=== PATIENT | female | born 1930 | race Caucasian/White ===

== ENCOUNTER 2016-08-21 13:18 | Inpatient (IN) | payer OTHER ==
[~2016-08-21] VITALS: Ht 149.9 cm; Wt 55.9 kg
[~2016-08-21 13:18] MED LIST: ASPI81TA28 PO; ATOR-14 PO; ATV/1 PO; EPGI10M SC; FRRS300 PO; FURO-85 PO; LEVO75TA5 PO; MAGN400T6 PO; MIRT15TA3 PO; NIFE1TAB53 PO; PANT40TA PO
[2016-08-21] MEDS ORDERED: ONDANSETRON INJ 2 MG/ML 2 ML VIAL IV STA (14:09)
[2016-08-21] MEDS ORDERED: MoRPHine SULFATE 4 MG/ML 1 ML CARP\\VIAL IV STA (14:09)
[2016-08-21] MEDS ORDERED: MoRPHine SULFATE 2 MG/ML CARP ONE (14:13)
[2016-08-21 14:24] LABS: BASO % 0.2 %; BASO ABS # 0.02 K/uL (0-0.2); COMPLETE YES; IG% 0.2 %; LYMPH ABS # 1.14 K/uL (1.2-3.4); MEAN CELL VOLUME 99.3 fL (80-100); MEAN CORPUSCULAR HEMOGLOBIN 33.6 pg (25-34); MEAN CORPUSCULAR HGB CONC 33.8 g/dl (32-36); MEAN PLATELET VOLUME 9.8 fL (7.4-10.4); MONO % 9.7 %; NEUT % 77.9 %; PLATELET COUNT 259 K/uL (130-400); RED BLOOD COUNT 2.92 M/uL (4.2-5.4)
[2016-08-21 14:32] LABS: ALT/SGPT 26 U/L (12-78); AST/SGOT 29 U/L (15-37); BLOOD UREA NITROGEN 30 mg/dl (7-18); BUN/CREATININE RATIO 14.5 (10-20); CALCIUM 8.8 mg/dl (8.5-10.1); CARBON DIOXIDE 24 mmol/L (21-32); CHLORIDE 96 mmol/L (98-107); GLUCOSE 112 mg/dl (70-99); SODIUM 132 mmol/L (136-145)
[2016-08-21 14:36] LABS: INR 1.1 (0.9-1.1); PARTIAL THROMBOPLASTIN RATIO 1.2; PROTHROMBIN TIME (PATIENT) 11.4 SECONDS (9.0-12.0)
[2016-08-21 14:44] LABS: ALKALINE PHOSPHATASE 119 U/L (45-117)
--- NOTE | 2016-08-21 14:53 | DIAGNOSTIC IMAGING REPORT ---
TWO VIEW CHEST CLINICAL HISTORY: Atypical chest pain. Anxiety. FINDINGS: PA and lateral chest radiographs are compared to study dated 06/02/2016. The heart is enlarged and there is atherosclerotic calcification of the thoracic aorta. The pulmonary vasculature is noncongested. Chronic interstitial thickening is similar to previous. There is left basilar consolidation and a small left pleural effusion, new from 06/02/2016. The right lung is grossly clear. There is no pneumothorax. The skeletal structures are osteopenic. Advanced degenerative change and scoliosis is noted in the thoracic spine. IMPRESSION: 1. There is left basilar consolidation and a small left pleural effusion. The appearance is typical for pneumonia. Radiographic follow-up to resolution is recommended. 2. Cardiomegaly without radiographic evidence of congestive failure. Electronically signed by: Oziel Johnson M.D. 08/21/2016 2:51 PM Dictated Date/Time: 08/21/2016 2:45 PM
[2016-08-21] MEDS ORDERED: LEVAQUIN 750MG / 150ML D5W IV STA (14:56)
--- NOTE | 2016-08-21 15:20 | DIAGNOSTIC IMAGING REPORT ---
ABDOMEN AND PELVIS CT WITHOUT CONTRAST CT DOSE: 815.87 mGy.cm HISTORY: Left flank pain. TECHNIQUE: Multiaxial CT images of the abdomen and pelvis were performed without the use of intravenous and oral contrast according to the standard department stone protocol. COMPARISON STUDY: Abdomen and pelvis CT 07/29/2016. FINDINGS: There is a new large pericardial effusion. This measures up to 14 mm in thickness. Aneurysmal dilatation of the ascending thoracic aorta measuring up to 4.5 cm. There are small bilateral pleural effusions. No pneumoperitoneum. No pneumatosis. There is a left hip prosthesis. No acute fractures within the visualized osseous structures. The unenhanced liver, spleen, adrenal glands, and pancreas are unremarkable. Stable bilateral renal hypodense lesions. These are incompletely characterize on this noncontrast study but favor cysts. No renal stones or hydronephrosis. Bladder is not well visualized due to metallic artifact but is likely unremarkable. Gallbladder is not identified and is likely surgically absent. Suboptimal evaluation for bowel pathology due to the lack of intravenous and oral contrast. However, there is no definite bowel wall thickening or obstruction. Colonic diverticulosis. IMPRESSION: 1. No renal stones or hydronephrosis. 2. No definite bowel wall thickening or obstruction. 3. Colonic diverticulosis. 4. Interval development of a large pericardial effusion measuring up to 14 mm in thickness. 5. Interval development of small bilateral pleural effusions. 6. Stable aneurysmal dilatation of the ascending thoracic aorta measuring up to 4.5 cm. Electronically signed by: Akash Santoyo M.D. 08/21/2016 2:58 PM Dictated Date/Time: 08/21/2016 2:40 PM
[2016-08-21 15:55] LABS: MAGNESIUM 2.9 mg/dl (1.8-2.4)
[2016-08-21] MEDS ORDERED: MoRPHine SULFATE 2 MG/ML CARP IV STA (16:39)
[2016-08-21 16:49] LABS: URINE APPEARANCE CLOUDY (CLEAR); URINE BILIRUBIN NEG (NEG); URINE COLOR YELLOW; URINE EPITHELIAL CELL AUTO >30 /lpf (0-5); URINE NITRITE NEG (NEG); URINE SPECIFIC GRAVITY 1.016 (1.000-1.030); UROBILINOGEN NEG (NEG)
[2016-08-21 16:51] LABS: MANUAL MICROSCOPIC REQUIRED? NO; REVIEW REQ? NO
[2016-08-21] MEDS ORDERED: ONDANSETRON INJ 2 MG/ML 2 ML VIAL IV PRN (17:30)
--- NOTE | 2016-08-21 18:17 | History and Physical ---
History & Physical Date & Time of Service: Aug 21, 2016 at 17:53 Chief Complaint: Back Pain, Generally Doesn't Feel Well Primary Care Physician: Yogesh Quevedo III, M.D. History of Present Illness 85 year old female who presents to the ER with reports mid back pain and generally not feeling well. Patient reports the back pain is chronic for her. She reports she started to feel generally sick last night. She reports generalized body aches and chills. She did not take her temperature at home. Patient denies shortness of breath, cough, or sputum production. No chest pain. She denies lightheadedness and dizziness. No abdominal pain, nausea, vomiting, or diarrhea. She reports dysuria. In the ER, patient had CT abd/pelvis for evaluation of renal calculi that was negative for stones however did show a large pericardial effusion. CXR is showing left basilar consolidation. Patient was given Levaquin, morphine, and Zofran. Past Medical/Surgical History Medical Problems: (1) Anemia, chronic disease Status: Chronic (2) Anxiety Status: Chronic (3) CKD (chronic kidney disease), stage IV Status: Chronic (4) GERD (gastroesophageal reflux disease) Status: Chronic (5) H/O echocardiogram Permanent Comment: 03/2015 - EF 60-65%, moderate to severe aortic regurgitation Status: Chronic (6) HLD (hyperlipidemia) Status: Chronic (7) HTN (hypertension) Status: Chronic (8) Hypothyroidism Status: Chronic (9) Palpitations Status: Chronic (10) SIADH (syndrome of inappropriate ADH production) Status: Chronic Surgical Problems: (1) Hx of appendectomy Status: Chronic (2) Hx of cholecystectomy Status: Chronic (3) Hx of dilation and curettage Status: Chronic (4) Status post total hip replacement, left Status: Chronic Family History non contributory due to patient's age Social History Smoking Status: Never Smoker Alcohol Use: none Drug Use: none Marital Status: Housing status: lives with significant other Immunizations History of Influenza Vaccine: Yes Influenza Vaccine Date: Apr 24, 2016 History of Tetanus Vaccine?: Yes Tetanus Immunization Date: Oct 05, 2007 History of Pneumococcal: Yes Pneumococcal Date: Apr 24, 2016 Multi-Drug Resistant Organisms History of MDRO: No Allergies Coded Allergies: Penicillins (Verified Allergy, Intermediate, HIVES, 08/21/16) Iron Sucrose (Unverified Adverse Reaction, Mild, n&v, abd pain, 08/21/16) Home Medications Scheduled Aspirin (Aspirin Ec), 81 MG PO DAILY Atorvastatin (Lipitor), 10 MG PO DAILY Epoetin Rafael (Procrit), 10,000 UNITS SC [id number] Ferrous Sulfate (Ferrous Sulfate), 325 MG PO BID Furosemide (Lasix), 20 MG PO Q2D Levothyroxine Sodium (Levothyroxine Sodium), 75 MCG PO DAILY Magnesium Oxide (Mag-Ox), 400 MG PO DAILY Mirtazapine (Remeron), 7.5 MG PO HS Nifedipine (Nifedipine Er), 1 TAB PO DAILY Pantoprazole (Protonix), 40 MG PO DAILY Scheduled PRN Lorazepam (Ativan), 1 MG PO TID PRN for Anxiety Review of Systems 10 point review of systems was completed with the pertinent positives and negatives noted per the HPI Physical Exam Vital Signs Date Time Temp Pulse Resp B/P Pulse Ox O2 Delivery O2 Flow Rate FiO2 08/21/16 16:27 97 18 134/65 93 Room Air 08/21/16 15:31 88 08/21/16 15:27 89 18 119/52 93 Room Air 08/21/16 13:24 37.1 103 18 158/65 94 Room Air General Appearance: no apparent distress Head: normocephalic Eyes: normal inspection ENT: hearing grossly normal Neck: supple, no JVD Respiratory/Chest: no respiratory distress, + decreased breath sounds Cardiovascular: regular rate, rhythm, no edema, normal peripheral pulses Abdomen/GI: normal bowel sounds, non tender, soft Extremities/Musculoskelatal: normal inspection, no calf tenderness Neurologic/Psych: no motor/sensory deficits, alert, normal mood/affect, oriented x 3 Skin: normal color, warm/dry Diagnostics Laboratory Results Results Past 24 Hours Test 08/21/16 14:00 08/21/16 16:30 Range/Units White Blood Count 9.50 4.8-10.8 K/uL Red Blood Count 2.92 4.2-5.4 M/uL Hemoglobin 9.8 12.0-16.0 g/dL Hematocrit 29.0 37-47 % Mean Corpuscular Volume 99.3 80-100 fL Mean Corpuscular Hemoglobin 33.6 25-34 pg Mean Corpuscular Hemoglobin Concent 33.8 32-36 g/dl Platelet Count 259 130-400 K/uL Mean Platelet Volume 9.8 7.4-10.4 fL Neutrophils (%) (Auto) 77.9 % Lymphocytes (%) (Auto) 12.0 % Monocytes (%) (Auto) 9.7 % Eosinophils (%) (Auto) 0.0 % Basophils (%) (Auto) 0.2 % Neutrophils # (Auto) 7.40 1.4-6.5 K/uL Lymphocytes # (Auto) 1.14 1.2-3.4 K/uL Monocytes # (Auto) 0.92 0.11-0.59 K/uL Eosinophils # (Auto) 0.00 0-0.5 K/uL Basophils # (Auto) 0.02 0-0.2 K/uL RDW Standard Deviation 50.5 36.4-46.3 fL RDW Coefficient of Variation 14.0 11.5-14.5 % Immature Granulocyte % (Auto) 0.2 % Immature Granulocyte # (Auto) 0.02 0.00-0.02 K/uL Prothrombin Time 11.4 9.0-12.0 SECONDS Prothromb Time International Ratio 1.1 0.9-1.1 Activated Partial Thromboplast Time 31.3 21.0-31.0 SECONDS Partial Thromboplastin Ratio 1.2 Sodium Level 132 136-145 mmol/L Potassium Level 5.0 3.5-5.1 mmol/L Chloride Level 96 98-107 mmol/L Carbon Dioxide Level 24 21-32 mmol/L Anion Gap 12.0 3-11 mmol/L Blood Urea Nitrogen 30 7-18 mg/dl Creatinine 2.10 0.60-1.20 mg/dl Est Creatinine Clear Calc Drug Dose 15.4 ml/min Estimated GFR () 24.3 Estimated GFR (Non- 20.9 BUN/Creatinine Ratio 14.5 10-20 Random Glucose 112 70-99 mg/dl Calcium Level 8.8 8.5-10.1 mg/dl Magnesium Level 2.9 1.8-2.4 mg/dl Total Bilirubin 0.6 0.2-1 mg/dl Direct Bilirubin 0.2 0-0.2 mg/dl Aspartate Amino Transf (AST/SGOT) 29 15-37 U/L Alanine Aminotransferase (ALT/SGPT) 26 12-78 U/L Alkaline Phosphatase 119 45-117 U/L Troponin I < 0.015 0-0.045 ng/ml Total Protein 7.6 6.4-8.2 gm/dl Albumin 3.3 3.4-5.0 gm/dl Lipase 297 73-393 U/L Thyroid Stimulating Hormone (TSH) 2.600 0.300-4.500 uIu/ml Free Thyroxine 1.64 0.80-1.60 ng/dl Urine Color YELLOW Urine Appearance CLOUDY CLEAR Urine pH 5.0 4.5-7.5 Urine Specific [place] 1.016 1.000-1.030 Urine Protein 1+ NEG Urine Glucose (UA) NEG NEG Urine Ketones NEG NEG Urine Occult Blood NEG NEG Urine Nitrite NEG NEG Urine Bilirubin NEG NEG Urine Urobilinogen NEG NEG Urine Leukocyte Esterase LARGE NEG Urine WBC (Auto) >30 0-5 /hpf Urine RBC (Auto) 0-4 0-4 /hpf Urine Hyaline Casts (Auto) 5-10 0-5 /lpf Urine Epithelial Cells (Auto) >30 0-5 /lpf Urine Bacteria (Auto) NEG NEG Microbiology Results 08/21/16 Blood Culture, Received Pending 08/21/16 Blood Culture, Received Pending Diagnostic Radiology CXR IMPRESSION: 1. There is left basilar consolidation and a small left pleural effusion. The appearance is typical for pneumonia. Radiographic follow-up to resolution is recommended. 2. Cardiomegaly without radiographic evidence of congestive failure. CT ABD/PELVIS IMPRESSION: 1. No renal stones or hydronephrosis. 2. No definite bowel wall thickening or obstruction. 3. Colonic diverticulosis. 4. Interval development of a large pericardial effusion measuring up to 14 mm in thickness. 5. Interval development of small bilateral pleural effusions. 6. Stable aneurysmal dilatation of the ascending thoracic aorta measuring up to 4.5 cm. Impression Assessment and Plan PNEUMONIA - admit to tele - no signs of sepsis, no hypoxia - s/p Levaquin in ED, will continue with - sputum and blood cultures PERICARDIAL EFFUSION - incidental finding on CT abd/pelvis; large, 14mm - asymptomatic, no shortness of breath, BP stable - discussed with Dr. Hurst, will get echo tonight ATRIAL FLUTTER, RESOLVED - on arrival, patient was in atrial flutter with controlled rate - during my exam, patient converted to NSR - further recommendations as per cardio ABNORMAL U/A - ? UTI - on Levaquin for pneumonia, which will cover urinary source as well - last urine culture grew gutierrez sensitive E. Coli CKD STAGE IV - baseline creat runs in the high 1's - low 2's - noted to be 2.1 today - continue to monitor, avoid nephrotoxic agents when able SIADH - Na+ levels stable CHRONIC ANEMIA - due to CKD, receives Procrit injections - hgb at baseline HTN - BP stable, continue Nifedipine HYPOTHYROIDISM - TSH WNL - continue levothyroxine THORACIC AORTIC ANEURYSM - stable on CT abd today - continue to monitor as an outpatient DVT PROPHYLAXIS - SCDs for now until work up for pericardial effusion completed CODE STATUS - Patient is a full code as per my discussion with her. DISPO - In my clinical judgment this beneficiary meets acute admission criteria, established by [facility], that includes being hospitalized through two midnights. ATTENDING NOTE Patient seen & examined at bedside. Reviewed the above History/Physical and confirmed all the findings in person. Patient comes in with vague symptoms and is found to have LLL Pneumonia and significant Pericardial effusion. Does not seem to be hemodynamically compromised. Urgent Echocardiogram has been ordered. Dr. Hurst will see the patient. Started Levaquin for Pneumonia and possible UTI. Patient has Atrial Flutter with controlled heart rate. Patient is FULL CODE. DVT Prophylaxis: SCDs. Natan Mckeon MD Level of Care Telemetry Resuscitation Status FULL RESUSCITATION VTE Prophylaxis VTE Risk Assessment Done? Y/N: Yes Risk Level: Moderate Given or contraindicated: SCD's
--- NOTE | 2016-08-21 19:46 | ECHOCARDIOGRAM REPORT ---
*NOTICE TO RECEIVING CONSTITUTION PARTY AGENCY This information is strictly Confidential and protected under [place] law. [place] law prohibits you from making any further disclosure of this information unless further disclosure is expressly permitted by the written consent of the person to whom it pertains or is authorized by law. A general authorization for the release of medical or other information is not sufficient for this purpose. Hospital accepts no responsibility if the information is made available to any other person, INCLUDING THE PATIENT. Interpretation Summary * Name: APOLONIA ROMERO Study Date: 08/21/2016 07:16 PM BP: 104/50 mmHg * Patient Location: [facility] HR: 89 * : 1930 (M/d/yyyy) Gender: Female Height: 59 in * Age: 85 yrs Ethnicity: CA Weight: 132 lb * Ordering Physician: Yasir Hurst DO * Performed By: Maria T Barrett RDCS * * Reason For Study: Pericardial Effusion * BSA: 1.5 m2 * -- Conclusions -- * Small to medium sized pericardial effusion. * There are no echocardiographic indications of cardiac tamponade. * The pericardial space suggests organizing pericardial effusion. * The left ventricle is normal in size. * There is moderate concentric left ventricular hypertrophy. * Ejection Fraction = 55-60%. * The right ventricle is normal size. * The left atrial size is normal. * Right atrial size is normal. * Mild aortic regurgitation. Procedure Details * A complete two-dimensional transthoracic echocardiogram was performed (2D, M-mode, Doppler and color flow Doppler). Left Ventricle * The left ventricle is normal in size. * There is moderate concentric left ventricular hypertrophy. * Ejection Fraction = 55-60%. * Left ventricular systolic function is normal. * The left ventricular wall motion is normal. Right Ventricle * The right ventricle is normal size. * The right ventricular systolic function is normal. Atria * The left atrial size is normal. * Right atrial size is normal. * The interatrial septum is intact with no evidence for an atrial septal defect. Mitral Valve * The mitral valve is grossly normal. * Significant mitral regurgitation is absent. Tricuspid Valve * The tricuspid valve anatomy is normal. * Significant tricuspid regurgitation is absent. Aortic Valve * The aortic valve is tricuspid. The leaflet thickness if normal. There is no aortic stenosis, and no significant insufficiency. * Mild aortic regurgitation. Great Vessels * The aortic root and proximal ascending aorta are normal sized. Pericardium/Pleural * Small to medium sized pericardial effusion. * There are no echocardiographic indications of cardiac tamponade. * The pericardial space suggests organizing pericardial effusion. MMode 2D Measurements and Calculations IVSd 1.1 cm IVSs 1.2 cm LVIDd 3.3 cm LVIDs 2.3 cm LVPWd 0.95 cm LVPWs 1.7 cm IVS/LVPW 1.2 FS 30.8 % EDV(Teich) 43.7 ml ESV(Teich) 17.6 ml EF(Teich) 59.7 % EDV(cubed) 35.5 ml ESV(cubed) 11.8 ml EF(cubed) 66.9 % % IVS thick 7.7 % % LVPW thick 81.8 % LV mass(C)d 98.0 grams LV mass(C)dI 63.4 grams/m\S\2 LV mass(C)s 107.4 grams LV mass(C)sI 69.5 grams/m\S\2 SV(Teich) 26.1 ml SI(Teich) 16.9 ml/m\S\2 SV(cubed) 23.8 ml SI(cubed) 15.4 ml/m\S\2 Ao root diam 2.8 cm Ao root area 6.1 cm\S\2 ACS 1.5 cm LA dimension 2.8 cm asc Aorta Diam 3.6 cm LA/Ao 10 LVAd ap4 19.3 cm\S\2 LVLd ap4 7.2 cm EDV(MOD-sp4) 47.3 ml EDV(sp4-el) 44.0 ml LVAs ap4 11.7 cm\S\2 LVLs ap4 6.2 cm ESV(MOD-sp4) 22.6 ml ESV(sp4-el) 18.8 ml EF(MOD-sp4) 52.3 % EF(sp4-el) 57.3 % LVAd ap2 17.7 cm\S\2 LVLd ap2 7.4 cm EDV(MOD-sp2) 36.8 ml EDV(sp2-el) 35.8 ml LVAs ap2 10.3 cm\S\2 LVLs ap2 5.8 cm ESV(MOD-sp2) 17.4 ml ESV(sp2-el) 15.4 ml EF(MOD-sp2) 52.8 % EF(sp2-el) 56.8 % LVLd %diff 3.5 % EDV(MOD-bp) 41.5 ml LVLs %diff -7.15 % ESV(MOD-bp) 20.2 ml EF(MOD-bp) 51.4 % SV(MOD-sp4) 24.8 ml SI(MOD-sp4) 16.0 ml/m\S\2 SV(MOD-sp2) 19.4 ml SI(MOD-sp2) 12.6 ml/m\S\2 SV(MOD-bp) 21.3 ml SI(MOD-bp) 13.8 ml/m\S\2 SV(sp4-el) 25.2 ml SI(sp4-el) 16.3 ml/m\S\2 SV(sp2-el) 20.3 ml SI(sp2-el) 13.2 ml/m\S\2 Doppler Measurements and Calculations MV E max libby 48.0 cm/sec MV A max libby 78.2 cm/sec MV E/A 0.61 MV dec time 0.22 sec Ao V2 max 164.8 cm/sec Ao max PG 10.9 mmHg Ao max PG (full) 6.3 mmHg AI max libby 378.8 cm/sec AI max PG 57.5 mmHg AI dec slope 396.1 cm/sec\S\2 AI P1/2t 280.1 msec LV V1 max PG 4.6 mmHg LV V1 max 107.3 cm/sec PA V2 max 73.4 cm/sec PA max PG 2.2 mmHg PI max libby 76.0 cm/sec PI max PG 2.3 mmHg PI dec slope 124.2 cm/sec\S\2 PI P1/2t 179.2 msec TR max libby 193.6 cm/sec
[2016-08-21] MEDS ORDERED: LEVOFLOXACIN CONSULT ACTIVE PRN (19:49)
[2016-08-21 20:16] VITALS: BP 128/70; PULSE 88; TEMP 37.5; O2SAT 94; Ht 149.9 cm; Wt 55.9 kg
[2016-08-21] MEDS: FUROSEMIDE 20 MG TAB PO SCH (20:47)
[2016-08-21] MEDS: LORAZEPAM 1 MG TAB PO PRN (20:47)
[2016-08-21] MEDS: MIRTAZAPINE TAB 15 MG TAB PO SCH (20:48)
[2016-08-21] MEDS: ACETAMINOPHEN 325 MG TAB PO PRN (20:48)
[2016-08-21] MEDS: FERROUS SULFATE 325 MG TAB PO SCH (20:48)
--- NOTE | 2016-08-21 20:53 | EMERGENCY ROOM VISIT NOTE ---
History Report prepared by Unique: Bayron Velázquez Under the Supervision of: Dr. Leon Fry M.D. First contact with patient: 13:58 Chief Complaint: PAIN (GENERALIZED) Stated Complaint: PAIN, ANXIETY History of Present Illness The patient is an 85 year old female who presents to the Emergency Room with complaints of persistent left-sided abdominal pain that started yesterday. The patient describes the discomfort as an ache. She notes that she tried using a heating pad at home and this relieved her symptoms a little. The discomfort is also worse with movement. It radiates to her back. The patient also complains of urinary symptoms including less frequency and burning when she urinates. The patient denies a recent fall, cold symptoms, chest pain, shortness of breath. vomiting, diarrhea, or cough. She did have some shortness of breath last night but she thinks it was secondary to the pain. Source of History: patient Onset: yesterday Position: abdomen (LLQ) Quality: ache Timing: other (persistent) Modifying Factors (Worsening): movement Modifying Factors (Relieving): other (heating pad) Associated Symptoms: + urinary symptoms (less frequency and burning with urination), No SOB, No chest pain, No cough, No diarrhea, No vomiting Note: Denies: recent fall or cold symptoms Review of Systems See HPI for pertinent positives & negatives. A total of 10 systems reviewed and were otherwise negative. Past Medical & Surgical Medical Problems: (1) Anemia, chronic disease (2) Anxiety (3) CKD (chronic kidney disease), stage IV (4) GERD (gastroesophageal reflux disease) (5) H/O echocardiogram (6) HLD (hyperlipidemia) (7) HTN (hypertension) (8) Hypothyroidism (9) Palpitations (10) SIADH (syndrome of inappropriate ADH production) Surgical Problems: (1) Hx of appendectomy (2) Hx of cholecystectomy (3) Hx of dilation and curettage (4) Status post total hip replacement, left Family History FHx: heart disease Hypertension Social History Smoking Status: Never Smoker Alcohol Use: none Drug Use: none Marital Status: Housing Status: lives with family Occupation Status: retired Current/Historical Medications Scheduled Aspirin (Aspirin Ec), 81 MG PO DAILY Atorvastatin (Lipitor), 10 MG PO DAILY Epoetin Rafael (Procrit), 10,000 UNITS SC [id number] Ferrous Sulfate (Ferrous Sulfate), 325 MG PO BID Furosemide (Lasix), 20 MG PO Q2D Levothyroxine Sodium (Levothyroxine Sodium), 75 MCG PO DAILY Magnesium Oxide (Mag-Ox), 400 MG PO DAILY Mirtazapine (Remeron), 7.5 MG PO HS Nifedipine (Nifedipine Er), 1 TAB PO DAILY Pantoprazole (Protonix), 40 MG PO DAILY Scheduled PRN Lorazepam (Ativan), 1 MG PO TID PRN for Anxiety Allergies Coded Allergies: Penicillins (Verified Allergy, Intermediate, HIVES, 08/21/16) Iron Sucrose (Unverified Adverse Reaction, Mild, n&v, abd pain, 08/21/16) Physical Exam Vital Signs Date Time Temp Pulse Resp B/P Pulse Ox O2 Delivery O2 Flow Rate FiO2 08/21/16 16:27 97 18 134/65 93 Room Air 08/21/16 15:31 88 08/21/16 15:27 89 18 119/52 93 Room Air 08/21/16 13:24 37.1 103 18 158/65 94 Room Air Physical Exam Constitutional: Vital signs reviewed. Eyes: Pupils are equal round reactive to light. Conjunctiva are noninjected. ENT: Pharynx is clear without erythema or exudate. Mucous membranes are moist. Neck supple without meningeal signs. Respiratory: Clear to auscultation bilaterally. Breath sounds are equal bilaterally. Cardiovascular: Regular rate and rhythm. No rubs or gallops. GI: Soft, nondistended with mild tenderness to the left mid abdomen. Bowel sounds are present. Musculoskeletal: No CVA tenderness. No lower extremity tenderness. Integumentary: No cyanosis. Neurological: The patient is awake and alert. No focal deficits. Psychiatric: Anxious appearing. Medical Decision & Procedures ER Provider Diagnostic Interpretation: Other radiology results as stated below per my review and the radiologist's interpretation: TWO VIEW CHEST CLINICAL HISTORY: Atypical chest pain. Anxiety. FINDINGS: PA and lateral chest radiographs are compared to study dated 06/02/2016. The heart is enlarged and there is atherosclerotic calcification of the thoracic aorta. The pulmonary vasculature is noncongested. Chronic interstitial thickening is similar to previous. There is left basilar consolidation and a small left pleural effusion, new from 06/02/2016. The right lung is grossly clear. There is no pneumothorax. The skeletal structures are osteopenic. Advanced degenerative change and scoliosis is noted in the thoracic spine. IMPRESSION: 1. There is left basilar consolidation and a small left pleural effusion. The appearance is typical for pneumonia. Radiographic follow-up to resolution is recommended. 2. Cardiomegaly without radiographic evidence of congestive failure. Electronically signed by: Oziel Johnson M.D. 08/21/2016 2:51 PM Dictated Date/Time: 08/21/2016 2:45 PM ABDOMEN AND PELVIS CT WITHOUT CONTRAST CT DOSE: 815.87 mGy.cm HISTORY: Left flank pain. TECHNIQUE: Multiaxial CT images of the abdomen and pelvis were performed without the use of intravenous and oral contrast according to the standard department stone protocol. COMPARISON STUDY: Abdomen and pelvis CT 07/29/2016. FINDINGS: There is a new large pericardial effusion. This measures up to 14 mm in thickness. Aneurysmal dilatation of the ascending thoracic aorta measuring up to 4.5 cm. There are small bilateral pleural effusions. No pneumoperitoneum. No pneumatosis. There is a left hip prosthesis. No acute fractures within the visualized osseous structures. The unenhanced liver, spleen, adrenal glands, and pancreas are unremarkable. Stable bilateral renal hypodense lesions. These are incompletely characterize on this noncontrast study but favor cysts. No renal stones or hydronephrosis. Bladder is not well visualized due to metallic artifact but is likely unremarkable. Gallbladder is not identified and is likely surgically absent. Suboptimal evaluation for bowel pathology due to the lack of intravenous and oral contrast. However, there is no definite bowel wall thickening or obstruction. Colonic diverticulosis. IMPRESSION: 1. No renal stones or hydronephrosis. 2. No definite bowel wall thickening or obstruction. 3. Colonic diverticulosis. 4. Interval development of a large pericardial effusion measuring up to 14 mm in thickness. 5. Interval development of small bilateral pleural effusions. 6. Stable aneurysmal dilatation of the ascending thoracic aorta measuring up to 4.5 cm. Electronically signed by: Akash Santoyo M.D. 08/21/2016 2:58 PM Dictated Date/Time: 08/21/2016 2:40 PM Laboratory Results 08/21/16 14:00 Red Blood Count 2.92, Mean Corpuscular Volume 99.3, Mean Corpuscular Hemoglobin 33.6, Mean Corpuscular Hemoglobin Concent 33.8, Mean Platelet Volume 9.8, Neutrophils (%) (Auto) 77.9, Lymphocytes (%) (Auto) 12.0, Monocytes (%) (Auto) 9.7, Eosinophils (%) (Auto) 0.0, Basophils (%) (Auto) 0.2, Neutrophils # (Auto) 7.40, Lymphocytes # (Auto) 1.14, Monocytes # (Auto) 0.92, Eosinophils # (Auto) 0.00, Basophils # (Auto) 0.02 08/21/16 14:00 Test 08/21/16 14:00 08/21/16 16:30 White Blood Count 9.50 K/uL (4.8-10.8) Red Blood Count 2.92 M/uL (4.2-5.4) Hemoglobin 9.8 g/dL (12.0-16.0) Hematocrit 29.0 % (37-47) Mean Corpuscular Volume 99.3 fL (80-100) Mean Corpuscular Hemoglobin 33.6 pg (25-34) Mean Corpuscular Hemoglobin Concent 33.8 g/dl (32-36) Platelet Count 259 K/uL (130-400) Mean Platelet Volume 9.8 fL (7.4-10.4) Neutrophils (%) (Auto) 77.9 % Lymphocytes (%) (Auto) 12.0 % Monocytes (%) (Auto) 9.7 % Eosinophils (%) (Auto) 0.0 % Basophils (%) (Auto) 0.2 % Neutrophils # (Auto) 7.40 K/uL (1.4-6.5) Lymphocytes # (Auto) 1.14 K/uL (1.2-3.4) Monocytes # (Auto) 0.92 K/uL (0.11-0.59) Eosinophils # (Auto) 0.00 K/uL (0-0.5) Basophils # (Auto) 0.02 K/uL (0-0.2) RDW Standard Deviation 50.5 fL (36.4-46.3) RDW Coefficient of Variation 14.0 % (11.5-14.5) Immature Granulocyte % (Auto) 0.2 % Immature Granulocyte # (Auto) 0.02 K/uL (0.00-0.02) Erythrocyte Sedimentation Rate 44 mm/hr (0-21) Prothrombin Time 11.4 SECONDS (9.0-12.0) Prothromb Time International Ratio 1.1 (0.9-1.1) Activated Partial Thromboplast Time 31.3 SECONDS (21.0-31.0) Partial Thromboplastin Ratio 1.2 Anion Gap 12.0 mmol/L (3-11) Est Creatinine Clear Calc Drug Dose 15.4 ml/min Estimated GFR () 24.3 Estimated GFR (Non- 20.9 BUN/Creatinine Ratio 14.5 (10-20) Calcium Level 8.8 mg/dl (8.5-10.1) Magnesium Level 2.9 mg/dl (1.8-2.4) Total Bilirubin 0.6 mg/dl (0.2-1) Direct Bilirubin 0.2 mg/dl (0-0.2) Aspartate Amino Transf (AST/SGOT) 29 U/L (15-37) Alanine Aminotransferase (ALT/SGPT) 26 U/L (12-78) Alkaline Phosphatase 119 U/L (45-117) Troponin I < 0.015 ng/ml (0-0.045) Total Protein 7.6 gm/dl (6.4-8.2) Albumin 3.3 gm/dl (3.4-5.0) Lipase 297 U/L (73-393) Thyroid Stimulating Hormone (TSH) 2.600 uIu/ml (0.300-4.500) Free Thyroxine 1.64 ng/dl (0.80-1.60) Urine Color YELLOW Urine Appearance CLOUDY (CLEAR) Urine pH 5.0 (4.5-7.5) Urine Specific Conklin 1.016 (1.000-1.030) Urine Protein 1+ (NEG) Urine Glucose (UA) NEG (NEG) Urine Ketones NEG (NEG) Urine Occult Blood NEG (NEG) Urine Nitrite NEG (NEG) Urine Bilirubin NEG (NEG) Urine Urobilinogen NEG (NEG) Urine Leukocyte Esterase LARGE (NEG) Urine WBC (Auto) >30 /hpf (0-5) Urine RBC (Auto) 0-4 /hpf (0-4) Urine Hyaline Casts (Auto) 5-10 /lpf (0-5) Urine Epithelial Cells (Auto) >30 /lpf (0-5) Urine Bacteria (Auto) NEG (NEG) Laboratory results as reviewed by me. Medications Administered Medications (Trade) Dose Ordered Sig/Jassi Route Start Time Stop Time Status Last Admin Dose Admin Ondansetron HCl (Zofran Inj) 4 mg NOW STAT IV 08/21/16 14:09 08/21/16 14:11 DC 08/21/16 14:17 4 MG Morphine Sulfate (MoRPHine SULFATE INJ) 2 mg STK-MED ONCE .ROUTE 08/21/16 14:13 08/21/16 14:14 DC 08/21/16 14:18 2 MG Levofloxacin (Levaquin / D5W) 750 mg NOW STAT IV 08/21/16 14:56 08/21/16 14:59 DC 08/21/16 15:27 750 MG Morphine Sulfate (MoRPHine SULFATE INJ) 2 mg NOW STAT IV 08/21/16 16:39 08/21/16 16:40 DC 08/21/16 16:49 2 MG ECG Indication: abdominal pain Rate (beats per minute): 103 Rhythm: atrial flutter Findings: PVC, other (non-specific t-wave changes) ED Course 1400: The patient was evaluated in room A12. A complete history and physical exam was performed. 1409: Ordered Zofran Inj 4 mg IV, Morphine Sulfate 2 mg IV. 1413: Ordered Morphine Sulfate 2 mg .ROUTE. 1456: Ordered Levofloxacin 750 mg IV. 1530: At this time, I reevaluated the patient and discussed the test results with her. She agreed to stay in the hospital. 1625: At this time, I discussed the patient's case with Dr. Mckeon - Blayne Tracy and he agreed to accept the patient for further evaluation. Medical Decision this is an 85-year-old female presents with left flank pain.differential diagnosis includes strain, pyelonephritis, UTI, kidney stone, pneumonia, cardiac. I did perform a limited focused review of portions of the patient's old chart on the electronic medical record. The patient was admitted on July 29 for generalized weakness and viral gastroenteritis. She has a baseline creatine of 2 and anemia on chronic disease. She had a CT of abdomen/ pelvis scan which was nonspecific. I did evaluate the patient as noted above. She is presenting with left-sided flank pain which seems to be better with heating pads and worse with movement. She did have some shortness of breath yesterday but denies it today. IV access was established. The patient was placed on a continuous pvc monitor. I did treat her with IV Zofran and morphine. I did order and personally review the patient's 12-lead EKG and chest x-ray as described above. She does have a new onset atrial flutter. She does appear to have a left-sided pneumonia. I did order blood cultures and she was treated with IV Levaquin. I did order and review the patient's blood work as noted in the electronic medical record. She does have chronic anemia. She does have hyponatremia. I did order a CT of the abdomen and pelvis. I did review the images myself as well as the radiology report as described above. CT scan demonstrates pleural effusions as well as a pericardial effusion. I did discuss the test results with the patient. She had continued pain and was given additional IV morphine. I did discuss the case with the hospitalist and employment case manager. Consults Time Called: 1620 Consulting Physician: Dr. Mckeon - Hospitalist Rossana Returned Call: 1625 At this time, I discussed the patient's case with Dr. Mckeon and he agreed to accept the patient for further evaluation. Impression Primary Impression: Pneumonia involving left lung Additional Impressions: New onset atrial flutter Pericardial effusion Bilateral pleural effusion Scribe Attestation The scribe's documentation has been prepared under my direct and personally reviewed by me in its entirety. I confirm that the note above accurately reflects all work, treatment, procedures, and medical decision making performed by me. Departure Information Dispostion Being Evaluated By Hospitalist Referrals Yogesh Quevedo III, M.D. (PCP) Problem Qualifiers Primary Impression: Pneumonia involving left lung Pneumonia type: due to unspecified organism Lung location: lower lobe of lung Qualified Codes: J18.9 - Pneumonia, unspecified organism
[2016-08-21 23:51] VITALS: BP 123/67; PULSE 83; TEMP 36.5; O2SAT 98
[2016-08-22] VITALS (7 sets, daily range): BP systolic 107–137; BP diastolic 57–76; PULSE 68–92; TEMP 36.7–37.1; O2SAT 94–99
[2016-08-22] MEDS ORDERED: SODIUM CHLORIDE 0.9% 500ML 500 ML IV STA (04:56)
[2016-08-22] MEDS ORDERED: NURSING VERBAL MED ORDER ONE (05:00)
[2016-08-22] MEDS: LEVOTHYROXINE 75 MCG TAB PO SCH (05:01)
[2016-08-22 06:00] LABS: BUN/CREATININE RATIO 14.5 (10-20); CALCIUM 8.4 mg/dl (8.5-10.1); CREATININE 2.5 mg/dl (0.60-1.20); POTASSIUM 5.6 mmol/L (3.5-5.1)
[2016-08-22 06:54] LABS: HEMATOCRIT 25.5 % (37-47); MEAN CORPUSCULAR HEMOGLOBIN 33.3 pg (25-34); MEAN PLATELET VOLUME 9.9 fL (7.4-10.4); PLATELET COUNT 200 K/uL (130-400); RED BLOOD COUNT 2.55 M/uL (4.2-5.4); WHITE BLOOD COUNT 8.76 K/uL (4.8-10.8)
[2016-08-22 07:01] LABS: MEAN CORPUSCULAR HGB CONC 33.3 g/dl (32-36)
[2016-08-22] MEDS: FERROUS SULFATE 325 MG TAB PO SCH ×2 (07:41→20:04)
[2016-08-22] MEDS: ATORVASTATIN 10 MG TAB PO SCH (07:41)
[2016-08-22] MEDS: ASPIRIN 81 MG ECTAB PO SCH (07:41)
[2016-08-22] MEDS: MAGNESIUM OXIDE 400 MG TAB PO SCH (07:42)
[2016-08-22] MEDS: PANTOprazole SOD 40 MG TAB PO SCH (07:42)
[2016-08-22] MEDS: ACETAMINOPHEN 325 MG TAB PO PRN ×2 (07:42→18:25)
[2016-08-22] MEDS ORDERED: NIFEdipine 30 MG CR TAB PO SCH (09:00)
[2016-08-22] MEDS ORDERED: METOPROLOL TARTRATE 25 MG TAB PO STA (09:26)
[2016-08-22] MEDS ORDERED: METOPROLOL TARTRATE 1 MG/ML VIAL IV PRN (09:30)
[2016-08-22] MEDS: LORAZEPAM 1 MG TAB PO PRN ×2 (11:41→20:07)
--- NOTE | 2016-08-22 12:08 | CARDIOLOGY CONSULTATION ---
DATE OF CONSULTATION: 08/22/2016 REFERRING PHYSICIAN: Rossana hudson. REASON FOR CONSULTATION: Pericardial effusion. HISTORY OF PRESENT ILLNESS: This is an 85-year-old female who denies any previous past cardiac history. She lives independently and had been in a good state of health until yesterday, she began to have generalized body aches and nonspecific complaints. A CT of the abdomen was obtained and the interpretation by the radiologist was that there was large pericardial effusion. An echocardiogram was completed last night, which I reviewed immediately and the pericardial effusion is small to medium sized at best. No evidence of cardiac tamponade and the appearance of the pericardial effusion is organized, which means that it has been there for a while. Her chest x-ray suggests possible pneumonia and the patient has been started on antibiotics. She has had no fever, chills or productive cough. She was admitted in atrial flutter and then converted to normal sinus and now she is back in atrial flutter with controlled heart rate. She has no cardiac complaints. She denies pleuritic chest pain. She has not had any shortness of breath. No dizziness or lightheadedness. She denies heart palpitations or tachycardia. ALLERGIES: IRON AND PENICILLIN. PAST MEDICAL HISTORY: As outlined above, the patient has no significant cardiac history. She does have a history of chronic kidney disease with anemia. No prior history of diabetes or strokes. She has been treated for hypothyroidism and hypertension. FAMILY MEDICAL HISTORY: Noncontributory. SOCIAL HISTORY: The patient is a lifelong nonsmoker. REVIEW OF SYSTEMS: A 10-point review of systems is negative except for the history of chief complaint. PHYSICAL EXAMINATION: GENERAL: She is alert and oriented. VITAL SIGNS: Blood pressure is 130/60 and pulse is regular at 97. She is afebrile. HEENT: She is normocephalic. Pupils are equal and reactive to light. Extraocular muscles are intact bilaterally. NECK: The neck veins are flat. Carotids have good upstrokes bilaterally without bruits. Thyroid is nonpalpable. RESPIRATORY: Breath sounds equal bilaterally and clear to auscultation. CARDIOVASCULAR: Heart has a regular rhythm. Normal S1 and S2. No S3 or S4. No cardiac rubs. GASTROINTESTINAL: Abdomen is soft and nontender without organomegaly. EXTREMITIES: Free of edema, digit clubbing, or cyanosis. NEUROLOGIC: Grossly intact. SKIN: Warm to touch. LYMPH NODES: Negative to palpation. LABORATORY DATA: WBC count is 9.5 and hemoglobin is 9.8. IMPRESSION: 1. Pneumonia by radiographic evidence. 2. Pericardial effusion that appears to be old and organized and asymptomatic per the patient. 3. Paroxysmal atrial flutter. 4. Chronic renal insufficiency. 5. Chronic anemia. RECOMMENDATIONS: I do not believe any immediate treatment other than antibiotics to treat this patient's pneumonia should be given for the pericardial effusion. She does have a chronic anemia and paroxysmal atrial flutter. I would hold off on any full anticoagulation for now and just provide DVT prophylaxis. Her sed rate is a little bit elevated. She does not have a white count elevation, which is troublesome to me with a diagnosis of possible bacterial pneumonia. If her left lower lung consolidation does not improve with antibiotics, then we should consider a pulmonary consult to find other etiologies besides bacterial pneumonia as a cause of the consolidation. I have ordered an NORTH and rheumatoid factor, but they should be of low yield. We will follow along with you during her hospital stay.
--- NOTE | 2016-08-22 16:01 | DIAGNOSTIC IMAGING REPORT ---
CT OF THE CHEST WITHOUT IV CONTRAST CLINICAL HISTORY: Pericardial effusion. COMPARISON STUDY: Chest CT April 06, [address] of the abdomen and pelvis August 21, 2016 CT DOSE: 320.63 mGycm TECHNIQUE: Axial images of the chest were obtained without IV contrast. Images were reviewed in the axial, sagittal, and coronal planes. IV contrast was not administered for this examination. FINDINGS: No enlarged axillary, mediastinal or hilar lymph nodes are present. Dilatation of the thoracic aorta is similar to CT of April 06, 2015. The ascending aorta measures 4.5 cm. Moderate cardiomegaly is noted. A moderate to large pericardial effusion is similar to CT of August 21, 2016. The effusion is low attenuation. The central airways are patent. The lungs are suboptimally assessed due to respiratory motion. Moderate left and small right pleural effusions are present. Associated lingular, bilateral lower lobe opacities favor atelectasis. There is no pneumothorax. No suspicious osseous lesions are shown within the bony thorax. IMPRESSION: 1. Moderate to large pericardial effusion, similar to CT of August 21, 2016. 2. Moderate left and small right pleural effusions with associated lingular and bilateral lower lobe opacities which favor atelectasis. 3. Moderate cardiomegaly. 4. No significant change in aneurysmal dilatation of the ascending aorta since CT of April 06, 2015. Electronically signed by: Hayder Barber M.D. 08/22/2016 3:59 PM Dictated Date/Time: 08/22/2016 3:51 PM
[2016-08-22 18:40] LABS: LYME DISEASE AB IGG NEG (NEG); LYME DISEASE AB IGM NEG (NEG)
[2016-08-22] MEDS: MIRTAZAPINE TAB 15 MG TAB PO SCH (20:05)
[2016-08-22] MEDS: METOPROLOL TARTRATE 25 MG TAB PO SCH (20:05)
--- NOTE | 2016-08-22 21:09 | Progress Note ---
Internal Med Progress Note Date of Service: Aug 22, 2016. Provider Documentation: SUBJECTIVE: feels fine , no complain of SOB , chest pain or LEYVA no orthopnea afebrile denies of cough or respiratory distress feels much better than yesterday OBJECTIVE: Vital Signs-as noted below Exam: General Appearance: elderly female , some what anxious , no apparent distress Head: normocephalic Eyes: normal inspection ENT: hearing grossly normal Neck: supple, no thyromegaly , trachea midline Respiratory/Chest: no respiratory distress, + decreased breath sounds Cardiovascular: regular rate, rhythm, no edema, normal peripheral pulses Abdomen/GI: normal bowel sounds, non tender, soft Extremities/Musculoskeletal: trace bilat lower ext edema Neurologic/Psych: no motor/sensory deficits, alert, normal mood/affect, oriented x 3 Skin: normal color, warm/dry Lab data as noted below. ASSESSMENT & PLAN: PERICARDIAL EFFUSION - incidental finding on CT abd/pelvis; large, 14mm - asymptomatic, no shortness of breath, BP stable - ECHO : Small to medium sized pericardial effusion. There are no echocardiographic indications of cardiac tamponade. The pericardial space suggests organizing pericardial effusion. The left ventricle is normal in size. There is moderate concentric left ventricular hypertrophy. Ejection Fraction = 55-60%. -CT chest : moderate to large pericardial effusion , moderate left and small rt pleural effusions with associated lingular and bilat lower lobe opacities which favor atelectasis _Cardiology consult appreciated -no evidence of cardiac tamponade or hemodynamic compromise monitor in tele given left sided pleural effusion associated with pericardial effusion -need to evaluate for inflammatory /Rheumatoid disease -ordered for NORTH , rheumatoid factor -will have Rheum eval if lab reports are abnormal -ESR mildly elevated PNEUMONIA - Cxary Left lower lobe infiltrate - cont Levaquin - sputum and blood cultures ordered CT chest moderate left and rt sided pleural effusion -Pulmonology eval requested ATRIAL FLUTTER, - paroxysmal atrial flutter with controlled rate -new finding -pt converted to sinus rhythm intermittently no symptom of dizzy spell or lightheadedness HR remains in low 80's -rate controlled -no IV anticoagulation until further evaluation for pericardial effusion - cardiology following -low dose beta maliha added for rhythm control -hold for bradycardia ABNORMAL U/A - ? UTI - on Levaquin for pneumonia, which will cover urinary source as well - last urine culture grew gutierrez sensitive E. Coli -follow urine culture -report pending CKD STAGE IV - baseline creat runs in the high 1's - low 2's - noted to be 2.1 today - continue to monitor, avoid nephrotoxic agents when able -nephrology consulted HYPERKALEMIA: k 5.6 -due to above ordered for Kayexalate keep K level ~ 4 given cardiac arrhythmia /paroxysmal afib /flutter repeat PRP in AM low K diet Nephrology consulted -pt follows with Dr Hwang in put pt SIADH - with chronic hyponatremia -follow PRP CHRONIC ANEMIA - due to CKD, receives Procrit injections - hgb at baseline HTN - BP stable, -hold Nifedipine started on low dose Lopressor 12.5 mg PO BID HYPOTHYROIDISM - TSH WNL - continue levothyroxine THORACIC AORTIC ANEURYSM - stable on CT abd today - continue to monitor as an outpatient DVT PROPHYLAXIS - sub q heparin CODE STATUS - Patient is a full code DVT PROPHYLAXIS sub q heparin DISPOSITION lives at home with and daughter PT/OT eval prior to discharge may need 2 step 02 assessment if continue to require supplemental 02 social service consulted for discharge planning Medicine follow up with Dr Quevedo Vital Signs: Date Time Temp Pulse Resp B/P Pulse Ox O2 Delivery O2 Flow Rate FiO2 08/22/16 20:08 107/62 08/22/16 20:00 Nasal Cannula 1.5 08/22/16 19:04 37.1 92 22 137/57 94 Nasal Cannula 1.5 08/22/16 16:00 Nasal Cannula 2.0 08/22/16 12:00 Nasal Cannula 2.0 08/22/16 11:59 36.7 68 16 124/72 97 Nasal Cannula 2.0 08/22/16 08:00 Nasal Cannula 2.0 08/22/16 07:52 36.8 80 16 117/74 99 Nasal Cannula 2.0 08/22/16 04:20 Nasal Cannula 2.0 08/22/16 04:00 36.8 82 18 128/76 99 Nasal Cannula 2.0 08/22/16 00:10 98 Nasal Cannula 2.0 08/21/16 23:51 36.5 83 18 123/67 98 Nasal Cannula 2.0 Lab Results: Results Past 24 Hours Test 08/22/16 05:10 08/22/16 06:45 08/22/16 11:29 08/22/16 15:17 Range/Units Sodium Level 131 136-145 mmol/L Potassium Level 5.6 3.5-5.1 mmol/L Chloride Level 96 98-107 mmol/L Carbon Dioxide Level 24 21-32 mmol/L Anion Gap 11.0 3-11 mmol/L Blood Urea Nitrogen 36 7-18 mg/dl Creatinine 2.50 0.60-1.20 mg/dl Est Creatinine Clear Calc Drug Dose 12.7 ml/min Estimated GFR () 19.6 Estimated GFR (Non- 17.0 BUN/Creatinine Ratio 14.5 10-20 Random Glucose 81 70-99 mg/dl Calcium Level 8.4 8.5-10.1 mg/dl White Blood Count 8.76 4.8-10.8 K/uL Red Blood Count 2.55 4.2-5.4 M/uL Hemoglobin 8.5 12.0-16.0 g/dL Hematocrit 25.5 37-47 % Mean Corpuscular Volume 100.0 80-100 fL Mean Corpuscular Hemoglobin 33.3 25-34 pg Mean Corpuscular Hemoglobin Concent 33.3 32-36 g/dl RDW Standard Deviation 51.7 36.4-46.3 fL RDW Coefficient of Variation 14.2 11.5-14.5 % Platelet Count 200 130-400 K/uL Mean Platelet Volume 9.9 7.4-10.4 fL Rheumatoid Factor < 10.0 0-15 U/mL Lyme Disease IgG Antibody NEG NEG Lyme Disease IgM Antibody NEG NEG Microbiology Results 08/22/16 Urine Culture, Received Pending
[2016-08-22] MEDS ORDERED: SODIUM POLYST. SULF SUSP 15G/60ML PO STA (21:19)
[2016-08-23] VITALS (12 sets, daily range): BP systolic 114–145; BP diastolic 55–75; PULSE 60–94; TEMP 36.6–37.1; O2SAT 90–95
[2016-08-23] MEDS: ALBUTEROL 0.083% NEBU SOLN 3 ML VIAL INH PRN ×2 (04:00→22:42)
[2016-08-23] MEDS: LEVOTHYROXINE 75 MCG TAB PO SCH (05:17)
[2016-08-23 06:28] LABS: HEMATOCRIT 25.8 % (37-47); MEAN CELL VOLUME 98.1 fL (80-100); MEAN CORPUSCULAR HEMOGLOBIN 33.1 pg (25-34); MEAN CORPUSCULAR HGB CONC 33.7 g/dl (32-36); PLATELET COUNT 214 K/uL (130-400); RED BLOOD COUNT 2.63 M/uL (4.2-5.4); WHITE BLOOD COUNT 8.09 K/uL (4.8-10.8)
[2016-08-23 07:01] LABS: BUN/CREATININE RATIO 15.6 (10-20); CALCIUM 8.2 mg/dl (8.5-10.1); CREATININE 2.9 mg/dl (0.60-1.20); POTASSIUM 4.6 mmol/L (3.5-5.1)
[2016-08-23] MEDS: ACETAMINOPHEN 325 MG TAB PO PRN ×2 (08:25→22:41)
[2016-08-23] MEDS: FERROUS SULFATE 325 MG TAB PO SCH ×2 (08:25→21:07)
[2016-08-23] MEDS: PANTOprazole SOD 40 MG TAB PO SCH (08:25)
[2016-08-23] MEDS: MAGNESIUM OXIDE 400 MG TAB PO SCH (08:26)
[2016-08-23] MEDS: ASPIRIN 81 MG ECTAB PO SCH (08:26)
[2016-08-23] MEDS: ATORVASTATIN 10 MG TAB PO SCH (08:26)
[2016-08-23] MEDS: METOPROLOL TARTRATE 25 MG TAB PO SCH ×2 (08:27→21:08)
[2016-08-23] MEDS ORDERED: EPOETIN ALFA 10,000 UNITS/ML VIAL SQ ONE (11:00)
--- NOTE | 2016-08-23 11:02 | NEPHROLOGY CONSULTATION ---
DATE OF CONSULTATION: 08/23/2016 ATTENDING OF RECORD: Loreto Haywood MD REASON FOR CONSULTATION: CKD and hyponatremia. HISTORY OF PRESENT ILLNESS: This is a 85-year-old female well known to me, who follows with me in my CKD clinic, last seen at the end of April with CKD stage 4 with a baseline creatinine in the high 1's to low 2's with about 150 mg proteinuria with the right kidney at 9.1 cm and the left kidney at 9.3 cm from advanced age and hypertension. The patient had a history of hypertension since age 45. 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 She does not have diabetes. No tobacco, no myeloma. No NSAIDs. She does have anemia of chronic kidney disease and is followed by the anemia clinic and gets Procrit injections 10,000 units every three weeks. The patient states that she has been feeling more tired, does have chronic back pain, but started to have bilateral shoulder pain and just overall worsening fatigue, came into the hospital and found to have a possible urinary tract infection as well as a left pleural effusion with possible underlying pneumonia and was started on Levaquin. Also incidentally found to have pericardial effusion, although asymptomatic from this. The patient during this hospitalization started to have worsening hyponatremia and sodium level has gone from 137 to 126, is on Levaquin which is premixed and I have placed the patient on fluid restriction. The patient did eat her breakfast this morning and is out of bed to the chair. The patient did try to walk around a little bit yesterday as well. PAST MEDICAL HISTORY: CKD stage 4, hypothyroidism, anemia of chronic kidney disease, SIADH, hypertension and anxiety. PAST SURGICAL HISTORY: Appendectomy, cholecystectomy, D\T\C and hysterectomy. FAMILY HISTORY: Significant for a mother with hypertension and daughter with seizures. Mother with heart attack. SOCIAL HISTORY: The patient is . No smoking, no alcohol, no drugs. Lives at home. REVIEW OF SYSTEMS: GENERAL: Weight is stable. Positive for fatigue. No fevers or chills. HEAD: No significant headaches. NECK: No recent swelling in the thyroid area. RESPIRATORY: Denies shortness of breath or cough. CARDIAC: No chest pain or swelling. GASTROINTESTINAL: No nausea, vomiting or belly pain. URINARY: Positive nocturia. MUSCULOSKELETAL: Positive chronic back pain and now with bilateral shoulder pain. NEUROLOGIC: No fainting, seizures or tremors. PSYCHIATRIC: Does have significant anxiety which overall has improved over the past year. SKIN: No rash or itching noted. CURRENT MEDICATIONS: Levaquin 500 mg q 48 hours, Lopressor 12.5 mg p.o. b.i.d., aspirin 81 mg daily, Lipitor 10 mg daily, magnesium 400 mg p.o. daily, Protonix 40 mg daily, Synthroid 75 mcg daily, iron 325 p.o. b.i.d., Remeron 7.5 mg at night and Lasix 20 mg every two days. PHYSICAL EXAMINATION: VITAL SIGNS: Temperature 37, pulse 75, respiratory rate is 20, blood pressure is 116/68 and satting 93% on 4 liters. GENERAL: Awake, alert and oriented x3. EYES: No scleral icterus. ENT: Moist mucous membranes. NECK: Supple. PULMONARY: Decreased breath sounds at the left base. CARDIAC: Regular rhythm. GASTROINTESTINAL: Bowel sounds positive, soft and nontender. EXTREMITIES: Minimal edema. NEUROLOGIC: Nonfocal. DERMATOLOGIC: No rash or ulcers noted. LABORATORIES: White count is 8, H\T\H 8.7 and 25.8, platelet count is 214. Sodium level is 126, potassium is 4.6, chloride is 92, bicarbonate is 24, BUN is 45, creatinine is up to 2.9. Glucose is 96, calcium is 8.2, magnesium 3, albumin 3.3. TSH 2.6. T-bili 0.6. INR is 1.1. UA shows specific gravity of 1.016, 1+ protein, pH of 5, large leukocyte esterase, greater than 30 WBCs. Rheumatoid factor negative. NORTH is pending. Lyme is negative. Chest CT shows moderate to large pericardial effusion, moderate left and small right pleural effusions with bilateral lower lobe opacities which favor atelectasis, moderate cardiomegaly as well as aneurysmal dilatation of the ascending aorta. Abdominal pelvis CT shows no renal stones, colonic diverticulosis and large pericardial effusion. Chest x-ray showed left basilar consolidation and small left pleural effusion typical for pneumonia. There is cardiomegaly without evidence of congestive failure. IMPRESSION: 1. Hyponatremia; sodium levels have gone from 132 down to 126. 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 Thyroid levels are stable. The patient normally drinks 6-1/2 cups of water a day. No role for 3% normal saline, hesitant to give normal saline at this time given her pleural effusions. For now, we will place the patient on 1200 mL fluid restriction. We will recheck the sodium levels later this afternoon. If it continues to worsen, may discuss with the hospitalist about giving normal saline at 50 mL an hour. We will check a urine osmolality to be thorough. The patient is getting Levaquin; however that is premixed, so unable to change formulation. For now, worsening low sodium and we will treat with fluid restriction with intermittent doses of Lasix. Hesitant to give salt tablets and/or normal saline given her pleural effusions and underlying pneumonia. We will monitor for now with the fluid restriction. 2. Acute kidney injury. Creatinine was 2.1 and went to 2.5 yesterday and is now up to 2.9. Appears to have acute kidney injury/acute tubular necrosis in the setting of pneumonia. Continue conservative measures of treating the underlying pneumonia and hopefully creatinine eventually peaks and starts to improve. Appears to be urinating well. No indication for emergent dialysis at this time. 3. Hyperkalemia. Potassium level did go up to 5.6 yesterday and is now down to 4.6. The patient's diet has been reviewed and she is currently on a low potassium diet; we will monitor the potassium levels. 4. Anemia of renal failure. Hemoglobin levels are trending down and I am hesitant to give IV iron in the setting of an infection; however, we will redose the Procrit. So, overall, patient with acute kidney injury on chronic kidney disease with worsening hyponatremia in the setting of a pericardial as well as pleural effusion with possible underlying pneumonia. Although chest x-ray is suggestive of pneumonia, the patient has no fevers, chills and no cough; which makes one wonder if there is another etiology to the pleural effusions. I appreciate the consultation. BRANDON
[2016-08-23] MEDS ORDERED: HEPARIN SOD 5000 UNIT/0.5 ML CARP SQ STA (11:16)
--- NOTE | 2016-08-23 11:48 | PROGRESS NOTE ---
DATE: 08/23/2016 FOLLOWUP VISIT SUBJECTIVE: The patient is an 85-year-old female who we were asked to see due to pericardial effusion noted on a CT scan. The echocardiogram indicates a small to moderate sized effusion which appears to be organized. There is no evidence of tamponade physiology. The patient is having a workup by pulmonology for abnormalities noted on a chest x-ray and possible left lower lobe pneumonia. She has no cardiac complaints today. Most of her complaints are in regard to anorexia, nausea and constipation. On the telemetry, she has mostly sinus rhythm with occasional rate controlled atrial fibrillation. OBJECTIVE: VITAL SIGNS: Blood pressure is 120/70. Pulse is irregular at 75. She is afebrile. GENERAL: She is alert and oriented, sitting in a chair. HEENT: She is normocephalic. Pupils are equal and reactive to light. Extraocular muscles are intact bilaterally. NECK: The neck veins are flat. Carotids have good upstrokes bilaterally without bruits. Thyroid is nonpalpable. RESPIRATORY: Breath sounds equal bilaterally and clear to auscultation. CARDIOVASCULAR: Heart has a regular rhythm. Normal S1, S2. No S3, S4. No cardiac rubs or murmurs. GASTROINTESTINAL: Abdomen is soft, nontender without organomegaly. EXTREMITIES: Free of edema, digital clubbing, or cyanosis. NEUROLOGIC: Grossly intact. SKIN: Warm to touch. LYMPH NODES: Negative to palpation. LABORATORY DATA: Hemoglobin is 8.7, WBC count is 8.09, rheumatoid factor is negative. Lyme disease titers are negative. Potassium is 4.6, creatinine is 2.9. IMPRESSION: 1. Pericardial effusion which appears old and organized and is asymptomatic with the patient. Most of the workup thus far is negative. 2. Paroxysmal atrial flutter. 3. Chronic renal insufficiency. 4. Chronic anemia. RECOMMENDATIONS: As outlined above, the patient is to have a pulmonary evaluation completed. I think it is best that we add at least subcutaneous heparin for this patient for DVT prophylaxis as well as anticoagulation for her paroxysmal atrial arrhythmias. Outpatient or long-term anticoagulation will need to be decided. However, with this patient's chronic anemia and given her age and risk of fall, we might elect to leave her on aspirin only. From a cardiac standpoint, she is currently stable.
[2016-08-23] MEDS ORDERED: POLYETHYLENE (MIRALAX) 17 GM PACK PO STA (11:49)
[2016-08-23] MEDS ORDERED: POLYETHYLENE (MIRALAX) 17 GM PACK PO PRN (12:00)
--- NOTE | 2016-08-23 13:39 | Pulmonary Consultation ---
History General Date of Service: Aug 23, 2016. Stated Complaint: Pericardial Effusion, Pneumonia HPI The patient is a 85 year old female who presents to [facility] with complaints of Pericardial Effusion, Pneumonia. The patient's primary care provider is Yogesh Quevedo III, M.D.. time he also went in for a PET scan and surgical evaluation. The surgeon performed a 6 minute walk study where the patient failed and was deemed not to be a surgical candidate. At this time is difficult to determine if the patient underwent SBRT or full thorax radiation therapy. Per the notes the patient underwent SPBT on the first 4 days of March 2016. It is much less likely though a patient experience bilateral radiation pneumonitis with SBRT, as are patient did requiring high-dose steroid treatment on 06/17/16. On follow-up for his radiation therapy the patient was noted to have a large liver lesion and underwent biopsy in March 2016 with pathology showing metastatic squamous cell carcinoma of the lung. I should note the patient also had an MRI of the brain which we do not have the report at this time. This always occurring at [facility] and patients primary oncologist Dr. Mccann was working him up/evaluating for possible treatment. Prior to the initiation of treatment the patient got ill and was admitted to [facility] from 07/16-07/23/16 for MSSA pneumonia and empyema. He was treated initially with vancomycin, ceftriaxone, and azithromycin then discharged on Bactrim as sensitivities came back. He was also noted to have hypoxemia requiring 2 L nasal cannula at the time of discharge. Since his severe decline the patient did meet with Dr. Mango Curry of the thoracic oncology group/hematology and was moved to hospice care Since his discharge the patient has done poorly requiring oxygen and notable dyspnea on exertion as well as at rest. On the day of this admission the patient had rogelio hemoptysis which should not create increased respiratory distress. Since his admission and treatment the patient has noted decrease hemoptysis and increasing respiratory strength. At this time he denies: Fever, chills, pleurisy. Current Work-Up: 1)WBC: 11K10K 2)INR,PT,APTT: WNL 3)BUN: 11 4)Protein: 6.3 5)Alb: 1.4 6)AST: 122 7)ALT: 85 8)AO: 250 Radiology: 1)CXR: Expiratory film, diffuse multi-focal consolidations/infiltrates 2)CT thorax: emphysema, ILD, bronchiectasis bilaterally greatest in the RLL with large right sided pleural effusion. Enlarged mediastinal lymph-nodes station R4 and 7 a.RLL nodule vs. R12 lymph-node next to sub-segmental vessel Current Treatment: 1)Methylprednisolone: 40mg Q12 2)Zosyn: Q8 3)Levaquin 500mg QD 4)Vancomycin 1gm prn 5)Acyclovir 6)Xopenex 7)Albumin Historian: patient, family, EMS Review of Systems Constitutional: reports: weakness, weight loss Eyes: reports: no symptoms ENT: reports: no symptoms Cardiovascular: reports: chest tightness Respiratory: reports: LEYVA, cough, hemoptysis, shortness of breath, sputum production Gastrointestinal: reports: no symptoms Genitourinary - Female: reports: no symptoms Musculoskeletal: reports: myalgias Integumentary: reports: no symptoms Neurologic: reports: no symptoms Psychiatric: reports: no symptoms Endocrine: no symptoms Hematologic / Lymphatic: no symptoms Allergic / Immunologic: no symptoms Past Medical History Past Medical History: 1.Stage 4 Adenocarcinoma of lung 2.Breast pain 3.Moderate COPD FEV1: 2.11/65% 4.Dermatitis 5.Deviated nasal septum 6.Dyslipidemia 7.Herpes simplex 8.Hypertension 9.Hypertrophy of nasal turbinates 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 11.Murmur 12.Radiation pneumonitis 13.Venous insufficiency (I87.2) 14.Weight loss 15.Achilles tendinitis 16.candidiasis of mouth 17.Paroxysmal atrial fibrillation Past Surgical History: 1.Cataract Surgery RT 09/03/11 2.Hernia Repair 3.Lung Lobectomy LLL 2008 4.Septoplasty 5.Spinal Diskectomy Lumbar 6.Therapeutic Fracture Nasal Turbinate 02/12/15 7.Bronchoscopy Yogesh Parikh MD 07/12/08 Family History FHx: heart disease Hypertension Social History Hx Tobacco Use In Past Year?: No Smoking Status: Never Smoker Marital status: Housing status: lives with significant other Occupational Status: retired Immunizations History of Influenza Vaccine: Yes Influenza Vaccine Date: Apr 24, 2016 History of Tetanus Vaccine?: Yes Tetanus Immunization Date: Oct 05, 2007 History of Pneumococcal: Yes Pneumococcal Date: Apr 24, 2016 History of MDRO History of MDRO: No Allergies Coded Allergies: Penicillins (Verified Allergy, Intermediate, HIVES, 08/21/16) Iron Sucrose (Unverified Adverse Reaction, Mild, n&v, abd pain, 08/21/16) Current Medications Reported Home Medications Medications Dose Route/Sig Max Daily Dose Days Date Category Nifedipine Er (Nifedipine) 30 Mg Tab 1 Tab PO DAILY 30 09/25/15 Reported Remeron (Mirtazapine) 15 Mg Tab 7.5 Mg PO HS 30 09/25/15 Reported Ferrous Sulfate 325 Mg Tab 325 Mg PO BID 09/25/15 Reported Mag-Ox (Magnesium Oxide) 400 Mg Tab 400 Mg PO DAILY 08/09/15 Reported Aspirin Ec (Aspirin) 81 Mg Tab 81 Mg PO DAILY 08/09/15 Reported Lasix (Furosemide) 20 Mg Tab 20 Mg PO Q2D 07/29/15 Reported Procrit (Epoetin Rafael) 10,000 Unit/ Inj 10,000 Units SC [id number] 07/07/15 Reported Ativan (Lorazepam) 1 Mg Tab 1 Mg PO TID PRN 05/28/15 Reported Levothyroxine Sodium 75 Mcg Tab 75 Mcg PO DAILY 05/28/15 Reported Protonix (Pantoprazole Sodium) 40 Mg Tab 40 Mg PO DAILY 05/28/15 Reported Lipitor (Atorvastatin) 10 Mg Tab 10 Mg PO DAILY 11/23/11 Reported Physical Physical Exam Vital Signs: Date Time Temp Pulse Resp B/P Pulse Ox O2 Delivery O2 Flow Rate FiO2 08/23/16 12:42 36.9 78 16 114/68 93 Nasal Cannula 4.0 08/23/16 12:00 Nasal Cannula 4.0 08/23/16 11:55 36.6 88 18 114/75 95 Nasal Cannula 4.0 08/23/16 08:00 Nasal Cannula 4.0 08/23/16 07:20 37.0 75 20 116/68 93 Nasal Cannula 4.0 08/23/16 04:01 91 18 93 Nasal Cannula 4.0 08/23/16 04:00 Nasal Cannula 1.5 08/23/16 03:30 37.1 94 19 131/70 93 Nasal Cannula 4.0 08/22/16 23:59 Nasal Cannula 1.5 08/22/16 23:26 37.0 75 18 112/69 94 Nasal Cannula 1.5 08/22/16 20:08 107/62 08/22/16 20:00 Nasal Cannula 1.5 08/22/16 19:04 37.1 92 22 137/57 94 Nasal Cannula 1.5 08/22/16 16:00 Nasal Cannula 2.0 General Appearance: moderate distress Head: NORMOCEPHALIC, ATRAUMATIC Eyes: PERRLA, NO DISCHARGE, EOMI, SCLERAE NORMAL, other (O2 nasal cannula ) ENT: NORMAL EAR EXAM, NORMAL NASAL EXAM, NORMAL MOUTH EXAM, NORMAL THROAT EXAM , NORMAL DENTAL EXAM Neck: NORMAL RANGE OF MOTION, NO TENDERNESS, TRACHEA MIDLINE, NO STRIDOR, SUPPLE Respiratory: other (bilateral diffuse rhonchi with dullness to percussion of the right lower lobe) Cardiovasular: NORMAL S1S2, NO M/G/R, NO MURMUR, other (tachycardic) Abdomen: NON TENDER, NORMAL BOWEL SOUNDS, NO REBOUND, NO MASSES, NO GUARDING Genitourinary - Female: EXTERNAL GENITALIA NORMAL Back: NORMAL INSPECTION, NO MIDLINE TENDERNESS, NO CVA TENDERNESS Upper Extremities: NO EDEMA Lower Extremities: edema Edema: Bilateral LE (2+) Pulses: carotid (R) (2+), carotid (L) (2+), dorsalis pedis (R) (1+), dorsalis pedis (L) (1+) Neuro: ALERT, ORIENTED x 3, NORMAL MOTOR EXAM, NORMAL SENSATION Reflexes: biceps (R) (2+), bicpes (L) (2+) Babinski Testing: right (downgoing), left (downgoing) Psychiatric: NORMAL AFFECT, NO SUICIDAL IDEATION Diagnostics Labs Results Past 24 Hours Test 08/22/16 15:17 08/23/16 00:00 08/23/16 05:54 Range/Units Lyme Disease IgG Antibody NEG NEG Lyme Disease IgM Antibody NEG NEG Urine Osmolality 381 500-800 mOms/kg White Blood Count 8.09 4.8-10.8 K/uL Red Blood Count 2.63 4.2-5.4 M/uL Hemoglobin 8.7 12.0-16.0 g/dL Hematocrit 25.8 37-47 % Mean Corpuscular Volume 98.1 80-100 fL Mean Corpuscular Hemoglobin 33.1 25-34 pg Mean Corpuscular Hemoglobin Concent 33.7 32-36 g/dl RDW Standard Deviation 50.4 36.4-46.3 fL RDW Coefficient of Variation 14.1 11.5-14.5 % Platelet Count 214 130-400 K/uL Mean Platelet Volume 10.0 7.4-10.4 fL Sodium Level 126 136-145 mmol/L Potassium Level 4.6 3.5-5.1 mmol/L Chloride Level 92 98-107 mmol/L Carbon Dioxide Level 24 21-32 mmol/L Anion Gap 10.0 3-11 mmol/L Blood Urea Nitrogen 45 7-18 mg/dl Creatinine 2.90 0.60-1.20 mg/dl Est Creatinine Clear Calc Drug Dose 11.0 ml/min Estimated GFR () 16.4 Estimated GFR (Non- 14.2 BUN/Creatinine Ratio 15.6 10-20 Random Glucose 96 70-99 mg/dl Calcium Level 8.2 8.5-10.1 mg/dl Magnesium Level 3.0 1.8-2.4 mg/dl Microbiology Results 08/22/16 Urine Culture - Preliminary, Resulted NO GROWTH - LESS THAN 1,000 COLONIES/... Diagnostic Radiology 1) CXR: Expiratory film, diffuse multi-focal consolidations/infiltrates 2) CT thorax: emphysema, ILD, bronchiectasis bilaterally greatest in the RLL with large right sided pleural effusion. Enlarged mediastinal lymph-nodes station R4 and 7 a. RLL nodule vs. R12 lymph-node next to sub-segmental vessel EKG Most recent EKG sinus rhythm with first-degree AV block Impression Assessment and Plan 85-year-old gentleman with metastatic stage IV lung carcinoma, hypoxia, hemoptysis #1 Hemoptysis: There is a high likelihood the patient has chronic bronchiectasis from smoking as well as possible recurrence of radiation-induced pneumonitis. The normal dose of treatment for radiation pneumonitis is 60 mg of prednisone per day (methylprednisolone: 48mg-equivalent dose). This patient is severely to/hypoxic we will introduce methylprednisolone at 60 mg/30 twice a day per day as a 48 mg is not obtainable. Also patient high risk for infection as he recently had a bad right lower lobe pneumonia with parapneumonic effusion. Suggest we continue current Zosyn and vancomycin dosing for hospital associated pneumonia. We can most likely discontinue Levaquin. --Bronchoscopy is not indicated at this time as the patient is to hypoxic and tachypnea. --Right lower lobe nodule: On CT there is a right lower lobe nodule and a tertiary subsegment that appears proximal to a tertiary blood vessel. As bronchoscopy is not possible this is very distant airway workup at this time is not indicated. #2: ID: Once again suggest we continue with Zosyn as well as vancomycin discontinuing Levaquin and continuing with acyclovir. #3: COPD/bronchiectasis: Will place patient on methylprednisolone 30 mg twice a day and continue Xopenex introducing Atrovent nebulizer. #4: DNR/DNI/hospice: #5 acute for this consultation
[2016-08-23] MEDS ORDERED: LEVOFLOXACIN / D5W 500 MG in PREMIXED IN D5W 100 ML IV SCH (14:00)
[2016-08-23] MEDS: LEVOFLOXACIN 500 MG TAB PO SCH (14:12)
[2016-08-23] MEDS: DOCUSATE SODIUM 100 MG CAP PO SCH ×2 (14:13→21:06)
--- NOTE | 2016-08-23 14:49 | Pulmonary Consultation ---
History General Date of Service: Aug 23, 2016. Stated Complaint: Pericardial Effusion, Pneumonia HPI The patient is a 85 year old female who presents to [facility] with complaints of Pericardial Effusion, Pneumonia. The patient's primary care provider is Ygoesh Quevedo III, M.D.. 85 y/o female admitted to [facility] 08/21/16 with failure to thrive and during work- up was noted to have a large pericardial effusion with bilateral pleural effusion and atelectasis right greater than left. She was started on Levaquin 500mg. A cardiac echo performed 08/21/16 notes a small-medium sized pericardial effusion with no signs of tamponade physiology. She has also been noted to have progressive hyponatremia, ROGER and associated hyperkalemia followed by nephrology. Patient notes on the day of her admission she started experiencing increasing fatigue with dyspnea on exertion. She never noted productive sputum, pleurisy, cardiac chest pain, fevers, chills or hemoptysis. Today during our interview she denied any respiratory issues. She also note on the day of admission patient also complained of bilateral shoulder pain. Work-up: Cardiac Echo (08/21/16) * Small to medium sized pericardial effusion. * There are no echocardiographic indications of cardiac tamponade. * The pericardial space suggests organizing pericardial effusion. * The left ventricle is normal in size. * There is moderate concentric left ventricular hypertrophy. * Ejection Fraction = 55-60%. * The right ventricle is normal size. * The left atrial size is normal. * Right atrial size is normal. * Mild aortic regurgitation EKG (08/23/16) sinus rhythm, first-degree AV block CT Thorax (08/22/16) compared to 04/06/15 Bilateral pleural effusions Signs of loculation on the left side Atelectatic lung bilaterally as well as the lingual Chest x-ray (08/21/16) compared to 06/02/16 Mild pulmonary edema with cephalization notable costophrenic blunting of the left side Microbiology history: #1: Urine 29/09/15: Escherichia coli pansensitive #2: Urine a 29/03/15: Escherichia coli pansensitive Historian: patient, EMS Review of Systems Constitutional: reports: weakness Eyes: reports: no symptoms ENT: reports: no symptoms Cardiovascular: reports: no symptoms Respiratory: reports: no symptoms Gastrointestinal: reports: no symptoms Genitourinary - Female: reports: no symptoms Musculoskeletal: reports: no symptoms Integumentary: reports: no symptoms Neurologic: reports: no symptoms Psychiatric: reports: no symptoms Endocrine: no symptoms Hematologic / Lymphatic: no symptoms Allergic / Immunologic: no symptoms Past Medical History Past Medical History: (1) Anemia, chronic disease (2) Anxiety (3) CKD (chronic kidney disease), stage IV (4) GERD (gastroesophageal reflux disease) (5) H/O echocardiogram (6) HLD (hyperlipidemia) (7) HTN (hypertension) (8) Hypothyroidism (9) Palpitations (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 Past Surgical History: (1) appendectomy (2) cholecystectomy (3) dilation and curettage (4) total hip replacement, left Family History FHx: heart disease Hypertension Social History Hx Tobacco Use In Past Year?: No Smoking Status: Never Smoker Marital status: Housing status: lives with significant other Occupational Status: retired Immunizations History of Influenza Vaccine: Yes Influenza Vaccine Date: Apr 24, 2016 History of Tetanus Vaccine?: Yes Tetanus Immunization Date: Oct 05, 2007 History of Pneumococcal: Yes Pneumococcal Date: Apr 24, 2016 History of MDRO History of MDRO: No Allergies Coded Allergies: Penicillins (Verified Allergy, Intermediate, HIVES, 08/21/16) Iron Sucrose (Unverified Adverse Reaction, Mild, n&v, abd pain, 08/21/16) Current Medications Reported Home Medications Medications Dose Route/Sig Max Daily Dose Days Date Category Nifedipine Er (Nifedipine) 30 Mg Tab 1 Tab PO DAILY 30 09/25/15 Reported Remeron (Mirtazapine) 15 Mg Tab 7.5 Mg PO HS 30 09/25/15 Reported Ferrous Sulfate 325 Mg Tab 325 Mg PO BID 09/25/15 Reported Mag-Ox (Magnesium Oxide) 400 Mg Tab 400 Mg PO DAILY 08/09/15 Reported Aspirin Ec (Aspirin) 81 Mg Tab 81 Mg PO DAILY 08/09/15 Reported Lasix (Furosemide) 20 Mg Tab 20 Mg PO Q2D 07/29/15 Reported Procrit (Epoetin Rafael) 10,000 Unit/ Inj 10,000 Units SC [id number] 07/07/15 Reported Ativan (Lorazepam) 1 Mg Tab 1 Mg PO TID PRN 05/28/15 Reported Levothyroxine Sodium 75 Mcg Tab 75 Mcg PO DAILY 05/28/15 Reported Protonix (Pantoprazole Sodium) 40 Mg Tab 40 Mg PO DAILY 05/28/15 Reported Lipitor (Atorvastatin) 10 Mg Tab 10 Mg PO DAILY 11/23/11 Reported Physical Physical Exam Vital Signs: Date Time Temp Pulse Resp B/P Pulse Ox O2 Delivery O2 Flow Rate FiO2 08/23/16 12:42 36.9 78 16 114/68 93 Nasal Cannula 4.0 08/23/16 12:00 Nasal Cannula 4.0 08/23/16 11:55 36.6 88 18 114/75 95 Nasal Cannula 4.0 08/23/16 08:00 Nasal Cannula 4.0 08/23/16 07:20 37.0 75 20 116/68 93 Nasal Cannula 4.0 08/23/16 04:01 91 18 93 Nasal Cannula 4.0 08/23/16 04:00 Nasal Cannula 1.5 08/23/16 03:30 37.1 94 19 131/70 93 Nasal Cannula 4.0 08/22/16 23:59 Nasal Cannula 1.5 08/22/16 23:26 37.0 75 18 112/69 94 Nasal Cannula 1.5 08/22/16 20:08 107/62 08/22/16 20:00 Nasal Cannula 1.5 08/22/16 19:04 37.1 92 22 137/57 94 Nasal Cannula 1.5 08/22/16 16:00 Nasal Cannula 2.0 General Appearance: NO APPARENT DISTRESS Head: NORMOCEPHALIC, ATRAUMATIC Eyes: PERRLA, NO DISCHARGE, EOMI, SCLERAE NORMAL, other (O2 nasal cannula ) ENT: NORMAL EAR EXAM, NORMAL NASAL EXAM, NORMAL MOUTH EXAM, NORMAL THROAT EXAM , NORMAL DENTAL EXAM, other Neck: NORMAL RANGE OF MOTION, NO TENDERNESS, TRACHEA MIDLINE, NO STRIDOR, SUPPLE Respiratory: other (bilateral rhonchi with dullness to percussion at the bases) Cardiovasular: NORMAL S1S2, NO M/G/R, NO MURMUR, other (tachycardic) Abdomen: NON TENDER, NORMAL BOWEL SOUNDS, NO REBOUND, NO MASSES, NO GUARDING Genitourinary - Female: EXTERNAL GENITALIA NORMAL Back: NORMAL INSPECTION, NO MIDLINE TENDERNESS, NO CVA TENDERNESS Upper Extremities: NO EDEMA Lower Extremities: edema Edema: Bilateral LE (1+ pitting edema in dependent regions) Pulses: carotid (R) (1+), carotid (L) (1+ ), dorsalis pedis (R) (1+), dorsalis pedis (L) (1+) Neuro: ALERT, ORIENTED x 3, NORMAL MOTOR EXAM, NORMAL SENSATION Reflexes: biceps (R) (2+), bicpes (L) (1+ ) Babinski Testing: right (downgoing), left (downgoing) Psychiatric: NORMAL AFFECT, NO SUICIDAL IDEATION Diagnostics Labs Results Past 24 Hours Test 08/22/16 15:17 08/23/16 00:00 08/23/16 05:54 Range/Units Lyme Disease IgG Antibody NEG NEG Lyme Disease IgM Antibody NEG NEG Urine Osmolality 381 500-800 mOms/kg White Blood Count 8.09 4.8-10.8 K/uL Red Blood Count 2.63 4.2-5.4 M/uL Hemoglobin 8.7 12.0-16.0 g/dL Hematocrit 25.8 37-47 % Mean Corpuscular Volume 98.1 80-100 fL Mean Corpuscular Hemoglobin 33.1 25-34 pg Mean Corpuscular Hemoglobin Concent 33.7 32-36 g/dl RDW Standard Deviation 50.4 36.4-46.3 fL RDW Coefficient of Variation 14.1 11.5-14.5 % Platelet Count 214 130-400 K/uL Mean Platelet Volume 10.0 7.4-10.4 fL Sodium Level 126 136-145 mmol/L Potassium Level 4.6 3.5-5.1 mmol/L Chloride Level 92 98-107 mmol/L Carbon Dioxide Level 24 21-32 mmol/L Anion Gap 10.0 3-11 mmol/L Blood Urea Nitrogen 45 7-18 mg/dl Creatinine 2.90 0.60-1.20 mg/dl Est Creatinine Clear Calc Drug Dose 11.0 ml/min Estimated GFR () 16.4 Estimated GFR (Non- 14.2 BUN/Creatinine Ratio 15.6 10-20 Random Glucose 96 70-99 mg/dl Calcium Level 8.2 8.5-10.1 mg/dl Magnesium Level 3.0 1.8-2.4 mg/dl Microbiology Results 08/22/16 Urine Culture - Preliminary, Resulted NO GROWTH - LESS THAN 1,000 COLONIES/... Diagnostic Radiology CT Thorax (08/22/16) compared to 04/06/15 Bilateral pleural effusions Signs of loculation on the left side Atelectatic lung bilaterally as well as the lingual Chest x-ray (08/21/16) compared to 06/02/16 Mild pulmonary edema with cephalization notable costophrenic blunting of the left side EKG EKG (08/23/16) sinus rhythm, first-degree AV block Impression Assessment and Plan 85-year-old female admitted for failure to thrive now noted to have bilateral pleural effusion with atelectatic lung: #1: Respiratory: Patient with bilateral pleural effusions and atelectatic lung. Suggest at this time we initiate the patient on aspiration precautions and obtain swallow evaluation as these images are dramatically different from previous radiologic and clinical picture. We'll also switch antibiotics to cover aspiration Zosyn, and discontinue vancomycin as the patient's MRSA screen is negative. Bilateral pleural or most likely secondary to volume overloaded states. If with good chest physiotherapy and dornase we're unable to reexpand the patient's lung suggest thoracentesis early next week. #2: ID: As the patient was recently discharged from the hospital and has increasing bilateral atelectatic lung suggest we place her on Zosyn for aspiration pneumonia at this time. As her MRSA swab is negative starting vancomycin at this time is not indicated. Also note that the patient's UA was positive and she has a strong history of Escherichia coli multiple previous admissions from her urinary tract. Zosyn should cover this as the previous organisms were pansensitive. #3: Hyponatremia: Patient's serum osmolality was 381 which would predict a isosmotic state. The stent to be secondary to hypoproteinemia and/or hyperlipidemia.
[2016-08-23 16:12] LABS: CREATININE 2.6 mg/dl (0.60-1.20); POTASSIUM 4.5 mmol/L (3.5-5.1)
[2016-08-23] MEDS: FUROSEMIDE 20 MG TAB PO SCH (18:03)
--- NOTE | 2016-08-23 18:03 | Progress Note ---
Internal Med Progress Note Date of Service: Aug 23, 2016. Provider Documentation: SUBJECTIVE: concern of constipation very anxious no SOB or chest discomfort OBJECTIVE: Vital Signs-as noted below Exam: General Appearance: elderly female , some what anxious , no apparent distress Head: normocephalic Eyes: normal inspection ENT: hearing grossly normal Neck: supple, no thyromegaly , trachea midline Respiratory/Chest: no respiratory distress, + decreased breath sounds Cardiovascular: regular rate, rhythm, no edema, normal peripheral pulses Abdomen/GI: normal bowel sounds, non tender, soft Extremities/Musculoskeletal: trace bilat lower ext edema Neurologic/Psych: no motor/sensory deficits, alert, normal mood/affect, oriented x 3 Skin: normal color, warm/dry Lab data as noted below. ASSESSMENT & PLAN: PERICARDIAL EFFUSION - incidental finding on CT abd/pelvis; large, 14mm - asymptomatic, no shortness of breath, BP stable - ECHO : Small to medium sized pericardial effusion. There are no echocardiographic indications of cardiac tamponade. The pericardial space suggests organizing pericardial effusion. The left ventricle is normal in size. There is moderate concentric left ventricular hypertrophy. Ejection Fraction = 55-60%. -CT chest : moderate to large pericardial effusion , moderate left and small rt pleural effusions with associated lingular and bilat lower lobe opacities which favor atelectasis _Cardiology consult appreciated -no evidence of cardiac tamponade or hemodynamic compromise monitor in tele given left sided pleural effusion associated with pericardial effusion -need to evaluate for inflammatory /Rheumatoid disease - NORTH -negative rheumatoid factor - -ESR mildly elevated PNEUMONIA - Cxary Left lower lobe infiltrate CT chest moderate left and rt sided pleural effusion -Pulmonology eval requested appreciate input given the location of infiltrate concern for aspiration speech eval requested aspiration precaution on Levaquin , can not order Zosyn as pt is allergic to PCN ATRIAL FLUTTER, - paroxysmal atrial flutter with controlled rate -new finding -pt converted to sinus rhythm intermittently no symptom of dizzy spell or lightheadedness HR remains in low 80's -rate controlled -no IV anticoagulation until further evaluation for pericardial effusion - cardiology following -low dose beta maliha added for rhythm control -hold for bradycardia ABNORMAL U/A - ? UTI - on Levaquin for pneumonia, which will cover urinary source as well - last urine culture grew gutierrez sensitive E. Coli -urine culture -no growth CKD STAGE IV - baseline creat runs in the high 1's - low 2's - Cr elevated 2.9 - continue to monitor, avoid nephrotoxic agents when able -nephrology consulted -appreciate input HYPERKALEMIA: resolved after giving Kayexalate keep K level ~ 4 given cardiac arrhythmia /paroxysmal afib /flutter repeat PRP in AM low K diet Nephrology consulted -pt follows with Dr Hwang in put pt SIADH - with chronic hyponatremia -follow PRP CHRONIC ANEMIA - due to CKD, receives Procrit injections - hgb at baseline HTN - BP stable, -hold Nifedipine started on low dose Lopressor 12.5 mg PO BID HYPOTHYROIDISM - TSH WNL - continue levothyroxine THORACIC AORTIC ANEURYSM - stable on CT abd today - continue to monitor as an outpatient DVT PROPHYLAXIS - sub q heparin CODE STATUS - Patient is a full code DVT PROPHYLAXIS sub q heparin DISPOSITION lives at home with and daughter PT/OT eval prior to discharge may need 2 step 02 assessment if continue to require supplemental 02 social service consulted for discharge planning Medicine follow up with Dr Quevedo Vital Signs: Date Time Temp Pulse Resp B/P Pulse Ox O2 Delivery O2 Flow Rate FiO2 08/23/16 16:19 36.9 73 18 130/67 91 Nasal Cannula 2.0 08/23/16 16:00 91 Nasal Cannula 2.0 08/23/16 12:42 36.9 78 16 114/68 93 Nasal Cannula 4.0 08/23/16 12:00 Nasal Cannula 4.0 08/23/16 11:55 36.6 88 18 114/75 95 Nasal Cannula 4.0 08/23/16 08:00 Nasal Cannula 4.0 08/23/16 07:20 37.0 75 20 116/68 93 Nasal Cannula 4.0 08/23/16 04:01 91 18 93 Nasal Cannula 4.0 08/23/16 04:00 Nasal Cannula 1.5 08/23/16 03:30 37.1 94 19 131/70 93 Nasal Cannula 4.0 08/22/16 23:59 Nasal Cannula 1.5 08/22/16 23:26 37.0 75 18 112/69 94 Nasal Cannula 1.5 08/22/16 20:08 107/62 08/22/16 20:00 Nasal Cannula 1.5 Lab Results: Results Past 24 Hours Test 08/23/16 00:00 08/23/16 05:54 08/23/16 15:35 Range/Units Urine Osmolality 381 500-800 mOms/kg White Blood Count 8.09 4.8-10.8 K/uL Red Blood Count 2.63 4.2-5.4 M/uL Hemoglobin 8.7 12.0-16.0 g/dL Hematocrit 25.8 37-47 % Mean Corpuscular Volume 98.1 80-100 fL Mean Corpuscular Hemoglobin 33.1 25-34 pg Mean Corpuscular Hemoglobin Concent 33.7 32-36 g/dl RDW Standard Deviation 50.4 36.4-46.3 fL RDW Coefficient of Variation 14.1 11.5-14.5 % Platelet Count 214 130-400 K/uL Mean Platelet Volume 10.0 7.4-10.4 fL Sodium Level 126 127 136-145 mmol/L Potassium Level 4.6 4.5 3.5-5.1 mmol/L Chloride Level 92 90 98-107 mmol/L Carbon Dioxide Level 24 26 21-32 mmol/L Anion Gap 10.0 11.0 3-11 mmol/L Blood Urea Nitrogen 45 47 7-18 mg/dl Creatinine 2.90 2.60 0.60-1.20 mg/dl Est Creatinine Clear Calc Drug Dose 11.0 12.3 ml/min Estimated GFR () 16.4 18.7 Estimated GFR (Non- 14.2 16.2 BUN/Creatinine Ratio 15.6 18.0 10-20 Random Glucose 96 105 70-99 mg/dl Calcium Level 8.2 8.0 8.5-10.1 mg/dl Magnesium Level 3.0 1.8-2.4 mg/dl Microbiology Results 08/22/16 Urine Culture - Preliminary, Resulted NO GROWTH - LESS THAN 1,000 COLONIES/...
[2016-08-23] MEDS: LORAZEPAM 1 MG TAB PO PRN (18:50)
[2016-08-23] MEDS ORDERED: NURSING VERBAL MED ORDER ONE ×2 (19:15→19:30)
[2016-08-23] MEDS ORDERED: BISACODYL 10 MG SUPP PR ONE (19:45)
[2016-08-23] MEDS: MIRTAZAPINE TAB 15 MG TAB PO SCH (21:09)
[2016-08-23] MEDS: HEPARIN SOD 5000 UNIT/0.5 ML CARP SQ SCH (21:12)
[2016-08-24] VITALS (7 sets, daily range): BP systolic 89–153; BP diastolic 53–70; PULSE 71–86; TEMP 36.4–36.8; O2SAT 92–99
[2016-08-24 06:10] LABS: MEAN CELL VOLUME 96.6 fL (80-100); MEAN CORPUSCULAR HEMOGLOBIN 32.4 pg (25-34); MEAN CORPUSCULAR HGB CONC 33.5 g/dl (32-36); PLATELET COUNT 196 K/uL (130-400); RED BLOOD COUNT 2.38 M/uL (4.2-5.4); WHITE BLOOD COUNT 5.56 K/uL (4.8-10.8)
[2016-08-24] MEDS: LEVOTHYROXINE 75 MCG TAB PO SCH (06:17)
[2016-08-24 06:41] LABS: BUN/CREATININE RATIO 18.3 (10-20); CALCIUM 7.9 mg/dl (8.5-10.1); CREATININE 2.5 mg/dl (0.60-1.20); MAGNESIUM 2.8 mg/dl (1.8-2.4); POTASSIUM 4.4 mmol/L (3.5-5.1)
[2016-08-24] MEDS: ASPIRIN 81 MG ECTAB PO SCH (08:07)
[2016-08-24] MEDS: ATORVASTATIN 10 MG TAB PO SCH (08:07)
[2016-08-24] MEDS: METOPROLOL TARTRATE 25 MG TAB PO SCH ×2 (08:07→20:17)
[2016-08-24] MEDS: PANTOprazole SOD 40 MG TAB PO SCH (08:08)
[2016-08-24] MEDS: FERROUS SULFATE 325 MG TAB PO SCH ×2 (08:08→20:19)
[2016-08-24] MEDS: DOCUSATE SODIUM 100 MG CAP PO SCH ×2 (08:08→20:18)
[2016-08-24] MEDS: HEPARIN SOD 5000 UNIT/0.5 ML CARP SQ SCH (08:10)
--- NOTE | 2016-08-24 09:55 | DIAGNOSTIC IMAGING REPORT ---
SINGLE VIEW CHEST CLINICAL HISTORY: Atypical chest pain. Anxiety. FINDINGS: An AP, portable, upright chest radiograph is compared to study dated 08/21/2016. Correlation is made with chest CT dated 08/22/2016. The examination is degraded by portable technique and patient rotation. The heart is enlarged and there is atherosclerotic calcification of the thoracic aorta. There is pulmonary vascular congestion and interstitial edema. There is an enlarging left pleural effusion with left basilar consolidation. A small pleural effusion is also seen at the right lung base. There is no pneumothorax. The skeletal structures are osteopenic. Advanced degenerative change and scoliosis is noted in the thoracic spine. IMPRESSION: 1. Cardiomegaly with evidence of congestive failure and interstitial edema. This is new from 08/21/2016. 2. Enlarging left pleural effusion with associated left basilar consolidation. 3. A small pleural effusion is seen at the right lung base. Electronically signed by: Oziel Johnson M.D. 08/24/2016 9:53 AM Dictated Date/Time: 08/24/2016 9:49 AM
[2016-08-24 10:02] LABS: HEMATOCRIT 25.1 % (37-47)
--- NOTE | 2016-08-24 12:07 | Nephrology Progress Note ---
Nephrology Progress Note Date of Service: Aug 24, 2016. Subjective 85 yo female with roger on ckd and hyponatremia in setting of stable pericaridal effusion and pleural effusions with sob. being treated for a pneumonia. evaluated by pulmonary. pt oob to chair and eating well. does have underlying anxiety. Objective Date Time Temp Pulse Resp B/P Pulse Ox O2 Delivery O2 Flow Rate FiO2 08/24/16 11:35 36.8 76 18 118/66 97 Nasal Cannula 4.0 08/24/16 08:00 Nasal Cannula 4.0 08/24/16 07:53 36.4 74 20 135/65 96 Nasal Cannula 4.0 08/24/16 06:19 153/68 08/24/16 04:00 Nasal Cannula 4.0 08/24/16 03:11 36.4 76 22 89/53 92 Nasal Cannula 4.0 08/24/16 00:02 Nasal Cannula 4.0 08/23/16 23:35 37.1 76 19 94 Nasal Cannula 4.0 08/23/16 23:02 60 145/55 08/23/16 22:42 82 22 90 Nasal Cannula 4.0 08/23/16 20:00 91 Nasal Cannula 2.0 08/23/16 19:34 36.6 77 16 130/57 91 Nasal Cannula 4.0 08/23/16 16:19 36.9 73 18 130/67 91 Nasal Cannula 2.0 08/23/16 16:00 91 Nasal Cannula 2.0 08/23/16 12:42 36.9 78 16 114/68 93 Nasal Cannula 4.0 Physical Exam: General-[id number] Eyes-no scleral icterus ENT-mmm Neck-supple Lungs-decreased breath sounds at left base Heart-rrr Abdomen-bs+ s/nt/nd Extremities-no c/c/e Neuro-nonfocal Current Inpatient Medications Medications (Trade) Dose Ordered Sig/Jassi Route Start Time Stop Time Status Last Admin Dose Admin Acetaminophen (Tylenol Tab) 650 mg Q4H PRN PO 08/21/16 17:30 09/20/16 17:29 08/23/16 22:41 650 MG Ondansetron HCl (Zofran Inj) 4 mg Q6H PRN IV 08/21/16 17:30 09/20/16 17:29 08/23/16 17:18 4 MG Levofloxacin (Consult) 1 ea UD PRN N/A 08/21/16 19:49 09/20/16 19:48 Aspirin (Ecotrin Tab) 81 mg DAILY PO 08/22/16 09:00 09/21/16 08:59 08/24/16 08:07 81 MG Atorvastatin Calcium (Lipitor Tab) 10 mg DAILY PO 08/22/16 09:00 09/21/16 08:59 08/24/16 08:07 10 MG Ferrous Sulfate (Feosol Tab) 325 mg BID PO 08/21/16 21:00 09/20/16 20:59 08/24/16 08:08 325 MG Furosemide (Lasix tab) 20 mg Q2D@1800 PO 08/21/16 20:00 09/20/16 19:59 08/23/16 18:03 20 MG Levothyroxine Sodium (Synthroid Tab) 75 mcg DAILYBB PO 08/22/16 06:00 09/21/16 05:59 08/24/16 06:17 75 MCG Lorazepam (Ativan Tab) 1 mg TID PRN PO 08/21/16 18:15 09/20/16 18:14 08/23/16 18:50 1 MG Mirtazapine (Remeron Tab) 7.5 mg HS PO 08/21/16 21:00 09/20/16 20:59 08/23/16 21:09 7.5 MG Pantoprazole Sodium (Protonix Tab) 40 mg DAILY PO 08/22/16 09:00 09/21/16 08:59 08/24/16 08:08 40 MG Nifedipine (Procardia Xl Tab) 30 mg DAILY PO 08/22/16 09:00 09/21/16 08:59 Future Hold 08/22/16 07:42 30 MG Metoprolol Tartrate (Lopressor Iv) 5 mg Q6 PRN IV 08/22/16 09:30 09/21/16 09:29 Metoprolol Tartrate (Lopressor Tab) 12.5 mg BID PO 08/22/16 21:00 09/21/16 20:59 08/24/16 08:07 12.5 MG Albuterol Sulfate (Ventolin 0.083% 2.5MG/3ML Neb) 2.5 mg Q6R PRN INH 08/23/16 04:00 09/22/16 03:59 08/23/16 22:42 2.5 MG Heparin Sodium (Porcine) (Heparin Sq 5000 Unit/0.5ml) 5,000 unit Q12 SQ 08/23/16 21:00 09/22/16 20:59 08/24/16 08:10 5,000 UNIT Levofloxacin (Levaquin Tab) 500 mg Q2D@1400 PO 08/23/16 14:00 08/31/16 13:59 08/23/16 14:12 500 MG Polyethylene (Miralax Powder Packet) 17 gm DAILY PRN PO 08/23/16 12:00 09/22/16 11:59 Docusate Sodium (coLACE CAP) 100 mg BID PO 08/23/16 12:00 09/22/16 11:59 08/24/16 08:08 100 MG Last 24 Hours Test 08/23/16 15:35 08/24/16 05:15 08/24/16 09:50 Sodium Level 127 mmol/L 130 mmol/L Potassium Level 4.5 mmol/L 4.4 mmol/L Chloride Level 90 mmol/L 92 mmol/L Carbon Dioxide Level 26 mmol/L 27 mmol/L Anion Gap 11.0 mmol/L 11.0 mmol/L Blood Urea Nitrogen 47 mg/dl 46 mg/dl Creatinine 2.60 mg/dl 2.50 mg/dl Est Creatinine Clear Calc Drug Dose 12.3 ml/min 12.7 ml/min Estimated GFR () 18.7 19.6 Estimated GFR (Non- 16.2 17.0 BUN/Creatinine Ratio 18.0 18.3 Random Glucose 105 mg/dl 90 mg/dl Calcium Level 8.0 mg/dl 7.9 mg/dl White Blood Count 5.56 K/uL Red Blood Count 2.38 M/uL Hemoglobin 7.7 g/dL 8.3 g/dL Hematocrit 23.0 % 25.1 % Mean Corpuscular Volume 96.6 fL Mean Corpuscular Hemoglobin 32.4 pg Mean Corpuscular Hemoglobin Concent 33.5 g/dl RDW Standard Deviation 48.9 fL RDW Coefficient of Variation 13.9 % Platelet Count 196 K/uL Mean Platelet Volume 10.0 fL Magnesium Level 2.8 mg/dl Date/Time Source Procedure Growth Status 08/23/16 23:00 Sputum Expectorated Sputum Gram Stain - Final Resulted 08/23/16 23:00 Sputum Expectorated Sputum Sputum Culture Pending Resulted Assessment & Plan hyponatremia-has siadh of unclear etiology-on fluid restriction at home. sodium levels improved to 130 this morning. on a fluid restriction here. unable to give normal saline or salt tablets since has pleural effusions and is sob. continue fluid restriction. ROGER on ckd-likely atn. creatinine went from 2.1 to 2.9 and now is 2.5. no role for dialysis. appears to have peaked and hopefully will continue to improve to baseline. Anemia of renal Failure-on procrit as an outpt and will continue to give intermittent doses while in the hospital. may have element of procrit resistance in setting of infection. had 10k units sq yesterday.
--- NOTE | 2016-08-24 12:38 | Progress Note ---
Progress Note ATTENDING NOTE : am labs showed H&H 7.7 2 units of PRBC typed and crossed repeat Hb 8.3 no indication of PRBC transfusion
--- NOTE | 2016-08-24 13:29 | PROGRESS NOTE ---
DATE: 08/24/2016 FOLLOWUP VISIT SUBJECTIVE: The patient is an 85-year-old who presented with shortness of breath, then on a CT was noted to have a pericardial effusion which by echocardiography is small to moderate sized, appears to be organized. Because of an abnormal chest x-ray, pulmonary was asked to consult and they are suggesting that the patient possibly has aspiration. That workup is in progress. The patient is hemodynamically stable and has no complaints today. OBJECTIVE: GENERAL: She is alert and oriented, sitting up in a chair, eating her lunch and with her daughter visiting. She has no complaints today. VITAL SIGNS: Blood pressure is 120/60, pulse is regular at 76. GENERAL: She is afebrile. HEENT: She is normocephalic. Pupils are equal and reactive to light. Extraocular muscles are intact bilaterally. NECK: The neck veins are flat. Carotids have good upstrokes bilaterally without bruits. Thyroid is nonpalpable. RESPIRATORY: Breath sounds equal bilaterally and clear to auscultation. CARDIOVASCULAR: Heart has a regular rhythm. Normal S1, S2; no S3, S4. GASTROINTESTINAL: Abdomen is soft, nontender without organomegaly. EXTREMITIES: Free of edema, digital clubbing, or cyanosis. NEUROLOGIC: Grossly intact. SKIN: Warm to touch. LYMPH NODES: Negative to palpation. IMPRESSION: 1. Pneumonia with possible aspiration. 2. Pericardial effusion which appears old and organized. 3. Paroxysmal atrial flutter. 4. Chronic renal insufficiency. 5. Chronic anemia, on Procrit. RECOMMENDATIONS: From a cardiac standpoint, the patient is stable. I placed her on subQ heparin for DVT prophylaxis and for paroxysmal atrial arrhythmias; however, I do not believe that she is a candidate for long-term anticoagulation after discharge. We will await the pulmonary workup for the aspiration.
--- NOTE | 2016-08-24 13:50 | Pulmonology Progress Note ---
Pulmonary Progress Note Date of Service Aug 24, 2016. Attending Dr. Leon Rosales Subjective Patient is tearful and very anxious about her current state of health. She also notes increasing shortness of breath Objective Patient requiring increased oxygen needs now on 4L continuous but during our conversation no signs of respiratory failure currently VS: SaO2: 92-97% on 4Lnc RESP: decreased BS now 1/2 up the left [place]er[place]-thorax Cardiac: IRR distant heart sounds CXR: pleural effusion 2/3 left [place]-thorax EKG: A-flutter WBC: 6 BUN/Cr: 46/2.5 Assessment & Plan 85-year-old female admitted for failure to thrive now noted to have bilateral pleural effusion L>R with atelectatic lung: #1: Respiratory: Increasing pleural effusion based off CXR 08/24/16. Patient subjectively notes increased SOB and she is now requiring increased O2 support. I will attempt to get a thoracentesis performed over the next 24 hours to help with increasing SOB. Pleural effusion most likely from volume overload state with combination of acute infection, diastolic heart failure and renal insufficiency. #2: ID: Patient with increasing SOB and pleural effusion. Suggest we obtain a thoracentesis and review pleural fluid analyses. Patient at risk for possible para-pneumonic effusion vs. empyema but if feel the empyema is low likely-alicia. suggest we continue current anti-biotics and f/u with swallow evaluation. Data Medications: Current Inpatient Medications Medications (Trade) Dose Ordered Sig/Jassi Route Start Time Stop Time Status Last Admin Dose Admin Acetaminophen (Tylenol Tab) 650 mg Q4H PRN PO 08/21/16 17:30 09/20/16 17:29 08/23/16 22:41 650 MG Ondansetron HCl (Zofran Inj) 4 mg Q6H PRN IV 08/21/16 17:30 09/20/16 17:29 08/23/16 17:18 4 MG Levofloxacin (Consult) 1 ea UD PRN N/A 08/21/16 19:49 09/20/16 19:48 Aspirin (Ecotrin Tab) 81 mg DAILY PO 08/22/16 09:00 09/21/16 08:59 08/24/16 08:07 81 MG Atorvastatin Calcium (Lipitor Tab) 10 mg DAILY PO 08/22/16 09:00 09/21/16 08:59 08/24/16 08:07 10 MG Ferrous Sulfate (Feosol Tab) 325 mg BID PO 08/21/16 21:00 09/20/16 20:59 08/24/16 08:08 325 MG Furosemide (Lasix tab) 20 mg Q2D@1800 PO 08/21/16 20:00 09/20/16 19:59 08/23/16 18:03 20 MG Levothyroxine Sodium (Synthroid Tab) 75 mcg DAILYBB PO 08/22/16 06:00 09/21/16 05:59 08/24/16 06:17 75 MCG Lorazepam (Ativan Tab) 1 mg TID PRN PO 08/21/16 18:15 09/20/16 18:14 08/23/16 18:50 1 MG Mirtazapine (Remeron Tab) 7.5 mg HS PO 08/21/16 21:00 09/20/16 20:59 08/23/16 21:09 7.5 MG Pantoprazole Sodium (Protonix Tab) 40 mg DAILY PO 08/22/16 09:00 09/21/16 08:59 08/24/16 08:08 40 MG Nifedipine (Procardia Xl Tab) 30 mg DAILY PO 08/22/16 09:00 09/21/16 08:59 Future Hold 08/22/16 07:42 30 MG Metoprolol Tartrate (Lopressor Iv) 5 mg Q6 PRN IV 08/22/16 09:30 09/21/16 09:29 Metoprolol Tartrate (Lopressor Tab) 12.5 mg BID PO 08/22/16 21:00 09/21/16 20:59 08/24/16 08:07 12.5 MG Albuterol Sulfate (Ventolin 0.083% 2.5MG/3ML Neb) 2.5 mg Q6R PRN INH 08/23/16 04:00 09/22/16 03:59 08/23/16 22:42 2.5 MG Heparin Sodium (Porcine) (Heparin Sq 5000 Unit/0.5ml) 5,000 unit Q12 SQ 08/23/16 21:00 09/22/16 20:59 08/24/16 08:10 5,000 UNIT Levofloxacin (Levaquin Tab) 500 mg Q2D@1400 PO 08/23/16 14:00 08/31/16 13:59 08/23/16 14:12 500 MG Polyethylene (Miralax Powder Packet) 17 gm DAILY PRN PO 08/23/16 12:00 09/22/16 11:59 Docusate Sodium (coLACE CAP) 100 mg BID PO 08/23/16 12:00 09/22/16 11:59 08/24/16 08:08 100 MG I & O: 24-Hour Column 08/24/16 08:00 Intake Total 788 ml Output Total 770 ml Balance 18 ml Vital Signs: Date Time Temp Pulse Resp B/P Pulse Ox O2 Delivery O2 Flow Rate FiO2 08/24/16 12:00 Nasal Cannula 4.0 08/24/16 11:35 36.8 76 18 118/66 97 Nasal Cannula 4.0 08/24/16 08:00 Nasal Cannula 4.0 08/24/16 07:53 36.4 74 20 135/65 96 Nasal Cannula 4.0 08/24/16 06:19 153/68 08/24/16 04:00 Nasal Cannula 4.0 08/24/16 03:11 36.4 76 22 89/53 92 Nasal Cannula 4.0 08/24/16 00:02 Nasal Cannula 4.0 08/23/16 23:35 37.1 76 19 94 Nasal Cannula 4.0 08/23/16 23:02 60 145/55 08/23/16 22:42 82 22 90 Nasal Cannula 4.0 08/23/16 20:00 91 Nasal Cannula 2.0 08/23/16 19:34 36.6 77 16 130/57 91 Nasal Cannula 4.0 08/23/16 16:19 36.9 73 18 130/67 91 Nasal Cannula 2.0 08/23/16 16:00 91 Nasal Cannula 2.0 Laboratory Results: Last 24 Hours Test 08/23/16 15:35 08/24/16 05:15 08/24/16 09:50 Sodium Level 127 mmol/L 130 mmol/L Potassium Level 4.5 mmol/L 4.4 mmol/L Chloride Level 90 mmol/L 92 mmol/L Carbon Dioxide Level 26 mmol/L 27 mmol/L Anion Gap 11.0 mmol/L 11.0 mmol/L Blood Urea Nitrogen 47 mg/dl 46 mg/dl Creatinine 2.60 mg/dl 2.50 mg/dl Est Creatinine Clear Calc Drug Dose 12.3 ml/min 12.7 ml/min Estimated GFR () 18.7 19.6 Estimated GFR (Non- 16.2 17.0 BUN/Creatinine Ratio 18.0 18.3 Random Glucose 105 mg/dl 90 mg/dl Calcium Level 8.0 mg/dl 7.9 mg/dl White Blood Count 5.56 K/uL Red Blood Count 2.38 M/uL Hemoglobin 7.7 g/dL 8.3 g/dL Hematocrit 23.0 % 25.1 % Mean Corpuscular Volume 96.6 fL Mean Corpuscular Hemoglobin 32.4 pg Mean Corpuscular Hemoglobin Concent 33.5 g/dl RDW Standard Deviation 48.9 fL RDW Coefficient of Variation 13.9 % Platelet Count 196 K/uL Mean Platelet Volume 10.0 fL Magnesium Level 2.8 mg/dl
--- NOTE | 2016-08-24 17:52 | Progress Note ---
Internal Med Progress Note Date of Service: Aug 24, 2016. Provider Documentation: SUBJECTIVE: worsening of SOB requiring more 02 on 4 L via nasal canula ( not on home 02 ) very anxious OBJECTIVE: Vital Signs-as noted below Exam: General Appearance: elderly female , some what anxious , no apparent distress Head: normocephalic Eyes: normal inspection ENT: hearing grossly normal Neck: supple, no thyromegaly , trachea midline Respiratory/Chest: no respiratory distress, + decreased breath sounds Cardiovascular: regular rate, rhythm, no edema, normal peripheral pulses Abdomen/GI: normal bowel sounds, non tender, soft Extremities/Musculoskeletal: trace bilat lower ext edema Neurologic/Psych: no motor/sensory deficits, alert, normal mood/affect, oriented x 3 Skin: normal color, warm/dry Lab data as noted below. ASSESSMENT & PLAN: SOB /WORSENING OF PLEURAL EFFUSION : appreciate input form Pulmonology Cxray shows progression of pulmonary effusion on left side will need Thoracentesis -possible tomorrow plural fluid needs to be sent for cytology to rule out malignancy repeat Cxray in AM monitor in tele PERICARDIAL EFFUSION - incidental finding on CT abd/pelvis; large, 14mm - asymptomatic, no shortness of breath, BP stable - ECHO : Small to medium sized pericardial effusion. There are no echocardiographic indications of cardiac tamponade. The pericardial space suggests organizing pericardial effusion. The left ventricle is normal in size. There is moderate concentric left ventricular hypertrophy. Ejection Fraction = 55-60%. -CT chest : moderate to large pericardial effusion , moderate left and small rt pleural effusions with associated lingular and bilat lower lobe opacities which favor atelectasis _Cardiology consult appreciated -no evidence of cardiac tamponade or hemodynamic compromise monitor in tele given left sided pleural effusion associated with pericardial effusion -need to evaluate for inflammatory /Rheumatoid disease - NORTH -pending rheumatoid factor -negative -ESR mildly elevated PNEUMONIA - Cxary Left lower lobe infiltrate CT chest moderate left and rt sided pleural effusion -Pulmonology eval requested appreciate input given the location of infiltrate concern for aspiration speech eval requested aspiration precaution on Levaquin , ( pt is allergic to PCN ) ATRIAL FLUTTER, - paroxysmal atrial flutter with controlled rate -new finding -possible due to Pericardial effusion no symptom of dizzy spell or lightheadedness HR remains in low 80's -rate controlled -no IV anticoagulation until further evaluation for pericardial effusion - cardiology following -low dose beta maliha added for rhythm control -hold for bradycardia CKD STAGE IV - baseline creat runs in the high 1's - low 2's - Cr improved 2.9 -> 2.5 - continue to monitor, avoid nephrotoxic agents when able -nephrology consulted -appreciate input HYPERKALEMIA: resolved keep K level ~ 4 given cardiac arrhythmia /paroxysmal afib /flutter low K diet Nephrology consulted -pt follows with Dr Hwang in put pt SIADH - with chronic hyponatremia -follow PRP CHRONIC ANEMIA - due to CKD, receives Procrit injections - monitor H&H tx for Hb < 7 HTN - BP stable, -hold Nifedipine started on low dose Lopressor 12.5 mg PO BID HYPOTHYROIDISM - TSH WNL - continue levothyroxine THORACIC AORTIC ANEURYSM - stable on CT abd today - continue to monitor as an outpatient DVT PROPHYLAXIS - sub q heparin CODE STATUS - Patient is a full code DVT PROPHYLAXIS sub q heparin DISPOSITION lives at home with and daughter PT/OT eval prior to discharge may need 2 step 02 assessment if continue to require supplemental 02 social service consulted for discharge planning Medicine follow up with Dr Quevedo Vital Signs: Date Time Temp Pulse Resp B/P Pulse Ox O2 Delivery O2 Flow Rate FiO2 08/24/16 16:00 Nasal Cannula 4.0 08/24/16 15:07 36.7 76 20 144/64 99 Nasal Cannula 4.0 08/24/16 12:00 Nasal Cannula 4.0 08/24/16 11:35 36.8 76 18 118/66 97 Nasal Cannula 4.0 08/24/16 08:00 Nasal Cannula 4.0 08/24/16 07:53 36.4 74 20 135/65 96 Nasal Cannula 4.0 08/24/16 06:19 153/68 08/24/16 04:00 Nasal Cannula 4.0 08/24/16 03:11 36.4 76 22 89/53 92 Nasal Cannula 4.0 08/24/16 00:02 Nasal Cannula 4.0 08/23/16 23:35 37.1 76 19 94 Nasal Cannula 4.0 08/23/16 23:02 60 145/55 08/23/16 22:42 82 22 90 Nasal Cannula 4.0 08/23/16 20:00 91 Nasal Cannula 2.0 08/23/16 19:34 36.6 77 16 130/57 91 Nasal Cannula 4.0 Lab Results: Results Past 24 Hours Test 08/24/16 05:15 08/24/16 09:50 Range/Units White Blood Count 5.56 4.8-10.8 K/uL Red Blood Count 2.38 4.2-5.4 M/uL Hemoglobin 7.7 8.3 12.0-16.0 g/dL Hematocrit 23.0 25.1 37-47 % Mean Corpuscular Volume 96.6 80-100 fL Mean Corpuscular Hemoglobin 32.4 25-34 pg Mean Corpuscular Hemoglobin Concent 33.5 32-36 g/dl RDW Standard Deviation 48.9 36.4-46.3 fL RDW Coefficient of Variation 13.9 11.5-14.5 % Platelet Count 196 130-400 K/uL Mean Platelet Volume 10.0 7.4-10.4 fL Sodium Level 130 136-145 mmol/L Potassium Level 4.4 3.5-5.1 mmol/L Chloride Level 92 98-107 mmol/L Carbon Dioxide Level 27 21-32 mmol/L Anion Gap 11.0 3-11 mmol/L Blood Urea Nitrogen 46 7-18 mg/dl Creatinine 2.50 0.60-1.20 mg/dl Est Creatinine Clear Calc Drug Dose 12.7 ml/min Estimated GFR () 19.6 Estimated GFR (Non- 17.0 BUN/Creatinine Ratio 18.3 10-20 Random Glucose 90 70-99 mg/dl Calcium Level 7.9 8.5-10.1 mg/dl Magnesium Level 2.8 1.8-2.4 mg/dl Microbiology Results 08/23/16 Gram Stain - Final, Resulted 08/23/16 Sputum Culture, Resulted Pending
[2016-08-24] MEDS: LORAZEPAM 1 MG TAB PO PRN (19:34)
[2016-08-24] MEDS: MIRTAZAPINE TAB 15 MG TAB PO SCH (20:20)
[2016-08-24] MEDS: ACETAMINOPHEN 325 MG TAB PO PRN (20:23)
[2016-08-25] MEDS: LORAZEPAM 1 MG TAB PO PRN ×2 (03:54→08:30)
[2016-08-25 03:59] VITALS: BP 157/73; PULSE 68; TEMP 36.7; O2SAT 98
[2016-08-25] MEDS: HEPARIN SOD 5000 UNIT/0.5 ML CARP SQ SCH ×3 (05:26→20:19)
[2016-08-25] MEDS: LEVOTHYROXINE 75 MCG TAB PO SCH (05:37)
[2016-08-25 06:26] LABS: HEMATOCRIT 21.1 % (37-47); MEAN CELL VOLUME 97.2 fL (80-100); MEAN CORPUSCULAR HEMOGLOBIN 32.7 pg (25-34); MEAN CORPUSCULAR HGB CONC 33.6 g/dl (32-36); MEAN PLATELET VOLUME 9.6 fL (7.4-10.4); PLATELET COUNT 218 K/uL (130-400); RED BLOOD COUNT 2.17 M/uL (4.2-5.4); WHITE BLOOD COUNT 4.13 K/uL (4.8-10.8)
[2016-08-25 06:44] LABS: BUN/CREATININE RATIO 18.5 (10-20); CALCIUM 8.1 mg/dl (8.5-10.1); CREATININE 2.2 mg/dl (0.60-1.20); MAGNESIUM 2.8 mg/dl (1.8-2.4); POTASSIUM 4.2 mmol/L (3.5-5.1)
--- NOTE | 2016-08-25 07:33 | Nephrology Progress Note ---
Nephrology Progress Note Date of Service: Aug 25, 2016. Subjective 85 yo female with roger on ckd and hyponatremia in setting of stable pericaridal effusion and pleural effusions with sob. pt tentatively planned for a thoracentesis today. sob is stable. shoulder pain has improved. has chronic back pain at baseline. does have significant anxiety and nervous for the procedure today. Objective Date Time Temp Pulse Resp B/P Pulse Ox O2 Delivery O2 Flow Rate FiO2 08/25/16 04:00 Nasal Cannula 4.0 08/25/16 03:59 36.7 68 19 157/73 98 Nasal Cannula 4.0 08/24/16 23:59 Nasal Cannula 4.0 08/24/16 23:55 36.7 71 18 125/70 99 Nasal Cannula 4.0 08/24/16 20:00 Nasal Cannula 4.0 08/24/16 19:04 36.7 86 20 138/62 99 Nasal Cannula 4.0 08/24/16 16:00 Nasal Cannula 4.0 08/24/16 15:07 36.7 76 20 144/64 99 Nasal Cannula 4.0 08/24/16 12:00 Nasal Cannula 4.0 08/24/16 11:35 36.8 76 18 118/66 97 Nasal Cannula 4.0 08/24/16 08:00 Nasal Cannula 4.0 08/24/16 07:53 36.4 74 20 135/65 96 Nasal Cannula 4.0 Physical Exam: General-aaox3 Eyes-no scleral icterus ENT-mmm Neck-supple Lungs-decreased at left base Heart-regular Abdomen-bs+ s/nt/nd Extremities-no c/c/+mild edema Neuro-nonfocal Current Inpatient Medications Medications (Trade) Dose Ordered Sig/Jassi Route Start Time Stop Time Status Last Admin Dose Admin Acetaminophen (Tylenol Tab) 650 mg Q4H PRN PO 08/21/16 17:30 09/20/16 17:29 08/24/16 20:23 650 MG Ondansetron HCl (Zofran Inj) 4 mg Q6H PRN IV 08/21/16 17:30 09/20/16 17:29 08/23/16 17:18 4 MG Levofloxacin (Consult) 1 ea UD PRN N/A 08/21/16 19:49 09/20/16 19:48 Aspirin (Ecotrin Tab) 81 mg DAILY PO 08/22/16 09:00 09/21/16 08:59 08/24/16 08:07 81 MG Atorvastatin Calcium (Lipitor Tab) 10 mg DAILY PO 08/22/16 09:00 09/21/16 08:59 08/24/16 08:07 10 MG Ferrous Sulfate (Feosol Tab) 325 mg BID PO 08/21/16 21:00 09/20/16 20:59 08/24/16 20:19 325 MG Furosemide (Lasix tab) 20 mg Q2D@1800 PO 08/21/16 20:00 09/20/16 19:59 08/23/16 18:03 20 MG Levothyroxine Sodium (Synthroid Tab) 75 mcg DAILYBB PO 08/22/16 06:00 09/21/16 05:59 08/25/16 05:37 75 MCG Lorazepam (Ativan Tab) 1 mg TID PRN PO 08/21/16 18:15 09/20/16 18:14 08/25/16 03:54 1 MG Mirtazapine (Remeron Tab) 7.5 mg HS PO 08/21/16 21:00 09/20/16 20:59 08/24/16 20:20 7.5 MG Pantoprazole Sodium (Protonix Tab) 40 mg DAILY PO 08/22/16 09:00 09/21/16 08:59 08/24/16 08:08 40 MG Nifedipine (Procardia Xl Tab) 30 mg DAILY PO 08/22/16 09:00 09/21/16 08:59 Future Hold 08/22/16 07:42 30 MG Metoprolol Tartrate (Lopressor Iv) 5 mg Q6 PRN IV 08/22/16 09:30 09/21/16 09:29 Metoprolol Tartrate (Lopressor Tab) 12.5 mg BID PO 08/22/16 21:00 09/21/16 20:59 08/24/16 20:17 12.5 MG Albuterol Sulfate (Ventolin 0.083% 2.5MG/3ML Neb) 2.5 mg Q6R PRN INH 08/23/16 04:00 09/22/16 03:59 08/23/16 22:42 2.5 MG Heparin Sodium (Porcine) (Heparin Sq 5000 Unit/0.5ml) 5,000 unit Q12 SQ 08/23/16 21:00 09/22/16 20:59 08/25/16 05:26 5,000 UNIT Levofloxacin (Levaquin Tab) 500 mg Q2D@1400 PO 08/23/16 14:00 08/31/16 13:59 08/23/16 14:12 500 MG Polyethylene (Miralax Powder Packet) 17 gm DAILY PRN PO 08/23/16 12:00 09/22/16 11:59 Docusate Sodium (coLACE CAP) 100 mg BID PO 08/23/16 12:00 09/22/16 11:59 08/24/16 20:18 100 MG Last 24 Hours Test 08/24/16 09:50 08/25/16 05:15 Hemoglobin 8.3 g/dL 7.1 g/dL Hematocrit 25.1 % 21.1 % White Blood Count 4.13 K/uL Red Blood Count 2.17 M/uL Mean Corpuscular Volume 97.2 fL Mean Corpuscular Hemoglobin 32.7 pg Mean Corpuscular Hemoglobin Concent 33.6 g/dl RDW Standard Deviation 49.6 fL RDW Coefficient of Variation 14.0 % Platelet Count 218 K/uL Mean Platelet Volume 9.6 fL Sodium Level 130 mmol/L Potassium Level 4.2 mmol/L Chloride Level 95 mmol/L Carbon Dioxide Level 27 mmol/L Anion Gap 8.0 mmol/L Blood Urea Nitrogen 41 mg/dl Creatinine 2.20 mg/dl Est Creatinine Clear Calc Drug Dose 14.4 ml/min Estimated GFR () 22.9 Estimated GFR (Non- 19.8 BUN/Creatinine Ratio 18.5 Random Glucose 84 mg/dl Calcium Level 8.1 mg/dl Magnesium Level 2.8 mg/dl Assessment & Plan hyponatremia-has siadh of unclear etiology-on fluid restriction at home. sodium levels improved to 130. on a fluid restriction. continue the fluid restriction. sodium levels are stable. ROGER on ckd-likely atn. creatinine went from 2.1 to 2.9 and now is 2.2. no role for dialysis. close to baseline now. Anemia of renal Failure-on procrit as an outpt and will continue to give intermittent doses while in the hospital. had an injection on thursday. hg levels did drop significantly. may benefit from a blood transfusion if patient is agreeable. will recheck iron levels tomorrow. hyperkalemia-has resolved and k levels are normalized.
[2016-08-25 07:37] VITALS: BP 193/64; PULSE 74; TEMP 36.7; O2SAT 95
--- NOTE | 2016-08-25 07:54 | PULMONARY PROGRESS NOTE ---
DATE: 08/25/2016 The patient is comfortable this morning, sitting up at about 30 degrees. Pulmonary notes, cardiology notes and notes from Dr. Hwang reviewed. Echocardiogram reveals fairly well-preserved left ventricular function with a mild to moderate sized pericardial effusion. CT scan of the chest reveals fairly large left-sided pleural effusion with some atelectasis of the lingula and bilateral lower lobe opacities favoring atelectasis. The patient has significant anemia, has chronic kidney disease, without other significant problems. She has been a nonsmoker. We will attempt to get a thoracentesis with Oziel Floyd PA-C, today. I discussed this with her and she was agreeable. Dr. Rosales had spoken with her about this as well. PHYSICAL EXAMINATION: GENERAL: She is comfortable and pleasant at the present time. VITAL SIGNS: Her blood pressure is 157/73, oxygen saturation 98% on 4 liters and she is afebrile. Weight is 57.9 kilograms which is stable from 08/21/2016. I\T\O, 440 in and 1150 out. HEENT: Unremarkable. No adenopathy is noted. She does have accentuation of the kyphotic curve of the thoracic spine. HEART: Regular rate and rhythm, 1/6 systolic murmur heard at the apex. LUNGS: Reveal decreased breath sounds bilaterally. I do not detect any crackles or rales. ABDOMEN: Soft and nontender. She has no cyanosis, clubbing or edema. Electrocardiogram reveals atrial flutter, that was done on 08/23/2016, that is new. Nonspecific ST-T wave changes were noted as well. CT scan and chest films are noted as above. LABORATORY WORK: Stable with a creatinine of 2.2. Urinalysis revealed few inflammatory cells, some hyaline casts, epithelial cells. Sed rate was 44, urine osmolality 381. Sputum Gram stain revealed moderate number of inflammatory cells and epithelial cells as well. IMPRESSION: 1. Left pleural effusion. This is associated with some atelectatic changes at the left base. Certainly, pneumonia is a possibility, maybe an etiology for her shortness of breath. 2. Chronic kidney disease, elevated sedimentation rate, pericardial effusion and anemia. One would think a vasculitis or rheumatologic disorder would be associated with that constitution of symptoms. RECOMMENDATIONS: 1. At this point, I will speak with Oziel Kroner, PA-C, this morning and see if a thoracentesis could be done in the left hemithorax for therapeutic and diagnostic consideration. 2. Continue on her present antimicrobial agents including the Levaquin 500 mg IV every 48 hours. 3. Incentive spirometry. Overall, the patient is stable this morning. I discussed the thoracentesis with her and she states she is looking forward to getting that done today.
[2016-08-25] MEDS: ATORVASTATIN 10 MG TAB PO SCH (08:29)
[2016-08-25] MEDS: FERROUS SULFATE 325 MG TAB PO SCH ×2 (08:29→20:16)
[2016-08-25] MEDS: ASPIRIN 81 MG ECTAB PO SCH (08:29)
[2016-08-25] MEDS: PANTOprazole SOD 40 MG TAB PO SCH ×2 (08:30→20:16)
[2016-08-25] MEDS: ACETAMINOPHEN 325 MG TAB PO PRN (08:30)
[2016-08-25] MEDS: DOCUSATE SODIUM 100 MG CAP PO SCH ×2 (08:30→20:16)
[2016-08-25] MEDS: METOPROLOL TARTRATE 25 MG TAB PO SCH ×2 (08:33→20:16)
[2016-08-25 09:03] LABS: HEMATOCRIT 25.1 % (37-47)
--- NOTE | 2016-08-25 10:22 | Cardiology Follow-Up ---
Subjective General Date of Service: Aug 25, 2016. Chief Complaint: SOB Pt evaluation today including: conversation w/ patient, physical exam, chart review, lab review, review of studies, review of inpatient medication list History of Present Illness Patient feeling ok this AM. Primary concern is back pain sitting in bed this AM. She denies SOB or CP. She denies cough, fever, chills. No orthopnea, PND or LE edema. Allergies Coded Allergies: Penicillins (Verified Allergy, Intermediate, HIVES, 08/21/16) Iron Sucrose (Unverified Adverse Reaction, Mild, n&v, abd pain, 08/21/16) Social History Smoking Status: Never Smoker Hx Tobacco Use In Past Year?: No Hx Alcohol Use - Type And Amou: No Hx Substance Use - Type And Am: No Problem List Medical Problems: (1) Abdominal pain Status: Acute (2) Acute on chronic renal insufficiency Status: Acute (3) Bilateral pleural effusion Status: Acute (4) Constipation Status: Acute (5) Dehydration Status: Acute (6) Diarrhea Status: Acute (7) Elevated serum creatinine Status: Acute (8) Fall Status: Acute (9) Generalized weakness Status: Acute (10) Heart palpitations Status: Acute (11) Hypomagnesemia Status: Acute (12) New onset atrial flutter Status: Acute (13) Pericardial effusion Status: Acute (14) Pneumonia involving left lung Status: Acute (15) Precordial chest pain Status: Acute (16) PVC's (premature ventricular contractions) Status: Acute (17) Ribs, multiple fractures Status: Acute (18) Weakness Status: Acute (19) Weakness Status: Acute Review of Systems Respiratory: No cough, No dyspnea at rest, No hemoptysis, No shortness of breath, No sputum, No wheezing Cardiac: No PND, No chest pain, No edema, No orthopnea, No palpitations Physical Exam Vital Signs Last Vital Signs Documentation Date Time Temp Pulse Resp B/P Pulse Ox O2 Delivery O2 Flow Rate FiO2 08/25/16 07:37 36.7 74 20 193/64 95 Nasal Cannula 4.0 Physical Exam Constitutional: General Apperance: cachectic Level of Distress: mild distress, chronically ill Psychiatric: Mental Status: active & alert Orientation: to time, to place, to person Head: normocephalic Eyes: Pupils: PERRLA Neck: supple Lungs: Auscultation: deminished air movement (L>R) Cardiovascular: Heart Auscultation: no murmurs, irregular rate rhythm Abdomen: Bowel Sounds: normal Inspection & Palpation: soft, non-distended Extremities: no edema Assessment and Plan Assessment and Plan IMPRESSION: 1. Pneumonia with possible aspiration. 2. large left sided pleural effusion - possible thoracentesis today 3. Pericardial effusion which appears old and organized. 4. Paroxysmal atrial flutter. - Recurrent flutter this AM, rate controlled 5. Chronic renal insufficiency. 6. Chronic anemia, on Procrit. PLAN: Plan for diagnostic and therapeutic thoracentesis today. She has recurrent atrial flutter with controlled ventricular rate this AM, asymptomatic. She is deemed not an anticoagulation candidate due to age, fall risk, and significant anemia. Continue ASA. Continue low dose beta maliha. Consideration for amiodarone to maintain NSR however given pulmonary status and that she is asymptomatic, risks > benefits of antiarrhythmic. Case discussed with Dr. Navarro. Will follow. CARDIOLOGY ATTENDING ADDENDUM: The patient was seen and personally examined. Agree with Birgit Irizarry PA-C's findings and plans as documented above with additional information as noted below. S: no acute distress. Denies SOB, rate controlled AFL on telemetry. Exam: decreased BS bilaterally, irregular rhythm, no rub Ext: trace edema Impression: Admitted with generalized weakness. Echo images reviewed from study performed on admission- a moderate circumferential pericardial effusion was present without evidence of tamponade. The appearance suggests some degree of chronicity. Moderate L pleural effusion, small R pleural effusion She is asymptomatic from the AFL, she is not a candidate for anticoagulation. ROGER, CKD Plan: Mild increase in NORTH noted, normal lyme screen, normal NORTH, normal Rheum factor. Given calculated GFR in the 14 ml/min / m 2, doubt will make much progress with the pleural effusion without thoracentesis. Will treat as if there is an inflammatory pericardial effusion. She is not a candidate for NSAIDS or high dose aspirin. Not candidate for colchicine due to low GFR. Will start low dose prednisone and taper over several weeks. Delmer Navarro, Laboratory Results Last 24 Hours Test 08/24/16 09:50 08/25/16 05:15 08/25/16 08:45 Hemoglobin 8.3 g/dL 7.1 g/dL 8.2 g/dL Hematocrit 25.1 % 21.1 % 25.1 % White Blood Count 4.13 K/uL Red Blood Count 2.17 M/uL Mean Corpuscular Volume 97.2 fL Mean Corpuscular Hemoglobin 32.7 pg Mean Corpuscular Hemoglobin Concent 33.6 g/dl RDW Standard Deviation 49.6 fL RDW Coefficient of Variation 14.0 % Platelet Count 218 K/uL Mean Platelet Volume 9.6 fL Sodium Level 130 mmol/L Potassium Level 4.2 mmol/L Chloride Level 95 mmol/L Carbon Dioxide Level 27 mmol/L Anion Gap 8.0 mmol/L Blood Urea Nitrogen 41 mg/dl Creatinine 2.20 mg/dl Est Creatinine Clear Calc Drug Dose 14.4 ml/min Estimated GFR () 22.9 Estimated GFR (Non- 19.8 BUN/Creatinine Ratio 18.5 Random Glucose 84 mg/dl Calcium Level 8.1 mg/dl Magnesium Level 2.8 mg/dl
--- NOTE | 2016-08-25 10:29 | DIAGNOSTIC IMAGING REPORT ---
CHEST ONE VIEW PORTABLE CLINICAL HISTORY: Left-sided pleural effusion. COMPARISON STUDY: Chest CT August 22, 2016 and chest radiograph August 24, 2016. FINDINGS: Enlargement of the cardiac silhouette is unchanged. Pulmonary edema persists although is slightly improved since prior exam. A moderate to large left pleural effusion is unchanged. A small right pleural effusion is unchanged. Left mid to lower lung airspace opacity persists. There is no pneumothorax. IMPRESSION: 1. No change in the moderate to large left and small right pleural effusions. 2. Persistent extensive left mid and lower lung opacity which may reflect consolidation or atelectasis. 3. Persistent, but slightly improved, pulmonary edema. 4. No change in moderate enlargement of the cardiac silhouette. Electronically signed by: Hayder Barber M.D. 08/25/2016 10:27 AM Dictated Date/Time: 08/25/2016 10:26 AM
[2016-08-25 12:11] VITALS: BP 132/54; PULSE 78; TEMP 36.9; O2SAT 97
[2016-08-25] MEDS: LEVOFLOXACIN 500 MG TAB PO SCH (14:13)
[2016-08-25] MEDS ORDERED: COLCHICINE 0.6 MG TAB PO ONE (15:00)
[2016-08-25] MEDS ORDERED: METHYLPREDNISOLONE IV 30 MG in SYRINGE 0 ML IV STA (15:26)
[2016-08-25 16:00] VITALS: BP 124/62; PULSE 68; TEMP 36.9; O2SAT 98
[2016-08-25] MEDS: FUROSEMIDE 20 MG TAB PO SCH (18:00)
--- NOTE | 2016-08-25 18:49 | Progress Note ---
Internal Med Progress Note Date of Service: Aug 25, 2016. Provider Documentation: SUBJECTIVE: offers no complain, says feels well no complain of SOB mentions of able to be OOB and walk with assistance today gets SOB with exertion requiring 4 L 02 ( was not on home o2 ) OBJECTIVE: Vital Signs-as noted below Exam: General Appearance: elderly female , some what anxious , no apparent distress Head: normocephalic Eyes: normal inspection ENT: hearing grossly normal Neck: supple, no thyromegaly , trachea midline Respiratory/Chest: no respiratory distress, + decreased breath sounds Cardiovascular: regular rate, rhythm, no edema, normal peripheral pulses Abdomen/GI: normal bowel sounds, non tender, soft Extremities/Musculoskeletal: trace bilat lower ext edema Neurologic/Psych: no motor/sensory deficits, alert, normal mood/affect, oriented x 3 Skin: normal color, warm/dry Lab data as noted below. ASSESSMENT & PLAN: SOB /WORSENING OF PLEURAL EFFUSION : appreciate input form Pulmonology Cxray shows progression of pulmonary effusion on left side pt is not overtly symptomatic D/w pt after much counselling willing to go for thoracentesis if it will provide her benefit ordered for Repeat CXray and Chest USG in AM will update Pulmonology team will benefit form Thoracentesis of left sided large pleural effusion for both therapeutic and diagnosis purposes plural fluid needs to be sent for cytology to rule out malignancy PERICARDIAL EFFUSION - incidental finding on CT abd/pelvis; large, 14mm - asymptomatic, no shortness of breath, BP stable - ECHO : Small to medium sized pericardial effusion. There are no echocardiographic indications of cardiac tamponade. The pericardial space suggests organizing pericardial effusion. The left ventricle is normal in size. There is moderate concentric left ventricular hypertrophy. Ejection Fraction = 55-60%. -CT chest : moderate to large pericardial effusion , moderate left and small rt pleural effusions with associated lingular and bilat lower lobe opacities which favor atelectasis _Cardiology consult appreciated -no evidence of cardiac tamponade or hemodynamic compromise monitor in tele given left sided pleural effusion associated with pericardial effusion - serology ordered to evaluate for inflammatory /Rheumatoid disease - NORTH / rheumatoid factor -negative -ESR mildly elevated PNEUMONIA - Cxary Left lower lobe infiltrate CT chest moderate left and rt sided pleural effusion -Pulmonology eval requested appreciate input given the location of infiltrate concern for aspiration speech eval requested -no evidence of overt aspiration noted pt continues to have severe GERD/acid reflux symptom cont PPI aspiration precaution on Levaquin , ( pt is allergic to PCN ) ATRIAL FLUTTER, - paroxysmal atrial flutter with controlled rate -new finding -possible due to Pericardial effusion no symptom of dizzy spell or lightheadedness HR remains in low 80's -rate controlled -no IV anticoagulation until further evaluation for pericardial effusion - cardiology following -low dose beta maliha added for rhythm control -hold for bradycardia CKD STAGE IV - baseline creat runs in the high 1's - low 2's - Cr improved 2.9 -> 2.5 -> 2.2 - continue to monitor, avoid nephrotoxic agents when able -nephrology consulted -appreciate input HYPERKALEMIA: resolved keep K level ~ 4 given cardiac arrhythmia /paroxysmal afib /flutter low K diet Nephrology consulted -pt follows with Dr Hwang in put pt SIADH - with chronic hyponatremia -follow PRP CHRONIC ANEMIA - due to CKD, receives Procrit injections - monitor H&H tx for Hb < 7 HTN - BP stable, -hold Nifedipine started on low dose Lopressor 12.5 mg PO BID HYPOTHYROIDISM - TSH WNL - continue levothyroxine THORACIC AORTIC ANEURYSM - stable on CT abd today - continue to monitor as an outpatient DVT PROPHYLAXIS - sub q heparin CODE STATUS - Patient is a full code DVT PROPHYLAXIS sub q heparin DISPOSITION lives at home with and daughter PT/OT eval prior to discharge may need 2 step 02 assessment if continue to require supplemental 02 social service consulted for discharge planning Medicine follow up with Dr Quevedo Vital Signs: Date Time Temp Pulse Resp B/P Pulse Ox O2 Delivery O2 Flow Rate FiO2 08/25/16 16:00 36.9 68 18 124/62 98 Nasal Cannula 4.0 08/25/16 16:00 Nasal Cannula 4.0 08/25/16 12:11 36.9 78 16 132/54 97 Nasal Cannula 4.0 08/25/16 12:00 Nasal Cannula 4.0 08/25/16 08:00 Nasal Cannula 4.0 08/25/16 07:37 36.7 74 20 193/64 95 Nasal Cannula 4.0 08/25/16 04:00 Nasal Cannula 4.0 08/25/16 03:59 36.7 68 19 157/73 98 Nasal Cannula 4.0 08/24/16 23:59 Nasal Cannula 4.0 08/24/16 23:55 36.7 71 18 125/70 99 Nasal Cannula 4.0 08/24/16 20:00 Nasal Cannula 4.0 Lab Results: Results Past 24 Hours Test 08/25/16 05:15 08/25/16 08:45 Range/Units White Blood Count 4.13 4.8-10.8 K/uL Red Blood Count 2.17 4.2-5.4 M/uL Hemoglobin 7.1 8.2 12.0-16.0 g/dL Hematocrit 21.1 25.1 37-47 % Mean Corpuscular Volume 97.2 80-100 fL Mean Corpuscular Hemoglobin 32.7 25-34 pg Mean Corpuscular Hemoglobin Concent 33.6 32-36 g/dl RDW Standard Deviation 49.6 36.4-46.3 fL RDW Coefficient of Variation 14.0 11.5-14.5 % Platelet Count 218 130-400 K/uL Mean Platelet Volume 9.6 7.4-10.4 fL Sodium Level 130 136-145 mmol/L Potassium Level 4.2 3.5-5.1 mmol/L Chloride Level 95 98-107 mmol/L Carbon Dioxide Level 27 21-32 mmol/L Anion Gap 8.0 3-11 mmol/L Blood Urea Nitrogen 41 7-18 mg/dl Creatinine 2.20 0.60-1.20 mg/dl Est Creatinine Clear Calc Drug Dose 14.4 ml/min Estimated GFR () 22.9 Estimated GFR (Non- 19.8 BUN/Creatinine Ratio 18.5 10-20 Random Glucose 84 70-99 mg/dl Calcium Level 8.1 8.5-10.1 mg/dl Magnesium Level 2.8 1.8-2.4 mg/dl
[2016-08-25] MEDS ORDERED: ALUMINUM/MAGNESIUM/SIMETH (MAALOX MAX) 30 ML UDC PO PRN (19:30)
[2016-08-25 19:47] VITALS: BP 161/67; PULSE 79; TEMP 36.9; O2SAT 97
[2016-08-25] MEDS: MIRTAZAPINE TAB 15 MG TAB PO SCH (20:16)
[2016-08-25 23:48] VITALS: BP 145/63; PULSE 63; TEMP 36.5; O2SAT 97
[2016-08-26] VITALS (10 sets, daily range): BP systolic 128–189; BP diastolic 54–73; PULSE 60–89; TEMP 36.4–36.8; O2SAT 96–100
[2016-08-26] MEDS: LEVOTHYROXINE 75 MCG TAB PO SCH (05:18)
[2016-08-26 06:11] LABS: HEMATOCRIT 26.4 % (37-47); MEAN CELL VOLUME 99.6 fL (80-100); MEAN CORPUSCULAR HEMOGLOBIN 32.5 pg (25-34); MEAN CORPUSCULAR HGB CONC 32.6 g/dl (32-36); MEAN PLATELET VOLUME 9.5 fL (7.4-10.4); PLATELET COUNT 258 K/uL (130-400); RED BLOOD COUNT 2.65 M/uL (4.2-5.4); WHITE BLOOD COUNT 2.83 K/uL (4.8-10.8)
[2016-08-26 06:54] LABS: BUN/CREATININE RATIO 20.5 (10-20); CALCIUM 8.5 mg/dl (8.5-10.1); MAGNESIUM 2.7 mg/dl (1.8-2.4); POTASSIUM 4.7 mmol/L (3.5-5.1)
[2016-08-26 07:00] LABS: FERRITIN 1732.2 ng/ml (8.0-388.0)
--- NOTE | 2016-08-26 07:04 | DIAGNOSTIC IMAGING REPORT ---
CHEST ONE VIEW PORTABLE CLINICAL HISTORY: Left-sided pleural effusion. COMPARISON STUDY: Chest radiograph August 25, 2016. FINDINGS: There is no pneumothorax. A moderate to large left pleural effusion is similar to prior exam. A small right pleural effusion is unchanged. Interstitial thickening persists. Enlargement of the cardiac silhouette is unchanged. IMPRESSION: 1. No significant change in the moderate to large left and small right pleural effusions. 2. Persistent pulmonary edema. 3. Stable enlargement of the cardiac silhouette. Electronically signed by: Hayder Barber M.D. 08/26/2016 7:02 AM Dictated Date/Time: 08/26/2016 6:59 AM
[2016-08-26] MEDS: PANTOprazole SOD 40 MG TAB PO SCH ×2 (07:38→19:27)
[2016-08-26] MEDS: ASPIRIN 81 MG ECTAB PO SCH (07:38)
[2016-08-26] MEDS: METOPROLOL TARTRATE 25 MG TAB PO SCH ×2 (07:38→19:28)
[2016-08-26] MEDS: ATORVASTATIN 10 MG TAB PO SCH (07:38)
[2016-08-26] MEDS: RANITIDINE HCL 150 MG TAB PO SCH (07:38)
[2016-08-26] MEDS: ACETAMINOPHEN 325 MG TAB PO PRN (07:38)
[2016-08-26] MEDS: DOCUSATE SODIUM 100 MG CAP PO SCH ×2 (07:39→19:27)
[2016-08-26] MEDS: FERROUS SULFATE 325 MG TAB PO SCH ×2 (07:39→19:27)
[2016-08-26] MEDS: HEPARIN SOD 5000 UNIT/0.5 ML CARP SQ SCH ×2 (07:41→19:29)
--- NOTE | 2016-08-26 07:52 | PULMONARY PROGRESS NOTE ---
DATE: 08/26/2016 The patient is comfortable this morning. Other than having some back pain probably related to compression fractures she has no complaints. She denies chest pain or shortness of breath, fevers, night sweats. Has not had any orthopnea. Her rhythm has been stable with a sinus rhythm with first degree AV block on the monitor. She is tolerating her medications well. PHYSICAL EXAMINATION: VITAL SIGNS: Stable and she is afebrile. HEENT: Unremarkable. No adenopathy is noted. HEART: Regular rate and rhythm, occasional ectopic beat. No gallops or murmurs are auscultated today. LUNGS: Reveal decreased breath sounds with dullness at the left base. She does have accentuation of kyphotic curve of the thoracic spine. Right lung is clear. ABDOMEN: Soft, nontender. EXTREMITIES: She has no cyanosis, clubbing or edema. Chest x-ray shows moderate to large left-sided pleural effusion, small right pleural effusion and changes consistent with pulmonary edema. Coagulation profile on the was unremarkable. PRP is stable with sodium 131, BUN is elevated at 41, creatinine of 2, CO2 is 28. Hemoglobin is 8.6 with a white count of 2.83. IMPRESSION: Left pleural effusion. This may be related to left ventricular dysfunction. The patient does have chronic kidney disease followed by Dr. Hwang and some atelectasis at the left lower lobe related to the pleural effusion. RECOMMENDATIONS: At this point, I spoke with the patient regarding thoracentesis and again she was agreeable this morning. Oziel Floyd PA-C to see if she can get is scheduled for today. I discussed the risks, complications and alternatives to the patient, she has signed consent yesterday. Overall, she is stable.
--- NOTE | 2016-08-26 08:43 | DIAGNOSTIC IMAGING REPORT ---
EFFUSION-CHEST/MEDIASTINUM CLINICAL HISTORY: Pleural effusion COMPARISON STUDY: Chest x-ray dated 08/26/2016 FINDINGS: There is a right pleural effusion with estimated volume of 370 cc. There is a left pleural effusion with estimated volume of 580 cc. There is underlying atelectatic lung. Both effusions were marked for possible subsequent thoracentesis. IMPRESSION: Bilateral pleural effusions. Electronically signed by: Mauro Sanchez M.D. 08/26/2016 8:41 AM Dictated Date/Time: 08/26/2016 8:40 AM
[2016-08-26] MEDS ORDERED: COLCHICINE 0.6 MG TAB PO SCH (09:00)
--- NOTE | 2016-08-26 10:10 | Cardiology Follow-Up ---
Subjective General Date of Service: Aug 26, 2016. Chief Complaint: SOB Pt evaluation today including: conversation w/ patient, physical exam, chart review, lab review, review of studies, conversation w/ family consultant, review of inpatient medication list History of Present Illness Patient feeling "poorly this AM". States she is more SOB at rest. Denies chest pain, palpitations, dizziness, orthopnea, PND or LE edema. No cough, fever, chills. Allergies Coded Allergies: Penicillins (Verified Allergy, Intermediate, HIVES, 08/21/16) Iron Sucrose (Unverified Adverse Reaction, Mild, n&v, abd pain, 08/21/16) Social History Smoking Status: Never Smoker Hx Tobacco Use In Past Year?: No Hx Alcohol Use - Type And Amou: No Hx Substance Use - Type And Am: No Problem List Medical Problems: (1) Abdominal pain Status: Acute (2) Acute on chronic renal insufficiency Status: Acute (3) Bilateral pleural effusion Status: Acute (4) Constipation Status: Acute (5) Dehydration Status: Acute (6) Diarrhea Status: Acute (7) Elevated serum creatinine Status: Acute (8) Fall Status: Acute (9) Generalized weakness Status: Acute (10) Heart palpitations Status: Acute (11) Hypomagnesemia Status: Acute (12) New onset atrial flutter Status: Acute (13) Pericardial effusion Status: Acute (14) Pneumonia involving left lung Status: Acute (15) Precordial chest pain Status: Acute (16) PVC's (premature ventricular contractions) Status: Acute (17) Ribs, multiple fractures Status: Acute (18) Weakness Status: Acute (19) Weakness Status: Acute Review of Systems Respiratory: + shortness of breath, No cough, No dyspnea at rest, No hemoptysis , No sputum, No wheezing Cardiac: No PND, No chest pain, No edema, No orthopnea, No palpitations Physical Exam Vital Signs Last Vital Signs Documentation Date Time Temp Pulse Resp B/P Pulse Ox O2 Delivery O2 Flow Rate FiO2 08/26/16 08:04 36.8 85 22 165/59 97 Room Air 08/26/16 04:00 3.0 Physical Exam Constitutional: Level of Distress: NAD, acutely ill, chronically ill Psychiatric: Mental Status: anxious Orientation: to time, to place, to person Head: normocephalic Eyes: Pupils: PERRLA Neck: supple Lungs: Auscultation: deminished air movement (L>R) Cardiovascular: Heart Auscultation: no murmurs, irregular rate rhythm Abdomen: Bowel Sounds: normal Inspection & Palpation: soft, non-distended Extremities: no edema Assessment and Plan Assessment and Plan IMPRESSION: 1. Pneumonia with possible aspiration. 2. large left sided pleural effusion - possible thoracentesis today 3. Pericardial effusion, moderate without hemodynamic compromise, likely old - mildly elevated ESR, negative NORTH, lyme and RF 4. Paroxysmal atrial flutter. Not an anticoagulation candidate. 5. Chronic renal insufficiency. 6. Chronic anemia, on Procrit. PLAN: Plan for diagnostic and therapeutic thoracentesis this afternoon. Continue ASA and low dose beta maliha for paroxysmal atrial flutter with controlled ventricular rate. No anticoagulation therapy given age, fall risk, anemia. Started on prednisone taper for pericardial effusion. Not able to give NSAIDS or colchicine due to low GFR. Plan for repeat limited echo prior to discharge. Case to be discussed with Dr. Navarro. Will follow. CARDIOLOGY ATTENDING ADDENDUM: The patient's case was discussed with HOWARD Oh. Agree with Birgit Irizarry PA-C's findings and plans as documented above. Laboratory Results Last 24 Hours Test 08/26/16 05:20 White Blood Count 2.83 K/uL Red Blood Count 2.65 M/uL Hemoglobin 8.6 g/dL Hematocrit 26.4 % Mean Corpuscular Volume 99.6 fL Mean Corpuscular Hemoglobin 32.5 pg Mean Corpuscular Hemoglobin Concent 32.6 g/dl RDW Standard Deviation 50.6 fL RDW Coefficient of Variation 14.0 % Platelet Count 258 K/uL Mean Platelet Volume 9.5 fL Sodium Level 131 mmol/L Potassium Level 4.7 mmol/L Chloride Level 94 mmol/L Carbon Dioxide Level 28 mmol/L Anion Gap 9.0 mmol/L Blood Urea Nitrogen 41 mg/dl Creatinine 2.00 mg/dl Est Creatinine Clear Calc Drug Dose 15.9 ml/min Estimated GFR () 25.7 Estimated GFR (Non- 22.2 BUN/Creatinine Ratio 20.5 Random Glucose 114 mg/dl Calcium Level 8.5 mg/dl Magnesium Level 2.7 mg/dl Iron Level 21 mcg/dl Total Iron Binding Capacity 161 mcg/dl Transferrin 126 mg/dl Transferrin % Saturation 12 % Ferritin 1732.2 ng/ml
--- NOTE | 2016-08-26 11:22 | Progress Note ---
Subjective Date of Service: Aug 26, 2016. Subjective Pt evaluation today including: conversation w/ patient, physical exam, lab review, review of studies, review of inpatient medication list Saw/examined the patient in room 231-1 Returned from ultrasound of chest this morning Currently seated in a chair +lightheadedness, +anxiety this morning breathing status about the same as yesterday tolerated breakfast well this morning Problem List Medical Problems: (1) Abdominal pain Status: Acute (2) Acute on chronic renal insufficiency Status: Acute (3) Bilateral pleural effusion Status: Acute (4) Constipation Status: Acute (5) Dehydration Status: Acute (6) Diarrhea Status: Acute (7) Elevated serum creatinine Status: Acute (8) Fall Status: Acute (9) Generalized weakness Status: Acute (10) Heart palpitations Status: Acute (11) Hypomagnesemia Status: Acute (12) New onset atrial flutter Status: Acute (13) Pericardial effusion Status: Acute (14) Pneumonia involving left lung Status: Acute (15) Precordial chest pain Status: Acute (16) PVC's (premature ventricular contractions) Status: Acute (17) Ribs, multiple fractures Status: Acute (18) Weakness Status: Acute (19) Weakness Status: Acute Review of Systems Constitutional: No chills, No fever Respiratory: + cough, + shortness of breath, No dyspnea on exertion, No sputum , No wheezing Cardiac: No chest pain, No edema, No palpitations Abdomen: No diarrhea, No nausea, No pain, No vomiting Psychiatric: + anxiety Medications Current Inpatient Medications Medications (Trade) Dose Ordered Sig/Jassi Route Start Time Stop Time Status Last Admin Dose Admin Acetaminophen (Tylenol Tab) 650 mg Q4H PRN PO 08/21/16 17:30 09/20/16 17:29 08/26/16 07:38 650 MG Ondansetron HCl (Zofran Inj) 4 mg Q6H PRN IV 08/21/16 17:30 09/20/16 17:29 08/23/16 17:18 4 MG Levofloxacin (Consult) 1 ea UD PRN N/A 08/21/16 19:49 09/20/16 19:48 Aspirin (Ecotrin Tab) 81 mg DAILY PO 08/22/16 09:00 09/21/16 08:59 08/26/16 07:38 81 MG Atorvastatin Calcium (Lipitor Tab) 10 mg DAILY PO 08/22/16 09:00 09/21/16 08:59 08/26/16 07:38 10 MG Ferrous Sulfate (Feosol Tab) 325 mg BID PO 08/21/16 21:00 09/20/16 20:59 08/26/16 07:39 325 MG Furosemide (Lasix tab) 20 mg Q2D@1800 PO 08/21/16 20:00 09/20/16 19:59 08/25/16 18:00 20 MG Levothyroxine Sodium (Synthroid Tab) 75 mcg DAILYBB PO 08/22/16 06:00 09/21/16 05:59 08/25/16 05:37 75 MCG Lorazepam (Ativan Tab) 1 mg TID PRN PO 08/21/16 18:15 09/20/16 18:14 08/25/16 08:30 1 MG Mirtazapine (Remeron Tab) 7.5 mg HS PO 08/21/16 21:00 09/20/16 20:59 08/25/16 20:16 7.5 MG Nifedipine (Procardia Xl Tab) 30 mg DAILY PO 08/22/16 09:00 09/21/16 08:59 Future Hold 08/22/16 07:42 30 MG Metoprolol Tartrate (Lopressor Iv) 5 mg Q6 PRN IV 08/22/16 09:30 09/21/16 09:29 Metoprolol Tartrate (Lopressor Tab) 12.5 mg BID PO 08/22/16 21:00 09/21/16 20:59 08/26/16 07:38 12.5 MG Albuterol Sulfate (Ventolin 0.083% 2.5MG/3ML Neb) 2.5 mg Q6R PRN INH 08/23/16 04:00 09/22/16 03:59 08/23/16 22:42 2.5 MG Heparin Sodium (Porcine) (Heparin Sq 5000 Unit/0.5ml) 5,000 unit Q12 SQ 08/23/16 21:00 09/22/16 20:59 08/26/16 07:41 5,000 UNIT Levofloxacin (Levaquin Tab) 500 mg Q2D@1400 PO 08/23/16 14:00 08/31/16 13:59 08/25/16 14:13 500 MG Polyethylene (Miralax Powder Packet) 17 gm DAILY PRN PO 08/23/16 12:00 09/22/16 11:59 Docusate Sodium (coLACE CAP) 100 mg BID PO 08/23/16 12:00 09/22/16 11:59 08/26/16 07:39 100 MG Prednisone (PredniSONE TAB) 20 mg DAILY PO 08/26/16 09:00 09/25/16 08:59 08/26/16 07:38 20 MG Pantoprazole Sodium (Protonix Tab) 40 mg BID PO 08/25/16 21:00 09/24/16 20:59 08/26/16 07:38 40 MG Al Hydrox/Mg Hydrox/Simethicone (Maalox Max Susp) 30 ml Q6H PRN PO 08/25/16 19:30 09/24/16 19:29 Ranitidine HCl (zANTac TAB) 150 mg QAM PO 08/26/16 09:00 09/25/16 08:59 08/26/16 07:38 150 MG Objective Vital Signs Date Time Temp Pulse Resp B/P Pulse Ox O2 Delivery O2 Flow Rate FiO2 08/26/16 08:04 36.8 85 22 165/59 97 Room Air 08/26/16 08:00 Nasal Cannula 08/26/16 04:00 Nasal Cannula 3.0 08/26/16 03:39 36.4 60 18 150/71 99 Nasal Cannula 2.0 08/26/16 00:00 Nasal Cannula 3.0 08/25/16 23:48 36.5 63 21 145/63 97 Nasal Cannula 3.0 08/25/16 20:00 Nasal Cannula 4.0 08/25/16 19:47 36.9 79 20 161/67 97 Nasal Cannula 2.0 08/25/16 16:00 36.9 68 18 124/62 98 Nasal Cannula 4.0 08/25/16 16:00 Nasal Cannula 4.0 08/25/16 12:11 36.9 78 16 132/54 97 Nasal Cannula 4.0 08/25/16 12:00 Nasal Cannula 4.0 Physical Exam General Appearance: no apparent distress Respiratory/Chest: no respiratory distress, no accessory muscle use, + decreased breath sounds Cardiovascular: + irregularly irregular Abdomen: normal bowel sounds, non tender, soft Extremities: normal inspection, no pedal edema Neurologic/Psychiatric: alert, oriented x 3, + pertinent finding (+anxious) Laboratory Results Last 24 Hours Test 08/26/16 05:20 White Blood Count 2.83 K/uL Red Blood Count 2.65 M/uL Hemoglobin 8.6 g/dL Hematocrit 26.4 % Mean Corpuscular Volume 99.6 fL Mean Corpuscular Hemoglobin 32.5 pg Mean Corpuscular Hemoglobin Concent 32.6 g/dl RDW Standard Deviation 50.6 fL RDW Coefficient of Variation 14.0 % Platelet Count 258 K/uL Mean Platelet Volume 9.5 fL Sodium Level 131 mmol/L Potassium Level 4.7 mmol/L Chloride Level 94 mmol/L Carbon Dioxide Level 28 mmol/L Anion Gap 9.0 mmol/L Blood Urea Nitrogen 41 mg/dl Creatinine 2.00 mg/dl Est Creatinine Clear Calc Drug Dose 15.9 ml/min Estimated GFR () 25.7 Estimated GFR (Non- 22.2 BUN/Creatinine Ratio 20.5 Random Glucose 114 mg/dl Calcium Level 8.5 mg/dl Magnesium Level 2.7 mg/dl Iron Level 21 mcg/dl Total Iron Binding Capacity 161 mcg/dl Transferrin 126 mg/dl Transferrin % Saturation 12 % Ferritin 1732.2 ng/ml Assessment and Plan This is an 85 year old female with PMH of CKD stage IV, anemia of chronic disease, atrial flutter, HTN, hypothyroidism, anxiety, SIADH presented to the ER on August 21 with body aches and chills - found to have pericardial effusion - later found to have pneumonia and bilateral pleural effusions. She has been requiring oxygen to keep oxygen saturation > 88%; her kidney function was worsened on admission, though now improving. Acute Respiratory Failure Secondary to Pneumonia and Bilateral Pleural Effusions * acute respiratory failure - requiring continuous oxygen therapy * this is likely secondary to pneumonia and pleural effusions * CHEST ONE VIEW PORTABLE IMPRESSION: 1. No significant change in the moderate to large left and small right pleural effusions. 2. Persistent pulmonary edema. 3. Stable enlargement of the cardiac silhouette. * Chest U/S done this morning - marked for thoracentesis * Plan for thoracentesis later today - likely parapneumonic pleural effusions * Continue Levaquin for pneumonia * Appreciate pulmonology input Pericardial Effusion * Echo done on 08/21 Small to medium sized pericardial effusion * initially conservative management to treat pneumonia as above * started on prednisone taper - currently on prednisone 20mg * repeat limited echo prior to discharge * appreciate cardiology input Acute Kidney Injury superimposed on CKD stage IV, resolved * creat initially up to 2.6 * likely related to pneumonia; conservative management * continue Lasix every other day * creat now down to 2.0 - back to baseline * appreciate nephrology input Atrial Flutter, rate controlled * rhythm - irregularly irregular * currently rate controlled; continue b-maliha * continue cardiac medications Anemia of Chronic Disease * Hgb - currently stable * no transfusions necessary * continue Procrit * PPI BID * monitor Hgb Hyponatremia/SIADH * Secondary to SIADH + fluid overload * Continue Lasix as tolerated and allowed by kidney function * monitor sodium levels post thoracentesis Anxiety * Continue ativan PRN use Hypothyroidism * TSH wnl * Continue home Synthroid dose DVT ppx * subq heparin FULL CODE
--- NOTE | 2016-08-26 13:42 | Procedure Note ---
Procedure Note Procedure: Left sided thoracentesis Procedure time out: Side/site verified, patient ID confirmed, sterile procedure used Consent obtained: Written and obtained by Dr. Little Time of procedure: 1314 Performed by: Physician professor of communication Indications: Diagnostic therapeutic Contraindications: None Description: Platelets and INR were checked and were acceptable to proceed with thoracentesis. Consent was obtained by Dr. Little prior to the procedure. Risks were again reviewed with the patient agreed to proceed with the procedure. A bedside ultra sound was used to find an appropriate site for insertion of the pleural catheter The site was prepped with chlorhexidine and a sterile fenestrated drape was applied. Using sterile technique, a wheal was made using 1% lidocaine. When the patient was adequately anesthetized, a needle was advanced using negative pressure until a pleural flash was obtained. Lidocaine was then administered in the pleural space. A small incision was then made and using negative pressure, a needle with an overlying catheter was advanced until a a pleural flash was obtained. The catheter was then advanced over the needle to the hub without difficulty. A 60 mL syringe was used to collect pleural fluid to be sent to the lab for analysis. Approximately 600 mL of transudative appearing fluid was collected. Blood pressure, pulse, and pulse oximetry was monitored throughout the entire procedure and remained stable. There was no blood loss. The patient tolerated the procedure well. A post procedure CXR was obtained and showed no evidence of pneumothorax. Pleural fluid was sent to the laboratory for analysis.
--- NOTE | 2016-08-26 13:50 | DIAGNOSTIC IMAGING REPORT ---
CHEST ONE VIEW PORTABLE CLINICAL HISTORY: Status post left thoracentesis. COMPARISON STUDY: Chest radiograph performed earlier today. FINDINGS: The left pleural effusion has significantly decreased in size since prior exam. Relative lucency within the left lower lung likely reflects aerated lung. No definite left pneumothorax is present. A small right pleural effusion and bibasilar opacities persist. There is pulmonary vascular congestion. Enlargement of the cardiac silhouette is unchanged. IMPRESSION: Significant decrease in size of the left pleural effusion following thoracentesis. Relative lucency of the left lower lung likely reflects aerated lung. A pneumothorax is considered less likely although this can be assessed on subsequent exams. Electronically signed by: Hayder Barber M.D. 08/26/2016 1:48 PM Dictated Date/Time: 08/26/2016 1:46 PM
[2016-08-26 14:29] LABS: PLEURAL FLUID TOTAL PROTEIN 4.2 g/dl
--- NOTE | 2016-08-26 15:11 | Nephrology Progress Note ---
Nephrology Progress Note Date of Service: Aug 26, 2016. Subjective 85 yo female with roger on ckd and hyponatremia in setting of stable pericaridal effusion and pleural effusions with sob. 600mL drained from thoracentesis and patient tolerated it well. with some residual pain at procedure site. SOB stable and plan is to lower her oxygen with posibility of sending patient home with oxygen per primary care. shoulder and back pain is at baseline. continues to have significant anxiety and admits that she is feeling better but is concerned that she may have a recurrence of symptoms/condition. appetite good per patient. no edema, chest pain, or nausea. Objective Date Time Temp Pulse Resp B/P Pulse Ox O2 Delivery O2 Flow Rate FiO2 08/26/16 13:45 89 20 128/56 100 4.0 08/26/16 13:40 77 20 157/63 96 4.0 08/26/16 13:33 80 20 155/57 96 4.0 08/26/16 13:30 79 20 189/63 100 4.0 08/26/16 12:00 Nasal Cannula 08/26/16 11:40 36.6 69 20 149/54 98 Nasal Cannula 2.0 08/26/16 08:04 36.8 85 22 165/59 97 Room Air 08/26/16 08:00 Nasal Cannula 08/26/16 04:00 Nasal Cannula 3.0 08/26/16 03:39 36.4 60 18 150/71 99 Nasal Cannula 2.0 08/26/16 00:00 Nasal Cannula 3.0 08/25/16 23:48 36.5 63 21 145/63 97 Nasal Cannula 3.0 08/25/16 20:00 Nasal Cannula 4.0 08/25/16 19:47 36.9 79 20 161/67 97 Nasal Cannula 2.0 08/25/16 16:00 36.9 68 18 124/62 98 Nasal Cannula 4.0 08/25/16 16:00 Nasal Cannula 4.0 Physical Exam: General-aaox3, anxious but cooperative Eyes-no scleral icterus ENT-mmm Neck-supple Lungs-decreased at left base, on O2 Heart-regular Abdomen-bs+ s/nt/nd Extremities-no c/c/e Neuro-nonfocal Current Inpatient Medications Medications (Trade) Dose Ordered Sig/Jassi Route Start Time Stop Time Status Last Admin Dose Admin Acetaminophen (Tylenol Tab) 650 mg Q4H PRN PO 08/21/16 17:30 09/20/16 17:29 08/26/16 07:38 650 MG Ondansetron HCl (Zofran Inj) 4 mg Q6H PRN IV 08/21/16 17:30 09/20/16 17:29 08/23/16 17:18 4 MG Levofloxacin (Consult) 1 ea UD PRN N/A 08/21/16 19:49 09/20/16 19:48 Aspirin (Ecotrin Tab) 81 mg DAILY PO 08/22/16 09:00 09/21/16 08:59 08/26/16 07:38 81 MG Atorvastatin Calcium (Lipitor Tab) 10 mg DAILY PO 08/22/16 09:00 09/21/16 08:59 08/26/16 07:38 10 MG Ferrous Sulfate (Feosol Tab) 325 mg BID PO 08/21/16 21:00 09/20/16 20:59 08/26/16 07:39 325 MG Furosemide (Lasix tab) 20 mg Q2D@1800 PO 08/21/16 20:00 09/20/16 19:59 08/25/16 18:00 20 MG Levothyroxine Sodium (Synthroid Tab) 75 mcg DAILYBB PO 08/22/16 06:00 09/21/16 05:59 08/25/16 05:37 75 MCG Lorazepam (Ativan Tab) 1 mg TID PRN PO 08/21/16 18:15 09/20/16 18:14 08/25/16 08:30 1 MG Mirtazapine (Remeron Tab) 7.5 mg HS PO 08/21/16 21:00 09/20/16 20:59 08/25/16 20:16 7.5 MG Nifedipine (Procardia Xl Tab) 30 mg DAILY PO 08/22/16 09:00 09/21/16 08:59 Future Hold 08/22/16 07:42 30 MG Metoprolol Tartrate (Lopressor Iv) 5 mg Q6 PRN IV 08/22/16 09:30 09/21/16 09:29 Metoprolol Tartrate (Lopressor Tab) 12.5 mg BID PO 08/22/16 21:00 09/21/16 20:59 08/26/16 07:38 12.5 MG Albuterol Sulfate (Ventolin 0.083% 2.5MG/3ML Neb) 2.5 mg Q6R PRN INH 08/23/16 04:00 09/22/16 03:59 08/23/16 22:42 2.5 MG Heparin Sodium (Porcine) (Heparin Sq 5000 Unit/0.5ml) 5,000 unit Q12 SQ 08/23/16 21:00 09/22/16 20:59 08/26/16 07:41 5,000 UNIT Levofloxacin (Levaquin Tab) 500 mg Q2D@1400 PO 08/23/16 14:00 08/31/16 13:59 08/25/16 14:13 500 MG Polyethylene (Miralax Powder Packet) 17 gm DAILY PRN PO 08/23/16 12:00 09/22/16 11:59 Docusate Sodium (coLACE CAP) 100 mg BID PO 08/23/16 12:00 09/22/16 11:59 08/26/16 07:39 100 MG Prednisone (PredniSONE TAB) 20 mg DAILY PO 08/26/16 09:00 09/25/16 08:59 08/26/16 07:38 20 MG Pantoprazole Sodium (Protonix Tab) 40 mg BID PO 08/25/16 21:00 09/24/16 20:59 08/26/16 07:38 40 MG Al Hydrox/Mg Hydrox/Simethicone (Maalox Max Susp) 30 ml Q6H PRN PO 08/25/16 19:30 09/24/16 19:29 Ranitidine HCl (zANTac TAB) 150 mg QAM PO 08/26/16 09:00 09/25/16 08:59 08/26/16 07:38 150 MG Last 24 Hours Test 08/26/16 05:20 08/26/16 13:20 White Blood Count 2.83 K/uL Red Blood Count 2.65 M/uL Hemoglobin 8.6 g/dL Hematocrit 26.4 % Mean Corpuscular Volume 99.6 fL Mean Corpuscular Hemoglobin 32.5 pg Mean Corpuscular Hemoglobin Concent 32.6 g/dl RDW Standard Deviation 50.6 fL RDW Coefficient of Variation 14.0 % Platelet Count 258 K/uL Mean Platelet Volume 9.5 fL Sodium Level 131 mmol/L Potassium Level 4.7 mmol/L Chloride Level 94 mmol/L Carbon Dioxide Level 28 mmol/L Anion Gap 9.0 mmol/L Blood Urea Nitrogen 41 mg/dl Creatinine 2.00 mg/dl Est Creatinine Clear Calc Drug Dose 15.9 ml/min Estimated GFR () 25.7 Estimated GFR (Non- 22.2 BUN/Creatinine Ratio 20.5 Random Glucose 114 mg/dl Calcium Level 8.5 mg/dl Magnesium Level 2.7 mg/dl Iron Level 21 mcg/dl Total Iron Binding Capacity 161 mcg/dl Transferrin 126 mg/dl Transferrin % Saturation 12 % Ferritin 1732.2 ng/ml Pleural Fluid pH Pleural Fluid Total Protein 4.2 g/dl Pleural Fluid LDH 105 IU Pleural Fluid Glucose 157 mg/dl Pleural Fluid Amylase 22 U/L Date/Time Source Procedure Growth Status 08/26/16 13:20 Pleural Fluid (Thoracentesis) Left Acid Fast Stain Pending Received 08/26/16 13:20 Pleural Fluid (Thoracentesis) Left Mycobacterial Culture Pending Received 08/26/16 13:20 Pleural Fluid (Thoracentesis) Left Gram Stain Pending Received 08/26/16 13:20 Pleural Fluid (Thoracentesis) Left Bacterial Culture Pending Received Other Studies: 08/24/16 08/25/16 08/26/16 08:00 08:00 08:00 Intake Total 788 ml 340 ml 568 ml Output Total 770 ml 1150 ml 2250 ml Balance 18 ml -810 ml -1682 ml Assessment & Plan 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 sodium levels continue to be stable/improve and is 131. ROGER on ckd-likely atn. Creatinine continues to improve toward baseline and is 2.0 now. no need for dialysis. volume status acceptable. continue to monitor. Anemia of renal Failure-hgb improved to 8.6 today. on procrit as an outpt. Per patient she is due as outpt for labs again for anemia clinic on the . would recommend continued procrit therapy during hospital stay with transfusion prn if patient agreeable. last injection was in hospital over the weekend. hyperkalemia-potassium continues to be stable at 4.7-resolved This patient was seen and treated with direct collaboration with Dr. Hwang. Thank you for the opportunity to participate in this patient's care. Appreciate the Consult. ATTENDING NOTE: I performed a history and physical examination of the patient, including specifically on history- pt has underlying anxiety and is nervous during hospitilization, on physical exam-decreased breath sounds at left base, and my impression and plan are hyponatremia-stable. ckd stable. hyperkalemia stabilized. no changes at this time. pt clinically improving. I have discussed the patient's management with Lisa Woodard PA-C, Please refer to above note for the documented findings and plan of care. Karen Oncwojciech DO
--- NOTE | 2016-08-26 15:55 | DIAGNOSTIC IMAGING REPORT ---
CHEST ONE VIEW PORTABLE CLINICAL HISTORY: Pericardial effusion. COMPARISON STUDY: 08/26/2016 FINDINGS: The heart remains enlarged. There are bilateral pleural effusions. There are associated bibasal airspace opacities. No pneumothorax is visualized.[ IMPRESSION: 1. Persistent enlargement of the cardiac silhouette 2. Persistent bilateral pleural effusions with bibasal airspace opacities 3. No evidence of pneumothorax Electronically signed by: Mauro Sanchez M.D. 08/26/2016 3:53 PM Dictated Date/Time: 08/26/2016 3:52 PM
[2016-08-26 17:33] LABS: PLEURAL FLUID APPEARANCE HAZY; PLEURAL FLUID COLOR YELLOW; PLEURAL FLUID SOURCE PLERUAL EFFUSION; PLEURAL FLUID WBC (A) 734 /uL
[2016-08-26 17:36] LABS: PLEURAL FLUID POLYNUC 12.1 %
[2016-08-26 17:39] LABS: PLEURAL FLUID MONONUC RELAT 87.9 %
[2016-08-26] MEDS: MIRTAZAPINE TAB 15 MG TAB PO SCH (19:27)
[2016-08-26] MEDS: LORAZEPAM 1 MG TAB PO PRN (19:35)
[2016-08-27] MEDS: ACETAMINOPHEN 325 MG TAB PO PRN ×3 (00:06→20:28)
[2016-08-27 03:42] VITALS: BP 148/68; PULSE 67; TEMP 36.5; O2SAT 100
[2016-08-27] MEDS: LEVOTHYROXINE 75 MCG TAB PO SCH (06:10)
[2016-08-27 06:37] LABS: MEAN CELL VOLUME 97.5 fL (80-100); MEAN CORPUSCULAR HEMOGLOBIN 32.2 pg (25-34); MEAN PLATELET VOLUME 9.2 fL (7.4-10.4); PLATELET COUNT 272 K/uL (130-400); RED BLOOD COUNT 2.36 M/uL (4.2-5.4); WHITE BLOOD COUNT 6.98 K/uL (4.8-10.8)
[2016-08-27 07:30] LABS: BUN/CREATININE RATIO 23.6 (10-20); CALCIUM 8.4 mg/dl (8.5-10.1); CREATININE 2.2 mg/dl (0.60-1.20); MAGNESIUM 2.8 mg/dl (1.8-2.4); POTASSIUM 4.3 mmol/L (3.5-5.1)
[2016-08-27] MEDS: ATORVASTATIN 10 MG TAB PO SCH (07:50)
[2016-08-27] MEDS: FERROUS SULFATE 325 MG TAB PO SCH ×2 (07:50→20:29)
[2016-08-27] MEDS: DOCUSATE SODIUM 100 MG CAP PO SCH ×2 (07:50→20:30)
[2016-08-27] MEDS: PANTOprazole SOD 40 MG TAB PO SCH ×2 (07:50→20:28)
[2016-08-27] MEDS: METOPROLOL TARTRATE 25 MG TAB PO SCH ×2 (07:50→20:30)
[2016-08-27] MEDS: ASPIRIN 81 MG ECTAB PO SCH (07:50)
[2016-08-27] MEDS: RANITIDINE HCL 150 MG TAB PO SCH (07:51)
[2016-08-27] MEDS: HEPARIN SOD 5000 UNIT/0.5 ML CARP SQ SCH ×2 (07:52→20:33)
--- NOTE | 2016-08-27 09:34 | Nephrology Progress Note ---
Nephrology Progress Note Date of Service: Aug 27, 2016. Subjective 85 yo female with roger on ckd and hyponatremia in setting of stable pericaridal effusion and pleural effusions with sob. patient is seated upright in chair this morning. states that she ate all of her breakfast and had chronic back pain which inhibited sleep last night but was greatly improved with tylenol. continues to be anxious. admits to being thirsty and report about 6-8 tall glasses of water that she drank at home daily. sob improved on oxygen. shoulder and back pain is at baseline. no edema, chest pain, or nausea. Objective Date Time Temp Pulse Resp B/P Pulse Ox O2 Delivery O2 Flow Rate FiO2 08/27/16 08:00 Nasal Cannula 2.0 08/27/16 04:00 Nasal Cannula 2.0 08/27/16 03:42 36.5 67 18 148/68 100 Nasal Cannula 3.5 08/27/16 00:07 Nasal Cannula 2.0 08/26/16 23:55 36.5 71 21 171/67 99 Nasal Cannula 3.5 08/26/16 20:00 Nasal Cannula 2.0 08/26/16 19:02 36.7 75 20 144/73 99 Nasal Cannula 4.0 08/26/16 15:32 Nasal Cannula 08/26/16 15:07 36.6 63 18 138/66 100 Nasal Cannula 4.0 08/26/16 13:45 89 20 128/56 100 4.0 08/26/16 13:40 77 20 157/63 96 4.0 08/26/16 13:33 80 20 155/57 96 4.0 08/26/16 13:30 79 20 189/63 100 4.0 08/26/16 12:00 Nasal Cannula 08/26/16 11:40 36.6 69 20 149/54 98 Nasal Cannula 2.0 Physical Exam: General-aaox3, anxious but cooperative Eyes-no scleral icterus ENT-mmm Neck-supple Lungs-on O2 refused posterior exam but anteriorly apically cta. Heart-regular Abdomen-bs+ s/nt/nd Extremities-no c/c/e Neuro-nonfocal Current Inpatient Medications Medications (Trade) Dose Ordered Sig/Jassi Route Start Time Stop Time Status Last Admin Dose Admin Acetaminophen (Tylenol Tab) 650 mg Q4H PRN PO 08/21/16 17:30 09/20/16 17:29 1/18/17 07:53 650 MG Ondansetron HCl (Zofran Inj) 4 mg Q6H PRN IV 08/21/16 17:30 09/20/16 17:29 08/23/16 17:18 4 MG Levofloxacin (Consult) 1 ea UD PRN N/A 08/21/16 19:49 09/20/16 19:48 Aspirin (Ecotrin Tab) 81 mg DAILY PO 08/22/16 09:00 09/21/16 08:59 08/27/16 07:50 81 MG Atorvastatin Calcium (Lipitor Tab) 10 mg DAILY PO 08/22/16 09:00 09/21/16 08:59 08/27/16 07:50 10 MG Ferrous Sulfate (Feosol Tab) 325 mg BID PO 08/21/16 21:00 09/20/16 20:59 08/27/16 07:50 325 MG Furosemide (Lasix tab) 20 mg Q2D@1800 PO 08/21/16 20:00 09/20/16 19:59 08/25/16 18:00 20 MG Levothyroxine Sodium (Synthroid Tab) 75 mcg DAILYBB PO 08/22/16 06:00 09/21/16 05:59 08/27/16 06:10 75 MCG Lorazepam (Ativan Tab) 1 mg TID PRN PO 08/21/16 18:15 09/20/16 18:14 08/26/16 19:35 1 MG Mirtazapine (Remeron Tab) 7.5 mg HS PO 08/21/16 21:00 09/20/16 20:59 08/26/16 19:27 7.5 MG Nifedipine (Procardia Xl Tab) 30 mg DAILY PO 08/22/16 09:00 09/21/16 08:59 Future Hold 08/22/16 07:42 30 MG Metoprolol Tartrate (Lopressor Iv) 5 mg Q6 PRN IV 08/22/16 09:30 09/21/16 09:29 Metoprolol Tartrate (Lopressor Tab) 12.5 mg BID PO 08/22/16 21:00 09/21/16 20:59 08/27/16 07:50 12.5 MG Albuterol Sulfate (Ventolin 0.083% 2.5MG/3ML Neb) 2.5 mg Q6R PRN INH 08/23/16 04:00 09/22/16 03:59 08/23/16 22:42 2.5 MG Heparin Sodium (Porcine) (Heparin Sq 5000 Unit/0.5ml) 5,000 unit Q12 SQ 08/23/16 21:00 09/22/16 20:59 08/27/16 07:52 5,000 UNIT Levofloxacin (Levaquin Tab) 500 mg Q2D@1400 PO 08/23/16 14:00 08/31/16 13:59 08/25/16 14:13 500 MG Polyethylene (Miralax Powder Packet) 17 gm DAILY PRN PO 08/23/16 12:00 09/22/16 11:59 Docusate Sodium (coLACE CAP) 100 mg BID PO 08/23/16 12:00 09/22/16 11:59 08/27/16 07:50 100 MG Prednisone (PredniSONE TAB) 20 mg DAILY PO 08/26/16 09:00 09/25/16 08:59 08/27/16 07:51 20 MG Pantoprazole Sodium (Protonix Tab) 40 mg BID PO 08/25/16 21:00 09/24/16 20:59 08/27/16 07:50 40 MG Al Hydrox/Mg Hydrox/Simethicone (Maalox Max Susp) 30 ml Q6H PRN PO 08/25/16 19:30 09/24/16 19:29 Ranitidine HCl (zANTac TAB) 150 mg QAM PO 08/26/16 09:00 09/25/16 08:59 08/27/16 07:51 150 MG Last 24 Hours Test 08/26/16 13:20 08/27/16 05:55 Pleural Fluid Source PLERUAL EFFUSION Pleural Fluid Color YELLOW Pleural Fluid Appearance HAZY Pleural Fluid WBC 734 /uL Pleural Fluid RBC < 3000 /uL Pleural Fluid pH Pleural Fluid Polynuclear WBCs % 12.1 % Pleural Fluid Mononuclear WBCs % 87.9 % Pleural Fluid Total Protein 4.2 g/dl Pleural Fluid LDH 105 IU Pleural Fluid Glucose 157 mg/dl Pleural Fluid Amylase 22 U/L White Blood Count 6.98 K/uL Red Blood Count 2.36 M/uL Hemoglobin 7.6 g/dL Hematocrit 23.0 % Mean Corpuscular Volume 97.5 fL Mean Corpuscular Hemoglobin 32.2 pg Mean Corpuscular Hemoglobin Concent 33.0 g/dl RDW Standard Deviation 50.7 fL RDW Coefficient of Variation 14.3 % Platelet Count 272 K/uL Mean Platelet Volume 9.2 fL Sodium Level 133 mmol/L Potassium Level 4.3 mmol/L Chloride Level 95 mmol/L Carbon Dioxide Level 31 mmol/L Anion Gap 7.0 mmol/L Blood Urea Nitrogen 52 mg/dl Creatinine 2.20 mg/dl Est Creatinine Clear Calc Drug Dose 14.3 ml/min Estimated GFR () 22.9 Estimated GFR (Non- 19.8 BUN/Creatinine Ratio 23.6 Random Glucose 85 mg/dl Calcium Level 8.4 mg/dl Magnesium Level 2.8 mg/dl Chemistry Specimen Hemolysis Date/Time Source Procedure Growth Status 08/26/16 13:20 Pleural Fluid (Thoracentesis) Left Acid Fast Stain Pending Received 08/26/16 13:20 Pleural Fluid (Thoracentesis) Left Mycobacterial Culture Pending Received 08/26/16 13:20 Pleural Fluid (Thoracentesis) Left Gram Stain - Final Resulted 08/26/16 13:20 Pleural Fluid (Thoracentesis) Left Bacterial Culture Pending Resulted Assessment & Plan 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 sodium levels continue to be stable/improve and is 133. ROGER on ckd-likely atn. Creatinine continues to be relatively stable and at baseline at 2.2. no need for dialysis. volume status acceptable. continue to monitor. Anemia of renal Failure-hgb improved to 7.6 today. Continue procrit therapy during hospital stay with transfusion prn if patient agreeable. [id number]-[id number] continues to be stable at 4.3. This patient was seen and treated with direct collaboration with Dr. Hwang. Thank you for the opportunity to participate in this patient's care. Appreciate the Consult. ATTENDING NOTE: I performed a history and physical examination of the patient, including specifically on history- pt continues to exhibit baseline anxiety, on physical exam-aaox3, and my impression and plan are hyponatremia-electrolytes are stable. CKD-creatinine remains stable. Anemia of renal failure-continue intermittent doses of procrit. I have discussed the patient's management with Lisa Woodard PA-C, Please refer to above note for the documented findings and plan of care. Karen Hwang DO
--- NOTE | 2016-08-27 10:37 | Progress Note ---
Subjective Date of Service: Aug 27, 2016. Subjective Pt evaluation today including: conversation w/ patient, physical exam, lab review, review of studies, review of inpatient medication list Saw/examined the patient in room 231 +anxious this morning, states she can't get her nerves under control +pain at the site of thoracentesis had thoracentesis yesterday with removal of 600cc of fluid she feels good in terms of breathing, denies chest pain Problem List Medical Problems: (1) Abdominal pain Status: Acute (2) Acute on chronic renal insufficiency Status: Acute (3) Bilateral pleural effusion Status: Acute (4) Constipation Status: Acute (5) Dehydration Status: Acute (6) Diarrhea Status: Acute (7) Elevated serum creatinine Status: Acute (8) Fall Status: Acute (9) Generalized weakness Status: Acute (10) Heart palpitations Status: Acute (11) Hypomagnesemia Status: Acute (12) New onset atrial flutter Status: Acute (13) Pericardial effusion Status: Acute (14) Pneumonia involving left lung Status: Acute (15) Precordial chest pain Status: Acute (16) PVC's (premature ventricular contractions) Status: Acute (17) Ribs, multiple fractures Status: Acute (18) Weakness Status: Acute (19) Weakness Status: Acute Review of Systems Constitutional: No chills, No fever Respiratory: No cough, No dyspnea at rest, No dyspnea on exertion, No shortness of breath, No sputum, No wheezing Abdomen: No diarrhea, No nausea, No pain, No vomiting Psychiatric: + anxiety Medications Current Inpatient Medications Medications (Trade) Dose Ordered Sig/Jassi Route Start Time Stop Time Status Last Admin Dose Admin Acetaminophen (Tylenol Tab) 650 mg Q4H PRN PO 08/21/16 17:30 09/20/16 17:29 08/27/16 07:53 650 MG Ondansetron HCl (Zofran Inj) 4 mg Q6H PRN IV 08/21/16 17:30 09/20/16 17:29 08/23/16 17:18 4 MG Levofloxacin (Consult) 1 ea UD PRN N/A 08/21/16 19:49 08/27/16 23:59 Aspirin (Ecotrin Tab) 81 mg DAILY PO 08/22/16 09:00 09/21/16 08:59 08/27/16 07:50 81 MG Atorvastatin Calcium (Lipitor Tab) 10 mg DAILY PO 08/22/16 09:00 09/21/16 08:59 08/27/16 07:50 10 MG Ferrous Sulfate (Feosol Tab) 325 mg BID PO 08/21/16 21:00 09/20/16 20:59 08/27/16 07:50 325 MG Furosemide (Lasix tab) 20 mg Q2D@1800 PO 08/21/16 20:00 09/20/16 19:59 08/25/16 18:00 20 MG Levothyroxine Sodium (Synthroid Tab) 75 mcg DAILYBB PO 08/22/16 06:00 09/21/16 05:59 08/27/16 06:10 75 MCG Lorazepam (Ativan Tab) 1 mg TID PRN PO 08/21/16 18:15 09/20/16 18:14 08/26/16 19:35 1 MG Mirtazapine (Remeron Tab) 7.5 mg HS PO 08/21/16 21:00 09/20/16 20:59 08/26/16 19:27 7.5 MG Nifedipine (Procardia Xl Tab) 30 mg DAILY PO 08/22/16 09:00 09/21/16 08:59 Future Hold 08/22/16 07:42 30 MG Metoprolol Tartrate (Lopressor Iv) 5 mg Q6 PRN IV 08/22/16 09:30 09/21/16 09:29 Metoprolol Tartrate (Lopressor Tab) 12.5 mg BID PO 08/22/16 21:00 09/21/16 20:59 08/27/16 07:50 12.5 MG Albuterol Sulfate (Ventolin 0.083% 2.5MG/3ML Neb) 2.5 mg Q6R PRN INH 08/23/16 04:00 09/22/16 03:59 08/23/16 22:42 2.5 MG Heparin Sodium (Porcine) (Heparin Sq 5000 Unit/0.5ml) 5,000 unit Q12 SQ 08/23/16 21:00 09/22/16 20:59 08/27/16 07:52 5,000 UNIT Levofloxacin (Levaquin Tab) 500 mg Q2D@1400 PO 08/23/16 14:00 08/27/16 23:59 08/25/16 14:13 500 MG Polyethylene (Miralax Powder Packet) 17 gm DAILY PRN PO 08/23/16 12:00 09/22/16 11:59 Docusate Sodium (coLACE CAP) 100 mg BID PO 08/23/16 12:00 09/22/16 11:59 08/27/16 07:50 100 MG Prednisone (PredniSONE TAB) 20 mg DAILY PO 08/26/16 09:00 09/25/16 08:59 08/27/16 07:51 20 MG Pantoprazole Sodium (Protonix Tab) 40 mg BID PO 08/25/16 21:00 09/24/16 20:59 08/27/16 07:50 40 MG Al Hydrox/Mg Hydrox/Simethicone (Maalox Max Susp) 30 ml Q6H PRN PO 08/25/16 19:30 09/24/16 19:29 Ranitidine HCl (zANTac TAB) 150 mg QAM PO 08/26/16 09:00 09/25/16 08:59 08/27/16 07:51 150 MG Objective Vital Signs Date Time Temp Pulse Resp B/P Pulse Ox O2 Delivery O2 Flow Rate FiO2 08/27/16 08:00 Nasal Cannula 2.0 08/27/16 04:00 Nasal Cannula 2.0 08/27/16 03:42 36.5 67 18 148/68 100 Nasal Cannula 3.5 08/27/16 00:07 Nasal Cannula 2.0 08/26/16 23:55 36.5 71 21 171/67 99 Nasal Cannula 3.5 08/26/16 20:00 Nasal Cannula 2.0 08/26/16 19:02 36.7 75 20 144/73 99 Nasal Cannula 4.0 08/26/16 15:32 Nasal Cannula 08/26/16 15:07 36.6 63 18 138/66 100 Nasal Cannula 4.0 08/26/16 13:45 89 20 128/56 100 4.0 08/26/16 13:40 77 20 157/63 96 4.0 08/26/16 13:33 80 20 155/57 96 4.0 08/26/16 13:30 79 20 189/63 100 4.0 08/26/16 12:00 Nasal Cannula 08/26/16 11:40 36.6 69 20 149/54 98 Nasal Cannula 2.0 Physical Exam General Appearance: no apparent distress Respiratory/Chest: lungs clear, normal breath sounds, no respiratory distress, no accessory muscle use, + pertinent finding (chest wall tenderness at left lateral wall) Cardiovascular: regular rate, rhythm, no edema, no murmur Abdomen: normal bowel sounds, non tender, soft Extremities: normal inspection, no pedal edema Neurologic/Psychiatric: no motor/sensory deficits, alert, + pertinent finding ( +anxious) Laboratory Results Last 24 Hours Test 08/26/16 13:20 08/27/16 05:55 Pleural Fluid Source PLERUAL EFFUSION Pleural Fluid Color YELLOW Pleural Fluid Appearance HAZY Pleural Fluid WBC 734 /uL Pleural Fluid RBC < 3000 /uL Pleural Fluid pH Pleural Fluid Polynuclear WBCs % 12.1 % Pleural Fluid Mononuclear WBCs % 87.9 % Pleural Fluid Total Protein 4.2 g/dl Pleural Fluid LDH 105 IU Pleural Fluid Glucose 157 mg/dl Pleural Fluid Amylase 22 U/L White Blood Count 6.98 K/uL Red Blood Count 2.36 M/uL Hemoglobin 7.6 g/dL Hematocrit 23.0 % Mean Corpuscular Volume 97.5 fL Mean Corpuscular Hemoglobin 32.2 pg Mean Corpuscular Hemoglobin Concent 33.0 g/dl RDW Standard Deviation 50.7 fL RDW Coefficient of Variation 14.3 % Platelet Count 272 K/uL Mean Platelet Volume 9.2 fL Sodium Level 133 mmol/L Potassium Level 4.3 mmol/L Chloride Level 95 mmol/L Carbon Dioxide Level 31 mmol/L Anion Gap 7.0 mmol/L Blood Urea Nitrogen 52 mg/dl Creatinine 2.20 mg/dl Est Creatinine Clear Calc Drug Dose 14.3 ml/min Estimated GFR () 22.9 Estimated GFR (Non- 19.8 BUN/Creatinine Ratio 23.6 Random Glucose 85 mg/dl Calcium Level 8.4 mg/dl Magnesium Level 2.8 mg/dl Chemistry Specimen Hemolysis Assessment and Plan This is an 85 year old female with PMH of CKD stage IV, anemia of chronic disease, atrial flutter, HTN, hypothyroidism, anxiety, SIADH presented to the ER on August 21 with body aches and chills - found to have pericardial effusion - later found to have pneumonia and bilateral pleural effusions. She has been requiring oxygen to keep oxygen saturation > 88%; her kidney function was worsened on admission, though now improving. Acute Respiratory Failure Secondary to Pneumonia and Bilateral Pleural Effusions 08/27 * s/p thoracentesis on 08/26 * denies shortness of breath * still requiring O2 to keep oxygen saturation > 90% * continue Levaquin * ambulate in hallways * d/c home in 1-2 days 08/26 * acute respiratory failure - requiring continuous oxygen therapy * this is likely secondary to pneumonia and pleural effusions * CHEST ONE VIEW PORTABLE IMPRESSION: 1. No significant change in the moderate to large left and small right pleural effusions. 2. Persistent pulmonary edema. 3. Stable enlargement of the cardiac silhouette. * Chest U/S done this morning - marked for thoracentesis * Plan for thoracentesis later today - likely parapneumonic pleural effusions * Continue Levaquin for pneumonia * Appreciate pulmonology input Pericardial Effusion 08/27 * continue prednisone use for now * limited echo to be performed prior to discharge 08/26 * Echo done on 08/21 Small to medium sized pericardial effusion * initially conservative management to treat pneumonia as above * started on prednisone taper - currently on prednisone 20mg * repeat limited echo prior to discharge * appreciate cardiology input Acute Kidney Injury superimposed on CKD stage IV, resolved 08/27 * creat improved; appreciate nephro input, will monitor 08/26 * creat initially up to 2.6 * likely related to pneumonia; conservative management * continue Lasix every other day * creat now down to 2.0 - back to baseline * appreciate nephrology input Atrial Flutter, rate controlled * rhythm - irregularly irregular * currently rate controlled; continue b-maliha * continue cardiac medications Anemia of Chronic Disease * Hgb - currently stable * no transfusions necessary * continue Procrit * PPI BID * monitor Hgb Hyponatremia/SIADH * Secondary to SIADH + fluid overload * Continue Lasix as tolerated and allowed by kidney function * monitor sodium levels post thoracentesis Anxiety * Continue ativan PRN use Hypothyroidism * TSH wnl * Continue home Synthroid dose DVT ppx * subq heparin FULL CODE
--- NOTE | 2016-08-27 10:39 | Cardiology Follow-Up ---
Subjective General Date of Service: Aug 27, 2016. Chief Complaint: SOB Pt evaluation today including: conversation w/ patient, physical exam, chart review, lab review, review of studies, review of inpatient medication list History of Present Illness Patient feeling ok this AM. Primary concerns are her "worries". Worried the "fluid is going to come back". She denies acute complaints at this time. No CP or SOB. Cough improving No dizziness or palpitations. Allergies Coded Allergies: Penicillins (Verified Allergy, Intermediate, HIVES, 08/21/16) Iron Sucrose (Unverified Adverse Reaction, Mild, n&v, abd pain, 08/21/16) Social History Smoking Status: Never Smoker Hx Tobacco Use In Past Year?: No Hx Alcohol Use - Type And Amou: No Hx Substance Use - Type And Am: No Problem List Medical Problems: (1) Abdominal pain Status: Acute (2) Acute on chronic renal insufficiency Status: Acute (3) Bilateral pleural effusion Status: Acute (4) Constipation Status: Acute (5) Dehydration Status: Acute (6) Diarrhea Status: Acute (7) Elevated serum creatinine Status: Acute (8) Fall Status: Acute (9) Generalized weakness Status: Acute (10) Heart palpitations Status: Acute (11) Hypomagnesemia Status: Acute (12) New onset atrial flutter Status: Acute (13) Pericardial effusion Status: Acute (14) Pneumonia involving left lung Status: Acute (15) Precordial chest pain Status: Acute (16) PVC's (premature ventricular contractions) Status: Acute (17) Ribs, multiple fractures Status: Acute (18) Weakness Status: Acute (19) Weakness Status: Acute Review of Systems Respiratory: No cough, No dyspnea at rest, No hemoptysis, No shortness of breath, No wheezing Cardiac: No PND, No chest pain, No edema, No orthopnea, No palpitations Physical Exam Vital Signs Last Vital Signs Documentation Date Time Temp Pulse Resp B/P Pulse Ox O2 Delivery O2 Flow Rate FiO2 08/27/16 08:00 Nasal Cannula 2.0 08/27/16 03:42 36.5 67 18 148/68 100 Physical Exam Constitutional: Level of Distress: NAD, acutely ill, chronically ill Psychiatric: Mental Status: anxious Orientation: to time, to place, to person Head: normocephalic Eyes: Pupils: PERRLA Neck: supple Lungs: Auscultation: no wheezing, no rales/crackles, deminished air movement (L>R) Cardiovascular: Heart Auscultation: no murmurs, irregular rate rhythm Abdomen: Bowel Sounds: normal Inspection & Palpation: soft, non-distended Extremities: no edema Assessment and Plan Assessment and Plan IMPRESSION: 1. Pneumonia with possible aspiration. 2. Large left sided pleural effusion, improved post left sided thoracentesis 3. Pericardial effusion, moderate without hemodynamic compromise, likely old - mildly elevated ESR, negative NORTH, lyme and RF 4. Paroxysmal atrial flutter. Not an anticoagulation candidate. 5. Chronic renal insufficiency. 6. Chronic anemia, on Procrit. PLAN: Continue ASA and low dose beta maliha for paroxysmal atrial flutter with controlled ventricular rate. No anticoagulation therapy given age, fall risk, anemia. Started on prednisone taper for pericardial effusion. Not able to give NSAIDS or colchicine due to low GFR. Plan for repeat limited echo prior to discharge. Case to be discussed with Dr. Navarro. Will follow. CARDIOLOGY ATTENDING ADDENDUM: The patient's case was discussed with HOWARD Oh. Agree with Birgit Irizarry PA-C's findings and plans as documented above. Laboratory Results Last 24 Hours Test 08/26/16 13:20 08/27/16 05:55 Pleural Fluid Source PLERUAL EFFUSION Pleural Fluid Color YELLOW Pleural Fluid Appearance HAZY Pleural Fluid WBC 734 /uL Pleural Fluid RBC < 3000 /uL Pleural Fluid pH Pleural Fluid Polynuclear WBCs % 12.1 % Pleural Fluid Mononuclear WBCs % 87.9 % Pleural Fluid Total Protein 4.2 g/dl Pleural Fluid LDH 105 IU Pleural Fluid Glucose 157 mg/dl Pleural Fluid Amylase 22 U/L White Blood Count 6.98 K/uL Red Blood Count 2.36 M/uL Hemoglobin 7.6 g/dL Hematocrit 23.0 % Mean Corpuscular Volume 97.5 fL Mean Corpuscular Hemoglobin 32.2 pg Mean Corpuscular Hemoglobin Concent 33.0 g/dl RDW Standard Deviation 50.7 fL RDW Coefficient of Variation 14.3 % Platelet Count 272 K/uL Mean Platelet Volume 9.2 fL Sodium Level 133 mmol/L Potassium Level 4.3 mmol/L Chloride Level 95 mmol/L Carbon Dioxide Level 31 mmol/L Anion Gap 7.0 mmol/L Blood Urea Nitrogen 52 mg/dl Creatinine 2.20 mg/dl Est Creatinine Clear Calc Drug Dose 14.3 ml/min Estimated GFR () 22.9 Estimated GFR (Non- 19.8 BUN/Creatinine Ratio 23.6 Random Glucose 85 mg/dl Calcium Level 8.4 mg/dl Magnesium Level 2.8 mg/dl Chemistry Specimen Hemolysis
[2016-08-27 11:41] VITALS: BP 127/46; PULSE 63; TEMP 36.8; O2SAT 100
[2016-08-27] MEDS: LEVOFLOXACIN 500 MG TAB PO SCH (13:25)
[2016-08-27 15:17] VITALS: BP 146/69; PULSE 72; TEMP 36.8; O2SAT 99
[2016-08-27] MEDS: LORAZEPAM 1 MG TAB PO PRN (16:16)
[2016-08-27] MEDS: FUROSEMIDE 20 MG TAB PO SCH (17:09)
[2016-08-27 18:47] VITALS: BP 153/54; PULSE 63; TEMP 36.9; O2SAT 99
[2016-08-27] MEDS: MIRTAZAPINE TAB 15 MG TAB PO SCH (20:29)
[2016-08-28] VITALS (7 sets, daily range): BP systolic 110–170; BP diastolic 61–88; PULSE 72–92; TEMP 36.3–37.2; O2SAT 93–100
[2016-08-28] MEDS: LEVOTHYROXINE 75 MCG TAB PO SCH (05:57)
[2016-08-28 06:11] LABS: HEMATOCRIT 25.1 % (37-47); MEAN CELL VOLUME 98.4 fL (80-100); MEAN CORPUSCULAR HEMOGLOBIN 32.5 pg (25-34); MEAN CORPUSCULAR HGB CONC 33.1 g/dl (32-36); MEAN PLATELET VOLUME 8.9 fL (7.4-10.4); PLATELET COUNT 274 K/uL (130-400); RED BLOOD COUNT 2.55 M/uL (4.2-5.4); WHITE BLOOD COUNT 7.34 K/uL (4.8-10.8)
[2016-08-28] MEDS: ACETAMINOPHEN 325 MG TAB PO PRN (06:18)
[2016-08-28 06:41] LABS: BUN/CREATININE RATIO 26.2 (10-20); CALCIUM 8.6 mg/dl (8.5-10.1); CREATININE 1.9 mg/dl (0.60-1.20); MAGNESIUM 2.5 mg/dl (1.8-2.4); POTASSIUM 4.5 mmol/L (3.5-5.1)
[2016-08-28] MEDS: LORAZEPAM 1 MG TAB PO PRN (07:30)
[2016-08-28] MEDS: PANTOprazole SOD 40 MG TAB PO SCH ×2 (07:30→19:37)
[2016-08-28] MEDS: FERROUS SULFATE 325 MG TAB PO SCH ×2 (07:30→19:38)
[2016-08-28] MEDS: DOCUSATE SODIUM 100 MG CAP PO SCH ×2 (07:31→19:36)
[2016-08-28] MEDS: METOPROLOL TARTRATE 25 MG TAB PO SCH ×2 (07:31→19:37)
[2016-08-28] MEDS: ATORVASTATIN 10 MG TAB PO SCH (07:31)
[2016-08-28] MEDS: ASPIRIN 81 MG ECTAB PO SCH (07:31)
[2016-08-28] MEDS: RANITIDINE HCL 150 MG TAB PO SCH (07:31)
[2016-08-28] MEDS: HEPARIN SOD 5000 UNIT/0.5 ML CARP SQ SCH ×2 (07:32→19:39)
[2016-08-28] MEDS ORDERED: LORAZEPAM 0.5 MG TAB ONE (10:26)
[2016-08-28] MEDS ORDERED: NURSING VERBAL MED ORDER ONE (10:30)
--- NOTE | 2016-08-28 12:18 | ECHOCARDIOGRAM REPORT ---
*NOTICE TO RECEIVING CONSTITUTION PARTY AGENCY This information is strictly Confidential and protected under [place] law. [place] law prohibits you from making any further disclosure of this information unless further disclosure is expressly permitted by the written consent of the person to whom it pertains or is authorized by law. A general authorization for the release of medical or other information is not sufficient for this purpose. Hospital accepts no responsibility if the information is made available to any other person, INCLUDING THE PATIENT. Interpretation Summary * Name: APOLONIA ROMERO Study Date: 08/28/2016 07:41 AM BP: 170/66 mmHg * Patient Location: C.2T\S\S231\S\1 HR: 66 * : 1930 (M/d/yyyy) Gender: Female Height: 59 in * Age: 85 yrs Ethnicity: [place] Weight: 124 lb * Ordering Physician: Josué Navarro * Referring Physician: Self, Referred * Performed By: Shira Gan, [facility] * * Reason For Study: F/U PERICARDIAL EFFUSION * BSA: 1.5 m2 * -- Conclusions -- * There is a small to moderate circumferential pericardial effusion. * The most significant amount of fluid is adjacent to the inferolateral and lateral left ventricular marie. * There are no echocardiographic indications of cardiac tamponade. * There is a small to moderate size left pleural effusion. * Small right pleural effusion. * Compared to the prior study dated 08/21/16, there has been an interval improvement in the size of the pericardial effusion and left pleural effusion. Procedure Details * Limited views were obtained. Left Ventricle * There is mild concentric left ventricular hypertrophy. * Left ventricular systolic function is normal. * Ejection Fraction = 55-60%. * The left ventricular wall motion is normal. Right Ventricle * The right ventricle is normal in size and function. Atria * The left atrium is severely dilated. * Right atrial size is normal. Pericardium/Pleural * There is a small to moderate circumferential pericardial effusion. The most significant amout of fluid is adjacent to the inferolateral and lateral left ventricular marie. * There are no echocardiographic indications of cardiac tamponade. * There is a small to moderate size left pleural effusion. * Small right pleural effusion. Great Vessels * The inferior vena cava diameter is at the upper limit of normal and collapses less than 50% with inspiration consistent with an intermedicate right atrial pressure of 8 mm Hg. MMode 2D Measurements and Calculations IVSd 1.1 cm IVSs 1.7 cm LVIDd 4.2 cm LVIDs 2.6 cm LVPWd 1.1 cm LVPWs 1.4 cm IVS/LVPW 1.0 FS 39.6 % EDV(Teich) 79.6 ml ESV(Teich) 23.5 ml EF(Teich) 70.5 % EDV(cubed) 75.4 ml ESV(cubed) 16.6 ml EF(cubed) 77.9 % % IVS thick 60.3 % % LVPW thick 29.0 % LV mass(C)d 152.7 grams LV mass(C)dI 101.5 grams/m\S\2 LV mass(C)s 137.5 grams LV mass(C)sI 91.4 grams/m\S\2 SV(Teich) 56.1 ml SI(Teich) 37.3 ml/m\S\2 SV(cubed) 58.7 ml SI(cubed) 39.0 ml/m\S\2 LVOT diam 1.6 cm LVOT area 2.0 cm\S\2
--- NOTE | 2016-08-28 14:26 | Cardiology Follow-Up ---
Subjective General Date of Service: Aug 28, 2016. Chief Complaint: SOB Pt evaluation today including: conversation w/ patient, physical exam History of Present Illness The patient is a 85 year old female seen in follow up. Pt without complaints. Allergies Coded Allergies: Penicillins (Verified Allergy, Intermediate, HIVES, 08/21/16) Iron Sucrose (Unverified Adverse Reaction, Mild, n&v, abd pain, 08/21/16) Social History Smoking Status: Never Smoker Hx Tobacco Use In Past Year?: No Hx Alcohol Use - Type And Amou: No Hx Substance Use - Type And Am: No Problem List Medical Problems: (1) Abdominal pain Status: Acute (2) Acute on chronic renal insufficiency Status: Acute (3) Bilateral pleural effusion Status: Acute (4) Constipation Status: Acute (5) Dehydration Status: Acute (6) Diarrhea Status: Acute (7) Elevated serum creatinine Status: Acute (8) Fall Status: Acute (9) Generalized weakness Status: Acute (10) Heart palpitations Status: Acute (11) Hypomagnesemia Status: Acute (12) New onset atrial flutter Status: Acute (13) Pericardial effusion Status: Acute (14) Pneumonia involving left lung Status: Acute (15) Precordial chest pain Status: Acute (16) PVC's (premature ventricular contractions) Status: Acute (17) Ribs, multiple fractures Status: Acute (18) Weakness Status: Acute (19) Weakness Status: Acute Physical Exam Vital Signs Last Vital Signs Documentation Date Time Temp Pulse Resp B/P Pulse Ox O2 Delivery O2 Flow Rate FiO2 08/28/16 12:00 Nasal Cannula 2.0 08/28/16 11:24 36.3 73 20 116/62 99 Physical Exam Constitutional: Level of Distress: NAD, acutely ill, chronically ill Psychiatric: Mental Status: anxious Orientation: to time, to place, to person Head: normocephalic Eyes: Pupils: PERRLA Neck: supple Lungs: Auscultation: no wheezing, no rales/crackles, deminished air movement (L>R) Cardiovascular: Heart Auscultation: no murmurs, irregular rate rhythm Abdomen: Bowel Sounds: normal Inspection & Palpation: soft, non-distended Extremities: no edema Assessment and Plan Assessment and Plan IMPRESSION: 1. Pneumonia with possible aspiration. 2. Chronic diastolic heart failure, large left sided pleural effusion - improved post thoracentesis 3. Pericardial effusion, still small to moderate in size, but improved on echo 08/28/16 4. Paroxysmal atrial flutter. Not an anticoagulation candidate. 5. Chronic renal insufficiency. 6. Chronic anemia, on Procrit. PLAN: start bumex 0.5 mg PO daily, likely have to permit azotemia to prevent pleural effusion from re-accumulating. Wean prednisone down to 15 mg daily. Laboratory Results Last 24 Hours Test 08/28/16 05:39 White Blood Count 7.34 K/uL Red Blood Count 2.55 M/uL Hemoglobin 8.3 g/dL Hematocrit 25.1 % Mean Corpuscular Volume 98.4 fL Mean Corpuscular Hemoglobin 32.5 pg Mean Corpuscular Hemoglobin Concent 33.1 g/dl RDW Standard Deviation 50.4 fL RDW Coefficient of Variation 14.2 % Platelet Count 274 K/uL Mean Platelet Volume 8.9 fL Sodium Level 134 mmol/L Potassium Level 4.5 mmol/L Chloride Level 97 mmol/L Carbon Dioxide Level 28 mmol/L Anion Gap 9.0 mmol/L Blood Urea Nitrogen 50 mg/dl Creatinine 1.90 mg/dl Est Creatinine Clear Calc Drug Dose 16.6 ml/min Estimated GFR () 27.4 Estimated GFR (Non- 23.6 BUN/Creatinine Ratio 26.2 Random Glucose 86 mg/dl Calcium Level 8.6 mg/dl Magnesium Level 2.5 mg/dl
--- NOTE | 2016-08-28 16:20 | Nephrology Progress Note ---
Nephrology Progress Note Date of Service: Aug 28, 2016. Subjective 85 yo female with roger on ckd and hyponatremia in setting of stable pericardial effusion and pleural effusions with sob. Patient is upright in bed. daughter and around her. she continues to have anxiety over prognosis. Also explains that she feels lonely and requires help lifting, doing laundry, and cleaning the house. she is not on O2 and states that she is not SOB. shoulder and back pain continue to be at baseline. no edema, chest pain, or nausea. Objective Date Time Temp Pulse Resp B/P Pulse Ox O2 Delivery O2 Flow Rate FiO2 08/28/16 15:36 37.0 74 18 110/61 93 Room Air 08/28/16 15:31 Nasal Cannula 2.0 08/28/16 12:00 Nasal Cannula 2.0 08/28/16 11:24 36.3 73 20 116/62 99 Nasal Cannula 3.5 08/28/16 10:42 92 20 110/63 94 3.0 08/28/16 08:00 Nasal Cannula 2.0 08/28/16 07:41 36.8 81 18 144/74 100 3.0 08/28/16 04:21 36.4 72 18 170/66 100 Nasal Cannula 3.0 08/28/16 04:00 Nasal Cannula 2.0 08/28/16 00:15 36.6 72 18 165/74 100 Nasal Cannula 3.0 08/27/16 23:59 Nasal Cannula 2.0 08/27/16 20:00 Nasal Cannula 2.0 08/27/16 18:47 36.9 63 18 153/54 99 Room Air Physical Exam: General-aaox3, anxious but cooperative Eyes-no scleral icterus ENT-mmm Neck-supple Lungs-refused posterior exam but anteriorly apically cta. Heart-regular Abdomen-bs+ s/nt/nd Extremities-no c/c/e Neuro-nonfocal Current Inpatient Medications Medications (Trade) Dose Ordered Sig/Jassi Route Start Time Stop Time Status Last Admin Dose Admin Acetaminophen (Tylenol Tab) 650 mg Q4H PRN PO 08/21/16 17:30 09/20/16 17:29 08/28/16 06:18 650 MG Ondansetron HCl (Zofran Inj) 4 mg Q6H PRN IV 08/21/16 17:30 09/20/16 17:29 08/23/16 17:18 4 MG Aspirin (Ecotrin Tab) 81 mg DAILY PO 08/22/16 09:00 09/21/16 08:59 08/28/16 07:31 81 MG Atorvastatin Calcium (Lipitor Tab) 10 mg DAILY PO 08/22/16 09:00 09/21/16 08:59 08/28/16 07:31 10 MG Ferrous Sulfate (Feosol Tab) 325 mg BID PO 08/21/16 21:00 09/20/16 20:59 08/28/16 07:30 325 MG Levothyroxine Sodium (Synthroid Tab) 75 mcg DAILYBB PO 08/22/16 06:00 09/21/16 05:59 08/28/16 05:57 75 MCG Lorazepam (Ativan Tab) 1 mg TID PRN PO 08/21/16 18:15 09/20/16 18:14 08/28/16 07:30 1 MG Mirtazapine (Remeron Tab) 7.5 mg HS PO 08/21/16 21:00 09/20/16 20:59 08/27/16 20:29 7.5 MG Nifedipine (Procardia Xl Tab) 30 mg DAILY PO 08/22/16 09:00 09/21/16 08:59 Future Hold 08/22/16 07:42 30 MG Metoprolol Tartrate (Lopressor Iv) 5 mg Q6 PRN IV 08/22/16 09:30 09/21/16 09:29 Metoprolol Tartrate (Lopressor Tab) 12.5 mg BID PO 08/22/16 21:00 09/21/16 20:59 08/28/16 07:31 12.5 MG Albuterol Sulfate (Ventolin 0.083% 2.5MG/3ML Neb) 2.5 mg Q6R PRN INH 08/23/16 04:00 09/22/16 03:59 08/23/16 22:42 2.5 MG Heparin Sodium (Porcine) (Heparin Sq 5000 Unit/0.5ml) 5,000 unit Q12 SQ 08/23/16 21:00 09/22/16 20:59 08/28/16 07:32 5,000 UNIT Polyethylene (Miralax Powder Packet) 17 gm DAILY PRN PO 08/23/16 12:00 09/22/16 11:59 Docusate Sodium (coLACE CAP) 100 mg BID PO 08/23/16 12:00 09/22/16 11:59 08/28/16 07:31 100 MG Pantoprazole Sodium (Protonix Tab) 40 mg BID PO 08/25/16 21:00 09/24/16 20:59 08/28/16 07:30 40 MG Al Hydrox/Mg Hydrox/Simethicone (Maalox Max Susp) 30 ml Q6H PRN PO 08/25/16 19:30 09/24/16 19:29 Ranitidine HCl (zANTac TAB) 150 mg QAM PO 08/26/16 09:00 09/25/16 08:59 08/28/16 07:31 150 MG Prednisone (PredniSONE TAB) 15 mg DAILY PO 08/29/16 09:00 09/28/16 08:59 Bumetanide (Bumex Tab) 0.5 mg QAM PO 08/29/16 09:00 09/28/16 08:59 Last 24 Hours Test 08/28/16 05:39 White Blood Count 7.34 K/uL Red Blood Count 2.55 M/uL Hemoglobin 8.3 g/dL Hematocrit 25.1 % Mean Corpuscular Volume 98.4 fL Mean Corpuscular Hemoglobin 32.5 pg Mean Corpuscular Hemoglobin Concent 33.1 g/dl RDW Standard Deviation 50.4 fL RDW Coefficient of Variation 14.2 % Platelet Count 274 K/uL Mean Platelet Volume 8.9 fL Sodium Level 134 mmol/L Potassium Level 4.5 mmol/L Chloride Level 97 mmol/L Carbon Dioxide Level 28 mmol/L Anion Gap 9.0 mmol/L Blood Urea Nitrogen 50 mg/dl Creatinine 1.90 mg/dl Est Creatinine Clear Calc Drug Dose 16.6 ml/min Estimated GFR () 27.4 Estimated GFR (Non- 23.6 BUN/Creatinine Ratio 26.2 Random Glucose 86 mg/dl Calcium Level 8.6 mg/dl Magnesium Level 2.5 mg/dl Assessment & Plan 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 sodium improved at 134. ROGER on ckd-likely atn. Creatinine continues to be stable and at baseline at 1.9. no need for dialysis. volume status acceptable. continue to monitor. Anemia of renal Failure-hgb improved to 8.3 today. Continue procrit therapy during hospital stay with transfusion prn if patient agreeable. [id number] continues to be stable at 4.5. Patient was anxious about being left alone at home but stated that she was unsure if she wanted a automotive parts interpreter to help with ADLs. Defer to primary service and SW for discussion/management. This patient was seen and treated with direct collaboration with Dr. Hwang. Thank you for the opportunity to participate in this patient's care. Appreciate the Consult. ATTENDING NOTE: I performed a history and physical examination of the patient, including specifically on history- continues to have underlying anxiety although was much worse in the past, , on physical exam-no edema in lower extremities, and my impression and plan are ckd stage 4-creatinine has improved back to baseline and remained stable through hospital course. I have discussed the patient's management with Lisa Woodard PA-C, Please refer to above note for the documented findings and plan of care. Karen Hwang DO
--- NOTE | 2016-08-28 17:20 | Progress Note ---
Subjective Date of Service: Aug 28, 2016. Subjective Pt evaluation today including: conversation w/ patient, physical exam, lab review, review of studies, review of inpatient medication list Saw/examined the patient in room 231 +anxious this morning, c/o chest pain earlier denies shortness of breath almost tearful when mentioning discharge planning Problem List Medical Problems: (1) Abdominal pain Status: Acute (2) Acute on chronic renal insufficiency Status: Acute (3) Bilateral pleural effusion Status: Acute (4) Constipation Status: Acute (5) Dehydration Status: Acute (6) Diarrhea Status: Acute (7) Elevated serum creatinine Status: Acute (8) Fall Status: Acute (9) Generalized weakness Status: Acute (10) Heart palpitations Status: Acute (11) Hypomagnesemia Status: Acute (12) New onset atrial flutter Status: Acute (13) Pericardial effusion Status: Acute (14) Pneumonia involving left lung Status: Acute (15) Precordial chest pain Status: Acute (16) PVC's (premature ventricular contractions) Status: Acute (17) Ribs, multiple fractures Status: Acute (18) Weakness Status: Acute (19) Weakness Status: Acute Review of Systems Constitutional: No chills, No fever Respiratory: No cough, No shortness of breath, No sputum Cardiac: No chest pain Medications Current Inpatient Medications Medications (Trade) Dose Ordered Sig/Jassi Route Start Time Stop Time Status Last Admin Dose Admin Acetaminophen (Tylenol Tab) 650 mg Q4H PRN PO 08/21/16 17:30 09/20/16 17:29 08/28/16 06:18 650 MG Ondansetron HCl (Zofran Inj) 4 mg Q6H PRN IV 08/21/16 17:30 09/20/16 17:29 08/23/16 17:18 4 MG Aspirin (Ecotrin Tab) 81 mg DAILY PO 08/22/16 09:00 09/21/16 08:59 08/28/16 07:31 81 MG Atorvastatin Calcium (Lipitor Tab) 10 mg DAILY PO 08/22/16 09:00 09/21/16 08:59 08/28/16 07:31 10 MG Ferrous Sulfate (Feosol Tab) 325 mg BID PO 08/21/16 21:00 09/20/16 20:59 08/28/16 07:30 325 MG Levothyroxine Sodium (Synthroid Tab) 75 mcg DAILYBB PO 08/22/16 06:00 09/21/16 05:59 08/28/16 05:57 75 MCG Lorazepam (Ativan Tab) 1 mg TID PRN PO 08/21/16 18:15 09/20/16 18:14 08/28/16 07:30 1 MG Mirtazapine (Remeron Tab) 7.5 mg HS PO 08/21/16 21:00 09/20/16 20:59 08/27/16 20:29 7.5 MG Nifedipine (Procardia Xl Tab) 30 mg DAILY PO 08/22/16 09:00 09/21/16 08:59 Future Hold 08/22/16 07:42 30 MG Metoprolol Tartrate (Lopressor Iv) 5 mg Q6 PRN IV 08/22/16 09:30 09/21/16 09:29 Metoprolol Tartrate (Lopressor Tab) 12.5 mg BID PO 08/22/16 21:00 09/21/16 20:59 08/28/16 07:31 12.5 MG Albuterol Sulfate (Ventolin 0.083% 2.5MG/3ML Neb) 2.5 mg Q6R PRN INH 08/23/16 04:00 09/22/16 03:59 08/23/16 22:42 2.5 MG Heparin Sodium (Porcine) (Heparin Sq 5000 Unit/0.5ml) 5,000 unit Q12 SQ 08/23/16 21:00 09/22/16 20:59 08/28/16 07:32 5,000 UNIT Polyethylene (Miralax Powder Packet) 17 gm DAILY PRN PO 08/23/16 12:00 09/22/16 11:59 Docusate Sodium (coLACE CAP) 100 mg BID PO 08/23/16 12:00 09/22/16 11:59 08/28/16 07:31 100 MG Pantoprazole Sodium (Protonix Tab) 40 mg BID PO 08/25/16 21:00 09/24/16 20:59 08/28/16 07:30 40 MG Al Hydrox/Mg Hydrox/Simethicone (Maalox Max Susp) 30 ml Q6H PRN PO 08/25/16 19:30 09/24/16 19:29 Ranitidine HCl (zANTac TAB) 150 mg QAM PO 08/26/16 09:00 09/25/16 08:59 08/28/16 07:31 150 MG Prednisone (PredniSONE TAB) 15 mg DAILY PO 08/29/16 09:00 09/28/16 08:59 Bumetanide (Bumex Tab) 0.5 mg QAM PO 08/29/16 09:00 09/28/16 08:59 Objective Vital Signs Date Time Temp Pulse Resp B/P Pulse Ox O2 Delivery O2 Flow Rate FiO2 08/28/16 15:36 37.0 74 18 110/61 93 Room Air 08/28/16 15:31 Nasal Cannula 2.0 08/28/16 12:00 Nasal Cannula 2.0 08/28/16 11:24 36.3 73 20 116/62 99 Nasal Cannula 3.5 08/28/16 10:42 92 20 110/63 94 3.0 08/28/16 08:00 Nasal Cannula 2.0 08/28/16 07:41 36.8 81 18 144/74 100 3.0 08/28/16 04:21 36.4 72 18 170/66 100 Nasal Cannula 3.0 08/28/16 04:00 Nasal Cannula 2.0 08/28/16 00:15 36.6 72 18 165/74 100 Nasal Cannula 3.0 08/27/16 23:59 Nasal Cannula 2.0 08/27/16 20:00 Nasal Cannula 2.0 08/27/16 18:47 36.9 63 18 153/54 99 Room Air Physical Exam General Appearance: no apparent distress Respiratory/Chest: lungs clear, normal breath sounds, no respiratory distress, no accessory muscle use Cardiovascular: regular rate, rhythm, no edema, no murmur Abdomen: normal bowel sounds, non tender, soft Extremities: normal inspection, no pedal edema Neurologic/Psychiatric: + pertinent finding (+anxious) Laboratory Results Last 24 Hours Test 08/28/16 05:39 White Blood Count 7.34 K/uL Red Blood Count 2.55 M/uL Hemoglobin 8.3 g/dL Hematocrit 25.1 % Mean Corpuscular Volume 98.4 fL Mean Corpuscular Hemoglobin 32.5 pg Mean Corpuscular Hemoglobin Concent 33.1 g/dl RDW Standard Deviation 50.4 fL RDW Coefficient of Variation 14.2 % Platelet Count 274 K/uL Mean Platelet Volume 8.9 fL Sodium Level 134 mmol/L Potassium Level 4.5 mmol/L Chloride Level 97 mmol/L Carbon Dioxide Level 28 mmol/L Anion Gap 9.0 mmol/L Blood Urea Nitrogen 50 mg/dl Creatinine 1.90 mg/dl Est Creatinine Clear Calc Drug Dose 16.6 ml/min Estimated GFR () 27.4 Estimated GFR (Non- 23.6 BUN/Creatinine Ratio 26.2 Random Glucose 86 mg/dl Calcium Level 8.6 mg/dl Magnesium Level 2.5 mg/dl Assessment and Plan This is an 85 year old female with PMH of CKD stage IV, anemia of chronic disease, atrial flutter, HTN, hypothyroidism, anxiety, SIADH presented to the ER on August 21 with body aches and chills - found to have pericardial effusion - later found to have pneumonia and bilateral pleural effusions. She has been requiring oxygen to keep oxygen saturation > 88%; her kidney function was worsened on admission, though now improving. Acute Respiratory Failure Secondary to Pneumonia and Bilateral Pleural Effusions 08/28 * doing okay, will attempt to wean off O2 today * continue abx. * s/p thoracentesis on 08/26 08/27 * s/p thoracentesis on 08/26 * denies shortness of breath * still requiring O2 to keep oxygen saturation > 90% * continue Levaquin * ambulate in hallways * d/c home in 1-2 days 08/26 * acute respiratory failure - requiring continuous oxygen therapy * this is likely secondary to pneumonia and pleural effusions * CHEST ONE VIEW PORTABLE IMPRESSION: 1. No significant change in the moderate to large left and small right pleural effusions. 2. Persistent pulmonary edema. 3. Stable enlargement of the cardiac silhouette. * Chest U/S done this morning - marked for thoracentesis * Plan for thoracentesis later today - likely parapneumonic pleural effusions * Continue Levaquin for pneumonia * Appreciate pulmonology input Pericardial Effusion 08/28 * appreciate cardiology input * limited echo repeated today - moderate pericardial effusion persists * prednisone tapered down to 15mg * Bumex added 08/27 * continue prednisone use for now * limited echo to be performed prior to discharge 08/26 * Echo done on 08/21 Small to medium sized pericardial effusion * initially conservative management to treat pneumonia as above * started on prednisone taper - currently on prednisone 20mg * repeat limited echo prior to discharge * appreciate cardiology input Acute Kidney Injury superimposed on CKD stage IV, resolved 08/27 * creat improved; appreciate nephro input, will monitor 08/26 * creat initially up to 2.6 * likely related to pneumonia; conservative management * continue Lasix every other day * creat now down to 2.0 - back to baseline * appreciate nephrology input Atrial Flutter, rate controlled * rhythm - irregularly irregular * currently rate controlled; continue b-maliha * continue cardiac medications Anemia of Chronic Disease * Hgb - currently stable * no transfusions necessary * continue Procrit * PPI BID * monitor Hgb Hyponatremia/SIADH * Secondary to SIADH + fluid overload * Continue Lasix as tolerated and allowed by kidney function * monitor sodium levels post thoracentesis Anxiety * Continue ativan PRN use Hypothyroidism * TSH wnl * Continue home Synthroid dose DVT ppx * subq heparin FULL CODE
[2016-08-28] MEDS: MIRTAZAPINE TAB 15 MG TAB PO SCH (19:37)
[2016-08-29 00:37] VITALS: BP 171/70; PULSE 74; TEMP 36.4; O2SAT 93
[2016-08-29 04:11] VITALS: BP 168/60; PULSE 65; TEMP 36.6; O2SAT 95
[2016-08-29 06:17] LABS: HEMATOCRIT 27.7 % (37-47); MEAN CELL VOLUME 99.3 fL (80-100); MEAN CORPUSCULAR HEMOGLOBIN 32.6 pg (25-34); MEAN CORPUSCULAR HGB CONC 32.9 g/dl (32-36); MEAN PLATELET VOLUME 8.9 fL (7.4-10.4); PLATELET COUNT 317 K/uL (130-400); RED BLOOD COUNT 2.79 M/uL (4.2-5.4); WHITE BLOOD COUNT 9.41 K/uL (4.8-10.8)
[2016-08-29] MEDS: LEVOTHYROXINE 75 MCG TAB PO SCH (06:21)
[2016-08-29 06:35] LABS: BUN/CREATININE RATIO 29.8 (10-20); CALCIUM 8.7 mg/dl (8.5-10.1); CREATININE 1.7 mg/dl (0.60-1.20); MAGNESIUM 2.4 mg/dl (1.8-2.4); POTASSIUM 4.3 mmol/L (3.5-5.1)
[2016-08-29 07:30] VITALS: BP 170/70; PULSE 86; TEMP 36.8; O2SAT 93
[2016-08-29] MEDS: ASPIRIN 81 MG ECTAB PO SCH (07:36)
[2016-08-29] MEDS: ATORVASTATIN 10 MG TAB PO SCH (07:36)
[2016-08-29] MEDS: DOCUSATE SODIUM 100 MG CAP PO SCH (07:37)
[2016-08-29] MEDS: FERROUS SULFATE 325 MG TAB PO SCH (07:37)
[2016-08-29] MEDS: PANTOprazole SOD 40 MG TAB PO SCH (07:38)
[2016-08-29] MEDS: RANITIDINE HCL 150 MG TAB PO SCH (07:38)
[2016-08-29] MEDS: METOPROLOL TARTRATE 25 MG TAB PO SCH (07:38)
[2016-08-29] MEDS: HEPARIN SOD 5000 UNIT/0.5 ML CARP SQ SCH (07:39)
[2016-08-29] MEDS: LORAZEPAM 1 MG TAB PO PRN (07:44)
[2016-08-29] MEDS ORDERED: EPOETIN ALFA 10,000 UNITS/ML VIAL SQ ONE (08:00)
[2016-08-29] MEDS ORDERED: BUMETANIDE 1 MG TAB PO SCH (09:00)
--- NOTE | 2016-08-29 09:07 | Progress Note ---
Subjective Date of Service: Aug 29, 2016. Subjective Pt evaluation today including: conversation w/ patient, physical exam, lab review, review of studies, review of inpatient medication list Saw/examined the patient in room 231 Doing okay today Less anxious Seems agreeable to SNF No shortness of breath or chest pain Problem List Medical Problems: (1) Abdominal pain Status: Acute (2) Acute on chronic renal insufficiency Status: Acute (3) Bilateral pleural effusion Status: Acute (4) Constipation Status: Acute (5) Dehydration Status: Acute (6) Diarrhea Status: Acute (7) Elevated serum creatinine Status: Acute (8) Fall Status: Acute (9) Generalized weakness Status: Acute (10) Heart palpitations Status: Acute (11) Hypomagnesemia Status: Acute (12) New onset atrial flutter Status: Acute (13) Pericardial effusion Status: Acute (14) Pneumonia involving left lung Status: Acute (15) Precordial chest pain Status: Acute (16) PVC's (premature ventricular contractions) Status: Acute (17) Ribs, multiple fractures Status: Acute (18) Weakness Status: Acute (19) Weakness Status: Acute Review of Systems Respiratory: No cough, No shortness of breath, No sputum Cardiac: No chest pain, No edema, No palpitations Abdomen: No diarrhea, No nausea, No pain, No vomiting Objective Vital Signs Date Time Temp Pulse Resp B/P Pulse Ox O2 Delivery O2 Flow Rate FiO2 08/29/16 08:00 Nasal Cannula 2.0 08/29/16 07:30 36.8 86 16 170/70 93 Room Air 08/29/16 04:11 36.6 65 17 168/60 95 Room Air 08/29/16 04:00 Room Air 08/29/16 00:37 36.4 74 17 171/70 93 Room Air 08/28/16 23:59 Room Air 08/28/16 20:00 Nasal Cannula 2.0 08/28/16 19:48 37.2 76 18 164/88 95 Room Air 08/28/16 15:36 37.0 74 18 110/61 93 Room Air 08/28/16 15:31 Nasal Cannula 2.0 08/28/16 12:00 Nasal Cannula 2.0 08/28/16 11:24 36.3 73 20 116/62 99 Nasal Cannula 3.5 08/28/16 10:42 92 20 110/63 94 3.0 Physical Exam General Appearance: no apparent distress Respiratory/Chest: lungs clear, normal breath sounds, no respiratory distress, no accessory muscle use Cardiovascular: regular rate, rhythm, no edema, no murmur Abdomen: normal bowel sounds, non tender, soft Laboratory Results Last 24 Hours Test 08/29/16 05:33 White Blood Count 9.41 K/uL Red Blood Count 2.79 M/uL Hemoglobin 9.1 g/dL Hematocrit 27.7 % Mean Corpuscular Volume 99.3 fL Mean Corpuscular Hemoglobin 32.6 pg Mean Corpuscular Hemoglobin Concent 32.9 g/dl RDW Standard Deviation 51.9 fL RDW Coefficient of Variation 14.5 % Platelet Count 317 K/uL Mean Platelet Volume 8.9 fL Sodium Level 134 mmol/L Potassium Level 4.3 mmol/L Chloride Level 97 mmol/L Carbon Dioxide Level 29 mmol/L Anion Gap 8.0 mmol/L Blood Urea Nitrogen 51 mg/dl Creatinine 1.70 mg/dl Est Creatinine Clear Calc Drug Dose 18.5 ml/min Estimated GFR () 31.3 Estimated GFR (Non- 27.0 BUN/Creatinine Ratio 29.8 Random Glucose 86 mg/dl Calcium Level 8.7 mg/dl Magnesium Level 2.4 mg/dl Assessment and Plan This is an 85 year old female with PMH of CKD stage IV, anemia of chronic disease, atrial flutter, HTN, hypothyroidism, anxiety, SIADH presented to the ER on August 21 with body aches and chills - found to have pericardial effusion - later found to have pneumonia and bilateral pleural effusions. She has been requiring oxygen to keep oxygen saturation > 88%; her kidney function was worsened on admission, though now improving. Acute Respiratory Failure Secondary to Pneumonia and Bilateral Pleural Effusions 08/29 * plan is for weaning off of O2 * Continue antibiotics every other day until 08/31 * case management for discussion about SNF vs. home - would benefit from SNF 08/28 * doing okay, will attempt to wean off O2 today * continue abx. * s/p thoracentesis on 08/26 08/27 * s/p thoracentesis on 08/26 * denies shortness of breath * still requiring O2 to keep oxygen saturation > 90% * continue Levaquin * ambulate in hallways * d/c home in 1-2 days 08/26 * acute respiratory failure - requiring continuous oxygen therapy * this is likely secondary to pneumonia and pleural effusions * CHEST ONE VIEW PORTABLE IMPRESSION: 1. No significant change in the moderate to large left and small right pleural effusions. 2. Persistent pulmonary edema. 3. Stable enlargement of the cardiac silhouette. * Chest U/S done this morning - marked for thoracentesis * Plan for thoracentesis later today - likely parapneumonic pleural effusions * Continue Levaquin for pneumonia * Appreciate pulmonology input Pericardial Effusion 08/29 * pericardial effusion persists but improved * continue Bumex * remove Villegas and voiding trial today * prednisone tapered to 15mg as of yesterday 08/28 * appreciate cardiology input * limited echo repeated today - moderate pericardial effusion persists * prednisone tapered down to 15mg * Bumex added 08/27 * continue prednisone use for now * limited echo to be performed prior to discharge 08/26 * Echo done on 08/21 Small to medium sized pericardial effusion * initially conservative management to treat pneumonia as above * started on prednisone taper - currently on prednisone 20mg * repeat limited echo prior to discharge * appreciate cardiology input Acute Kidney Injury superimposed on CKD stage IV, resolved 08/29 * creat down to 1.7; monitor with Bumex use and Villegas removal 08/27 * creat improved; appreciate nephro input, will monitor 08/26 * creat initially up to 2.6 * likely related to pneumonia; conservative management * continue Lasix every other day * creat now down to 2.0 - back to baseline * appreciate nephrology input Atrial Flutter, rate controlled * rhythm - irregularly irregular * currently rate controlled; continue b-maliha * continue cardiac medications * not an anticoagulation candidate Anemia of Chronic Disease * Hgb - currently stable * no transfusions necessary * continue Procrit * PPI BID * monitor Hgb Hyponatremia/SIADH * Secondary to SIADH + fluid overload * Continue Lasix as tolerated and allowed by kidney function * monitor sodium levels post thoracentesis Anxiety * Continue Ativan around the clock Hypothyroidism * TSH wnl * Continue home Synthroid dose DVT ppx * subq heparin FULL CODE
[2016-08-29] MEDS: ACETAMINOPHEN 325 MG TAB PO PRN (09:53)
--- NOTE | 2016-08-29 09:53 | Cardiology Follow-Up ---
Subjective General Date of Service: Aug 29, 2016. Chief Complaint: SOB Pt evaluation today including: conversation w/ patient, physical exam, chart review, lab review, review of studies, review of inpatient medication list History of Present Illness Patient feeling ok today. Only complaint is feeling tired. Denies chest pain or SOB. No dizziness or palpitations. No orthopnea, PND or LE edema. Allergies Coded Allergies: Penicillins (Verified Allergy, Intermediate, HIVES, 08/21/16) Iron Sucrose (Unverified Adverse Reaction, Mild, n&v, abd pain, 08/21/16) Social History Smoking Status: Never Smoker Hx Tobacco Use In Past Year?: No Hx Alcohol Use - Type And Amou: No Hx Substance Use - Type And Am: No Problem List Medical Problems: (1) Abdominal pain Status: Acute (2) Acute on chronic renal insufficiency Status: Acute (3) Bilateral pleural effusion Status: Acute (4) Constipation Status: Acute (5) Dehydration Status: Acute (6) Diarrhea Status: Acute (7) Elevated serum creatinine Status: Acute (8) Fall Status: Acute (9) Generalized weakness Status: Acute (10) Heart palpitations Status: Acute (11) Hypomagnesemia Status: Acute (12) New onset atrial flutter Status: Acute (13) Pericardial effusion Status: Acute (14) Pneumonia involving left lung Status: Acute (15) Precordial chest pain Status: Acute (16) PVC's (premature ventricular contractions) Status: Acute (17) Ribs, multiple fractures Status: Acute (18) Weakness Status: Acute (19) Weakness Status: Acute Review of Systems Respiratory: No cough, No dyspnea at rest, No dyspnea on exertion, No hemoptysis, No shortness of breath, No sputum, No wheezing Cardiac: No PND, No chest pain, No edema, No orthopnea, No palpitations Physical Exam Vital Signs Last Vital Signs Documentation Date Time Temp Pulse Resp B/P Pulse Ox O2 Delivery O2 Flow Rate FiO2 08/29/16 08:00 Nasal Cannula 2.0 08/29/16 07:30 36.8 86 16 170/70 93 Physical Exam Constitutional: Level of Distress: NAD, acutely ill, chronically ill Psychiatric: Mental Status: anxious Orientation: to time, to place, to person Head: normocephalic Eyes: Pupils: PERRLA Neck: supple Lungs: Auscultation: no wheezing, no rales/crackles, deminished air movement (L>R) Cardiovascular: Heart Auscultation: no murmurs, irregular rate rhythm Abdomen: Bowel Sounds: normal Inspection & Palpation: soft, non-distended Extremities: no edema Assessment and Plan Assessment and Plan IMPRESSION: 1. Pneumonia with possible aspiration. 2. Large left sided pleural effusion, improved post left sided thoracentesis 3. Pericardial effusion, moderate without hemodynamic compromise, likely old - mildly elevated ESR, negative NORTH, lyme and RF 4. Paroxysmal atrial flutter. Not an anticoagulation candidate. 5. Chronic renal insufficiency. 6. Chronic anemia, on Procrit. PLAN: Continue ASA and low dose beta maliha for paroxysmal atrial flutter with controlled ventricular rate. Currently in NSR. No anticoagulation therapy given age, fall risk, anemia. Repeat echo shows interval improvement in pericardial effusion - There is a small to moderate circumferential pericardial effusion. The most significant amount of fluid is adjacent to the inferolateral and lateral left ventricular marie. There are no echocardiographic indications of cardiac tamponade. There is a small to moderate size left pleural effusion. Small right pleural effusion. Compared to the prior study dated 08/21/16, there has been an interval improvement in the size of the pericardial effusion and left pleural effusion Continue prednisone taper, currently receiving 15 mg daily. Taper over 3 weeks - 15 mg x5 days, 10 mg x 5 days, 5 mg x 5 days, 2.5 x 5 days. Diuretics changed to low dose bumex 0.5 mg- daily. repeat labs pending this AM. Would benefit from SNF. Case management involved. Case discussed with Dr. Navarro. CARDIOLOGY ATTENDING ADDENDUM: The patient was seen and personally examined. Agree with Birgit Irizarry PA-C's findings and plans as documented above. Medication changes / plan as noted above. Stable from my perspective to transfer to SNF. Laboratory Results Last 24 Hours Test 08/29/16 05:33 White Blood Count 9.41 K/uL Red Blood Count 2.79 M/uL Hemoglobin 9.1 g/dL Hematocrit 27.7 % Mean Corpuscular Volume 99.3 fL Mean Corpuscular Hemoglobin 32.6 pg Mean Corpuscular Hemoglobin Concent 32.9 g/dl RDW Standard Deviation 51.9 fL RDW Coefficient of Variation 14.5 % Platelet Count 317 K/uL Mean Platelet Volume 8.9 fL Sodium Level 134 mmol/L Potassium Level 4.3 mmol/L Chloride Level 97 mmol/L Carbon Dioxide Level 29 mmol/L Anion Gap 8.0 mmol/L Blood Urea Nitrogen 51 mg/dl Creatinine 1.70 mg/dl Est Creatinine Clear Calc Drug Dose 18.5 ml/min Estimated GFR () 31.3 Estimated GFR (Non- 27.0 BUN/Creatinine Ratio 29.8 Random Glucose 86 mg/dl Calcium Level 8.7 mg/dl Magnesium Level 2.4 mg/dl
--- NOTE | 2016-08-29 10:57 | Nephrology Progress Note ---
Nephrology Progress Note Date of Service: Aug 29, 2016. Subjective 85 yo female with roger on ckd and hyponatremia in setting of stable pericardial effusion and pleural effusions with sob. Patient is seated comfortably in a chair at bedside. she has finished her breakfast and is in a slightly improved mood today. still anxious about recurrence of condition and prognosis. On O2 and denies increased SOB. states that shoulder and back pain are controlled this morning but doesn't want to move. no edema, chest pain, or nausea. Objective Date Time Temp Pulse Resp B/P Pulse Ox O2 Delivery O2 Flow Rate FiO2 08/29/16 08:00 Nasal Cannula 2.0 08/29/16 07:30 36.8 86 16 170/70 93 Room Air 08/29/16 04:11 36.6 65 17 168/60 95 Room Air 08/29/16 04:00 Room Air 08/29/16 00:37 36.4 74 17 171/70 93 Room Air 08/28/16 23:59 Room Air 08/28/16 20:00 Nasal Cannula 2.0 08/28/16 19:48 37.2 76 18 164/88 95 Room Air 08/28/16 15:36 37.0 74 18 110/61 93 Room Air 08/28/16 15:31 Nasal Cannula 2.0 08/28/16 12:00 Nasal Cannula 2.0 08/28/16 11:24 36.3 73 20 116/62 99 Nasal Cannula 3.5 Physical Exam: General-aaox3, anxious but cooperative Eyes-no scleral icterus ENT-mmm Neck-supple Lungs-refused posterior exam but anteriorly apically cta. Heart-regular Abdomen-bs+ s/nt/nd Extremities-no c/c/e Neuro-nonfocal Current Inpatient Medications Medications (Trade) Dose Ordered Sig/Jassi Route Start Time Stop Time Status Last Admin Dose Admin Acetaminophen (Tylenol Tab) 650 mg Q4H PRN PO 08/21/16 17:30 09/20/16 17:29 08/29/16 09:53 650 MG Ondansetron HCl (Zofran Inj) 4 mg Q6H PRN IV 08/21/16 17:30 09/20/16 17:29 08/23/16 17:18 4 MG Aspirin (Ecotrin Tab) 81 mg DAILY PO 08/22/16 09:00 09/21/16 08:59 08/29/16 07:36 81 MG Atorvastatin Calcium (Lipitor Tab) 10 mg DAILY PO 08/22/16 09:00 09/21/16 08:59 08/29/16 07:36 10 MG Ferrous Sulfate (Feosol Tab) 325 mg BID PO 08/21/16 21:00 09/20/16 20:59 08/29/16 07:37 325 MG Levothyroxine Sodium (Synthroid Tab) 75 mcg DAILYBB PO 08/22/16 06:00 09/21/16 05:59 08/29/16 06:21 75 MCG Lorazepam (Ativan Tab) 1 mg TID PRN PO 08/21/16 18:15 09/20/16 18:14 08/29/16 07:44 1 MG Mirtazapine (Remeron Tab) 7.5 mg HS PO 08/21/16 21:00 09/20/16 20:59 08/28/16 19:37 7.5 MG Nifedipine (Procardia Xl Tab) 30 mg DAILY PO 08/22/16 09:00 09/21/16 08:59 Future Hold 08/22/16 07:42 30 MG Metoprolol Tartrate (Lopressor Iv) 5 mg Q6 PRN IV 08/22/16 09:30 09/21/16 09:29 Metoprolol Tartrate (Lopressor Tab) 12.5 mg BID PO 08/22/16 21:00 09/21/16 20:59 08/29/16 07:38 12.5 MG Albuterol Sulfate (Ventolin 0.083% 2.5MG/3ML Neb) 2.5 mg Q6R PRN INH 08/23/16 04:00 09/22/16 03:59 08/23/16 22:42 2.5 MG Heparin Sodium (Porcine) (Heparin Sq 5000 Unit/0.5ml) 5,000 unit Q12 SQ 08/23/16 21:00 09/22/16 20:59 08/29/16 07:39 5,000 UNIT Polyethylene (Miralax Powder Packet) 17 gm DAILY PRN PO 08/23/16 12:00 09/22/16 11:59 Docusate Sodium (coLACE CAP) 100 mg BID PO 08/23/16 12:00 09/22/16 11:59 08/29/16 07:37 100 MG Pantoprazole Sodium (Protonix Tab) 40 mg BID PO 08/25/16 21:00 09/24/16 20:59 08/29/16 07:38 40 MG Al Hydrox/Mg Hydrox/Simethicone (Maalox Max Susp) 30 ml Q6H PRN PO 08/25/16 19:30 09/24/16 19:29 Ranitidine HCl (zANTac TAB) 150 mg QAM PO 08/26/16 09:00 09/25/16 08:59 08/29/16 07:38 150 MG Prednisone (PredniSONE TAB) 15 mg DAILY PO 08/29/16 09:00 09/28/16 08:59 08/29/16 07:37 15 MG Bumetanide (Bumex Tab) 0.5 mg QAM PO 08/29/16 09:00 09/28/16 08:59 08/29/16 07:37 0.5 MG Last 24 Hours Test 08/29/16 05:33 White Blood Count 9.41 K/uL Red Blood Count 2.79 M/uL Hemoglobin 9.1 g/dL Hematocrit 27.7 % Mean Corpuscular Volume 99.3 fL Mean Corpuscular Hemoglobin 32.6 pg Mean Corpuscular Hemoglobin Concent 32.9 g/dl RDW Standard Deviation 51.9 fL RDW Coefficient of Variation 14.5 % Platelet Count 317 K/uL Mean Platelet Volume 8.9 fL Sodium Level 134 mmol/L Potassium Level 4.3 mmol/L Chloride Level 97 mmol/L Carbon Dioxide Level 29 mmol/L Anion Gap 8.0 mmol/L Blood Urea Nitrogen 51 mg/dl Creatinine 1.70 mg/dl Est Creatinine Clear Calc Drug Dose 18.5 ml/min Estimated GFR () 31.3 Estimated GFR (Non- 27.0 BUN/Creatinine Ratio 29.8 Random Glucose 86 mg/dl Calcium Level 8.7 mg/dl Magnesium Level 2.4 mg/dl Other Studies: 08/27/16 08/28/16 08/29/16 07:59 07:59 07:59 Intake Total 540 ml 760 ml 800 ml Output Total 750 ml 1400 ml 900 ml Balance -210 ml -640 ml -100 ml Assessment & Plan 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 sodium stable at 134. Fluid restriction will need to be discussed with patient upon discharge as she measures her fluid at home aggressively. ROGER on ckd-likely atn. Creatinine continues to be stable and at baseline at 1.7. no need for dialysis. volume status acceptable. continue to monitor. Anemia of renal Failure-received Epo earlier this morning. continuing to monitor hgb-improved to 9.1 today. Continue procrit therapy during hospital stay. [id number] continues to be stable at 4.3. This patient was seen and treated with direct collaboration with Dr. Hwang. Thank you for the opportunity to participate in this patient's care. Appreciate the Consult. ATTENDING NOTE: I performed a history and physical examination of the patient, including specifically on history- pt is anxious about going home and whether she will know what medications to take or not, on physical exam-cta, and my impression and plan are CKD and electrolytes are stable. I have discussed the patient's management with Lisa Woodard PA-C, Please refer to above note for the documented findings and plan of care. Karen Hwang DO
[2016-08-29 11:23] VITALS: BP 143/58; PULSE 75; TEMP 37; O2SAT 95
[2016-08-29] MEDS ORDERED: LPR25 PO (16:21)
[2016-08-29] MEDS ORDERED: ZNT150 PO (16:21)
[2016-08-29] MEDS ORDERED: PRD5 PO (16:21)
[2016-08-29] MEDS ORDERED: BMX1 PO (16:21)
[2016-08-29] MEDS ORDERED: CLC100 PO (16:21)
[2016-08-29] MEDS ORDERED: LEVO-459 PO (16:22)
--- NOTE | 2016-08-29 16:34 | Discharge Instructions ---
Discharge Instructions Admission Reason for Admission: Pericardial Effusion, Pneumonia Discharge Discharge Diagnosis / Problem: Pneumonia, pericardial effusion Discharge Goals Goal(s): Decrease discomfort, Improve function Activity Recommendations Activity Limitations: resume your previous activity . Instructions / Follow-Up Instructions / Follow-Up Please follow-up with Dr. Quevedo on September 03 @ 1:50PM * You will be discharged on prednisone * Please take 15mg (three tablets) from 08/30-09/03 * Please take 10mg (two tablets) from 09/04-09/08 * Please take 5mg (one tablet) from 09/09-09/13 * Please take 2.5mg (half tablet) from 09/14-09/18 * Please stop taking Lasix * You will now be prescribed Bumex - take this daily * You will be prescribed Levaquin (antibiotic) - take every other day (two pills ) * Primary care should recheck CXR within a week to follow-up on pleural effusion (fluid in the lungs) * Please follow-up with cardiology Current Hospital Diet Patient's current hospital diet: AHA Diet (Heart Healthy), Low Potassium Diet ( 2g K) Discharge Diet Recommended Diet: AHA Diet (Heart Healthy) Fluid Restriction: 1200 ml (5 cups) Pending Studies Studies pending at discharge: no Medical Emergencies . Who to Call and When: Medical Emergencies: If at any time you feel your situation is an emergency, please call 911 immediately. . Non-Emergent Contact Non-Emergency issues call your: Primary Care Provider, Power Screwdriver Operator . . "Provider Documentation" section prepared by Shawn Moeller. VTE Core Measure Inpt VTE Proph given/why not?: Unfractionated heparin SQ, SCD's
--- NOTE | 2016-08-29 16:35 | Discharge Summary ---
Discharge Summary Admission Date: Aug 21, 2016 at 17:29 Discharge Date: Aug 29, 2016 Discharge Disposition: Home with services Principal Diagnosis: Pneumonia Pleural Effusion Pericardial Effusion Medication Reconciliation New Medications: Levofloxacin (Levaquin) 500 Mg Tab 500 MG PO Q2D for 4 Days, #2 TABS Bumetanide (Bumetanide) 1 Mg Tab 0.5 MG PO QAM for 30 Days, #15 TAB Docusate Sodium (Docusate Sodium) 100 Mg Cap 100 MG PO BID for 30 Days, #60 CAP Metoprolol Tartrate (Lopressor) 25 Mg Tab 12.5 MG PO BID for 30 Days, #30 TAB Prednisone (Prednisone) 5 Mg Tab 15 MG PO DAILY for 20 Days, #33 TAB Ranitidine HCl (Ranitidine HCl) 150 Mg Tab 150 MG PO QAM for 30 Days, #30 TAB Continued Medications: Aspirin (Aspirin Ec) 81 Mg Tab 81 MG PO DAILY Atorvastatin (Lipitor) 10 Mg Tab 10 MG PO DAILY Epoetin Rafael (Procrit) 10,000 Unit/ [place] [id number] UNITS SC [id number], VIAL Ferrous Sulfate (Ferrous Sulfate) 325 Mg Tab 325 MG PO BID Levothyroxine Sodium (Levothyroxine Sodium) 75 Mcg Tab 75 MCG PO DAILY, TAB Lorazepam (Ativan) 1 Mg Tab 1 MG PO TID PRN for Anxiety, TAB Magnesium Oxide (Mag-Ox) 400 Mg Tab 400 MG PO DAILY, TAB Mirtazapine (Remeron) 15 Mg Tab 7.5 MG PO HS for 30 Days, #30 TAB 3 Refills Nifedipine (Nifedipine Er) 30 Mg Tab 1 TAB PO DAILY for 30 Days, #30 TAB 5 Refills Pantoprazole (Protonix) 40 Mg Tab 40 MG PO DAILY, TAB Discontinued Medications: Furosemide (Lasix) 20 Mg Tab 20 MG PO Q2D, TAB Admission Information HPI (per Admitting provider): 85 year old female who presents to the ER with reports mid back pain and generally not feeling well. Patient reports the back pain is chronic for her. She reports she started to feel generally sick last night. She reports generalized body aches and chills. She did not take her temperature at home. Patient denies shortness of breath, cough, or sputum production. No chest pain. She denies lightheadedness and dizziness. No abdominal pain, nausea, vomiting, or diarrhea. She reports dysuria. In the ER, patient had CT abd/pelvis for evaluation of renal calculi that was negative for stones however did show a large pericardial effusion. CXR is showing left basilar consolidation. Patient was given Levaquin, morphine, and Zofran. Physical Exam (per Admitting): General Appearance: no apparent distress Head: normocephalic Eyes: normal inspection ENT: hearing grossly normal Neck: supple, no JVD Respiratory/Chest: no respiratory distress, + decreased breath sounds Cardiovascular: regular rate, rhythm, no edema, normal peripheral pulses Abdomen/GI: normal bowel sounds, non tender, soft Extremities/Musculoskelatal: normal inspection, no calf tenderness Neurologic/Psych: no motor/sensory deficits, alert, normal mood/affect, oriented x 3 Skin: normal color, warm/dry Hospital Course This is an 85 year old female with PMH of CKD stage IV, anemia of chronic disease, atrial flutter, HTN, hypothyroidism, anxiety, SIADH presented to the ER on August 21 with body aches and chills - found to have pericardial effusion - later found to have pneumonia and bilateral pleural effusions. She has been requiring oxygen to keep oxygen saturation > 88%; her kidney function was worsened on admission, though now improving. Acute Respiratory Failure Secondary to Pneumonia and Bilateral Pleural Effusions 08/29 * plan is for weaning off of O2 * Continue antibiotics every other day until 08/31 * case management for discussion about SNF vs. home - would benefit from SNF 08/28 * doing okay, will attempt to wean off O2 today * continue abx. * s/p thoracentesis on 08/26 08/27 * s/p thoracentesis on 08/26 * denies shortness of breath * still requiring O2 to keep oxygen saturation > 90% * continue Levaquin * ambulate in hallways * d/c home in 1-2 days 08/26 * acute respiratory failure - requiring continuous oxygen therapy * this is likely secondary to pneumonia and pleural effusions * CHEST ONE VIEW PORTABLE IMPRESSION: 1. No significant change in the moderate to large left and small right pleural effusions. 2. Persistent pulmonary edema. 3. Stable enlargement of the cardiac silhouette. * Chest U/S done this morning - marked for thoracentesis * Plan for thoracentesis later today - likely parapneumonic pleural effusions * Continue Levaquin for pneumonia * Appreciate pulmonology input Pericardial Effusion 08/29 * pericardial effusion persists but improved * continue Bumex * remove Villegas and voiding trial today * prednisone tapered to 15mg as of yesterday 08/28 * appreciate cardiology input * limited echo repeated today - moderate pericardial effusion persists * prednisone tapered down to 15mg * Bumex added 08/27 * continue prednisone use for now * limited echo to be performed prior to discharge 08/26 * Echo done on 08/21 Small to medium sized pericardial effusion * initially conservative management to treat pneumonia as above * started on prednisone taper - currently on prednisone 20mg * repeat limited echo prior to discharge * appreciate cardiology input Acute Kidney Injury superimposed on CKD stage IV, resolved 08/29 * creat down to 1.7; monitor with Bumex use and Villegas removal 08/27 * creat improved; appreciate nephro input, will monitor 08/26 * creat initially up to 2.6 * likely related to pneumonia; conservative management * continue Lasix every other day * creat now down to 2.0 - back to baseline * appreciate nephrology input Atrial Flutter, rate controlled * rhythm - irregularly irregular * currently rate controlled; continue b-maliha * continue cardiac medications * not an anticoagulation candidate Anemia of Chronic Disease * Hgb - currently stable * no transfusions necessary * continue Procrit * PPI BID * monitor Hgb Hyponatremia/SIADH * Secondary to SIADH + fluid overload * Continue Lasix as tolerated and allowed by kidney function * monitor sodium levels post thoracentesis Anxiety * Continue Ativan around the clock Hypothyroidism * TSH wnl * Continue home Synthroid dose DVT ppx * subq heparin FULL CODE Total time spent on discharge = 45 minutes This includes examination of the patient, discharge planning, medication reconciliation, and communication with other providers. Discharge Instructions Please follow-up with Dr. Quevedo on September 03 @ 1:50PM * You will be discharged on prednisone * Please take 15mg (three tablets) from 08/30-09/03 * Please take 10mg (two tablets) from 09/04-09/08 * Please take 5mg (one tablet) from 09/09-09/13 * Please take 2.5mg (half tablet) from 09/14-09/18 * Please stop taking Lasix * You will now be prescribed Bumex - take this daily * You will be prescribed Levaquin (antibiotic) - take every other day (two pills ) * Primary care should recheck CXR within a week to follow-up on pleural effusion (fluid in the lungs) * Please follow-up with cardiology
[2016-08-29 17:10] VITALS: BP 143/58; PULSE 75; TEMP 37; O2SAT 95
[2017-02-03] MEDS ORDERED: ESCI1TAB6 PO (16:45)
[2017-02-03] MEDS ORDERED: CPR500 PO (16:45)
== END 2016-08-29 18:01 | disposition home health service (06) | DRG 193 ==
LOC: ENRESERVTM → ENRESERVDT → EDBD 13:18 → C.EDA 13:19 → C.2T 17:29
PROVIDERS: ADMIT Emergency Medicine; ATTEND Family Medicine
PROC: 0B9P3ZX Drainage of Left Pleura, Percutaneous Approach, Diagnostic (ICD-10-PCS; principal; 2016-08-26)
DX: J18.9 Pneumonia, unspecified organism (principal); J96.00 Acute respiratory failure, unspecified whether with hypoxia or hypercapnia; N17.0 Acute kidney failure with tubular necrosis; J90 Pleural effusion, not elsewhere classified; I31.3 Pericardial effusion (noninflammatory); N18.4 Chronic kidney disease, stage 4 (severe); N39.0 Urinary tract infection, site not specified; E22.2 Syndrome of inappropriate secretion of antidiuretic hormone; I48.92 Unspecified atrial flutter; J44.0 Chronic obstructive pulmonary disease with (acute) lower respiratory infection; I12.9 Hypertensive chronic kidney disease with stage 1 through stage 4 chronic kidney disease, or unspecified chronic kidney disease; E87.5 Hyperkalemia; D63.1 Anemia in chronic kidney disease; I71.2 Thoracic aortic aneurysm, without rupture; E03.9 Hypothyroidism, unspecified; K21.9 Gastro-esophageal reflux disease without esophagitis; F41.9 Anxiety disorder, unspecified; E78.5 Hyperlipidemia, unspecified; I48.0 Paroxysmal atrial fibrillation; Z66 Do not resuscitate

== ENCOUNTER 2016-10-07 22:44 | Emergency (ER) | payer OTHER ==
[~2016-10-07 22:44] MED LIST changes: +BMX1 PO; +CLC100 PO; -FURO-85 PO; +LEVO-459 PO; +LPR25 PO; +PRD5 PO; +ZNT150 PO
[2016-10-07 22:47] VITALS: TEMP 36.7; Ht 121.9 cm
[2016-10-07] MEDS ORDERED: SODIUM CHLORIDE 0.9% 250ML 250 ML IV STA (23:18)
--- NOTE | 2016-10-07 23:24 | EMERGENCY ROOM VISIT NOTE ---
History Report prepared by Unique: Jung Chavarria Under the Supervision of: Dr. Oziel Yang M.D. First contact with patient: 23:14 Chief Complaint: URINARY SYMPTOMS Stated Complaint: TROUBLE URINATING History of Present Illness The patient is a 86 year old female who presents to the Emergency Room with complaints of persistent urinary symptoms beginning yesterday. She notes she has had difficulty urinating and notes that she occasionally experiences burning upon urination. She notes having chills off and on. The patient denies having increased frequency of urination. The patient is currently on fluid restrictions. She admits to having a history of UTI. She is not currently on any antibiotics. Source of History: patient Onset: yesterday Position: abdomen Quality: burning (occasionally during urination), other (urinary symptoms) Timing: other (persistent) Associated Symptoms: + chills Review of Systems See HPI for pertinent positives & negatives. A total of 10 systems reviewed and were otherwise negative. Past Medical & Surgical Medical Problems: (1) Anemia, chronic disease (2) Anxiety (3) CKD (chronic kidney disease), stage IV (4) GERD (gastroesophageal reflux disease) (5) H/O echocardiogram (6) HLD (hyperlipidemia) (7) HTN (hypertension) (8) Hypothyroidism (9) Palpitations (10) SIADH (syndrome of inappropriate ADH production) Surgical Problems: (1) Hx of appendectomy (2) Hx of cholecystectomy (3) Hx of dilation and curettage (4) Status post total hip replacement, left Family History FHx: heart disease Hypertension Social History Smoking Status: Never Smoker Alcohol Use: none Drug Use: none Marital Status: Housing Status: lives with family Occupation Status: retired Current/Historical Medications Scheduled Aspirin (Aspirin Ec), 81 MG PO DAILY Atorvastatin (Lipitor), 10 MG PO DAILY Bumetanide (Bumetanide), 0.5 MG PO QAM Docusate Sodium (Docusate Sodium), 100 MG PO BID Epoetin Rafael (Procrit), 10,000 UNITS SC q 3 weeks Ferrous Sulfate (Ferrous Sulfate), 325 MG PO BID Levothyroxine Sodium (Levothyroxine Sodium), 75 MCG PO DAILY Magnesium Oxide (Mag-Ox), 400 MG PO DAILY Metoprolol Tartrate (Lopressor), 12.5 MG PO BID Mirtazapine (Remeron), 7.5 MG PO HS Nifedipine (Nifedipine Er), 30 MG PO DAILY Pantoprazole (Protonix), 40 MG PO DAILY Ranitidine HCl (Ranitidine HCl), 150 MG PO QAM Scheduled PRN Lorazepam (Ativan), 1 MG PO TID PRN for Anxiety Allergies Coded Allergies: Penicillins (Verified Allergy, Intermediate, HIVES, 10/07/16) Iron Sucrose (Unverified Adverse Reaction, Mild, n&v, abd pain, 10/07/16) Physical Exam Vital Signs Date Time Temp Pulse Resp B/P Pulse Ox O2 Delivery O2 Flow Rate FiO2 10/07/16 22:47 36.7 68 20 170/57 97 Room Air Physical Exam GENERAL: Patient is in no acute distress. HEENT: No acute trauma, normocephalic atraumatic, mucous membranes dry, no nasal congestion, no scleral icterus. NECK: No stridor, no adenopathy, no meningismus, trachea is midline. LUNGS: Clear to auscultation bilaterally, no wheeze, no rhonchi, breath sounds equal. HEART: 2/6 diastolic murmur with regular rate and rhythm. ABDOMEN: Soft, nontender, bowel sounds positive, no hernias, no peritonitis. EXTREMITIES: No cyanosis or edema, full range of motion of all the joints without pain or difficulty, no signs for acute trauma. NEUROLOGIC: Oriented x 3, no acute motor or sensory deficits, no focal weakness. SKIN: No rash, no jaundice, no diaphoresis. Medical Decision & Procedures ER Provider Diagnostic Interpretation: Bladder scan revealed 130 mL and no significant retention. Laboratory Results 10/07/16 23:30 Red Blood Count 3.06, Mean Corpuscular Volume 96.4, Mean Corpuscular Hemoglobin 31.7, Mean Corpuscular Hemoglobin Concent 32.9, Mean Platelet Volume 9.2, Neutrophils (%) (Auto) 44.3, Lymphocytes (%) (Auto) 45.5, Monocytes (%) (Auto) 8.3, Eosinophils (%) (Auto) 1.1, Basophils (%) (Auto) 0.6, Neutrophils # (Auto) 2.35, Lymphocytes # (Auto) 2.41, Monocytes # (Auto) 0.44, Eosinophils # (Auto) 0.06, Basophils # (Auto) 0.03 10/07/16 23:30 Test 10/07/16 23:30 10/07/16 23:42 White Blood Count 5.30 K/uL (4.8-10.8) Red Blood Count 3.06 M/uL (4.2-5.4) Hemoglobin 9.7 g/dL (12.0-16.0) Hematocrit 29.5 % (37-47) Mean Corpuscular Volume 96.4 fL (80-100) Mean Corpuscular Hemoglobin 31.7 pg (25-34) Mean Corpuscular Hemoglobin Concent 32.9 g/dl (32-36) Platelet Count 216 K/uL (130-400) Mean Platelet Volume 9.2 fL (7.4-10.4) Neutrophils (%) (Auto) 44.3 % Lymphocytes (%) (Auto) 45.5 % Monocytes (%) (Auto) 8.3 % Eosinophils (%) (Auto) 1.1 % Basophils (%) (Auto) 0.6 % Neutrophils # (Auto) 2.35 K/uL (1.4-6.5) Lymphocytes # (Auto) 2.41 K/uL (1.2-3.4) Monocytes # (Auto) 0.44 K/uL (0.11-0.59) Eosinophils # (Auto) 0.06 K/uL (0-0.5) Basophils # (Auto) 0.03 K/uL (0-0.2) RDW Standard Deviation 52.5 fL (36.4-46.3) RDW Coefficient of Variation 14.9 % (11.5-14.5) Immature Granulocyte % (Auto) 0.2 % Immature Granulocyte # (Auto) 0.01 K/uL (0.00-0.02) Anion Gap 7.0 mmol/L (3-11) Estimated GFR () 25.6 Estimated GFR (Non- 22.0 BUN/Creatinine Ratio 19.2 (10-20) Calcium Level 9.2 mg/dl (8.5-10.1) Total Bilirubin 0.2 mg/dl (0.2-1) Aspartate Amino Transf (AST/SGOT) 16 U/L (15-37) Alanine Aminotransferase (ALT/SGPT) 18 U/L (12-78) Alkaline Phosphatase 132 U/L (45-117) Total Protein 7.4 gm/dl (6.4-8.2) Albumin 3.4 gm/dl (3.4-5.0) Globulin 4.0 gm/dl (2.5-4.0) Albumin/Globulin Ratio 0.9 (0.9-2) Urine Color YELLOW Urine Appearance CLEAR (CLEAR) Urine pH 8.0 (4.5-7.5) Urine Specific [place] 1.002 (1.000-1.030) Urine Protein NEG (NEG) Urine Glucose (UA) NEG (NEG) Urine Ketones NEG (NEG) Urine Occult Blood NEG (NEG) Urine Nitrite NEG (NEG) Urine Bilirubin NEG (NEG) Urine Urobilinogen NEG (NEG) Urine Leukocyte Esterase NEG (NEG) Laboratory results reviewed by me. Medications Administered Medications (Trade) Dose Ordered Sig/Jasis Route Start Time Stop Time Status Last Admin Dose Admin Sodium Chloride 250 ml @ 999 mls/hr Q16M STAT IV 10/07/16 23:18 10/07/16 23:33 DC 10/07/16 23:50 999 MLS/HR Sodium Chloride 500 ml @ 999 mls/hr Q31M STAT IV 10/08/16 00:15 10/08/16 00:45 DC 10/08/16 00:44 999 MLS/HR Sodium Chloride (Nss 250ml) 250 ml @ 999 mls/hr Q16M STAT IV 10/08/16 00:37 10/08/16 00:52 10/08/16 00:44 999 MLS/HR ED Course 2315: The patient was evaluated in room A2. A complete history and physical exam was performed. 2318: Ordered NSS 250 ml @ 999 mls/hr IV. 0015: Ordered NSS 500 ml @ 999 mls/hr IV. 0035: I updated the patient and her daughter. 0037: Ordered NSS 250 ml @ 999 mls/hr IV. 0045: Reevaluated the patient. Discussed results and discharge instructions: She verbalized understanding and agreement. The patient is ready for discharge. Medical Decision Differentials include renal failure, UTI, urinary retention, electrolyte imbalance, and dehydration. There is no leukocytosis. The patient is anemic but this is baseline looking back at her previous testing. There is some renal insufficiency but this also appears baseline, sodium slightly low but not critical. Urinalysis does not show infection. Bladder scan shows only mild urinary retention. On exam, the patient did not have bladder distention, she was not toxic or febrile. The patient appears dehydrated. I think she is not making as much urine because of the dehydration. She is on a fluid restriction at home. Patient is to receive 1 L of IV saline for hydration. She then is going to be discharged. She will increase her fluid intake for the next 3 days by one cup. She will see her doctor on Thursday for a recheck of her renal function and status. If worsening, she can return. Impression Primary Impression: Symptoms involving urinary system Additional Impressions: Urinary retention Dehydration Scribe Attestation The scribe's documentation has been prepared under my direction and personally reviewed by me in its entirety. I confirm that the note above accurately reflects all work, treatment, procedures, and medical decision making performed by me. Departure Information Dispostion Home / Self-Care Referrals Yogesh Quevedo III, M.D. (PCP) Patient Instructions My [facility] Additional Instructions increase fluids intake by 1 glass for 3 days see your doctor thursday for recheck of the kidneys return for fever, vomiting or worsening symptoms kidney testing and urine testing were baseline today you were dehydrated Problem Qualifiers
[2016-10-07] MEDS ORDERED: ATOR10TA88 PO (23:25)
[2016-10-07] MEDS ORDERED: EPGI10M SC (23:28)
[2016-10-07 23:41] LABS: BASO % 0.6 %; BASO ABS # 0.03 K/uL (0-0.2); COMPLETE YES; EOS % 1.1 %; HEMATOCRIT 29.5 % (37-47); IG% 0.2 %; LYMPH % 45.5 %; LYMPH ABS # 2.41 K/uL (1.2-3.4); MEAN CELL VOLUME 96.4 fL (80-100); MEAN CORPUSCULAR HEMOGLOBIN 31.7 pg (25-34); MEAN CORPUSCULAR HGB CONC 32.9 g/dl (32-36); MEAN PLATELET VOLUME 9.2 fL (7.4-10.4); MONO % 8.3 %; NEUT % 44.3 %; PLATELET COUNT 216 K/uL (130-400); RED BLOOD COUNT 3.06 M/uL (4.2-5.4)
[2016-10-07 23:55] LABS: URINE APPEARANCE CLEAR (CLEAR); URINE BILIRUBIN NEG (NEG); URINE COLOR YELLOW; URINE NITRITE NEG (NEG); URINE SPECIFIC GRAVITY 1.002 (1.000-1.030); UROBILINOGEN NEG (NEG); ZZURINE CULT IF INDIC CATH NO
[2016-10-07 23:57] LABS: MANUAL MICROSCOPIC REQUIRED? NO; REVIEW REQ? NO
[2016-10-08] LABS: ALT/SGPT 18 U/L (12-78); BLOOD UREA NITROGEN 38 mg/dl (7-18); BUN/CREATININE RATIO 19.2 (10-20); CALCIUM 9.2 mg/dl (8.5-10.1); CARBON DIOXIDE 29 mmol/L (21-32); CHLORIDE 94 mmol/L (98-107); GLUCOSE 85 mg/dl (70-99); POTASSIUM 4.4 mmol/L (3.5-5.1); SODIUM 130 mmol/L (136-145)
[2016-10-08 00:03] LABS: ALB/GLOB RATIO 0.9 (0.9-2); ALKALINE PHOSPHATASE 132 U/L (45-117); AST/SGOT 16 U/L (15-37)
[2016-10-08] MEDS ORDERED: SODIUM CHLORIDE 0.9% 500ML 500 ML IV STA (00:15)
[2016-10-08] MEDS ORDERED: SODIUM CHLORIDE 0.9% 250ML 250 ML IV STA (00:37)
[2016-10-08 01:11] VITALS: BP 171/47; PULSE 61; O2SAT 99
[2017-02-03] MEDS ORDERED: ESCI1TAB6 PO (16:45)
[2017-02-03] MEDS ORDERED: CPR500 PO (16:45)
== END 2016-10-08 01:17 | disposition home or self-care (01) ==
LOC: C.EDB 22:45 → C.EDA 10-08 01:17
DX: R39.9 Unspecified symptoms and signs involving the genitourinary system (principal); R33.9 Retention of urine, unspecified; E86.0 Dehydration; D64.9 Anemia, unspecified; F41.9 Anxiety disorder, unspecified; N18.4 Chronic kidney disease, stage 4 (severe); K21.9 Gastro-esophageal reflux disease without esophagitis; E78.5 Hyperlipidemia, unspecified; E03.9 Hypothyroidism, unspecified; E22.2 Syndrome of inappropriate secretion of antidiuretic hormone; Z82.49 Family history of ischemic heart disease and other diseases of the circulatory system; Z79.82 Long term (current) use of aspirin

== ENCOUNTER 2016-10-11 08:30 | Emergency (ER) | payer OTHER ==
[~2016-10-11 08:30] MED LIST changes: -ATOR-14 PO; +ATOR10TA88 PO; -LEVO-459 PO; -PRD5 PO
[2016-10-11 08:38] VITALS: TEMP 36.5
[2016-10-11 09:12] LABS: BASO % 0.8 %; BASO ABS # 0.04 K/uL (0-0.2); COMPLETE YES; EOS % 2.3 %; HEMATOCRIT 30.3 % (37-47); IG% 0.2 %; LYMPH % 37.9 %; LYMPH ABS # 1.79 K/uL (1.2-3.4); MEAN CELL VOLUME 95.3 fL (80-100); MEAN CORPUSCULAR HEMOGLOBIN 32.1 pg (25-34); MEAN CORPUSCULAR HGB CONC 33.7 g/dl (32-36); MEAN PLATELET VOLUME 9.6 fL (7.4-10.4); MONO % 9.7 %; NEUT % 49.1 %; PLATELET COUNT 220 K/uL (130-400); RED BLOOD COUNT 3.18 M/uL (4.2-5.4); WHITE BLOOD COUNT 4.72 K/uL (4.8-10.8)
[2016-10-11 09:28] LABS: BLOOD UREA NITROGEN 35 mg/dl (7-18); BUN/CREATININE RATIO 18.2 (10-20); CALCIUM 9.3 mg/dl (8.5-10.1); CARBON DIOXIDE 26 mmol/L (21-32); CHLORIDE 98 mmol/L (98-107); GLUCOSE 90 mg/dl (70-99); SODIUM 133 mmol/L (136-145)
[2016-10-11 09:33] LABS: CKMB/CK RATIO 2.6 (0-3.0)
--- NOTE | 2016-10-11 09:36 | EMERGENCY ROOM VISIT NOTE ---
ED Visit Note First contact with patient: 08:38 I have seen and examined this patient with Herber Gerber and generally agree with the treatment plan as discussed. Problem List Medical Problems: (1) Anemia, chronic disease Status: Chronic (2) Anxiety Status: Chronic (3) CKD (chronic kidney disease), stage IV Status: Chronic (4) GERD (gastroesophageal reflux disease) Status: Chronic (5) H/O echocardiogram Permanent Comment: 03/2015 - EF 60-65%, moderate to severe aortic regurgitation Status: Chronic (6) HLD (hyperlipidemia) Status: Chronic (7) HTN (hypertension) Status: Chronic (8) Hypothyroidism Status: Chronic (9) Palpitations Status: Chronic (10) SIADH (syndrome of inappropriate ADH production) Status: Chronic Surgical Problems: (1) Hx of appendectomy Status: Chronic (2) Hx of cholecystectomy Status: Chronic (3) Hx of dilation and curettage Status: Chronic (4) Status post total hip replacement, left Status: Chronic Current/Historical Medications Scheduled Aspirin (Aspirin Ec), 81 MG PO DAILY Atorvastatin (Lipitor), 10 MG PO DAILY Bumetanide (Bumetanide), 0.5 MG PO QAM Docusate Sodium (Docusate Sodium), 100 MG PO BID Epoetin Rafael (Procrit), 10,000 UNITS SC q 3 weeks Ferrous Sulfate (Ferrous Sulfate), 325 MG PO BID Levothyroxine Sodium (Levothyroxine Sodium), 75 MCG PO DAILY Magnesium Oxide (Mag-Ox), 400 MG PO DAILY Metoprolol Tartrate (Lopressor), 12.5 MG PO BID Mirtazapine (Remeron), 7.5 MG PO HS Nifedipine (Nifedipine Er), 30 MG PO DAILY Pantoprazole (Protonix), 40 MG PO DAILY Ranitidine HCl (Ranitidine HCl), 150 MG PO QAM Scheduled PRN Lorazepam (Ativan), 1 MG PO BID PRN for Anxiety Allergies Coded Allergies: Penicillins (Verified Allergy, Intermediate, HIVES, 10/11/16) Iron Sucrose (Unverified Adverse Reaction, Mild, n&v, abd pain, 10/11/16) Vital Signs Date Time Temp Pulse Resp B/P Pulse Ox O2 Delivery O2 Flow Rate FiO2 10/11/16 08:38 36.5 68 20 141/48 98 Room Air Laboratory Results 10/11/16 09:00 Red Blood Count 3.18, Mean Corpuscular Volume 95.3, Mean Corpuscular Hemoglobin 32.1, Mean Corpuscular Hemoglobin Concent 33.7, Mean Platelet Volume 9.6, Neutrophils (%) (Auto) 49.1, Lymphocytes (%) (Auto) 37.9, Monocytes (%) (Auto) 9.7, Eosinophils (%) (Auto) 2.3, Basophils (%) (Auto) 0.8, Neutrophils # (Auto) 2.31, Lymphocytes # (Auto) 1.79, Monocytes # (Auto) 0.46, Eosinophils # (Auto) 0.11, Basophils # (Auto) 0.04 10/11/16 09:00 Test 10/11/16 09:00 White Blood Count 4.72 K/uL (4.8-10.8) Red Blood Count 3.18 M/uL (4.2-5.4) Hemoglobin 10.2 g/dL (12.0-16.0) Hematocrit 30.3 % (37-47) Mean Corpuscular Volume 95.3 fL (80-100) Mean Corpuscular Hemoglobin 32.1 pg (25-34) Mean Corpuscular Hemoglobin Concent 33.7 g/dl (32-36) Platelet Count 220 K/uL (130-400) Mean Platelet Volume 9.6 fL (7.4-10.4) Neutrophils (%) (Auto) 49.1 % Lymphocytes (%) (Auto) 37.9 % Monocytes (%) (Auto) 9.7 % Eosinophils (%) (Auto) 2.3 % Basophils (%) (Auto) 0.8 % Neutrophils # (Auto) 2.31 K/uL (1.4-6.5) Lymphocytes # (Auto) 1.79 K/uL (1.2-3.4) Monocytes # (Auto) 0.46 K/uL (0.11-0.59) Eosinophils # (Auto) 0.11 K/uL (0-0.5) Basophils # (Auto) 0.04 K/uL (0-0.2) RDW Standard Deviation 51.6 fL (36.4-46.3) RDW Coefficient of Variation 14.8 % (11.5-14.5) Immature Granulocyte % (Auto) 0.2 % Immature Granulocyte # (Auto) 0.01 K/uL (0.00-0.02) Anion Gap 9.0 mmol/L (3-11) Estimated GFR () 27.2 Estimated GFR (Non- 23.5 BUN/Creatinine Ratio 18.2 (10-20) Calcium Level 9.3 mg/dl (8.5-10.1) Total Creatine Kinase 47 U/L (26-192) Creatine Kinase MB 1.2 ng/ml (0.5-3.6) Creatine Kinase MB Ratio 2.6 (0-3.0) Troponin I < 0.015 ng/ml (0-0.045) Departure Information Referrals Yogesh Quevedo III, M.D. (PCP) Patient Instructions My [facility]
[2016-10-11 09:57] LABS: URINE APPEARANCE CLEAR (CLEAR); URINE BILIRUBIN NEG (NEG); URINE COLOR YELLOW; URINE NITRITE NEG (NEG); URINE PH 6.5 (4.5-7.5); UROBILINOGEN NEG (NEG)
[2016-10-11 09:58] LABS: MANUAL MICROSCOPIC REQUIRED? NO; REVIEW REQ? NO
[2016-10-11 10:16] VITALS: BP 173/48; PULSE 57; O2SAT 96
--- NOTE | 2016-10-14 17:49 | EMERGENCY ROOM VISIT NOTE ---
History First contact with patient: 08:38 Chief Complaint: CARDIAC ASSESSMENT Stated Complaint: WEAKNESS IN LEGS, PALPITATIONS Nursing Triage Summary: Pt c/o palpitations, generalized weakness "It could be sodium loss or potassium loss. I was here a couple days ago and my sodium was low" History of Present Illness The patient is a 86 year old white female who presents to the Emergency Room with complaints of generalized weakness and feeling palpitations in her chest this morning. She states she was recently admitted to the hospital and was found to have low sodium and low potassium. She is concerned that they may be low again. She is on fluid restrictions and only drinks a specific amount of water per day. She denies any chest pain, shortness of breath, nausea, vomiting , diarrhea, or abdominal pain. No fevers, chills, or sweats. She is not sure what caused the palpitations this morning. She was sitting when they occurred. She had some discomfort in the back of her head before arrival, but it has resolved. Her daughter accompanies her today. Pain is 2/10. Review of Systems REVIEW OF SYSTEM: HEENT: No dizziness, visual problems, hearing loss, or tinnitus. There is no difficulty swallowing and no oral lesions are present. PULMONARY: No cough, sputum production or hemoptysis. CARDIOVASCULAR: No chest pain or peripheral edema. GASTROINTESTINAL: No diarrhea, constipation, nausea, vomiting, or abdominal pain. GENITOURINARY: No dysuria, frequency, urgency or nocturia. NEUROLOGIC: No muscle tenderness, epilepsy or history of neurological problems. MUSCULOSKELETAL: No history of joint tenderness/swelling. Positive history of arthritis and arthralgias. SKIN: No rashes or lesions. PSYCHIATRIC: Positive history of anxiety. ENDOCRINE: No history of diabetes or abnormal hair growth. Past Medical/Surgical History Medical Problems: (1) Anemia, chronic disease (2) Anxiety (3) CKD (chronic kidney disease), stage IV (4) GERD (gastroesophageal reflux disease) (5) H/O echocardiogram (6) HLD (hyperlipidemia) (7) HTN (hypertension) (8) Hypothyroidism (9) Palpitations (10) SIADH (syndrome of inappropriate ADH production) Surgical Problems: (1) Hx of appendectomy (2) Hx of cholecystectomy (3) Hx of dilation and curettage (4) Status post total hip replacement, left Family History FHx: heart disease Hypertension Social History Smoking Status: Never Smoker Smokeless Tobacco Use: No Alcohol Use: none Drug Use: none Marital Status: Housing Status: lives with family Occupation Status: retired Current/Historical Medications Scheduled Aspirin (Aspirin Ec), 81 MG PO DAILY Atorvastatin (Lipitor), 10 MG PO DAILY Bumetanide (Bumetanide), 0.5 MG PO QAM Docusate Sodium (Docusate Sodium), 100 MG PO BID Epoetin Rafael (Procrit), 10,000 UNITS SC q 3 weeks Ferrous Sulfate (Ferrous Sulfate), 325 MG PO BID Levothyroxine Sodium (Levothyroxine Sodium), 75 MCG PO DAILY Magnesium Oxide (Mag-Ox), 400 MG PO DAILY Metoprolol Tartrate (Lopressor), 12.5 MG PO BID Mirtazapine (Remeron), 7.5 MG PO HS Nifedipine (Nifedipine Er), 30 MG PO DAILY Pantoprazole (Protonix), 40 MG PO DAILY Ranitidine HCl (Ranitidine HCl), 150 MG PO QAM Scheduled PRN Lorazepam (Ativan), 1 MG PO BID PRN for Anxiety Allergies Coded Allergies: Penicillins (Verified Allergy, Intermediate, HIVES, 10/11/16) Iron Sucrose (Unverified Adverse Reaction, Mild, n&v, abd pain, 10/11/16) Physical Exam Vital Signs Date Time Temp Pulse Resp B/P Pulse Ox O2 Delivery O2 Flow Rate FiO2 10/11/16 10:16 57 18 173/48 96 Room Air 10/11/16 09:42 56 10/11/16 08:38 36.5 68 20 141/48 98 Room Air Pain Rating (0-10): 0 Physical Exam Gen.: Frail, elderly white female, in no acute distress. Sitting on a bed. Alert and oriented. Mildly anxious. Skin: Warm and dry with fair turgor. No rashes or lesions. No ecchymosis or erythema. The patient is not diaphoretic. No abrasions. HEENT: Normocephalic atraumatic. Eyes PERRLA, EOMI. No conjunctiva or scleral injection. Ears TMs intact bilaterally with good light reflexes. No erythema or bulging. No hemotympanum. Canals are patent. Nares patent bilaterally without turbinate enlargement. No significant drainage. No epistaxis. Oropharynx without erythema or exudate. Uvula midline, oral mucosa mildly dry. Poor dentition. No lesions present. Heart: Heart RRR with intermittent PVCs. 2/6 diastolic murmur noted. No GR. Peripheral pulses are 2+. Lungs: Lungs are clear to auscultation. No crackles rhonchi or wheezing. Good air movement. The patient is able to take a deep breath. Abdomen: Abdomen was inspected, auscultated, and palpated. Bowel sounds present x 4. Soft, nontender to palpation. No hepato-splenomegaly. No masses noted. No rebound. Musculoskeletal: Gross motor function of the upper and lower extremities is intact and unremarkable. Neurologic: Gross sensation is intact across the upper and lower extremities by soft touch. Peripheral pulses are 2+. Medical Decision & Procedures ER Provider Diagnostic Interpretation: EKG obtained today shows a sinus rhythm with first-degree AV block. Frequent PVCs. Rate of 64. Left ventricular hypertrophy. This was reviewed with Dr. Gaitan. Laboratory Results 10/11/16 09:00 Red Blood Count 3.18, Mean Corpuscular Volume 95.3, Mean Corpuscular Hemoglobin 32.1, Mean Corpuscular Hemoglobin Concent 33.7, Mean Platelet Volume 9.6, Neutrophils (%) (Auto) 49.1, Lymphocytes (%) (Auto) 37.9, Monocytes (%) (Auto) 9.7, Eosinophils (%) (Auto) 2.3, Basophils (%) (Auto) 0.8, Neutrophils # (Auto) 2.31, Lymphocytes # (Auto) 1.79, Monocytes # (Auto) 0.46, Eosinophils # (Auto) 0.11, Basophils # (Auto) 0.04 10/11/16 09:00 Test 10/11/16 09:00 10/11/16 09:30 White Blood Count 4.72 K/uL (4.8-10.8) Red Blood Count 3.18 M/uL (4.2-5.4) Hemoglobin 10.2 g/dL (12.0-16.0) Hematocrit 30.3 % (37-47) Mean Corpuscular Volume 95.3 fL (80-100) Mean Corpuscular Hemoglobin 32.1 pg (25-34) Mean Corpuscular Hemoglobin Concent 33.7 g/dl (32-36) Platelet Count 220 K/uL (130-400) Mean Platelet Volume 9.6 fL (7.4-10.4) Neutrophils (%) (Auto) 49.1 % Lymphocytes (%) (Auto) 37.9 % Monocytes (%) (Auto) 9.7 % Eosinophils (%) (Auto) 2.3 % Basophils (%) (Auto) 0.8 % Neutrophils # (Auto) 2.31 K/uL (1.4-6.5) Lymphocytes # (Auto) 1.79 K/uL (1.2-3.4) Monocytes # (Auto) 0.46 K/uL (0.11-0.59) Eosinophils # (Auto) 0.11 K/uL (0-0.5) Basophils # (Auto) 0.04 K/uL (0-0.2) RDW Standard Deviation 51.6 fL (36.4-46.3) RDW Coefficient of Variation 14.8 % (11.5-14.5) Immature Granulocyte % (Auto) 0.2 % Immature Granulocyte # (Auto) 0.01 K/uL (0.00-0.02) Anion Gap 9.0 mmol/L (3-11) Estimated GFR () 27.2 Estimated GFR (Non- 23.5 BUN/Creatinine Ratio 18.2 (10-20) Calcium Level 9.3 mg/dl (8.5-10.1) Total Creatine Kinase 47 U/L (26-192) Creatine Kinase MB 1.2 ng/ml (0.5-3.6) Creatine Kinase MB Ratio 2.6 (0-3.0) Troponin I < 0.015 ng/ml (0-0.045) Urine Color YELLOW Urine Appearance CLEAR (CLEAR) Urine pH 6.5 (4.5-7.5) Urine Specific [place] 1.000 (1.000-1.030) Urine Protein NEG (NEG) Urine Glucose (UA) NEG (NEG) Urine Ketones NEG (NEG) Urine Occult Blood NEG (NEG) Urine Nitrite NEG (NEG) Urine Bilirubin NEG (NEG) Urine Urobilinogen NEG (NEG) Urine Leukocyte Esterase SMALL (NEG) Urine WBC (Auto) 1-5 /hpf (0-5) Urine RBC (Auto) 0-4 /hpf (0-4) Urine Hyaline Casts (Auto) 0 /lpf (0-5) Urine Epithelial Cells (Auto) 5-10 /lpf (0-5) Urine Bacteria (Auto) NEG (NEG) CBC, chem panel, cardiac enzymes, and UA were obtained. Mildly anemic with an H &H of 10.2 and 30.3. UA is unremarkable. Small leukocyte esterase but no indication of infection. Sodium is 133 with potassium 4.0. BUN 35 creatinine 1.9. These are consistent with her baseline. Cardiac enzymes are unremarkable. ED Course Patient was educated regarding today's findings. Conservative care measures were discussed. IV was established. Labs were obtained. EKG was also obtained. Patient was placed on a monitor. She remained stable while in the ED. She was reassured that her sodium is fine. I find no evidence for acute cardiac issue. I do think she is anxious and this may exacerbate her palpitations. Follow-up with her psychiatrist to discuss medication changes. She verbalizes that her anxiety is increasing and that she does not think the medications are helping her as much as they used to. Return to the ED for any acute changes. She should continue to limit her fluid intake. I do not think she requires admission with a sodium of 133. Patient was seen in conjunction with Dr. Gaitan, who also evaluated the patient and concurred with today's diagnosis and treatment plan. Medical Decision Possibility of acute [place], ACS, arrhythmia, dehydration, electrolyte abnormality, significant anemia, infection, and anxiety were considered among others. Impression Primary Impression: Anxiety Additional Impression: Palpitations Departure Information Dispostion Home / Self-Care Condition GOOD Referrals Yogesh Quevedo III, M.D. (PCP) Forms IMPORTANT VISIT INFORMATION Patient Instructions My [facility] Additional Instructions see Dr. Quevedo on as scheduled Follow-up with your psychiatrist to discuss medication changes Return to the ED for any acute changes Continue to limit your fluid intake Problem Qualifiers
[2017-02-03] MEDS ORDERED: CPR500 PO (16:45)
[2017-02-03] MEDS ORDERED: ESCI1TAB6 PO (16:45)
== END 2016-10-11 10:39 | disposition home or self-care (01) ==
LOC: C.EDB 08:34
DX: F41.9 Anxiety disorder, unspecified (principal); R00.2 Palpitations; N18.4 Chronic kidney disease, stage 4 (severe); K21.9 Gastro-esophageal reflux disease without esophagitis; E78.5 Hyperlipidemia, unspecified; I12.9 Hypertensive chronic kidney disease with stage 1 through stage 4 chronic kidney disease, or unspecified chronic kidney disease; Z79.82 Long term (current) use of aspirin; Z79.899 Other long term (current) drug therapy

== ENCOUNTER 2016-11-09 08:40 | Emergency (ER) | payer OTHER ==
[~2016-11-09] VITALS: Ht 142.2 cm; Wt 52.9 kg
[~2016-11-09 08:40] MED LIST changes: +ATOR10TA82 PO; -ATOR10TA88 PO
[2016-11-09 08:48] VITALS: TEMP 36.5; Ht 142.2 cm; Wt 52.9 kg
--- NOTE | 2016-11-09 09:11 | EMERGENCY ROOM VISIT NOTE ---
History Report prepared by Tammyibmargy: Abram Mortensen Under the Supervision of: Dr. Elza Rausch M.D. First contact with patient: 08:59 Chief Complaint: ANXIETY Stated Complaint: HEART SKIPPING, LEGS WEAK, NUMBNESS IN LEGS History of Present Illness The patient is an 86 year old female who presents to the Emergency Room with complaints of persistent palpitations that started early this morning. The patient noticed the palpitations when she got up to go to the bathroom. The patient also notes that her legs were feeling weak. She denies any chest pain, nausea, vomiting, or abdominal pain. Her bowel movements have been normal. She notes that she recently had a kidney infection for which she finished her antibiotics. She no longer has urinary symptoms. The patient has had palpitations before. She notes that her potassium levels have been off in the past. The patient had a urine culture on October 20 that grew out citrobacter that is susceptible to Cipro. She was treated for three days with Cipro. She has a history of chronic renal insufficiency. Source of History: patient Onset: this morning Position: other (heart) Quality: other (palpitations) Timing: other (persistent) Associated Symptoms: No abdominal pain, No chest pain, No nausea, No urinary symptoms, No vomiting Review of Systems See HPI for pertinent positives & negatives. A total of 10 systems reviewed and were otherwise negative. Past Medical & Surgical Medical Problems: (1) Anemia, chronic disease (2) Anxiety (3) CKD (chronic kidney disease), stage IV (4) GERD (gastroesophageal reflux disease) (5) H/O echocardiogram (6) HLD (hyperlipidemia) (7) HTN (hypertension) (8) Hypothyroidism (9) Palpitations (10) SIADH (syndrome of inappropriate ADH production) Surgical Problems: (1) Hx of appendectomy (2) Hx of cholecystectomy (3) Hx of dilation and curettage (4) Status post total hip replacement, left Family History FHx: heart disease Hypertension Social History Smoking Status: Never Smoker Alcohol Use: none Drug Use: none Marital Status: Housing Status: lives with family Occupation Status: retired Current/Historical Medications Scheduled Aspirin (Aspirin Ec), 81 MG PO DAILY Atorvastatin (Lipitor), 10 MG PO DAILY Bumetanide (Bumetanide), 0.5 MG PO QAM Docusate Sodium (Docusate Sodium), 100 MG PO BID Epoetin Rafael (Procrit), 10,000 UNITS SC q 3 weeks Ferrous Sulfate (Ferrous Sulfate), 325 MG PO BID Levothyroxine Sodium (Levothyroxine Sodium), 75 MCG PO DAILY Magnesium Oxide (Mg Supplement (Magnesium Oxide), 1 TAB PO BID Metoprolol Tartrate (Lopressor), 12.5 MG PO BID Mirtazapine (Remeron), 7.5 MG PO HS Nifedipine (Nifedipine Er), 30 MG PO DAILY Pantoprazole (Protonix), 40 MG PO DAILY Ranitidine HCl (Ranitidine HCl), 150 MG PO QAM Scheduled PRN Lorazepam (Ativan), 1 MG PO BID PRN for Anxiety Allergies Coded Allergies: Penicillins (Verified Allergy, Intermediate, HIVES, 11/09/16) Iron Sucrose (Unverified Adverse Reaction, Mild, n&v, abd pain, 11/09/16) Physical Exam Vital Signs Date Time Temp Pulse Resp B/P Pulse Ox O2 Delivery O2 Flow Rate FiO2 11/09/16 12:03 74 18 147/52 96 Room Air 11/09/16 10:50 72 16 155/47 11/09/16 09:48 60 11/09/16 09:28 72 20 165/55 11/09/16 09:12 95 Room Air 11/09/16 08:48 36.5 84 18 151/55 97 Room Air Physical Exam Vital signs reviewed. General: Elderly well-appearing female, in no significant distress. HEENT: No scleral icterus, PERRLA, neck supple. Atraumatic. Cardiovascular: Regular rate and rhythm. Frequent ectopy on auscultation. Pulmonary: Clear to auscultation bilaterally, normal work of breathing. Abdomen: Soft, nontender, nondistended, positive bowel sounds. Musculoskeletal: Atraumatic, no peripheral edema. Neurologic: Patient awake alert and oriented x 3, full strength in all 4 extremities. Cranial nerves 2 through 12 grossly intact. Skin: Warm, dry, no rash Medical Decision & Procedures ER Provider Diagnostic Interpretation: X-ray results as stated below per interpretation by me and the radiologist: CHEST ONE VIEW PORTABLE CLINICAL HISTORY: Palpitations COMPARISON STUDY: 08/26/2016 FINDINGS: The heart is enlarged. There is been interval resolution of the previously identified bilateral pleural effusions and bibasilar airspace opacities. There is no focal pulmonary consolidation.[ IMPRESSION: Mild cardiomegaly. No acute findings. Electronically signed by: Mauro Sanchez M.D. 11/09/2016 9:21 AM Dictated Date/Time: 11/09/2016 9:20 AM Laboratory Results 11/09/16 09:30 Red Blood Count 3.34, Mean Corpuscular Volume 98.5, Mean Corpuscular Hemoglobin 33.5, Mean Corpuscular Hemoglobin Concent 34.0, Mean Platelet Volume 11.1, Neutrophils (%) (Auto) 54.8, Lymphocytes (%) (Auto) 34.7, Monocytes (%) (Auto) 5.5, Eosinophils (%) (Auto) 3.6, Basophils (%) (Auto) 0.8, Neutrophils # (Auto) 2.60, Lymphocytes # (Auto) 1.65, Monocytes # (Auto) 0.26, Eosinophils # (Auto) 0.17, Basophils # (Auto) 0.04 11/09/16 09:30 Test 11/09/16 09:25 11/09/16 09:30 11/09/16 09:42 Urine Color YELLOW Urine Appearance CLEAR (CLEAR) Urine pH 7.0 (4.5-7.5) Urine Specific [place] 1.006 (1.000-1.030) Urine Protein NEG (NEG) Urine Glucose (UA) NEG (NEG) Urine Ketones NEG (NEG) Urine Occult Blood NEG (NEG) Urine Nitrite NEG (NEG) Urine Bilirubin NEG (NEG) Urine Urobilinogen NEG (NEG) Urine Leukocyte Esterase SMALL (NEG) Urine WBC (Auto) 1-5 /hpf (0-5) Urine RBC (Auto) 0-4 /hpf (0-4) Urine Hyaline Casts (Auto) 0 /lpf (0-5) Urine Epithelial Cells (Auto) 0-5 /lpf (0-5) Urine Bacteria (Auto) NEG (NEG) White Blood Count 4.75 K/uL (4.8-10.8) Red Blood Count 3.34 M/uL (4.2-5.4) Hemoglobin 11.2 g/dL (12.0-16.0) Hematocrit 32.9 % (37-47) Mean Corpuscular Volume 98.5 fL (80-100) Mean Corpuscular Hemoglobin 33.5 pg (25-34) Mean Corpuscular Hemoglobin Concent 34.0 g/dl (32-36) Platelet Count 118 K/uL (130-400) Mean Platelet Volume 11.1 fL (7.4-10.4) Neutrophils (%) (Auto) 54.8 % Lymphocytes (%) (Auto) 34.7 % Monocytes (%) (Auto) 5.5 % Eosinophils (%) (Auto) 3.6 % Basophils (%) (Auto) 0.8 % Neutrophils # (Auto) 2.60 K/uL (1.4-6.5) Lymphocytes # (Auto) 1.65 K/uL (1.2-3.4) Monocytes # (Auto) 0.26 K/uL (0.11-0.59) Eosinophils # (Auto) 0.17 K/uL (0-0.5) Basophils # (Auto) 0.04 K/uL (0-0.2) RDW Standard Deviation 51.4 fL (36.4-46.3) RDW Coefficient of Variation 14.5 % (11.5-14.5) Immature Granulocyte % (Auto) 0.6 % Immature Granulocyte # (Auto) 0.03 K/uL (0.00-0.02) Nucleated RBC Absolute Count (auto) 0.03 K/uL (0-0) Nucleated Red Blood Cells % 0.7 % Anion Gap 7.0 mmol/L (3-11) Est Creatinine Clear Calc Drug Dose 14.4 ml/min Estimated GFR () 27.2 Estimated GFR (Non- 23.5 BUN/Creatinine Ratio 17.7 (10-20) Calcium Level 9.5 mg/dl (8.5-10.1) Magnesium Level 2.9 mg/dl (1.8-2.4) Total Bilirubin 0.3 mg/dl (0.2-1) Direct Bilirubin mg/dl (0-0.2) Aspartate Amino Transf (AST/SGOT) 27 U/L (15-37) Alanine Aminotransferase (ALT/SGPT) 25 U/L (12-78) Alkaline Phosphatase 119 U/L (45-117) Total Creatine Kinase 147 U/L (26-192) Creatine Kinase MB < 0.5 ng/ml (0.5-3.6) Creatine Kinase MB Ratio (0-3.0) Total Protein 8.7 gm/dl (6.4-8.2) Albumin 4.0 gm/dl (3.4-5.0) Bedside Troponin I 0.010 ng/ml (0-0.045) Laboratory results per my review. ECG Indication: palpitations Rate (beats per minute): 76 Rhythm: sinus rhythm Findings: 1st degree AV block, PVC, other (LVH with repolarization abnormality laterally, premature supraventricular complex) ED Course 0905: Past medical records reviewed. The patient was evaluated in room C3. A complete history and physical examination was performed. 1117: Checked on the patient. 1200: Reassessed the patient. Discussed the findings with her. She verbalized understanding. The patient is ready for discharge. Medical Decision Differential diagnosis: Etiologies such as premature contractions, electrolyte abnormality, cardiac dysrhythmia, thyroid dysfunction, pulmonary embolism, infection, gastrointestinal, as well as others were entertained. This patient was evaluated and appeared to be in no significant distress. IV access was obtained and laboratory work was drawn. Patient was placed on the cardiac care unit nurse and found to be in a first-degree AV block with frequent PVCs. Patient's laboratory work reveals a mildly elevated magnesium level. Cardiac enzymes are negative. Sodium and potassium are normal. The patient was gently hydrated with normal saline solution. UA was obtained and is normal. Previous urine culture was obtained and reveals Citrobacter that is susceptible to the Cipro that was prescribed and the patient has completed. The patient does have a baseline renal insufficiency that is stable. She was advised of the findings. The patient appears to be very anxious but was reassured. She was advised to take her magnesium once daily and hold her evening dose. She was discharged after eating a lunch tray to the care of her daughter. She will follow-up with her physician this week and return to the ER for worsening of symptoms or any medical concerns. Impression Primary Impression: Premature ventricular contractions Additional Impression: Palpitations Scribe Attestation The scribe's documentation has been prepared under my direction and personally reviewed by me in its entirety. I confirm that the note above accurately reflects all work, treatment, procedures, and medical decision making performed by me. Departure Information Dispostion Home / Self-Care Referrals Yogesh Quevedo III, M.D. (PCP) Forms IMPORTANT VISIT INFORMATION Patient Instructions My [facility] Additional Instructions Diagnosis: Premature ventricular contractions Please cut your magnesium to one tablet daily. Follow-up with your physician this week for reevaluation if symptoms continue. Return to the ER for worsening of symptoms or any medical concerns. Problem Qualifiers
--- NOTE | 2016-11-09 09:22 | DIAGNOSTIC IMAGING REPORT ---
CHEST ONE VIEW PORTABLE CLINICAL HISTORY: Palpitations COMPARISON STUDY: 08/26/2016 FINDINGS: The heart is enlarged. There is been interval resolution of the previously identified bilateral pleural effusions and bibasilar airspace opacities. There is no focal pulmonary consolidation.[ IMPRESSION: Mild cardiomegaly. No acute findings. Electronically signed by: Mauro Sanchez M.D. 11/09/2016 9:21 AM Dictated Date/Time: 11/09/2016 9:20 AM
[2016-11-09 09:40] LABS: BASO % 0.8 %; BASO ABS # 0.04 K/uL (0-0.2); COMPLETE YES; EOS % 3.6 %; HEMATOCRIT 32.9 % (37-47); IG% 0.6 %; LYMPH % 34.7 %; LYMPH ABS # 1.65 K/uL (1.2-3.4); MEAN CELL VOLUME 98.5 fL (80-100); MEAN CORPUSCULAR HEMOGLOBIN 33.5 pg (25-34); MEAN PLATELET VOLUME 11.1 fL (7.4-10.4); MONO % 5.5 %; NEUT % 54.8 %; PLATELET COUNT 118 K/uL (130-400); RED BLOOD COUNT 3.34 M/uL (4.2-5.4); WHITE BLOOD COUNT 4.75 K/uL (4.8-10.8)
[2016-11-09 09:43] LABS: URINE APPEARANCE CLEAR (CLEAR); URINE BILIRUBIN NEG (NEG); URINE COLOR YELLOW; URINE EPITHELIAL CELL AUTO 0-5 /lpf (0-5); URINE NITRITE NEG (NEG); URINE SPECIFIC GRAVITY 1.006 (1.000-1.030); UROBILINOGEN NEG (NEG); ZZUR CULT IF INDIC CLEAN CATCH NO
[2016-11-09 09:46] LABS: MANUAL MICROSCOPIC REQUIRED? NO; REVIEW REQ? NO
[2016-11-09] MEDS ORDERED: MAGN400T7 PO (10:04)
[2016-11-09 10:21] LABS: ALKALINE PHOSPHATASE 119 U/L (45-117); ALT/SGPT 25 U/L (12-78); AST/SGOT 27 U/L (15-37); BLOOD UREA NITROGEN 34 mg/dl (7-18); BUN/CREATININE RATIO 17.7 (10-20); CALCIUM 9.5 mg/dl (8.5-10.1); CARBON DIOXIDE 31 mmol/L (21-32); CHLORIDE 99 mmol/L (98-107); GLUCOSE 91 mg/dl (70-99); MAGNESIUM 2.9 mg/dl (1.8-2.4); SODIUM 137 mmol/L (136-145)
[2016-11-09 12:03] VITALS: BP 147/52; PULSE 74; O2SAT 96
[2017-02-03] MEDS ORDERED: CPR500 PO (16:45)
[2017-02-03] MEDS ORDERED: ESCI1TAB6 PO (16:45)
== END 2016-11-09 12:06 | disposition home or self-care (01) ==
LOC: C.EDB 08:42 → C.EDC 12:06
DX: I49.3 Ventricular premature depolarization (principal); R00.2 Palpitations; I44.0 Atrioventricular block, first degree; I12.9 Hypertensive chronic kidney disease with stage 1 through stage 4 chronic kidney disease, or unspecified chronic kidney disease; N18.4 Chronic kidney disease, stage 4 (severe); E78.5 Hyperlipidemia, unspecified; E03.9 Hypothyroidism, unspecified; K21.9 Gastro-esophageal reflux disease without esophagitis; F41.9 Anxiety disorder, unspecified; Z90.49 Acquired absence of other specified parts of digestive tract; Z98.890 Other specified postprocedural states; Z96.642 Presence of left artificial hip joint; Z79.82 Long term (current) use of aspirin; Z79.899 Other long term (current) drug therapy; Z88.0 Allergy status to penicillin; Z82.49 Family history of ischemic heart disease and other diseases of the circulatory system

== ENCOUNTER 2016-11-25 22:53 | Emergency (ER) | payer OTHER ==
[~2016-11-25] VITALS: Ht 144.8 cm; Wt 53.3 kg
[~2016-11-25 22:53] MED LIST changes: -MAGN400T6 PO; +MAGN400T7 PO
[2016-11-25 22:56] VITALS: TEMP 36.4; Ht 144.8 cm; Wt 53.3 kg
[2016-11-25 23:49] LABS: BASO % 0.2 %; BASO ABS # 0.01 K/uL (0-0.2); COMPLETE YES; EOS % 3.2 %; HEMATOCRIT 27.6 % (37-47); LYMPH ABS # 1.89 K/uL (1.2-3.4); MEAN CELL VOLUME 97.9 fL (80-100); MEAN CORPUSCULAR HGB CONC 33.7 g/dl (32-36); MEAN PLATELET VOLUME 9.9 fL (7.4-10.4); MONO % 7.4 %; NEUT % 49.2 %; PLATELET COUNT 140 K/uL (130-400); RED BLOOD COUNT 2.82 M/uL (4.2-5.4); WHITE BLOOD COUNT 4.72 K/uL (4.8-10.8)
[2016-11-26 00:14] LABS: BUN/CREATININE RATIO 20.6 (10-20); CALCIUM 9.1 mg/dl (8.5-10.1)
[2016-11-26 00:17] LABS: ALB/GLOB RATIO 1.1 (0.9-2)
[2016-11-26] MEDS ORDERED: SODIUM CHLORIDE 0.9% 250ML 250 ML IV STA (00:38)
[2016-11-26 00:46] LABS: URINE APPEARANCE CLEAR (CLEAR); URINE BILIRUBIN NEG (NEG); URINE COLOR YELLOW; URINE NITRITE NEG (NEG); URINE SPECIFIC GRAVITY 1.008 (1.000-1.030); UROBILINOGEN NEG (NEG); ZZURINE CULT IF INDIC CATH NO
[2016-11-26 01:01] LABS: MANUAL MICROSCOPIC REQUIRED? NO; REVIEW REQ? NO
--- NOTE | 2016-11-26 01:38 | EMERGENCY ROOM VISIT NOTE ---
History First contact with patient: 23:07 Chief Complaint: UNABLE TO VOID Stated Complaint: CAN'T URINATE Nursing Triage Summary: c/o not "peeing" since earlier today History of Present Illness The patient is a 86 year old female who presents to the Emergency Department with a family member for evaluation of decreased urinary output. The patient reports a history of kidney disease. She is limited 1200 mL of water daily. She follows closely with Dr. Hwang of nephrology. She did not receive dialysis. She reports that she is only had 1 urinary output today which was this morning. She typically urinates a few times per day. The patient became concerned due to lack of urinary output which prompted her visit today. She reports some mild pressure in her pelvic area. She denies any fevers or chills. She denies any urinary symptoms recently. She rates her current discomfort as an 8/10. She is tried nothing [id number] for her symptoms. The patient denies any chest pain, palpitations, short of breath, hematochezia , melena, hematuria, or dysuria. Review of Systems A complete 10-point Review of Systems was discussed with the patient, with pertinent positives and negatives listed in the History of Present Illness. All remaining Review of Systems questions can be considered negative unless otherwise specified. Past Medical/Surgical History Medical Problems: (1) Anemia, chronic disease (2) Anxiety (3) CKD (chronic kidney disease), stage IV (4) GERD (gastroesophageal reflux disease) (5) H/O echocardiogram (6) HLD (hyperlipidemia) (7) HTN (hypertension) (8) Hypothyroidism (9) Palpitations (10) SIADH (syndrome of inappropriate ADH production) Surgical Problems: (1) Hx of appendectomy (2) Hx of cholecystectomy (3) Hx of dilation and curettage (4) Status post total hip replacement, left Family History FHx: heart disease Hypertension Social History Smoking Status: Never Smoker Alcohol Use: none Drug Use: none Marital Status: Housing Status: lives with family Occupation Status: retired Current/Historical Medications Scheduled Aspirin (Aspirin Ec), 81 MG PO DAILY Atorvastatin (Lipitor), 10 MG PO DAILY Bumetanide (Bumetanide), 0.5 MG PO QAM Docusate Sodium (Docusate Sodium), 100 MG PO BID Epoetin Rafael (Procrit), 10,000 UNITS SC q 3 weeks Ferrous Sulfate (Ferrous Sulfate), 325 MG PO BID Levothyroxine Sodium (Levothyroxine Sodium), 75 MCG PO DAILY Magnesium Oxide (Mg Supplement (Magnesium Oxide), 1 TAB PO BID Metoprolol Tartrate (Lopressor), 12.5 MG PO BID Mirtazapine (Remeron), 7.5 MG PO HS Nifedipine (Nifedipine Er), 30 MG PO DAILY Pantoprazole (Protonix), 40 MG PO DAILY Ranitidine HCl (Ranitidine HCl), 150 MG PO QAM Scheduled PRN Lorazepam (Ativan), 1 MG PO BID PRN for Anxiety Allergies Coded Allergies: Penicillins (Verified Allergy, Intermediate, HIVES, 11/25/16) Iron Sucrose (Unverified Adverse Reaction, Mild, n&v, abd pain, 11/25/16) Physical Exam Vital Signs Date Time Temp Pulse Resp B/P Pulse Ox O2 Delivery O2 Flow Rate FiO2 11/26/16 02:08 56 18 140/56 99 11/26/16 00:47 54 18 138/57 100 Room Air 11/25/16 22:56 36.4 88 20 184/73 97 Room Air Pain Rating (0-10): 8 Physical Exam VITAL SIGNS - Vital signs and nursing notes were reviewed. GENERAL - 86-year-old female appearing her stated age who is in no acute distress. Communicates well with provider and answers questions appropriately. LUNGS - Chest wall symmetric without accessory muscle use, intercostals retractions, or central cyanosis. Normal vesicular breath sounds CTA B/L. No wheezes, rales, or rhonchi appreciated. CARDIAC - RRR with S1/S2. No murmur, rubs, or gallops appreciated. ABDOMEN - Abdominal contour flat and without pulsations or visible masses. BS normoactive all four quadrants. No tenderness to palpation appreciated throughout. No guarding. No Rebound Tenderness. Negative Rovsing's. Negative Grant's. No palpable masses, hepatosplenomegaly, or ascites noted. PSYCH - A&Ox3 and cooperates fully with examiner. Pt is very pleasant and interacts well with examiner. Medical Decision & Procedures Laboratory Results 11/25/16 23:35 Red Blood Count 2.82, Mean Corpuscular Volume 97.9, Mean Corpuscular Hemoglobin 33.0, Mean Corpuscular Hemoglobin Concent 33.7, Mean Platelet Volume 9.9, Neutrophils (%) (Auto) 49.2, Lymphocytes (%) (Auto) 40.0, Monocytes (%) (Auto) 7.4, Eosinophils (%) (Auto) 3.2, Basophils (%) (Auto) 0.2, Neutrophils # (Auto) 2.32, Lymphocytes # (Auto) 1.89, Monocytes # (Auto) 0.35, Eosinophils # (Auto) 0.15, Basophils # (Auto) 0.01 11/25/16 23:35 Test 11/25/16 23:28 11/25/16 23:35 Urine Color YELLOW Urine Appearance CLEAR (CLEAR) Urine pH 6.0 (4.5-7.5) Urine Specific [place] 1.008 (1.000-1.030) Urine Protein NEG (NEG) Urine Glucose (UA) NEG (NEG) Urine Ketones NEG (NEG) Urine Occult Blood NEG (NEG) Urine Nitrite NEG (NEG) Urine Bilirubin NEG (NEG) Urine Urobilinogen NEG (NEG) Urine Leukocyte Esterase TRACE (NEG) Urine WBC (Auto) 0 /hpf (0-5) Urine RBC (Auto) 0-4 /hpf (0-4) Urine Hyaline Casts (Auto) 1-5 /lpf (0-5) Urine Epithelial Cells (Auto) 5-10 /lpf (0-5) Urine Bacteria (Auto) NEG (NEG) White Blood Count 4.72 K/uL (4.8-10.8) Red Blood Count 2.82 M/uL (4.2-5.4) Hemoglobin 9.3 g/dL (12.0-16.0) Hematocrit 27.6 % (37-47) Mean Corpuscular Volume 97.9 fL (80-100) Mean Corpuscular Hemoglobin 33.0 pg (25-34) Mean Corpuscular Hemoglobin Concent 33.7 g/dl (32-36) Platelet Count 140 K/uL (130-400) Mean Platelet Volume 9.9 fL (7.4-10.4) Neutrophils (%) (Auto) 49.2 % Lymphocytes (%) (Auto) 40.0 % Monocytes (%) (Auto) 7.4 % Eosinophils (%) (Auto) 3.2 % Basophils (%) (Auto) 0.2 % Neutrophils # (Auto) 2.32 K/uL (1.4-6.5) Lymphocytes # (Auto) 1.89 K/uL (1.2-3.4) Monocytes # (Auto) 0.35 K/uL (0.11-0.59) Eosinophils # (Auto) 0.15 K/uL (0-0.5) Basophils # (Auto) 0.01 K/uL (0-0.2) RDW Standard Deviation 50.6 fL (36.4-46.3) RDW Coefficient of Variation 14.2 % (11.5-14.5) Immature Granulocyte % (Auto) 0.0 % Immature Granulocyte # (Auto) 0.00 K/uL (0.00-0.02) Anion Gap 7.0 mmol/L (3-11) Est Creatinine Clear Calc Drug Dose 14.2 ml/min Estimated GFR () 25.6 Estimated GFR (Non- 22.0 BUN/Creatinine Ratio 20.6 (10-20) Calcium Level 9.1 mg/dl (8.5-10.1) Total Bilirubin 0.4 mg/dl (0.2-1) Aspartate Amino Transf (AST/SGOT) 22 U/L (15-37) Alanine Aminotransferase (ALT/SGPT) 25 U/L (12-78) Alkaline Phosphatase 135 U/L (45-117) Total Protein 7.2 gm/dl (6.4-8.2) Albumin 3.7 gm/dl (3.4-5.0) Globulin 3.5 gm/dl (2.5-4.0) Albumin/Globulin Ratio 1.1 (0.9-2) Medications Administered Medications (Trade) Dose Ordered Sig/Jassi Route Start Time Stop Time Status Last Admin Dose Admin Sodium Chloride (Nss 250ml) 250 ml @ 999 mls/hr Q16M STAT IV 11/26/16 00:38 11/26/16 00:53 DC 11/26/16 00:46 999 MLS/HR ED Course Patient was seen and evaluated by myself. Previous emergency department visit notes were reviewed. Labs were drawn, saline lock in place. Cath urine was obtained. Laboratory results demonstrate no acute leukocytosis, worrisome anemia, or bandemia. The patient has no significant electrolyte abnormalities. Urinalysis does not suggest infection. The patient was hydrated with a 250 mL normal saline bolus. Case was discussed with my attending physician who had apparently evaluated the patient and agrees with diagnostic approach treatment plan. The patient was instructed to drink 1 extra cup of water per day for the next 3 days. She was encouraged to contact her inspector automatic typewriter's office tomorrow for further direction. She was educated on worrisome symptoms for return visit to the emergency department. Patient discharged home in good condition. Medical Decision Given the patient's presentation and stated complaints, I did elect to perform the above-mentioned workup. The patient presents to the emergency Department for inability to void. The patient has no fevers. There is no leukocytosis. She does have a history of hyponatremia which does not appear to be excessively low today. Her creatinine was mildly elevated at 2.0. This is mildly elevated from baseline. She was hydrated with a 2 and 50 mL normal saline bolus. She has no urinary's findings consistent with infection. The patient is likely experiencing some mild volume completion. She will follow closely with her inspector automatic typewriter with whom she is established. She will return to the emergency department in the setting of any changing or worsening symptoms. Patient discharged home afebrile and in good condition. In the evaluation and treatment of this patient, the following differential diagnoses were considered: Bladder Cancer, Chlamydial Genitourinary Infection, Cystitis, Herpes Simplex, Interstitial Cystitis, PID, Pyelonephritis, Urethritis , or Vaginitis. Impression Primary Impression: Decreased urine output Departure Information Dispostion Home / Self-Care Condition GOOD Referrals Yogesh Quevedo III, M.D. (PCP) Karen Hwang I., DO Patient Instructions My [facility] Additional Instructions Please follow-up with Dr. Hwang from today's visit. Drink 1 extra cup of water per day for the next 3 days. Return to the emergency department for any changing or worsening symptoms.
[2016-11-26 02:08] VITALS: BP 140/56; PULSE 56; O2SAT 99
[2017-02-03] MEDS ORDERED: CPR500 PO (16:45)
[2017-02-03] MEDS ORDERED: ESCI1TAB6 PO (16:45)
== END 2016-11-26 02:10 | disposition home or self-care (01) ==
LOC: C.EDB 22:54 → C.EDC 11-26 02:10
DX: R33.9 Retention of urine, unspecified (principal); I12.9 Hypertensive chronic kidney disease with stage 1 through stage 4 chronic kidney disease, or unspecified chronic kidney disease; N18.5 Chronic kidney disease, stage 5; E78.5 Hyperlipidemia, unspecified; E03.9 Hypothyroidism, unspecified; K21.9 Gastro-esophageal reflux disease without esophagitis; F41.9 Anxiety disorder, unspecified; D64.9 Anemia, unspecified; Z90.49 Acquired absence of other specified parts of digestive tract; Z96.642 Presence of left artificial hip joint; Z98.890 Other specified postprocedural states; Z79.82 Long term (current) use of aspirin; Z79.899 Other long term (current) drug therapy; Z88.0 Allergy status to penicillin; Z91.018 Allergy to other foods; Z82.49 Family history of ischemic heart disease and other diseases of the circulatory system

== ENCOUNTER 2016-12-14 08:19 | Emergency (ER) | payer OTHER ==
[~2016-12-14] VITALS: Ht 152.4 cm; Wt 54.4 kg
[2016-12-14 08:21] VITALS: TEMP 36.5; Ht 152.4 cm; Wt 54.4 kg
[2016-12-14 08:35] VITALS: O2SAT 98
[2016-12-14] MEDS ORDERED: SODIUM CHLORIDE 0.9% 500ML 500 ML IV STA ×2 (08:39→09:36)
--- NOTE | 2016-12-14 08:41 | EMERGENCY ROOM VISIT NOTE ---
History Report prepared by Unique: Harjeet Gaston Under the Supervision of: Dr. Leonardo Gaitan M.D. First contact with patient: 08:28 Chief Complaint: NEURO SYMPTOMS Stated Complaint: WEAK LEGS, HEAD HURTING History of Present Illness The patient is a 86 year old female who presents to the Emergency Room with complaints of bilateral leg weakness that began this morning. Per the patient's daughter, she has a past medical history of hyponatremia. The patient has a pressure in the back of her that is baseline with her arthritis. The last time these symptoms presented themselves, the patient was in an episode of hyponatremia. She is currently taking Cipro for a UTI. She is also experiencing heart palpitations. She denies any fevers. Source of History: patient Onset: this morning Position: leg (bilateral) Symptom Intensity: moderate Quality: numbness Timing: constant Associated Symptoms: + headache, No fevers Note: She has heart palpitations. Review of Systems See HPI for pertinent positives & negatives. A total of 10 systems reviewed and were otherwise negative. Past Medical & Surgical Medical Problems: (1) Anemia, chronic disease (2) Anxiety (3) CKD (chronic kidney disease), stage IV (4) GERD (gastroesophageal reflux disease) (5) H/O echocardiogram (6) HLD (hyperlipidemia) (7) HTN (hypertension) (8) Hypothyroidism (9) Palpitations (10) SIADH (syndrome of inappropriate ADH production) Surgical Problems: (1) Hx of appendectomy (2) Hx of cholecystectomy (3) Hx of dilation and curettage (4) Status post total hip replacement, left Family History FHx: heart disease Hypertension Social History Smoking Status: Never Smoker Alcohol Use: none Drug Use: none Marital Status: Housing Status: lives with family Occupation Status: retired Current/Historical Medications Scheduled Aspirin (Aspirin Ec), 81 MG PO DAILY Atorvastatin (Lipitor), 10 MG PO HS Bumetanide (Bumetanide), 0.5 MG PO QAM Ciprofloxacin Tab (Cipro), 250 MG PO Q12 Epoetin Rafael (Procrit), 10,000 UNITS SC q 3 weeks Ferrous Sulfate (Ferrous Sulfate), 325 MG PO BID Levothyroxine Sodium (Levothyroxine Sodium), 75 MCG PO DAILY Magnesium Oxide (Mg Supplement (Magnesium Oxide), 1 TAB PO DAILY Metoprolol Tartrate (Lopressor), 12.5 MG PO BID Mirtazapine (Remeron), 7.5 MG PO HS Nifedipine (Nifedipine Er), 30 MG PO DAILY Pantoprazole (Protonix), 40 MG PO DAILY Ranitidine HCl (Ranitidine HCl), 150 MG PO QAM Scheduled PRN Docusate Sodium (Docusate Sodium), 1 CAP PO DAILY PRN for Constipation Lorazepam (Ativan), 1 MG PO BID PRN for Anxiety Allergies Coded Allergies: Penicillins (Verified Allergy, Intermediate, HIVES, 11/25/16) Iron Sucrose (Unverified Adverse Reaction, Mild, n&v, abd pain, 11/25/16) Physical Exam Vital Signs Date Time Temp Pulse Resp B/P Pulse Ox O2 Delivery O2 Flow Rate FiO2 12/14/16 11:10 57 18 125/86 100 Room Air 12/14/16 09:55 56 18 152/53 100 Room Air 12/14/16 08:45 63 18 135/47 98 Room Air 61 121/54 70 136/56 12/14/16 08:38 71 12/14/16 08:35 98 Room Air 12/14/16 08:21 36.5 60 18 117/57 100 Room Air Physical Exam GENERAL: Patient is a healthy-appearing well-nourished HEAD: Normocephalic atraumatic EYES: Ocular movements intact pupils equal and react to light OROPHARYNX mucous membranes are moist no exudates present no erythema or edema present NECK: Supple no nuchal rigidity CHEST: Good equal expansion LUNGS: Clear and equal to auscultation CARDIAC: Normal S1 and S2 ABDOMEN: Soft nontender no guarding BACK: No CVA tenderness EXTREMITIES: No pain upon palpation normal muscle strength in all groups no clubbing cyanosis or edema NEURO: Patient is following commands is answering questions appropriately. Alert and oriented x3 Cranial Nerves 2-12 grossly intact Medical Decision & Procedures ER Provider Diagnostic Interpretation: Radiology results as stated below per my review and radiologist interpretation: CT HEAD WITHOUT CONTRAST (CT) CLINICAL HISTORY: Severe headache COMPARISON STUDY: 06/02/2016 TECHNIQUE: Axial CT of the brain is performed from the vertex to the skull base. IV contrast was not administered for this examination. CT DOSE: 1074.96 mGy.cm FINDINGS: No intra or extra-axial mass lesions are visualized. There is no CT evidence of acute cortical infarction. There is no evidence of midline shift. There is no acute hemorrhage. No calvarial fractures are visualized. There are minor white matter hypodensities likely on a small vessel basis. There is no evidence of pathologic ventricular dilatation. There is no evidence of acute sinusitis IMPRESSION: No acute intracranial findings Electronically signed by: Mauro Sanchez M.D. 12/14/2016 9:30 AM Dictated Date/Time: 12/14/2016 9:29 AM CHEST ONE VIEW PORTABLE CLINICAL HISTORY: Atypical chest pain COMPARISON STUDY: 11/09/2016 FINDINGS: The heart is mildly enlarged. There is no failure. There is no focal pulmonary consolidation. There is stable scarring at the left lung base.[ No pleural effusions are visualized. IMPRESSION: Mild cardiomegaly. No acute findings. Electronically signed by: Mauro Sanchez M.D. 12/14/2016 9:23 AM Dictated Date/Time: 12/14/2016 9:23 AM Laboratory Results 12/14/16 08:05 Red Blood Count 3.11, Mean Corpuscular Volume 97.1, Mean Corpuscular Hemoglobin 33.8, Mean Corpuscular Hemoglobin Concent 34.8, Mean Platelet Volume 9.7, Neutrophils (%) (Auto) 52.5, Lymphocytes (%) (Auto) 32.4, Monocytes (%) (Auto) 9.8, Eosinophils (%) (Auto) 4.6, Basophils (%) (Auto) 0.7, Neutrophils # (Auto) 2.42, Lymphocytes # (Auto) 1.49, Monocytes # (Auto) 0.45, Eosinophils # (Auto) 0.21, Basophils # (Auto) 0.03 12/14/16 08:05 Test 12/14/16 08:05 12/14/16 08:47 12/14/16 09:50 White Blood Count 4.60 K/uL (4.8-10.8) Red Blood Count 3.11 M/uL (4.2-5.4) Hemoglobin 10.5 g/dL (12.0-16.0) Hematocrit 30.2 % (37-47) Mean Corpuscular Volume 97.1 fL (80-100) Mean Corpuscular Hemoglobin 33.8 pg (25-34) Mean Corpuscular Hemoglobin Concent 34.8 g/dl (32-36) Platelet Count 172 K/uL (130-400) Mean Platelet Volume 9.7 fL (7.4-10.4) Neutrophils (%) (Auto) 52.5 % Lymphocytes (%) (Auto) 32.4 % Monocytes (%) (Auto) 9.8 % Eosinophils (%) (Auto) 4.6 % Basophils (%) (Auto) 0.7 % Neutrophils # (Auto) 2.42 K/uL (1.4-6.5) Lymphocytes # (Auto) 1.49 K/uL (1.2-3.4) Monocytes # (Auto) 0.45 K/uL (0.11-0.59) Eosinophils # (Auto) 0.21 K/uL (0-0.5) Basophils # (Auto) 0.03 K/uL (0-0.2) RDW Standard Deviation 48.0 fL (36.4-46.3) RDW Coefficient of Variation 13.5 % (11.5-14.5) Immature Granulocyte % (Auto) 0.0 % Immature Granulocyte # (Auto) 0.00 K/uL (0.00-0.02) Anion Gap 10.0 mmol/L (3-11) Est Creatinine Clear Calc Drug Dose 15.3 ml/min Estimated GFR () 27.2 Estimated GFR (Non- 23.5 BUN/Creatinine Ratio 24.7 (10-20) Calcium Level 9.2 mg/dl (8.5-10.1) Total Bilirubin 0.4 mg/dl (0.2-1) Direct Bilirubin 0.1 mg/dl (0-0.2) Aspartate Amino Transf (AST/SGOT) 27 U/L (15-37) Alanine Aminotransferase (ALT/SGPT) 28 U/L (12-78) Alkaline Phosphatase 94 U/L (45-117) Total Creatine Kinase 121 U/L (26-192) Creatine Kinase MB 1.3 ng/ml (0.5-3.6) Creatine Kinase MB Ratio 1.1 (0-3.0) Troponin I < 0.015 ng/ml (0-0.045) Total Protein 7.3 gm/dl (6.4-8.2) Albumin 3.8 gm/dl (3.4-5.0) Thyroid Stimulating Hormone (TSH) 4.930 uIu/ml (0.300-4.500) Bedside Glucose 125 mg/dl (70-90) Urine Color YELLOW Urine Appearance CLEAR (CLEAR) Urine pH 5.0 (4.5-7.5) Urine Specific [place] 1.007 (1.000-1.030) Urine Protein NEG (NEG) Urine Glucose (UA) NEG (NEG) Urine Ketones NEG (NEG) Urine Occult Blood NEG (NEG) Urine Nitrite NEG (NEG) Urine Bilirubin NEG (NEG) Urine Urobilinogen NEG (NEG) Urine Leukocyte Esterase NEG (NEG) Labs reviewed by ED physician. Medications Administered Medications (Trade) Dose Ordered Sig/Jassi Route Start Time Stop Time Status Last Admin Dose Admin Sodium Chloride 500 ml @ 999 mls/hr Q31M STAT IV 12/14/16 08:39 12/14/16 09:09 DC 12/14/16 08:42 999 MLS/HR Sodium Chloride (Nss 500ml) 500 ml @ 999 mls/hr Q31M STAT IV 12/14/16 09:36 12/14/16 10:06 DC 12/14/16 09:42 999 MLS/HR ECG Indication: weakness Rate (beats per minute): 61 Rhythm: sinus rhythm Findings: 1st degree AV block, PVC, no acute ischemic change ED Course 0828: Past medical records reviewed. The patient was evaluated in room A3. A complete history and physical examination was performed. 0839: Ordered Sodium Chloride 500 ml @ 999 mls/hr IV 0936: Ordered Sodium Chloride 500 ml @ 999 mls/hr IV 1120: Upon reexamination the patient is resting. I discussed results and treatment plan with the patient. She verbalizes agreement and understanding. The patient is ready for discharge. Medical Decision Differential diagnosis: Etiologies such as metabolic, infection, hypo/hyperglycemia, electrolyte abnormalities, cardiac sources, intracerebral event, toxicologic, neurologic, as well as others were entertained. This is an 86-year-old female who presents emergency department complaining of bilateral leg weakness. The patient reports is normally happens when his sodium gets too low and she believes her sodium is low because she has been drinking more water than normal for her antibiotics. Her sodium is 126. She was given multiple boluses of normal saline in the emergency department. Repeat examination revealed much improvement patient's symptoms. She has a normal CBC and her urine is also normal. I feel based on these findings at the patient can be safely discharged home. Patient was in agreement with the treatment plan. Impression Primary Impression: Weakness Additional Impression: Hyponatremia Scribe Attestation The scribe's documentation has been prepared under my direction and personally reviewed by me in its entirety. I confirm that the note above accurately reflects all work, treatment, procedures, and medical decision making performed by me. Departure Information Dispostion Home / Self-Care Referrals Yogesh Quevedo III, M.D. (PCP) Forms HOME CARE DOCUMENTATION FORM, IMPORTANT VISIT INFORMATION, WORK / SCHOOL INSTRUCTIONS Patient Instructions ED Weakness [facility], My [facility] Additional Instructions You have been examined and treated today on an emergency basis only. This is not a substitute for, or an effort to provide, complete comprehensive medical care. It is impossible to recognize and treat all injuries or illnesses in a single emergency department visit. It is therefore important that you follow up closely with Dr Quevedo. Call as soon as possible for an appointment. Thank you for your time and consideration. I look forward to speaking with you again soon. Please don't hesitate to call us if you have any questions. Problem Qualifiers
[2016-12-14] MEDS ORDERED: CIPR1TAB11 PO (08:48)
[2016-12-14] MEDS ORDERED: DOCU100C31 PO (08:48)
[2016-12-14 08:49] LABS: BASO % 0.7 %; BASO ABS # 0.03 K/uL (0-0.2); COMPLETE YES; EOS % 4.6 %; HEMATOCRIT 30.2 % (37-47); LYMPH % 32.4 %; LYMPH ABS # 1.49 K/uL (1.2-3.4); MEAN CELL VOLUME 97.1 fL (80-100); MEAN CORPUSCULAR HEMOGLOBIN 33.8 pg (25-34); MEAN CORPUSCULAR HGB CONC 34.8 g/dl (32-36); MEAN PLATELET VOLUME 9.7 fL (7.4-10.4); MONO % 9.8 %; NEUT % 52.5 %; PLATELET COUNT 172 K/uL (130-400); RED BLOOD COUNT 3.11 M/uL (4.2-5.4)
[2016-12-14 09:07] LABS: CALCIUM 9.2 mg/dl (8.5-10.1)
[2016-12-14 09:08] LABS: ALT/SGPT 28 U/L (12-78); BLOOD UREA NITROGEN 47 mg/dl (7-18); BUN/CREATININE RATIO 24.7 (10-20); CARBON DIOXIDE 27 mmol/L (21-32); CHLORIDE 88 mmol/L (98-107); GLUCOSE 108 mg/dl (70-99); POTASSIUM 3.9 mmol/L (3.5-5.1); SODIUM 125 mmol/L (136-145)
[2016-12-14 09:18] LABS: ALKALINE PHOSPHATASE 94 U/L (45-117); AST/SGOT 27 U/L (15-37); CKMB/CK RATIO 1.1 (0-3.0)
--- NOTE | 2016-12-14 09:25 | DIAGNOSTIC IMAGING REPORT ---
CHEST ONE VIEW PORTABLE CLINICAL HISTORY: Atypical chest pain COMPARISON STUDY: 11/09/2016 FINDINGS: The heart is mildly enlarged. There is no failure. There is no focal pulmonary consolidation. There is stable scarring at the left lung base.[ No pleural effusions are visualized. IMPRESSION: Mild cardiomegaly. No acute findings. Electronically signed by: Mauro Sanchez M.D. 12/14/2016 9:23 AM Dictated Date/Time: 12/14/2016 9:23 AM
--- NOTE | 2016-12-14 09:32 | DIAGNOSTIC IMAGING REPORT ---
CT HEAD WITHOUT CONTRAST (CT) CLINICAL HISTORY: Severe headache COMPARISON STUDY: 06/02/2016 TECHNIQUE: Axial CT of the brain is performed from the vertex to the skull base. IV contrast was not administered for this examination. CT DOSE: 1074.96 mGy.cm FINDINGS: No intra or extra-axial mass lesions are visualized. There is no CT evidence of acute cortical infarction. There is no evidence of midline shift. There is no acute hemorrhage. No calvarial fractures are visualized. There are minor white matter hypodensities likely on a small vessel basis. There is no evidence of pathologic ventricular dilatation. There is no evidence of acute sinusitis IMPRESSION: No acute intracranial findings Electronically signed by: Mauro Sanchez M.D. 12/14/2016 9:30 AM Dictated Date/Time: 12/14/2016 9:29 AM
[2016-12-14 10:43] LABS: URINE APPEARANCE CLEAR (CLEAR); URINE BILIRUBIN NEG (NEG); URINE COLOR YELLOW; URINE NITRITE NEG (NEG); URINE SPECIFIC GRAVITY 1.007 (1.000-1.030); UROBILINOGEN NEG (NEG)
[2016-12-14 10:55] LABS: MANUAL MICROSCOPIC REQUIRED? NO; REVIEW REQ? NO
[2016-12-14 11:10] VITALS: BP 125/86; PULSE 57; O2SAT 100
[2017-02-03] MEDS ORDERED: CPR500 PO (16:45)
[2017-02-03] MEDS ORDERED: ESCI1TAB6 PO (16:45)
== END 2016-12-14 11:29 | disposition home or self-care (01) ==
LOC: C.EDB 08:20 → C.EDA 11:29
DX: R53.1 Weakness (principal); E87.1 Hypo-osmolality and hyponatremia; I44.0 Atrioventricular block, first degree; I12.9 Hypertensive chronic kidney disease with stage 1 through stage 4 chronic kidney disease, or unspecified chronic kidney disease; N18.4 Chronic kidney disease, stage 4 (severe); E78.5 Hyperlipidemia, unspecified; E06.9 Thyroiditis, unspecified; K21.9 Gastro-esophageal reflux disease without esophagitis; F41.9 Anxiety disorder, unspecified; Z90.49 Acquired absence of other specified parts of digestive tract; Z98.890 Other specified postprocedural states; Z96.642 Presence of left artificial hip joint; Z79.82 Long term (current) use of aspirin; Z79.899 Other long term (current) drug therapy; Z88.0 Allergy status to penicillin; Z91.018 Allergy to other foods; Z82.49 Family history of ischemic heart disease and other diseases of the circulatory system

== ENCOUNTER → 2016-12-18 | Day surgery (SDC) | payer OTHER ==
[~2016-12-18] MED LIST changes: +BSP/5 PO; +BUME1TAB PO; +CIPR1TAB11 PO; +CITA10TA4 PO; -CLC100 PO; +CPR500 PO; +CPR500HP PO; +DOCU-94 PO; +DOCU100C31 PO; +ESCI10TA17 PO; +ESCI1TAB6 PO; +FERR325T5 PO; +LEVO88TA PO; +MAGN10TA PO; +MAGN400T6 PO; +METO25TA56 PO; +NUTR-773 PO; +POLY335019 PO; +RANI150T3 PO; +ZNTT/150 PO
[2016-12-18 15:54] VITALS: BP 156/51; PULSE 66; TEMP 36.6; O2SAT 97
== END | disposition home or self-care (01) ==
LOC: C.ACU 15:31
PROVIDERS: ATTEND Internal Medicine
DX: R33.9 Retention of urine, unspecified (principal)

== ENCOUNTER 2016-12-22 22:10 | Emergency (ER) | payer OTHER ==
[~2016-12-22] VITALS: Ht 144.8 cm; Wt 53.5 kg
[~2016-12-22 22:10] MED LIST changes: -BSP/5 PO; -BUME1TAB PO; -CITA10TA4 PO; -CPR500 PO; -CPR500HP PO; -DOCU-94 PO; -ESCI10TA17 PO; -ESCI1TAB6 PO; -FERR325T5 PO; -LEVO88TA PO; -MAGN10TA PO; -MAGN400T6 PO; -METO25TA56 PO; -NUTR-773 PO; -POLY335019 PO; -RANI150T3 PO; -ZNTT/150 PO
[2016-12-22 22:17] VITALS: TEMP 37; Ht 144.8 cm; Wt 53.5 kg
--- NOTE | 2016-12-22 22:34 | EMERGENCY ROOM VISIT NOTE ---
History Report prepared by Tammyibmargy: Kyleigh Padilla Under the Supervision of: Yolanda FlowersO. First contact with patient: 22:20 Chief Complaint: BILATERAL LEG WEAKNESS Stated Complaint: WEAK IN THE LEGS History of Present Illness The patient is a 86 year old female who presents to the Emergency Room with complaints of persistent bilateral lower extremity weakness starting about 2 and a half hours ago. She is unable to ambulate as normal. She reports intermittent issues with discharging urine. She has a history of similar symptoms occurring with low sodium. She denies any headache, blurry vision, issues with speech, upper extremity weakness, numbness or tingling, or any other complaints. She has chronic back pain and denies any changes. Source of History: patient Onset: about 2 and a half hours ago Position: other (bilateral lower extremity) Quality: other (weakness) Timing: other (persistent) Associated Symptoms: No headache, No numbness Review of Systems See HPI for pertinent positives and negatives. A total of ten systems were reviewed and were otherwise negative. Past Medical & Surgical Medical Problems: (1) Anemia, chronic disease (2) Anxiety (3) CKD (chronic kidney disease), stage IV (4) GERD (gastroesophageal reflux disease) (5) H/O echocardiogram (6) HLD (hyperlipidemia) (7) HTN (hypertension) (8) Hypothyroidism (9) Palpitations (10) SIADH (syndrome of inappropriate ADH production) Surgical Problems: (1) Hx of appendectomy (2) Hx of cholecystectomy (3) Hx of dilation and curettage (4) Status post total hip replacement, left Family History FHx: heart disease Hypertension Social History Smoking Status: Never Smoker Alcohol Use: none Drug Use: none Marital Status: Housing Status: lives with family Occupation Status: retired Current/Historical Medications Scheduled Aspirin (Aspirin Ec), 81 MG PO DAILY Atorvastatin (Lipitor), 10 MG PO HS Bumetanide (Bumetanide), 0.5 MG PO QAM Epoetin Rafael (Procrit), 10,000 UNITS SC q 3 weeks Ferrous Sulfate (Ferrous Sulfate), 325 MG PO BID Levothyroxine Sodium (Levothyroxine Sodium), 75 MCG PO DAILY Magnesium Oxide (Mg Supplement (Magnesium Oxide), 1 TAB PO DAILY Metoprolol Tartrate (Lopressor), 12.5 MG PO BID Mirtazapine (Remeron), 7.5 MG PO HS Nifedipine (Nifedipine Er), 30 MG PO DAILY Pantoprazole (Protonix), 40 MG PO DAILY Ranitidine HCl (Ranitidine HCl), 150 MG PO QAM Scheduled PRN Docusate Sodium (Docusate Sodium), 1 CAP PO DAILY PRN for Constipation Lorazepam (Ativan), 1 MG PO BID PRN for Anxiety Allergies Coded Allergies: Penicillins (Verified Allergy, Intermediate, HIVES, 12/22/16) Iron Sucrose (Unverified Adverse Reaction, Mild, n&v, abd pain, 12/22/16) Physical Exam Vital Signs Date Time Temp Pulse Resp B/P Pulse Ox O2 Delivery O2 Flow Rate FiO2 12/22/16 23:15 55 18 139/68 100 Room Air 12/22/16 22:51 56 168/41 58 172/44 12/22/16 22:45 97 Room Air 12/22/16 22:45 97 Room Air 12/22/16 22:31 58 12/22/16 22:17 37.0 68 18 185/66 97 Room Air Physical Exam GENERAL: Awake, alert, well-appearing, in no distress HENT: Normocephalic, atraumatic. Oropharynx unremarkable. EYES: Normal conjunctiva. Sclera non-icteric. NECK: Supple. No nuchal rigidity. FROM. No JVD. RESPIRATORY: Clear to auscultation. CARDIAC: Regular rate, normal rhythm. Extremities warm and well perfused. Pulses equal. ABDOMEN: Soft, non-distended. No tenderness to palpation. No rebound or guarding. No masses. RECTAL: Deferred. MUSCULOSKELETAL: Chest examination reveals no tenderness. The back is symmetrical on inspection without obvious abnormality. There is no CVA tenderness to palpation. No joint edema. LOWER EXTREMITIES: Calves are equal size bilaterally and non-tender. No edema. No discoloration. NEURO: Normal sensorium. No sensory or motor deficits noted. SKIN: No rash or jaundice noted. Medical Decision & Procedures Laboratory Results 12/22/16 23:00 Red Blood Count 2.73, Mean Corpuscular Volume 96.3, Mean Corpuscular Hemoglobin 33.7, Mean Corpuscular Hemoglobin Concent 35.0, Mean Platelet Volume 10.1 12/22/16 23:00 Test 12/22/16 22:58 12/22/16 23:00 Bedside Glucose 96 mg/dl (70-90) White Blood Count 4.47 K/uL (4.8-10.8) Red Blood Count 2.73 M/uL (4.2-5.4) Hemoglobin 9.2 g/dL (12.0-16.0) Hematocrit 26.3 % (37-47) Mean Corpuscular Volume 96.3 fL (80-100) Mean Corpuscular Hemoglobin 33.7 pg (25-34) Mean Corpuscular Hemoglobin Concent 35.0 g/dl (32-36) Platelet Count 168 K/uL (130-400) Mean Platelet Volume 10.1 fL (7.4-10.4) RDW Standard Deviation 46.5 fL (36.4-46.3) RDW Coefficient of Variation 13.2 % (11.5-14.5) Neutrophils % (Manual) 57.0 % Lymphocytes % (Manual) 36.0 % Monocytes % (Manual) 6.1 % Eosinophils % (Manual) 0.9 % Neutrophils # (Manual) 2.55 K/uL (1.4-6.5) Total Absolute Neutrophils 2.55 K/uL (1.4-6.5) Lymphocytes # (Manual) 1.61 K/uL (1.2-3.4) Total Absolute Lymphocytes 1.61 K/uL (1.2-3.4) Monocytes # (Manual) 0.27 K/uL (0.11-0.59) Eosinophils # (Manual) 0.04 K/uL (0-0.5) Anion Gap 7.0 mmol/L (3-11) Est Creatinine Clear Calc Drug Dose 14.2 ml/min Estimated GFR () 25.6 Estimated GFR (Non- 22.0 BUN/Creatinine Ratio 19.0 (10-20) Calcium Level 8.7 mg/dl (8.5-10.1) Total Bilirubin 0.2 mg/dl (0.2-1) Direct Bilirubin 0.1 mg/dl (0-0.2) Aspartate Amino Transf (AST/SGOT) 25 U/L (15-37) Alanine Aminotransferase (ALT/SGPT) 26 U/L (12-78) Alkaline Phosphatase 110 U/L (45-117) Total Protein 6.8 gm/dl (6.4-8.2) Albumin 3.6 gm/dl (3.4-5.0) Laboratory results reviewed by me ECG Indication: weakness Rate (beats per minute): 55 Rhythm: sinus bradycardia Findings: 1st degree AV block, nonspecific-ST abn, no acute ischemic change ED Course 2220: The patient was evaluated in room A04B. A complete history and physical exam was performed. 2358: I reevaluated the patient. Discussed results and discharge instructions: She verbalized understanding and agreement. The patient is ready for discharge. Medical Decision Differential diagnosis includes but is not limited to weakness, hyponatremia, metabolic abnormalities, anxiety, muscle sprain. Patient resting in no distress. I discussed the workup with the patient and patient's daughter at bedside. Patient has a sodium that is low and was seen on the seventh for the same. Patient is able to move her legs without any difficulty. We'll send her home for follow-up Impression Primary Impression: Leg weakness Additional Impression: Hyponatremia Scribe Attestation The scribe's documentation has been prepared under my direction and personally reviewed by me in its entirety. I confirm that the note above accurately reflects all work, treatment, procedures, and medical decision making performed by me. Departure Information Dispostion Home / Self-Care Referrals Yogesh Quevedo III, M.D. (PCP) Forms HOME CARE DOCUMENTATION FORM, IMPORTANT VISIT INFORMATION Patient Instructions ED Hyponatremia, ED Weakness [facility] Problem Qualifiers Primary Impression: Leg weakness Laterality: bilateral Qualified Codes: R29.898 - Other symptoms and signs involving the musculoskeletal system
[2016-12-22 22:45] VITALS: O2SAT 97
[2016-12-22 23:22] LABS: HEMATOCRIT 26.3 % (37-47); MEAN CELL VOLUME 96.3 fL (80-100); MEAN CORPUSCULAR HEMOGLOBIN 33.7 pg (25-34); MEAN PLATELET VOLUME 10.1 fL (7.4-10.4); PLATELET COUNT 168 K/uL (130-400); RED BLOOD COUNT 2.73 M/uL (4.2-5.4); WHITE BLOOD COUNT 4.47 K/uL (4.8-10.8)
[2016-12-22 23:48] LABS: CALCIUM 8.7 mg/dl (8.5-10.1); POTASSIUM 4.1 mmol/L (3.5-5.1)
[2016-12-22 23:55] LABS: COMPLETE YES; EOSINOPHIL % 0.9 %; LYMPH ABS # 1.61 K/uL (1.2-3.4)
[2016-12-23 00:23] VITALS: BP 154/45; PULSE 57; O2SAT 98
[2017-02-03] MEDS ORDERED: ESCI1TAB6 PO (16:45)
[2017-02-03] MEDS ORDERED: CPR500 PO (16:45)
== END 2016-12-23 00:25 | disposition home or self-care (01) ==
LOC: C.EDB 22:11 → C.EDA 12-23 00:25
DX: R53.1 Weakness (principal); E87.1 Hypo-osmolality and hyponatremia; I44.0 Atrioventricular block, first degree; E78.5 Hyperlipidemia, unspecified; I12.9 Hypertensive chronic kidney disease with stage 1 through stage 4 chronic kidney disease, or unspecified chronic kidney disease; N18.4 Chronic kidney disease, stage 4 (severe); E03.9 Hypothyroidism, unspecified; K21.9 Gastro-esophageal reflux disease without esophagitis; F41.9 Anxiety disorder, unspecified; D64.9 Anemia, unspecified; Z90.49 Acquired absence of other specified parts of digestive tract; Z98.890 Other specified postprocedural states; Z96.642 Presence of left artificial hip joint; Z79.82 Long term (current) use of aspirin; Z79.899 Other long term (current) drug therapy; Z88.0 Allergy status to penicillin; Z91.018 Allergy to other foods; Z82.49 Family history of ischemic heart disease and other diseases of the circulatory system

== ENCOUNTER 2016-12-27 09:04 | Emergency (ER) | payer OTHER ==
[~2016-12-27 09:04] MED LIST changes: -CIPR1TAB11 PO
[2016-12-27 09:09] VITALS: TEMP 36.4; Ht 144.8 cm
[2016-12-27 09:24] VITALS: O2SAT 99
[2016-12-27] MEDS ORDERED: ONDANSETRON INJ 2 MG/ML 2 ML VIAL IV STA (09:24)
[2016-12-27] MEDS ORDERED: SODIUM CHLORIDE 0.9% 1000ML 250 ML IV STA (09:24)
[2016-12-27] MEDS ORDERED: LORAZEPAM 1 MG TAB SL STA (09:24)
[2016-12-27 09:47] LABS: BASO % 0.8 %; BASO ABS # 0.04 K/uL (0-0.2); COMPLETE YES; EOS % 2.8 %; HEMATOCRIT 30.2 % (37-47); IG% 0.2 %; LYMPH % 35.3 %; LYMPH ABS # 1.87 K/uL (1.2-3.4); MEAN CELL VOLUME 97.1 fL (80-100); MEAN CORPUSCULAR HEMOGLOBIN 33.8 pg (25-34); MEAN CORPUSCULAR HGB CONC 34.8 g/dl (32-36); MEAN PLATELET VOLUME 10.5 fL (7.4-10.4); MONO % 10.8 %; NEUT % 50.1 %; PLATELET COUNT 170 K/uL (130-400); RED BLOOD COUNT 3.11 M/uL (4.2-5.4)
--- NOTE | 2016-12-27 09:56 | EMERGENCY ROOM VISIT NOTE ---
History Report prepared by Unique: Heather Polk Under the Supervision of: Dr. Oziel Yang M.D. First contact with patient: 09:17 Chief Complaint: WEAKNESS Stated Complaint: BACK OF HEAD PAIN,LEG WEAKNESS,TROUBLE WALKING History of Present Illness The patient is an 86 year old female who presents to the Emergency Room with complaints of worsening weakness starting this morning. She reports feeling weak in both legs. She has nausea. She had some chest pain this morning which went away. She had some trouble urinating recently which resolved yesterday. She was constipated and had to use an enema. She denies any fever, cough, or vomiting. Her balance is OK. She has not fallen. Her family member here with her states that she appears to be her normal color. She has been eating and drinking normally. She has experienced similar weakness before when her sodium was low. She has a history of A fib. Source of History: patient, family Onset: this morning Position: other (global) Quality: other (weakness) Timing: worsening Associated Symptoms: + chest pain, + nausea, No cough, No fevers, No vomiting Note: Pt reports trouble urinating, constipation. Review of Systems See HPI for pertinent positives & negatives. A total of 10 systems reviewed and were otherwise negative. Past Medical & Surgical Medical Problems: (1) Anemia, chronic disease (2) Anxiety (3) CKD (chronic kidney disease), stage IV (4) GERD (gastroesophageal reflux disease) (5) H/O echocardiogram (6) HLD (hyperlipidemia) (7) HTN (hypertension) (8) Hypothyroidism (9) Palpitations (10) SIADH (syndrome of inappropriate ADH production) Surgical Problems: (1) Hx of appendectomy (2) Hx of cholecystectomy (3) Hx of dilation and curettage (4) Status post total hip replacement, left Family History FHx: heart disease Hypertension Social History Smoking Status: Never Smoker Alcohol Use: none Drug Use: none Marital Status: Housing Status: lives with family Occupation Status: retired Current/Historical Medications Scheduled Aspirin (Aspirin Ec), 81 MG PO DAILY Atorvastatin (Lipitor), 10 MG PO HS Bumetanide (Bumetanide), 0.5 MG PO QAM Citalopram Hydrobromide (Citalopram Hydrobromide), 5 MG PO DAILY Epoetin Rafael (Procrit), 10,000 UNITS SC q 3 weeks Ferrous Sulfate (Ferrous Sulfate), 325 MG PO BID Levothyroxine Sodium (Synthroid), 88 MCG PO DAILY Magnesium Oxide (Mg Supplement (Magnesium Oxide), 1 TAB PO DAILY Metoprolol Tartrate (Lopressor), 12.5 MG PO BID Mirtazapine (Remeron), 7.5 MG PO HS Nifedipine (Nifedipine Er), 30 MG PO DAILY Pantoprazole (Protonix), 40 MG PO DAILY Ranitidine HCl (Ranitidine HCl), 150 MG PO QAM Scheduled PRN Docusate Sodium (Docusate Sodium), 1 CAP PO DAILY PRN for Constipation Lorazepam (Ativan), 1 MG PO BID PRN for Anxiety Allergies Coded Allergies: Penicillins (Verified Allergy, Intermediate, HIVES, 12/22/16) Iron Sucrose (Unverified Adverse Reaction, Mild, n&v, abd pain, 12/22/16) Physical Exam Vital Signs Date Time Temp Pulse Resp B/P Pulse Ox O2 Delivery O2 Flow Rate FiO2 12/27/16 12:25 52 18 155/43 97 Room Air 12/27/16 11:37 52 16 149/65 96 12/27/16 10:49 69 16 145/48 96 Room Air 12/27/16 09:52 61 20 128/47 98 Room Air 12/27/16 09:24 99 Room Air 12/27/16 09:22 63 12/27/16 09:09 36.4 75 20 129/49 95 Room Air Physical Exam GENERAL: Patient is in no acute distress. HEENT: No acute trauma, normocephalic atraumatic, mucous membranes dry, no nasal congestion, no scleral icterus. NECK: No stridor, no adenopathy, no meningismus, trachea is midline. LUNGS: Clear to auscultation bilaterally, no wheeze, no rhonchi, breath sounds equal. HEART: Irregular rhythm with a normal rate and a 2/6 systolic and diastolic murmur. ABDOMEN: Soft, nontender, bowel sounds positive, no hernias, no peritonitis. EXTREMITIES: No cyanosis or edema, full range of motion of all the joints without pain or difficulty, no signs for acute trauma. NEUROLOGIC: Oriented x 3, no acute motor or sensory deficits, no focal weakness. SKIN: No rash, no jaundice, no diaphoresis. Medical Decision & Procedures ER Provider Diagnostic Interpretation: X-ray results as stated below per interpretation by me and the radiologist: CHEST ONE VIEW PORTABLE CLINICAL HISTORY: EVALUATE ALTERED MENTAL STATUS/WEAKNESS COMPARISON STUDY: No previous studies for comparison. FINDINGS: The bones soft tissues and hemidiaphragms are normal. The cardiomediastinal silhouette is normal. The lungs are clear. The pulmonary vasculature is normal. IMPRESSION: Negative chest. Electronically signed by: Rob Mike M.D. 12/27/2016 9:57 AM Dictated Date/Time: 12/27/2016 9:57 AM Laboratory Results 12/27/16 09:25 Red Blood Count 3.11, Mean Corpuscular Volume 97.1, Mean Corpuscular Hemoglobin 33.8, Mean Corpuscular Hemoglobin Concent 34.8, Mean Platelet Volume 10.5, Neutrophils (%) (Auto) 50.1, Lymphocytes (%) (Auto) 35.3, Monocytes (%) (Auto) 10.8, Eosinophils (%) (Auto) 2.8, Basophils (%) (Auto) 0.8, Neutrophils # (Auto ) 2.66, Lymphocytes # (Auto) 1.87, Monocytes # (Auto) 0.57, Eosinophils # (Auto ) 0.15, Basophils # (Auto) 0.04 12/27/16 09:25 Test 12/27/16 09:25 12/27/16 09:50 White Blood Count 5.30 K/uL (4.8-10.8) Red Blood Count 3.11 M/uL (4.2-5.4) Hemoglobin 10.5 g/dL (12.0-16.0) Hematocrit 30.2 % (37-47) Mean Corpuscular Volume 97.1 fL (80-100) Mean Corpuscular Hemoglobin 33.8 pg (25-34) Mean Corpuscular Hemoglobin Concent 34.8 g/dl (32-36) Platelet Count 170 K/uL (130-400) Mean Platelet Volume 10.5 fL (7.4-10.4) Neutrophils (%) (Auto) 50.1 % Lymphocytes (%) (Auto) 35.3 % Monocytes (%) (Auto) 10.8 % Eosinophils (%) (Auto) 2.8 % Basophils (%) (Auto) 0.8 % Neutrophils # (Auto) 2.66 K/uL (1.4-6.5) Lymphocytes # (Auto) 1.87 K/uL (1.2-3.4) Monocytes # (Auto) 0.57 K/uL (0.11-0.59) Eosinophils # (Auto) 0.15 K/uL (0-0.5) Basophils # (Auto) 0.04 K/uL (0-0.2) RDW Standard Deviation 46.3 fL (36.4-46.3) RDW Coefficient of Variation 13.1 % (11.5-14.5) Immature Granulocyte % (Auto) 0.2 % Immature Granulocyte # (Auto) 0.01 K/uL (0.00-0.02) Anion Gap 7.0 mmol/L (3-11) Estimated GFR () 31.1 Estimated GFR (Non- 26.8 BUN/Creatinine Ratio 18.7 (10-20) Calcium Level 8.8 mg/dl (8.5-10.1) Magnesium Level 2.4 mg/dl (1.8-2.4) Total Bilirubin 0.4 mg/dl (0.2-1) Aspartate Amino Transf (AST/SGOT) 28 U/L (15-37) Alanine Aminotransferase (ALT/SGPT) 30 U/L (12-78) Alkaline Phosphatase 107 U/L (45-117) Troponin I < 0.015 ng/ml (0-0.045) Total Protein 7.6 gm/dl (6.4-8.2) Albumin 4.0 gm/dl (3.4-5.0) Globulin 3.6 gm/dl (2.5-4.0) Albumin/Globulin Ratio 1.1 (0.9-2) Thyroid Stimulating Hormone (TSH) 5.240 uIu/ml (0.300-4.500) Free Thyroxine 1.34 ng/dl (0.80-1.60) Urine Color YELLOW Urine Appearance CLEAR (CLEAR) Urine pH 5.0 (4.5-7.5) Urine Specific [place] 1.009 (1.000-1.030) Urine Protein NEG (NEG) Urine Glucose (UA) NEG (NEG) Urine Ketones NEG (NEG) Urine Occult Blood NEG (NEG) Urine Nitrite NEG (NEG) Urine Bilirubin NEG (NEG) Urine Urobilinogen NEG (NEG) Urine Leukocyte Esterase NEG (NEG) Laboratory results reviewed by me. Medications Administered Medications (Trade) Dose Ordered Sig/Jassi Route Start Time Stop Time Status Last Admin Dose Admin Lorazepam 1 mg 1 mg NOW STAT SL 12/27/16 09:24 12/27/16 09:28 DC 12/27/16 09:35 1 MG Sodium Chloride (Nss 1000ml) 250 ml @ 999 mls/hr Q16M STAT IV 12/27/16 09:24 12/27/16 09:39 DC 12/27/16 09:36 999 MLS/HR Ondansetron HCl 4 mg 4 mg NOW STAT IV 12/27/16 09:24 12/27/16 09:28 DC 12/27/16 09:35 4 MG Sodium Chloride 500 ml @ 999 mls/hr Q31M STAT IV 12/27/16 10:30 12/27/16 11:00 DC 12/27/16 10:51 999 MLS/HR Sodium Chloride (Nss 250ml) 250 ml @ 999 mls/hr Q16M STAT IV 12/27/16 11:14 12/27/16 11:29 DC 12/27/16 11:17 999 MLS/HR ECG Indication: weakness Rate (beats per minute): 60 Rhythm: sinus rhythm Findings: 1st degree AV block, PVC, no acute ischemic change ED Course 09: The patient was evaluated in room B12. A complete history and physical exam was performed. 0924: Zofran Inj 4 mg IV, NSS 250 ml @ 999 mls/hr IV, Lorazepam 1 mg SL. 1030: NSS 500 ml @ 999 mls/hr IV. 1112: I reevaluated the patient. I updated her on the results. She will receive more fluids. 1114: NSS 250 ml @ 999 mls/hr IV. 1214: I reevaluated the patient. I discussed results and discharge instructions : she verbalized understanding and agreement. The patient is ready for discharge. Medical Decision Differential diagnoses considered include dehydration, electrolyte imbalance, UTI, cardiac ischemia, pneumonia, stroke, debilitation. There is no leukocytosis. The patient is mildly anemic but this is baseline looking back at previous testing. Renal panel testing shows some renal failure , this is baseline. Sodium slightly low but improved from her last several laboratory tests. There was no hepatitis. The patient's thyroid testing is suggestive of using thyroid medication. Chest film does not show pneumonia or CHF. EKG shows a sinus rhythm, no acute ischemic change, a first-degree AV block was noted. Cardiac enzyme testing times one is not consistent with acute cardiac injury. Urinalysis does not show infection. On exam, there were no focal neurologic deficits. The patient was not febrile or toxic in appearance. The patient received about 1 L of IV saline, she is doing well. She was given her typical dose of oral Ativan. The patient presents with weakness. I think she was somewhat dehydrated. She also was anxious. Looking back at previous visits, she has had presentations similar to this in the past. The patient was reassured, she was encouraged to follow with her doctors office. She can of course return if worsening. Impression Primary Impression: Weakness Additional Impression: Dehydration Scribe Attestation The scribe's documentation has been prepared under my direction and personally reviewed by me in its entirety. I confirm that the note above accurately reflects all work, treatment, procedures, and medical decision making performed by me. Departure Information Dispostion Home / Self-Care Referrals Yogesh Quevedo III, M.D. (PCP) Forms HOME CARE DOCUMENTATION FORM, IMPORTANT VISIT INFORMATION Patient Instructions My [facility] [employer] Additional Instructions talk with your doctor about possibly starting salt tablets all care for now as before lab testing today was ok return for fever or worsening symptoms Problem Qualifiers
--- NOTE | 2016-12-27 09:59 | DIAGNOSTIC IMAGING REPORT ---
CHEST ONE VIEW PORTABLE CLINICAL HISTORY: EVALUATE ALTERED MENTAL STATUS/WEAKNESS COMPARISON STUDY: No previous studies for comparison. FINDINGS: The bones soft tissues and hemidiaphragms are normal. The cardiomediastinal silhouette is normal. The lungs are clear. The pulmonary vasculature is normal. IMPRESSION: Negative chest. Electronically signed by: Rob Mike M.D. 12/27/2016 9:57 AM Dictated Date/Time: 12/27/2016 9:57 AM
[2016-12-27 10:09] LABS: URINE APPEARANCE CLEAR (CLEAR); URINE BILIRUBIN NEG (NEG); URINE COLOR YELLOW; URINE NITRITE NEG (NEG); URINE SPECIFIC GRAVITY 1.009 (1.000-1.030); UROBILINOGEN NEG (NEG); ZZURINE CULT IF INDIC CATH NO
[2016-12-27 10:10] LABS: MANUAL MICROSCOPIC REQUIRED? NO; REVIEW REQ? NO
[2016-12-27 10:18] LABS: ALT/SGPT 30 U/L (12-78); AST/SGOT 28 U/L (15-37); BLOOD UREA NITROGEN 32 mg/dl (7-18); BUN/CREATININE RATIO 18.7 (10-20); CALCIUM 8.8 mg/dl (8.5-10.1); CARBON DIOXIDE 31 mmol/L (21-32); CHLORIDE 90 mmol/L (98-107); GLUCOSE 114 mg/dl (70-99); MAGNESIUM 2.4 mg/dl (1.8-2.4); POTASSIUM 3.6 mmol/L (3.5-5.1); SODIUM 128 mmol/L (136-145)
[2016-12-27 10:23] LABS: ALB/GLOB RATIO 1.1 (0.9-2); ALKALINE PHOSPHATASE 107 U/L (45-117)
[2016-12-27] MEDS ORDERED: SODIUM CHLORIDE 0.9% 500ML 500 ML IV STA (10:30)
[2016-12-27] MEDS ORDERED: CITA10TA4 PO (10:32)
[2016-12-27] MEDS ORDERED: LEVO88TA PO (10:32)
[2016-12-27] MEDS ORDERED: SODIUM CHLORIDE 0.9% 250ML 250 ML IV STA (11:14)
[2016-12-27 12:25] VITALS: BP 155/43; PULSE 52; O2SAT 97
[2017-02-03] MEDS ORDERED: CPR500 PO (16:45)
[2017-02-03] MEDS ORDERED: ESCI1TAB6 PO (16:45)
== END 2016-12-27 12:40 | disposition home or self-care (01) ==
LOC: C.EDB 09:06
DX: R53.1 Weakness (principal); E86.0 Dehydration; I44.0 Atrioventricular block, first degree; I12.9 Hypertensive chronic kidney disease with stage 1 through stage 4 chronic kidney disease, or unspecified chronic kidney disease; N18.4 Chronic kidney disease, stage 4 (severe); E78.5 Hyperlipidemia, unspecified; E03.9 Hypothyroidism, unspecified; F41.9 Anxiety disorder, unspecified; K21.9 Gastro-esophageal reflux disease without esophagitis; Z90.49 Acquired absence of other specified parts of digestive tract; Z98.890 Other specified postprocedural states; Z96.642 Presence of left artificial hip joint; Z79.82 Long term (current) use of aspirin; Z79.899 Other long term (current) drug therapy; Z88.0 Allergy status to penicillin; Z91.018 Allergy to other foods; Z82.49 Family history of ischemic heart disease and other diseases of the circulatory system

== ENCOUNTER 2016-12-30 09:08 | Emergency (ER) | payer OTHER ==
[~2016-12-30] VITALS: Ht 157.5 cm; Wt 55.8 kg
[~2016-12-30 09:08] MED LIST changes: +CITA10TA4 PO; -LEVO75TA5 PO; +LEVO88TA PO
[2016-12-30 09:18] VITALS: TEMP 36.5; Ht 157.5 cm; Wt 55.8 kg
--- NOTE | 2016-12-30 09:18 | EMERGENCY ROOM VISIT NOTE ---
History Report prepared by Unique: Nena Erazo Under the Supervision of: Dr. Richard Richardson D.O. First contact with patient: 09:09 Chief Complaint: ABDOMINAL PAIN Stated Complaint: ABDOMINAL PAIN History of Present Illness The patient is an 86 year old female who presents to the Emergency Room with complaints of constant constipation beginning 3 days prior to arrival. The patient states that last night she did take laxatives to try and help move her bowels. She notes some abdominal pain. The patient has taken stool softeners with no relief of her symptoms. The patient was in the ED a few days ago for low sodium levels. She denies vomiting, back pain or new medications. Source of History: patient Onset: 3 days [employer] Position: other (global) Quality: other (constipated) Timing: constant Associated Symptoms: + abdominal pain, No back pain, No vomiting Review of Systems See HPI for pertinent positives & negatives. A total of 10 systems reviewed and were otherwise negative. Past Medical & Surgical Medical Problems: (1) Anemia, chronic disease (2) Anxiety (3) CKD (chronic kidney disease), stage IV (4) GERD (gastroesophageal reflux disease) (5) H/O echocardiogram (6) HLD (hyperlipidemia) (7) HTN (hypertension) (8) Hypothyroidism (9) Palpitations (10) SIADH (syndrome of inappropriate ADH production) Surgical Problems: (1) Hx of appendectomy (2) Hx of cholecystectomy (3) Hx of dilation and curettage (4) Status post total hip replacement, left Family History FHx: heart disease Hypertension Social History Smoking Status: Never Smoker Alcohol Use: none Drug Use: none Marital Status: Housing Status: lives with family Occupation Status: retired Current/Historical Medications Scheduled Aspirin (Aspirin Ec), 81 MG PO DAILY Atorvastatin (Lipitor), 10 MG PO HS Bumetanide (Bumetanide), 0.5 MG PO QAM Citalopram Hydrobromide (Citalopram Hydrobromide), 5 MG PO DAILY Epoetin Rafael (Procrit), 10,000 UNITS SC q 3 weeks Ferrous Sulfate (Ferrous Sulfate), 325 MG PO BID Levothyroxine Sodium (Synthroid), 88 MCG PO DAILY Magnesium Oxide (Mg Supplement (Magnesium Oxide), 1 TAB PO DAILY Metoprolol Tartrate (Lopressor), 12.5 MG PO BID Mirtazapine (Remeron), 7.5 MG PO HS Nifedipine (Nifedipine Er), 30 MG PO DAILY Pantoprazole (Protonix), 40 MG PO DAILY Polyethylene Glycol 3350 (Miralax), 17 GM PO DAILY Ranitidine HCl (Ranitidine HCl), 150 MG PO QAM Scheduled PRN Docusate Sodium (Docusate Sodium), 1 CAP PO DAILY PRN for Constipation Lorazepam (Ativan), 1 MG PO BID PRN for Anxiety Allergies Coded Allergies: Penicillins (Verified Allergy, Intermediate, HIVES, 12/22/16) Iron Sucrose (Unverified Adverse Reaction, Mild, n&v, abd pain, 12/22/16) Physical Exam Vital Signs Date Time Temp Pulse Resp B/P Pulse Ox O2 Delivery O2 Flow Rate FiO2 12/30/16 12:52 64 16 147/62 97 Room Air 12/30/16 11:31 61 16 158/54 97 Room Air 12/30/16 10:26 60 18 148/57 97 Room Air 12/30/16 09:18 36.5 69 18 158/63 96 Room Air Physical Exam GENERAL: Patient is awake, alert, and in no acute distress. Patient is resting comfortably and showing no signs of anxiety EYES: The conjunctivae are clear. The pupils are round and reactive. EARS, NOSE, MOUTH AND THROAT: The nose is without any evidence of any deformity. Mucous membranes are moist tongue is midline NECK: The neck is nontender and supple. RESPIRATORY: Normal respiratory effort is noted there is no evidence of wheezing rhonchi or rales CARDIOVASCULAR: Distant but regular rate and rhythm noted. Systolic murmur noted to auscultation. Rubs or gallops normal S1 normal S2 GASTROINTESTINAL: The abdomen is soft but distended, no specific guarding or rigidity. Bowel sounds are present in all quadrants. Abdomen is nontender MUSCULOSKELETAL/EXTREMITIES: There is no evidence of gross deformity full range of motion is noted in the hips and shoulders SKIN: Trace pitting edema bilaterally. There is no obvious evidence of any rash. There are no petechiae, pallor or cyanosis noted. NEUROLOGIC: Patient is awake alert and oriented x3. Medical Decision & Procedures ER Provider Diagnostic Interpretation: X-ray results as stated below per interpretation by me and the radiologist. PA CHEST RADIOGRAPH AND UPRIGHT AND SUPINE AP RADIOGRAPHS OF THE ABDOMEN CLINICAL HISTORY: Constipation. Abdominal pain. COMPARISON STUDY: CT of the abdomen and pelvis August 21, [address] August 22, 2016. FINDINGS: Incidental note is made of S-shaped scoliosis of the thoracolumbar spine or left hip arthroplasty. Cardiomediastinal silhouette is stable. There is no evidence of pulmonary edema. Linear left basilar opacity suggests atelectasis or scarring. There is no free air. The bowel gas pattern is normal. There is a sxwf-ud-yygbozsr amount stool within the colon. There is minimal stool within the rectum. IMPRESSION: 1. No free air or evidence of bowel obstruction. 2. Mild to moderate amount of stool within the colon. Minimal stool within the rectum. Electronically signed by: Hayder Barber M.D. 12/30/2016 9:54 AM Dictated Date/Time: 12/30/2016 9:48 AM Medications Administered Medications (Trade) Dose Ordered Sig/Jassi Route Start Time Stop Time Status Last Admin Dose Admin Polyethylene (Miralax Powder Packet) 17 gm ONE STAT PO 12/30/16 10:20 12/30/16 10:21 DC 12/30/16 10:39 17 GM ED Course 0916: The patient was evaluated in room A9. A complete history and physical examination were performed. 1020: Miralax Powder Packet 17 gm PO. 1145: Upon reevaluation, the patient is hemodynamically stable. I discussed the results and treatment plan with her. She verbalized agreement of the treatment plan. She was discharged home. Medical Decision Differential diagnosis: Etiologies such as appendicitis, diverticulitis, PUD, biliary pathology, UTI, pancreatitis, obstruction, mesenteric ischemia, aortic pathology, infections, inflammatory bowel disease, renal colic, as well as others were entertained. Nursing notes reviewed. Patient's previous electronic medical records reviewed. The patient is an 86-year-old female who presented to the emergency department for an evaluation of constipation. The patient has chronic constipation and takes iron supplementation. She has not been started on any new medications. She was not febrile. She was seen in our facility recently for different complaints over the last 2 months. The patient's physical exam was not consistent with an acute surgical abdomen. X-rays did not reveal any significant stool in the rectum but did show some degree of constipation. I discussed the patient's review graphic studies with her. I recommended starting the patient on Viktoriya lax. Currently there are no dosage adjustments provided on up-to-date for Viktoriya lax patients with renal sufficiency. I discussed her case with the emergency Department manager of case. Currently she has a scheduled appointment with her doctor on of this week. She was encouraged to keep this appointment and continue all medications as prescribed. Otherwise she was encouraged to return to the emergency department immediately if symptoms change worsen or the need arises. Impression Primary Impression: Constipation Scribe Attestation The scribe's documentation has been prepared under my direction and personally reviewed by me in its entirety. I confirm that the note above accurately reflects all work, treatment, procedures, and medical decision making performed by me. Departure Information Dispostion Home / Self-Care Prescriptions Polyethylene Glycol 3350 (MIRALAX) 1 Pow Pow 17 GM PO DAILY, #527 GM Prov: Richard Richardson, 12/30/16 Referrals Yogesh Quevedo III, M.D. (PCP) Forms HOME CARE DOCUMENTATION FORM, IMPORTANT VISIT INFORMATION Patient Instructions Constipation, My [facility] Additional Instructions Continue all medications as prescribed. Drink plenty clear liquids. Follow-up with your family this week as scheduled.
--- NOTE | 2016-12-30 09:56 | DIAGNOSTIC IMAGING REPORT ---
PA CHEST RADIOGRAPH AND UPRIGHT AND SUPINE AP RADIOGRAPHS OF THE ABDOMEN CLINICAL HISTORY: Constipation. Abdominal pain. COMPARISON STUDY: CT of the abdomen and pelvis August 21, [address] August 22, 2016. FINDINGS: Incidental note is made of S-shaped scoliosis of the thoracolumbar spine or left hip arthroplasty. Cardiomediastinal silhouette is stable. There is no evidence of pulmonary edema. Linear left basilar opacity suggests atelectasis or scarring. There is no free air. The bowel gas pattern is normal. There is a bxye-zo-kupyuiqy amount stool within the colon. There is minimal stool within the rectum. IMPRESSION: 1. No free air or evidence of bowel obstruction. 2. Mild to moderate amount of stool within the colon. Minimal stool within the rectum. Electronically signed by: Hayder Barber M.D. 12/30/2016 9:54 AM Dictated Date/Time: 12/30/2016 9:48 AM
[2016-12-30] MEDS ORDERED: POLYETHYLENE (MIRALAX) 17 GM PACK PO STA (10:20)
[2016-12-30] MEDS ORDERED: POLY335019 PO (12:11)
[2016-12-30 12:52] VITALS: BP 147/62; PULSE 64; O2SAT 97
[2017-02-03] MEDS ORDERED: CPR500 PO (16:45)
[2017-02-03] MEDS ORDERED: ESCI1TAB6 PO (16:45)
== END 2016-12-30 12:53 | disposition home or self-care (01) ==
LOC: EDBD 09:08 → C.EDA 09:09
DX: K59.00 Constipation, unspecified (principal); E78.5 Hyperlipidemia, unspecified; I12.9 Hypertensive chronic kidney disease with stage 1 through stage 4 chronic kidney disease, or unspecified chronic kidney disease; N18.4 Chronic kidney disease, stage 4 (severe); E03.9 Hypothyroidism, unspecified; F41.9 Anxiety disorder, unspecified; Z90.49 Acquired absence of other specified parts of digestive tract; Z96.642 Presence of left artificial hip joint; Z79.82 Long term (current) use of aspirin; Z79.899 Other long term (current) drug therapy; Z88.0 Allergy status to penicillin; Z91.018 Allergy to other foods; Z82.49 Family history of ischemic heart disease and other diseases of the circulatory system

== ENCOUNTER 2016-12-30 17:50 | Emergency (ER) | payer OTHER ==
[~2016-12-30 17:50] MED LIST changes: +POLY335019 PO
--- NOTE | 2016-12-30 18:21 | EMERGENCY ROOM VISIT NOTE ---
History Report prepared by Tammyibmargy: Kyleigh Padilla Under the Supervision of: Yolanda BurlesonO. First contact with patient: 17:53 Chief Complaint: GI ASSESSMENT Stated Complaint: PROBLEM WITH BOWEL MOVEMENT AND URINARY MOVEMENT History of Present Illness The patient is a 86 year old female who presents to the Emergency Room with complaints of persistent inability to urinate starting this afternoon. Her last normal urinary output was this afternoon but she is unable to urinate when she had an urge to do so. She also complains of constipation. Her last normal bowel movement was about 3-4 days ago. She normally has a bowel movement every 2 days. She took MiraLAX this morning without relief. She reports some diffuse abdominal pain starting today. She notes nausea but denies vomiting. She rates a symptom intensity of 10/10. She has a history of appendectomy and cholecystectomy. She denies any history of urinary retention. Pt denies headache , change in vision, fevers, chest pain, shortness of breath, diarrhea, pain with urination, and melena. Source of History: patient Onset: this afternoon Position: other (global) Symptom Intensity: 10/10 Quality: other (inability to urinate) Timing: other (persistent) Associated Symptoms: + abdominal pain, + nausea, No SOB, No chest pain, No fevers, No headache, No urinary symptoms, No vomiting Review of Systems See HPI for pertinent positives & negatives. A total of 10 systems reviewed and were otherwise negative. Past Medical & Surgical Medical Problems: (1) Anemia, chronic disease (2) Anxiety (3) CKD (chronic kidney disease), stage IV (4) GERD (gastroesophageal reflux disease) (5) H/O echocardiogram (6) HLD (hyperlipidemia) (7) HTN (hypertension) (8) Hypothyroidism (9) Palpitations (10) SIADH (syndrome of inappropriate ADH production) Surgical Problems: (1) Hx of appendectomy (2) Hx of cholecystectomy (3) Hx of dilation and curettage (4) Status post total hip replacement, left Family History FHx: heart disease Hypertension Social History Smoking Status: Never Smoker Alcohol Use: none Drug Use: none Marital Status: Housing Status: lives with family Occupation Status: retired Current/Historical Medications Scheduled Aspirin (Aspirin Ec), 81 MG PO DAILY Atorvastatin (Lipitor), 10 MG PO HS Bumetanide (Bumetanide), 0.5 MG PO QAM Citalopram Hydrobromide (Citalopram Hydrobromide), 5 MG PO DAILY Epoetin Rafael (Procrit), 10,000 UNITS SC q 3 weeks Ferrous Sulfate (Ferrous Sulfate), 325 MG PO BID Levothyroxine Sodium (Synthroid), 88 MCG PO DAILY Magnesium Oxide (Mg Supplement (Magnesium Oxide), 1 TAB PO DAILY Metoprolol Tartrate (Lopressor), 12.5 MG PO BID Mirtazapine (Remeron), 7.5 MG PO HS Nifedipine (Nifedipine Er), 30 MG PO DAILY Pantoprazole (Protonix), 40 MG PO DAILY Polyethylene Glycol 3350 (Miralax), 17 GM PO DAILY Ranitidine HCl (Ranitidine HCl), 150 MG PO QAM Scheduled PRN Docusate Sodium (Docusate Sodium), 1 CAP PO DAILY PRN for Constipation Lorazepam (Ativan), 1 MG PO BID PRN for Anxiety Allergies Coded Allergies: Penicillins (Verified Allergy, Intermediate, HIVES, 12/22/16) Iron Sucrose (Unverified Adverse Reaction, Mild, n&v, abd pain, 12/22/16) Physical Exam Vital Signs Date Time Temp Pulse Resp B/P Pulse Ox O2 Delivery O2 Flow Rate FiO2 12/30/16 21:25 36.5 67 18 186/48 97 12/30/16 19:50 64 18 186/56 99 12/30/16 17:51 36.5 73 20 158/56 98 Room Air Physical Exam GENERAL: Disheveled, chronically ill-appearing, no distress, non-toxic EYE EXAM: normal conjunctiva OROPHARYNX: no exudate, no erythema, lips, buccal mucosa, and tongue normal and mucous membranes are moist NECK: supple, no nuchal rigidity, no adenopathy, non-tender LUNGS: Clear to auscultation. Normal chest wall mechanics HEART: Systolic ejection murmur. ABDOMEN: abdomen soft, faint tenderness to the periumbilical region, normo- active bowel sounds, no masses, no rebound or guarding. BACK: Back is symmetrical on inspection and there is no deformity, no midline tenderness, no CVA tenderness. SKIN: no rashes and no bruising UPPER EXTREMITIES: upper extremities are grossly normal. LOWER EXTREMITIES: No pitting edema. NEURO EXAM: Normal sensorium, cranial nerves II-XII grossly intact, normal speech, no gross weakness of arms, no gross weakness of legs. Medical Decision & Procedures ER Provider Diagnostic Interpretation: CT:Per my review, radiologist interpretation. ABDOMEN AND PELVIS CT WITH IV CONTRAST CT DOSE: 240.02 mGy.cm HISTORY: Lower abdominal pain. TECHNIQUE: Multiaxial CT images of the abdomen and pelvis were performed following the use of intravenous contrast. COMPARISON STUDY: Abdomen and pelvis CT 08/21/2016. FINDINGS: Bibasilar linear densities favor subsegmental atelectasis. Trace left pleural effusion. The heart remains enlarged. No pericardial effusion. No pneumoperitoneum. No pneumatosis. Left total hip arthroplasty. Dextroscoliosis with degenerative changes within the lumbar spine. The liver, spleen, adrenal glands, and pancreas are unremarkable. Bilateral cortical renal scarring. No hydronephrosis. Multiple bilateral renal hypodense lesions are not significantly changed. No retroperitoneal lymphadenopathy. Pelvic structures are suboptimally evaluated due to metallic artifact and the left hip prosthesis. However, the bladder appears unremarkable. There is pelvic floor collapse. Colonic diverticulosis. No bowel wall thickening or obstruction. Cholecystectomy. IMPRESSION: 1. No bowel wall thickening or obstruction. 2. No hydronephrosis. 3. Trace left pleural effusion. 4. Stable cardiomegaly. 5. Colonic diverticulosis. Electronically signed by: Akash Santoyo M.D. 12/30/2016 9:02 PM Dictated Date/Time: 12/30/2016 8:56 PM Laboratory Results 12/30/16 19:35 Red Blood Count 2.69, Mean Corpuscular Volume 97.8, Mean Corpuscular Hemoglobin 34.6, Mean Corpuscular Hemoglobin Concent 35.4, Mean Platelet Volume 10.8, Neutrophils (%) (Auto) 52.2, Lymphocytes (%) (Auto) 33.3, Monocytes (%) (Auto) 12.3, Eosinophils (%) (Auto) 1.7, Basophils (%) (Auto) 0.5, Neutrophils # (Auto ) 2.21, Lymphocytes # (Auto) 1.41, Monocytes # (Auto) 0.52, Eosinophils # (Auto ) 0.07, Basophils # (Auto) 0.02 12/30/16 19:35 12/30/16 20:17 Test 12/30/16 18:40 12/30/16 19:35 12/30/16 20:17 Urine Color YELLOW Urine Appearance CLEAR (CLEAR) Urine pH 7.5 (4.5-7.5) Urine Specific [place] 1.008 (1.000-1.030) Urine Protein 1+ (NEG) Urine Glucose (UA) NEG (NEG) Urine Ketones NEG (NEG) Urine Occult Blood TRACE (NEG) Urine Nitrite NEG (NEG) Urine Bilirubin NEG (NEG) Urine Urobilinogen NEG (NEG) Urine Leukocyte Esterase SMALL (NEG) Urine WBC (Auto) 1-5 /hpf (0-5) Urine RBC (Auto) 0-4 /hpf (0-4) Urine Hyaline Casts (Auto) 0 /lpf (0-5) Urine Epithelial Cells (Auto) 10-20 /lpf (0-5) Urine Bacteria (Auto) NEG (NEG) White Blood Count 4.23 K/uL (4.8-10.8) Red Blood Count 2.69 M/uL (4.2-5.4) Hemoglobin 9.3 g/dL (12.0-16.0) Hematocrit 26.3 % (37-47) Mean Corpuscular Volume 97.8 fL (80-100) Mean Corpuscular Hemoglobin 34.6 pg (25-34) Mean Corpuscular Hemoglobin Concent 35.4 g/dl (32-36) Platelet Count 167 K/uL (130-400) Mean Platelet Volume 10.8 fL (7.4-10.4) Neutrophils (%) (Auto) 52.2 % Lymphocytes (%) (Auto) 33.3 % Monocytes (%) (Auto) 12.3 % Eosinophils (%) (Auto) 1.7 % Basophils (%) (Auto) 0.5 % Neutrophils # (Auto) 2.21 K/uL (1.4-6.5) Lymphocytes # (Auto) 1.41 K/uL (1.2-3.4) Monocytes # (Auto) 0.52 K/uL (0.11-0.59) Eosinophils # (Auto) 0.07 K/uL (0-0.5) Basophils # (Auto) 0.02 K/uL (0-0.2) RDW Standard Deviation 46.7 fL (36.4-46.3) RDW Coefficient of Variation 13.2 % (11.5-14.5) Immature Granulocyte % (Auto) 0.0 % Immature Granulocyte # (Auto) 0.00 K/uL (0.00-0.02) Anion Gap 7.0 mmol/L (3-11) Estimated GFR () 33.5 Estimated GFR (Non- 28.9 BUN/Creatinine Ratio 14.7 (10-20) Calcium Level 8.5 mg/dl (8.5-10.1) Total Bilirubin 0.4 mg/dl (0.2-1) Alanine Aminotransferase (ALT/SGPT) 31 U/L (12-78) Alkaline Phosphatase 92 U/L (45-117) Total Protein 6.9 gm/dl (6.4-8.2) Albumin 3.5 gm/dl (3.4-5.0) Lipase 194 U/L (73-393) Direct Bilirubin 0.2 mg/dl (0-0.2) Aspartate Amino Transf (AST/SGOT) 27 U/L (15-37) Laboratory results per my review. Procedure Bladder ultrasound shows partially distended bladder, no surrounding fluid. ED Course ED COURSE: Vital signs were reviewed and showed normal. The patients medical record was reviewed The above diagnostic studies were performed and reviewed. ED treatments and interventions as stated above. 1753: The patient was evaluated in room A09B. A complete history and physical examination was performed. 1847: The patient will be straight cath for 150 mls. 2049: I reevaluated the patient who is resting comfortably. 2103: I updated the patient and her family. Family notes that did have a bowel movement and urinated in the Emergency Room. The patient is complaining of what she is going to do when she goes home and cannot pee. The patient and her family understand and agree with the treatment plan. Based on the patients age, coexisting illnesses, exam and lab findings the decision to treat as an outpatient was made. The patient remained stable while under my care. The patient appeared well at the time of discharge. Medical Decision Differential diagnoses includes but is not limited to gastritis, peptic ulcer disease, GERD, pancreatitis, small bowel obstruction, acute coronary syndrome, pericarditis, ischemic bowel, irritable bowel disease, irritable bowel syndrome , diverticulitis, malignancy, hernia, urinary tract infection, perforation, trauma, infectious. Patient is an 86-year-old female who presents the ER for inability urinate along with abdominal pain. Patient completely benign exam. She is very anxious. CBC shows a chronic anemia. BMP shows creatinine of 1.6 which is improved from previous along with a sodium of 128 which is consistent with her baseline. She was straight cathed for only 150 ML's. Following this she voided on several separate occasions. She also did have a bowel movement as well. CT of her abdomen pelvis was negative. Patient continually stated what she noted to which she gets home and she can't urinate. I had a long conversation with her daughter. Patient was discharged with anxiety and resolving constipation. Discussed with Pt concerning signs and symptoms to watch out for. Pt was instructed to follow up with their PCP and discussed with the patient their option to return to the ED at anytime for persistent or worsening symptoms. The appropriate anticipatory guidance and out-patient management, including indications for return to the emergency department, were explained at length to the patient and understood. Impression Primary Impression: Abdominal pain Additional Impressions: Anemia CKD (chronic kidney disease), stage IV Scribe Attestation The scribe's documentation has been prepared under my direction and personally reviewed by me in its entirety. I confirm that the note above accurately reflects all work, treatment, procedures, and medical decision making performed by me. Departure Information Dispostion Home / Self-Care Referrals Yogesh Quevedo III, M.D. (PCP) Forms HOME CARE DOCUMENTATION FORM, IMPORTANT VISIT INFORMATION Patient Instructions Abdominal Pain - [facility], [facility] Additional Instructions Please follow up with your primary care doctor with in the next 24 hours. Any worsening of your symptoms, please return to the ED immediately. This includes fevers greater than 100.4, worsening belly pain, passing out, chest pain, shortness breath, or any other concerning signs or symptoms from your standpoint. Problem Qualifiers Primary Impression: Abdominal pain Abdominal location: unspecified location Qualified Codes: R10.9 - Unspecified abdominal pain Additional Impressions: Anemia Anemia type: unspecified type Qualified Codes: D64.9 - Anemia, unspecified
[2016-12-30 18:59] LABS: URINE APPEARANCE CLEAR (CLEAR); URINE BILIRUBIN NEG (NEG); URINE COLOR YELLOW; URINE NITRITE NEG (NEG); URINE PH 7.5 (4.5-7.5); URINE SPECIFIC GRAVITY 1.008 (1.000-1.030); UROBILINOGEN NEG (NEG); ZZURINE CULT IF INDIC CATH NO
[2016-12-30 19:15] LABS: MANUAL MICROSCOPIC REQUIRED? NO; REVIEW REQ? NO; SULFASALICYLIC ACID POS (NEG)
[2016-12-30 19:46] LABS: BASO % 0.5 %; BASO ABS # 0.02 K/uL (0-0.2); COMPLETE YES; EOS % 1.7 %; HEMATOCRIT 26.3 % (37-47); LYMPH % 33.3 %; LYMPH ABS # 1.41 K/uL (1.2-3.4); MEAN CELL VOLUME 97.8 fL (80-100); MEAN CORPUSCULAR HEMOGLOBIN 34.6 pg (25-34); MEAN CORPUSCULAR HGB CONC 35.4 g/dl (32-36); MEAN PLATELET VOLUME 10.8 fL (7.4-10.4); MONO % 12.3 %; NEUT % 52.2 %; PLATELET COUNT 167 K/uL (130-400); RED BLOOD COUNT 2.69 M/uL (4.2-5.4); WHITE BLOOD COUNT 4.23 K/uL (4.8-10.8)
[2016-12-30 20:06] LABS: ALT/SGPT 31 U/L (12-78); BLOOD UREA NITROGEN 24 mg/dl (7-18); BUN/CREATININE RATIO 14.7 (10-20); CALCIUM 8.5 mg/dl (8.5-10.1); CARBON DIOXIDE 30 mmol/L (21-32); CHLORIDE 91 mmol/L (98-107); GLUCOSE 97 mg/dl (70-99); SODIUM 128 mmol/L (136-145)
[2016-12-30 20:07] LABS: ALKALINE PHOSPHATASE 92 U/L (45-117)
[2016-12-30 20:38] LABS: POTASSIUM 4.3 mmol/L (3.5-5.1)
[2016-12-30] MEDS ORDERED: OPTIRAY 320 IV PRN (21:00)
--- NOTE | 2016-12-30 21:04 | DIAGNOSTIC IMAGING REPORT ---
ABDOMEN AND PELVIS CT WITH IV CONTRAST CT DOSE: 240.02 mGy.cm HISTORY: Lower abdominal pain. TECHNIQUE: Multiaxial CT images of the abdomen and pelvis were performed following the use of intravenous contrast. COMPARISON STUDY: Abdomen and pelvis CT 08/21/2016. FINDINGS: Bibasilar linear densities favor subsegmental atelectasis. Trace left pleural effusion. The heart remains enlarged. No pericardial effusion. No pneumoperitoneum. No pneumatosis. Left total hip arthroplasty. Dextroscoliosis with degenerative changes within the lumbar spine. The liver, spleen, adrenal glands, and pancreas are unremarkable. Bilateral cortical renal scarring. No hydronephrosis. Multiple bilateral renal hypodense lesions are not significantly changed. No retroperitoneal lymphadenopathy. Pelvic structures are suboptimally evaluated due to metallic artifact and the left hip prosthesis. However, the bladder appears unremarkable. There is pelvic floor collapse. Colonic diverticulosis. No bowel wall thickening or obstruction. Cholecystectomy. IMPRESSION: 1. No bowel wall thickening or obstruction. 2. No hydronephrosis. 3. Trace left pleural effusion. 4. Stable cardiomegaly. 5. Colonic diverticulosis. Electronically signed by: Akash Santoyo M.D. 12/30/2016 9:02 PM Dictated Date/Time: 12/30/2016 8:56 PM
[2016-12-30 21:25] VITALS: BP 186/48; PULSE 67; TEMP 36.5; O2SAT 97
[2017-02-03] MEDS ORDERED: CPR500 PO (16:45)
[2017-02-03] MEDS ORDERED: ESCI1TAB6 PO (16:45)
== END 2016-12-30 21:26 | disposition home or self-care (01) ==
LOC: C.EDB 17:50 → C.EDA 21:26
DX: I12.9 Hypertensive chronic kidney disease with stage 1 through stage 4 chronic kidney disease, or unspecified chronic kidney disease (principal); N18.4 Chronic kidney disease, stage 4 (severe); E78.5 Hyperlipidemia, unspecified; E03.9 Hypothyroidism, unspecified; F41.9 Anxiety disorder, unspecified; D64.9 Anemia, unspecified; Z90.49 Acquired absence of other specified parts of digestive tract; Z96.642 Presence of left artificial hip joint; Z98.890 Other specified postprocedural states; Z79.82 Long term (current) use of aspirin; Z79.899 Other long term (current) drug therapy; Z88.0 Allergy status to penicillin; Z91.018 Allergy to other foods; Z82.49 Family history of ischemic heart disease and other diseases of the circulatory system

== ENCOUNTER 2017-01-07 05:25 | Emergency (ER) | payer OTHER ==
[~2017-01-07] VITALS: Ht 149.9 cm; Wt 56.9 kg
[2017-01-07 05:41] VITALS: TEMP 37.1; O2SAT 97; Ht 149.9 cm; Wt 56.9 kg
--- NOTE | 2017-01-07 05:42 | EMERGENCY ROOM VISIT NOTE ---
ED Visit Note First contact with patient: 05:22 Agree with physician assistants workup. Patient has a history of anxiety multiple emergency department visits in the past month for multiple complaints. Tonight states that she had palpitations denies any current chest pain shortness of breath. Patient has a history of anxiety did take anxiety meds prior to arrival. I agree with the evaluation Problem List Medical Problems: (1) Anemia, chronic disease Status: Chronic (2) Anxiety Status: Chronic (3) CKD (chronic kidney disease), stage IV Status: Chronic (4) GERD (gastroesophageal reflux disease) Status: Chronic (5) H/O echocardiogram Permanent Comment: 03/2015 - EF 60-65%, moderate to severe aortic regurgitation Status: Chronic (6) HLD (hyperlipidemia) Status: Chronic (7) HTN (hypertension) Status: Chronic (8) Hypothyroidism Status: Chronic (9) Palpitations Status: Chronic (10) SIADH (syndrome of inappropriate ADH production) Status: Chronic Surgical Problems: (1) Hx of appendectomy Status: Chronic (2) Hx of cholecystectomy Status: Chronic (3) Hx of dilation and curettage Status: Chronic (4) Status post total hip replacement, left Status: Chronic Current/Historical Medications Scheduled Aspirin (Aspirin Ec), 81 MG PO DAILY Atorvastatin (Lipitor), 10 MG PO HS Bumetanide (Bumetanide), 0.5 MG PO QAM Citalopram Hydrobromide (Citalopram Hydrobromide), 5 MG PO DAILY Epoetin Rafael (Procrit), 10,000 UNITS SC q 3 weeks Ferrous Sulfate (Ferrous Sulfate), 325 MG PO BID Levothyroxine Sodium (Synthroid), 88 MCG PO DAILY Magnesium Oxide (Mg Supplement (Magnesium Oxide), 1 TAB PO DAILY Metoprolol Tartrate (Lopressor), 12.5 MG PO BID Mirtazapine (Remeron), 7.5 MG PO HS Nifedipine (Nifedipine Er), 30 MG PO DAILY Pantoprazole (Protonix), 40 MG PO DAILY Polyethylene Glycol 3350 (Miralax), 17 GM PO DAILY Ranitidine HCl (Ranitidine HCl), 150 MG PO QAM Scheduled PRN Docusate Sodium (Docusate Sodium), 1 CAP PO DAILY PRN for Constipation Lorazepam (Ativan), 1 MG PO BID PRN for Anxiety Allergies Coded Allergies: Penicillins (Verified Allergy, Intermediate, HIVES, 5/15/17) Iron Sucrose (Unverified Adverse Reaction, Mild, n&v, abd pain, 12/22/16) Laboratory Results Test 01/07/17 05:25 Departure Information Referrals Yogesh Quevedo III, M.D. (PCP) Patient Instructions My [facility]
[2017-01-07 05:56] LABS: BASO % 0.7 %; BASO ABS # 0.03 K/uL (0-0.2); COMPLETE YES; HEMATOCRIT 26.3 % (37-47); LYMPH % 44.7 %; LYMPH ABS # 1.92 K/uL (1.2-3.4); MEAN CELL VOLUME 97.8 fL (80-100); MEAN CORPUSCULAR HEMOGLOBIN 33.8 pg (25-34); MEAN CORPUSCULAR HGB CONC 34.6 g/dl (32-36); MEAN PLATELET VOLUME 10.2 fL (7.4-10.4); MONO % 7.7 %; NEUT % 43.9 %; PLATELET COUNT 156 K/uL (130-400); RED BLOOD COUNT 2.69 M/uL (4.2-5.4)
[2017-01-07] MEDS ORDERED: RANI150T3 PO (06:05)
[2017-01-07] MEDS ORDERED: BUME1TAB PO (06:05)
[2017-01-07] MEDS ORDERED: POLY335019 PO (06:05)
[2017-01-07] MEDS ORDERED: METO25TA56 PO (06:05)
[2017-01-07 06:06] LABS: ISTAT CREATININE 1.9 mg/dl (0.6-1.3); ISTAT HEMOGLOBIN 9.2 g/dl (12.0-16.0); ISTAT IONIZED CALCIUM 1.15 mmol/l (1.12-1.32)
[2017-01-07] MEDS ORDERED: ESCI10TA17 PO (06:09)
[2017-01-07 06:16] LABS: ALT/SGPT 29 U/L (12-78); AST/SGOT 25 U/L (15-37); BLOOD UREA NITROGEN 32 mg/dl (7-18); BUN/CREATININE RATIO 16.9 (10-20); CALCIUM 8.6 mg/dl (8.5-10.1); CARBON DIOXIDE 29 mmol/L (21-32); CHLORIDE 92 mmol/L (98-107); GLUCOSE 88 mg/dl (70-99); MAGNESIUM 2.7 mg/dl (1.8-2.4); POTASSIUM 4.1 mmol/L (3.5-5.1); SODIUM 126 mmol/L (136-145)
[2017-01-07 06:28] LABS: ALKALINE PHOSPHATASE 120 U/L (45-117)
--- NOTE | 2017-01-07 06:29 | EMERGENCY ROOM VISIT NOTE ---
History First contact with patient: 05:22 Chief Complaint: TACHYCARDIA Stated Complaint: TACHYCARDIAC History of Present Illness The patient is a 86 year old female who presents to the Emergency Room with complaints of intermittent palpitations this morning after taking her first dose of Lexapro last night. Patient had palpitations before. She follows with cardiology at [facility]. Patient denies chest pain, dyspnea, fever, chills, cough, congestion, abdominal pain. She is tolerating by mouth fluids and food. Patient states she felt fine going to bed last night. She lives at home with her . Patient is well known to this ER. This is her fifth visit this month. Review of Systems See HPI for pertinent positives & negatives. A total of 10 systems reviewed and were otherwise negative. Past Medical/Surgical History Medical Problems: (1) Anemia, chronic disease (2) Anxiety (3) CKD (chronic kidney disease), stage IV (4) GERD (gastroesophageal reflux disease) (5) H/O echocardiogram (6) HLD (hyperlipidemia) (7) HTN (hypertension) (8) Hypothyroidism (9) Palpitations (10) SIADH (syndrome of inappropriate ADH production) Surgical Problems: (1) Hx of appendectomy (2) Hx of cholecystectomy (3) Hx of dilation and curettage (4) Status post total hip replacement, left Family History FHx: heart disease Hypertension Social History Smoking Status: Never Smoker Alcohol Use: none Drug Use: none Marital Status: Housing Status: lives with family Occupation Status: retired Current/Historical Medications Scheduled Aspirin (Aspirin Ec), 81 MG PO DAILY Atorvastatin (Lipitor), 10 MG PO HS Bumetanide (Bumex), 0.5 MG PO QAM Epoetin Rafael (Procrit), 10,000 UNITS SC q 3 weeks Escitalopram (Lexapro), Unknown Dose PO DAILY Ferrous Sulfate (Ferrous Sulfate), 325 MG PO BID Levothyroxine Sodium (Synthroid), 88 MCG PO DAILY Magnesium Oxide (Mg Supplement (Magnesium Oxide), 1 TAB PO DAILY Metoprolol Tartrate (Lopressor) (Lopressor), 12.5 MG PO BID Mirtazapine (Remeron), 7.5 MG PO HS Nifedipine (Nifedipine Er), 30 MG PO DAILY Pantoprazole (Protonix), 40 MG PO DAILY Polyethylene Glycol 3350 (Miralax), 17 GM PO DAILY Ranitidine Hcl (Zantac), 150 MG PO QAM Scheduled PRN Docusate Sodium (Docusate Sodium), 1 CAP PO DAILY PRN for Constipation Lorazepam (Ativan), 1 MG PO BID PRN for Anxiety Allergies Coded Allergies: Penicillins (Verified Allergy, Intermediate, HIVES, 01/07/17) Iron Sucrose (Verified Adverse Reaction, Mild, n&v, abd pain, 01/07/17) Physical Exam Vital Signs Date Time Temp Pulse Resp B/P Pulse Ox O2 Delivery O2 Flow Rate FiO2 01/07/17 05:52 61 18 183/64 97 Room Air 01/07/17 05:41 68 01/07/17 05:41 97 Room Air 01/07/17 05:41 95 Room Air 01/07/17 05:41 37.1 61 18 204/59 96 Room Air 01/07/17 05:41 97 Room Air Physical Exam VITALS: Vitals are noted on the nurse's note and reviewed by myself. Vital signs were hypertensive. GENERAL: Elderly female following commands, in no acute distress, nondiaphoretic , well-developed well-nourished. SKIN: The skin was without rashes, erythema, edema, or bruising. There is no tenting of the skin. Capillary reflex less than 2 seconds. HEAD: Normocephalic atraumatic. EARS: External auditory canals clear, tympanic membranes pearly scott without erythema or effusion bilaterally. EYES: Pupils equal round and reactive to light and accommodation. Conjunctivae without injection, sclerae without icterus. Extraocular movements intact. NOSE: Patent, turbinates without inflammation or discharge. MOUTH: Mucous membranes moist. Pharynx without erythema or exudate. Uvula midline. Airway patent. Tongue does not deviate. NECK: Supple without nuchal rigidity. No lymphadenopathy. No thyromegaly. Cervical spine is nontender. No JVD. HEART: Regular rate and rhythm LUNGS: Clear to auscultation bilaterally without wheezes, rales or rhonchi. No dullness to percussion. No retractions or accessory muscle use. ABDOMEN: Positive bowel sounds x 4. Normal tympanic percussion. Soft, nontender, without masses or organomegaly. Grant sign negative. No guarding or rebound tenderness. MUSCULOSKELETAL: No muscle atrophy, erythema, or edema noted. NEURO: Patient was alert and oriented to person place and time. Normal sensation to light and sharp touch. No focal neurological deficits. Medical Decision & Procedures Laboratory Results 01/07/17 05:30 Red Blood Count 2.69, Mean Corpuscular Volume 97.8, Mean Corpuscular Hemoglobin 33.8, Mean Corpuscular Hemoglobin Concent 34.6, Mean Platelet Volume 10.2, Neutrophils (%) (Auto) 43.9, Lymphocytes (%) (Auto) 44.7, Monocytes (%) (Auto) 7.7, Eosinophils (%) (Auto) 3.0, Basophils (%) (Auto) 0.7, Neutrophils # (Auto) 1.89, Lymphocytes # (Auto) 1.92, Monocytes # (Auto) 0.33, Eosinophils # (Auto) 0.13, Basophils # (Auto) 0.03 01/07/17 05:30 Test 01/07/17 05:25 01/07/17 05:30 01/07/17 05:47 01/07/17 05:49 White Blood Count 4.30 K/uL (4.8-10.8) Red Blood Count 2.69 M/uL (4.2-5.4) Hemoglobin 9.1 g/dL (12.0-16.0) Hematocrit 26.3 % (37-47) Mean Corpuscular Volume 97.8 fL (80-100) Mean Corpuscular Hemoglobin 33.8 pg (25-34) Mean Corpuscular Hemoglobin Concent 34.6 g/dl (32-36) Platelet Count 156 K/uL (130-400) Mean Platelet Volume 10.2 fL (7.4-10.4) Neutrophils (%) (Auto) 43.9 % Lymphocytes (%) (Auto) 44.7 % Monocytes (%) (Auto) 7.7 % Eosinophils (%) (Auto) 3.0 % Basophils (%) (Auto) 0.7 % Neutrophils # (Auto) 1.89 K/uL (1.4-6.5) Lymphocytes # (Auto) 1.92 K/uL (1.2-3.4) Monocytes # (Auto) 0.33 K/uL (0.11-0.59) Eosinophils # (Auto) 0.13 K/uL (0-0.5) Basophils # (Auto) 0.03 K/uL (0-0.2) RDW Standard Deviation 46.6 fL (36.4-46.3) RDW Coefficient of Variation 13.1 % (11.5-14.5) Immature Granulocyte % (Auto) 0.0 % Immature Granulocyte # (Auto) 0.00 K/uL (0.00-0.02) Est Creatinine Clear Calc Drug Dose 16.3 ml/min Estimated GFR () 27.2 Estimated GFR (Non- 23.5 BUN/Creatinine Ratio 16.9 (10-20) Calcium Level 8.6 mg/dl (8.5-10.1) Magnesium Level 2.7 mg/dl (1.8-2.4) Total Bilirubin 0.3 mg/dl (0.2-1) Direct Bilirubin < 0.1 mg/dl (0-0.2) Aspartate Amino Transf (AST/SGOT) 25 U/L (15-37) Alanine Aminotransferase (ALT/SGPT) 29 U/L (12-78) Alkaline Phosphatase 120 U/L (45-117) Troponin I < 0.015 ng/ml (0-0.045) Total Protein 7.3 gm/dl (6.4-8.2) Albumin 3.6 gm/dl (3.4-5.0) Lipase 193 U/L (73-393) Thyroid Stimulating Hormone (TSH) 2.780 uIu/ml (0.300-4.500) Bedside Troponin I 0.000 ng/ml (0-0.045) Bedside Hemoglobin 9.2 g/dl (12.0-16.0) Bedside Hematocrit 27 % (37-47) Bedside Sodium 126 mEq/L (135-144) Bedside Potassium 4.1 mEq/L (3.3-5.0) Bedside Chloride 89 mEq/L (101-112) Bedside Total CO2 27 mEq/l (24-31) Anion Gap 15.0 mmol/L (16-25) Bedside Blood Urea Nitrogen 32 mg/dl (7-18) Bedside Creatinine 1.9 mg/dl (0.6-1.3) Bedside Glucose (other) 90 mg/dl (70-99) Bedside Ionized Calcium (Santa) 1.15 mmol/l (1.12-1.32) ED Course Prior records/ancillary studies reviewed. Triage Nursing notes reviewed. Additional history obtained from EMS. The patient's history was concerning for palpitations. Differential diagnosis: Etiologies such as premature contractions, electrolyte abnormality, cardiac dysrhythmia, thyroid dysfunction, pulmonary embolism, infection, gastrointestinal, as well as others were entertained. I attest that I have personally reviewed the patient's current medication list. Patient was found to have elevated blood pressure and was referred to their family doctor for recheck and further treatment. Physical examination: Benign as above. ER treatment provided: Patient was observed On reassessment the patient felt better. Patient's medications are reviewed. Diagnostic interpretation by me: Cardiac monitoring revealed occasional PVC. The electrocardiogram was negative for pathologic change. Normal sinus, occasional PVC, minimal ST depression in the lateral leads unchanged prior EKG. Impression normal sinus rhythm with a first-degree AV block with occasional PVC with unchanged ST depression in the lateral leads interpreted by myself The labs revealed euthyroid Stable H&H per chart chart review, stable creatinine per chart review. Stable hyponatremia per chart review Imaging studies: Chest x-ray with no acute consolidation, pneumothorax or free air per my interpretation. compared to prior CXR Prior echo from a few months ago is reviewed. This appears to be consistent with palpitations that is recurrent for this patient and can be from her taking Lexapro for the first time last night. She was advised not to take this medication to clear by the family care doctor. She is advised to follow-up family care for her palpitations and chronically low sodium. Patient was advised to monitor her blood pressure. Unremarkable workup as above. Unchanged EKG. Negative troponin. She is advised to follow- up with her chief load dispatcher a few days for further evaluation workup for ongoing symptoms or here in the ER sooner for chest pain, difficulty breathing, worsening signs or symptoms or as needed. Patient is well-known to this ER for frequent ER visits. This is her fifth visit this month alone. By the evaluation outlined above emergent etiologies such as thyroid dysfunction, pulmonary embolism, infection, as well as others were deemed relatively unlikely. The pt informed about the findings as listed above. All questions were answered and pleased with the treatment. Return instructions were outlined and the patient was discharged in stable condition. Referral: The patient was referred back to their primary care physician/cards for follow- up in 2 to 3 days for a recheck of the current condition Case reviewed with my Attending Medical Decision As above Impression Primary Impression: Premature ventricular contractions Additional Impression: Palpitations Departure Information Dispostion Home / Self-Care Condition GOOD Referrals Yogesh Quevedo III, M.D. (PCP) Patient Instructions My [facility] Additional Instructions Stop Lexapro. Follow-up family care for your elevated blood pressure today. Acetaminophen(Tylenol) may be used for fever or pain. Use 1000mg every six hours as needed. Avoid using more than 3000mg in a 24 hour period. Rest and drink plenty of fluids as tolerated. Continue current medications. Avoid strenuous activities and anything that worsens your pain. Resume normal activities once your symptoms resolve. Return to the ER immediately for worsening or persistent palpitations, abdominal pain, vomiting, fevers, chest pains, difficulty breathing, worsening of your condition, or as needed. Follow up with your primary physician in 2-3 days for a recheck of your current condition. Problem Qualifiers
[2017-01-07 07:45] VITALS: BP 169/72; PULSE 66; O2SAT 98
--- NOTE | 2017-01-07 08:08 | DIAGNOSTIC IMAGING REPORT ---
CHEST ONE VIEW PORTABLE HISTORY: TACHYCARDIA COMPARISON: Chest 12/30/2016. FINDINGS: The heart remains mildly enlarged. Mild diffuse interstitial thickening is slightly progressed. No new focal lung consolidations. No pneumothorax. Suspect a trace left pleural effusion. IMPRESSION: 1. Stable mild cardiomegaly. 2. Mild diffuse interstitial thickening which is slightly progressed. This may represent developing congestive change. Electronically signed by: Akash Santoyo M.D. 01/07/2017 8:07 AM Dictated Date/Time: 01/07/2017 8:05 AM
[2017-02-03] MEDS ORDERED: CPR500 PO (16:45)
[2017-02-03] MEDS ORDERED: ESCI1TAB6 PO (16:45)
== END 2017-01-07 07:44 | disposition home or self-care (01) ==
LOC: EDBD 05:25 → C.EDA 05:31
DX: I49.3 Ventricular premature depolarization (principal); R00.2 Palpitations; N18.4 Chronic kidney disease, stage 4 (severe); K21.9 Gastro-esophageal reflux disease without esophagitis; E78.5 Hyperlipidemia, unspecified; E03.9 Hypothyroidism, unspecified; E22.2 Syndrome of inappropriate secretion of antidiuretic hormone; Z82.49 Family history of ischemic heart disease and other diseases of the circulatory system; Z79.82 Long term (current) use of aspirin; Z79.899 Other long term (current) drug therapy; F41.9 Anxiety disorder, unspecified; D63.8 Anemia in other chronic diseases classified elsewhere

== ENCOUNTER 2017-01-15 10:52 | Emergency (ER) | payer OTHER ==
[~2017-01-15 10:52] MED LIST changes: -BMX1 PO; +BUME1TAB PO; -CITA10TA4 PO; +ESCI10TA17 PO; -LPR25 PO; +METO25TA56 PO; +RANI150T3 PO; -ZNT150 PO
[2017-01-15 11:03] VITALS: TEMP 36.5; Ht 144.8 cm
[2017-01-15] MEDS ORDERED: SODIUM CHLORIDE 0.9% 1000ML 1,000 ML IV STA (11:25)
--- NOTE | 2017-01-15 11:30 | EMERGENCY ROOM VISIT NOTE ---
History Report prepared by Unique: Trudy Leon Under the Supervision of: Dr. Elza Rausch M.D. First contact with patient: 11:12 Chief Complaint: WEAKNESS Stated Complaint: WEAK IN LEGS, LIGHTHEADED, DIZZY Nursing Triage Summary: Pt states "my legs feel like clubs and I feel cold, dizzy and weak" Daughter states she came home this morning from an appt and found the pt laying on the couch c/o of the above symptoms. History of Present Illness The patient is a 86 year old female who presents to the Emergency Room with complaints of constant weakness beginning this morning. The patient's daughter states that she came home this morning from an appointment and the patient was laying on the couch complaining of feeling weak. She complains of lightheadedness, dizziness, muscle cramping, and being cold. She denies any shortness of breath and changes in eating habits. The patient's daughter states that she talked to the patient's doctor today and they were told to come into the ED. She notes that she has not been able to see her primary care doctor and notes that she has been seen here 7 times this month. The patient reports that she forgot to tell her doctor about her low potassium during her last visit. Source of History: patient Onset: this morning Position: other (global) Quality: other (weakness) Timing: constant Note: She complains of lightheadedness, dizziness, muscle cramping, and being cold. She denies any changes in eating habits. Review of Systems See HPI for pertinent positives & negatives. A total of 10 systems reviewed and were otherwise negative. Past Medical & Surgical Medical Problems: (1) Anemia, chronic disease (2) Anxiety (3) CKD (chronic kidney disease), stage IV (4) GERD (gastroesophageal reflux disease) (5) H/O echocardiogram (6) HLD (hyperlipidemia) (7) HTN (hypertension) (8) Hypothyroidism (9) Palpitations (10) SIADH (syndrome of inappropriate ADH production) Surgical Problems: (1) Hx of appendectomy (2) Hx of cholecystectomy (3) Hx of dilation and curettage (4) Status post total hip replacement, left Family History FHx: heart disease Hypertension Social History Smoking Status: Never Smoker Alcohol Use: none Drug Use: none Marital Status: Housing Status: lives with family Occupation Status: retired Current/Historical Medications Scheduled Aspirin (Aspirin Ec), 81 MG PO DAILY Atorvastatin (Lipitor), 10 MG PO HS Bumetanide (Bumex), 0.5 MG PO QAM Epoetin Rafael (Procrit), 10,000 UNITS SC q 3 weeks Escitalopram (Lexapro), Unknown Dose PO DAILY Levothyroxine Sodium (Synthroid), 88 MCG PO DAILY Magnesium Oxide (Mg Supplement (Magnesium Oxide), 241.3 MG PO BID Metoprolol Tartrate (Lopressor) (Lopressor), 12.5 MG PO BID Mirtazapine (Remeron), 7.5 MG PO HS Nifedipine (Nifedipine Er), 30 MG PO DAILY Pantoprazole (Protonix), 40 MG PO DAILY Polyethylene Glycol 3350 (Miralax), 17 GM PO DAILY Ranitidine Hcl (Zantac), 150 MG PO QAM Scheduled PRN Docusate Sodium (Docusate Sodium), 1 CAP PO DAILY PRN for Constipation Lorazepam (Ativan), 1 MG PO BID PRN for Anxiety Allergies Coded Allergies: Penicillins (Verified Allergy, Intermediate, HIVES, 01/07/17) Iron Sucrose (Verified Adverse Reaction, Mild, n&v, abd pain, 01/07/17) Physical Exam Vital Signs Date Time Temp Pulse Resp B/P (MAP) Pulse Ox O2 Delivery O2 Flow Rate FiO2 01/15/17 14:03 58 01/15/17 13:33 72 18 145/54 98 Room Air 01/15/17 12:24 62 18 155/47 98 Room Air 01/15/17 11:24 60 01/15/17 11:03 36.5 63 18 144/49 98 Room Air Physical Exam Vital signs reviewed. General: Well-appearing, elderly, in no significant distress, generalized weakness. HEENT: No scleral icterus, PERRLA, neck supple. Atraumatic. Cardiovascular: Regular rate and rhythm. Systolic ejection murmur. Pulmonary: Crackles right greater than left base, normal work of breathing. Abdomen: Soft, nontender, nondistended, positive bowel sounds. Musculoskeletal: Atraumatic, no peripheral edema. Neurologic: Patient awake alert and oriented x 3, full strength in all 4 extremities. Cranial nerves 2 through 12 grossly intact. Skin: Warm, dry, no rash Medical Decision & Procedures Laboratory Results 01/15/17 11:25 Red Blood Count 2.85, Mean Corpuscular Volume 96.8, Mean Corpuscular Hemoglobin 32.6, Mean Corpuscular Hemoglobin Concent 33.7, Mean Platelet Volume 9.2, Neutrophils (%) (Auto) 61.2, Lymphocytes (%) (Auto) 28.1, Monocytes (%) (Auto) 7.6, Eosinophils (%) (Auto) 2.1, Basophils (%) (Auto) 0.8, Neutrophils # (Auto) 3.13, Lymphocytes # (Auto) 1.44, Monocytes # (Auto) 0.39, Eosinophils # (Auto) 0.11, Basophils # (Auto) 0.04 01/15/17 11:25 Test 01/15/17 11:08 01/15/17 11:25 01/15/17 11:33 01/15/17 12:00 Bedside Glucose 104 mg/dl (70-90) White Blood Count 5.12 K/uL (4.8-10.8) Red Blood Count 2.85 M/uL (4.2-5.4) Hemoglobin 9.3 g/dL (12.0-16.0) Hematocrit 27.6 % (37-47) Mean Corpuscular Volume 96.8 fL (80-100) Mean Corpuscular Hemoglobin 32.6 pg (25-34) Mean Corpuscular Hemoglobin Concent 33.7 g/dl (32-36) Platelet Count 189 K/uL (130-400) Mean Platelet Volume 9.2 fL (7.4-10.4) Neutrophils (%) (Auto) 61.2 % Lymphocytes (%) (Auto) 28.1 % Monocytes (%) (Auto) 7.6 % Eosinophils (%) (Auto) 2.1 % Basophils (%) (Auto) 0.8 % Neutrophils # (Auto) 3.13 K/uL (1.4-6.5) Lymphocytes # (Auto) 1.44 K/uL (1.2-3.4) Monocytes # (Auto) 0.39 K/uL (0.11-0.59) Eosinophils # (Auto) 0.11 K/uL (0-0.5) Basophils # (Auto) 0.04 K/uL (0-0.2) RDW Standard Deviation 45.7 fL (36.4-46.3) RDW Coefficient of Variation 12.9 % (11.5-14.5) Immature Granulocyte % (Auto) 0.2 % Immature Granulocyte # (Auto) 0.01 K/uL (0.00-0.02) Anion Gap 7.0 mmol/L (3-11) Estimated GFR () 27.2 Estimated GFR (Non- 23.5 BUN/Creatinine Ratio 19.9 (10-20) Calcium Level 8.7 mg/dl (8.5-10.1) Magnesium Level 3.0 mg/dl (1.8-2.4) Total Bilirubin 0.4 mg/dl (0.2-1) Direct Bilirubin 0.1 mg/dl (0-0.2) Aspartate Amino Transf (AST/SGOT) 33 U/L (15-37) Alanine Aminotransferase (ALT/SGPT) 44 U/L (12-78) Alkaline Phosphatase 117 U/L (45-117) Total Creatine Kinase 54 U/L (26-192) Creatine Kinase MB 0.6 ng/ml (0.5-3.6) Creatine Kinase MB Ratio 1.1 (0-3.0) Total Protein 7.5 gm/dl (6.4-8.2) Albumin 4.0 gm/dl (3.4-5.0) Thyroid Stimulating Hormone (TSH) 1.530 uIu/ml (0.300-4.500) Bedside Troponin I < 0.030 ng/ml (0-0.045) Urine Color YELLOW Urine Appearance CLEAR (CLEAR) Urine pH 6.0 (4.5-7.5) Urine Specific Lehr 1.010 (1.000-1.030) Urine Protein NEG (NEG) Urine Glucose (UA) NEG (NEG) Urine Ketones NEG (NEG) Urine Occult Blood NEG (NEG) Urine Nitrite NEG (NEG) Urine Bilirubin NEG (NEG) Urine Urobilinogen NEG (NEG) Urine Leukocyte Esterase NEG (NEG) Laboratory results per my review. Medications Administered Medications (Trade) Dose Ordered Sig/Jassi Route Start Time Stop Time Status Last Admin Dose Admin Sodium Chloride 1,000 ml @ 125 mls/hr Q8H STAT IV 01/15/17 11:25 01/15/17 14:57 DC 01/15/17 11:39 125 MLS/HR ECG Indication: weakness Rate (beats per minute): 63 Rhythm: normal sinus Findings: 1st degree AV block, no acute ischemic change, other (LVH, repolarization abnormality) ED Course 1112: Past medical records reviewed. The patient was evaluated in room A3. A complete history and physical examination was performed. 1125: Sodium Chloride 1000 ml @ 125 mls/hr IV. 1423: I reevaluated the patient. She would like to go home and does not want to stay in the hospital. She will be following up with her PCP. 1435: Upon reevaluation, the patient appeared to have improvement of her symptoms. I discussed findings with the patient. She verbalized agreement of the treatment plan. The patient was discharged home. Medical Decision Differential diagnosis: Etiologies such as metabolic, infection, hypo/hyperglycemia, electrolyte abnormalities, cardiac sources, intracerebral event, toxicologic, neurologic, as well as others were entertained. Medication Reconciliation: I attest that I have personally reviewed the patient' s current medication list. Blood Pressure Screening: Patient was found to have a slightly elevated blood pressure due to circumstances and age. I do not believe that the patient requires hypertension monitoring. This pt was evaluated and appeared to be in no distress. IV access was obtained and lab work was drawn. Pt was placed on the satellite project site monitor. Previous records were reviewed, as pt has had 7 visits in the last 30 days. She was hydrated with NSS @125 ml/hr. Lab work reveals a Na of 126, c/w several days ago. Pt was offered admission to the hospitals for further workup and Na correction, as she obviously is not doing well at home. She refuses admission as she'd like to be with her at home. Pt was d/c to care of her daughter to f/u with PCP. She will return to the ED for worsening of symptoms or any medical concerns. Impression Primary Impression: Hyponatremia Additional Impression: Generalized weakness Scribe Attestation The scribe's documentation has been prepared under my direction and personally reviewed by me in its entirety. I confirm that the note above accurately reflects all work, treatment, procedures, and medical decision making performed by me. Departure Information Dispostion Home / Self-Care Referrals Yogesh Quevedo III, M.D. (PCP) Forms HOME CARE DOCUMENTATION FORM, IMPORTANT VISIT INFORMATION Patient Instructions My [facility] Additional Instructions Diagnosis: Hyponatremic, generalized weakness Please increase the sodium in your diet. Continue medications as prescribed. Follow-up with Dr. Quevedo within the next several days for repeat laboratory evaluation. Return to the emergency department for worsening of symptoms or any medical concerns. Problem Qualifiers
[2017-01-15 11:43] LABS: BASO % 0.8 %; BASO ABS # 0.04 K/uL (0-0.2); COMPLETE YES; EOS % 2.1 %; HEMATOCRIT 27.6 % (37-47); IG% 0.2 %; LYMPH % 28.1 %; LYMPH ABS # 1.44 K/uL (1.2-3.4); MEAN CELL VOLUME 96.8 fL (80-100); MEAN CORPUSCULAR HEMOGLOBIN 32.6 pg (25-34); MEAN CORPUSCULAR HGB CONC 33.7 g/dl (32-36); MEAN PLATELET VOLUME 9.2 fL (7.4-10.4); MONO % 7.6 %; NEUT % 61.2 %; PLATELET COUNT 189 K/uL (130-400); RED BLOOD COUNT 2.85 M/uL (4.2-5.4); WHITE BLOOD COUNT 5.12 K/uL (4.8-10.8)
[2017-01-15 12:02] LABS: ALT/SGPT 44 U/L (12-78); AST/SGOT 33 U/L (15-37); BLOOD UREA NITROGEN 38 mg/dl (7-18); BUN/CREATININE RATIO 19.9 (10-20); CALCIUM 8.7 mg/dl (8.5-10.1); CARBON DIOXIDE 30 mmol/L (21-32); CHLORIDE 89 mmol/L (98-107); GLUCOSE 92 mg/dl (70-99); SODIUM 126 mmol/L (136-145)
[2017-01-15 12:13] LABS: ALKALINE PHOSPHATASE 117 U/L (45-117); CKMB/CK RATIO 1.1 (0-3.0)
[2017-01-15 12:46] LABS: URINE APPEARANCE CLEAR (CLEAR); URINE BILIRUBIN NEG (NEG); URINE COLOR YELLOW; URINE NITRITE NEG (NEG); UROBILINOGEN NEG (NEG); ZZUR CULT IF INDIC CLEAN CATCH NO
[2017-01-15 12:55] LABS: REVIEW REQ? NO
[2017-01-15 12:56] LABS: MANUAL MICROSCOPIC REQUIRED? NO
[2017-01-15 13:33] VITALS: BP 145/54; O2SAT 98
[2017-01-15 14:03] VITALS: PULSE 58
[2017-02-03] MEDS ORDERED: ESCI1TAB6 PO (16:45)
[2017-02-03] MEDS ORDERED: CPR500 PO (16:45)
== END 2017-01-15 14:43 | disposition home or self-care (01) ==
LOC: C.EDB 10:56 → C.EDA 14:43
DX: E87.1 Hypo-osmolality and hyponatremia (principal); R53.1 Weakness; I44.0 Atrioventricular block, first degree; I12.9 Hypertensive chronic kidney disease with stage 1 through stage 4 chronic kidney disease, or unspecified chronic kidney disease; N18.4 Chronic kidney disease, stage 4 (severe); E78.5 Hyperlipidemia, unspecified; E03.9 Hypothyroidism, unspecified; F41.9 Anxiety disorder, unspecified; K21.9 Gastro-esophageal reflux disease without esophagitis; D64.9 Anemia, unspecified; Z90.49 Acquired absence of other specified parts of digestive tract; Z98.890 Other specified postprocedural states; Z79.82 Long term (current) use of aspirin; Z79.899 Other long term (current) drug therapy; Z88.0 Allergy status to penicillin; Z91.018 Allergy to other foods; Z82.49 Family history of ischemic heart disease and other diseases of the circulatory system

== ENCOUNTER 2017-01-17 04:07 | Emergency (ER) | payer OTHER ==
[~2017-01-17] VITALS: Ht 152.4 cm; Wt 54.0 kg
[2017-01-17 04:11] VITALS: TEMP 36.5
--- NOTE | 2017-01-17 04:22 | EMERGENCY ROOM VISIT NOTE ---
History Report prepared by Unique: Harjeet Gaston Under the Supervision of: Dr. Jefry Diamond D.O. First contact with patient: 04:16 Chief Complaint: ABDOMINAL PAIN Stated Complaint: SEVERE PAIN IN STOMACH AND LOWER BACK History of Present Illness The patient is a 86 year old female who presents to the Emergency Room with complaints of abdominal pain that began this morning. She rates her pain a 10/ 10 in severity. The patient's symptoms began when she went to the bathroom this morning. She had a bowel movement and urinated at this time. Her pain is radiating into her lower back. She denies any vomiting. Source of History: patient Onset: this morning Position: abdomen Symptom Intensity: 10/10 Quality: sharp Timing: constant Associated Symptoms: + back pain, No vomiting Review of Systems See HPI for pertinent positives and negatives. A total of ten systems were reviewed and were otherwise negative. Past Medical & Surgical Medical Problems: (1) Anemia, chronic disease (2) Anxiety (3) CKD (chronic kidney disease), stage IV (4) GERD (gastroesophageal reflux disease) (5) H/O echocardiogram (6) HLD (hyperlipidemia) (7) HTN (hypertension) (8) Hypothyroidism (9) Palpitations (10) SIADH (syndrome of inappropriate ADH production) Surgical Problems: (1) Hx of appendectomy (2) Hx of cholecystectomy (3) Hx of dilation and curettage (4) Status post total hip replacement, left Family History FHx: heart disease Hypertension Social History Smoking Status: Never Smoker Alcohol Use: none Drug Use: none Marital Status: Housing Status: lives with family Occupation Status: retired Current/Historical Medications Scheduled Aspirin (Aspirin Ec), 81 MG PO DAILY Atorvastatin (Lipitor), 10 MG PO HS Bumetanide (Bumex), 0.5 MG PO QAM Epoetin Rafael (Procrit), 10,000 UNITS SC q 3 weeks Escitalopram (Lexapro), Unknown Dose PO DAILY Levothyroxine Sodium (Synthroid), 88 MCG PO DAILY Magnesium Oxide (Mg Supplement (Magnesium Oxide), 241.3 MG PO BID Metoprolol Tartrate (Lopressor) (Lopressor), 12.5 MG PO BID Mirtazapine (Remeron), 7.5 MG PO HS Nifedipine (Nifedipine Er), 30 MG PO DAILY Pantoprazole (Protonix), 40 MG PO DAILY Polyethylene Glycol 3350 (Miralax), 17 GM PO DAILY Ranitidine Hcl (Zantac), 150 MG PO QAM Scheduled PRN Docusate Sodium (Docusate Sodium), 1 CAP PO DAILY PRN for Constipation Lorazepam (Ativan), 1 MG PO BID PRN for Anxiety Allergies Coded Allergies: Penicillins (Verified Allergy, Intermediate, HIVES, 01/07/17) Iron Sucrose (Verified Adverse Reaction, Mild, n&v, abd pain, 01/07/17) Physical Exam Vital Signs Date Time Temp Pulse Resp B/P (MAP) Pulse Ox O2 Delivery O2 Flow Rate FiO2 01/17/17 04:50 58 01/17/17 04:36 96 Room Air 01/17/17 04:11 36.5 79 24 181/60 94 Room Air Physical Exam GENERAL: Awake, alert, anxious appearing, in no distress. HENT: Normocephalic, atraumatic. Oropharynx unremarkable. EYES: Normal conjunctiva. Sclera non-icteric. NECK: Supple. No nuchal rigidity. FROM. No JVD. RESPIRATORY: Clear to auscultation. CARDIAC: Regular rate, normal rhythm. Extremities warm and well perfused. Pulses equal. ABDOMEN: Soft, non-distended. No tenderness to palpation. No rebound or guarding. No masses. RECTAL: Deferred. MUSCULOSKELETAL: Chest examination reveals no tenderness. The back is symmetrical on inspection without obvious abnormality. There is no CVA tenderness to palpation. No joint edema. LOWER EXTREMITIES: Calves are equal size bilaterally and non-tender. No edema. No discoloration. NEURO: Normal sensorium. No sensory or motor deficits noted. SKIN: No rash or jaundice noted. Medical Decision & Procedures ER Provider Diagnostic Interpretation: X ray results as stated below per my interpretation and radiologist interpretation. Other radiology results as stated below per my review and radiologist interpretation X-RAY ABDOMINAL SERIES: No free air. No bowel obstruction. Increased stool in the LLQ. Per me. Laboratory Results 01/17/17 04:25 Red Blood Count 2.70, Mean Corpuscular Volume 95.9, Mean Corpuscular Hemoglobin 31.9, Mean Corpuscular Hemoglobin Concent 33.2, Mean Platelet Volume 9.5, Neutrophils (%) (Auto) 43.0, Lymphocytes (%) (Auto) 46.4, Monocytes (%) (Auto) 7.2, Eosinophils (%) (Auto) 2.6, Basophils (%) (Auto) 0.8, Neutrophils # (Auto) 2.15, Lymphocytes # (Auto) 2.32, Monocytes # (Auto) 0.36, Eosinophils # (Auto) 0.13, Basophils # (Auto) 0.04 01/17/17 04:25 Test 01/17/17 04:25 01/17/17 04:30 White Blood Count 5.00 K/uL (4.8-10.8) Red Blood Count 2.70 M/uL (4.2-5.4) Hemoglobin 8.6 g/dL (12.0-16.0) Hematocrit 25.9 % (37-47) Mean Corpuscular Volume 95.9 fL (80-100) Mean Corpuscular Hemoglobin 31.9 pg (25-34) Mean Corpuscular Hemoglobin Concent 33.2 g/dl (32-36) Platelet Count 181 K/uL (130-400) Mean Platelet Volume 9.5 fL (7.4-10.4) Neutrophils (%) (Auto) 43.0 % Lymphocytes (%) (Auto) 46.4 % Monocytes (%) (Auto) 7.2 % Eosinophils (%) (Auto) 2.6 % Basophils (%) (Auto) 0.8 % Neutrophils # (Auto) 2.15 K/uL (1.4-6.5) Lymphocytes # (Auto) 2.32 K/uL (1.2-3.4) Monocytes # (Auto) 0.36 K/uL (0.11-0.59) Eosinophils # (Auto) 0.13 K/uL (0-0.5) Basophils # (Auto) 0.04 K/uL (0-0.2) RDW Standard Deviation 44.8 fL (36.4-46.3) RDW Coefficient of Variation 12.9 % (11.5-14.5) Immature Granulocyte % (Auto) 0.0 % Immature Granulocyte # (Auto) 0.00 K/uL (0.00-0.02) Ovalocytes 1+ Schistocytes OCCASIONAL Anion Gap 10.0 mmol/L (3-11) Est Creatinine Clear Calc Drug Dose 15.3 ml/min Estimated GFR () 27.2 Estimated GFR (Non- 23.5 BUN/Creatinine Ratio 20.5 (10-20) Calcium Level 8.4 mg/dl (8.5-10.1) Magnesium Level 2.7 mg/dl (1.8-2.4) Total Bilirubin 0.4 mg/dl (0.2-1) Direct Bilirubin 0.1 mg/dl (0-0.2) Aspartate Amino Transf (AST/SGOT) 32 U/L (15-37) Alanine Aminotransferase (ALT/SGPT) 43 U/L (12-78) Alkaline Phosphatase 120 U/L (45-117) Total Protein 7.0 gm/dl (6.4-8.2) Albumin 3.7 gm/dl (3.4-5.0) Lipase 236 U/L (73-393) Urine Color YELLOW Urine Appearance CLEAR (CLEAR) Urine pH 6.5 (4.5-7.5) Urine Specific Bromide 1.010 (1.000-1.030) Urine Protein NEG (NEG) Urine Glucose (UA) NEG (NEG) Urine Ketones NEG (NEG) Urine Occult Blood NEG (NEG) Urine Nitrite NEG (NEG) Urine Bilirubin NEG (NEG) Urine Urobilinogen NEG (NEG) Urine Leukocyte Esterase NEG (NEG) Laboratory results reviewed by me ED Course 0416: The patient was evaluated in room B9. A complete history and physical exam was performed. 0539: I reevaluated the patient. Discussed results and discharge instructions: She verbalized understanding and agreement. The patient is ready for discharge. Medical Decision Differential diagnoses include but are not limited to; constipation, UTI, electrolyte abnormality, dehydration, and chronic abdominal pain. Medication Reconciliation: I attest that I have personally reviewed the patient' s current medication list. Blood pressure screening: Patient was found to have normal blood pressure on screening and does not require follow-up. Patient resting in no distress on repeat examination. I discussed the workup with the patient at bedside. Spoke with the patient's daughter as well and we' ll provide MiraLAX patient's sodium is 126 and has been stable for the past for blood draws. There is a component of anxiety associated with this I do not think that there is a significant intra-abdominal process at this time Impression Primary Impression: Abdominal pain Additional Impressions: Hyponatremia Anxiety Scribe Attestation The scribe's documentation has been prepared under my direction and personally reviewed by me in its entirety. I confirm that the note above accurately reflects all work, treatment, procedures, and medical decision making performed by me. Departure Information Dispostion Home / Self-Care Referrals Yogesh Quevedo III, M.D. (PCP) Forms HOME CARE DOCUMENTATION FORM, IMPORTANT VISIT INFORMATION Patient Instructions Abdominal Pain - [facility], ED Hyponatremia, My [facility] Problem Qualifiers
[2017-01-17 04:36] VITALS: O2SAT 96
[2017-01-17 04:37] VITALS: Ht 152.4 cm; Wt 54.0 kg
[2017-01-17 04:51] LABS: URINE APPEARANCE CLEAR (CLEAR); URINE BILIRUBIN NEG (NEG); URINE COLOR YELLOW; URINE NITRITE NEG (NEG); URINE PH 6.5 (4.5-7.5); UROBILINOGEN NEG (NEG)
[2017-01-17 04:54] LABS: MANUAL MICROSCOPIC REQUIRED? NO; REVIEW REQ? NO
[2017-01-17 04:59] LABS: BASO % 0.8 %; BASO ABS # 0.04 K/uL (0-0.2); EOS % 2.6 %; HEMATOCRIT 25.9 % (37-47); LYMPH % 46.4 %; LYMPH ABS # 2.32 K/uL (1.2-3.4); MEAN CELL VOLUME 95.9 fL (80-100); MEAN CORPUSCULAR HEMOGLOBIN 31.9 pg (25-34); MEAN CORPUSCULAR HGB CONC 33.2 g/dl (32-36); MEAN PLATELET VOLUME 9.5 fL (7.4-10.4); MONO % 7.2 %; PLATELET COUNT 181 K/uL (130-400)
[2017-01-17 05:07] LABS: BUN/CREATININE RATIO 20.5 (10-20); CALCIUM 8.4 mg/dl (8.5-10.1); CREATININE 1.9 mg/dl (0.60-1.20); MAGNESIUM 2.7 mg/dl (1.8-2.4); POTASSIUM 4.1 mmol/L (3.5-5.1)
[2017-01-17 05:27] LABS: COMPLETE YES; OVALOCYTES 1+; SCHISTOCYTES OCCASIONAL
[2017-01-17] MEDS ORDERED: MAGNESIUM CITRATE 296 ML/BTL PO STA (06:03)
[2017-01-17 06:15] VITALS: BP 181/46; PULSE 70; O2SAT 96
--- NOTE | 2017-01-17 08:46 | DIAGNOSTIC IMAGING REPORT ---
PA CHEST RADIOGRAPH AND UPRIGHT AND SUPINE AP RADIOGRAPHS OF THE ABDOMEN CLINICAL HISTORY: Lower abdominal and back pain. COMPARISON STUDY: Chest radiograph January 07, [address] of the abdomen and pelvis December 30, 2016. FINDINGS: Moderate cardiomegaly is unchanged. There is no evidence of pulmonary edema. There is no pneumothorax or pleural effusion. Mild left basilar opacity favors atelectasis. There is no free air. S-shaped scoliosis of the lower thoracic and lumbar spine is noted as well as a left hip arthroplasty. The bowel gas pattern is normal. IMPRESSION: 1. No free air or evidence of bowel obstruction. 2. Left basilar opacity suggestive of atelectasis. Electronically signed by: Hayder Barber M.D. 01/17/2017 8:45 AM Dictated Date/Time: 01/17/2017 8:43 AM
[2017-02-03] MEDS ORDERED: ESCI1TAB6 PO (16:45)
[2017-02-03] MEDS ORDERED: CPR500 PO (16:45)
== END 2017-01-17 06:15 | disposition home or self-care (01) ==
LOC: C.EDB 04:08
DX: R10.9 Unspecified abdominal pain (principal); E87.1 Hypo-osmolality and hyponatremia; F41.9 Anxiety disorder, unspecified; D64.9 Anemia, unspecified; N18.4 Chronic kidney disease, stage 4 (severe); K21.9 Gastro-esophageal reflux disease without esophagitis; E78.5 Hyperlipidemia, unspecified; I10 Essential (primary) hypertension; E03.9 Hypothyroidism, unspecified; E22.2 Syndrome of inappropriate secretion of antidiuretic hormone; Z82.49 Family history of ischemic heart disease and other diseases of the circulatory system; Z79.82 Long term (current) use of aspirin

== ENCOUNTER 2017-01-24 23:33 | Emergency (ER) | payer OTHER ==
[~2017-01-24] VITALS: Ht 152.4 cm; Wt 54.0 kg
[~2017-01-24 23:33] MED LIST changes: -FRRS300 PO
[2017-01-24 23:49] VITALS: TEMP 36.7; Ht 152.4 cm; Wt 54.0 kg
--- NOTE | 2017-01-25 00:08 | EMERGENCY ROOM VISIT NOTE ---
History Report prepared by Unique: Heidi La Under the Supervision of: Dr. Preston Palomino M.D. First contact with patient: 00:00 Chief Complaint: FALL Stated Complaint: FALL, BACK PAIN History of Present Illness The patient is a 86 year old female who presents to the Emergency Room with complaints of a fall today. The patient reports that she tripped and hit her head when she fell. The patient has had a headache thereafter. She rates the pain at a 4/10. She states that she was able to get herself up from the fall, and that she was not laying on the floor for long. The patient also complains of neck pain, back pain, and shortness of breath. Source of History: patient Onset: today Position: other (global) Symptom Intensity: rated at a 4/10 Quality: other (fall) Associated Symptoms: + headache, + neck pain, + SOB, + back pain Review of Systems See HPI for pertinent positives & negatives. A total of 10 systems reviewed and were otherwise negative. Past Medical & Surgical Medical Problems: (1) Anemia, chronic disease (2) Anxiety (3) CKD (chronic kidney disease), stage IV (4) GERD (gastroesophageal reflux disease) (5) H/O echocardiogram (6) HLD (hyperlipidemia) (7) HTN (hypertension) (8) Hypothyroidism (9) Palpitations (10) SIADH (syndrome of inappropriate ADH production) Surgical Problems: (1) Hx of appendectomy (2) Hx of cholecystectomy (3) Hx of dilation and curettage (4) Status post total hip replacement, left Family History FHx: heart disease Hypertension Social History Smoking Status: Never Smoker Alcohol Use: none Drug Use: none Marital Status: Housing Status: lives with family Occupation Status: retired Current/Historical Medications Scheduled Aspirin (Aspirin Ec), 81 MG PO DAILY Atorvastatin (Lipitor), 10 MG PO HS Bumetanide (Bumex), 0.5 MG PO QAM Epoetin Rafael (Procrit), 10,000 UNITS SC q 3 weeks Escitalopram (Lexapro), Unknown Dose PO DAILY Levothyroxine Sodium (Synthroid), 88 MCG PO DAILY Magnesium Oxide (Mg Supplement (Magnesium Oxide), 241.3 MG PO BID Metoprolol Tartrate (Lopressor) (Lopressor), 12.5 MG PO BID Mirtazapine (Remeron), 7.5 MG PO HS Nifedipine (Nifedipine Er), 30 MG PO DAILY Pantoprazole (Protonix), 40 MG PO DAILY Polyethylene Glycol 3350 (Miralax), 17 GM PO DAILY Ranitidine Hcl (Zantac), 150 MG PO QAM Scheduled PRN Docusate Sodium (Docusate Sodium), 1 CAP PO DAILY PRN for Constipation Lorazepam (Ativan), 1 MG PO BID PRN for Anxiety Allergies Coded Allergies: Penicillins (Verified Allergy, Intermediate, HIVES, 01/25/17) Iron Sucrose (Verified Adverse Reaction, Mild, n&v, abd pain, 01/25/17) Physical Exam Vital Signs Date Time Temp Pulse Resp B/P (MAP) Pulse Ox O2 Delivery O2 Flow Rate FiO2 01/25/17 02:22 68 18 157/58 98 01/24/17 23:49 36.7 62 18 164/47 96 Room Air Physical Exam GENERAL: Patient is elderly and anxious appearing and in minimal distress. HEENT: No acute trauma, normocephalic atraumatic, mucous membranes moist, no nasal congestion, no scleral icterus. NECK: No stridor, no adenopathy, no meningismus, trachea is midline. Vague tenderness over right posterior scalp and right side of neck. No midline tenderness. LUNGS: No dyspnea. Clear to auscultation and equal bilaterally. No wheeze, no rhonchi. HEART: Regular rate and rhythm. No murmurs, rubs, gallops appreciated. ABDOMEN: Soft, nontender, bowel sounds positive, no masses appreciated, no peritonitis. BACK: No midline tenderness, no CVA tenderness EXTREMITIES: Normal motion all extremities, no cyanosis, no edema. NEUROLOGIC: Alert and oriented, no acute motor or sensory deficits, no focal weakness, cranial nerves grossly intact. GCS 15. SKIN: No rash, no jaundice, no diaphoresis. Medical Decision & Procedures ER Provider Diagnostic Interpretation: X ray results are stated below per my interpretation: Chest: 1 view: No infiltrate, no effusion, normal cardiac border. Enlarged heart. Chest X ray similar to previous. CT results as stated below per interpretation by me and the radiologist: CT HEAD: Comparison 12/14/2016 No intracranial hemorrhage, mass effect or calvarial fracture. Ventricles are unchanged in size and remain midline. Visualized paranasal sinuses, mastoid and orbits are within limits. CT results as stated below per interpretation by me and the radiologist: CT C SPINE: Comparison 06/02/2016 No fracture or change in alignment. Multilevel spondylosis/discogenic change again noted with areas of osseous facet and vertebral fusion and C1-2 degenerative changes again noted. Medications Administered Medications (Trade) Dose Ordered Sig/Jassi Route Start Time Stop Time Status Last Admin Dose Admin Acetaminophen (Tylenol Tab) 1,000 mg NOW STAT PO 01/25/17 01:21 01/25/17 01:22 DC 01/25/17 01:40 1,000 MG ED Course 0004: The patient was evaluated in room B5. A complete history and physical exam was performed. 0121: Ordered Tylenol Tab 1,000 mg PO. 0201: The patient was sleeping but easily awoken. She says that she wants to go home. 0210: Reevaluated the patient. Discussed results and discharge instructions: She verbalized understanding and agreement. The patient is ready for discharge. Medical Decision Blood pressure screening: Patient was found to have an elevated blood pressure and was referred to their primary doctor for recheck and further treatment. Medication Reconciliation: I attest that I have personally reviewed the patient 's current medication list. 86 yr old female becoming very well known to department for regular visits. States fall earlier in day though on exam no evidence of this other than vague TTP. Also reports feeling SHOB which states is chronic. CXR clear and sats good with normal lung exam. Suspect large portion of this is anxiety related. CT head/neck negative for acute fractures. Discussed need to follow up with PCP for further evaluation and treatment. She is stable over several hours. She has had extensive testing over last few months for many different issues and I feel further testing beyond today's imaging unnecessary. Stable and comfortable at discharge with daughter. Reviewed symptoms requiring RTED. Impression Primary Impression: Fall Additional Impressions: Closed head injury Sore neck HTN (hypertension) Degenerative arthritis of cervical spine Scribe Attestation The scribe's documentation has been prepared under my direction and personally reviewed by me in its entirety. I confirm that the note above accurately reflects all work, treatment, procedures, and medical decision making performed by me. Departure Information Dispostion Home / Self-Care Referrals Yogesh Quevedo III, M.D. (PCP) Patient Instructions ED Mechanical Fall, My [facility] Additional Instructions You must be very careful to avoid falls as you could be severely injured next time. You have extensive degenerative findings in your neck and should discuss this with your primary care provider. Also talk to your primary care provider about your falls and high blood pressure. Your blood pressure was elevated during this visit. This is quite common in many people who are being evaluated in the Emergency Department for many reasons. However, it is important that you have your Primary Care Provider recheck your blood pressure and discuss whether treatment will be needed. assisted elevated blood pressure can lead to strokes, heart attacks, kidney failure amongst other medical issues. If you develop severe headaches, chest pain, weakness in arms or legs, or other concerning symptoms call 911. Problem Qualifiers
[2017-01-25] MEDS ORDERED: ACETAMINOPHEN 500 MG TAB PO STA (01:21)
[2017-01-25 02:22] VITALS: BP 157/58; PULSE 68; O2SAT 98
--- NOTE | 2017-01-25 07:25 | DIAGNOSTIC IMAGING REPORT ---
HEAD CT NONCONTRAST CT DOSE: 926.34 mGy.cm HISTORY: fall right head injury TECHNIQUE: Multiaxial CT images of the head were performed without the use of intravenous contrast. Automated exposure control was utilized for this study. Comparison: Head CT 12/14/2016. Findings: The paranasal sinuses and mastoid air cells are clear. The calvarium and skull base are intact. There is no mass, hematoma, midline shift, acute infarct. White matter hypodensity is nonspecific but suggestive of microvascular ischemic change. The ventricles and sulci demonstrate mild age-related involutional changes. Impression: No significant change compared to the prior study. No acute intracranial abnormality. Electronically signed by: Akash Santoyo M.D. 01/25/2017 7:24 AM Dictated Date/Time: 01/25/2017 7:22 AM
--- NOTE | 2017-01-25 07:29 | DIAGNOSTIC IMAGING REPORT ---
CERVICAL SPINE CT CT DOSE: HISTORY: fall right neck injury TECHNIQUE: Multiaxial CT images of the cervical spine were performed and reformatted in the sagittal and coronal plane without the use of contrast. COMPARISON: Cervical spine CT 06/02/2016. FINDINGS: No fractures. No subluxation. Prevertebral soft tissues and the C1-C2 interval are intact. No pneumothorax. Multilevel advanced degenerative changes are again noted with fusion of the C5-C7 vertebral bodies and multiple fused facets within the cervical spine. There is straightening of the cervical spine. IMPRESSION: No fractures within the cervical spine. Electronically signed by: Akash Santoyo M.D. 01/25/2017 7:28 AM Dictated Date/Time: 01/25/2017 7:24 AM
--- NOTE | 2017-01-25 08:52 | DIAGNOSTIC IMAGING REPORT ---
CHEST ONE VIEW PORTABLE HISTORY: Fall. Short of breath. COMPARISON: Chest 01/17/2017. FINDINGS: The heart remains mildly enlarged. Linear density left lung base consistent with subsegmental atelectasis are scarring. This has slightly improved. No new focal lung consolidations. No evidence for pulmonary edema. Calcification within the ascending thoracic aorta is again noted. IMPRESSION: Stable mild cardiomegaly. Electronically signed by: Akash Santoyo M.D. 01/25/2017 8:50 AM Dictated Date/Time: 01/25/2017 8:48 AM
[2017-02-03] MEDS ORDERED: ESCI1TAB6 PO (16:45)
[2017-02-03] MEDS ORDERED: CPR500 PO (16:45)
== END 2017-01-25 02:23 | disposition home or self-care (01) ==
LOC: C.EDB 23:35
DX: S09.90XA Unspecified injury of head, initial encounter (principal); M54.2 Cervicalgia; W01.10XA Fall on same level from slipping, tripping and stumbling with subsequent striking against unspecified object, initial encounter; M47.892 Other spondylosis, cervical region; D63.1 Anemia in chronic kidney disease; N18.4 Chronic kidney disease, stage 4 (severe); I12.9 Hypertensive chronic kidney disease with stage 1 through stage 4 chronic kidney disease, or unspecified chronic kidney disease; E78.5 Hyperlipidemia, unspecified; E03.9 Hypothyroidism, unspecified; E22.2 Syndrome of inappropriate secretion of antidiuretic hormone; Z90.49 Acquired absence of other specified parts of digestive tract; Z96.642 Presence of left artificial hip joint; Z82.49 Family history of ischemic heart disease and other diseases of the circulatory system; Z79.82 Long term (current) use of aspirin; Z79.899 Other long term (current) drug therapy; M31.1 Thrombotic microangiopathy; F41.9 Anxiety disorder, unspecified

== ENCOUNTER 2017-02-01 12:10 | Inpatient (IN) | payer OTHER ==
[2017-02-01] VITALS (11 sets, daily range): BP systolic 118–153; BP diastolic 53–67; PULSE 61–77; TEMP 36.2–36.7; O2SAT 97–100; Ht 152.4 cm; Wt 52.2 kg
[~2017-02-01] VITALS: Ht 152.4 cm; Wt 52.2 kg
[~2017-02-01 12:10] MED LIST changes: -ATOR10TA82 PO; +ATOR10TA88 PO
[2017-02-01 13:05] LABS: BASO % 0.4 %; BASO ABS # 0.02 K/uL (0-0.2); EOS % 1.8 %; HEMATOCRIT 21.9 % (37-47); IG% 0.2 %; LYMPH % 28.8 %; LYMPH ABS # 1.28 K/uL (1.2-3.4); MEAN CELL VOLUME 99.1 fL (80-100); MEAN CORPUSCULAR HEMOGLOBIN 34.8 pg (25-34); MEAN CORPUSCULAR HGB CONC 35.2 g/dl (32-36); MEAN PLATELET VOLUME 9.7 fL (7.4-10.4); NEUT % 59.8 %; PLATELET COUNT 187 K/uL (130-400); RED BLOOD COUNT 2.21 M/uL (4.2-5.4); WHITE BLOOD COUNT 4.45 K/uL (4.8-10.8)
[2017-02-01] MEDS ORDERED: SODIUM CHLORIDE 0.9% 500ML 500 ML IV STA (13:17)
[2017-02-01 13:23] LABS: ALT/SGPT 30 U/L (12-78); AST/SGOT 25 U/L (15-37); BLOOD UREA NITROGEN 34 mg/dl (7-18); BUN/CREATININE RATIO 19.1 (10-20); CARBON DIOXIDE 30 mmol/L (21-32); CHLORIDE 91 mmol/L (98-107); GLUCOSE 96 mg/dl (70-99); POTASSIUM 4.2 mmol/L (3.5-5.1); SODIUM 127 mmol/L (136-145)
[2017-02-01 13:28] LABS: COMPLETE YES
[2017-02-01 13:29] LABS: URINE APPEARANCE CLOUDY (CLEAR); URINE BILIRUBIN NEG (NEG); URINE COLOR YELLOW; URINE NITRITE NEG (NEG); URINE PH 5.5 (4.5-7.5); URINE SPECIFIC GRAVITY 1.012 (1.000-1.030); UROBILINOGEN NEG (NEG)
--- NOTE | 2017-02-01 13:29 | DIAGNOSTIC IMAGING REPORT ---
HEAD CT NONCONTRAST CT DOSE: 537.48 mGy.cm HISTORY: Mental status change eval for bleed TECHNIQUE: Multiaxial CT images of the head were performed without the use of intravenous contrast. Comparison: 01/25/2017 Findings: The paranasal sinuses and mastoid air cells are clear. Age-related chronic small vessel change. No acute intracranial hemorrhage. No midline shift. Impression: Age-related change. No acute process. No change from the prior exam. Electronically signed by: Rob Mike M.D. 02/01/2017 1:27 PM Dictated Date/Time: 02/01/2017 1:26 PM
[2017-02-01 13:33] LABS: MANUAL MICROSCOPIC REQUIRED? NO; REVIEW REQ? NO
[2017-02-01 13:34] LABS: ALKALINE PHOSPHATASE 107 U/L (45-117)
--- NOTE | 2017-02-01 13:41 | DIAGNOSTIC IMAGING REPORT ---
CHEST 2 VIEWS ROUTINE CLINICAL HISTORY: eval for pnea dyspnea COMPARISON STUDY: 01/25/2017 FINDINGS: The bones soft tissues and hemidiaphragms are normal. The cardiomediastinal silhouette is normal. The lungs are clear. The pulmonary vasculature is normal. IMPRESSION: Negative chest. Electronically signed by: Rob Mike M.D. 02/01/2017 1:40 PM Dictated Date/Time: 02/01/2017 1:39 PM
[2017-02-01 13:56] LABS: CALCIUM 9.1 mg/dl (8.5-10.1)
[2017-02-01] MEDS ORDERED: BSP/5 PO (13:59)
[2017-02-01] MEDS ORDERED: ONDANSETRON INJ 2 MG/ML 2 ML VIAL IV PRN (16:00)
[2017-02-01] MEDS ORDERED: FERR325T5 PO (16:09)
[2017-02-01] MEDS ORDERED: NUTR-773 PO (16:09)
[2017-02-01] MEDS ORDERED: MAGN10TA PO (16:09)
[2017-02-01] MEDS ORDERED: ZNTT/150 PO (16:09)
[2017-02-01] MEDS ORDERED: POLYETHYLENE (MIRALAX) 17 GM PACK PO PRN (16:15)
--- NOTE | 2017-02-01 16:47 | History and Physical ---
History & Physical Date & Time of Service: Feb 01, 2017 at 16:21 Chief Complaint: ILL Primary Care Physician: Yogesh Quevedo III, M.D. History of Present Illness Source: patient, clinic records, hospital records 86 yo F with stage IV renal disease presents with lightheadedness and weakness in her legs which has been present for the past two days. She said the lightheadedness came on while she was sleeping last night and she doesn't know what triggers it, but was orthostatic positive in the ER today. She states that she has "had to go to the bathroom" multiple times daily over the last week. She denies any dysuria, flank pain, pelvic pain, fevers or chills or blood in urine. She denies any blood in her stool, but did fall 1 week ago and was seen in the ER for this. She does have a large area of ecchymosis on her R hip today which is a deep purple. She is ambulatory and denies lightheadedness when walking to the bathroom in the ER today. She reports a "twinge" of chest pain in the center of her chest that lasted seconds and was not associated with any concerning symptoms of palpitations, sweating, lightheadedness, nausea or SOB. She states this occurred two days in a row and denies any h/o cardiac disease or pain in the past. She does reports significant uncontrolled anxiety , however, and upon entering the room and asking how she was doing today she immediately went into how nervous and anxious she was about rats in her home. She denies any headache but reports a pressure in the back of her head. In the ER, she had a head CT that was negative and a CXR was also negative for an acute process. Her daughter brought her in today but was unavailable for questioning in person or by phone. The patient states that she lives with her and her daughter. Review of her outpatient records reveal multiple calls with the Property Supervisor with significant anxiety present for multiple reasons. Past Medical/Surgical History Medical Problems: (1) Anemia, chronic disease Status: Chronic (2) Anxiety Status: Chronic (3) CKD (chronic kidney disease), stage IV Status: Chronic (4) GERD (gastroesophageal reflux disease) Status: Chronic (5) H/O echocardiogram Permanent Comment: 03/2015 - EF 60-65%, moderate to severe aortic regurgitation Status: Chronic (6) HLD (hyperlipidemia) Status: Chronic (7) HTN (hypertension) Status: Chronic (8) Hypothyroidism Status: Chronic (9) Palpitations Status: Chronic (10) SIADH (syndrome of inappropriate ADH production) Status: Chronic Surgical Problems: (1) Hx of appendectomy Status: Chronic (2) Hx of cholecystectomy Status: Chronic (3) Hx of dilation and curettage Status: Chronic (4) Status post total hip replacement, left Status: Chronic Family History FHx: heart disease Hypertension Social History Smoking Status: Never Smoker Smokeless Tobacco Use: No Alcohol Use: none Drug Use: none Marital Status: Housing status: lives with family Occupational Status: retired Immunizations History of Influenza Vaccine: Yes Influenza Vaccine Date: Apr 24, 2016 History of Tetanus Vaccine?: Yes Tetanus Immunization Date: Oct 05, 2007 History of Pneumococcal: Yes Pneumococcal Date: Apr 24, 2016 History of Hepatitis B Vaccine: No Multi-Drug Resistant Organisms History of MDRO: No Allergies Coded Allergies: Penicillins (Verified Allergy, Intermediate, HIVES, 02/01/17) Iron Sucrose (Verified Adverse Reaction, Mild, n&v, abd pain, 02/01/17) Home Medications Scheduled Aspirin (Aspirin Ec), 81 MG PO DAILY Atorvastatin (Lipitor), 10 MG PO HS Bumetanide (Bumex), 0.5 MG PO QAM Buspirone HCl (Buspirone HCl), 5 MG PO DAILY Enteral Nutrition Formula (Nepro Carb Steady), 1 CAN PO BID Epoetin Rafael (Procrit), 10,000 UNITS SC q 3 weeks Ferrous Sulfate (Ferrous Sulfate), 325 MG PO BID Levothyroxine Sodium (Synthroid), 88 MCG PO DAILY Magnesium Oxide (Mg Supplement (Magox 400), 1 TAB PO DAILY Metoprolol Tartrate (Lopressor) (Lopressor), 12.5 MG PO BID Mirtazapine (Remeron), 15 MG PO HS Nifedipine (Nifedipine Er), 30 MG PO DAILY Pantoprazole (Protonix), 40 MG PO DAILY Polyethylene Glycol 3350 (Miralax), 17 GM PO DAILY Ranitidine (Zantac), 150 MG PO DAILY Scheduled PRN Docusate Sodium (Docusate Sodium), 1 CAP PO DAILY PRN for Constipation Lorazepam (Ativan), 1 MG PO BID PRN for Anxiety Review of Systems Constitutional: + weakness, No fever, No chills Eyes: No worsening of vision, No diplopia ENT: No problem reported Respiratory: No cough, No shortness of breath, No hemoptysis Cardiovascular: + chest pain, No palpitations Abdomen: No pain, No nausea, No vomiting, No diarrhea, No constipation, No GI bleeding Genitourinary - Female: + urinary frequency, No dysuria, No urinary urgency, No urinary incontinence, No hematuria Neurologic: + weakness, No numbness/tingling, No vertigo, No balance problems Psychiatric: + depression symptoms, + anxiety Hematologic / Lymphatic: + problem reported (bruising in R hip after fall 1 week ago, also on L knee) Integumentary: No rash, No bleeding Allergic / Immunologic: No food allergies Physical Exam Vital Signs Date Time Temp Pulse Resp B/P (MAP) Pulse Ox O2 Delivery O2 Flow Rate FiO2 02/01/17 15:53 62 17 152/43 100 02/01/17 15:45 62 17 152/43 100 Room Air 02/01/17 14:34 100 Room Air 02/01/17 13:50 63 17 147/44 100 Room Air 02/01/17 13:05 63 121/44 66 126/34 70 78/50 02/01/17 12:30 61 02/01/17 12:15 36.9 61 14 161/44 100 Room Air GEN: thin, frail, in no acute distress, alert and appropriate, appears anxious. HEENT: NC/AT, PERRL, normal sclerae, EOMI, MMM, multiple missing teeth CARDIO: reg rate, S1/2 heard without m/g/r, no LE swelling or edema LUNGS: CTA bilaterally, no crackles, rales or wheezes, good diaphragmatic excursion ABD: soft, non-tender, non-distended, no rebound or guarding, +BS EXTREMITY: RP and DP palpable 2+ bilat, extremities are warm and well-perfused. Ecchymosis on R lateral thigh and L anterior knee. NEURO: CN 2-12 gross intact, sensation intact throughout, coordination intact, 2 + knee reflex bilaterally, S1 reflex could not be elicited MUSC: 5/5 strength throughout, no focal deficits SKIN: warm and dry and bruising as above. Diagnostics Laboratory Results Results Past 24 Hours Test 02/01/17 12:29 02/01/17 12:30 02/01/17 13:05 Range/Units Bedside Glucose 99 70-90 mg/dl White Blood Count 4.45 4.8-10.8 K/uL Red Blood Count 2.21 4.2-5.4 M/uL Hemoglobin 7.7 12.0-16.0 g/dL Hematocrit 21.9 37-47 % Mean Corpuscular Volume 99.1 80-100 fL Mean Corpuscular Hemoglobin 34.8 25-34 pg Mean Corpuscular Hemoglobin Concent 35.2 32-36 g/dl Platelet Count 187 130-400 K/uL Mean Platelet Volume 9.7 7.4-10.4 fL Neutrophils (%) (Auto) 59.8 % Lymphocytes (%) (Auto) 28.8 % Monocytes (%) (Auto) 9.0 % Eosinophils (%) (Auto) 1.8 % Basophils (%) (Auto) 0.4 % Neutrophils # (Auto) 2.66 1.4-6.5 K/uL Lymphocytes # (Auto) 1.28 1.2-3.4 K/uL Monocytes # (Auto) 0.40 0.11-0.59 K/uL Eosinophils # (Auto) 0.08 0-0.5 K/uL Basophils # (Auto) 0.02 0-0.2 K/uL RDW Standard Deviation 48.6 36.4-46.3 fL RDW Coefficient of Variation 13.4 11.5-14.5 % Immature Granulocyte % (Auto) 0.2 % Immature Granulocyte # (Auto) 0.01 0.00-0.02 K/uL Red Blood Cell Morphology Unremarkable Sodium Level 127 136-145 mmol/L Potassium Level 4.2 3.5-5.1 mmol/L Chloride Level 91 98-107 mmol/L Carbon Dioxide Level 30 21-32 mmol/L Anion Gap 6.0 3-11 mmol/L Blood Urea Nitrogen 34 7-18 mg/dl Creatinine 1.80 0.60-1.20 mg/dl Est Creatinine Clear Calc Drug Dose 16.1 ml/min Estimated GFR () 29.0 Estimated GFR (Non- 25.0 BUN/Creatinine Ratio 19.1 10-20 Random Glucose 96 70-99 mg/dl Calcium Level 9.1 8.5-10.1 mg/dl Total Bilirubin 0.6 0.2-1 mg/dl Direct Bilirubin 0.2 0-0.2 mg/dl Aspartate Amino Transf (AST/SGOT) 25 15-37 U/L Alanine Aminotransferase (ALT/SGPT) 30 12-78 U/L Alkaline Phosphatase 107 45-117 U/L Troponin I < 0.015 0-0.045 ng/ml Total Protein 6.9 6.4-8.2 gm/dl Albumin 3.7 3.4-5.0 gm/dl Thyroid Stimulating Hormone (TSH) 1.140 0.300-4.500 uIu/ml Free Thyroxine 1.49 0.80-1.60 ng/dl Urine Color YELLOW Urine Appearance CLOUDY CLEAR Urine pH 5.5 4.5-7.5 Urine Specific [place] 1.012 1.000-1.030 Urine Protein TRACE NEG Urine Glucose (UA) NEG NEG Urine Ketones NEG NEG Urine Occult Blood TRACE NEG Urine Nitrite NEG NEG Urine Bilirubin NEG NEG Urine Urobilinogen NEG NEG Urine Leukocyte Esterase LARGE NEG Urine WBC (Auto) >30 0-5 /hpf Urine RBC (Auto) 0-4 0-4 /hpf Urine Hyaline Casts (Auto) 0 0-5 /lpf Urine Epithelial Cells (Auto) 10-20 0-5 /lpf Urine Bacteria (Auto) 4+ NEG Microbiology Results 02/01/17 Urine Culture, Received Pending Diagnostic Radiology CHEST 2 VIEWS ROUTINE CLINICAL HISTORY: eval for pnea dyspnea COMPARISON STUDY: 01/25/2017 FINDINGS: The bones soft tissues and hemidiaphragms are normal. The cardiomediastinal silhouette is normal. The lungs are clear. The pulmonary vasculature is normal. IMPRESSION: Negative chest. HEAD CT NONCONTRAST CT DOSE: 537.48 mGy.cm HISTORY: Mental status change eval for bleed TECHNIQUE: Multiaxial CT images of the head were performed without the use of intravenous contrast. Comparison: 01/25/2017 Findings: The paranasal sinuses and mastoid air cells are clear. Age-related chronic small vessel change. No acute intracranial hemorrhage. No midline shift. Impression: Age-related change. No acute process. No change from the prior exam. EKG SR 60, 1AVB Impression Assessment and Plan 86 yo F with significant uncontrolled anxiety presents with symptomatic anemia and generalized weakness in her legs likely 2/2 UTI 1. Symptomatic anemia-renal patient with recent fall and bruising. No GI bleeding present. She receives procrit regularly. Will give 1 Unit of pRBCs and consult Nephro for assistance. Holding iron so as to not complicate hospitalization with nausea or constipation as these are well-knoen side effects. 2. UTI-uncomplicated apparent cystitis. PCN allergy with hives so will not give Rocephin empirically, nitrofurantoin a possibility but would like to give something IV and this is typically bacteriostatic. Opted for IV Cipro with renal dosing and will change abx based on culture which is pending. 3. Lightheadedness and weakness 2/.2 above. Reassess after treatment started. PT/OT consult. After blood will reassess volume status and ensure ok to give IVF. Hold diuretics for now. 4. Anxiety-uncontrolled, cont Buspar and Ativan PRN for now and adjust as needed. 5. CKD Stage IV-consult Nephro as above. Renal Diet. Renally dose meds. Avoid contrast when able. 6. HTN-OK to cont Norvasc but will hold Metoprolol in setting of significant orthostasis so as not to dull ability to augment her cardiac output. 7. Atypical chest pain-clinical picture is not consistent with ACS. Chest pain has not presented today. Suspect related to anemia above or random. EKG WNL. Monitor on tele overnight and check one more set of cardiac enzymes. DVT proph-SCDs, chemoprophylaxis contraindicated in setting of anemia FULL CODE Dispo-to telemetry Hannah Walsh DO [facility] Level of Care Telemetry Advanced Directives Existing Living Will: No Existing Power of Field Tax Auditor: No Resuscitation Status FULL RESUSCITATION VTE Prophylaxis VTE Risk Assessment Done? Y/N: Yes Risk Level: Moderate Given or contraindicated: SCD's, Contraindicated
[2017-02-01] MEDS ORDERED: ACETAMINOPHEN 325 MG TAB PO ONE (17:00)
[2017-02-01] MEDS ORDERED: CIPROFLOXACIN CONSULT ACTIVE PRN ×2 (17:00)
[2017-02-01] MEDS: CIPROFLOXACIN / D5W 400 MG in PREMIXED IN D5W 200 ML IV SCH (17:21)
--- NOTE | 2017-02-01 19:25 | EMERGENCY ROOM VISIT NOTE ---
History Report prepared by Unique: Heidi La Under the Supervision of: Dr. Leon Fry M.D. First contact with patient: 12:39 Chief Complaint: DIZZY Stated Complaint: ILL Nursing Triage Summary: c/o of dizziness, lightheaded, and weakness since last night. States her head doesnt feel right. Fell approx 1-2 weeks ago. Pt states she did hit her head when she fell. Not on blood thinners. History of Present Illness The patient is a 86 year old female who presents to the Emergency Room with complaints of feeling lightheaded beginning yesterday. The patient states that she fell 1 week ago. She reports that it feels as if there is pressure in the back of her head. The patient denies having a headache, fever, cough, diarrhea, shortness of breath, and chest pain. Additionally, the patient denies having urinary symptoms and black or bloody stool. She states that she has an irregular heartbeat and felt that a "twinge" in her chest yesterday. Source of History: patient Onset: yesterday Position: other (Global) Quality: other (lightheadedness) Timing: constant Associated Symptoms: No fevers, No headache, No cough, No chest pain, No SOB , No melena, No hematochezia, No diarrhea, No urinary symptoms Note: additional symptoms: felt a twinge on her right heart, irregular heartbeat Review of Systems See HPI for pertinent positives & negatives. A total of 10 systems reviewed and were otherwise negative. Past Medical & Surgical Medical Problems: (1) Anemia, chronic disease (2) Anxiety (3) CKD (chronic kidney disease), stage IV (4) Dizziness (5) GERD (gastroesophageal reflux disease) (6) H/O echocardiogram (7) HLD (hyperlipidemia) (8) HTN (hypertension) (9) Hypothyroidism (10) Palpitations (11) SIADH (syndrome of inappropriate ADH production) Surgical Problems: (1) Hx of appendectomy (2) Hx of cholecystectomy (3) Hx of dilation and curettage (4) Status post total hip replacement, left Family History FHx: heart disease Hypertension Social History Smoking Status: Never Smoker Alcohol Use: none Drug Use: none Marital Status: Housing Status: lives with family Occupation Status: retired Current/Historical Medications Scheduled Aspirin (Aspirin Ec), 81 MG PO DAILY Atorvastatin (Lipitor), 10 MG PO HS Bumetanide (Bumex), 0.5 MG PO QAM Buspirone HCl (Buspirone HCl), 5 MG PO DAILY Enteral Nutrition Formula (Nepro Carb Steady), 1 CAN PO BID Epoetin Rafael (Procrit), 10,000 UNITS SC q 3 weeks Ferrous Sulfate (Ferrous Sulfate), 325 MG PO BID Levothyroxine Sodium (Synthroid), 88 MCG PO DAILY Magnesium Oxide (Mg Supplement (Magox 400), 1 TAB PO DAILY Metoprolol Tartrate (Lopressor) (Lopressor), 12.5 MG PO BID Mirtazapine (Remeron), 15 MG PO HS Nifedipine (Nifedipine Er), 30 MG PO DAILY Pantoprazole (Protonix), 40 MG PO DAILY Polyethylene Glycol 3350 (Miralax), 17 GM PO DAILY Ranitidine (Zantac), 150 MG PO DAILY Scheduled PRN Docusate Sodium (Docusate Sodium), 1 CAP PO DAILY PRN for Constipation Lorazepam (Ativan), 1 MG PO BID PRN for Anxiety Allergies Coded Allergies: Penicillins (Verified Allergy, Intermediate, HIVES, 02/01/17) Iron Sucrose (Verified Adverse Reaction, Mild, n&v, abd pain, 02/01/17) Physical Exam Vital Signs Date Time Temp Pulse Resp B/P (MAP) Pulse Ox O2 Delivery O2 Flow Rate FiO2 02/01/17 14:34 100 Room Air 02/01/17 13:50 63 17 147/44 100 Room Air 02/01/17 13:05 63 121/44 66 126/34 70 78/50 02/01/17 12:30 61 02/01/17 12:15 36.9 61 14 161/44 100 Room Air Physical Exam Constitutional: Vital signs reviewed. Eyes: Pupils are equal round reactive to light. Conjunctiva are noninjected. ENT: Pharynx is clear without erythema or exudate. Mucous membranes are moist. Neck supple without meningeal signs. Respiratory: Clear to auscultation bilaterally. Breath sounds are equal bilaterally. Cardiovascular: Regular rate and rhythm. No rubs or gallops. GI: Soft, nondistended and nontender. Bowel sounds are present. Musculoskeletal: No peripheral edema. No lower extremity tenderness. Integumentary: No cyanosis. Neurological: The patient is awake and alert. No focal deficits. Psychiatric: Anxious. Medical Decision & Procedures ER Provider Diagnostic Interpretation: CT results as stated below per my review and radiologist interpretation. HEAD CT NONCONTRAST CT DOSE: 537.48 mGy.cm HISTORY: Mental status change eval for bleed TECHNIQUE: Multiaxial CT images of the head were performed without the use of intravenous contrast. Comparison: 01/25/2017 Findings: The paranasal sinuses and mastoid air cells are clear. Age-related chronic small vessel change. No acute intracranial hemorrhage. No midline shift. Impression: Age-related change. No acute process. No change from the prior exam. Electronically signed by: Rob Mike M.D. 02/01/2017 1:27 PM Dictated Date/Time: 02/01/2017 1:26 PM X-ray results as stated below per interpretation by me and the radiologist: CHEST 2 VIEWS ROUTINE CLINICAL HISTORY: eval for pnea dyspnea COMPARISON STUDY: 01/25/2017 FINDINGS: The bones soft tissues and hemidiaphragms are normal. The cardiomediastinal silhouette is normal. The lungs are clear. The pulmonary vasculature is normal. IMPRESSION: Negative chest. Electronically signed by: Rob Mike M.D. 02/01/2017 1:40 PM Dictated Date/Time: 02/01/2017 1:39 PM Laboratory Results 02/01/17 12:30 Red Blood Count 2.21, Mean Corpuscular Volume 99.1, Mean Corpuscular Hemoglobin 34.8, Mean Corpuscular Hemoglobin Concent 35.2, Mean Platelet Volume 9.7, Neutrophils (%) (Auto) 59.8, Lymphocytes (%) (Auto) 28.8, Monocytes (%) (Auto) 9.0, Eosinophils (%) (Auto) 1.8, Basophils (%) (Auto) 0.4, Neutrophils # (Auto) 2.66, Lymphocytes # (Auto) 1.28, Monocytes # (Auto) 0.40, Eosinophils # (Auto) 0.08, Basophils # (Auto) 0.02 02/01/17 12:30 Test 02/01/17 12:29 02/01/17 12:30 02/01/17 13:05 Bedside Glucose 99 mg/dl (70-90) White Blood Count 4.45 K/uL (4.8-10.8) Red Blood Count 2.21 M/uL (4.2-5.4) Hemoglobin 7.7 g/dL (12.0-16.0) Hematocrit 21.9 % (37-47) Mean Corpuscular Volume 99.1 fL (80-100) Mean Corpuscular Hemoglobin 34.8 pg (25-34) Mean Corpuscular Hemoglobin Concent 35.2 g/dl (32-36) Platelet Count 187 K/uL (130-400) Mean Platelet Volume 9.7 fL (7.4-10.4) Neutrophils (%) (Auto) 59.8 % Lymphocytes (%) (Auto) 28.8 % Monocytes (%) (Auto) 9.0 % Eosinophils (%) (Auto) 1.8 % Basophils (%) (Auto) 0.4 % Neutrophils # (Auto) 2.66 K/uL (1.4-6.5) Lymphocytes # (Auto) 1.28 K/uL (1.2-3.4) Monocytes # (Auto) 0.40 K/uL (0.11-0.59) Eosinophils # (Auto) 0.08 K/uL (0-0.5) Basophils # (Auto) 0.02 K/uL (0-0.2) RDW Standard Deviation 48.6 fL (36.4-46.3) RDW Coefficient of Variation 13.4 % (11.5-14.5) Immature Granulocyte % (Auto) 0.2 % Immature Granulocyte # (Auto) 0.01 K/uL (0.00-0.02) Red Blood Cell Morphology Unremarkable Anion Gap 6.0 mmol/L (3-11) Est Creatinine Clear Calc Drug Dose 16.1 ml/min Estimated GFR () 29.0 Estimated GFR (Non- 25.0 BUN/Creatinine Ratio 19.1 (10-20) Calcium Level 9.1 mg/dl (8.5-10.1) Total Bilirubin 0.6 mg/dl (0.2-1) Direct Bilirubin 0.2 mg/dl (0-0.2) Aspartate Amino Transf (AST/SGOT) 25 U/L (15-37) Alanine Aminotransferase (ALT/SGPT) 30 U/L (12-78) Alkaline Phosphatase 107 U/L (45-117) Total Protein 6.9 gm/dl (6.4-8.2) Albumin 3.7 gm/dl (3.4-5.0) Thyroid Stimulating Hormone (TSH) 1.140 uIu/ml (0.300-4.500) Free Thyroxine 1.49 ng/dl (0.80-1.60) Urine Color YELLOW Urine Appearance CLOUDY (CLEAR) Urine pH 5.5 (4.5-7.5) Urine Specific [place] 1.012 (1.000-1.030) Urine Protein TRACE (NEG) Urine Glucose (UA) NEG (NEG) Urine Ketones NEG (NEG) Urine Occult Blood TRACE (NEG) Urine Nitrite NEG (NEG) Urine Bilirubin NEG (NEG) Urine Urobilinogen NEG (NEG) Urine Leukocyte Esterase LARGE (NEG) Urine WBC (Auto) >30 /hpf (0-5) Urine RBC (Auto) 0-4 /hpf (0-4) Urine Hyaline Casts (Auto) 0 /lpf (0-5) Urine Epithelial Cells (Auto) 10-20 /lpf (0-5) Urine Bacteria (Auto) 4+ (NEG) Laboratory results as reviewed by me. Medications Administered Medications (Trade) Dose Ordered Sig/Jassi Route Start Time Stop Time Status Last Admin Dose Admin Sodium Chloride 500 ml @ 999 mls/hr Q31M STAT IV 02/01/17 13:17 02/01/17 13:47 DC 02/01/17 13:45 999 MLS/HR ECG Indication: other (lightheadedness ) Rate (beats per minute): 60 Rhythm: sinus rhythm Findings: 1st degree AV block, no ectopy, other (baseline artifact limiting interpretation ) ED Course 1240: The patient was evaluated in room C10. A complete history and physical exam was performed. 1316: The patient has orthostatic hypotension and will be treated with IV fluids. 1317: Ordered Sodium Chloride 500 ml @ 999 mls/hr IV. 1338: I performed a rectal exam. She is guaiac negative with brown stool. The patient states that she is due for her Procrit shot this week. 1409: I discussed the results with the patient. 1500: I reevaluated the patient and discussed the treatment plan, and she consents. I spoke with Dr. Walsh of [facility]. We discussed the patient and her results. The patient will be further evaluated by Dr. Walsh. Medical Decision This is an 86-year-old female presents with dizziness and head pressure. Differential diagnosis includes dehydration, metabolic derangement, cardiac, infection, intracranial hemorrhage. I did perform a limited focused review of portions of the patient's old chart on the electronic medical record. The patient was seen here on January 25 after a fall and had a CT of her head and cervical spine which were unremarkable. She was seen on January 17 and was noted to have a Sodium of 126, which is chronic for her. Blood Pressure Screening: Patient was found to have an elevated blood pressure and was referred to their primary doctor for recheck and further treatment. Medication Reconciliation: I attest that I have personally reviewed the patient' s current medication list. I did evaluate the patient as noted above. The patient is presenting with lightheadedness. She also complains of head pressure and had a recent head injury. IV access was established. The patient was placed on a continuous ekg monitor. Orthostatic vital signs were obtained and she is significantly orthostatic. Her pressure drops into the 70s when standing. She was given normal saline IV. I did order and personally review the patient's 12- lead EKG and chest x-ray as described above. I did order and review the patient 's blood work as noted in the electronic medical record. She is significantly anemic. She does have chronic hyponatremia and an elevated creatinine as well. I did perform a rectal examination which was guaiac negative with brown stool. She does state that she receives Procrit regularly and her anemia secondary to chronic kidney disease. I did order a CT of the head. I did review the images myself as well as the radiology report as described above. There is no evidence of acute intracranial abnormality. I did discuss the test results with the patient. I did recommend hospitalization for transfusion given her symptomatic anemia. I also obtained a urinalysis which is concerning for infection. I did discuss case with the shoe parts caser. She was hospitalized. Consults Time Called: 1430 Consulting Physician: Dr. Walsh Returned Call: [address] Walsh of [facility]. We discussed the patient and her results. The patient will be further evaluated by Dr. Walsh. Impression Primary Impression: Symptomatic anemia Additional Impressions: Orthostatic hypotension Chronic kidney disease UTI (urinary tract infection) Hyponatremia Scribe Attestation The scribe's documentation has been prepared under my direct and personally reviewed by me in its entirety. I confirm that the note above accurately reflects all work, treatment, procedures, and medical decision making performed by me. Departure Information Dispostion Being Evaluated By Hospitalist Referrals Yogesh Quevedo III, M.D. (PCP) Patient Instructions My [facility] Problem Qualifiers Additional Impressions: Chronic kidney disease Chronic kidney disease stage: unspecified stage Qualified Codes: N18.9 - Chronic kidney disease, unspecified UTI (urinary tract infection) Urinary tract infection type: site unspecified
[2017-02-01] MEDS: ATORVASTATIN 10 MG TAB PO SCH (20:56)
[2017-02-01] MEDS: MIRTAZAPINE TAB 15 MG TAB PO SCH (20:56)
[2017-02-02] VITALS (8 sets, daily range): BP systolic 117–155; BP diastolic 50–71; PULSE 59–74; TEMP 36.4–36.8; O2SAT 95–98
[2017-02-02 06:04] LABS: HEMATOCRIT 23.4 % (37-47); MEAN CELL VOLUME 98.3 fL (80-100); MEAN CORPUSCULAR HEMOGLOBIN 33.6 pg (25-34); MEAN CORPUSCULAR HGB CONC 34.2 g/dl (32-36); PLATELET COUNT 142 K/uL (130-400); RED BLOOD COUNT 2.38 M/uL (4.2-5.4); WHITE BLOOD COUNT 4.71 K/uL (4.8-10.8)
[2017-02-02] MEDS: LEVOTHYROXINE 88 MCG TAB PO SCH (06:26)
[2017-02-02 06:31] LABS: BUN/CREATININE RATIO 19.1 (10-20); CALCIUM 8.5 mg/dl (8.5-10.1); CREATININE 2.1 mg/dl (0.60-1.20); MAGNESIUM 2.6 mg/dl (1.8-2.4); PHOSPHORUS 3.4 mg/dl (2.5-4.9); POTASSIUM 4.4 mmol/L (3.5-5.1)
[2017-02-02] MEDS: RANITIDINE HCL 150 MG TAB PO SCH (08:55)
[2017-02-02] MEDS: ACETAMINOPHEN 325 MG TAB PO PRN (08:55)
[2017-02-02] MEDS: ASPIRIN 81 MG ECTAB PO SCH (08:56)
[2017-02-02] MEDS: MAGNESIUM OXIDE 400 MG TAB PO SCH (08:56)
[2017-02-02] MEDS: NIFEdipine 30 MG CR TAB PO SCH (08:56)
[2017-02-02] MEDS: PANTOprazole SOD 40 MG TAB PO SCH (08:56)
[2017-02-02] MEDS ORDERED: BUMETANIDE 1 MG TAB PO SCH (09:00)
[2017-02-02] MEDS: PHENAZOPYRIDINE HCL 100 MG TAB PO SCH ×3 (09:04→21:07)
[2017-02-02] MEDS: LORAZEPAM 1 MG TAB PO PRN ×2 (09:11→21:13)
[2017-02-02] MEDS: CIPROFLOXACIN / D5W 400 MG in PREMIXED IN D5W 200 ML IV SCH (17:13)
[2017-02-02] MEDS: ATORVASTATIN 10 MG TAB PO SCH (21:07)
[2017-02-02] MEDS: MIRTAZAPINE TAB 15 MG TAB PO SCH (21:07)
--- NOTE | 2017-02-02 22:43 | Progress Note ---
Medicine Progress Note Date & Time of Visit: Feb 02, 2017 at 17:05. Subjective 86 yo F with significant uncontrolled anxiety presents with symptomatic anemia and generalized weakness in her legs likely 2/2 UTI -doing OK today -very anxious and reports not feeling well because she is scared of everything -states that she was offered an SSRI in the past but didn't trust the psychiatrist and never took it -she denies chest pain -she denies lightheadedness and appears confused when I ask her about this. -she ambulated well with PT today Objective Last 8 Hrs Date Time Temp Pulse Resp B/P (MAP) Pulse Ox O2 Delivery O2 Flow Rate FiO2 02/02/17 16:16 36.4 70 18 139/50 (79) 95 Room Air 02/02/17 11:50 36.5 62 16 151/53 (85) 97 Room Air Physical Exam: GEN: WNWD, in no acute distress, alert and appropriate HEENT: NC/AT, normal sclerae, MMM CARDIO: reg rate, S1/2 heard without m/g/r LUNGS: CTA bilaterally, no crackles, rales or wheezes, good diaphragmatic excursion ABD: soft, non-tender, non-distended, no rebound or guarding, +BS EXTREMITY: RP and DP palpable 2+ bilat, no LE swelling or edema, extremities are warm and well-perfused N/M: no gross focal deficits SKIN: warm and dry Laboratory Results: 02/02/17 05:29 02/02/17 05:29 Test 02/01/17 12:29 02/01/17 12:30 02/01/17 13:05 02/01/17 18:04 Bedside Glucose 99 mg/dl (70-90) Immature Granulocyte % (Auto) 0.2 % White Blood Count 4.45 K/uL (4.8-10.8) Red Blood Count 2.21 M/uL (4.2-5.4) Hemoglobin 7.7 g/dL (12.0-16.0) Hematocrit 21.9 % (37-47) Mean Corpuscular Volume 99.1 fL (80-100) Mean Corpuscular Hemoglobin 34.8 pg (25-34) Mean Corpuscular Hemoglobin Concent 35.2 g/dl (32-36) Platelet Count 187 K/uL (130-400) Mean Platelet Volume 9.7 fL (7.4-10.4) Neutrophils (%) (Auto) 59.8 % Lymphocytes (%) (Auto) 28.8 % Monocytes (%) (Auto) 9.0 % Eosinophils (%) (Auto) 1.8 % Basophils (%) (Auto) 0.4 % Neutrophils # (Auto) 2.66 K/uL (1.4-6.5) Lymphocytes # (Auto) 1.28 K/uL (1.2-3.4) Monocytes # (Auto) 0.40 K/uL (0.11-0.59) Eosinophils # (Auto) 0.08 K/uL (0-0.5) Basophils # (Auto) 0.02 K/uL (0-0.2) Immature Granulocyte # (Auto) 0.01 K/uL (0.00-0.02) Red Blood Cell Morphology Unremarkable Total Bilirubin 0.6 mg/dl (0.2-1) Direct Bilirubin 0.2 mg/dl (0-0.2) Aspartate Amino Transf (AST/SGOT) 25 U/L (15-37) Alanine Aminotransferase (ALT/SGPT) 30 U/L (12-78) Alkaline Phosphatase 107 U/L (45-117) Total Protein 6.9 gm/dl (6.4-8.2) Albumin 3.7 gm/dl (3.4-5.0) Thyroid Stimulating Hormone (TSH) 1.140 uIu/ml (0.300-4.500) Free Thyroxine 1.49 ng/dl (0.80-1.60) Urine Color YELLOW Urine Appearance CLOUDY (CLEAR) Urine pH 5.5 (4.5-7.5) Urine Specific [place] 1.012 (1.000-1.030) Urine Protein TRACE (NEG) Urine Glucose (UA) NEG (NEG) Urine Ketones NEG (NEG) Urine Occult Blood TRACE (NEG) Urine Nitrite NEG (NEG) Urine Bilirubin NEG (NEG) Urine Urobilinogen NEG (NEG) Urine Leukocyte Esterase LARGE (NEG) Urine WBC (Auto) >30 /hpf (0-5) Urine RBC (Auto) 0-4 /hpf (0-4) Urine Hyaline Casts (Auto) 0 /lpf (0-5) Urine Epithelial Cells (Auto) 10-20 /lpf (0-5) Urine Bacteria (Auto) 4+ (NEG) Total Creatine Kinase 51 U/L (26-192) Creatine Kinase MB < 0.5 ng/ml (0.5-3.6) Creatine Kinase MB Ratio (0-3.0) Troponin I < 0.015 ng/ml (0-0.045) Test 02/02/17 05:29 Red Blood Count 2.38 M/uL (4.2-5.4) Mean Corpuscular Volume 98.3 fL (80-100) Mean Corpuscular Hemoglobin 33.6 pg (25-34) Mean Corpuscular Hemoglobin Concent 34.2 g/dl (32-36) RDW Standard Deviation 54.5 fL (36.4-46.3) RDW Coefficient of Variation 15.3 % (11.5-14.5) Mean Platelet Volume 9.0 fL (7.4-10.4) Anion Gap 7.0 mmol/L (3-11) Est Creatinine Clear Calc Drug Dose 13.8 ml/min Estimated GFR () 24.1 Estimated GFR (Non- 20.8 BUN/Creatinine Ratio 19.1 (10-20) Calcium Level 8.5 mg/dl (8.5-10.1) Phosphorus Level 3.4 mg/dl (2.5-4.9) Magnesium Level 2.6 mg/dl (1.8-2.4) Date/Time Source Procedure Growth Status 02/01/17 13:05 Urine , Clean Catch Urine Culture - Preliminary Escherichia Coli Resulted Last 24 Hours Test 02/01/17 18:04 02/02/17 05:29 Total Creatine Kinase 51 U/L Creatine Kinase MB < 0.5 ng/ml Creatine Kinase MB Ratio Troponin I < 0.015 ng/ml White Blood Count 4.71 K/uL Red Blood Count 2.38 M/uL Hemoglobin 8.0 g/dL Hematocrit 23.4 % Mean Corpuscular Volume 98.3 fL Mean Corpuscular Hemoglobin 33.6 pg Mean Corpuscular Hemoglobin Concent 34.2 g/dl RDW Standard Deviation 54.5 fL RDW Coefficient of Variation 15.3 % Platelet Count 142 K/uL Mean Platelet Volume 9.0 fL Sodium Level 129 mmol/L Potassium Level 4.4 mmol/L Chloride Level 93 mmol/L Carbon Dioxide Level 29 mmol/L Anion Gap 7.0 mmol/L Blood Urea Nitrogen 40 mg/dl Creatinine 2.10 mg/dl Est Creatinine Clear Calc Drug Dose 13.8 ml/min Estimated GFR () 24.1 Estimated GFR (Non- 20.8 BUN/Creatinine Ratio 19.1 Random Glucose 77 mg/dl Calcium Level 8.5 mg/dl Phosphorus Level 3.4 mg/dl Magnesium Level 2.6 mg/dl Assessment & Plan 86 yo F with significant uncontrolled anxiety presents with symptomatic anemia and generalized weakness in her legs likely 2/2 UTI 1. Symptomatic anemia-renal patient with recent fall and bruising. No GI bleeding present. She receives procrit regularly. Gave 1 unit pRBCs last night with improvement in H/H to 04/01. Holding iron so as to not complicate hospitalization with nausea or constipation as these are well-known side effects. She denies lightheadedness at this time. 2. UTI-uncomplicated apparent cystitis. PCN allergy with hives so will not give Rocephin empirically, nitrofurantoin a possibility but would like to give something IV and this is typically bacteriostatic. Opted for IV Cipro with renal dosing and will change abx based on culture which is pending. 3. Acute urinary retention-in setting of infection. Started pyridium for dysuria and placed Villegas with 1L return into Villegas. Will attempt Villegas trial in am after some more time on abx. Will give 500 cc of fluid today. 4. ROGER 2/2 urinary obstruction--expect improvement after Villegas placement. Trend in am. 5. Lightheadedness and weakness 2/2 above. PT/OT evals today with pt able to return home when medically stable. Cont to hold diuretics for now. 6. Anxiety-uncontrolled, cont Buspar and Ativan PRN for now and adjust as needed. Consult mental health to evaluate. Appears very limiting. 7. CKD Stage IV-consult Nephro as above. Renal Diet. Renally dose meds. Avoid contrast when able. 8. HTN-OK to cont Norvasc but will hold Metoprolol in setting of significant orthostasis so as not to dull ability to augment her cardiac output. 9. Atypical chest pain-clinical picture is not consistent with ACS. Chest pain has not presented today or yesterday. Suspect related to anemia above or random. EKG WNL. Serial cardiac enzymes were negative overnight. 10;. Hyponatremia-chronic. Cont to trend. DVT proph-SCDs, chemoprophylaxis contraindicated in setting of anemia FULL CODE Dispo-home when AUR resolved. [facility] Consultants: Nephro Current Inpatient Medications: Current Inpatient Medications Medications (Trade) Dose Ordered Sig/Jassi Route Start Time Stop Time Status Last Admin Dose Admin Acetaminophen (Tylenol Tab) 650 mg Q4H PRN PO 02/01/17 16:00 03/03/17 15:59 02/02/17 08:55 650 MG Ondansetron HCl (Zofran Inj) 4 mg Q6H PRN IV 02/01/17 16:00 03/03/17 15:59 Aspirin (Ecotrin Tab) 81 mg DAILY PO 02/02/17 09:00 03/04/17 08:59 02/02/17 08:56 81 MG Atorvastatin Calcium (Lipitor Tab) 10 mg HS PO 02/01/17 21:00 03/03/17 20:59 02/01/17 20:56 10 MG Bumetanide (Bumex Tab) 0.5 mg QAM PO 02/02/17 09:00 03/04/17 08:59 Future Hold Buspirone HCl (Buspar Tab) 5 mg DAILY PO 02/02/17 09:00 03/04/17 08:59 02/02/17 08:56 5 MG Levothyroxine Sodium (Synthroid Tab) 88 mcg DAILYBB PO 02/02/17 06:30 03/04/17 06:29 02/02/17 06:26 88 MCG Lorazepam (Ativan Tab) 1 mg BID PRN PO 02/01/17 16:15 03/03/17 16:14 02/02/17 09:11 1 MG Magnesium Oxide (Mag-Ox Tab) 400 mg DAILY PO 02/02/17 09:00 03/04/17 08:59 02/02/17 08:56 400 MG Nifedipine (Procardia Xl Tab) 30 mg DAILY PO 02/02/17 09:00 03/04/17 08:59 02/02/17 08:56 30 MG Pantoprazole Sodium (Protonix Tab) 40 mg DAILY PO 02/02/17 09:00 03/04/17 08:59 02/02/17 08:56 40 MG Ranitidine HCl (zANTac TAB) 150 mg DAILY PO 02/02/17 09:00 03/04/17 08:59 02/02/17 08:55 150 MG Polyethylene (Miralax Powder Packet) 17 gm DAILY PRN PO 02/01/17 16:15 03/03/17 16:14 02/02/17 13:20 17 GM Mirtazapine (Remeron Tab) 15 mg HS PO 02/01/17 21:00 03/03/17 20:59 02/01/17 20:56 15 MG Ciprofloxacin/ Dextrose 400 mg/ Prmx 200 ml @ 100 mls/hr Q24H IV 02/01/17 17:00 02/06/17 16:59 02/01/17 17:21 100 MLS/HR Ciprofloxacin (Consult) 1 ea UD PRN N/A 02/01/17 17:00 03/03/17 16:59 Phenazopyridine HCl (Pyridium Tab) 100 mg TID PO 02/02/17 09:00 02/04/17 08:59 02/02/17 13:20 100 MG
[2017-02-02] MEDS ORDERED: SODIUM CHLORIDE 0.9% 500ML 500 ML IV SCH (22:45)
[2017-02-03] MEDS: METOPROLOL TARTRATE 25 MG TAB PO SCH ×2 (00:46→07:15)
[2017-02-03] MEDS: LEVOTHYROXINE 88 MCG TAB PO SCH (05:17)
[2017-02-03 07:01] VITALS: BP 191/76; PULSE 65; TEMP 36.7; O2SAT 96
[2017-02-03] MEDS: LORAZEPAM 1 MG TAB PO PRN (07:13)
[2017-02-03] MEDS: NIFEdipine 30 MG CR TAB PO SCH (07:14)
[2017-02-03 07:15] VITALS: BP 172/58; PULSE 68
[2017-02-03 07:27] LABS: HEMATOCRIT 25.5 % (37-47); MEAN CELL VOLUME 98.1 fL (80-100); MEAN CORPUSCULAR HEMOGLOBIN 33.5 pg (25-34); MEAN CORPUSCULAR HGB CONC 34.1 g/dl (32-36); MEAN PLATELET VOLUME 9.5 fL (7.4-10.4); PLATELET COUNT 183 K/uL (130-400); WHITE BLOOD COUNT 4.68 K/uL (4.8-10.8)
[2017-02-03 07:54] LABS: BUN/CREATININE RATIO 20.3 (10-20); CREATININE 1.7 mg/dl (0.60-1.20); POTASSIUM 4.4 mmol/L (3.5-5.1)
[2017-02-03 08:50] VITALS: BP 135/45; PULSE 63
[2017-02-03] MEDS: PANTOprazole SOD 40 MG TAB PO SCH (08:50)
[2017-02-03] MEDS: ASPIRIN 81 MG ECTAB PO SCH (08:50)
[2017-02-03] MEDS: PHENAZOPYRIDINE HCL 100 MG TAB PO SCH ×3 (08:50→13:57)
[2017-02-03] MEDS: RANITIDINE HCL 150 MG TAB PO SCH (08:50)
[2017-02-03] MEDS: ACETAMINOPHEN 325 MG TAB PO PRN (08:52)
[2017-02-03] MEDS: MAGNESIUM OXIDE 400 MG TAB PO SCH (10:28)
[2017-02-03 11:37] VITALS: BP 159/49; PULSE 86; TEMP 36.7; O2SAT 97
[2017-02-03] MEDS ORDERED: ESCITALOPRAM OXALATE 10 MG TAB PO ONE (12:46)
--- NOTE | 2017-02-03 12:46 | Psychiatric Consultation ---
Consultation Date of Consultation Feb 03, 2017. Identifying Data Briseyda Domínguez is a 86-year-old female who currently lives in [place] with her and daughter. She presented to the ER with a 2 day course of dizziness, weakness. We are consulted to evaluate anxiety. Information is obtained from the patient, her by phone and the EHR and considered to be reliable Chief Complaint "I just can't get a hold of myself.". History of Present Illness The patient says that she has struggled with anxiety her whole life. She admits that she worries about everything every day. She lives with her and her 65 yo daughter Soni, who has never lived independently. She worries about Soni leaving the house at night thinking that she will be harmed, she worries about her own health and that of her Donte. She sees Dr. Abdi, who according to the external med hx, recently prescribed Celexa 5 mg daily as well as ativan and buspar. She takes the ativan, and buspar, but not the Celexa. Her daughter helps her with her meds. The patient says that her mood is "tense", worrying about getting the miller catheter out and voiding on her own. She reports good appetite, but sleep is chronically disturbed, with difficulty falling asleep most nights. Her anxiety rises to the level of a panic attack on an almost daily basis, and the panic appears to come out of nowhere. She denies any hallucinations currently but says that several years ago she had visual hallucinations of a truck on a hill near their house, that her family says wasn't there. It went away on its own. She denies symptoms of OCD. She denies thoughts of suicide. I speak with her Donte by phone. He says that her anxiety has been worse lately, worrying about her kidneys. He has not seen her to be hallucinating, but at times is disoriented, for example when she comes home from the hospital, she gets confused where she is. She does occasionally make suicidal statements such as wanting to walk out into the road, but she has never acted on this. Daughter Soni helps with meds, is not home currently, and Donte is not completely sure what she takes. he confirmed that she sees a psychiatrist. Past Psychiatric History Current OP Treatment: psychiatrist Prior OP Treatment: therapist (possible [facility] in 2014) Prior Psych Hospitalizations: none Suicide Attempts: No Past Medication Trials Cymbalta, Remeron, Celexa prescribed but not taken Past Medical/Surgical History (1) Chronic kidney disease (2) Anemia (3) GERD (gastroesophageal reflux disease) (4) Hypothyroidism (5) SIADH (syndrome of inappropriate ADH production) Allergies Allergies: Coded Allergies: Penicillins (Verified Allergy, Intermediate, HIVES, 02/01/17) Iron Sucrose (Verified Adverse Reaction, Mild, n&v, abd pain, 02/01/17) Home Medications Scheduled Aspirin (Aspirin Ec), 81 MG PO DAILY Atorvastatin (Lipitor), 10 MG PO HS Bumetanide (Bumex), 0.5 MG PO QAM Buspirone HCl (Buspirone HCl), 5 MG PO DAILY Enteral Nutrition Formula (Nepro Carb Steady), 1 CAN PO BID Epoetin Rafael (Procrit), 10,000 UNITS SC q 3 weeks Ferrous Sulfate (Ferrous Sulfate), 325 MG PO BID Levothyroxine Sodium (Synthroid), 88 MCG PO DAILY Magnesium Oxide (Mg Supplement (Magox 400), 1 TAB PO DAILY Metoprolol Tartrate (Lopressor) (Lopressor), 12.5 MG PO BID Mirtazapine (Remeron), 15 MG PO HS Nifedipine (Nifedipine Er), 30 MG PO DAILY Pantoprazole (Protonix), 40 MG PO DAILY Polyethylene Glycol 3350 (Miralax), 17 GM PO DAILY Ranitidine (Zantac), 150 MG PO DAILY Scheduled PRN Docusate Sodium (Docusate Sodium), 1 CAP PO DAILY PRN for Constipation Lorazepam (Ativan), 1 MG PO BID PRN for Anxiety Family History FHx: heart disease Hypertension History of Suicide: No History of Substance Abuse: No Psychiatric History: Yes (Grandfather in a mental institution) Alcohol Use Alcohol Use In Past 12 Months: No Smoking Use Smoking Status: Never Smoker Substance History None Personal History Lives in: [place] with and daughter Education: other (Completed 8th grade) 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 [employer] Relationship History: ( for 68 years to Donte) Children: 2 daughters, one Legal History: none Psychological Trauma History: Other (none) Review of Systems Constitutional: other (chronic anxiety) Eyes: denies: no symptoms, as stated in HPI, eye pain, tearing, itching, redness, discharge, double vision, visual changes, blurred vision, photophobia, other ENT: denies: no symptoms reported, see HPI, ear pain, ear discharge, loss of hearing, tinnitus, nasal pain, nasal congestion, rhinorrhea, epistaxis, sore throat, stidor, throat swelling, mouth pain, mouth swelling, dental pain, gum swelling, other Cardiovascular: denies: no symptoms reported, see HPI, chest pain, chest tightness, chest pressure, diaphoresis, palpitations, syncope, other Respiratory: denies: no symptoms reported, see HPI, cough, orthopnea, short of breath, stridor, wheezing, sputum production, cyanosis, LEYVA, PND, other Gastrointestinal: denies no symptoms reported, denies see HPI, denies abdominal pain, denies constipation, denies diarrhea, denies nausea, denies vomiting, denies other Genitourinary - Female: reports: other (Currently with miller) Musculoskeletal: denies no symptoms reported, denies see HPI, denies back pain , denies gout, denies joint pain, denies joint swelling, denies muscle pain, denies muscle stiffness, denies neck pain, denies other Integumentary: denies no symptoms reported, denies see HPI, denies change in color, denies change in hair/nails, denies dryness, denies lesions, denies lumps , denies rash, denies other Neurologic: denies: no symptoms, see HPI, headache, numbness, paresthesias, pre -existing deficit, seizure, tingling, tremors, general weakness, tics, focal weakness, vertigo, lethargy, memory loss, dizziness, other Endocrine: denies: no symptoms, as stated in HPI, cold intolerance, heat intolerance, hair changes, goiter, polydipsia, polyuria, skin changes, other Hematologic / Lymphatic: denies: no symptoms, as stated in HPI, abnormal clotting, adenopathy, anemia, easy bleeding, easy bruising, gums bleeding, petechiae, other Examination Physical Examination As per Dr. Walsh Vital Signs Vital Signs Past 12 Hours Date Time Temp Pulse Resp B/P (MAP) Pulse Ox O2 Delivery O2 Flow Rate FiO2 02/03/17 11:37 36.7 86 16 159/49 (85) 97 Room Air 02/03/17 08:50 63 135/45 (75) 02/03/17 08:00 Room Air 02/03/17 07:15 68 172/58 (96) 02/03/17 07:01 36.7 65 20 191/76 (114) 96 Room Air 02/03/17 04:00 Room Air 02/03/17 00:45 Room Air Laboratory Results Last 24 Hours Test 02/03/17 06:33 White Blood Count 4.68 K/uL Red Blood Count 2.60 M/uL Hemoglobin 8.7 g/dL Hematocrit 25.5 % Mean Corpuscular Volume 98.1 fL Mean Corpuscular Hemoglobin 33.5 pg Mean Corpuscular Hemoglobin Concent 34.1 g/dl RDW Standard Deviation 51.8 fL RDW Coefficient of Variation 14.4 % Platelet Count 183 K/uL Mean Platelet Volume 9.5 fL Sodium Level 131 mmol/L Potassium Level 4.4 mmol/L Chloride Level 97 mmol/L Carbon Dioxide Level 28 mmol/L Anion Gap 6.0 mmol/L Blood Urea Nitrogen 35 mg/dl Creatinine 1.70 mg/dl Est Creatinine Clear Calc Drug Dose 17.1 ml/min Estimated GFR () 31.1 Estimated GFR (Non- 26.8 BUN/Creatinine Ratio 20.3 Random Glucose 82 mg/dl Mental Examination During interview pt is: alert and oriented Appearance: appropriately groomed Eye contact is: fair Motor behavior is: no abnormal motor movements Speech: normal in rate, rhythm & volume Affect: anxious Mood is: anxious Thought process: goal directed Thought content: cognitive distortions Suicidal thought are: denied Homicidal thoughts are: denied Hallucinations: denies auditory, denies visual Cognition: attention grossly intact, language grossly intact Intelligence estimated to be: average Insight: limited Judgement: limited Impression / Recommendations Impression 86 yo with multiple medical conditions admitted with dizziness and weakness. We are consulted to evaluate anxiety. She was last seen by our service in 2014 with a very similar picture and was recommended to titrate ADM, either Zoloft or Remeron. The history psychiatrically since then is still a little vague, but she is apparently in treatment with Dr. Abdi, and per the external med history, recently prescribed Buspar in January and Celexa 5 mg in December. Its not clear which if any she is actually taking, as she can't remember and her daughter Soni is not currently available to confirm. She clearly needs a good trial of an SSRI for her acute on chronic anxiety, and associated depressed mood , but will need to be monitored for hyponatremia as she was admitted with a sodium of 127. In a woman of her age, I would avoid Celexa due to possible cardiac side effects, but recommend Lexapro 5 mg. daily. She denies SI, but says that she makes suicidal statements, no act. I suspect that she makes these statements as an expression of her distress, but should be followed by her OP psychiatrist. I do not think that she meets criteria for inpatient treatment, nor do I think she would benefit from it. I will have the liaison nurse have her sign and AIDA for Dr. Abdi both to get records to confirm meds, and to send him our records. She is fearful of psych meds somehow making her goofy or confused, and so am suspicious that she won't take them. We should be in communication with daughter Soni about her meds. Inventory Assets Strengths: Love of her family Needs: To take meds as prescribed Risk Factors Assessment : Yes /single/: No Higher / Fall in social status: No Access to guns: No Health problems: Yes Mental Health Diagnoses: Yes Substance use disorders: No Previous attempt: No Previous psychiatric stay: No Hopelessness: No Smoker: No Protective Factors Assessment : Yes Responsible for young children: No Employed: No Stable relationships: Yes Supportive family: Yes Recommendations (1) FRANCES (generalized anxiety disorder) 02/03 -Start Lexapro 5 mg. daily with caution to hyponatremia. Sodium should be followed regularly as an OP - Continue Buspar - Would recommend taper of ativan in deference to her age, and also due to the fact she will use this and exclude other more appropriate psychiatric meds - Liaison will return to have her sign and AIDA to get records from and send records to Dr. Abdi - Communicate with daughter re: med changes. - Does not meet criteria for inpatient care. (2) Major depressive disorder, recurrent, moderate 02/03 - Meds as above - Denies SI to me, but makes statements at home to . Should be followed by her OP psychiatrist. - Has been in therapy in the past, and may benefit from CBT for anxiety currently Has been reviewed with Dr. Melodie Jimenez
[2017-02-03 12:55] LABS: CALCIUM 8.8 mg/dl (8.5-10.1)
[2017-02-03 15:09] VITALS: BP 132/61; PULSE 66; TEMP 36.3; O2SAT 98
[2017-02-03] MEDS ORDERED: CPR500 PO (16:45)
[2017-02-03] MEDS ORDERED: ESCI1TAB6 PO (16:45)
--- NOTE | 2017-02-03 16:50 | Discharge Instructions ---
Discharge Instructions Date of Service Feb 03, 2017. Admission Reason for Admission: Dizziness Discharge Discharge Diagnosis / Problem: Symptomatic anemia, Uncontrolled Anxiety Discharge Goals Goal(s): Prevent Disease Progression Activity Recommendations Activity Limitations: per Instructions/Follow-up section . Instructions / Follow-Up Instructions / Follow-Up Please take all medications as instructed. It is strongly recommended that you follow up with your psychiatrist as an outpatient. You have been given a prescription for Lexapro which is an anti- depressant. On this medication, your sodium level will need to be monitored closely by your doctor. You have a follow-up appointment to see Dr. Brown on 02/06 @1:15pm. Please bring all paperwork from this hospitalization with you when you go. Dr. Hwang mentioned that you are to have a Procrit injection tomorrow. Please contact your normal person who typically arranges this. It was a pleasure taking care of you! Call if you have any questions or problems. You can reach a [facility] hospitalist on duty at [facility] 24 hours a day by calling [phone]. Take care of yourself. Hannah Walsh DO [facility] Hospitalist Current Hospital Diet Patient's current hospital diet: Renal Diet, AHA Diet (Heart Healthy) Discharge Diet Recommended Diet: AHA Diet (Heart Healthy) Procedures Procedures Performed: None. Pending Studies Studies pending at discharge: no Medical Emergencies . Who to Call and When: Medical Emergencies: If at any time you feel your situation is an emergency, please call 911 immediately. . Non-Emergent Contact Non-Emergency issues call your: Primary Care Provider . . "Provider Documentation" section prepared by Hannah Walsh. . VTE Core Measure Inpt VTE Proph given/why not?: SCD's, Contraindicated
--- NOTE | 2017-02-03 16:53 | Discharge Summary ---
Discharge Summary Date of Service Feb 03, 2017. Discharge Summary Admission Date: Feb 01, 2017 at 15:08 Discharge Date: Feb 03, 2017 Discharge Disposition: Home Principal Diagnosis: Symptomatic anemia s/p 1 unit blood transfusion Anemia of chronic disease CKD IV UTI 2/2 E coli Acute urinary retention-resolved ROGER 2/2 urinary obstruction-resolved. Ambulatory dysfunction-at baseline per PT eval Severe uncontrolled anxiety HTN Chronic hyponatremia Procedures: Villegas placement Vaccinations: None. Consultations: Nephro Pending Studies/Follow-Up: see instructions below. Medication Reconciliation New Medications: Ciprofloxacin (Ciprofloxacin HCl) 500 Mg Tab 500 MG PO DAILY@1700 for 3 Days, #3 TAB Escitalopram Oxalate (Lexapro) 5 Mg Tab 5 MG PO DAILY for 30 Days, #30 TAB Continued Medications: Aspirin (Aspirin Ec) 81 Mg Tab 81 MG PO DAILY Atorvastatin (Lipitor) 10 Mg Tab 10 MG PO HS, TAB Bumetanide (Bumex) 1 Mg Tab 0.5 MG PO QAM, TAB Buspirone HCl (Buspirone HCl) 5 Mg Tab 5 MG PO DAILY, #30 Docusate Sodium (Docusate Sodium) 100 Mg Cap 1 CAP PO DAILY PRN for Constipation for 7 Days, #7 CAP Enteral Nutrition Formula (Nepro Carb Steady) 1 Can Liqd 1 CAN PO BID, CAN Epoetin Rafael (Procrit) 10,000 [place] 61787 UNITS SC q 3 weeks Ferrous Sulfate (Ferrous Sulfate) 325 Mg Tab 325 MG PO BID, TAB Levothyroxine Sodium (Synthroid) 88 Mcg Tab 88 MCG PO DAILY, TAB Lorazepam (Ativan) 1 Mg Tab 1 MG PO BID PRN for Anxiety, TAB Magnesium Oxide (Mg Supplement (Magox 400) 241.3 Mg Tab 1 TAB PO DAILY Metoprolol Tartrate (Lopressor) (Lopressor) 25 Mg Tab 12.5 MG PO BID, TAB Mirtazapine (Remeron) 15 Mg Tab 15 MG PO HS, 3 Refills Nifedipine (Nifedipine Er) 30 Mg Tab 30 MG PO DAILY, 5 Refills Pantoprazole (Protonix) 40 Mg Tab 40 MG PO DAILY, TAB Polyethylene Glycol 3350 (Miralax) 1 Pow Pow 17 GM PO DAILY, #527 GM Ranitidine (Zantac) 150 Mg Tab 150 MG PO DAILY, TAB Admission Information HPI (per Admitting provider): 86 yo F with stage IV renal disease presents with lightheadedness and weakness in her legs which has been present for the past two days. She said the lightheadedness came on while she was sleeping last night and she doesn't know what triggers it, but was orthostatic positive in the ER today. She states that she has "had to go to the bathroom" multiple times daily over the last week. She denies any dysuria, flank pain, pelvic pain, fevers or chills or blood in urine. She denies any blood in her stool, but did fall 1 week ago and was seen in the ER for this. She does have a large area of ecchymosis on her R hip today which is a deep purple. She is ambulatory and denies lightheadedness when walking to the bathroom in the ER today. She reports a "twinge" of chest pain in the center of her chest that lasted seconds and was not associated with any concerning symptoms of palpitations, sweating, lightheadedness, nausea or SOB. She states this occurred two days in a row and denies any h/o cardiac disease or pain in the past. She does reports significant uncontrolled anxiety , however, and upon entering the room and asking how she was doing today she immediately went into how nervous and anxious she was about rats in her home. She denies any headache but reports a pressure in the back of her head. In the ER, she had a head CT that was negative and a CXR was also negative for an acute process. Her daughter brought her in today but was unavailable for questioning in person or by phone. The patient states that she lives with her and her daughter. Review of her outpatient records reveal multiple calls with the Campus Coordinator with significant anxiety present for multiple reasons. Physical Exam (per Admitting): GEN: thin, frail, in no acute distress, alert and appropriate, appears anxious. HEENT: NC/AT, PERRL, normal sclerae, EOMI, MMM, multiple missing teeth CARDIO: reg rate, S1/2 heard without m/g/r, no LE swelling or edema LUNGS: CTA bilaterally, no crackles, rales or wheezes, good diaphragmatic excursion ABD: soft, non-tender, non-distended, no rebound or guarding, +BS EXTREMITY: RP and DP palpable 2+ bilat, extremities are warm and well-perfused. Ecchymosis on R lateral thigh and L anterior knee. NEURO: CN 2-12 gross intact, sensation intact throughout, coordination intact, 2 + knee reflex bilaterally, S1 reflex could not be elicited MUSC: 5/5 strength throughout, no focal deficits SKIN: warm and dry and bruising as above. Hospital Course 86 yo F with significant uncontrolled anxiety presents with symptomatic anemia and generalized weakness in her legs likely 2/2 UTI 1. Symptomatic anemia-renal patient with recent fall and bruising. No GI bleeding present. She receives procrit regularly. Gave 1 unit pRBCs last night with improvement in H/H to 04/01. Holding iron so as to not complicate hospitalization with nausea or constipation as these are well-known side effects. She denies lightheadedness at this time. 2. UTI-uncomplicated apparent cystitis. PCN allergy with hives so will not give Rocephin empirically, nitrofurantoin a possibility but would like to give something IV and this is typically bacteriostatic. Opted for IV Cipro with renal dosing and will change abx based on culture which is pending. 3. Acute urinary retention-in setting of infection. Started pyridium for dysuria and placed Villegas with 1L return into Villegas. Will attempt Villegas trial in am after some more time on abx. Will give 500 cc of fluid today. 4. ROGER 2/2 urinary obstruction--expect improvement after Villegas placement. Trend in am. 5. Lightheadedness and weakness 2/2 above. PT/OT evals today with pt able to return home when medically stable. Cont to hold diuretics for now. 6. Anxiety-uncontrolled, cont Buspar and Ativan PRN for now and adjust as needed. Consult mental health to evaluate. Appears very limiting. 7. CKD Stage IV-consult Nephro as above. Renal Diet. Renally dose meds. Avoid contrast when able. 8. HTN-OK to cont Norvasc but will hold Metoprolol in setting of significant orthostasis so as not to dull ability to augment her cardiac output. 9. Atypical chest pain-clinical picture is not consistent with ACS. Chest pain has not presented today or yesterday. Suspect related to anemia above or random. EKG WNL. Serial cardiac enzymes were negative overnight. 10;. Hyponatremia-chronic. Cont to trend. DVT proph-SCDs, chemoprophylaxis contraindicated in setting of anemia FULL CODE Dispo-home when AUR resolved. DO Rayo Beltran Hospitalist Total time spent on discharge = 60 minutes This includes examination of the patient, discharge planning, medication reconciliation, and communication with other providers. Discharge Instructions Discharge Instructions Date of Service Feb 03, 2017. Admission Reason for Admission: Dizziness Discharge Discharge Diagnosis / Problem: Symptomatic anemia, Uncontrolled Anxiety Discharge Goals Goal(s): Prevent Disease Progression Activity Recommendations Activity Limitations: per Instructions/Follow-up section . Instructions / Follow-Up Instructions / Follow-Up Please take all medications as instructed. It is strongly recommended that you follow up with your psychiatrist as an outpatient. You have been given a prescription for Lexapro which is an anti- depressant. On this medication, your sodium level will need to be monitored closely by your doctor. You have a follow-up appointment to see Dr. Brown on 02/06 @1:15pm. Please bring all paperwork from this hospitalization with you when you go. Dr. Hwang mentioned that you are to have a Procrit injection tomorrow. Please contact your normal person who typically arranges this. It was a pleasure taking care of you! Call if you have any questions or problems. You can reach a [facility] hospitalist on duty at [facility] 24 hours a day by calling [phone]. Take care of yourself. DO Ld BeltranKern Valleyist Additional Copies To Samira Brown,
[2017-02-03] MEDS ORDERED: CIPROFLOXACIN 500 MG TAB PO SCH (17:00)
[2017-02-03 18:08] VITALS: BP 132/61; PULSE 66; TEMP 36.3; O2SAT 98
[2017-02-04] MEDS ORDERED: ESCITALOPRAM OXALATE 10 MG TAB PO SCH (09:00)
--- NOTE | 2017-02-04 09:15 | Progress Note ---
Progress Note Date of Service Feb 04, 2017. Progress Note Called and spoke with daughterSoni. Went over the issues. Pt has concerns about taking the Buspar and Lexapro together so we decided she won't fill the Lexapro script until she sees her psychiatrist and discussed this further. Daughter unable to fill scripts last night but will do so today and will get her the Cipro NIKOS. Doing well otherwise. All questions answered to daughter' s satisfaction who is the lead principal technical architect of her parents. Nico, DO
== END 2017-02-03 19:30 | disposition home or self-care (01) | DRG 683 ==
LOC: EDBD 12:10 → C.EDC 12:12 → C.MED 15:08 → ENRESERV 15:34
PROVIDERS: ADMIT Hospitalist; ATTEND Hospitalist
DX: N18.4 Chronic kidney disease, stage 4 (severe) (principal); F33.1 Major depressive disorder, recurrent, moderate; R45.851 Suicidal ideations; E22.2 Syndrome of inappropriate secretion of antidiuretic hormone; I12.9 Hypertensive chronic kidney disease with stage 1 through stage 4 chronic kidney disease, or unspecified chronic kidney disease; D63.1 Anemia in chronic kidney disease; N30.90 Cystitis, unspecified without hematuria; B96.20 Unspecified Escherichia coli [E. coli] as the cause of diseases classified elsewhere; R33.9 Retention of urine, unspecified; I95.1 Orthostatic hypotension; R07.89 Other chest pain; R26.2 Difficulty in walking, not elsewhere classified; F41.1 Generalized anxiety disorder; Z91.81 History of falling; Z96.642 Presence of left artificial hip joint; Z79.82 Long term (current) use of aspirin; Z79.899 Other long term (current) drug therapy; Z88.0 Allergy status to penicillin

== ENCOUNTER 2017-02-11 07:19 | Observation (INO) | payer OTHER ==
[~2017-02-11] VITALS: Ht 149.9 cm; Wt 52.3 kg
[~2017-02-11 07:19] MED LIST changes: +BSP/5 PO; +CPR500 PO; -ESCI10TA17 PO; +ESCI1TAB6 PO; +FERR325T5 PO; +MAGN10TA PO; -MAGN400T7 PO; +NUTR-773 PO; -RANI150T3 PO; +ZNTT/150 PO
[2017-02-11] MEDS ORDERED: SODIUM CHLORIDE 0.9% 1000ML 1,000 ML IV STA (07:48)
--- NOTE | 2017-02-11 07:55 | EMERGENCY ROOM VISIT NOTE ---
History First contact with patient: 07:24 Chief Complaint: CARDIAC ASSESSMENT Stated Complaint: CHEST PAINN/ PALPITATIONS Nursing Triage Summary: pt arrives via EMS reports " sob with chesp pressure started in the middle of the night and did not get better " pt cont to report sob , denies cp at this time EMS admin ASA 324mg nitro X1 History of Present Illness The patient is a 86 year old female who presents to the Emergency Room with complaints of chest pain, shortness of breath and back pain. The patient states that she has had dyspnea intermittently overnight. She states that it is worse when she lays down. She states that she also had chest pain overnight. She describes it as a chest pressure. She states that she felt as though her heart skipped. She was given aspirin and nitroglycerin by EMS and states her chest pain went away. The patient also has a history of chronic anxiety and did take anxiety medications last night. The patient denies any lightheadedness or dizziness. She was recently admitted for symptomatically anemia and urinary tract infection. She also has a history of chronic kidney disease. She took Cipro and states she feels as though the urine infection has improved. She denies any abdominal pain, nausea or vomiting. She reports generalized malaise. Review of Systems A 10 system review of systems was completed with positives and pertinent negatives listed in the HPI. Past Medical/Surgical History Medical Problems: (1) Anemia, chronic disease (2) Anxiety (3) Chest pain (4) CKD (chronic kidney disease), stage IV (5) Dizziness (6) FRANCES (generalized anxiety disorder) (7) GERD (gastroesophageal reflux disease) (8) H/O echocardiogram (9) HLD (hyperlipidemia) (10) HTN (hypertension) (11) Hypothyroidism (12) Major depressive disorder, recurrent, moderate (13) Palpitations (14) SIADH (syndrome of inappropriate ADH production) Surgical Problems: (1) Hx of appendectomy (2) Hx of cholecystectomy (3) Hx of dilation and curettage (4) Status post total hip replacement, left Family History FHx: heart disease Hypertension Social History Smoking Status: Never Smoker Alcohol Use: none Drug Use: none Marital Status: Housing Status: lives with family Occupation Status: retired Current/Historical Medications Scheduled Aspirin (Aspirin Ec), 81 MG PO DAILY Atorvastatin (Lipitor), 10 MG PO HS Bumetanide (Bumex), 0.5 MG PO QAM Buspirone HCl (Buspirone HCl), 5 MG PO DAILY Enteral Nutrition Formula (Nepro Carb Steady), 1 CAN PO BID Epoetin Rafael (Procrit), 10,000 UNITS SC q 3 weeks Ferrous Sulfate (Ferrous Sulfate), 325 MG PO BID Levothyroxine Sodium (Synthroid), 88 MCG PO DAILY Magnesium Oxide (Mg Supplement (Magox 400), 1 TAB PO DAILY Metoprolol Tartrate (Lopressor) (Lopressor), 12.5 MG PO BID Mirtazapine (Remeron), 15 MG PO HS Nifedipine (Nifedipine Er), 30 MG PO DAILY Pantoprazole (Protonix), 40 MG PO DAILY Ranitidine (Zantac), 150 MG PO DAILY Scheduled PRN Docusate Sodium (Docusate Sodium), 1 CAP PO DAILY PRN for Constipation Lorazepam (Ativan), 1 MG PO BID PRN for Anxiety Allergies Coded Allergies: Penicillins (Verified Allergy, Intermediate, HIVES, 02/01/17) Iron Sucrose (Verified Adverse Reaction, Mild, n&v, abd pain, 02/01/17) Physical Exam Vital Signs Date Time Temp Pulse Resp B/P (MAP) Pulse Ox O2 Delivery O2 Flow Rate FiO2 02/11/17 11:23 100 Room Air 02/11/17 11:12 66 20 123/41 100 Room Air 02/11/17 10:12 62 02/11/17 10:04 69 18 158/62 96 Room Air 02/11/17 08:51 73 18 171/48 96 Room Air 02/11/17 08:20 76 152/44 77 151/50 82 159/50 02/11/17 07:25 74 02/11/17 07:24 36.8 72 20 164/58 96 Room Air Physical Exam VITALS: Vitals are noted on the nurse's note and reviewed by myself. Vital signs stable. The patient is afebrile. GENERAL: This is an ill-appearing 86-year-old female, in no acute distress, nondiaphoretic, well-developed well-nourished. SKIN: The skin was pale, without rashes, erythema, edema, or bruising. There is no tenting of the skin. Capillary reflex less than 2 seconds. HEAD: Normocephalic atraumatic. EARS: The external ears are normal in appearance. EYES: Pupils equal round and reactive to light and accommodation. Conjunctivae without injection, sclerae without icterus. Extraocular movements intact. NOSE: Patent, turbinates without inflammation or discharge. MOUTH: Mucous membranes moist. Tonsils are not enlarged. Pharynx without erythema or exudate. Uvula midline. Airway patent. Tongue does not deviate. NECK: Supple without nuchal rigidity. No JVD. HEART: Regular rate with occasional PVC. Pounding PMI. There is a holosystolic murmur present. LUNGS: Clear to auscultation bilaterally without wheezes, rales or rhonchi. No retractions or accessory muscle use. ABDOMEN: Positive bowel sounds x 4. Soft, nontender, without masses or organomegaly. MUSCULOSKELETAL: No muscle atrophy, erythema, or edema noted. Full range of motion without joint tenderness in all extremities. No tenderness to palpation. Normal gait. Strength 5/5 throughout. NEURO: Patient was alert and oriented to person place and time. The patient is sleepy. She will open her eyes and speak short answers. No focal neurological deficits. Medical Decision & Procedures ER Provider Diagnostic Interpretation: CHEST ONE VIEW PORTABLE CLINICAL HISTORY: chest pain dyspnea COMPARISON STUDY: 02/01/2017 FINDINGS: Mild stable cardiomegaly. Slight interstitial prominence. No focal infiltrate. IMPRESSION: Mild stable cardiomegaly. Slight nonspecific interstitial prominence. Laboratory Results 02/11/17 08:00 Red Blood Count 3.00, Mean Corpuscular Volume 96.7, Mean Corpuscular Hemoglobin 34.0, Mean Corpuscular Hemoglobin Concent 35.2, Mean Platelet Volume 9.5, Neutrophils (%) (Auto) 59.4, Lymphocytes (%) (Auto) 28.9, Monocytes (%) (Auto) 8.9, Eosinophils (%) (Auto) 2.0, Basophils (%) (Auto) 0.8, Neutrophils # (Auto) 3.00, Lymphocytes # (Auto) 1.46, Monocytes # (Auto) 0.45, Eosinophils # (Auto) 0.10, Basophils # (Auto) 0.04 02/11/17 08:00 Test 02/11/17 07:45 02/11/17 08:00 02/11/17 08:09 Urine Color YELLOW Urine Appearance CLEAR (CLEAR) Urine pH 7.0 (4.5-7.5) Urine Specific [place] 1.010 (1.000-1.030) Urine Protein TRACE (NEG) Urine Glucose (UA) NEG (NEG) Urine Ketones NEG (NEG) Urine Occult Blood NEG (NEG) Urine Nitrite NEG (NEG) Urine Bilirubin NEG (NEG) Urine Urobilinogen NEG (NEG) Urine Leukocyte Esterase NEG (NEG) Urine WBC (Auto) 0 /hpf (0-5) Urine RBC (Auto) 0-4 /hpf (0-4) Urine Hyaline Casts (Auto) 0 /lpf (0-5) Urine Epithelial Cells (Auto) 0-5 /lpf (0-5) Urine Bacteria (Auto) NEG (NEG) White Blood Count 5.05 K/uL (4.8-10.8) Red Blood Count 3.00 M/uL (4.2-5.4) Hemoglobin 10.2 g/dL (12.0-16.0) Hematocrit 29.0 % (37-47) Mean Corpuscular Volume 96.7 fL (80-100) Mean Corpuscular Hemoglobin 34.0 pg (25-34) Mean Corpuscular Hemoglobin Concent 35.2 g/dl (32-36) Platelet Count 166 K/uL (130-400) Mean Platelet Volume 9.5 fL (7.4-10.4) Neutrophils (%) (Auto) 59.4 % Lymphocytes (%) (Auto) 28.9 % Monocytes (%) (Auto) 8.9 % Eosinophils (%) (Auto) 2.0 % Basophils (%) (Auto) 0.8 % Neutrophils # (Auto) 3.00 K/uL (1.4-6.5) Lymphocytes # (Auto) 1.46 K/uL (1.2-3.4) Monocytes # (Auto) 0.45 K/uL (0.11-0.59) Eosinophils # (Auto) 0.10 K/uL (0-0.5) Basophils # (Auto) 0.04 K/uL (0-0.2) RDW Standard Deviation 48.8 fL (36.4-46.3) RDW Coefficient of Variation 13.9 % (11.5-14.5) Immature Granulocyte % (Auto) 0.0 % Immature Granulocyte # (Auto) 0.00 K/uL (0.00-0.02) Prothrombin Time 10.4 SECONDS (9.0-12.0) Prothromb Time International Ratio 1.0 (0.9-1.1) Activated Partial Thromboplast Time 27.3 SECONDS (21.0-31.0) Partial Thromboplastin Ratio 1.1 Anion Gap 8.0 mmol/L (3-11) Est Creatinine Clear Calc Drug Dose 20.4 ml/min Estimated GFR () 36.2 Estimated GFR (Non- 31.2 BUN/Creatinine Ratio 17.1 (10-20) Calcium Level 9.4 mg/dl (8.5-10.1) Magnesium Level 2.3 mg/dl (1.8-2.4) Total Bilirubin 0.6 mg/dl (0.2-1) Aspartate Amino Transf (AST/SGOT) 30 U/L (15-37) Alanine Aminotransferase (ALT/SGPT) 35 U/L (12-78) Alkaline Phosphatase 107 U/L (45-117) Total Creatine Kinase 42 U/L (26-192) Total Protein 7.4 gm/dl (6.4-8.2) Albumin 3.7 gm/dl (3.4-5.0) Globulin 3.7 gm/dl (2.5-4.0) Albumin/Globulin Ratio 1.0 (0.9-2) Bedside Lactic Acid Venous 0.65 mmol/L (0.90-1.70) Medications Administered Medications (Trade) Dose Ordered Sig/Jassi Route Start Time Stop Time Status Last Admin Dose Admin Sodium Chloride 1,000 ml @ 125 mls/hr Q8H STAT IV 02/11/17 07:48 02/11/17 13:22 DC 02/11/17 07:48 125 MLS/HR Lorazepam (Ativan Tab) 1 mg BID PRN PO 02/11/17 11:30 03/13/17 11:29 02/11/17 13:42 1 MG Procedure The patient was monitored on a peripatologist. They maintained a normal sinus rhythm without ectopy. ECG Indication: chest pain Rate (beats per minute): 74 Findings: 1st degree AV block Change: no significant change ED Course The patient was seen and examined. Previous visits were reviewed. The patient does not have a fever or leukocytosis. She does not have any significant electrolyte abnormality. BUN and creatinine are slightly elevated at 26 and 1.53 and sodium is 125. The patient does have a history of hyponatremia. Lactic acid is 0.65. Initial cardiac enzymes are not elevated. Urinalysis is negative. INR is 1.0. Chest x-ray does not reveal any acute finding The patient was hydrated with normal saline 125 mL per hour The patient presents to the emergency department with chest pressure and dyspnea. The patient's discomfort started last night. The patient stated her pain was completely resolved with nitroglycerin given by EMS. The patient does have a history of anxiety and this is likely a contributing factor. However, given the nature of her symptoms and the fact that her pain was alleviated by nitroglycerin, she would benefit from further evaluation and management in the hospital. [facility] and [facility] will [facility] the patient. The patient was also seen and examined by Dr. Yang who agrees with the assessment and treatment plan. Medication Reconciliation: I attest that I have personally reviewed the patient' s current medication list. Blood pressure screening: The patient was found to have an elevated blood pressure and was referred to their primary care doctor for recheck and further treatment Medical Decision DIFFERENTIAL DIAGNOSIS: Aortic dissection, myocarditis, pericarditis, cervical disc disease, costochondritis, herpes zoster, rib fracture, pleuritis, pneumonia , pulmonary embolus, tension pneumothorax, anxiety disorder, somatoform disorder , choledocholithiasis, status, esophagitis, esophageal spasm, esophageal reflux , esophageal rupture, pancreatitis, peptic ulcer disease, cardiac ischemia, ST elevation [place], acute coronary syndrome, arrhythmia, coronary artery vasospasm. vavular heart disease, coronary artery disease, among others. Impression Primary Impression: Precordial chest pain Departure Information Referrals Yogesh Quevedo III, M.D. (PCP) Forms IMPORTANT VISIT INFORMATION [facility] Instructions [facility]
[2017-02-11 08:04] LABS: URINE APPEARANCE CLEAR (CLEAR); URINE BILIRUBIN NEG (NEG); URINE COLOR YELLOW; URINE EPITHELIAL CELL AUTO 0-5 /lpf (0-5); URINE NITRITE NEG (NEG); UROBILINOGEN NEG (NEG); ZZUR CULT IF INDIC CLEAN CATCH NO
[2017-02-11 08:14] LABS: MANUAL MICROSCOPIC REQUIRED? NO; REVIEW REQ? NO
[2017-02-11 08:15] LABS: BASO % 0.8 %; BASO ABS # 0.04 K/uL (0-0.2); COMPLETE YES; LYMPH % 28.9 %; LYMPH ABS # 1.46 K/uL (1.2-3.4); MEAN CELL VOLUME 96.7 fL (80-100); MEAN CORPUSCULAR HGB CONC 35.2 g/dl (32-36); MEAN PLATELET VOLUME 9.5 fL (7.4-10.4); MONO % 8.9 %; NEUT % 59.4 %; PLATELET COUNT 166 K/uL (130-400); WHITE BLOOD COUNT 5.05 K/uL (4.8-10.8)
--- NOTE | 2017-02-11 08:17 | DIAGNOSTIC IMAGING REPORT ---
CHEST ONE VIEW PORTABLE CLINICAL HISTORY: chest pain dyspnea COMPARISON STUDY: 02/01/2017 FINDINGS: Mild stable cardiomegaly. Slight interstitial prominence. No focal infiltrate. IMPRESSION: Mild stable cardiomegaly. Slight nonspecific interstitial prominence. Electronically signed by: Rob Mike M.D. 02/11/2017 8:16 AM Dictated Date/Time: 02/11/2017 8:12 AM
[2017-02-11 08:31] LABS: ALT/SGPT 35 U/L (12-78); BLOOD UREA NITROGEN 26 mg/dl (7-18); BUN/CREATININE RATIO 17.1 (10-20); CALCIUM 9.4 mg/dl (8.5-10.1); CARBON DIOXIDE 26 mmol/L (21-32); CHLORIDE 91 mmol/L (98-107); GLUCOSE 93 mg/dl (70-99); MAGNESIUM 2.3 mg/dl (1.8-2.4); POTASSIUM 3.9 mmol/L (3.5-5.1); SODIUM 125 mmol/L (136-145)
[2017-02-11 08:35] LABS: PARTIAL THROMBOPLASTIN RATIO 1.1; PROTHROMBIN TIME (PATIENT) 10.4 SECONDS (9.0-12.0)
[2017-02-11 08:37] LABS: ALKALINE PHOSPHATASE 107 U/L (45-117); AST/SGOT 30 U/L (15-37)
--- NOTE | 2017-02-11 10:04 | EMERGENCY ROOM VISIT NOTE ---
ED Visit Note First contact with patient: 07:24 Patient was seen by our PA/DRAGLINE OPERATOR HELPER. I was involved in the patient's care and did evaluate the patient myself. I was involved in the care throughout the ER stay. The patient presents with chest pain which was relieved with nitroglycerin. Further cardiac workup is warranted.
[2017-02-11] MEDS ORDERED: NITROGLYCERIN 0.4 MG SL PER TAB CHARGE SL PRN (11:15)
[2017-02-11] MEDS ORDERED: ONDANSETRON INJ 2 MG/ML 2 ML VIAL IV PRN (11:15)
[2017-02-11 11:23] VITALS: O2SAT 100; Ht 149.9 cm; Wt 52.3 kg
[2017-02-11] MEDS ORDERED: DOCUSATE SODIUM 100 MG CAP PO PRN ×2 (11:30→13:30)
[2017-02-11] MEDS ORDERED: IV FLUIDS COMPLETED PRN (11:30)
--- NOTE | 2017-02-11 11:30 | History and Physical ---
History & Physical Date & Time of Service: Feb 11, 2017 at 11:30 Chief Complaint: Chest Painn/ Palpitations Primary Care Physician: Yogesh Quevedo III, M.D. History of Present Illness Source: patient, family, clinic records, hospital records 86 year old female with PMH of CKD stage 4, chronic anemia, atrial flutter, generalized anxiety, hypothyroidism presents to the Emergency Room with complaints of chest pain. She was recently admitted for symptomatically anemia and urinary tract infection. Pt is a very poor historian and was very anxious during the admission. Pt said that she woke up with the chest pain associated with shortness of breath. she said that the pain is sharp, non radiated. She said that she tried to lie down the chest pain seems worsening. Pt said that when EMS came she received 4 tabs of baby asa and nitro that helped with the chest pain. She states that she felt as though her heart skipped. Pt is very anxious and she wants to make sure that she will get her anxiety medication while in the hospital. Daughter said that pt is worried alot about her kidney function and sometimes she has to force her to take her other meds. Currently patient denies any chest pain, palpitation, dizziness, SOB, fever and chills. But she is very anxious right now. Past Medical/Surgical History Medical Problems: (1) Anemia, chronic disease Status: Chronic (2) Anxiety Status: Chronic (3) CKD (chronic kidney disease), stage IV Status: Chronic (4) FRANCES (generalized anxiety disorder) Status: Chronic (5) GERD (gastroesophageal reflux disease) Status: Chronic (6) H/O echocardiogram Permanent Comment: 03/2015 - EF 60-65%, moderate to severe aortic regurgitation Status: Chronic (7) HLD (hyperlipidemia) Status: Chronic (8) HTN (hypertension) Status: Chronic (9) Hypothyroidism Status: Chronic (10) Major depressive disorder, recurrent, moderate Status: Chronic (11) Palpitations Status: Chronic (12) SIADH (syndrome of inappropriate ADH production) Status: Chronic Surgical Problems: (1) Hx of appendectomy Status: Chronic (2) Hx of cholecystectomy Status: Chronic (3) Hx of dilation and curettage Status: Chronic (4) Status post total hip replacement, left Status: Chronic Family History FHx: heart disease Hypertension Social History Smoking Status: Never Smoker Alcohol Use: none Drug Use: none Marital Status: Housing status: lives with family Occupational Status: retired Immunizations History of Influenza Vaccine: Yes Influenza Vaccine Date: Apr 24, 2016 History of Tetanus Vaccine?: Yes Tetanus Immunization Date: Oct 05, 2007 History of Pneumococcal: Yes Pneumococcal Date: Apr 24, 2016 History of Hepatitis B Vaccine: No Multi-Drug Resistant Organisms History of MDRO: No Allergies Coded Allergies: Penicillins (Verified Allergy, Intermediate, HIVES, 02/01/17) Iron Sucrose (Verified Adverse Reaction, Mild, n&v, abd pain, 02/01/17) Home Medications Scheduled Aspirin (Aspirin Ec), 81 MG PO DAILY Atorvastatin (Lipitor), 10 MG PO HS Bumetanide (Bumex), 0.5 MG PO QAM Buspirone HCl (Buspirone HCl), 5 MG PO DAILY Enteral Nutrition Formula (Nepro Carb Steady), 1 CAN PO BID Epoetin Rafael (Procrit), 10,000 UNITS SC q 3 weeks Ferrous Sulfate (Ferrous Sulfate), 325 MG PO BID Levothyroxine Sodium (Synthroid), 88 MCG PO DAILY Magnesium Oxide (Mg Supplement (Magox 400), 1 TAB PO DAILY Metoprolol Tartrate (Lopressor) (Lopressor), 12.5 MG PO BID Mirtazapine (Remeron), 15 MG PO HS Nifedipine (Nifedipine Er), 30 MG PO DAILY Pantoprazole (Protonix), 40 MG PO DAILY Ranitidine (Zantac), 150 MG PO DAILY Scheduled PRN Docusate Sodium (Docusate Sodium), 1 CAP PO DAILY PRN for Constipation Lorazepam (Ativan), 1 MG PO BID PRN for Anxiety Review of Systems Constitutional: No fever, No chills, No sweats Eyes: No redness, No discharge ENT: + problem reported (decrease hearing function), No nasal symptoms, No sore throat Respiratory: + dyspnea on exertion, No cough, No sputum Cardiovascular: + chest pain, No claudication Abdomen: No pain, No nausea, No vomiting Musculoskeletal: No calf pain Genitourinary - Female: No dysuria, No urinary frequency Neurologic: No vertigo Psychiatric: + anxiety, No substance abuse Endocrine: No excessive thirst Hematologic / Lymphatic: No night sweats Integumentary: No rash, No itch Physical Exam Vital Signs Date Time Temp Pulse Resp B/P (MAP) Pulse Ox O2 Delivery O2 Flow Rate FiO2 02/11/17 11:12 66 20 123/41 100 Room Air 02/11/17 10:12 62 02/11/17 10:04 69 18 158/62 96 Room Air 02/11/17 08:51 73 18 171/48 96 Room Air 02/11/17 08:20 76 152/44 77 151/50 82 159/50 02/11/17 07:25 74 02/11/17 07:24 36.8 72 20 164/58 96 Room Air General Appearance: WD/WN, no apparent distress Head: normocephalic, atraumatic Eyes: normal inspection, PERRL, EOMI ENT: + pertinent finding (decrease hearing function) Neck: supple, no JVD Respiratory/Chest: chest non-tender, no respiratory distress, no accessory muscle use Cardiovascular: regular rate, rhythm, no JVD, + systolic murmur, + pertinent finding Abdomen/GI: normal bowel sounds, non tender Back: no CVA tenderness Extremities/Musculoskelatal: no calf tenderness 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, alert Skin: normal color, warm/dry, no rash Diagnostics Laboratory Results Results Past 24 Hours Test 02/11/17 07:45 02/11/17 08:00 02/11/17 08:09 Range/Units Urine Color YELLOW Urine Appearance CLEAR CLEAR Urine pH 7.0 4.5-7.5 Urine Specific [place] 1.010 1.000-1.030 Urine Protein TRACE NEG Urine Glucose (UA) NEG NEG Urine Ketones NEG NEG Urine Occult Blood NEG NEG Urine Nitrite NEG NEG Urine Bilirubin NEG NEG Urine Urobilinogen NEG NEG Urine Leukocyte Esterase NEG NEG Urine WBC (Auto) 0 0-5 /hpf Urine RBC (Auto) 0-4 0-4 /hpf Urine Hyaline Casts (Auto) 0 0-5 /lpf Urine Epithelial Cells (Auto) 0-5 0-5 /lpf Urine Bacteria (Auto) NEG NEG White Blood Count 5.05 4.8-10.8 K/uL Red Blood Count 3.00 4.2-5.4 M/uL Hemoglobin 10.2 12.0-16.0 g/dL Hematocrit 29.0 37-47 % Mean Corpuscular Volume 96.7 80-100 fL Mean Corpuscular Hemoglobin 34.0 25-34 pg Mean Corpuscular Hemoglobin Concent 35.2 32-36 g/dl Platelet Count 166 130-400 K/uL Mean Platelet Volume 9.5 7.4-10.4 fL Neutrophils (%) (Auto) 59.4 % Lymphocytes (%) (Auto) 28.9 % Monocytes (%) (Auto) 8.9 % Eosinophils (%) (Auto) 2.0 % Basophils (%) (Auto) 0.8 % Neutrophils # (Auto) 3.00 1.4-6.5 K/uL Lymphocytes # (Auto) 1.46 1.2-3.4 K/uL Monocytes # (Auto) 0.45 0.11-0.59 K/uL Eosinophils # (Auto) 0.10 0-0.5 K/uL Basophils # (Auto) 0.04 0-0.2 K/uL RDW Standard Deviation 48.8 36.4-46.3 fL RDW Coefficient of Variation 13.9 11.5-14.5 % Immature Granulocyte % (Auto) 0.0 % Immature Granulocyte # (Auto) 0.00 0.00-0.02 K/uL Prothrombin Time 10.4 9.0-12.0 SECONDS Prothromb Time International Ratio 1.0 0.9-1.1 Activated Partial Thromboplast Time 27.3 21.0-31.0 SECONDS Partial Thromboplastin Ratio 1.1 Sodium Level 125 136-145 mmol/L Potassium Level 3.9 3.5-5.1 mmol/L Chloride Level 91 98-107 mmol/L Carbon Dioxide Level 26 21-32 mmol/L Anion Gap 8.0 3-11 mmol/L Blood Urea Nitrogen 26 7-18 mg/dl Creatinine 1.50 0.60-1.20 mg/dl Est Creatinine Clear Calc Drug Dose 20.4 ml/min Estimated GFR () 36.2 Estimated GFR (Non- 31.2 BUN/Creatinine Ratio 17.1 10-20 Random Glucose 93 70-99 mg/dl Calcium Level 9.4 8.5-10.1 mg/dl Magnesium Level 2.3 1.8-2.4 mg/dl Total Bilirubin 0.6 0.2-1 mg/dl Aspartate Amino Transf (AST/SGOT) 30 15-37 U/L Alanine Aminotransferase (ALT/SGPT) 35 12-78 U/L Alkaline Phosphatase 107 45-117 U/L Total Creatine Kinase 42 26-192 U/L Creatine Kinase MB < 0.5 0.5-3.6 ng/ml Creatine Kinase MB Ratio 0-3.0 Troponin I < 0.015 0-0.045 ng/ml Total Protein 7.4 6.4-8.2 gm/dl Albumin 3.7 3.4-5.0 gm/dl Globulin 3.7 2.5-4.0 gm/dl Albumin/Globulin Ratio 1.0 0.9-2 Bedside Lactic Acid Venous 0.65 0.90-1.70 mmol/L Microbiology Results 02/11/17 Blood Culture, Received Pending 02/11/17 Blood Culture, Received Pending Diagnostic Radiology CHEST ONE VIEW PORTABLE CLINICAL HISTORY: chest pain dyspnea COMPARISON STUDY: 02/01/2017 FINDINGS: Mild stable cardiomegaly. Slight interstitial prominence. No focal infiltrate. IMPRESSION: Mild stable cardiomegaly. Slight nonspecific interstitial prominence. Electronically signed by: Rob Mike M.D. 02/11/2017 8:16 AM Impression Assessment and Plan CHEST PAIN Possible related to anxiety Need to R/O ACS 1st troponin negative will follow 2 more sets EKG did not show any ischemic changes repeat EKG in am Continue metoprolol/asa/ statin Will get a resting ECHO Consider cardiology consult if troponin trending up Monitor in telemetry SOB No signs of fluid overload Continue Bumex will follow echo Hx ATRIAL FLUTTER rate is controlled continue Lopressor Stable ANXIETY Continue ativan prn CKD STAGE IV - baseline creat runs in the high 1's - low 2's - noted to be 1.5 on admission - continue to monitor - avoid nephrotoxic agents when able SIADH - Na+ 125 - will start on gentle NS IVF - continue monitor bmp CHRONIC ANEMIA - due to CKD, receives Procrit injections - hgb 10.2 - Monitor cbc HTN - continue Nifedipine, metoprolol, bumex HYPOTHYROIDISM - continue levothyroxine DVT PROPHYLAXIS Recently admitted for Anemia SCDs for now CODE STATUS - Patient is a full code as per my discussion with her. Level of Care Telemetry Resuscitation Status FULL RESUSCITATION VTE Prophylaxis VTE Risk Assessment Done? Y/N: Yes Risk Level: Moderate Given or contraindicated: SCD's, Contraindicated (recent admission for anemia)
[2017-02-11 12:58] VITALS: BP 163/51; PULSE 75; TEMP 36.2; O2SAT 98
[2017-02-11] MEDS: LORAZEPAM 1 MG TAB PO PRN ×2 (13:42→20:50)
[2017-02-11] MEDS ORDERED: SODIUM CHLORIDE 0.9% 1000ML 1,000 ML IV ONE (14:15)
[2017-02-11 16:00] VITALS: BP 175/55; PULSE 66; TEMP 36.4; O2SAT 98
[2017-02-11 19:48] VITALS: BP 157/50; PULSE 62; TEMP 36.3; O2SAT 96
[2017-02-11 20:00] VITALS: O2SAT 98
[2017-02-11] MEDS: MIRTAZAPINE TAB 15 MG TAB PO SCH (20:51)
[2017-02-11] MEDS: BOOST BREEZE NUTRITION DRINK 1 BOX PO SCH (20:51)
[2017-02-11] MEDS: ATORVASTATIN 10 MG TAB PO SCH (20:52)
[2017-02-11] MEDS: FERROUS SULFATE 325 MG TAB PO SCH (20:52)
[2017-02-11] MEDS: METOPROLOL TARTRATE 25 MG TAB PO SCH (20:53)
[2017-02-11] MEDS ORDERED: NOVASOURCE RENAL 1000ML BAG PO SCH (21:00)
[2017-02-11 23:45] VITALS: BP 171/59; PULSE 66; TEMP 36.5; O2SAT 96
[2017-02-12] VITALS (12 sets, daily range): BP systolic 130–196; BP diastolic 45–78; PULSE 52–98; TEMP 36.3–36.6; O2SAT 96–100
[2017-02-12] MEDS ORDERED: ACETAMINOPHEN 325 MG TAB PO STA (00:40)
[2017-02-12] MEDS: LEVOTHYROXINE 88 MCG TAB PO SCH (05:50)
[2017-02-12 06:54] LABS: HEMATOCRIT 27.5 % (37-47); MEAN CELL VOLUME 98.2 fL (80-100); MEAN CORPUSCULAR HEMOGLOBIN 33.2 pg (25-34); MEAN CORPUSCULAR HGB CONC 33.8 g/dl (32-36); MEAN PLATELET VOLUME 9.4 fL (7.4-10.4); PLATELET COUNT 172 K/uL (130-400)
[2017-02-12 07:21] LABS: BUN/CREATININE RATIO 21.6 (10-20); CALCIUM 8.6 mg/dl (8.5-10.1); CREATININE 1.4 mg/dl (0.60-1.20); POTASSIUM 4.1 mmol/L (3.5-5.1)
[2017-02-12 07:32] LABS: THYROID STIMULATING HORMONE 1.57 uIu/ml (0.300-4.500)
--- NOTE | 2017-02-12 08:28 | ECHOCARDIOGRAM REPORT ---
*NOTICE TO RECEIVING [employer] This information is strictly Confidential and protected under [place] law. [place] law prohibits you from making any further disclosure of this information unless further disclosure is expressly permitted by the written consent of the person to whom it pertains or is authorized by law. A general authorization for the release of medical or other information is not sufficient for this purpose. Hospital accepts no responsibility if the information is made available to any other person, INCLUDING THE PATIENT. Interpretation Summary * Name: APOLONIA ROMERO Study Date: 02/11/2017 02:50 PM BP: 123/41 mmHg * Patient Location: [facility]\S\N278\S\1 HR: 66 * : 1930 (M/d/yyyy) Gender: Female Height: 59 in * Age: 86 yrs Ethnicity: [place] Weight: 121 lb * Ordering Physician: Roman Ortega * Performed By: Hetal Gotti * * Reason For Study: CHEST PAIN * BSA: 1.5 m2 * -- Conclusions -- * The left ventricle is normal in size. * Left ventricular systolic function is normal. * Ejection Fraction = 60-65%. * The right ventricular systolic function is normal. * The left atrium is borderline dilated. * Right atrial size is normal. * Mild aortic regurgitation. * There is moderate to severe tricuspid regurgitation. Procedure Details * A complete two-dimensional transthoracic echocardiogram was performed (2D, M-mode, Doppler and color flow Doppler). Left Ventricle * The left ventricle is normal in size. * There is normal left ventricular wall thickness. * Ejection Fraction = 60-65%. * Left ventricular systolic function is normal. * The left ventricular wall motion is normal. Right Ventricle * The right ventricle is normal size. * The right ventricular systolic function is normal. Atria * The left atrium is borderline dilated. * Right atrial size is normal. * There is no evidence of atrial septal defect, but resolution does not allow assessment for a patent foramen ovale. Mitral Valve * The mitral valve is grossly normal. * There is trace mitral regurgitation. Tricuspid Valve * The tricuspid valve is not well visualized, but is grossly normal. * There is moderate to severe tricuspid regurgitation. Aortic Valve * The aortic valve is tricuspid. The leaflet thickness if normal. There is no aortic stenosis, and no significant insufficiency. * Aortic stenosis is absent. * Mild aortic regurgitation. Pulmonic Valve * The pulmonic valve is not well visualized. * Mild pulmonic valvular regurgitation. MMode 2D Measurements and Calculations IVSd 1.0 cm IVSs 1.5 cm LVIDd 4.5 cm LVIDs 3.0 cm LVPWd 1.3 cm LVPWs 2.3 cm IVS/LVPW 0.79 FS 32.6 % EDV(Teich) 93.5 ml ESV(Teich) 36.3 ml EF(Teich) 61.1 % EDV(cubed) 92.5 ml ESV(cubed) 28.3 ml EF(cubed) 69.4 % % IVS thick 46.4 % % LVPW thick 76.5 % LV mass(C)d 193.7 grams LV mass(C)dI 130.0 grams/m\S\2 LV mass(C)s 248.4 grams LV mass(C)sI 166.7 grams/m\S\2 SV(Teich) 57.2 ml SI(Teich) 38.4 ml/m\S\2 SV(cubed) 64.2 ml SI(cubed) 43.1 ml/m\S\2 ACS 1.1 cm LA dimension 4.0 cm asc Aorta Diam 3.9 cm LVOT diam 1.6 cm LVOT area 2.0 cm\S\2 LVAd ap4 23.8 cm\S\2 LVLd ap4 6.8 cm EDV(MOD-sp4) 70.4 ml EDV(sp4-el) 70.9 ml LVAs ap4 14.3 cm\S\2 LVLs ap4 6.1 cm ESV(MOD-sp4) 27.2 ml ESV(sp4-el) 28.3 ml EF(MOD-sp4) 61.3 % EF(sp4-el) 60.1 % LVAd ap2 31.2 cm\S\2 LVLd ap2 7.8 cm EDV(MOD-sp2) 99.7 ml EDV(sp2-el) 106.0 ml LVAs ap2 17.0 cm\S\2 LVLs ap2 6.3 cm ESV(MOD-sp2) 38.8 ml ESV(sp2-el) 38.6 ml EF(MOD-sp2) 61.1 % EF(sp2-el) 63.6 % LVLd %diff 12.8 % EDV(MOD-bp) 92.5 ml LVLs %diff 2.6 % ESV(MOD-bp) 32.8 ml EF(MOD-bp) 64.6 % SV(MOD-sp4) 43.2 ml SI(MOD-sp4) 29.0 ml/m\S\2 SV(MOD-sp2) 61.0 ml SI(MOD-sp2) 40.9 ml/m\S\2 SV(MOD-bp) 59.8 ml SI(MOD-bp) 40.1 ml/m\S\2 SV(sp4-el) 42.6 ml SI(sp4-el) 28.6 ml/m\S\2 SV(sp2-el) 67.4 ml SI(sp2-el) 45.2 ml/m\S\2 Doppler Measurements and Calculations MV E max libby 106.2 cm/sec MV A max libby 99.2 cm/sec MV E/A 1.1 MV dec time 0.17 sec Ao V2 max 186.2 cm/sec Ao max PG 13.9 mmHg Ao max PG (full) 8.5 mmHg [place](V,A) 1.3 cm\S\2 [place](V,D) 1.3 cm\S\2 AI max libby 384.2 cm/sec AI max PG 59.6 mmHg AI dec slope 241.1 cm/sec\S\2 AI P1/2t 466.7 msec LV V1 max PG 5.4 mmHg LV V1 max 115.9 cm/sec PA V2 max 90.1 cm/sec PA max PG 3.2 mmHg PI end-d libby 51.8 cm/sec TR max libby 252.0 cm/sec
[2017-02-12] MEDS: NIFEdipine 30 MG CR TAB PO SCH (09:02)
[2017-02-12] MEDS: FERROUS SULFATE 325 MG TAB PO SCH ×2 (09:02→21:18)
[2017-02-12] MEDS: MAGNESIUM OXIDE 400 MG TAB PO SCH (09:02)
[2017-02-12] MEDS: METOPROLOL TARTRATE 25 MG TAB PO SCH ×2 (09:07→21:18)
[2017-02-12] MEDS: ASPIRIN 81 MG ECTAB PO SCH (09:08)
[2017-02-12] MEDS: RANITIDINE HCL 150 MG TAB PO SCH (09:08)
[2017-02-12] MEDS: BUMETANIDE 1 MG TAB PO SCH (09:08)
[2017-02-12] MEDS: BOOST BREEZE NUTRITION DRINK 1 BOX PO SCH ×2 (09:08→21:17)
[2017-02-12] MEDS: PANTOprazole SOD 40 MG TAB PO SCH (09:08)
[2017-02-12] MEDS ORDERED: ACETAMINOPHEN 500 MG TAB PO STA (10:49)
[2017-02-12] MEDS ORDERED: SODIUM CHLORIDE 0.9% 500ML 500 ML IV SCH (11:30)
--- NOTE | 2017-02-12 12:54 | Progress Note ---
Medicine Progress Note Date & Time of Visit: Feb 12, 2017 at 12:40. Subjective Pt was seen and examined Lying in bed with no distress pt said that she does not have anymore she said that she feels good she was worried because she did not void yet nurse just called and said that she voided 300ml on her own denies any chest pain, palpitation, dizziness and sob Objective Last 8 Hrs Date Time Temp Pulse Resp B/P (MAP) Pulse Ox O2 Delivery O2 Flow Rate FiO2 02/12/17 12:24 Room Air 02/12/17 11:53 36.6 68 16 196/62 (106) 98 Room Air 02/12/17 08:45 63 184/57 (99) 02/12/17 08:00 Room Air 02/12/17 07:42 36.4 54 16 148/45 (79) 96 Room Air Physical Exam: General- no acute distress Head- atraumatic Eyes- PERRL, EOMI ENT- oropharynx clear Neck- supple, no JVD Lungs-No wheezing, no crackles Heart- regular rhythm Abdomen- normal bowel sounds, soft Extremities- no calf tenderness Neuro- alert, oriented, PERRL, EOMI Skin- warm & dry Laboratory Results: Last 24 Hours Test 02/11/17 14:00 02/11/17 14:20 02/11/17 20:00 02/11/17 20:32 Creatine Kinase MB Ratio Creatine Kinase MB 0.8 ng/ml 0.8 ng/ml Troponin I < 0.015 ng/ml < 0.015 ng/ml Test 02/12/17 06:30 White Blood Count 4.40 K/uL Red Blood Count 2.80 M/uL Hemoglobin 9.3 g/dL Hematocrit 27.5 % Mean Corpuscular Volume 98.2 fL Mean Corpuscular Hemoglobin 33.2 pg Mean Corpuscular Hemoglobin Concent 33.8 g/dl RDW Standard Deviation 50.4 fL RDW Coefficient of Variation 14.0 % Platelet Count 172 K/uL Mean Platelet Volume 9.4 fL Sodium Level 131 mmol/L Potassium Level 4.1 mmol/L Chloride Level 97 mmol/L Carbon Dioxide Level 27 mmol/L Anion Gap 7.0 mmol/L Blood Urea Nitrogen 30 mg/dl Creatinine 1.40 mg/dl Est Creatinine Clear Calc Drug Dose 21.3 ml/min Estimated GFR () 39.3 Estimated GFR (Non- 33.9 BUN/Creatinine Ratio 21.6 Random Glucose 75 mg/dl Calcium Level 8.6 mg/dl Thyroid Stimulating Hormone (TSH) 1.570 uIu/ml Assessment & Plan CHEST PAIN Possible related to anxiety Need to R/O ACS all sets CM negative EKG did not show any ischemic changes Continue metoprolol/asa/ statin Asymptomatic Echo done today showed: The left ventricle is normal in size. * Left ventricular systolic function is normal. * Ejection Fraction = 60-65%. * The right ventricular systolic function is normal. * The left atrium is borderline dilated. * Right atrial size is normal. * Mild aortic regurgitation. * There is moderate to severe tricuspid regurgitation. SOB No signs of fluid overload Continue Bumex Stable Hx ATRIAL FLUTTER rate is controlled continue Lopressor Stable ANXIETY Continue ativan prn CKD STAGE IV - baseline creat runs in the high 1's - low 2's - noted to be 1.5 on admission - creatine 1.4 today - continue to monitor - avoid nephrotoxic agents when able - Stable SIADH - Na+ 125 on admission - Improved to 131 today - continue monitor bmp CHRONIC ANEMIA - due to CKD, receives Procrit injections - hgb 9.3 - Monitor cbc HTN - continue Nifedipine, metoprolol, bumex Stable HYPOTHYROIDISM - continue levothyroxine - TSH WNL DVT PROPHYLAXIS Recently admitted for Anemia SCDs for now CODE STATUS - Patient is a full code as per my discussion with her. DISPOSITION Will discharge home today Current Inpatient Medications: Current Inpatient Medications Medications (Trade) Dose Ordered Sig/Jassi Route Start Time Stop Time Status Last Admin Dose Admin Ondansetron HCl (Zofran Inj) 4 mg Q6H PRN IV 02/11/17 11:15 03/13/17 11:14 Nitroglycerin (Nitrostat Tab) 0.4 mg UD PRN SL 02/11/17 11:15 03/13/17 11:14 Miscellaneous (Iv Fluids Completed) 1 ea PRN PRN N/A 02/11/17 11:30 02/11/18 11:29 Aspirin (Ecotrin Tab) 81 mg DAILY PO 02/12/17 09:00 03/14/17 08:59 02/12/17 09:08 81 MG Atorvastatin Calcium (Lipitor Tab) 10 mg HS PO 02/11/17 21:00 03/13/17 20:59 02/11/17 20:52 10 MG Bumetanide (Bumex Tab) 0.5 mg QAM PO 02/12/17 09:00 03/14/17 08:59 02/12/17 09:08 0.5 MG Buspirone HCl (Buspar Tab) 5 mg DAILY PO 02/12/17 09:00 03/14/17 08:59 02/12/17 09:02 5 MG Ferrous Sulfate (Feosol Tab) 325 mg BID PO 02/11/17 21:00 03/13/17 20:59 02/12/17 09:02 325 MG Levothyroxine Sodium (Synthroid Tab) 88 mcg DAILYBB PO 02/12/17 06:30 03/14/17 06:29 02/12/17 05:50 88 MCG Lorazepam (Ativan Tab) 1 mg BID PRN PO 02/11/17 11:30 03/13/17 11:29 02/11/17 20:50 1 MG Magnesium Oxide (Mag-Ox Tab) 400 mg DAILY PO 02/12/17 09:00 03/14/17 08:59 02/12/17 09:02 400 MG Metoprolol Tartrate (Lopressor Tab) 12.5 mg BID PO 02/11/17 21:00 03/13/17 20:59 02/12/17 09:07 12.5 MG Mirtazapine (Remeron Tab) 15 mg HS PO 02/11/17 21:00 03/13/17 20:59 02/11/17 20:51 15 MG Nifedipine (Procardia Xl Tab) 30 mg DAILY PO 02/12/17 09:00 03/14/17 08:59 02/12/17 09:02 30 MG Pantoprazole Sodium (Protonix Tab) 40 mg DAILY PO 02/12/17 09:00 03/14/17 08:59 02/12/17 09:08 40 MG Ranitidine HCl (zANTac TAB) 150 mg DAILY PO 02/12/17 09:00 03/14/17 08:59 02/12/17 09:08 150 MG Docusate Sodium (coLACE CAP) 100 mg DAILY PRN PO 02/11/17 13:30 03/13/17 11:29 Enteral Nutritional Formula (Boost Breeze Nutritional Drink) 1 box BID PO 02/11/17 21:00 03/13/17 20:59 02/12/17 09:08 1 BOX Sodium Chloride 500 ml @ 80 mls/hr Q6H15M IV 02/12/17 11:30 02/12/17 17:44 02/12/17 11:23 80 MLS/HR
[2017-02-12] MEDS: MIRTAZAPINE TAB 15 MG TAB PO SCH (21:18)
[2017-02-12] MEDS: LORAZEPAM 1 MG TAB PO PRN (21:19)
[2017-02-12] MEDS: ATORVASTATIN 10 MG TAB PO SCH (21:20)
[2017-02-13] VITALS (8 sets, daily range): BP systolic 138–194; BP diastolic 48–74; PULSE 55–111; TEMP 36.4–36.6; O2SAT 94–99
[2017-02-13] MEDS ORDERED: HALOPERIDOL LACTATE 5 MG/ML 1 ML VIAL IM STA (03:36)
[2017-02-13] MEDS ORDERED: HALOPERIDOL LACTATE 5 MG/ML 1 ML VIAL ONE (04:14)
[2017-02-13] MEDS: LEVOTHYROXINE 88 MCG TAB PO SCH (05:30)
[2017-02-13] MEDS: ASPIRIN 81 MG ECTAB PO SCH (08:32)
[2017-02-13] MEDS: RANITIDINE HCL 150 MG TAB PO SCH (08:32)
[2017-02-13] MEDS: METOPROLOL TARTRATE 25 MG TAB PO SCH (08:33)
[2017-02-13] MEDS: MAGNESIUM OXIDE 400 MG TAB PO SCH (08:33)
[2017-02-13] MEDS: NIFEdipine 30 MG CR TAB PO SCH (08:33)
[2017-02-13] MEDS: FERROUS SULFATE 325 MG TAB PO SCH (08:34)
[2017-02-13] MEDS: PANTOprazole SOD 40 MG TAB PO SCH (08:34)
[2017-02-13] MEDS: BUMETANIDE 1 MG TAB PO SCH (08:34)
[2017-02-13] MEDS: BOOST BREEZE NUTRITION DRINK 1 BOX PO SCH (08:34)
[2017-02-13] MEDS: LORAZEPAM 1 MG TAB PO PRN (08:38)
[2017-02-13] MEDS ORDERED: ACETAMINOPHEN 500 MG TAB PO ONE ×2 (10:45→16:15)
--- NOTE | 2017-02-13 12:00 | Discharge Instructions ---
Discharge Instructions Date of Service Feb 13, 2017. Admission Reason for Admission: Chest Pain Discharge Discharge Diagnosis / Problem: Chest pain, Anxiety, Hyponatremia Discharge Goals Goal(s): Decrease discomfort, Improve function, Improve disease control Activity Recommendations Activity Limitations: resume your previous activity (as tolerated) . Instructions / Follow-Up Instructions / Follow-Up Discharge home with home health services Follow up with your physician Dr. Quevedo on 02/18 @ 10:05 am Fall precaution Continue physical therapy Current Hospital Diet Patient's current hospital diet: AHA Diet (Heart Healthy) Discharge Diet Recommended Diet: AHA Diet (Heart Healthy) Pending Studies Studies pending at discharge: no Medical Emergencies . Who to Call and When: Medical Emergencies: If at any time you feel your situation is an emergency, please call 911 immediately. . Non-Emergent Contact Non-Emergency issues call your: Primary Care Provider Call Non-Emergent contact if: you have any medication questions . . "Provider Documentation" section prepared by Roman Ortega. . VTE Core Measure Inpt VTE Proph given/why not?: SCD's, Contraindicated (recent admission for anemia)
[2017-02-13] MEDS ORDERED: NURSING VERBAL MED ORDER ONE (16:15)
--- NOTE | 2017-02-13 18:18 | Progress Note ---
Medicine Progress Note Date & Time of Visit: Feb 13, 2017 at 18:17. Subjective Pt was seen and examined Lying in bed with no distress denies any chest pain, palpitation and sob complaint of mild back pain that improved with tylenol Objective Last 8 Hrs Date Time Temp Pulse Resp B/P (MAP) Pulse Ox O2 Delivery O2 Flow Rate FiO2 02/13/17 16:01 Room Air 02/13/17 15:15 36.4 74 16 139/68 (91) 97 Room Air 02/13/17 13:08 36.4 68 16 94 Room Air 02/13/17 13:02 68 174/56 (95) 02/13/17 12:11 Room Air 02/13/17 11:39 36.4 72 16 180/48 (92) 94 Room Air Physical Exam: General- no acute distress Head- atraumatic Eyes- PERRL, EOMI ENT- oropharynx clear Neck- supple, no JVD Lungs-No wheezing, no crackles Heart- regular rhythm Abdomen- normal bowel sounds, soft Extremities- no calf tenderness Neuro- alert, oriented, PERRL, EOMI Skin- warm & dry Assessment & Plan CHEST PAIN Possible related to anxiety Need to R/O ACS all sets CM negative EKG did not show any ischemic changes Continue metoprolol/asa/ statin Asymptomatic Resolved Echo done today showed: The left ventricle is normal in size. * Left ventricular systolic function is normal. * Ejection Fraction = 60-65%. * The right ventricular systolic function is normal. * The left atrium is borderline dilated. * Right atrial size is normal. * Mild aortic regurgitation. * There is moderate to severe tricuspid regurgitation. SOB No signs of fluid overload Continue Bumex Stable Hx ATRIAL FLUTTER rate is controlled continue Lopressor Stable ANXIETY Continue ativan prn CKD STAGE IV - baseline creat runs in the high 1's - low 2's - noted to be 1.5 on admission - creatine 1.4 today - continue to monitor - avoid nephrotoxic agents when able - Stable SIADH - Na+ 125 on admission - Improved to 131 - continue monitor bmp CHRONIC ANEMIA - due to CKD, receives Procrit injections - hgb 9.3 - Monitor cbc HTN - continue Nifedipine, metoprolol, bumex Stable HYPOTHYROIDISM - continue levothyroxine - TSH WNL DVT PROPHYLAXIS Recently admitted for Anemia SCDs for now CODE STATUS - Patient is a full code as per my discussion with her. DISPOSITION Will discharge home today
--- NOTE | 2017-02-16 07:59 | Discharge Summary ---
Discharge Summary Date of Service Feb 16, 2017. Discharge Summary Admission Date: Feb 11, 2017 at 11:51 Discharge Date: Feb 13, 2017 Discharge Disposition: Home with services Principal Diagnosis: CHEST PAIN Secondary Diagnoses/Problems: SOB Hx ATRIAL FLUTTER CKD STAGE IV SIADH CHRONIC ANEMIA HYPOTHYROIDISM HTN Procedures: CHEST ONE VIEW PORTABLE CLINICAL HISTORY: chest pain dyspnea COMPARISON STUDY: 02/01/2017 FINDINGS: Mild stable cardiomegaly. Slight interstitial prominence. No focal infiltrate. IMPRESSION: Mild stable cardiomegaly. Slight nonspecific interstitial prominence. Electronically signed by: Rob Mike M.D. 02/11/2017 8:16 AM Dictated Date/Time: 02/11/2017 8:12 AM Medication Reconciliation Continued Medications: Aspirin (Aspirin Ec) 81 Mg Tab 81 MG PO DAILY Atorvastatin (Lipitor) 10 Mg Tab 10 MG PO HS, TAB Bumetanide (Bumex) 1 Mg Tab 0.5 MG PO QAM, TAB Buspirone HCl (Buspirone HCl) 5 Mg Tab 5 MG PO DAILY, #30 Docusate Sodium (Docusate Sodium) 100 Mg Cap 1 CAP PO DAILY PRN for Constipation for 7 Days, #7 CAP Enteral Nutrition Formula (Nepro Carb Steady) 1 Can Liqd 1 CAN PO BID, CAN Epoetin Rafael (Procrit) 10,000 [place] 31701 UNITS SC q 3 weeks Ferrous Sulfate (Ferrous Sulfate) 325 Mg Tab 325 MG PO BID, TAB Levothyroxine Sodium (Synthroid) 88 Mcg Tab 88 MCG PO DAILY, TAB Lorazepam (Ativan) 1 Mg Tab 1 MG PO BID PRN for Anxiety, TAB Magnesium Oxide (Mg Supplement (Magox 400) 241.3 Mg Tab 1 TAB PO DAILY Metoprolol Tartrate (Lopressor) (Lopressor) 25 Mg Tab 12.5 MG PO BID, TAB Mirtazapine (Remeron) 15 Mg Tab 15 MG PO HS, 3 Refills Nifedipine (Nifedipine Er) 30 Mg Tab 30 MG PO DAILY, 5 Refills Pantoprazole (Protonix) 40 Mg Tab 40 MG PO DAILY, TAB Ranitidine (Zantac) 150 Mg Tab 150 MG PO DAILY, TAB Admission Information HPI (per Admitting provider): 86 year old female with PMH of CKD stage 4, chronic anemia, atrial flutter, generalized anxiety, hypothyroidism presents to the Emergency Room with complaints of chest pain. She was recently admitted for symptomatically anemia and urinary tract infection. Pt is a very poor historian and was very anxious during the admission. Pt said that she woke up with the chest pain associated with shortness of breath. she said that the pain is sharp, non radiated. She said that she tried to lie down the chest pain seems worsening. Pt said that when EMS came she received 4 tabs of baby asa and nitro that helped with the chest pain. She states that she felt as though her heart skipped. Pt is very anxious and she wants to make sure that she will get her anxiety medication while in the hospital. Daughter said that pt is worried alot about her kidney function and sometimes she has to force her to take her other meds. Currently patient denies any chest pain, palpitation, dizziness, SOB, fever and chills. But she is very anxious right now. 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 * Left ventricular systolic function is normal. * Ejection Fraction = 60-65%. * The right ventricular systolic function is normal. * The left atrium is borderline dilated. * Right atrial size is normal. * Mild aortic regurgitation. * There is moderate to severe tricuspid regurgitation. SOB No signs of fluid overload Continue Bumex Stable Hx ATRIAL FLUTTER rate is controlled continue Lopressor Stable ANXIETY Continue ativan prn CKD STAGE IV - baseline creat runs in the high 1's - low 2's - noted to be 1.5 on admission - creatine 1.4 today - continue to monitor - avoid nephrotoxic agents when able - Stable SIADH - Na+ 125 on admission - Improved to 131 - continue monitor bmp CHRONIC ANEMIA - due to CKD, receives Procrit injections - hgb 9.3 - Monitor cbc HTN - continue Nifedipine, metoprolol, bumex Stable HYPOTHYROIDISM - continue levothyroxine - TSH WNL DVT PROPHYLAXIS Recently admitted for Anemia SCDs for now CODE STATUS - Patient is a full code as per my discussion with her. DISPOSITION Will discharge home today Total time spent on discharge = 35 MINUTES This includes examination of the patient, discharge planning, medication reconciliation, and communication with other providers. Discharge Instructions Discharge Instructions Date of Service Feb 13, 2017. Admission Reason for Admission: Chest Pain Discharge Discharge Diagnosis / Problem: Chest pain, Anxiety, Hyponatremia Discharge Goals Goal(s): Decrease discomfort, Improve function, Improve disease control Activity Recommendations Activity Limitations: resume your previous activity (as tolerated) . Instructions / Follow-Up Instructions / Follow-Up Discharge home with home health services Follow up with your physician Dr. Quevedo on 02/18 @ 10:05 am Fall precaution Continue physical therapy Current Hospital Diet Patient's current hospital diet: AHA Diet (Heart Healthy) Discharge Diet Recommended Diet: AHA Diet (Heart Healthy) Pending Studies Studies pending at discharge: no Medical Emergencies . Who to Call and When: Medical Emergencies: If at any time you feel your situation is an emergency, please call 911 immediately. . Non-Emergent Contact Non-Emergency issues call your: Primary Care Provider Call Non-Emergent contact if: you have any medication questions . . "Provider Documentation" section prepared by Roman Ortega. . VTE Core Measure Inpt VTE Proph given/why not?: SCD's, Contraindicated (recent admission for anemia) Additional Copies To Yogesh Quevedo III, M.D.
== END 2017-02-13 17:25 | disposition home health service (06) ==
LOC: EDBD 07:19 → C.EDB 07:23 → ENRESERV 11:25 → C.MED 11:51
PROVIDERS: ADMIT Internal Medicine; ATTEND Internal Medicine
DX: R07.9 Chest pain, unspecified (principal); E22.2 Syndrome of inappropriate secretion of antidiuretic hormone; R06.02 Shortness of breath; N18.4 Chronic kidney disease, stage 4 (severe); D63.1 Anemia in chronic kidney disease; I12.9 Hypertensive chronic kidney disease with stage 1 through stage 4 chronic kidney disease, or unspecified chronic kidney disease; E03.9 Hypothyroidism, unspecified; K21.9 Gastro-esophageal reflux disease without esophagitis; E78.5 Hyperlipidemia, unspecified; Z79.82 Long term (current) use of aspirin; Z90.49 Acquired absence of other specified parts of digestive tract; Z96.642 Presence of left artificial hip joint; Z82.49 Family history of ischemic heart disease and other diseases of the circulatory system

== ENCOUNTER → 2017-02-24 | Outpatient (CLI) | payer OTHER ==
[~2017-02-24] MED LIST changes: -CPR500 PO; +CPR500HP PO; +DOCU-94 PO; -ESCI1TAB6 PO; +MAGN400T6 PO; -POLY335019 PO
[2017-02-24 19:02] LABS: URINE APPEARANCE CLEAR (CLEAR); URINE BILIRUBIN NEG (NEG); URINE COLOR YELLOW; URINE NITRITE NEG (NEG); URINE SPECIFIC GRAVITY 1.012 (1.000-1.030); UROBILINOGEN NEG (NEG)
[2017-02-24 19:06] LABS: MANUAL MICROSCOPIC REQUIRED? NO; REVIEW REQ? NO
== END | disposition home or self-care (01) ==
LOC: C.LABSPEC 02-12 15:20
PROVIDERS: ATTEND Family Medicine
DX: N39.0 Urinary tract infection, site not specified (principal)

== ENCOUNTER 2017-02-26 10:25 | Emergency (ER) | payer OTHER ==
[~2017-02-26] VITALS: Ht 149.9 cm; Wt 51.0 kg
[~2017-02-26 10:25] MED LIST changes: -CPR500HP PO; -DOCU-94 PO; -MAGN400T6 PO
[2017-02-26 10:30] VITALS: TEMP 36.3; Ht 149.9 cm; Wt 51.0 kg
[2017-02-26 11:47] LABS: HEMATOCRIT 27.9 % (37-47); MEAN CELL VOLUME 95.2 fL (80-100); MEAN CORPUSCULAR HEMOGLOBIN 33.8 pg (25-34); MEAN CORPUSCULAR HGB CONC 35.5 g/dl (32-36); MEAN PLATELET VOLUME 9.9 fL (7.4-10.4); PLATELET COUNT 201 K/uL (130-400); RED BLOOD COUNT 2.93 M/uL (4.2-5.4)
[2017-02-26 11:59] LABS: MANUAL MICROSCOPIC REQUIRED? YES; URINE APPEARANCE CLEAR (CLEAR); URINE BILIRUBIN NEG (NEG); URINE COLOR YELLOW; URINE NITRITE NEG (NEG); URINE SPECIFIC GRAVITY <= 1.005 (1.000-1.030); UROBILINOGEN NEG (NEG)
[2017-02-26 12:06] LABS: BUN/CREATININE RATIO 21.1 (10-20); CALCIUM 9.1 mg/dl (8.5-10.1); CREATININE 1.4 mg/dl (0.60-1.20); POTASSIUM 3.9 mmol/L (3.5-5.1)
[2017-02-26 12:09] LABS: REVIEW REQ? NO
--- NOTE | 2017-02-26 12:15 | EMERGENCY ROOM VISIT NOTE ---
History Report prepared by Unique: Jennifer Powell Under the Supervision of: Dr. Brandon Hughes M.D. First contact with patient: 11:04 Chief Complaint: CONSTIPATION Stated Complaint: NO BM FOR 3 OR 4 DAYS History of Present Illness The patient is a 86 year old female who presents to the Emergency Room with complaints of constant constipation for the past few days. She cannot remember exactly when her last bowel movement was, but she thinks that it has been almost a week. She has tried MiraLAX and an enema for her symptoms without any relief. The patient rates her pain as a 5/10 in severity. She denies any nausea or vomiting. She has been constipated in the past, but it has never been this bad. The patient is on iron. She also reports a recent fall two weeks ago, where she injured her right hip. She has had x-rays and been evaluated for this incident previously. She had a urinalysis done yesterday and is waiting to receive the results. She is not currently taking any antibiotics. Source of History: patient Onset: a few days ago Position: abdomen Symptom Intensity: 5/10 Quality: other (constipation) Timing: constant Associated Symptoms: No nausea, No vomiting Review of Systems All systems have been listed, reviewed, and are negative other than those previously mentioned. Please see Additional Medical History Sheet. Past Medical & Surgical Medical Problems: (1) Anemia, chronic disease (2) Anxiety (3) Chest pain (4) CKD (chronic kidney disease), stage IV (5) Dizziness (6) FRANCES (generalized anxiety disorder) (7) GERD (gastroesophageal reflux disease) (8) H/O echocardiogram (9) HLD (hyperlipidemia) (10) HTN (hypertension) (11) Hypothyroidism (12) Major depressive disorder, recurrent, moderate (13) Palpitations (14) SIADH (syndrome of inappropriate ADH production) Surgical Problems: (1) Hx of appendectomy (2) Hx of cholecystectomy (3) Hx of dilation and curettage (4) Status post total hip replacement, left Family History FHx: heart disease Hypertension Social History Smoking Status: Never Smoker Alcohol Use: none Drug Use: none Marital Status: Housing Status: lives with family Occupation Status: retired Current/Historical Medications Scheduled Aspirin (Aspirin Ec), 81 MG PO DAILY Atorvastatin (Lipitor), 10 MG PO HS Bumetanide (Bumex), 0.5 MG PO QAM Buspirone HCl (Buspirone HCl), 5 MG PO DAILY Docusate Sodium (Colace), 100 MG PO BID Epoetin Rafael (Procrit), 10,000 UNITS SC q 3 weeks Ferrous Sulfate (Ferrous Sulfate), 325 MG PO BID Levothyroxine Sodium (Synthroid), 88 MCG PO DAILY Metoprolol Tartrate (Lopressor) (Lopressor), 12.5 MG PO BID Mirtazapine (Remeron), 15 MG PO HS Nifedipine (Nifedipine Er), 30 MG PO DAILY Pantoprazole (Protonix), 40 MG PO DAILY Ranitidine (Zantac), 150 MG PO DAILY Scheduled PRN Docusate Sodium (Docusate Sodium), 1 CAP PO DAILY PRN for Constipation Lorazepam (Ativan), 1 MG PO BID PRN for Anxiety Allergies Coded Allergies: Penicillins (Verified Allergy, Intermediate, HIVES, 02/01/17) Iron Sucrose (Verified Adverse Reaction, Mild, n&v, abd pain, 02/01/17) Physical Exam Vital Signs Date Time Temp Pulse Resp B/P (MAP) Pulse Ox O2 Delivery O2 Flow Rate FiO2 02/26/17 14:04 68 20 166/54 96 02/26/17 12:28 64 20 171/51 98 Room Air 02/26/17 10:30 36.3 67 18 142/64 95 Room Air Physical Exam GENERAL: Patient awake, alert, oriented x 3. Patient appears anxious and frightened. Patient follows commands. Patient does not appear toxic. Patient is adequately hydrated and well-nourished. SKIN: No erythema, pallor, cyanosis or rash HEENT: Normal head, pupils equal, reactive to light and accommodation. LUNGS: Clear to auscultation. No wheezes, no rales, no rhonchi. HEART: 3/6 systolic blowing murmur. No gallops. No rubs ABDOMEN: No masses, no rebound, no hepatomegaly or splenomegaly. RECTAL: Black guaiac positive stool, no impaction or masses noted. EXTREMITIES: Large bruise over her right greater trochanter. No pedal or pretibial edema. No calf or thigh tenderness. NEUROLOGIC: Cranial nerves II-XII within normal limits. No gross motor sensory function deficits. Medical Decision & Procedures Laboratory Results 02/26/17 11:30 02/26/17 11:30 Test 02/26/17 11:30 02/26/17 11:38 Red Blood Count 2.93 M/uL (4.2-5.4) Mean Corpuscular Volume 95.2 fL (80-100) Mean Corpuscular Hemoglobin 33.8 pg (25-34) Mean Corpuscular Hemoglobin Concent 35.5 g/dl (32-36) RDW Standard Deviation 48.1 fL (36.4-46.3) RDW Coefficient of Variation 13.7 % (11.5-14.5) Mean Platelet Volume 9.9 fL (7.4-10.4) Anion Gap 8.0 mmol/L (3-11) Est Creatinine Clear Calc Drug Dose 19.7 ml/min Estimated GFR () 39.3 Estimated GFR (Non- 33.9 BUN/Creatinine Ratio 21.1 (10-20) Calcium Level 9.1 mg/dl (8.5-10.1) Urine Color YELLOW Urine Appearance CLEAR (CLEAR) Urine pH 6.0 (4.5-7.5) Urine Specific [place] <= 1.005 (1.000-1.030) Urine Protein 1+ (NEG) Urine Glucose (UA) NEG (NEG) Urine Ketones NEG (NEG) Urine Occult Blood TRACE (NEG) Urine Nitrite NEG (NEG) Urine Bilirubin NEG (NEG) Urine Urobilinogen NEG (NEG) Urine Leukocyte Esterase NEG (NEG) Urine RBC 0-4 /hpf (0-4) Urine WBC 1-5 /hpf (0-5) Urine Epithelial Cells 0-5 /lpf (0-5) Urine Bacteria 1+ (NEG) Laboratory results as stated above per my review. ED Course 1104: Past medical records reviewed. The patient was evaluated in room C3. A complete history and physical examination was performed. 1327: I reassessed the patient at this time. She is feeling better and resting comfortably. She had a bowel movement during her stay in the ED. I discussed the results and treatment plan with the patient. I answered all pertaining questions that she had. She expressed understanding and verbalized agreement. The patient will be discharged home. Medical Decision Differential diagnoses includes constipation, fecal impaction, metabolic disorder, UTI. Multiple labs and urinalysis were evaluated. Please see above. The patient is anemic. She has some renal insufficiency. She does not appear to have urinary tract infection. The patient had a good bowel movement after a soapsuds enema. I believe the patient can safely return home. She was instructed to take Colace twice a day. She is to follow-up with her family physician. Medication Reconcilliation Current Medication List: was personally reviewed by me Blood Pressure Screening Patient's blood pressure: Elevated blood pressure Blood pressure disposition: Referred to PCP Impression Primary Impression: Constipation Additional Impressions: Renal insufficiency Anemia Scribe Attestation The scribe's documentation has been prepared under my direction and personally reviewed by me in its entirety. I confirm that the note above accurately reflects all work, treatment, procedures, and medical decision making performed by me. Departure Information Dispostion Home / Self-Care Prescriptions Docusate Sodium (COLACE) 100 Mg Cap 100 MG PO BID, #60 CAP Prov: Brandon Hughes M.D. 02/26/17 Referrals Yogesh Quevedo III, M.D. (PCP) Forms HOME CARE DOCUMENTATION FORM, IMPORTANT VISIT INFORMATION Patient Instructions My [facility] Additional Instructions Continue all of your current medications as prescribed. Take 1 Colace twice a day. Follow-up with your family physician within the next 10 days. Problem Qualifiers Primary Impression: Constipation Constipation type: unspecified constipation type Qualified Codes: K59.00 - Constipation, unspecified Additional Impressions: Anemia Anemia type: unspecified type Qualified Codes: D64.9 - Anemia, unspecified
[2017-02-26 12:25] LABS: URINE BACTERIA 1+ (NEG); URINE RBC 0-4 /hpf (0-4)
[2017-02-26 12:26] LABS: ZZURINE CULT IF INDIC CATH YES
[2017-02-26] MEDS ORDERED: DOCU-94 PO (13:33)
[2017-02-26 14:04] VITALS: BP 166/54; PULSE 68; O2SAT 96
== END 2017-02-26 14:07 | disposition home or self-care (01) ==
LOC: C.EDB 10:28 → C.EDC 14:07
DX: K59.00 Constipation, unspecified (principal); N28.9 Disorder of kidney and ureter, unspecified; D64.9 Anemia, unspecified; F41.9 Anxiety disorder, unspecified; N18.4 Chronic kidney disease, stage 4 (severe); I12.9 Hypertensive chronic kidney disease with stage 1 through stage 4 chronic kidney disease, or unspecified chronic kidney disease; K21.9 Gastro-esophageal reflux disease without esophagitis; E78.5 Hyperlipidemia, unspecified; E03.9 Hypothyroidism, unspecified; F32.9 Major depressive disorder, single episode, unspecified; E22.2 Syndrome of inappropriate secretion of antidiuretic hormone; S70.01XA Contusion of right hip, initial encounter; W19.XXXA Unspecified fall, initial encounter; Z96.642 Presence of left artificial hip joint; Z82.49 Family history of ischemic heart disease and other diseases of the circulatory system; Z79.82 Long term (current) use of aspirin

== ENCOUNTER 2017-03-06 14:07 | Emergency (ER) | payer OTHER ==
[~2017-03-06] VITALS: Ht 142.2 cm; Wt 54.7 kg
[2017-03-06 14:07] VITALS: TEMP 36.4; Ht 142.2 cm; Wt 54.7 kg
[~2017-03-06 14:07] MED LIST changes: +DOCU-94 PO; -MAGN10TA PO; -NUTR-773 PO
[2017-03-06] MEDS ORDERED: CPR500HP PO (14:39)
--- NOTE | 2017-03-06 14:44 | EMERGENCY ROOM VISIT NOTE ---
History Report prepared by Unique: Gagandeep Martini Under the Supervision of: Dr. Preston Palomino M.D. First contact with patient: 14:13 Chief Complaint: URINARY SYMPTOMS Stated Complaint: FREQUENT URINATION Nursing Triage Summary: Pt c/o increased urination History of Present Illness The patient is an 86 year old female who presents to the Emergency Room with complaints of sudden substernal and left sided chest pain starting this morning. The patient states that it feels dull and achy. The patient is additionally complaining of nausea, shortness of breath, urinary frequency and pain with urination. The patient states that she is currently on antibiotics for a bladder infection though she is not sure which one. She states that she has taken her medications today including aspirin. Source of History: patient Onset: this morning Position: chest Quality: ache, dull Timing: other (sudden) Associated Symptoms: + SOB, + nausea, + urinary symptoms Review of Systems See HPI for pertinent positives & negatives. A total of 10 systems reviewed and were otherwise negative. Past Medical & Surgical Medical Problems: (1) Anemia, chronic disease (2) Anxiety (3) Chest pain (4) CKD (chronic kidney disease), stage IV (5) Dizziness (6) FRANCES (generalized anxiety disorder) (7) GERD (gastroesophageal reflux disease) (8) H/O echocardiogram (9) HLD (hyperlipidemia) (10) HTN (hypertension) (11) Hypothyroidism (12) Major depressive disorder, recurrent, moderate (13) Palpitations (14) SIADH (syndrome of inappropriate ADH production) Surgical Problems: (1) Hx of appendectomy (2) Hx of cholecystectomy (3) Hx of dilation and curettage (4) Status post total hip replacement, left Family History FHx: heart disease Hypertension Social History Smoking Status: Never Smoker Alcohol Use: none Drug Use: none Marital Status: Housing Status: lives with family Occupation Status: retired Current/Historical Medications Scheduled Aspirin (Aspirin Ec), 81 MG PO DAILY Atorvastatin (Lipitor), 10 MG PO HS Bumetanide (Bumex), 0.5 MG PO QAM Buspirone HCl (Buspirone HCl), 5 MG PO DAILY Ciprofloxacin (Ciprofloxacin HCl), 1 TAB PO Q12H Docusate Sodium (Colace), 100 MG PO BID Epoetin Rafael (Procrit), 10,000 UNITS SC q 3 weeks Ferrous Sulfate (Ferrous Sulfate), 325 MG PO BID Levothyroxine Sodium (Synthroid), 88 MCG PO DAILY Metoprolol Tartrate (Lopressor) (Lopressor), 12.5 MG PO BID Mirtazapine (Remeron), 15 MG PO HS Nifedipine (Nifedipine Er), 30 MG PO DAILY Pantoprazole (Protonix), 40 MG PO DAILY Ranitidine (Zantac), 150 MG PO DAILY Scheduled PRN Docusate Sodium (Docusate Sodium), 1 CAP PO DAILY PRN for Constipation Lorazepam (Ativan), 1 MG PO BID PRN for Anxiety Allergies Coded Allergies: Penicillins (Verified Allergy, Intermediate, HIVES, 03/06/17) Iron Sucrose (Verified Adverse Reaction, Mild, n&v, abd pain, 03/06/17) Physical Exam Vital Signs Date Time Temp Pulse Resp B/P (MAP) Pulse Ox O2 Delivery O2 Flow Rate FiO2 03/06/17 16:22 73 193/56 03/06/17 15:00 63 140/55 03/06/17 14:22 71 03/06/17 14:07 36.4 72 18 140/55 95 Room Air Physical Exam GENERAL: Patient is elderly and sad appearing in minimal distress. HEENT: No acute trauma, normocephalic atraumatic, mucous membranes moist, no nasal congestion, no scleral icterus. NECK: No stridor, no adenopathy, no meningismus, trachea is midline. LUNGS: No dyspnea. Clear to auscultation and equal bilaterally. No wheeze, no rhonchi. HEART: Systolic murmur. Regular rate with irregular rhythm. No rubs or gallops appreciated. ABDOMEN: Soft, nontender, bowel sounds positive, no masses appreciated, no peritonitis. BACK: No midline tenderness, no CVA tenderness EXTREMITIES: Normal motion all extremities, no cyanosis, no edema. NEUROLOGIC: Alert and oriented, no acute motor or sensory deficits, no focal weakness, cranial nerves grossly intact. SKIN: No rash, no jaundice, no diaphoresis. Medical Decision & Procedures ER Provider Diagnostic Interpretation: Radiology results and stated below per my review and radiologist interpretation: CHEST ONE VIEW PORTABLE CLINICAL HISTORY: Chest pain. COMPARISON STUDY: Chest radiograph February 11, 2017. FINDINGS: The patient is rotated. There is no pneumothorax or pleural effusion. Cardiomegaly is unchanged. Linear bibasilar opacities favor atelectasis. There is no consolidation to suggest pneumonia. There is no evidence of pulmonary edema. IMPRESSION: No acute cardiopulmonary findings. Electronically signed by: Hayder Barber M.D. 03/06/2017 2:45 PM Dictated Date/Time: 03/06/2017 2:43 PM Laboratory Results 03/06/17 15:29 Red Blood Count 3.07, Mean Corpuscular Volume 96.7, Mean Corpuscular Hemoglobin 34.2, Mean Corpuscular Hemoglobin Concent 35.4, Mean Platelet Volume 9.6, Neutrophils (%) (Auto) 62.6, Lymphocytes (%) (Auto) 28.6, Monocytes (%) (Auto) 7.6, Eosinophils (%) (Auto) 0.7, Basophils (%) (Auto) 0.5, Neutrophils # (Auto) 2.56, Lymphocytes # (Auto) 1.17, Monocytes # (Auto) 0.31, Eosinophils # (Auto) 0.03, Basophils # (Auto) 0.02 03/06/17 15:29 Test 03/06/17 14:55 03/06/17 15:29 Urine Color YELLOW Urine Appearance CLEAR (CLEAR) Urine pH 7.0 (4.5-7.5) Urine Specific [place] 1.012 (1.000-1.030) Urine Protein 1+ (NEG) Urine Glucose (UA) NEG (NEG) Urine Ketones NEG (NEG) Urine Occult Blood TRACE (NEG) Urine Nitrite NEG (NEG) Urine Bilirubin NEG (NEG) Urine Urobilinogen NEG (NEG) Urine Leukocyte Esterase TRACE (NEG) Urine WBC (Auto) 1-5 /hpf (0-5) Urine RBC (Auto) 0-4 /hpf (0-4) Urine Hyaline Casts (Auto) 0 /lpf (0-5) Urine Epithelial Cells (Auto) 5-10 /lpf (0-5) Urine Bacteria (Auto) NEG (NEG) White Blood Count 4.09 K/uL (4.8-10.8) Red Blood Count 3.07 M/uL (4.2-5.4) Hemoglobin 10.5 g/dL (12.0-16.0) Hematocrit 29.7 % (37-47) Mean Corpuscular Volume 96.7 fL (80-100) Mean Corpuscular Hemoglobin 34.2 pg (25-34) Mean Corpuscular Hemoglobin Concent 35.4 g/dl (32-36) Platelet Count 177 K/uL (130-400) Mean Platelet Volume 9.6 fL (7.4-10.4) Neutrophils (%) (Auto) 62.6 % Lymphocytes (%) (Auto) 28.6 % Monocytes (%) (Auto) 7.6 % Eosinophils (%) (Auto) 0.7 % Basophils (%) (Auto) 0.5 % Neutrophils # (Auto) 2.56 K/uL (1.4-6.5) Lymphocytes # (Auto) 1.17 K/uL (1.2-3.4) Monocytes # (Auto) 0.31 K/uL (0.11-0.59) Eosinophils # (Auto) 0.03 K/uL (0-0.5) Basophils # (Auto) 0.02 K/uL (0-0.2) RDW Standard Deviation 49.1 fL (36.4-46.3) RDW Coefficient of Variation 13.8 % (11.5-14.5) Immature Granulocyte % (Auto) 0.0 % Immature Granulocyte # (Auto) 0.00 K/uL (0.00-0.02) Anion Gap 9.0 mmol/L (3-11) Est Creatinine Clear Calc Drug Dose 16.4 ml/min Estimated GFR () 31.1 Estimated GFR (Non- 26.8 BUN/Creatinine Ratio 22.6 (10-20) Calcium Level 9.2 mg/dl (8.5-10.1) Total Bilirubin 0.5 mg/dl (0.2-1) Aspartate Amino Transf (AST/SGOT) 19 U/L (15-37) Alanine Aminotransferase (ALT/SGPT) 19 U/L (12-78) Alkaline Phosphatase 102 U/L (45-117) Troponin I < 0.015 ng/ml (0-0.045) Total Protein 7.3 gm/dl (6.4-8.2) Albumin 3.7 gm/dl (3.4-5.0) Globulin 3.6 gm/dl (2.5-4.0) Albumin/Globulin Ratio 1.0 (0.9-2) Laboratory results as reviewed by me. ECG Indication: other (urinary symptoms) Rate (beats per minute): 69 Rhythm: sinus rhythm Findings: 1st degree AV block, PAC, no acute ischemic change, other (Normal QTC ) ED Course 1413: The patient was evaluated in room B7. A complete history and physical exam was performed. 1518: I reevaluated the patient, and she states that she now wants her labs to be checked after earlier not wanting them 1613: I reassessed the patient, and she states that she feels fine, and she wants to go home. The patient agrees to the treatment plan. She will be discharged home. Medical Decision Differential: Sepsis, Infectious (UTI/Pneumonia/Meningitis/etc), Metabolic/ Electrolyte Abnormality, Cardiac, Hepatic, Endocrine, Toxicologic, Neurologic, amongst other pathologies entertained. 86 yr old anxious female with essentially a positive review of symptoms. She looks in no acute emergent distress. EKG, trop, cxr, labs unremarkable. UA clear now. Recent UCx with resistant bacteria though this seems to have cleared. Stable. BP trending up when anxious. She states she will not stay in the hospital. I offered her admission which she refuses. She is in no distress other than anxiety. Advised follow up with PCP/cards and that she can return at any time if worsening or other concerns. Medication Reconcilliation Current Medication List: was personally reviewed by me Blood Pressure Screening Patient's blood pressure: Elevated blood pressure Blood pressure disposition: Elevated BP felt to be situational Impression Primary Impression: Multiple complaints Additional Impressions: Chest pain Anxiety Chronic hyponatremia Scribe Attestation The scribe's documentation has been prepared under my direction and personally reviewed by me in its entirety. I confirm that the note above accurately reflects all work, treatment, procedures, and medical decision making performed by me. Departure Information Dispostion Home / Self-Care Referrals Yogesh Quevedo III, M.D. (PCP) Forms HOME CARE DOCUMENTATION FORM, IMPORTANT VISIT INFORMATION Patient Instructions My [facility] Additional Instructions We are always here to help. If you feel symptoms have changed or if you feel something new is occurring, call 911, or return immediately. Please follow up with your primary care provider to discuss your test result. You have been examined and treated today on an emergency basis only. This is not a substitute for, or an effort to provide, complete comprehensive medical care. It is impossible to recognize and treat all injuries or illnesses in a single emergency department visit. It is therefore important that you follow up closely with your Primary Physician. Call as soon as possible for an appointment so you can review all labs, imaging and other testing that you had. Return to Emergency Department, call 911 or seek immediate medical attention if you feel your symptoms are worsening. Problem Qualifiers
--- NOTE | 2017-03-06 14:47 | DIAGNOSTIC IMAGING REPORT ---
CHEST ONE VIEW PORTABLE CLINICAL HISTORY: Chest pain. COMPARISON STUDY: Chest radiograph February 11, 2017. FINDINGS: The patient is rotated. There is no pneumothorax or pleural effusion. Cardiomegaly is unchanged. Linear bibasilar opacities favor atelectasis. There is no consolidation to suggest pneumonia. There is no evidence of pulmonary edema. IMPRESSION: No acute cardiopulmonary findings. Electronically signed by: Hayder Barber M.D. 03/06/2017 2:45 PM Dictated Date/Time: 03/06/2017 2:43 PM
[2017-03-06 15:09] LABS: MANUAL MICROSCOPIC REQUIRED? NO; REVIEW REQ? NO; URINE APPEARANCE CLEAR (CLEAR); URINE BILIRUBIN NEG (NEG); URINE COLOR YELLOW; URINE NITRITE NEG (NEG); URINE SPECIFIC GRAVITY 1.012 (1.000-1.030); UROBILINOGEN NEG (NEG); ZZUR CULT IF INDIC CLEAN CATCH NO
[2017-03-06 15:46] LABS: BASO % 0.5 %; BASO ABS # 0.02 K/uL (0-0.2); COMPLETE YES; EOS % 0.7 %; HEMATOCRIT 29.7 % (37-47); LYMPH % 28.6 %; LYMPH ABS # 1.17 K/uL (1.2-3.4); MEAN CELL VOLUME 96.7 fL (80-100); MEAN CORPUSCULAR HEMOGLOBIN 34.2 pg (25-34); MEAN CORPUSCULAR HGB CONC 35.4 g/dl (32-36); MEAN PLATELET VOLUME 9.6 fL (7.4-10.4); MONO % 7.6 %; NEUT % 62.6 %; PLATELET COUNT 177 K/uL (130-400); RED BLOOD COUNT 3.07 M/uL (4.2-5.4); WHITE BLOOD COUNT 4.09 K/uL (4.8-10.8)
[2017-03-06 16:04] LABS: ALT/SGPT 19 U/L (12-78); BLOOD UREA NITROGEN 39 mg/dl (7-18); BUN/CREATININE RATIO 22.6 (10-20); CALCIUM 9.2 mg/dl (8.5-10.1); CARBON DIOXIDE 30 mmol/L (21-32); CHLORIDE 88 mmol/L (98-107); GLUCOSE 96 mg/dl (70-99); POTASSIUM 4.1 mmol/L (3.5-5.1); SODIUM 127 mmol/L (136-145)
[2017-03-06 16:09] LABS: ALKALINE PHOSPHATASE 102 U/L (45-117); AST/SGOT 19 U/L (15-37)
[2017-03-06 17:42] VITALS: BP 185/51; PULSE 75; O2SAT 95
== END 2017-03-06 17:40 | disposition home or self-care (01) ==
LOC: EDBD 14:07 → C.EDB 14:08
DX: R07.9 Chest pain, unspecified (principal); F41.9 Anxiety disorder, unspecified; E87.1 Hypo-osmolality and hyponatremia; D64.9 Anemia, unspecified; N18.4 Chronic kidney disease, stage 4 (severe); K21.9 Gastro-esophageal reflux disease without esophagitis; E78.5 Hyperlipidemia, unspecified; I10 Essential (primary) hypertension; E03.9 Hypothyroidism, unspecified; R00.2 Palpitations; Z82.49 Family history of ischemic heart disease and other diseases of the circulatory system; Z79.82 Long term (current) use of aspirin

== ENCOUNTER → 2017-03-10 | Outpatient (CLI) | payer OTHER ==
[~2017-03-10] MED LIST changes: +CPR500HP PO; +MAGN400T6 PO
[2017-03-10 17:49] LABS: BLOOD UREA NITROGEN 51 mg/dl (7-18); BUN/CREATININE RATIO 22.2 (10-20); CALCIUM 8.9 mg/dl (8.5-10.1); CARBON DIOXIDE 29 mmol/L (21-32); CHLORIDE 85 mmol/L (98-107); GLUCOSE 71 mg/dl (70-99); POTASSIUM 3.8 mmol/L (3.5-5.1); SODIUM 124 mmol/L (136-145)
== END | disposition home or self-care (01) ==
LOC: C.LABSPEC 15:45
PROVIDERS: ATTEND Family Medicine
DX: N18.4 Chronic kidney disease, stage 4 (severe) (principal)

== ENCOUNTER 2017-03-24 12:54 | Emergency (ER) | payer OTHER ==
[~2017-03-24] VITALS: Ht 142.2 cm; Wt 54.7 kg
[~2017-03-24 12:54] MED LIST changes: -MAGN400T6 PO
[2017-03-24 13:00] VITALS: TEMP 36.6
--- NOTE | 2017-03-24 13:33 | EMERGENCY ROOM VISIT NOTE ---
History Report prepared by Unique: Heidi La Under the Supervision of: Dr. Leonardo Gaitan M.D. First contact with patient: 13:25 Chief Complaint: CHEST PAIN Stated Complaint: LEG WEAKNESS/ SHORTNESS OF BREATH/CHEST PAIN History of Present Illness The patient is a 86 year old female who presents to the Emergency Room with complaints of constant cramping in her legs beginning today.She also complains of chest pain. She denies having other symptoms. Source of History: patient Onset: today Position: leg (bilateral) Quality: cramping Timing: constant Associated Symptoms: + chest pain Review of Systems See HPI for pertinent positives & negatives. A total of 10 systems reviewed and were otherwise negative. Past Medical & Surgical Medical Problems: (1) Anemia, chronic disease (2) Anxiety (3) Chest pain (4) CKD (chronic kidney disease), stage IV (5) Dizziness (6) FRANCES (generalized anxiety disorder) (7) GERD (gastroesophageal reflux disease) (8) H/O echocardiogram (9) HLD (hyperlipidemia) (10) HTN (hypertension) (11) Hypothyroidism (12) Major depressive disorder, recurrent, moderate (13) Palpitations (14) SIADH (syndrome of inappropriate ADH production) Surgical Problems: (1) Hx of appendectomy (2) Hx of cholecystectomy (3) Hx of dilation and curettage (4) Status post total hip replacement, left Family History FHx: heart disease Hypertension Social History Smoking Status: Never Smoker Alcohol Use: none Drug Use: none Marital Status: Housing Status: lives with family Occupation Status: retired Current/Historical Medications Scheduled Aspirin (Aspirin Ec), 81 MG PO DAILY Atorvastatin (Lipitor), 10 MG PO HS Bumetanide (Bumex), 0.5 MG PO QAM Buspirone HCl (Buspirone HCl), 5 MG PO DAILY Docusate Sodium (Colace), 100 MG PO BID Epoetin Rafael (Procrit), 10,000 UNITS SC q 3 weeks Ferrous Sulfate (Ferrous Sulfate), 325 MG PO BID Levothyroxine Sodium (Synthroid), 88 MCG PO DAILY Magnesium Oxide (Mag-Ox), 400 MG PO BID Metoprolol Tartrate (Lopressor) (Lopressor), 12.5 MG PO BID Mirtazapine (Remeron), 15 MG PO HS Nifedipine (Nifedipine Er), 30 MG PO DAILY Pantoprazole (Protonix), 40 MG PO DAILY Ranitidine (Zantac), 150 MG PO DAILY Scheduled PRN Lorazepam (Ativan), 1 MG PO Q6 PRN for Anxiety Allergies Coded Allergies: Penicillins (Verified Allergy, Intermediate, HIVES, 03/06/17) Iron Sucrose (Verified Adverse Reaction, Mild, n&v, abd pain, 03/06/17) Physical Exam Vital Signs Date Time Temp Pulse Resp B/P (MAP) Pulse Ox O2 Delivery O2 Flow Rate FiO2 03/24/17 15:12 69 17 166/44 100 03/24/17 14:51 72 19 175/49 96 Room Air 03/24/17 14:06 71 16 167/45 99 Room Air 03/24/17 13:53 66 16 157/45 99 Room Air 71 156/50 89 98/75 03/24/17 13:35 99 Room Air 03/24/17 13:17 67 03/24/17 13:00 99 Room Air 03/24/17 13:00 99 Room Air 03/24/17 13:00 36.6 70 16 178/51 99 Room Air Physical Exam GENERAL: Patient is a healthy-appearing well-nourished female HEAD: Normocephalic atraumatic EYES: Ocular movements intact pupils equal and react to light OROPHARYNX mucous membranes are moist no exudates present no erythema or edema present NECK: Supple no nuchal rigidity CHEST: Good equal expansion LUNGS: Clear and equal to auscultation CARDIAC: Normal S1 and S2 ABDOMEN: Soft nontender no guarding BACK: No CVA tenderness EXTREMITIES: No pain upon palpation normal muscle strength in all groups no clubbing cyanosis or edema NEURO: Patient is following commands and answering questions appropriately. Alert and oriented x3 Cranial Nerves 2-12 grossly intact Medical Decision & Procedures ER Provider Diagnostic Interpretation: X-ray results as stated below per interpretation by me and the radiologist: CHEST ONE VIEW PORTABLE CLINICAL HISTORY: Atypical chest pain COMPARISON STUDY: No previous studies for comparison. FINDINGS: The heart is mildly enlarged. There is no failure. There is no focal pulmonary consolidation. There are no pleural effusions.[ IMPRESSION: No active disease in the chest. Electronically signed by: Mauro Sanchez M.D. 03/24/2017 2:14 PM Dictated Date/Time: 03/24/2017 2:13 PM Laboratory Results 03/24/17 13:45 Red Blood Count 2.99, Mean Corpuscular Volume 97.7, Mean Corpuscular Hemoglobin 34.8, Mean Corpuscular Hemoglobin Concent 35.6, Mean Platelet Volume 10.1, Neutrophils (%) (Auto) 65.0, Lymphocytes (%) (Auto) 26.8, Monocytes (%) (Auto) 7.0, Eosinophils (%) (Auto) 0.7, Basophils (%) (Auto) 0.5, Neutrophils # (Auto) 2.86, Lymphocytes # (Auto) 1.18, Monocytes # (Auto) 0.31, Eosinophils # (Auto) 0.03, Basophils # (Auto) 0.02 03/24/17 13:45 Test 03/24/17 13:20 03/24/17 13:45 03/24/17 13:49 Urine Color YELLOW Urine Appearance CLEAR (CLEAR) Urine pH 6.0 (4.5-7.5) Urine Specific Coleman 1.011 (1.000-1.030) Urine Protein 1+ (NEG) Urine Glucose (UA) NEG (NEG) Urine Ketones NEG (NEG) Urine Occult Blood NEG (NEG) Urine Nitrite NEG (NEG) Urine Bilirubin NEG (NEG) Urine Urobilinogen NEG (NEG) Urine Leukocyte Esterase TRACE (NEG) Urine WBC (Auto) 1-5 /hpf (0-5) Urine RBC (Auto) 0-4 /hpf (0-4) Urine Hyaline Casts (Auto) 0 /lpf (0-5) Urine Epithelial Cells (Auto) 5-10 /lpf (0-5) Urine Bacteria (Auto) NEG (NEG) White Blood Count 4.40 K/uL (4.8-10.8) Red Blood Count 2.99 M/uL (4.2-5.4) Hemoglobin 10.4 g/dL (12.0-16.0) Hematocrit 29.2 % (37-47) Mean Corpuscular Volume 97.7 fL (80-100) Mean Corpuscular Hemoglobin 34.8 pg (25-34) Mean Corpuscular Hemoglobin Concent 35.6 g/dl (32-36) Platelet Count 189 K/uL (130-400) Mean Platelet Volume 10.1 fL (7.4-10.4) Neutrophils (%) (Auto) 65.0 % Lymphocytes (%) (Auto) 26.8 % Monocytes (%) (Auto) 7.0 % Eosinophils (%) (Auto) 0.7 % Basophils (%) (Auto) 0.5 % Neutrophils # (Auto) 2.86 K/uL (1.4-6.5) Lymphocytes # (Auto) 1.18 K/uL (1.2-3.4) Monocytes # (Auto) 0.31 K/uL (0.11-0.59) Eosinophils # (Auto) 0.03 K/uL (0-0.5) Basophils # (Auto) 0.02 K/uL (0-0.2) RDW Standard Deviation 49.3 fL (36.4-46.3) RDW Coefficient of Variation 13.9 % (11.5-14.5) Immature Granulocyte % (Auto) 0.0 % Immature Granulocyte # (Auto) 0.00 K/uL (0.00-0.02) Prothrombin Time 10.0 SECONDS (9.0-12.0) Prothromb Time International Ratio 0.9 (0.9-1.1) Anion Gap 7.0 mmol/L (3-11) Est Creatinine Clear Calc Drug Dose 17.4 ml/min Estimated GFR () 33.5 Estimated GFR (Non- 28.9 BUN/Creatinine Ratio 17.1 (10-20) Calcium Level 9.0 mg/dl (8.5-10.1) Total Bilirubin 0.4 mg/dl (0.2-1) Direct Bilirubin 0.2 mg/dl (0-0.2) Aspartate Amino Transf (AST/SGOT) 20 U/L (15-37) Alanine Aminotransferase (ALT/SGPT) 22 U/L (12-78) Alkaline Phosphatase 117 U/L (45-117) Total Creatine Kinase 57 U/L (26-192) Creatine Kinase MB 0.6 ng/ml (0.5-3.6) Creatine Kinase MB Ratio 1.1 (0-3.0) Troponin I < 0.015 ng/ml (0-0.045) Total Protein 7.4 gm/dl (6.4-8.2) Albumin 3.8 gm/dl (3.4-5.0) Thyroid Stimulating Hormone (TSH) 2.270 uIu/ml (0.300-4.500) Bedside Glucose 107 mg/dl (70-90) Labs reviewed by ED physician. Medications Administered Medications (Trade) Dose Ordered Sig/Jassi Route Start Time Stop Time Status Last Admin Dose Admin Sodium Chloride 500 ml @ 999 mls/hr Q31M STAT IV 03/24/17 13:38 03/24/17 14:08 DC 03/24/17 14:04 999 MLS/HR Ondansetron HCl (Zofran Inj) 4 mg NOW STAT IV 03/24/17 13:38 03/24/17 13:40 DC 03/24/17 14:04 4 MG Sodium Chloride 500 ml @ 999 mls/hr Q31M STAT IV 03/24/17 14:06 03/24/17 14:36 DC 03/24/17 14:50 999 MLS/HR ECG Indication: weakness Rate (beats per minute): 69 Rhythm: sinus rhythm Findings: 1st degree AV block, PVC, no acute ischemic change ED Course 1333: Past medical records reviewed. The patient was evaluated in room A10. A complete history and physical examination was performed. 1338: Ordered Zofran Inj 4 mg IV, Morphine Sulfate 2 mg IV, Sodium Chloride 500 ml @ 999 mls/hr IV. 1406: Ordered Sodium Chloride 500 ml @ 900 mls/hr IV. 1430:: Upon reexamination the patient is resting. I discussed results and treatment plan with the patient. She verbalizes agreement and understanding. The patient is ready for discharge. Medical Decision Differential diagnosis: Etiologies such as metabolic, infection, hypo/hyperglycemia, electrolyte abnormalities, cardiac sources, intracerebral event, toxicologic, neurologic, as well as others were entertained. This is an 86-year-old female who presents emergency department complaining of generalized weakness. The patient has had multiple visits to the emergency department in the past. I will note she is orthostatic hypotensive on examination. For this reason the patient was given 2 saline boluses. She does not have an elevation in her white blood count cell count has no evidence of urinary tract infection. I do feel that the patient can be safely discharged home for follow-up with her primary care physician. Prior to discharge the patient was ambulated by nursing staff. Patient was in agreement with the treatment plan. Medication Reconcilliation Current Medication List: was personally reviewed by me Blood Pressure Screening Patient's blood pressure: Elevated blood pressure Blood pressure disposition: Referred to PCP Impression Primary Impression: Orthostatic hypotension Additional Impression: Dehydration Scribe Attestation The scribe's documentation has been prepared under my direction and personally reviewed by me in its entirety. I confirm that the note above accurately reflects all work, treatment, procedures, and medical decision making performed by me. Departure Information Dispostion Home / Self-Care Referrals Yogesh Quevedo III, M.D. (PCP) Forms HOME CARE DOCUMENTATION FORM, IMPORTANT VISIT INFORMATION, School Instructions, Work Instructions Patient Instructions ED Dehydration, ED Hypotension Orthostatic, My [facility] Additional Instructions Increase fluids next 48 hours You have been examined and treated today on an emergency basis only. This is not a substitute for, or an effort to provide, complete comprehensive medical care. It is impossible to recognize and treat all injuries or illnesses in a single emergency department visit. It is therefore important that you follow up closely with [facility]. Call as soon as possible for an appointment. Thank you for your time and consideration. I look forward to speaking with you again soon. Please don't hesitate to call us if you have any questions. Problem Qualifiers
[2017-03-24 13:35] VITALS: O2SAT 99; Ht 142.2 cm; Wt 54.7 kg
[2017-03-24] MEDS ORDERED: MoRPHine SULFATE 4 MG/ML 1 ML CARP\\VIAL IV STA (13:38)
[2017-03-24] MEDS ORDERED: ONDANSETRON INJ 2 MG/ML 2 ML VIAL IV STA (13:38)
[2017-03-24] MEDS ORDERED: SODIUM CHLORIDE 0.9% 500ML 500 ML IV STA ×2 (13:38→14:06)
[2017-03-24 13:50] LABS: URINE APPEARANCE CLEAR (CLEAR); URINE BILIRUBIN NEG (NEG); URINE COLOR YELLOW; URINE NITRITE NEG (NEG); URINE SPECIFIC GRAVITY 1.011 (1.000-1.030); UROBILINOGEN NEG (NEG)
[2017-03-24 13:54] LABS: MANUAL MICROSCOPIC REQUIRED? NO; REVIEW REQ? NO
[2017-03-24 14:04] LABS: BASO % 0.5 %; BASO ABS # 0.02 K/uL (0-0.2); COMPLETE YES; EOS % 0.7 %; HEMATOCRIT 29.2 % (37-47); LYMPH % 26.8 %; LYMPH ABS # 1.18 K/uL (1.2-3.4); MEAN CELL VOLUME 97.7 fL (80-100); MEAN CORPUSCULAR HEMOGLOBIN 34.8 pg (25-34); MEAN CORPUSCULAR HGB CONC 35.6 g/dl (32-36); MEAN PLATELET VOLUME 10.1 fL (7.4-10.4); PLATELET COUNT 189 K/uL (130-400); RED BLOOD COUNT 2.99 M/uL (4.2-5.4)
[2017-03-24 14:12] LABS: INR 0.9 (0.9-1.1)
--- NOTE | 2017-03-24 14:15 | DIAGNOSTIC IMAGING REPORT ---
CHEST ONE VIEW PORTABLE CLINICAL HISTORY: Atypical chest pain COMPARISON STUDY: No previous studies for comparison. FINDINGS: The heart is mildly enlarged. There is no failure. There is no focal pulmonary consolidation. There are no pleural effusions.[ IMPRESSION: No active disease in the chest. Electronically signed by: Mauro Sanchez M.D. 03/24/2017 2:14 PM Dictated Date/Time: 03/24/2017 2:13 PM
[2017-03-24 14:22] LABS: ALT/SGPT 22 U/L (12-78); AST/SGOT 20 U/L (15-37); BLOOD UREA NITROGEN 27 mg/dl (7-18); BUN/CREATININE RATIO 17.1 (10-20); CARBON DIOXIDE 30 mmol/L (21-32); CHLORIDE 87 mmol/L (98-107); GLUCOSE 104 mg/dl (70-99); POTASSIUM 3.7 mmol/L (3.5-5.1); SODIUM 124 mmol/L (136-145)
[2017-03-24 14:32] LABS: ALKALINE PHOSPHATASE 117 U/L (45-117); CKMB/CK RATIO 1.1 (0-3.0)
[2017-03-24] MEDS ORDERED: MAGN400T6 PO (14:39)
[2017-03-24 15:12] VITALS: BP 166/44; PULSE 69; O2SAT 100
== END 2017-03-24 15:10 | disposition home or self-care (01) ==
LOC: EDBD 12:54 → C.EDA 12:56
DX: I95.1 Orthostatic hypotension (principal); E86.0 Dehydration; F41.9 Anxiety disorder, unspecified; N18.4 Chronic kidney disease, stage 4 (severe); K21.9 Gastro-esophageal reflux disease without esophagitis; E78.5 Hyperlipidemia, unspecified; I12.9 Hypertensive chronic kidney disease with stage 1 through stage 4 chronic kidney disease, or unspecified chronic kidney disease; E03.9 Hypothyroidism, unspecified; F32.9 Major depressive disorder, single episode, unspecified; E22.2 Syndrome of inappropriate secretion of antidiuretic hormone; Z96.642 Presence of left artificial hip joint; Z82.49 Family history of ischemic heart disease and other diseases of the circulatory system; Z79.82 Long term (current) use of aspirin; Z79.899 Other long term (current) drug therapy

== ENCOUNTER 2017-04-07 06:29 | Emergency (ER) | payer OTHER ==
[~2017-04-07] VITALS: Ht 149.9 cm; Wt 51.9 kg
[~2017-04-07 06:29] MED LIST changes: -CPR500HP PO; -DOCU100C31 PO; +MAGN400T6 PO
[2017-04-07 06:39] VITALS: TEMP 36.7; Ht 149.9 cm; Wt 51.9 kg
--- NOTE | 2017-04-07 06:57 | EMERGENCY ROOM VISIT NOTE ---
History Report prepared by Unique: Nusrat Everett Under the Supervision of: Dr. Hilda Mathews, D.O. First contact with patient: 06:32 Stated Complaint: CHEST PAIN/LEG CRAMPING/ History of Present Illness The patient is an 86 year old female who presents to the Emergency Room with complaints of persistent chest pain that began prior to arrival. The patient states that last night she began experiencing chest pain and leg cramping. She states that she has had leg cramping with her previous bladder infections. The patient states that she gets the bladder infections frequently but denies being on any current antibiotics. She states that she has been experiencing abdominal pain. The patient denies ever having chest pain like this in the past. She reports difficulty breathing. The patient denies any nausea, back pain, dizziness, or lightheadedness. Review of EMR reveals that the patient is here frequently. Her echo from February 2017 revealed an EF 60-65%, normal LV systolic function, moderate to severe tricuspid regurgitation. Source of History: patient Onset: prior to arrival Position: chest Timing: other (persistent) Associated Symptoms: + abdominal pain, No nausea, No back pain Note: Associated Symptoms: leg cramping Review of Systems See HPI for pertinent positives & negatives. A total of 10 systems reviewed and were otherwise negative. Past Medical & Surgical Medical Problems: (1) Anemia, chronic disease (2) Anxiety (3) Chest pain (4) CKD (chronic kidney disease), stage IV (5) Dizziness (6) FRANCES (generalized anxiety disorder) (7) GERD (gastroesophageal reflux disease) (8) H/O echocardiogram (9) HLD (hyperlipidemia) (10) HTN (hypertension) (11) Hypothyroidism (12) Major depressive disorder, recurrent, moderate (13) Palpitations (14) SIADH (syndrome of inappropriate ADH production) Surgical Problems: (1) Hx of appendectomy (2) Hx of cholecystectomy (3) Hx of dilation and curettage (4) Status post total hip replacement, left Family History FHx: heart disease Hypertension Social History Smoking Status: Former Smoker Alcohol Use: none Drug Use: none Marital Status: Housing Status: lives with family Occupation Status: retired Current/Historical Medications Scheduled Aspirin (Aspirin Ec), 81 MG PO DAILY Atorvastatin (Lipitor), 10 MG PO HS Bumetanide (Bumex), 0.5 MG PO QAM Buspirone HCl (Buspirone HCl), 5 MG PO DAILY Docusate Sodium (Colace), 100 MG PO BID Epoetin Rafael (Procrit), 10,000 UNITS SC q 3 weeks Ferrous Sulfate (Ferrous Sulfate), 325 MG PO BID Levothyroxine Sodium (Synthroid), 88 MCG PO DAILY Magnesium Oxide (Mag-Ox), 400 MG PO BID Metoprolol Tartrate (Lopressor) (Lopressor), 12.5 MG PO BID Mirtazapine (Remeron), 15 MG PO HS Nifedipine (Nifedipine Er), 30 MG PO DAILY Pantoprazole (Protonix), 40 MG PO DAILY Ranitidine (Zantac), 150 MG PO DAILY Scheduled PRN Lorazepam (Ativan), 1 MG PO Q6 PRN for Anxiety Allergies Coded Allergies: Penicillins (Verified Allergy, Intermediate, HIVES, 04/07/17) Iron Sucrose (Verified Adverse Reaction, Mild, n&v, abd pain, 04/07/17) Physical Exam Vital Signs Date Time Temp Pulse Resp B/P (MAP) Pulse Ox O2 Delivery O2 Flow Rate FiO2 04/07/17 16:23 66 20 127/45 94 Room Air 04/07/17 15:43 61 12 199/58 95 Room Air 04/07/17 15:14 68 16 207/62 96 Room Air 04/07/17 15:00 65 16 196/58 94 Room Air 04/07/17 14:42 62 20 195/94 94 04/07/17 13:44 62 20 193/53 98 Room Air 04/07/17 11:50 64 16 200/53 97 Room Air 04/07/17 10:50 62 199/57 68 187/66 68 199/47 04/07/17 10:25 62 20 198/53 96 Room Air 04/07/17 08:25 52 14 174/51 97 04/07/17 07:45 60 14 162/50 97 Room Air 04/07/17 06:39 36.7 62 21 197/46 96 Room Air 04/07/17 06:39 63 Physical Exam GENERAL: alert, elderly, frail appearing, pale, well nourished, no distress, non -toxic EYE EXAM: normal conjunctiva, PERRL and EOM's grossly intact OROPHARYNX: no exudate, no erythema, lips, buccal mucosa, and tongue normal and mucous membranes are moist NECK: supple, no nuchal rigidity, no adenopathy, non-tender LUNGS: Breath sounds were diminished no wheezing, rhonchi or rales, poor inspiratory effort HEART: Systolic ejection murmur, S1 normal and S2 normal ABDOMEN: abdomen soft, non-tender, normo-active bowel sounds, no masses, no rebound or guarding. BACK: Back is symmetrical on inspection and there is no deformity, no midline tenderness, no CVA tenderness. SKIN: no rashes and no bruising UPPER EXTREMITIES: upper extremities are grossly normal. LOWER EXTREMITIES: No swelling, tender bilaterally with palpation, deformities, no evidence of trauma, no skin effusions NEURO EXAM: Awake, alert, oriented, answers questions, follow commands. Generalized weakness noted, unable to asses further neurologic testing. Medical Decision & Procedures ER Provider Diagnostic Interpretation: Radiology results have been interpreted by the radiologist and reviewed by me. CHEST ONE VIEW PORTABLE HISTORY: Atypical chest pain COMPARISON: Chest 03/24/2017. FINDINGS: Slight prominence of interstitial markings, unchanged. This is likely chronic. No new focal lung consolidations to suggest pneumonia. No evidence for pulmonary edema. Heart remains mildly enlarged. No pleural effusions. No pneumothorax. IMPRESSION: No significant change compared to the prior study. No acute process. Electronically signed by: Akash Santoyo M.D. 04/07/2017 7:15 AM Dictated Date/Time: 04/07/2017 7:14 AM ABDOMEN AND PELVIS CT WITHOUT CONTRAST CT DOSE: 376.18 mGycm HISTORY: Generalized abdominal pain. TECHNIQUE: Multiaxial CT images of the abdomen and pelvis were performed without contrast. A dose lowering technique was utilized adhering to the principles of ALARA. COMPARISON STUDY: Abdomen and pelvis CT 12/30/2016. FINDINGS: Bibasilar linear densities favor subsegmental atelectasis. Trace left pleural effusion. The heart remains enlarged. No pericardial effusion. No pneumoperitoneum. No pneumatosis. Left total hip arthroplasty. Dextroscoliosis with degenerative changes within the lumbar spine. The liver, spleen, adrenal glands, and pancreas are unremarkable. Bilateral cortical renal scarring. No hydronephrosis. Multiple bilateral renal hypodense lesions are not significantly changed. No retroperitoneal lymphadenopathy. Pelvic structures are suboptimally evaluated due to metallic artifact and the left hip prosthesis. However, the bladder appears unremarkable. There is pelvic floor collapse. Colonic diverticulosis. Cholecystectomy. There is a 2.8 x 1.2 cm subcutaneous fluid collection within the right lateral hip. This is new from the prior study. Suboptimal evaluation for bowel pathology due to the lack of intravenous and oral contrast. However, there is no definite bowel wall thickening or obstruction. Moderate to large amount of stool within the rectum which is distended up to 7.5 cm. IMPRESSION: 1. Distended rectum containing a moderate to large amount of stool. However, no definite bowel wall thickening or obstruction. 2. No hydronephrosis. 3. Trace left pleural effusion. 4. Stable cardiomegaly. 5. Colonic diverticulosis. Electronically signed by: Akash Santoyo M.D. 04/07/2017 10:31 AM Dictated Date/Time: 04/07/2017 10:21 AM Laboratory Results 04/07/17 06:20 Red Blood Count 2.77, Mean Corpuscular Volume 97.5, Mean Corpuscular Hemoglobin 33.6, Mean Corpuscular Hemoglobin Concent 34.4, Mean Platelet Volume 10.8, Neutrophils (%) (Auto) 49.5, Lymphocytes (%) (Auto) 39.3, Monocytes (%) (Auto) 9.5, Eosinophils (%) (Auto) 1.3, Basophils (%) (Auto) 0.4, Neutrophils # (Auto) 2.61, Lymphocytes # (Auto) 2.07, Monocytes # (Auto) 0.50, Eosinophils # (Auto) 0.07, Basophils # (Auto) 0.02 04/07/17 06:20 Test 04/07/17 06:20 04/07/17 07:04 04/07/17 07:13 04/07/17 10:41 White Blood Count 5.27 K/uL (4.8-10.8) Red Blood Count 2.77 M/uL (4.2-5.4) Hemoglobin 9.3 g/dL (12.0-16.0) Hematocrit 27.0 % (37-47) Mean Corpuscular Volume 97.5 fL (80-100) Mean Corpuscular Hemoglobin 33.6 pg (25-34) Mean Corpuscular Hemoglobin Concent 34.4 g/dl (32-36) Platelet Count 154 K/uL (130-400) Mean Platelet Volume 10.8 fL (7.4-10.4) Neutrophils (%) (Auto) 49.5 % Lymphocytes (%) (Auto) 39.3 % Monocytes (%) (Auto) 9.5 % Eosinophils (%) (Auto) 1.3 % Basophils (%) (Auto) 0.4 % Neutrophils # (Auto) 2.61 K/uL (1.4-6.5) Lymphocytes # (Auto) 2.07 K/uL (1.2-3.4) Monocytes # (Auto) 0.50 K/uL (0.11-0.59) Eosinophils # (Auto) 0.07 K/uL (0-0.5) Basophils # (Auto) 0.02 K/uL (0-0.2) RDW Standard Deviation 47.0 fL (36.4-46.3) RDW Coefficient of Variation 13.2 % (11.5-14.5) Immature Granulocyte % (Auto) 0.0 % Immature Granulocyte # (Auto) 0.00 K/uL (0.00-0.02) Anion Gap 10.0 mmol/L (3-11) Est Creatinine Clear Calc Drug Dose 16.5 ml/min Estimated GFR () 29.0 Estimated GFR (Non- 25.0 BUN/Creatinine Ratio 21.5 (10-20) Calcium Level 9.2 mg/dl (8.5-10.1) Phosphorus Level 3.6 mg/dl (2.5-4.9) Magnesium Level 2.7 mg/dl (1.8-2.4) Total Bilirubin 0.5 mg/dl (0.2-1) Aspartate Amino Transf (AST/SGOT) 20 U/L (15-37) Alanine Aminotransferase (ALT/SGPT) 17 U/L (12-78) Alkaline Phosphatase 105 U/L (45-117) Pro-B-Type Natriuretic Peptide 81109 pg/ml (0-1800) Total Protein 7.3 gm/dl (6.4-8.2) Albumin 3.7 gm/dl (3.4-5.0) Globulin 3.6 gm/dl (2.5-4.0) Albumin/Globulin Ratio 1.0 (0.9-2) Lipase 262 U/L (73-393) Urine Color YELLOW Urine Appearance CLEAR (CLEAR) Urine pH 7.0 (4.5-7.5) Urine Specific [place] <= 1.005 (1.000-1.030) Urine Protein TRACE (NEG) Urine Glucose (UA) NEG (NEG) Urine Ketones NEG (NEG) Urine Occult Blood TRACE (NEG) Urine Nitrite NEG (NEG) Urine Bilirubin NEG (NEG) Urine Urobilinogen NEG (NEG) Urine Leukocyte Esterase NEG (NEG) Urine RBC 0-4 /hpf (0-4) Urine WBC 1-5 /hpf (0-5) Urine Epithelial Cells 0-5 /lpf (0-5) Urine Bacteria NEG (NEG) Lactic Acid Level 0.7 mmol/L (0.4-2.0) Troponin I 0.016 ng/ml (0-0.045) Laboratory results per my review. Medications Administered Medications (Trade) Dose Ordered Sig/Jassi Route Start Time Stop Time Status Last Admin Dose Admin Acetaminophen (Tylenol Tab) 1,000 mg NOW STAT PO 04/07/17 09:06 04/07/17 09:07 DC 04/07/17 09:25 1,000 MG Ondansetron HCl (Zofran 8mg Iv) 4 mg NOW STAT IV 04/07/17 12:37 04/07/17 12:38 DC 04/07/17 13:44 8 MG Metoprolol Tartrate (Lopressor Tab) 12.5 mg NOW STAT PO 04/07/17 14:45 04/07/17 14:46 DC 04/07/17 14:58 12.5 MG Nifedipine (Procardia Cap) 30 mg NOW STAT PO 04/07/17 15:29 04/07/17 15:30 DC 04/07/17 15:49 30 MG ECG Indication: chest pain Rate (beats per minute): 65 Rhythm: sinus rhythm Findings: 1st degree AV block, other (normal axis, normal intervals, slight down-sloping in ST segments in V5 and V6) Comparison ECG Date: 03/24/17 Change: When compared to EKG done on 03/24/17, ST changes are slightly worse. ED Course 0640: The patient was evaluated in room B7. A complete history and physical exam was performed. 0906: Ordered Tylenol Tab 1000 mg PO. 1232: I reevaluated the patient and she is feeling a little bit nauseous, but looks better. She is also eating at this time. 1237: Ordered Zofran 8 mg IV. 1445: The patient reports that she did not take her morning blood pressure medications. Ordered Lopressor Tab 12.5 mg PO. 1520: Pt's other BP med ordered, Procardia. 1616: BP now improved. Family at bedside comfortable taking the pt home. Medical Decision Differential diagnoses includes but is not limited to acute coronary syndrome, myocardial infarction, pericarditis, pulmonary embolus, aortic dissection, pneumonia, pneumothorax, musculoskeletal, shingles, esophageal. Pt with extensive hx and here frequently for similar complaints. Pt with chronic hyponatremia and CKD, hx of chest pain recently evaluated on admission here. Pt improved here, ambulated with a steady gait, tolerated po here, VS stable with exception of elevated BP, however pt finally admitted to missing her daily meds upon arrival of her family. Pt with hx of depression, stated she didn't think her family would welcome her home but denied Si/HI. Case mgmt reviewed and knows pt well, pt with several resources previously established per their review and family supportive of pt and willing to take home. Doubt acs, dissection, aaa, bacteremia/sepsis, cva, cerebral edema. Family feels pt acting normally. Pt with multiple complaints, changing with each re-exam. I feel less likely acute physiologic problem and more likely related to depression and chronic conditions. Pt observed several hours, given BP meds with helped, doubt hypertensive emergency. Medication Reconcilliation Current Medication List: was personally reviewed by me Blood Pressure Screening Patient's blood pressure: Elevated blood pressure Blood pressure disposition: Referred to PCP Impression Primary Impression: Major depressive disorder, recurrent, moderate Additional Impressions: HTN (hypertension) Anemia, chronic disease Chest pain Generalized weakness Hyponatremia CKD (chronic kidney disease), stage IV Constipation Scribe Attestation The scribe's documentation has been prepared under my direction and personally reviewed by me in its entirety. I confirm that the note above accurately reflects all work, treatment, procedures, and medical decision making performed by me. Departure Information Dispostion Home / Self-Care Referrals Yogesh Quevedo III, M.D. (PCP) Additional Instructions Please follow up with your family doctor. Please have your sodium level and kidney function rechecked later this week. Please take your medications as prescribed. If you have any worsening symptoms or new concerns, please return the emergency room. Problem Qualifiers Additional Impressions: HTN (hypertension) Hypertension type: essential hypertension Qualified Codes: I10 - Essential ( primary) hypertension Chest pain Chest pain type: unspecified Qualified Codes: R07.9 - Chest pain, unspecified Constipation Constipation type: unspecified constipation type Qualified Codes: K59.00 - Constipation, unspecified
[2017-04-07 07:02] LABS: BASO % 0.4 %; BASO ABS # 0.02 K/uL (0-0.2); COMPLETE YES; EOS % 1.3 %; LYMPH % 39.3 %; LYMPH ABS # 2.07 K/uL (1.2-3.4); MEAN CELL VOLUME 97.5 fL (80-100); MEAN CORPUSCULAR HEMOGLOBIN 33.6 pg (25-34); MEAN CORPUSCULAR HGB CONC 34.4 g/dl (32-36); MEAN PLATELET VOLUME 10.8 fL (7.4-10.4); MONO % 9.5 %; NEUT % 49.5 %; PLATELET COUNT 154 K/uL (130-400); RED BLOOD COUNT 2.77 M/uL (4.2-5.4); WHITE BLOOD COUNT 5.27 K/uL (4.8-10.8)
--- NOTE | 2017-04-07 07:16 | DIAGNOSTIC IMAGING REPORT ---
CHEST ONE VIEW PORTABLE HISTORY: Atypical chest pain COMPARISON: Chest 03/24/2017. FINDINGS: Slight prominence of interstitial markings, unchanged. This is likely chronic. No new focal lung consolidations to suggest pneumonia. No evidence for pulmonary edema. Heart remains mildly enlarged. No pleural effusions. No pneumothorax. IMPRESSION: No significant change compared to the prior study. No acute process. Electronically signed by: Akash Santoyo M.D. 04/07/2017 7:15 AM Dictated Date/Time: 04/07/2017 7:14 AM
[2017-04-07 07:18] LABS: ALT/SGPT 17 U/L (12-78); AST/SGOT 20 U/L (15-37); BLOOD UREA NITROGEN 39 mg/dl (7-18); BUN/CREATININE RATIO 21.5 (10-20); CALCIUM 9.2 mg/dl (8.5-10.1); CARBON DIOXIDE 27 mmol/L (21-32); CHLORIDE 86 mmol/L (98-107); GLUCOSE 87 mg/dl (70-99); MAGNESIUM 2.7 mg/dl (1.8-2.4); POTASSIUM 3.8 mmol/L (3.5-5.1); SODIUM 123 mmol/L (136-145)
[2017-04-07 07:23] LABS: ALKALINE PHOSPHATASE 105 U/L (45-117); PHOSPHORUS 3.6 mg/dl (2.5-4.9)
[2017-04-07 07:41] LABS: MANUAL MICROSCOPIC REQUIRED? YES; URINE APPEARANCE CLEAR (CLEAR); URINE BILIRUBIN NEG (NEG); URINE COLOR YELLOW; URINE NITRITE NEG (NEG); URINE SPECIFIC GRAVITY <= 1.005 (1.000-1.030); UROBILINOGEN NEG (NEG)
[2017-04-07 07:48] LABS: REVIEW REQ? NO
[2017-04-07 08:02] LABS: URINE BACTERIA NEG (NEG); URINE RBC 0-4 /hpf (0-4)
[2017-04-07 08:03] LABS: ZZURINE CULT IF INDIC CATH NO
[2017-04-07] MEDS ORDERED: ACETAMINOPHEN 500 MG TAB PO STA (09:06)
--- NOTE | 2017-04-07 10:32 | DIAGNOSTIC IMAGING REPORT ---
ABDOMEN AND PELVIS CT WITHOUT CONTRAST CT DOSE: 376.18 mGycm HISTORY: Generalized abdominal pain. TECHNIQUE: Multiaxial CT images of the abdomen and pelvis were performed without contrast. A dose lowering technique was utilized adhering to the principles of ALARA. COMPARISON STUDY: Abdomen and pelvis CT 12/30/2016. FINDINGS: Bibasilar linear densities favor subsegmental atelectasis. Trace left pleural effusion. The heart remains enlarged. No pericardial effusion. No pneumoperitoneum. No pneumatosis. Left total hip arthroplasty. Dextroscoliosis with degenerative changes within the lumbar spine. The liver, spleen, adrenal glands, and pancreas are unremarkable. Bilateral cortical renal scarring. No hydronephrosis. Multiple bilateral renal hypodense lesions are not significantly changed. No retroperitoneal lymphadenopathy. Pelvic structures are suboptimally evaluated due to metallic artifact and the left hip prosthesis. However, the bladder appears unremarkable. There is pelvic floor collapse. Colonic diverticulosis. Cholecystectomy. There is a 2.8 x 1.2 cm subcutaneous fluid collection within the right lateral hip. This is new from the prior study. Suboptimal evaluation for bowel pathology due to the lack of intravenous and oral contrast. However, there is no definite bowel wall thickening or obstruction. Moderate to large amount of stool within the rectum which is distended up to 7.5 cm. IMPRESSION: 1. Distended rectum containing a moderate to large amount of stool. However, no definite bowel wall thickening or obstruction. 2. No hydronephrosis. 3. Trace left pleural effusion. 4. Stable cardiomegaly. 5. Colonic diverticulosis. Electronically signed by: Akash Santoyo M.D. 04/07/2017 10:31 AM Dictated Date/Time: 04/07/2017 10:21 AM
[2017-04-07] MEDS ORDERED: ONDANSETRON 8 MG/54 ML D5W IV STA (12:37)
[2017-04-07] MEDS ORDERED: METOPROLOL TARTRATE 25 MG TAB PO STA (14:45)
[2017-04-07] MEDS ORDERED: NIFEdipine 10 MG CAP PO STA (15:29)
[2017-04-07 16:23] VITALS: BP 127/45; PULSE 66; O2SAT 94
== END 2017-04-07 16:40 | disposition home or self-care (01) ==
LOC: EDBD 06:29 → C.EDB 06:30
DX: F32.9 Major depressive disorder, single episode, unspecified (principal); I12.9 Hypertensive chronic kidney disease with stage 1 through stage 4 chronic kidney disease, or unspecified chronic kidney disease; N18.4 Chronic kidney disease, stage 4 (severe); I45.10 Unspecified right bundle-branch block; D64.9 Anemia, unspecified; R53.83 Other fatigue; E87.1 Hypo-osmolality and hyponatremia; K59.00 Constipation, unspecified; R07.9 Chest pain, unspecified

== ENCOUNTER 2017-04-22 12:18 | Emergency (ER) | payer OTHER ==
[~2017-04-22] VITALS: Ht 162.6 cm; Wt 52.1 kg
[2017-04-22 12:26] VITALS: Ht 162.6 cm; Wt 52.1 kg
[2017-04-22 12:32] VITALS: O2SAT 97
[2017-04-22] MEDS ORDERED: SODIUM CHLORIDE 0.9% 1000ML 1,000 ML IV STA (12:40)
--- NOTE | 2017-04-22 13:32 | DIAGNOSTIC IMAGING REPORT ---
CHEST ONE VIEW PORTABLE HISTORY: EVALUATE ALTERED MENTAL STATUS/WEAKNESS COMPARISON: Chest 04/07/2017. FINDINGS: Stable mild cardiomegaly. No pneumothorax. No pleural effusions. Punctate calcified granuloma within the right upper lobe. No new focal lung consolidations to suggest pneumonia. No evidence for pulmonary edema. Linear densities the left lung base have improved. This favors resolving atelectasis. IMPRESSION: 1. No acute process within the chest. 2. Improved aeration within the left lung base suggesting resolving atelectasis. No new focal lung consolidations. 3. Stable mild cardiomegaly. Electronically signed by: Akash Santoyo M.D. 04/22/2017 1:31 PM Dictated Date/Time: 04/22/2017 1:29 PM
[2017-04-22 13:54] LABS: BASO % 0.4 %; BASO ABS # 0.02 K/uL (0-0.2); COMPLETE YES; EOS % 0.8 %; HEMATOCRIT 31.4 % (37-47); IG% 0.2 %; LYMPH % 25.1 %; MEAN CORPUSCULAR HEMOGLOBIN 34.1 pg (25-34); MEAN CORPUSCULAR HGB CONC 34.1 g/dl (32-36); MEAN PLATELET VOLUME 9.7 fL (7.4-10.4); MONO % 9.4 %; NEUT % 64.1 %; PLATELET COUNT 189 K/uL (130-400); RED BLOOD COUNT 3.14 M/uL (4.2-5.4); WHITE BLOOD COUNT 4.78 K/uL (4.8-10.8)
[2017-04-22 14:01] LABS: PARTIAL THROMBOPLASTIN RATIO 0.9; PROTHROMBIN TIME (PATIENT) 10.5 SECONDS (9.0-12.0)
[2017-04-22 14:06] LABS: URINE APPEARANCE CLEAR (CLEAR); URINE BILIRUBIN NEG (NEG); URINE COLOR YELLOW; URINE NITRITE NEG (NEG); URINE SPECIFIC GRAVITY 1.014 (1.000-1.030); UROBILINOGEN NEG (NEG); ZZURINE CULT IF INDIC CATH NO
[2017-04-22 14:09] LABS: MANUAL MICROSCOPIC REQUIRED? NO; REVIEW REQ? NO
[2017-04-22 14:13] LABS: ALT/SGPT 27 U/L (12-78); AST/SGOT 21 U/L (15-37); BLOOD UREA NITROGEN 42 mg/dl (7-18); BUN/CREATININE RATIO 23.3 (10-20); CALCIUM 9.2 mg/dl (8.5-10.1); CARBON DIOXIDE 30 mmol/L (21-32); CHLORIDE 92 mmol/L (98-107); GLUCOSE 101 mg/dl (70-99); MAGNESIUM 2.7 mg/dl (1.8-2.4); POTASSIUM 4.1 mmol/L (3.5-5.1); SODIUM 129 mmol/L (136-145)
[2017-04-22 14:21] LABS: ALKALINE PHOSPHATASE 100 U/L (45-117); CKMB/CK RATIO 2.3 (0-3.0)
--- NOTE | 2017-04-22 14:39 | EMERGENCY ROOM VISIT NOTE ---
History Report prepared by Unique: Nusrat Everett Under the Supervision of: Dr. Leonardo Bennett D.O. First contact with patient: 12:39 Chief Complaint: OTHER COMPLAINT Stated Complaint: kidneys failing History of Present Illness The patient is an 86 year old female who presents to the Emergency Room with complaints of a worsening bladder infection that began over the weekend. She currently rates her discomfort as a 1/10 in severity. The patient states that she was evaluated by her PCP's office on Thursday and diagnosed with a bladder infection. She states that she was started on Cipro three times per day. The patient states that she was called today and told that her kidneys were failing and that she needed to go to the emergency department. She reports generalized aches over her body today. Source of History: patient Onset: over the weekend Position: other (global) Symptom Intensity: 1/10 Quality: other (bladder infection) Timing: worsening Note: Associated symptoms: generalized aches over her body Review of Systems See HPI for pertinent positives & negatives. A total of 10 systems reviewed and were otherwise negative. Past Medical & Surgical Medical Problems: (1) Anemia, chronic disease (2) Anxiety (3) Chest pain (4) CKD (chronic kidney disease), stage IV (5) Dizziness (6) FRANCES (generalized anxiety disorder) (7) GERD (gastroesophageal reflux disease) (8) H/O echocardiogram (9) HLD (hyperlipidemia) (10) HTN (hypertension) (11) Hypothyroidism (12) Major depressive disorder, recurrent, moderate (13) Palpitations (14) SIADH (syndrome of inappropriate ADH production) Surgical Problems: (1) Hx of appendectomy (2) Hx of cholecystectomy (3) Hx of dilation and curettage (4) Status post total hip replacement, left Family History FHx: heart disease Hypertension Social History Smoking Status: Former Smoker Alcohol Use: none Drug Use: none Marital Status: Housing Status: lives with family Occupation Status: retired Current/Historical Medications Scheduled Aspirin (Aspirin Ec), 81 MG PO DAILY Atorvastatin (Lipitor), 10 MG PO HS Bumetanide (Bumex), 0.5 MG PO QAM Buspirone HCl (Buspirone HCl), 5 MG PO DAILY Docusate Sodium (Colace), 100 MG PO BID Ferrous Sulfate (Ferrous Sulfate), 325 MG PO BID Levothyroxine Sodium (Synthroid), 88 MCG PO DAILY Magnesium Oxide (Mag-Ox), 400 MG PO BID Metoprolol Tartrate (Lopressor) (Lopressor), 12.5 MG PO BID Mirtazapine (Remeron), 15 MG PO HS Nifedipine (Nifedipine Er), 30 MG PO DAILY Pantoprazole (Protonix), 40 MG PO DAILY Ranitidine (Zantac), 150 MG PO DAILY Scheduled PRN Lorazepam (Ativan), 1 MG PO Q6 PRN for Anxiety Allergies Coded Allergies: Penicillins (Verified Allergy, Intermediate, HIVES, 04/07/17) Iron Sucrose (Verified Adverse Reaction, Mild, n&v, abd pain, 04/07/17) Physical Exam Vital Signs Date Time Temp Pulse Resp B/P (MAP) Pulse Ox O2 Delivery O2 Flow Rate FiO2 04/22/17 13:33 66 16 99 Room Air 04/22/17 13:31 174/52 04/22/17 13:25 175/60 04/22/17 13:18 69 22 04/22/17 13:03 67 21 97 Room Air 04/22/17 12:48 70 21 98 04/22/17 12:40 65 04/22/17 12:32 97 Room Air 04/22/17 12:26 36.7 65 16 166/65 98 Room Air 04/22/17 12:25 166/65 Physical Exam CONSTITUTIONAL/VITAL SIGNS: Reviewed / noted above. GENERAL: Non-toxic in appearance. INTEGUMENTARY: Warm, dry, and [place]. HEAD: Normocephalic. EYES: without scleral icterus or trauma. ENT/OROPHARYNX: clear and moist. LYMPHADENOPATHY/NECK: Is supple without lymphadenopathy or meningismus. RESPIRATORY: Lungs clear and equal. CARDIOVASCULAR: Regular rate and rhythm. GI/ABDOMEN: Soft and nontender. No organomegaly or pulsatile mass. No rebound or guarding. Normal bowel sounds. EXTREMITIES: Warm and well perfused. BACK: No CVA tenderness. NEUROLOGICAL: Intact without focal deficits. PSYCHIATRIC: normal affect. MUSCULOSKELETAL: Normally developed with good muscle tone. Medical Decision & Procedures ER Provider Diagnostic Interpretation: X ray results and stated below per my interpretation and radiology interpretation. CHEST ONE VIEW PORTABLE HISTORY: EVALUATE ALTERED MENTAL STATUS/WEAKNESS COMPARISON: Chest 04/07/2017. FINDINGS: Stable mild cardiomegaly. No pneumothorax. No pleural effusions. Punctate calcified granuloma within the right upper lobe. No new focal lung consolidations to suggest pneumonia. No evidence for pulmonary edema. Linear densities the left lung base have improved. This favors resolving atelectasis. IMPRESSION: 1. No acute process within the chest. 2. Improved aeration within the left lung base suggesting resolving atelectasis. No new focal lung consolidations. 3. Stable mild cardiomegaly. Electronically signed by: Akash Santoyo M.D. 04/22/2017 1:31 PM Dictated Date/Time: 04/22/2017 1:29 PM Laboratory Results 04/22/17 13:32 Red Blood Count 3.14, Mean Corpuscular Volume 100.0, Mean Corpuscular Hemoglobin 34.1, Mean Corpuscular Hemoglobin Concent 34.1, Mean Platelet Volume 9.7, Neutrophils (%) (Auto) 64.1, Lymphocytes (%) (Auto) 25.1, Monocytes (%) ( Auto) 9.4, Eosinophils (%) (Auto) 0.8, Basophils (%) (Auto) 0.4, Neutrophils # ( Auto) 3.06, Lymphocytes # (Auto) 1.20, Monocytes # (Auto) 0.45, Eosinophils # ( Auto) 0.04, Basophils # (Auto) 0.02 04/22/17 13:32 Test 04/22/17 13:32 04/22/17 13:45 White Blood Count 4.78 K/uL (4.8-10.8) Red Blood Count 3.14 M/uL (4.2-5.4) Hemoglobin 10.7 g/dL (12.0-16.0) Hematocrit 31.4 % (37-47) Mean Corpuscular Volume 100.0 fL (80-100) Mean Corpuscular Hemoglobin 34.1 pg (25-34) Mean Corpuscular Hemoglobin Concent 34.1 g/dl (32-36) Platelet Count 189 K/uL (130-400) Mean Platelet Volume 9.7 fL (7.4-10.4) Neutrophils (%) (Auto) 64.1 % Lymphocytes (%) (Auto) 25.1 % Monocytes (%) (Auto) 9.4 % Eosinophils (%) (Auto) 0.8 % Basophils (%) (Auto) 0.4 % Neutrophils # (Auto) 3.06 K/uL (1.4-6.5) Lymphocytes # (Auto) 1.20 K/uL (1.2-3.4) Monocytes # (Auto) 0.45 K/uL (0.11-0.59) Eosinophils # (Auto) 0.04 K/uL (0-0.5) Basophils # (Auto) 0.02 K/uL (0-0.2) RDW Standard Deviation 48.1 fL (36.4-46.3) RDW Coefficient of Variation 13.2 % (11.5-14.5) Immature Granulocyte % (Auto) 0.2 % Immature Granulocyte # (Auto) 0.01 K/uL (0.00-0.02) Prothrombin Time 10.5 SECONDS (9.0-12.0) Prothromb Time International Ratio 1.0 (0.9-1.1) Activated Partial Thromboplast Time 24.3 SECONDS (21.0-31.0) Partial Thromboplastin Ratio 0.9 Anion Gap 7.0 mmol/L (3-11) Est Creatinine Clear Calc Drug Dose 18.5 ml/min Estimated GFR () 29.0 Estimated GFR (Non- 25.0 BUN/Creatinine Ratio 23.3 (10-20) Calcium Level 9.2 mg/dl (8.5-10.1) Magnesium Level 2.7 mg/dl (1.8-2.4) Total Bilirubin 0.4 mg/dl (0.2-1) Direct Bilirubin 0.1 mg/dl (0-0.2) Aspartate Amino Transf (AST/SGOT) 21 U/L (15-37) Alanine Aminotransferase (ALT/SGPT) 27 U/L (12-78) Alkaline Phosphatase 100 U/L (45-117) Total Creatine Kinase 47 U/L (26-192) Creatine Kinase MB 1.1 ng/ml (0.5-3.6) Creatine Kinase MB Ratio 2.3 (0-3.0) Troponin I < 0.015 ng/ml (0-0.045) Total Protein 7.6 gm/dl (6.4-8.2) Albumin 4.0 gm/dl (3.4-5.0) Lipase 346 U/L (73-393) Thyroid Stimulating Hormone (TSH) 1.570 uIu/ml (0.300-4.500) Urine Color YELLOW Urine Appearance CLEAR (CLEAR) Urine pH 7.0 (4.5-7.5) Urine Specific [place] 1.014 (1.000-1.030) Urine Protein 1+ (NEG) Urine Glucose (UA) NEG (NEG) Urine Ketones NEG (NEG) Urine Occult Blood NEG (NEG) Urine Nitrite NEG (NEG) Urine Bilirubin NEG (NEG) Urine Urobilinogen NEG (NEG) Urine Leukocyte Esterase NEG (NEG) Urine WBC (Auto) 1-5 /hpf (0-5) Urine RBC (Auto) 0-4 /hpf (0-4) Urine Hyaline Casts (Auto) 0 /lpf (0-5) Urine Epithelial Cells (Auto) 5-10 /lpf (0-5) Urine Bacteria (Auto) NEG (NEG) Laboratory results as stated above per my review. ECG Indication: other (worsening infection) Rate (beats per minute): 69 Rhythm: sinus rhythm Findings: PVC, no acute ischemic change ED Course 1241: Previous medical records were reviewed. The patient was evaluated in room A10. A complete history and physical examination was performed. Ordered Sodium Chloride 1000 ml @ 500 mls/hr IV. 1439: I reevaluated the patient and she is resting comfortably. I discussed the exam findings with her and I discussed the treatment plan. She verbalized complete understanding and agreement. She is ready to go home. Medical Decision Differentials include: Acute coronary syndrome, myocardial infarction, CVA, TIA , anemia, infection, pneumonia, UTI, pyelonephritis, poor nutrition, dehydration , electrolyte disturbance, and hypoglycemia. . This is an 86-year-old female who presents to the ED with a chief complaint of being referred here for abnormal kidney function tests. The patient has recently been treated for UTI with Cipro. She states that she was sent here because of abnormal kidney function. I did review the laboratory studies from [facility] that were performed 6 days ago. Her creatinine is 2 at that time. Baseline creatinines in our emergency department have been 1.4-2.3. The patient 's physical exam was unremarkable. Her vital signs are normal. A chest x-ray did not show acute disease. Hemoglobin today is 10.7. This is better than her last one. Urine did not show infection. Creatinine today is 1.8. The rest of her electrolytes were unremarkable. The patient was told the results. She was hydrated with IV fluids. She is felt to be stable for discharge. Medication Reconcilliation Current Medication List: was personally reviewed by me Blood Pressure Screening Patient's blood pressure: Elevated blood pressure Blood pressure disposition: Referred to PCP Impression Primary Impression: Chronic renal insufficiency Additional Impression: Weakness Scribe Attestation The scribe's documentation has been prepared under my direction and personally reviewed by me in its entirety. I confirm that the note above accurately reflects all work, treatment, procedures, and medical decision making performed by me. Departure Information Dispostion Home / Self-Care Referrals Yogesh Quevedo III, M.D. (PCP) Forms HOME CARE DOCUMENTATION FORM, IMPORTANT VISIT INFORMATION, WORK / SCHOOL INSTRUCTIONS Patient Instructions My [facility] Additional Instructions Follow-up with your doctor for recheck in 1-2 days. Follow-up with your doctor for further care and evaluation in 1-2 days. Return to the emergency department for worsening or new symptoms or any concerns. You have been examined and treated today on an emergency basis only. This is not a substitute for, or an effort to provide, complete comprehensive medical care. It is impossible to recognize and treat all injuries or illnesses in a single emergency department visit. It is therefore important that you follow up closely with your doctor. Call as soon as possible for an appointment. Problem Qualifiers
[2017-04-22 15:10] VITALS: BP 165/87; PULSE 69; TEMP 36.7; O2SAT 98
--- NOTE | 2017-04-24 11:56 | Pharmacy Progress Note ---
ED Pharmacist Culture FollowUp Date of Service: Apr 24, 2017. Patient was on cipro per PCP prior to ER visit. UA in the ER was not indicative of infection and cath culture grew 6,000 CFU/ml gram positive cocci with no sensitivities to follow. Discussed with Dr. Bennett and no action required at this time. Culture result was also sent to PCP Dr. Yogesh Quevedo's office.
== END 2017-04-22 15:10 | disposition home or self-care (01) ==
LOC: EDBD 12:18 → C.EDA 12:20
DX: N18.4 Chronic kidney disease, stage 4 (severe) (principal); I12.9 Hypertensive chronic kidney disease with stage 1 through stage 4 chronic kidney disease, or unspecified chronic kidney disease; D63.1 Anemia in chronic kidney disease; F41.1 Generalized anxiety disorder; K21.9 Gastro-esophageal reflux disease without esophagitis; E78.5 Hyperlipidemia, unspecified; E03.9 Hypothyroidism, unspecified; F32.9 Major depressive disorder, single episode, unspecified; E22.2 Syndrome of inappropriate secretion of antidiuretic hormone; Z90.49 Acquired absence of other specified parts of digestive tract; Z96.642 Presence of left artificial hip joint; Z82.49 Family history of ischemic heart disease and other diseases of the circulatory system; Z87.891 Personal history of nicotine dependence; Z79.82 Long term (current) use of aspirin; Z79.899 Other long term (current) drug therapy

== ENCOUNTER 2017-05-02 08:54 | Emergency (ER) | payer OTHER ==
[~2017-05-02 08:54] MED LIST changes: -EPGI10M SC
[2017-05-02 09:00] VITALS: TEMP 36.4; Ht 149.9 cm
[2017-05-02 09:41] LABS: HEMATOCRIT 29.1 % (37-47); MEAN CELL VOLUME 100.3 fL (80-100); MEAN CORPUSCULAR HEMOGLOBIN 35.5 pg (25-34); MEAN CORPUSCULAR HGB CONC 35.4 g/dl (32-36); MEAN PLATELET VOLUME 10.4 fL (7.4-10.4); PLATELET COUNT 137 K/uL (130-400); WHITE BLOOD COUNT 3.69 K/uL (4.8-10.8)
[2017-05-02 09:47] LABS: MANUAL MICROSCOPIC REQUIRED? NO; REVIEW REQ? NO; URINE APPEARANCE CLEAR (CLEAR); URINE BILIRUBIN NEG (NEG); URINE COLOR YELLOW; URINE EPITHELIAL CELL AUTO 0-5 /lpf (0-5); URINE NITRITE NEG (NEG); URINE SPECIFIC GRAVITY 1.015 (1.000-1.030); UROBILINOGEN NEG (NEG); ZZURINE CULT IF INDIC CATH NO
[2017-05-02 09:59] LABS: ALT/SGPT 59 U/L (12-78); AST/SGOT 47 U/L (15-37); BLOOD UREA NITROGEN 34 mg/dl (7-18); BUN/CREATININE RATIO 21.3 (10-20); CALCIUM 9.2 mg/dl (8.5-10.1); CARBON DIOXIDE 34 mmol/L (21-32); CHLORIDE 96 mmol/L (98-107); GLUCOSE 97 mg/dl (70-99); POTASSIUM 3.8 mmol/L (3.5-5.1); SODIUM 131 mmol/L (136-145)
[2017-05-02 10:02] LABS: ALKALINE PHOSPHATASE 88 U/L (45-117)
[2017-05-02 10:07] LABS: BASO % 0.8 %; BASO ABS # 0.03 K/uL (0-0.2); COMPLETE YES; EOS % 1.1 %; IG% 0.3 %; LYMPH % 53.9 %; LYMPH ABS # 1.99 K/uL (1.2-3.4); MONO % 10.8 %; NEUT % 33.1 %
[2017-05-02] MEDS ORDERED: OPTIRAY 320 IV PRN ×2 (10:15)
--- NOTE | 2017-05-02 11:12 | DIAGNOSTIC IMAGING REPORT ---
ABDOMEN AND PELVIS CT WITH IV CONTRAST CT DOSE: 247.12 mGy.cm HISTORY: Lower abdominal pain. TECHNIQUE: Multiaxial CT images of the abdomen and pelvis were performed following the use of intravenous contrast. A dose lowering technique was utilized adhering to the principles of ALARA. COMPARISON STUDY: Abdomen and pelvis CT 04/07/2017. FINDINGS: The ascending thoracic aorta measures up to 4 cm in diameter. Bibasilar densities favor subsegmental atelectasis. No pneumoperitoneum. No pneumatosis. Left total hip arthroplasty. Cholecystectomy. The liver, spleen, adrenal glands, and pancreas are unremarkable. Bilateral cortical renal scarring is again noted. Bilateral renal hypodense lesions remain stable. These likely represent cysts. No hydronephrosis. No retroperitoneal lymphadenopathy. Small fluid collection within the subcutaneous fat of the right lateral hip has decreased in size. Normal bladder. No bowel wall thickening or obstruction. Sigmoid diverticulosis. IMPRESSION: 1. No definite bowel wall thickening or obstruction. 2. Cholecystectomy. 3. Sigmoid diverticulosis. 4. Additional stable findings as described above. Electronically signed by: Akash Santoyo M.D. 05/02/2017 11:11 AM Dictated Date/Time: 05/02/2017 11:05 AM
[2017-05-02 11:49] VITALS: BP 196/57; PULSE 86; O2SAT 96
--- NOTE | 2017-05-02 14:31 | EMERGENCY ROOM VISIT NOTE ---
History Report prepared by Unique: Nusrat Everett Under the Supervision of: Yolanda BurlesonO. First contact with patient: 09:10 Chief Complaint: URINARY SYMPTOMS Stated Complaint: PAIN IN BLADDER - TROUBLE URINATING History of Present Illness The patient is an 86 year old female who presents to the Emergency Room with complaints of persistent difficulty voiding since last evening. She currently rates her discomfort as a 10/10 in severity. The patient states that she last voided last evening. Nursing staff reports that the patient had 100 mL of urine in her bladder according to bladder scanner. The patient's daughter states that the patient just finished Cipro for a recent bladder infection. The patient reports lower abdominal pain and back pain today. She reports a history of an appendectomy and cholecystectomy. Pt denies headache, change in vision, fevers, chest pain, shortness of breath, nausea, vomiting, diarrhea, pain with urination, and melena. The patient was last evaluated in the emergency department on April 22, complaining of bladder pain Source of History: patient, family (daughter), nursing staff Onset: last evening Position: other (global) Symptom Intensity: 10/10 Quality: other (difficulty voiding) Timing: other (persistent) Associated Symptoms: + abdominal pain, + back pain Review of Systems See HPI for pertinent positives & negatives. A total of 10 systems reviewed and were otherwise negative. Past Medical & Surgical Medical Problems: (1) Anemia, chronic disease (2) Anxiety (3) Chest pain (4) CKD (chronic kidney disease), stage IV (5) Dizziness (6) FRANCES (generalized anxiety disorder) (7) GERD (gastroesophageal reflux disease) (8) H/O echocardiogram (9) HLD (hyperlipidemia) (10) HTN (hypertension) (11) Hypothyroidism (12) Major depressive disorder, recurrent, moderate (13) Palpitations (14) SIADH (syndrome of inappropriate ADH production) Surgical Problems: (1) Hx of appendectomy (2) Hx of cholecystectomy (3) Hx of dilation and curettage (4) Status post total hip replacement, left Family History FHx: heart disease Hypertension Social History Smoking Status: Never Smoker Alcohol Use: none Drug Use: none Marital Status: Housing Status: lives with family Occupation Status: retired Current/Historical Medications Scheduled Aspirin (Aspirin Ec), 81 MG PO DAILY Atorvastatin (Lipitor), 10 MG PO HS Bumetanide (Bumex), 0.5 MG PO QAM Buspirone HCl (Buspirone HCl), 5 MG PO DAILY Docusate Sodium (Colace), 100 MG PO BID Ferrous Sulfate (Ferrous Sulfate), 325 MG PO BID Levothyroxine Sodium (Synthroid), 88 MCG PO DAILY Magnesium Oxide (Mag-Ox), 400 MG PO BID Metoprolol Tartrate (Lopressor) (Lopressor), 12.5 MG PO BID Mirtazapine (Remeron), 15 MG PO HS Nifedipine (Nifedipine Er), 30 MG PO DAILY Pantoprazole (Protonix), 40 MG PO DAILY Ranitidine (Zantac), 150 MG PO DAILY Scheduled PRN Lorazepam (Ativan), 1 MG PO Q6 PRN for Anxiety Allergies Coded Allergies: Penicillins (Verified Allergy, Intermediate, HIVES, 05/02/17) Iron Sucrose (Verified Adverse Reaction, Mild, n&v, abd pain, 05/02/17) Physical Exam Vital Signs Date Time Temp Pulse Resp B/P (MAP) Pulse Ox O2 Delivery O2 Flow Rate FiO2 05/02/17 11:49 86 16 196/57 96 Room Air 05/02/17 10:09 56 18 163/81 98 Room Air 05/02/17 09:00 36.4 72 17 193/58 95 Room Air Physical Exam GENERAL: alert, disheveled, sitting up in bed, chronically ill appearing, malnourished, opens eyes to voice, no distress, non-toxic EYE EXAM: normal conjunctiva. OROPHARYNX: no exudate, no erythema, lips, buccal mucosa, and tongue normal and mucous membranes are moist NECK: supple, no nuchal rigidity, no adenopathy, non-tender LUNGS: Clear to auscultation. Normal chest wall mechanics HEART: no murmurs, S1 normal and S2 normal ABDOMEN: abdomen soft, minimal tenderness in suprapubic region, normo-active bowel sounds, no masses, no rebound or guarding. BACK: Back is symmetrical on inspection and there is no deformity, no midline tenderness, no CVA tenderness. SKIN: no rashes and no bruising UPPER EXTREMITIES: upper extremities are grossly normal. LOWER EXTREMITIES: No pitting edema. NEURO EXAM: Awake, alert, oriented to person, place, but not year, cranial nerves II-XII intact, normal speech, no weakness of arms, no weakness of legs. Medical Decision & Procedures ER Provider Diagnostic Interpretation: CT:Per my review, radiologist interpretation. ABDOMEN AND PELVIS CT WITH IV CONTRAST CT DOSE: 247.12 mGy.cm HISTORY: Lower abdominal pain. TECHNIQUE: Multiaxial CT images of the abdomen and pelvis were performed following the use of intravenous contrast. A dose lowering technique was utilized adhering to the principles of ALARA. COMPARISON STUDY: Abdomen and pelvis CT 04/07/2017. FINDINGS: The ascending thoracic aorta measures up to 4 cm in diameter. Bibasilar densities favor subsegmental atelectasis. No pneumoperitoneum. No pneumatosis. Left total hip arthroplasty. Cholecystectomy. The liver, spleen, adrenal glands, and pancreas are unremarkable. Bilateral cortical renal scarring is again noted. Bilateral renal hypodense lesions remain stable. These likely represent cysts. No hydronephrosis. No retroperitoneal lymphadenopathy. Small fluid collection within the subcutaneous fat of the right lateral hip has decreased in size. Normal bladder. No bowel wall thickening or obstruction. Sigmoid diverticulosis. IMPRESSION: 1. No definite bowel wall thickening or obstruction. 2. Cholecystectomy. 3. Sigmoid diverticulosis. 4. Additional stable findings as described above. Electronically signed by: Akash Santoyo M.D. 05/02/2017 11:11 AM Dictated Date/Time: 05/02/2017 11:05 AM Laboratory Results 05/02/17 09:20 Red Blood Count 2.90, Mean Corpuscular Volume 100.3, Mean Corpuscular Hemoglobin 35.5, Mean Corpuscular Hemoglobin Concent 35.4, Mean Platelet Volume 10.4, Neutrophils (%) (Auto) 33.1, Lymphocytes (%) (Auto) 53.9, Monocytes (%) ( Auto) 10.8, Eosinophils (%) (Auto) 1.1, Basophils (%) (Auto) 0.8, Neutrophils # (Auto) 1.22, Lymphocytes # (Auto) 1.99, Monocytes # (Auto) 0.40, Eosinophils # ( Auto) 0.04, Basophils # (Auto) 0.03 05/02/17 09:20 Test 05/02/17 09:20 05/02/17 09:26 White Blood Count 3.69 K/uL (4.8-10.8) Red Blood Count 2.90 M/uL (4.2-5.4) Hemoglobin 10.3 g/dL (12.0-16.0) Hematocrit 29.1 % (37-47) Mean Corpuscular Volume 100.3 fL (80-100) Mean Corpuscular Hemoglobin 35.5 pg (25-34) Mean Corpuscular Hemoglobin Concent 35.4 g/dl (32-36) Platelet Count 137 K/uL (130-400) Mean Platelet Volume 10.4 fL (7.4-10.4) Neutrophils (%) (Auto) 33.1 % Lymphocytes (%) (Auto) 53.9 % Monocytes (%) (Auto) 10.8 % Eosinophils (%) (Auto) 1.1 % Basophils (%) (Auto) 0.8 % Neutrophils # (Auto) 1.22 K/uL (1.4-6.5) Lymphocytes # (Auto) 1.99 K/uL (1.2-3.4) Monocytes # (Auto) 0.40 K/uL (0.11-0.59) Eosinophils # (Auto) 0.04 K/uL (0-0.5) Basophils # (Auto) 0.03 K/uL (0-0.2) RDW Standard Deviation 48.7 fL (36.4-46.3) RDW Coefficient of Variation 13.3 % (11.5-14.5) Immature Granulocyte % (Auto) 0.3 % Immature Granulocyte # (Auto) 0.01 K/uL (0.00-0.02) Red Blood Cell Morphology Unremarkable Anion Gap 1.0 mmol/L (3-11) Estimated GFR () 33.5 Estimated GFR (Non- 28.9 BUN/Creatinine Ratio 21.3 (10-20) Calcium Level 9.2 mg/dl (8.5-10.1) Total Bilirubin 0.5 mg/dl (0.2-1) Direct Bilirubin 0.1 mg/dl (0-0.2) Aspartate Amino Transf (AST/SGOT) 47 U/L (15-37) Alanine Aminotransferase (ALT/SGPT) 59 U/L (12-78) Alkaline Phosphatase 88 U/L (45-117) Total Protein 6.8 gm/dl (6.4-8.2) Albumin 3.8 gm/dl (3.4-5.0) Lipase 219 U/L (73-393) Urine Color YELLOW Urine Appearance CLEAR (CLEAR) Urine pH 7.0 (4.5-7.5) Urine Specific [place] 1.015 (1.000-1.030) Urine Protein 1+ (NEG) Urine Glucose (UA) NEG (NEG) Urine Ketones NEG (NEG) Urine Occult Blood NEG (NEG) Urine Nitrite NEG (NEG) Urine Bilirubin NEG (NEG) Urine Urobilinogen NEG (NEG) Urine Leukocyte Esterase NEG (NEG) Urine WBC (Auto) 0 /hpf (0-5) Urine RBC (Auto) 0-4 /hpf (0-4) Urine Hyaline Casts (Auto) 1-5 /lpf (0-5) Urine Epithelial Cells (Auto) 0-5 /lpf (0-5) Urine Bacteria (Auto) NEG (NEG) Laboratory results per my review. ED Course ED COURSE: Vital signs were reviewed and showed hypertensive The patients medical record was reviewed The above diagnostic studies were performed and reviewed. ED treatments and interventions as stated above. 0928: The patient was evaluated in room B9. A complete history and physical examination was performed. 1127: Upon reevaluation, the patient is resting comfortably.I discussed my findings with the patient and she understands and agrees with the treatment plan. Based on the patients age, coexisting illnesses, exam and lab findings the decision to treat as an outpatient was made. The patient remained stable while under my care. The patient appeared well at the time of discharge. Medical Decision Differential diagnoses includes but is not limited to gastritis, peptic ulcer disease, GERD, gallbladder disease, pancreatitis, small bowel obstruction, acute coronary syndrome, pericarditis, ischemic bowel, irritable bowel disease, irritable bowel syndrome, appendicitis, diverticulitis, malignancy, hernia, urinary tract infection, torsion, perforation, trauma, infectious. Patient is an 86-year-old female that presents to the ER complaining that she cannot urinate and lower abdominal pain. Recently treated for UTI. Bladder scan shows less than 200mls. Straight cath showed around the 150 mils. UA was clean. CBC shows no significant leukocytosis. Mild anemia. Creatinine is improving. Sodium is improving as well. Bilirubin all LFTs and lipase normal. CT of the abdomen and pelvis shows no acute pathology. Patient and daughter was updated at bedside and was discharged to follow-up with PCP. Discussed with Pt concerning signs and symptoms to watch out for. Pt was instructed to follow up with their PCP and discussed with the patient their option to return to the ED at anytime for persistent or worsening symptoms. The appropriate anticipatory guidance and out-patient management, including indications for return to the emergency department, were explained at length to the patient and understood. Medication Reconcilliation Current Medication List: was personally reviewed by me Blood Pressure Screening Patient's blood pressure: Elevated blood pressure Blood pressure disposition: Elevated BP felt to be situational, Did not require urgent referral Impression Primary Impression: Symptoms involving urinary system Additional Impressions: Anemia CKD (chronic kidney disease), stage IV Scribe Attestation The scribe's documentation has been prepared under my direction and personally reviewed by me in its entirety. I confirm that the note above accurately reflects all work, treatment, procedures, and medical decision making performed by me. Departure Information Dispostion Home / Self-Care Referrals Yogesh Quevedo III, M.D. (PCP) Forms HOME CARE DOCUMENTATION FORM, IMPORTANT VISIT INFORMATION Patient Instructions ED Retention Urinary Female, My [facility] Additional Instructions Please follow up with your primary care doctor or if you are a student, [facility] with in the next 24 hours. Any worsening of your symptoms, please return to the ED immediately. This includes any fevers greater than 100.4, worsening pain, chest pain, shortness breath, persistent nausea, vomiting, unable to eat or drink, or any other concerning signs or symptoms from your standpoint. Bladder scan and catheterization showed that the amount of urine that you had in your bladder was too small to cause you or give you the urge to urinate. You were found to have a blood pressure greater than 120 systolic over 90 diastolic. Due to the new Medicare guidelines, we are now recommending that you follow up with your primary care doctor in regards to this elevated blood pressure. Problem Qualifiers Additional Impressions: Anemia Anemia type: unspecified type Qualified Codes: D64.9 - Anemia, unspecified
== END 2017-05-02 11:51 | disposition home or self-care (01) ==
LOC: C.EDB 08:55
DX: R39.9 Unspecified symptoms and signs involving the genitourinary system (principal); D64.9 Anemia, unspecified; N18.4 Chronic kidney disease, stage 4 (severe); I12.9 Hypertensive chronic kidney disease with stage 1 through stage 4 chronic kidney disease, or unspecified chronic kidney disease; F33.1 Major depressive disorder, recurrent, moderate; E78.5 Hyperlipidemia, unspecified; E03.9 Hypothyroidism, unspecified; K21.9 Gastro-esophageal reflux disease without esophagitis; F41.9 Anxiety disorder, unspecified; Z96.642 Presence of left artificial hip joint; Z87.440 Personal history of urinary (tract) infections; Z90.49 Acquired absence of other specified parts of digestive tract; Z90.89 Acquired absence of other organs; Z98.890 Other specified postprocedural states; Z82.49 Family history of ischemic heart disease and other diseases of the circulatory system; Z79.82 Long term (current) use of aspirin; Z79.899 Other long term (current) drug therapy

== ENCOUNTER 2017-05-17 04:09 | Inpatient (IN) | payer OTHER ==
[~2017-05-17] VITALS: Ht 152.4 cm; Wt 48.0 kg
[2017-05-17] MEDS ORDERED: SODIUM CHLORIDE 0.9% 500ML 500 ML IV STA (04:29)
--- NOTE | 2017-05-17 04:32 | EMERGENCY ROOM VISIT NOTE ---
History Report prepared by Unique: Heather Polk Under the Supervision of: Dr. Preston Palomino M.D. First contact with patient: 04:16 Chief Complaint: DIZZY Stated Complaint: DIZZY History of Present Illness The patient is an 86 year old female who presents to the Emergency Room with complaints of persistent lightheadedness starting last evening. She thinks that her "blood level" is low which she has had before. She is SOB. She denies any fall or head injury. She was able to get out of the car. She did not seem to be stumbling. She is unsure if she has chest pain. The room does not seem to be spinning. She has been at baseline at home. She sometimes does not eat a lot. She has a history of UTIs. Source of History: patient, family Onset: last evening Position: other (global) Quality: other (lightheadedness) Timing: other (persistent) Associated Symptoms: + SOB, No headache Review of Systems See HPI for pertinent positives & negatives. A total of 10 systems reviewed and were otherwise negative. Past Medical & Surgical Medical Problems: (1) Anemia, chronic disease (2) Anxiety (3) Chest pain (4) CKD (chronic kidney disease), stage IV (5) Dizziness (6) FRANCES (generalized anxiety disorder) (7) GERD (gastroesophageal reflux disease) (8) H/O echocardiogram (9) HLD (hyperlipidemia) (10) HTN (hypertension) (11) Hypothyroidism (12) Major depressive disorder, recurrent, moderate (13) Palpitations (14) SIADH (syndrome of inappropriate ADH production) Surgical Problems: (1) Hx of appendectomy (2) Hx of cholecystectomy (3) Hx of dilation and curettage (4) Status post total hip replacement, left Family History FHx: heart disease Hypertension Social History Smoking Status: Never Smoker Alcohol Use: none Drug Use: none Marital Status: Housing Status: lives with family Occupation Status: retired Current/Historical Medications Scheduled Aspirin (Aspirin Ec), 81 MG PO DAILY Atorvastatin (Lipitor), 10 MG PO HS Bumetanide (Bumex), 0.5 MG PO QAM Buspirone HCl (Buspirone HCl), 5 MG PO DAILY Docusate Sodium (Docusate Sodium), 100 MG PO BID Ferrous Sulfate (Ferrous Sulfate), 325 MG PO BID Levothyroxine Sodium (Synthroid), 88 MCG PO DAILY Magnesium Oxide (Mag-Ox), 400 MG PO QAM Metoprolol Tartrate (Lopressor) (Lopressor), 12.5 MG PO BID Mirtazapine (Remeron), 15 MG PO HS Nifedipine (Nifedipine Er), 30 MG PO DAILY Pantoprazole (Protonix), 40 MG PO DAILY Ranitidine (Zantac), 150 MG PO DAILY Scheduled PRN Lorazepam (Ativan), 1 MG PO Q6 PRN for Anxiety Allergies Coded Allergies: Penicillins (Verified Allergy, Intermediate, HIVES, 05/17/17) Iron Sucrose (Verified Adverse Reaction, Mild, n&v, abd pain, 05/17/17) Physical Exam Vital Signs Date Time Temp Pulse Resp B/P (MAP) Pulse Ox O2 Delivery O2 Flow Rate FiO2 05/17/17 05:31 72 20 103/48 96 Room Air 05/17/17 05:17 68 20 172/50 98 Room Air 05/17/17 04:12 36.7 74 20 154/51 97 Room Air Physical Exam GENERAL: Patient is depressed appearing and in minimal distress. Anxious appearing, elderly, frail. HEENT: No acute trauma, normocephalic atraumatic, mucous membranes moist, no nasal congestion, no scleral icterus. NECK: No stridor, no adenopathy, no meningismus, trachea is midline. LUNGS: No dyspnea. Clear to auscultation and equal bilaterally. No wheeze, no rhonchi. HEART: Regular rate and rhythm. No murmurs, rubs, gallops appreciated. ABDOMEN: Soft, nontender, bowel sounds positive, no masses appreciated, no peritonitis. BACK: No midline tenderness, no CVA tenderness EXTREMITIES: Normal motion all extremities, no cyanosis, no edema. NEUROLOGIC: Alert and oriented, no acute motor or sensory deficits, no focal weakness, cranial nerves grossly intact. SKIN: No rash, no jaundice, no diaphoresis. Medical Decision & Procedures ER Provider Diagnostic Interpretation: X ray results are stated below per my interpretation: Chest: 1 view, portable: No infiltrate, no effusion, chronic lung disease, scoliosis. Chest x-ray similar to previous chest X-ray. Radiology results and stated below per my review and [facility] radiologist interpretation: CT Head: Comparison: 02/01/2017 No evidence of acute infarct, hemorrhage, mass, or edema. Chronic small vessel ischemic disease and senescent changes. No acute osseous abnormality. Laboratory Results 05/17/17 04:25 Red Blood Count 2.93, Mean Corpuscular Volume 99.0, Mean Corpuscular Hemoglobin 34.5, Mean Corpuscular Hemoglobin Concent 34.8, Mean Platelet Volume 10.1, Neutrophils (%) (Auto) 51.8, Lymphocytes (%) (Auto) 37.8, Monocytes (%) (Auto) 8.8, Eosinophils (%) (Auto) 0.8, Basophils (%) (Auto) 0.6, Neutrophils # (Auto) 2.59, Lymphocytes # (Auto) 1.89, Monocytes # (Auto) 0.44, Eosinophils # (Auto) 0.04, Basophils # (Auto) 0.03 05/17/17 04:25 Test 05/17/17 04:25 White Blood Count 5.00 K/uL (4.8-10.8) Red Blood Count 2.93 M/uL (4.2-5.4) Hemoglobin 10.1 g/dL (12.0-16.0) Hematocrit 29.0 % (37-47) Mean Corpuscular Volume 99.0 fL (80-100) Mean Corpuscular Hemoglobin 34.5 pg (25-34) Mean Corpuscular Hemoglobin Concent 34.8 g/dl (32-36) Platelet Count 149 K/uL (130-400) Mean Platelet Volume 10.1 fL (7.4-10.4) Neutrophils (%) (Auto) 51.8 % Lymphocytes (%) (Auto) 37.8 % Monocytes (%) (Auto) 8.8 % Eosinophils (%) (Auto) 0.8 % Basophils (%) (Auto) 0.6 % Neutrophils # (Auto) 2.59 K/uL (1.4-6.5) Lymphocytes # (Auto) 1.89 K/uL (1.2-3.4) Monocytes # (Auto) 0.44 K/uL (0.11-0.59) Eosinophils # (Auto) 0.04 K/uL (0-0.5) Basophils # (Auto) 0.03 K/uL (0-0.2) RDW Standard Deviation 46.9 fL (36.4-46.3) RDW Coefficient of Variation 13.0 % (11.5-14.5) Immature Granulocyte % (Auto) 0.2 % Immature Granulocyte # (Auto) 0.01 K/uL (0.00-0.02) Urine Color YELLOW Urine Appearance CLEAR (CLEAR) Urine pH 6.5 (4.5-7.5) Urine Specific [place] <= 1.005 (1.000-1.030) Urine Protein TRACE (NEG) Urine Glucose (UA) NEG (NEG) Urine Ketones NEG (NEG) Urine Occult Blood NEG (NEG) Urine Nitrite NEG (NEG) Urine Bilirubin NEG (NEG) Urine Urobilinogen NEG (NEG) Urine Leukocyte Esterase NEG (NEG) Urine RBC 0-4 /hpf (0-4) Urine WBC 1-5 /hpf (0-5) Urine Epithelial Cells 0-5 /lpf (0-5) Urine Bacteria 1+ (NEG) Anion Gap 9.0 mmol/L (3-11) Estimated GFR () 27.2 Estimated GFR (Non- 23.5 BUN/Creatinine Ratio 24.2 (10-20) Calcium Level 9.0 mg/dl (8.5-10.1) Phosphorus Level 3.1 mg/dl (2.5-4.9) Magnesium Level 2.6 mg/dl (1.8-2.4) Total Bilirubin 0.3 mg/dl (0.2-1) Direct Bilirubin 0.1 mg/dl (0-0.2) Aspartate Amino Transf (AST/SGOT) 18 U/L (15-37) Alanine Aminotransferase (ALT/SGPT) 26 U/L (12-78) Alkaline Phosphatase 108 U/L (45-117) Troponin I 0.016 ng/ml (0-0.045) Total Protein 6.8 gm/dl (6.4-8.2) Albumin 3.5 gm/dl (3.4-5.0) Lipase 305 U/L (73-393) Laboratory results as reviewed by me. Medications Administered Medications (Trade) Dose Ordered Sig/Jassi Route Start Time Stop Time Status Last Admin Dose Admin Sodium Chloride 500 ml @ 999 mls/hr Q31M STAT IV 05/17/17 04:29 05/17/17 04:59 DC 05/17/17 04:32 999 MLS/HR Nitroglycerin (Nitrostat Tab) 0.4 mg PRN STAT SL 05/17/17 05:20 05/17/17 05:22 DC 05/17/17 05:26 0.4 MG Aspirin (Aspirin Chew) 324 mg NOW STAT PO 05/17/17 05:20 05/17/17 05:22 DC 05/17/17 05:24 324 MG ECG Indication: other (dizziness) Rate (beats per minute): 72 Rhythm: sinus rhythm Findings: 1st degree AV block, nonspecific-ST abn, PVC (multiple), no acute ischemic change Comparison ECG Date: 22-Apr-2017 Change: no significant change ED Course 0418: The patient was evaluated in room A3. A complete history and physical exam was performed. 0429: NSS 500 ml @ 999 mls/hr IV. 0515: I reevaluated the patient. She is now complaining of chest pain. Repeat EKG was similar to previous. I discussed results and treatment plan with the patient. She verbalized understanding and agreement with the treatment plan. The patient will be evaluated for further management. 0520: Aspirin 324 mg PO, Nitroglycerin 0.4 mg SL. 0523: I discussed the patient's case with Dr. Walsh, Ross[place] hospitalist. The patient will be evaluated for further treatment and disposition. Medical Decision Differential diagnoses include Benign positional vertigo, Dehydration, Hypovolemia, Anemia, Tumor, Infection, Hypoglycemia, Electrolyte abnormalities, Cardiac sources, Intracerebral event, Toxicologic, Neurologic, anxiety/ depression, as well as others were entertained. 86 yr old very depressed female with frequent visits to ED for variety of complaints, including dizziness which initially brought her in today. She has fairly positive ROS as is usual. Exam benign for her other than maybe a bit on dehydrated side for which NSS bolus given. When discussing options she ntoed developing "pain in her heart" which repeat EKG is unchanged. Trop has been wnl. CT head negative. CXR unchanged. Labs otherwise consistent with her normal anemia and hyponatremia as stable renal insufficiency. Given symptoms she would like to come in which for cardiac rule out seems reasonable. She does not have findings of stroke, dissection, PE, on exam/story. Medication Reconcilliation Current Medication List: was personally reviewed by me Blood Pressure Screening Patient's blood pressure: Elevated blood pressure Will be monitored by hospitalist. Consults Time Called: [phone] Consulting Physician: Rossana Marin hospitalist Returned Call: [phone] Discussed the patient's case. The patient will be evaluated for further treatment and disposition. Impression Primary Impression: Anxiety Additional Impressions: Depression Chest pain Generalized weakness Dehydration Failure to thrive Scribe Attestation The scribe's documentation has been prepared under my direction and personally reviewed by me in its entirety. I confirm that the note above accurately reflects all work, treatment, procedures, and medical decision making performed by me. Departure Information Dispostion Being Evaluated By Hospitalist Referrals Yogesh Quevedo III, M.D. (PCP) Patient Instructions My [facility] Problem Qualifiers
[2017-05-17 04:45] LABS: BASO % 0.6 %; BASO ABS # 0.03 K/uL (0-0.2); COMPLETE YES; EOS % 0.8 %; IG% 0.2 %; LYMPH % 37.8 %; LYMPH ABS # 1.89 K/uL (1.2-3.4); MEAN CORPUSCULAR HEMOGLOBIN 34.5 pg (25-34); MEAN CORPUSCULAR HGB CONC 34.8 g/dl (32-36); MEAN PLATELET VOLUME 10.1 fL (7.4-10.4); MONO % 8.8 %; NEUT % 51.8 %; PLATELET COUNT 149 K/uL (130-400); RED BLOOD COUNT 2.93 M/uL (4.2-5.4)
[2017-05-17 04:47] LABS: MANUAL MICROSCOPIC REQUIRED? YES; URINE APPEARANCE CLEAR (CLEAR); URINE BILIRUBIN NEG (NEG); URINE COLOR YELLOW; URINE NITRITE NEG (NEG); URINE PH 6.5 (4.5-7.5); URINE SPECIFIC GRAVITY <= 1.005 (1.000-1.030); UROBILINOGEN NEG (NEG)
[2017-05-17] MEDS ORDERED: DOCU100C31 PO (04:48)
[2017-05-17 04:51] LABS: REVIEW REQ? NO
[2017-05-17 05:01] LABS: URINE RBC 0-4 /hpf (0-4)
[2017-05-17 05:02] LABS: ALT/SGPT 26 U/L (12-78); AST/SGOT 18 U/L (15-37); BLOOD UREA NITROGEN 46 mg/dl (7-18); BUN/CREATININE RATIO 24.2 (10-20); CARBON DIOXIDE 27 mmol/L (21-32); CHLORIDE 92 mmol/L (98-107); GLUCOSE 90 mg/dl (70-99); MAGNESIUM 2.6 mg/dl (1.8-2.4); POTASSIUM 3.8 mmol/L (3.5-5.1); SODIUM 128 mmol/L (136-145); URINE BACTERIA 1+ (NEG); ZZURINE CULT IF INDIC CATH YES
[2017-05-17 05:05] LABS: ALKALINE PHOSPHATASE 108 U/L (45-117); PHOSPHORUS 3.1 mg/dl (2.5-4.9)
[2017-05-17] MEDS ORDERED: NITROGLYCERIN 0.4 MG SL PER TAB CHARGE SL STA (05:20)
[2017-05-17] MEDS ORDERED: ASPIRIN 324 MG CHEW PO STA (05:20)
[2017-05-17] MEDS ORDERED: POLYETHYLENE (MIRALAX) 17 GM PACK PO PRN (05:30)
[2017-05-17] MEDS ORDERED: MoRPHine SULFATE 2 MG/ML CARP IV PRN (05:30)
[2017-05-17] MEDS ORDERED: NITROGLYCERIN 0.4 MG SL PER TAB CHARGE SL PRN (05:30)
[2017-05-17] MEDS ORDERED: ONDANSETRON INJ 2 MG/ML 2 ML VIAL IV PRN (05:30)
--- NOTE | 2017-05-17 06:50 | DIAGNOSTIC IMAGING REPORT ---
CHEST ONE VIEW PORTABLE CLINICAL HISTORY: 86 years-old Female presenting with Generalized Weakness. TECHNIQUE: Portable upright AP view of the chest was obtained. COMPARISON: 04/22/2017. FINDINGS: Atherosclerosis of the aortic arch. Prominent calcification of the ascending aorta along the right heart border. Cardiac silhouette mildly enlarged, unchanged. No focal infiltrate. No large effusion or pneumothorax. Degenerative changes of the thoracic spine. Scoliotic curvature of the thoracic spine. Upper abdomen normal. IMPRESSION: 1. No acute cardiopulmonary disease. 2. Mild cardiomegaly, unchanged. Electronically signed by: Thiago Washington M.D. 05/17/2017 6:48 AM Dictated Date/Time: 05/17/2017 6:45 AM
--- NOTE | 2017-05-17 06:59 | DIAGNOSTIC IMAGING REPORT ---
HEAD WITHOUT CONTRAST (CT) CLINICAL HISTORY: 86 years-old Female presenting with Generalized Weakness, dizziness. TECHNIQUE: Multidetector CT imaging of the head was performed without the use of intravenous contrast. IV contrast: None. A dose lowering technique was used consistent with the principles of ALARA (as low as reasonably achievable). COMPARISON: 02/01/2017. CT DOSE (mGy.cm): The estimated cumulative dose is 537.48 mGy.cm. FINDINGS: Piece Hand topogram: Unremarkable. Proportional ventricular and sulcal prominence, likely age-related parenchymal volume loss. Periventricular and subcortical white matter hypoattenuation, nonspecific but likely indicative of chronic small vessel ischemic change. No mass effect or midline shift. No hemorrhage or acute territorial infarct. No extra-axial fluid collection. Paranasal sinuses and mastoid air cells clear. Calvarium intact. IMPRESSION: 1. No acute intracranial pathology. Electronically signed by: Thiago Washington M.D. 05/17/2017 6:57 AM Dictated Date/Time: 05/17/2017 6:55 AM
[2017-05-17 07:01] VITALS: BP 172/80; PULSE 62; TEMP 36.4; O2SAT 100; Ht 152.4 cm; Wt 48.0 kg
--- NOTE | 2017-05-17 07:01 | History and Physical ---
History & Physical Date & Time of Service: May 17, 2017 at 06:45 Chief Complaint: DIZZY Primary Care Physician: Yogesh Quevedo III, M.D. History of Present Illness Source: patient, family, clinic records, hospital records 86 yo F with severe anxiety presents to the ER with reports of dizziness. She woke up dizzy/lightheaded and cannot tell me much else. She was reporting chest pain to the ER physician which was the reason for admission, and she was given some nitro and now has no pain. She cannot describe the chest pain to me or tell me much else regarding history of any chest pain recently as she is so focused on saying how her kidneys are not going to work, she won't be able to make water and she is going to . Much of the conversation was this back and forth with her daughter at the bedside telling her that no, she wasn't going to . When I asked about how her anxiety medications are working, the daughter states not well at all. She is currently on Buspar 5mg daily and PRN Lorazepam which she does not take much at all. I inquired further into the patient's ability to urinate recently which appeared to be normal prior to sleep last night. She also denies any dysuria, hematuria, flank pain, fevers, chills, urinary urgency or incontinence. Her daughter says she has a tendency to have UTIs. ROS is otherwise negative. The patient appears to be fixated on the fact that her kidneys "are not going to make water" and "I'm going to ." Past Medical/Surgical History Medical Problems: (1) Anemia, chronic disease Status: Chronic (2) Anxiety Status: Chronic (3) CKD (chronic kidney disease), stage IV Status: Chronic (4) FRANCES (generalized anxiety disorder) Status: Chronic (5) GERD (gastroesophageal reflux disease) Status: Chronic (6) H/O echocardiogram Permanent Comment: 03/2015 - EF 60-65%, moderate to severe aortic regurgitation Status: Chronic (7) HLD (hyperlipidemia) Status: Chronic (8) HTN (hypertension) Status: Chronic (9) Hypothyroidism Status: Chronic (10) Major depressive disorder, recurrent, moderate Status: Chronic (11) Palpitations Status: Chronic (12) SIADH (syndrome of inappropriate ADH production) Status: Chronic Surgical Problems: (1) Hx of appendectomy Status: Chronic (2) Hx of cholecystectomy Status: Chronic (3) Hx of dilation and curettage Status: Chronic (4) Status post total hip replacement, left Status: Chronic Family History FHx: heart disease Hypertension Social History Smoking Status: Never Smoker Smokeless Tobacco Use: No Alcohol Use: none Drug Use: none Marital Status: Housing status: lives with family Occupational Status: retired Immunizations History of Influenza Vaccine: Yes Influenza Vaccine Date: Apr 24, 2016 History of Tetanus Vaccine?: Yes Tetanus Immunization Date: Oct 05, 2007 History of Pneumococcal: Yes Pneumococcal Date: Apr 24, 2016 History of Hepatitis B Vaccine: No Multi-Drug Resistant Organisms History of MDRO: No Allergies Coded Allergies: Penicillins (Verified Allergy, Intermediate, HIVES, 05/17/17) Iron Sucrose (Verified Adverse Reaction, Mild, n&v, abd pain, 05/17/17) Home Medications Scheduled Aspirin (Aspirin Ec), 81 MG PO DAILY Atorvastatin (Lipitor), 10 MG PO HS Bumetanide (Bumex), 0.5 MG PO QAM Buspirone HCl (Buspirone HCl), 5 MG PO DAILY Docusate Sodium (Docusate Sodium), 100 MG PO BID Ferrous Sulfate (Ferrous Sulfate), 325 MG PO BID Levothyroxine Sodium (Synthroid), 88 MCG PO DAILY Magnesium Oxide (Mag-Ox), 400 MG PO QAM Metoprolol Tartrate (Lopressor) (Lopressor), 12.5 MG PO BID Mirtazapine (Remeron), 15 MG PO HS Nifedipine (Nifedipine Er), 30 MG PO DAILY Pantoprazole (Protonix), 40 MG PO DAILY Ranitidine (Zantac), 150 MG PO DAILY Scheduled PRN Lorazepam (Ativan), 1 MG PO Q6 PRN for Anxiety Review of Systems At least ten systems were reviewed and negative except as indicated in HPI. Physical Exam Vital Signs Date Time Temp Pulse Resp B/P (MAP) Pulse Ox O2 Delivery O2 Flow Rate FiO2 05/17/17 06:08 65 20 159/70 98 05/17/17 05:31 72 20 103/48 96 Room Air 05/17/17 05:17 68 20 172/50 98 Room Air 05/17/17 04:12 36.7 74 20 154/51 97 Room Air General Appearance: WD/WN, no apparent distress, + pertinent finding ( frequently falling asleep and then will wake up and repeat things indicating some emotional distress) Head: normocephalic, atraumatic Eyes: normal inspection, PERRL, sclerae normal ENT: hearing grossly normal, pharynx normal Neck: supple, no JVD, trachea midline Respiratory/Chest: lungs clear, normal breath sounds, no respiratory distress, no accessory muscle use Cardiovascular: regular rate, rhythm, no edema, no gallop, no JVD, no murmur, normal peripheral pulses Abdomen/GI: normal bowel sounds, soft, no organomegaly, + tenderness ( suprapubic) Back: normal inspection, + pertinent finding (could not get her into position to evaluate her for CVA tenderness) Extremities/Musculoskelatal: normal inspection, no calf tenderness, normal capillary refill, no pedal edema Neurologic/Psych: no motor/sensory deficits, alert, + pertinent finding ( appears anxious) Skin: normal color, warm/dry, no rash Diagnostics Laboratory Results 05/17/17 04:25 Red Blood Count 2.93, Mean Corpuscular Volume 99.0, Mean Corpuscular Hemoglobin 34.5, Mean Corpuscular Hemoglobin Concent 34.8, Mean Platelet Volume 10.1, Neutrophils (%) (Auto) 51.8, Lymphocytes (%) (Auto) 37.8, Monocytes (%) (Auto) 8.8, Eosinophils (%) (Auto) 0.8, Basophils (%) (Auto) 0.6, Neutrophils # (Auto) 2.59, Lymphocytes # (Auto) 1.89, Monocytes # (Auto) 0.44, Eosinophils # (Auto) 0.04, Basophils # (Auto) 0.03 05/17/17 04:25 Test 05/17/17 04:25 White Blood Count 5.00 K/uL (4.8-10.8) Red Blood Count 2.93 M/uL (4.2-5.4) Hemoglobin 10.1 g/dL (12.0-16.0) Hematocrit 29.0 % (37-47) Mean Corpuscular Volume 99.0 fL (80-100) Mean Corpuscular Hemoglobin 34.5 pg (25-34) Mean Corpuscular Hemoglobin Concent 34.8 g/dl (32-36) Platelet Count 149 K/uL (130-400) Mean Platelet Volume 10.1 fL (7.4-10.4) Neutrophils (%) (Auto) 51.8 % Lymphocytes (%) (Auto) 37.8 % Monocytes (%) (Auto) 8.8 % Eosinophils (%) (Auto) 0.8 % Basophils (%) (Auto) 0.6 % Neutrophils # (Auto) 2.59 K/uL (1.4-6.5) Lymphocytes # (Auto) 1.89 K/uL (1.2-3.4) Monocytes # (Auto) 0.44 K/uL (0.11-0.59) Eosinophils # (Auto) 0.04 K/uL (0-0.5) Basophils # (Auto) 0.03 K/uL (0-0.2) RDW Standard Deviation 46.9 fL (36.4-46.3) RDW Coefficient of Variation 13.0 % (11.5-14.5) Immature Granulocyte % (Auto) 0.2 % Immature Granulocyte # (Auto) 0.01 K/uL (0.00-0.02) Urine Color YELLOW Urine Appearance CLEAR (CLEAR) Urine pH 6.5 (4.5-7.5) Urine Specific [place] <= 1.005 (1.000-1.030) Urine Protein TRACE (NEG) Urine Glucose (UA) NEG (NEG) Urine Ketones NEG (NEG) Urine Occult Blood NEG (NEG) Urine Nitrite NEG (NEG) Urine Bilirubin NEG (NEG) Urine Urobilinogen NEG (NEG) Urine Leukocyte Esterase NEG (NEG) Urine RBC 0-4 /hpf (0-4) Urine WBC 1-5 /hpf (0-5) Urine Epithelial Cells 0-5 /lpf (0-5) Urine Bacteria 1+ (NEG) Anion Gap 9.0 mmol/L (3-11) Estimated GFR () 27.2 Estimated GFR (Non- 23.5 BUN/Creatinine Ratio 24.2 (10-20) Calcium Level 9.0 mg/dl (8.5-10.1) Phosphorus Level 3.1 mg/dl (2.5-4.9) Magnesium Level 2.6 mg/dl (1.8-2.4) Total Bilirubin 0.3 mg/dl (0.2-1) Direct Bilirubin 0.1 mg/dl (0-0.2) Aspartate Amino Transf (AST/SGOT) 18 U/L (15-37) Alanine Aminotransferase (ALT/SGPT) 26 U/L (12-78) Alkaline Phosphatase 108 U/L (45-117) Troponin I 0.016 ng/ml (0-0.045) Total Protein 6.8 gm/dl (6.4-8.2) Albumin 3.5 gm/dl (3.4-5.0) Lipase 305 U/L (73-393) Date/Time Source Procedure Growth Status 05/17/17 04:25 Urine,Catheterized Urine Culture Pending Received Results Past 24 Hours Test 05/17/17 04:25 Range/Units White Blood Count 5.00 4.8-10.8 K/uL Red Blood Count 2.93 4.2-5.4 M/uL Hemoglobin 10.1 12.0-16.0 g/dL Hematocrit 29.0 37-47 % Mean Corpuscular Volume 99.0 80-100 fL Mean Corpuscular Hemoglobin 34.5 25-34 pg Mean Corpuscular Hemoglobin Concent 34.8 32-36 g/dl Platelet Count 149 130-400 K/uL Mean Platelet Volume 10.1 7.4-10.4 fL Neutrophils (%) (Auto) 51.8 % Lymphocytes (%) (Auto) 37.8 % Monocytes (%) (Auto) 8.8 % Eosinophils (%) (Auto) 0.8 % Basophils (%) (Auto) 0.6 % Neutrophils # (Auto) 2.59 1.4-6.5 K/uL Lymphocytes # (Auto) 1.89 1.2-3.4 K/uL Monocytes # (Auto) 0.44 0.11-0.59 K/uL Eosinophils # (Auto) 0.04 0-0.5 K/uL Basophils # (Auto) 0.03 0-0.2 K/uL RDW Standard Deviation 46.9 36.4-46.3 fL RDW Coefficient of Variation 13.0 11.5-14.5 % Immature Granulocyte % (Auto) 0.2 % Immature Granulocyte # (Auto) 0.01 0.00-0.02 K/uL Urine Color YELLOW Urine Appearance CLEAR CLEAR Urine pH 6.5 4.5-7.5 Urine Specific [place] <= 1.005 1.000-1.030 Urine Protein TRACE NEG Urine Glucose (UA) NEG NEG Urine Ketones NEG NEG Urine Occult Blood NEG NEG Urine Nitrite NEG NEG Urine Bilirubin NEG NEG Urine Urobilinogen NEG NEG Urine Leukocyte Esterase NEG NEG Urine RBC 0-4 0-4 /hpf Urine WBC 1-5 0-5 /hpf Urine Epithelial Cells 0-5 0-5 /lpf Urine Bacteria 1+ NEG Sodium Level 128 136-145 mmol/L Potassium Level 3.8 3.5-5.1 mmol/L Chloride Level 92 98-107 mmol/L Carbon Dioxide Level 27 21-32 mmol/L Anion Gap 9.0 3-11 mmol/L Blood Urea Nitrogen 46 7-18 mg/dl Creatinine 1.90 0.60-1.20 mg/dl Estimated GFR () 27.2 Estimated GFR (Non- 23.5 BUN/Creatinine Ratio 24.2 10-20 Random Glucose 90 70-99 mg/dl Calcium Level 9.0 8.5-10.1 mg/dl Phosphorus Level 3.1 2.5-4.9 mg/dl Magnesium Level 2.6 1.8-2.4 mg/dl Total Bilirubin 0.3 0.2-1 mg/dl Direct Bilirubin 0.1 0-0.2 mg/dl Aspartate Amino Transf (AST/SGOT) 18 15-37 U/L Alanine Aminotransferase (ALT/SGPT) 26 12-78 U/L Alkaline Phosphatase 108 45-117 U/L Troponin I 0.016 0-0.045 ng/ml Total Protein 6.8 6.4-8.2 gm/dl Albumin 3.5 3.4-5.0 gm/dl Lipase 305 73-393 U/L Microbiology Results 05/17/17 Urine Culture, Received Pending Diagnostic Radiology Head CT without any acute intracranial changes. (wet read) CXR normal Normal EKG Impression Assessment and Plan 86 yo F with severe anxiety presents with lightheadedness/dizziness that started when she awoke tonight; she subsequently reports chest pain and is being admitted for ACS rule out. 1. Chest pain-resolved with nitro. Risk factors include age. She was last admitted for chest pain and this was thought to be secondary to anxiety at that time. Additionally, she was seen by Dr Hurst as an outpatient who felt that she was stable from a cardiac standpoint and thought she was having difficulty living independently. Most recent echo was performed in February 2017 and was normal aside from some mod TR. Trend enzymes, nitro/morphine PRN. 2. Anemia of chronic renal failure-at baseline. 3. SIADH-chronic with Na at baseline. 4. Anxiety-severe and causes frequent hospitalizations and ER visits. Currently on Buspar with Lorazepam for breakthough. She isn't taking the medication correctly per daughter and the anxiety is really no better. Discussed the Lexapro that was recommended by mental health during one of her recent hospitalizations and neither of them remember this drug. 5. CKD-Stage III. At baseline DVT proph-heparin Full Code per my conversation with patient and her daughter/wool brusher. [facility] Tele[facility] Resuscitation Status FULL RESUSCITATION VTE Prophylaxis VTE Risk Assessment Done? Y/N: Yes Risk Level: Moderate Given or contraindicated: Unfractionated heparin SQ
[2017-05-17] MEDS ORDERED: PATIENT'S HEIGHT AND/OR WEIGHT NEEDED SCH (07:15)
[2017-05-17] MEDS: RANITIDINE HCL 150 MG TAB PO SCH (09:05)
[2017-05-17] MEDS: SODIUM CHLORIDE 0.9% 1000ML 1,000 ML IV SCH ×2 (09:05→20:52)
[2017-05-17] MEDS: MAGNESIUM OXIDE 400 MG TAB PO SCH (09:06)
[2017-05-17] MEDS: LEVOTHYROXINE 88 MCG TAB PO SCH (09:06)
[2017-05-17] MEDS: NIFEdipine 30 MG CR TAB PO SCH (09:06)
[2017-05-17] MEDS: DOCUSATE SODIUM 100 MG CAP PO SCH ×2 (09:06→20:06)
[2017-05-17] MEDS: ASPIRIN 81 MG ECTAB PO SCH (09:06)
[2017-05-17] MEDS: METOPROLOL TARTRATE 25 MG TAB PO SCH ×2 (09:06→20:06)
[2017-05-17] MEDS: PANTOprazole SOD 40 MG TAB PO SCH (09:06)
[2017-05-17] MEDS: FERROUS SULFATE 325 MG TAB PO SCH ×2 (09:06→20:09)
[2017-05-17] MEDS: BUMETANIDE 1 MG TAB PO SCH (09:07)
[2017-05-17] MEDS: HEPARIN SOD 5000 UNIT/0.5 ML CARP SQ SCH ×3 (09:10→20:51)
[2017-05-17] MEDS: LORAZEPAM 1 MG TAB PO PRN ×2 (09:17→15:31)
[2017-05-17 11:28] VITALS: BP 165/65; PULSE 64; TEMP 36.6; O2SAT 99
[2017-05-17] MEDS ORDERED: IV FLUIDS COMPLETED PRN (13:30)
[2017-05-17] MEDS ORDERED: INFLUENZA VACCINE HIGH DOSE 65+ 0.5 ML SYR IM. ONE (14:00)
[2017-05-17] MEDS ORDERED: INFLUENZA ADMINISTRATION CHARGE ONE (14:00)
[2017-05-17 15:15] VITALS: BP 156/47; PULSE 61; TEMP 36.4; O2SAT 100
[2017-05-17 16:00] VITALS: O2SAT 100
[2017-05-17 16:29] LABS: CKMB/CK RATIO 1.9 (0-3.0)
--- NOTE | 2017-05-17 18:16 | Progress Note ---
Internal Med Progress Note Date of Service: May 17, 2017. Provider Documentation: SUBJECTIVE: The patient was seen and examined Does not feel good but can not quantify any symptoms Some abdominal discomfort OBJECTIVE: Vital Signs-as noted below Exam: General-No distress at rest Eyes-normal ENT-normal Neck-supple Lungs-Clear to auscultate bilaterally with decreased breath sound Heart-Regular,o murmur Abdomen-Benign,no masses,mildly distended, Extremities-No edema Neuro-AAOx3 Generally weak Lab data as noted below. ASSESSMENT & PLAN: 86 yo F with severe anxiety presents with lightheadedness/dizziness that started when she awoke tonight; she subsequently reports chest pain and is being admitted for ACS rule out. Chest pain-resolved with nitro Very atypical and nonspecific . Risk factors include age. Doubt any ACS-serial Raciel are negative Most recent echo was performed in February 2017 and was normal aside from some mod TR. Anemia of chronic renal failure-at baseline. Monitor Hb SIADH-chronic with Na at baseline. Monitor PRP Anxiety-severe and causes frequent hospitalizations and ER visits. Currently on Buspar with Lorazepam for breakthrough. She isn't taking the medication correctly per daughter and the anxiety is really no better. Discussed the Lexapro that was recommended by mental health during one of her recent hospitalizations and neither of them remember this drug. She has fear of dying Reassured-continue current medication CKD-Stage III. 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 Dispo-to telemetry PT/OT evaluation Vital Signs: Date Time Temp Pulse Resp B/P (MAP) Pulse Ox O2 Delivery O2 Flow Rate FiO2 05/17/17 16:00 100 Room Air 05/17/17 15:15 36.4 61 20 156/47 (83) 100 Room Air 05/17/17 12:00 Room Air 05/17/17 11:28 36.6 64 16 165/65 (98) 99 Room Air 05/17/17 08:00 Room Air 05/17/17 07:01 36.4 62 18 172/80 100 Room Air 05/17/17 06:08 65 20 159/70 98 05/17/17 05:31 72 20 103/48 96 Room Air 05/17/17 05:17 68 20 172/50 98 Room Air 05/17/17 04:12 36.7 74 20 154/51 97 Room Air Lab Results: Results Past 24 Hours Test 05/17/17 04:25 05/17/17 09:04 05/17/17 15:52 Range/Units White Blood Count 5.00 4.8-10.8 K/uL Red Blood Count 2.93 4.2-5.4 M/uL Hemoglobin 10.1 12.0-16.0 g/dL Hematocrit 29.0 37-47 % Mean Corpuscular Volume 99.0 80-100 fL Mean Corpuscular Hemoglobin 34.5 25-34 pg Mean Corpuscular Hemoglobin Concent 34.8 32-36 g/dl Platelet Count 149 130-400 K/uL Mean Platelet Volume 10.1 7.4-10.4 fL Neutrophils (%) (Auto) 51.8 % Lymphocytes (%) (Auto) 37.8 % Monocytes (%) (Auto) 8.8 % Eosinophils (%) (Auto) 0.8 % Basophils (%) (Auto) 0.6 % Neutrophils # (Auto) 2.59 1.4-6.5 K/uL Lymphocytes # (Auto) 1.89 1.2-3.4 K/uL Monocytes # (Auto) 0.44 0.11-0.59 K/uL Eosinophils # (Auto) 0.04 0-0.5 K/uL Basophils # (Auto) 0.03 0-0.2 K/uL RDW Standard Deviation 46.9 36.4-46.3 fL RDW Coefficient of Variation 13.0 11.5-14.5 % Immature Granulocyte % (Auto) 0.2 % Immature Granulocyte # (Auto) 0.01 0.00-0.02 K/uL Urine Color YELLOW Urine Appearance CLEAR CLEAR Urine pH 6.5 4.5-7.5 Urine Specific [place] <= 1.005 1.000-1.030 Urine Protein TRACE NEG Urine Glucose (UA) NEG NEG Urine Ketones NEG NEG Urine Occult Blood NEG NEG Urine Nitrite NEG NEG Urine Bilirubin NEG NEG Urine Urobilinogen NEG NEG Urine Leukocyte Esterase NEG NEG Urine RBC 0-4 0-4 /hpf Urine WBC 1-5 0-5 /hpf Urine Epithelial Cells 0-5 0-5 /lpf Urine Bacteria 1+ NEG Sodium Level 128 136-145 mmol/L Potassium Level 3.8 3.5-5.1 mmol/L Chloride Level 92 98-107 mmol/L Carbon Dioxide Level 27 21-32 mmol/L Anion Gap 9.0 3-11 mmol/L Blood Urea Nitrogen 46 7-18 mg/dl Creatinine 1.90 0.60-1.20 mg/dl Estimated GFR () 27.2 Estimated GFR (Non- 23.5 BUN/Creatinine Ratio 24.2 10-20 Random Glucose 90 70-99 mg/dl Calcium Level 9.0 8.5-10.1 mg/dl Phosphorus Level 3.1 2.5-4.9 mg/dl Magnesium Level 2.6 1.8-2.4 mg/dl Total Bilirubin 0.3 0.2-1 mg/dl Direct Bilirubin 0.1 0-0.2 mg/dl Aspartate Amino Transf (AST/SGOT) 18 15-37 U/L Alanine Aminotransferase (ALT/SGPT) 26 12-78 U/L Alkaline Phosphatase 108 45-117 U/L Troponin I 0.016 < 0.015 < 0.015 0-0.045 ng/ml Total Protein 6.8 6.4-8.2 gm/dl Albumin 3.5 3.4-5.0 gm/dl Lipase 305 73-393 U/L Total Creatine Kinase 26 31 26-192 U/L Creatine Kinase MB < 0.5 0.6 0.5-3.6 ng/ml Creatine Kinase MB Ratio 1.9 0-3.0 Microbiology Results 05/17/17 Urine Culture, Received Pending
[2017-05-17 19:30] VITALS: BP 122/37; PULSE 65; TEMP 36.3; O2SAT 98
[2017-05-17 20:00] VITALS: O2SAT 98
[2017-05-17] MEDS: MIRTAZAPINE TAB 15 MG TAB PO SCH (20:08)
[2017-05-17] MEDS: ATORVASTATIN 10 MG TAB PO SCH (20:08)
[2017-05-18] VITALS (12 sets, daily range): BP systolic 105–164; BP diastolic 44–65; PULSE 55–65; TEMP 36.3–36.8; O2SAT 95–100
[2017-05-18] MEDS: HEPARIN SOD 5000 UNIT/0.5 ML CARP SQ SCH ×3 (06:22→21:44)
[2017-05-18] MEDS: ACETAMINOPHEN 325 MG TAB PO PRN ×2 (07:27→18:28)
[2017-05-18] MEDS: LORAZEPAM 1 MG TAB PO PRN (07:27)
[2017-05-18] MEDS: METOPROLOL TARTRATE 25 MG TAB PO SCH ×2 (07:55→21:40)
[2017-05-18] MEDS: FERROUS SULFATE 325 MG TAB PO SCH ×2 (07:56→21:40)
[2017-05-18] MEDS: RANITIDINE HCL 150 MG TAB PO SCH (07:56)
[2017-05-18] MEDS: DOCUSATE SODIUM 100 MG CAP PO SCH ×2 (07:56→21:40)
[2017-05-18] MEDS: PANTOprazole SOD 40 MG TAB PO SCH (07:56)
[2017-05-18] MEDS: ASPIRIN 81 MG ECTAB PO SCH (07:57)
[2017-05-18] MEDS: BUMETANIDE 1 MG TAB PO SCH (07:57)
[2017-05-18] MEDS: MAGNESIUM OXIDE 400 MG TAB PO SCH (07:57)
[2017-05-18] MEDS: NIFEdipine 30 MG CR TAB PO SCH (07:58)
[2017-05-18 08:08] LABS: BUN/CREATININE RATIO 23.8 (10-20); CALCIUM 8.6 mg/dl (8.5-10.1); CREATININE 1.6 mg/dl (0.60-1.20); MAGNESIUM 2.4 mg/dl (1.8-2.4)
--- NOTE | 2017-05-18 16:25 | Progress Note ---
Internal Med Progress Note Date of Service: May 18, 2017. Provider Documentation: SUBJECTIVE: The patient was seen and examined Does not feel good but can not quantify any symptoms Some abdominal discomfort Much better today -05/18 Denies any pain and does not feel like dying Some back pain OBJECTIVE: Vital Signs-as noted below Exam: General-No distress at rest Eyes-normal ENT-normal Neck-supple Lungs-Clear to auscultate bilaterally with decreased breath sound Heart-Regular,o murmur Abdomen-Benign,no masses,mildly distended, Extremities-No edema Neuro-AAOx3 Generally weak Lab data as noted below. ASSESSMENT & PLAN: 86 yo F with severe anxiety presents with lightheadedness/dizziness that started when she awoke tonight; she subsequently reports chest pain and is being admitted for ACS rule out. Chest pain-resolved with nitro Very atypical and nonspecific . Risk factors include age. Doubt any ACS-serial Raciel are negative Most recent echo was performed in February 2017 and was normal aside from some mod TR. No more chest pain Anemia of chronic renal failure-at baseline. Monitor Hb SIADH-chronic with Na at baseline. Monitor PRP- Sodium 134 today Anxiety-severe and causes frequent hospitalizations and ER visits. Currently on Buspar with Lorazepam for breakthrough. She isn't taking the medication correctly per daughter and the anxiety is really no better. Discussed the Lexapro that was recommended by mental health during one of her recent hospitalizations and neither of them remember this drug. She has fear of dying Reassured-continue current medication CKD-Stage III. 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 Dispo-to telemetry PT/OT evaluation Can be moved to [place] Vital Signs: Date Time Temp Pulse Resp B/P (MAP) Pulse Ox O2 Delivery O2 Flow Rate FiO2 05/18/17 15:50 99 Room Air 05/18/17 12:00 99 Room Air 05/18/17 11:01 36.7 59 22 148/49 (82) 99 Room Air 05/18/17 08:00 Room Air 05/18/17 07:23 36.7 65 22 139/50 (79) 96 Room Air 05/18/17 04:26 36.5 64 19 154/55 (88) 97 Room Air 10/9/17 04:00 Room Air 05/18/17 00:15 36.3 57 17 119/65 (83) 95 Nasal Cannula 2.0 05/17/17 23:59 Room Air 05/17/17 20:00 98 Room Air 05/17/17 19:30 36.3 65 20 122/37 (65) 98 Room Air Lab Results: Results Past 24 Hours Test 05/18/17 06:59 Range/Units Sodium Level 134 136-145 mmol/L Potassium Level 4.0 3.5-5.1 mmol/L Chloride Level 100 98-107 mmol/L Carbon Dioxide Level 31 21-32 mmol/L Anion Gap 3.0 3-11 mmol/L Blood Urea Nitrogen 38 7-18 mg/dl Creatinine 1.60 0.60-1.20 mg/dl Est Creatinine Clear Calc Drug Dose 18.1 ml/min Estimated GFR () 33.5 Estimated GFR (Non- 28.9 BUN/Creatinine Ratio 23.8 10-20 Random Glucose 80 70-99 mg/dl Calcium Level 8.6 8.5-10.1 mg/dl Magnesium Level 2.4 1.8-2.4 mg/dl
[2017-05-18] MEDS: MIRTAZAPINE TAB 15 MG TAB PO SCH (21:39)
[2017-05-18] MEDS: ATORVASTATIN 10 MG TAB PO SCH (21:39)
[2017-05-19] MEDS: LEVOTHYROXINE 88 MCG TAB PO SCH (06:35)
[2017-05-19] MEDS: HEPARIN SOD 5000 UNIT/0.5 ML CARP SQ SCH ×3 (06:41→21:47)
[2017-05-19 07:05] VITALS: BP 140/50; PULSE 58; TEMP 36.3; O2SAT 97
[2017-05-19] MEDS: DOCUSATE SODIUM 100 MG CAP PO SCH ×2 (07:45→21:40)
[2017-05-19] MEDS: MAGNESIUM OXIDE 400 MG TAB PO SCH (07:46)
[2017-05-19] MEDS: NIFEdipine 30 MG CR TAB PO SCH (07:46)
[2017-05-19] MEDS: METOPROLOL TARTRATE 25 MG TAB PO SCH ×2 (07:46→21:45)
[2017-05-19] MEDS: RANITIDINE HCL 150 MG TAB PO SCH (07:46)
[2017-05-19] MEDS: BUMETANIDE 1 MG TAB PO SCH (07:46)
[2017-05-19] MEDS: ASPIRIN 81 MG ECTAB PO SCH (07:46)
[2017-05-19] MEDS: FERROUS SULFATE 325 MG TAB PO SCH ×2 (07:46→21:44)
[2017-05-19] MEDS: PANTOprazole SOD 40 MG TAB PO SCH (07:46)
[2017-05-19] MEDS: LORAZEPAM 1 MG TAB PO PRN ×2 (07:49→18:35)
[2017-05-19] MEDS: ACETAMINOPHEN 325 MG TAB PO PRN ×2 (07:49→18:35)
[2017-05-19 11:26] VITALS: BP_SYST 107; BP_SYST 113; BP_SYST 79; BP_DIAS 38; BP_DIAS 44; BP_DIAS 45; PULSE 51; PULSE 56; PULSE 69
[2017-05-19] MEDS ORDERED: NITROFURANTOIN MONOHYDRATE 100 MG CAP PO STA (13:28)
--- NOTE | 2017-05-19 13:28 | Progress Note ---
Internal Med Progress Note Date of Service: May 19, 2017. Provider Documentation: SUBJECTIVE: The patient was seen and examined Does not feel good but can not quantify any symptoms Some abdominal discomfort Much better today Complains some back pain No Fever,chills OBJECTIVE: Vital Signs-as noted below Exam: General-No distress at rest Eyes-normal ENT-normal Neck-supple Lungs-Clear to auscultate bilaterally with decreased breath sound Heart-Regular,o murmur Abdomen-Benign,no masses,mildly distended, Extremities-No edema Neuro-AAOx3 Generally weak Lab data as noted below. ASSESSMENT & PLAN: 86 yo F with severe anxiety presents with lightheadedness/dizziness that started when she awoke tonight; she subsequently reports chest pain and is being admitted for ACS rule out. Enterococcal UTI Sensitive to PCN,Nitrofurantoin and genta.Resistant to Quinolones Will start Ampicillin Chest pain-resolved with nitro Very atypical and nonspecific . Risk factors include age. Doubt any ACS-serial Raciel are negative Most recent echo was performed in February 2017 and was normal aside from some mod TR. No more chest pain Anemia of chronic renal failure-at baseline. Monitor Hb SIADH-chronic with Na at baseline. Monitor PRP- Sodium 134 05/18/17 Anxiety-severe and causes frequent hospitalizations and ER visits. Currently on Buspar with Lorazepam for breakthrough. She isn't taking the medication correctly per daughter and the anxiety is really no better. Discussed the Lexapro that was recommended by mental health during one of her recent hospitalizations and neither of them remember this drug. She has fear of dying Reassured-continue current medication CKD-Stage III. 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 Dispo-to telemetry PT/OT evaluation Likely discharge in a day or two Vital Signs: Date Time Temp Pulse Resp B/P (MAP) Pulse Ox O2 Delivery O2 Flow Rate FiO2 05/19/17 11:26 51 107/38 (61) 69 79/45 (56) 56 113/44 (67) 05/19/17 08:00 Room Air 05/19/17 07:05 36.3 58 18 140/50 (80) 97 Room Air 05/19/17 00:00 Room Air 05/18/17 23:58 36.8 60 18 137/56 (83) 98 Room Air 05/18/17 20:38 36.4 61 18 164/62 (96) 99 Room Air 05/18/17 19:15 99 Room Air 05/18/17 17:32 36.3 55 16 99 2.0 05/18/17 16:20 36.7 62 18 154/54 (87) 99 Room Air 05/18/17 15:50 99 Room Air 05/18/17 15:40 36.3 55 16 105/44 (64) 100 Room Air
[2017-05-19 14:09] LABS: HEMATOCRIT 26.7 % (37-47); MEAN CELL VOLUME 101.9 fL (80-100); MEAN CORPUSCULAR HEMOGLOBIN 36.3 pg (25-34); MEAN CORPUSCULAR HGB CONC 35.6 g/dl (32-36); MEAN PLATELET VOLUME 9.7 fL (7.4-10.4); PLATELET COUNT 157 K/uL (130-400); RED BLOOD COUNT 2.62 M/uL (4.2-5.4); WHITE BLOOD COUNT 3.54 K/uL (4.8-10.8)
[2017-05-19] MEDS ORDERED: VANCOMYCIN CONSULT ACTIVE PRN (14:15)
[2017-05-19] MEDS ORDERED: VANCOMYCIN INJ 1,250 MG in SODIUM CHLORIDE 0.9% 250ML 250 ML IV STA (14:16)
[2017-05-19 14:45] LABS: BUN/CREATININE RATIO 23.6 (10-20); CREATININE 1.9 mg/dl (0.60-1.20); POTASSIUM 4.4 mmol/L (3.5-5.1)
[2017-05-19 15:27] VITALS: BP 149/66; PULSE 62; TEMP 36.5; O2SAT 98
[2017-05-19 15:28] VITALS: BP 125/81; PULSE 83; TEMP 36.4; O2SAT 95
--- NOTE | 2017-05-19 15:44 | Pharmacy Progress Note ---
Pharmacy Antibiotic Consult Date of Service: May 19, 2017. Pharmacy Dosing Scope Pharmacy is consulted to initiate vancomycin IV dosing therapy, order appropriate labs and adjust drug dose/frequency. Subjective The patient is a 86 year old female admitted on May 18, 2017 at 18:07. Objective Height (Feet): 5 Height (Inches): 0.00 Weight (Kilograms): 48.000 Lab Results (24hrs): Test 05/19/17 13:48 White Blood Count 3.54 K/uL (4.8-10.8) Red Blood Count 2.62 M/uL (4.2-5.4) Hemoglobin 9.5 g/dL (12.0-16.0) Hematocrit 26.7 % (37-47) Mean Corpuscular Volume 101.9 fL (80-100) Mean Corpuscular Hemoglobin 36.3 pg (25-34) Mean Corpuscular Hemoglobin Concent 35.6 g/dl (32-36) RDW Standard Deviation 50.0 fL (36.4-46.3) RDW Coefficient of Variation 13.5 % (11.5-14.5) Platelet Count 157 K/uL (130-400) Mean Platelet Volume 9.7 fL (7.4-10.4) Sodium Level 131 mmol/L (136-145) Potassium Level 4.4 mmol/L (3.5-5.1) Chloride Level 97 mmol/L (98-107) Carbon Dioxide Level 28 mmol/L (21-32) Anion Gap 6.0 mmol/L (3-11) Blood Urea Nitrogen 45 mg/dl (7-18) Creatinine 1.90 mg/dl (0.60-1.20) Est Creatinine Clear Calc Drug Dose 15.3 ml/min Estimated GFR () 27.2 Estimated GFR (Non- 23.5 BUN/Creatinine Ratio 23.6 (10-20) Random Glucose 93 mg/dl (70-99) Calcium Level 9.0 mg/dl (8.5-10.1) Assessment & Plan Assessment * 86 yo F with E. faecalis isolated in urine culture. UA w trace protein, 1+ bacteria, and minimal epithelial cells. Patient does not have urinary symptoms per Dr. Vega. * PO options limited - penicillin allergy (hives) w/o hx of beta lactam administration therefore amoxicillin poses risk. Resistance to fluoroquinolones. Macrobid contraindicated in CrCL < 30-60 mL/min. Fosfomycin difficult to obtain/sensitivity not indicated. * Vancomycin IV therefore appropriate, but OK to have shorter course of antibiotics per Dr. Vega (3 days OK) * OK to load with full 25 mg/kg IV despite renal dysfunction * Will not schedule ongoing order and instead order random level in AM Plan * Vancomycin 1250 mg IV x1 now * Random w AM labs 05/20 Pharmacy will continue to follow and will adjust dose/frequency as necessary. Thank you
[2017-05-19] MEDS ORDERED: NITROFURANTOIN MONOHYDRATE 100 MG CAP PO SCH (21:00)
[2017-05-19 21:43] VITALS: BP 101/63; PULSE 71
[2017-05-19] MEDS: ATORVASTATIN 10 MG TAB PO SCH (21:45)
[2017-05-19] MEDS: MIRTAZAPINE TAB 15 MG TAB PO SCH (21:45)
[2017-05-20 00:36] VITALS: BP 147/51; PULSE 62; TEMP 36.8; O2SAT 96
[2017-05-20 05:50] LABS: HEMATOCRIT 27.1 % (37-47); MEAN CELL VOLUME 101.9 fL (80-100); MEAN CORPUSCULAR HEMOGLOBIN 35.7 pg (25-34); MEAN CORPUSCULAR HGB CONC 35.1 g/dl (32-36); MEAN PLATELET VOLUME 9.8 fL (7.4-10.4); PLATELET COUNT 150 K/uL (130-400); RED BLOOD COUNT 2.66 M/uL (4.2-5.4); WHITE BLOOD COUNT 5.56 K/uL (4.8-10.8)
[2017-05-20 06:23] LABS: CREATININE 1.7 mg/dl (0.60-1.20)
[2017-05-20] MEDS: LEVOTHYROXINE 88 MCG TAB PO SCH (06:42)
[2017-05-20] MEDS: HEPARIN SOD 5000 UNIT/0.5 ML CARP SQ SCH ×3 (06:43→21:04)
[2017-05-20] MEDS: RANITIDINE HCL 150 MG TAB PO SCH (07:54)
[2017-05-20] MEDS: LORAZEPAM 1 MG TAB PO PRN (07:54)
[2017-05-20] MEDS: PANTOprazole SOD 40 MG TAB PO SCH (07:54)
[2017-05-20] MEDS: NIFEdipine 30 MG CR TAB PO SCH (07:55)
[2017-05-20] MEDS: TRAMADOL HCL 50 MG TAB PO PRN (07:55)
[2017-05-20] MEDS: MAGNESIUM OXIDE 400 MG TAB PO SCH (07:56)
[2017-05-20] MEDS: BUMETANIDE 1 MG TAB PO SCH (07:56)
[2017-05-20] MEDS: FERROUS SULFATE 325 MG TAB PO SCH ×2 (07:56→20:55)
[2017-05-20] MEDS: METOPROLOL TARTRATE 25 MG TAB PO SCH ×2 (07:57→21:05)
[2017-05-20] MEDS: ASPIRIN 81 MG ECTAB PO SCH (07:57)
[2017-05-20] MEDS: DOCUSATE SODIUM 100 MG CAP PO SCH ×2 (07:57→20:55)
[2017-05-20 08:00] VITALS: BP 110/70; PULSE 50; TEMP 35.7; O2SAT 98
[2017-05-20] MEDS ORDERED: VANCOMYCIN INJ 1,250 MG in SODIUM CHLORIDE 0.9% 250ML 250 ML IV ONE (10:00)
[2017-05-20] MEDS ORDERED: VANCOMYCIN INJ 1,000 MG in SODIUM CHLORIDE 0.9% 250ML 250 ML IV ONE (10:00)
--- NOTE | 2017-05-20 10:00 | Pharmacy Progress Note ---
Pharmacy Abx Dose Short Note Date of Service May 20, 2017. Assessment & Plan 05/20/17 This AM's random lvl was slightly subtherapeutic at 12.8mcg/mL for E. Faecalis isolates in the UC. Will give Vanco 1000mg (21mg/kg) x1 now and order random lvl for 05/21/17 @0444. Per Dr. Vega, only 3 day treatment course is indicated. (Day 2 of 3). Pt's renal fxn seems to be declining. Population p' kinetics was not studied in this type of a patient, will therefore continue with Vanco PRN. UO through 05/19/17 was -1010mL. It's possible she's eliminating more Vancomycin than her renal fxn may predict. 05/21/17 Random lvl this AM came back therapeutic at 19.2mcg/mL. Will order Vanco 500mg(~ 10mg/kg)x1 @1030. This is day 3 of 3 of treatment. Will not order a random lvl for 05/22/17. Consult PharmD to sign off 05/22/17. Pharmacy will continue to follow and will adjust dose/frequency as necessary. Thank you.
--- NOTE | 2017-05-20 10:15 | Clinical Documentation Query ---
CLINICAL DOCUMENTATION QUERY 86 yo F with severe anxiety presents with lightheadedness/dizziness that started when she awoke tonight; she subsequently reports chest pain and is being admitted for ACS rule out. In your clinical opinion is this patient being managed for: ( + ) Chronic kidney disease, stage 4 ( ) Not Agree ( ) Other explanation of clinical findings (Please Explain) ( ) Unable to determine (Please Define) ( ) Need to Discuss Per GFR criteria The medical record reflects the following clinical findings, treatment, and risk factors. Clinical Indicators: GFR's range from 23.5 to 28.9, documented PMH of CKD stage 4, anemia of chronic renal failure, increased creatinine Treatment:I&O, serial creatinine/PRP's Risk Factors: Age, chronic renal failure Please clarify and document your clinical opinion in the progress notes and discharge summary. Terms such as "probable", "suspected", "likely", "questionable", "possible", or "still to be ruled out" are acceptable. IF IN AGREEMENT, YOU MUST DOCUMENT ABOVE DIAGNOSTIC STATEMENT IN DAILY PROGRESS NOTES AND DISCHARGE SUMMARY. This document is not part of the patient's record. Thank You, Jess Somers RN [phone]
[2017-05-20 15:33] VITALS: BP 115/70; PULSE 52; TEMP 35.8; O2SAT 98
--- NOTE | 2017-05-20 15:42 | Progress Note ---
Internal Med Progress Note Date of Service: May 20, 2017. Provider Documentation: SUBJECTIVE: The patient was seen and examined Does not feel good but can not quantify any symptoms Some abdominal discomfort Much better today Denies any symptoms ,no back pain today OBJECTIVE: Vital Signs-as noted below Exam: General-No distress at rest Eyes-normal ENT-normal Neck-supple Lungs-Clear to auscultate bilaterally with decreased breath sound Heart-Regular,o murmur Abdomen-Benign,no masses,mildly distended, Extremities-No edema Neuro-AAOx3 Generally weak Lab data as noted below. ASSESSMENT & PLAN: 86 yo F with severe anxiety presents with lightheadedness/dizziness that started when she awoke tonight; she subsequently reports chest pain and is being admitted for ACS rule out. Enterococcal UTI Sensitive to PCN,Nitrofurantoin and genta.Resistant to Quinolones Started on Vancomycin Will give for 3 days only Advised more fluid intake Chest pain-resolved with nitro Very atypical and nonspecific . Risk factors include age. Doubt any ACS-serial Raciel are negative Most recent echo was performed in February 2017 and was normal aside from some mod TR. No more chest pain Anemia of chronic renal failure-at baseline. 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 Monitor PRP- Sodium 134 05/18/17 >130 on 05/20/17 Anxiety-severe and causes frequent hospitalizations and ER visits. Currently on Buspar with Lorazepam for breakthrough. She isn't taking the medication correctly per daughter and the anxiety is really no better. Discussed the Lexapro that was recommended by mental health during one of her recent hospitalizations and neither of them remember this drug. She has fear of dying Reassured-continue current medication CKD-Stage IV. 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 Dispo-to telemetry PT/OT evaluation Likely discharge in a day or two Vital Signs: Date Time Temp Pulse Resp B/P (MAP) Pulse Ox O2 Delivery O2 Flow Rate FiO2 05/20/17 16:00 98 Room Air 05/20/17 15:33 35.8 52 18 115/70 (85) 98 Room Air 05/20/17 08:20 Room Air 05/20/17 08:00 35.7 50 18 110/70 (83) 98 Room Air 05/20/17 00:36 36.8 62 18 147/51 (83) 96 Room Air 05/20/17 00:00 Room Air 05/19/17 21:43 71 101/63 (76) Lab Results: Results Past 24 Hours Test 05/20/17 05:20 Range/Units White Blood Count 5.56 4.8-10.8 K/uL Red Blood Count 2.66 4.2-5.4 M/uL Hemoglobin 9.5 12.0-16.0 g/dL Hematocrit 27.1 37-47 % Mean Corpuscular Volume 101.9 80-100 fL Mean Corpuscular Hemoglobin 35.7 25-34 pg Mean Corpuscular Hemoglobin Concent 35.1 32-36 g/dl RDW Standard Deviation 49.5 36.4-46.3 fL RDW Coefficient of Variation 13.5 11.5-14.5 % Platelet Count 150 130-400 K/uL Mean Platelet Volume 9.8 7.4-10.4 fL Creatinine 1.70 0.60-1.20 mg/dl Est Creatinine Clear Calc Drug Dose 17.1 ml/min Estimated GFR () 31.1 Estimated GFR (Non- 26.8 Random Vancomycin Level 12.8 mcg/ml Microbiology Results 05/20/17 C.difficile Toxin B Gene (PCR) - Final, Complete No C. difficile toxin B gene detected
[2017-05-20 16:00] VITALS: O2SAT 98
[2017-05-20] MEDS: ATORVASTATIN 10 MG TAB PO SCH (20:55)
[2017-05-20] MEDS: MIRTAZAPINE TAB 15 MG TAB PO SCH (20:58)
[2017-05-21 00:08] VITALS: BP 102/57; PULSE 56; TEMP 36.3; O2SAT 99
[2017-05-21] MEDS: HEPARIN SOD 5000 UNIT/0.5 ML CARP SQ SCH ×3 (05:44→22:30)
[2017-05-21] MEDS: LEVOTHYROXINE 88 MCG TAB PO SCH (06:41)
[2017-05-21 07:13] VITALS: BP 128/46; PULSE 59; TEMP 36.7; O2SAT 98
[2017-05-21] MEDS: TRAMADOL HCL 50 MG TAB PO PRN (07:37)
[2017-05-21] MEDS: NIFEdipine 30 MG CR TAB PO SCH (07:37)
[2017-05-21] MEDS: LORAZEPAM 1 MG TAB PO PRN ×2 (07:37→18:14)
[2017-05-21] MEDS: ASPIRIN 81 MG ECTAB PO SCH (07:38)
[2017-05-21] MEDS: RANITIDINE HCL 150 MG TAB PO SCH (07:38)
[2017-05-21] MEDS: PANTOprazole SOD 40 MG TAB PO SCH (07:38)
[2017-05-21] MEDS: MAGNESIUM OXIDE 400 MG TAB PO SCH (07:38)
[2017-05-21] MEDS: BUMETANIDE 1 MG TAB PO SCH (07:38)
[2017-05-21] MEDS: DOCUSATE SODIUM 100 MG CAP PO SCH ×2 (07:38→22:17)
[2017-05-21] MEDS: FERROUS SULFATE 325 MG TAB PO SCH ×2 (07:38→22:17)
[2017-05-21] MEDS: METOPROLOL TARTRATE 25 MG TAB PO SCH ×2 (07:39→22:18)
[2017-05-21 07:56] LABS: CREATININE 1.8 mg/dl (0.60-1.20)
[2017-05-21] MEDS ORDERED: VANCOMYCIN INJ 500 MG in SODIUM CHLORIDE 0.9% 250ML 250 ML IV ONE (10:30)
--- NOTE | 2017-05-21 14:17 | Progress Note ---
Internal Med Progress Note Date of Service: May 21, 2017. Provider Documentation: SUBJECTIVE: The patient was seen and examined Does not feel good but can not quantify any symptoms Some abdominal discomfort Remains stable Denies any symptoms except some back pain OBJECTIVE: Vital Signs-as noted below Exam: General-No distress at rest OOB in a chair without any symptoms Eyes-normal ENT-normal Neck-supple Lungs-Clear to auscultate bilaterally with decreased breath sound Heart-Regular,o murmur Abdomen-Benign,no masses,mildly distended, Extremities-No edema Neuro-AAOx3 Generally weak Lab data as noted below. ASSESSMENT & PLAN: 86 yo F with severe anxiety presents with lightheadedness/dizziness that started when she awoke tonight; she subsequently reports chest pain and is being admitted for ACS rule out. Enterococcal UTI Sensitive to PCN,Nitrofurantoin and genta.Resistant to Quinolones Started on Vancomycin Will give for 3 days only Advised more fluid intake D/C Antibiotic Chest pain-resolved with nitro Very atypical and nonspecific . Risk factors include age. Doubt any ACS-serial Raciel are negative Most recent echo was performed in February 2017 and was normal aside from some mod TR. No more chest pain Clinically much better Anemia of chronic renal failure-at baseline. 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 Monitor PRP- Sodium 134 05/18/17 >130 on 05/20/17 Anxiety-severe and causes frequent hospitalizations and ER visits. Currently on Buspar with Lorazepam for breakthrough. She isn't taking the medication correctly per daughter and the anxiety is really no better. Discussed the Lexapro that was recommended by mental health during one of her recent hospitalizations and neither of them remember this drug. She has fear of dying Reassured-continue current medication CKD-Stage IV. 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 Dispo-to telemetry PT/OT evaluation Likely discharge in a day or two Will need placement Vital Signs: Date Time Temp Pulse Resp B/P (MAP) Pulse Ox O2 Delivery O2 Flow Rate FiO2 05/21/17 08:10 Room Air 05/21/17 07:13 36.7 59 18 128/46 (73) 98 Room Air 05/21/17 00:20 Room Air 05/21/17 00:08 36.3 56 16 102/57 (72) 99 Room Air 05/20/17 16:00 98 Room Air 05/20/17 15:33 35.8 52 18 115/70 (85) 98 Room Air Lab Results: Results Past 24 Hours Test 05/21/17 06:46 Range/Units Creatinine 1.80 0.60-1.20 mg/dl Est Creatinine Clear Calc Drug Dose 16.1 ml/min Estimated GFR () 29.0 Estimated GFR (Non- 25.0 Random Vancomycin Level 19.2 mcg/ml
[2017-05-21 14:56] VITALS: BP 157/50; PULSE 65; TEMP 36.5; O2SAT 100
[2017-05-21 16:00] VITALS: O2SAT 100
[2017-05-21] MEDS: MIRTAZAPINE TAB 15 MG TAB PO SCH (22:16)
[2017-05-21] MEDS: ATORVASTATIN 10 MG TAB PO SCH (22:16)
[2017-05-21 23:52] VITALS: BP 137/47; PULSE 69; TEMP 36.3; O2SAT 98
[2017-05-22] MEDS: HEPARIN SOD 5000 UNIT/0.5 ML CARP SQ SCH ×3 (06:00→20:05)
[2017-05-22] MEDS: LEVOTHYROXINE 88 MCG TAB PO SCH (06:18)
[2017-05-22 07:38] VITALS: BP 142/43; PULSE 70; TEMP 36.7; O2SAT 98
[2017-05-22 08:21] LABS: CREATININE 1.7 mg/dl (0.60-1.20)
[2017-05-22] MEDS ORDERED: LOPERAMIDE HCL 2 MG CAP PO STA (08:39)
[2017-05-22] MEDS: METOPROLOL TARTRATE 25 MG TAB PO SCH ×2 (09:06→20:05)
[2017-05-22] MEDS: FERROUS SULFATE 325 MG TAB PO SCH ×2 (09:06→20:02)
[2017-05-22] MEDS: BUMETANIDE 1 MG TAB PO SCH (09:06)
[2017-05-22] MEDS: PANTOprazole SOD 40 MG TAB PO SCH (09:06)
[2017-05-22] MEDS: MAGNESIUM OXIDE 400 MG TAB PO SCH (09:06)
[2017-05-22] MEDS: ASPIRIN 81 MG ECTAB PO SCH (09:06)
[2017-05-22] MEDS: RANITIDINE HCL 150 MG TAB PO SCH (09:06)
[2017-05-22] MEDS: NIFEdipine 30 MG CR TAB PO SCH (09:06)
[2017-05-22] MEDS: DOCUSATE SODIUM 100 MG CAP PO SCH ×2 (09:06→20:03)
--- NOTE | 2017-05-22 09:37 | Progress Note ---
Subjective Date of Service: May 22, 2017. Subjective Pt evaluation today including: conversation w/ patient, physical exam, lab review, review of studies, review of inpatient medication list Saw/examined the patient in room 253 Very anxious this morning As per nursing, she has had diarrhea and was initially refusing to eat breakfast - she eventually did eat and states she feels fine with that Villegas catheter is in place She is c/o shortness of breath, but is not in any respiratory distress Problem List Medical Problems: (1) Abdominal pain Status: Acute (2) Abdominal pain Status: Acute (3) Acute on chronic renal insufficiency Status: Acute (4) Anxiety Status: Chronic (5) Bilateral pleural effusion Status: Acute (6) Chronic hyponatremia Status: Acute (7) Chronic kidney disease Status: Acute (8) Chronic renal insufficiency Status: Acute (9) Closed head injury Status: Acute (10) Constipation Status: Acute (11) Constipation Status: Acute (12) Constipation Status: Acute (13) Constipation Status: Acute (14) Decreased urine output Status: Acute (15) Degenerative arthritis of cervical spine Status: Acute (16) Dehydration Status: Acute (17) Dehydration Status: Acute (18) Dehydration Status: Acute (19) Dehydration Status: Acute (20) Dehydration Status: Acute (21) Depression Status: Acute (22) Diarrhea Status: Acute (23) Elevated serum creatinine Status: Acute (24) Failure to thrive Status: Acute (25) Fall Status: Acute (26) Fall Status: Acute (27) Generalized weakness Status: Acute (28) Generalized weakness Status: Acute (29) Generalized weakness Status: Acute (30) Generalized weakness Status: Acute (31) Heart palpitations Status: Acute (32) Hypomagnesemia Status: Acute (33) Hyponatremia Status: Acute (34) Hyponatremia Status: Acute (35) Hyponatremia Status: Acute (36) Hyponatremia Status: Acute (37) Hyponatremia Status: Acute (38) Hyponatremia Status: Acute (39) Leg weakness Status: Acute (40) Multiple complaints Status: Acute (41) New onset atrial flutter Status: Acute (42) Orthostatic hypotension Status: Acute (43) Orthostatic hypotension Status: Acute (44) Palpitations Status: Chronic (45) Pericardial effusion Status: Acute (46) Pneumonia involving left lung Status: Acute (47) Precordial chest pain Status: Acute (48) Precordial chest pain Status: Acute (49) Premature ventricular contractions Status: Acute (50) Premature ventricular contractions Status: Acute (51) PVC's (premature ventricular contractions) Status: Acute (52) Renal insufficiency Status: Acute (53) Ribs, multiple fractures Status: Acute (54) Sore neck Status: Acute (55) Symptomatic anemia Status: Acute (56) Symptoms involving urinary system Status: Acute (57) Symptoms involving urinary system Status: Acute (58) Urinary retention Status: Acute (59) UTI (urinary tract infection) Status: Acute (60) Weakness Status: Acute (61) Weakness Status: Acute (62) Weakness Status: Acute (63) Weakness Status: Acute (64) Weakness Status: Acute Review of Systems Constitutional: + weakness, No fever, No chills Respiratory: + shortness of breath, No cough, No sputum Cardiac: No chest pain Abdomen: No pain, No nausea, No vomiting, No diarrhea Medications Current Inpatient Medications Medications (Trade) Dose Ordered Sig/Jassi Route Start Time Stop Time Status Last Admin Dose Admin Heparin Sodium (Porcine) (Heparin Sq 5000 Unit/0.5ml) 5,000 unit Q8 SQ 05/17/17 08:00 06/16/17 07:59 05/21/17 22:30 5,000 UNIT Acetaminophen (Tylenol Tab) 650 mg Q4H PRN PO 05/17/17 05:30 06/16/17 05:29 05/19/17 18:35 650 MG Ondansetron HCl (Zofran Inj) 4 mg Q6H PRN IV 05/17/17 05:30 06/16/17 05:29 05/17/17 17:47 4 MG Nitroglycerin (Nitrostat Tab) 0.4 mg UD PRN SL 05/17/17 05:30 06/16/17 05:29 Morphine Sulfate (MoRPHine SULFATE INJ) 2 mg Q30M PRN IV 05/17/17 05:30 05/31/17 05:29 Aspirin (Ecotrin Tab) 81 mg QAM PO 05/17/17 09:00 06/16/17 08:59 05/22/17 09:06 81 MG Polyethylene (Miralax Powder Packet) 17 gm DAILY PRN PO 05/17/17 05:30 06/16/17 05:29 05/19/17 13:36 17 GM Atorvastatin Calcium (Lipitor Tab) 10 mg HS PO 05/17/17 21:00 06/16/17 20:59 05/21/17 22:16 10 MG Bumetanide (Bumex Tab) 0.5 mg QAM PO 05/17/17 09:00 06/16/17 08:59 05/22/17 09:06 0.5 MG Buspirone HCl (Buspar Tab) 5 mg DAILY PO 05/17/17 09:00 06/16/17 08:59 05/22/17 09:06 5 MG Docusate Sodium (coLACE CAP) 100 mg BID PO 05/17/17 09:00 06/16/17 08:59 05/22/17 09:06 100 MG Ferrous Sulfate (Feosol Tab) 325 mg BID PO 05/17/17 09:00 06/16/17 08:59 05/22/17 09:06 325 MG Levothyroxine Sodium (Synthroid Tab) 88 mcg DAILYBB PO 05/18/17 06:00 06/17/17 05:59 05/21/17 06:41 88 MCG Lorazepam (Ativan Tab) 1 mg Q6 PRN PO 05/17/17 06:45 06/16/17 06:44 05/21/17 18:14 1 MG Magnesium Oxide (Mag-Ox Tab) 400 mg QAM PO 05/17/17 09:00 06/16/17 08:59 05/22/17 09:06 400 MG Metoprolol Tartrate (Lopressor Tab) 12.5 mg BID PO 05/17/17 09:00 06/16/17 08:59 05/22/17 09:06 12.5 MG Mirtazapine (Remeron Tab) 15 mg HS PO 05/17/17 21:00 06/16/17 20:59 05/21/17 22:16 15 MG Nifedipine (Procardia Xl Tab) 30 mg DAILY PO 05/17/17 09:00 06/16/17 08:59 05/22/17 09:06 30 MG Pantoprazole Sodium (Protonix Tab) 40 mg DAILY PO 05/17/17 09:00 06/16/17 08:59 05/22/17 09:06 40 MG Ranitidine HCl (zANTac TAB) 150 mg DAILY PO 05/17/17 09:00 06/16/17 08:59 05/22/17 09:06 150 MG Miscellaneous (Iv Fluids Completed) 1 ea PRN PRN N/A 05/17/17 13:30 05/17/18 13:29 Vancomycin HCl (Consult) 1 ea UD PRN N/A 05/19/17 14:15 05/22/17 15:00 Tramadol HCl (Ultram Tab) 50 mg Q6H PRN PO 05/19/17 18:45 06/18/17 18:44 05/21/17 07:37 50 MG Objective Vital Signs Date Time Temp Pulse Resp B/P (MAP) Pulse Ox O2 Delivery O2 Flow Rate FiO2 05/22/17 07:38 36.7 70 20 142/43 (76) 98 05/22/17 00:00 Room Air 05/21/17 23:52 36.3 69 18 137/47 (77) 98 Room Air 05/21/17 16:00 100 Room Air 05/21/17 14:56 36.5 65 20 157/50 (85) 100 Room Air Physical Exam General Appearance: no apparent distress, + thin Respiratory/Chest: lungs clear, normal breath sounds, no respiratory distress, no accessory muscle use Cardiovascular: regular rate, rhythm, no edema, no murmur Abdomen: normal bowel sounds, non tender, soft Extremities: normal inspection, no pedal edema Laboratory Results Last 24 Hours Test 05/22/17 07:25 Creatinine 1.70 mg/dl Est Creatinine Clear Calc Drug Dose 17.1 ml/min Estimated GFR () 31.1 Estimated GFR (Non- 26.8 Assessment and Plan This is an 86 year old female with a PMH of anxiety, CKD stage 4, anemia of renal disease, SIADH, recurrent falls - presents with dizziness, generalized weakness and found to have UTI Enterococcal UTI patient has been treated with Vancomycin x 3 days, no longer on abx. Villegas catheter was removed on 05/21, but re-inserted due to retention Will continue Villegas use for another few days PT/OT - plan for rehab discharge; patient would like to go home, but this is unsafe due to her multiple falls Chest Pain - resolved patient presents with chest pain, has had multiple admissions cardiology w/up done as outpatient; unlikely coronary artery disease more likely related to anxiety - continue Buspar, Ativan PRN, Remeron CKD stage 3-4 creatinine at 1.7, at baseline avoid nephrotoxic agents when able SIADH - chronic Na around 134, around baseline DVT ppx heparin FULL CODE
[2017-05-22 15:02] VITALS: BP 147/52; PULSE 82; TEMP 37; O2SAT 99
[2017-05-22] MEDS: ATORVASTATIN 10 MG TAB PO SCH (20:03)
[2017-05-22] MEDS: MIRTAZAPINE TAB 15 MG TAB PO SCH (20:04)
[2017-05-22] MEDS: LORAZEPAM 1 MG TAB PO PRN (20:07)
[2017-05-22 23:53] VITALS: BP 122/66; PULSE 67; TEMP 37; O2SAT 96
[2017-05-23] MEDS: HEPARIN SOD 5000 UNIT/0.5 ML CARP SQ SCH ×2 (05:59→13:35)
[2017-05-23] MEDS: LEVOTHYROXINE 88 MCG TAB PO SCH (06:00)
[2017-05-23 07:12] LABS: HEMATOCRIT 27.8 % (37-47); MEAN CELL VOLUME 101.8 fL (80-100); MEAN CORPUSCULAR HEMOGLOBIN 34.1 pg (25-34); MEAN CORPUSCULAR HGB CONC 33.5 g/dl (32-36); MEAN PLATELET VOLUME 9.2 fL (7.4-10.4); PLATELET COUNT 142 K/uL (130-400); RED BLOOD COUNT 2.73 M/uL (4.2-5.4)
[2017-05-23 07:40] VITALS: BP 106/50; PULSE 66; TEMP 36.4; O2SAT 99
[2017-05-23 07:45] LABS: BUN/CREATININE RATIO 20.9 (10-20); CALCIUM 8.9 mg/dl (8.5-10.1); CREATININE 2.2 mg/dl (0.60-1.20)
[2017-05-23 08:00] VITALS: O2SAT 99
[2017-05-23] MEDS: RANITIDINE HCL 150 MG TAB PO SCH (08:46)
[2017-05-23] MEDS: ASPIRIN 81 MG ECTAB PO SCH (08:46)
[2017-05-23] MEDS: NIFEdipine 30 MG CR TAB PO SCH (08:46)
[2017-05-23] MEDS: PANTOprazole SOD 40 MG TAB PO SCH (08:47)
[2017-05-23] MEDS: METOPROLOL TARTRATE 25 MG TAB PO SCH (08:47)
[2017-05-23] MEDS: DOCUSATE SODIUM 100 MG CAP PO SCH (08:48)
[2017-05-23] MEDS: FERROUS SULFATE 325 MG TAB PO SCH (08:48)
[2017-05-23] MEDS: MAGNESIUM OXIDE 400 MG TAB PO SCH (08:48)
[2017-05-23] MEDS ORDERED: SODIUM CHLORIDE 0.9% 500ML 500 ML IV ONE (09:15)
--- NOTE | 2017-05-23 09:23 | Progress Note ---
Subjective Date of Service: May 23, 2017. Subjective Pt evaluation today including: conversation w/ patient, physical exam, lab review, review of studies, review of inpatient medication list Saw/examined the patient in room 253 c/o diarrhea; usually after eating - no nausea/vomiting +breathing status improved +anxious Problem List Medical Problems: (1) Abdominal pain Status: Acute (2) Abdominal pain Status: Acute (3) Acute on chronic renal insufficiency Status: Acute (4) Anxiety Status: Chronic (5) Bilateral pleural effusion Status: Acute (6) Chronic hyponatremia Status: Acute (7) Chronic kidney disease Status: Acute (8) Chronic renal insufficiency Status: Acute (9) Closed head injury Status: Acute (10) Constipation Status: Acute (11) Constipation Status: Acute (12) Constipation Status: Acute (13) Constipation Status: Acute (14) Decreased urine output Status: Acute (15) Degenerative arthritis of cervical spine Status: Acute (16) Dehydration Status: Acute (17) Dehydration Status: Acute (18) Dehydration Status: Acute (19) Dehydration Status: Acute (20) Dehydration Status: Acute (21) Depression Status: Acute (22) Diarrhea Status: Acute (23) Elevated serum creatinine Status: Acute (24) Failure to thrive Status: Acute (25) Fall Status: Acute (26) Fall Status: Acute (27) Generalized weakness Status: Acute (28) Generalized weakness Status: Acute (29) Generalized weakness Status: Acute (30) Generalized weakness Status: Acute (31) Heart palpitations Status: Acute (32) Hypomagnesemia Status: Acute (33) Hyponatremia Status: Acute (34) Hyponatremia Status: Acute (35) Hyponatremia Status: Acute (36) Hyponatremia Status: Acute (37) Hyponatremia Status: Acute (38) Hyponatremia Status: Acute (39) Leg weakness Status: Acute (40) Multiple complaints Status: Acute (41) New onset atrial flutter Status: Acute (42) Orthostatic hypotension Status: Acute (43) Orthostatic hypotension Status: Acute (44) Palpitations Status: Chronic (45) Pericardial effusion Status: Acute (46) Pneumonia involving left lung Status: Acute (47) Precordial chest pain Status: Acute (48) Precordial chest pain Status: Acute (49) Premature ventricular contractions Status: Acute (50) Premature ventricular contractions Status: Acute (51) PVC's (premature ventricular contractions) Status: Acute (52) Renal insufficiency Status: Acute (53) Ribs, multiple fractures Status: Acute (54) Sore neck Status: Acute (55) Symptomatic anemia Status: Acute (56) Symptoms involving urinary system Status: Acute (57) Symptoms involving urinary system Status: Acute (58) Urinary retention Status: Acute (59) UTI (urinary tract infection) Status: Acute (60) Weakness Status: Acute (61) Weakness Status: Acute (62) Weakness Status: Acute (63) Weakness Status: Acute (64) Weakness Status: Acute Review of Systems Respiratory: No cough, No sputum, No shortness of breath, No dyspnea on exertion Cardiac: No chest pain, No edema, No palpitations Abdomen: + diarrhea, No pain, No nausea, No vomiting Medications Current Inpatient Medications Medications (Trade) Dose Ordered Sig/Jassi Route Start Time Stop Time Status Last Admin Dose Admin Heparin Sodium (Porcine) (Heparin Sq 5000 Unit/0.5ml) 5,000 unit Q8 SQ 05/17/17 08:00 06/16/17 07:59 05/21/17 22:30 5,000 UNIT Acetaminophen (Tylenol Tab) 650 mg Q4H PRN PO 05/17/17 05:30 06/16/17 05:29 05/19/17 18:35 650 MG Ondansetron HCl (Zofran Inj) 4 mg Q6H PRN IV 05/17/17 05:30 06/16/17 05:29 05/17/17 17:47 4 MG Nitroglycerin (Nitrostat Tab) 0.4 mg UD PRN SL 05/17/17 05:30 06/16/17 05:29 Morphine Sulfate (MoRPHine SULFATE INJ) 2 mg Q30M PRN IV 05/17/17 05:30 05/31/17 05:29 Aspirin (Ecotrin Tab) 81 mg QAM PO 05/17/17 09:00 06/16/17 08:59 05/23/17 08:46 81 MG Polyethylene (Miralax Powder Packet) 17 gm DAILY PRN PO 05/17/17 05:30 06/16/17 05:29 05/19/17 13:36 17 GM Atorvastatin Calcium (Lipitor Tab) 10 mg HS PO 05/17/17 21:00 06/16/17 20:59 05/22/17 20:03 10 MG Bumetanide (Bumex Tab) 0.5 mg QAM PO 05/17/17 09:00 06/16/17 08:59 Future Hold 05/22/17 09:06 0.5 MG Buspirone HCl (Buspar Tab) 5 mg DAILY PO 05/17/17 09:00 06/16/17 08:59 05/23/17 08:47 5 MG Docusate Sodium (coLACE CAP) 100 mg BID PO 05/17/17 09:00 06/16/17 08:59 05/22/17 09:06 100 MG Ferrous Sulfate (Feosol Tab) 325 mg BID PO 05/17/17 09:00 06/16/17 08:59 05/23/17 08:48 325 MG Levothyroxine Sodium (Synthroid Tab) 88 mcg DAILYBB PO 05/18/17 06:00 06/17/17 05:59 05/23/17 06:00 88 MCG Lorazepam (Ativan Tab) 1 mg Q6 PRN PO 05/17/17 06:45 06/16/17 06:44 05/22/17 20:07 1 MG Magnesium Oxide (Mag-Ox Tab) 400 mg QAM PO 05/17/17 09:00 06/16/17 08:59 05/23/17 08:48 400 MG Metoprolol Tartrate (Lopressor Tab) 12.5 mg BID PO 05/17/17 09:00 06/16/17 08:59 05/23/17 08:47 12.5 MG Mirtazapine (Remeron Tab) 15 mg HS PO 05/17/17 21:00 06/16/17 20:59 05/22/17 20:04 15 MG Nifedipine (Procardia Xl Tab) 30 mg DAILY PO 05/17/17 09:00 06/16/17 08:59 05/23/17 08:46 30 MG Pantoprazole Sodium (Protonix Tab) 40 mg DAILY PO 05/17/17 09:00 06/16/17 08:59 05/23/17 08:47 40 MG Ranitidine HCl (zANTac TAB) 150 mg DAILY PO 05/17/17 09:00 06/16/17 08:59 05/23/17 08:46 150 MG Miscellaneous (Iv Fluids Completed) 1 ea PRN PRN N/A 05/17/17 13:30 05/17/18 13:29 Tramadol HCl (Ultram Tab) 50 mg Q6H PRN PO 05/19/17 18:45 06/18/17 18:44 05/21/17 07:37 50 MG Loperamide HCl (Imodium Cap) 4 mg NOW STAT PO 05/23/17 09:09 05/23/17 09:10 UNV Objective Vital Signs Date Time Temp Pulse Resp B/P (MAP) Pulse Ox O2 Delivery O2 Flow Rate FiO2 05/23/17 07:40 36.4 66 18 106/50 (68) 99 05/23/17 00:00 Room Air 05/22/17 23:53 37.0 67 16 122/66 (84) 96 Room Air 05/22/17 16:00 Room Air 05/22/17 15:02 37.0 82 20 147/52 (83) 99 Physical Exam General Appearance: no apparent distress Respiratory/Chest: no respiratory distress, no accessory muscle use Cardiovascular: regular rate, rhythm Abdomen: non tender, soft, + abnormal bowel sounds (+hyperactive) Neurologic/Psychiatric: no motor/sensory deficits, alert, + pertinent finding ( +anxious) Skin: normal color Laboratory Results Last 24 Hours Test 05/23/17 06:57 White Blood Count 4.90 K/uL Red Blood Count 2.73 M/uL Hemoglobin 9.3 g/dL Hematocrit 27.8 % Mean Corpuscular Volume 101.8 fL Mean Corpuscular Hemoglobin 34.1 pg Mean Corpuscular Hemoglobin Concent 33.5 g/dl RDW Standard Deviation 50.6 fL RDW Coefficient of Variation 13.7 % Platelet Count 142 K/uL Mean Platelet Volume 9.2 fL Sodium Level 131 mmol/L Potassium Level 4.0 mmol/L Chloride Level 98 mmol/L Carbon Dioxide Level 24 mmol/L Anion Gap 9.0 mmol/L Blood Urea Nitrogen 46 mg/dl Creatinine 2.20 mg/dl Est Creatinine Clear Calc Drug Dose 13.2 ml/min Estimated GFR () 22.8 Estimated GFR (Non- 19.6 BUN/Creatinine Ratio 20.9 Random Glucose 88 mg/dl Calcium Level 8.9 mg/dl Assessment and Plan This is an 86 year old female with a PMH of anxiety, CKD stage 4, anemia of renal disease, SIADH, recurrent falls - presents with dizziness, generalized weakness and found to have UTI Enterococcal UTI patient has been treated with Vancomycin x 3 days, no longer on abx. Villegas catheter was removed on 05/21, but re-inserted due to retention Will continue Villegas use for another few days PT/OT - plan for rehab discharge; patient would like to go home, but this is unsafe due to her multiple falls Diarrhea C. diff is negative possibly side effect to antibiotics will give Imodium Chest Pain - resolved patient presents with chest pain, has had multiple admissions cardiology w/up done as outpatient; unlikely coronary artery disease more likely related to anxiety - continue Buspar, Ativan PRN, Remeron CKD stage 3-4 creatinine at 1.7, at baseline avoid nephrotoxic agents when able creatinine up to 2.2; hold Bumex, give 500mL bolus recheck PRP on Thursday or Thursday of next week SIADH - chronic Na around 134, around baseline DVT ppx heparin FULL CODE
[2017-05-23] MEDS ORDERED: LOPERAMIDE HCL 2 MG CAP PO ONE (09:30)
--- NOTE | 2017-05-23 09:57 | Discharge Instructions ---
Discharge Instructions Date of Service May 23, 2017. Admission Reason for Admission: Chest Pain Discharge Discharge Diagnosis / Problem: Anxiety, Urinary Tract Infection, Diarrhea Discharge Goals Goal(s): Decrease discomfort, Improve function, Diagnostic testing, Therapeutic intervention Activity Recommendations Activity Level: Up Ad Lisseth Therapies: Physical Therapy, Occupational Therapy Lifting Limitations: none Exercise/Sports Limitations: none Shower/Bathe: no limitations . Additional Information Patient informed of condition: Yes Advance Directives: No DNR: No Level of Care: Acute Rehab Communicable Disease: No Prognosis: Stable Villegas Catheter: Yes Instructions / Follow-Up Instructions / Follow-Up [facility] will monitor your diarrhea episodes - they can give Imodium as needed for the diarrhea Villegas catheter to stay in place until you get to [facility] - they can decide when to remove the catheter; likely around 1-2 days Repeat blood work (to check kidney function) in 3-4 days Current Hospital Diet Patient's current hospital diet: AHA Diet (Heart Healthy), Renal Diet Discharge Diet Recommended Diet: AHA Diet (Heart Healthy), Renal Diet Pending Studies Studies pending at discharge: no Medical Emergencies . Who to Call and When: Medical Emergencies: If at any time you feel your situation is an emergency, please call 911 immediately. . Non-Emergent Contact Non-Emergency issues call your: Primary Care Provider . . "Provider Documentation" section prepared by Shawn Moeller. . Core Measure Problem Core Measures: None
--- NOTE | 2017-05-23 10:03 | Discharge Summary ---
Discharge Summary Date of Service May 23, 2017. Discharge Summary Admission Date: May 18, 2017 at 18:07 Discharge Date: May 23, 2017 [facility] Principal Diagnosis: Diarrhea UTI Chest pain secondary to Anxiety Medication Reconciliation Continued Medications: Aspirin (Aspirin Ec) 81 Mg Tab 81 MG PO DAILY Atorvastatin (Lipitor) 10 Mg Tab 10 MG PO HS, TAB Bumetanide (Bumex) 1 Mg Tab 0.5 MG PO QAM, TAB Buspirone HCl (Buspirone HCl) 5 Mg Tab 5 MG PO DAILY, #30 Docusate Sodium (Docusate Sodium) 100 Mg Cap 100 MG PO BID for 7 Days, #14 CAP Ferrous Sulfate (Ferrous Sulfate) 325 Mg Tab 325 MG PO BID, TAB "USUALLY FORGETS SECOND DOSE". Levothyroxine Sodium (Synthroid) 88 Mcg Tab 88 MCG PO DAILY, TAB Lorazepam (Ativan) 1 Mg Tab 1 MG PO Q6 PRN for Anxiety Magnesium Oxide (Mag-Ox) 400 Mg Tab 400 MG PO QAM Metoprolol Tartrate (Lopressor) (Lopressor) 25 Mg Tab 12.5 MG PO BID, TAB Mirtazapine (Remeron) 15 Mg Tab 15 MG PO HS, 3 Refills Nifedipine (Nifedipine Er) 30 Mg Tab 30 MG PO DAILY, 5 Refills Pantoprazole (Protonix) 40 Mg Tab 40 MG PO DAILY, TAB Ranitidine (Zantac) 150 Mg Tab 150 MG PO DAILY Admission Information HPI (per Admitting provider): 86 yo F with severe anxiety presents to the ER with reports of dizziness. She woke up dizzy/lightheaded and cannot tell me much else. She was reporting chest pain to the ER physician which was the reason for admission, and she was given some nitro and now has no pain. She cannot describe the chest pain to me or tell me much else regarding history of any chest pain recently as she is so focused on saying how her kidneys are not going to work, she won't be able to make water and she is going to . Much of the conversation was this back and forth with her daughter at the bedside telling her that no, she wasn't going to . When I asked about how her anxiety medications are working, the daughter states not well at all. She is currently on Buspar 5mg daily and PRN Lorazepam which she does not take much at all. I inquired further into the patient's ability to urinate recently which appeared to be normal prior to sleep last night. She also denies any dysuria, hematuria, flank pain, fevers, chills, urinary urgency or incontinence. Her daughter says she has a tendency to have UTIs. ROS is otherwise negative. The patient appears to be fixated on the fact that her kidneys "are not going to make water" and "I'm going to . Physical Exam (per Admitting): General Appearance: WD/WN, no apparent distress, + pertinent finding ( frequently falling asleep and then will wake up and repeat things indicating some emotional distress) Head: normocephalic, atraumatic Eyes: normal inspection, PERRL, sclerae normal ENT: hearing grossly normal, pharynx normal Neck: supple, no JVD, trachea midline Respiratory/Chest: lungs clear, normal breath sounds, no respiratory distress, no accessory muscle use Cardiovascular: regular rate, rhythm, no edema, no gallop, no JVD, no murmur , normal peripheral pulses Abdomen/GI: normal bowel sounds, soft, no organomegaly, + tenderness ( suprapubic) Back: normal inspection, + pertinent finding (could not get her into position to evaluate her for CVA tenderness) Extremities/Musculoskelatal: normal inspection, no calf tenderness, normal capillary refill, no pedal edema Neurologic/Psych: no motor/sensory deficits, alert, + pertinent finding ( appears anxious) Skin: normal color, warm/dry, no rash Hospital Course This is an 86 year old female with a PMH of anxiety, CKD stage 4, anemia of renal disease, SIADH, recurrent falls - presents with dizziness, generalized weakness and found to have UTI Enterococcal UTI patient has been treated with Vancomycin x 3 days, no longer on abx. Villegas catheter was removed on 05/21, but re-inserted due to retention Will continue Villegas use for another few days PT/OT - plan for rehab discharge; patient would like to go home, but this is unsafe due to her multiple falls Diarrhea C. diff is negative possibly side effect to antibiotics will give Imodium Chest Pain - resolved patient presents with chest pain, has had multiple admissions cardiology w/up done as outpatient; unlikely coronary artery disease more likely related to anxiety - continue Buspar, Ativan PRN, Remeron CKD stage 3-4 creatinine at 1.7, at baseline avoid nephrotoxic agents when able creatinine up to 2.2; hold Bumex, give 500mL bolus recheck PRP on Thursday or Thursday of next week SIADH - chronic Na around 134, around baseline DVT ppx heparin FULL CODE Total time spent on discharge = 40 minutes This includes examination of the patient, discharge planning, medication reconciliation, and communication with other providers. Discharge Instructions [facility] will monitor your diarrhea episodes - they can give Imodium as needed for the diarrhea Villegas catheter to stay in place until [facility] - they can decide when to remove the catheter; likely around 1-2 days Repeat blood work (to check kidney function) in 3-4 days
[2017-05-23 12:33] VITALS: BP 106/50; PULSE 66; TEMP 36.4; O2SAT 99
== END 2017-05-23 14:00 | DRG 690 ==
LOC: C.EDB 04:10 → UNDOADMOB 05:34 → C.2T 05:34 → ENRESERV 05:48 → OBSVTOIN 05-18 16:26 → INTOOBSV 05-18 16:26 → ENRESERV 05-18 17:04 → C.MS2W 05-18 18:07 → C.2T 05-18 18:07 → OBSVTOIN 05-18 18:07
PROVIDERS: ADMIT Hospitalist; ATTEND Family Medicine
DX: N39.0 Urinary tract infection, site not specified (principal); E22.2 Syndrome of inappropriate secretion of antidiuretic hormone; N18.4 Chronic kidney disease, stage 4 (severe); K52.1 Toxic gastroenteritis and colitis; R07.9 Chest pain, unspecified; D63.1 Anemia in chronic kidney disease; F41.9 Anxiety disorder, unspecified; B95.2 Enterococcus as the cause of diseases classified elsewhere; Z82.49 Family history of ischemic heart disease and other diseases of the circulatory system; Z79.82 Long term (current) use of aspirin; T36.95XA Adverse effect of unspecified systemic antibiotic, initial encounter

== ENCOUNTER → 2017-06-23 | Outpatient (CLI) | payer OTHER ==
[~2017-06-23] MED LIST changes: +ATOR10TA82 PO; -ATOR10TA88 PO; -DOCU-94 PO; +DOCU100C31 PO
[2017-06-23 10:08] LABS: BLOOD UREA NITROGEN 53 mg/dl (7-18); BUN/CREATININE RATIO 28.6 (10-20); CALCIUM 9.2 mg/dl (8.5-10.1); CARBON DIOXIDE 28 mmol/L (21-32); CHLORIDE 104 mmol/L (98-107); CREATININE 1.85 mg/dl (0.60-1.20); GLUCOSE 82 mg/dl (70-99); POTASSIUM 4.7 mmol/L (3.5-5.1); SODIUM 140 mmol/L (136-145)
--- NOTE | 2017-06-27 15:16 | CODING QUERY NO DIAGNOSIS ---
TREATMENT RENDERED WITHOUT A DIAGNOSIS To promote full compliance with coding requirements relating to patient care, physician participation is requested in all cases of bow maker production uncertainty. Please assist us with providing a diagnosis/symptom for the test(s) below: A diagnosis/symptom was not documented on your Order. A valid diagnosis/symptom is required to bill all insurances. Please remember that we are unable to code a diagnosis of rule out, probable, possible, questionable, or suspected. DATE OF SERVICE: 06/23/17 Tests that require a diagnosis: * BASIC METABOLIC PROFILE DIAGNOSIS: Provider Signature: Date: [facility] you [facility] Once completed, please kindly fax back to [phone] For questions please call [phone]
== END ==
LOC: C.LABUPNIT 09:17
PROVIDERS: ATTEND Nurse Practitioner Family
DX: N18.4 Chronic kidney disease, stage 4 (severe) (principal); I50.30 Unspecified diastolic (congestive) heart failure

== ENCOUNTER → 2017-06-26 | Outpatient (CLI) | payer OTHER ==
[2017-06-26 08:43] LABS: HEMATOCRIT 27.8 % (37-47); MEAN CELL VOLUME 108.2 fL (80-100); MEAN CORPUSCULAR HEMOGLOBIN 34.6 pg (25-34); MEAN PLATELET VOLUME 10.4 fL (7.4-10.4); PLATELET COUNT 139 K/uL (130-400); RED BLOOD COUNT 2.57 M/uL (4.2-5.4); WHITE BLOOD COUNT 4.93 K/uL (4.8-10.8)
[2017-06-26 08:50] LABS: BLOOD UREA NITROGEN 47 mg/dl (7-18); BUN/CREATININE RATIO 25.7 (10-20); CALCIUM 8.9 mg/dl (8.5-10.1); CARBON DIOXIDE 27 mmol/L (21-32); CHLORIDE 104 mmol/L (98-107); CREATININE 1.83 mg/dl (0.60-1.20); GLUCOSE 77 mg/dl (70-99); POTASSIUM 4.3 mmol/L (3.5-5.1); SODIUM 140 mmol/L (136-145)
== END ==
LOC: C.LABUPNIT 08:13
PROVIDERS: ATTEND Nurse Practitioner Family
DX: M62.81 Muscle weakness (generalized) (principal)

== ENCOUNTER → 2017-06-30 | Outpatient (CLI) | payer OTHER ==
[2017-06-30 10:00] LABS: BASO % 0.5 %; BASO ABS # 0.02 K/uL (0-0.2); EOS % 2.2 %; HEMATOCRIT 26.3 % (37-47); IG% 0.2 %; LYMPH ABS # 1.64 K/uL (1.2-3.4); MEAN CELL VOLUME 106.9 fL (80-100); MEAN CORPUSCULAR HGB CONC 32.7 g/dl (32-36); MEAN PLATELET VOLUME 9.9 fL (7.4-10.4); MONO % 9.8 %; NEUT % 47.3 %; PLATELET COUNT 125 K/uL (130-400); RED BLOOD COUNT 2.46 M/uL (4.2-5.4)
[2017-06-30 10:10] LABS: BLOOD UREA NITROGEN 56 mg/dl (7-18); BUN/CREATININE RATIO 32.7 (10-20); CALCIUM 8.6 mg/dl (8.5-10.1); CARBON DIOXIDE 30 mmol/L (21-32); CHLORIDE 101 mmol/L (98-107); CREATININE 1.71 mg/dl (0.60-1.20); GLUCOSE 82 mg/dl (70-99); POTASSIUM 4.4 mmol/L (3.5-5.1); SODIUM 138 mmol/L (136-145)
[2017-06-30 10:14] LABS: ALB/GLOB RATIO 0.9 (0.9-2); ALKALINE PHOSPHATASE 97 U/L (45-117); ALT/SGPT 26 U/L (12-78); AST/SGOT 18 U/L (15-37)
[2017-06-30 10:28] LABS: COMPLETE YES
== END ==
LOC: C.LABUPNIT 09:06
PROVIDERS: ATTEND Nurse Practitioner Family
DX: N18.4 Chronic kidney disease, stage 4 (severe) (principal); D63.1 Anemia in chronic kidney disease

== ENCOUNTER → 2017-07-15 | Outpatient (CLI) | payer OTHER ==
[~2017-07-15] MED LIST changes: +BSP5 PO; +CFT250 PO; +EPGI10M SQ; +ESCI10TA17 PO; +LCTX PO; +LORA-741 PO; +MIRT30TA PO
--- NOTE | 2017-08-17 12:53 | CODING QUERY NO DIAGNOSIS ---
TREATMENT RENDERED WITHOUT A DIAGNOSIS To promote full compliance with coding requirements relating to patient care, physician participation is requested in all cases of document imaging specialist uncertainty. Please assist us with providing a diagnosis/symptom for the test(s) below: A diagnosis/symptom was not documented on your Order. A valid diagnosis/symptom is required to bill all insurances. Please remember that we are unable to code a diagnosis of rule out, probable, possible, questionable, or suspected. Tests that require a diagnosis: * US CLEAN CATCH DIAGNOSIS: * URINE CULTURE CLEAN CATCH DIAGNOSIS: Provider Signature: Date: Thank you Eileen Javed ttwick Information Management Once completed, please kindly fax back to [phone] For questions please call [phone]
== END ==
LOC: C.LABUPNIT 10:08
PROVIDERS: ATTEND Nurse Practitioner Family
DX: N39.0 Urinary tract infection, site not specified (principal)

== ENCOUNTER → 2017-07-16 | Outpatient (CLI) | payer OTHER ==
[~2017-07-16] MED LIST changes: -BSP5 PO; -CFT250 PO; -EPGI10M SQ; -ESCI10TA17 PO; -LCTX PO; -LORA-741 PO; -MIRT30TA PO
[2017-07-16 08:37] LABS: HEMATOCRIT 26.5 % (37-47); MEAN CELL VOLUME 108.2 fL (80-100); MEAN CORPUSCULAR HEMOGLOBIN 35.1 pg (25-34); MEAN CORPUSCULAR HGB CONC 32.5 g/dl (32-36); MEAN PLATELET VOLUME 10.1 fL (7.4-10.4); PLATELET COUNT 159 K/uL (130-400); RED BLOOD COUNT 2.45 M/uL (4.2-5.4); WHITE BLOOD COUNT 6.03 K/uL (4.8-10.8)
[2017-07-16 08:48] LABS: FERRITIN 647.7 ng/ml (8.0-388.0)
== END | disposition home or self-care (01) ==
LOC: C.LABUPNIT 08:17
PROVIDERS: ATTEND Nurse Practitioner Family
DX: M62.81 Muscle weakness (generalized) (principal)

== ENCOUNTER → 2017-07-30 | Outpatient (CLI) | payer OTHER ==
[~2017-07-30] MED LIST changes: +EPGI10M SQ; +ESCI10TA17 PO; +LORA-741 PO
[2017-07-30 09:05] LABS: HEMATOCRIT 25.5 % (37-47)
== END ==
LOC: C.LABUPNIT 08:23
PROVIDERS: ATTEND Nurse Practitioner Family
DX: M62.81 Muscle weakness (generalized) (principal)

== ENCOUNTER 2017-08-11 08:51 | Emergency (ER) | payer OTHER ==
[~2017-08-11] VITALS: Ht 144.8 cm; Wt 53.8 kg
[~2017-08-11 08:51] MED LIST changes: -ASPI81TA28 PO; -EPGI10M SQ; -ESCI10TA17 PO; -FERR325T5 PO; -LORA-741 PO; -MAGN400T6 PO; -METO25TA56 PO; -NIFE1TAB53 PO; +RANI150T85 PO; -ZNTT/150 PO
[2017-08-11 08:58] VITALS: TEMP 36.6; Ht 144.8 cm; Wt 53.8 kg
[2017-08-11 09:03] VITALS: O2SAT 95
[2017-08-11] MEDS ORDERED: LORA-741 PO (09:36)
[2017-08-11] MEDS ORDERED: ESCI10TA17 PO (09:36)
[2017-08-11 09:45] LABS: BASO % 0.6 %; BASO ABS # 0.03 K/uL (0-0.2); EOS % 4.9 %; EOS ABS # 0.23 K/uL (0-0.5); HEMATOCRIT 33.4 % (37-47); HEMOGLOBIN 11.3 g/dL (12.0-16.0); IG# 0.01 K/uL (0.00-0.02); LYMPH % 39.8 %; LYMPH ABS # 1.86 K/uL (1.2-3.4); MEAN CORPUSCULAR HEMOGLOBIN 35.2 pg (25-34); MEAN CORPUSCULAR HGB CONC 33.8 g/dl (32-36); MEAN PLATELET VOLUME 9.5 fL (7.4-10.4); MONO % 11.3 %; MONO ABS # 0.53 K/uL (0.11-0.59); NEUT % 43.2 %; NEUT ABS # 2.01 K/uL (1.4-6.5); PLATELET COUNT 272 K/uL (130-400); RED CELL DISTRIBUTION WIDTH SD 49.4 fL (36.4-46.3); WHITE BLOOD COUNT 4.67 K/uL (4.8-10.8)
[2017-08-11 09:46] LABS: INR 0.9 (0.9-1.1); PTT PATIENT 24.3 SECONDS (21.0-31.0)
--- NOTE | 2017-08-11 09:49 | DIAGNOSTIC IMAGING REPORT ---
CHEST ONE VIEW PORTABLE CLINICAL HISTORY: Fever. Sepsis. Chest discomfort. COMPARISON STUDY: Chest radiograph May 17, 2017. FINDINGS: Lung volumes are normal. There is no pneumothorax or pleural effusion. Mild linear bibasilar opacities suggest atelectasis. There is no consolidation or evidence of pulmonary edema. A skin fold projects over the left chest. Mild cardiomegaly is unchanged. Widening of the right paratracheal stripe is unchanged and likely due to normal vessels. IMPRESSION: No acute cardiopulmonary findings. Electronically signed by: Hayder Barber M.D. 08/11/2017 9:47 AM Dictated Date/Time: 08/11/2017 9:46 AM
[2017-08-11 10:02] LABS: BLOOD UREA NITROGEN 35 mg/dl (7-18); CARBON DIOXIDE 25 mmol/L (21-32); CREATININE 1.48 mg/dl (0.60-1.20); GLUCOSE 94 mg/dl (70-99); LIPASE 222 U/L (73-393); POTASSIUM 4.5 mmol/L (3.5-5.1); SODIUM 130 mmol/L (136-145)
[2017-08-11 10:12] LABS: CKMB < 0.5 ng/ml (0.5-3.6)
--- NOTE | 2017-08-11 10:18 | EMERGENCY ROOM VISIT NOTE ---
History Report prepared by Unique: Harjeet Gaston Under the Supervision of: Dr. Leonardo Bennett D.O. First contact with patient: 08:54 Stated Complaint: CHEST DISCOMFORT/ANXIETY History of Present Illness The patient is a 86 year old female who presents to the Emergency Room with complaints of heart palpations that occurred this morning. At this time, the patient informed her daughter that her heart felt like it was beating out of her chest. Her daughter then called EMS to evaluate the patient. Upon arrival, the patient was in atrial flutter at 75, but resolved to sinus rhythm on her own. She denies any significant pain at this time, but notes she has a minimal chest discomfort. She denies any other abnormal symptoms at this time. She took Aspirin at home [employer]CHIE[employer]. Source of History: patient Onset: this morning Position: other (Heart) Symptom Intensity: mild Quality: other (Palpitations) Timing: resolved Associated Symptoms: + chest pain (Discomfort, no significant pain) Note: She denies any other abnormal symptoms at this time. Review of Systems See HPI for pertinent positives & negatives. A total of 10 systems reviewed and were otherwise negative. Past Medical & Surgical Medical Problems: (1) Anemia, chronic disease (2) Anxiety (3) Chest pain (4) CKD (chronic kidney disease), stage IV (5) Dizziness (6) FRANCES (generalized anxiety disorder) (7) GERD (gastroesophageal reflux disease) (8) H/O echocardiogram (9) HLD (hyperlipidemia) (10) HTN (hypertension) (11) Hypothyroidism (12) Major depressive disorder, recurrent, moderate (13) Palpitations (14) SIADH (syndrome of inappropriate ADH production) Surgical Problems: (1) Hx of appendectomy (2) Hx of cholecystectomy (3) Hx of dilation and curettage (4) Status post total hip replacement, left Family History FHx: heart disease Hypertension Social History Smoking Status: Never Smoker Alcohol Use: none Drug Use: none Marital Status: Housing Status: lives with family Occupation Status: retired Current/Historical Medications Scheduled Aspirin (Aspirin Ec), 81 MG PO DAILY Atorvastatin (Lipitor), 10 MG PO HS Bumetanide (Bumex), 0.5 MG PO QAM Docusate Sodium (Docusate Sodium), 100 MG PO BID Epoetin Rafael (Procrit), 10,000 UNITS SQ Q14D Escitalopram (Lexapro), 10 MG PO DAILY Ferrous Sulfate (Ferrous Sulfate), 325 MG PO BID Levothyroxine Sodium (Synthroid), 88 MCG PO DAILY Lorazepam (Ativan), 0.5 MG PO BID Magnesium Oxide (Mag-Ox), 400 MG PO QAM Metoprolol Tartrate (Lopressor) (Lopressor), 12.5 MG PO BID Mirtazapine (Remeron), 30 MG PO HS Nifedipine (Nifedipine Er), 30 MG PO DAILY Pantoprazole (Protonix), 40 MG PO DAILY Ranitidine (Zantac), 150 MG PO DAILY Allergies Coded Allergies: Penicillins (Verified Allergy, Intermediate, HIVES, 08/11/17) Iron Sucrose (Verified Adverse Reaction, Mild, n&v, abd pain, 08/11/17) Physical Exam Vital Signs Date Time Temp Pulse Resp B/P (MAP) Pulse Ox O2 Delivery O2 Flow Rate FiO2 08/11/17 11:11 77 18 129/55 99 08/11/17 09:46 73 20 132/50 100 Room Air 08/11/17 09:08 77 08/11/17 09:03 95 Room Air 08/11/17 08:58 36.6 74 20 158/46 95 Physical Exam CONSTITUTIONAL/VITAL SIGNS: Reviewed / noted above. GENERAL: Non-toxic in appearance. INTEGUMENTARY: Warm, dry, and [place]. HEAD: Normocephalic. EYES: without scleral icterus or trauma. ENT/OROPHARYNX: clear and moist. LYMPHADENOPATHY/NECK: Is supple without lymphadenopathy or meningismus. RESPIRATORY: Lungs clear and equal. CARDIOVASCULAR: Regular rate and rhythm. GI/ABDOMEN: Soft and nontender. No organomegaly or pulsatile mass. No rebound or guarding. Normal bowel sounds. EXTREMITIES: Warm and well perfused. BACK: No CVA tenderness. NEUROLOGICAL: Intact without focal deficits. PSYCHIATRIC: normal affect. MUSCULOSKELETAL: Normally developed with good muscle tone. Medical Decision & Procedures ER Provider Diagnostic Interpretation: Radiology results as stated below per my review and radiologist interpretation: CHEST ONE VIEW PORTABLE CLINICAL HISTORY: Fever. Sepsis. Chest discomfort. COMPARISON STUDY: Chest radiograph May 17, 2017. FINDINGS: Lung volumes are normal. There is no pneumothorax or pleural effusion. Mild linear bibasilar opacities suggest atelectasis. There is no consolidation or evidence of pulmonary edema. A skin fold projects over the left chest. Mild cardiomegaly is unchanged. Widening of the right paratracheal stripe is unchanged and likely due to normal vessels. IMPRESSION: No acute cardiopulmonary findings. Electronically signed by: Hayder Barber M.D. 08/11/2017 9:47 AM Dictated Date/Time: 08/11/2017 9:46 AM Laboratory Results 08/11/17 09:15 Red Blood Count 3.21, Mean Corpuscular Volume 104.0, Mean Corpuscular Hemoglobin 35.2, Mean Corpuscular Hemoglobin Concent 33.8, Mean Platelet Volume 9.5, Neutrophils (%) (Auto) 43.2, Lymphocytes (%) (Auto) 39.8, Monocytes (%) ( Auto) 11.3, Eosinophils (%) (Auto) 4.9, Basophils (%) (Auto) 0.6, Neutrophils # (Auto) 2.01, Lymphocytes # (Auto) 1.86, Monocytes # (Auto) 0.53, Eosinophils # ( Auto) 0.23, Basophils # (Auto) 0.03 08/11/17 09:15 Test 08/11/17 09:15 White Blood Count 4.67 K/uL (4.8-10.8) Red Blood Count 3.21 M/uL (4.2-5.4) Hemoglobin 11.3 g/dL (12.0-16.0) Hematocrit 33.4 % (37-47) Mean Corpuscular Volume 104.0 fL (80-100) Mean Corpuscular Hemoglobin 35.2 pg (25-34) Mean Corpuscular Hemoglobin Concent 33.8 g/dl (32-36) Platelet Count 272 K/uL (130-400) Mean Platelet Volume 9.5 fL (7.4-10.4) Neutrophils (%) (Auto) 43.2 % Lymphocytes (%) (Auto) 39.8 % Monocytes (%) (Auto) 11.3 % Eosinophils (%) (Auto) 4.9 % Basophils (%) (Auto) 0.6 % Neutrophils # (Auto) 2.01 K/uL (1.4-6.5) Lymphocytes # (Auto) 1.86 K/uL (1.2-3.4) Monocytes # (Auto) 0.53 K/uL (0.11-0.59) Eosinophils # (Auto) 0.23 K/uL (0-0.5) Basophils # (Auto) 0.03 K/uL (0-0.2) RDW Standard Deviation 49.4 fL (36.4-46.3) RDW Coefficient of Variation 13.0 % (11.5-14.5) Immature Granulocyte % (Auto) 0.2 % Immature Granulocyte # (Auto) 0.01 K/uL (0.00-0.02) Prothrombin Time 9.9 SECONDS (9.0-12.0) Prothromb Time International Ratio 0.9 (0.9-1.1) Activated Partial Thromboplast Time 24.3 SECONDS (21.0-31.0) Partial Thromboplastin Ratio 0.9 Anion Gap 7.0 mmol/L (3-11) Est Creatinine Clear Calc Drug Dose 19.2 ml/min Estimated GFR () 36.8 Estimated GFR (Non- 31.7 BUN/Creatinine Ratio 23.6 (10-20) Calcium Level 9.0 mg/dl (8.5-10.1) Total Creatine Kinase 113 U/L (26-192) Creatine Kinase MB < 0.5 ng/ml (0.5-3.6) Creatine Kinase MB Ratio (0-3.0) Troponin I < 0.015 ng/ml (0-0.045) Lipase 222 U/L (73-393) Thyroid Stimulating Hormone (TSH) 2.690 uIu/ml (0.300-4.500) Laboratory results as stated above per my review. ECG Indication: palpitations Rate (beats per minute): 70 Rhythm: sinus rhythm Findings: no acute ischemic change, no ectopy Comparison ECG Date: May 19, 2017 Change: no significant change ED Course 0854: Previous medical records were reviewed. The patient was evaluated in room B9. A complete history and physical examination was performed. 1031: On reevaluation, the patient is resting. I discussed the results and findings with the patient. She verbalized agreement of the treatment plan. She was discharged home. Medical Decision Differentials considered include acute myocardial infarction, acute coronary syndrome, myocarditis, pericarditis, pericardial effusions /tamponade, esophageal perforation, thoracic aortic dissection, pulmonary embolism, pneumonia, pneumothorax, pancreatitis, shingles, acute cholecystitis, and perforated abdominal viscus. This is an 86-year-old female who presents to the ED with a chief complaint of chest pain and anxiety. The patient states that she felt like her heart was pounding this morning. When EMS arrived they thought she was in atrial flutter with a heart rate of 75. During transport she "converted" spontaneously into a normal sinus rhythm. The patient does did not feel the heart pounding any longer. Her 12-lead EKG here reveals a sinus rhythm at a rate of 70 without acute injury. Her exam was unremarkable. She is in no distress. CBC and complete metabolic panel were unremarkable. Troponin was negative. Chest x-ray did not show acute disease. The patient has a symptomatically this time. She is felt to be stable for discharge. Medication Reconcilliation Current Medication List: was personally reviewed by me Blood Pressure Screening Patient's blood pressure: Elevated blood pressure Blood pressure disposition: Referred to PCP Impression Primary Impression: Palpitations Scribe Attestation The scribe's documentation has been prepared under my direction and personally reviewed by me in its entirety. I confirm that the note above accurately reflects all work, treatment, procedures, and medical decision making performed by me. Departure Information Dispostion Home / Self-Care Referrals Cosme Gill (PCP) Forms IMPORTANT VISIT INFORMATION Patient Instructions My [facility] Additional Instructions See your doctor this week for recheck. Return for any concerns.
[2017-08-11 11:11] VITALS: BP 129/55; PULSE 77; O2SAT 99
[2017-08-18] MEDS ORDERED: LCTX PO (10:51)
[2017-08-18] MEDS ORDERED: CFT250 PO (10:51)
[2017-08-28] MEDS ORDERED: BSP5 PO (11:57)
[2018-02-22] MEDS ORDERED: ATV/1 PO (07:55)
[2018-02-22] MEDS ORDERED: BUSP-8 PO (07:55)
[2018-02-22] MEDS ORDERED: RANI300T2 PO (07:55)
[2018-02-22] MEDS ORDERED: POLY335025 PO (07:55)
[2018-02-22] MEDS ORDERED: SACC250C3 PO (14:23)
[2018-02-22] MEDS ORDERED: CIPR-255 PO (14:23)
[2018-02-24] MEDS ORDERED: METO25TA56 PO (06:05)
[2018-02-24] MEDS ORDERED: MIRT15TA3 PO (07:06)
[2018-02-24] MEDS ORDERED: [UNRECOGNIZED DRUG - CODE] PO (07:55)
[2018-02-24] MEDS ORDERED: CHOL1CAP67 PO (07:55)
[2018-02-24] MEDS ORDERED: EPGI10M SQ (09:36)
[2018-02-24] MEDS ORDERED: ASPI81TA28 PO (09:48)
[2018-02-24] MEDS ORDERED: SODI1TAB PO (12:47)
[2018-02-24] MEDS ORDERED: MAGN400T6 PO (14:39)
[2018-02-24] MEDS ORDERED: FERR325T5 PO (16:09)
[2018-02-24] MEDS ORDERED: BSP/5 PO (16:56)
[2018-02-24] MEDS ORDERED: LORA-741 PO (16:56)
[2018-02-24] MEDS ORDERED: CITA10TA8 PO (16:56)
[2018-02-24] MEDS ORDERED: BSP/10 PO (17:00)
[2018-02-24] MEDS ORDERED: PANT40TA2 PO (17:00)
[2018-02-24] MEDS ORDERED: RANI150T2 PO (17:00)
[2018-02-24] MEDS ORDERED: BMX1 PO (17:06)
[2018-02-24] MEDS ORDERED: LPT10 PO (17:06)
[2018-02-24] MEDS ORDERED: LEVO88TA3 PO (17:06)
[2018-02-24] MEDS ORDERED: MRLP527 PO (17:09)
[2018-02-24] MEDS ORDERED: DOCU100C31 PO (17:12)
[2018-02-24] MEDS ORDERED: NIFE30TA86 PO (17:35)
[2018-02-26] MEDS ORDERED: DAPT500I IV (11:50)
[2018-02-26] MEDS ORDERED: CIPR250T3 PO (11:50)
== END 2017-08-11 11:12 | disposition home or self-care (01) ==
LOC: EDBD 08:51 → C.EDB 08:54
DX: R00.2 Palpitations (principal); I12.9 Hypertensive chronic kidney disease with stage 1 through stage 4 chronic kidney disease, or unspecified chronic kidney disease; N18.4 Chronic kidney disease, stage 4 (severe); E78.5 Hyperlipidemia, unspecified; E03.9 Hypothyroidism, unspecified; D63.1 Anemia in chronic kidney disease; K21.9 Gastro-esophageal reflux disease without esophagitis; F32.9 Major depressive disorder, single episode, unspecified; F41.1 Generalized anxiety disorder; Z90.49 Acquired absence of other specified parts of digestive tract; Z96.642 Presence of left artificial hip joint; Z79.82 Long term (current) use of aspirin; Z79.899 Other long term (current) drug therapy; Z88.0 Allergy status to penicillin; Z88.8 Allergy status to other drugs, medicaments and biological substances; Z82.49 Family history of ischemic heart disease and other diseases of the circulatory system

== ENCOUNTER 2017-08-15 10:22 | Inpatient (IN) | payer OTHER ==
[~2017-08-15] VITALS: Ht 144.8 cm; Wt 52.0 kg
[~2017-08-15 10:22] MED LIST changes: +ASPI81TA28 PO; -ATV/1 PO; -BSP/5 PO; +EPGI10M SQ; +ESCI10TA17 PO; +FERR325T5 PO; +LORA-741 PO; +MAGN400T6 PO; +METO25TA56 PO; +NIFE1TAB53 PO; -RANI150T85 PO; +ZNTT/150 PO
[2017-08-15 11:56] LABS: BASO % 0.5 %; BASO ABS # 0.03 K/uL (0-0.2); EOS % 6.4 %; EOS ABS # 0.37 K/uL (0-0.5); HEMOGLOBIN 11.2 g/dL (12.0-16.0); IG# 0.02 K/uL (0.00-0.02); LYMPH % 31.8 %; LYMPH ABS # 1.83 K/uL (1.2-3.4); MEAN CELL VOLUME 103.4 fL (80-100); MEAN CORPUSCULAR HEMOGLOBIN 35.1 pg (25-34); MEAN CORPUSCULAR HGB CONC 33.9 g/dl (32-36); MEAN PLATELET VOLUME 9.6 fL (7.4-10.4); MONO % 6.3 %; MONO ABS # 0.36 K/uL (0.11-0.59); NEUT % 54.7 %; NEUT ABS # 3.14 K/uL (1.4-6.5); PLATELET COUNT 208 K/uL (130-400); RED CELL DISTRIBUTION WIDTH CV 12.9 % (11.5-14.5); WHITE BLOOD COUNT 5.75 K/uL (4.8-10.8)
[2017-08-15 12:12] LABS: PTT PATIENT 25.7 SECONDS (21.0-31.0)
--- NOTE | 2017-08-15 12:17 | DIAGNOSTIC IMAGING REPORT ---
CT HEAD WITHOUT CONTRAST (CT) CLINICAL HISTORY: Change in mental status. Possible acute hemorrhage. COMPARISON STUDY: 05/17/2017 TECHNIQUE: Axial CT of the brain is performed from the vertex to the skull base. IV contrast was not administered for this examination. A dose lowering technique was utilized adhering to the principles of ALARA. CT DOSE: 537.48 mGy.cm FINDINGS: No intra or extra-axial mass lesions are visualized. There is no CT evidence of acute cortical infarction. There is no evidence of midline shift. There is no acute hemorrhage. No calvarial fractures are visualized. There are mild white matter hypodensities likely on a small vessel basis. There is no evidence of pathologic ventricular dilatation. There is no evidence of acute sinusitis IMPRESSION: No acute intracranial findings Electronically signed by: Mauro Sanchez M.D. 08/15/2017 12:15 PM Dictated Date/Time: 08/15/2017 12:14 PM
[2017-08-15] MEDS ORDERED: SODIUM CHLORIDE 0.9% 500ML 500 ML IV STA (12:24)
[2017-08-15 12:39] LABS: ALBUMIN 3.5 gm/dl (3.4-5.0); ALKALINE PHOSPHATASE 121 U/L (45-117); ALT/SGPT 27 U/L (12-78); AST/SGOT 24 U/L (15-37); BLOOD UREA NITROGEN 38 mg/dl (7-18); CALCIUM 9.2 mg/dl (8.5-10.1); CARBON DIOXIDE 28 mmol/L (21-32); CREATININE 1.69 mg/dl (0.60-1.20); GLUCOSE 84 mg/dl (70-99); POTASSIUM 4.5 mmol/L (3.5-5.1); SODIUM 128 mmol/L (136-145); TOTAL PROTEIN 8.1 gm/dl (6.4-8.2)
[2017-08-15] MEDS ORDERED: SULFAMETHOXAZOLE/TRIMETHOPRIM DS 800/160MG TAB PO STA (14:39)
[2017-08-15 15:30] VITALS: O2SAT 98; Ht 144.8 cm; Wt 52.0 kg
--- NOTE | 2017-08-15 15:56 | EMERGENCY ROOM VISIT NOTE ---
History Report prepared by Unique: Harjeet Gaston Under the Supervision of: Dr. Leon Fry M.D. First contact with patient: 10:47 Chief Complaint: DIZZY Stated Complaint: DIZZINESS,LIGHTHEADNESS,WEAKNESS PAIN IN HEAD Nursing Triage Summary: pt reports her heart is skipping since waking this am feels light headed , feels head pressure in occipital area. feels legs are weak History of Present Illness The patient is an 86 year old female who presents to the Emergency Room with complaints of heart palpitations that occurred earlier this morning. She does not know how long they lasted, but describes this sensation as "skips in her heart." She was seen in our ER 4 days ago for the same symptoms and states that they feel similarly to that past episode. Her symptoms have now resolved. When they were present, she was experiencing a posterior headache, lightheadedness, and dizziness. Currently, she is only experiencing some back pain, which is chronic for her. She also complains of generalized weakness. She denies any fevers, shortness of breath, or chest pain. Source of History: patient Onset: earlier this morning Position: other (Heart) Symptom Intensity: mild Quality: other (Palpitations) Timing: resolved Associated Symptoms: + back pain, No chest pain, No SOB Note: When her symptoms were present, she experienced a posterior headache, lightheadedness, and dizziness. She is not having these currently. Review of Systems See HPI for pertinent positives & negatives. A total of 10 systems reviewed and were otherwise negative. Past Medical & Surgical Medical Problems: (1) Anemia, chronic disease (2) Anxiety (3) Chest pain (4) CKD (chronic kidney disease), stage IV (5) Dizziness (6) FRANCES (generalized anxiety disorder) (7) GERD (gastroesophageal reflux disease) (8) H/O echocardiogram (9) HLD (hyperlipidemia) (10) HTN (hypertension) (11) Hypothyroidism (12) Major depressive disorder, recurrent, moderate (13) Palpitations (14) SIADH (syndrome of inappropriate ADH production) Surgical Problems: (1) Hx of appendectomy (2) Hx of cholecystectomy (3) Hx of dilation and curettage (4) Status post total hip replacement, left Family History FHx: heart disease Hypertension Social History Smoking Status: Never Smoker Alcohol Use: none Drug Use: none Marital Status: Housing Status: lives with family Occupation Status: retired Current/Historical Medications Scheduled Aspirin (Aspirin Ec), 81 MG PO DAILY Atorvastatin (Lipitor), 10 MG PO HS Bumetanide (Bumex), 0.5 MG PO QAM Docusate Sodium (Docusate Sodium), 100 MG PO BID Epoetin Rafael (Procrit), 10,000 UNITS SQ Q14D Escitalopram (Lexapro), 10 MG PO DAILY Ferrous Sulfate (Ferrous Sulfate), 325 MG PO BID Levothyroxine Sodium (Synthroid), 88 MCG PO DAILY Lorazepam (Ativan), 0.5 MG PO BID Magnesium Oxide (Mag-Ox), 400 MG PO QAM Metoprolol Tartrate (Lopressor) (Lopressor), 12.5 MG PO BID Mirtazapine (Remeron), 30 MG PO HS Nifedipine (Nifedipine Er), 30 MG PO DAILY Pantoprazole (Protonix), 40 MG PO DAILY Ranitidine (Zantac), 150 MG PO DAILY Allergies Coded Allergies: Penicillins (Verified Allergy, Intermediate, HIVES, 08/15/17) Iron Sucrose (Verified Adverse Reaction, Mild, n&v, abd pain, 08/15/17) Physical Exam Vital Signs Date Time Temp Pulse Resp B/P (MAP) Pulse Ox O2 Delivery O2 Flow Rate FiO2 08/15/17 15:36 58 20 158/39 98 Room Air 08/15/17 13:45 64 18 168/59 100 Room Air 08/15/17 11:37 66 16 162/47 97 Room Air 73 140/44 88 132/45 08/15/17 11:03 69 08/15/17 10:31 36.4 75 18 135/56 94 Room Air Physical Exam Constitutional: Vital signs reviewed. Eyes: Pupils are equal round reactive to light. Conjunctiva are noninjected. ENT: Pharynx is clear without erythema or exudate. Mucous membranes are moist. Neck supple without meningeal signs. Respiratory: Clear to auscultation bilaterally. Breath sounds are equal bilaterally. Cardiovascular: Regular rate and rhythm. Occasional extrasystole. GI: Soft, nondistended and nontender. Bowel sounds are present. Musculoskeletal: No peripheral edema. No lower extremity tenderness. Integumentary: No cyanosis. Neurological: The patient is awake and alert. No focal deficits. Psychiatric: Anxious affect. Medical Decision & Procedures ER Provider Diagnostic Interpretation: Radiology results as stated below per my review and the radiologist's interpretation: CT HEAD WITHOUT CONTRAST (CT) CLINICAL HISTORY: Change in mental status. Possible acute hemorrhage. COMPARISON STUDY: 05/17/2017 TECHNIQUE: Axial CT of the brain is performed from the vertex to the skull base. IV contrast was not administered for this examination. A dose lowering technique was utilized adhering to the principles of ALARA. CT DOSE: 537.48 mGy.cm FINDINGS: No intra or extra-axial mass lesions are visualized. There is no CT evidence of acute cortical infarction. There is no evidence of midline shift. There is no acute hemorrhage. No calvarial fractures are visualized. There are mild white matter hypodensities likely on a small vessel basis. There is no evidence of pathologic ventricular dilatation. There is no evidence of acute sinusitis IMPRESSION: No acute intracranial findings Electronically signed by: Mauro Sanchez M.D. 08/15/2017 12:15 PM Dictated Date/Time: 08/15/2017 12:14 PM Laboratory Results 08/15/17 11:35 Red Blood Count 3.19, Mean Corpuscular Volume 103.4, Mean Corpuscular Hemoglobin 35.1, Mean Corpuscular Hemoglobin Concent 33.9, Mean Platelet Volume 9.6, Neutrophils (%) (Auto) 54.7, Lymphocytes (%) (Auto) 31.8, Monocytes (%) ( Auto) 6.3, Eosinophils (%) (Auto) 6.4, Basophils (%) (Auto) 0.5, Neutrophils # ( Auto) 3.14, Lymphocytes # (Auto) 1.83, Monocytes # (Auto) 0.36, Eosinophils # ( Auto) 0.37, Basophils # (Auto) 0.03 08/15/17 11:35 Test 08/15/17 11:08 08/15/17 11:35 Urine Color YELLOW Urine Appearance CLEAR (CLEAR) Urine pH 5.5 (4.5-7.5) Urine Specific [place] 1.011 (1.000-1.030) Urine Protein NEG (NEG) Urine Glucose (UA) NEG (NEG) Urine Ketones NEG (NEG) Urine Occult Blood NEG (NEG) Urine Nitrite NEG (NEG) Urine Bilirubin NEG (NEG) Urine Urobilinogen NEG (NEG) Urine Leukocyte Esterase MODERATE (NEG) Urine WBC (Auto) 10-30 /hpf (0-5) Urine RBC (Auto) 0-4 /hpf (0-4) Urine Hyaline Casts (Auto) 1-5 /lpf (0-5) Urine Epithelial Cells (Auto) 0-5 /lpf (0-5) Urine Bacteria (Auto) NEG (NEG) White Blood Count 5.75 K/uL (4.8-10.8) Red Blood Count 3.19 M/uL (4.2-5.4) Hemoglobin 11.2 g/dL (12.0-16.0) Hematocrit 33.0 % (37-47) Mean Corpuscular Volume 103.4 fL (80-100) Mean Corpuscular Hemoglobin 35.1 pg (25-34) Mean Corpuscular Hemoglobin Concent 33.9 g/dl (32-36) Platelet Count 208 K/uL (130-400) Mean Platelet Volume 9.6 fL (7.4-10.4) Neutrophils (%) (Auto) 54.7 % Lymphocytes (%) (Auto) 31.8 % Monocytes (%) (Auto) 6.3 % Eosinophils (%) (Auto) 6.4 % Basophils (%) (Auto) 0.5 % Neutrophils # (Auto) 3.14 K/uL (1.4-6.5) Lymphocytes # (Auto) 1.83 K/uL (1.2-3.4) Monocytes # (Auto) 0.36 K/uL (0.11-0.59) Eosinophils # (Auto) 0.37 K/uL (0-0.5) Basophils # (Auto) 0.03 K/uL (0-0.2) RDW Standard Deviation 49.0 fL (36.4-46.3) RDW Coefficient of Variation 12.9 % (11.5-14.5) Immature Granulocyte % (Auto) 0.3 % Immature Granulocyte # (Auto) 0.02 K/uL (0.00-0.02) Prothrombin Time 10.0 SECONDS (9.0-12.0) Prothromb Time International Ratio 1.0 (0.9-1.1) Activated Partial Thromboplast Time 25.7 SECONDS (21.0-31.0) Partial Thromboplastin Ratio 1.0 Anion Gap 7.0 mmol/L (3-11) Est Creatinine Clear Calc Drug Dose 16.6 ml/min Estimated GFR () 31.3 Estimated GFR (Non- 27.0 BUN/Creatinine Ratio 22.7 (10-20) Calcium Level 9.2 mg/dl (8.5-10.1) Magnesium Level 2.2 mg/dl (1.8-2.4) Total Bilirubin 0.2 mg/dl (0.2-1) Direct Bilirubin mg/dl (0-0.2) Aspartate Amino Transf (AST/SGOT) 24 U/L (15-37) Alanine Aminotransferase (ALT/SGPT) 27 U/L (12-78) Alkaline Phosphatase 121 U/L (45-117) Troponin I < 0.015 ng/ml (0-0.045) Total Protein 8.1 gm/dl (6.4-8.2) Albumin 3.5 gm/dl (3.4-5.0) Thyroid Stimulating Hormone (TSH) 2.430 uIu/ml (0.300-4.500) Free Thyroxine 1.26 ng/dl (0.80-1.60) Laboratory results as reviewed by me. Medications Administered Medications (Trade) Dose Ordered Sig/Jassi Route Start Time Stop Time Status Last Admin Dose Admin Sodium Chloride 500 ml @ 999 mls/hr Q31M STAT IV 08/15/17 12:24 08/15/17 12:54 DC 08/15/17 12:44 999 MLS/HR Trimethoprim/ Sulfamethoxazole (Septra Ds 800/ 160MG Tab) 1 tab NOW STAT PO 08/15/17 14:39 08/15/17 14:40 DC 08/15/17 14:55 1 TAB ECG Indication: palpitations Rate (beats per minute): 71 Rhythm: sinus rhythm Findings: 1st degree AV block, PVC Comparison ECG Date: 05/19/17 Change: PVCs are new, but otherwise no significant change. ED Course 1047: The patient was evaluated in room C9. A complete history and physical exam was performed. 1224: Ordered Sodium Chloride 500 ml @ 999 mls/hr IV 1230: I updated her at this time. The nurse informed me that she has been complaining of back pain. Her pain is located to the left mid back and has been there for over a year. She does not feel the pain is different in anyway. 1337: Upon reevaluation, the patient still feels weak. She is unsure whether or not she wants to stay in the hospital. I offered her treatment as an inpatient. She informed me that her hyponatremia is chronic. We will feed her and see how she feels afterward. 1437: Her weakness persists. She also informed me that a couple nights ago, she thought she saw a man with long hair and a guido in her curtains that she thought was Rob. She has not seen anything like that since. She agrees to hospitalization. [facility] Service. 1439: Ordered Trimethoprim/Sulfamethoxazole 1 tab PO. I spoke with Dr. Aguilar of [facility]. We discussed the patient and her results. The patient will be further evaluated by him. Medical Decision This is an 86-year-old female presents with generalized weakness, palpitations and headache. Differential diagnosis includes PVCs, dysrhythmia, metabolic derangement, infection, migraine headache, anxiety, intracranial hemorrhage. I did perform a limited focused review of portions of the patient's old chart on the electronic medical record. The patient was seen in our ER 4 days ago for heart palpitations. There was some question on whether or not she was in atrial flutter per EMS with a heart rate of 75. She was sinus rhythm here. I did evaluate the patient as noted above. The patient is presenting with palpitations. She also has generalized weakness and a posterior headache. Orthostatic vital signs were obtained. She does have a significant drop in her blood pressure upon standing. IV access was established. The patient was placed on a continuous director perioperative. She does have PVCs on occasion. There is no evidence of dysrhythmia on the monitor. She was given normal saline IV. I did order and personally review the patient's 12-lead EKG and chest x-ray as described above. I did order and review the patient's blood work as noted in the electronic medical record. Her creatinine is elevated. She does have hyponatremia. She does state she has had hyponatremia in the past. She also has anemia. I did order a CT of the head. I did review the images myself as well as the radiology report as described above. Urinalysis does show signs of infection. She does state that she has had urinary frequency recently. I did treated with Bactrim. A urine culture was sent. I did reassess the patient multiple times. She continues to have generalized weakness and does not feel well enough to go home. I did discuss the case with the hospitalist and senior case manager. Medication Reconcilliation Current Medication List: was personally reviewed by me Blood Pressure Screening Patient's blood pressure: Normal blood pressure Blood pressure disposition: Did not require urgent referral Consults Time Called: 1435 Consulting Physician: Dr. Lauren Tracy Hospitalist Returned Call: [phone] We discussed the patient and her results. The patient will be further evaluated by him. Impression Primary Impression: Hyponatremia Additional Impressions: Generalized weakness PVC (premature ventricular contraction) Dehydration UTI (urinary tract infection) Scribe Attestation The scribe's documentation has been prepared under my direct and personally reviewed by me in its entirety. I confirm that the note above accurately reflects all work, treatment, procedures, and medical decision making performed by me. Departure Information Dispostion Being Evaluated By Hospitalist Referrals Yogesh Quevedo III, M.D. (PCP) Patient Instructions My [facility] Problem Qualifiers Additional Impressions: UTI (urinary tract infection) Urinary tract infection type: acute cystitis Hematuria presence: without hematuria Qualified Codes: N30.00 - Acute cystitis without hematuria
[2017-08-15] MEDS ORDERED: CEFTRIAXONE SOD INJ 1 GM in DEXTROSE 5% ADD-VANTAGE 50ML 50 ML IV SCH (16:15)
[2017-08-15] MEDS ORDERED: ALUMINUM/MAGNESIUM/SIMETH (MAALOX MAX) 30 ML UDC PO PRN (16:15)
[2017-08-15] MEDS ORDERED: EPOETIN ALFA 10,000 UNITS/ML VIAL SQ SCH (16:15)
[2017-08-15] MEDS ORDERED: POLYETHYLENE (MIRALAX) 17 GM PACK PO PRN (16:15)
[2017-08-15] MEDS ORDERED: ONDANSETRON INJ 2 MG/ML 2 ML VIAL IV PRN (16:15)
[2017-08-15] MEDS: ACETAMINOPHEN 325 MG TAB PO PRN (16:53)
[2017-08-15 17:15] VITALS: BP 154/45; PULSE 62; TEMP 36.5; O2SAT 100
[2017-08-15] MEDS: D5W AND NSS 1,000 ML IV SCH (17:30)
--- NOTE | 2017-08-15 18:31 | HISTORY & PHYSICAL EXAMINATION ---
DATE OF ADMISSION: 08/15/2017 CHIEF COMPLAINT: Dizziness, not feeling well. HISTORY OF PRESENT ILLNESS: This 86-year-old female with past medical history significant for anxiety, chronic kidney disease stage IV, history of falls, history of anemia of chronic renal failure, osteoarthrosis, presents with not feeling well and dizzy since today morning had some head pressure in the back of the head. Denies any fever, chills. Denies any cough. Seeing okay, normal hearing. Denies any sore throat or difficulty swallowing. Denies any chest pain or shortness of breath or cough. A couple days ago, she had sort of nausea, vomiting and abdominal pain at that time, but that got resolved now. She feels like not functioning right. She states she moved her bowels yesterday and was normal. No burning micturition, no blood in the urine or stools. Currently, resting comfortably and hemodynamically stable. ALLERGIES:Iron AND PENICILLIN. PAST MEDICAL HISTORY: As mentioned above. PAST SURGICAL HISTORY: Appendectomy, dental surgeries, dilatation and curettage, cholecystectomy and hysterectomy. MEDICATIONS AT HOME: The patient currently on Lopressor 12.5 mg p.o. b.i.d., Procrit every 14 days, MiraLax daily p.r.n., nifedipine ER 30 mg daily, levothyroxine 88 mcg p.o. daily, magnesium oxide 241 mg p.o. daily, Lipitor 10 mg p.o. daily, Protonix 40 mg p.o. daily, Bumex 0.5 mg in the morning, Zantac 150 mg p.o. in the morning, ferrous sulfate 325 mg p.o. b.i.d., aspirin 81 mg p.o. daily, Ativan 0.5 mg p.o. b.i.d., Tylenol 650 mg p.o. 8 hours p.r.n., Remeron 30 mg p.o. at bedtime, Colace 100 mg p.o. b.i.d., Lexapro 10 mg p.o. daily. FAMILY HISTORY: Significant for mother had RI, hypertension and thyroid disorder; . SOCIAL HISTORY: , currently living with her daughter. No tobacco use, no alcohol use, no drug abuse. REVIEW OF SYMPTOMS: As per HPI. Rest of review of systems negative. PHYSICAL EXAMINATION: GENERAL: The patient is overall frail, not in distress. VITAL SIGNS: Temperature 36.4, pulse 64, respiratory rate 18, blood pressure 158/39, oxygen 98% room air. HEENT: No pallor, no icterus. Pupils equal, round, and reactive to light. NECK: No JVD, no neck masses, no carotid bruits. CARDIOVASCULAR: S1, S2 heard, regular rate and rhythm, no murmur, no gallop. RESPIRATORY SYSTEM: Normal AP diameter. No accessory muscle use. No wheezing, no crackles. ABDOMEN: Soft, bowel sounds present. Mild diffuse discomfort. No guarding, no rigidity. CENTRAL NERVOUS SYSTEM: Cranial nerves II-XII grossly intact. Nonfocal. EXTREMITIES: No erythema Pedal edema present. LABS: WBC 5.75 hemoglobin 11.2, hematocrit 33, platelets 208. Sodium 128, potassium 4.5, chloride 93, CO2 28, BUN 30, creatinine 1.6, serum glucose 84. Calcium 9.2, magnesium 2.2, total bilirubin 0.2, AST 24, ALT 27, alkaline phosphatase 121. Troponin 1 less than 0.015. TSH 2.4, free T4 1.26. PT 10, INR 1, PTT 25.7. Urinalysis positive for leukocyte esterase. IMAGING DATA: CT of the head, no acute intracranial abnormalities seen. EKG: Sinus rhythm with first degree AV block with PVCs at a rate of 71. No acute ST changes seen. ASSESSMENT AND PLAN: This is an 86-year-old female who presents with possible urinary tract infection. 1. Dizziness and not feeling well, possibly secondary to urinary tract infection. She was started on Cipro. Follow the cultures. Monitor on the medical floor. PT and OT prior to discharge. The patient lives with her daughter. Ambulates with help of a cane or a walker at home. 2. Chronic kidney disease, stage IV. Baseline creatinine 1.8 to 2.0 creatinine of 1.6. Will follow the labs. 3. Anemia of chronic kidney disease. Hemoglobin 11.2. On Procrit shots. 4. History of hypertension, on nifedipine,Lopressor and and diuretics. We will follow the blood pressure in the hospital. 5. History of gastroesophageal reflux, on Zantac and Protonix. 6. History of anxiety and depression, mirtazapine, Lexapro and Ativan. 7. Deep venous thrombosis prophylaxis. Heparin subQ and sequential compression devices. 8. Disposition: Admit to medical floor . Expect to discharge home band follow with family doctor. PT and OT prior to discharge. Social Service to help with discharge planning. Level 1 full code. MTDD
[2017-08-15] MEDS: LORAZEPAM 0.5 MG TAB PO SCH (19:55)
[2017-08-15] MEDS: DOCUSATE SODIUM 100 MG CAP PO SCH (19:56)
[2017-08-15] MEDS: CIPROFLOXACIN 250 MG TAB PO SCH (19:57)
[2017-08-15] MEDS: HEPARIN SOD 5000 UNIT/0.5 ML CARP SQ SCH (19:59)
[2017-08-15] MEDS: ATORVASTATIN 10 MG TAB PO SCH (21:58)
[2017-08-15] MEDS: METOPROLOL TARTRATE 25 MG TAB PO SCH (21:59)
[2017-08-15] MEDS: MIRTAZAPINE TAB 15 MG TAB PO SCH (21:59)
[2017-08-15] MEDS ORDERED: SIMETHICONE 80 MG CHEW PO ONE (22:14)
[2017-08-15] MEDS ORDERED: SIMETHICONE 80 MG CHEW PO PRN (22:15)
[2017-08-15 23:14] VITALS: BP 175/61; PULSE 59; TEMP 36.5; O2SAT 99
[2017-08-16] VITALS (7 sets, daily range): BP systolic 142–167; BP diastolic 53–82; PULSE 58–89; TEMP 36.1–36.5; O2SAT 94–100
[2017-08-16] MEDS: LEVOTHYROXINE 88 MCG TAB PO SCH (06:04)
[2017-08-16] MEDS: ACETAMINOPHEN 325 MG TAB PO PRN (06:35)
[2017-08-16 06:40] LABS: BASO % 0.7 %; BASO ABS # 0.04 K/uL (0-0.2); EOS % 5.5 %; HEMATOCRIT 28.2 % (37-47); HEMOGLOBIN 9.4 g/dL (12.0-16.0); LYMPH % 42.5 %; LYMPH ABS # 2.31 K/uL (1.2-3.4); MEAN CELL VOLUME 104.8 fL (80-100); MEAN CORPUSCULAR HEMOGLOBIN 34.9 pg (25-34); MEAN CORPUSCULAR HGB CONC 33.3 g/dl (32-36); MONO % 5.9 %; MONO ABS # 0.32 K/uL (0.11-0.59); NEUT % 45.4 %; NEUT ABS # 2.47 K/uL (1.4-6.5); PLATELET COUNT 160 K/uL (130-400); RED CELL DISTRIBUTION WIDTH CV 13.2 % (11.5-14.5); RED CELL DISTRIBUTION WIDTH SD 50.6 fL (36.4-46.3); WHITE BLOOD COUNT 5.44 K/uL (4.8-10.8)
[2017-08-16 07:14] LABS: CALCIUM 8.5 mg/dl (8.5-10.1); CREATININE 1.78 mg/dl (0.60-1.20); POTASSIUM 5.2 mmol/L (3.5-5.1)
[2017-08-16] MEDS: LORAZEPAM 0.5 MG TAB PO SCH ×2 (07:22→19:24)
[2017-08-16] MEDS: BUMETANIDE 1 MG TAB PO SCH (07:24)
[2017-08-16] MEDS: CIPROFLOXACIN 250 MG TAB PO SCH ×2 (07:25→19:24)
[2017-08-16] MEDS: DOCUSATE SODIUM 100 MG CAP PO SCH ×2 (07:26→19:24)
[2017-08-16] MEDS: ASPIRIN 81 MG ECTAB PO SCH (07:26)
[2017-08-16] MEDS: FERROUS SULFATE 325 MG TAB PO SCH ×2 (07:27→17:42)
[2017-08-16] MEDS: ESCITALOPRAM OXALATE 10 MG TAB PO SCH (07:28)
[2017-08-16] MEDS: METOPROLOL TARTRATE 25 MG TAB PO SCH ×2 (07:28→19:25)
[2017-08-16] MEDS: MAGNESIUM OXIDE 400 MG TAB PO SCH (07:29)
[2017-08-16] MEDS: NIFEdipine 30 MG CR TAB PO SCH (07:30)
[2017-08-16] MEDS: PANTOprazole SOD 40 MG TAB PO SCH (07:31)
[2017-08-16] MEDS: RANITIDINE HCL 150 MG TAB PO SCH (07:32)
[2017-08-16] MEDS: HEPARIN SOD 5000 UNIT/0.5 ML CARP SQ SCH ×2 (08:23→19:33)
[2017-08-16] MEDS: D5W AND NSS 1,000 ML IV SCH (14:43)
--- NOTE | 2017-08-16 18:37 | Progress Note ---
Internal Med Progress Note Date of Service: Aug 16, 2017. Provider Documentation: SUBJECTIVE: resting comfortably says feeling better today afebrile denies any pain no nausea moved bowels yesterday has mild abdominal soreness OBJECTIVE: Vital Signs-as noted below Exam: General-alert and oriented. Not in distress. old and frail ENT-Hard of hearing Neck-no neck masses supple Lungs-cta b/l no crackles present no wheezing present Heart-S1 and S2 heard regular rate and rthym, no murmurs Abdomen-Soft bowel sounds present mild lower abdomen soreness not distended Extremities-No pedal edema present no erythema Neuro-alert and awake moves extremities Lab data as noted below. ASSESSMENT & PLAN: : This is an 86-year-old female who presents with possible urinary tract infection. 1. Dizziness and not feeling well, possibly secondary to urinary tract infection. Started on Cipro. Gm negative bacilli in cultures follow final cx.. 2. Chronic kidney disease, stage IV. Baseline creatinine 1.8 to 2.0 creatinine of 1.7. Will follow the labs. 3. Hyperkalemia' mild k 5.2 repeat 4.9 will changed diet to renal diet. 4. Anemia of chronic kidney disease. Hemoglobin 11.2. On Procrit shots. 5. Hyponatremia hx of SIADH.Presented with Na of 127. started on gentle fluids. Na 131 today. will stop fluids. 6. History of hypertension, on nifedipine,Lopressor and and diuretics. We will follow the blood pressure in the hospital. 7. History of gastroesophageal reflux, on Zantac and Protonix. 8. History of anxiety and depression, mirtazapine, Lexapro and Ativan. 9. Deep venous thrombosis prophylaxis. Heparin subQ and sequential compression devices. DISPOSITION to be determined pt/ot prior to discharge social service for d/c planning Vital Signs: Date Time Temp Pulse Resp B/P (MAP) Pulse Ox O2 Delivery O2 Flow Rate FiO2 08/16/17 16:00 Room Air 08/16/17 15:43 36.4 89 20 150/55 (86) 99 Room Air 08/16/17 08:00 Room Air 08/16/17 07:54 36.5 58 20 157/60 (92) 98 08/16/17 01:51 150/75 (100) 08/16/17 00:00 100 Room Air 08/15/17 23:14 36.5 59 16 175/61 (99) 99 Room Air Lab Results: Results Past 24 Hours Test 08/16/17 05:51 08/16/17 16:22 Range/Units White Blood Count 5.44 4.8-10.8 K/uL Red Blood Count 2.69 4.2-5.4 M/uL Hemoglobin 9.4 12.0-16.0 g/dL Hematocrit 28.2 37-47 % Mean Corpuscular Volume 104.8 80-100 fL Mean Corpuscular Hemoglobin 34.9 25-34 pg Mean Corpuscular Hemoglobin Concent 33.3 32-36 g/dl Platelet Count 160 130-400 K/uL Mean Platelet Volume 10.0 7.4-10.4 fL Neutrophils (%) (Auto) 45.4 % Lymphocytes (%) (Auto) 42.5 % Monocytes (%) (Auto) 5.9 % Eosinophils (%) (Auto) 5.5 % Basophils (%) (Auto) 0.7 % Neutrophils # (Auto) 2.47 1.4-6.5 K/uL Lymphocytes # (Auto) 2.31 1.2-3.4 K/uL Monocytes # (Auto) 0.32 0.11-0.59 K/uL Eosinophils # (Auto) 0.30 0-0.5 K/uL Basophils # (Auto) 0.04 0-0.2 K/uL RDW Standard Deviation 50.6 36.4-46.3 fL RDW Coefficient of Variation 13.2 11.5-14.5 % Immature Granulocyte % (Auto) 0.0 % Immature Granulocyte # (Auto) 0.00 0.00-0.02 K/uL Sodium Level 131 136-145 mmol/L Potassium Level 5.2 4.9 3.5-5.1 mmol/L Chloride Level 100 98-107 mmol/L Carbon Dioxide Level 26 21-32 mmol/L Anion Gap 5.0 3-11 mmol/L Blood Urea Nitrogen 39 7-18 mg/dl Creatinine 1.78 0.60-1.20 mg/dl Est Creatinine Clear Calc Drug Dose 15.7 ml/min Estimated GFR () 29.4 Estimated GFR (Non- 25.4 BUN/Creatinine Ratio 22.1 10-20 Random Glucose 77 70-99 mg/dl Calcium Level 8.5 8.5-10.1 mg/dl Magnesium Level 2.3 1.8-2.4 mg/dl
[2017-08-16] MEDS: MIRTAZAPINE TAB 15 MG TAB PO SCH (19:24)
[2017-08-16] MEDS: ATORVASTATIN 10 MG TAB PO SCH (19:24)
[2017-08-16] MEDS ORDERED: NITROGLYCERIN 0.4 MG SL PER TAB CHARGE SL STA (19:31)
[2017-08-16] MEDS ORDERED: TRAMADOL HCL 50 MG TAB PO PRN (19:45)
[2017-08-16] MEDS ORDERED: PROCHLORPERAZINE INJ 5 MG in SYRINGE 4 ML IV PRN (19:45)
[2017-08-16] MEDS ORDERED: HYDROmorphone INJ 1 MG/ML SYR IV PRN (19:45)
[2017-08-16 20:04] LABS: BASO ABS # 0.04 K/uL (0-0.2); EOS % 7.1 %; HEMOGLOBIN 10.1 g/dL (12.0-16.0); LYMPH % 49.8 %; LYMPH ABS # 2.09 K/uL (1.2-3.4); MEAN CELL VOLUME 104.9 fL (80-100); MEAN CORPUSCULAR HEMOGLOBIN 35.3 pg (25-34); MEAN CORPUSCULAR HGB CONC 33.7 g/dl (32-36); MEAN PLATELET VOLUME 9.8 fL (7.4-10.4); MONO % 6.9 %; MONO ABS # 0.29 K/uL (0.11-0.59); NEUT % 35.2 %; NEUT ABS # 1.48 K/uL (1.4-6.5); PLATELET COUNT 163 K/uL (130-400); RED CELL DISTRIBUTION WIDTH CV 12.9 % (11.5-14.5); RED CELL DISTRIBUTION WIDTH SD 49.3 fL (36.4-46.3)
--- NOTE | 2017-08-16 20:09 | DIAGNOSTIC IMAGING REPORT ---
CHEST ONE VIEW PORTABLE CLINICAL HISTORY: Chest pain. COMPARISON STUDY: Chest radiograph January 10, 2008 18. FINDINGS: Skin fold projects over the left chest. Mild cardiomegaly is unchanged. There is no evidence of pulmonary edema. There is no consolidation to suggest pneumonia. Cardiomediastinal silhouette is stable. Widening of the right paratracheal stripe is unchanged. IMPRESSION: No acute cardiopulmonary findings. Electronically signed by: Hayder Barber M.D. 08/16/2017 8:07 PM Dictated Date/Time: 08/16/2017 8:07 PM
[2017-08-16 20:13] LABS: PTT PATIENT 28.7 SECONDS (21.0-31.0)
[2017-08-16 20:26] LABS: ALBUMIN 2.9 gm/dl (3.4-5.0); ALT/SGPT 22 U/L (12-78); BLOOD UREA NITROGEN 38 mg/dl (7-18); CARBON DIOXIDE 25 mmol/L (21-32); CREATININE 1.97 mg/dl (0.60-1.20); GLUCOSE 80 mg/dl (70-99); LIPASE 291 U/L (73-393); POTASSIUM 4.8 mmol/L (3.5-5.1); SODIUM 131 mmol/L (136-145)
[2017-08-16 20:39] LABS: ALKALINE PHOSPHATASE 97 U/L (45-117); AST/SGOT 20 U/L (15-37); TOTAL PROTEIN 6.6 gm/dl (6.4-8.2)
[2017-08-17] VITALS (8 sets, daily range): BP systolic 106–185; BP diastolic 53–73; PULSE 56–73; TEMP 36.4–36.7; O2SAT 96–99
[2017-08-17] MEDS: LEVOTHYROXINE 88 MCG TAB PO SCH (05:04)
[2017-08-17 06:20] LABS: HEMATOCRIT 30.9 % (37-47); HEMOGLOBIN 10.1 g/dL (12.0-16.0); MEAN CELL VOLUME 106.6 fL (80-100); MEAN CORPUSCULAR HEMOGLOBIN 34.8 pg (25-34); MEAN CORPUSCULAR HGB CONC 32.7 g/dl (32-36); MEAN PLATELET VOLUME 10.1 fL (7.4-10.4); PLATELET COUNT 168 K/uL (130-400); RED CELL DISTRIBUTION WIDTH CV 13.1 % (11.5-14.5); RED CELL DISTRIBUTION WIDTH SD 51.4 fL (36.4-46.3); WHITE BLOOD COUNT 5.46 K/uL (4.8-10.8)
[2017-08-17 06:56] LABS: BASO % 0.9 %; BASO ABS # 0.05 K/uL (0-0.2); EOS % 7.1 %; EOS ABS # 0.39 K/uL (0-0.5); IG# 0.01 K/uL (0.00-0.02); LYMPH % 53.1 %; MONO % 7.9 %; MONO ABS # 0.43 K/uL (0.11-0.59); NEUT % 30.8 %; NEUT ABS # 1.68 K/uL (1.4-6.5)
[2017-08-17 06:58] LABS: CALCIUM 8.8 mg/dl (8.5-10.1); CREATININE 1.88 mg/dl (0.60-1.20); POTASSIUM 4.4 mmol/L (3.5-5.1)
[2017-08-17] MEDS: LORAZEPAM 0.5 MG TAB PO SCH ×2 (07:34→20:06)
[2017-08-17] MEDS: PANTOprazole SOD 40 MG TAB PO SCH (07:35)
[2017-08-17] MEDS: RANITIDINE HCL 150 MG TAB PO SCH (07:35)
[2017-08-17] MEDS: METOPROLOL TARTRATE 25 MG TAB PO SCH ×2 (07:35→20:11)
[2017-08-17] MEDS: BUMETANIDE 1 MG TAB PO SCH (07:35)
[2017-08-17] MEDS: ASPIRIN 81 MG ECTAB PO SCH (07:35)
[2017-08-17] MEDS: NIFEdipine 30 MG CR TAB PO SCH (07:35)
[2017-08-17] MEDS: DOCUSATE SODIUM 100 MG CAP PO SCH ×2 (07:35→20:07)
[2017-08-17] MEDS: CIPROFLOXACIN 250 MG TAB PO SCH (07:36)
[2017-08-17] MEDS: MAGNESIUM OXIDE 400 MG TAB PO SCH (07:36)
[2017-08-17] MEDS: ESCITALOPRAM OXALATE 10 MG TAB PO SCH (07:36)
[2017-08-17] MEDS: FERROUS SULFATE 325 MG TAB PO SCH ×2 (07:36→17:16)
[2017-08-17] MEDS: HEPARIN SOD 5000 UNIT/0.5 ML CARP SQ SCH ×2 (07:45→21:07)
--- NOTE | 2017-08-17 16:05 | DIAGNOSTIC IMAGING REPORT ---
KUB CLINICAL HISTORY: Nausea. Abdominal pain. Constipation. COMPARISON STUDY: 01/17/2017 FINDINGS: There is a lumbar scoliosis. There are minimal degenerative changes present. There are postsurgical changes of a total left hip arthroplasty. There is no pathologic bowel dilatation. There are no transition zones indicate bowel obstruction. There are nondilated gas filled colonic loops. IMPRESSION: Nondilated gas-filled right colon. No conventional radiographic evidence of bowel obstruction. Electronically signed by: Mauro Sanchez M.D. 08/17/2017 4:04 PM Dictated Date/Time: 08/17/2017 4:02 PM
--- NOTE | 2017-08-17 17:28 | Progress Note ---
Internal Med Progress Note Date of Service: Aug 17, 2017. Provider Documentation: SUBJECTIVE: complains of abdominal discomfort, nausea and constipation not feeling well today afebrile not ate much today OBJECTIVE: Vital Signs-as noted below Exam: General-alert and oriented. Not in distress. old and frail ENT-Hard of hearing Neck-no neck masses supple Lungs-cta b/l no crackles present no wheezing present Heart-S1 and S2 heard regular rate and rthym, no murmurs Abdomen-Soft bowel sounds present mild lower abdomen soreness not distended Extremities-No pedal edema present no erythema Neuro-alert and awake moves extremities Lab data as noted below. ASSESSMENT & PLAN: : This is an 86-year-old female who presents with possible urinary tract infection. 1. Dizziness and not feeling well, possibly secondary to urinary tract infection. Started on Cipro. Gm negative bacilli in cultures cx gutierrez sensitive klebsiella abx changed to cefuroxime as per pharmacy recommendations to avoid c diff 2. Chronic kidney disease, stage IV. Baseline creatinine 1.8 to 2.0 creatinine of 1.8. Will follow the labs. 3. Hyperkalemia' mild k 5.2 repeat 4.9 will changed diet to renal diet. k 4.4 today 4. Anemia of chronic kidney disease. Hemoglobin 11.2. On Procrit shots. 5. Hyponatremia hx of SIADH.Presented with Na of 127. started on gentle fluids. Na 131 today. stooped fluids. f/u labs 6. Abdominal discomfort constipation? stool softener kub -gas filled non dilated colon simethicone 7. History of hypertension, on nifedipine,Lopressor and and diuretics. We will follow the blood pressure in the hospital. 7. History of gastroesophageal reflux, on Zantac and Protonix. 8. History of anxiety and depression, mirtazapine, Lexapro and Ativan. 9. Deep venous thrombosis prophylaxis. Heparin subQ and sequential compression devices. DISPOSITION to be determined pt/ot recommends snf social service for d/c planning Vital Signs: Date Time Temp Pulse Resp B/P (MAP) Pulse Ox O2 Delivery O2 Flow Rate FiO2 08/17/17 16:47 99 Room Air 08/17/17 15:34 36.7 68 18 173/73 (106) 99 Room Air 08/17/17 11:23 58 96 08/17/17 10:30 73 106/57 (73) 08/17/17 08:00 99 Room Air 08/17/17 07:12 36.4 62 18 185/64 (104) 99 Room Air 08/17/17 00:00 Room Air 08/16/17 23:00 36.1 61 18 162/72 (102) 94 Room Air 08/16/17 20:25 60 18 142/82 (102) 95 Room Air 08/16/17 19:17 36.5 67 16 167/53 (91) 100 Room Air Lab Results: Results Past 24 Hours Test 08/16/17 19:46 08/17/17 05:24 Range/Units White Blood Count 4.20 5.46 4.8-10.8 K/uL Red Blood Count 2.86 2.90 4.2-5.4 M/uL Hemoglobin 10.1 10.1 12.0-16.0 g/dL Hematocrit 30.0 30.9 37-47 % Mean Corpuscular Volume 104.9 106.6 80-100 fL Mean Corpuscular Hemoglobin 35.3 34.8 25-34 pg Mean Corpuscular Hemoglobin Concent 33.7 32.7 32-36 g/dl Platelet Count 163 168 130-400 K/uL Mean Platelet Volume 9.8 10.1 7.4-10.4 fL Neutrophils (%) (Auto) 35.2 30.8 % Lymphocytes (%) (Auto) 49.8 53.1 % Monocytes (%) (Auto) 6.9 7.9 % Eosinophils (%) (Auto) 7.1 7.1 % Basophils (%) (Auto) 1.0 0.9 % Neutrophils # (Auto) 1.48 1.68 1.4-6.5 K/uL Lymphocytes # (Auto) 2.09 2.90 1.2-3.4 K/uL Monocytes # (Auto) 0.29 0.43 0.11-0.59 K/uL Eosinophils # (Auto) 0.30 0.39 0-0.5 K/uL Basophils # (Auto) 0.04 0.05 0-0.2 K/uL RDW Standard Deviation 49.3 51.4 36.4-46.3 fL RDW Coefficient of Variation 12.9 13.1 11.5-14.5 % Immature Granulocyte % (Auto) 0.0 0.2 % Immature Granulocyte # (Auto) 0.00 0.01 0.00-0.02 K/uL Activated Partial Thromboplast Time 28.7 21.0-31.0 SECONDS Partial Thromboplastin Ratio 1.1 Sodium Level 131 131 136-145 mmol/L Potassium Level 4.8 4.4 3.5-5.1 mmol/L Chloride Level 99 97 98-107 mmol/L Carbon Dioxide Level 25 26 21-32 mmol/L Anion Gap 7.0 7.0 3-11 mmol/L Blood Urea Nitrogen 38 39 7-18 mg/dl Creatinine 1.97 1.88 0.60-1.20 mg/dl Est Creatinine Clear Calc Drug Dose 14.2 14.9 ml/min Estimated GFR () 26.0 27.5 Estimated GFR (Non- 22.5 23.8 BUN/Creatinine Ratio 19.1 20.5 10-20 Random Glucose 80 84 70-99 mg/dl Calcium Level 8.0 8.8 8.5-10.1 mg/dl Total Bilirubin 0.2 0.2-1 mg/dl Aspartate Amino Transf (AST/SGOT) 20 15-37 U/L Alanine Aminotransferase (ALT/SGPT) 22 12-78 U/L Alkaline Phosphatase 97 45-117 U/L Troponin I < 0.015 0-0.045 ng/ml Total Protein 6.6 6.4-8.2 gm/dl Albumin 2.9 3.4-5.0 gm/dl Globulin 3.7 2.5-4.0 gm/dl Albumin/Globulin Ratio 0.8 0.9-2 Lipase 291 73-393 U/L Magnesium Level 2.1 1.8-2.4 mg/dl
[2017-08-17] MEDS ORDERED: SIMETHICONE 80 MG CHEW PO ONE (17:30)
[2017-08-17] MEDS: ACETAMINOPHEN 325 MG TAB PO PRN (20:07)
[2017-08-17] MEDS ORDERED: CEFUROXIME AXETIL 250 MG TAB PO SCH (21:00)
[2017-08-17] MEDS: MIRTAZAPINE TAB 15 MG TAB PO SCH (21:12)
[2017-08-17] MEDS: ATORVASTATIN 10 MG TAB PO SCH (21:13)
[2017-08-18] MEDS: LEVOTHYROXINE 88 MCG TAB PO SCH (05:58)
[2017-08-18 06:57] LABS: HEMATOCRIT 27.6 % (37-47); HEMOGLOBIN 9.4 g/dL (12.0-16.0); MEAN CELL VOLUME 104.9 fL (80-100); MEAN CORPUSCULAR HEMOGLOBIN 35.7 pg (25-34); MEAN CORPUSCULAR HGB CONC 34.1 g/dl (32-36); MEAN PLATELET VOLUME 10.2 fL (7.4-10.4); PLATELET COUNT 156 K/uL (130-400); RED CELL DISTRIBUTION WIDTH CV 12.9 % (11.5-14.5); RED CELL DISTRIBUTION WIDTH SD 48.9 fL (36.4-46.3); WHITE BLOOD COUNT 4.41 K/uL (4.8-10.8)
[2017-08-18 07:20] VITALS: BP 177/61; PULSE 63; TEMP 36.5; O2SAT 95
[2017-08-18 07:28] LABS: CALCIUM 8.6 mg/dl (8.5-10.1); CREATININE 1.85 mg/dl (0.60-1.20)
[2017-08-18] MEDS: LORAZEPAM 0.5 MG TAB PO SCH (07:28)
[2017-08-18 07:29] LABS: BASO % 0.9 %; BASO ABS # 0.04 K/uL (0-0.2); EOS % 4.5 %; IG# 0.01 K/uL (0.00-0.02); LYMPH % 50.1 %; LYMPH ABS # 2.21 K/uL (1.2-3.4); MONO % 7.5 %; MONO ABS # 0.33 K/uL (0.11-0.59); NEUT % 36.8 %; NEUT ABS # 1.62 K/uL (1.4-6.5)
[2017-08-18] MEDS: BUMETANIDE 1 MG TAB PO SCH (07:29)
[2017-08-18] MEDS: METOPROLOL TARTRATE 25 MG TAB PO SCH (07:30)
[2017-08-18] MEDS: RANITIDINE HCL 150 MG TAB PO SCH (07:30)
[2017-08-18] MEDS: NIFEdipine 30 MG CR TAB PO SCH (07:31)
[2017-08-18] MEDS: DOCUSATE SODIUM 100 MG CAP PO SCH (07:31)
[2017-08-18] MEDS: ESCITALOPRAM OXALATE 10 MG TAB PO SCH (07:31)
[2017-08-18] MEDS: FERROUS SULFATE 325 MG TAB PO SCH (07:31)
[2017-08-18] MEDS: PANTOprazole SOD 40 MG TAB PO SCH (07:32)
[2017-08-18] MEDS: MAGNESIUM OXIDE 400 MG TAB PO SCH (07:33)
[2017-08-18] MEDS: ASPIRIN 81 MG ECTAB PO SCH (07:33)
[2017-08-18] MEDS: HEPARIN SOD 5000 UNIT/0.5 ML CARP SQ SCH (07:45)
[2017-08-18] MEDS ORDERED: EPOETIN ALFA 10,000 UNITS/ML VIAL SQ SCH (09:00)
[2017-08-18] MEDS ORDERED: BISACODYL 10 MG SUPP PR STA (10:48)
[2017-08-18] MEDS ORDERED: LCTX PO (10:51)
[2017-08-18] MEDS ORDERED: CFT250 PO (10:51)
--- NOTE | 2017-08-18 10:57 | Discharge Instructions ---
Discharge Instructions Date of Service Aug 18, 2017. Admission Reason for Admission: Hyponatremia, Uti Discharge Discharge Diagnosis / Problem: HYPONATREMIA, UTI Discharge Goals Goal(s): Decrease discomfort, Improve function Activity Recommendations Activity Limitations: resume your previous activity . Instructions / Follow-Up Instructions / Follow-Up FOLLOWUP WITH FAMILY DOCTOR Yogesh Ballard ON Aug AT 10:45AM LABS: BMP IN ONE WEEK AND FOLLOW RESULTS WITH FAMILY DOCTOR RENAL DIET. AVOID FOODS WITH HIGH POTASSIUM. Current Hospital Diet Patient's current hospital diet: Regular Diet, Renal Diet Discharge Diet Recommended Diet: Regular Diet, Renal Diet Pending Studies Studies pending at discharge: no Medical Emergencies . Who to Call and When: Medical Emergencies: If at any time you feel your situation is an emergency, please call 911 immediately. . Non-Emergent Contact Non-Emergency issues call your: Primary Care Provider . . "Provider Documentation" section prepared by Rommel Aguilar. . VTE Core Measure Inpt VTE Proph given/why not?: Unfractionated heparin SQ
[2017-08-18] MEDS ORDERED: BISACODYL 5 MG TABEC PO ONE (11:00)
[2017-08-18 11:35] VITALS: BP 153/65; PULSE 57; TEMP 36.8; O2SAT 96
--- NOTE | 2017-08-18 12:17 | Progress Note ---
Internal Med Progress Note Date of Service: Aug 18, 2017. Provider Documentation: SUBJECTIVE: sitting on the chair comfortably says feeling ok' not moved bowels eating ok want to go home afebrile OBJECTIVE: Vital Signs-as noted below Exam: General-alert and oriented. Not in distress. old and frail ENT-Hard of hearing Neck-no neck masses supple Lungs-cta b/l no crackles present no wheezing present Heart-S1 and S2 heard regular rate and rthym, no murmurs Abdomen-Soft bowel sounds present non tender not distended Extremities-No pedal edema present no erythema Neuro-alert and awake moves extremities Lab data as noted below. ASSESSMENT & PLAN: : This is an 86-year-old female who presents with possible urinary tract infection. 1. Dizziness and not feeling well, possibly secondary to urinary tract infection. Started on Cipro. Gm negative bacilli in cultures cx gutierrez sensitive klebsiella abx changed to cefuroxime as per pharmacy recommendations to avoid c diff f/u with pcp 2. Chronic kidney disease, stage IV. Baseline creatinine 1.8 to 2.0 creatinine of 1.8. Will follow the labs. 3. Hyperkalemia' mild k 5.2 repeat 4.9 will changed diet to renal diet. f/u labs with pcp 4. Anemia of chronic kidney disease. Hemoglobin 11.2. On Procrit shots. 5. Hyponatremia hx of SIADH.Presented with Na of 127. started on gentle fluids. Na went to 131. stopped fluids.Again 127 f/u labs with pcp 6. Abdominal discomfort constipation? stool softener kub -gas filled non dilated colon simethicone 7. History of hypertension, on nifedipine,Lopressor and and diuretics. We will follow the blood pressure in the hospital. 7. History of gastroesophageal reflux, on Zantac and Protonix. 8. History of anxiety and depression, mirtazapine, Lexapro and Ativan. discharge home with home health Vital Signs: Date Time Temp Pulse Resp B/P (MAP) Pulse Ox O2 Delivery O2 Flow Rate FiO2 08/18/17 11:35 36.8 57 18 96 Room Air 08/18/17 08:00 Room Air 08/18/17 07:20 36.5 63 18 177/61 (99) 95 Room Air 08/18/17 00:00 Room Air 08/17/17 23:50 36.4 56 16 136/68 (90) 96 Room Air 08/17/17 20:11 68 20 154/53 (86) 08/17/17 16:47 99 Room Air 08/17/17 15:34 36.7 68 18 173/73 (106) 99 Room Air Lab Results: Results Past 24 Hours Test 08/18/17 06:00 Range/Units White Blood Count 4.41 4.8-10.8 K/uL Red Blood Count 2.63 4.2-5.4 M/uL Hemoglobin 9.4 12.0-16.0 g/dL Hematocrit 27.6 37-47 % Mean Corpuscular Volume 104.9 80-100 fL Mean Corpuscular Hemoglobin 35.7 25-34 pg Mean Corpuscular Hemoglobin Concent 34.1 32-36 g/dl Platelet Count 156 130-400 K/uL Mean Platelet Volume 10.2 7.4-10.4 fL Neutrophils (%) (Auto) 36.8 % Lymphocytes (%) (Auto) 50.1 % Monocytes (%) (Auto) 7.5 % Eosinophils (%) (Auto) 4.5 % Basophils (%) (Auto) 0.9 % Neutrophils # (Auto) 1.62 1.4-6.5 K/uL Lymphocytes # (Auto) 2.21 1.2-3.4 K/uL Monocytes # (Auto) 0.33 0.11-0.59 K/uL Eosinophils # (Auto) 0.20 0-0.5 K/uL Basophils # (Auto) 0.04 0-0.2 K/uL RDW Standard Deviation 48.9 36.4-46.3 fL RDW Coefficient of Variation 12.9 11.5-14.5 % Immature Granulocyte % (Auto) 0.2 % Immature Granulocyte # (Auto) 0.01 0.00-0.02 K/uL Sodium Level 127 136-145 mmol/L Potassium Level 5.0 3.5-5.1 mmol/L Chloride Level 95 98-107 mmol/L Carbon Dioxide Level 26 21-32 mmol/L Anion Gap 6.0 3-11 mmol/L Blood Urea Nitrogen 40 7-18 mg/dl Creatinine 1.85 0.60-1.20 mg/dl Est Creatinine Clear Calc Drug Dose 15.2 ml/min Estimated GFR () 28.1 Estimated GFR (Non- 24.2 BUN/Creatinine Ratio 21.8 10-20 Random Glucose 78 70-99 mg/dl Calcium Level 8.6 8.5-10.1 mg/dl Magnesium Level 2.4 1.8-2.4 mg/dl
--- NOTE | 2017-08-18 12:48 | Discharge Summary ---
Discharge Summary Date of Service Aug 18, 2017. Discharge Summary Admission Date: Aug 15, 2017 at 16:14 Discharge Date: Aug 18, 2017 Discharge Disposition: Home with services Principal Diagnosis: dizzy uti Secondary Diagnoses/Problems: for anxiety, chronic kidney disease stage IV, history of falls, history of anemia of chronic renal failure, osteoarthrosis Procedures: CT HEAD: No acute intracranial findings CXR: No acute cardiopulmonary findings. KUB: Nondilated gas-filled right colon. No conventional radiographic evidence of bowel obstruction. Medication Reconciliation New Medications: Lactobacillus Acidophilus (Lactinex) Tab 1 TAB PO BID for 7 Days, TAB Cefuroxime Axetil (Cefuroxime Axetil) 250 Mg Tab 250 MG PO Q24H, #6 TAB Continued Medications: Aspirin (Aspirin Ec) 81 Mg Tab 81 MG PO DAILY Atorvastatin (Lipitor) 10 Mg Tab 10 MG PO HS, TAB Bumetanide (Bumex) 1 Mg Tab 0.5 MG PO QAM, TAB Docusate Sodium (Docusate Sodium) 100 Mg Cap 100 MG PO BID Epoetin Rafael (Procrit) 10,000 [place] 22931 UNITS SQ Q14D Escitalopram (Lexapro) 10 Mg Tab 10 MG PO DAILY Ferrous Sulfate (Ferrous Sulfate) 325 Mg Tab 325 MG PO BID, TAB Levothyroxine Sodium (Synthroid) 88 Mcg Tab 88 MCG PO DAILY, TAB Lorazepam (Ativan) 0.5 Mg Tab 0.5 MG PO BID Magnesium Oxide (Mag-Ox) 400 Mg Tab 400 MG PO QAM Metoprolol Tartrate (Lopressor) (Lopressor) 25 Mg Tab 12.5 MG PO BID, TAB Mirtazapine (Remeron) 15 Mg Tab 30 MG PO HS Nifedipine (Nifedipine Er) 30 Mg Tab 30 MG PO DAILY, 5 Refills Pantoprazole (Protonix) 40 Mg Tab 40 MG PO DAILY, TAB Ranitidine (Zantac) 150 Mg Tab 150 MG PO DAILY Admission Information HPI (per Admitting provider): This 86-year-old female with past medical history significant for anxiety, chronic kidney disease stage IV, history of falls, history of anemia of chronic renal failure, osteoarthrosis, presents with not feeling well and dizzy since today morning had some head pressure in the back of the head. Denies any fever, chills. Denies any cough. Seeing okay, normal hearing. Denies any sore throat or difficulty swallowing. Denies any chest pain or shortness of breath or cough. A couple days ago, she had sort of nausea, vomiting and abdominal pain at that time, but that got resolved now. She feels like not functioning right. She states she moved her bowels yesterday and was normal. No burning micturition, no blood in the urine or stools. Currently, resting comfortably and hemodynamically stable. Physical Exam (per Admitting): GENERAL: The patient is overall frail, not in distress. VITAL SIGNS: Temperature 36.4, pulse 64, respiratory rate 18, blood pressure 158/39, oxygen 98% room air. HEENT: No pallor, no icterus. Pupils equal, round, and reactive to light. NECK: No JVD, no neck masses, no carotid bruits. CARDIOVASCULAR: S1, S2 heard, regular rate and rhythm, no murmur, no gallop. RESPIRATORY SYSTEM: Normal AP diameter. No accessory muscle use. No wheezing, no crackles. ABDOMEN: Soft, bowel sounds present. Mild diffuse discomfort. No guarding, no rigidity. CENTRAL NERVOUS SYSTEM: Cranial nerves II-XII grossly intact. Nonfocal. EXTREMITIES: No erythema Pedal edema present. Hospital Course : This is an 86-year-old female who presents with possible urinary tract infection. 1. Dizziness and not feeling well, possibly secondary to urinary tract infection. Started on Cipro. Gm negative bacilli in cultures cx gutierrez sensitive klebsiella abx changed to cefuroxime as per pharmacy recommendations to avoid c diff f/u with pcp 2. Chronic kidney disease, stage IV. Baseline creatinine 1.8 to 2.0 creatinine of 1.8. Will follow the labs. 3. Hyperkalemia' mild k 5.2 repeat 4.9 will changed diet to renal diet. f/u labs with pcp 4. Anemia of chronic kidney disease. Hemoglobin 11.2. On Procrit shots. 5. Hyponatremia hx of SIADH.Presented with Na of 127. started on gentle fluids. Na went to 131. stopped fluids.Again 127 f/u labs with pcp 6. Abdominal discomfort constipation? stool softener kub -gas filled non dilated colon simethicone 7. History of hypertension, on nifedipine,Lopressor and and diuretics. We will follow the blood pressure in the hospital. 7. History of gastroesophageal reflux, on Zantac and Protonix. 8. History of anxiety and depression, mirtazapine, Lexapro and Ativan. discharge home with home health Total time spent on discharge = 35MINUTES This includes examination of the patient, discharge planning, medication reconciliation, and communication with other providers. Discharge Instructions Discharge Instructions Date of Service Aug 18, 2017. Admission Reason for Admission: Hyponatremia, Uti Discharge Discharge Diagnosis / Problem: HYPONATREMIA, UTI Discharge Goals Goal(s): Decrease discomfort, Improve function Activity Recommendations Activity Limitations: resume your previous activity . Instructions / Follow-Up Instructions / Follow-Up FOLLOWUP WITH FAMILY DOCTOR Yogesh Ballard ON Aug AT 10:45AM LABS: BMP IN ONE WEEK AND FOLLOW RESULTS WITH FAMILY DOCTOR RENAL DIET. AVOID FOODS WITH HIGH POTASSIUM. Current Hospital Diet Patient's current hospital diet: Regular Diet, Renal Diet Discharge Diet Recommended Diet: Regular Diet, Renal Diet Pending Studies Studies pending at discharge: no Medical Emergencies . Who to Call and When: Medical Emergencies: If at any time you feel your situation is an emergency, please call 911 immediately. . Non-Emergent Contact Non-Emergency issues call your: Primary Care Provider . . "Provider Documentation" section prepared by Rommel Aguilar. . VTE Core Measure Inpt VTE Proph given/why not?: Unfractionated heparin SQ
== END 2017-08-18 15:58 | disposition home health service (06) | DRG 690 ==
LOC: C.EDB 10:25 → C.MS4W 16:14 → ENRESERV 16:43
PROVIDERS: ADMIT Internal Medicine; ATTEND Internal Medicine
DX: N39.0 Urinary tract infection, site not specified (principal); N18.4 Chronic kidney disease, stage 4 (severe); E87.1 Hypo-osmolality and hyponatremia; R42 Dizziness and giddiness; F41.9 Anxiety disorder, unspecified; D63.8 Anemia in other chronic diseases classified elsewhere; I10 Essential (primary) hypertension; K21.9 Gastro-esophageal reflux disease without esophagitis; F32.9 Major depressive disorder, single episode, unspecified; R29.6 Repeated falls; E87.5 Hyperkalemia

== ENCOUNTER 2017-08-24 14:59 | Inpatient (IN) | payer OTHER ==
[~2017-08-24] VITALS: Ht 144.8 cm; Wt 52.0 kg
[~2017-08-24 14:59] MED LIST changes: +CFT250 PO; +LCTX PO
[2017-08-24] MEDS ORDERED: SODIUM CHLORIDE 0.9% 1000ML 500 ML IV STA (15:30)
--- NOTE | 2017-08-24 16:07 | EMERGENCY ROOM VISIT NOTE ---
History Report prepared by Unique: Earlene Vazquez Under the Supervision of: Dr. Oziel Yang M.D. First contact with patient: 15:27 Chief Complaint: ABNORMAL LABS Stated Complaint: LOW SODIUM History of Present Illness The patient is a 86 year old female who presents to the Emergency Room with complaints of abnormal labs. The patient was sent to the ED from Dr. Quevedo at [facility]. The patient was recently in the hospital with a bladder infection. She was at [facility] for a follow up and Dr. Quevedo noticed her sodium levels were lower than normal. The patient notes she fell this morning but she was not feeling any weaker than normal--no injury with the fall. She notes she has been drinking water more frequently. The patient denies any fever, vomiting, diarrhea , cough, SOB, or trouble urinating. Source of History: patient Onset: earlier today Position: other (abnomal labs) Associated Symptoms: No fevers, No cough, No SOB, No vomiting, No diarrhea, No urinary symptoms Review of Systems See HPI for pertinent positives & negatives. A total of 10 systems reviewed and were otherwise negative. Past Medical & Surgical Medical Problems: (1) Anemia, chronic disease (2) Anxiety (3) Chest pain (4) CKD (chronic kidney disease), stage IV (5) Dizziness (6) FRANCES (generalized anxiety disorder) (7) GERD (gastroesophageal reflux disease) (8) H/O echocardiogram (9) HLD (hyperlipidemia) (10) HTN (hypertension) (11) Hypothyroidism (12) Major depressive disorder, recurrent, moderate (13) Palpitations (14) SIADH (syndrome of inappropriate ADH production) Surgical Problems: (1) Hx of appendectomy (2) Hx of cholecystectomy (3) Hx of dilation and curettage (4) Status post total hip replacement, left Family History FHx: heart disease Hypertension Social History Smoking Status: Never Smoker Alcohol Use: none Drug Use: none Marital Status: Housing Status: lives with family Occupation Status: retired Current/Historical Medications Scheduled Aspirin (Aspirin Ec), 81 MG PO DAILY Atorvastatin (Lipitor), 10 MG PO HS Bumetanide (Bumex), 0.5 MG PO QAM Epoetin Rafael (Procrit), 10,000 UNITS SQ Q14D Escitalopram (Lexapro), 10 MG PO DAILY Ferrous Sulfate (Ferrous Sulfate), 325 MG PO BID Lactobacillus Acidophilus (Lactinex), 1 TAB PO BID Levothyroxine Sodium (Synthroid), 88 MCG PO DAILY Lorazepam (Ativan), 0.5 MG PO BID Magnesium Oxide (Mag-Ox), 400 MG PO QAM Metoprolol Tartrate (Lopressor) (Lopressor), 12.5 MG PO BID Mirtazapine (Remeron), 1 TAB PO HS Nifedipine (Nifedipine Er), 30 MG PO DAILY Pantoprazole (Protonix), 40 MG PO DAILY Ranitidine (Zantac), 300 MG PO HS Scheduled PRN Docusate Sodium (Docusate Sodium), 100 MG PO BID PRN for Constipation Allergies Coded Allergies: Penicillins (Verified Allergy, Intermediate, HIVES, 08/24/17) Iron Sucrose (Verified Adverse Reaction, Mild, n&v, abd pain, 08/24/17) Physical Exam Vital Signs Date Time Temp Pulse Resp B/P (MAP) Pulse Ox O2 Delivery O2 Flow Rate FiO2 08/24/17 17:23 62 14 148/52 99 Room Air 08/24/17 16:38 57 16 160/36 99 Room Air 08/24/17 15:05 36.5 59 18 135/47 100 Room Air Physical Exam GENERAL: Patient is in no acute distress. HEENT: No acute trauma, normocephalic atraumatic, mucous membranes moist, no nasal congestion, no scleral icterus. NECK: No stridor, no adenopathy, no meningismus, trachea is midline. LUNGS: Clear to auscultation bilaterally, no wheeze, no rhonchi, breath sounds equal. HEART: 2/6 systolic murmur, 3/6 diastolic murmur, regular rate and rhythm. ABDOMEN: Soft, nontender, bowel sounds positive, no hernias, no peritonitis. EXTREMITIES: No cyanosis or edema, full range of motion of all the joints without pain or difficulty, no signs for acute trauma. NEUROLOGIC: Oriented x 3, no acute motor or sensory deficits, no focal weakness. SKIN: No rash, no jaundice, no diaphoresis. Pale. Medical Decision & Procedures Laboratory Results 08/24/17 16:26 Red Blood Count 3.12, Mean Corpuscular Volume 98.7, Mean Corpuscular Hemoglobin 35.3, Mean Corpuscular Hemoglobin Concent 35.7, Mean Platelet Volume 9.8, Neutrophils (%) (Auto) 59.8, Lymphocytes (%) (Auto) 30.5, Monocytes (%) (Auto) 8.2, Eosinophils (%) (Auto) 0.8, Basophils (%) (Auto) 0.5, Neutrophils # (Auto) 3.79, Lymphocytes # (Auto) 1.93, Monocytes # (Auto) 0.52, Eosinophils # (Auto) 0.05, Basophils # (Auto) 0.03 08/24/17 16:26 Test 08/24/17 16:17 08/24/17 16:26 Urine Color YELLOW Urine Appearance CLEAR (CLEAR) Urine pH 5.5 (4.5-7.5) Urine Specific [place] 1.012 (1.000-1.030) Urine Protein NEG (NEG) Urine Glucose (UA) NEG (NEG) Urine Ketones NEG (NEG) Urine Occult Blood NEG (NEG) Urine Nitrite NEG (NEG) Urine Bilirubin NEG (NEG) Urine Urobilinogen NEG (NEG) Urine Leukocyte Esterase TRACE (NEG) Urine WBC (Auto) 1-5 /hpf (0-5) Urine RBC (Auto) 0-4 /hpf (0-4) Urine Hyaline Casts (Auto) 1-5 /lpf (0-5) Urine Epithelial Cells (Auto) 0-5 /lpf (0-5) Urine Bacteria (Auto) NEG (NEG) White Blood Count 6.33 K/uL (4.8-10.8) Red Blood Count 3.12 M/uL (4.2-5.4) Hemoglobin 11.0 g/dL (12.0-16.0) Hematocrit 30.8 % (37-47) Mean Corpuscular Volume 98.7 fL (80-100) Mean Corpuscular Hemoglobin 35.3 pg (25-34) Mean Corpuscular Hemoglobin Concent 35.7 g/dl (32-36) Platelet Count 209 K/uL (130-400) Mean Platelet Volume 9.8 fL (7.4-10.4) Neutrophils (%) (Auto) 59.8 % Lymphocytes (%) (Auto) 30.5 % Monocytes (%) (Auto) 8.2 % Eosinophils (%) (Auto) 0.8 % Basophils (%) (Auto) 0.5 % Neutrophils # (Auto) 3.79 K/uL (1.4-6.5) Lymphocytes # (Auto) 1.93 K/uL (1.2-3.4) Monocytes # (Auto) 0.52 K/uL (0.11-0.59) Eosinophils # (Auto) 0.05 K/uL (0-0.5) Basophils # (Auto) 0.03 K/uL (0-0.2) RDW Standard Deviation 44.8 fL (36.4-46.3) RDW Coefficient of Variation 12.6 % (11.5-14.5) Immature Granulocyte % (Auto) 0.2 % Immature Granulocyte # (Auto) 0.01 K/uL (0.00-0.02) Prothrombin Time 10.2 SECONDS (9.0-12.0) Prothromb Time International Ratio 1.0 (0.9-1.1) Activated Partial Thromboplast Time 26.3 SECONDS (21.0-31.0) Partial Thromboplastin Ratio 1.0 Anion Gap 11.0 mmol/L (3-11) Est Creatinine Clear Calc Drug Dose 19.1 ml/min Estimated GFR () 37.1 Estimated GFR (Non- 32.0 BUN/Creatinine Ratio 23.5 (10-20) Calcium Level 9.1 mg/dl (8.5-10.1) Magnesium Level 2.2 mg/dl (1.8-2.4) Total Bilirubin 0.3 mg/dl (0.2-1) Aspartate Amino Transf (AST/SGOT) 32 U/L (15-37) Alanine Aminotransferase (ALT/SGPT) 32 U/L (12-78) Alkaline Phosphatase 100 U/L (45-117) Troponin I < 0.015 ng/ml (0-0.045) Total Protein 7.5 gm/dl (6.4-8.2) Albumin 3.6 gm/dl (3.4-5.0) Globulin 3.9 gm/dl (2.5-4.0) Albumin/Globulin Ratio 0.9 (0.9-2) Thyroid Stimulating Hormone (TSH) 2.150 uIu/ml (0.300-4.500) Free Thyroxine 1.21 ng/dl (0.80-1.60) Chemistry Specimen Hemolysis Laboratory results reviewed by me. Medications Administered Medications (Trade) Dose Ordered Sig/Jassi Route Start Time Stop Time Status Last Admin Dose Admin Sodium Chloride 500 ml @ 999 mls/hr Q31M STAT IV 08/24/17 15:30 08/24/17 16:00 DC 08/24/17 15:30 999 MLS/HR ECG Indication: other (abnormal labs) Rate (beats per minute): 59 Rhythm: sinus bradycardia Findings: 1st degree AV block, other (old septal infarct, diffuse nonspecific ST change) ED Course 1529: The patient was evaluated in room B12B. A complete history and physical exam was performed. 1530: Sodium Chloride 500 ml @ 999 mls/hr IV. 1720: Discussed the patient's case with Celeste Carmona at [facility] [place]. The patient will be evaluated for further management. Medical Decision The patient is a 86 year old female who presents to the ED with complaints of abnormal labs. Differential diagnoses considered include electrolyte imbalance , hyponatremia, fluid overload, UTI, dysrhythmia, CA. . There is no leukocytosis or concerning anemia. Renal panel testing shows severe hyponatremia with a sodium of 117. No kidney failure. No hepatitis. The patient appears to be in a euthyroid state. Urinalysis does not suggest infection. EKG shows a sinus rhythm, no acute ischemia. Cardiac enzyme testing 1 is not consistent with acute cardiac injury. On exam, the patient was not toxic or febrile. There were no focal neurologic deficits. The patient presents with abnormal laboratory values. Her sodium has been confirmed dangerously low at 117. She was given IV saline. She does require hospitalization. I spoke with the patient and case management. The on-call hospitalist was consulted. Of note, the patient has had low sodium values before. She does have SIADH. Medication Reconcilliation Current Medication List: was personally reviewed by me Blood Pressure Screening Patient's blood pressure: Elevated blood pressure Blood pressure disposition: Elevated BP felt to be situational Consults Time Called: 1716 Consulting Physician: SPEEDY Faustin Returned Call: 1720 Discussed the patient's case with Celeste Carmona at [facility] [place]. The patient will be evaluated for further management. Impression Primary Impression: Hyponatremia Scribe Attestation The scribe's documentation has been prepared under my direction and personally reviewed by me in its entirety. I confirm that the note above accurately reflects all work, treatment, procedures, and medical decision making performed by me. Departure Information Dispostion Being Evaluated By Hospitalist Referrals Yogesh Quevedo III, M.D. (PCP) Patient Instructions My [facility]
[2017-08-24 16:37] LABS: BASO % 0.5 %; BASO ABS # 0.03 K/uL (0-0.2); EOS % 0.8 %; EOS ABS # 0.05 K/uL (0-0.5); HEMATOCRIT 30.8 % (37-47); IG# 0.01 K/uL (0.00-0.02); LYMPH % 30.5 %; LYMPH ABS # 1.93 K/uL (1.2-3.4); MEAN CELL VOLUME 98.7 fL (80-100); MEAN CORPUSCULAR HEMOGLOBIN 35.3 pg (25-34); MEAN CORPUSCULAR HGB CONC 35.7 g/dl (32-36); MEAN PLATELET VOLUME 9.8 fL (7.4-10.4); MONO % 8.2 %; MONO ABS # 0.52 K/uL (0.11-0.59); NEUT % 59.8 %; NEUT ABS # 3.79 K/uL (1.4-6.5); PLATELET COUNT 209 K/uL (130-400); RED CELL DISTRIBUTION WIDTH CV 12.6 % (11.5-14.5); RED CELL DISTRIBUTION WIDTH SD 44.8 fL (36.4-46.3); WHITE BLOOD COUNT 6.33 K/uL (4.8-10.8)
[2017-08-24 16:52] LABS: PTT PATIENT 26.3 SECONDS (21.0-31.0)
[2017-08-24 17:15] LABS: ALBUMIN 3.6 gm/dl (3.4-5.0); ALKALINE PHOSPHATASE 100 U/L (45-117); ALT/SGPT 32 U/L (12-78); AST/SGOT 32 U/L (15-37); BLOOD UREA NITROGEN 35 mg/dl (7-18); CALCIUM 9.1 mg/dl (8.5-10.1); CARBON DIOXIDE 25 mmol/L (21-32); CREATININE 1.47 mg/dl (0.60-1.20); GLUCOSE 93 mg/dl (70-99); POTASSIUM 4.3 mmol/L (3.5-5.1); TOTAL PROTEIN 7.5 gm/dl (6.4-8.2)
[2017-08-24 17:17] LABS: SODIUM 117 mmol/L (136-145)
[2017-08-24] MEDS ORDERED: POLYETHYLENE (MIRALAX) 17 GM PACK PO PRN (18:15)
[2017-08-24] MEDS ORDERED: ONDANSETRON INJ 2 MG/ML 2 ML VIAL IV PRN (18:15)
[2017-08-24] MEDS ORDERED: MIRT30TA PO (18:19)
--- NOTE | 2017-08-24 19:01 | History and Physical ---
History & Physical Date & Time of Service: Aug 24, 2017 at 18:22 Chief Complaint: Low Sodium Primary Care Physician: Yogesh Quevedo III, M.D. History of Present Illness Source: patient, family, clinic records, hospital records Pt is 86 y/o F with PMH SIADH, HTN, CKD IV, anxiety, anemia of chronic renal failure, GERD, frequent falls, OA presented to ER from PCP's office with c/o hyponatremia found on labs today. Pt was admitted on 08/15/17 - 08/18/17 for hyponatremia and UTI. Pt states since discharge she has been drinking increased amount of water as she was trying to "flush kidneys". Shes states that was dizzy last admission but that has resolved. Pt states this morning she slipped and fell between couch and end table. States bruise to dorsal R hand, without hand pain or other injury. Denies hitting head. Several days ago had loose BM, states yesterday was soft. Denies fever/chills, diaphoresis, N/V, NOEL, syncope, vision changes, neck pain, CP, SOB, orthopnea, palpitations, cough, sore throat , choking, otalgia, rhinorrhea, abdominal pain, paresthesias, weakness, extremity edema, rashes, urinary symptoms. In ER pt afebrile, P:62, R:16, BP: 148/52, O2 sat: 99% on RA. Hgb: 11 (stable for pt), K: 4.3, ma.2, Na: 117 (was 127 on 08/18/17). Cr: 1.4 (was 1.8 on ). negative troponin. U/A: unremarkable. Pt given 500ml NSS in ER. Past Medical/Surgical History Medical Problems: (1) Anemia, chronic disease Status: Chronic (2) Anxiety Status: Chronic (3) CKD (chronic kidney disease), stage IV Status: Chronic (4) FRANCES (generalized anxiety disorder) Status: Chronic (5) GERD (gastroesophageal reflux disease) Status: Chronic (6) H/O echocardiogram Permanent Comment: 03/2015 - EF 60-65%, moderate to severe aortic regurgitation Status: Chronic (7) HLD (hyperlipidemia) Status: Chronic (8) HTN (hypertension) Status: Chronic (9) Hypothyroidism Status: Chronic (10) Major depressive disorder, recurrent, moderate Status: Chronic (11) Palpitations Status: Chronic (12) SIADH (syndrome of inappropriate ADH production) Status: Chronic Surgical Problems: (1) Hx of appendectomy Status: Chronic (2) Hx of cholecystectomy Status: Chronic (3) Hx of dilation and curettage Status: Chronic (4) Status post total hip replacement, left Status: Chronic Family History FHx: heart disease Hypertension Social History Smoking Status: Never Smoker Smokeless Tobacco Use: No Alcohol Use: none Drug Use: none Marital Status: Housing status: lives with family Occupational Status: retired Immunizations History of Influenza Vaccine: Yes Influenza Vaccine Date: Apr 24, 2016 History of Tetanus Vaccine?: Yes Tetanus Immunization Date: Oct 05, 2007 History of Pneumococcal: Yes Pneumococcal Date: Apr 24, 2016 History of Hepatitis B Vaccine: No Multi-Drug Resistant Organisms History of MDRO: No Allergies Coded Allergies: Penicillins (Verified Allergy, Intermediate, HIVES, 08/24/17) Iron Sucrose (Verified Adverse Reaction, Mild, n&v, abd pain, 08/24/17) Home Medications Scheduled Aspirin (Aspirin Ec), 81 MG PO DAILY Atorvastatin (Lipitor), 10 MG PO HS Bumetanide (Bumex), 0.5 MG PO QAM Epoetin Rafael (Procrit), 10,000 UNITS SQ Q14D Escitalopram (Lexapro), 10 MG PO DAILY Ferrous Sulfate (Ferrous Sulfate), 325 MG PO BID Lactobacillus Acidophilus (Lactinex), 1 TAB PO BID Levothyroxine Sodium (Synthroid), 88 MCG PO DAILY Lorazepam (Ativan), 0.5 MG PO BID Magnesium Oxide (Mag-Ox), 400 MG PO QAM Metoprolol Tartrate (Lopressor) (Lopressor), 12.5 MG PO BID Mirtazapine (Remeron), 1 TAB PO HS Nifedipine (Nifedipine Er), 30 MG PO DAILY Pantoprazole (Protonix), 40 MG PO DAILY Ranitidine (Zantac), 300 MG PO HS Scheduled PRN Docusate Sodium (Docusate Sodium), 100 MG PO BID PRN for Constipation Review of Systems Constitutional: No fever, No chills, No sweats, No weight loss Eyes: No worsening of vision, No eye pain ENT: + problem reported, No unusual epistaxis, No nasal symptoms, No sore throat, No trouble swallowing Respiratory: No cough, No sputum, No wheezing, No shortness of breath, No dyspnea on exertion, No dyspnea at rest Cardiovascular: No chest pain, No orthopnea, No PND, No edema, No palpitations Abdomen: + problem reported (see HPI) Musculoskeletal: + joint pain (chronic back pain, denies worsening) Genitourinary - Female: No dysuria, No urinary frequency, No urinary urgency, No urinary incontinence, No urinary retention, No hematuria Neurologic: No paralysis, No numbness/tingling, No vertigo Psychiatric: + anxiety (stable on lexapro and ativan) Endocrine: No excessive thirst, No excessive urination Hematologic / Lymphatic: No abnormal bleeding/bruising, No clotting problems, No night sweats Integumentary: No rash, No itch Physical Exam Vital Signs Date Time Temp Pulse Resp B/P (MAP) Pulse Ox O2 Delivery O2 Flow Rate FiO2 08/24/17 17:23 62 14 148/52 99 Room Air 08/24/17 16:38 57 16 160/36 99 Room Air 08/24/17 15:05 36.5 59 18 135/47 100 Room Air General Appearance: WD/WN, no apparent distress Head: normocephalic, atraumatic Eyes: normal inspection, PERRL, EOMI, sclerae normal ENT: hearing grossly normal, pharynx normal, + pertinent finding (mucous membranes moist) Neck: supple, trachea midline Respiratory/Chest: chest non-tender, lungs clear, normal breath sounds, no respiratory distress, no accessory muscle use Cardiovascular: regular rate, rhythm, no edema, no murmur Abdomen/GI: normal bowel sounds, non tender, soft Back: no CVA tenderness Extremities/Musculoskelatal: no calf tenderness, normal capillary refill, no pedal edema, normal range of motion, non-tender Neurologic/Psych: alert, normal mood/affect (slightly anxious but calms quickly with family interaction and redirection), oriented x 3 Skin: normal color, warm/dry, + pertinent finding (+ecchymosis dorsal hand) Diagnostics Laboratory Results Results Past 24 Hours Test 08/24/17 16:17 08/24/17 16:26 Range/Units Urine Color YELLOW Urine Appearance CLEAR CLEAR Urine pH 5.5 4.5-7.5 Urine Specific [place] 1.012 1.000-1.030 Urine Protein NEG NEG Urine Glucose (UA) NEG NEG Urine Ketones NEG NEG Urine Occult Blood NEG NEG Urine Nitrite NEG NEG Urine Bilirubin NEG NEG Urine Urobilinogen NEG NEG Urine Leukocyte Esterase TRACE NEG Urine WBC (Auto) 1-5 0-5 /hpf Urine RBC (Auto) 0-4 0-4 /hpf Urine Hyaline Casts (Auto) 1-5 0-5 /lpf Urine Epithelial Cells (Auto) 0-5 0-5 /lpf Urine Bacteria (Auto) NEG NEG White Blood Count 6.33 4.8-10.8 K/uL Red Blood Count 3.12 4.2-5.4 M/uL Hemoglobin 11.0 12.0-16.0 g/dL Hematocrit 30.8 37-47 % Mean Corpuscular Volume 98.7 80-100 fL Mean Corpuscular Hemoglobin 35.3 25-34 pg Mean Corpuscular Hemoglobin Concent 35.7 32-36 g/dl Platelet Count 209 130-400 K/uL Mean Platelet Volume 9.8 7.4-10.4 fL Neutrophils (%) (Auto) 59.8 % Lymphocytes (%) (Auto) 30.5 % Monocytes (%) (Auto) 8.2 % Eosinophils (%) (Auto) 0.8 % Basophils (%) (Auto) 0.5 % Neutrophils # (Auto) 3.79 1.4-6.5 K/uL Lymphocytes # (Auto) 1.93 1.2-3.4 K/uL Monocytes # (Auto) 0.52 0.11-0.59 K/uL Eosinophils # (Auto) 0.05 0-0.5 K/uL Basophils # (Auto) 0.03 0-0.2 K/uL RDW Standard Deviation 44.8 36.4-46.3 fL RDW Coefficient of Variation 12.6 11.5-14.5 % Immature Granulocyte % (Auto) 0.2 % Immature Granulocyte # (Auto) 0.01 0.00-0.02 K/uL Prothrombin Time 10.2 9.0-12.0 SECONDS Prothromb Time International Ratio 1.0 0.9-1.1 Activated Partial Thromboplast Time 26.3 21.0-31.0 SECONDS Partial Thromboplastin Ratio 1.0 Sodium Level 117 136-145 mmol/L Potassium Level 4.3 3.5-5.1 mmol/L Chloride Level 81 98-107 mmol/L Carbon Dioxide Level 25 21-32 mmol/L Anion Gap 11.0 3-11 mmol/L Blood Urea Nitrogen 35 7-18 mg/dl Creatinine 1.47 0.60-1.20 mg/dl Est Creatinine Clear Calc Drug Dose 19.1 ml/min Estimated GFR () 37.1 Estimated GFR (Non- 32.0 BUN/Creatinine Ratio 23.5 10-20 Random Glucose 93 70-99 mg/dl Calcium Level 9.1 8.5-10.1 mg/dl Magnesium Level 2.2 1.8-2.4 mg/dl Total Bilirubin 0.3 0.2-1 mg/dl Aspartate Amino Transf (AST/SGOT) 32 15-37 U/L Alanine Aminotransferase (ALT/SGPT) 32 12-78 U/L Alkaline Phosphatase 100 45-117 U/L Troponin I < 0.015 0-0.045 ng/ml Total Protein 7.5 6.4-8.2 gm/dl Albumin 3.6 3.4-5.0 gm/dl Globulin 3.9 2.5-4.0 gm/dl Albumin/Globulin Ratio 0.9 0.9-2 Thyroid Stimulating Hormone (TSH) 2.150 0.300-4.500 uIu/ml Free Thyroxine 1.21 0.80-1.60 ng/dl Chemistry Specimen Hemolysis EKG EKG: rate 59, sinus hao with 1st degree AV block Impression Assessment and Plan HYPONATREMIA Pt with hx SIADH. Recent hospitalization for UTI. Pt admits been drinking more water this past week. Denies dizziness, NOEL, paresthesias or change in mentation. In ER Na: 117. baseline not above 130. was 127 on 08/18/17. -fluid restriction 1200ml/day -repeat prp Q6H -nephrology consult HTN stable -continue metoprolol, nifedipine ANXIETY Stable -continue Lexapro -continue Ativan GERD -continue PPI -continue ranitidine HS CKD IV Cr: 1.4 (was 1.8 on 08/18/17) -continue to monitor -avoid nephrotoxic agents when possible Hyperkalemia last admission was discharged on renal diet f/u lbas ANEMIA CHRONIC RENAL FAILURE On Procrit. Hgb stable at 11 -continue to monitor HYPOTHYROIDISM TSH: 2.1 -continue levothyroxine DVT PROPHYLAXIS -heparin SQ DISPOSITION -admit med/surg -Full Code as per discussion with pt -Follows with Dr Quevedo for routine care Pt was seen with Dr Aguilar. See addendum Agree with above H and P. Briefly 86f with hx of hyponatremia, Hyperkalemia( last admission) and ckd stage 4, recently in hospital for UTI comes back as her follow labs showed sodium of 117. Says since discharged drinking lot of water to flush her kidneys as she had UTI. Denies any chest pain or sob, No fevers. No nausea. resting comfortably p/e Ge patient is old and frail . Not in distress Cvs s1 and s2 heard no murmurs Rs cta b./l no wheezing no rhonchi Abd benign [employer] non focal ext no edema a/p Hyponatremia hx of siadh Na 117 baseline in high 120's fluid restriction 1200ml/day urine and serum osmolality close f/u lavs nephrology consult CKD satge 4 f/u labs Hyperkalemia last admission renal diet f/u labs Level of Care Med/Surg Resuscitation Status FULL RESUSCITATION VTE Prophylaxis VTE Risk Assessment Done? Y/N: Yes Risk Level: Moderate Given or contraindicated: Unfractionated heparin SQ Additional Copies To Yogesh Quevedo III, M.D.
[2017-08-24 19:30] VITALS: BP 168/44; TEMP 36.5; Ht 144.8 cm; Wt 52.0 kg
[2017-08-24] MEDS: MIRTAZAPINE TAB 15 MG TAB PO SCH (20:04)
[2017-08-24] MEDS: LORAZEPAM 0.5 MG TAB PO SCH (20:04)
[2017-08-24] MEDS: FERROUS SULFATE 325 MG TAB PO SCH (20:06)
[2017-08-24] MEDS: ATORVASTATIN 10 MG TAB PO SCH (20:08)
[2017-08-24] MEDS: METOPROLOL TARTRATE 25 MG TAB PO SCH (20:08)
[2017-08-24] MEDS: LACTOBACILLUS ACIDOPHILUS (FLORANEX) TAB PO SCH (20:08)
[2017-08-24] MEDS: HEPARIN SOD 5000 UNIT/0.5 ML CARP SQ SCH (20:10)
[2017-08-24 20:50] VITALS: BP 155/47; PULSE 54; O2SAT 100
[2017-08-24 22:43] LABS: CALCIUM 8.4 mg/dl (8.5-10.1); CREATININE 1.33 mg/dl (0.60-1.20); POTASSIUM 4.1 mmol/L (3.5-5.1)
[2017-08-25 00:43] VITALS: BP 128/62; PULSE 52; TEMP 36.4; O2SAT 97
[2017-08-25] MEDS: LEVOTHYROXINE 88 MCG TAB PO SCH (03:46)
[2017-08-25 05:06] LABS: HEMATOCRIT 28.3 % (37-47); HEMOGLOBIN 10.2 g/dL (12.0-16.0); MEAN CELL VOLUME 99.6 fL (80-100); MEAN CORPUSCULAR HEMOGLOBIN 35.9 pg (25-34); MEAN PLATELET VOLUME 9.9 fL (7.4-10.4); PLATELET COUNT 176 K/uL (130-400); RED CELL DISTRIBUTION WIDTH CV 12.6 % (11.5-14.5); RED CELL DISTRIBUTION WIDTH SD 45.3 fL (36.4-46.3); WHITE BLOOD COUNT 4.25 K/uL (4.8-10.8)
[2017-08-25 05:40] LABS: CALCIUM 8.5 mg/dl (8.5-10.1); CREATININE 1.58 mg/dl (0.60-1.20); POTASSIUM 4.1 mmol/L (3.5-5.1)
[2017-08-25] MEDS: FERROUS SULFATE 325 MG TAB PO SCH ×2 (07:30→20:00)
[2017-08-25] MEDS: MAGNESIUM OXIDE 400 MG TAB PO SCH (07:30)
[2017-08-25] MEDS: METOPROLOL TARTRATE 25 MG TAB PO SCH ×2 (07:30→20:00)
[2017-08-25] MEDS: PANTOprazole SOD 40 MG TAB PO SCH (07:30)
[2017-08-25] MEDS: ESCITALOPRAM OXALATE 10 MG TAB PO SCH (07:30)
[2017-08-25] MEDS: LACTOBACILLUS ACIDOPHILUS (FLORANEX) TAB PO SCH ×2 (07:30→20:00)
[2017-08-25] MEDS: BUMETANIDE 1 MG TAB PO SCH (07:31)
[2017-08-25] MEDS: ASPIRIN 81 MG ECTAB PO SCH (07:31)
[2017-08-25] MEDS: HEPARIN SOD 5000 UNIT/0.5 ML CARP SQ SCH ×2 (07:35→19:58)
[2017-08-25] MEDS: LORAZEPAM 0.5 MG TAB PO SCH ×2 (07:38→20:00)
[2017-08-25 07:53] VITALS: BP 157/76; PULSE 77; TEMP 36.4; O2SAT 99
[2017-08-25] MEDS ORDERED: MAGNESIUM HYDROXIDE SUSP 30 ML UDC PO PRN (10:45)
[2017-08-25 10:47] LABS: CALCIUM 8.6 mg/dl (8.5-10.1); CREATININE 1.72 mg/dl (0.60-1.20); POTASSIUM 3.8 mmol/L (3.5-5.1)
--- NOTE | 2017-08-25 10:54 | NEPHROLOGY CONSULTATION ---
DATE OF CONSULTATION: 08/25/2017 DATE OF CONSULTATION: 08/25/2017 ATTENDING OF RECORD: Dr. Moeller. REASON FOR CONSULTATION: Hyponatremia. HISTORY OF PRESENT ILLNESS: This is an 86-year-old female with significant underlying anxiety who was recently admitted from August 15 to August 18 with hyponatremia and a urinary tract infection. During that time her sodium level was 128 and trended up to 131 and at time of discharge was 127. The patient's creatinines were in the 1.6-1.9 range. The patient at home was drinking more water trying to flush out her kidneys with the resolving UTI and comes back in with a sodium level of 117, was placed on a fluid restriction and is 120 this morning. The patient is alert and comfortable, anxious with no other specific complaints. ROS: no dysuria, +burning in the chest, no sob, +anxiety, no headaches, no blurry vision, no diarrhea or constipation, no rash or itching. all other review of systems otherwise negative. PAST MEDICAL HISTORY: Anxiety, CKD stage IV, hypertension, hypothyroidism, hyperlipidemia, underlying SIADH of unclear etiology. PAST SURGICAL HISTORY: Appendectomy, cholecystectomy, hip replacement. FAMILY HISTORY: No renal disease in family. SOCIAL HISTORY: No smoking, no alcohol, no drugs. Lives at home. CURRENT MEDICATIONS: Zantac 300 mg at night, nifedipine 30 mg daily, aspirin 81 mg daily, Bumex 0.5 mg daily, Lexapro 10 mg daily, magnesium 400 mg daily, Protonix 40 mg daily, Synthroid 88 mcg daily, heparin 5,000 units subQ q. 12, Lipitor 10 mg at night, Remeron 30 mg at night, iron 325 p.o. b.i.d., Lopressor 12.5 mg p.o. b.i.d. PHYSICAL EXAMINATION VITAL SIGNS: Temperature 36.4, pulse 77, respiratory rate 18, blood pressure 157/76, satting 99% on room air. GENERAL: Awake, alert, oriented x3 with some underlying anxiety. HEAD, EYES, EARS, NOSE, AND THROAT: Eyes no scleral icterus. EARS, NOSE, THROAT: Moist mucous membranes. NECK: Supple. PULMONARY: Clear to auscultation. CARDIAC: Regular rate and rhythm. ABDOMEN: Bowel sounds positive, soft, nontender. EXTREMITIES: No clubbing, cyanosis or edema. NEUROLOGICALLY: Nonfocal. DERMATOLOGIC: No rash or ulcers noted. LABORATORY DATA: Are pending for this morning. Last sodium level was 120 with potassium 4.1, chloride of 87, bicarbonate of 27, BUN 36, creatinine 1.58. Serum osmolality was 262, calcium is 8.5. Urine osmolality is 188, pH 5.5, specific gravity 1.012. White count is 4, H&H 10 and 28.3, platelet count 176. INR is 1. ASSESSMENT AND PLAN: Hyponatremia. The patient with element of SIADH appears euvolemic to me and was drinking more water than normal to try to flush out her kidneys from resolving urinary tract infection and comes in with a sodium level of 117. Mental status is stable. No role for 3% normal saline. With a urine osmol of 188, I would like to start a low rate of normal saline at 50 mL an hour which will help improve sodium levels given the fact that the urine osmolality was below 300. Thyroid levels appear stable. The patient is on Lexapro, but has been on it for a long time and I feel the patient needs it with her significant underlying anxiety and would not stop this at this time. For now, continue fluid restriction, start low rate of normal saline. Continue to follow sodium levels and hope the sodium levels correct appropriately over the next 24-48 hours. Appreciate consultation. BRANDON
[2017-08-25] MEDS: SODIUM CHLORIDE 0.9% 1000ML 1,000 ML IV SCH (10:59)
[2017-08-25 15:15] VITALS: BP 155/62; PULSE 57; TEMP 36.7; O2SAT 99
--- NOTE | 2017-08-25 17:35 | Progress Note ---
Subjective Date of Service: Aug 25, 2017. Subjective Pt evaluation today including: conversation w/ patient, physical exam, lab review, review of studies, review of inpatient medication list Saw/examined the patient in room 451 She is doing well, though very anxious Scared about her kidneys not working any longer Denies any symptoms at this time No dysuria, no urinary frequency Problem List Medical Problems: (1) Abdominal pain Status: Acute (2) Abdominal pain Status: Acute (3) Acute on chronic renal insufficiency Status: Acute (4) Bilateral pleural effusion Status: Acute (5) Chronic hyponatremia Status: Acute (6) Chronic kidney disease Status: Acute (7) Chronic renal insufficiency Status: Acute (8) Closed head injury Status: Acute (9) Constipation Status: Acute (10) Constipation Status: Acute (11) Constipation Status: Acute (12) Constipation Status: Acute (13) Decreased urine output Status: Acute (14) Degenerative arthritis of cervical spine Status: Acute (15) Dehydration Status: Acute (16) Dehydration Status: Acute (17) Dehydration Status: Acute (18) Dehydration Status: Acute (19) Dehydration Status: Acute (20) Dehydration Status: Acute (21) Depression Status: Acute (22) Diarrhea Status: Acute (23) Elevated serum creatinine Status: Acute (24) Failure to thrive Status: Acute (25) Fall Status: Acute (26) Fall Status: Acute (27) Generalized weakness Status: Acute (28) Generalized weakness Status: Acute (29) Generalized weakness Status: Acute (30) Generalized weakness Status: Acute (31) Generalized weakness Status: Acute (32) Heart palpitations Status: Acute (33) Hypomagnesemia Status: Acute (34) Hyponatremia Status: Acute (35) Hyponatremia Status: Acute (36) Hyponatremia Status: Acute (37) Hyponatremia Status: Acute (38) Hyponatremia Status: Acute (39) Hyponatremia Status: Acute (40) Hyponatremia Status: Acute (41) Hyponatremia Status: Acute (42) Leg weakness Status: Acute (43) Multiple complaints Status: Acute (44) New onset atrial flutter Status: Acute (45) Orthostatic hypotension Status: Acute (46) Orthostatic hypotension Status: Acute (47) Palpitations Status: Chronic (48) Palpitations Status: Acute (49) Pericardial effusion Status: Acute (50) Pneumonia involving left lung Status: Acute (51) Precordial chest pain Status: Acute (52) Precordial chest pain Status: Acute (53) Premature ventricular contractions Status: Acute (54) Premature ventricular contractions Status: Acute (55) PVC (premature ventricular contraction) Status: Acute (56) PVC's (premature ventricular contractions) Status: Acute (57) Renal insufficiency Status: Acute (58) Ribs, multiple fractures Status: Acute (59) Sore neck Status: Acute (60) Symptomatic anemia Status: Acute (61) Symptoms involving urinary system Status: Acute (62) Symptoms involving urinary system Status: Acute (63) Urinary retention Status: Acute (64) UTI (urinary tract infection) Status: Acute (65) UTI (urinary tract infection) Status: Acute (66) Weakness Status: Acute (67) Weakness Status: Acute (68) Weakness Status: Acute (69) Weakness Status: Acute (70) Weakness Status: Acute Review of Systems Respiratory: No shortness of breath Cardiac: No chest pain Female : No dysuria, No urinary frequency, No hematuria, No incontinence Medications Current Inpatient Medications Medications (Trade) Dose Ordered Sig/Jassi Route Start Time Stop Time Status Last Admin Dose Admin Acetaminophen (Tylenol Tab) 650 mg Q4H PRN PO 08/24/17 18:15 09/23/17 18:14 Polyethylene (Miralax Powder Packet) 17 gm DAILY PRN PO 08/24/17 18:15 09/23/17 18:14 Ondansetron HCl (Zofran Inj) 4 mg Q6H PRN IV 08/24/17 18:15 09/23/17 18:14 Heparin Sodium (Porcine) (Heparin Sq 5000 Unit/0.5ml) 5,000 unit Q12 SQ 08/24/17 21:00 09/23/17 20:59 08/25/17 07:35 5,000 UNIT Aspirin (Ecotrin Tab) 81 mg DAILY PO 08/25/17 08:00 09/24/17 08:59 08/25/17 07:31 81 MG Atorvastatin Calcium (Lipitor Tab) 10 mg HS PO 08/24/17 21:00 09/23/17 20:59 08/24/17 20:08 10 MG Bumetanide (Bumex Tab) 0.5 mg QAM PO 08/25/17 08:00 09/24/17 08:59 08/25/17 07:31 0.5 MG Escitalopram Oxalate (Lexapro Tab) 10 mg DAILY PO 08/25/17 08:00 09/24/17 08:59 08/25/17 07:30 10 MG Ferrous Sulfate (Feosol Tab) 325 mg BID PO 08/24/17 20:00 09/23/17 20:59 08/25/17 07:30 325 MG Lactobacillus Acidophilus (Floranex Tab) 1 tab BID PO 08/24/17 20:00 09/23/17 20:59 08/25/17 07:30 1 TAB Levothyroxine Sodium (Synthroid Tab) 88 mcg DAILYBB PO 08/25/17 06:30 09/24/17 06:59 08/25/17 03:46 88 MCG Lorazepam (Ativan Tab) 0.5 mg BID PO 08/24/17 20:00 09/23/17 20:59 08/25/17 07:38 0.5 MG Magnesium Oxide (Mag-Ox Tab) 400 mg QAM PO 08/25/17 08:00 09/24/17 08:59 08/25/17 07:30 400 MG Metoprolol Tartrate (Lopressor Tab) 12.5 mg BID PO 08/24/17 20:00 09/23/17 20:59 08/25/17 07:30 12.5 MG Mirtazapine (Remeron Tab) 30 mg HS PO 08/24/17 21:00 09/23/17 20:59 08/24/17 20:04 30 MG Nifedipine (Procardia Xl Tab) 30 mg DAILY PO 08/25/17 09:00 09/24/17 08:59 Pantoprazole Sodium (Protonix Tab) 40 mg DAILY PO 08/25/17 08:00 09/24/17 08:59 08/25/17 07:30 40 MG Ranitidine HCl (zANTac TAB) 300 mg HS PO 08/25/17 22:00 09/24/17 21:59 Sodium Chloride 1,000 ml @ 50 mls/hr Q20H IV 08/25/17 10:45 09/24/17 10:44 08/25/17 10:59 50 MLS/HR Magnesium Hydroxide (Milk Of Magnesia Susp) 30 ml Q6H PRN PO 08/25/17 10:45 09/24/17 10:44 Objective Vital Signs Date Time Temp Pulse Resp B/P (MAP) Pulse Ox O2 Delivery O2 Flow Rate FiO2 08/25/17 16:00 Room Air 08/25/17 15:15 36.7 57 18 155/62 (93) 99 Room Air 08/25/17 08:15 Room Air 08/25/17 07:53 36.4 77 18 157/76 (103) 99 Room Air 08/25/17 00:43 36.4 52 18 128/62 (84) 97 Room Air 08/25/17 00:00 Room Air 08/24/17 20:50 54 155/47 (83) 100 Room Air 08/24/17 19:30 36.5 16 168/44 Room Air 08/24/17 18:30 57 16 168/44 98 Room Air Physical Exam General Appearance: no apparent distress, + thin, + pertinent finding (elderly , chronically ill) Respiratory/Chest: no respiratory distress, no accessory muscle use Cardiovascular: regular rate, rhythm, no edema Extremities: normal inspection, no pedal edema, no calf tenderness Neurologic/Psychiatric: no motor/sensory deficits, alert, normal mood/affect, + depressed affect Laboratory Results Last 24 Hours Test 08/24/17 22:17 08/25/17 00:00 08/25/17 04:43 08/25/17 10:16 Sodium Level 122 mmol/L 120 mmol/L 122 mmol/L Potassium Level 4.1 mmol/L 4.1 mmol/L 3.8 mmol/L Chloride Level 88 mmol/L 87 mmol/L 87 mmol/L Carbon Dioxide Level 26 mmol/L 27 mmol/L 27 mmol/L Anion Gap 9.0 mmol/L 6.0 mmol/L 8.0 mmol/L Blood Urea Nitrogen 35 mg/dl 36 mg/dl 36 mg/dl Creatinine 1.33 mg/dl 1.58 mg/dl 1.72 mg/dl Est Creatinine Clear Calc Drug Dose 21.1 ml/min 17.7 ml/min 16.3 ml/min Estimated GFR () 41.8 34.0 30.7 Estimated GFR (Non- 36.1 29.3 26.5 BUN/Creatinine Ratio 26.4 22.6 20.8 Random Glucose 64 mg/dl 75 mg/dl 70 mg/dl Calcium Level 8.4 mg/dl 8.5 mg/dl 8.6 mg/dl Urine Osmolality 188 mOms/kg White Blood Count 4.25 K/uL Red Blood Count 2.84 M/uL Hemoglobin 10.2 g/dL Hematocrit 28.3 % Mean Corpuscular Volume 99.6 fL Mean Corpuscular Hemoglobin 35.9 pg Mean Corpuscular Hemoglobin Concent 36.0 g/dl RDW Standard Deviation 45.3 fL RDW Coefficient of Variation 12.6 % Platelet Count 176 K/uL Mean Platelet Volume 9.9 fL Osmolality 262 mOsm/kg Assessment and Plan This is an 86 year old female with a PMH of CKD stage IV, anxiety, anemia of chronic renal failure, chronic hyponatremia, 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 - presents with hyponatremia Hyponatremia appreciate nephrology input gentle IV hydration low urine and serum osm; suggests fluid overload monitor Na and will bring this number up sodium is chronically around 127-130 CKD stage IV creatinine is at baseline gentle IV hydration avoid nephrotoxic agents when able Anxiety continue Lexapro continue Ativan BID may need an additional dose of Ativan due to worsening anxiety DVT ppx subq heparin FULL CODE
[2017-08-25] MEDS: ATORVASTATIN 10 MG TAB PO SCH (20:02)
[2017-08-25] MEDS: MIRTAZAPINE TAB 15 MG TAB PO SCH (20:02)
[2017-08-25] MEDS: RANITIDINE HCL 150 MG TAB PO SCH (20:15)
[2017-08-26 00:28] VITALS: BP 165/52; PULSE 63; TEMP 36.6; O2SAT 98
[2017-08-26] MEDS: LEVOTHYROXINE 88 MCG TAB PO SCH (05:22)
[2017-08-26 07:58] VITALS: BP 182/56; PULSE 61; TEMP 36.4; O2SAT 98
[2017-08-26] MEDS: ASPIRIN 81 MG ECTAB PO SCH (08:00)
[2017-08-26] MEDS: FERROUS SULFATE 325 MG TAB PO SCH ×2 (08:00→20:12)
[2017-08-26] MEDS: ESCITALOPRAM OXALATE 10 MG TAB PO SCH (08:00)
[2017-08-26] MEDS: MAGNESIUM OXIDE 400 MG TAB PO SCH (08:01)
[2017-08-26] MEDS: BUMETANIDE 1 MG TAB PO SCH (08:01)
[2017-08-26] MEDS: NIFEdipine 30 MG CR TAB PO SCH (08:02)
[2017-08-26] MEDS: PANTOprazole SOD 40 MG TAB PO SCH (08:03)
[2017-08-26] MEDS: METOPROLOL TARTRATE 25 MG TAB PO SCH ×2 (08:03→20:11)
[2017-08-26] MEDS: LACTOBACILLUS ACIDOPHILUS (FLORANEX) TAB PO SCH ×2 (08:03→20:12)
[2017-08-26] MEDS: LORAZEPAM 0.5 MG TAB PO SCH ×2 (08:07→20:10)
[2017-08-26] MEDS: HEPARIN SOD 5000 UNIT/0.5 ML CARP SQ SCH ×2 (08:07→20:50)
[2017-08-26] MEDS: SODIUM CHLORIDE 0.9% 1000ML 1,000 ML IV SCH ×2 (08:08→20:13)
[2017-08-26 09:01] LABS: HEMATOCRIT 31.8 % (37-47); HEMOGLOBIN 10.9 g/dL (12.0-16.0); MEAN CELL VOLUME 102.6 fL (80-100); MEAN CORPUSCULAR HEMOGLOBIN 35.2 pg (25-34); MEAN CORPUSCULAR HGB CONC 34.3 g/dl (32-36); MEAN PLATELET VOLUME 10.3 fL (7.4-10.4); PLATELET COUNT 190 K/uL (130-400); RED CELL DISTRIBUTION WIDTH SD 47.9 fL (36.4-46.3); WHITE BLOOD COUNT 4.06 K/uL (4.8-10.8)
[2017-08-26 09:27] LABS: CALCIUM 8.8 mg/dl (8.5-10.1); CREATININE 1.69 mg/dl (0.60-1.20); POTASSIUM 4.1 mmol/L (3.5-5.1)
--- NOTE | 2017-08-26 10:14 | Nephrology Progress Note ---
Nephrology Progress Note Date of Service: Aug 26, 2017. Subjective 86 yo female with hx of siadh who presented with hyponatremia after drinking more water than usual. sodium levels are slowly improving on fluid restriction and ns at 50cc/hr. pt with underlying anxiety and hoping to go home soon. Objective Date Time Temp Pulse Resp B/P (MAP) Pulse Ox O2 Delivery O2 Flow Rate FiO2 08/26/17 07:58 36.4 61 18 182/56 (98) 98 Room Air 08/26/17 00:28 36.6 63 18 165/52 (89) 98 Room Air 08/26/17 00:00 Room Air 08/25/17 20:00 Room Air 08/25/17 16:00 Room Air 08/25/17 15:15 36.7 57 18 155/62 (93) 99 Room Air Physical Exam: General-[id number] Eyes-no scleral icterus ENT-mmm Neck-supple Lungs-cta Heart-regular with ectopy Abdomen-bs+ s/nt/nd Extremities-mild edema Neuro-nonfocal Current Inpatient Medications Medications (Trade) Dose Ordered Sig/Jassi Route Start Time Stop Time Status Last Admin Dose Admin Acetaminophen (Tylenol Tab) 650 mg Q4H PRN PO 08/24/17 18:15 09/23/17 18:14 Polyethylene (Miralax Powder Packet) 17 gm DAILY PRN PO 08/24/17 18:15 09/23/17 18:14 08/26/17 08:37 17 GM Ondansetron HCl (Zofran Inj) 4 mg Q6H PRN IV 08/24/17 18:15 09/23/17 18:14 Heparin Sodium (Porcine) (Heparin Sq 5000 Unit/0.5ml) 5,000 unit Q12 SQ 08/24/17 21:00 09/23/17 20:59 08/26/17 08:07 5,000 UNIT Aspirin (Ecotrin Tab) 81 mg DAILY PO 08/25/17 08:00 09/24/17 08:59 08/26/17 08:00 81 MG Atorvastatin Calcium (Lipitor Tab) 10 mg HS PO 08/24/17 21:00 18 20:59 08/25/17 20:02 10 MG Bumetanide (Bumex Tab) 0.5 mg QAM PO 08/25/17 08:00 09/24/17 08:59 08/26/17 08:01 0.5 MG Escitalopram Oxalate (Lexapro Tab) 10 mg DAILY PO 08/25/17 08:00 09/24/17 08:59 08/26/17 08:00 10 MG Ferrous Sulfate (Feosol Tab) 325 mg BID PO 08/24/17 20:00 09/23/17 20:59 08/26/17 08:00 325 MG Lactobacillus Acidophilus (Floranex Tab) 1 tab BID PO 08/24/17 20:00 09/23/17 20:59 08/26/17 08:03 1 TAB Levothyroxine Sodium (Synthroid Tab) 88 mcg DAILYBB PO 08/25/17 06:30 09/24/17 06:59 08/26/17 05:22 88 MCG Lorazepam (Ativan Tab) 0.5 mg BID PO 08/24/17 20:00 09/23/17 20:59 08/26/17 08:07 0.5 MG Magnesium Oxide (Mag-Ox Tab) 400 mg QAM PO 08/25/17 08:00 09/24/17 08:59 08/26/17 08:01 400 MG Metoprolol Tartrate (Lopressor Tab) 12.5 mg BID PO 08/24/17 20:00 09/23/17 20:59 08/26/17 08:03 12.5 MG Mirtazapine (Remeron Tab) 30 mg HS PO 08/24/17 21:00 09/23/17 20:59 08/25/17 20:02 30 MG Nifedipine (Procardia Xl Tab) 30 mg DAILY PO 08/25/17 09:00 09/24/17 08:59 08/26/17 08:02 30 MG Pantoprazole Sodium (Protonix Tab) 40 mg DAILY PO 08/25/17 08:00 09/24/17 08:59 08/26/17 08:03 40 MG Ranitidine HCl (zANTac TAB) 300 mg HS PO 08/25/17 22:00 09/24/17 21:59 Sodium Chloride 1,000 ml @ 50 mls/hr Q20H IV 08/25/17 10:45 09/24/17 10:44 08/26/17 08:08 50 MLS/HR Magnesium Hydroxide (Milk Of Magnesia Susp) 30 ml Q6H PRN PO 08/25/17 10:45 09/24/17 10:44 08/26/17 08:37 30 ML Last 24 Hours Test 08/25/17 10:16 08/26/17 08:20 Sodium Level 122 mmol/L 125 mmol/L Potassium Level 3.8 mmol/L 4.1 mmol/L Chloride Level 87 mmol/L 91 mmol/L Carbon Dioxide Level 27 mmol/L 26 mmol/L Anion Gap 8.0 mmol/L 8.0 mmol/L Blood Urea Nitrogen 36 mg/dl 38 mg/dl Creatinine 1.72 mg/dl 1.69 mg/dl Est Creatinine Clear Calc Drug Dose 16.3 ml/min 16.6 ml/min Estimated GFR () 30.7 31.3 Estimated GFR (Non- 26.5 27.0 BUN/Creatinine Ratio 20.8 22.6 Random Glucose 70 mg/dl 84 mg/dl Calcium Level 8.6 mg/dl 8.8 mg/dl White Blood Count 4.06 K/uL Red Blood Count 3.10 M/uL Hemoglobin 10.9 g/dL Hematocrit 31.8 % Mean Corpuscular Volume 102.6 fL Mean Corpuscular Hemoglobin 35.2 pg Mean Corpuscular Hemoglobin Concent 34.3 g/dl RDW Standard Deviation 47.9 fL RDW Coefficient of Variation 13.0 % Platelet Count 190 K/uL Mean Platelet Volume 10.3 fL Assessment & Plan hyponatremia-to recheck urine osm. currently on low rate of normal saline. will increase rate of fluids to 80cc/hr and monitor for signs of volume overload.
[2017-08-26 15:59] VITALS: BP_SYST 136; BP_SYST 153; BP_DIAS 55; BP_DIAS 69; PULSE 63; PULSE 99; TEMP 36.3; TEMP 36.5; O2SAT 95
--- NOTE | 2017-08-26 16:25 | Progress Note ---
Subjective Date of Service: Aug 26, 2017. Subjective Pt evaluation today including: conversation w/ patient, physical exam, lab review, review of studies, conversation w/ senior solutions workflow consultant, review of inpatient medication list Saw/examined the patient in room 451 She is doing okay, very anxious today Wondering if he kidneys are doing better Problem List Medical Problems: (1) Abdominal pain Status: Acute (2) Abdominal pain Status: Acute (3) Acute on chronic renal insufficiency Status: Acute (4) Bilateral pleural effusion Status: Acute (5) Chronic hyponatremia Status: Acute (6) Chronic kidney disease Status: Acute (7) Chronic renal insufficiency Status: Acute (8) Closed head injury Status: Acute (9) Constipation Status: Acute (10) Constipation Status: Acute (11) Constipation Status: Acute (12) Constipation Status: Acute (13) Decreased urine output Status: Acute (14) Degenerative arthritis of cervical spine Status: Acute (15) Dehydration Status: Acute (16) Dehydration Status: Acute (17) Dehydration Status: Acute (18) Dehydration Status: Acute (19) Dehydration Status: Acute (20) Dehydration Status: Acute (21) Depression Status: Acute (22) Diarrhea Status: Acute (23) Elevated serum creatinine Status: Acute (24) Failure to thrive Status: Acute (25) Fall Status: Acute (26) Fall Status: Acute (27) Generalized weakness Status: Acute (28) Generalized weakness Status: Acute (29) Generalized weakness Status: Acute (30) Generalized weakness Status: Acute (31) Generalized weakness Status: Acute (32) Heart palpitations Status: Acute (33) Hypomagnesemia Status: Acute (34) Hyponatremia Status: Acute (35) Hyponatremia Status: Acute (36) Hyponatremia Status: Acute (37) Hyponatremia Status: Acute (38) Hyponatremia Status: Acute (39) Hyponatremia Status: Acute (40) Hyponatremia Status: Acute (41) Hyponatremia Status: Acute (42) Leg weakness Status: Acute (43) Multiple complaints Status: Acute (44) New onset atrial flutter Status: Acute (45) Orthostatic hypotension Status: Acute (46) Orthostatic hypotension Status: Acute (47) Palpitations Status: Chronic (48) Palpitations Status: Acute (49) Pericardial effusion Status: Acute (50) Pneumonia involving left lung Status: Acute (51) Precordial chest pain Status: Acute (52) Precordial chest pain Status: Acute (53) Premature ventricular contractions Status: Acute (54) Premature ventricular contractions Status: Acute (55) PVC (premature ventricular contraction) Status: Acute (56) PVC's (premature ventricular contractions) Status: Acute (57) Renal insufficiency Status: Acute (58) Ribs, multiple fractures Status: Acute (59) Sore neck Status: Acute (60) Symptomatic anemia Status: Acute (61) Symptoms involving urinary system Status: Acute (62) Symptoms involving urinary system Status: Acute (63) Urinary retention Status: Acute (64) UTI (urinary tract infection) Status: Acute (65) UTI (urinary tract infection) Status: Acute (66) Weakness Status: Acute (67) Weakness Status: Acute (68) Weakness Status: Acute (69) Weakness Status: Acute (70) Weakness Status: Acute Review of Systems Respiratory: No shortness of breath Cardiac: No chest pain Female : + problem reported (+urinary urgency), No dysuria, No urinary frequency, No hematuria Medications Current Inpatient Medications Medications (Trade) Dose Ordered Sig/Jassi Route Start Time Stop Time Status Last Admin Dose Admin Acetaminophen (Tylenol Tab) 650 mg Q4H PRN PO 08/24/17 18:15 09/23/17 18:14 Polyethylene (Miralax Powder Packet) 17 gm DAILY PRN PO 08/24/17 18:15 09/23/17 18:14 08/26/17 08:37 17 GM Ondansetron HCl (Zofran Inj) 4 mg Q6H PRN IV 08/24/17 18:15 09/23/17 18:14 Heparin Sodium (Porcine) (Heparin Sq 5000 Unit/0.5ml) 5,000 unit Q12 SQ 08/24/17 21:00 09/23/17 20:59 08/26/17 08:07 5,000 UNIT Aspirin (Ecotrin Tab) 81 mg DAILY PO 08/25/17 08:00 09/24/17 08:59 08/26/17 08:00 81 MG Atorvastatin Calcium (Lipitor Tab) 10 mg HS PO 08/24/17 21:00 09/23/17 20:59 08/25/17 20:02 10 MG Bumetanide (Bumex Tab) 0.5 mg QAM PO 08/25/17 08:00 09/24/17 08:59 08/26/17 08:01 0.5 MG Escitalopram Oxalate (Lexapro Tab) 10 mg DAILY PO 08/25/17 08:00 09/24/17 08:59 08/26/17 08:00 10 MG Ferrous Sulfate (Feosol Tab) 325 mg BID PO 08/24/17 20:00 09/23/17 20:59 08/26/17 08:00 325 MG Lactobacillus Acidophilus (Floranex Tab) 1 tab BID PO 08/24/17 20:00 09/23/17 20:59 08/26/17 08:03 1 TAB Levothyroxine Sodium (Synthroid Tab) 88 mcg DAILYBB PO 08/25/17 06:30 09/24/17 06:59 08/26/17 05:22 88 MCG Lorazepam (Ativan Tab) 0.5 mg BID PO 08/24/17 20:00 09/23/17 20:59 08/26/17 08:07 0.5 MG Magnesium Oxide (Mag-Ox Tab) 400 mg QAM PO 08/25/17 08:00 09/24/17 08:59 08/26/17 08:01 400 MG Metoprolol Tartrate (Lopressor Tab) 12.5 mg BID PO 08/24/17 20:00 09/23/17 20:59 08/26/17 08:03 12.5 MG Mirtazapine (Remeron Tab) 30 mg HS PO 08/24/17 21:00 09/23/17 20:59 08/25/17 20:02 30 MG Nifedipine (Procardia Xl Tab) 30 mg DAILY PO 08/25/17 09:00 09/24/17 08:59 08/26/17 08:02 30 MG Pantoprazole Sodium (Protonix Tab) 40 mg DAILY PO 08/25/17 08:00 09/24/17 08:59 08/26/17 08:03 40 MG Ranitidine HCl (zANTac TAB) 300 mg HS PO 08/25/17 22:00 09/24/17 21:59 Sodium Chloride 1,000 ml @ 80 mls/hr [id number] IV 08/25/17 10:45 09/24/17 10:44 08/26/17 08:08 50 MLS/HR Magnesium Hydroxide (Milk Of Magnesia Susp) 30 ml Q6H PRN PO 08/25/17 10:45 09/24/17 10:44 08/26/17 08:37 30 ML Objective Vital Signs Date Time Temp Pulse Resp B/P (MAP) Pulse Ox O2 Delivery O2 Flow Rate FiO2 08/26/17 16:00 Room Air 08/26/17 15:59 36.5 63 20 136/55 (82) 95 Room Air 08/26/17 08:00 Room Air 08/26/17 07:58 36.4 61 18 182/56 (98) 98 Room Air 08/26/17 00:28 36.6 63 18 165/52 (89) 98 Room Air 08/26/17 00:00 Room Air 08/25/17 20:00 Room Air Physical Exam General Appearance: no apparent distress, + cachetic, + thin Respiratory/Chest: no respiratory distress, no accessory muscle use Cardiovascular: regular rate, rhythm Extremities: normal inspection, no pedal edema Neurologic/Psychiatric: alert Laboratory Results Last 24 Hours Test 08/26/17 08:20 White Blood Count 4.06 K/uL Red Blood Count 3.10 M/uL Hemoglobin 10.9 g/dL Hematocrit 31.8 % Mean Corpuscular Volume 102.6 fL Mean Corpuscular Hemoglobin 35.2 pg Mean Corpuscular Hemoglobin Concent 34.3 g/dl RDW Standard Deviation 47.9 fL RDW Coefficient of Variation 13.0 % Platelet Count 190 K/uL Mean Platelet Volume 10.3 fL Sodium Level 125 mmol/L Potassium Level 4.1 mmol/L Chloride Level 91 mmol/L Carbon Dioxide Level 26 mmol/L Anion Gap 8.0 mmol/L Blood Urea Nitrogen 38 mg/dl Creatinine 1.69 mg/dl Est Creatinine Clear Calc Drug Dose 16.6 ml/min Estimated GFR () 31.3 Estimated GFR (Non- 27.0 BUN/Creatinine Ratio 22.6 Random Glucose 84 mg/dl Calcium Level 8.8 mg/dl Assessment and Plan This is an 86 year old female with a PMH of CKD stage IV, anxiety, anemia of chronic renal failure, chronic hyponatremia, 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
[2017-08-26 20:29] VITALS: BP 160/54; PULSE 62; TEMP 36.8; O2SAT 94
[2017-08-26] MEDS: MIRTAZAPINE TAB 15 MG TAB PO SCH (21:15)
[2017-08-26] MEDS: RANITIDINE HCL 150 MG TAB PO SCH (21:15)
[2017-08-26] MEDS: ATORVASTATIN 10 MG TAB PO SCH (22:49)
[2017-08-27] VITALS: BP 153/61; PULSE 57; TEMP 36.4; O2SAT 98
[2017-08-27] MEDS: ACETAMINOPHEN 325 MG TAB PO PRN ×4 (02:52→15:49)
[2017-08-27] MEDS: SODIUM CHLORIDE 0.9% 1000ML 1,000 ML IV SCH (05:42)
[2017-08-27] MEDS: LEVOTHYROXINE 88 MCG TAB PO SCH (05:44)
[2017-08-27] MEDS: LORAZEPAM 0.5 MG TAB PO SCH ×2 (07:09→20:07)
[2017-08-27] MEDS: METOPROLOL TARTRATE 25 MG TAB PO SCH ×2 (07:46→20:10)
[2017-08-27] MEDS: MAGNESIUM OXIDE 400 MG TAB PO SCH (07:46)
[2017-08-27] MEDS: PANTOprazole SOD 40 MG TAB PO SCH (07:47)
[2017-08-27] MEDS: ASPIRIN 81 MG ECTAB PO SCH (07:47)
[2017-08-27] MEDS: ESCITALOPRAM OXALATE 10 MG TAB PO SCH (07:47)
[2017-08-27] MEDS: LACTOBACILLUS ACIDOPHILUS (FLORANEX) TAB PO SCH ×2 (07:47→20:10)
[2017-08-27] MEDS: BUMETANIDE 1 MG TAB PO SCH (07:47)
[2017-08-27] MEDS: NIFEdipine 30 MG CR TAB PO SCH (07:48)
[2017-08-27] MEDS: FERROUS SULFATE 325 MG TAB PO SCH ×2 (07:48→20:09)
[2017-08-27 07:57] VITALS: BP_SYST 172; BP_SYST 207; BP_DIAS 62; BP_DIAS 73; PULSE 81; TEMP 36.4; O2SAT 98
[2017-08-27 08:39] LABS: HEMATOCRIT 30.2 % (37-47); HEMOGLOBIN 10.3 g/dL (12.0-16.0); MEAN CELL VOLUME 103.1 fL (80-100); MEAN CORPUSCULAR HEMOGLOBIN 35.2 pg (25-34); MEAN CORPUSCULAR HGB CONC 34.1 g/dl (32-36); MEAN PLATELET VOLUME 9.6 fL (7.4-10.4); PLATELET COUNT 178 K/uL (130-400); RED CELL DISTRIBUTION WIDTH CV 13.3 % (11.5-14.5); RED CELL DISTRIBUTION WIDTH SD 49.2 fL (36.4-46.3); WHITE BLOOD COUNT 4.88 K/uL (4.8-10.8)
[2017-08-27 09:15] LABS: CALCIUM 8.7 mg/dl (8.5-10.1); CREATININE 1.36 mg/dl (0.60-1.20); POTASSIUM 4.7 mmol/L (3.5-5.1)
[2017-08-27] MEDS: HEPARIN SOD 5000 UNIT/0.5 ML CARP SQ SCH ×2 (09:47→20:23)
[2017-08-27 11:08] VITALS: BP 182/90; PULSE 51
--- NOTE | 2017-08-27 14:49 | Progress Note ---
Subjective Date of Service: Aug 27, 2017. Subjective Pt evaluation today including: conversation w/ patient, physical exam, lab review, review of studies, review of inpatient medication list Saw/examined the patient in room 451 She continues to be anxious - tells me she lost her on night and has been down about that as well Worried about how much water she can drink Problem List Medical Problems: (1) Abdominal pain Status: Acute (2) Abdominal pain Status: Acute (3) Acute on chronic renal insufficiency Status: Acute (4) Bilateral pleural effusion Status: Acute (5) Chronic hyponatremia Status: Acute (6) Chronic kidney disease Status: Acute (7) Chronic renal insufficiency Status: Acute (8) Closed head injury Status: Acute (9) Constipation Status: Acute (10) Constipation Status: Acute (11) Constipation Status: Acute (12) Constipation Status: Acute (13) Decreased urine output Status: Acute (14) Degenerative arthritis of cervical spine Status: Acute (15) Dehydration Status: Acute (16) Dehydration Status: Acute (17) Dehydration Status: Acute (18) Dehydration Status: Acute (19) Dehydration Status: Acute (20) Dehydration Status: Acute (21) Depression Status: Acute (22) Diarrhea Status: Acute (23) Elevated serum creatinine Status: Acute (24) Failure to thrive Status: Acute (25) Fall Status: Acute (26) Fall Status: Acute (27) Generalized weakness Status: Acute (28) Generalized weakness Status: Acute (29) Generalized weakness Status: Acute (30) Generalized weakness Status: Acute (31) Generalized weakness Status: Acute (32) Heart palpitations Status: Acute (33) Hypomagnesemia Status: Acute (34) Hyponatremia Status: Acute (35) Hyponatremia Status: Acute (36) Hyponatremia Status: Acute (37) Hyponatremia Status: Acute (38) Hyponatremia Status: Acute (39) Hyponatremia Status: Acute (40) Hyponatremia Status: Acute (41) Hyponatremia Status: Acute (42) Leg weakness Status: Acute (43) Multiple complaints Status: Acute (44) New onset atrial flutter Status: Acute (45) Orthostatic hypotension Status: Acute (46) Orthostatic hypotension Status: Acute (47) Palpitations Status: Chronic (48) Palpitations Status: Acute (49) Pericardial effusion Status: Acute (50) Pneumonia involving left lung Status: Acute (51) Precordial chest pain Status: Acute (52) Precordial chest pain Status: Acute (53) Premature ventricular contractions Status: Acute (54) Premature ventricular contractions Status: Acute (55) PVC (premature ventricular contraction) Status: Acute (56) PVC's (premature ventricular contractions) Status: Acute (57) Renal insufficiency Status: Acute (58) Ribs, multiple fractures Status: Acute (59) Sore neck Status: Acute (60) Symptomatic anemia Status: Acute (61) Symptoms involving urinary system Status: Acute (62) Symptoms involving urinary system Status: Acute (63) Urinary retention Status: Acute (64) UTI (urinary tract infection) Status: Acute (65) UTI (urinary tract infection) Status: Acute (66) Weakness Status: Acute (67) Weakness Status: Acute (68) Weakness Status: Acute (69) Weakness Status: Acute (70) Weakness Status: Acute Review of Systems Constitutional: + weakness Respiratory: No shortness of breath Cardiac: No chest pain Abdomen: + pain, No nausea, No vomiting, No diarrhea Psychiatric: + depression symptoms, + anxiety Medications Current Inpatient Medications Medications (Trade) Dose Ordered Sig/Jassi Route Start Time Stop Time Status Last Admin Dose Admin Acetaminophen (Tylenol Tab) 650 mg Q4H PRN PO 08/24/17 18:15 09/23/17 18:14 08/27/17 07:45 650 MG Polyethylene (Miralax Powder Packet) 17 gm DAILY PRN PO 08/24/17 18:15 09/23/17 18:14 08/26/17 08:37 17 GM Ondansetron HCl (Zofran Inj) 4 mg Q6H PRN IV 08/24/17 18:15 09/23/17 18:14 Heparin Sodium (Porcine) (Heparin Sq 5000 Unit/0.5ml) 5,000 unit Q12 SQ 08/24/17 21:00 09/23/17 20:59 08/26/17 20:50 5,000 UNIT Aspirin (Ecotrin Tab) 81 mg DAILY PO 08/25/17 08:00 09/24/17 08:59 08/27/17 07:47 81 MG Atorvastatin Calcium (Lipitor Tab) 10 mg HS PO 08/24/17 21:00 09/23/17 20:59 08/26/17 22:49 10 MG Bumetanide (Bumex Tab) 0.5 mg QAM PO 08/25/17 08:00 09/24/17 08:59 08/27/17 07:47 0.5 MG Escitalopram Oxalate (Lexapro Tab) 10 mg DAILY PO 08/25/17 08:00 09/24/17 08:59 08/27/17 07:47 10 MG Ferrous Sulfate (Feosol Tab) 325 mg BID PO 08/24/17 20:00 09/23/17 20:59 08/27/17 07:48 325 MG Lactobacillus Acidophilus (Floranex Tab) 1 tab BID PO 08/24/17 20:00 09/23/17 20:59 08/27/17 07:47 1 TAB Levothyroxine Sodium (Synthroid Tab) 88 mcg DAILYBB PO 08/25/17 06:30 09/24/17 06:59 08/27/17 05:44 88 MCG Lorazepam (Ativan Tab) 0.5 mg BID PO 08/24/17 20:00 09/23/17 20:59 08/27/17 07:09 0.5 MG Magnesium Oxide (Mag-Ox Tab) 400 mg QAM PO 08/25/17 08:00 09/24/17 08:59 08/27/17 07:46 400 MG Metoprolol Tartrate (Lopressor Tab) 12.5 mg BID PO 08/24/17 20:00 09/23/17 20:59 08/27/17 07:46 12.5 MG Mirtazapine (Remeron Tab) 30 mg HS PO 08/24/17 21:00 09/23/17 20:59 08/26/17 21:15 30 MG Nifedipine (Procardia Xl Tab) 30 mg DAILY PO 08/25/17 09:00 09/24/17 08:59 08/27/17 07:48 30 MG Pantoprazole Sodium (Protonix Tab) 40 mg DAILY PO 08/25/17 08:00 09/24/17 08:59 08/27/17 07:47 40 MG Ranitidine HCl (zANTac TAB) 300 mg HS PO 08/25/17 22:00 09/24/17 21:59 08/26/17 21:15 300 MG Sodium Chloride 1,000 ml @ 50 mls/hr Q20H IV 08/25/17 10:45 09/24/17 10:44 08/27/17 05:42 80 MLS/HR Magnesium Hydroxide (Milk Of Magncarmelita Susp) 30 ml Q6H PRN PO 08/25/17 10:45 09/24/17 10:44 08/26/17 08:37 30 ML Buspirone HCl (Buspar Tab) 5 mg TID PO 08/27/17 14:00 09/26/17 13:59 08/27/17 13:59 5 MG Objective Vital Signs Date Time Temp Pulse Resp B/P (MAP) Pulse Ox O2 Delivery O2 Flow Rate FiO2 08/27/17 11:08 51 182/90 (120) 08/27/17 08:00 Room Air 08/27/17 07:57 36.4 81 20 207/62 (110) 98 Room Air 172/73 (106) 08/27/17 00:15 Room Air 08/27/17 00:00 36.4 57 18 153/61 (91) 98 Room Air 08/26/17 20:29 36.8 62 18 160/54 (89) 94 Room Air 08/26/17 16:00 Room Air 08/26/17 15:59 36.5 63 20 136/55 (82) 95 Room Air Physical Exam General Appearance: no apparent distress, + thin Respiratory/Chest: no respiratory distress, no accessory muscle use Cardiovascular: regular rate, rhythm Extremities: normal inspection, no pedal edema Neurologic/Psychiatric: alert, + depressed affect Laboratory Results Last 24 Hours Test 08/26/17 23:30 08/27/17 08:18 Urine Osmolality 216 mOms/kg White Blood Count 4.88 K/uL Red Blood Count 2.93 M/uL Hemoglobin 10.3 g/dL Hematocrit 30.2 % Mean Corpuscular Volume 103.1 fL Mean Corpuscular Hemoglobin 35.2 pg Mean Corpuscular Hemoglobin Concent 34.1 g/dl RDW Standard Deviation 49.2 fL RDW Coefficient of Variation 13.3 % Platelet Count 178 K/uL Mean Platelet Volume 9.6 fL Sodium Level 131 mmol/L Potassium Level 4.7 mmol/L Chloride Level 99 mmol/L Carbon Dioxide Level 25 mmol/L Anion Gap 7.0 mmol/L Blood Urea Nitrogen 31 mg/dl Creatinine 1.36 mg/dl Est Creatinine Clear Calc Drug Dose 20.6 ml/min Estimated GFR () 40.7 Estimated GFR (Non- 35.1 BUN/Creatinine Ratio 23.1 Random Glucose 87 mg/dl Calcium Level 8.7 mg/dl Magnesium Level 2.6 mg/dl Assessment and Plan This is an 86 year old female with a PMH of CKD stage IV, anxiety, anemia of chronic renal failure, chronic hyponatremia, 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 - presents with hyponatremia Hyponatremia 08/27 sodium level up to 131, which is better than baseline can stop fluids appreciate nephro input likely d/c home in AM PT/OT 08/26 appreciate nephrology input gentle IV hydration sodium increasing monitor Na sodium is chronically around 127-130 CKD stage IV creatinine is at baseline gentle IV hydration avoid nephrotoxic agents when able Depression/Anxiety 08/27 patient depressed, going through life stressors ( of ) she is already anxious and sees a psychiatrist about once every 3-4 months, though has missed a few appointments recently will continue Lexapro and Ativan BID - adding BuSpar to help alleviate anxiety and potentiate effects of SSRI 08/26 continue Lexapro continue Ativan BID may need an additional dose of Ativan due to worsening anxiety DVT ppx subq heparin FULL CODE
[2017-08-27 15:21] VITALS: BP_SYST 153; BP_SYST 192; BP_DIAS 65; BP_DIAS 70; PULSE 65; TEMP 36.6; O2SAT 98
--- NOTE | 2017-08-27 15:34 | Nephrology Progress Note ---
Nephrology Progress Note Date of Service: Aug 27, 2017. Subjective 86 yo female with hx of siadh who presented with hyponatremia after drinking more water than usual. Sodium levels are improving. recently had ns increased to 80cc/hr and then reduced back to 50cc/hr. patient continues to have underlying anxiety. denies any chest pain or nausea. Objective Date Time Temp Pulse Resp B/P (MAP) Pulse Ox O2 Delivery O2 Flow Rate FiO2 08/27/17 15:21 36.6 65 18 192/65 (107) 98 Room Air 153/70 (97) 08/27/17 11:08 51 182/90 (120) 08/27/17 08:00 Room Air 08/27/17 07:57 36.4 81 20 207/62 (110) 98 Room Air 172/73 (106) 08/27/17 00:15 Room Air 08/27/17 00:00 36.4 57 18 153/61 (91) 98 Room Air 08/26/17 20:29 36.8 62 18 160/54 (89) 94 Room Air 08/26/17 16:00 Room Air 08/26/17 15:59 36.5 63 20 136/55 (82) 95 Room Air Physical Exam: General-aaox3 Eyes-no scleral icterus ENT-mmm Neck-supple Lungs-cta Heart-regular with ectopy Abdomen-bs+ s/nt/nd Extremities-mild edema Neuro-nonfocal Current Inpatient Medications Medications (Trade) Dose Ordered Sig/Jassi Route Start Time Stop Time Status Last Admin Dose Admin Acetaminophen (Tylenol Tab) 650 mg Q4H PRN PO 08/24/17 18:15 09/23/17 18:14 08/27/17 07:45 650 MG Polyethylene (Miralax Powder Packet) 17 gm DAILY PRN PO 08/24/17 18:15 09/23/17 18:14 08/26/17 08:37 17 GM Ondansetron HCl (Zofran Inj) 4 mg Q6H PRN IV 08/24/17 18:15 09/23/17 18:14 Heparin Sodium (Porcine) (Heparin Sq 5000 Unit/0.5ml) 5,000 unit Q12 SQ 08/24/17 21:00 09/23/17 20:59 08/26/17 20:50 5,000 UNIT Aspirin (Ecotrin Tab) 81 mg DAILY PO 08/25/17 08:00 09/24/17 08:59 08/27/17 07:47 81 MG Atorvastatin Calcium (Lipitor Tab) 10 mg HS PO 08/24/17 21:00 09/23/17 20:59 08/26/17 22:49 10 MG Bumetanide (Bumex Tab) 0.5 mg QAM PO 08/25/17 08:00 09/24/17 08:59 08/27/17 07:47 0.5 MG Escitalopram Oxalate (Lexapro Tab) 10 mg DAILY PO 08/25/17 08:00 09/24/17 08:59 08/27/17 07:47 10 MG Ferrous Sulfate (Feosol Tab) 325 mg BID PO 08/24/17 20:00 09/23/17 20:59 08/27/17 07:48 325 MG Lactobacillus Acidophilus (Floranex Tab) 1 tab BID PO 08/24/17 20:00 09/23/17 20:59 08/27/17 07:47 1 TAB Levothyroxine Sodium (Synthroid Tab) 88 mcg DAILYBB PO 08/25/17 06:30 09/24/17 06:59 08/27/17 05:44 88 MCG Lorazepam (Ativan Tab) 0.5 mg BID PO 08/24/17 20:00 09/23/17 20:59 08/27/17 07:09 0.5 MG Magnesium Oxide (Mag-Ox Tab) 400 mg QAM PO 08/25/17 08:00 09/24/17 08:59 08/27/17 07:46 400 MG Metoprolol Tartrate (Lopressor Tab) 12.5 mg BID PO 08/24/17 20:00 09/23/17 20:59 08/27/17 07:46 12.5 MG Mirtazapine (Remeron Tab) 30 mg HS PO 08/24/17 21:00 09/23/17 20:59 08/26/17 21:15 30 MG Nifedipine (Procardia Xl Tab) 30 mg DAILY PO 08/25/17 09:00 09/24/17 08:59 08/27/17 07:48 30 MG Pantoprazole Sodium (Protonix Tab) 40 mg DAILY PO 08/25/17 08:00 09/24/17 08:59 08/27/17 07:47 40 MG Ranitidine HCl (zANTac TAB) 300 mg HS PO 08/25/17 22:00 09/24/17 21:59 08/26/17 21:15 300 MG Sodium Chloride 1,000 ml @ 50 mls/hr Q20H IV 08/25/17 10:45 09/24/17 10:44 08/27/17 05:42 80 MLS/HR Magnesium Hydroxide (Milk Of Magnesia Susp) 30 ml Q6H PRN PO 08/25/17 10:45 09/24/17 10:44 08/26/17 08:37 30 ML Buspirone HCl (Buspar Tab) 5 mg TID PO 08/27/17 14:00 09/26/17 13:59 08/27/17 13:59 5 MG Last 24 Hours Test 08/26/17 23:30 08/27/17 08:18 Urine Osmolality 216 mOms/kg White Blood Count 4.88 K/uL Red Blood Count 2.93 M/uL Hemoglobin 10.3 g/dL Hematocrit 30.2 % Mean Corpuscular Volume 103.1 fL Mean Corpuscular Hemoglobin 35.2 pg Mean Corpuscular Hemoglobin Concent 34.1 g/dl RDW Standard Deviation 49.2 fL RDW Coefficient of Variation 13.3 % Platelet Count 178 K/uL Mean Platelet Volume 9.6 fL Sodium Level 131 mmol/L Potassium Level 4.7 mmol/L Chloride Level 99 mmol/L Carbon Dioxide Level 25 mmol/L Anion Gap 7.0 mmol/L Blood Urea Nitrogen 31 mg/dl Creatinine 1.36 mg/dl Est Creatinine Clear Calc Drug Dose 20.6 ml/min Estimated GFR () 40.7 Estimated GFR (Non- 35.1 BUN/Creatinine Ratio 23.1 Random Glucose 87 mg/dl Calcium Level 8.7 mg/dl Magnesium Level 2.6 mg/dl Assessment & Plan hyponatremia-sodium improved to 131. will continue to follow levels. continue fluid restriction with NS 50cc/hr with tentative plan to stop NS and continue fluid restriction tomorrow if sodium levels continue to improve. This patient was seen and treated with direct collaboration with Dr. Hwang. Thank you for the opportunity to participate in this patient's care. Appreciate the Consult. ATTENDING NOTE: I performed a history and physical examination of the patient, including specifically on history- continues to have significant anxiety with chest pain, on physical exam-cta, and my impression and plan are hyponatremia-continue iv fluids but decreased rate from 80 to 50cc/hr with plan to stop tomorrow and continue relative fluid restirction. I have discussed the patient's management with Lisa Woodard PA-C, Please refer to above note for the documented findings and plan of care. Karen Oncwojciech DO
[2017-08-27 16:00] VITALS: O2SAT 98
[2017-08-27] MEDS: MIRTAZAPINE TAB 15 MG TAB PO SCH (20:08)
[2017-08-27] MEDS: ATORVASTATIN 10 MG TAB PO SCH (20:09)
[2017-08-27] MEDS: RANITIDINE HCL 150 MG TAB PO SCH (20:11)
[2017-08-27 23:10] VITALS: BP 158/64; PULSE 69; TEMP 36.5; O2SAT 98
[2017-08-28] VITALS: O2SAT 98
[2017-08-28] MEDS: SODIUM CHLORIDE 0.9% 1000ML 1,000 ML IV SCH (01:17)
[2017-08-28] MEDS: LEVOTHYROXINE 88 MCG TAB PO SCH (05:44)
[2017-08-28 06:46] LABS: HEMATOCRIT 27.8 % (37-47); HEMOGLOBIN 9.3 g/dL (12.0-16.0); MEAN CELL VOLUME 105.3 fL (80-100); MEAN CORPUSCULAR HEMOGLOBIN 35.2 pg (25-34); MEAN CORPUSCULAR HGB CONC 33.5 g/dl (32-36); MEAN PLATELET VOLUME 9.5 fL (7.4-10.4); PLATELET COUNT 151 K/uL (130-400); RED CELL DISTRIBUTION WIDTH CV 13.2 % (11.5-14.5); RED CELL DISTRIBUTION WIDTH SD 49.3 fL (36.4-46.3); WHITE BLOOD COUNT 4.22 K/uL (4.8-10.8)
[2017-08-28 07:24] LABS: CALCIUM 8.2 mg/dl (8.5-10.1); CREATININE 1.56 mg/dl (0.60-1.20); POTASSIUM 4.7 mmol/L (3.5-5.1)
[2017-08-28 08:00] VITALS: BP 183/76; PULSE 76; TEMP 36.4; O2SAT 98
[2017-08-28] MEDS: METOPROLOL TARTRATE 25 MG TAB PO SCH (08:21)
[2017-08-28] MEDS: LORAZEPAM 0.5 MG TAB PO SCH (08:21)
[2017-08-28] MEDS: MAGNESIUM OXIDE 400 MG TAB PO SCH (08:22)
[2017-08-28] MEDS: NIFEdipine 30 MG CR TAB PO SCH (08:23)
[2017-08-28] MEDS: LACTOBACILLUS ACIDOPHILUS (FLORANEX) TAB PO SCH (08:23)
[2017-08-28] MEDS: PANTOprazole SOD 40 MG TAB PO SCH (08:23)
[2017-08-28] MEDS: ESCITALOPRAM OXALATE 10 MG TAB PO SCH (08:24)
[2017-08-28] MEDS: FERROUS SULFATE 325 MG TAB PO SCH (08:24)
[2017-08-28] MEDS: ASPIRIN 81 MG ECTAB PO SCH (08:24)
[2017-08-28] MEDS: BUMETANIDE 1 MG TAB PO SCH (08:24)
[2017-08-28] MEDS: HEPARIN SOD 5000 UNIT/0.5 ML CARP SQ SCH (08:27)
--- NOTE | 2017-08-28 10:47 | Nephrology Progress Note ---
Nephrology Progress Note Date of Service: Aug 28, 2017. Subjective 86 yo female with hx of siadh who presented with hyponatremia after drinking more water than usual. Sodium levels continue to improve. IV fluid stopped. patient stressed out about fluid restriction and concerned about her ability to urinate. Does not seem to remember urinating when nurse verifies that she did recently. discussed ways to help her with dr norma at home. continues to have underlying anxiety. no CP or nausea. Objective Date Time Temp Pulse Resp B/P (MAP) Pulse Ox O2 Delivery O2 Flow Rate FiO2 08/28/17 08:00 36.4 76 20 183/76 (111) 98 08/28/17 00:00 98 Room Air 08/27/17 23:10 36.5 69 20 158/64 (95) 98 Room Air 08/27/17 16:00 98 Room Air 08/27/17 15:21 36.6 65 18 192/65 (107) 98 Room Air 153/70 (97) 08/27/17 11:08 51 182/90 (120) Physical Exam: General-aaox3, thin, anxious Eyes-no scleral icterus ENT-mmm Neck-supple Lungs-cta Heart-regular with ectopy Abdomen-bs+ s/nt/nd Extremities-trace b/l le edema Neuro-nonfocal Current Inpatient Medications Medications (Trade) Dose Ordered Sig/Jassi Route Start Time Stop Time Status Last Admin Dose Admin Acetaminophen (Tylenol Tab) 650 mg Q4H PRN PO 08/24/17 18:15 09/23/17 18:14 08/27/17 15:49 650 MG Polyethylene (Miralax Powder Packet) 17 gm DAILY PRN PO 08/24/17 18:15 09/23/17 18:14 08/26/17 08:37 17 GM Ondansetron HCl (Zofran Inj) 4 mg Q6H PRN IV 08/24/17 18:15 09/23/17 18:14 Heparin Sodium (Porcine) (Heparin Sq 5000 Unit/0.5ml) 5,000 unit Q12 SQ 08/24/17 21:00 09/23/17 20:59 08/28/17 08:27 5,000 UNIT Aspirin (Ecotrin Tab) 81 mg DAILY PO 08/25/17 08:00 09/24/17 08:59 08/28/17 08:24 81 MG Atorvastatin Calcium (Lipitor Tab) 10 mg HS PO 08/24/17 21:00 09/23/17 20:59 08/27/17 20:09 10 MG Bumetanide (Bumex Tab) 0.5 mg QAM PO 08/25/17 08:00 09/24/17 08:59 08/28/17 08:24 0.5 MG Escitalopram Oxalate (Lexapro Tab) 10 mg DAILY PO 08/25/17 08:00 09/24/17 08:59 08/28/17 08:24 10 MG Ferrous Sulfate (Feosol Tab) 325 mg BID PO 08/24/17 20:00 09/23/17 20:59 08/28/17 08:24 325 MG Lactobacillus Acidophilus (Floranex Tab) 1 tab BID PO 08/24/17 20:00 09/23/17 20:59 08/28/17 08:23 1 TAB Levothyroxine Sodium (Synthroid Tab) 88 mcg DAILYBB PO 08/25/17 06:30 09/24/17 06:59 08/28/17 05:44 88 MCG Lorazepam (Ativan Tab) 0.5 mg BID PO 08/24/17 20:00 09/23/17 20:59 08/28/17 08:21 0.5 MG Magnesium Oxide (Mag-Ox Tab) 400 mg QAM PO 08/25/17 08:00 09/24/17 08:59 08/28/17 08:22 400 MG Metoprolol Tartrate (Lopressor Tab) 12.5 mg BID PO 08/24/17 20:00 09/23/17 20:59 08/28/17 08:21 12.5 MG Mirtazapine (Remeron Tab) 30 mg HS PO 08/24/17 21:00 09/23/17 20:59 08/27/17 20:08 30 MG Nifedipine (Procardia Xl Tab) 30 mg DAILY PO 08/25/17 09:00 09/24/17 08:59 08/28/17 08:23 30 MG Pantoprazole Sodium (Protonix Tab) 40 mg DAILY PO 08/25/17 08:00 09/24/17 08:59 08/28/17 08:23 40 MG Ranitidine HCl (zANTac TAB) 300 mg HS PO 08/25/17 22:00 09/24/17 21:59 08/27/17 20:11 300 MG Magnesium Hydroxide (Milk Of Magnesia Susp) 30 ml Q6H PRN PO 08/25/17 10:45 09/24/17 10:44 08/26/17 08:37 30 ML Buspirone HCl (Buspar Tab) 5 mg TID PO 08/27/17 14:00 09/26/17 13:59 08/28/17 08:23 5 MG Last 24 Hours Test 08/28/17 06:26 White Blood Count 4.22 K/uL Red Blood Count 2.64 M/uL Hemoglobin 9.3 g/dL Hematocrit 27.8 % Mean Corpuscular Volume 105.3 fL Mean Corpuscular Hemoglobin 35.2 pg Mean Corpuscular Hemoglobin Concent 33.5 g/dl RDW Standard Deviation 49.3 fL RDW Coefficient of Variation 13.2 % Platelet Count 151 K/uL Mean Platelet Volume 9.5 fL Sodium Level 132 mmol/L Potassium Level 4.7 mmol/L Chloride Level 100 mmol/L Carbon Dioxide Level 28 mmol/L Anion Gap 4.0 mmol/L Blood Urea Nitrogen 29 mg/dl Creatinine 1.56 mg/dl Est Creatinine Clear Calc Drug Dose 18.0 ml/min Estimated GFR () 34.5 Estimated GFR (Non- 29.8 BUN/Creatinine Ratio 18.8 Random Glucose 72 mg/dl Calcium Level 8.2 mg/dl Other Studies: 08/27/17 08/28/17 08/29/17 08:00 08:00 08:00 Intake Total 3285 ml 1983 ml Output Total 1300 ml 1530 ml Balance 1985 ml 453 ml Assessment & Plan hyponatremia-sodium improved to 132. will continue to follow levels. continue fluid restriction. IV fluids stopped. discussed appropriate amount of water patient should be drinking while at home with patient. ok from renal standpoint to follow up with patient as an outpatient. creatinine within baseline. volume status appropriate. to note that patient is of small stature so outpt GFR should be assessed with that in mind as it is likely worse than estimated. This patient was seen and treated with direct collaboration with Dr. Hwang. Thank you for the opportunity to participate in this patient's care. Appreciate the Consult. ATTENDING NOTE: I performed a history and physical examination of the patient, including specifically on history- continues to have anxiety, on physical exam-cta, regular heart rate, and my impression and plan are hyponatremia-stop the iv fluids this morning, continue relative fluid restriction. recheck bmp next week. I have discussed the patient's management with Lisa Woodard PA-C, Please refer to above note for the documented findings and plan of care. Karen Oncu DO
--- NOTE | 2017-08-28 11:55 | Progress Note ---
Subjective Date of Service: Aug 28, 2017. Subjective Pt evaluation today including: conversation w/ patient, physical exam, lab review, review of studies, review of inpatient medication list Saw/examined the patient in room 451 No problems/issues, very anxious Worried about not urinating as much if she cuts down her fluid intake reassured her; let her know the plan for discharge and she is agreeable Problem List Medical Problems: (1) Abdominal pain Status: Acute (2) Abdominal pain Status: Acute (3) Acute on chronic renal insufficiency Status: Acute (4) Bilateral pleural effusion Status: Acute (5) Chronic hyponatremia Status: Acute (6) Chronic kidney disease Status: Acute (7) Chronic renal insufficiency Status: Acute (8) Closed head injury Status: Acute (9) Constipation Status: Acute (10) Constipation Status: Acute (11) Constipation Status: Acute (12) Constipation Status: Acute (13) Decreased urine output Status: Acute (14) Degenerative arthritis of cervical spine Status: Acute (15) Dehydration Status: Acute (16) Dehydration Status: Acute (17) Dehydration Status: Acute (18) Dehydration Status: Acute (19) Dehydration Status: Acute (20) Dehydration Status: Acute (21) Depression Status: Acute (22) Diarrhea Status: Acute (23) Elevated serum creatinine Status: Acute (24) Failure to thrive Status: Acute (25) Fall Status: Acute (26) Fall Status: Acute (27) Generalized weakness Status: Acute (28) Generalized weakness Status: Acute (29) Generalized weakness Status: Acute (30) Generalized weakness Status: Acute (31) Generalized weakness Status: Acute (32) Heart palpitations Status: Acute (33) Hypomagnesemia Status: Acute (34) Hyponatremia Status: Acute (35) Hyponatremia Status: Acute (36) Hyponatremia Status: Acute (37) Hyponatremia Status: Acute (38) Hyponatremia Status: Acute (39) Hyponatremia Status: Acute (40) Hyponatremia Status: Acute (41) Hyponatremia Status: Acute (42) Leg weakness Status: Acute (43) Multiple complaints Status: Acute (44) New onset atrial flutter Status: Acute (45) Orthostatic hypotension Status: Acute (46) Orthostatic hypotension Status: Acute (47) Palpitations Status: Chronic (48) Palpitations Status: Acute (49) Pericardial effusion Status: Acute (50) Pneumonia involving left lung Status: Acute (51) Precordial chest pain Status: Acute (52) Precordial chest pain Status: Acute (53) Premature ventricular contractions Status: Acute (54) Premature ventricular contractions Status: Acute (55) PVC (premature ventricular contraction) Status: Acute (56) PVC's (premature ventricular contractions) Status: Acute (57) Renal insufficiency Status: Acute (58) Ribs, multiple fractures Status: Acute (59) Sore neck Status: Acute (60) Symptomatic anemia Status: Acute (61) Symptoms involving urinary system Status: Acute (62) Symptoms involving urinary system Status: Acute (63) Urinary retention Status: Acute (64) UTI (urinary tract infection) Status: Acute (65) UTI (urinary tract infection) Status: Acute (66) Weakness Status: Acute (67) Weakness Status: Acute (68) Weakness Status: Acute (69) Weakness Status: Acute (70) Weakness Status: Acute Review of Systems Respiratory: No cough, No sputum, No shortness of breath Cardiac: No chest pain, No edema, No palpitations Female : No dysuria, No urinary frequency Psychiatric: + anxiety Medications Current Inpatient Medications Medications (Trade) Dose Ordered Sig/Jassi Route Start Time Stop Time Status Last Admin Dose Admin Acetaminophen (Tylenol Tab) 650 mg Q4H PRN PO 08/24/17 18:15 09/23/17 18:14 08/27/17 15:49 650 MG Polyethylene (Miralax Powder Packet) 17 gm DAILY PRN PO 08/24/17 18:15 09/23/17 18:14 08/26/17 08:37 17 GM Ondansetron HCl (Zofran Inj) 4 mg Q6H PRN IV 08/24/17 18:15 09/23/17 18:14 Heparin Sodium (Porcine) (Heparin Sq 5000 Unit/0.5ml) 5,000 unit Q12 SQ 08/24/17 21:00 09/23/17 20:59 08/28/17 08:27 5,000 UNIT Aspirin (Ecotrin Tab) 81 mg DAILY PO 08/25/17 08:00 09/24/17 08:59 08/28/17 08:24 81 MG Atorvastatin Calcium (Lipitor Tab) 10 mg HS PO 08/24/17 21:00 09/23/17 20:59 08/27/17 20:09 10 MG Bumetanide (Bumex Tab) 0.5 mg QAM PO 08/25/17 08:00 09/24/17 08:59 08/28/17 08:24 0.5 MG Escitalopram Oxalate (Lexapro Tab) 10 mg DAILY PO 08/25/17 08:00 09/24/17 08:59 08/28/17 08:24 10 MG Ferrous Sulfate (Feosol Tab) 325 mg BID PO 08/24/17 20:00 09/23/17 20:59 08/28/17 08:24 325 MG Lactobacillus Acidophilus (Floranex Tab) 1 tab BID PO 08/24/17 20:00 09/23/17 20:59 08/28/17 08:23 1 TAB Levothyroxine Sodium (Synthroid Tab) 88 mcg DAILYBB PO 08/25/17 06:30 09/24/17 06:59 08/28/17 05:44 88 MCG Lorazepam (Ativan Tab) 0.5 mg BID PO 08/24/17 20:00 09/23/17 20:59 08/28/17 08:21 0.5 MG Magnesium Oxide (Mag-Ox Tab) 400 mg QAM PO 08/25/17 08:00 09/24/17 08:59 08/28/17 08:22 400 MG Metoprolol Tartrate (Lopressor Tab) 12.5 mg BID PO 08/24/17 20:00 09/23/17 20:59 08/28/17 08:21 12.5 MG Mirtazapine (Remeron Tab) 30 mg HS PO 08/24/17 21:00 09/23/17 20:59 08/27/17 20:08 30 MG Nifedipine (Procardia Xl Tab) 30 mg DAILY PO 08/25/17 09:00 09/24/17 08:59 08/28/17 08:23 30 MG Pantoprazole Sodium (Protonix Tab) 40 mg DAILY PO 08/25/17 08:00 09/24/17 08:59 08/28/17 08:23 40 MG Ranitidine HCl (zANTac TAB) 300 mg HS PO 08/25/17 22:00 09/24/17 21:59 08/27/17 20:11 300 MG Magnesium Hydroxide (Milk Of Magnesia Susp) 30 ml Q6H PRN PO 08/25/17 10:45 09/24/17 10:44 08/26/17 08:37 30 ML Buspirone HCl (Buspar Tab) 5 mg TID PO 08/27/17 14:00 09/26/17 13:59 08/28/17 08:23 5 MG Objective Vital Signs Date Time Temp Pulse Resp B/P (MAP) Pulse Ox O2 Delivery O2 Flow Rate FiO2 08/28/17 08:00 Room Air 08/28/17 08:00 36.4 76 20 183/76 (111) 98 08/28/17 00:00 98 Room Air 08/27/17 23:10 36.5 69 20 158/64 (95) 98 Room Air 08/27/17 16:00 98 Room Air 08/27/17 15:21 36.6 65 18 192/65 (107) 98 Room Air 153/70 (97) Physical Exam General Appearance: no apparent distress, + thin Respiratory/Chest: no respiratory distress, no accessory muscle use Cardiovascular: no edema, no murmur, + systolic murmur Neurologic/Psychiatric: no motor/sensory deficits, alert, normal mood/affect Laboratory Results Last 24 Hours Test 08/28/17 06:26 White Blood Count 4.22 K/uL Red Blood Count 2.64 M/uL Hemoglobin 9.3 g/dL Hematocrit 27.8 % Mean Corpuscular Volume 105.3 fL Mean Corpuscular Hemoglobin 35.2 pg Mean Corpuscular Hemoglobin Concent 33.5 g/dl RDW Standard Deviation 49.3 fL RDW Coefficient of Variation 13.2 % Platelet Count 151 K/uL Mean Platelet Volume 9.5 fL Sodium Level 132 mmol/L Potassium Level 4.7 mmol/L Chloride Level 100 mmol/L Carbon Dioxide Level 28 mmol/L Anion Gap 4.0 mmol/L Blood Urea Nitrogen 29 mg/dl Creatinine 1.56 mg/dl Est Creatinine Clear Calc Drug Dose 18.0 ml/min Estimated GFR () 34.5 Estimated GFR (Non- 29.8 BUN/Creatinine Ratio 18.8 Random Glucose 72 mg/dl Calcium Level 8.2 mg/dl Assessment and Plan This is an 86 year old female with a PMH of CKD stage IV, anxiety, anemia of chronic renal failure, chronic hyponatremia, 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 - presents with hyponatremia Hyponatremia 08/28 Na = 132 creat at baseline fluid restriction on discharge 08/27 sodium level up to 131, which is better than baseline can stop fluids appreciate nephro input likely d/c home in AM PT/OT 08/26 appreciate nephrology input gentle IV hydration sodium increasing monitor Na sodium is chronically around 127-130 CKD stage IV creatinine is at baseline gentle IV hydration avoid nephrotoxic agents when able Depression/Anxiety 08/28 will d/c home on Lexapro, Ativan BID, BuSpar 08/27 patient depressed, going through life stressors ( of ) she is already anxious and sees a psychiatrist about once every 3-4 months, though has missed a few appointments recently will continue Lexapro and Ativan BID - adding BuSpar to help alleviate anxiety and potentiate effects of SSRI 08/26 continue Lexapro continue Ativan BID may need an additional dose of Ativan due to worsening anxiety DVT ppx subq heparin FULL CODE
[2017-08-28] MEDS ORDERED: BSP5 PO (11:57)
--- NOTE | 2017-08-28 12:12 | Discharge Instructions ---
Discharge Instructions Date of Service Aug 28, 2017. Admission Reason for Admission: Hyponatremia Discharge Discharge Diagnosis / Problem: Hyponatremia (low sodium), Anxiety Discharge Goals Goal(s): Decrease discomfort, Improve function, Diagnostic testing, Therapeutic intervention Activity Recommendations Activity Limitations: resume your previous activity . Instructions / Follow-Up Instructions / Follow-Up Please follow-up with Dr. Cordova (covering for Dr. Quevedo) on September 01 at 10:55AM * please restrict fluids, you should drink around 1.2 to 1.5L per day * You will be started on BuSpar for anxiety; continue taking Ativan and Lexapro Current Hospital Diet Patient's current hospital diet: Renal Diet Discharge Diet Recommended Diet: Regular Diet Pending Studies Studies pending at discharge: no Medical Emergencies . Who to Call and When: Medical Emergencies: If at any time you feel your situation is an emergency, please call 911 immediately. . Non-Emergent Contact Non-Emergency issues call your: Primary Care Provider . . "Provider Documentation" section prepared by Shawn Moeller. . VTE Core Measure Inpt VTE Proph given/why not?: Unfractionated heparin SQ
--- NOTE | 2017-08-28 12:14 | Discharge Summary ---
Discharge Summary Date of Service Aug 28, 2017. Discharge Summary Admission Date: Aug 24, 2017 at 18:09 Discharge Date: Aug 28, 2017 Discharge Disposition: Home Principal Diagnosis: Hyponatremia SIADH Anxiety Medication Reconciliation New Medications: Buspirone HCl (Buspirone HCl) 5 Mg Tab 5 MG PO TID for 30 Days, #90 TAB Continued Medications: Aspirin (Aspirin Ec) 81 Mg Tab 81 MG PO DAILY Atorvastatin (Lipitor) 10 Mg Tab 10 MG PO HS, TAB Bumetanide (Bumex) 1 Mg Tab 0.5 MG PO QAM, TAB Docusate Sodium (Docusate Sodium) 100 Mg Cap 100 MG PO BID PRN for Constipation Epoetin Rafael (Procrit) 10,000 Units Inj 31398 UNITS SQ Q14D Escitalopram (Lexapro) 10 Mg Tab 10 MG PO DAILY Ferrous Sulfate (Ferrous Sulfate) 325 Mg Tab 325 MG PO BID, TAB Levothyroxine Sodium (Synthroid) 88 Mcg Tab 88 MCG PO DAILY, TAB Lorazepam (Ativan) 0.5 Mg Tab 0.5 MG PO BID Magnesium Oxide (Mag-Ox) 400 Mg Tab 400 MG PO QAM Metoprolol Tartrate (Lopressor) (Lopressor) 25 Mg Tab 12.5 MG PO BID, TAB Mirtazapine (Remeron) 30 Mg Tab 1 TAB PO HS for 30 Days, #30 TAB 1 Refill Nifedipine (Nifedipine Er) 30 Mg Tab 30 MG PO DAILY, 5 Refills Pantoprazole (Protonix) 40 Mg Tab 40 MG PO DAILY, TAB Ranitidine (Zantac) 150 Mg Tab 300 MG PO HS Admission Information HPI (per Admitting provider): Pt is 86 y/o F with PMH SIADH, HTN, CKD IV, anxiety, anemia of chronic renal failure, GERD, frequent falls, OA presented to ER from PCP's office with c/o hyponatremia found on labs today. Pt was admitted on 08/15/17 - 08/18/17 for hyponatremia and UTI. Pt states since discharge she has been drinking increased amount of water as she was trying to "flush kidneys". Shes states that was dizzy last admission but that has resolved. Pt states this morning she slipped and fell between couch and end table. States bruise to dorsal R hand, without hand pain or other injury. Denies hitting head. Several days ago had loose BM, states yesterday was soft. Denies fever/chills, diaphoresis, N/V, NOEL, syncope, vision changes, neck pain, CP, SOB, orthopnea, palpitations, cough, sore throat , choking, otalgia, rhinorrhea, abdominal pain, paresthesias, weakness, extremity edema, rashes, urinary symptoms. In ER pt afebrile, P:62, R:16, BP: 148/52, O2 sat: 99% on RA. Hgb: 11 (stable for pt), K: 4.3, ma.2, Na: 117 (was 127 on 08/18/17). Cr: 1.4 (was 1.8 on ). negative troponin. U/A: unremarkable. Pt given 500ml NSS in ER. Physical Exam (per Admitting): General Appearance: WD/WN, no apparent distress Head: normocephalic, atraumatic Eyes: normal inspection, PERRL, EOMI, sclerae normal ENT: hearing grossly normal, pharynx normal, + pertinent finding (mucous membranes moist) Neck: supple, trachea midline Respiratory/Chest: chest non-tender, lungs clear, normal breath sounds, no respiratory distress, no accessory muscle use Cardiovascular: regular rate, rhythm, no edema, no murmur Abdomen/GI: normal bowel sounds, non tender, soft Back: no CVA tenderness Extremities/Musculoskelatal: no calf tenderness, normal capillary refill, no pedal edema, normal range of motion, non-tender Neurologic/Psych: alert, normal mood/affect (slightly anxious but calms quickly with family interaction and redirection), oriented x 3 Skin: normal color, warm/dry, + pertinent finding (+ecchymosis dorsal hand) Hospital Course This is an 86 year old female with a PMH of CKD stage IV, anxiety, anemia of chronic renal failure, chronic hyponatremia, 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 - presents with hyponatremia Hyponatremia 08/28 Na = 132 creat at baseline fluid restriction on discharge 08/27 sodium level up to 131, which is better than baseline can stop fluids appreciate nephro input likely d/c home in AM PT/OT 08/26 appreciate nephrology input gentle IV hydration sodium increasing monitor Na sodium is chronically around 127-130 CKD stage IV creatinine is at baseline gentle IV hydration avoid nephrotoxic agents when able Depression/Anxiety 08/28 will d/c home on Lexapro, Ativan BID, BuSpar 08/27 patient depressed, going through life stressors ( of ) she is already anxious and sees a psychiatrist about once every 3-4 months, though has missed a few appointments recently will continue Lexapro and Ativan BID - adding BuSpar to help alleviate anxiety and potentiate effects of SSRI 08/26 continue Lexapro continue Ativan BID may need an additional dose of Ativan due to worsening anxiety DVT ppx subq heparin FULL CODE Total time spent on discharge = 40 minutes This includes examination of the patient, discharge planning, medication reconciliation, and communication with other providers. Discharge Instructions Please follow-up with Dr. Cordova (covering for Dr. Quevedo) on September 01 at 10:55AM * please restrict fluids, you should drink around 1.2 to 1.5L per day * You will be started on BuSpar for anxiety; continue taking Ativan and Lexapro
[2017-08-28 12:50] VITALS: BP 183/76; PULSE 76; TEMP 36.4; O2SAT 98
== END 2017-08-28 14:19 | disposition home health service (06) | DRG 644 ==
LOC: C.EDB 14:59 → C.MS4W 18:09 → ENRESERV 18:28
PROVIDERS: ADMIT Internal Medicine; ATTEND Family Medicine
DX: E22.2 Syndrome of inappropriate secretion of antidiuretic hormone (principal); N18.4 Chronic kidney disease, stage 4 (severe); I12.9 Hypertensive chronic kidney disease with stage 1 through stage 4 chronic kidney disease, or unspecified chronic kidney disease; D63.1 Anemia in chronic kidney disease; F41.9 Anxiety disorder, unspecified; F32.9 Major depressive disorder, single episode, unspecified; E87.5 Hyperkalemia; K21.9 Gastro-esophageal reflux disease without esophagitis; E03.9 Hypothyroidism, unspecified; E78.5 Hyperlipidemia, unspecified; Z87.440 Personal history of urinary (tract) infections; Z63.4 Disappearance and death of family member; Z79.82 Long term (current) use of aspirin; Z79.899 Other long term (current) drug therapy; Z88.0 Allergy status to penicillin; Z82.49 Family history of ischemic heart disease and other diseases of the circulatory system

== ENCOUNTER 2017-09-07 04:28 | Emergency (ER) | payer OTHER ==
[~2017-09-07] VITALS: Ht 144.8 cm; Wt 50.0 kg
[~2017-09-07 04:28] MED LIST changes: +BSP5 PO; -CFT250 PO; -LCTX PO; -MIRT15TA3 PO; +MIRT30TA PO
[2017-09-07 04:34] VITALS: TEMP 36.8; Ht 144.8 cm; Wt 50.0 kg
[2017-09-07 04:53] VITALS: O2SAT 99
[2017-09-07] MEDS ORDERED: ACETAMINOPHEN 325 MG TAB PO STA (04:58)
[2017-09-07 05:27] VITALS: BP 189/46; PULSE 60; O2SAT 100
--- NOTE | 2017-09-07 06:42 | EMERGENCY ROOM VISIT NOTE ---
History Report prepared by Unique: Cindy García Under the Supervision of: Dr. Darby Ward D.O. First contact with patient: 04:39 Chief Complaint: FALL Stated Complaint: FALL- HIT HEAD History of Present Illness The patient is an 86 year old female who presents to the Emergency Room with complaints of a resolved fall that occurred tonight. The patient tripped and fell on her kitchen floor and landed on her buttocks and then her back, noting that there was no loss of consciousness. The patient states that she was able to get herself up without the help of her daughter. She notes that most of her body is aching, including her right elbow, head, and hip. The patient reports that she has had a hip replacement surgery in the past, noting that she is able to move her hip without any difficulties. She denies any abdominal pain or dizziness. The patient states that she takes a low dose of Aspirin. Source of History: patient Onset: today Position: other (global) Quality: other (fall) Timing: other (resolved) Associated Symptoms: No headache, No abdominal pain Note: Associated symptoms include: body aches all over her body, including her left elbow, head, and hip. Review of Systems See HPI for pertinent positives & negatives. A total of 10 systems reviewed and were otherwise negative. Past Medical & Surgical Medical Problems: (1) Anemia, chronic disease (2) Anxiety (3) Chest pain (4) CKD (chronic kidney disease), stage IV (5) Dizziness (6) FRANCES (generalized anxiety disorder) (7) GERD (gastroesophageal reflux disease) (8) H/O echocardiogram (9) HLD (hyperlipidemia) (10) HTN (hypertension) (11) Hypothyroidism (12) Major depressive disorder, recurrent, moderate (13) Palpitations (14) SIADH (syndrome of inappropriate ADH production) Surgical Problems: (1) Hx of appendectomy (2) Hx of cholecystectomy (3) Hx of dilation and curettage (4) Status post total hip replacement, left Family History FHx: heart disease Hypertension Social History Smoking Status: Never Smoker Alcohol Use: none Drug Use: none Marital Status: Housing Status: lives with family Occupation Status: retired Current/Historical Medications Scheduled Aspirin (Aspirin Ec), 81 MG PO DAILY Atorvastatin (Lipitor), 10 MG PO HS Bumetanide (Bumex), 0.5 MG PO QAM Buspirone HCl (Buspirone HCl), 5 MG PO TID Epoetin Rafael (Procrit), 10,000 UNITS SQ Q14D Escitalopram (Lexapro), 10 MG PO DAILY Ferrous Sulfate (Ferrous Sulfate), 325 MG PO BID Levothyroxine Sodium (Synthroid), 88 MCG PO DAILY Lorazepam (Ativan), 0.5 MG PO BID Magnesium Oxide (Mag-Ox), 400 MG PO QAM Metoprolol Tartrate (Lopressor) (Lopressor), 12.5 MG PO BID Mirtazapine (Remeron), 1 TAB PO HS Nifedipine (Nifedipine Er), 30 MG PO DAILY Pantoprazole (Protonix), 40 MG PO DAILY Ranitidine (Zantac), 300 MG PO HS Scheduled PRN Docusate Sodium (Docusate Sodium), 100 MG PO BID PRN for Constipation Allergies Coded Allergies: Penicillins (Verified Allergy, Intermediate, HIVES, 08/24/17) Iron Sucrose (Verified Adverse Reaction, Mild, n&v, abd pain, 08/24/17) Physical Exam Vital Signs Date Time Temp Pulse Resp B/P (MAP) Pulse Ox O2 Delivery O2 Flow Rate FiO2 09/07/17 05:27 60 18 189/46 100 Room Air 09/07/17 04:53 99 Room Air 09/07/17 04:47 58 09/07/17 04:34 36.8 60 18 172/46 97 Room Air Physical Exam HEENT: Head - normocephalic and atraumatic Pupils are equal, round, and reactive to light. Extraocular eye muscles are intact, and sclera are anicteric. Nose - moist nasal mucosa without discharge. Mouth - moist buccal mucosa. Oropharynx is nonerythematous and there is no tonsillar exudate or edema noted. Neck: Supple; no JVD, nuchal rigidity, cervical lymphadenopathy. Heart: Regular rate and rhythm. There is a normal S1 and S2 with no murmurs, clicks, or gallops appreciated. Lungs: Clear to auscultation bilaterally with no wheezes, rales, or rhonchi. Abdomen: Soft, completely nontender, nondistended, with good bowel sounds. There are no palpable pulsatile masses or hepatosplenomegaly. There is no guarding, rigidity, or rebound noted. Extremities: Contusion over medial aspect of knee and old bruises as well. No evidence of cyanosis, clubbing, or edema. The patient had a full range of motion of the left hip. There are easily palpable peripheral pulses. Skin: warm and dry with good turgor and no rashes. Medical Decision & Procedures ER Provider Diagnostic Interpretation: Radiology results as stated below per my review and the radiologist's interpretation: CT HEAD: No acute intracranial abnormality. Chronic small vessel ischemic disease and senescent changes. No acute calvarial abnormality. Minimal mucosal thickening the paranasal sinuses. CT C SPINE: No acute fracture or traumatic malalignment of the cervical spine. Radiologist: Eber Gordon MD Medications Administered Medications (Trade) Dose Ordered Sig/Jassi Route Start Time Stop Time Status Last Admin Dose Admin Acetaminophen (Tylenol Tab) 650 mg NOW STAT PO 09/07/17 04:58 09/07/17 04:59 DC 09/07/17 05:07 650 MG Procedure 0458: Ordered Tylenol Tab 650mg PO. ED Course 0449: Past medical records reviewed. The patient was evaluated in room A9. A complete history and physical exam was performed. 0458: Ordered Tylenol Tab 650mg PO. The patient went for CT scan of the brain and cervical spine as described above. 0549: Upon reevaluation, the patient is feeling significantly better. I discussed findings and results with her. The patient verbalized agreement of the treatment plan. She was discharged home. Medical Decision The patient is a 86 year old female who presents to the ED after a resolved fall. Differential diagnosis includes c-spine injury, skull fracture, intracranial trauma, closed head injury. The patient states that she slipped on her socks and fell to the ground striking the back of her head. Should no loss of consciousness. She did have a hematoma to the left occipital region of the skull. They applied ice to hematoma and that has resolved. The patient did have some tenderness with palpation over the occiput. CT scan of the brain and cervical spine were unremarkable. The patient was feeling much better after the Tylenol. I've encouraged her to wear tread socks to avoid further falls. Medication Reconcilliation Current Medication List: was personally reviewed by me Blood Pressure Screening Patient's blood pressure: Elevated blood pressure Blood pressure disposition: Elevated BP felt to be situational Impression Primary Impression: Fall Additional Impression: Closed head injury Scribe Attestation The scribe's documentation has been prepared under my direction and personally reviewed by me in its entirety. I confirm that the note above accurately reflects all work, treatment, procedures, and medical decision making performed by me. Departure Information Dispostion Home / Self-Care Referrals Yogesh Quevedo III, M.D. (PCP) Forms HOME CARE DOCUMENTATION FORM, IMPORTANT VISIT INFORMATION Patient Instructions [facility] Additional Instructions Take fall precautions at home. wear tread socks to prevent slips in socks. Use tylenol for pain Problem Qualifiers Primary Impression: Fall Encounter type: initial encounter Qualified Codes: W19.XXXA - Unspecified fall, initial encounter Additional Impression: Closed head injury Encounter type: initial encounter Qualified Codes: S09.90XA - Unspecified injury of head, initial encounter
--- NOTE | 2017-09-07 07:15 | DIAGNOSTIC IMAGING REPORT ---
CERVICAL SPINE W/O CLINICAL HISTORY: 86 years-old Female presenting with eval for trauma - fall, head trauma. TECHNIQUE: Multidetector CT of the cervical spine was performed without the use of intravenous contrast. IV contrast: None. A dose lowering technique was used consistent with the principles of ALARA (as low as reasonably achievable). COMPARISON: 01/25/2017. CT DOSE (mGy.cm): The estimated cumulative dose is 1430.[address] head. FINDINGS: Contract Driver topogram: Unremarkable. Straightening of normal cervical lordosis likely secondary to degenerative change and positional. Mild osteopenia. No acute fracture or subluxation. Multilevel degenerative changes with disc osteophyte complexes to varying degrees at nearly every level. Extensive facet arthropathy greater on the right. Partial osseous fusion with significant disc space loss at C5-6 and C6-7. Disc height loss also noted at C4-5. Mild kyphotic curvature in the lower cervical spine. Osseous neural foraminal narrowing noted at C3-4 through C6-7 to varying degrees. Mild osseous effacement of the spinal canal secondary to slight kyphotic curvature and prominent disc osteophyte complexes in the lower cervical region. Skull base intact. Lung apices clear. Limited intracranial evaluation within normal limits. Soft tissues of the neck remarkable for atherosclerosis. IMPRESSION: 1. No acute osseous injury of the cervical spine. 2. Multilevel degenerative changes. Electronically signed by: Thiago Washington M.D. 09/07/2017 7:14 AM Dictated Date/Time: 09/07/2017 7:07 AM
--- NOTE | 2017-09-07 07:33 | DIAGNOSTIC IMAGING REPORT ---
CT OF THE HEAD WITHOUT CONTRAST CLINICAL HISTORY: Fall. Head trauma. COMPARISON STUDY: Head CT August 15, 2017. CT DOSE: 1430.21 mGy.cm TECHNIQUE: Helical axial images of the head were obtained without IV contrast. Automated exposure control was utilized for the study. A dose lowering technique was utilized adhering to the principles of ALARA. FINDINGS: No acute intracranial hemorrhage, midline shift or mass effect is present. Ventricular system is stable. Basilar cisterns are patent. There are no extra-axial collections. No calvarial fracture. Visualized portions of the sinuses and the mastoid air cells are clear. IMPRESSION: 1. No acute intracranial findings. 2. No calvarial fracture. Electronically signed by: Hayder Barber M.D. 09/07/2017 7:32 AM Dictated Date/Time: 09/07/2017 7:23 AM
== END 2017-09-07 06:12 | disposition home or self-care (01) ==
LOC: C.EDB 04:29 → C.EDA 06:12
DX: S09.90XA Unspecified injury of head, initial encounter (principal); W01.0XXA Fall on same level from slipping, tripping and stumbling without subsequent striking against object, initial encounter; Y92.010 Kitchen of single-family (private) house as the place of occurrence of the external cause; S80.00XA Contusion of unspecified knee, initial encounter; M25.559 Pain in unspecified hip; D64.9 Anemia, unspecified; I12.9 Hypertensive chronic kidney disease with stage 1 through stage 4 chronic kidney disease, or unspecified chronic kidney disease; N18.4 Chronic kidney disease, stage 4 (severe); F41.1 Generalized anxiety disorder; E78.5 Hyperlipidemia, unspecified; E03.9 Hypothyroidism, unspecified; F32.9 Major depressive disorder, single episode, unspecified; E22.2 Syndrome of inappropriate secretion of antidiuretic hormone; K21.9 Gastro-esophageal reflux disease without esophagitis; Z79.82 Long term (current) use of aspirin; Z96.642 Presence of left artificial hip joint; Z82.49 Family history of ischemic heart disease and other diseases of the circulatory system

== ENCOUNTER 2017-12-25 11:46 | Emergency (ER) | payer OTHER ==
[~2017-12-25] VITALS: Ht 144.8 cm; Wt 53.0 kg
[~2017-12-25 11:46] MED LIST changes: -NIFE1TAB53 PO; +NIFE30TA86 PO; +RANI150T85 PO; -ZNTT/150 PO
[2017-12-25 11:58] VITALS: TEMP 36.4
[2017-12-25 12:25] VITALS: Ht 144.8 cm; Wt 53.0 kg
--- NOTE | 2017-12-25 12:44 | EMERGENCY ROOM VISIT NOTE ---
History Report prepared by Unique: Cristofer Delvalle Under the Supervision of: Dr. Carlos Scanlon M.D. First contact with patient: 12:04 Chief Complaint: URINARY SYMPTOMS Stated Complaint: DIZZINESS, TROUBLE URINATING Nursing Triage Summary: PT HERE WITH LOWER ABD PAIN AND PRESSURE AND BURNING WITH URINATION HX OF BLADDER INFECTIONS History of Present Illness The patient is a 87 year old female who presents to the Emergency Room with complaints of persistent pain with urination that started a couple of days ago. She rates her discomfort as an 8/10 in severity. The patient states that she has a history of UTIs. She reports that starting a couple of days ago she noticed she was experiencing urinary difficulties and burning with urinations. The patient states her symptoms have been accompanied lower abdominal pain and pressure. She reports that she was able to urinate multiple times this morning. She denies fevers, hematuria, nausea, vomiting, and diarrhea. Source of History: patient Onset: a couple of days ago Position: other (global) Symptom Intensity: 8/10 Quality: burning Timing: other (persistent) Associated Symptoms: + abdominal pain, No fevers, No nausea, No vomiting, No diarrhea Note: Denies: hematuria Review of Systems See HPI for pertinent positives and negatives. A total of ten systems were reviewed and were otherwise negative. Past Medical & Surgical Medical Problems: (1) Anemia, chronic disease (2) Anxiety (3) Chest pain (4) CKD (chronic kidney disease), stage IV (5) Dizziness (6) FRANCES (generalized anxiety disorder) (7) GERD (gastroesophageal reflux disease) (8) H/O echocardiogram (9) HLD (hyperlipidemia) (10) HTN (hypertension) (11) Hypothyroidism (12) Major depressive disorder, recurrent, moderate (13) Palpitations (14) SIADH (syndrome of inappropriate ADH production) Surgical Problems: (1) Hx of appendectomy (2) Hx of cholecystectomy (3) Hx of dilation and curettage (4) Status post total hip replacement, left Family History FHx: heart disease Hypertension Social History Smoking Status: Never Smoker Alcohol Use: none Drug Use: none Marital Status: Housing Status: lives with family Occupation Status: retired Current/Historical Medications Scheduled Aspirin (Aspirin Ec), 81 MG PO DAILY Atorvastatin (Lipitor), 10 MG PO HS Bumetanide (Bumex), 0.5 MG PO QAM Buspirone HCl (Buspirone HCl), 5 MG PO DAILY Ciprofloxacin Hcl (Cipro), 500 MG PO BID Citalopram Hydrobromide (Citalopram Hydrobromide), 5 MG PO DAILY Epoetin Rafael (Procrit), 10,000 UNITS SQ Q14D Ferrous Sulfate (Ferrous Sulfate), 325 MG PO BID Levothyroxine Sodium (Synthroid), 88 MCG PO DAILY Lorazepam (Ativan), 0.5 MG PO BID Magnesium Oxide (Mag-Ox), 400 MG PO QAM Metoprolol Tartrate (Lopressor) (Lopressor), 12.5 MG PO BID Mirtazapine (Remeron), 15 MG PO HS Nifedipine (Nifedipine Er), 30 MG PO DAILY Pantoprazole (Protonix), 40 MG PO DAILY Ranitidine (Zantac), 300 MG PO HS Sodium Chloride (Sodium Chloride), 1 GM PO DAILY Scheduled PRN Docusate Sodium (Docusate Sodium), 100 MG PO BID PRN for Constipation Allergies Coded Allergies: Penicillins (Verified Allergy, Intermediate, HIVES, 12/27/17) Iron Sucrose (Verified Adverse Reaction, Mild, n&v, abd pain, 12/27/17) Physical Exam Vital Signs Date Time Temp Pulse Resp B/P (MAP) Pulse Ox O2 Delivery O2 Flow Rate FiO2 12/25/17 17:30 70 16 143/71 97 12/25/17 15:45 72 18 164/44 98 Room Air 12/25/17 13:40 79 14 164/39 97 Room Air 12/25/17 11:58 36.4 78 16 124/61 99 Physical Exam Physical Exam GENERAL: She is oriented to person, place, and time. She appears well- developed and well-nourished. She does not appear distressed. ____ HENT: Exam performed. Head: Normocephalic and atraumatic. Right Ear: External ear normal. No mastoid tenderness. Left Ear: External ear normal. No mastoid tenderness. Mouth/Throat: The oropharynx is clear and moist. No trismus in the jaw. No dental abscesses or uvula swelling. No oropharyngeal exudate or tonsillar abscesses. ____ EYES: Conjunctivae and EOM are normal. Pupils are equal, round, and reactive to light. Right eye exhibits no discharge. Left eye exhibits no discharge. No scleral icterus. ____ NECK: Normal range of motion. Neck supple. No JVD present. No spinous process tenderness present. No carotid bruit present. No rigidity. No tracheal deviation and normal range of motion present. No Brudzinski's sign and no Kernig 's sign noted. ____ CV: Normal rate, regular rhythm, normal heart sounds and intact distal pulses. There is no peripheral edema. Palpable radial pulses bue. ____ PULM/CHEST: Effort normal and breath sounds normal. No respiratory distress. No stridor. She has no wheezes. She has no rales. Chest Wall: She exhibits no tenderness. ____ ABD: The abdomen is soft. Bowel sounds are normal. She has no distension. No mass is present. Pain on palpation of the suprapubic region. There is no rebound , no guarding, no Grant's sign and no tenderness at McBurney's point. Rovsig negative MUSC/SKEL: Normal range of motion. There is no peripheral edema, tenderness or deformity. LYMPH: No cervical adenopathy. ____ NEURO: She is alert and oriented to person, place, and time. She has normal strength. No cranial nerve deficit or sensory deficit. Coordination and gait normal. GCS eye subscore is 4. GCS verbal subscore is 5. GCS motor subscore is 6. Cerebellar tests wnl. ____ SKIN: Skin is warm and dry. She is not diaphoretic. ____ PSYCH: She has a normal mood and affect. Her behavior is normal. Judgment and thought content normal. ____ Medical Decision & Procedures Laboratory Results 12/25/17 13:10 Red Blood Count 2.93, Mean Corpuscular Volume 101.4, Mean Corpuscular Hemoglobin 34.8, Mean Corpuscular Hemoglobin Concent 34.3, Mean Platelet Volume 8.8, Neutrophils (%) (Auto) 59.6, Lymphocytes (%) (Auto) 31.6, Monocytes (%) ( Auto) 6.6, Eosinophils (%) (Auto) 1.6, Basophils (%) (Auto) 0.4, Neutrophils # ( Auto) 2.96, Lymphocytes # (Auto) 1.57, Monocytes # (Auto) 0.33, Eosinophils # ( Auto) 0.08, Basophils # (Auto) 0.02 12/25/17 13:10 Test 12/25/17 13:00 12/25/17 13:10 Urine Color YELLOW Urine Appearance CLEAR (CLEAR) Urine pH 6.0 (4.5-7.5) Urine Specific Unity 1.010 (1.000-1.030) Urine Protein NEG (NEG) Urine Glucose (UA) NEG (NEG) Urine Ketones NEG (NEG) Urine Occult Blood NEG (NEG) Urine Nitrite NEG (NEG) Urine Bilirubin NEG (NEG) Urine Urobilinogen NEG (NEG) Urine Leukocyte Esterase LARGE (NEG) Urine WBC (Auto) >30 /hpf (0-5) Urine RBC (Auto) 0-4 /hpf (0-4) Urine Hyaline Casts (Auto) 1-5 /lpf (0-5) Urine Epithelial Cells (Auto) 0-5 /lpf (0-5) Urine Bacteria (Auto) 2+ (NEG) White Blood Count 4.97 K/uL (4.8-10.8) Red Blood Count 2.93 M/uL (4.2-5.4) Hemoglobin 10.2 g/dL (12.0-16.0) Hematocrit 29.7 % (37-47) Mean Corpuscular Volume 101.4 fL (80-100) Mean Corpuscular Hemoglobin 34.8 pg (25-34) Mean Corpuscular Hemoglobin Concent 34.3 g/dl (32-36) Platelet Count 169 K/uL (130-400) Mean Platelet Volume 8.8 fL (7.4-10.4) Neutrophils (%) (Auto) 59.6 % Lymphocytes (%) (Auto) 31.6 % Monocytes (%) (Auto) 6.6 % Eosinophils (%) (Auto) 1.6 % Basophils (%) (Auto) 0.4 % Neutrophils # (Auto) 2.96 K/uL (1.4-6.5) Lymphocytes # (Auto) 1.57 K/uL (1.2-3.4) Monocytes # (Auto) 0.33 K/uL (0.11-0.59) Eosinophils # (Auto) 0.08 K/uL (0-0.5) Basophils # (Auto) 0.02 K/uL (0-0.2) RDW Standard Deviation 46.8 fL (36.4-46.3) RDW Coefficient of Variation 12.6 % (11.5-14.5) Immature Granulocyte % (Auto) 0.2 % Immature Granulocyte # (Auto) 0.01 K/uL (0.00-0.02) Anion Gap 7.0 mmol/L (3-11) Est Creatinine Clear Calc Drug Dose 14.0 ml/min Estimated GFR () 25.7 Estimated GFR (Non- 22.2 BUN/Creatinine Ratio 19.8 (10-20) Calcium Level 9.3 mg/dl (8.5-10.1) Date/Time Source Procedure Growth Status 12/25/17 13:00 Urine , Clean Catch Urine Culture - Final Escherichia Coli Complete Laboratory results reviewed by me Medications Administered Medications (Trade) Dose Ordered Sig/Jassi Route Start Time Stop Time Status Last Admin Dose Admin Sodium Chloride 500 ml @ 999 mls/hr Q31M STAT IV 12/25/17 13:41 12/25/17 14:11 DC 12/25/17 13:55 999 MLS/HR Sodium Chloride 500 ml @ 999 mls/hr Q31M STAT IV 12/25/17 14:49 12/25/17 15:19 DC 12/25/17 15:05 999 MLS/HR Ciprofloxacin/ Dextrose (Cipro / D5W) 400 mg NOW STAT IV 12/25/17 14:49 12/25/17 14:50 DC 12/25/17 15:09 400 MG ED Course 1220: The patient was evaluated in room B06. A complete history and physical exam was performed. 1237: EMR was reviewed. SIADH, HTN, CKD stage 4, anemia on chronic renal failure. Hemoglobin appears to run around 9 at baseline. Her creatinine usually runs between 1.4 and 1.8. 1340: The patients sodium is 132, which is baseline. Her creatinine is elevated at 1.98, which is higher than her baseline. 1341: Ordered Sodium Chloride 500 ml @ 999 mls/hr IV. 1408: I paged Rayo Peters PCP. 1448: I still have not heard back from Rossana Peters PCP. I will order Cipro and Saline for the patient. She will be discharged home. 1449: Ordered Ciprofloxacin/Dextrose 400 mg IV, Sodium Chloride 500 ml @ 999 mls /hr IV. Medical Decision 1220: The patient was evaluated in room B06. A complete history and physical exam was performed. 1237: EMR was reviewed. SIADH, HTN, CKD stage 4, anemia on chronic renal failure. Hemoglobin appears to run around 9 at baseline. Her creatinine usually runs between 1.4 and 1.8. 1340: The patients sodium is 132, which is baseline. Her creatinine is elevated at 1.98, which is higher than her baseline. 1341: Ordered Sodium Chloride 500 ml @ 999 mls/hr IV. 1408: I paged Rossana Peters PCP. 1448: I still have not heard back from Rossana Peters PCP. I will order Cipro and Saline for the patient. She will be discharged home. 1449: Ordered Ciprofloxacin/Dextrose 400 mg IV, Sodium Chloride 500 ml @ 999 mls /hr IV. Medication Reconcilliation Current Medication List: was personally reviewed by me Blood Pressure Screening Patient's blood pressure: Normal blood pressure Impression Primary Impression: UTI (urinary tract infection) Additional Impression: CKD (chronic kidney disease), stage IV Scribe Attestation The scribe's documentation has been prepared under my direction and personally reviewed by me in its entirety. I confirm that the note above accurately reflects all work, treatment, procedures, and medical decision making performed by me. The chart was completed utilizing [employer] voice recognition software. Grammatical errors, random word insertions, pronoun errors, and incomplete sentences are an occasional consequence of this system due to software limitations, ambient noise, and hardware issues. Any formal questions or concerns about the content, text, or information contained within the body of this dictation should be directly addressed to the physician for clarification. Departure Information Dispostion Home / Self-Care Prescriptions Ciprofloxacin Hcl (CIPRO) 500 Mg Tab 500 MG PO BID for 7 Days, #14 TAB Prov: Carlos Scnalon M.D. 12/25/17 Referrals Yogesh Quevedo III, M.D. (PCP) Forms HOME CARE DOCUMENTATION FORM, IMPORTANT VISIT INFORMATION Patient Instructions ED UTI Cystitis Female, [facility] Problem Qualifiers Primary Impression: UTI (urinary tract infection) Urinary tract infection type: site unspecified Hematuria presence: without hematuria Qualified Codes: N39.0 - Urinary tract infection, site not specified
[2017-12-25] MEDS ORDERED: SODI1TAB PO (12:47)
[2017-12-25 13:17] LABS: BASO % 0.4 %; BASO ABS # 0.02 K/uL (0-0.2); EOS % 1.6 %; EOS ABS # 0.08 K/uL (0-0.5); HEMATOCRIT 29.7 % (37-47); HEMOGLOBIN 10.2 g/dL (12.0-16.0); IG# 0.01 K/uL (0.00-0.02); LYMPH % 31.6 %; LYMPH ABS # 1.57 K/uL (1.2-3.4); MEAN CELL VOLUME 101.4 fL (80-100); MEAN CORPUSCULAR HEMOGLOBIN 34.8 pg (25-34); MEAN CORPUSCULAR HGB CONC 34.3 g/dl (32-36); MEAN PLATELET VOLUME 8.8 fL (7.4-10.4); MONO % 6.6 %; MONO ABS # 0.33 K/uL (0.11-0.59); NEUT % 59.6 %; NEUT ABS # 2.96 K/uL (1.4-6.5); PLATELET COUNT 169 K/uL (130-400); RED CELL DISTRIBUTION WIDTH CV 12.6 % (11.5-14.5); RED CELL DISTRIBUTION WIDTH SD 46.8 fL (36.4-46.3); WHITE BLOOD COUNT 4.97 K/uL (4.8-10.8)
[2017-12-25 13:34] LABS: CALCIUM 9.3 mg/dl (8.5-10.1); CREATININE 1.98 mg/dl (0.60-1.20); POTASSIUM 4.8 mmol/L (3.5-5.1)
[2017-12-25] MEDS ORDERED: SODIUM CHLORIDE 0.9% 500ML 500 ML IV STA ×2 (13:41→14:49)
[2017-12-25] MEDS ORDERED: CIPROFLOXACIN 400MG / 200ML D5W IV STA (14:49)
[2017-12-25] MEDS ORDERED: CIPR-255 PO (14:51)
[2017-12-25 17:30] VITALS: BP 143/71; PULSE 70; O2SAT 97
== END 2017-12-25 17:45 | disposition home or self-care (01) ==
LOC: C.EDB 11:47
DX: N39.0 Urinary tract infection, site not specified (principal); N18.4 Chronic kidney disease, stage 4 (severe); D63.1 Anemia in chronic kidney disease; F41.1 Generalized anxiety disorder; K21.9 Gastro-esophageal reflux disease without esophagitis; E78.5 Hyperlipidemia, unspecified; I12.9 Hypertensive chronic kidney disease with stage 1 through stage 4 chronic kidney disease, or unspecified chronic kidney disease; E03.9 Hypothyroidism, unspecified; F32.9 Major depressive disorder, single episode, unspecified; E22.2 Syndrome of inappropriate secretion of antidiuretic hormone; Z90.49 Acquired absence of other specified parts of digestive tract; Z96.642 Presence of left artificial hip joint; Z82.49 Family history of ischemic heart disease and other diseases of the circulatory system; Z79.82 Long term (current) use of aspirin; Z79.899 Other long term (current) drug therapy; Z88.0 Allergy status to penicillin; Z88.8 Allergy status to other drugs, medicaments and biological substances

== ENCOUNTER 2017-12-27 06:44 | Emergency (ER) | payer OTHER ==
[~2017-12-27] VITALS: Ht 142.2 cm; Wt 50.0 kg
[~2017-12-27 06:44] MED LIST changes: +CIPR-255 PO; +SODI1TAB PO
[2017-12-27 06:50] VITALS: TEMP 36.6; Ht 142.2 cm; Wt 50.0 kg
[2017-12-27] MEDS ORDERED: BSP/5 PO (07:06)
[2017-12-27] MEDS ORDERED: CITA10TA4 PO (07:06)
[2017-12-27] MEDS ORDERED: MIRT15TA3 PO (07:06)
[2017-12-27] MEDS ORDERED: SODIUM CHLORIDE 0.9% 1000ML 1,000 ML IV STA (07:07)
[2017-12-27] MEDS ORDERED: CIPROFLOXACIN 400MG / 200ML D5W IV STA (07:07)
[2017-12-27] MEDS ORDERED: SODIUM CHLORIDE 0.9% 1000ML 250 ML IV STA (07:07)
--- NOTE | 2017-12-27 07:14 | EMERGENCY ROOM VISIT NOTE ---
History Report prepared by Unique: Leon Dee Under the Supervision of: Dr. Jung Bautista M.D. First contact with patient: 07:01 Chief Complaint: URINARY SYMPTOMS Stated Complaint: SEVERE PAIN/TROUBLE URINATING History of Present Illness The patient is a 87 year old female who presents to the Emergency Room with complaints of a constant inability to urinate that began recently. She states that it feels like its "hard to pee". Patient states that she "currently feels like she has to pee". She states that she has abdominal pain and "feels sick to her stomach". Patient adds that she was started on Cipro recently for these symptoms but has only taken 2 doses so far. She states that her pain is worse today than when she was here in the ER before. Patient is present with her daughter. Daughter adds that the patient takes an iron pill twice a day. Patient states she has intermittent burning when she urinates. Patient adds that she had chills yesterday but they have resolved. Patient adds that she has bilateral back pain. She states that she has a history of kidney problems. She denies a history of kidney stones. Patient states that she is keeping up with her fluid intake. Patient denies nausea, vomiting, and fevers. Source of History: patient, family (Daughter) Onset: Recent Position: other (Urethra) Timing: constant Modifying Factors (Relieving): other (None) Associated Symptoms: + abdominal pain, + urinary symptoms, No fevers, No chills, No nausea, No vomiting Review of Systems See HPI for pertinent positives & negatives. A total of 10 systems reviewed and were otherwise negative. Past Medical & Surgical Medical Problems: (1) Anemia, chronic disease (2) Anxiety (3) Chest pain (4) CKD (chronic kidney disease), stage IV (5) Dizziness (6) FRANCES (generalized anxiety disorder) (7) GERD (gastroesophageal reflux disease) (8) H/O echocardiogram (9) HLD (hyperlipidemia) (10) HTN (hypertension) (11) Hypothyroidism (12) Major depressive disorder, recurrent, moderate (13) Palpitations (14) SIADH (syndrome of inappropriate ADH production) Surgical Problems: (1) Hx of appendectomy (2) Hx of cholecystectomy (3) Hx of dilation and curettage (4) Status post total hip replacement, left I have personally evaluated this patient examined her and reviewed the pertinent labs and data. I have discussed the case with the physician printing assistant and agree with the plan. Please refer to the PA note Family History FHx: heart disease Hypertension Social History Smoking Status: Never Smoker Alcohol Use: none Drug Use: none Marital Status: Housing Status: lives with family Occupation Status: retired Current/Historical Medications Scheduled Aspirin (Aspirin Ec), 81 MG PO DAILY Atorvastatin (Lipitor), 10 MG PO HS Bumetanide (Bumex), 0.5 MG PO QAM Buspirone HCl (Buspirone HCl), 5 MG PO DAILY Ciprofloxacin Hcl (Cipro), 500 MG PO BID Citalopram Hydrobromide (Citalopram Hydrobromide), 5 MG PO DAILY Epoetin Rafael (Procrit), 10,000 UNITS SQ Q14D Ferrous Sulfate (Ferrous Sulfate), 325 MG PO BID Levothyroxine Sodium (Synthroid), 88 MCG PO DAILY Lorazepam (Ativan), 0.5 MG PO BID Magnesium Oxide (Mag-Ox), 400 MG PO QAM Metoprolol Tartrate (Lopressor) (Lopressor), 12.5 MG PO BID Mirtazapine (Remeron), 15 MG PO HS Nifedipine (Nifedipine Er), 30 MG PO DAILY Pantoprazole (Protonix), 40 MG PO DAILY Ranitidine (Zantac), 300 MG PO HS Sodium Chloride (Sodium Chloride), 1 GM PO DAILY Scheduled PRN Docusate Sodium (Docusate Sodium), 100 MG PO BID PRN for Constipation Allergies Coded Allergies: Penicillins (Verified Allergy, Intermediate, HIVES, 12/27/17) Iron Sucrose (Verified Adverse Reaction, Mild, n&v, abd pain, 12/27/17) Physical Exam Vital Signs Date Time Temp Pulse Resp B/P (MAP) Pulse Ox O2 Delivery O2 Flow Rate FiO2 12/27/17 10:32 61 16 199/52 100 12/27/17 08:45 62 16 166/46 99 Room Air 12/27/17 06:50 36.6 56 16 183/55 98 Physical Exam General: Non-ill appearing older female in no acute distress. HEENT: Normal cephalic atraumatic. Pupils are equal round and reactive to light. Extraocular movements are intact. Oropharynx is pink with moist mucous membranes. No swelling of the mouth lips or tongue. Neck: Supple with a midline trachea. No meningeal signs or stiffness, no JVD or bruits. No Stridor. Chest: Clear to auscultation bilaterally. No wheezes or rhonchi. No increased work of breathing. Heart: regular rate and rhythm. Abdomen: Mild tenderness in central lower abdomen otherwise soft, nondistended without rebound guarding or rigidity. Extremities: No cyanosis clubbing or edema. No calf tenderness or assymetry Spine/Back. Non tender to palpation. No CVA tenderness Skin: Good turgor without rashes. Neurologic exam: Cranial nerves two through 12 are intact. Motor and sensation are intact and symmetrical throughout. Medical Decision & Procedures ER Provider Diagnostic Interpretation: Radiology results as stated below per my review and radiologist interpretation: CT SCAN OF THE ABDOMEN AND PELVIS WITHOUT CONTRAST CLINICAL HISTORY: Low abdominal and back pain COMPARISON STUDY: 05/02/2017 TECHNIQUE: CT scan of the abdomen and pelvis was performed from the lung bases to the proximal femurs. Images are reviewed in the axial, sagittal, and coronal planes. IV contrast was not administered for this examination. A dose lowering technique was utilized adhering to the principles of ALARA. CT DOSE: 446.30 mGy.cm FINDINGS: Lower chest: There is dilatation of the aortic root which measures 42 mm. There is dense calcification of the aortic root. There are mild bibasilar atelectatic changes. Liver: The unenhanced liver is normal in size, contour, and attenuation. There is no intrahepatic biliary ductal dilatation. Gallbladder: Not visualized and presumed surgically absent Spleen: Normal in size and attenuation. Pancreas: Unremarkable. Adrenal glands: Unremarkable. Kidneys: No renal, ureteral, or bladder calculi are visualized. Bowel: There is colonic diverticulosis. There are no acute peridiverticular inflammatory changes. There are fluid-filled loops of both small bowel and colon. There are no transition zones to indicate a high-grade bowel obstruction. Peritoneum: There is no intraperitoneal free air or abdominal ascites. Vasculature: There is mild dilatation of the descending thoracic aorta. There are atheromatous changes present. There is no evidence of abdominal aortic aneurysm. Adenopathy: None. Pelvic viscera: The uterus is presumed surgically absent. Thyroid the pelvis is slightly limited due to artifact from a left hip arthroplasty. Skeletal structures: No destructive osseous lesions are seen. IMPRESSION: 1. No renal, ureteral, or bladder calculi identified 2. Fluid-filled small bowel and colonic loops, likely secondary to a mild ileus 3. Diverticulosis. No evidence of acute diverticulitis 4. Calcified mildly dilated aortic root 5. No current evidence of bowel obstruction. No evidence of free air Electronically signed by: Mauro Sanchez M.D. 12/27/2017 9:07 AM Laboratory Results 12/27/17 07:41 Red Blood Count 2.47, Mean Corpuscular Volume 100.4, Mean Corpuscular Hemoglobin 34.8, Mean Corpuscular Hemoglobin Concent 34.7, Mean Platelet Volume 9.1, Neutrophils (%) (Auto) 48.6, Lymphocytes (%) (Auto) 40.9, Monocytes (%) ( Auto) 7.8, Eosinophils (%) (Auto) 2.1, Basophils (%) (Auto) 0.4, Neutrophils # ( Auto) 2.49, Lymphocytes # (Auto) 2.10, Monocytes # (Auto) 0.40, Eosinophils # ( Auto) 0.11, Basophils # (Auto) 0.02 12/27/17 07:41 Test 12/27/17 07:37 12/27/17 07:41 Bedside Lactic Acid Venous 0.70 mmol/L (0.90-1.70) White Blood Count 5.13 K/uL (4.8-10.8) Red Blood Count 2.47 M/uL (4.2-5.4) Hemoglobin 8.6 g/dL (12.0-16.0) Hematocrit 24.8 % (37-47) Mean Corpuscular Volume 100.4 fL (80-100) Mean Corpuscular Hemoglobin 34.8 pg (25-34) Mean Corpuscular Hemoglobin Concent 34.7 g/dl (32-36) Platelet Count 150 K/uL (130-400) Mean Platelet Volume 9.1 fL (7.4-10.4) Neutrophils (%) (Auto) 48.6 % Lymphocytes (%) (Auto) 40.9 % Monocytes (%) (Auto) 7.8 % Eosinophils (%) (Auto) 2.1 % Basophils (%) (Auto) 0.4 % Neutrophils # (Auto) 2.49 K/uL (1.4-6.5) Lymphocytes # (Auto) 2.10 K/uL (1.2-3.4) Monocytes # (Auto) 0.40 K/uL (0.11-0.59) Eosinophils # (Auto) 0.11 K/uL (0-0.5) Basophils # (Auto) 0.02 K/uL (0-0.2) RDW Standard Deviation 45.8 fL (36.4-46.3) RDW Coefficient of Variation 12.5 % (11.5-14.5) Immature Granulocyte % (Auto) 0.2 % Immature Granulocyte # (Auto) 0.01 K/uL (0.00-0.02) Ovalocytes 1+ Anion Gap 9.0 mmol/L (3-11) Est Creatinine Clear Calc Drug Dose 14.2 ml/min Estimated GFR () 28.1 Estimated GFR (Non- 24.2 BUN/Creatinine Ratio 21.7 (10-20) Calcium Level 8.8 mg/dl (8.5-10.1) Total Bilirubin 0.5 mg/dl (0.2-1) Direct Bilirubin 0.2 mg/dl (0-0.2) Aspartate Amino Transf (AST/SGOT) 28 U/L (15-37) Alanine Aminotransferase (ALT/SGPT) 38 U/L (12-78) Alkaline Phosphatase 77 U/L (45-117) Total Protein 6.9 gm/dl (6.4-8.2) Albumin 3.5 gm/dl (3.4-5.0) Lipase 145 U/L (73-393) Laboratory studies as stated above per my review. Medications Administered Medications (Trade) Dose Ordered Sig/Jassi Route Start Time Stop Time Status Last Admin Dose Admin Sodium Chloride 250 ml @ 999 mls/hr Q16M STAT IV 12/27/17 07:07 12/27/17 07:22 DC 12/27/17 07:55 999 MLS/HR Sodium Chloride 1,000 ml @ 100 mls/hr Q10H STAT IV 12/27/17 07:07 12/27/17 10:40 DC 12/27/17 07:07 100 MLS/HR Ciprofloxacin/ Dextrose (Cipro / D5W) 400 mg NOW STAT IV 12/27/17 07:07 12/27/17 07:10 DC 12/27/17 07:55 400 MG ED Course 0700: Past medical records reviewed. The patient was evaluated in room A10, and a complete history and physical examination were performed. 0707: Ciprofloxacin/Dextrose 400mg IV, Sodium Chloride 1000 ml @ 100 mls/hr IV, and Sodium Chloride 250 ml @ 999 mls/hr IV 0800: I reassessed the patient. Patient appears comfortable. She is currently receiving fluids and antibiotics. Patient's lactic acid levels are normal. 0900: Patient just got back from CT. She appears comfortable. 0936: I reassessed the patient but her daughter was not present. 1009: Upon reevaluation, the patient is resting comfortably. I discussed the results and treatment plan with her and her daughter. They verbalized agreement of the treatment plan. The patient was discharged home. Medical Decision Differentials include, but are not limited to; UTI, pyelonephritis, kidney stone , sepsis, electrolyte or metabolic abnormality. This patient comes in as described above. She was placed in room A-10. She is having some urinary symptoms that are continuing. She seen her couple days ago but did not start her antibiotics to last evening. At this point, I think it is too early to say she failed the antibiotic. I looked back through her cultures and it was positive for E. coli that was pansensitive including Cipro which she is described. She does have a penicillin allergy. I gave her additional dose of IV Cipro. Additional blood work was obtained including lactic acid and blood cultures. I do not feel the need to repeat the urinalysis is we have a culture from 2 days ago. I did a noncontrast CT to rule out any obstructive uropathy. She was gently hydrated with IV normal saline. She was reassessed frequently. Her blood work shows no white count or lactic acid to suggest sepsis. She has no significant electrolyte or metabolic abnormality with exception of renal insufficiency which actually looks better than 2 days ago. Hemoglobin has dropped a little bit but this may be from hydration. I did a rectal exam and it was guaiac negative. She has normal rectal tone and no evidence of any neurologic deficit or cauda equina syndrome. I offered to do a soapsuds enema but she would rather just take stool softeners. She should continue to take the antibiotics and follow-up with her doctor in 1-2 days for recheck. Return sooner if: fever or chills, increasing pain or problems, not tolerating fluids, any new problems or concerns. She is happy to plan discharged to home. Medication Reconcilliation Current Medication List: was personally reviewed by me Blood Pressure Screening Patient's blood pressure: Elevated blood pressure Blood pressure disposition: Elevated BP felt to be situational Impression Primary Impression: UTI (urinary tract infection) Additional Impressions: Suprapubic pain Constipation Scribe Attestation The scribe's documentation has been prepared under my direction and personally reviewed by me in its entirety. I confirm that the note above accurately reflects all work, treatment, procedures, and medical decision making performed by me. Departure Information Dispostion Home / Self-Care Referrals Yogesh Quevedo III, M.D. (PCP) Forms HOME CARE DOCUMENTATION FORM, IMPORTANT VISIT INFORMATION Patient Instructions My [facility] Additional Instructions Rest. Drink plenty of fluids. Use a stool softener if needed Continue to use your Cipro- antibiotic May use Tylenol/acetaminophen and [id number] dosages if needed for pain. Do not exceed [id number] dosing regimen Return if: Increasing pain, fever orchills, worsening ofsymptoms, any new problems or concerns Up with Dr. Quevedo tomorrow Problem Qualifiers
[2017-12-27 07:59] LABS: BASO % 0.4 %; BASO ABS # 0.02 K/uL (0-0.2); EOS % 2.1 %; EOS ABS # 0.11 K/uL (0-0.5); HEMATOCRIT 24.8 % (37-47); HEMOGLOBIN 8.6 g/dL (12.0-16.0); IG# 0.01 K/uL (0.00-0.02); LYMPH % 40.9 %; MEAN CELL VOLUME 100.4 fL (80-100); MEAN CORPUSCULAR HEMOGLOBIN 34.8 pg (25-34); MEAN CORPUSCULAR HGB CONC 34.7 g/dl (32-36); MEAN PLATELET VOLUME 9.1 fL (7.4-10.4); MONO % 7.8 %; NEUT % 48.6 %; NEUT ABS # 2.49 K/uL (1.4-6.5); PLATELET COUNT 150 K/uL (130-400); RED CELL DISTRIBUTION WIDTH CV 12.5 % (11.5-14.5); RED CELL DISTRIBUTION WIDTH SD 45.8 fL (36.4-46.3); WHITE BLOOD COUNT 5.13 K/uL (4.8-10.8)
[2017-12-27 08:19] LABS: ALBUMIN 3.5 gm/dl (3.4-5.0); CALCIUM 8.8 mg/dl (8.5-10.1); CREATININE 1.84 mg/dl (0.60-1.20); POTASSIUM 4.3 mmol/L (3.5-5.1); TOTAL PROTEIN 6.9 gm/dl (6.4-8.2)
--- NOTE | 2017-12-27 09:08 | DIAGNOSTIC IMAGING REPORT ---
CT SCAN OF THE ABDOMEN AND PELVIS WITHOUT CONTRAST CLINICAL HISTORY: Low abdominal and back pain COMPARISON STUDY: 05/02/2017 TECHNIQUE: CT scan of the abdomen and pelvis was performed from the lung bases to the proximal femurs. Images are reviewed in the axial, sagittal, and coronal planes. IV contrast was not administered for this examination. A dose lowering technique was utilized adhering to the principles of ALARA. CT DOSE: 446.30 mGy.cm FINDINGS: Lower chest: There is dilatation of the aortic root which measures 42 mm. There is dense calcification of the aortic root. There are mild bibasilar atelectatic changes. Liver: The unenhanced liver is normal in size, contour, and attenuation. There is no intrahepatic biliary ductal dilatation. Gallbladder: Not visualized and presumed surgically absent Spleen: Normal in size and attenuation. Pancreas: Unremarkable. Adrenal glands: Unremarkable. Kidneys: No renal, ureteral, or bladder calculi are visualized. Bowel: There is colonic diverticulosis. There are no acute peridiverticular inflammatory changes. There are fluid-filled loops of both small bowel and colon. There are no transition zones to indicate a high-grade bowel obstruction. Peritoneum: There is no intraperitoneal free air or abdominal ascites. Vasculature: There is mild dilatation of the descending thoracic aorta. There are atheromatous changes present. There is no evidence of abdominal aortic aneurysm. Adenopathy: None. Pelvic viscera: The uterus is presumed surgically absent. Thyroid the pelvis is slightly limited due to artifact from a left hip arthroplasty. Skeletal structures: No destructive osseous lesions are seen. IMPRESSION: 1. No renal, ureteral, or bladder calculi identified 2. Fluid-filled small bowel and colonic loops, likely secondary to a mild ileus 3. Diverticulosis. No evidence of acute diverticulitis 4. Calcified mildly dilated aortic root 5. No current evidence of bowel obstruction. No evidence of free air Electronically signed by: Mauro Sanchez M.D. 12/27/2017 9:07 AM Dictated Date/Time: 12/27/2017 8:59 AM
[2017-12-27 10:32] VITALS: BP 199/52; PULSE 61; O2SAT 100
== END 2017-12-27 10:25 | disposition home or self-care (01) ==
LOC: C.EDB 06:46 → C.EDA 10:25
DX: N39.0 Urinary tract infection, site not specified (principal); R33.9 Retention of urine, unspecified; K59.00 Constipation, unspecified; R10.30 Lower abdominal pain, unspecified; Z79.899 Other long term (current) drug therapy; Z88.0 Allergy status to penicillin; Z88.8 Allergy status to other drugs, medicaments and biological substances; N18.4 Chronic kidney disease, stage 4 (severe); F41.1 Generalized anxiety disorder; E78.5 Hyperlipidemia, unspecified; I12.9 Hypertensive chronic kidney disease with stage 1 through stage 4 chronic kidney disease, or unspecified chronic kidney disease; E03.9 Hypothyroidism, unspecified; Z96.642 Presence of left artificial hip joint; Z82.49 Family history of ischemic heart disease and other diseases of the circulatory system

== ENCOUNTER 2018-12-10 04:50 | Inpatient (IN) ==
--- OUTSIDE RECORDS SUMMARY | 2018-12-10 04:52 | External Medical Summary | Continuity of Care Document ---
:1930 Author Name Chester Carpio, Provider Address Unavailable Unavailable , Care Team Providers Name Role Phone NonMNPG Balaji, Provider Unavailable [email or web address] Luke III Unavailable Unavailable Problems Active medical history not documented Allergies and Adverse Reactions Allergy history not documented Medications Medications not documented Procedures Procedures not documented Immunizations Immunizations not documented Plan of Treatment Planned Observations Planned Goals not documented Results No Known Results Results not documented
[2018-12-10] MEDS ORDERED: ONDANSETRON INJ 2 MG/ML 2 ML VIAL IV STA (05:08)
[2018-12-10] MEDS: SODIUM CHLORIDE 0.9% 1000ML 1,000 ML IV SCH ×3 (05:15→21:30)
[2018-12-10 05:22] LABS: Basophils # (auto) 0.03 K/uL (0-0.2); Basophils % (auto) 0.3 %; Eosinophils # (auto) 0.03 K/uL (0-0.5); Eosinophils % (auto) 0.3 %; Hematocrit (blood only) 32.3 % (37-47); Hemoglobin 10.9 g/dL (12.0-16.0); Immature Granulocytes # (auto) 0.02 K/uL (0.00-0.02); Immature Granulocytes % (auto) 0.2 %; Lymphocytes # (auto) 1.71 K/uL (1.2-3.4); Lymphocytes % (auto) 18.8 %; Mean Corpuscular Hgb Conc 33.7 g/dL (32-36); Mean Corpuscular Volume 100.9 fL (80-100); Mean Platelet Volume 10.3 fL (7.4-10.4); Monocytes % (auto) 3.3 %; Neutrophils % (auto) 77.1 %; Platelet Count 175 K/uL (130-400); RDW Coefficient of Variation 13.4 % (11.5-14.5); RDW Standard Deviation 49.4 fL (36.4-46.3); White Blood Count 9.09 K/uL (4.8-10.8)
[2018-12-10 05:44] LABS: Alanine Aminotransferase 52 U/L (12-78); Albumin Level 4.1 gm/dl (3.4-5.0); Aspartate Aminotransferase 44 U/L (15-37); BUN Creatinine Ratio 20.6 (10-20); Blood Urea Nitrogen 53 mg/dl (7-18); Calcium 9.5 mg/dl (8.5-10.1); Carbon Dioxide 26 mmol/L (21-32); Chloride 104 mmol/L (98-107); Creatinine Clr Calc Pharmacy 10.9 ml/min; Est GFR (African American) 18.7; Est GFR (Non-African American) 16.1; Glucose 145 mg/dl (70-99); Potassium 4.8 mmol/L (3.5-5.1); Sodium 135 mmol/L (136-145)
[2018-12-10 05:49] LABS: Alkaline Phosphatase 116 U/L (45-117); Bilirubin,Total 0.4 mg/dl (0.2-1); Globulin 4.1 gm/dl (2.5-4.0); Total Protein 8.2 gm/dl (6.4-8.2); Troponin I < 0.015 ng/ml (0-0.045)
[2018-12-10] MEDS ORDERED: ACETAMINOPHEN 1,000 MG/100 ML VIAL IV STA (05:54)
[2018-12-10 06:30] LABS: Appearance Urine Clear (Clear); Bacteria Urine Automated 4+ (Negative); Bilirubin Urine Negative (Negative); Blood Urine 1+ (Negative); Color Urine Yellow; Epithelial Cell Urine Auto 0-5 /lpf (0-5); Glucose Urine UA Negative (Negative); Ketones Urine Negative (Negative); Leukocyte Esterase Urine 1+ (Negative); Nitrite Urine Negative (Negative); Protein Urine 3+ (Negative); Specific Gravity Urine 1.022 (1.000-1.030); Urobilinogen Urine Negative (Negative); WBC Urine Automated >30 /hpf (0-5); pH Urine 6.5 (4.5-7.5)
[2018-12-10 06:52] LABS: Cast Urine Automated 0 /lpf (0-5)
[2018-12-10] MEDS ORDERED: cefTRIAXone SODIUM 1,000 MG/50 ML BAG IV STA (07:18)
--- NOTE | 2018-12-10 07:20 | CT Scan Report ---
CT abd pelvis wo con CT DOSE: 293.70 mGy.cm HISTORY: Pain. Nausea. abd pain, n/v TECHNIQUE: Multiaxial CT images of the abdomen and pelvis were performed without contrast. A dose lo wering technique was utilized adhering to the principles of ALARA. COMPARISON STUDY: 10/28/2018 FINDINGS: Moderate dilatation a sending thoracic aorta with maximum diameter 4.4 cm. Minimal basilar atelectatic change. Lung bases otherwise are clear. There is trace perihepatic ascites. The small bowel is mildly distended and is fluid-filled. The term inal ileum shows moderate wall thickening and a decrease in caliber. Diagnostic considerations includ e inflammatory bowel process versus a nonvisualized obstructing process. Colon is relatively collapse d. There are findings of scattered colonic diverticuli with no evidence of diverticulitis. Study is negative for pneumatosis or free air. IMPRESSION: 1. Findings consistent with distal small bowel obstructive change. Trace perihepatic ascites 2. Etiology is uncertain, although there appears to be a length of terminal ileum demonstrating moder ate wall thickening and luminal narrowing. 3. Relatively collapsed colon. 4. Dilatation of the a sending thoracic aorta at 4.4 cm. The above report was generated using voice recognition software. It may contain grammatical, syntax or spelling errors. Electronically signed by: Rob Mike M.D. 12/10/2018 7:18 AM
[2018-12-10] MEDS ORDERED: fentaNYL citrate 100 MCG/2 ML VIAL IV PRN (07:24)
--- NOTE | 2018-12-10 07:36 | Emergency Department Note ---
Entered by Grady Carnes acting as a scribe for History of Present Illness General Chief complaint: Abdominal Pain Stated complaint: abdominal discomfort Time Seen by Provider: 12/10/18 04:59 Source: patient Mode of arrival: EMS Limitations: clinical acuity History of Present Illness The patient is an 88 y/o female who presents to the ED w/ CC of constant central abdominal pain beginning earlier last night. The patient states she had 2-3 episodes of vomiting today. She reports she also had a bowel movement that had loose stool. Nursing staff notes the patient was given 4mg of Zofran ODT in route. The patient denies eating anything odd, changes in her medication, being around anyone sick, and blood in her stool or vomit. Pt started actively vomiting during interview. HPI limited secondary to the patient's clinical status. Home Medications Home Medications Medication Instructions Recorded Confirmed Type aspirin 81 mg PO DAILY 08/16/18 12/10/18 History bumetanide 0.5 mg PO QAM 08/16/18 12/10/18 History citalopram 5 mg PO DAILY 08/16/18 12/10/18 History epoetin lalita [Procrit] 10,000 unit SUBCUT Q14D 08/16/18 12/10/18 History levothyroxine 88 mcg PO DAILY 08/16/18 12/10/18 History lorazepam 1 mg PO Q8H PRN 08/16/18 12/10/18 History metoprolol tartrate 12.5 mg PO BID 08/16/18 12/10/18 History nifedipine 30 mg PO DAILY 08/16/18 12/10/18 History pantoprazole 40 mg PO DAILY 08/16/18 12/10/18 History ranitidine HCl 150 mg PO QAM 08/16/18 12/10/18 History sodium chloride 1 g PO DAILY 08/16/18 12/10/18 History Shingrex 50 mcg INJ DIRECTED 12/10/18 12/10/18 History acetaminophen 650 mg PO Q8H PRN 12/10/18 12/10/18 History atorvastatin 10 mg PO DAILY 12/10/18 12/10/18 History cholecalciferol (vitamin D3) 1,000 unit PO DAILY 12/10/18 12/10/18 History docusate sodium 100 mg PO BID 12/10/18 12/10/18 History magnesium oxide 400 mg PO DAILY 12/10/18 12/10/18 History nut.tx.imp.renal fxn,lac-reduc 1 can PO BID 12/10/18 12/10/18 History [Nepro Carb Steady] polyethylene glycol 3350 [Miralax] 17 g PO DAILY PRN 12/10/18 12/10/18 History triamcinolone acetonide 1 applic TOPICAL BID 12/10/18 12/10/18 History Allergies Allergy/AdvReac Type Severity Reaction Status Date / Time Penicillins Allergy Intermediate HIVES Verified 12/10/18 05:13 iron AdvReac Mild n&v, abd Verified 12/10/18 05:13 pain Venofer AdvReac Mild n&v, abd Verified 02/28/18 08:54 pain Past Med/Surg History Medical History Hypothyroidism (Chronic) CKD (chronic kidney disease), stage IV (Chronic) HTN (hypertension) (Chronic) Anxiety (Chronic) HLD (hyperlipidemia) (Chronic) SIADH (syndrome of inappropriate ADH production) (Chronic) H/O echocardiogram (Chronic) "03/2015 - EF 60-65%, moderate to severe aortic regurgitation" GERD (gastroesophageal reflux disease) (Chronic) Anemia (Acute) Chest pain Closed head injury (Acute) Constipation (Acute) Dizziness Fall (Acute) FRANCES (generalized anxiety disorder) (Chronic) Major depressive disorder, recurrent, moderate (Chronic) Suprapubic pain (Acute) Symptoms involving urinary system (Acute) UTI (urinary tract infection) (Acute) Surgical History Hx of appendectomy (Chronic) Hx of cholecystectomy (Chronic) Hx of dilation and curettage (Chronic) Status post total hip replacement, left (Chronic) Family History Other Hypertension Social History Preferred Language: Divehi Communication Ability: Effective Restaurant 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: No Beliefs That Will Affect Care: None marital status: / Current Living Situation: Family Current Living Situation Comment: lives with daughter current occupational status: retired Other Information That Helps Us Care for You: No Feels Safe at Home: Yes Safety Concerns: Feels Safe At This Time Smoking Status: Never smoker Do You Dip or Chew Tobacco: No Second Hand Exposure: No Tobacco Cessation Education Requested by Patient: No Hx Alcohol Use: No Hx Substance Use: Yes substance use type: prescription drug Substance Use Type Other:: lorazepam Review of Systems Other (limited secondary to the patient's clinical status.) Physical Exam Vital Signs Vital Signs - 24 hr 12/10/18 04:45 12/10/18 05:00 12/10/18 05:59 Temperature 36.7 C Temperature Source Oral Sepsis Recent Fever Within 48 Hours No Sepsis New/Unexplained Change in Mental Status No Sepsis Action Taken by Nursing No Action Required Pulse Rate 84 83 Pulse Rate [Apical] 78 Pulse Rate [Finger] Pulse Rate from SpO2 Sensor 79 Pulse Rhythm Pulse Rhythm [Apical] Respiratory Rate 22 16 16 Respiratory Effort / Characteristics Non-Labored Spontaneous Non-Labored Spontaneous Respiratory Depth Normal Normal Respiratory Pattern Regular Regular Blood Pressure 173/78 H Blood Pressure [Left Arm] 182/70 H Blood Pressure Mean 109 Blood Pressure Mean [Left Arm] 107 Blood Pressure Position Lying Blood Pressure Position [Left Arm] Sitting Pulse Oximetry 98 95 95 Oxygen Delivery Method Room Air Room Air Room Air Oxygen Flow Rate 12/10/18 06:51 12/10/18 07:31 12/10/18 07:34 Temperature Temperature Source Sepsis Recent Fever Within 48 Hours Sepsis New/Unexplained Change in Mental Status Sepsis Action Taken by Nursing Pulse Rate 75 Pulse Rate [Apical] 79 77 Pulse Rate [Finger] Pulse Rate from SpO2 Sensor Pulse Rhythm Irregular Pulse Rhythm [Apical] Irregular Respiratory Rate 20 20 20 Respiratory Effort / Characteristics Non-Labored Spontaneous Non-Labored Respiratory Depth Normal Normal Respiratory Pattern Regular Blood Pressure Blood Pressure [Left Arm] 209/71 H 197/53 H Blood Pressure Mean Blood Pressure Mean [Left Arm] 117 101 Blood Pressure Position Blood Pressure Position [Left Arm] Lying Pulse Oximetry 98 87 L Oxygen Delivery Method Room Air Room Air Room Air Oxygen Flow Rate 12/10/18 07:35 12/10/18 08:00 12/10/18 08:01 Temperature Temperature Source Sepsis Recent Fever Within 48 Hours Sepsis New/Unexplained Change in Mental Status Sepsis Action Taken by Nursing Pulse Rate 70 80 78 Pulse Rate [Apical] Pulse Rate [Finger] Pulse Rate from SpO2 Sensor 76 79 Pulse Rhythm Irregular Pulse Rhythm [Apical] Respiratory Rate 20 21 Respiratory Effort / Characteristics Respiratory Depth Respiratory Pattern Blood Pressure 177/94 H Blood Pressure [Left Arm] Blood Pressure Mean 121 Blood Pressure Mean [Left Arm] Blood Pressure Position Blood Pressure Position [Left Arm] Pulse Oximetry 95 99 100 Oxygen Delivery Method Nasal Cannula Oxygen Flow Rate 2 12/10/18 08:30 12/10/18 08:31 12/10/18 09:00 Temperature Temperature Source Sepsis Recent Fever Within 48 Hours Sepsis New/Unexplained Change in Mental Status Sepsis Action Taken by Nursing Pulse Rate 78 74 78 Pulse Rate [Apical] 72 Pulse Rate [Finger] Pulse Rate from SpO2 Sensor 72 71 78 Pulse Rhythm Pulse Rhythm [Apical] Irregular Respiratory Rate 15 17 15 Respiratory Effort / Characteristics Non-Labored Respiratory Depth Normal Respiratory Pattern Regular Blood Pressure 179/51 H Blood Pressure [Left Arm] 179/51 H Blood Pressure Mean 93 Blood Pressure Mean [Left Arm] 93 Blood Pressure Position Blood Pressure Position [Left Arm] Lying Pulse Oximetry 100 100 100 Oxygen Delivery Method Nasal Cannula Oxygen Flow Rate 2 12/10/18 09:01 12/10/18 09:27 12/10/18 09:30 Temperature Temperature Source Sepsis Recent Fever Within 48 Hours Sepsis New/Unexplained Change in Mental Status Sepsis Action Taken by Nursing Pulse Rate 80 80 Pulse Rate [Apical] Pulse Rate [Finger] Pulse Rate from SpO2 Sensor 75 78 Pulse Rhythm Pulse Rhythm [Apical] Respiratory Rate 15 20 Respiratory Effort / Characteristics Non-Labored Spontaneous Respiratory Depth Normal Respiratory Pattern Regular Blood Pressure 185/53 H Blood Pressure [Left Arm] Blood Pressure Mean 97 Blood Pressure Mean [Left Arm] Blood Pressure Position Blood Pressure Position [Left Arm] Pulse Oximetry 100 100 Oxygen Delivery Method Nasal Cannula Oxygen Flow Rate 2 12/10/18 09:31 12/10/18 09:56 12/10/18 10:03 Temperature Temperature Source Sepsis Recent Fever Within 48 Hours Sepsis New/Unexplained Change in Mental Status Sepsis Action Taken by Nursing Pulse Rate 78 82 Pulse Rate [Apical] Pulse Rate [Finger] Pulse Rate from SpO2 Sensor 80 Pulse Rhythm Pulse Rhythm [Apical] Respiratory Rate 21 17 Respiratory Effort / Characteristics Respiratory Depth Respiratory Pattern Blood Pressure 178/90 H 202/72 H Blood Pressure [Left Arm] Blood Pressure Mean 119 Blood Pressure Mean [Left Arm] Blood Pressure Position Blood Pressure Position [Left Arm] Pulse Oximetry 100 97 97 Oxygen Delivery Method Room Air Room Air Oxygen Flow Rate 12/10/18 10:25 12/10/18 11:22 12/10/18 13:44 Temperature 36.8 C Temperature Source Oral Sepsis Recent Fever Within 48 Hours Sepsis New/Unexplained Change in Mental Status Sepsis Action Taken by Nursing Pulse Rate Pulse Rate [Apical] Pulse Rate [Finger] 75 Pulse Rate from SpO2 Sensor Pulse Rhythm Pulse Rhythm [Apical] Respiratory Rate 18 Respiratory Effort / Characteristics Respiratory Depth Respiratory Pattern Blood Pressure Blood Pressure [Left Arm] 176/72 H 147/69 H Blood Pressure Mean Blood Pressure Mean [Left Arm] 106 95 Blood Pressure Position Blood Pressure Position [Left Arm] Lying Lying Pulse Oximetry 95 Oxygen Delivery Method Room Air Oxygen Flow Rate 12/10/18 15:30 12/10/18 15:31 Temperature 36.9 C Temperature Source Oral Sepsis Recent Fever Within 48 Hours Sepsis New/Unexplained Change in Mental Status Sepsis Action Taken by Nursing Pulse Rate Pulse Rate [Apical] Pulse Rate [Finger] 82 Pulse Rate from SpO2 Sensor Pulse Rhythm Pulse Rhythm [Apical] Respiratory Rate 17 Respiratory Effort / Characteristics Non-Labored Spontaneous Respiratory Depth Normal Respiratory Pattern Regular Blood Pressure Blood Pressure [Left Arm] 163/60 H Blood Pressure Mean Blood Pressure Mean [Left Arm] 94 Blood Pressure Position Blood Pressure Position [Left Arm] Lying Pulse Oximetry 93 Oxygen Delivery Method Room Air Room Air Oxygen Flow Rate GENERAL: alert, ill-appearing, well nourished, no distress, non-toxic EYE EXAM: normal conjunctiva, PERRL and EOM's grossly intact OROPHARYNX: no exudate, no erythema, lips, buccal mucosa, and tongue normal and mucous membranes are moist NECK: supple, no nuchal rigidity, no adenopathy, non-tender LUNGS: Clear to auscultation. Normal chest wall mechanics HEART: no murmurs, S1 normal and S2 normal ABDOMEN: abdomen soft, generalized abdominal pain, decreased bowel sounds, no masses, no rebound or guarding. Tympanitic to percussion. BACK: Back is symmetrical on inspection and there is no deformity, no midline tenderness, no CVA tenderness. SKIN: no rashes and no bruising UPPER EXTREMITIES: upper extremities are grossly normal. Nml pulses b/l. LOWER EXTREMITIES: No pitting edema. Nml pulses b/l. NEURO EXAM: Normal sensorium, cranial nerves II-XII grossly intact, normal speech, no gross weakness of arms, no gross weakness of legs. Course 0458: The patient was evaluated in room A09B. A complete history and physical exam was performed. 0719: Review of urine cultures the patient previously grew out E. coli which was gutierrez sensitive. Rocephin ordered for the patient. 0731: Upon reevaluation, I discussed findings and results with her. She verbalized agreement of the treatment plan. 0745: I spoke with Dr. Vega of the [facility]. It is requested that I contact General Surgery to make them aware of the patient's case. The patient will be evaluated for further management and care. 0747: I discussed the patient's case with Eileen Parra PA-C, General Surgery. She will evaluate the patient in consult. Administered Medications Heparin Sodium (Porcine) (Heparin Sodium (Porcine)) 5,000 units SQ Q12 EDNA Stop: 01/09/19 11:59 Last Admin: 12/10/18 21:24 Dose: 5,000 units Documented by: [id number] Cosigned by: [id number] Admin: 12/10/18 14:01 Dose: 5,000 units Documented by: [id number] Cosigned by: [id number] Sodium Chloride (Nss 1000ml) 1,000 mls @ 125 mls/hr IV .Q8H EDNA Stop: 01/09/19 05:14 Last Admin: 12/10/18 21:30 Dose: 125 mls/hr Documented by: [id number] Infusion: 12/10/18 21:30 Dose: 125 mls/hr Documented by: [id number] Admin: 12/10/18 13:42 Dose: 125 mls/hr Documented by: [id number] Infusion: 12/10/18 13:15 Dose: 125 mls/hr Documented by: [id number] Admin: 12/10/18 05:15 Dose: 125 mls/hr Documented by: [id number] Prochlorperazine 10 mg/ (Syringe) 10 mls @ 5 mls/min IV Q6 PRN PRN Reason: Nausea And Vomiting Stop: 01/09/19 16:24 Last Admin: 12/10/18 17:47 Dose: 5 mls/min Documented by: [id number] Insulin Aspart (Novolog Flexpen) 0 units SC ACHS EDNA Stop: 01/09/19 20:59 Last Admin: 12/10/18 21:23 Dose: Not Given Documented by: [id number] Cosigned by: [id number] Metoprolol Tartrate (Lopressor) 12.5 mg PO BID EDNA Stop: 01/09/19 11:29 Last Admin: 12/10/18 21:24 Dose: 12.5 mg Documented by: [id number] Admin: 12/10/18 11:56 Dose: 12.5 mg Documented by: [id number] Morphine Sulfate (Morphine Sulfate) 2 mg IV Q3H PRN PRN Reason: Pain Stop: 12/24/18 10:59 Last Admin: 12/10/18 19:25 Dose: 2 mg Documented by: [id number] Nifedipine (Procardia Xl) 30 mg PO DAILYBB [facility] Stop: 01/09/19 11:29 Last Admin: 12/10/18 11:56 Dose: 30 mg Documented by: [id number] Ondansetron HCl (Zofran) 4 mg IV Q6H PRN PRN Reason: Nausea Stop: 01/09/19 10:33 Last Admin: 12/10/18 15:37 Dose: 4 mg Documented by: [id number] Discontinued Medications Fentanyl Citrate (Fentanyl Citrate) 50 mcg IV Q15M PRN PRN Reason: Pain Stop: 12/24/18 07:23 Last Admin: 12/10/18 07:28 Dose: 50 mcg Documented by: [id number] Acetaminophen (Ofirmev) 1,000 mg in 100 mls @ 400 mls/hr IV NOW STA Stop: 12/10/18 06:08 Last Infusion: 12/10/18 06:20 Dose: 0 mls/hr Documented by: [id number] Admin: 12/10/18 05:58 Dose: 400 mls/hr Documented by: [id number] Ceftriaxone Sodium (Rocephin) 1,000 mg in 50 mls @ 100 mls/hr IV NOW STA Stop: 12/10/18 07:47 Last Infusion: 12/10/18 07:52 Dose: 0 mls/hr Documented by: [id number] Admin: 12/10/18 07:21 Dose: 100 mls/hr Documented by: [id number] Miscellaneous (Pending Order) 1 ea N/A TODAY@2100 [facility] Stop: 12/10/18 21:01 Last Admin: 12/10/18 21:31 Dose: Not Given Documented by: [id number] Morphine Sulfate (Morphine Sulfate) Confirm Administered Dose 2 mg .ROUTE .STK- MED ONE Stop: 12/10/18 11:03 Last Admin: 12/10/18 11:03 Dose: 2 mg Documented by: [id number] Ondansetron HCl (Zofran) 4 mg IV NOW STA Stop: 12/10/18 05:09 Last Admin: 12/10/18 05:15 Dose: 4 mg Documented by: [id number] Ondansetron HCl (Zofran) Confirm Administered Dose 4 mg .ROUTE .STK-MED ONE Stop: 12/10/18 11:01 Last Admin: 12/10/18 11:03 Dose: 4 mg Documented by: [id number] Medical Decision Making Differential Diagnosis Differential diagnoses includes but is not limited to gastritis, peptic ulcer disease, GERD, gallbladder disease, pancreatitis, small bowel obstruction, acute coronary syndrome, pericarditis, ischemic bowel, irritable bowel disease, irritable bowel syndrome, appendicitis, diverticulitis, malignancy, hernia, urinary tract infection, torsion, perforation, trauma, infectious. Medical Records Attestation: I reviewed the patient's medical records. Home Medications Current Medication List: was personally reviewed by me Laboratory Data Attestation: I reviewed the patient's lab results. Result diagrams: 12/10/18 05:10 12/10/18 05:10 Lab Results 12/10/18 12/10/18 12/10/18 Range/Units 05:10 05:10 05:10 WBC 9.09 (4.8-10.8) K/uL RBC 3.20 L (4.2-5.4) M/uL Hgb 10.9 L (12.0-16.0) g/dL Hct 32.3 L (37-47) % MCV 100.9 H (80-100) fL MCH 34.1 H (25-34) pg MCHC 33.7 (32-36) g/dL RDW Std Deviation 49.4 H (36.4-46.3) fL RDW Coeff of Liss 13.4 (11.5-14.5) % Plt Count 175 (130-400) K/uL MPV 10.3 (7.4-10.4) fL Immature Gran % (Auto) 0.2 % Neut % (Auto) 77.1 % Lymph % (Auto) 18.8 % [place] % (Auto) 3.3 % Eos % (Auto) 0.3 % Baso % (Auto) 0.3 % Immature Gran # (Auto) 0.02 (0.00-0.02) K/uL Neut # (Auto) 7.00 H (1.4-6.5) K/uL Lymph # (Auto) 1.71 (1.2-3.4) K/uL [place] # (Auto) 0.30 (0.11-0.59) K/uL Eos # (Auto) 0.03 (0-0.5) K/uL Baso # (Auto) 0.03 (0-0.2) K/uL PT (9.0-12.0) Seconds INR (0.9-1.1) APTT (21.0-31.0) Seconds PTT Ratio Sodium 135 L (136-145) mmol/L Potassium 4.8 (3.5-5.1) mmol/L Chloride 104 (98-107) mmol/L Carbon Dioxide 26 (21-32) mmol/L Anion Gap 5.0 (3-11) BUN 53 H (7-18) mg/dl Creatinine 2.56 H (0.6-1.2) mg/dl Est Cr Clr Drug Dosing 10.9 ml/min Est GFR ( Amer) 18.7 Est GFR (Non-Af Amer) 16.1 BUN/Creatinine Ratio 20.6 H (10-20) Glucose 145 H (70-99) mg/dl POC Glucose (70-99) Estimat Average Glucose 105 mg/dl Hemoglobin A1c 5.3 (4.5-5.6) % POC Lactic Acid Liang (0.90-1.70) mmol/L Calcium 9.5 (8.5-10.1) mg/dl Magnesium 3.0 H (1.8-2.4) mg/dl Total Bilirubin 0.4 (0.2-1) mg/dl AST 44 H (15-37) U/L ALT 52 (12-78) U/L Alkaline Phosphatase 116 (45-117) U/L Troponin I < 0.015 (0-0.045) ng/ml Total Protein 8.2 (6.4-8.2) gm/dl Albumin 4.1 (3.4-5.0) gm/dl Globulin 4.1 H (2.5-4.0) gm/dl Albumin/Globulin Ratio 1.0 (0.9-2) Lipase 209 (73-393) U/L Urine Color Urine Appearance (Clear) Urine pH (4.5-7.5) Ur Specific [place]ison (1.000-1.030) Urine Protein (Negative) Urine Glucose (UA) (Negative) Urine Ketones (Negative) Urine Blood (Negative) Urine Nitrite (Negative) Urine Bilirubin (Negative) Urine Urobilinogen (Negative) Ur Leukocyte Esterase (Negative) Urine WBC (Auto) (0-5) /hpf Urine RBC (Auto) (0-4) /hpf U Hyaline Cast (Auto) (0-5) /lpf U Epithel Cells (Auto) (0-5) /lpf Urine Bacteria (Auto) (Negative) 12/10/18 12/10/18 12/10/18 Range/Units 05:11 05:21 06:08 WBC (4.8-10.8) K/uL RBC (4.2-5.4) M/uL Hgb (12.0-16.0) g/dL Hct (37-47) % MCV (80-100) fL MCH (25-34) pg MCHC (32-36) g/dL RDW Std Deviation (36.4-46.3) fL RDW Coeff of Liss (11.5-14.5) % Plt Count (130-400) K/uL MPV (7.4-10.4) fL Immature Gran % (Auto) % Neut % (Auto) % Lymph % (Auto) % [place] % (Auto) % Eos % (Auto) % Baso % (Auto) % Immature Gran # (Auto) (0.00-0.02) K/uL Neut # (Auto) (1.4-6.5) K/uL Lymph # (Auto) (1.2-3.4) K/uL [place] # (Auto) (0.11-0.59) K/uL Eos # (Auto) (0-0.5) K/uL Baso # (Auto) (0-0.2) K/uL PT 10.2 (9.0-12.0) Seconds INR 1.0 (0.9-1.1) APTT 23.7 (21.0-31.0) Seconds PTT Ratio 0.9 Sodium (136-145) mmol/L Potassium (3.5-5.1) mmol/L Chloride (98-107) mmol/L Carbon Dioxide (21-32) mmol/L Anion Gap (3-11) BUN (7-18) mg/dl Creatinine (0.6-1.2) mg/dl Est Cr Clr Drug Dosing ml/min Est GFR ( Amer) Est GFR (Non-Af Amer) BUN/Creatinine Ratio (10-20) Glucose (70-99) mg/dl POC Glucose (70-99) Estimat Average Glucose mg/dl Hemoglobin A1c (4.5-5.6) % POC Lactic Acid Liang 1.28 (0.90-1.70) mmol/L Calcium (8.5-10.1) mg/dl Magnesium (1.8-2.4) mg/dl Total Bilirubin (0.2-1) mg/dl AST (15-37) U/L ALT (12-78) U/L Alkaline Phosphatase (45-117) U/L Troponin I (0-0.045) ng/ml Total Protein (6.4-8.2) gm/dl Albumin (3.4-5.0) gm/dl Globulin (2.5-4.0) gm/dl Albumin/Globulin Ratio (0.9-2) Lipase (73-393) U/L Urine Color Yellow Urine Appearance Clear (Clear) Urine pH 6.5 (4.5-7.5) Ur Specific Addison 1.022 (1.000-1.030) Urine Protein 3+ H (Negative) Urine Glucose (UA) Negative (Negative) Urine Ketones Negative (Negative) Urine Blood 1+ H (Negative) Urine Nitrite Negative (Negative) Urine Bilirubin Negative (Negative) Urine Urobilinogen Negative (Negative) Ur Leukocyte Esterase 1+ H (Negative) Urine WBC (Auto) >30 H (0-5) /hpf Urine RBC (Auto) 10-30 H (0-4) /hpf U Hyaline Cast (Auto) 0 (0-5) /lpf U Epithel Cells (Auto) 0-5 (0-5) /lpf Urine Bacteria (Auto) 4+ H (Negative) 12/10/18 12/10/18 12/10/18 Range/Units 07:32 12:06 18:07 WBC (4.8-10.8) K/uL RBC (4.2-5.4) M/uL Hgb (12.0-16.0) g/dL Hct (37-47) % MCV (80-100) fL MCH (25-34) pg MCHC (32-36) g/dL RDW Std Deviation (36.4-46.3) fL RDW Coeff of Liss (11.5-14.5) % Plt Count (130-400) K/uL MPV (7.4-10.4) fL Immature Gran % (Auto) % Neut % (Auto) % Lymph % (Auto) % [place] % (Auto) % Eos % (Auto) % Baso % (Auto) % Immature Gran # (Auto) (0.00-0.02) K/uL Neut # (Auto) (1.4-6.5) K/uL Lymph # (Auto) (1.2-3.4) K/uL [place] # (Auto) (0.11-0.59) K/uL Eos # (Auto) (0-0.5) K/uL Baso # (Auto) (0-0.2) K/uL PT (9.0-12.0) Seconds INR (0.9-1.1) APTT (21.0-31.0) Seconds PTT Ratio Sodium (136-145) mmol/L Potassium (3.5-5.1) mmol/L Chloride (98-107) mmol/L Carbon Dioxide (21-32) mmol/L Anion Gap (3-11) BUN (7-18) mg/dl Creatinine (0.6-1.2) mg/dl Est Cr Clr Drug Dosing ml/min Est GFR ( Amer) Est GFR (Non-Af Amer) BUN/Creatinine Ratio (10-20) Glucose (70-99) mg/dl POC Glucose 112 H 120 H (70-99) Estimat Average Glucose mg/dl Hemoglobin A1c (4.5-5.6) % POC Lactic Acid Liang (0.90-1.70) mmol/L Calcium (8.5-10.1) mg/dl Magnesium (1.8-2.4) mg/dl Total Bilirubin (0.2-1) mg/dl AST (15-37) U/L ALT (12-78) U/L Alkaline Phosphatase (45-117) U/L Troponin I 0.025 (0-0.045) ng/ml Total Protein (6.4-8.2) gm/dl Albumin (3.4-5.0) gm/dl Globulin (2.5-4.0) gm/dl Albumin/Globulin Ratio (0.9-2) Lipase (73-393) U/L Urine Color Urine Appearance (Clear) Urine pH (4.5-7.5) Ur Specific [place] (1.000-1.030) Urine Protein (Negative) Urine Glucose (UA) (Negative) Urine Ketones (Negative) Urine Blood (Negative) Urine Nitrite (Negative) Urine Bilirubin (Negative) Urine Urobilinogen (Negative) Ur Leukocyte Esterase (Negative) Urine WBC (Auto) (0-5) /hpf Urine RBC (Auto) (0-4) /hpf U Hyaline Cast (Auto) (0-5) /lpf U Epithel Cells (Auto) (0-5) /lpf Urine Bacteria (Auto) (Negative) Imaging Data Radiologist's Impression: Radiology results as stated below per my review and the radiologist's interpretation: CT abd pelvis wo con CT DOSE: 293.70 mGy.cm HISTORY: Pain. Nausea. abd pain, n/v TECHNIQUE: Multiaxial CT images of the abdomen and pelvis were performed without contrast. A dose lowering technique was utilized adhering to the principles of ALARA. COMPARISON STUDY: 10/28/2018 FINDINGS: Moderate dilatation a sending thoracic aorta with maximum diameter 4.4 cm. Minimal basilar atelectatic change. Lung bases otherwise are clear. There is trace perihepatic ascites. The small bowel is mildly distended and is fluid-filled. The terminal ileum shows moderate wall thickening and a decrease in caliber. Diagnostic considerations include inflammatory bowel process versus a nonvisualized obstructing process. Colon is relatively collapsed. There are findings of scattered colonic diverticuli with no evidence of diverticulitis. Study is negative for pneumatosis or free air. IMPRESSION: 1. Findings consistent with distal small bowel obstructive change. Trace perihepatic ascites 2. Etiology is uncertain, although there appears to be a length of terminal ileum demonstrating moderate wall thickening and luminal narrowing. 3. Relatively collapsed colon. 4. Dilatation of the a sending thoracic aorta at 4.4 cm. The above report was generated using voice recognition software. It may contain grammatical, syntax or spelling errors. Electronically signed by: Rob Mike M.D. 12/10/2018 7:18 AM ECG Data Attestation: I personally reviewed and interpreted this ECG as follows: Indication: vomiting Rate (beats per minute): 83 Rhythm: sinus rhythm Findings: + other (Normal axis. Normal QRS and QTc), + 1st degree AV block, + PVC and + ST depression (V5 and V6) Comparison ECG Date: from (10/28/18) Change: the following changes noted Additional Comments: ST depression has worsened Blood Pressure Blood Pressure Findings: Elevated blood pressure Blood Pressure Disposition: Referred to patients primary care provider MDM Narrative Pt here ill appearing. Pt with n/v that was improved with zofran. Pt started on IVF. Labs reassuring and lactic acid negative. CT a/p with possible obstructive process, no transition point, no other evidence of acute infectious process. Given CKD, no IV contrast given. Pt given some meds for pain. Case discussed with hospitalist for additional evaluation and mgmt. CKD appears slightly worse than baseline. Pt's UTI treated with rocephin. No evidence of bacteremia/sepsis. No evidence of other obstructive pathology. VS stable while here. client manager did try to call pt's daughter at home at her request due to pt being admitted and no other family present at bedside. Impression & Plan Abdominal pain, UTI (urinary tract infection), Nausea & vomiting Discharge Plan Visit Data *Final* Discharge Date/Time: 12/10/18 10:03 Chief Complaint: Abdominal Pain Stated Complaint: abdominal discomfort ED Provider: Hilda Mathews Discharge Problem: Abdominal pain, UTI (urinary tract infection), Nausea & vomiting Patient Disposition: Admitted As Inpatient Discharge Instructions Interventions: ED Discharge Assessment Last Done: 12/10/18 10:03 Discharge Problem: Abdominal pain Qualifiers: Abdominal location: generalized Qualified Code(s): R10.84 - Generalized abdominal pain UTI (urinary tract infection) Qualifiers: Urinary tract infection type: acute cystitis Hematuria presence: with hematuria Qualified Code(s): N30.01 - Acute cystitis with hematuria Nausea & vomiting Qualifiers: Vomiting type: unspecified Vomiting Intractability: non-intractable Qualified Code(s): R11.2 - Nausea with vomiting, unspecified The scribe's documentation has been prepared under my direction and personally reviewed by me in its entirety. I confirm that the note above accurately reflects all work, treatment, procedures, and medical decision making performed by me.
--- NOTE | 2018-12-10 08:59 | Surgery Consultation ---
Date of Consultation December 10, 2018 Assessment & Plan (1) Abdominal pain: 88 year-old female who presented to emergency room with complaint of abdominal pain and nausea that began last evening. Loose stools last night. No bloody stools. CT scan showing moderate small bowel dilatation with air fluid levels and wall thickening and narrowing of the distal small bowel (terminal ileum) which could be inflammatory process vs obstructive process. No prior history of abnormal colonoscopy (last colonoscopy many years ago per patient). No family history of inflammatory bowel disease or colon cancer. Normally takes stool softener at night. Abdomen is mildly distended, soft, nontender, no per itonitis. No leukocytosis and normal lactic acid. Plan: No acute surgical intervention required at this time. Recommend conservative treatment with bowel rest, IV fluids, IV pain management as needed but limit narcotics, IV Zofran as needed, and NGT if vomiting. Continue Medical management Will follow along Dr. Solomon was present during my examination and agrees with above. Please see addendum for further recommendations/plan. Pt seen and examined with REHANA Rodriguez. CT scan personally reviewed. Benign abdomen although mildly tender in the right lower abdomen. Would recommend npo, bowel rest, conservative treatment. Will follow. (2) Nausea & vomiting: History of Present Illness Reason for Consultation: abdominal pain, nausea, vomiting, possible obstructive process Requesting Physician: Hilda Mathews History of Present Illness Briseyda is a pleasant 88 year-old female who presented to emergency room this morning with complaint of abdominal pain and nausea that began last evening. States she had cracker barrell for dinner and tolerated well. Pain was located in the lower abdomen more so on the right side. States she felt nauseated but no vomiting. (Vomiting per ER PHysician). States she last had a bowel movement last evening which was loose. Bowels normally formed and usually takes stool softener in the evenings for constipation. She states she had a colonoscopy in the past but many years ago and no abnormal findings. No family history of inflammatory bowel disease or colon cancer that she is aware of. She states her mom had troubles with her bowels but did not have cancer. She denies of any family members at home that are sick. Denies of any fever, chills, chest pain, shortness of breath, persistent diarrhea, blood in stools, black tarry stools. She has had an open cholecystectomy with appendectomy as well as hysterectomy. ER work-up included labs which showed no leukocytosis. CT scan of abdomen and pelvis without contrast showing mild dilation of small bowel, fluid filled with wall thickening and narrowing of the terminal ileum. Differential could be inflammatory process vs obstructive process. Lactic acid 1.2. During my examination she was having intermittent right lower sided abdominal pain. + nausea but no vomiting. She persists that she did not have any vomiting. Allergies Allergy/AdvReac Type Severity Reaction Status Date / Time Penicillins Allergy Intermediate HIVES Verified 12/10/18 05:13 iron AdvReac Mild n&v, abd Verified 12/10/18 05:13 pain Venofer AdvReac Mild n&v, abd Verified 02/28/18 08:54 pain Home Medications Home Medications Medication Instructions Recorded Confirmed Type aspirin 81 mg PO DAILY 08/16/18 12/10/18 History bumetanide 0.5 mg PO QAM 08/16/18 12/10/18 History citalopram 5 mg PO DAILY 08/16/18 12/10/18 History epoetin lalita [Procrit] 10,000 unit SUBCUT Q14D 08/16/18 12/10/18 History levothyroxine 88 mcg PO DAILY 08/16/18 12/10/18 History lorazepam 1 mg PO Q8H PRN 08/16/18 12/10/18 History metoprolol tartrate 12.5 mg PO BID 08/16/18 12/10/18 History nifedipine 30 mg PO DAILY 08/16/18 12/10/18 History pantoprazole 40 mg PO DAILY 08/16/18 12/10/18 History ranitidine HCl 150 mg PO QAM 08/16/18 12/10/18 History sodium chloride 1 g PO DAILY 08/16/18 12/10/18 History Shingrex 50 mcg INJ DIRECTED 12/10/18 12/10/18 History acetaminophen 650 mg PO Q8H PRN 12/10/18 12/10/18 History atorvastatin 10 mg PO DAILY 12/10/18 12/10/18 History cholecalciferol (vitamin D3) 1,000 unit PO DAILY 12/10/18 12/10/18 History docusate sodium 100 mg PO BID 12/10/18 12/10/18 History magnesium oxide 400 mg PO DAILY 12/10/18 12/10/18 History nut.tx.imp.renal fxn,lac-reduc 1 can PO BID 12/10/18 12/10/18 History [Nepro Carb Steady] polyethylene glycol 3350 [Miralax] 17 g PO DAILY PRN 12/10/18 12/10/18 History triamcinolone acetonide 1 applic TOPICAL BID 12/10/18 12/10/18 History Patient History Medical History Hypothyroidism (Chronic) CKD (chronic kidney disease), stage IV (Chronic) HTN (hypertension) (Chronic) Anxiety (Chronic) HLD (hyperlipidemia) (Chronic) SIADH (syndrome of inappropriate ADH production) (Chronic) H/O echocardiogram (Chronic) "03/2015 - EF 60-65%, moderate to severe aortic regurgitation" GERD (gastroesophageal reflux disease) (Chronic) Anemia (Acute) Chest pain Closed head injury (Acute) Constipation (Acute) Dizziness Fall (Acute) FRANCES (generalized anxiety disorder) (Chronic) Major depressive disorder, recurrent, moderate (Chronic) Suprapubic pain (Acute) Symptoms involving urinary system (Acute) UTI (urinary tract infection) (Acute) Surgical History Hx of appendectomy (Chronic) Hx of cholecystectomy (Chronic) Hx of dilation and curettage (Chronic) Status post total hip replacement, left (Chronic) Family History Other Hypertension Social History Preferred Language: Marshallese marital status: / Current Living Situation: Family current occupational status: retired Feels Safe at Home: Yes Smoking Status: Unknown if ever smoked Review of Systems Review of Systems: All systems reviewed & are unremarkable except as noted in HPI & below Physical Exam Constitutional: Elderly thin female, in no acute distress Respiratory: normal respiratory effort, lungs clear to auscultation Cardiovascular: RRR, no murmur, no edema Gastrointestinal (Abdomen): Inspection/Auscultation: + abdomen distended (mild distention) and + abdominal surgical scar (RUQ cholecystectomy scar, midline longitudinal hysterectomy scar) Percussion/Palpation: abdomen soft; abdomen nontender, no guarding and abdomen not rigid Skin: no rashes, warm and dry Psychiatric: A+Ox3, euthymic affect Results & Data Vital Signs (Past 12 Hours) Vital Signs Temp Pulse Pulse Resp BP BP Pulse Ox 12/10/18 08:30 72 17 179/51 H 100 12/10/18 07:35 70 95 12/10/18 07:34 75 20 87 L 12/10/18 07:31 77 20 197/53 H 12/10/18 06:51 79 20 209/71 H 98 12/10/18 05:59 78 16 182/70 H 95 12/10/18 05:00 83 16 95 12/10/18 04:45 36.7 C 84 22 173/78 H 98 Laboratory Results 12/10/18 12/10/18 12/10/18 Range/Units 07:32 06:08 05:21 WBC (4.8-10.8) K/uL RBC (4.2-5.4) M/uL Hgb (12.0-16.0) g/dL Hct (37-47) % MCV (80-100) fL MCH (25-34) pg MCHC (32-36) g/dL RDW Std Deviation (36.4-46.3) fL RDW Coeff of Liss (11.5-14.5) % Plt Count (130-400) K/uL MPV (7.4-10.4) fL Immature Gran % (Auto) % Neut % (Auto) % Lymph % (Auto) % [place] % (Auto) % Eos % (Auto) % Baso % (Auto) % Immature Gran # (Auto) (0.00-0.02) K/uL Neut # (Auto) (1.4-6.5) K/uL Lymph # (Auto) (1.2-3.4) K/uL [place] # (Auto) (0.11-0.59) K/uL Eos # (Auto) (0-0.5) K/uL Baso # (Auto) (0-0.2) K/uL Sodium (136-145) mmol/L Potassium (3.5-5.1) mmol/L Chloride (98-107) mmol/L Carbon Dioxide (21-32) mmol/L Anion Gap (3-11) BUN (7-18) mg/dl Creatinine (0.6-1.2) mg/dl Est Cr Clr Drug Dosing ml/min Est GFR ( Amer) Est GFR (Non-Af Amer) BUN/Creatinine Ratio (10-20) Glucose (70-99) mg/dl POC Lactic Acid Liang 1.28 (0.90-1.70) mmol/L Calcium (8.5-10.1) mg/dl Magnesium (1.8-2.4) mg/dl Total Bilirubin (0.2-1) mg/dl AST (15-37) U/L ALT (12-78) U/L Alkaline Phosphatase (45-117) U/L Troponin I 0.025 (0-0.045) ng/ml Total Protein (6.4-8.2) gm/dl Albumin (3.4-5.0) gm/dl Globulin (2.5-4.0) gm/dl Albumin/Globulin Ratio (0.9-2) Lipase (73-393) U/L Urine Color Yellow Urine Appearance Clear (Clear) Urine pH 6.5 (4.5-7.5) Ur Specific [place] 1.022 (1.000-1.030) Urine Protein 3+ H (Negative) Urine Glucose (UA) Negative (Negative) Urine Ketones Negative (Negative) Urine Blood 1+ H (Negative) Urine Nitrite Negative (Negative) Urine Bilirubin Negative (Negative) Urine Urobilinogen Negative (Negative) Ur Leukocyte Esterase 1+ H (Negative) Urine WBC (Auto) >30 H (0-5) /hpf Urine RBC (Auto) 10-30 H (0-4) /hpf U Hyaline Cast (Auto) 0 (0-5) /lpf U Epithel Cells (Auto) 0-5 (0-5) /lpf Urine Bacteria (Auto) 4+ H (Negative) 12/10/18 12/10/18 Range/Units 05:10 05:10 WBC 9.09 (4.8-10.8) K/uL RBC 3.20 L (4.2-5.4) M/uL Hgb 10.9 L (12.0-16.0) g/dL Hct 32.3 L (37-47) % MCV 100.9 H (80-100) fL MCH 34.1 H (25-34) pg MCHC 33.7 (32-36) g/dL RDW Std Deviation 49.4 H (36.4-46.3) fL RDW Coeff of Liss 13.4 (11.5-14.5) % Plt Count 175 (130-400) K/uL MPV 10.3 (7.4-10.4) fL Immature Gran % (Auto) 0.2 % Neut % (Auto) 77.1 % Lymph % (Auto) 18.8 % [place] % (Auto) 3.3 % Eos % (Auto) 0.3 % Baso % (Auto) 0.3 % Immature Gran # (Auto) 0.02 (0.00-0.02) K/uL Neut # (Auto) 7.00 H (1.4-6.5) K/uL Lymph # (Auto) 1.71 (1.2-3.4) K/uL [place] # (Auto) 0.30 (0.11-0.59) K/uL Eos # (Auto) 0.03 (0-0.5) K/uL Baso # (Auto) 0.03 (0-0.2) K/uL Sodium 135 L (136-145) mmol/L Potassium 4.8 (3.5-5.1) mmol/L Chloride 104 (98-107) mmol/L Carbon Dioxide 26 (21-32) mmol/L Anion Gap 5.0 (3-11) BUN 53 H (7-18) mg/dl Creatinine 2.56 H (0.6-1.2) mg/dl Est Cr Clr Drug Dosing 10.9 ml/min Est GFR ( Amer) 18.7 Est GFR (Non-Af Amer) 16.1 BUN/Creatinine Ratio 20.6 H (10-20) Glucose 145 H (70-99) mg/dl POC Lactic Acid Liang (0.90-1.70) mmol/L Calcium 9.5 (8.5-10.1) mg/dl Magnesium 3.0 H (1.8-2.4) mg/dl Total Bilirubin 0.4 (0.2-1) mg/dl AST 44 H (15-37) U/L ALT 52 (12-78) U/L Alkaline Phosphatase 116 (45-117) U/L Troponin I < 0.015 (0-0.045) ng/ml Total Protein 8.2 (6.4-8.2) gm/dl Albumin 4.1 (3.4-5.0) gm/dl Globulin 4.1 H (2.5-4.0) gm/dl Albumin/Globulin Ratio 1.0 (0.9-2) Lipase 209 (73-393) U/L Urine Color Urine Appearance (Clear) Urine pH (4.5-7.5) Ur Specific [place] (1.000-1.030) Urine Protein (Negative) Urine Glucose (UA) (Negative) Urine Ketones (Negative) Urine Blood (Negative) Urine Nitrite (Negative) Urine Bilirubin (Negative) Urine Urobilinogen (Negative) Ur Leukocyte Esterase (Negative) Urine WBC (Auto) (0-5) /hpf Urine RBC (Auto) (0-4) /hpf U Hyaline Cast (Auto) (0-5) /lpf U Epithel Cells (Auto) (0-5) /lpf Urine Bacteria (Auto) (Negative) Diagnostic Findings CT abd pelvis wo con CT DOSE: 293.70 mGy.cm HISTORY: Pain. Nausea. abd pain, n/v TECHNIQUE: Multiaxial CT images of the abdomen and pelvis were performed without contrast. A dose lowering technique was utilized adhering to the principles of ALARA. COMPARISON STUDY: 10/28/2018 FINDINGS: Moderate dilatation a sending thoracic aorta with maximum diameter 4.4 cm. Minimal basilar atelectatic change. Lung bases otherwise are clear. There is trace perihepatic ascites. The small bowel is mildly distended and is fluid-filled. The terminal ileum shows moderate wall thickening and a decrease in caliber. Diagnostic considerations include inflammatory bowel process versus a nonvisualized obstructing process. Colon is relatively collapsed. There are findings of scattered colonic diverticuli with no evidence of diverticulitis. Study is negative for pneumatosis or free air. IMPRESSION: 1. Findings consistent with distal small bowel obstructive change. Trace perihepatic ascites 2. Etiology is uncertain, although there appears to be a length of terminal ileum demonstrating moderate wall thickening and luminal narrowing. 3. Relatively collapsed colon. 4. Dilatation of the a sending thoracic aorta at 4.4 cm. (1) Nausea & vomiting Vomiting Intractability: non-intractable Vomiting type: unspecified Qualified Code(s): R11.2 - Nausea with vomiting, unspecified (2) Abdominal pain Abdominal location: generalized Qualified Code(s): R10.84 - Generalized abdominal pain
--- NOTE | 2018-12-10 09:34 | History & Physical Report ---
Date of Service December 10, 2018 Assessment & Plan (1) SBO (small bowel obstruction): (2) Abdominal pain: (3) Nausea & vomiting: (4) Diarrhea: (5) UTI (urinary tract infection): (6) Hypothyroidism: (7) Anemia, chronic disease: (8) CKD (chronic kidney disease), stage IV: (9) GERD (gastroesophageal reflux disease): (10) HTN (hypertension): (11) Anxiety: (12) HLD (hyperlipidemia): General surgery has been consulted, IV fluids, n.p.o. except ice chips and sips, consider upper GI with small bowel follow-through, pain control, continue outpatient medications where appropriate to include beta-maliha and nifedipine. Hold noncritical medications. Continue Rocephin started in the emergency room for a UA that grew out E. coli which was pansensitive. Patient will be inpatient status likely to be here more than 2 midnights. Discussed CODE STATUS with patient she wants everything done DVT prophylaxis with SCDs and subcu heparin, PT eval and treat Primary care physician is Dr. Yogesh Quevedo History of Present Illness 88-year-old female with a past medical history of hypertension, anxiety, osteoporosis, CKD 3, hypothyroidism, hyperlipidemia, GERD, anemia of chronic disease and constipation presents complaining of 3 days of nausea vomiting and abdominal pain. She also notes that she had diarrhea for the last 3 days, it was not getting any better so she came to the emergency room. She denies fevers, chills, chest pain. She did not notice any blood in her urine or in her stool she had a recent UA which showed pansensitive E. coli. General surgery has been consulted. ROS-No Headache, No Visual Changes, No Fever, No Chills, No Neck Pain or Stiffness, No Chest Pain, No Palpitations, No SOB, No LEYVA, No Cough, No Sputum, No Wheezing, positive generalized lower abdominal Pain, positive diarrhea, No Hematemesis, No Hemoptysis, No Unexpected Weight Loss, No Flank pain, No Melena, No Hematochezia, No Frequency, No Urgency, No Burning, No Hematuria, No Rashes, No Diaphoresis. Appetite is decreased Physical Exam Gen-AAO x 3, NAD, Afebrile, pleasant Head-NCAT, EOMI, PERRLA, Anicteric Sclera, No Posterior Pharyngeal Erythema Neck-Supple, No JVD, No Thyromegaly, No Masses, No LAD, No Bruits Lungs-Clear to Auscultation Bilaterally, No Rales, No Rhonchi, No Wheezing, No Crepitus Chest-No S4, +S1, +S2, No S3, No Murmurs, No Rubs, No Gallops, No Ectopy Abdomen-Soft, Bowel Sounds Present, Mildly tender, Non Distended, No Hepatomegaly, No Splenomegaly, No Palpable Masses, No Rebound, No Rigidity, No Guarding Musculoskeletal-Full Range of Motion Bilaterally, No CVAT Extremities-No Cyanosis, No Clubbing, No Edema Nuero-Cranial Nerves II-XII grossly intact, Motor WNL, DTRs WNL, Strength WNL, No Focal Psych-Normal Mood PMH-hypertension, anxiety, osteoporosis, CKD 3, hyperlipidemia, hypothyroidism, GERD, anemia of chronic disease, constipation PSH-Colace cystectomy, total hysterectomy, appendectomy, left hip replacement FH-she does not have her father , mother of a CVA, she had no brothers or sisters, she has no sons, she had 2 daughters one of a brain aneurysm the other is alive and healthy and she lives with her daughter SH-denies tobacco drugs or alcohol, she is a , she lives with her daughter. Meds reviewed and Reconciled Labs Reviewed Primary Care Provider: Yogesh Quevedo MD Allergies Allergy/AdvReac Type Severity Reaction Status Date / Time Penicillins Allergy Intermediate HIVES Verified 12/10/18 05:13 iron AdvReac Mild n&v, abd Verified 12/10/18 05:13 pain Venofer AdvReac Mild n&v, abd Verified 02/28/18 08:54 pain Home Medications Home Medications Medication Instructions Recorded Confirmed Type aspirin 81 mg PO DAILY 08/16/18 12/10/18 History bumetanide 0.5 mg PO QAM 08/16/18 12/10/18 History citalopram 5 mg PO DAILY 08/16/18 12/10/18 History epoetin lalita [Procrit] 10,000 unit SUBCUT Q14D 08/16/18 12/10/18 History levothyroxine 88 mcg PO DAILY 08/16/18 12/10/18 History lorazepam 1 mg PO Q8H PRN 08/16/18 12/10/18 History metoprolol tartrate 12.5 mg PO BID 08/16/18 12/10/18 History nifedipine 30 mg PO DAILY 08/16/18 12/10/18 History pantoprazole 40 mg PO DAILY 08/16/18 12/10/18 History ranitidine HCl 150 mg PO QAM 08/16/18 12/10/18 History sodium chloride 1 g PO DAILY 08/16/18 12/10/18 History Shingrex 50 mcg INJ DIRECTED 12/10/18 12/10/18 History acetaminophen 650 mg PO Q8H PRN 12/10/18 12/10/18 History atorvastatin 10 mg PO DAILY 12/10/18 12/10/18 History cholecalciferol (vitamin D3) 1,000 unit PO DAILY 12/10/18 12/10/18 History docusate sodium 100 mg PO BID 12/10/18 12/10/18 History magnesium oxide 400 mg PO DAILY 12/10/18 12/10/18 History nut.tx.imp.renal fxn,lac-reduc 1 can PO BID 12/10/18 12/10/18 History [Nepro Carb Steady] polyethylene glycol 3350 [Miralax] 17 g PO DAILY PRN 12/10/18 12/10/18 History triamcinolone acetonide 1 applic TOPICAL BID 12/10/18 12/10/18 History Past Med/Surg History Medical History Hypothyroidism (Chronic) CKD (chronic kidney disease), stage IV (Chronic) HTN (hypertension) (Chronic) Anxiety (Chronic) HLD (hyperlipidemia) (Chronic) SIADH (syndrome of inappropriate ADH production) (Chronic) H/O echocardiogram (Chronic) "03/2015 - EF 60-65%, moderate to severe aortic regurgitation" GERD (gastroesophageal reflux disease) (Chronic) Anemia (Acute) Chest pain Closed head injury (Acute) Constipation (Acute) Dizziness Fall (Acute) FRANCES (generalized anxiety disorder) (Chronic) Major depressive disorder, recurrent, moderate (Chronic) Suprapubic pain (Acute) Symptoms involving urinary system (Acute) UTI (urinary tract infection) (Acute) Surgical History Hx of appendectomy (Chronic) Hx of cholecystectomy (Chronic) Hx of dilation and curettage (Chronic) Status post total hip replacement, left (Chronic) Family History Other Hypertension Social History Preferred Language: Spanish marital status: / Current Living Situation: Family current occupational status: retired Feels Safe at Home: Yes Smoking Status: Unknown if ever smoked Results & Data Vital Signs (Past 12 Hours) Vital Signs Temp Pulse Pulse Resp BP BP Pulse Ox 12/10/18 08:30 72 17 179/51 H 100 12/10/18 07:35 70 95 12/10/18 07:34 75 20 87 L 12/10/18 07:31 77 20 197/53 H 12/10/18 06:51 79 20 209/71 H 98 12/10/18 05:59 78 16 182/70 H 95 12/10/18 05:00 83 16 95 12/10/18 04:45 36.7 C 84 22 173/78 H 98 Current Diagnoses Generalized abdominal pain (12/10/18) Nausea with vomiting, unspecified (12/10/18) Allergies Penicillins Allergy (Intermediate, Verified 12/10/18 05:13) HIVES iron Adverse Reaction (Mild, Verified 12/10/18 05:13) n&v, abd pain Venofer Adverse Reaction (Mild, Verified 02/28/18 08:54) n&v, abd pain Height/Weight/Isolation Height 5 ft Weight 54.3 kg Chemistry 12/10/18 05:10 Sodium 135 L Potassium 4.8 Chloride 104 Carbon Dioxide 26 Anion Gap 5.0 BUN 53 H Creatinine 2.56 H Glucose 145 H Urinalysis 12/10/18 06:08 Urine Color Yellow Urine Appearance Clear Urine pH 6.5 Ur Specific [place] 1.022 Urine Protein 3+ H Urine Glucose (UA) Negative Urine Ketones Negative Urine Blood 1+ H Urine Nitrite Negative Urine Bilirubin Negative Microbiology 12/10/18 06:08 Urine,Straight Cath Urine Culture - Pending (1) Abdominal pain Abdominal location: generalized Qualified Code(s): R10.84 - Generalized abdominal pain (2) Nausea & vomiting Vomiting Intractability: non-intractable Vomiting type: unspecified Qualified Code(s): R11.2 - Nausea with vomiting, unspecified (3) UTI (urinary tract infection) Hematuria presence: with hematuria Urinary tract infection type: acute cystitis Qualified Code(s): N30.01 - Acute cystitis with hematuria
[2018-12-10] MEDS ORDERED: GLUCOSE 40% GEL 15 GM TUBE PO PRN (10:51)
[2018-12-10] MEDS ORDERED: DEXTROSE 50% 50 ML SYRINGE IV PRN (10:51)
[2018-12-10] MEDS ORDERED: GLUCOSE 10 TABS/TUBE PO PRN (10:51)
[2018-12-10] MEDS ORDERED: GLUCAGON FOR INJ 1 MG VIAL SQ PRN (10:51)
[2018-12-10] MEDS ORDERED: CARBOHYDRATES FOR HYPOGLYCEMIA PO PRN (10:51)
[2018-12-10] MEDS ORDERED: ONDANSETRON INJ 2 MG/ML 2 ML VIAL ONE (11:00)
[2018-12-10] MEDS ORDERED: MoRPHine SULFATE 2 MG/ML CARP ONE (11:02)
[2018-12-10] MEDS ORDERED: PHARMACY GLYCEMIC MGMT CONSULT PRN (11:04)
[2018-12-10 11:51] LABS: Partial Thromboplastin Ratio 0.9; Partial Thromboplastin Time 23.7 Seconds (21.0-31.0); Prothrombin Time 10.2 Seconds (9.0-12.0)
[2018-12-10] MEDS: METOPROLOL TARTRATE 25 MG TAB PO SCH ×2 (11:56→21:24)
[2018-12-10] MEDS: NIFEdipine EXTENDED REL 30 MG TABCR PO SCH (11:56)
--- NOTE | 2018-12-10 11:59 | Pharmacy Report ---
Glycemic Control Consultation - Date of Service December 10, 2018 - Scope Scope: Glycemic Pharmacist consulted by Dr Cramer on 12/10/18 for glycemic control and to write orders per [facility] inpatient glycemic control protocol - Objective Weight: 54.3 kg Accuchecks BSG (last 24hrs): 12/10/18 05:10 Glucose 145 H Laboratory Data (last 24hrs): 12/10/18 05:10 Potassium 4.8 Carbon Dioxide 26 Anion Gap 5.0 Creatinine 2.56 H Est Cr Clr Drug Dosing 10.9 - Recent Pertinent Medications Outpatient Anti-diabetic Regimen: * N/A Risk Factors for Insulin Resistance: * Diet: NPO - Assessment & Plan Assessment & Plan: ASSESSMENT: * Ms Domínguez is an 88 y/o F admitted with SBO. Patient has a h/o CKD stage 4. Her HBA1C is 5.3% indicating that she is not a diabetic. Patient's blood sugar was a little elevated this morning at 145 mg/dL. * Established weight-based scale for patient with goal range of 140-180 mg/dL secondary to NPO status. 10 units of Lantus available if patient's blood sugar over 180 mg/dL tonight. PLAN FOR INPATIENT GLYCEMIC CONTROL: * Basal insulin * Lantus 10 units SQ HS if blood sugar over 180 mg/dl * Bolus insulin * NovoLog per scale ACHS or Q6hrs while NPO * Goal Range: Low 140 mg/dL - High 180 mg/dL * Correction Factor: 30 mg/dL/unit * Nutritional / Prandial insulin per carb ratio of 1 unit per 10 grams CHO consumed * Please note that the plan above was derived based on current level of insulin resistance and hospital stress. These recommendations are appropriate for inpatient admission only. Plan of care upon discharge will need to be reassessed to avoid potential outpatient hypo/hyperglycemia. Thank you.
[2018-12-10 12:53] LABS: Estimated Average Glucose 105 mg/dl; Hemoglobin A1C 5.3 % (4.5-5.6)
[2018-12-10] MEDS: HEPARIN SOD 5,000 UNIT/0.5 ML VIAL SQ SCH ×2 (14:01→21:24)
[2018-12-10] MEDS: ONDANSETRON INJ 2 MG/ML 2 ML VIAL IV PRN (15:37)
[2018-12-10] MEDS ORDERED: PROCHLORPERAZINE 10 MG in SYRINGE 8 ML IV PRN (16:25)
[2018-12-10] MEDS: MoRPHine SULFATE 2 MG/ML CARP IV PRN (19:25)
[2018-12-10] MEDS ORDERED: LANTUS PER UNIT CHARGE SQ PRN (21:00)
[2018-12-10] MEDS ORDERED: INSULIN ASPART 100 UNITS/ML 3 ML PEN SC SCH (21:00)
[2018-12-11] MEDS ORDERED: Nursing to Pharmacy Communication ONE ×2 (00:01→09:47)
[2018-12-11] MEDS: MoRPHine SULFATE 2 MG/ML CARP IV PRN ×2 (00:08→06:31)
[2018-12-11] MEDS: SODIUM CHLORIDE 0.9% 1000ML 1,000 ML IV SCH (05:35)
[2018-12-11] MEDS: NIFEdipine EXTENDED REL 30 MG TABCR PO SCH (05:36)
[2018-12-11] MEDS: INSULIN ASPART 100 UNITS/ML 3 ML PEN SC SCH ×3 (06:21→18:06)
[2018-12-11 08:10] LABS: Prothrombin Time 10.7 Seconds (9.0-12.0)
[2018-12-11 08:45] LABS: Potassium 5.2 mmol/L (3.5-5.1)
[2018-12-11 08:46] LABS: Albumin Level 3.3 gm/dl (3.4-5.0); BUN Creatinine Ratio 20.5 (10-20); Bilirubin,Total 0.3 mg/dl (0.2-1); Calcium 8.5 mg/dl (8.5-10.1); Creatinine Clr Calc Pharmacy 11.5 ml/min; Est GFR (Non-African American) 17.3; Globulin 3.4 gm/dl (2.5-4.0); Total Protein 6.7 gm/dl (6.4-8.2)
[2018-12-11] MEDS: METOPROLOL TARTRATE 25 MG TAB PO SCH ×2 (09:50→20:10)
[2018-12-11] MEDS: cefTRIAXone SODIUM 1,000 MG in DEXTROSE 5% 50 ML IV SCH (09:50)
[2018-12-11] MEDS: HEPARIN SOD 5,000 UNIT/0.5 ML VIAL SQ SCH ×2 (09:50→20:11)
--- NOTE | 2018-12-11 09:54 | Pharmacy Report ---
Pharmacy Glycemic Sign Off Nt - Date of Service December 11, 2018 - Assessment & Plan ASSESSMENT: * Pharmacy was consulted by Dr Ritter on 12/10/18 for glycemic control and to write orders per [facility] inpatient glycemic control protocol. * Major changes made by pharmacy to antidiabetic regimen include: * Adding SQ bolus insulin as needed for hyperglycemia * A1c is negative for diabetes or prediabetes. A1c is normal at 5.3% on 12/10/18 * Patient has been receiving/requiring 0 units of insulin per day for adequate glycemic control * BSGs ranging 106-120 mg/dl * Regimen has only required minor adjustments over the past 48hrs to achieve this level of control * Do not anticipate further changes in patient status that would quickly deteriorate glycemic control (i.e. patient to be NPO for upcoming procedure, steroids tapering, starting tube feedings, etc). PLAN FOR INPATIENT GLYCEMIC CONTROL: No changes needed to current regimen. * No basal insulin needed * Continue NovoLog per scale ACHS/Q6hrs while NPO * Goal range = 110 -140 mg/dl * CF = 45 mg/dl/unit * CR = 1 unit for ever -- g CHO consumed ; none needed * Pharmacy is signing off of glycemic consult and will no longer be making adjustments to inpatient regimen. Please feel free to re-consult if needed. Thank you. DISCHARGE RECOMMENDATIONS: * No changes needed at dc. No antidiabetic medications warranted based on A1c
--- NOTE | 2018-12-11 10:40 | Surgery Progress Note ---
Date of Service December 11, 2018 Assessment & Plan (1) Abdominal pain: 88 year-old female with partial small bowel obstruction due to either inflammatory or obstructive etiology. Overall, does not appear to have worsened but she is more confused (morphine given around 6 am today). Would continue conservative management with bowel rest, IV fluids. From prior note: presented to ER with complaint of abdominal pain and nausea that began last evening. Loose stools last night. No bloody stools. CT scan showing moderate small bowel dilatation with air fluid levels and wall thickening and narrowing of the distal small bowel (terminal ileum) which could be inflammatory process vs obstructive process. No prior history of abnormal colonoscopy (last colonoscopy many years ago per patient). No family history of inflammatory bowel disease or colon cancer. Normally takes stool softener at rust. Abdomen is mildly distended, soft, nontender, no peritonitis. No leukocytosis and normal lactic acid. Plan: No acute surgical intervention required at this time. Recommend conservative treatment with bowel rest, IV fluids, IV pain management as needed but limit narcotics, IV Zofran as needed, and NGT if vomiting. Continue Medical management Will follow along Dr. Solomon was present during my examination and agrees with above. Please see addendum for further recommendations/plan. Pt seen and examined with REHANA Rodriguez. CT scan personally reviewed. Benign abdomen although mildly tender in the right lower abdomen. Would recommend npo, bowel rest, conservative treatment. Will follow. (2) Nausea & vomiting: Subjective Pt appears more confused - does not remember talking to me yesterday. Not complaining of abdominal pain or nausea. Lying in bed, resting comfortably. No bowel movement recorded. Review of Systems Review of Systems: All systems reviewed & are unremarkable except as noted in HPI & below Physical Exam Constitutional: + thin vital as above Respiratory: normal respiratory effort, lungs clear to auscultation Cardiovascular: RRR, no murmur, no edema Gastrointestinal (Abdomen): Inspection/Auscultation: + abdomen distended (mild) and normal bowel sounds Percussion/Palpation: + abdomen tender and abdomen soft mild, in left upper and right lower quadrants, no quarding or rebound Neurologic: moves all extremities Results & Data Vital Signs (Past 12 Hours) Vital Signs Temp Pulse Pulse Resp BP BP Pulse Ox 12/11/18 07:30 36.6 C 89 17 160/90 H 88 L 12/11/18 05:53 160/82 H 12/11/18 00:54 169/61 H 12/10/18 23:45 36.9 C 86 14 182/62 H 92 (1) Abdominal pain Abdominal location: generalized Qualified Code(s): R10.84 - Generalized abdominal pain (2) Nausea & vomiting Vomiting Intractability: non-intractable Vomiting type: unspecified Qualified Code(s): R11.2 - Nausea with vomiting, unspecified
[2018-12-11] MEDS: ONDANSETRON INJ 2 MG/ML 2 ML VIAL IV PRN (12:25)
[2018-12-11] MEDS: LORazepam 0.5 MG/1 ML VIAL IV PRN (12:36)
--- NOTE | 2018-12-11 13:04 | Hospitalist Progress Note ---
Date of Service December 11, 2018 Assessment & Plan (1) SBO (small bowel obstruction): (2) Abdominal pain: (3) Nausea & vomiting: (4) Diarrhea: (5) UTI (urinary tract infection): (6) Hypothyroidism: (7) Anemia, chronic disease: (8) CKD (chronic kidney disease), stage IV: (9) GERD (gastroesophageal reflux disease): (10) HTN (hypertension): (11) Anxiety: (12) HLD (hyperlipidemia): General surgery has seen her, IV fluids, n.p.o. except ice chips and sips, upper GI with small bowel follow-through if doesn't resolve, pain control, continue outpatient medications where appropriate to include beta-maliha and nifedipine. Hold noncritical medications. Avoid Narcs, Continue Rocephin started in the emergency room for a UA that grew out E. coli which was pansensitive. DVT prophylaxis with SCDs and subcu heparin, PT eval and treat Primary care physician is Dr. Yogesh Quevedo ROS-No Headache, No Visual Changes, No Nausea, No Vomiting, No Fever, No Chills, No Neck Pain or Stiffness, No Chest Pain, No Palpitations, No SOB, No LEYVA, No Cough, No Sputum, No Wheezing, Minimal Abdominal Pain, No Diarrhea, No Hematemesis, No Hemoptysis, No Unexpected Weight Loss, No Flank pain, No Melena, No Hematochezia, No Frequency, No Urgency, No Burning, No Hematuria, No Rashes, No Diaphoresis. Appetite is Normal, Physical Exam Gen-AAO x 3, NAD, Afebrile Head-NCAT, EOMI, PERRLA, Anicteric Sclera, No Posterior Pharyngeal Erythema Neck-Supple, No JVD, No Thyromegaly, No Masses, No LAD, No Bruits Lungs-Clear to Auscultation Bilaterally, No Rales, No Rhonchi, No Wheezing, No Crepitus Chest-No S4, +S1, +S2, No S3, No Murmurs, No Rubs, No Gallops, No Ectopy Abdomen-Soft, Bowel Sounds Present, Non Tender, Non Distended, No Hepatomegaly, No Splenomegaly, No Palpable Masses, No Rebound, No Rigidity, No Guarding Musculoskeletal-Full Range of Motion Bilaterally, No CVAT Extremities-No Cyanosis, No Clubbing, No Edema Nuero-Cranial Nerves II-XII grossly intact, Motor WNL, DTRs WNL, Strength WNL, Non Focal Psych-Normal Mood Subjective Pt appears more confused - does not remember talking to me yesterday. Not complaining of abdominal pain or nausea. Lying in bed, resting comfortably. No bowel movement recorded. Results & Data Vital Signs (Past 12 Hours) Vital Signs Temp Pulse Resp BP BP Pulse Ox 12/11/18 11:15 36.2 C L 78 19 150/90 H 97 12/11/18 07:30 36.6 C 89 17 160/90 H 88 L 12/11/18 05:53 160/82 H Current Diagnoses Anemia in other chronic diseases classified elsewhere (12/10/18) Hypothyroidism, unspecified (12/10/18) Hyperlipidemia, unspecified (12/10/18) Anxiety disorder, unspecified (12/10/18) Essential (primary) hypertension (12/10/18) Gastro-esophageal reflux disease without esophagitis (12/10/18) Unspecified intestinal obstruction, unspecified as to partial versus complete obstruction (12/10/18) Chronic kidney disease, stage 4 (severe) (12/10/18) Acute cystitis with hematuria (12/10/18) Generalized abdominal pain (12/10/18) Nausea with vomiting, unspecified (12/10/18) Diarrhea, unspecified (12/10/18) Allergies Penicillins Allergy (Intermediate, Verified 12/10/18 05:13) HIVES iron Adverse Reaction (Mild, Verified 12/10/18 05:13) n&v, abd pain Venofer Adverse Reaction (Mild, Verified 02/28/18 08:54) n&v, abd pain Height/Weight/Isolation Height 5 ft Weight 54.3 kg Chemistry 12/10/18 12/11/18 05:10 07:38 Sodium 135 L 141 Potassium 4.8 5.2 H Chloride 104 110 H Carbon Dioxide 26 24 Anion Gap 5.0 7.0 BUN 53 H 50 H Creatinine 2.56 H 2.42 H Glucose 145 H 101 H Urinalysis 12/10/18 06:08 Urine Color Yellow Urine Appearance Clear Urine pH 6.5 Ur Specific Edison 1.022 Urine Protein 3+ H Urine Glucose (UA) Negative Urine Ketones Negative Urine Blood 1+ H Urine Nitrite Negative Urine Bilirubin Negative Microbiology 12/10/18 06:08 Urine,Straight Cath Urine Culture - Preliminary Gram negative bacilli (1) Abdominal pain Abdominal location: generalized Qualified Code(s): R10.84 - Generalized abdominal pain (2) Nausea & vomiting Vomiting Intractability: non-intractable Vomiting type: unspecified Qualified Code(s): R11.2 - Nausea with vomiting, unspecified (3) UTI (urinary tract infection) Hematuria presence: with hematuria Urinary tract infection type: acute cystitis Qualified Code(s): N30.01 - Acute cystitis with hematuria
[2018-12-11] MEDS: DEXTROSE 5% 1,000 ML IV SCH (14:36)
[2018-12-12] MEDS: INSULIN ASPART 100 UNITS/ML 3 ML PEN SC SCH ×4 (00:53→18:13)
[2018-12-12] MEDS: DEXTROSE 5% 1,000 ML IV SCH ×2 (02:43→14:11)
[2018-12-12] MEDS: LORazepam 0.5 MG/1 ML VIAL IV PRN (05:24)
[2018-12-12] MEDS: NIFEdipine EXTENDED REL 30 MG TABCR PO SCH (06:22)
[2018-12-12 06:33] LABS: Hematocrit (blood only) 23.7 % (37-47); Hemoglobin 7.9 g/dL (12.0-16.0); Mean Corpuscular Hgb Conc 33.3 g/dL (32-36); Mean Corpuscular Volume 103.5 fL (80-100); Platelet Count 123 K/uL (130-400); RDW Coefficient of Variation 13.5 % (11.5-14.5); RDW Standard Deviation 50.3 fL (36.4-46.3); Red Blood Count 2.29 M/uL (4.2-5.4); White Blood Count 6.63 K/uL (4.8-10.8)
[2018-12-12 06:49] LABS: Basophils # (auto) 0.01 K/uL (0-0.2); Basophils % (auto) 0.2 %; Eosinophils # (auto) 0.08 K/uL (0-0.5); Eosinophils % (auto) 1.2 %; Immature Granulocytes # (auto) 0.01 K/uL (0.00-0.02); Immature Granulocytes % (auto) 0.2 %; Lymphocytes % (auto) 28.7 %; Monocytes # (auto) 0.42 K/uL (0.11-0.59); Monocytes % (auto) 6.3 %; Neutrophils # (auto) 4.21 K/uL (1.4-6.5); Neutrophils % (auto) 63.4 %; Ovalocytes 1+
[2018-12-12 07:04] LABS: BUN Creatinine Ratio 21.7 (10-20); Calcium 8.2 mg/dl (8.5-10.1); Creatinine Clr Calc Pharmacy 12.8 ml/min; Est GFR (African American) 22.6; Est GFR (Non-African American) 19.5; Potassium 4.7 mmol/L (3.5-5.1)
[2018-12-12] MEDS: cefTRIAXone SODIUM 1,000 MG in DEXTROSE 5% 50 ML IV SCH (09:59)
[2018-12-12] MEDS: METOPROLOL TARTRATE 25 MG TAB PO SCH ×2 (10:00→20:25)
[2018-12-12] MEDS: HEPARIN SOD 5,000 UNIT/0.5 ML VIAL SQ SCH ×2 (10:01→20:27)
--- NOTE | 2018-12-12 12:15 | Surgery Progress Note ---
Date of Service December 12, 2018 Assessment & Plan (1) Abdominal pain: 88 year-old female with partial small bowel obstruction due to either inflammatory or obstructive etiology. Hard to assess for response or improvement - I would recommend repeat AXR to assess for persistence / resolution. She refuses. Discussed chest xray given her symptoms of difficulty breathing (subjective. Objectively, lungs clear). She refuses. Discussed with Dr. Cramer - unclear what further interventions should be done as she is refusing treatment. ? repeat discussion of code status with pt/ family? If she agrees, would proceed with xrays of abdomen/ chest. (2) Nausea & vomiting: Subjective Lying in bed stating she is "dying". Feels "weak and can't breathe". Very repetitive. Refusing evaluation with xrays/ imaging. No specific complaints of pain. No bowel movement or flatus recorded. No vomiting recorded. Physical Exam Constitutional: + thin Respiratory: Auscultation: lungs clear to auscultation bilaterally (wearing oxygen) Cardiovascular: RRR, no murmur, no edema Gastrointestinal (Abdomen): Inspection/Auscultation: normal bowel sounds Percussion/Palpation: + abdomen tender (mild in left upper quadrant) and abdomen soft; no guarding Neurologic: moves all extremities Results & Data Vital Signs (Past 12 Hours) Vital Signs Temp Pulse Resp BP Pulse Ox 12/12/18 07:14 36.5 C 72 18 154/52 H 100 12/12/18 05:06 36.6 C 98 (1) Abdominal pain Abdominal location: generalized Qualified Code(s): R10.84 - Generalized abdominal pain (2) Nausea & vomiting Vomiting Intractability: non-intractable Vomiting type: unspecified Qualified Code(s): R11.2 - Nausea with vomiting, unspecified
--- NOTE | 2018-12-12 13:06 | Hospitalist Progress Note ---
Date of Service December 12, 2018 Assessment & Plan (1) SBO (small bowel obstruction): (2) Abdominal pain: (3) Nausea & vomiting: (4) Diarrhea: (5) UTI (urinary tract infection): (6) Hypothyroidism: (7) Anemia, chronic disease: (8) CKD (chronic kidney disease), stage IV: (9) GERD (gastroesophageal reflux disease): (10) HTN (hypertension): (11) Anxiety: (12) HLD (hyperlipidemia): General surgery is on the Case, d/w Dr Taryn Solomon Today, try lactulose and dulcolax, IV fluids, n.p.o. except ice chips and sips, refusing all test, "wants to ", pain control, continue outpatient medications where appropriate to include beta-maliha and nifedipine. Hold noncritical medications. Avoid Narcs, Continue Rocephin, +E. coli which was pansensitive. DVT prophylaxis with SCDs and subcu heparin, PT Primary care physician is Dr. Yogesh Quevedo ROS-No Headache, No Visual Changes, No Nausea, No Vomiting, No Fever, No Chills, No Neck Pain or Stiffness, No Chest Pain, No Palpitations, No SOB, No LEYVA, No Cough, No Sputum, No Wheezing, Minimal Abdominal Pain, No Diarrhea, No Hematemesis, No Hemoptysis, No Unexpected Weight Loss, No Flank pain, No Melena, No Hematochezia, No Frequency, No Urgency, No Burning, No Hematuria, No Rashes, No Diaphoresis. Appetite is Normal, Physical Exam Gen-AAO x 3, NAD, Afebrile Head-NCAT, EOMI, PERRLA, Anicteric Sclera, No Posterior Pharyngeal Erythema Neck-Supple, No JVD, No Thyromegaly, No Masses, No LAD, No Bruits Lungs-Clear to Auscultation Bilaterally, No Rales, No Rhonchi, No Wheezing, No Crepitus Chest-No S4, +S1, +S2, No S3, No Murmurs, No Rubs, No Gallops, No Ectopy Abdomen-Soft, Bowel Sounds Present, Non Tender, Non Distended, No Hepatomegaly, No Splenomegaly, No Palpable Masses, No Rebound, No Rigidity, No Guarding Musculoskeletal-Full Range of Motion Bilaterally, No CVAT Extremities-No Cyanosis, No Clubbing, No Edema Nuero-Cranial Nerves II-XII grossly intact, Motor WNL, DTRs WNL, Strength WNL, Non Focal Psych-Normal Mood Results & Data Vital Signs (Past 12 Hours) Vital Signs Temp Pulse Resp BP Pulse Ox 12/12/18 07:14 36.5 C 72 18 154/52 H 100 12/12/18 05:06 36.6 C 98 Current Diagnoses Anemia in other chronic diseases classified elsewhere (12/10/18) Hypothyroidism, unspecified (12/10/18) Hyperlipidemia, unspecified (12/10/18) Anxiety disorder, unspecified (12/10/18) Essential (primary) hypertension (12/10/18) Gastro-esophageal reflux disease without esophagitis (12/10/18) Unspecified intestinal obstruction, unspecified as to partial versus complete obstruction (12/10/18) Chronic kidney disease, stage 4 (severe) (12/10/18) Acute cystitis with hematuria (12/10/18) Generalized abdominal pain (12/10/18) Nausea with vomiting, unspecified (12/10/18) Diarrhea, unspecified (12/10/18) Allergies Penicillins Allergy (Intermediate, Verified 12/10/18 05:13) HIVES iron Adverse Reaction (Mild, Verified 12/10/18 05:13) n&v, abd pain Venofer Adverse Reaction (Mild, Verified 02/28/18 08:54) n&v, abd pain Height/Weight/Isolation Height 5 ft Weight 54.3 kg Chemistry 12/11/18 12/12/18 07:38 06:05 Sodium 141 135 L Potassium 5.2 H 4.7 Chloride 110 H 107 Carbon Dioxide 24 24 Anion Gap 7.0 4.0 BUN 50 H 48 H Creatinine 2.42 H 2.19 H Glucose 101 H 97 Microbiology 12/10/18 06:08 Urine,Straight Cath Urine Culture - Preliminary Escherichia coli Enterococcus species (1) Abdominal pain Abdominal location: generalized Qualified Code(s): R10.84 - Generalized abdominal pain (2) Nausea & vomiting Vomiting Intractability: non-intractable Vomiting type: unspecified Qualified Code(s): R11.2 - Nausea with vomiting, unspecified (3) UTI (urinary tract infection) Hematuria presence: with hematuria Urinary tract infection type: acute cystitis Qualified Code(s): N30.01 - Acute cystitis with hematuria
[2018-12-12] MEDS: LACTULOSE SYRUP 30 GM/45 ML UDP PO SCH ×2 (14:02→20:27)
[2018-12-12] MEDS: BISACODYL 10 MG SUPP PR SCH ×2 (14:05→20:27)
--- NOTE | 2018-12-12 14:14 | XRay Report ---
KUB CLINICAL HISTORY: Small bowel obstruction. FINDINGS: 2 AP supine abdominal radiographs are correlated with abdominal CT dated 12/10/2018. There ar e distended and gas-filled loops of small bowel consistent with persistent obstruction. Small bowel l oops measure up to 4.8 cm. Gas is noted within the transverse colon. No evidence of intraperitoneal f ree air is seen on these supine images. There is advanced atherosclerotic calcification of the abdomi nal aorta. Phleboliths are noted in the pelvis. The skeletal structures are osteopenic. There is adva nced lumbosacral and scoliosis. 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 Advanced arthritic change is see n in the right hip. IMPRESSION: Persistent small bowel obstruction. Electronically signed by: Oziel Johnson M.D. 12/12/2018 2:12 PM
[2018-12-13] MEDS: INSULIN ASPART 100 UNITS/ML 3 ML PEN SC SCH ×6 (01:06→21:18)
[2018-12-13] MEDS: DEXTROSE 5% 1,000 ML IV SCH ×2 (02:16→15:34)
[2018-12-13] MEDS: NIFEdipine EXTENDED REL 30 MG TABCR PO SCH (05:50)
[2018-12-13 06:22] LABS: Hematocrit (blood only) 24.4 % (37-47); Hemoglobin 8.5 g/dL (12.0-16.0); Mean Corpuscular Hgb Conc 34.8 g/dL (32-36); Mean Corpuscular Volume 101.2 fL (80-100); Mean Platelet Volume 10.4 fL (7.4-10.4); Platelet Count 127 K/uL (130-400); RDW Coefficient of Variation 12.9 % (11.5-14.5); RDW Standard Deviation 47.1 fL (36.4-46.3); Red Blood Count 2.41 M/uL (4.2-5.4); White Blood Count 6.01 K/uL (4.8-10.8)
[2018-12-13 07:05] LABS: BUN Creatinine Ratio 19.5 (10-20); Calcium 8.1 mg/dl (8.5-10.1); Creatinine Clr Calc Pharmacy 15.3 ml/min; Est GFR (African American) 28.1; Est GFR (Non-African American) 24.2; Potassium 4.3 mmol/L (3.5-5.1)
[2018-12-13] MEDS: LACTULOSE SYRUP 30 GM/45 ML UDP PO SCH ×2 (09:41→20:36)
[2018-12-13] MEDS: BISACODYL 10 MG SUPP PR SCH ×2 (09:41→21:15)
[2018-12-13] MEDS: cefTRIAXone SODIUM 1,000 MG in DEXTROSE 5% 50 ML IV SCH (09:41)
[2018-12-13] MEDS: METOPROLOL TARTRATE 25 MG TAB PO SCH ×2 (09:42→20:39)
[2018-12-13] MEDS: HEPARIN SOD 5,000 UNIT/0.5 ML VIAL SQ SCH ×2 (09:43→21:17)
--- NOTE | 2018-12-13 12:59 | Discharge Summary ---
Date of Service December 13, 2018 Admission HPI Per Admitting Provider 88-year-old female with a past medical history of hypertension, anxiety, osteoporosis, CKD 3, hypothyroidism, hyperlipidemia, GERD, anemia of chronic disease and constipation presents complaining of 3 days of nausea vomiting and abdominal pain. She also notes that she had diarrhea for the last 3 days, it was not getting any better so she came to the emergency room. She denies fevers, chills, chest pain. She did not notice any blood in her urine or in her stool she had a recent UA which showed pansensitive E. coli. General surgery has been consulted. She had 2 large BMs on 12/12 and 12/13. Started clears 12/13 and ADAT, DC later today 12/13 if tolerates diet-ADAT to Regular. Admission Exam Per Admitting Provider ROS-No Headache, No Visual Changes, No Fever, No Chills, No Neck Pain or Stiffness, No Chest Pain, No Palpitations, No SOB, No LEYVA, No Cough, No Sputum, No Wheezing, positive generalized lower abdominal Pain, positive diarrhea, No Hematemesis, No Hemoptysis, No Unexpected Weight Loss, No Flank pain, No Melena, No Hematochezia, No Frequency, No Urgency, No Burning, No Hematuria, No Rashes, No Diaphoresis. Appetite is decreased Physical Exam Gen-AAO x 3, NAD, Afebrile, pleasant Head-NCAT, EOMI, PERRLA, Anicteric Sclera, No Posterior Pharyngeal Erythema Neck-Supple, No JVD, No Thyromegaly, No Masses, No LAD, No Bruits Lungs-Clear to Auscultation Bilaterally, No Rales, No Rhonchi, No Wheezing, No Crepitus Chest-No S4, +S1, +S2, No S3, No Murmurs, No Rubs, No Gallops, No Ectopy Abdomen-Soft, Bowel Sounds Present, Mildly tender, Non Distended, No Hepatomegaly, No Splenomegaly, No Palpable Masses, No Rebound, No Rigidity, No Guarding Musculoskeletal-Full Range of Motion Bilaterally, No CVAT Extremities-No Cyanosis, No Clubbing, No Edema Nuero-Cranial Nerves II-XII grossly intact, Motor WNL, DTRs WNL, Strength WNL, No Focal Psych-Normal Mood Principal Diagnosis (1) SBO (small bowel obstruction): (2) Abdominal pain: (3) Nausea & vomiting: (4) Diarrhea: (5) UTI (urinary tract infection): (6) Hypothyroidism: (7) Anemia, chronic disease: (8) CKD (chronic kidney disease), stage IV: (9) GERD (gastroesophageal reflux disease): (10) HTN (hypertension): (11) Anxiety: (12) HLD (hyperlipidemia): Discharge Exam ROS-No Headache, No Visual Changes, No Nausea, No Vomiting, No Fever, No Chills, No Neck Pain or Stiffness, No Chest Pain, No Palpitations, No SOB, No LEYVA, No Cough, No Sputum, No Wheezing, No Abdominal Pain, No Diarrhea, No Hematemesis, No Hemoptysis, No Unexpected Weight Loss, No Flank pain, No Melena, No Hematochezia, No Frequency, No Urgency, No Burning, No Hematuria, No Rashes, No Diaphoresis. Appetite is Normal Physical Exam Gen-AAO x 3, NAD, Afebrile Head-NCAT, EOMI, PERRLA, Anicteric Sclera, No Posterior Pharyngeal Erythema Neck-Supple, No JVD, No Thyromegaly, No Masses, No LAD, No Bruits Lungs-Clear to Auscultation Bilaterally, No Rales, No Rhonchi, No Wheezing, No Crepitus Chest-No S4, +S1, +S2, No S3, No Murmurs, No Rubs, No Gallops, No Ectopy Abdomen-Soft, Bowel Sounds Present, Non Tender, Non Distended, No Hepatomegaly, No Splenomegaly, No Palpable Masses, No Rebound, No Rigidity, No Guarding Musculoskeletal-Full Range of Motion Bilaterally, No CVAT Extremities-No Cyanosis, No Clubbing, No Edema Nuero-Cranial Nerves II-XII grossly intact, Motor WNL, DTRs WNL, Strength WNL, Non Focal Psych-Normal Mood Discharge Data Allergies Allergy/AdvReac Type Severity Reaction Status Date / Time Penicillins Allergy Intermediate HIVES Verified 12/10/18 05:13 iron AdvReac Mild n&v, abd Verified 12/10/18 05:13 pain Venofer AdvReac Mild n&v, abd Verified 02/28/18 08:54 pain Consultations 12/10/18 07:50 Consult General Surgery Stat Ordered Studies 12/10/18 06:27 CT abd pelvis wo con Stat Current Diagnoses Anemia in other chronic diseases classified elsewhere (12/10/18) Hypothyroidism, unspecified (12/10/18) Hyperlipidemia, unspecified (12/10/18) Anxiety disorder, unspecified (12/10/18) Essential (primary) hypertension (12/10/18) Gastro-esophageal reflux disease without esophagitis (12/10/18) Unspecified intestinal obstruction, unspecified as to partial versus complete obstruction (12/10/18) Chronic kidney disease, stage 4 (severe) (12/10/18) Acute cystitis with hematuria (12/10/18) Generalized abdominal pain (12/10/18) Nausea with vomiting, unspecified (12/10/18) Diarrhea, unspecified (12/10/18) Allergies Penicillins Allergy (Intermediate, Verified 12/10/18 05:13) HIVES iron Adverse Reaction (Mild, Verified 12/10/18 05:13) n&v, abd pain Venofer Adverse Reaction (Mild, Verified 02/28/18 08:54) n&v, abd pain Height/Weight/Isolation Height 5 ft Weight 54.3 kg Chemistry 12/12/18 12/13/18 06:05 05:56 Sodium 135 L 134 L Potassium 4.7 4.3 Chloride 107 104 Carbon Dioxide 24 24 Anion Gap 4.0 6.0 BUN 48 H 36 H Creatinine 2.19 H 1.83 H D Glucose 97 99 Microbiology 12/10/18 06:08 Urine,Straight Cath Urine Culture - Preliminary Escherichia coli Enterococcus faecalis Hospital Course (1) SBO (small bowel obstruction): (2) Abdominal pain: (3) Nausea & vomiting: (4) Diarrhea: (5) UTI (urinary tract infection): (6) Hypothyroidism: (7) Anemia, chronic disease: (8) CKD (chronic kidney disease), stage IV: (9) GERD (gastroesophageal reflux disease): (10) HTN (hypertension): (11) Anxiety: (12) HLD (hyperlipidemia): General surgery was on the Case, d/w Dr Taryn Solomon on 12/13, started lactulose and dulcolax, and she had 2 large BMs, she was treated c IV fluids, lept n.p.o. except ice chips and sips, she was refusing all test, "wants to ", Primary care physician is Dr. Yogesh Quevedo she will see him in f/u on December 17 @ 1045, DC c [facility] for safety checks and med review ROS-No Headache, No Visual Changes, No Nausea, No Vomiting, No Fever, No Chills, No Neck Pain or Stiffness, No Chest Pain, No Palpitations, No SOB, No LEYVA, No Cough, No Sputum, No Wheezing, Minimal Abdominal Pain, No Diarrhea, No Hematemesis, No Hemoptysis, No Unexpected Weight Loss, No Flank pain, No Melena, No Hematochezia, No Frequency, No Urgency, No Burning, No Hematuria, No Rashes, No Diaphoresis. Appetite is Normal, +BM x 2 Physical Exam Gen-AAO x 3, NAD, Afebrile Head-NCAT, EOMI, PERRLA, Anicteric Sclera, No Posterior Pharyngeal Erythema Neck-Supple, No JVD, No Thyromegaly, No Masses, No LAD, No Bruits Lungs-Clear to Auscultation Bilaterally, No Rales, No Rhonchi, No Wheezing, No Crepitus Chest-No S4, +S1, +S2, No S3, No Murmurs, No Rubs, No Gallops, No Ectopy Abdomen-Soft, Bowel Sounds Present, Non Tender, Non Distended, No Hepatomegaly, No Splenomegaly, No Palpable Masses, No Rebound, No Rigidity, No Guarding Musculoskeletal-Full Range of Motion Bilaterally, No CVAT Extremities-No Cyanosis, No Clubbing, No Edema Nuero-Cranial Nerves II-XII grossly intact, Motor WNL, DTRs WNL, Strength WNL, Non Focal Psych-Normal Mood Total Time Total Time Spent Total Time Spent (In Minutes): 40 mins Total Time Includes: Examination of the Patient, Discharge Planning, Medication Reconciliation and Communication With Other Providers Discharge Plan Discharge Items Patient Disposition: Home - Home Health Services Reason For Visit: SBO, UTI Discharge Diagnosis: (1) SBO (small bowel obstruction): (2) Abdominal pain: (3) Nausea & vomiting: (4) Diarrhea: (5) UTI (urinary tract infection): (6) Hypothyroidism: (7) Anemia, chronic disease: (8) CKD (chronic kidney disease), stage IV: (9) GERD (gastroesophageal reflux disease): (10) HTN (hypertension): (11) Anxiety: (12) HLD (hyperlipidemia): Condition: Good Discharge Goals: Improve function Activity: Resume your previous activity Lifting: Gradually increase as tolerated Bathing: No limitations Exercise/Sports: Gradually increase as tolerated Driving/Machine Use: No limitations Weightbearing: Left weightbearing and Right weightbearing Non-emergency contact: Primary Care Provider Call non-emergency contact if: you have any medication questions and your symptoms worsen Follow-up/Referrals: Yogesh Quevedo MD [Primary Care Provider] - 12/17/18 10:45 am Diet: Heart Healthy Addtl Provider Instructions: Routine f/u Prescriptions: New cefuroxime axetil 250 mg tablet 250 mg PO BID 5 Days Qty: 10 RF: 0 Continued nifedipine 30 mg tablet extended release 24hr 30 mg PO DAILY RF: 0 citalopram 10 mg tablet 5 mg PO DAILY RF: 0 sodium chloride 1 gram tablet 1 g PO DAILY RF: 0 aspirin 81 mg Tablet,Delayed Release (Dr/Ec) 81 mg PO DAILY RF: 0 levothyroxine 88 mcg tablet 88 mcg PO DAILY RF: 0 lorazepam 0.5 mg tablet 1 mg PO Q8H PRN (Reason: Anxiety) RF: 0 pantoprazole 40 mg tablet,delayed release (DR/EC) 40 mg PO DAILY RF: 0 ranitidine HCl 150 mg tablet 150 mg PO QAM RF: 0 bumetanide 1 mg tablet 0.5 mg PO QAM RF: 0 Procrit 10,000 unit/mL Solution 10,000 unit subcut Q14D RF: 0 metoprolol tartrate 25 mg tablet 12.5 mg PO BID RF: 0 acetaminophen 650 mg Tablet Extended Release 650 mg PO Q8H PRN (Reason: pain/fever) RF: 0 atorvastatin 10 mg Tablet 10 mg PO DAILY RF: 0 cholecalciferol (vitamin D3) 1,000 unit Capsule 1,000 unit PO DAILY RF: 0 docusate sodium 100 mg Capsule 100 mg PO BID RF: 0 magnesium oxide 400 mg magnesium Tablet 400 mg PO DAILY RF: 0 Nepro Carb Steady 0.08 gram-1.8 kcal/mL Liquid 1 can PO BID RF: 0 polyethylene glycol 3350 [Miralax] 17 gram/dose Powder 17 g PO DAILY PRN (Reason: Constipation) RF: 0 triamcinolone acetonide 0.1 % Cream 1 applic TOPICAL BID RF: 0 Shingrex 50 mcg INJ DIRECTED RF: 0 Stand-Alone Forms: [facility] Discharge Orders: Discharge Order (Routine); Ordered 12/13/18 Ordered By: Ramez Cramer Admission Data Admit Date/Time: 12/10/18 09:14 Attending Provider: Ramez Cramer Admit Provider: Ramez Cramer Primary Care Provider: Yogesh Quevedo Other Providers: Taryn Solomon Service: Medical
--- NOTE | 2018-12-13 13:32 | Surgery Progress Note ---
Date of Service December 13, 2018 Assessment & Plan (1) Abdominal pain: 88 year-old female with partial small bowel obstruction due to either inflammatory or obstructive etiology. 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 Mustafa was present during my examination and agrees with above. Subjective feeling bloated today no nausea or vomiting has 2 or 3 bowel movements this morning PT just finished working with patient, states she walked down the [place] and back with them Physical Exam Constitutional: + thin; no acute distress and not ill appearing elderly female Respiratory: normal respiratory effort; no respiratory distress Gastrointestinal (Abdomen): Inspection/Auscultation: + abdomen distended and normal bowel sounds Percussion/Palpation: abdomen soft; abdomen nontender, no guarding and abdomen not rigid Skin: no rashes, warm and dry Psychiatric: A+Ox3, euthymic affect Results & Data Vital Signs (Past 12 Hours) Vital Signs Temp Pulse Resp BP Pulse Ox 12/13/18 10:53 94 12/13/18 08:22 37.3 C 82 18 132/72 99 Laboratory Results 12/13/18 12/13/18 12/13/18 Range/Units 11:58 05:56 05:56 WBC 6.01 (4.8-10.8) K/uL RBC 2.41 L (4.2-5.4) M/uL Hgb 8.5 L (12.0-16.0) g/dL Hct 24.4 L (37-47) % MCV 101.2 H (80-100) fL MCH 35.3 H (25-34) pg MCHC 34.8 (32-36) g/dL RDW Std Deviation 47.1 H (36.4-46.3) fL RDW Coeff of Liss 12.9 (11.5-14.5) % Plt Count 127 L (130-400) K/uL MPV 10.4 (7.4-10.4) fL Sodium 134 L (136-145) mmol/L Potassium 4.3 (3.5-5.1) mmol/L Chloride 104 (98-107) mmol/L Carbon Dioxide 24 (21-32) mmol/L Anion Gap 6.0 (3-11) BUN 36 H (7-18) mg/dl Creatinine 1.83 H D (0.6-1.2) mg/dl Est Cr Clr Drug Dosing 15.3 ml/min Est GFR ( Amer) 28.1 Est GFR (Non-Af Amer) 24.2 BUN/Creatinine Ratio 19.5 (10-20) Glucose 99 (70-99) mg/dl POC Glucose 119 H (70-99) Calcium 8.1 L (8.5-10.1) mg/dl 12/13/18 12/13/18 12/12/18 Range/Units 05:46 00:08 18:01 WBC (4.8-10.8) K/uL RBC (4.2-5.4) M/uL Hgb (12.0-16.0) g/dL Hct (37-47) % MCV (80-100) fL MCH (25-34) pg MCHC (32-36) g/dL RDW Std Deviation (36.4-46.3) fL RDW Coeff of Liss (11.5-14.5) % Plt Count (130-400) K/uL MPV (7.4-10.4) fL Sodium (136-145) mmol/L Potassium (3.5-5.1) mmol/L Chloride (98-107) mmol/L Carbon Dioxide (21-32) mmol/L Anion Gap (3-11) BUN (7-18) mg/dl Creatinine (0.6-1.2) mg/dl Est Cr Clr Drug Dosing ml/min Est GFR ( Amer) Est GFR (Non-Af Amer) BUN/Creatinine Ratio (10-20) Glucose (70-99) mg/dl POC Glucose 107 H 106 H 113 H (70-99) Calcium (8.5-10.1) mg/dl (1) Abdominal pain Abdominal location: generalized Qualified Code(s): R10.84 - Generalized abdominal pain
[2018-12-13] MEDS: ONDANSETRON INJ 2 MG/ML 2 ML VIAL IV PRN (17:08)
[2018-12-13] MEDS ORDERED: ACETAMINOPHEN 650 MG SUPP PR PRN (17:41)
[2018-12-13] MEDS ORDERED: ACETAMINOPHEN 325 MG TAB PO PRN (17:42)
[2018-12-13] MEDS ORDERED: TRAMADOL HCL 50 MG TABLET PO PRN (19:32)
--- NOTE | 2018-12-13 21:26 | CT Scan Report ---
ABDOMEN AND PELVIS CT WITHOUT CONTRAST CT DOSE: 370.14 mGy.cm HISTORY: Acute generalized abdominal pain with possible small bowel obstruction ABDOMINAL PAIN, SBO TECHNIQUE: Multiaxial CT images of the abdomen and pelvis were performed without contrast. A dose lo wering technique was utilized adhering to the principles of ALARA. COMPARISON STUDY: CT abdomen and pelvis 12/10/2018. FINDINGS: Interval development of small bilateral pleural effusions with bibasilar consolidative opacities. The re is no pneumatosis or pneumoperitoneum identified. The study is limited secondary to motion and pos itioning of the patient's upper extremities. Calcification of the ascending thoracic aorta with fusif orm dilation measuring up to 4.5 x 4.5 cm. Mild to moderate cardiomegaly. Evaluation of the solid abdominal organs is limited without the use of IV contrast. The spleen is dim inutive. The gallbladder is not identified and may be surgically absent. Moderate generalized pancrea tic atrophy. Adrenal glands are unremarkable. Mild nonspecific bilateral perinephric stranding, right greater than left. Interval bilateral renal lesions includes a 9 mm intermediate density exophytic l esion of the lower pole right kidney. No renal or ureteral calculi or obstructive uropathy identified . Villegas catheter noted within a decompressed or bladder. Suboptimal dilation of the pelvic structures secondary to streak artifact from left hip total joint arthroplasty. Prior hysterectomy. Extensive c alcification about the abdominal aorta. Mild fusiform dilation of the descending thoracic aorta. Ther e is no adenopathy. Fluid-filled mildly distended stomach. Trace ascites. Multiple fluid-filled dilated loops of small héctor wel are again seen measuring up to 3.3 cm transversely with associated air-fluid levels. There is ove rall slightly decreased small bowel distention from comparison. Trace free pelvic fluid. Colonic dive rticulosis without acute diverticulitis. The large bowel is predominately decompressed. The exact tra nsition point is not identified. There are however transitioned loops of small bowel noted in the abd ominal left lower quadrant. Mild generalized body wall edema. Demineralized appearance of the bones. Asymmetric sclerosis of the right sacrum is unchanged. IMPRESSION: 1. Findings compatible with ongoing small bowel obstruction with degree of small bowel distention sta ble to slightly improved from 12/10/2018. 2. No pneumatosis or pneumoperitoneum. 3. Interval development of small bilateral pleural effusions with bibasilar consolidative opacities. 4. Mild generalized body wall edema with trace abdominopelvic ascites. 5. Colonic diverticulosis without acute diverticulitis. 6. Additional findings as above. Electronically signed by: Lefty Madrid M.D. 12/13/2018 9:24 PM
[2018-12-13] MEDS ORDERED: METOPROLOL TARTRATE 1 MG/ML VIAL IV PRN (22:01)
[2018-12-13] MEDS ORDERED: METOPROLOL TARTRATE 1 MG/ML VIAL IV ONE (22:15)
[2018-12-14] MEDS: MoRPHine SULFATE 2 MG/ML CARP IV PRN ×2 (02:24→05:32)
[2018-12-14] MEDS: ONDANSETRON INJ 2 MG/ML 2 ML VIAL IV PRN (02:24)
[2018-12-14] MEDS: DEXTROSE 5% 1,000 ML IV SCH (04:55)
[2018-12-14] MEDS: NIFEdipine EXTENDED REL 30 MG TABCR PO SCH (05:34)
[2018-12-14 08:08] LABS: Basophils # (auto) 0.01 K/uL (0-0.2); Basophils % (auto) 0.1 %; Eosinophils # (auto) 0.02 K/uL (0-0.5); Eosinophils % (auto) 0.3 %; Hematocrit (blood only) 26.3 % (37-47); Immature Granulocytes # (auto) 0.04 K/uL (0.00-0.02); Immature Granulocytes % (auto) 0.5 %; Lymphocytes # (auto) 0.81 K/uL (1.2-3.4); Lymphocytes % (auto) 10.8 %; Mean Corpuscular Hgb Conc 34.2 g/dL (32-36); Mean Corpuscular Volume 99.6 fL (80-100); Mean Platelet Volume 10.4 fL (7.4-10.4); Monocytes # (auto) 0.64 K/uL (0.11-0.59); Monocytes % (auto) 8.5 %; Neutrophils # (auto) 5.98 K/uL (1.4-6.5); Neutrophils % (auto) 79.8 %; Platelet Count 145 K/uL (130-400); RDW Coefficient of Variation 12.8 % (11.5-14.5); RDW Standard Deviation 46.7 fL (36.4-46.3); Red Blood Count 2.64 M/uL (4.2-5.4)
[2018-12-14 08:14] LABS: BUN Creatinine Ratio 18.7 (10-20); Calcium 8.2 mg/dl (8.5-10.1); Creatinine Clr Calc Pharmacy 20.5 ml/min; Est GFR (African American) 35.1; Est GFR (Non-African American) 30.3
[2018-12-14] MEDS: METOPROLOL TARTRATE 25 MG TAB PO SCH ×2 (09:31→20:29)
[2018-12-14] MEDS: BISACODYL 10 MG SUPP PR SCH ×2 (09:31→20:29)
[2018-12-14] MEDS: cefTRIAXone SODIUM 1,000 MG in DEXTROSE 5% 50 ML IV SCH (09:31)
[2018-12-14] MEDS: INSULIN ASPART 100 UNITS/ML 3 ML PEN SC SCH ×4 (09:33→20:31)
[2018-12-14] MEDS: LACTULOSE SYRUP 30 GM/45 ML UDP PO SCH ×2 (09:33→20:26)
[2018-12-14] MEDS: HEPARIN SOD 5,000 UNIT/0.5 ML VIAL SQ SCH ×2 (09:34→20:29)
--- NOTE | 2018-12-14 11:21 | Surgery Progress Note ---
Date of Service December 14, 2018 Assessment & Plan (1) Abdominal pain: 88 year-old female with partial small bowel obstruction due to either inflammatory or obstructive etiology. - + bowel function - abdomen still mildly distended but soft and nontender on examination - episode of vomiting yesterday - repeat CT scan of abdomen and pelvis showing mildly improved small bowel distention however still findings of SBO Plan: There is no acute surgical indication required at this time however if patient doesn't improve, there is concern for possible need for surgical intervention. Patient does not want any surgical intervention even if she does not improve with conservative measures. Would continue bowel regimen with dulcolax and Lactulose. Could consider small bowel follow through if tolerates clear liquids however unsure if patient would agree as she has refused abdominal xrays. Continue current medical management will follow along Dr. Mustafa has seen and examined pt, agrees with above. Subjective hard to obtain review of systems from patient, very vague and doesn't want to answer most of my questions having abdominal pain when moving around but feeling better today than yesterday No appetite has not passed any gas or bowel movements today so far, unsure of when her last bowel movement was no nausea or vomiting Physical Exam Constitutional: WD/WN, vitals as above + thin; no acute distress and not ill appearing elderly female Respiratory: normal respiratory effort; no respiratory distress Gastrointestinal (Abdomen): Inspection/Auscultation: + abdomen distended (mild) and normal bowel sounds Percussion/Palpation: abdomen soft; abdomen nontender, no guarding and abdomen not rigid Skin: no rashes, warm and dry Psychiatric: A+Ox3, euthymic affect Results & Data Vital Signs (Past 12 Hours) Vital Signs Temp Pulse Pulse Pulse Resp BP BP 12/14/18 08:00 93 H 12/14/18 07:54 36.9 C 72 20 168/65 H 12/14/18 06:49 94 H 187/69 H 12/14/18 01:37 78 Pulse Ox 12/14/18 08:00 12/14/18 07:54 96 12/14/18 06:49 94 12/14/18 01:37 Laboratory Results 12/14/18 12/14/18 12/14/18 Range/Units 07:39 06:04 06:04 WBC 7.50 (4.8-10.8) K/uL RBC 2.64 L (4.2-5.4) M/uL Hgb 9.0 L (12.0-16.0) g/dL Hct 26.3 L (37-47) % MCV 99.6 (80-100) fL MCH 34.1 H (25-34) pg MCHC 34.2 (32-36) g/dL RDW Std Deviation 46.7 H (36.4-46.3) fL RDW Coeff of Liss 12.8 (11.5-14.5) % Plt Count 145 (130-400) K/uL MPV 10.4 (7.4-10.4) fL Immature Gran % (Auto) 0.5 % Neut % (Auto) 79.8 % Lymph % (Auto) 10.8 % Harnett % (Auto) 8.5 % Eos % (Auto) 0.3 % Baso % (Auto) 0.1 % Immature Gran # (Auto) 0.04 H (0.00-0.02) K/uL Neut # (Auto) 5.98 (1.4-6.5) K/uL Lymph # (Auto) 0.81 L (1.2-3.4) K/uL Harnett # (Auto) 0.64 H (0.11-0.59) K/uL Eos # (Auto) 0.02 (0-0.5) K/uL Baso # (Auto) 0.01 (0-0.2) K/uL Sodium 131 L (136-145) mmol/L Potassium 4.0 (3.5-5.1) mmol/L Chloride 102 (98-107) mmol/L Carbon Dioxide 23 (21-32) mmol/L Anion Gap 7.0 (3-11) BUN 28 H (7-18) mg/dl Creatinine 1.52 H D (0.6-1.2) mg/dl Est Cr Clr Drug Dosing 20.5 ml/min Est GFR ( Amer) 35.1 Est GFR (Non-Af Amer) 30.3 BUN/Creatinine Ratio 18.7 (10-20) Glucose 134 H (70-99) mg/dl POC Glucose 133 H (70-99) Lactate (0.4-2.0) mmol/L Calcium 8.2 L (8.5-10.1) mg/dl Ammonia (11-32) umol/L 12/14/18 12/13/18 12/13/18 Range/Units 06:04 22:48 21:13 WBC (4.8-10.8) K/uL RBC (4.2-5.4) M/uL Hgb (12.0-16.0) g/dL Hct (37-47) % MCV (80-100) fL MCH (25-34) pg MCHC (32-36) g/dL RDW Std Deviation (36.4-46.3) fL RDW Coeff of Liss (11.5-14.5) % Plt Count (130-400) K/uL MPV (7.4-10.4) fL Immature Gran % (Auto) % Neut % (Auto) % Lymph % (Auto) % Harnett % (Auto) % Eos % (Auto) % Baso % (Auto) % Immature Gran # (Auto) (0.00-0.02) K/uL Neut # (Auto) (1.4-6.5) K/uL Lymph # (Auto) (1.2-3.4) K/uL Harnett # (Auto) (0.11-0.59) K/uL Eos # (Auto) (0-0.5) K/uL Baso # (Auto) (0-0.2) K/uL Sodium (136-145) mmol/L Potassium (3.5-5.1) mmol/L Chloride (98-107) mmol/L Carbon Dioxide (21-32) mmol/L Anion Gap (3-11) BUN (7-18) mg/dl Creatinine (0.6-1.2) mg/dl Est Cr Clr Drug Dosing ml/min Est GFR ( Amer) Est GFR (Non-Af Amer) BUN/Creatinine Ratio (10-20) Glucose (70-99) mg/dl POC Glucose 164 H (70-99) Lactate 0.9 (0.4-2.0) mmol/L Calcium (8.5-10.1) mg/dl Ammonia 21.0 (11-32) umol/L 12/13/18 12/13/18 Range/Units 18:01 11:58 WBC (4.8-10.8) K/uL RBC (4.2-5.4) M/uL Hgb (12.0-16.0) g/dL Hct (37-47) % MCV (80-100) fL MCH (25-34) pg MCHC (32-36) g/dL RDW Std Deviation (36.4-46.3) fL RDW Coeff of Liss (11.5-14.5) % Plt Count (130-400) K/uL MPV (7.4-10.4) fL Immature Gran % (Auto) % Neut % (Auto) % Lymph % (Auto) % Harnett % (Auto) % Eos % (Auto) % Baso % (Auto) % Immature Gran # (Auto) (0.00-0.02) K/uL Neut # (Auto) (1.4-6.5) K/uL Lymph # (Auto) (1.2-3.4) K/uL Harnett # (Auto) (0.11-0.59) K/uL Eos # (Auto) (0-0.5) K/uL Baso # (Auto) (0-0.2) K/uL Sodium (136-145) mmol/L Potassium (3.5-5.1) mmol/L Chloride (98-107) mmol/L Carbon Dioxide (21-32) mmol/L Anion Gap (3-11) BUN (7-18) mg/dl Creatinine (0.6-1.2) mg/dl Est Cr Clr Drug Dosing ml/min Est GFR ( Amer) Est GFR (Non-Af Amer) BUN/Creatinine Ratio (10-20) Glucose (70-99) mg/dl POC Glucose 145 H 119 H (70-99) Lactate (0.4-2.0) mmol/L Calcium (8.5-10.1) mg/dl Ammonia (11-32) umol/L Diagnostic Findings ABDOMEN AND PELVIS CT WITHOUT CONTRAST CT DOSE: 370.14 mGy.cm HISTORY: Acute generalized abdominal pain with possible small bowel obstruction ABDOMINAL PAIN, SBO TECHNIQUE: Multiaxial CT images of the abdomen and pelvis were performed without contrast. A dose lowering technique was utilized adhering to the principles of ALARA. COMPARISON STUDY: CT abdomen and pelvis 12/10/2018. FINDINGS: Interval development of small bilateral pleural effusions with bibasilar consolidative opacities. There is no pneumatosis or pneumoperitoneum identified. The study is limited secondary to motion and positioning of the patient's upper extremities. Calcification of the ascending thoracic aorta with fusiform dilation measuring up to 4.5 x 4.5 cm. Mild to moderate cardiomegaly. Evaluation of the solid abdominal organs is limited without the use of IV contrast. The spleen is diminutive. The gallbladder is not identified and may be surgically absent. Moderate generalized pancreatic atrophy. Adrenal glands are unremarkable. Mild nonspecific bilateral perinephric stranding, right greater than left. Interval bilateral renal lesions includes a 9 mm intermediate density exophytic lesion of the lower pole right kidney. No renal or ureteral calculi or obstructive uropathy identified. Villegas catheter noted within a decompressed or bladder. Suboptimal dilation of the pelvic structures secondary to streak artifact from left hip total joint arthroplasty. Prior hysterectomy. Extensive calcification about the abdominal aorta. Mild fusiform dilation of the descending thoracic aorta. There is no adenopathy. Fluid-filled mildly distended stomach. Trace ascites. Multiple fluid-filled dilated loops of small bowel are again seen measuring up to 3.3 cm transversely with associated air-fluid levels. There is overall slightly decreased small bowel distention from comparison. Trace free pelvic fluid. Colonic diverticulosis without acute diverticulitis. The large bowel is predominately decompressed. The exact transition point is not identified. There are however transitioned loops of small bowel noted in the abdominal left lower quadrant. Mild generalized body wall edema. Demineralized appearance of the bones. Asymmetric sclerosis of the right sacrum is unchanged. IMPRESSION: 1. Findings compatible with ongoing small bowel obstruction with degree of small bowel distention stable to slightly improved from 12/10/2018. 2. No pneumatosis or pneumoperitoneum. 3. Interval development of small bilateral pleural effusions with bibasilar consolidative opacities. 4. Mild generalized body wall edema with trace abdominopelvic ascites. 5. Colonic diverticulosis without acute diverticulitis. 6. Additional findings as above. (1) Abdominal pain Abdominal location: generalized Qualified Code(s): R10.84 - Generalized abdominal pain
--- NOTE | 2018-12-14 11:55 | Hospitalist Progress Note ---
Date of Service December 14, 2018 Assessment & Plan (1) SBO (small bowel obstruction): (2) Abdominal pain: (3) Nausea & vomiting: (4) Diarrhea: (5) UTI (urinary tract infection): (6) Hypothyroidism: (7) Anemia, chronic disease: (8) CKD (chronic kidney disease), stage IV: (9) GERD (gastroesophageal reflux disease): (10) HTN (hypertension): (11) Anxiety: (12) HLD (hyperlipidemia): General surgery on the Case, not toleration clears, Still c SBO, she was refusing all test, "wants to ", [facility] Primary care physician is Dr. Yogesh Quevedo she will see him in f/u on December 17 @ 1045, DC c [facility] for safety checks and med review ROS-No Headache, No Visual Changes, No Nausea, No Vomiting, No Fever, No Chills, No Neck Pain or Stiffness, No Chest Pain, No Palpitations, No SOB, No LEYVA, No Cough, No Sputum, No Wheezing, Minimal Abdominal Pain, No Diarrhea, No Hematemesis, No Hemoptysis, No Unexpected Weight Loss, No Flank pain, No Melena, No Hematochezia, No Frequency, No Urgency, No Burning, No Hematuria, No Rashes, No Diaphoresis. Appetite is Normal, +BM x 2 Physical Exam Gen-AAO x 3, NAD, Afebrile Head-NCAT, EOMI, PERRLA, Anicteric Sclera, No Posterior Pharyngeal Erythema Neck-Supple, No JVD, No Thyromegaly, No Masses, No LAD, No Bruits Lungs-Clear to Auscultation Bilaterally, No Rales, No Rhonchi, No Wheezing, No Crepitus Chest-No S4, +S1, +S2, No S3, No Murmurs, No Rubs, No Gallops, No Ectopy Abdomen-Soft, Bowel Sounds Present, Non Tender, Non Distended, No Hepatomegaly, No Splenomegaly, No Palpable Masses, No Rebound, No Rigidity, No Guarding Musculoskeletal-Full Range of Motion Bilaterally, No CVAT Extremities-No Cyanosis, No Clubbing, No Edema Nuero-Cranial Nerves II-XII grossly intact, Motor WNL, DTRs WNL, Strength WNL, Non Focal Psych-Normal Mood Results & Data Vital Signs (Past 12 Hours) Vital Signs Temp Pulse Pulse Pulse Resp BP BP 12/14/18 11:48 36.8 C 81 20 146/75 H 12/14/18 08:00 93 H 12/14/18 07:54 36.9 C 72 20 168/65 H 12/14/18 06:49 94 H 187/69 H 12/14/18 01:37 78 Pulse Ox 12/14/18 11:48 94 12/14/18 08:00 12/14/18 07:54 96 12/14/18 06:49 94 12/14/18 01:37 Current Diagnoses Anemia in other chronic diseases classified elsewhere (12/10/18) Hypothyroidism, unspecified (12/10/18) Hyperlipidemia, unspecified (12/10/18) Anxiety disorder, unspecified (12/10/18) Essential (primary) hypertension (12/10/18) Gastro-esophageal reflux disease without esophagitis (12/10/18) Unspecified intestinal obstruction, unspecified as to partial versus complete obstruction (12/10/18) Chronic kidney disease, stage 4 (severe) (12/10/18) Acute cystitis with hematuria (12/10/18) Generalized abdominal pain (12/10/18) Nausea with vomiting, unspecified (12/10/18) Diarrhea, unspecified (12/10/18) Allergies Penicillins Allergy (Intermediate, Verified 12/10/18 05:13) HIVES iron Adverse Reaction (Mild, Verified 12/10/18 05:13) n&v, abd pain Venofer Adverse Reaction (Mild, Verified 02/28/18 08:54) n&v, abd pain Height/Weight/Isolation Height 5 ft Weight 58.6 kg Chemistry 12/13/18 12/14/18 05:56 06:04 Sodium 134 L 131 L Potassium 4.3 4.0 Chloride 104 102 Carbon Dioxide 24 23 Anion Gap 6.0 7.0 BUN 36 H 28 H Creatinine 1.83 H D 1.52 H D Glucose 99 134 H Microbiology 12/10/18 06:08 Urine,Straight Cath Urine Culture - Final Escherichia coli Enterococcus faecalis (1) Abdominal pain Abdominal location: generalized Qualified Code(s): R10.84 - Generalized abdominal pain (2) Nausea & vomiting Vomiting Intractability: non-intractable Vomiting type: unspecified Qualified Code(s): R11.2 - Nausea with vomiting, unspecified (3) UTI (urinary tract infection) Hematuria presence: with hematuria Urinary tract infection type: acute cystitis Qualified Code(s): N30.01 - Acute cystitis with hematuria
[2018-12-15] MEDS: ONDANSETRON INJ 2 MG/ML 2 ML VIAL IV PRN (03:39)
[2018-12-15] MEDS: NIFEdipine EXTENDED REL 30 MG TABCR PO SCH (06:14)
[2018-12-15 07:05] LABS: Hematocrit (blood only) 27.2 % (37-47); Hemoglobin 9.3 g/dL (12.0-16.0); Mean Corpuscular Hgb Conc 34.2 g/dL (32-36); Mean Platelet Volume 10.5 fL (7.4-10.4); Platelet Count 148 K/uL (130-400); RDW Coefficient of Variation 13.3 % (11.5-14.5); RDW Standard Deviation 48.5 fL (36.4-46.3); Red Blood Count 2.72 M/uL (4.2-5.4)
[2018-12-15 07:29] LABS: BUN Creatinine Ratio 17.2 (10-20); Creatinine Clr Calc Pharmacy 18.9 ml/min; Est GFR (African American) 32.8; Est GFR (Non-African American) 28.3
[2018-12-15] MEDS: INSULIN ASPART 100 UNITS/ML 3 ML PEN SC SCH ×4 (08:06→20:31)
[2018-12-15] MEDS: cefTRIAXone SODIUM 1,000 MG in DEXTROSE 5% 50 ML IV SCH (08:12)
[2018-12-15] MEDS: HEPARIN SOD 5,000 UNIT/0.5 ML VIAL SQ SCH ×2 (08:13→20:42)
[2018-12-15] MEDS: LACTULOSE SYRUP 30 GM/45 ML UDP PO SCH ×2 (08:13→20:39)
[2018-12-15] MEDS: BISACODYL 10 MG SUPP PR SCH ×2 (08:40→20:43)
[2018-12-15] MEDS: METOPROLOL TARTRATE 25 MG TAB PO SCH ×2 (08:41→20:40)
--- NOTE | 2018-12-15 11:11 | Palliative Care Consultation ---
Date of Consultation December 15, 2018 Assessment & Plan (1) Goals of care, counseling/discussion: -88 year old female patient with PMH CKD stage IV, anxiety, aortic regurg, htn, GERD, constipation, and others, presented to the hospital with c/o abdominal pain 2/2 small bowel obstruction. Surgery was consulted, but no surgical intervention recommended. She was treated with conservative measures such as bowel rest, pain management, and fluids. Her bowels are now moving. Patient normally lives at home with her daughter, Soni. She is able to ambulate with a walker and mostly care for herself. She receives meals on wheels. Apparently during hospital stay, patient was refusing lab work, testing, and saying "I just want to ." Palliative care consulted to discuss goals of care. -Met with patient this morning in room 284. She is awake, alert and oriented x4. She did agree to have lab work this morning and states she is feeling better. Her abdominal pain has resolved and she states she is moving her bowels now. -Patient states she was only refusing to have testing done because she was an xious to get home. She states she worries about accruing a large bill when she is in the hospital and she just wanted to go home. She doesn't want to . -patient's goal is to get back home with her daughter, Soni. She would want to return to the hospital for treatment if necessary, but does want to avoid invasive or aggressive treatment. -Discussed CODE STATUS. Patient states that if her heart stops or she stops breathing, she would NOT want to be resuscitated. She will now be a DNR. -Discussed POLST form, but patient stated, "I don't have my glasses." She gave me permission to speak to her daughter, Soni, about what we talked about. -Spoke with patient's daughter, Soni, on phone. She said that her mother sometimes says the same things at home such as "I want to ." The patient has been "ready to go" since her in July 2017. Soni agrees with patient's decision to be a DNR. -We will complete a POLST form tomorrow afternoon when Soni is here, as long as patient is still in the hospital. -For now, continue with conservative medical and supportive treatment. Will follow as needed. (2) SBO (small bowel obstruction): (3) Abdominal pain: Abdominal location: generalized Qualified Code(s): R10.84 - Generalized abdominal pain History of Present Illness Reason for Consultation: Goals of care Requesting Physician: Dr. Cramer Attending Physician: Ulises Moncada MD History of Present Illness This 88 year old female patient with PMH CKD stage IV, anxiety, aortic regurg, htn, GERD, constipation, and others, presented to the hospital with c/o abdominal pain 2/2 small bowel obstruction. Surgery was consulted, but no surgical intervention recommended. She was treated with conservative measures such as bowel rest, pain management, and fluids. Her bowels are now moving. Patient normally lives at home with her daughter, Soni. She is able to ambulate with a walker and mostly care for herself. She receives meals on wheels. Apparently during hospital stay, patient was refusing lab work, testing, and saying "I just want to ." Palliative care consulted to discuss goals of care. Thank you kindly for this consult Allergies Allergy/AdvReac Type Severity Reaction Status Date / Time Penicillins Allergy Intermediate HIVES Verified 12/10/18 05:13 iron AdvReac Mild n&v, abd Verified 12/10/18 05:13 pain Venofer AdvReac Mild n&v, abd Verified 02/28/18 08:54 pain Home Medications Home Medications Medication Instructions Recorded Confirmed Type aspirin 81 mg PO DAILY 08/16/18 12/10/18 History bumetanide 0.5 mg PO QAM 08/16/18 12/10/18 History citalopram 5 mg PO DAILY 08/16/18 12/10/18 History epoetin lalita [Procrit] 10,000 unit SUBCUT Q14D 08/16/18 12/10/18 History levothyroxine 88 mcg PO DAILY 08/16/18 12/10/18 History lorazepam 1 mg PO Q8H PRN 08/16/18 12/10/18 History metoprolol tartrate 12.5 mg PO BID 08/16/18 12/10/18 History nifedipine 30 mg PO DAILY 08/16/18 12/10/18 History pantoprazole 40 mg PO DAILY 08/16/18 12/10/18 History ranitidine HCl 150 mg PO QAM 08/16/18 12/10/18 History sodium chloride 1 g PO DAILY 08/16/18 12/10/18 History Shingrex 50 mcg INJ DIRECTED 12/10/18 12/10/18 History acetaminophen 650 mg PO Q8H PRN 12/10/18 12/10/18 History atorvastatin 10 mg PO DAILY 12/10/18 12/10/18 History cholecalciferol (vitamin D3) 1,000 unit PO DAILY 12/10/18 12/10/18 History docusate sodium 100 mg PO BID 12/10/18 12/10/18 History magnesium oxide 400 mg PO DAILY 12/10/18 12/10/18 History nut.tx.imp.renal fxn,lac-reduc 1 can PO BID 12/10/18 12/10/18 History [Nepro Carb Steady] polyethylene glycol 3350 [Miralax] 17 g PO DAILY PRN 12/10/18 12/10/18 History triamcinolone acetonide 1 applic TOPICAL BID 12/10/18 12/10/18 History cefuroxime axetil 250 mg PO BID 5 Days #10 tab 12/13/18 Rx Patient History Medical History Hypothyroidism (Chronic) CKD (chronic kidney disease), stage IV (Chronic) HTN (hypertension) (Chronic) Anxiety (Chronic) HLD (hyperlipidemia) (Chronic) SIADH (syndrome of inappropriate ADH production) (Chronic) H/O echocardiogram (Chronic) "03/2015 - EF 60-65%, moderate to severe aortic regurgitation" GERD (gastroesophageal reflux disease) (Chronic) Anemia (Acute) Chest pain Closed head injury (Acute) Constipation (Acute) Dizziness Fall (Acute) FRANCES (generalized anxiety disorder) (Chronic) Major depressive disorder, recurrent, moderate (Chronic) Suprapubic pain (Acute) Symptoms involving urinary system (Acute) UTI (urinary tract infection) (Acute) Surgical History Hx of appendectomy (Chronic) Hx of cholecystectomy (Chronic) Hx of dilation and curettage (Chronic) Status post total hip replacement, left (Chronic) Family History Other Hypertension Social History Preferred Language: Beninese Communication Ability: Effective Waterproofer Required: No Beliefs That Will Affect Care: None marital status: / Current Living Situation: Family Current Living Situation Comment: lives with daughter current occupational status: retired Other Information That Helps Us Care for You: No Feels Safe at Home: Yes Safety Concerns: Feels Safe At This Time Smoking Status: Never smoker Do You Dip or Chew Tobacco: No Second Hand Exposure: No Tobacco Cessation Education Requested by Patient: No Hx Alcohol Use: No Hx Substance Use: Yes substance use type: prescription drug Substance Use Type Other:: lorazepam Review of Systems Constitutional: + weakness Ear, Nose, Mouth, Throat: no dysphagia Respiratory: no cough and no dyspnea Cardiovascular: no chest pain Gastrointestinal: no abdominal pain and no constipation Neurologic: no confusion Psychiatric: no anxiety Physical Exam Constitutional: + frail appearing; no acute distress ENMT: external ear and nose normal, oropharynx normal Neck: normal visual inspection Respiratory: normal respiratory effort, lungs clear to auscultation Auscultation: + diminished lung sounds Cardiovascular: RRR, no murmur, no edema Gastrointestinal (Abdomen): Inspection/Auscultation: abdomen normal to inspection Percussion/Palpation: + abdomen tender (still mildly tender) and abdomen soft Neurologic: moves all extremities and awake; not confused Psychiatric: A+Ox3, euthymic affect Results & Data Vital Signs (Past 12 Hours) Vital Signs Temp Pulse Resp BP BP Pulse Ox 12/15/18 08:40 89 135/78 95 12/15/18 07:58 37.5 C 88 20 109/50 L 97 12/15/18 04:23 37.3 C 140/67 12/15/18 03:30 37.6 C H 93 H 18 166/91 H 97 12/14/18 23:45 140/56 L 12/14/18 23:20 37 C 91 H 18 177/65 H 97 Time Spent Midlevel 70 minutes with >50% of time spent at bedside with patient and on phone with daughter discussing GOC and CODE STATUS.
--- NOTE | 2018-12-15 11:48 | Surgery Progress Note ---
Date of Service December 15, 2018 Assessment & Plan (1) Abdominal pain: 88 year-old female with partial small bowel obstruction due to either inflammatory or obstructive etiology. - Vitals stable, afebrile, no leukocytosis - + bowel function - abdomen soft, mildly tender in RUQ and RLQ - patient refusing treatment at times, does not want any surgical intervention even if conservative treatment fails. palliative care consult pending. There is no acute surgical indication required at this time. She is having bowel function however she is receiving stimulation with suppositories and lactulose. Patient does not want any surgical intervention even if she does not improve with conservative measures. Could consider small bowel follow through if tolerates clear liquids to rule out obstructive mass however unsure if patient would agree as she has refused abdominal xrays. No further episodes of vomiting. Could trial full liquids and see how she tolerates. Would also recommend boost/breeze supplementation. Await palliative care consult and recommendations. Continue current medical management As patient wants no surgical intervention, our services signing off at this time. Please call with any acute changes, questions, or concerns. Dr. Mustafa was present during my examination and agrees with above. Subjective limited ROS since patient very vague with questions - no nausea or vomiting - has not passed gas but had liquid bowel movement this morning, gave another suppository, having loose stools. - no abdominal pain right now Physical Exam Constitutional: WD/WN, vitals as above no acute distress and not ill appearing elderly female Respiratory: normal respiratory effort; no respiratory distress Gastrointestinal (Abdomen): Inspection/Auscultation: abdomen normal to inspection and normal bowel sounds; abdomen not distended Percussion/Palpation: + abdomen tender (RUQ and RLQ) and abdomen soft; no guarding and abdomen not rigid Skin: no rashes, warm and dry Psychiatric: A+Ox3, euthymic affect Results & Data Vital Signs (Past 12 Hours) Vital Signs Temp Pulse Resp BP BP Pulse Ox 12/15/18 11:12 36.9 C 84 16 163/67 H 95 12/15/18 08:40 89 135/78 95 12/15/18 07:58 37.5 C 88 20 109/50 L 97 12/15/18 04:23 37.3 C 140/67 12/15/18 03:30 37.6 C H 93 H 18 166/91 H 97 12/14/18 23:45 140/56 L (1) Abdominal pain Abdominal location: generalized Qualified Code(s): R10.84 - Generalized abdominal pain
[2018-12-15] MEDS: SODIUM CHLORIDE 0.9% 1000ML 1,000 ML IV SCH (16:16)
--- NOTE | 2018-12-15 17:41 | Hospitalist Progress Note ---
Date of Service December 15, 2018 Assessment & Plan (1) SBO (small bowel obstruction): SBO CT ABD:Findings compatible with ongoing small bowel obstruction with degree of small bowel distention stable to slightly improved from 12/10/2018. No pneumatosis or pneumoperitoneum. Interval development of small bilateral pleural effusions with bibasilar consolidative opacities. Mild generalized body wall edema with trace abdominopelvic ascites. Colonic diverticulosis without acute diverticulitis. --No acute surgical indication required at this time as per Surgery --Prefers no Surgical intervention even if conservative measures fail --Surgery and Palliative care on board --Clear liquid diet, advance as tolerated --IV fluids --continue bowel regimen UTI: Urine Culture: E.coli, Enterococcus Fecalis Receiving Ceftriaxone Will add Daptomycin CKD IV Cr at baseline Monitor renal function Hypoxia: small bilateral pleural effusions with bibasilar consolidative opacities on Imaging Titrate off oxygen as able Continue Abx Anemia of Chronic disease No acute bleeding issues Monitor Hb Hypothyroidism: Resume Levothyroxine GERD Resume PPI DVT Px: Heparin SQ Disposition: Palliative Consulted to identify goals of care Subjective Patient is seen and examined at bedside Reports generalized abdominal soreness Denies nausea, vomiting Had Liquid BM today Denies Chest pain, SOB Prefers no surgical intervention if needed Review of Systems Review of Systems: All systems reviewed & are unremarkable except as noted in HPI & below Physical Exam Physical Exam: Physical Exam: Vitals signs as noted above General Appearance:Moderately built and nourished, no apparent distress Head: normocephalic, Atraumatic Eyes: normal inspection, EOMI Neck: supple, Trachea midline Respiratory/Chest: Normal breath sounds, CTA Cardiovascular: S1, S2, No murmur Abdomen/GI:Soft, mild generalized tender, Bowel sounds decreased Extremities/Musculoskelatal:normal inspection, no edema Neurologic/Psych:AAOX3, grossly no focal neurological deficits Skin: normal color, warm Results & Data Vital Signs (Past 12 Hours) Vital Signs Temp Pulse Resp BP Pulse Ox 12/15/18 15:15 37 C 81 19 144/54 H 94 12/15/18 11:12 36.9 C 84 16 163/67 H 95 12/15/18 08:40 89 135/78 95 12/15/18 07:58 37.5 C 88 20 109/50 L 97 Laboratory Results Short CBC 12/15/18 Range/Units 06:45 WBC 5.50 (4.8-10.8) K/uL Hgb 9.3 L (12.0-16.0) g/dL Hct 27.2 L (37-47) % Plt Count 148 (130-400) K/uL BMP 12/15/18 12/15/18 06:45 07:43 Sodium 131 L Potassium 4.2 Chloride 104 Carbon Dioxide 22 BUN 28 H Creatinine 1.61 H Glucose 103 H Calcium 8.0 L
[2018-12-15] MEDS: DAPTOmycin 225 MG in SYRINGE 0 ML IV SCH (18:37)
[2018-12-15] MEDS ORDERED: EPOETIN ALFA 10,000 UNITS/ML VIAL SQ ONE (21:00)
[2018-12-15] MEDS: MoRPHine SULFATE 2 MG/ML CARP IV PRN (23:26)
[2018-12-16] MEDS: NIFEdipine EXTENDED REL 30 MG TABCR PO SCH (06:29)
[2018-12-16] MEDS: LEVOTHYROXINE SODIUM 88 MCG TABLET PO SCH (06:29)
[2018-12-16 07:40] LABS: Hematocrit (blood only) 27.9 % (37-47); Hemoglobin 9.4 g/dL (12.0-16.0)
[2018-12-16 07:59] LABS: Creatinine Clr Calc Pharmacy 21.6 ml/min; Est GFR (African American) 36.3; Est GFR (Non-African American) 31.3
[2018-12-16] MEDS ORDERED: POLYETHYLENE (MIRALAX) 17 GM PACK PO PRN (08:18)
[2018-12-16] MEDS: METOPROLOL TARTRATE 25 MG TAB PO SCH ×2 (09:17→19:56)
[2018-12-16] MEDS: PANTOprazole 40 MG TAB PO SCH (09:17)
[2018-12-16] MEDS: HEPARIN SOD 5,000 UNIT/0.5 ML VIAL SQ SCH ×2 (09:17→19:56)
[2018-12-16] MEDS: CITALOPRAM 20 MG TAB PO SCH (09:18)
[2018-12-16] MEDS: INSULIN ASPART 100 UNITS/ML 3 ML PEN SC SCH ×4 (09:19→20:06)
[2018-12-16] MEDS: ASPIRIN 81 MG ECTAB PO SCH (09:25)
[2018-12-16] MEDS: SODIUM CHLORIDE 0.9% 1000ML 1,000 ML IV SCH (12:00)
--- NOTE | 2018-12-16 14:55 | Hospitalist Progress Note ---
Date of Service December 16, 2018 Assessment & Plan (1) SBO (small bowel obstruction): SBO CT ABD:Findings compatible with ongoing small bowel obstruction with degree of small bowel distention stable to slightly improved from 12/10/2018. No pneumatosis or pneumoperitoneum. Interval development of small bilateral pleural effusions with bibasilar consolidative opacities. Mild generalized body wall edema with trace abdominopelvic ascites. Colonic diverticulosis without acute diverticulitis. --No acute surgical indication required at this time as per Surgery --Prefers no Surgical intervention even if conservative measures fail --Surgery and Palliative care on board --Advance diet as tolerated --Decrease IV fluids --continue bowel regimen --Repeat KUB in AM UTI: Urine Culture: E.coli, Enterococcus Fecalis Receiving Ceftriaxone Daptomycin #2 CKD IV Cr at baseline Monitor renal function Hypoxia: small bilateral pleural effusions with bibasilar consolidative opacities on Imaging Titrate off oxygen as able Continue Abx Anemia of Chronic disease No acute bleeding issues Monitor Hb Hypothyroidism: Continue Levothyroxine GERD Resume PPI DVT Px: Heparin SQ Disposition: Palliative Consulted to identify goals of care Subjective Patient is seen and examined at bedside Has loose BMs due to suppositories Less abdominal pain Tolerated liquid diet today morning Denies nausea, vomiting Denies Chest pain, SOB Prefers no surgical intervention if needed Review of Systems Review of Systems: All systems reviewed & are unremarkable except as noted in HPI & below Physical Exam Physical Exam: Physical Exam: Vitals signs as noted above General Appearance:Moderately built and nourished, no apparent distress Head: normocephalic, Atraumatic Eyes: normal inspection, EOMI Neck: supple, Trachea midline Respiratory/Chest: Normal breath sounds, CTA Cardiovascular: S1, S2, No murmur Abdomen/GI:Soft, non tender, Bowel sounds present Extremities/Musculoskelatal:normal inspection, no edema Neurologic/Psych:AAOX3, grossly no focal neurological deficits Skin: normal color, warm Results & Data Vital Signs (Past 12 Hours) Vital Signs Temp Pulse Resp BP Pulse Ox 12/16/18 11:35 36.5 C 81 18 126/48 L 96 12/16/18 09:15 88 134/70 93 12/16/18 07:30 37.1 C 84 18 138/63 92 12/16/18 04:20 37.2 C 64 18 153/71 H 93 Laboratory Results Short CBC 12/16/18 Range/Units 07:04 Hgb 9.4 L (12.0-16.0) g/dL Hct 27.9 L (37-47) % BMP 12/16/18 07:04 Creatinine 1.48 H
--- NOTE | 2018-12-16 16:13 | Palliative Care Progress Note ---
Date of Service December 16, 2018 Assessment & Plan (1) Goals of care, counseling/discussion: -Discussed CODE STATUS on 12/15. Patient states that if her heart stops or she stops breathing, she would NOT want to be resuscitated. She will now be a DNR. -Went to patient's room this afternoon to meet with her and her daughter to do POLST form, but her daughter wasn't there at our pre-arranged time. I left the POLST form in the room and encouraged patient to follow with her PCP if she wanted to completed the POLST. It really is for her protection if she doesn't want CPR, intubation, etc. Patient did not want to complete it without her daughter. -Plan is for patient to return home where she lives with her daughter. I will follow during hospitalization. (2) SBO (small bowel obstruction): (3) Abdominal pain: Subjective Patient feeling well today. walked with PT. No pain, moving bowels. Review of Systems Review of Systems: + weakness no dysphagia no cough and no dyspnea no chest pain no abdominal pain and no constipation no confusion no anxiety Physical Exam Constitutional: + frail appearing; no acute distress ENMT: external ear and nose normal, oropharynx normal Neck: normal visual inspection Respiratory: normal respiratory effort, lungs clear to auscultation Auscultation: + diminished lung sounds Cardiovascular: RRR, no murmur, no edema Gastrointestinal (Abdomen): Inspection/Auscultation: abdomen normal to inspection Percussion/Palpation: + abdomen tender (still mildly tender) and abdomen soft Neurologic: moves all extremities and awake; not confused Psychiatric: A+Ox3, euthymic affect Results & Data Vital Signs (Past 12 Hours) Vital Signs Temp Pulse Resp BP Pulse Ox 12/16/18 14:55 36.3 C L 77 20 121/61 97 12/16/18 11:35 36.5 C 81 18 126/48 L 96 12/16/18 09:15 88 134/70 93 12/16/18 07:30 37.1 C 84 18 138/63 92 12/16/18 04:20 37.2 C 64 18 153/71 H 93 Time Spent Midlevel 25 minutes with >50% of time spent at bedside with patient discussing GOC and POLST form. (1) Abdominal pain Abdominal location: generalized Qualified Code(s): R10.84 - Generalized abdominal pain
[2018-12-17] MEDS: LORazepam 0.5 MG/1 ML VIAL IV PRN (01:44)
[2018-12-17] MEDS: LEVOTHYROXINE SODIUM 88 MCG TABLET PO SCH (06:27)
[2018-12-17] MEDS: NIFEdipine EXTENDED REL 30 MG TABCR PO SCH (06:28)
[2018-12-17] MEDS: INSULIN ASPART 100 UNITS/ML 3 ML PEN SC SCH ×2 (07:53→11:55)
[2018-12-17] MEDS: SODIUM CHLORIDE 0.9% 1000ML 1,000 ML IV SCH (07:53)
[2018-12-17] MEDS: ASPIRIN 81 MG ECTAB PO SCH (07:53)
[2018-12-17] MEDS: METOPROLOL TARTRATE 25 MG TAB PO SCH (07:54)
[2018-12-17] MEDS: CITALOPRAM 20 MG TAB PO SCH (07:54)
[2018-12-17] MEDS: HEPARIN SOD 5,000 UNIT/0.5 ML VIAL SQ SCH (07:55)
[2018-12-17] MEDS: PANTOprazole 40 MG TAB PO SCH (07:55)
--- NOTE | 2018-12-17 08:13 | XRay Report ---
KUB CLINICAL HISTORY: Small bowel obstruction. COMPARISON STUDY: KUB December 12, 2018. CT of the abdomen and pelvis December 13, 2018. FINDINGS: Mild small bowel dilatation has slightly improved. There is gas within portions of the colo n and rectum. A left hip arthroplasty is noted. Small bilateral pleural effusions are incidentally no yusuf. Sensitivity for detection of free air is diminished on this supine exam but there is no evidence for free air on this study. IMPRESSION: Findings suggestive of a persistent but improving small bowel obstruction. Electronically signed by: Hayder Barber M.D. 12/17/2018 8:12 AM
[2018-12-17] MEDS ORDERED: DOCUSATE SODIUM 100 MG CAP PO SCH (09:00)
--- NOTE | 2018-12-17 11:54 | Hospitalist Progress Note ---
Date of Service December 17, 2018 Assessment & Plan (1) SBO (small bowel obstruction): SBO CT ABD:Findings compatible with ongoing small bowel obstruction with degree of small bowel distention stable to slightly improved from 12/10/2018. No pneumatosis or pneumoperitoneum. Interval development of small bilateral pleural effusions with bibasilar consolidative opacities. Mild generalized body wall edema with trace abdominopelvic ascites. Colonic diverticulosis without acute diverticulitis. --No acute surgical indication required at this time as per Surgery --Prefers no Surgical intervention even if conservative measures fail --Surgery and Palliative care on board --Tolerating low fiber diet --DC IV fluids --continue bowel regimen --Repeat KUB:Improving SBO --Discussed with Surgery today--Needs FU as outpatient UTI: Urine Culture: E.coli, Enterococcus Fecalis Receiving Ceftriaxone To complete Daptomycin course today CKD IV Cr at baseline Monitor renal function Hypoxia: small bilateral pleural effusions with bibasilar consolidative opacities on Imaging Weaned off oxygen Received Abx Anemia of Chronic disease No acute bleeding issues Monitor Hb Hypothyroidism: Continue Levothyroxine GERD Resume PPI DVT Px: Heparin SQ Disposition: Palliative Consulted to identify goals of care Plan to discharge home with Home Health today Subjective Patient is seen and examined at bedside Had +BM Denies abdominal pain, nausea, vomiting Tolerating low fiber diet KUB today: improving SBO Also denies Chest pain, SOB Discussed with surgery and patient's daughter today Plan to discharge home today Review of Systems Review of Systems: All systems reviewed & are unremarkable except as noted in HPI & below Physical Exam Physical Exam: Physical Exam: Vitals signs as noted above General Appearance:Moderately built and nourished, no apparent distress Head: normocephalic, Atraumatic Eyes: normal inspection, EOMI Neck: supple, Trachea midline Respiratory/Chest: Normal breath sounds, CTA Cardiovascular: S1, S2, No murmur Abdomen/GI:Soft, non tender, Bowel sounds present Extremities/Musculoskelatal:normal inspection, no edema Neurologic/Psych:AAOX3, grossly no focal neurological deficits Skin: normal color, warm Results & Data Vital Signs (Past 12 Hours) Vital Signs Temp Pulse Pulse Pulse Resp BP Pulse Ox 12/17/18 11:27 37.0 C 73 18 121/61 93 12/17/18 10:13 94 12/17/18 07:53 37.1 C 87 18 137/65 97 12/17/18 07:01 75 12/17/18 06:26 88 143/57 H 12/17/18 03:23 37.0 C 77 22 104/67 94
--- NOTE | 2018-12-17 12:02 | Discharge Summary ---
Date of Service December 17, 2018 Admission HPI Per Admitting Provider 88-year-old female with a past medical history of hypertension, anxiety, osteoporosis, CKD 3, hypothyroidism, hyperlipidemia, GERD, anemia of chronic disease and constipation presents complaining of 3 days of nausea vomiting and abdominal pain. She also notes that she had diarrhea for the last 3 days, it was not getting any better so she came to the emergency room. She denies fevers, chills, chest pain. She did not notice any blood in her urine or in her stool she had a recent UA which showed pansensitive E. coli. General surgery has been consulted. She had 2 large BMs on 12/12 and 12/13. Started clears 12/13 and ADAT, DC later today 12/13 if tolerates diet-ADAT to Regular. Admission Exam Per Admitting Provider Physical Exam Gen-AAO x 3, NAD, Afebrile, pleasant Head-NCAT, EOMI, PERRLA, Anicteric Sclera, No Posterior Pharyngeal Erythema Neck-Supple, No JVD, No Thyromegaly, No Masses, No LAD, No Bruits Lungs-Clear to Auscultation Bilaterally, No Rales, No Rhonchi, No Wheezing, No Crepitus Chest-No S4, +S1, +S2, No S3, No Murmurs, No Rubs, No Gallops, No Ectopy Abdomen-Soft, Bowel Sounds Present, Mildly tender, Non Distended, No Hepato megaly, No Splenomegaly, No Palpable Masses, No Rebound, No Rigidity, No Guarding Musculoskeletal-Full Range of Motion Bilaterally, No CVAT Extremities-No Cyanosis, No Clubbing, No Edema Nuero-Cranial Nerves II-XII grossly intact, Motor WNL, DTRs WNL, Strength WNL, No Focal Psych-Normal Mood Principal Diagnosis Discharge Information Discharge Diagnosis (1) SBO (small bowel obstruction): (2) Abdominal pain: (3) Nausea & vomiting: (4) Diarrhea: (5) UTI (urinary tract infection): (6) Hypothyroidism: (7) Anemia, chronic disease: (8) CKD (chronic kidney disease), stage IV: (9) GERD (gastroesophageal reflux disease): (10) HTN (hypertension): (11) Anxiety: (12) HLD (hyperlipidemia): Discharge Goals Improve function,Decrease discomfort Discharge Activity Limitations Resume your previous activity Discharge Data Allergies Allergy/AdvReac Type Severity Reaction Status Date / Time Penicillins Allergy Intermediate HIVES Verified 12/10/18 05:13 iron AdvReac Mild n&v, abd Verified 12/10/18 05:13 pain Venofer AdvReac Mild n&v, abd Verified 02/28/18 08:54 pain Consultations 12/10/18 07:50 Consult General Surgery Stat 12/14/18 11:55 Consult Palliative Care Routine Procedures Performed CT ABD: 1. Findings consistent with distal small bowel obstructive change. Trace perihepatic ascites 2. Etiology is uncertain, although there appears to be a length of terminal ileum demonstrating moderate wall thickening and luminal narrowing. 3. Relatively collapsed colon. 4. Dilatation of the a sending thoracic aorta at 4.[address] ABD: 1. Findings compatible with ongoing small bowel obstruction with degree of small bowel distention stable to slightly improved from 12/10/2018. 2. No pneumatosis or pneumoperitoneum. 3. Interval development of small bilateral pleural effusions with bibasilar consolidative opacities. 4. Mild generalized body wall edema with trace abdominopelvic ascites. 5. Colonic diverticulosis without acute diverticulitis. 6. Additional findings as above. Ordered Studies 12/10/18 06:27 CT abd pelvis wo con Stat 12/13/18 20:29 CT abd pelvis wo con Urgent Hospital Course (1) SBO (small bowel obstruction): SBO CT ABD:Findings compatible with ongoing small bowel obstruction with degree of small bowel distention stable to slightly improved from 12/10/2018. No pneumatosis or pneumoperitoneum. Interval development of small bilateral pleural effusions with bibasilar consolidative opacities. Mild generalized body wall edema with trace abdominopelvic ascites. Colonic diverticulosis without acute diverticulitis. --No acute surgical indication required at this time as per Surgery --Prefers no Surgical intervention even if conservative measures fail --Surgery and Palliative care on board --Tolerating low fiber diet --DC IV fluids --continue bowel regimen --Repeat KUB:Improving SBO --Discussed with Surgery today--Needs FU as outpatient UTI: Urine Culture: E.coli, Enterococcus Fecalis Receiving Ceftriaxone To complete Daptomycin course today CKD IV Cr at baseline Monitor renal function Hypoxia: small bilateral pleural effusions with bibasilar consolidative opacities on Imaging Weaned off oxygen Received Abx Anemia of Chronic disease No acute bleeding issues Monitor Hb Hypothyroidism: Continue Levothyroxine GERD Resume PPI DVT Px: Heparin SQ Disposition: Palliative Consulted to identify goals of care Plan to discharge home with Home Health today Total Time Total Time Spent Total Time Spent (In Minutes): 41 minutes Total Time Includes: Examination of the Patient, Discharge Planning, Medication Reconciliation, Communication With Other Providers and Other Discharge Plan Discharge Items Patient Disposition: Home - Home Health Services Reason For Visit: SBO, UTI Discharge Diagnosis: (1) SBO (small bowel obstruction): (2) Abdominal pain: (3) Nausea & vomiting: (4) Diarrhea: (5) UTI (urinary tract infection): (6) Hypothyroidism: (7) Anemia, chronic disease: (8) CKD (chronic kidney disease), stage IV: (9) GERD (gastroesophageal reflux disease): (10) HTN (hypertension): (11) Anxiety: (12) HLD (hyperlipidemia): Condition: Good Discharge Goals: Decrease discomfort and Improve function Activity: Resume your previous activity Lifting: Gradually increase as tolerated Bathing: No limitations Exercise/Sports: Gradually increase as tolerated Non-emergency contact: Primary Care Provider and Surgeon Call non-emergency contact if: you have any medication questions, your symptoms worsen, your pain is not controlled, your pain is worsening, your pain is unusual for you, your pain is concerning for you and you have a fever Follow-up/Referrals: Yogesh Quevedo MD [Primary Care Provider] - 12/17/18 10:45 am Diet: Heart Healthy and Low Fiber Addtl Provider Instructions: Follow-up with your primary care physician Dr. Quevedo on December 21, 2018 at 10:45 AM Follow-up with your surgeon Dr. Mustafa on December 28, 2018 at 2:30 PM Seek immediate medical attention if your symptoms reoccur or worsen Prescriptions: Continued nifedipine 30 mg tablet extended release 24hr 30 mg PO DAILY RF: 0 citalopram 10 mg tablet 5 mg PO DAILY RF: 0 sodium chloride 1 gram tablet 1 g PO DAILY RF: 0 aspirin 81 mg Tablet,Delayed Release (Dr/Ec) 81 mg PO DAILY RF: 0 levothyroxine 88 mcg tablet 88 mcg PO DAILY RF: 0 lorazepam 0.5 mg tablet 1 mg PO Q8H PRN (Reason: Anxiety) RF: 0 pantoprazole 40 mg tablet,delayed release (DR/EC) 40 mg PO DAILY RF: 0 ranitidine HCl 150 mg tablet 150 mg PO QAM RF: 0 bumetanide 1 mg tablet 0.5 mg PO QAM RF: 0 Procrit 10,000 unit/mL Solution 10,000 unit subcut Q14D RF: 0 metoprolol tartrate 25 mg tablet 12.5 mg PO BID RF: 0 acetaminophen 650 mg Tablet Extended Release 650 mg PO Q8H PRN (Reason: pain/fever) RF: 0 atorvastatin 10 mg Tablet 10 mg PO DAILY RF: 0 cholecalciferol (vitamin D3) 1,000 unit Capsule 1,000 unit PO DAILY RF: 0 docusate sodium 100 mg Capsule 100 mg PO BID RF: 0 magnesium oxide 400 mg magnesium Tablet 400 mg PO DAILY RF: 0 Nepro Carb Steady 0.08 gram-1.8 kcal/mL Liquid 1 can PO BID RF: 0 polyethylene glycol 3350 [Miralax] 17 gram/dose Powder 17 g PO DAILY PRN (Reason: Constipation) RF: 0 triamcinolone acetonide 0.1 % Cream 1 applic TOPICAL BID RF: 0 Shingrex 50 mcg INJ DIRECTED RF: 0 Stand-Alone Forms: [facility]/Other Patient Handouts: Diet Low Residue Discharge Orders: Discharge Order (Routine); Ordered 12/17/18 Ordered By: Ulises Moncada Admission Data Admit Date/Time: 12/10/18 09:14 Attending Provider: Ulises Moncada Admit Provider: Ramez Cramer Primary Care Provider: Yogesh Quevedo Other Providers: Taryn Solomon ; Magalys Suárez ; Ramez Cramer Service: Telemetry Medical Other Interventions: Discharge Summary Assessment (RN) Last Done: 12/17/18 13:21 Pending Studies at Discharge: No DC Date/Time DO NOT enter until pt leaves facility: 12/17/18 16:18
[2018-12-17] MEDS: DAPTOmycin 225 MG in SYRINGE 0 ML IV SCH (12:44)
== END 2018-12-17 16:18 | disposition home health service (06) | DRG 389 ==
LOC: ED 04:50 → 3N 09:14 → SUATTDRO 09:14 → 3N 10:03 → 2N 12-13 20:26

== ENCOUNTER 2018-12-21 17:51 | Inpatient (IN) ==
[2018-12-21] MEDS ORDERED: LORazepam 1 MG TAB SL STA ×2 (18:13→19:50)
[2018-12-21] MEDS ORDERED: ALBUT/IPRATROP 3MG/0.5MG NEB 3 ML VIAL NEB STA (18:13)
--- NOTE | 2018-12-21 18:39 | XRay Report ---
XR chest 1V portable CLINICAL HISTORY: Dyspnea COMPARISON STUDY: 10/28/2018 FINDINGS: Cardiomegaly. Small left pleural effusion. Findings of congestive heart failure. IMPRESSION: Congestive heart failure. Small left pleural effusion. The above report was generated using voice recognition software. It may contain grammatical, syntax or spelling errors. Electronically signed by: Rob Mike M.D. 12/21/2018 6:37 PM
[2018-12-21 19:01] LABS: Basophils # (auto) 0.01 K/uL (0-0.2); Basophils % (auto) 0.1 %; Eosinophils # (auto) 0.09 K/uL (0-0.5); Hemoglobin 8.9 g/dL (12.0-16.0); Immature Granulocytes # (auto) 0.05 K/uL (0.00-0.02); Immature Granulocytes % (auto) 0.6 %; Lymphocytes # (auto) 1.18 K/uL (1.2-3.4); Lymphocytes % (auto) 13.2 %; Mean Corpuscular Hgb Conc 34.2 g/dL (32-36); Mean Corpuscular Volume 98.5 fL (80-100); Mean Platelet Volume 9.7 fL (7.4-10.4); Monocytes # (auto) 0.49 K/uL (0.11-0.59); Monocytes % (auto) 5.5 %; Neutrophils # (auto) 7.14 K/uL (1.4-6.5); Neutrophils % (auto) 79.6 %; Platelet Count 243 K/uL (130-400); RDW Coefficient of Variation 13.9 % (11.5-14.5); RDW Standard Deviation 49.2 fL (36.4-46.3); Red Blood Count 2.64 M/uL (4.2-5.4); White Blood Count 8.96 K/uL (4.8-10.8)
[2018-12-21 19:11] LABS: Base Excess VBG -2.3 mEq/L; HCO3 VBG 23 mmol/L; PCO2 VBG 39 mmHg (38-50); PO2 VBG 30 mmHg; pH VBG 7.38 (7.36-7.41)
[2018-12-21 19:12] LABS: Oxygen Saturation VBG < 60.0 %
[2018-12-21 19:18] LABS: INR 1.1 (0.9-1.1); Partial Thromboplastin Ratio 0.9; Partial Thromboplastin Time 25.6 Seconds (21.0-31.0); Prothrombin Time 11.1 Seconds (9.0-12.0)
[2018-12-21 19:22] LABS: Alanine Aminotransferase 27 U/L (12-78); Aspartate Aminotransferase 28 U/L (15-37); BUN Creatinine Ratio 9.8 (10-20); Blood Urea Nitrogen 16 mg/dl (7-18); Calcium 8.1 mg/dl (8.5-10.1); Carbon Dioxide 24 mmol/L (21-32); Chloride 103 mmol/L (98-107); Creatinine Clr Calc Pharmacy 15.8 ml/min; Est GFR (African American) 33.3; Est GFR (Non-African American) 28.7; Glucose 127 mg/dl (70-99); Magnesium 1.6 mg/dl (1.8-2.4); Potassium 3.4 mmol/L (3.5-5.1); Sodium 136 mmol/L (136-145)
[2018-12-21 19:30] LABS: Albumin Globulin Ratio 0.8 (0.9-2); Alkaline Phosphatase 79 U/L (45-117); Bilirubin,Total 0.4 mg/dl (0.2-1); Globulin 3.6 gm/dl (2.5-4.0); NT Pro B Type Natriuretic Pept > 35000 pg/ml (0-1800); Total Protein 6.6 gm/dl (6.4-8.2); Troponin I 0.135 ng/ml (0-0.045)
[2018-12-21] MEDS ORDERED: ASPIRIN CHEW 324 MG PO STA (19:34)
[2018-12-21] MEDS ORDERED: CALCIUM CARBONATE 500 MG CHEWABLE TAB PO STA (19:42)
[2018-12-21] MEDS ORDERED: MAGNESIUM OXIDE 400 MG TAB PO STA (19:42)
[2018-12-21] MEDS ORDERED: BUMETANIDE 1 MG in SYRINGE 0 ML IV SCH (19:45)
[2018-12-21] MEDS ORDERED: POTASSIUM CHLORIDE 20 MEQ TABCR PO STA (19:47)
--- NOTE | 2018-12-21 20:49 | History & Physical Report ---
Date of Service December 21, 2018 Assessment & Plan (1) CHF exacerbation: Decompensated heart failure Likely secondary to fluid retention post fluid resuscitation following recent confinement for SBO. Troponin elevation similar to above paroxysmal atrial flutter, patient NSR hypertension, elevated secondary to illness and anxiety TAA as per records COPD as per records, not in acute exacerbation CRI (baseline creatinine 1.6), creatinine at baseline chronic anemia compared to CKD, hemoglobin at baseline PCU Diuretic Rx while monitoring daily renal function Strict I/Os, daily weights, CHF education Update TTE, Cardiology consult RE decompensated heart failure Follow troponin PT OT eval DVT prophylaxis. Heparin subcu Full code Patient's daughter requesting updates from providers. Ms. Soni Domínguez, contact #[phone]. History of Present Illness Chief Complaint: Shortness of breath Primary Care Provider: Yogesh Quevedo MD History obtained from patient, family, and records. Medical history significant for chronic distant heart failure (EF 50 to 65% TTE 2017), paroxysmal atrial flutter, hypertension, TAA as per records, hyp othyroidism, COPD as per records, CRI (baseline creatinine 1.8), chronic anemia, (baseline hemoglobin 9), anxiety disorder. Recent confinement last week for SBO-resolved with conservative management. As per patient's daughter, patient noted intermittent shortness of breath more so on exertion upon arrival at home. No chest pain, no cough symptoms. Legs more swollen than usual. Patient noted to be 10 pounds heavier than usual on follow-up at PCPs office today. At the ER, patient given Lasix for CHF. Medical History as above Surgical History : Appendectomy, dental procedure, D&C, cholecystectomy, hysterectomy Family History : Heart disease, seizures, thyroid problems Personal/Social history : Non-smoker, no EtOH intake, retired [employer] Allergies Allergy/AdvReac Type Severity Reaction Status Date / Time Penicillins Allergy Intermediate HIVES Verified 12/10/18 05:13 iron AdvReac Mild n&v, abd Verified 12/10/18 05:13 pain Venofer AdvReac Mild n&v, abd Verified 02/28/18 08:54 pain Home Medications Home Medications Medication Instructions Recorded Confirmed Type Procrit 10,000 unit SUBCUT Q14D 08/16/18 12/21/18 History aspirin 81 mg PO DAILY 08/16/18 12/21/18 History bumetanide 0.5 mg PO QAM 08/16/18 12/21/18 History citalopram 5 mg PO DAILY 08/16/18 12/21/18 History levothyroxine 88 mcg PO DAILY 08/16/18 12/21/18 History lorazepam 1 mg PO Q8H PRN 08/16/18 12/21/18 History metoprolol tartrate 12.5 mg PO BID 08/16/18 12/21/18 History nifedipine 30 mg PO DAILY 08/16/18 12/21/18 History pantoprazole 40 mg PO DAILY 08/16/18 12/21/18 History ranitidine HCl 150 mg PO QAM 08/16/18 12/21/18 History sodium chloride 1 g PO DAILY 08/16/18 12/21/18 History Nepro Carb Steady 1 can PO BID 12/10/18 12/21/18 History Shingrex 50 mcg INJ DIRECTED 12/10/18 12/21/18 History acetaminophen 650 mg PO Q8H PRN 12/10/18 12/21/18 History atorvastatin 10 mg PO DAILY 12/10/18 12/21/18 History cholecalciferol (vitamin D3) 1,000 unit PO DAILY 12/10/18 12/21/18 History docusate sodium 100 mg PO BID 12/10/18 12/21/18 History magnesium oxide 400 mg PO DAILY 12/10/18 12/21/18 History polyethylene glycol 3350 [Miralax] 17 g PO DAILY PRN 12/10/18 12/21/18 History triamcinolone acetonide 1 applic TOPICAL BID 12/10/18 12/21/18 History epoetin lalita 10,000 units SUBCUT DIRECTED 12/21/18 12/21/18 History Past Med/Surg History Medical History Hypothyroidism (Chronic) CKD (chronic kidney disease), stage IV (Chronic) HTN (hypertension) (Chronic) Anxiety (Chronic) HLD (hyperlipidemia) (Chronic) SIADH (syndrome of inappropriate ADH production) (Chronic) H/O echocardiogram (Chronic) "03/2015 - EF 60-65%, moderate to severe aortic regurgitation" GERD (gastroesophageal reflux disease) (Chronic) Anemia (Acute) Chest pain Closed head injury (Acute) Constipation (Acute) Dizziness Fall (Acute) FRANCES (generalized anxiety disorder) (Chronic) Major depressive disorder, recurrent, moderate (Chronic) Suprapubic pain (Acute) Symptoms involving urinary system (Acute) UTI (urinary tract infection) (Acute) Surgical History Hx of appendectomy (Chronic) Hx of cholecystectomy (Chronic) Hx of dilation and curettage (Chronic) Status post total hip replacement, left (Chronic) Family History Other Hypertension Social History Preferred Language: Ken[place] Communication Ability: Effective Oil Fire Specialist Required: No Beliefs That Will Affect Care: None marital status: / Current Living Situation: Family Current Living Situation Comment: own home, dtr lives w/ her current occupational status: retired Other Information That Helps Us Care for You: No Feels Safe at Home: Yes Safety Concerns: Feels Safe At This Time Smoking Status: Never smoker Do You Dip or Chew Tobacco: No Second Hand Exposure: No Hx Alcohol Use: No Hx Substance Use: Yes substance use type: prescription drug Substance Use Type Other:: lorazepam (prescribed) Review of Systems Review of Systems: As per HPI, all 10 systems reviewed, all other ROS negative Physical Exam Physical Exam: GENERAL: Anxious, slightly hard of hearing , no respiratory distress, frail SKIN: Pallor, warm HEENT: Pale palpebral conjunctivae, no ptosis, dry buccal mucosa, nasal cannula in place NECK : Supple, no tenderness CHEST : Decreased breath sounds, no tenderness HEART : RRR, systolic murmur ABDOMEN: Some distention, nontender EXTREMITIES : [place] LE swelling, no tenderness (R>L), no other conspicuous deformities noted NEUROLOGIC : Coherent, no facial asymmetry, mild hearing impairment, no other gross focality Results & Data Vital Signs (Past 12 Hours) Vital Signs Temp Pulse Pulse Resp BP BP Pulse Ox 12/21/18 18:32 96 12/21/18 18:27 76 18 98 12/21/18 18:12 97 12/21/18 18:09 36.4 C L 94 H 89 18 179/55 H 164/63 H 94 Laboratory Results Laboratory Results WBC 8.96 K/uL (4.8-10.8) 12/21/18 18:39 RBC 2.64 M/uL (4.2-5.4) L 12/21/18 18:39 Hgb 8.9 g/dL (12.0-16.0) L 12/21/18 18:39 Hct 26.0 % (37-47) L 12/21/18 18:39 MCV 98.5 fL (80-100) 12/21/18 18:39 MCH 33.7 pg (25-34) 12/21/18 18:39 MCHC 34.2 g/dL (32-36) 12/21/18 18:39 RDW Std Deviation 49.2 fL (36.4-46.3) H 12/21/18 18:39 RDW Coeff of Liss 13.9 % (11.5-14.5) 12/21/18 18:39 Plt Count 243 K/uL (130-400) 12/21/18 18:39 MPV 9.7 fL (7.4-10.4) 12/21/18 18:39 Immature Gran % (Auto) 0.6 % 12/21/18 18:39 Neut % (Auto) 79.6 % 12/21/18 18:39 Lymph % (Auto) 13.2 % 12/21/18 18:39 Mills % (Auto) 5.5 % 12/21/18 18:39 Eos % (Auto) 1.0 % 12/21/18 18:39 Baso % (Auto) 0.1 % 12/21/18 18:39 Immature Gran # (Auto) 0.05 K/uL (0.00-0.02) H 12/21/18 18:39 Neut # (Auto) 7.14 K/uL (1.4-6.5) H 12/21/18 18:39 Lymph # (Auto) 1.18 K/uL (1.2-3.4) L 12/21/18 18:39 Mills # (Auto) 0.49 K/uL (0.11-0.59) 12/21/18 18:39 Eos # (Auto) 0.09 K/uL (0-0.5) 12/21/18 18:39 Baso # (Auto) 0.01 K/uL (0-0.2) 12/21/18 18:39 PT 11.1 Seconds (9.0-12.0) 12/21/18 18:39 INR 1.1 (0.9-1.1) 12/21/18 18:39 APTT 25.6 Seconds (21.0-31.0) 12/21/18 18:39 PTT Ratio 0.9 12/21/18 18:39 VBG pH 7.38 (7.36-7.41) 12/21/18 18:45 VBG pCO2 39 mmHg (38-50) 12/21/18 18:45 VBG pO2 30 mmHg 12/21/18 18:45 VBG HCO3 23 mmol/L 12/21/18 18:45 VBG O2 Saturation < 60.0 % 12/21/18 18:45 VBG Base Excess -2.3 mEq/L 12/21/18 18:45 Barometric Pressure 729.0 mm/Hg 12/21/18 18:45 Sodium 136 mmol/L (136-145) 12/21/18 18:39 Potassium 3.4 mmol/L (3.5-5.1) L 12/21/18 18:39 Chloride 103 mmol/L (98-107) 12/21/18 18:39 Carbon Dioxide 24 mmol/L (21-32) 12/21/18 18:39 Anion Gap 9.0 (3-11) 12/21/18 18:39 BUN 16 mg/dl (7-18) 12/21/18 18:39 Creatinine 1.59 mg/dl (0.6-1.2) H 12/21/18 18:39 Est Cr Clr Drug Dosing 15.8 ml/min 12/21/18 18:39 Est GFR ( Amer) 33.3 12/21/18 18:39 Est GFR (Non-Af Amer) 28.7 12/21/18 18:39 BUN/Creatinine Ratio 9.8 (10-20) L 12/21/18 18:39 Glucose 127 mg/dl (70-99) H 12/21/18 18:39 Calcium 8.1 mg/dl (8.5-10.1) L 12/21/18 18:39 Magnesium 1.6 mg/dl (1.8-2.4) L 12/21/18 18:39 Total Bilirubin 0.4 mg/dl (0.2-1) 12/21/18 18:39 AST 28 U/L (15-37) 12/21/18 18:39 ALT 27 U/L (12-78) 12/21/18 18:39 Alkaline Phosphatase 79 U/L (45-117) 12/21/18 18:39 Troponin I 0.135 ng/ml (0-0.045) H* 12/21/18 18:39 NT-Pro-B Natriuret Pep > 52626 pg/ml (0-1800) H 12/21/18 18:39 Total Protein 6.6 gm/dl (6.4-8.2) 12/21/18 18:39 Albumin 3.0 gm/dl (3.4-5.0) L 12/21/18 18:39 Globulin 3.6 gm/dl (2.5-4.0) 12/21/18 18:39 Albumin/Globulin Ratio 0.8 (0.9-2) L 12/21/18 18:39 Diagnostic Findings Chest x-ray showed CHF, small left pleural effusion EKG as per my interpretation : Rate 85, NSR, 1AVB, septal infarct, PVCs (1) CHF exacerbation Heart failure type: unspecified Qualified Code(s): I50.9 - Heart failure, unspecified
[2018-12-21] MEDS ORDERED: PROMETHAZINE HCL 12.5 MG in SODIUM CHLORIDE 0.9% 50 ML IV PRN (20:52)
[2018-12-21] MEDS ORDERED: NITROGLYCERIN SL 0.4 MG/TAB TAB SL PRN (20:52)
[2018-12-21] MEDS ORDERED: METOPROLOL TARTRATE 25 MG TAB PO SCH (20:55)
[2018-12-21] MEDS ORDERED: POTASSIUM CHLORIDE 20 MEQ TABCR PO SCH (21:00)
[2018-12-21] MEDS ORDERED: MAGNESIUM SULFATE / D5W 1 GM/100 ML BAG IV STA (21:15)
--- NOTE | 2018-12-21 21:41 | Emergency Department Note ---
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 The patient states she was sitting at home when she started to feel like she could not breathe. She notes she called 911 after. The patient no roemro she just went to the bathroom and felt like she could not breathe. She states her last bowel movement was 5 minutes ago and was not bloody. She states she still feels SOB. She states she does not use O2 at home. She notes she has swelling in her legs but states she thinks it improved a little today. The patient notes she has back pain. She denies cough, fever, chills, nausea, vomiting, history of blood clots, and smoking. She notes she went to her PCP this morning and they told her to take her water pill. She states she took her water pill today but was supposed to take another. She notes she has been using a catheter for months. Home Medications Home Medications Medication Instructions Recorded Confirmed Type Procrit 10,000 unit SUBCUT Q14D 08/16/18 12/21/18 History aspirin 81 mg PO DAILY 08/16/18 12/21/18 History bumetanide 0.5 mg PO QAM 08/16/18 12/21/18 History citalopram 5 mg PO DAILY 08/16/18 12/21/18 History levothyroxine 88 mcg PO DAILY 08/16/18 12/21/18 History lorazepam 1 mg PO Q8H PRN 08/16/18 12/21/18 History metoprolol tartrate 12.5 mg PO BID 08/16/18 12/21/18 History nifedipine 30 mg PO DAILY 08/16/18 12/21/18 History pantoprazole 40 mg PO DAILY 08/16/18 12/21/18 History ranitidine HCl 150 mg PO QAM 08/16/18 12/21/18 History sodium chloride 1 g PO DAILY 08/16/18 12/21/18 History Nepro Carb Steady 1 can PO BID 12/10/18 12/21/18 History Shingrex 50 mcg INJ DIRECTED 12/10/18 12/21/18 History acetaminophen 650 mg PO Q8H PRN 12/10/18 12/21/18 History atorvastatin 10 mg PO DAILY 12/10/18 12/21/18 History cholecalciferol (vitamin D3) 1,000 unit PO DAILY 12/10/18 12/21/18 History docusate sodium 100 mg PO BID 12/10/18 12/21/18 History magnesium oxide 400 mg PO DAILY 12/10/18 12/21/18 History polyethylene glycol 3350 [Miralax] 17 g PO DAILY PRN 12/10/18 12/21/18 History triamcinolone acetonide 1 applic TOPICAL BID 12/10/18 12/21/18 History epoetin lalita 10,000 units SUBCUT DIRECTED 12/21/18 12/21/18 History Allergies Allergy/AdvReac Type Severity Reaction Status Date / Time Penicillins Allergy Intermediate HIVES Verified 12/10/18 05:13 iron AdvReac Mild n&v, abd Verified 12/10/18 05:13 pain Venofer AdvReac Mild n&v, abd Verified 02/28/18 08:54 pain Past Med/Surg History Medical History Hypothyroidism (Chronic) CKD (chronic kidney disease), stage IV (Chronic) HTN (hypertension) (Chronic) Anxiety (Chronic) HLD (hyperlipidemia) (Chronic) SIADH (syndrome of inappropriate ADH production) (Chronic) H/O echocardiogram (Chronic) "03/2015 - EF 60-65%, moderate to severe aortic regurgitation" GERD (gastroesophageal reflux disease) (Chronic) Anemia (Acute) Chest pain Closed head injury (Acute) Constipation (Acute) Dizziness Fall (Acute) FRANCES (generalized anxiety disorder) (Chronic) Major depressive disorder, recurrent, moderate (Chronic) Suprapubic pain (Acute) Symptoms involving urinary system (Acute) UTI (urinary tract infection) (Acute) Surgical History Hx of appendectomy (Chronic) Hx of cholecystectomy (Chronic) Hx of dilation and curettage (Chronic) Status post total hip replacement, left (Chronic) Family History Other Hypertension Social History Preferred Language: [place] Communication Ability: Effective Optical Effects Camera Operator Required: No Beliefs That Will Affect Care: None marital status: / Current Living Situation: Family Current Living Situation Comment: own home, dtr lives w/ her current occupational status: retired Other Information That Helps Us Care for You: No Feels Safe at Home: Yes Safety Concerns: Feels Safe At This Time Smoking Status: Never smoker Do You Dip or Chew Tobacco: No Second Hand Exposure: No Hx Alcohol Use: No Hx Substance Use: Yes substance use type: prescription drug Substance Use Type Other:: lorazepam (prescribed) Review of Systems See HPI for pertinent positives & negatives. and A total of 10 systems reviewed and were otherwise negative Physical Exam Vital Signs Vital Signs - 24 hr 12/21/18 18:09 12/21/18 18:12 12/21/18 18:27 Temperature 36.4 C L Temperature Source Oral Sepsis Recent Fever Within 48 Hours No Sepsis Action Taken by Nursing No Action Required Pulse Rate 94 H Pulse Rate [Right Apical] 89 76 Respiratory Rate 18 18 Respiratory Effort / Characteristics Non-Labored Spontaneous Labored Respiratory Depth Normal Shallow Respiratory Pattern Regular Blood Pressure 179/55 H Blood Pressure [Right Arm] 164/63 H Blood Pressure Mean 96 Blood Pressure Mean [Right Arm] 96 Blood Pressure Position [Right Arm] Sitting Pulse Oximetry 94 97 98 Oxygen Delivery Method Nasal Cannula Nasal Cannula Nasal Cannula Oxygen Flow Rate 2 2 12/21/18 18:32 12/21/18 20:09 12/21/18 20:49 Temperature Temperature Source Sepsis Recent Fever Within 48 Hours Sepsis Action Taken by Nursing Pulse Rate Pulse Rate [Right Apical] 84 Respiratory Rate 24 Respiratory Effort / Characteristics Non-Labored Spontaneous Non-Labored Spontaneous Accessory Muscle Use Short of Breath Respiratory Depth Normal Normal Respiratory Pattern Regular Regular Tachypnea Blood Pressure Blood Pressure [Right Arm] 147/57 H Blood Pressure Mean Blood Pressure Mean [Right Arm] 87 Blood Pressure Position [Right Arm] Sitting Pulse Oximetry 96 98 Oxygen Delivery Method Nasal Cannula Nasal Cannula Nasal Cannula Oxygen Flow Rate 2 2 2 GENERAL: Nasal cannula in place. Mild tachypnea. EYE EXAM: Normal conjunctiva. PERRL, no anisocoria and EOM's grossly intact w/o pain. OROPHARYNX: Moist mucous membranes. Normal dentition. NECK: Supple, no nuchal rigidity, no adenopathy, non-tender. no signs of meningismus. LUNGS: Bibasilar crackles with tachypnea. HEART: NSR, no MRG. ABDOMEN: Abdomen soft, non-tender, normo-active bowel sounds, no masses, no rebound or guarding. BACK: No CVA TTP. SKIN: No rashes and no bruising. UPPER EXTREMITIES: Upper extremities are grossly normal. Palpable thrill over left AC. LOWER EXTREMITIES: No pitting edema. No calf pain. NEURO EXAM: Cranial nerves II-XII grossly intact, normal speech. Moves all 4 extremities on command w/o issue. Course 1806: The patient was evaluated in room B10, and a complete history and physical examination were performed. 1940: I reviewed the patient's case with Dr. Nathan Altamirano [facility] Hospitalist. He will evaluate the patient for further management. Administered Medications Bumetanide 1 mg/ Syringe 4 mls @ 4 mls/min IV NOW EDNA Stop: 01/20/19 19:44 Last Admin: 12/21/18 20:31 Dose: 4 mls/min Documented by: [id number] Discontinued Medications Albuterol (Duoneb) 3 ml NEB NOW STA Stop: 12/21/18 18:14 Last Admin: 12/21/18 18:24 Dose: 3 ml Documented by: [id number] Aspirin (Aspirin) 324 mg PO NOW STA Stop: 12/21/18 19:35 Last Admin: 12/21/18 20:07 Dose: 324 mg Documented by: [id number] Calcium Carbonate (Tums) 1,500 mg PO NOW STA Stop: 12/21/18 19:43 Last Admin: 12/21/18 20:07 Dose: 1,500 mg Documented by: [id number] Lorazepam (Ativan) 0.5 mg SL NOW STA Stop: 12/21/18 18:14 Last Admin: 12/21/18 18:39 Dose: 0.5 mg Documented by: [id number] Lorazepam (Ativan) 0.5 mg SL NOW STA Stop: 12/21/18 19:51 Last Admin: 12/21/18 20:08 Dose: 0.5 mg Documented by: [id number] Magnesium Oxide (Mag-Ox) 800 mg PO NOW STA Stop: 12/21/18 19:43 Last Admin: 12/21/18 20:08 Dose: 800 mg Documented by: [id number] Potassium Chloride (Klor-Con M20) 40 meq PO NOW STA Stop: 12/21/18 19:48 Last Admin: 12/21/18 20:07 Dose: 40 meq Documented by: [id number] Medical Decision Making Medical Records Attestation: I reviewed the patient's medical records. Home Medications Current Medication List: was personally reviewed by me Laboratory Data Attestation: I reviewed the patient's lab results. Result diagrams: 12/21/18 18:39 12/21/18 18:39 Lab Results 12/21/18 12/21/18 12/21/18 Range/Units 18:39 18:39 18:39 WBC 8.96 (4.8-10.8) K/uL RBC 2.64 L (4.2-5.4) M/uL Hgb 8.9 L (12.0-16.0) g/dL Hct 26.0 L (37-47) % MCV 98.5 (80-100) fL MCH 33.7 (25-34) pg MCHC 34.2 (32-36) g/dL RDW Std Deviation 49.2 H (36.4-46.3) fL RDW Coeff of Liss 13.9 (11.5-14.5) % Plt Count 243 (130-400) K/uL MPV 9.7 (7.4-10.4) fL Immature Gran % (Auto) 0.6 % Neut % (Auto) 79.6 % Lymph % (Auto) 13.2 % Meeker % (Auto) 5.5 % Eos % (Auto) 1.0 % Baso % (Auto) 0.1 % Immature Gran # (Auto) 0.05 H (0.00-0.02) K/uL Neut # (Auto) 7.14 H (1.4-6.5) K/uL Lymph # (Auto) 1.18 L (1.2-3.4) K/uL Meeker # (Auto) 0.49 (0.11-0.59) K/uL Eos # (Auto) 0.09 (0-0.5) K/uL Baso # (Auto) 0.01 (0-0.2) K/uL PT 11.1 (9.0-12.0) Seconds INR 1.1 (0.9-1.1) APTT 25.6 (21.0-31.0) Seconds PTT Ratio 0.9 VBG pH (7.36-7.41) VBG pCO2 (38-50) mmHg VBG pO2 mmHg VBG HCO3 mmol/L VBG O2 Saturation % VBG Base Excess mEq/L Barometric Pressure mm/Hg Sodium 136 (136-145) mmol/L Potassium 3.4 L (3.5-5.1) mmol/L Chloride 103 (98-107) mmol/L Carbon Dioxide 24 (21-32) mmol/L Anion Gap 9.0 (3-11) BUN 16 (7-18) mg/dl Creatinine 1.59 H (0.6-1.2) mg/dl Est Cr Clr Drug Dosing 15.8 ml/min Est GFR ( Amer) 33.3 Est GFR (Non-Af Amer) 28.7 BUN/Creatinine Ratio 9.8 L (10-20) Glucose 127 H (70-99) mg/dl Calcium 8.1 L (8.5-10.1) mg/dl Magnesium 1.6 L (1.8-2.4) mg/dl Total Bilirubin 0.4 (0.2-1) mg/dl AST 28 (15-37) U/L ALT 27 (12-78) U/L Alkaline Phosphatase 79 (45-117) U/L Troponin I 0.135 H* (0-0.045) ng/ml NT-Pro-B Natriuret Pep > 49253 H (0-1800) pg/ml Total Protein 6.6 (6.4-8.2) gm/dl Albumin 3.0 L (3.4-5.0) gm/dl Globulin 3.6 (2.5-4.0) gm/dl Albumin/Globulin Ratio 0.8 L (0.9-2) Range/Units 18:45 WBC (4.8-10.8) K/uL RBC (4.2-5.4) M/uL Hgb (12.0-16.0) g/dL Hct (37-47) % MCV (80-100) fL MCH (25-34) pg MCHC (32-36) g/dL RDW Std Deviation (36.4-46.3) fL RDW Coeff of Liss (11.5-14.5) % Plt Count (130-400) K/uL MPV (7.4-10.4) fL Immature Gran % (Auto) % Neut % (Auto) % Lymph % (Auto) % Meeker % (Auto) % Eos % (Auto) % Baso % (Auto) % Immature Gran # (Auto) (0.00-0.02) K/uL Neut # (Auto) (1.4-6.5) K/uL Lymph # (Auto) (1.2-3.4) K/uL Meeker # (Auto) (0.11-0.59) K/uL Eos # (Auto) (0-0.5) K/uL Baso # (Auto) (0-0.2) K/uL PT (9.0-12.0) Seconds INR (0.9-1.1) APTT (21.0-31.0) Seconds PTT Ratio VBG pH 7.38 (7.36-7.41) VBG pCO2 39 (38-50) mmHg VBG pO2 30 mmHg VBG HCO3 23 mmol/L VBG O2 Saturation < 60.0 % VBG Base Excess -2.3 mEq/L Barometric Pressure 729.0 mm/Hg Sodium (136-145) mmol/L Potassium (3.5-5.1) mmol/L Chloride (98-107) mmol/L Carbon Dioxide (21-32) mmol/L Anion Gap (3-11) BUN (7-18) mg/dl Creatinine (0.6-1.2) mg/dl Est Cr Clr Drug Dosing ml/min Est GFR ( Amer) Est GFR (Non-Af Amer) BUN/Creatinine Ratio (10-20) Glucose (70-99) mg/dl Calcium (8.5-10.1) mg/dl Magnesium (1.8-2.4) mg/dl Total Bilirubin (0.2-1) mg/dl AST (15-37) U/L ALT (12-78) U/L Alkaline Phosphatase (45-117) U/L Troponin I (0-0.045) ng/ml NT-Pro-B Natriuret Pep (0-1800) pg/ml Total Protein (6.4-8.2) gm/dl Albumin (3.4-5.0) gm/dl Globulin (2.5-4.0) gm/dl Albumin/Globulin Ratio (0.9-2) Imaging Data Radiologist's Impression: Radiology results as stated below per my review and the radiologist's interpretation: XR chest 1V portable CLINICAL HISTORY: Dyspnea COMPARISON STUDY: 10/28/2018 FINDINGS: Cardiomegaly. Small left pleural effusion. Findings of congestive heart failure. IMPRESSION: Congestive heart failure. Small left pleural effusion. The above report was generated using voice recognition software. It may contain grammatical, syntax or spelling errors. Electronically signed by: Rob Mike M.D. 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 Differential diagnosis: Etiologies such as infections, reactive airway disease, COPD, pneumonia, pleural effusion, pulmonary edema, ARDS, pneumothorax, CHF, cardiac ischemia, cardiac tamponade, dysrhythmia, anemia, pulmonary embolism, musculoskeletal, gastro intestinal process, as well as others were entertained. Patient was seen and evaluated the bedside. The patient relates that she is having some worsening shortness of breath. The patient was recently seen admitted to the hospital for concern for abdominal pain and was treated for small bowel obstruction conservatively. Patient does have a known history of anxiety. The patient did have bibasilar crackles on exam and has noted some lower extremity swelling. Patient did have blood work completed. The patient patient does have some chronic but stable anemia and a normal white count. The patient does have congestive change on her x-ray. Blood gas is relatively normal with a normal PCO2 and pH. Patient does have mild low potassium. Creatinine is chronic but stable and elevation at 1.5. Patient did have mildly low calcium magnesium. This is repleted. The patient does have an elevated troponin and grossly elevated BNP. Patient does not have any chest pains. No overt ischemic changes on her EKG I believe the troponin to be elevated secondary to demand ischemia from her CHF. Patient was given 1 mg of Bumex as the patient takes 0.5 daily. I did speak the on-call hospitalist who agreed to further evaluate treat the patient. Patient was admitted to the medicine service. Impression & Plan CHF exacerbation, Elevated troponin, Hypocalcemia, Hypomagnesemia Discharge Plan Visit Data Chief Complaint: Shortness of Breath/Dyspnea Stated Complaint: SOB, EDEMA TO LEGS, ED Provider: Mckay Newberry Discharge Problem: CHF exacerbation, Elevated troponin, Hypocalcemia, Hypomagnesemia Patient Disposition: Being Evaluated by Hospitalist Forms Stand Alone Forms: My [facility] Prescriptions Prescriptions: No Action nifedipine 30 mg tablet extended release 24hr 30 mg PO DAILY RF: 0 citalopram 10 mg tablet 5 mg PO DAILY RF: 0 sodium chloride 1 gram tablet 1 g PO DAILY RF: 0 aspirin 81 mg Tablet,Delayed Release (Dr/Ec) 81 mg PO DAILY RF: 0 levothyroxine 88 mcg tablet 88 mcg PO DAILY RF: 0 lorazepam 0.5 mg tablet 1 mg PO Q8H PRN (Reason: Anxiety) RF: 0 pantoprazole 40 mg tablet,delayed release (DR/EC) 40 mg PO DAILY RF: 0 ranitidine HCl 150 mg tablet 150 mg PO QAM RF: 0 bumetanide 1 mg tablet 0.5 mg PO QAM RF: 0 Procrit 10,000 unit/mL Solution 10,000 unit subcut Q14D RF: 0 metoprolol tartrate 25 mg tablet 12.5 mg PO BID RF: 0 epoetin lalita 10,000 unit/mL Solution 10,000 units subcut DIRECTED RF: 0 acetaminophen 650 mg Tablet Extended Release 650 mg PO Q8H PRN (Reason: pain/fever) RF: 0 atorvastatin 10 mg Tablet 10 mg PO DAILY RF: 0 cholecalciferol (vitamin D3) 1,000 unit Capsule 1,000 unit PO DAILY RF: 0 docusate sodium 100 mg Capsule 100 mg PO BID RF: 0 magnesium oxide 400 mg magnesium Tablet 400 mg PO DAILY RF: 0 Nepro Carb Steady 0.08 gram-1.8 kcal/mL Liquid 1 can PO BID RF: 0 polyethylene glycol 3350 [Miralax] 17 gram/dose Powder 17 g PO DAILY PRN (Reason: Constipation) RF: 0 triamcinolone acetonide 0.1 % Cream 1 applic TOPICAL BID RF: 0 Shingrex 50 mcg INJ DIRECTED RF: 0 Referrals Referrals: Yogesh Quevedo MD [Primary Care Provider] - Discharge Problem: CHF exacerbation Qualifiers: Heart failure type: unspecified Qualified Code(s): I50.9 - Heart failure, unspecified The scribe's documentation has been prepared under my direction and personally reviewed by me in its entirety. I confirm that the note above accurately reflects all work, treatment, procedures, and medical decision making performed by me.
[2018-12-21] MEDS ORDERED: ACETAMINOPHEN 325 MG TAB PO PRN (22:37)
[2018-12-21] MEDS ORDERED: POLYETHYLENE (MIRALAX) 17 GM PACK PO PRN (22:45)
[2018-12-21] MEDS: DOCUSATE SODIUM 100 MG CAP PO SCH (23:27)
[2018-12-22 04:52] LABS: Basophils # (auto) 0.03 K/uL (0-0.2); Basophils % (auto) 0.5 %; Eosinophils # (auto) 0.05 K/uL (0-0.5); Eosinophils % (auto) 0.8 %; Hematocrit (blood only) 24.6 % (37-47); Hemoglobin 8.3 g/dL (12.0-16.0); Immature Granulocytes # (auto) 0.02 K/uL (0.00-0.02); Immature Granulocytes % (auto) 0.3 %; Lymphocytes # (auto) 1.47 K/uL (1.2-3.4); Lymphocytes % (auto) 24.9 %; Mean Corpuscular Hgb Conc 33.7 g/dL (32-36); Mean Corpuscular Volume 100.4 fL (80-100); Mean Platelet Volume 9.6 fL (7.4-10.4); Monocytes # (auto) 0.61 K/uL (0.11-0.59); Monocytes % (auto) 10.3 %; Neutrophils # (auto) 3.73 K/uL (1.4-6.5); Neutrophils % (auto) 63.2 %; Platelet Count 199 K/uL (130-400); RDW Coefficient of Variation 14.1 % (11.5-14.5); RDW Standard Deviation 50.5 fL (36.4-46.3); Red Blood Count 2.45 M/uL (4.2-5.4); White Blood Count 5.91 K/uL (4.8-10.8)
[2018-12-22 05:02] LABS: Partial Thromboplastin Ratio 0.9; Partial Thromboplastin Time 25.6 Seconds (21.0-31.0)
[2018-12-22 05:16] LABS: BUN Creatinine Ratio 10.6 (10-20); Creatinine Clr Calc Pharmacy 16.7 ml/min; Est GFR (African American) 30.7; Est GFR (Non-African American) 26.5; Potassium 4.3 mmol/L (3.5-5.1); Troponin I 0.847 ng/ml (0-0.045)
[2018-12-22] MEDS ORDERED: METOPROLOL TARTRATE 25 MG TAB PO SCH (05:30)
[2018-12-22] MEDS ORDERED: HEPARIN SOD 5,000 UNIT/0.5 ML VIAL SQ SCH (06:00)
[2018-12-22] MEDS: LEVOTHYROXINE SODIUM 88 MCG TABLET PO SCH (06:17)
[2018-12-22] MEDS: CITALOPRAM 20 MG TAB PO SCH (08:47)
[2018-12-22] MEDS: ASPIRIN 81 MG ECTAB PO SCH (08:47)
[2018-12-22] MEDS: NIFEdipine EXTENDED REL 30 MG TABCR PO SCH (08:48)
[2018-12-22] MEDS: DOCUSATE SODIUM 100 MG CAP PO SCH ×2 (08:48→19:50)
[2018-12-22] MEDS: ATORVASTATIN 10 MG TAB PO SCH (08:48)
[2018-12-22] MEDS: PANTOprazole 40 MG TAB PO SCH (08:48)
--- NOTE | 2018-12-22 10:06 | Cardiology Consultation ---
Date of Consultation December 22, 2018 Assessment & Plan (1) CHF exacerbation: Acutely decompensated systolic heart failure possibly in association with fluid resuscitation. Echocardiogram demonstrates decline in overall LV function EF now 35 to 40% with septal and apical wall motion abnormalities. Moderate aortic insufficiency, moderate mitral insufficiency and moderate to severe tricuspid insufficiency also was present. Troponins are elevated echocardiogram demonstrates climbing LV function consistent with probable demand based non-ST segment elevation myocardial infarction Plan we will optimize medical regimen with ongoing diuresis. Anticoagulation will be initiated with heparin with anticipated usage 24 to 48 hours but will need to be followed closely given chronic anemia recent bowel obstruction. Ultimately goals to be conservative medical management patient high risk for co ronary imaging (2) Elevated troponin: As above (3) CKD (chronic kidney disease), stage IV: Outpatient renal function demonstrates creatinines between 1.5 and 2.5. (4) HTN (hypertension): (5) Non-ST elevated myocardial infarction: History of Present Illness Reason for Consultation: Congestive heart failure Requesting Physician: Dr Fam Attending Physician: Ramez Fam MD History of Present Illness Patient is a frail 88-year-old female with complex history as outlined below. Her past medical history is notable for chronic renal insufficiency stage IV, hypertension, chronic anemia on Procrit supplementation, hypothyroidism. Cardiac issues are notable for valvular disease with moderate aortic insufficiency by past echocardiogram and diastolic dysfunction. Patient presents now with recent hospitalization with small bowel obstruction and receiving fluid resuscitation for complaints during hospital stay. She was seen yesterday in follow-up and noted to be worsening with dyspnea on exertion and lower extremity edema per review she presented to the emergency room last night due to shortness of breath. She denied any chest pain or tachypalpitations. Noted no syncope or near syncope. Denied fevers or chills. No overt bleeding difficulties noted no abdominal pain or discomfort since hospital discharge. Notes moved her bowels this morning. Patient feels her weight is up since hospital discharge but not defined. Notes legs were tense and markedly edematous yesterday but improved this morning after diuretics last night Allergies Allergy/AdvReac Type Severity Reaction Status Date / Time Penicillins Allergy Intermediate HIVES Verified 12/10/18 05:13 iron AdvReac Mild n&v, abd Verified 12/10/18 05:13 pain Venofer AdvReac Mild n&v, abd Verified 02/28/18 08:54 pain Home Medications Home Medications Medication Instructions Recorded Confirmed Type Procrit 10,000 unit SUBCUT Q14D 08/16/18 12/21/18 History aspirin 81 mg PO DAILY 08/16/18 12/21/18 History bumetanide 0.5 mg PO QAM 08/16/18 12/21/18 History citalopram 5 mg PO DAILY 08/16/18 12/21/18 History levothyroxine 88 mcg PO DAILY 08/16/18 12/21/18 History lorazepam 1 mg PO Q8H PRN 08/16/18 12/21/18 History metoprolol tartrate 12.5 mg PO BID 08/16/18 12/21/18 History nifedipine 30 mg PO DAILY 08/16/18 12/21/18 History pantoprazole 40 mg PO DAILY 08/16/18 12/21/18 History ranitidine HCl 150 mg PO QAM 08/16/18 12/21/18 History sodium chloride 1 g PO DAILY 08/16/18 12/21/18 History Nepro Carb Steady 1 can PO BID 12/10/18 12/21/18 History Shingrex 50 mcg INJ DIRECTED 12/10/18 12/21/18 History acetaminophen 650 mg PO Q8H PRN 12/10/18 12/21/18 History atorvastatin 10 mg PO DAILY 12/10/18 12/21/18 History cholecalciferol (vitamin D3) 1,000 unit PO DAILY 12/10/18 12/21/18 History docusate sodium 100 mg PO BID 12/10/18 12/21/18 History magnesium oxide 400 mg PO DAILY 12/10/18 12/21/18 History polyethylene glycol 3350 [Miralax] 17 g PO DAILY PRN 12/10/18 12/21/18 History triamcinolone acetonide 1 applic TOPICAL BID 12/10/18 12/21/18 History epoetin lalita 10,000 units SUBCUT DIRECTED 12/21/18 12/21/18 History Patient History Medical History Hypothyroidism (Chronic) CKD (chronic kidney disease), stage IV (Chronic) HTN (hypertension) (Chronic) Anxiety (Chronic) HLD (hyperlipidemia) (Chronic) SIADH (syndrome of inappropriate ADH production) (Chronic) H/O echocardiogram (Chronic) "03/2015 - EF 60-65%, moderate to severe aortic regurgitation" GERD (gastroesophageal reflux disease) (Chronic) Anemia (Acute) Chest pain Closed head injury (Acute) Constipation (Acute) Dizziness Fall (Acute) FRANCES (generalized anxiety disorder) (Chronic) Major depressive disorder, recurrent, moderate (Chronic) Suprapubic pain (Acute) Symptoms involving urinary system (Acute) UTI (urinary tract infection) (Acute) Surgical History Hx of appendectomy (Chronic) Hx of cholecystectomy (Chronic) Hx of dilation and curettage (Chronic) Status post total hip replacement, left (Chronic) Family History Other Hypertension Social History Preferred Language: Bhutanese Communication Ability: Effective Rn Advanced Required: No Beliefs That Will Affect Care: None marital status: / Current Living Situation: Family Current Living Situation Comment: own home, dtr lives w/ her current occupational status: retired Other Information That Helps Us Care for You: No Feels Safe at Home: Yes Safety Concerns: Feels Safe At This Time Smoking Status: Never smoker Do You Dip or Chew Tobacco: No Second Hand Exposure: No Hx Alcohol Use: No Hx Substance Use: Yes substance use type: prescription drug Substance Use Type Other:: lorazepam (prescribed) Review of Systems Review of Systems: As per HPI Physical Exam Constitutional: Thin frail elderly appearing female no answer my questions appropriately Eyes: PERRL, conjunctivae normal, anicteric sclerae ENMT: external ear and nose normal, oropharynx normal Neck: trachea midline, no thyromegaly Respiratory: Auscultation: + rales (Bibasilar) Cardiovascular: Rate/Rhythm: regular rate and regular rhythm Heart Sounds: normal S1, normal S2 and + murmur (Grade 2 systolic no audible diastolic); no gallop Vessels: + JVD; no carotid bruit and no abdominal aortic bruit Extremities: + edema (1-2+ bilateral lower extremity) Gastrointestinal (Abdomen): Percussion/Palpation: abdomen nontender and no hepatosplenomegaly Results & Data Vital Signs (Past 12 Hours) Vital Signs Temp Pulse Resp BP Pulse Ox 12/22/18 07:39 36.4 C L 79 17 139/65 97 12/22/18 03:00 36.8 C 92 H 19 161/80 H 100 12/21/18 23:20 37.0 C 79 18 133/76 97 12/21/18 22:37 36.9 C 86 18 142/76 H 98 Laboratory Results Laboratory Results - last 24 hr 12/21/18 12/21/18 12/21/18 18:39 18:39 18:39 WBC 8.96 RBC 2.64 L Hgb 8.9 L Hct 26.0 L MCV 98.5 MCH 33.7 MCHC 34.2 RDW Std Deviation 49.2 H RDW Coeff of Liss 13.9 Plt Count 243 MPV 9.7 Immature Gran % (Auto) 0.6 Neut % (Auto) 79.6 Lymph % (Auto) 13.2 Peach % (Auto) 5.5 Eos % (Auto) 1.0 Baso % (Auto) 0.1 Immature Gran # (Auto) 0.05 H Neut # (Auto) 7.14 H Lymph # (Auto) 1.18 L Peach # (Auto) 0.49 Eos # (Auto) 0.09 Baso # (Auto) 0.01 PT 11.1 INR 1.1 APTT 25.6 PTT Ratio 0.9 VBG pH VBG pCO2 VBG pO2 VBG HCO3 VBG O2 Saturation VBG Base Excess Barometric Pressure Sodium 136 Potassium 3.4 L Chloride 103 Carbon Dioxide 24 Anion Gap 9.0 BUN 16 Creatinine 1.59 H Est Cr Clr Drug Dosing 15.8 Est GFR ( Amer) 33.3 Est GFR (Non-Af Amer) 28.7 BUN/Creatinine Ratio 9.8 L Glucose 127 H Calcium 8.1 L Magnesium 1.6 L Total Bilirubin 0.4 AST 28 ALT 27 Alkaline Phosphatase 79 Troponin I 0.135 H* NT-Pro-B Natriuret Pep > 67616 H Total Protein 6.6 Albumin 3.0 L Globulin 3.6 Albumin/Globulin Ratio 0.8 L 12/21/18 12/21/18 12/22/18 18:45 22:40 04:32 WBC 5.91 RBC 2.45 L Hgb 8.3 L Hct 24.6 L MCV 100.4 H MCH 33.9 MCHC 33.7 RDW Std Deviation 50.5 H RDW Coeff of Liss 14.1 Plt Count 199 MPV 9.6 Immature Gran % (Auto) 0.3 Neut % (Auto) 63.2 Lymph % (Auto) 24.9 Peach % (Auto) 10.3 Eos % (Auto) 0.8 Baso % (Auto) 0.5 Immature Gran # (Auto) 0.02 Neut # (Auto) 3.73 Lymph # (Auto) 1.47 Peach # (Auto) 0.61 H Eos # (Auto) 0.05 Baso # (Auto) 0.03 PT INR APTT PTT Ratio VBG pH 7.38 VBG pCO2 39 VBG pO2 30 VBG HCO3 23 VBG O2 Saturation < 60.0 VBG Base Excess -2.3 Barometric Pressure 729.0 Sodium Potassium Chloride Carbon Dioxide Anion Gap BUN Creatinine Est Cr Clr Drug Dosing Est GFR ( Amer) Est GFR (Non-Af Amer) BUN/Creatinine Ratio Glucose Calcium Magnesium Total Bilirubin AST ALT Alkaline Phosphatase Troponin I 0.686 H* NT-Pro-B Natriuret Pep Total Protein Albumin Globulin Albumin/Globulin Ratio 12/22/18 12/22/18 12/22/18 04:32 04:32 04:32 WBC RBC Hgb Hct MCV MCH MCHC RDW Std Deviation RDW Coeff of Liss Plt Count MPV Immature Gran % (Auto) Neut % (Auto) Lymph % (Auto) Peach % (Auto) Eos % (Auto) Baso % (Auto) Immature Gran # (Auto) Neut # (Auto) Lymph # (Auto) Peach # (Auto) Eos # (Auto) Baso # (Auto) PT INR APTT 25.6 PTT Ratio 0.9 VBG pH VBG pCO2 VBG pO2 VBG HCO3 VBG O2 Saturation VBG Base Excess Barometric Pressure Sodium 137 Potassium 4.3 D Chloride 104 Carbon Dioxide 30 Anion Gap 3.0 BUN 18 Creatinine 1.70 H Est Cr Clr Drug Dosing 16.7 Est GFR ( Amer) 30.7 Est GFR (Non-Af Amer) 26.5 BUN/Creatinine Ratio 10.6 Glucose 87 Calcium 8.0 L Magnesium 1.7 L Total Bilirubin AST ALT Alkaline Phosphatase Troponin I 0.847 H* NT-Pro-B Natriuret Pep Total Protein Albumin Globulin Albumin/Globulin Ratio (1) CHF exacerbation Heart failure type: unspecified Qualified Code(s): I50.9 - Heart failure, unspecified
[2018-12-22] MEDS ORDERED: Heparin IV Low Dose *NO* Bolus IV SCH (10:50)
[2018-12-22] MEDS: HEPARIN SODIUM/DEXTROSE 25,000 UNITS/500 ML BAG IV SCH (11:07)
[2018-12-22] MEDS: NITROGLYCERIN 2% OINTMENT 30GM TUBE EXT SCH ×3 (11:10→22:33)
--- NOTE | 2018-12-22 16:14 | Hospitalist Progress Note ---
Date of Service December 22, 2018 Assessment & Plan (1) Non-ST elevated myocardial infarction: -troponins peaked at 0.847 -echocardiogram shows on this admission shows that There is global hypokineses with severe hypokinesis of apical septum and anterior inferior wall -cardiology service has started patient on IV heparin for medical management of anticoagulation -continue aspirin, metoprolol, nifedipine -continue diuresis of Lasix 60 mg IV BID -patient has miller and monitor intake and output closely Acute on Chronic systolic Heart failure -CXR: Cardiomegaly. Small left pleural effusion. Findings of congestive heart failure -echocardiogram with depressed ejection fraction -continue diuresis as above Valvular disease: Moderate Mitral Regurgitation Moderate to Severe Tricuspid Regurgitation -medical management with diuresis as above Hypokalemia -resolved with potassium supplementation -trend serum potassium levels Hypomagnesemia -continue oral magnesium supplements, if serum magnesium continues to be low, then will need IV magnesium supplements despite CHF Chronic Kidney Disease stage IV -monitor renal function -will request nephrology consult in case of poor response to diuretics Anemia -Monitor Hgb Hypothyroidism -continue home dose levothyroxine Anxiety -ativan prn DVT prophylaxis. Heparin IV Full code Patient's daughter Ms. Soni Domínguez, contact #[phone]. Subjective Patient reports anxiety. denies chest pain. on nasal cannula oxygen. denies acute shortness of breath. no abdomen complaints. on IV heparin. has miller. minimal urine output despite diuretic as per nurse Physical Exam Constitutional: + thin Eyes: PERRL, conjunctivae normal, anicteric sclerae EOM intact bilaterally ENMT: external ear and nose normal, oropharynx normal Neck: trachea midline, no thyromegaly normal visual inspection Respiratory: normal respiratory effort Auscultation: + crackles Cardiovascular: Rate/Rhythm: regular rate and regular rhythm Extremities: + edema (bilateral leg edema) Gastrointestinal (Abdomen): normal bowel sounds, soft, nontender, no hepatosplenomegaly Neurologic: PERRL, EOMI, accommodation nl, no face palsy, no dysarthria Psychiatric: Orientation: alert and cooperative Eye Contact: good eye contact Mood: + anxious mood Genitourinary: + bladder abnormality (miller in place) Results & Data Vital Signs (Past 12 Hours) Vital Signs Temp Pulse Pulse Resp BP Pulse Ox 12/22/18 15:25 36.3 C L 76 16 130/58 L 99 12/22/18 11:48 36.7 C 77 18 117/70 98 12/22/18 07:39 36.4 C L 79 17 139/65 97
[2018-12-22 17:09] LABS: Basophils # (auto) 0.03 K/uL (0-0.2); Basophils % (auto) 0.4 %; Eosinophils % (auto) 1.5 %; Hematocrit (blood only) 25.7 % (37-47); Hemoglobin 8.8 g/dL (12.0-16.0); Immature Granulocytes # (auto) 0.02 K/uL (0.00-0.02); Immature Granulocytes % (auto) 0.3 %; Lymphocytes # (auto) 1.98 K/uL (1.2-3.4); Lymphocytes % (auto) 29.3 %; Mean Corpuscular Hgb Conc 34.2 g/dL (32-36); Mean Platelet Volume 9.7 fL (7.4-10.4); Monocytes # (auto) 0.51 K/uL (0.11-0.59); Monocytes % (auto) 7.5 %; Neutrophils # (auto) 4.12 K/uL (1.4-6.5); Platelet Count 219 K/uL (130-400); RDW Coefficient of Variation 14.5 % (11.5-14.5); RDW Standard Deviation 51.2 fL (36.4-46.3); Red Blood Count 2.57 M/uL (4.2-5.4); White Blood Count 6.76 K/uL (4.8-10.8)
[2018-12-22 17:26] LABS: Albumin Level 2.7 gm/dl (3.4-5.0); BUN Creatinine Ratio 10.5 (10-20); Calcium 8.2 mg/dl (8.5-10.1); Creatinine Clr Calc Pharmacy 14.2 ml/min; Est GFR (African American) 24.9; Est GFR (Non-African American) 21.5; Magnesium 1.8 mg/dl (1.8-2.4); Potassium 4.3 mmol/L (3.5-5.1)
[2018-12-22 17:29] LABS: Albumin Globulin Ratio 0.8 (0.9-2); Bilirubin,Total 0.2 mg/dl (0.2-1); Globulin 3.3 gm/dl (2.5-4.0)
--- NOTE | 2018-12-22 17:36 | Nephrology Consultation ---
Date of Consultation December 22, 2018 Assessment & Plan (1) CKD (chronic kidney disease), stage IV: w/ demand ischemia/NSTEMI, new systolic HF, recent admission for small bowel obstruction, chronic urinary retention/chronic indwelling miller her renal function has worsened over past year >> summer 2017 creatinine was in high ones; fall 2017-spring 2018 as OP creatinine more in low-mid 2's; no clear cause for worsening; did not respond to increasing fluid intake as OP; challenging to assess urine studies w/ chronic miller; no retention /issues since miller placement except recurrent + urine cxs/UTIs/ courses of abtx. actually in hospital her renal function has been better than OP baselines -- ? if she is having issues maintaining hydration as OP -daily bmp -lasix as below -full code now; dialysis not discussed d/t anxiety and also since we need first to have appropriate diuresis trial -daughter at bedside and helpful w/ details of hx Present on Admission?: Yes (2) CHF exacerbation: -cont to hold salt tablets -<2 gm daily Na diet ordered -FR 1.5L/ day ordered -lasix 40 mg tid IV starting tomorrow rather than 60 mg bid ->pls have nursing/PT assess whether pt can do standing wts >> she usually does them in clinic -strict I/O Present on Admission?: Yes (3) Non-ST elevated myocardial infarction: per cardiology and primary service Present on Admission?: Yes (4) Anemia, chronic disease: on epo as OP > last [id number] units on 12/15 had been planned -transferrin sat on 12/08 was 38% -monitor daily -would not redose epo just yet w/ concern for some active ischemia Present on Admission?: Yes History of Present Illness Reason for Consultation: ckd4, HF Requesting Physician: Dr Fam Attending Physician: Ramez Fam MD History of Present Illness 88 y/o F whom I'm asked to see for assistance w/ volume management in setting of CKD4, HF after she was admitted here last evening for decompensated HF w/ new systolic dysfunction last evening after recent confinement here for SBO (12/10- 12/17) managed conservatively. Hx of HFpEF w/ moderate aortic insufficiency previously; however new EF 35% today w/ apical/septal WMA on TTE, presumably per cardiology from NSTEMI in setting of demand ischemia after fluid resuscitation for SBO. 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 She is getting 60 mg lasix IV bid as well as a heparin gtt. her creatinine on presentation yesterday was 1.6; up to 2.0 today; had been 1.5 at recent hospital stay. There are concerns she is not making much urine despite diuretics. her salt tablets were held at admission. Allergies Allergy/AdvReac Type Severity Reaction Status Date / Time Penicillins Allergy Intermediate HIVES Verified 12/10/18 05:13 iron AdvReac Mild n&v, abd Verified 12/10/18 05:13 pain Venofer AdvReac Mild n&v, abd Verified 02/28/18 08:54 pain Home Medications Home Medications Medication Instructions Recorded Confirmed Type Procrit 10,000 unit SUBCUT Q14D 08/16/18 12/21/18 History aspirin 81 mg PO DAILY 08/16/18 12/21/18 History bumetanide 0.5 mg PO QAM 08/16/18 12/21/18 History citalopram 5 mg PO DAILY 08/16/18 12/21/18 History levothyroxine 88 mcg PO DAILY 08/16/18 12/21/18 History lorazepam 1 mg PO Q8H PRN 08/16/18 12/21/18 History metoprolol tartrate 12.5 mg PO BID 08/16/18 12/21/18 History nifedipine 30 mg PO DAILY 08/16/18 12/21/18 History pantoprazole 40 mg PO DAILY 08/16/18 12/21/18 History ranitidine HCl 150 mg PO QAM 08/16/18 12/21/18 History sodium chloride 1 g PO DAILY 08/16/18 12/21/18 History Nepro Carb Steady 1 can PO BID 12/10/18 12/21/18 History Shingrex 50 mcg INJ DIRECTED 12/10/18 12/21/18 History acetaminophen 650 mg PO Q8H PRN 12/10/18 12/21/18 History atorvastatin 10 mg PO DAILY 12/10/18 12/21/18 History cholecalciferol (vitamin D3) 1,000 unit PO DAILY 12/10/18 12/21/18 History docusate sodium 100 mg PO BID 12/10/18 12/21/18 History magnesium oxide 400 mg PO DAILY 12/10/18 12/21/18 History polyethylene glycol 3350 [Miralax] 17 g PO DAILY PRN 12/10/18 12/21/18 History triamcinolone acetonide 1 applic TOPICAL BID 12/10/18 12/21/18 History epoetin lalita 10,000 units SUBCUT DIRECTED 12/21/18 12/21/18 History Patient History Medical History Hypothyroidism (Chronic) CKD (chronic kidney disease), stage IV (Chronic) HTN (hypertension) (Chronic) Anxiety (Chronic) HLD (hyperlipidemia) (Chronic) SIADH (syndrome of inappropriate ADH production) (Chronic) H/O echocardiogram (Chronic) "03/2015 - EF 60-65%, moderate to severe aortic regurgitation" GERD (gastroesophageal reflux disease) (Chronic) Anemia (Acute) Chest pain Closed head injury (Acute) Constipation (Acute) Dizziness Fall (Acute) FRANCES (generalized anxiety disorder) (Chronic) Major depressive disorder, recurrent, moderate (Chronic) Suprapubic pain (Acute) Symptoms involving urinary system (Acute) UTI (urinary tract infection) (Acute) Chronic indwelling Miller catheter Surgical History Hx of appendectomy (Chronic) Hx of cholecystectomy (Chronic) Hx of dilation and curettage (Chronic) Status post total hip replacement, left (Chronic) Family History Other Hypertension Social History Preferred Language: Kinyarwanda Communication Ability: Effective Hotel Service Manager Required: No Beliefs That Will Affect Care: None marital status: / Current Living Situation: Family Current Living Situation Comment: own home, dtr lives w/ her current occupational status: retired Other Information That Helps Us Care for You: No Feels Safe at Home: Yes Safety Concerns: Feels Safe At This Time Smoking Status: Never smoker Do You Dip or Chew Tobacco: No Second Hand Exposure: No Hx Alcohol Use: No Hx Substance Use: Yes substance use type: prescription drug Substance Use Type Other:: lorazepam (prescribed) Review of Systems Review of Systems: All systems reviewed & are unremarkable except as noted in HPI & below and Unobtainable due to mental health condition Constitutional: + weakness and + anorexia Respiratory: + dyspnea; no cough Cardiovascular: + edema (prior to admission pedal) Gastrointestinal: + early satiety; no abdominal pain, no vomiting and no change in bowel habits Genitourinary: concerned about diminished uop Psychiatric: + anxiety (pt worried she will , that she "won't make it past tonight") Physical Exam Constitutional: well developed and + thin on 02NC, no acute distress but becomes more anxious as interview progresses Eyes: EOM intact bilaterally ENMT: Ears: no external ear abnormality Nose: no external nose abnormality Mouth: + dry oral mucous membranes Neck: no nuchal rigidity Respiratory: normal respiratory effort and + paradoxical thoraco-abdominal movement Auscultation: + diminished lung sounds (melina bl bases) and + crackles (posteriorly 2/[address] up) Cardiovascular: RRR, no murmur, no edema Gastrointestinal (Abdomen): Inspection/Auscultation: normal bowel sounds Percussion/Palpation: + abdomen tender (slight epigastric/ LUQ) and abdomen soft; no guarding Musculoskeletal: Extremities: strength 5/5 throughout Skin: no rashes, warm and dry + pallor Neurologic: barnhart, fluent though limited speech, no tremor Psychiatric: Orientation: alert, cooperative and + guarded Eye Contact: + fair eye contact Speech: normal rate/rhythm/volume of speech Affect: + anxious affect Insight: + limited insight Judgement: + limited judgement Genitourinary: foely w/ some urine Results & Data Vital Signs (Past 12 Hours) Vital Signs Temp Pulse Pulse Resp BP Pulse Ox 12/22/18 15:25 36.3 C L 76 16 130/58 L 99 12/22/18 11:48 36.7 C 77 18 117/70 98 12/22/18 07:39 36.4 C L 79 17 139/65 97 Laboratory Results Abnormal lab results 12/21/18 12/21/18 12/21/18 Range/Units 18:39 18:39 22:40 RBC 2.64 L (4.2-5.4) M/uL Hgb 8.9 L (12.0-16.0) g/dL Hct 26.0 L (37-47) % MCV (80-100) fL MCH (25-34) pg RDW Std Deviation 49.2 H (36.4-46.3) fL Immature Gran # (Auto) 0.05 H (0.00-0.02) K/uL Neut # (Auto) 7.14 H (1.4-6.5) K/uL Lymph # (Auto) 1.18 L (1.2-3.4) K/uL Ceiba # (Auto) (0.11-0.59) K/uL Potassium 3.4 L (3.5-5.1) mmol/L BUN (7-18) mg/dl Creatinine 1.59 H (0.6-1.2) mg/dl BUN/Creatinine Ratio 9.8 L (10-20) Glucose 127 H (70-99) mg/dl Calcium 8.1 L (8.5-10.1) mg/dl Magnesium 1.6 L (1.8-2.4) mg/dl Troponin I 0.135 H* 0.686 H* (0-0.045) ng/ml NT-Pro-B Natriuret Pep > 89170 H (0-1800) pg/ml Total Protein (6.4-8.2) gm/dl Albumin 3.0 L (3.4-5.0) gm/dl Albumin/Globulin Ratio 0.8 L (0.9-2) 12/22/18 12/22/18 12/22/18 Range/Units 04:32 04:32 04:32 RBC 2.45 L (4.2-5.4) M/uL Hgb 8.3 L (12.0-16.0) g/dL Hct 24.6 L (37-47) % MCV 100.4 H (80-100) fL MCH (25-34) pg RDW Std Deviation 50.5 H (36.4-46.3) fL Immature Gran # (Auto) (0.00-0.02) K/uL Neut # (Auto) (1.4-6.5) K/uL Lymph # (Auto) (1.2-3.4) K/uL Ceiba # (Auto) 0.61 H (0.11-0.59) K/uL Potassium (3.5-5.1) mmol/L BUN (7-18) mg/dl Creatinine 1.70 H (0.6-1.2) mg/dl BUN/Creatinine Ratio (10-20) Glucose (70-99) mg/dl Calcium 8.0 L (8.5-10.1) mg/dl Magnesium 1.7 L (1.8-2.4) mg/dl Troponin I 0.847 H* (0-0.045) ng/ml NT-Pro-B Natriuret Pep (0-1800) pg/ml Total Protein (6.4-8.2) gm/dl Albumin (3.4-5.0) gm/dl Albumin/Globulin Ratio (0.9-2) 12/22/18 12/22/18 12/22/18 Range/Units 11:58 16:57 16:57 RBC 2.57 L (4.2-5.4) M/uL Hgb 8.8 L (12.0-16.0) g/dL Hct 25.7 L (37-47) % MCV (80-100) fL MCH 34.2 H (25-34) pg RDW Std Deviation 51.2 H (36.4-46.3) fL Immature Gran # (Auto) (0.00-0.02) K/uL Neut # (Auto) (1.4-6.5) K/uL Lymph # (Auto) (1.2-3.4) K/uL Ceiba # (Auto) (0.11-0.59) K/uL Potassium (3.5-5.1) mmol/L BUN 21 H (7-18) mg/dl Creatinine 2.02 H D (0.6-1.2) mg/dl BUN/Creatinine Ratio (10-20) Glucose (70-99) mg/dl Calcium 8.2 L (8.5-10.1) mg/dl Magnesium (1.8-2.4) mg/dl Troponin I 0.518 H* (0-0.045) ng/ml NT-Pro-B Natriuret Pep (0-1800) pg/ml Total Protein 6.0 L (6.4-8.2) gm/dl Albumin 2.7 L (3.4-5.0) gm/dl Albumin/Globulin Ratio 0.8 L (0.9-2) Diagnostic Findings cxr > HF, small pl effusion TTE as above (1) CHF exacerbation Heart failure type: unspecified Qualified Code(s): I50.9 - Heart failure, unspecified
[2018-12-22 17:37] LABS: Partial Thromboplastin Ratio 2.4
[2018-12-22 18:10] LABS: Partial Thromboplastin Time 65.2 Seconds (21.0-31.0)
[2018-12-22] MEDS: METOPROLOL SUCC 25MG EXT REL TAB PO SCH (19:51)
[2018-12-22] MEDS: LORazepam 1 MG TAB PO PRN (22:30)
[2018-12-23] MEDS: LEVOTHYROXINE SODIUM 88 MCG TABLET PO SCH (05:55)
[2018-12-23] MEDS: NITROGLYCERIN 2% OINTMENT 30GM TUBE EXT SCH ×3 (05:55→17:30)
[2018-12-23 07:04] LABS: Partial Thromboplastin Ratio 2.9
[2018-12-23 07:12] LABS: Partial Thromboplastin Time 78.3 Seconds (21.0-31.0)
[2018-12-23] MEDS: METOPROLOL SUCC 25MG EXT REL TAB PO SCH ×3 (08:16→21:04)
[2018-12-23] MEDS: ASPIRIN 81 MG ECTAB PO SCH (08:17)
[2018-12-23] MEDS: NIFEdipine EXTENDED REL 30 MG TABCR PO SCH (08:17)
[2018-12-23] MEDS: PANTOprazole 40 MG TAB PO SCH (08:17)
[2018-12-23] MEDS: CITALOPRAM 20 MG TAB PO SCH (08:17)
[2018-12-23] MEDS: DOCUSATE SODIUM 100 MG CAP PO SCH ×2 (08:17→21:04)
[2018-12-23] MEDS: ATORVASTATIN 10 MG TAB PO SCH (08:18)
[2018-12-23] MEDS ORDERED: FUROSEMIDE 40 MG in SYRINGE 0 ML IV SCH (09:00)
[2018-12-23] MEDS ORDERED: FUROSEMIDE 60 MG in SYRINGE 0 ML IV SCH (09:00)
[2018-12-23] MEDS ORDERED: CYCLOBENZAPRINE HCL 5 MG TAB PO STA (09:03)
--- NOTE | 2018-12-23 10:12 | Progress Note ---
DATE: 12/23/2018 NEPHROLOGY PROGRESS NOTE SUBJECTIVE: Overnight, the patient really has not diuresed at all. Her urine output is less than 300 mL despite Lasix 40 IV 3 times a day. She does have lower extremity edema as well as some shortness of breath. The patient is very anxious and is crying, saying she will not live anymore. OBJECTIVE: Most recent vital signs show temperature 36.4 degrees Celsius, pulse rate 84 per minute, respiratory rate about 22 per minute, blood pressure 124/70, 88 mean, 99% on 2 liters nasal cannula. Urine output yesterday in a 24-hour time period was 202 mL, so far we have 145 mL since midnight. Laboratory test was reviewed and we do not have one from this morning. ASSESSMENT: Baseline chronic kidney disease stage IV, currently quite oliguric in the setting of non-ST elevation myocardial infarction as well as congestive heart failure exacerbation. RECOMMENDATIONS: The patient is not diuresing at all at this time with less than 300 mL of urine. This is quite oliguric and we do need to increase the Lasix significantly. I would increase Lasix to 80 IV t.i.d. as well as add one dose of metolazone 5 mg for now. I believe she probably had ATN in the setting of new-onset PA and other medical problems that is happening right now. Continue daily labs. MTDD
[2018-12-23] MEDS ORDERED: metOLazone 5 MG TABLET PO ONE (10:15)
[2018-12-23] MEDS: FUROSEMIDE 80 MG in SYRINGE 0 ML IV SCH ×3 (10:56→21:04)
--- NOTE | 2018-12-23 12:18 | Cardiology Progress Note ---
Date of Service December 23, 2018 Assessment & Plan (1) CHF exacerbation: Acutely decompensated systolic heart failure possibly in association with fluid resuscitation. Echocardiogram demonstrates decline in overall LV function EF now 35 to 40% with septal and apical wall motion abnormalities. Moderate aortic insufficiency, moderate mitral insufficiency and moderate to severe tricuspid insufficiency also was present. Plan: Clinical examination suggests some diuresis with lower extremity edema improved however exam not supported by I's and O's. Appreciate nephrology input (2) Elevated troponin: Consistent with non-ST segment elevation myocardial infarction versus apical ballooning cardiomyopathy. We will titrate beta-maliha higher discontinue heparin at the end of day. Continue aspirin and statin and nitrates (3) CKD (chronic kidney disease), stage IV: Outpatient renal function demonstrates creatinines between 1.5 and 2.5. (4) HTN (hypertension): (5) Non-ST elevated myocardial infarction: Subjective Patient seen and examined chart medications telemetry reviewed. Patient tearful concern regarding ongoing issues possibility of not being allowed to return to home. Denies any chest pain or discomfort notes no worsening shortness of breath. Minimal diuresis overnight by I's and O's lower legs edema is substantially improved Physical Exam Eyes: PERRL, conjunctivae normal, anicteric sclerae ENMT: external ear and nose normal, oropharynx normal Neck: trachea midline, no thyromegaly Respiratory: Auscultation: + rales (Bibasilar) Cardiovascular: Rate/Rhythm: regular rate and regular rhythm Heart Sounds: normal S1, normal S2 and + murmur (Grade 2 systolic no audible diastolic); no gallop Vessels: + JVD; no carotid bruit and no abdominal aortic bruit Extremities: + edema (1-2+ bilateral lower extremity) Gastrointestinal (Abdomen): Percussion/Palpation: abdomen nontender and no hepatosplenomegaly Results & Data Vital Signs (Past 12 Hours) Vital Signs Temp Pulse Resp BP BP Pulse Ox 12/23/18 07:04 36.4 C L 84 15 124/70 99 12/23/18 04:00 36.6 C 75 17 115/58 L 99 (1) CHF exacerbation Heart failure type: unspecified Qualified Code(s): I50.9 - Heart failure, unspecified
[2018-12-23 13:09] LABS: Basophils # (auto) 0.01 K/uL (0-0.2); Basophils % (auto) 0.1 %; Eosinophils # (auto) 0.12 K/uL (0-0.5); Eosinophils % (auto) 1.7 %; Hematocrit (blood only) 24.8 % (37-47); Hemoglobin 8.2 g/dL (12.0-16.0); Immature Granulocytes # (auto) 0.03 K/uL (0.00-0.02); Immature Granulocytes % (auto) 0.4 %; Mean Corpuscular Hgb Conc 33.1 g/dL (32-36); Mean Corpuscular Volume 102.1 fL (80-100); Mean Platelet Volume 10.1 fL (7.4-10.4); Monocytes # (auto) 0.52 K/uL (0.11-0.59); Monocytes % (auto) 7.4 %; Neutrophils # (auto) 4.46 K/uL (1.4-6.5); Neutrophils % (auto) 63.4 %; Platelet Count 214 K/uL (130-400); RDW Coefficient of Variation 14.3 % (11.5-14.5); RDW Standard Deviation 52.8 fL (36.4-46.3); Red Blood Count 2.43 M/uL (4.2-5.4); White Blood Count 7.04 K/uL (4.8-10.8)
[2018-12-23 13:28] LABS: Partial Thromboplastin Ratio 2.2
[2018-12-23 13:36] LABS: Partial Thromboplastin Time 59.2 Seconds (21.0-31.0)
[2018-12-23 13:50] LABS: Albumin Level 2.6 gm/dl (3.4-5.0); BUN Creatinine Ratio 10.9 (10-20); Calcium 7.7 mg/dl (8.5-10.1); Creatinine Clr Calc Pharmacy 14.3 ml/min; Est GFR (Non-African American) 21.6; Magnesium 1.8 mg/dl (1.8-2.4); Potassium 4.5 mmol/L (3.5-5.1)
[2018-12-23 13:56] LABS: Albumin Globulin Ratio 0.8 (0.9-2); Bilirubin,Total 0.4 mg/dl (0.2-1); Globulin 3.4 gm/dl (2.5-4.0)
[2018-12-23] MEDS: CYCLOBENZAPRINE HCL 5 MG TAB PO SCH ×2 (14:14→21:04)
--- NOTE | 2018-12-23 14:59 | Hospitalist Progress Note ---
Date of Service December 23, 2018 Assessment & Plan (1) Non-ST elevated myocardial infarction: -troponins peaked at 0.847 -echocardiogram shows on this admission shows that There is global hypokineses with severe hypokinesis of apical septum and anterior inferior wall -cardiology service has started patient on IV heparin for medical management of anticoagulation -continue aspirin daily, metoprolol succinate as 12.5 mg TID, nifedipine 30 mg daily -continue diuresis; currently 80 mg IV TID Lasix -patient has miller and monitor intake and output closely Acute on Chronic systolic Heart failure -CXR: Cardiomegaly. Small left pleural effusion. Findings of congestive heart failure -echocardiogram with depressed ejection fraction -continue diuresis as above Valvular disease: Moderate Mitral Regurgitation Moderate to Severe Tricuspid Regurgitation -medical management with diuresis as above Hypokalemia -resolved with potassium supplementation -trend serum potassium levels Hypomagnesemia -continue oral magnesium supplements Hyponatremia -serum sodium is 130 on 12/23/18 -likely due to diuretics, monitor Chronic Kidney Disease stage IV -monitor renal function -nephrology consult following in regards to fluid status, diuretic adjustments, and renal function Anemia -Hgb stable above 8 Hypothyroidism -continue home dose levothyroxine Anxiety -ativan prn DVT prophylaxis. Heparin IV Full code Patient's daughter Ms. Soni Domínguez [phone]. Subjective relatively less lower extremity edema today. patient continues to be on nasal cannula. no distress. patient sometimes reporting anxiety. denies chest pain. no abdomen pain. no vomiting Physical Exam Constitutional: + thin Eyes: PERRL, conjunctivae normal, anicteric sclerae EOM intact bilaterally ENMT: external ear and nose normal, oropharynx normal Neck: trachea midline, no thyromegaly normal visual inspection Respiratory: normal respiratory effort Auscultation: + crackles Cardiovascular: Rate/Rhythm: regular rate and regular rhythm Gastrointestinal (Abdomen): normal bowel sounds, soft, nontender, no hepatosplenomegaly Neurologic: PERRL, EOMI, accommodation nl, no face palsy, no dysarthria Psychiatric: Orientation: alert and cooperative Eye Contact: good eye c ontact Mood: + anxious mood Genitourinary: + bladder abnormality (miller in place) Results & Data Vital Signs (Past 12 Hours) Vital Signs Temp Pulse Resp BP BP Pulse Ox 12/23/18 07:04 36.4 C L 84 15 124/70 99 05/16/19 04:00 36.6 C 75 17 115/58 L 99
[2018-12-23] MEDS: MAGNESIUM OXIDE 400 MG TAB PO SCH (15:56)
[2018-12-24] MEDS: NITROGLYCERIN 2% OINTMENT 30GM TUBE EXT SCH ×2 (01:21→05:46)
[2018-12-24 05:18] LABS: Basophils # (auto) 0.03 K/uL (0-0.2); Basophils % (auto) 0.5 %; Eosinophils # (auto) 0.14 K/uL (0-0.5); Eosinophils % (auto) 2.5 %; Hematocrit (blood only) 22.1 % (37-47); Hemoglobin 7.4 g/dL (12.0-16.0); Immature Granulocytes # (auto) 0.01 K/uL (0.00-0.02); Immature Granulocytes % (auto) 0.2 %; Lymphocytes # (auto) 2.34 K/uL (1.2-3.4); Lymphocytes % (auto) 41.7 %; Mean Corpuscular Hgb Conc 33.5 g/dL (32-36); Mean Platelet Volume 9.4 fL (7.4-10.4); Monocytes # (auto) 0.38 K/uL (0.11-0.59); Monocytes % (auto) 6.8 %; Neutrophils # (auto) 2.71 K/uL (1.4-6.5); Neutrophils % (auto) 48.3 %; Platelet Count 188 K/uL (130-400); RDW Coefficient of Variation 13.9 % (11.5-14.5); RDW Standard Deviation 50.7 fL (36.4-46.3); Red Blood Count 2.21 M/uL (4.2-5.4); White Blood Count 5.61 K/uL (4.8-10.8)
[2018-12-24 05:37] LABS: BUN Creatinine Ratio 12.8 (10-20); Calcium 7.6 mg/dl (8.5-10.1); Creatinine Clr Calc Pharmacy 13.9 ml/min; Est GFR (African American) 24.2; Est GFR (Non-African American) 20.9; Magnesium 1.6 mg/dl (1.8-2.4); Potassium 4.1 mmol/L (3.5-5.1)
[2018-12-24 05:39] LABS: RBC Morphology Unremarkable
[2018-12-24 05:40] LABS: Partial Thromboplastin Ratio 1.9
[2018-12-24 05:42] LABS: Partial Thromboplastin Time 52.1 Seconds (21.0-31.0)
[2018-12-24] MEDS: LEVOTHYROXINE SODIUM 88 MCG TABLET PO SCH (06:34)
[2018-12-24] MEDS: HEPARIN SODIUM/DEXTROSE 25,000 UNITS/500 ML BAG IV SCH (06:53)
[2018-12-24] MEDS ORDERED: SODIUM CHLORIDE 0.9% 250 ML IV PRN (06:58)
[2018-12-24 07:01] LABS: Hematocrit (blood only) 23.3 % (37-47); Hemoglobin 7.8 g/dL (12.0-16.0)
[2018-12-24] MEDS: ACETAMINOPHEN 325 MG TAB PO PRN (07:59)
[2018-12-24] MEDS: ATORVASTATIN 10 MG TAB PO SCH (08:00)
[2018-12-24] MEDS: CITALOPRAM 20 MG TAB PO SCH (08:00)
[2018-12-24] MEDS: DOCUSATE SODIUM 100 MG CAP PO SCH ×2 (08:00→20:38)
[2018-12-24] MEDS: METOPROLOL SUCC 25MG EXT REL TAB PO SCH ×3 (08:01→20:38)
[2018-12-24] MEDS: MAGNESIUM OXIDE 400 MG TAB PO SCH ×3 (08:01→20:38)
[2018-12-24] MEDS: PANTOprazole 40 MG TAB PO SCH (08:01)
[2018-12-24] MEDS: CYCLOBENZAPRINE HCL 5 MG TAB PO SCH ×3 (08:02→20:38)
[2018-12-24] MEDS: FUROSEMIDE 80 MG in SYRINGE 0 ML IV SCH ×3 (08:02→20:38)
[2018-12-24] MEDS: ASPIRIN 81 MG ECTAB PO SCH (08:02)
[2018-12-24] MEDS: NIFEdipine EXTENDED REL 30 MG TABCR PO SCH (08:03)
[2018-12-24] MEDS: MAGNESIUM SULFATE / D5W 1 GM/100 ML BAG IV SCH ×2 (09:06→09:51)
--- NOTE | 2018-12-24 09:55 | Cardiology Progress Note ---
Date of Service December 24, 2018 Assessment & Plan (1) CHF exacerbation: Acutely decompensated systolic heart failure possibly in association with fluid resuscitation. Echocardiogram demonstrates decline in overall LV function EF now 35 to 40% with septal and apical wall motion abnormalities. Moderate aortic insufficiency, moderate mitral insufficiency and moderate to severe tricuspid insufficiency also was present. Improved with diuresis receiving transfusion which hopefully will help as well (2) Elevated troponin: Consistent with non-ST segment elevation myocardial infarction versus apical ballooning cardiomyopathy. Continue aspirin and statin and nitrates We will change nitrates to oral Heparin discontinued (3) CKD (chronic kidney disease), stage IV: Outpatient renal function demonstrates creatinines between 1.5 and 2.5. (4) HTN (hypertension): (5) Non-ST elevated myocardial infarction: Subjective Patient seen and examined, chart medications telemetry reviewed. Today is tearful, afraid, concerned about current treatments. But denies chest pain or worsening shortness of breath. Has manifested diuresis overnight. Currently receiving transfusion. No bowel or bladder issues per patient Villegas in place Review of Systems Review of Systems: All systems reviewed & are unremarkable except as noted in HPI & below Physical Exam Eyes: PERRL, conjunctivae normal, anicteric sclerae ENMT: external ear and nose normal, oropharynx normal Neck: trachea midline, no thyromegaly Respiratory: Auscultation: + rales (Bibasilar) Cardiovascular: Rate/Rhythm: regular rate and regular rhythm Heart Sounds: normal S1, normal S2 and + murmur (Grade 2 systolic no audible diastolic); no gallop Vessels: + JVD; no carotid bruit and no abdominal aortic bruit Extremities: + edema (Trace bilateral lower extremity) Gastrointestinal (Abdomen): Percussion/Palpation: abdomen nontender and no hepatosplenomegaly Results & Data Vital Signs (Past 12 Hours) Vital Signs Temp Pulse Pulse Resp BP BP BP 12/24/18 09:28 36.7 C 72 18 123/69 12/24/18 09:13 36.7 C 71 18 123/63 12/24/18 08:58 36.4 C L 75 21 123/74 12/24/18 08:55 36.7 C 71 20 123/67 12/24/18 07:24 36.4 C L 68 22 112/74 12/24/18 03:42 36.3 C L 63 22 124/73 12/23/18 23:15 61 12/23/18 23:11 36.3 C L 63 24 114/59 L Pulse Ox 12/24/18 09:28 99 12/24/18 09:13 12/24/18 08:58 100 12/24/18 08:55 98 12/24/18 07:24 100 12/24/18 03:42 100 12/23/18 23:15 12/23/18 23:11 99 Laboratory Results Laboratory Results - last 24 hr 12/23/18 12/23/18 12/23/18 12:54 12:54 12:54 WBC 7.04 RBC 2.43 L Hgb 8.2 L Hct 24.8 L MCV 102.1 H MCH 33.7 MCHC 33.1 RDW Std Deviation 52.8 H RDW Coeff of Liss 14.3 Plt Count 214 MPV 10.1 Immature Gran % (Auto) 0.4 Neut % (Auto) 63.4 Lymph % (Auto) 27.0 [place] % (Auto) 7.4 Eos % (Auto) 1.7 Baso % (Auto) 0.1 Immature Gran # (Auto) 0.03 H Neut # (Auto) 4.46 Lymph # (Auto) 1.90 [place] # (Auto) 0.52 Eos # (Auto) 0.12 Baso # (Auto) 0.01 RBC Morphology APTT 59.2 H* PTT Ratio 2.2 Sodium 130 L Potassium 4.5 Chloride 99 Carbon Dioxide 27 Anion Gap 4.0 BUN 22 H Creatinine 2.01 H Est Cr Clr Drug Dosing 14.3 Est GFR ( Amer) 25.0 Est GFR (Non-Af Amer) 21.6 BUN/Creatinine Ratio 10.9 Glucose 92 Calcium 7.7 L Magnesium 1.8 Total Bilirubin 0.4 AST 21 ALT 25 Alkaline Phosphatase 80 Total Protein 6.0 L Albumin 2.6 L Globulin 3.4 Albumin/Globulin Ratio 0.8 L Blood Type Antibody Screen Crossmatch 12/24/18 12/24/18 12/24/18 05:02 05:02 05:02 WBC 5.61 RBC 2.21 L Hgb 7.4 L Hct 22.1 L MCV 100.0 MCH 33.5 MCHC 33.5 RDW Std Deviation 50.7 H RDW Coeff of Liss 13.9 Plt Count 188 MPV 9.4 Immature Gran % (Auto) 0.2 Neut % (Auto) 48.3 Lymph % (Auto) 41.7 [place] % (Auto) 6.8 Eos % (Auto) 2.5 Baso % (Auto) 0.5 Immature Gran # (Auto) 0.01 Neut # (Auto) 2.71 Lymph # (Auto) 2.34 [place] # (Auto) 0.38 Eos # (Auto) 0.14 Baso # (Auto) 0.03 RBC Morphology Unremarkable APTT 52.1 H* PTT Ratio 1.9 Sodium 130 L Potassium 4.1 Chloride 97 L Carbon Dioxide 30 Anion Gap 3.0 BUN 26 H Creatinine 2.07 H Est Cr Clr Drug Dosing 13.9 Est GFR ( Amer) 24.2 Est GFR (Non-Af Amer) 20.9 BUN/Creatinine Ratio 12.8 Glucose 82 Calcium 7.6 L Magnesium 1.6 L Total Bilirubin AST ALT Alkaline Phosphatase Total Protein Albumin Globulin Albumin/Globulin Ratio Blood Type Antibody Screen Crossmatch 12/24/18 12/24/18 06:42 07:20 WBC RBC Hgb 7.8 L Hct 23.3 L MCV MCH MCHC RDW Std Deviation RDW Coeff of Liss Plt Count MPV Immature Gran % (Auto) Neut % (Auto) Lymph % (Auto) [place] % (Auto) Eos % (Auto) Baso % (Auto) Immature Gran # (Auto) Neut # (Auto) Lymph # (Auto) [place] # (Auto) Eos # (Auto) Baso # (Auto) RBC Morphology APTT PTT Ratio Sodium Potassium Chloride Carbon Dioxide Anion Gap BUN Creatinine Est Cr Clr Drug Dosing Est GFR ( Amer) Est GFR (Non-Af Amer) BUN/Creatinine Ratio Glucose Calcium Magnesium Total Bilirubin AST ALT Alkaline Phosphatase Total Protein Albumin Globulin Albumin/Globulin Ratio Blood Type O Negative Antibody Screen NEGATIVE Crossmatch See Detail (1) CHF exacerbation Heart failure type: unspecified Qualified Code(s): I50.9 - Heart failure, unspecified
[2018-12-24] MEDS ORDERED: ISOSORBIDE MONO EXTENDED REL 30 MG TABCR PO ONE (10:15)
--- NOTE | 2018-12-24 10:41 | Progress Note ---
DATE: 12/24/2018 NEPHROLOGY PROGRESS NOTE SUBJECTIVE: Overnight, the patient diuresed much better. She made around 1500 mL of urine. She is very anxious and is crying all the time, but looks better with much less edema. PHYSICAL EXAMINATION: VITAL SIGNS: Most recent vital signs shows blood pressure 123/69, pulse rate 72 per minute, temperature afebrile, 99% on 2-liter nasal cannula. HEENT: Mucous membranes moist. NECK: Supple. No jugular venous distention. CHEST: Bilateral decreased breath sounds, but hardly any inspiratory effort, so poor quality exam. CARDIOVASCULAR: S1 and S2, regular. ABDOMEN: Soft, nontender. EXTREMITIES: Shows no edema now. LABORATORY DATA: Laboratory test from this morning is pretty much same as yesterday. BUN is 26, creatinine is 2.07. Sodium 130, potassium 4.1, chloride 97. Hemoglobin is 7.8 and she is getting blood transfusion right now. ASSESSMENT AND PLAN: Baseline chronic kidney disease stage IV, currently admitted with non-ST elevation myocardial infarction as well as congestive heart failure exacerbation. RECOMMENDATIONS: Continue current Lasix 80 IV t.i.d. as she is responding quite well. As of now, based on the blood test, I do not feel she is over diuresed at all as her BUN is only 27 and renal function is holding steady for the last few days. Overall, I think she is looking and feeling slightly better. I do not think she will need dialysis at this time. NITZAD
--- NOTE | 2018-12-24 12:21 | Hospitalist Progress Note ---
Date of Service December 24, 2018 Assessment & Plan (1) Non-ST elevated myocardial infarction: -troponins peaked at 0.847 -echocardiogram shows on this admission shows that There is global hypokineses with severe hypokinesis of apical septum and anterior inferior wall -cardiology service has started patient on IV heparin on 12/22/18 and completed heparin drip on 12/24/18 for medical management of anticoagulation -continue aspirin daily, metoprolol succinate as 12.5 mg TID, nifedipine 30 mg daily -continue diuresis; currently 80 mg IV TID Lasix -patient has miller and monitor intake and output closely -will get 2 view CXR on 12/24/18 Acute on Chronic systolic Heart failure -CXR: Cardiomegaly. Small left pleural effusion. Findings of congestive heart failure -echocardiogram with depressed ejection fraction -continue diuresis; currently 80 mg IV TID Lasix -patient has miller and monitor intake and output closely -will get 2 view CXR on 12/24/18 -based on fluid status and Chest X ray, will have to determine when to transition to oral diuretic and when to remove miller Valvular disease: Moderate Mitral Regurgitation Moderate to Severe Tricuspid Regurgitation -medical management with diuresis as above Hypokalemia -resolved with potassium supplementation -trend serum potassium levels Hypomagnesemia -serum magnesium decreased to 1.6 on 12/24/18 while on daily magnesium supplements; increase oral supplements to BID and 2 grams of IV magnesium given Hyponatremia -serum sodium is 130 on 12/23/18 and stable as 130 on 12/24/18 -likely due to diuretics, monitor Chronic Kidney Disease stage IV -monitor renal function -nephrology consult following in regards to fluid status, diuretic adjustments, and renal function Anemia -Hgb trended below 8 on 12/24/18 while on heparin drip and 1 unit PRBC was transfused -no acute source of bleeding identified at this time Hypothyroidism -continue home dose levothyroxine Anxiety -ativan prn DVT prophylaxis. completed heparin IV from 12/22/18 to 12/24/18. will start SCDs Full code Patient's daughter Ms. Soni Domínguez [phone]. Subjective Patient is off heparin drip as per cardiology. Patient did receive 1 unit or PRBC as her blood counts was trending down while on heparin drip. No obvious sources of bleeding. Patient's lungs sound more clear today. Patient on nasal cannula. Patient denies acute chest pain. she reports she has been able to stand with assistance and ambulate to the bathroom to make bowel movements. She continues to have miller Physical Exam Constitutional: + thin Eyes: PERRL, conjunctivae normal, anicteric sclerae EOM intact bilaterally ENMT: external ear and nose normal, oropharynx normal Neck: trachea midline, no thyromegaly normal visual inspection Respiratory: normal respiratory effort, lungs clear to auscultation Cardiovascular: RRR, no murmur, no edema Gastrointestinal (Abdomen): normal bowel sounds, soft, nontender, no hepatosplenomegaly Neurologic: PERRL, EOMI, accommodation nl, no face palsy, no dysarthria Psychiatric: Orientation: alert and cooperative Eye Contact: good eye contact Mood: + anxious mood Genitourinary: + bladder abnormality (miller in place) Results & Data Vital Signs (Past 12 Hours) Vital Signs Temp Pulse Pulse Resp BP BP BP 12/24/18 11:01 36.7 C 72 20 121/68 12/24/18 10:01 36.7 C 70 20 123/69 12/24/18 09:28 36.7 C 72 18 123/69 12/24/18 09:13 36.7 C 71 18 123/63 12/24/18 08:58 36.4 C L 75 21 123/74 12/24/18 08:55 36.7 C 71 20 123/67 12/24/18 07:24 36.4 C L 68 22 112/74 12/24/18 03:42 36.3 C L 63 22 124/73 Pulse Ox 12/24/18 11:01 100 12/24/18 10:01 12/24/18 09:28 99 12/24/18 09:13 12/24/18 08:58 100 12/24/18 08:55 98 12/24/18 07:24 100 12/24/18 03:42 100
--- NOTE | 2018-12-24 12:57 | XRay Report ---
XR chest 2V routine CLINICAL HISTORY: 88 years-old Female presenting with rule out lung congestion. TECHNIQUE: PA and lateral views of the chest were obtained. COMPARISON: 12/21/2018. FINDINGS: Atherosclerosis of the aortic arch. Cardiac silhouette enlarged. Interstitial thickening. Bilateral l ayering pleural effusions, left greater than right similar to prior. Slight decrease in pulmonary vas cular prominence. Stable to slight improved aeration of the right lung base. Degenerative changes of the thoracic spine. Underlying osteopenia. IMPRESSION: 1. Cardiomegaly with slight decrease in volume overload and congestive change. 2. Persistent layering pleural effusions, left greater than right. 3. Slight improved aeration of the right lung base. Electronically signed by: Thiago Washington M.D. 12/24/2018 12:56 PM
[2018-12-25] MEDS: LEVOTHYROXINE SODIUM 88 MCG TABLET PO SCH (06:02)
[2018-12-25] MEDS: LORazepam 1 MG TAB PO PRN (06:04)
[2018-12-25 06:09] LABS: Basophils # (auto) 0.02 K/uL (0-0.2); Basophils % (auto) 0.4 %; Eosinophils # (auto) 0.11 K/uL (0-0.5); Hematocrit (blood only) 27.6 % (37-47); Hemoglobin 9.4 g/dL (12.0-16.0); Immature Granulocytes # (auto) 0.02 K/uL (0.00-0.02); Immature Granulocytes % (auto) 0.4 %; Lymphocytes # (auto) 1.56 K/uL (1.2-3.4); Lymphocytes % (auto) 28.6 %; Mean Corpuscular Hgb Conc 34.1 g/dL (32-36); Mean Corpuscular Volume 98.6 fL (80-100); Mean Platelet Volume 10.3 fL (7.4-10.4); Monocytes # (auto) 0.44 K/uL (0.11-0.59); Monocytes % (auto) 8.1 %; Neutrophils # (auto) 3.31 K/uL (1.4-6.5); Neutrophils % (auto) 60.5 %; Platelet Count 187 K/uL (130-400); RDW Coefficient of Variation 14.6 % (11.5-14.5); White Blood Count 5.46 K/uL (4.8-10.8)
[2018-12-25 06:36] LABS: Albumin Level 2.6 gm/dl (3.4-5.0); BUN Creatinine Ratio 15.5 (10-20); Calcium 8.3 mg/dl (8.5-10.1); Creatinine Clr Calc Pharmacy 14.6 ml/min; Est GFR (African American) 25.4; Est GFR (Non-African American) 21.9; Magnesium 2.1 mg/dl (1.8-2.4); Potassium 4.1 mmol/L (3.5-5.1)
[2018-12-25 06:39] LABS: Albumin Globulin Ratio 0.8 (0.9-2); Bilirubin,Total 0.4 mg/dl (0.2-1); Globulin 3.2 gm/dl (2.5-4.0); Total Protein 5.8 gm/dl (6.4-8.2)
[2018-12-25] MEDS: DOCUSATE SODIUM 100 MG CAP PO SCH ×2 (07:49→20:13)
[2018-12-25] MEDS: METOPROLOL SUCC 25MG EXT REL TAB PO SCH ×3 (07:49→20:13)
[2018-12-25] MEDS: PANTOprazole 40 MG TAB PO SCH (07:50)
[2018-12-25] MEDS: ATORVASTATIN 10 MG TAB PO SCH (07:50)
[2018-12-25] MEDS: CITALOPRAM 20 MG TAB PO SCH (07:50)
[2018-12-25] MEDS: ASPIRIN 81 MG ECTAB PO SCH (07:51)
[2018-12-25] MEDS: CYCLOBENZAPRINE HCL 5 MG TAB PO SCH ×3 (07:51→20:12)
[2018-12-25] MEDS: MAGNESIUM OXIDE 400 MG TAB PO SCH ×2 (07:52→20:12)
[2018-12-25] MEDS: NIFEdipine EXTENDED REL 30 MG TABCR PO SCH (07:53)
--- NOTE | 2018-12-25 09:39 | Hospitalist Progress Note ---
Date of Service December 25, 2018 Assessment & Plan (1) Non-ST elevated myocardial infarction: -troponins peaked at 0.847 -echocardiogram shows on this admission shows that There is global hypokineses with severe hypokinesis of apical septum and anterior inferior wall -cardiology service has started patient on IV heparin on 12/22/18 and completed heparin drip on 12/24/18 for medical management of anticoagulation -continue aspirin daily, metoprolol succinate as 12.5 mg TID, nifedipine 30 mg daily -2 view CXR on 12/24/18 showing slight decrease in volume overload and congestive change but continues to have bilateral pleural effusions -patient has miller and monitor intake and output closely: further the dietary fluid restriction from 1500 ml daily to 1200 daily starting on 12/25/18 -continue diuresis; currently 80 mg IV TID Lasix Acute on Chronic systolic Heart failure -CXR: Cardiomegaly. Small left pleural effusion. Findings of congestive heart failure -echocardiogram with depressed ejection fraction of 30% to 35% -2 view CXR on 12/24/18 showing slight decrease in volume overload and congestive change but continues to have bilateral pleural effusions -patient has miller and monitor intake and output closely: further the dietary fluid restriction from 1500 ml daily to 1200 daily starting on 12/25/18 -continue diuresis; currently 80 mg IV TID Lasix Valvular Heart disease: Moderate Mitral Regurgitation Moderate to Severe Tricuspid Regurgitation -medical management with diuresis as above Hypokalemia -resolved with potassium supplementation -trend serum potassium levels Hypomagnesemia -serum magnesium decreased to 1.6 on 12/24/18 while on daily magnesium supplements; increase oral supplements to BID and 2 grams of IV magnesium given -serum magnesium is 2.1 on 12/25/18 Hyponatremia -likely due to diuretics -serum sodium is 130 on 12/23/18 and stable as 130 on 12/24/18 -serum sodium is 128 on 12/25/18; discussed with nephrology service and continuing recommendation to use Lasix 80 mg IV TID for improving respiratory status and volume status Chronic Kidney Disease stage IV -monitor renal function -nephrology consult following in regards to fluid status, diuretic adjustments, and renal function Anemia -Hgb trended below 8 on 12/24/18 while on heparin drip and 1 unit PRBC was transfused -no acute source of bleeding identified at this time -Hgb 9.4 on 12/25/18 Hypothyroidism -continue home dose levothyroxine Anxiety -ativan prn -citalopram DVT prophylaxis. completed heparin IV from 12/22/18 to 12/24/18. SCDs Full code Patient's daughter Ms. Soni Domínguez [phone]. Subjective Patient continues to be on nasal cannula. Patient serum sodium is 128. Patient is baseline mental status. awake and alert and responds to questions appropriately. Patient denies chest pain. denies lightheadedness or dizziness. no abdomen pain. no leg pain. there is no leg edema Physical Exam Constitutional: + thin Eyes: PERRL, conjunctivae normal, anicteric sclerae EOM intact bilaterally ENMT: external ear and nose normal, oropharynx normal Neck: trachea midline, no thyromegaly normal visual inspection Respiratory: normal respiratory effort, lungs clear to auscultation normal respiratory effort Auscultation: + crackles Cardiovascular: RRR, no murmur, no edema Gastrointestinal (Abdomen): normal bowel sounds, soft, nontender, no hepatosplenomegaly Musculoskeletal: Head/Neck/Chest: normocephalic and head atraumatic Neurologic: PERRL, EOMI, accommodation nl, no face palsy, no dysarthria Psychiatric: Orientation: alert and cooperative Eye Contact: good eye contact Genitourinary: + bladder abnormality (miller in place) Results & Data Vital Signs (Past 12 Hours) Vital Signs Temp Pulse Pulse Resp BP BP Pulse Ox 12/25/18 08:00 36.7 C 67 73 18 123/60 98 12/25/18 04:10 36.6 C 71 18 124/52 L 99 12/25/18 00:00 12/24/18 23:47 36.6 C 65 16 103/53 L 98 12/24/18 23:14 68 Pulse Ox 12/25/18 08:00 98 12/25/18 04:10 12/25/18 00:00 99 12/24/18 23:47 12/24/18 23:14
--- NOTE | 2018-12-25 09:52 | Nephrology Progress Note ---
Date of Service December 25, 2018 Assessment & Plan (1) CKD (chronic kidney disease), stage IV: Patient with her CKD stage IV with baseline creatinine between 1.6-2. She was admitted with NSTEMI. Creatinine remains stable at 1.99 today. Her electrolytes are stable and no indication for urgent dialysis. We will continue to monitor renal function. -daily bmp -Continue Lasix for volume management -Avoid nephrotoxins unless lifesaving. (2) CHF exacerbation: -cont to hold salt tablets -<2 gm daily Na diet ordered -FR 1.5L/ day -Continue Lasix 80 mg IV 3 times daily ->pls have nursing/PT assess whether pt can do standing wts >> she usually does them in clinic -strict I/O (3) Non-ST elevated myocardial infarction: Continue medical management per cardiology and primary service (4) Anemia, chronic disease: on epo as OP -transferrin sat on 12/08 was 38% -monitor daily -We will give Epogen 10,000units subcutaneous weekly Subjective Patient with CKD stage IV seen in follow-up for volume overload. She is responding well to Lasix and was net -600 mL. She denies shortness of breath this morning. Her leg edema is subsiding. Creatinine is stable at 1.99. Review of Systems Constitutional: + weakness and + anorexia Respiratory: + dyspnea; no cough Cardiovascular: + edema (prior to admission pedal) Gastrointestinal: + early satiety; no abdominal pain, no vomiting and no change in bowel habits Psychiatric: + anxiety (pt worried she will , that she "won't make it past tonight") Physical Exam Physical Exam: General exam: Appears comfortable, no acute distress on oxygen HEENT: Pupils are equal and reactive to light Neck: Elevated JVP, neck is supple trachea is midline Respiratory system: Crackles in the bases bilaterally. Gastrointestinal: Abdomen is soft, non distended, non tender, bowel sounds are present CVS: Regular rate and rhythm. No murmurs, rubs or gallops Musculoskeletal: No joint or muscle tenderness Extremities: Non tender, no edema, peripheral pulses are present Neuro: Oriented, no tremors, no focal neurological deficits Skin: No rashes Results & Data Vital Signs (Past 12 Hours) Vital Signs Temp Pulse Pulse Resp BP BP Pulse Ox 12/25/18 08:00 36.7 C 67 73 18 123/60 98 12/25/18 04:10 36.6 C 71 18 124/52 L 99 12/25/18 00:00 12/24/18 23:47 36.6 C 65 16 103/53 L 98 12/24/18 23:14 68 Pulse Ox 12/25/18 08:00 98 12/25/18 04:10 12/25/18 00:00 99 12/24/18 23:47 12/24/18 23:14 Laboratory Results Laboratory Results - last 24 hr 12/24/18 12/25/18 12/25/18 07:20 05:45 05:45 WBC 5.46 RBC 2.80 L Hgb 9.4 L Hct 27.6 L MCV 98.6 MCH 33.6 MCHC 34.1 RDW Std Deviation 52.0 H RDW Coeff of Liss 14.6 H Plt Count 187 MPV 10.3 Immature Gran % (Auto) 0.4 Neut % (Auto) 60.5 Lymph % (Auto) 28.6 [place] % (Auto) 8.1 Eos % (Auto) 2.0 Baso % (Auto) 0.4 Immature Gran # (Auto) 0.02 Neut # (Auto) 3.31 Lymph # (Auto) 1.56 [place] # (Auto) 0.44 Eos # (Auto) 0.11 Baso # (Auto) 0.02 Sodium 128 L Potassium 4.1 Chloride 91 L Carbon Dioxide 29 Anion Gap 8.0 BUN 31 H Creatinine 1.99 H Est Cr Clr Drug Dosing 14.6 Est GFR ( Amer) 25.4 Est GFR (Non-Af Amer) 21.9 BUN/Creatinine Ratio 15.5 Glucose 86 Calcium 8.3 L Magnesium 2.1 Total Bilirubin 0.4 AST 17 ALT 20 Alkaline Phosphatase 83 Total Protein 5.8 L Albumin 2.6 L Globulin 3.2 Albumin/Globulin Ratio 0.8 L Crossmatch See Detail (1) CHF exacerbation Heart failure type: unspecified Qualified Code(s): I50.9 - Heart failure, unspecified
[2018-12-25] MEDS ORDERED: FUROSEMIDE 80 MG in SYRINGE 0 ML IV ONE (10:30)
--- NOTE | 2018-12-25 10:41 | Cardiology Progress Note ---
Date of Service December 25, 2018 Assessment & Plan (1) CHF exacerbation: Acutely decompensated systolic heart failure with slow improvement with limitations due to chronic renal insufficiency Improved with diuresis (2) Elevated troponin: Consistent with non-ST segment elevation myocardial infarction versus apical ballooning cardiomyopathy. Continue aspirin and statin and beta-maliha as a Heparin discontinued (3) CKD (chronic kidney disease), stage IV: Appreciate nephrology's input (4) HTN (hypertension): (5) Non-ST elevated myocardial infarction: Subjective Patient seen and examined, chart medications and telemetry reviewed. Slightly brighter today no complaints. No chest pain or shortness of breath. No orthopnea. Has manifested some diuresis. No abdominal pain or discomfort no arrhythmias on telemetry Review of Systems Review of Systems: As per HPI Physical Exam Eyes: PERRL, conjunctivae normal, anicteric sclerae ENMT: external ear and nose normal, oropharynx normal Neck: trachea midline, no thyromegaly Respiratory: Auscultation: + rales (Bibasilar) Cardiovascular: Rate/Rhythm: regular rate and regular rhythm Heart Sounds: normal S1, normal S2 and + murmur (Grade 2 systolic no audible diastolic); no gallop Vessels: + JVD; no carotid bruit and no abdominal aortic bruit Extremities: + edema (Trace bilateral lower extremity) Gastrointestinal (Abdomen): Percussion/Palpation: abdomen nontender and no hepatosplenomegaly Results & Data Vital Signs (Past 12 Hours) Vital Signs Temp Pulse Pulse Resp BP BP Pulse Ox 12/25/18 08:00 36.7 C 67 73 18 123/60 98 12/25/18 04:10 36.6 C 71 18 124/52 L 99 12/25/18 00:00 12/24/18 23:47 36.6 C 65 16 103/53 L 98 12/24/18 23:14 68 Pulse Ox 12/25/18 08:00 98 12/25/18 04:10 12/25/18 00:00 99 12/24/18 23:47 12/24/18 23:14 Laboratory Results Laboratory Results - last 24 hr 12/24/18 12/25/18 12/25/18 07:20 05:45 05:45 WBC 5.46 RBC 2.80 L Hgb 9.4 L Hct 27.6 L MCV 98.6 MCH 33.6 MCHC 34.1 RDW Std Deviation 52.0 H RDW Coeff of Liss 14.6 H Plt Count 187 MPV 10.3 Immature Gran % (Auto) 0.4 Neut % (Auto) 60.5 Lymph % (Auto) 28.6 [place] % (Auto) 8.1 Eos % (Auto) 2.0 Baso % (Auto) 0.4 Immature Gran # (Auto) 0.02 Neut # (Auto) 3.31 Lymph # (Auto) 1.56 [place] # (Auto) 0.44 Eos # (Auto) 0.11 Baso # (Auto) 0.02 Sodium 128 L Potassium 4.1 Chloride 91 L Carbon Dioxide 29 Anion Gap 8.0 BUN 31 H Creatinine 1.99 H Est Cr Clr Drug Dosing 14.6 Est GFR ( Amer) 25.4 Est GFR (Non-Af Amer) 21.9 BUN/Creatinine Ratio 15.5 Glucose 86 Calcium 8.3 L Magnesium 2.1 Total Bilirubin 0.4 AST 17 ALT 20 Alkaline Phosphatase 83 Total Protein 5.8 L Albumin 2.6 L Globulin 3.2 Albumin/Globulin Ratio 0.8 L Crossmatch See Detail (1) CHF exacerbation Heart failure type: unspecified Qualified Code(s): I50.9 - Heart failure, unspecified
[2018-12-25] MEDS: FUROSEMIDE 80 MG in SYRINGE 0 ML IV SCH ×2 (14:12→20:12)
[2018-12-25] MEDS: EPOETIN ALFA 10,000 UNITS/ML VIAL SQ SCH (14:13)
[2018-12-26] MEDS: LORazepam 1 MG TAB PO PRN (06:01)
[2018-12-26] MEDS: LEVOTHYROXINE SODIUM 88 MCG TABLET PO SCH (06:01)
[2018-12-26] MEDS: FUROSEMIDE 80 MG in SYRINGE 0 ML IV SCH (07:36)
[2018-12-26] MEDS: CITALOPRAM 20 MG TAB PO SCH (07:37)
[2018-12-26] MEDS: ATORVASTATIN 10 MG TAB PO SCH (07:37)
[2018-12-26] MEDS: NIFEdipine EXTENDED REL 30 MG TABCR PO SCH (07:38)
[2018-12-26] MEDS: DOCUSATE SODIUM 100 MG CAP PO SCH ×2 (07:38→20:27)
[2018-12-26] MEDS: METOPROLOL SUCC 25MG EXT REL TAB PO SCH ×3 (07:38→20:27)
[2018-12-26 07:39] LABS: Basophils # (auto) 0.01 K/uL (0-0.2); Basophils % (auto) 0.2 %; Eosinophils # (auto) 0.07 K/uL (0-0.5); Eosinophils % (auto) 1.3 %; Hematocrit (blood only) 29.3 % (37-47); Hemoglobin 10.1 g/dL (12.0-16.0); Immature Granulocytes # (auto) 0.02 K/uL (0.00-0.02); Immature Granulocytes % (auto) 0.4 %; Lymphocytes # (auto) 0.98 K/uL (1.2-3.4); Lymphocytes % (auto) 18.4 %; Mean Platelet Volume 9.8 fL (7.4-10.4); Monocytes # (auto) 0.55 K/uL (0.11-0.59); Monocytes % (auto) 10.3 %; Neutrophils # (auto) 3.71 K/uL (1.4-6.5); Neutrophils % (auto) 69.4 %; Platelet Count 183 K/uL (130-400); RDW Coefficient of Variation 13.9 % (11.5-14.5); RDW Standard Deviation 48.7 fL (36.4-46.3); Red Blood Count 3.02 M/uL (4.2-5.4); White Blood Count 5.34 K/uL (4.8-10.8)
[2018-12-26] MEDS: PANTOprazole 40 MG TAB PO SCH (07:39)
[2018-12-26] MEDS: MAGNESIUM OXIDE 400 MG TAB PO SCH ×2 (07:42→20:26)
[2018-12-26] MEDS: CYCLOBENZAPRINE HCL 5 MG TAB PO SCH ×3 (07:42→20:26)
[2018-12-26] MEDS: ASPIRIN 81 MG ECTAB PO SCH (07:43)
[2018-12-26 07:55] LABS: Albumin Level 2.6 gm/dl (3.4-5.0); BUN Creatinine Ratio 17.8 (10-20); Calcium 8.3 mg/dl (8.5-10.1); Creatinine Clr Calc Pharmacy 14.4 ml/min; Est GFR (African American) 25.8; Est GFR (Non-African American) 22.3; Potassium 4.1 mmol/L (3.5-5.1)
[2018-12-26 07:58] LABS: Albumin Globulin Ratio 0.8 (0.9-2); Bilirubin,Total 0.3 mg/dl (0.2-1); Globulin 3.4 gm/dl (2.5-4.0)
[2018-12-26 08:09] LABS: Mean Corpuscular Hgb Conc 34.5 g/dL (32-36)
--- NOTE | 2018-12-26 10:30 | Hospitalist Progress Note ---
Date of Service December 26, 2018 Assessment & Plan (1) Non-ST elevated myocardial infarction: -troponins peaked at 0.847 -echocardiogram shows on this admission shows that There is global hypokineses with severe hypokinesis of apical septum and anterior inferior wall -cardiology service has started patient on IV heparin on 12/22/18 and completed heparin drip on 12/24/18 for medical management of anticoagulation -continue aspirin daily, metoprolol succinate as 12.5 mg TID, nifedipine 30 mg daily -2 view CXR on 12/24/18 showing slight decrease in volume overload and congestive change but continues to have bilateral pleural effusions -patient has miller and monitor intake and output closely: further the dietary fluid restriction from 1500 ml daily to 1200 daily starting on 12/25/18 -continue diuresis; currently 80 mg IV TID Lasix Acute on Chronic systolic Heart failure -CXR: Cardiomegaly. Small left pleural effusion. Findings of congestive heart failure -echocardiogram with depressed ejection fraction of 30% to 35% -2 view CXR on 12/24/18 showing slight decrease in volume overload and congestive change but continues to have bilateral pleural effusions -patient has miller and monitor intake and output closely: further the dietary fluid restriction from 1500 ml daily to 1200 daily starting on 12/25/18 -continue diuresis; currently 80 mg IV TID Lasix Valvular Heart disease: Moderate Mitral Regurgitation Moderate to Severe Tricuspid Regurgitation -medical management with diuresis as above Hypokalemia -resolved with potassium supplementation -trend serum potassium levels Hypomagnesemia -serum magnesium decreased to 1.6 on 12/24/18 while on daily magnesium supplements; increase oral supplements to BID and 2 grams of IV magnesium given -serum magnesium is 2.1 on 12/25/18 and 2 on 12/26/18 Hyponatremia -likely due to diuretics -serum sodium is 130 on 12/23/18 and stable as 130 on 12/24/18 -serum sodium is 128 on 12/25/18; discussed with nephrology service and continuing recommendation to use Lasix 80 mg IV TID for improving respiratory status and volume status -serum soidum is 125 on 12/26/18, 1 dose of the 80 mg IV Lasix given. will hold off further IV Lasix today and monitor the serum sodium Chronic Kidney Disease stage IV -monitor renal function -nephrology consult following the patient Anemia -Hgb trended below 8 on 12/24/18 while on heparin drip and 1 unit PRBC was transfused -no acute source of bleeding identified at this time -Hgb 9.4 on 12/25/18, Hgb is 10.1 on 12/26/18 Hypothyroidism -continue home dose levothyroxine Anxiety -ativan prn -citalopram DVT prophylaxis. completed heparin IV from 12/22/18 to 12/24/18. SCDs Full code Patient's daughter Ms. Soni Domínguez [phone]. Subjective patient at mental baseline. she does report she feels sleepy from time to time and 1 episode of left leg cramp yesterday. no leg pain today. serum sodium 125, 1 dose of the IV 80 mg Lasix has been given for the bilateral pleural effusions. discussed plans with patient and nurse about hold off further diuresis today given more hyponatremia. patient denies abdominal pain. no vomiting. miller in place. Physical Exam Constitutional: + thin Eyes: PERRL, conjunctivae normal, anicteric sclerae EOM intact bilaterally ENMT: external ear and nose normal, oropharynx normal Neck: trachea midline, no thyromegaly normal visual inspection Respiratory: normal respiratory effort, lungs clear to auscultation normal respiratory effort Auscultation: + crackles Cardiovascular: RRR, no murmur, no edema Rate/Rhythm: regular rate and regular rhythm Gastrointestinal (Abdomen): normal bowel sounds, soft, nontender, no hepatosplenomegaly Musculoskeletal: Head/Neck/Chest: normocephalic and head atraumatic Neurologic: PERRL, EOMI, accommodation nl, no face palsy, no dysarthria Psychiatric: Orientation: alert and cooperative Eye Contact: good eye contact Genitourinary: + bladder abnormality (miller in place) Results & Data Vital Signs (Past 12 Hours) Vital Signs Temp Pulse Pulse Resp BP BP Pulse Ox 12/26/18 08:00 76 12/26/18 06:56 36.3 C L 70 16 115/73 100 12/26/18 03:29 36.9 C 66 18 112/68 97 12/25/18 23:23 36.5 C 66 18 114/55 L 98 Pulse Ox 12/26/18 08:00 99 12/26/18 06:56 12/26/18 03:29 12/25/18 23:23
--- NOTE | 2018-12-26 11:31 | Cardiology Progress Note ---
Date of Service December 26, 2018 Assessment & Plan (1) CHF exacerbation: Acutely decompensated systolic heart failure with slow improvement with limitations due to chronic renal insufficiency Improved with diuresis (2) Elevated troponin: Consistent with non-ST segment elevation myocardial infarction versus apical ballooning cardiomyopathy. Continue aspirin and statin and beta-maliha We will add low-dose nitrates with Isordil 10 3 times daily Heparin discontinued (3) CKD (chronic kidney disease), stage IV: Appreciate nephrology's input (4) HTN (hypertension): (5) Non-ST elevated myocardial infarction: Subjective Patient seen and examined, chart medications telemetry reviewed. Patient no focal complaints abdominal pain or back pain. Notes no dizziness or lightheadedness has manifested substantial diuresis lower extremity edema has completely resolved Physical Exam Eyes: PERRL, conjunctivae normal, anicteric sclerae ENMT: external ear and nose normal, oropharynx normal Neck: trachea midline, no thyromegaly Respiratory: Auscultation: + rales (Bibasilar) Cardiovascular: Rate/Rhythm: regular rate and regular rhythm Heart Sounds: normal S1, normal S2 and + murmur (Grade 2 systolic no audible diastolic); no gallop Vessels: no carotid bruit and no abdominal aortic bruit Extremities: no edema (Trace bilateral lower extremity) Gastrointestinal (Abdomen): Percussion/Palpation: abdomen nontender and no hepatosplenomegaly Results & Data Vital Signs (Past 12 Hours) Vital Signs Temp Pulse Pulse Resp BP BP Pulse Ox 12/26/18 11:29 36.7 C 72 20 124/67 100 12/26/18 08:00 76 12/26/18 06:56 36.3 C L 70 16 115/73 100 12/26/18 03:29 36.9 C 66 18 112/68 97 Pulse Ox 12/26/18 11:29 12/26/18 08:00 99 12/26/18 06:56 12/26/18 03:29 (1) CHF exacerbation Heart failure type: unspecified Qualified Code(s): I50.9 - Heart failure, unspecified
--- NOTE | 2018-12-26 12:01 | Nephrology Progress Note ---
Date of Service December 26, 2018 Assessment & Plan (1) CKD (chronic kidney disease), stage IV: Patient with her CKD stage IV with baseline creatinine between 1.6-2. She was admitted with NSTEMI. Creatinine remains stable at 1.96 today. Sodium is downtrending at 125 today likely due to volume overload. No indication for urgent dialysis. We will continue to monitor renal function. -daily bmp -Continue Lasix for volume management -Avoid nephrotoxins unless lifesaving. (2) CHF exacerbation: -cont to hold salt tablets -<2 gm daily Na diet ordered -FR 1.5L/ day -Reduce Lasix to 40 mg twice dailycontinue->pls have nursing/PT assess whether pt can do standing wts >> she usually does them in clinic -strict I/O (3) Non-ST elevated myocardial infarction: Continue medical management per cardiology and primary service (4) Anemia, chronic disease: on epo as OP -transferrin sat on 12/08 was 38% -monitor daily -We will continue Epogen 10,000units subcutaneous weekly (5) Hyponatremia: Likely due to volume overload and possibly low solute intake. Encourage increased p.o. intake. Liberalize salt in the diet even though patient has CHF. Continue Lasix 40 mg IV twice daily as above. Monitor input output. I am also checking a serum osmolality and urine osmolality. Present on Admission?: No Subjective Patient with the CKD stage IV and CHF seen in follow-up. She is sitting up in the chair. She reports improvement in her breathing. Leg edema has subsided. Sodium is downtrending to 125 today. Patient does not eat well. Review of Systems Review of Systems: All systems reviewed & are unremarkable except as noted in HPI & below Physical Exam Physical Exam: General exam: Appears comfortable, no acute distress HEENT: Pupils are equal and reactive to light Neck: No JVD, neck is supple trachea is midline Respiratory system: Clear breath sounds bilaterally. Gastrointestinal: Abdomen is soft, non distended, non tender, bowel sounds are present CVS: Regular rate and rhythm. No murmurs, rubs or gallops Musculoskeletal: No joint or muscle tenderness Extremities: Non tender, no edema, peripheral pulses are present Neuro: Oriented, no tremors, no focal neurological deficits Skin: No rashes Results & Data Vital Signs (Past 12 Hours) Vital Signs Temp Pulse Pulse Resp BP BP Pulse Ox 12/26/18 11:29 36.7 C 72 20 124/67 100 12/26/18 08:00 76 12/26/18 06:56 36.3 C L 70 16 115/73 100 12/26/18 03:29 36.9 C 66 18 112/68 97 Pulse Ox 12/26/18 11:29 12/26/18 08:00 99 12/26/18 06:56 12/26/18 03:29 Laboratory Results Laboratory Results - last 24 hr 12/26/18 12/26/18 12/26/18 07:20 07:20 11:14 WBC 5.34 RBC 3.02 L Hgb 10.1 L Hct 29.3 L MCV 97.0 MCH 33.4 MCHC 34.5 RDW Std Deviation 48.7 H RDW Coeff of Liss 13.9 Plt Count 183 MPV 9.8 Immature Gran % (Auto) 0.4 Neut % (Auto) 69.4 Lymph % (Auto) 18.4 [place] % (Auto) 10.3 Eos % (Auto) 1.3 Baso % (Auto) 0.2 Immature Gran # (Auto) 0.02 Neut # (Auto) 3.71 Lymph # (Auto) 0.98 L [place] # (Auto) 0.55 Eos # (Auto) 0.07 Baso # (Auto) 0.01 Sodium 125 L Potassium 4.1 Chloride 87 L Carbon Dioxide 33 H Anion Gap 5.0 BUN 35 H Creatinine 1.96 H Est Cr Clr Drug Dosing 14.4 Est GFR ( Amer) 25.8 Est GFR (Non-Af Amer) 22.3 BUN/Creatinine Ratio 17.8 Glucose 85 Osmolality 268 L Calcium 8.3 L Magnesium 2.0 Total Bilirubin 0.3 AST 18 ALT 19 Alkaline Phosphatase 82 Total Protein 6.0 L Albumin 2.6 L Globulin 3.4 Albumin/Globulin Ratio 0.8 L Urine Osmolality 12/26/18 11:45 WBC RBC Hgb Hct MCV MCH MCHC RDW Std Deviation RDW Coeff of Liss Plt Count MPV Immature Gran % (Auto) Neut % (Auto) Lymph % (Auto) [place] % (Auto) Eos % (Auto) Baso % (Auto) Immature Gran # (Auto) Neut # (Auto) Lymph # (Auto) [place] # (Auto) Eos # (Auto) Baso # (Auto) Sodium Potassium Chloride Carbon Dioxide Anion Gap BUN Creatinine Est Cr Clr Drug Dosing Est GFR ( Amer) Est GFR (Non-Af Amer) BUN/Creatinine Ratio Glucose Osmolality Calcium Magnesium Total Bilirubin AST ALT Alkaline Phosphatase Total Protein Albumin Globulin Albumin/Globulin Ratio Urine Osmolality Pending (1) CHF exacerbation Heart failure type: unspecified Qualified Code(s): I50.9 - Heart failure, unspecified
[2018-12-26] MEDS: ISOSORBIDE DINITRATE 10 MG TAB PO SCH ×2 (12:31→15:53)
[2018-12-26] MEDS: FUROSEMIDE 40 MG in SYRINGE 0 ML IV SCH (15:53)
[2018-12-26] MEDS: SODIUM CHLORIDE 1 GM TABLET PO SCH (21:08)
[2018-12-27] MEDS: LEVOTHYROXINE SODIUM 88 MCG TABLET PO SCH (05:54)
[2018-12-27 06:50] LABS: BUN Creatinine Ratio 19.8 (10-20); Calcium 8.2 mg/dl (8.5-10.1); Creatinine Clr Calc Pharmacy 14.4 ml/min; Est GFR (African American) 25.8; Est GFR (Non-African American) 22.3
[2018-12-27] MEDS: PANTOprazole 40 MG TAB PO SCH (07:59)
[2018-12-27] MEDS: SODIUM CHLORIDE 1 GM TABLET PO SCH (07:59)
[2018-12-27] MEDS: FUROSEMIDE 40 MG in SYRINGE 0 ML IV SCH (07:59)
[2018-12-27] MEDS: NIFEdipine EXTENDED REL 30 MG TABCR PO SCH (07:59)
[2018-12-27] MEDS: CYCLOBENZAPRINE HCL 5 MG TAB PO SCH ×3 (08:00→20:31)
[2018-12-27] MEDS: DOCUSATE SODIUM 100 MG CAP PO SCH ×2 (08:00→20:32)
[2018-12-27] MEDS: CITALOPRAM 20 MG TAB PO SCH (08:00)
[2018-12-27] MEDS: METOPROLOL SUCC 25MG EXT REL TAB PO SCH ×3 (08:00→20:32)
[2018-12-27] MEDS: MAGNESIUM OXIDE 400 MG TAB PO SCH ×2 (08:00→20:31)
[2018-12-27] MEDS: ATORVASTATIN 10 MG TAB PO SCH (08:00)
[2018-12-27] MEDS: ISOSORBIDE DINITRATE 10 MG TAB PO SCH ×3 (08:01→17:09)
[2018-12-27] MEDS: ASPIRIN 81 MG ECTAB PO SCH (08:01)
--- NOTE | 2018-12-27 09:03 | Nephrology Progress Note ---
Date of Service December 27, 2018 Assessment & Plan (1) Hyponatremia: Pt w/ chronic hyponatremia and on salt tabs as OP. Salt tabs were cautiously resumed yesterday d/t worsening serum sodium levels. serum osm on 12/26 268, urine osm 254; no urine Na. I have concerns about continuing salt tabs given TTE findings today and will stop. Her I/O suggest she is 4+ L negative on admission. she had 40 mg IV lasix x 1 on presentation; then 80 mg iv bid from 12/23 AM > 12/26 AM; had extra 80 mg dose IV as well on 12/25; on 12/26 am and on 12/27 am got 40 mg IV; 12/27 PM got 20 mg IV. She has marked volume overload from R > L HF > in her lungs primarily -cont FR 1.2L daily > she is not coming close to this in terms of intake; will look to liberalize once sodium levels stabilize -daily STANDING wts are very important for her care and much appreciated -encourage po intake > protein shakes do not count toward fluid limit -heart healthy diet (3 gm Na rather than 2 gm) ok for now -lowered lasix dosing to 20 mg bid IV -repeat bmp ordered for 1600 ><>> sNa 123; would not make changes but give time to equilibrate in terms of her volume status >>repeat bmp ordered for 2200 >> if sNa 122 or higher, no changes; if sNa 120- 121, give 250 mL D5W; if sNa 119 or less call nephro nondestructive tester -ordered CXR for am as well -follow strict I/O -Likely due to volume overload and possibly low solute intake. Encourage increased p.o. intake. Liberalize salt in the diet even though patient has CHF. Continue Lasix 40 mg IV twice daily as above. Monitor input output. I am also checking a serum osmolality and urine osmolality. Present on Admission?: No (2) CKD (chronic kidney disease), stage IV: CKD stage IV with baseline creatinine between 1.6-2; admitted w/ NSTEMI and new onset systolic HF after recent admission here for conservatively managed SBO >Creatinine remains stable at 1.96 past 72 hrs. Sodium is downtrending at 125 this am and 123 this evening. No indication for urgent dialysis. We will continue to monitor renal function. -daily bmp -Continue Lasix for volume management as above -Avoid nephrotoxins unless lifesaving. Present on Admission?: Yes (3) CHF exacerbation: -hold salt tablets w/ volume OL >> did have dose this am and one last evening -<2 gm daily Na diet ordered -FR 1.2L/ day -Reduce Lasix to 20 mg twice daily >>DAILY STANDING weights very important to manage this pt -strict I/O (4) Non-ST elevated myocardial infarction: Continue medical management per cardiology and primary service (5) Anemia, chronic disease: on epo as OP -transferrin sat on 12/08 was 38% -monitor daily -We will continue Epogen 10,000units subcutaneous weekly Subjective seen on pm rounds w/ daughter at bedside. pt c/o fatigue/ exhaustion, no chest pain or palpitations or edema. minimal po - not hungry. too tired to eat. moved bowels yesterday or day before ; no N or abd pain. remains quite anxious melina that she will ; no thirst; does not believe she is getting protein shake Review of Systems Review of Systems: All systems reviewed & are unremarkable except as noted in HPI & below Physical Exam Constitutional: well developed and + thin on RA slight anxiety > slight distress; A& 0 x3 Eyes: EOM intact bilaterally ENMT: Ears: no external ear abnormality Nose: no external nose abnormality Mouth: + dry oral mucous membranes Neck: no nuchal rigidity Respiratory: normal respiratory effort; no paradoxical thoraco-abdominal movemnt Auscultation: + diminished lung sounds (posteriorly 2/3 way up ); no crackles Cardiovascular: RRR, no murmur, no edema Gastrointestinal (Abdomen): Inspection/Auscultation: normal bowel sounds Percussion/Palpation: abdomen soft; abdomen nontender (slight epigastric/ LUQ) and no guarding Musculoskeletal: Extremities: strength 5/5 throughout maneuvers readily on own power for exam Skin: no rashes, warm and dry + pallor Psychiatric: Orientation: alert, cooperative and + guarded Eye Contact: + fair eye contact Speech: normal rate/rhythm/volume of speech Affect: + anxious affect Insight: + limited insight Judgement: + limited judgement Results & Data Vital Signs (Past 12 Hours) Vital Signs Temp Pulse Resp BP BP Pulse Ox 12/27/18 07:36 36.9 C 58 L 16 137/67 98 12/27/18 04:11 36.7 C 69 18 97/50 L 97 12/26/18 23:11 37.1 C 72 17 117/54 L 97 Laboratory Results Abnormal lab results 12/26/18 12/26/18 12/27/18 Range/Units 11:14 11:45 05:49 Sodium 126 L (136-145) mmol/L Chloride 85 L (98-107) mmol/L Carbon Dioxide 36 H (21-32) mmol/L BUN 39 H (7-18) mg/dl Creatinine 1.96 H (0.6-1.2) mg/dl Osmolality 268 L (280-300) mOsm/kg Calcium 8.2 L (8.5-10.1) mg/dl Urine Osmolality 254 L (500-800) mOsm/kg Diagnostic Findings TTE this am EF 30% moderate [facility] global hypokinesis w/ areas of severe hypokinesis mod-severe TR and RVSP 30-40 mm Hg (1) CHF exacerbation Heart failure type: unspecified Qualified Code(s): I50.9 - Heart failure, unspecified
[2018-12-27] MEDS: ACETAMINOPHEN 325 MG TAB PO PRN ×3 (11:04→21:59)
--- NOTE | 2018-12-27 14:03 | Hospitalist Progress Note ---
Date of Service December 27, 2018 Assessment & Plan (1) Non-ST elevated myocardial infarction: -troponins peaked at 0.847 -echocardiogram shows on this admission shows that There is global hypokineses with severe hypokinesis of apical septum and anterior inferior wall -cardiology service has started patient on IV heparin on 12/22/18 and completed heparin drip on 12/24/18 for medical management of anticoagulation -continue aspirin daily, metoprolol succinate as 12.5 mg TID, nifedipine 30 mg daily -2 view CXR on 12/24/18 showing slight decrease in volume overload and congestive change but continues to have bilateral pleural effusions -patient has miller and monitor intake and output closely: further the dietary fluid restriction from 1500 ml daily to 1200 daily starting on 12/25/18 -IV diuresis with Lasix with Lasix dosing adjustments based on serum sodium levels Acute on Chronic systolic Heart failure -CXR: Cardiomegaly. Small left pleural effusion. Findings of congestive heart failure -echocardiogram with depressed ejection fraction of 30% to 35% -2 view CXR on 12/24/18 showing slight decrease in volume overload and congestive change but continues to have bilateral pleural effusions -patient has miller and monitor intake and output closely: further the dietary fluid restriction from 1500 ml daily to 1200 daily starting on 12/25/18 -IV diuresis with Lasix with Lasix dosing adjustments based on serum sodium level Valvular Heart disease: Moderate Mitral Regurgitation Moderate to Severe Tricuspid Regurgitation -medical management with diuresis as above Hypokalemia -resolved with potassium supplementation -trend serum potassium levels Hypomagnesemia -serum magnesium decreased to 1.6 on 12/24/18 while on daily magnesium supplements; increase oral supplements to BID and 2 grams of IV magnesium given -serum magnesium is stable since 12/25/18 Hyponatremia -likely due to diuretics -serum sodium is 130 on 12/23/18 and stable as 130 on 12/24/18 -serum sodium is 128 on 12/25/18; discussed with nephrology service and continuing recommendation to use Lasix 80 mg IV TID for improving respiratory status and volume status -serum sodium is 125 on 12/26/18, 1 dose of the 80 mg IV Lasix given -serum sodium is 126 on 12/27/18 and nephrology transitioned to 20 mg IV Lasix BID and reducing the salt restrictions in the diet at this time Chronic Kidney Disease stage IV -monitor renal function -nephrology consult following the patient Anemia -Hgb trended below 8 on 12/24/18 while on heparin drip and 1 unit PRBC was transfused -no acute source of bleeding identified at this time -Hgb 9.4 on 12/25/18, Hgb is 10.1 on 12/26/18 Hypothyroidism -continue home dose levothyroxine Anxiety -ativan prn -citalopram DVT prophylaxis. completed heparin IV from 12/22/18 to 12/24/18. SCDs at this time Full code Patient's daughter Ms. Soni Domínguez [phone]. Subjective On my exam, patient's heart rate is around 70 beats per minute. Patient on nasal cannula. reports last bowel movement was yesterday. no vomiting. no fever. no abdomen pain. no lightheadedness or dizziness. baseline mental status Physical Exam Constitutional: + thin Eyes: PERRL, conjunctivae normal, anicteric sclerae EOM intact bilaterally ENMT: external ear and nose normal, oropharynx normal Neck: trachea midline, no thyromegaly normal visual inspection Respiratory: normal respiratory effort (diminished lung sounds at the lung bases bilaterally) Cardiovascular: Rate/Rhythm: regular rate and regular rhythm Gastrointestinal (Abdomen): normal bowel sounds, soft, nontender, no hepatosplenomegaly Musculoskeletal: Head/Neck/Chest: normocephalic and head atraumatic Neurologic: PERRL, EOMI, accommodation nl, no face palsy, no dysarthria Psychiatric: Orientation: alert and cooperative Eye Contact: good eye contact Genitourinary: + bladder abnormality (miller in place) Results & Data Vital Signs (Past 12 Hours) Vital Signs Temp Pulse Resp BP Pulse Ox Pulse Ox 12/27/18 10:57 36.3 C L 44 L 16 127/74 100 12/27/18 08:00 100 12/27/18 07:36 36.9 C 58 L 16 137/67 98 12/27/18 04:11 36.7 C 69 18 97/50 L 97
[2018-12-27 14:37] LABS: BUN Creatinine Ratio 19.6 (10-20); Creatinine Clr Calc Pharmacy 14.1 ml/min; Est GFR (Non-African American) 21.6; Potassium 4.1 mmol/L (3.5-5.1)
[2018-12-27] MEDS: FUROSEMIDE 20 MG in SYRINGE 0 ML IV SCH (17:09)
[2018-12-27 22:32] LABS: BUN Creatinine Ratio 20.3 (10-20); Calcium 8.6 mg/dl (8.5-10.1); Creatinine Clr Calc Pharmacy 13.7 ml/min; Est GFR (African American) 24.3; Potassium 3.9 mmol/L (3.5-5.1)
[2018-12-28] MEDS: LEVOTHYROXINE SODIUM 88 MCG TABLET PO SCH (05:08)
[2018-12-28] MEDS: LORazepam 1 MG TAB PO PRN ×2 (05:08→20:54)
[2018-12-28 06:52] LABS: BUN Creatinine Ratio 21.2 (10-20); Calcium 8.4 mg/dl (8.5-10.1); Creatinine Clr Calc Pharmacy 14.2 ml/min; Est GFR (African American) 25.4; Est GFR (Non-African American) 21.9; Potassium 3.8 mmol/L (3.5-5.1)
--- NOTE | 2018-12-28 08:31 | XRay Report ---
XR chest 2V routine HISTORY: follow up lung infiltrates COMPARISON: Chest 12/24/2018. FINDINGS: No change in the small moderate left pleural effusion and small right pleural effusion. The heart remains mildly enlarged. No pneumothorax. Mild pulmonary edema persists. Bibasilar densities, unchanged. This may represent atelectasis from the pleural effusions. IMPRESSION: No change in the mild interstitial pulmonary edema and bilateral pleural effusions. Electronically signed by: Akash Santoyo M.D. 12/28/2018 8:29 AM
[2018-12-28] MEDS: CITALOPRAM 20 MG TAB PO SCH (08:39)
[2018-12-28] MEDS: DOCUSATE SODIUM 100 MG CAP PO SCH ×2 (08:41→20:51)
[2018-12-28] MEDS: ASPIRIN 81 MG ECTAB PO SCH (08:41)
[2018-12-28] MEDS: CYCLOBENZAPRINE HCL 5 MG TAB PO SCH ×3 (08:41→20:52)
[2018-12-28] MEDS: MAGNESIUM OXIDE 400 MG TAB PO SCH ×2 (08:42→20:52)
[2018-12-28] MEDS: NIFEdipine EXTENDED REL 30 MG TABCR PO SCH (08:42)
[2018-12-28] MEDS: FUROSEMIDE 20 MG in SYRINGE 0 ML IV SCH ×2 (08:42→17:19)
[2018-12-28] MEDS: ATORVASTATIN 10 MG TAB PO SCH (08:42)
[2018-12-28] MEDS: PANTOprazole 40 MG TAB PO SCH (08:43)
[2018-12-28] MEDS: METOPROLOL SUCC 25MG EXT REL TAB PO SCH ×3 (08:43→20:51)
--- NOTE | 2018-12-28 09:25 | Nephrology Progress Note ---
Date of Service December 28, 2018 Assessment & Plan (1) Hyponatremia: Pt w/ chronic hyponatremia and on salt tabs as OP. complex physiologies driving this >> low solute diet, new systolic HF, ? overdiuresis/dehydration. Her I/O suggest she is 5+ L negative on admission. she had 40 mg IV lasix x 1 on presentation; then 80 mg iv bid from 12/23 AM > 12/26 AM; had extra 80 mg dose IV as well on 12/25; on 12/26 am and on 12/27 am got 40 mg IV; 12/27 PM got 20 mg IV. She has marked volume overload from R > L HF > in her lungs primarily -cont FR 1.2L daily > she is not coming close to this in terms of intake; will look to liberalize once sodium levels stabilize -daily STANDING wts are very important for her care and much appreciated -encourage po intake > protein shakes do not count toward fluid limit -heart healthy diet (3 gm Na rather than 2 gm) ok for now -cont lowered lasix dosing to 20 mg bid IV -repeat bmp ordered for 1600 -CXR this am shows no change in mild i-s pulm edema/ effusions BL -follow strict I/O (2) CKD (chronic kidney disease), stage IV: CKD stage IV with baseline creatinine between 1.6-2; admitted w/ NSTEMI and new onset systolic HF after recent admission here for conservatively managed SBO >Creatinine remains stable at about 2 past 72+ hrs. Sodium is downtrending at 125 this am and 123 last evening and improved to 126 today. No indication for urgent dialysis. We will continue to monitor renal function. -daily bmp -Continue Lasix for volume management as above -Avoid nephrotoxins unless lifesaving. (3) CHF exacerbation: -<2 gm daily Na diet ordered -FR 1.2L/ day -continue Reduced Lasix to 20 mg twice daily IV >>DAILY STANDING weights very important to manage this pt -strict I/O (4) Non-ST elevated myocardial infarction: Continue medical management per cardiology and primary service (5) Anemia, chronic disease: on epo as OP -transferrin sat on 12/08 was 38% -monitor daily -We will continue Epogen 10,000units subcutaneous weekly Subjective standing wt from 53.7 > 54.2 yesterday to today. despite wt change pt is 1L negativesNa improved from 123 > 126 overnight Physical Exam Constitutional: well developed and + thin Eyes: EOM intact bilaterally ENMT: Ears: no external ear abnormality Nose: no external nose abnormality Mouth: + dry oral mucous membranes Neck: no nuchal rigidity Respiratory: normal respiratory effort; no paradoxical thoraco-abdominal movemnt Auscultation: + diminished lung sounds (posteriorly 2/3 way up ); no crackles Cardiovascular: RRR, no murmur, no edema Gastrointestinal (Abdomen): Inspection/Auscultation: normal bowel sounds Percussion/Palpation: abdomen soft; abdomen nontender (slight epigastric/ LUQ) and no guarding Musculoskeletal: Extremities: strength 5/5 throughout Skin: no rashes, warm and dry + pallor Psychiatric: Orientation: alert, cooperative and + guarded Eye Contact: + fair eye contact Speech: normal rate/rhythm/volume of speech Affect: + anxious affect Insight: + limited insight Judgement: + limited judgement Results & Data Vital Signs (Past 12 Hours) Vital Signs Temp Pulse Pulse Resp BP BP Pulse Ox 12/28/18 07:21 52 L 12/28/18 07:03 36.4 C L 57 L 18 108/48 L 99 12/28/18 04:24 36.6 C 59 L 18 111/55 L 99 12/28/18 01:29 63 126/54 L 93 12/27/18 23:16 36.4 C L 62 18 91/35 L 90 12/27/18 23:00 60 Laboratory Results Abnormal lab results 12/27/18 12/27/18 12/28/18 Range/Units 14:02 21:46 05:45 Sodium 123 L 124 L 126 L (136-145) mmol/L Chloride 84 L 84 L 83 L (98-107) mmol/L Carbon Dioxide 37 H 35 H 36 H (21-32) mmol/L Anion Gap 2.0 L (3-11) BUN 39 H 42 H 42 H (7-18) mg/dl Creatinine 2.01 H 2.06 H 1.99 H (0.6-1.2) mg/dl BUN/Creatinine Ratio 20.3 H 21.2 H (10-20) Glucose 105 H (70-99) mg/dl Calcium 8.0 L 8.4 L (8.5-10.1) mg/dl (1) CHF exacerbation Heart failure type: unspecified Qualified Code(s): I50.9 - Heart failure, unspecified
[2018-12-28] MEDS: ISOSORBIDE DINITRATE 10 MG TAB PO SCH ×3 (09:43→17:20)
[2018-12-28] MEDS: ACETAMINOPHEN 325 MG TAB PO PRN (12:08)
--- NOTE | 2018-12-28 13:47 | Hospitalist Progress Note ---
Date of Service December 28, 2018 Assessment & Plan (1) Non-ST elevated myocardial infarction: -troponins peaked at 0.847 -echocardiogram shows on this admission shows that There is global hypokineses with severe hypokinesis of apical septum and anterior inferior wall -cardiology service has started patient on IV heparin on 12/22/18 and completed heparin drip on 12/24/18 for medical management of anticoagulation -continue aspirin daily, metoprolol succinate as 12.5 mg TID, nifedipine 30 mg daily -2 view CXR on 12/24/18 showing slight decrease in volume overload and congestive change but continues to have bilateral pleural effusions -patient has miller and monitor intake and output closely: on fluid restriction of 1200 daily starting on 12/25/18 2view CXR on 12/28/18: No change in the small moderate left pleural effusion and small right pleural effusion. The heart remains mildly enlarged. No pneumothorax. Mild pulmonary edema persists. Bibasilar densities, unchanged. This may represent atelectasis from the pleural effusions. -IV diuresis with Lasix with Lasix dosing adjustments based on serum sodium levels and titrate down the nasal cannula oxygen Acute on Chronic systolic Heart failure -CXR: Cardiomegaly. Small left pleural effusion. Findings of congestive heart failure -echocardiogram with depressed ejection fraction of 30% to 35% -2 view CXR on 12/24/18 showing slight decrease in volume overload and congestive change but continues to have bilateral pleural effusions -patient has miller and monitor intake and output closely: further the dietary fluid restriction from 1500 ml daily to 1200 daily starting on 12/25/18 -IV diuresis with Lasix with Lasix dosing adjustments based on serum sodium level Valvular Heart disease: Moderate Mitral Regurgitation Moderate to Severe Tricuspid Regurgitation -medical management with diuresis as above Hypokalemia -resolved with potassium supplementation -trend serum potassium levels Hypomagnesemia -serum magnesium decreased to 1.6 on 12/24/18 while on daily magnesium supplements; increase oral supplements to BID and 2 grams of IV magnesium given -serum magnesium is stable since 12/25/18 Hyponatremia -likely due to diuretics -serum sodium is 130 on 12/23/18 and stable as 130 on 12/24/18 -serum sodium is 128 on 12/25/18; discussed with nephrology service and continuing recommendation to use Lasix 80 mg IV TID for improving respiratory status and volume status -serum sodium is 125 on 12/26/18, 1 dose of the 80 mg IV Lasix given -serum sodium is 126 on 12/27/18 and nephrology transitioned to 20 mg IV Lasix BID and discontinued the salt restrictions in the diet at this time -12/28/18 serum sodium while on current Lasix IV 20 mg BID appears to be stabilizing but serum sodium less than 130, current is 126 Chronic Kidney Disease stage IV -monitor renal function -nephrology consult following the patient Anemia -Hgb trended below 8 on 12/24/18 while on heparin drip and 1 unit PRBC was transfused -no acute source of bleeding identified at this time -Hgb 9.4 on 12/25/18, Hgb is 10.1 on 12/26/18 Hypothyroidism -continue home dose levothyroxine Anxiety -ativan prn -citalopram DVT prophylaxis. completed heparin IV from 12/22/18 to 12/24/18. SCDs at this time Full code Patient's daughter Ms. Soni Domínguez [phone]. Subjective patient on nasal cannula. serum sodium while on current Lasix IV 20 mg BID appears to be stabilizing but serum sodium less than 130. patient at baseline mental status. speaking in full sentences. denies acute pain. legs with stil some bilateral edema. miller continues to be in place. has SCDs Physical Exam Constitutional: + thin Eyes: PERRL, conjunctivae normal, anicteric sclerae EOM intact bilaterally ENMT: external ear and nose normal, oropharynx normal Neck: trachea midline, no thyromegaly normal visual inspection Respiratory: normal respiratory effort, lungs clear to auscultation normal respiratory effort (diminished lung sounds at the lung bases bilaterally) Cardiovascular: RRR, no murmur, no edema Rate/Rhythm: regular rate and regular rhythm Extremities: + edema (bilateral leg edema) Gastrointestinal (Abdomen): normal bowel sounds, soft, nontender, no hepatosplenomegaly Musculoskeletal: Head/Neck/Chest: normocephalic and head atraumatic Neurologic: PERRL, EOMI, accommodation nl, no face palsy, no dysarthria Psychiatric: Orientation: alert and cooperative Eye Contact: good eye contact Genitourinary: + bladder abnormality (miller in place) Results & Data Vital Signs (Past 12 Hours) Vital Signs Temp Pulse Pulse Resp BP BP Pulse Ox 05/21/19 13:02 91 12/28/18 11:42 36.6 C 69 17 116/49 L 99 12/28/18 07:21 52 L 12/28/18 07:03 36.4 C L 57 L 18 108/48 L 99 12/28/18 04:24 36.6 C 59 L 18 111/55 L 99
[2018-12-28 16:49] LABS: BUN Creatinine Ratio 21.4 (10-20); Calcium 7.9 mg/dl (8.5-10.1); Creatinine Clr Calc Pharmacy 14.1 ml/min; Est GFR (Non-African American) 21.6; Potassium 4.3 mmol/L (3.5-5.1)
[2018-12-29 05:58] LABS: Basophils # (auto) 0.02 K/uL (0-0.2); Basophils % (auto) 0.4 %; Eosinophils # (auto) 0.08 K/uL (0-0.5); Eosinophils % (auto) 1.7 %; Hematocrit (blood only) 27.7 % (37-47); Hemoglobin 9.3 g/dL (12.0-16.0); Immature Granulocytes # (auto) 0.02 K/uL (0.00-0.02); Immature Granulocytes % (auto) 0.4 %; Lymphocytes # (auto) 2.15 K/uL (1.2-3.4); Lymphocytes % (auto) 46.9 %; Mean Corpuscular Hgb Conc 33.6 g/dL (32-36); Mean Corpuscular Volume 98.9 fL (80-100); Monocytes # (auto) 0.36 K/uL (0.11-0.59); Monocytes % (auto) 7.9 %; Neutrophils # (auto) 1.95 K/uL (1.4-6.5); Neutrophils % (auto) 42.7 %; Platelet Count 158 K/uL (130-400); RDW Coefficient of Variation 13.6 % (11.5-14.5); RDW Standard Deviation 49.4 fL (36.4-46.3); White Blood Count 4.58 K/uL (4.8-10.8)
[2018-12-29] MEDS: LEVOTHYROXINE SODIUM 88 MCG TABLET PO SCH (06:02)
[2018-12-29 06:37] LABS: BUN Creatinine Ratio 23.6 (10-20); Creatinine Clr Calc Pharmacy 14.4 ml/min; Est GFR (African American) 25.7; Est GFR (Non-African American) 22.1; Potassium 3.9 mmol/L (3.5-5.1)
[2018-12-29] MEDS: DOCUSATE SODIUM 100 MG CAP PO SCH ×2 (08:11→20:13)
[2018-12-29] MEDS: METOPROLOL SUCC 25MG EXT REL TAB PO SCH ×3 (08:12→20:14)
[2018-12-29] MEDS: ISOSORBIDE DINITRATE 10 MG TAB PO SCH ×3 (08:12→17:02)
[2018-12-29] MEDS: PANTOprazole 40 MG TAB PO SCH (08:13)
[2018-12-29] MEDS: CYCLOBENZAPRINE HCL 5 MG TAB PO SCH ×3 (08:13→20:13)
[2018-12-29] MEDS: CITALOPRAM 20 MG TAB PO SCH (08:13)
[2018-12-29] MEDS: MAGNESIUM OXIDE 400 MG TAB PO SCH ×2 (08:13→20:12)
[2018-12-29] MEDS: ATORVASTATIN 10 MG TAB PO SCH (08:13)
[2018-12-29] MEDS: NIFEdipine EXTENDED REL 30 MG TABCR PO SCH (08:13)
[2018-12-29] MEDS: ASPIRIN 81 MG ECTAB PO SCH (08:14)
--- NOTE | 2018-12-29 08:59 | Nephrology Progress Note ---
Date of Service December 29, 2018 Assessment & Plan (1) Hyponatremia: Pt w/ chronic hyponatremia and on salt tabs as OP. complex physiologies driving this >> low solute diet, new systolic HF, R heart failure with marked fluid overload; ? overdiuresis/dehydration. Her I/O suggest she is 5.5 L ne gative on admission. she had 40 mg IV lasix x 1 on presentation; then 80 mg iv bid from 12/23 AM > 12/26 AM; had extra 80 mg dose IV as well on 12/25; on 12/26 am and on 12/27 am got 40 mg IV; 12/27 PM got 20 mg IV. She has marked volume overload from R > L HF > in her lungs primarily; R HF notoriously difficult to diurese -cont FR 1.2L daily > she is not coming close to this in terms of intake; will look to liberalize once sodium levels stabilize -daily STANDING wts are very important for her care and much appreciated -encourage po intake > protein shakes do not count toward fluid limit <> discus sed w/ nursing whose assistance appreciated in encouraging these w/o replacing meal -heart healthy diet (3 gm Na rather than 2 gm) ok for now -cont lowered lasix dosing to 20 mg bid IV -CXR 12/28 am shows no change in mild i-s pulm edema/ effusions BL -follow strict I/O (2) CKD (chronic kidney disease), stage IV: CKD stage IV with baseline creatinine between 1.6-2; admitted w/ NSTEMI and new onset systolic HF after recent admission here for conservatively managed SBO >Creatinine remains stable at about 2 past 72+ hrs. Sodium is downtrending plateau'd mid 120s. No indication for urgent dialysis. We will continue to monitor renal function. -daily bmp -Continue Lasix for volume management as above -Avoid nephrotoxins unless lifesaving. (3) CHF exacerbation: -<2 gm daily Na diet ordered -FR 1.2L/ day -continue Reduced Lasix to 20 mg twice daily IV >>DAILY STANDING weights very important to manage this pt -strict I/O (4) Non-ST elevated myocardial infarction: Continue medical management per cardiology and primary service (5) Anemia, chronic disease: on epo as OP -transferrin sat on 12/08 was 38% -monitor daily -We will continue Epogen 10,000units subcutaneous weekly-given 12/29 Subjective sNa plateau'd at 124 >> pt consistently 1L negative daily x 2 days and 1.8L negative day prior; no standing wt today. pt c/o fatigue/ sleeping all the time; denies worsened fatigue or sob w/ moving from bed to chair this am. minimal po intake but willing to try shakes - wonders what flavors Review of Systems Review of Systems: All systems reviewed & are unremarkable except as noted in HPI & below Respiratory: no dyspnea Cardiovascular: no chest pain, no orthopnea and no edema Gastrointestinal: + early satiety; no nausea and no vomiting Genitourinary: no miller issues Physical Exam Constitutional: well developed and + thin sitting up in chair on 02nc, dosing Eyes: EOM intact bilaterally ENMT: Ears: no external ear abnormality Nose: no external nose abnormality Mouth: + dry oral mucous membranes Neck: no nuchal rigidity Respiratory: normal respiratory effort; no paradoxical thoraco-abdominal movemnt Auscultation: + diminished lung sounds (posteriorly 2/3 way up ); no crackles Cardiovascular: RRR, no murmur, no edema Gastrointestinal (Abdomen): Inspection/Auscultation: normal bowel sounds Percussion/Palpation: abdomen soft; abdomen nontender (slight epigastric/ LUQ) and no guarding Musculoskeletal: Extremities: strength 5/5 throughout Skin: no rashes, warm and dry + pallor Psychiatric: Orientation: alert, cooperative and + guarded Eye Contact: + fair eye contact Speech: normal rate/rhythm/volume of speech Affect: + anxious affect Insight: + limited insight Judgement: + limited judgement Results & Data Vital Signs (Past 12 Hours) Vital Signs Temp Pulse Pulse Resp BP BP Pulse Ox 12/29/18 07:00 36.7 C 62 20 114/75 93 12/29/18 03:33 36.8 C 64 18 114/62 94 12/29/18 00:00 67 12/28/18 23:53 36.4 C L 61 17 118/57 L 97 Laboratory Results Abnormal lab results 12/28/18 12/29/18 12/29/18 Range/Units 16:10 05:37 05:37 WBC 4.58 L (4.8-10.8) K/uL RBC 2.80 L (4.2-5.4) M/uL Hgb 9.3 L (12.0-16.0) g/dL Hct 27.7 L (37-47) % RDW Std Deviation 49.4 H (36.4-46.3) fL Sodium 124 L 124 L (136-145) mmol/L Chloride 82 L 80 L (98-107) mmol/L Carbon Dioxide 37 H 38 H (21-32) mmol/L BUN 43 H 46 H (7-18) mg/dl Creatinine 2.01 H 1.97 H (0.6-1.2) mg/dl BUN/Creatinine Ratio 21.4 H 23.6 H (10-20) Calcium 7.9 L 8.0 L (8.5-10.1) mg/dl (1) CHF exacerbation Heart failure type: unspecified Qualified Code(s): I50.9 - Heart failure, unspecified
--- NOTE | 2018-12-29 09:06 | Hospitalist Progress Note ---
Date of Service delayed entry date of service noted below December 29, 2018 Assessment & Plan (1) Non-ST elevated myocardial infarction: -troponins peaked at 0.847 -echocardiogram shows on this admission shows that There is global hypokineses with severe hypokinesis of apical septum and anterior inferior wall - s/p Heparin drip -continue aspirin daily, metoprolol succinate as 12.5 mg TID, nifedipine 30 mg daily Acute on Chronic systolic Heart failure -CXR: Cardiomegaly. Small left pleural effusion. Findings of congestive heart failure -echocardiogram with depressed ejection fraction of 30% to 35% - repeat CXR: no change in small BP pleural effusion - continue Lasix IV fluid restriction monitor Na Valvular Heart disease: Moderate Mitral Regurgitation Moderate to Severe Tricuspid Regurgitation -medical management with diuresis as above Hyponatremia - multifactorial: CHF, low solue diet - Nephro on board monitor Na closely Hypokalemia - monitor K Hypomagnesemia -stable Chronic Kidney Disease stage IV - crea stable monitor Anemia -Hgb trended below 8 on 12/24/18 while on heparin drip and 1 unit PRBC was transfused - Hg stable so far monitor Hypothyroidism -continue home dose levothyroxine Anxiety -ativan prn -citalopram DVT prophylaxis. completed heparin IV from 12/22/18 to 12/24/18. SCDs at this time Full code Patient's daughter Ms. Soni Domínguez [phone]. Subjective ff up for CHF, hyponatremia seen sitting in bed, comfortable states she feels the same overall denies shortness of breath, chest pain no other new complaints Review of Systems Review of Systems: All systems reviewed & are unremarkable except as noted in HPI & below Physical Exam Physical Exam: General- oriented x 3, not in distress, speaks in sentences with no effort or accessory muscle use Head- atraumatic Eyes- PERRL, EOMI, anicteric ENT- oropharynx clear Neck- supple, no JVD, no adenopathy, no thyromegaly; carotids +2/2, no bruits appreciated Lungs- mild bibasilar rales,no wheezing Heart- normal rate, regular rhythm; no murmur, no gallop, no rub appreciated Abdomen- normal bowel sounds, nondistended, soft, nontender, no masses or hepatosplenomegaly Extremities- no pretibial edema, no calf tenderness; peripheral pulses intact Neuro- alert, oriented x 3; CN 2-12 grossly intact; motor 5/5 bilaterally;sensation 100% on all extremities; no other gross focal neurologic deficits Skin- warm & dry Results & Data Vital Signs (Past 12 Hours) Vital Signs Temp Pulse Pulse Resp BP BP Pulse Ox 12/29/18 07:00 36.7 C 62 20 114/75 93 12/29/18 03:33 36.8 C 64 18 114/62 94 12/29/18 00:00 67 12/28/18 23:53 36.4 C L 61 17 118/57 L 97 Laboratory Results noted and reviewed
[2018-12-29] MEDS ORDERED: EPOETIN ALFA 10,000 UNITS/ML VIAL SQ ONE (09:30)
[2018-12-29] MEDS: FUROSEMIDE 20 MG in SYRINGE 0 ML IV SCH ×2 (09:35→17:02)
[2018-12-29] MEDS: LORazepam 1 MG TAB PO PRN (13:12)
[2018-12-30] MEDS: LEVOTHYROXINE SODIUM 88 MCG TABLET PO SCH (06:21)
[2018-12-30] MEDS: ACETAMINOPHEN 325 MG TAB PO PRN ×2 (06:54→14:12)
[2018-12-30] MEDS: LORazepam 1 MG TAB PO PRN (06:55)
[2018-12-30] MEDS: PANTOprazole 40 MG TAB PO SCH (07:47)
[2018-12-30] MEDS: ISOSORBIDE DINITRATE 10 MG TAB PO SCH ×3 (07:47→16:28)
[2018-12-30] MEDS: NIFEdipine EXTENDED REL 30 MG TABCR PO SCH (07:47)
--- NOTE | 2018-12-30 07:47 | Nephrology Progress Note ---
Date of Service December 30, 2018 Assessment & Plan (1) Hyponatremia: Pt w/ chronic hyponatremia and on salt tabs as OP. complex physiologies driving this >> low solute diet, new systolic HF, R heart failure with marked fluid overload; ? overdiuresis/dehydration. Her I/O suggest she is 5.5 L ne gative on admission. she had 40 mg IV lasix x 1 on presentation; then 80 mg iv bid from 12/23 AM > 12/26 AM; had extra 80 mg dose IV as well on 12/25; on 12/26 am and on 12/27 am got 40 mg IV; 12/27 PM got 20 mg IV. She has marked volume overload from R > L HF > in her lungs primarily; R HF notoriously difficult to diurese -cont FR 1.2L daily > she is not coming close to this in terms of intake; will look to liberalize once sodium levels stabilize -daily STANDING wts are very important for her care and much appreciated -encourage po intake > protein shakes do not count toward fluid limit and should not replace meal -heart healthy diet (3 gm Na rather than 2 gm) ok for now -cont lowered lasix dosing to 20 mg bid IV -CXR 12/28 am shows no change in mild i-s pulm edema/ effusions BL -cont strict I/O >>>f/u labs from today (2) CKD (chronic kidney disease), stage IV: CKD stage IV with baseline creatinine between 1.6-2; admitted w/ NSTEMI and new onset systolic HF after recent admission here for conservatively managed SBO >Creatinine remains stable at about 2 past 72+ hrs. Sodium is downtrending plateau'd mid 120s. No indication for urgent dialysis. We will continue to monitor renal function. -daily bmp -Continue Lasix for volume management as above -Avoid nephrotoxins unless lifesaving. (3) CHF exacerbation: -<2 gm daily Na diet ordered -FR 1.2L/ day -continue Reduced Lasix to 20 mg twice daily IV >>DAILY STANDING weights very important to manage this pt -strict I/O (4) Non-ST elevated myocardial infarction: Continue medical management per cardiology and primary service (5) Anemia, chronic disease: on epo as OP -transferrin sat on 12/08 was 38% -monitor daily -We will continue Epogen 10,000units subcutaneous weekly-given 12/29 Subjective wt trending down > 54.2>53.1 today standing c/w daily negative I/O. labs pending this am; pt c/o back pain and states "I'm not doing so good;" ate most of her breakfast (mostly liquids). Review of Systems Review of Systems: All systems reviewed & are unremarkable except as noted in HPI & below ROS limited by anxiety -- gets worried/despondent w/ much discussion of how she feels Respiratory: no cough and no dyspnea Cardiovascular: no chest pain and no palpitations Gastrointestinal: + early satiety; no nausea, no vomiting and no diarrhea/loose stools Physical Exam Constitutional: well developed and + thin sitting in bed finishing Saavnfst tray on 02nc Eyes: EOM intact bilaterally ENMT: Ears: no external ear abnormality Nose: no external nose abnormality Mouth: + dry oral mucous membranes and + edentulous Neck: no nuchal rigidity Respiratory: normal respiratory effort; no paradoxical thoraco-abdominal movemnt Auscultation: + diminished lung sounds; no crackles Cardiovascular: RRR, no murmur, no edema Gastrointestinal (Abdomen): Inspection/Auscultation: normal bowel sounds Percussion/Palpation: abdomen soft; abdomen nontender and no guarding Musculoskeletal: Extremities: strength 5/5 throughout Skin: no rashes, warm and dry + pallor Neurologic: generalized weakness, slight psychomotor slowing Psychiatric: Orientation: alert, cooperative and + guarded Eye Contact: + fair eye contact Speech: normal rate/rhythm/volume of speech Affect: + anxious affect Insight: + limited insight Judgement: + limited judgement Results & Data Vital Signs (Past 12 Hours) Vital Signs Temp Pulse Resp BP Pulse Ox 12/30/18 07:10 36.4 C L 67 20 108/68 98 12/30/18 03:40 36.4 C L 61 18 93/48 L 97 12/29/18 23:56 36.1 C L 60 16 106/57 L 98 (1) CHF exacerbation Heart failure type: unspecified Qualified Code(s): I50.9 - Heart failure, unspecified
[2018-12-30] MEDS: CYCLOBENZAPRINE HCL 5 MG TAB PO SCH ×3 (07:48→20:32)
[2018-12-30] MEDS: ATORVASTATIN 10 MG TAB PO SCH (07:48)
[2018-12-30] MEDS: CITALOPRAM 20 MG TAB PO SCH (07:48)
[2018-12-30] MEDS: MAGNESIUM OXIDE 400 MG TAB PO SCH ×2 (07:48→20:32)
[2018-12-30] MEDS: ASPIRIN 81 MG ECTAB PO SCH (07:49)
[2018-12-30] MEDS: METOPROLOL SUCC 25MG EXT REL TAB PO SCH ×3 (07:51→20:31)
[2018-12-30] MEDS: FUROSEMIDE 20 MG in SYRINGE 0 ML IV SCH ×2 (07:51→16:28)
[2018-12-30] MEDS: DOCUSATE SODIUM 100 MG CAP PO SCH ×2 (07:52→20:32)
[2018-12-30 08:38] LABS: BUN Creatinine Ratio 24.4 (10-20); Calcium 8.5 mg/dl (8.5-10.1); Creatinine Clr Calc Pharmacy 14.6 ml/min; Est GFR (African American) 26.5; Est GFR (Non-African American) 22.8; Potassium 3.8 mmol/L (3.5-5.1)
--- NOTE | 2018-12-31 05:56 | Hospitalist Progress Note ---
Date of Service delayed entry date of service 12/30/18 December 31, 2018 Assessment & Plan (1) Non-ST elevated myocardial infarction: -troponins peaked at 0.847 -echocardiogram shows on this admission shows that There is global hypokineses with severe hypokinesis of apical septum and anterior inferior wall - s/p Heparin drip -continue aspirin daily, metoprolol succinate as 12.5 mg TID, nifedipine 30 mg daily Acute on Chronic systolic Heart failure -CXR: Cardiomegaly. Small left pleural effusion. Findings of congestive heart failure -echocardiogram with depressed ejection fraction of 30% to 35% - repeat CXR: no change in small BP pleural effusion - diuresed less overnight but Na improved continue Lasix IV fluid restriction monitor Na Valvular Heart disease: Moderate Mitral Regurgitation Moderate to Severe Tricuspid Regurgitation -medical management with diuresis as above Hyponatremia - multifactorial: CHF, low solue diet - Nephro on board monitor Na closely Hypokalemia - monitor K Hypomagnesemia -stable Chronic Kidney Disease stage IV - crea stable monitor Anemia -Hgb trended below 8 on 12/24/18 while on heparin drip and 1 unit PRBC was transfused - Hg stable so far monitor Hypothyroidism -continue home dose levothyroxine Anxiety -ativan prn -citalopram DVT prophylaxis. completed heparin IV from 12/22/18 to 12/24/18. SCDs at this time Full code Patient's daughter Ms. Soni Domínguez [phone]. Disposition patient declines Rehab/SNF anticipate d/c home with HH when medically stable Subjective ff up for CHF, hyponatremia seen resting in bedside chair, comfortable somewhat weak states she feels ok overall denies shortness of breath, chest pain, dizziness, nausea no other symptoms Review of Systems Review of Systems: All systems reviewed & are unremarkable except as noted in HPI & below Physical Exam Physical Exam: General- oriented x 2, not in distress, speaks in sentences with no effort or accessory muscle use Eyes- anicteric Neck- no JVD Lungs- mild rales at the bases, no wheezing Heart- normal rate, regular rhythm; no murmurs Abdomen- normal bowel sounds, nondistended, soft, nontender Extremities- no pretibial edema, no calf tenderness Neuro- alert, oriented x 3; no gross focal neurologic deficits Skin- warm & dry Results & Data Vital Signs (Past 12 Hours) Vital Signs Temp Pulse Pulse Resp BP BP Pulse Ox 12/31/18 03:48 36.6 C 58 L 18 93/45 L 99 12/30/18 23:28 36.4 C L 60 17 95/48 L 99 12/30/18 19:05 36.6 C 55 L 16 91/49 L 98 Laboratory Results noted and reviewed
[2018-12-31] MEDS: LEVOTHYROXINE SODIUM 88 MCG TABLET PO SCH (06:27)
--- NOTE | 2018-12-31 07:13 | XRay Report ---
XR chest 1V portable HISTORY: 88 years-old Female ff up pleural effusion follow-up study in a patient with left pleural e ffusion COMPARISON: Chest radiograph 12/28/2018 TECHNIQUE: Portable AP view of the chest FINDINGS: Cardiac silhouette is enlarged, unchanged. Calcification of the thoracic aortic arch. Mild pulmonary edema with small left and trace right pleural effusions. Persistent left greater than right bibasilar opacities. Degenerative changes of the shoulders and spine. IMPRESSION: 1. Cardiomegaly with unchanged pulmonary edema. 2. Small left and trace right pleural effusions with bibasilar opacities are also unchanged. The above report was generated using voice recognition software. It may contain grammatical, syntax o r spelling errors. Electronically signed by: Lefty Madrid M.D. 12/31/2018 7:12 AM
[2018-12-31 07:46] LABS: BUN Creatinine Ratio 24.4 (10-20); Calcium 8.9 mg/dl (8.5-10.1); Creatinine Clr Calc Pharmacy 12.8 ml/min; Est GFR (African American) 22.3; Est GFR (Non-African American) 19.3; Potassium 4.2 mmol/L (3.5-5.1)
[2018-12-31] MEDS: FUROSEMIDE 20 MG in SYRINGE 0 ML IV SCH (07:47)
[2018-12-31] MEDS: NIFEdipine EXTENDED REL 30 MG TABCR PO SCH (07:48)
[2018-12-31] MEDS: ISOSORBIDE DINITRATE 10 MG TAB PO SCH ×3 (07:48→17:05)
[2018-12-31] MEDS: ASPIRIN 81 MG ECTAB PO SCH (07:48)
[2018-12-31] MEDS: DOCUSATE SODIUM 100 MG CAP PO SCH ×2 (07:48→20:47)
[2018-12-31] MEDS: MAGNESIUM OXIDE 400 MG TAB PO SCH ×2 (07:49→20:47)
[2018-12-31] MEDS: ATORVASTATIN 10 MG TAB PO SCH (07:49)
[2018-12-31] MEDS: CITALOPRAM 20 MG TAB PO SCH (07:49)
--- NOTE | 2018-12-31 07:49 | Nephrology Progress Note ---
Date of Service December 31, 2018 Assessment & Plan (1) Hyponatremia: Pt w/ chronic hyponatremia and on salt tabs as OP. complex physiologies driving hyponatremia >> low solute diet, new systolic HF, R heart failure with marked fluid overload; ? overdiuresis/dehydration. Her I/O suggest she is 5.5 L negative on admission as of 12/30. she had 40 mg IV lasix x 1 on presentation; then 80 mg iv bid from 12/23 AM > 12/26; had extra 80 mg dose IV as well on 12/25; on 12/26 am and on 12/27 am got 40 mg IV; 12/27 PM got 20 mg IV. She has marked volume overload from R > L HF > in her lungs primarily; R HF notoriously difficult to diurese - easy to overshoot -cont FR 1.2L daily > she is not coming close to this in terms of intake; will look to liberalize once sodium levels stabilize -daily STANDING wts are very important for her care and much appreciated > 53.1 on 12/30 > 53.8 12/31 -encourage po intake > protein shakes do not count toward fluid limit and should not replace meal -<2 gm daily Na ordered -cont lowered lasix dosing to 20 mg bid IV > change to 40 mg po bid starting this evening -repeat cxr ordered for am -CXR 12/28 am shows no change in mild i-s pulm edema/ effusions BL -cont strict I/O >>>if Na and creat stable tomorrow, could from renal standpoint be d/c w/ plan for Q Thu/ (or next week /) bmp x 4 wks and d/c on 1.2L FR, <2 gm daily na diet, 40 mg bid lasix po; eval in CKD clinic w/ me or partner in about 4-6 wks; if labs not stable, may need to modify renal d/c plan/recs (2) CKD (chronic kidney disease), stage IV: CKD stage IV with baseline creatinine between 1.6-2; admitted w/ NSTEMI and new onset systolic HF after recent admission here for conservatively managed SBO >Creatinine had beto stable at about 2 for several days then 12/31 increased to 2.2. Sodium is downtrending plateau'd mid 120s. No indication for urgent dialysis. We will continue to monitor renal function. -daily bmp -Continue Lasix for volume management as above -Avoid nephrotoxins unless lifesaving. (3) CHF exacerbation: -<2 gm daily Na diet ordered -FR 1.2L/ day -change to po lasix as above >>DAILY STANDING weights very important to manage this pt -strict I/O (4) Non-ST elevated myocardial infarction: Continue medical management per cardiology and primary service (5) Anemia, chronic disease: on epo as OP -transferrin sat on 12/08 was 38% -monitor daily -We will continue Epogen 10,000units subcutaneous weekly-given 12/29 Subjective seen on rounds this am at 0755; no c/o specifically - less tired, did get up to bedside commode for BM and no specific sob doing this Review of Systems Review of Systems: All systems reviewed & are unremarkable except as noted in HPI & below Constitutional: + fatigue, + weakness and + anorexia Respiratory: no cough and no dyspnea Cardiovascular: no chest pain, no palpitations and no edema Gastrointestinal: + abdominal pain (R sided intermittent) and + early satiety; no vomiting and no change in bowel habits Genitourinary: no issues w/ chronic miller Musculoskeletal: + back pain (intermittent) Physical Exam Constitutional: well developed and + thin sitting in bed on 02nc; nearly empty breakfast tray before her Eyes: EOM intact bilaterally ENMT: Ears: no external ear abnormality Nose: no external nose abnormality Mouth: + dry oral mucous membranes and + edentulous Neck: no nuchal rigidity Respiratory: normal respiratory effort; no paradoxical thoraco-abdominal movemnt Auscultation: + diminished lung sounds; no crackles Cardiovascular: RRR, no murmur, no edema Gastrointestinal (Abdomen): Inspection/Auscultation: normal bowel sounds Percussion/Palpation: abdomen soft; abdomen nontender ((sic)) and no guarding Musculoskeletal: Extremities: strength 5/5 throughout Skin: no rashes, warm and dry + pallor Neurologic: barnhart, fluent/ limited speech; maneuvers readily /nearly independently for exam Psychiatric: Orientation: alert, cooperative and + guarded Eye Contact: + fair eye contact Speech: normal rate/rhythm/volume of speech Affect: + anxious affect Insight: + limited insight Judgement: + limited judgement Results & Data Vital Signs (Past 12 Hours) Vital Signs Temp Pulse Resp BP Pulse Ox 12/31/18 07:46 36.9 C 65 16 102/48 L 99 12/31/18 03:48 36.6 C 58 L 18 93/45 L 99 12/30/18 23:28 36.4 C L 60 17 95/48 L 99 Laboratory Results Abnormal lab results 12/31/18 Range/Units 06:54 Sodium 127 L (136-145) mmol/L Chloride 84 L (98-107) mmol/L Carbon Dioxide 37 H (21-32) mmol/L BUN 54 H (7-18) mg/dl Creatinine 2.21 H (0.6-1.2) mg/dl BUN/Creatinine Ratio 24.4 H (10-20) (1) CHF exacerbation Heart failure type: unspecified Qualified Code(s): I50.9 - Heart failure, unspecified
[2018-12-31] MEDS: METOPROLOL SUCC 25MG EXT REL TAB PO SCH ×3 (07:50→20:48)
[2018-12-31] MEDS: CYCLOBENZAPRINE HCL 5 MG TAB PO SCH ×3 (07:51→20:46)
[2018-12-31] MEDS: PANTOprazole 40 MG TAB PO SCH (07:51)
[2018-12-31] MEDS: LORazepam 1 MG TAB PO PRN ×2 (09:04→21:28)
--- NOTE | 2018-12-31 11:45 | Hospitalist Progress Note ---
Date of Service December 31, 2018 Assessment & Plan (1) Non-ST elevated myocardial infarction: -troponins peaked at 0.847 -echocardiogram shows on this admission shows that There is global hypokineses with severe hypokinesis of apical septum and anterior inferior wall - s/p Heparin drip -continue aspirin daily, metoprolol succinate as 12.5 mg TID, nifedipine 30 mg daily Acute on Chronic systolic Heart failure -CXR: Cardiomegaly. Small left pleural effusion. Findings of congestive heart failure -echocardiogram with depressed ejection fraction of 30% to 35% - repeat CXR: no change in small BP pleural effusion - diuresed well Lasix to be transitioned to PO this evening fluid restriction monitor Na Valvular Heart disease: Moderate Mitral Regurgitation Moderate to Severe Tricuspid Regurgitation -medical management with diuresis as above Hyponatremia - multifactorial: CHF, low solute diet - Na 127 - Nephro on board monitor Na closely Hypokalemia - monitor K Hypomagnesemia -stable Chronic Kidney Disease stage IV - crea stable monitor Anemia -Hgb trended below 8 on 12/24/18 while on heparin drip and 1 unit PRBC was transfused - Hg stable so far monitor Hypothyroidism -continue home dose levothyroxine Anxiety -ativan prn -citalopram DVT prophylaxis. completed heparin IV from 12/22/18 to 12/24/18. SCDs at this time Full code Patient's daughter Ms. Soni Domínguez [phone]. Disposition patient declines Rehab/SNF anticipate d/c home with HH when medically stable Subjective ff up for CHF, hyponatremia seen resting in bed, comfortable no dyspnea, chest pain no new complaints denies other symptoms Review of Systems Review of Systems: All systems reviewed & are unremarkable except as noted in HPI & below Physical Exam Physical Exam: General- oriented x 3, not in distress, speaks in sentences with no effort or accessory muscle use Eyes- anicteric Neck- no JVD Lungs- mild rales right base, clear on the left no wheezing Heart- normal rate, regular rhythm; no murmurs Abdomen- normal bowel sounds, nondistended, soft, nontender Extremities- no pretibial edema, no calf tenderness Neuro- alert, oriented x 3; no gross focal neurologic deficits Skin- warm & dry Results & Data Vital Signs (Past 12 Hours) Vital Signs Temp Pulse Resp BP BP Pulse Ox 12/31/18 10:56 36.5 C 62 16 119/60 94 12/31/18 07:46 36.9 C 65 16 102/48 L 99 12/31/18 03:48 36.6 C 58 L 18 93/45 L 99
[2018-12-31] MEDS: FUROSEMIDE 40 MG TAB PO SCH (17:06)
--- NOTE | 2018-12-31 17:57 | XRay Report ---
XR chest 1V portable HISTORY: Short of breath. f/u volume status/ plm edema COMPARISON: Chest 12/31/2018. FINDINGS: No pneumothorax. Trace right and small left pleural effusions. The heart remains enlarged. Left basilar densities persist. Mild congestive change persists. IMPRESSION: No change in the mild congestive change bilateral pleural effusions and left basilar densities. Electronically signed by: Akash Santoyo M.D. 12/31/2018 5:56 PM
[2019-01-01] MEDS: LEVOTHYROXINE SODIUM 88 MCG TABLET PO SCH (05:55)
[2019-01-01 06:33] LABS: BUN Creatinine Ratio 27.2 (10-20); Calcium 8.8 mg/dl (8.5-10.1); Creatinine Clr Calc Pharmacy 13.6 ml/min; Est GFR (African American) 23.9; Est GFR (Non-African American) 20.6
[2019-01-01] MEDS: CITALOPRAM 20 MG TAB PO SCH (07:38)
[2019-01-01] MEDS: METOPROLOL SUCC 25MG EXT REL TAB PO SCH ×3 (07:38→21:20)
[2019-01-01] MEDS: ATORVASTATIN 10 MG TAB PO SCH (07:38)
[2019-01-01] MEDS: PANTOprazole 40 MG TAB PO SCH (07:38)
[2019-01-01] MEDS: NIFEdipine EXTENDED REL 30 MG TABCR PO SCH (07:38)
[2019-01-01] MEDS: DOCUSATE SODIUM 100 MG CAP PO SCH ×2 (07:39→21:20)
[2019-01-01] MEDS: ASPIRIN 81 MG ECTAB PO SCH (07:39)
[2019-01-01] MEDS: FUROSEMIDE 40 MG TAB PO SCH ×2 (07:39→16:55)
[2019-01-01] MEDS: CYCLOBENZAPRINE HCL 5 MG TAB PO SCH ×3 (07:39→21:21)
[2019-01-01] MEDS: ISOSORBIDE DINITRATE 10 MG TAB PO SCH ×3 (07:39→16:55)
[2019-01-01] MEDS: MAGNESIUM OXIDE 400 MG TAB PO SCH ×2 (07:40→21:18)
[2019-01-01] MEDS: EPOETIN ALFA 10,000 UNITS/ML VIAL SQ SCH (08:09)
[2019-01-01] MEDS: ACETAMINOPHEN 325 MG TAB PO PRN (15:40)
--- NOTE | 2019-01-01 16:00 | Hospitalist Progress Note ---
Date of Service January 01, 2019 Assessment & Plan (1) Non-ST elevated myocardial infarction: -troponins peaked at 0.847 -echocardiogram shows on this admission shows that There is global hypokineses with severe hypokinesis of apical septum and anterior inferior wall - s/p Heparin drip -continue aspirin daily, metoprolol succinate as 12.5 mg TID, nifedipine 30 mg daily Acute on Chronic systolic Heart failure -CXR: Cardiomegaly. Small left pleural effusion. Findings of congestive heart failure -echocardiogram with depressed ejection fraction of 30% to 35% - repeat CXR: no change in small BP pleural effusion - now on Lasix 40mg BID tolerating well fluid restriction monitor Na Valvular Heart disease: Moderate Mitral Regurgitation Moderate to Severe Tricuspid Regurgitation -medical management with diuresis as above Hyponatremia - multifactorial: CHF, low solute diet - Na 129 - Nephro on board monitor Na closely Hypokalemia - monitor K Hypomagnesemia -stable Chronic Kidney Disease stage IV - crea stable monitor Anemia -Hgb trended below 8 on 12/24/18 while on heparin drip and 1 unit PRBC was transfused - Hg stable so far monitor Hypothyroidism -continue home dose levothyroxine Anxiety -ativan prn -citalopram DVT prophylaxis. completed heparin IV from 12/22/18 to 12/24/18. SCDs at this time Full code Patient's daughter Ms. Soni Domínguez [phone]. Disposition patient declines Rehab/SNF anticipate d/c home with HH when medically stable Subjective ff up for hypoNA, CHF seen resting in bed, comfortable not in distress states she continues to feel improved denies dyspnea, chest pain no new complaints Review of Systems Review of Systems: All systems reviewed & are unremarkable except as noted in HPI & below Physical Exam Physical Exam: General- oriented x 3, not in distress, speaks in sentences with no effort or accessory muscle use Eyes- anicteric Neck- no JVD Lungs- mild rales right base, no wheezing Heart- normal rate, regular rhythm; no murmurs Abdomen- normal bowel sounds, nondistended, soft, nontender Extremities- no pretibial edema, no calf tenderness Neuro- alert, oriented x 3; no gross focal neurologic deficits Skin- warm & dry Results & Data Vital Signs (Past 12 Hours) Vital Signs Temp Pulse Pulse Resp BP Pulse Ox 01/01/19 14:09 72 105/46 L 01/01/19 11:55 36.4 C L 73 18 145/49 H 94 01/01/19 07:28 36.6 C 62 20 132/72 97 Laboratory Results Laboratory Results - last 24 hr 01/01/19 05:19 Sodium 129 L Potassium 4.0 Chloride 84 L Carbon Dioxide 39 H Anion Gap 6.0 BUN 57 H Creatinine 2.09 H Est Cr Clr Drug Dosing 13.6 Est GFR ( Amer) 23.9 Est GFR (Non-Af Amer) 20.6 BUN/Creatinine Ratio 27.2 H Glucose 82 Calcium 8.8
--- NOTE | 2019-01-01 18:16 | Progress Note ---
DATE: 01/01/2019 NEPHROLOGY PROGRESS NOTE SUBJECTIVE: Overnight, no new issues. The patient seems relatively stable. She is eating her supper without any problem. She is not on oxygen and does not appear to be in any respiratory distress at rest. OBJECTIVE: VITAL SIGNS: Most recent vital signs show a blood pressure of 109/64, pulse rate 62 per minute, afebrile, 93% on room air. HEENT: Mucous membrane is moist. NECK: Supple. CHEST: Bilateral decreased breath sounds, very poor inspiratory effort. CARDIOVASCULAR: S1 and S2, regular. Soft systolic murmur heard. ABDOMEN: Soft, nontender. EXTREMITIES: Show no edema. LABORATORY TESTS: Reviewed in detail and show stable labs with a low but stable serum sodium and abnormal but stable renal function. ASSESSMENT AND PLAN: An 88-year-old female with multiple renal issues at this time, but they all seem to be stable. 1. Hyponatremia. I would have to call this as her baseline from now on. It is multifactorial in etiology with complex physiologies driving hyponatremia including low solute diet, systolic heart failure, right heart failure, fluid overload in combination. I do not think we can really make her serum sodium completely normal. Continue current management. 2. Chronic kidney disease stage IV. At this time, her kidney function is about baseline and I do not really expect her to get much better from here. 3. Congestive heart failure/non-ST elevation myocardial infarction. She appears quite comfortable and breathing. Continue current management. MTDD
[2019-01-02] MEDS: ISOSORBIDE DINITRATE 10 MG TAB PO SCH ×3 (06:15→16:46)
[2019-01-02] MEDS: LEVOTHYROXINE SODIUM 88 MCG TABLET PO SCH (06:15)
[2019-01-02 06:40] LABS: Basophils # (auto) 0.01 K/uL (0-0.2); Basophils % (auto) 0.2 %; Eosinophils # (auto) 0.15 K/uL (0-0.5); Eosinophils % (auto) 3.5 %; Hematocrit (blood only) 29.2 % (37-47); Hemoglobin 9.9 g/dL (12.0-16.0); Immature Granulocytes # (auto) 0.01 K/uL (0.00-0.02); Immature Granulocytes % (auto) 0.2 %; Lymphocytes # (auto) 2.09 K/uL (1.2-3.4); Lymphocytes % (auto) 48.2 %; Mean Corpuscular Hgb Conc 33.9 g/dL (32-36); Mean Corpuscular Volume 98.3 fL (80-100); Mean Platelet Volume 10.3 fL (7.4-10.4); Monocytes # (auto) 0.44 K/uL (0.11-0.59); Monocytes % (auto) 10.1 %; Neutrophils # (auto) 1.64 K/uL (1.4-6.5); Neutrophils % (auto) 37.8 %; Platelet Count 165 K/uL (130-400); RDW Coefficient of Variation 13.9 % (11.5-14.5); RDW Standard Deviation 49.1 fL (36.4-46.3); Red Blood Count 2.97 M/uL (4.2-5.4); White Blood Count 4.34 K/uL (4.8-10.8)
[2019-01-02 07:12] LABS: BUN Creatinine Ratio 30.2 (10-20); Calcium 8.7 mg/dl (8.5-10.1); Creatinine Clr Calc Pharmacy 14.1 ml/min; Est GFR (Non-African American) 21.6
[2019-01-02] MEDS: DOCUSATE SODIUM 100 MG CAP PO SCH ×2 (08:14→20:15)
[2019-01-02] MEDS: NIFEdipine EXTENDED REL 30 MG TABCR PO SCH (08:16)
[2019-01-02] MEDS: MAGNESIUM OXIDE 400 MG TAB PO SCH ×2 (08:16→20:15)
[2019-01-02] MEDS: CITALOPRAM 20 MG TAB PO SCH (08:16)
[2019-01-02] MEDS: ATORVASTATIN 10 MG TAB PO SCH (08:16)
[2019-01-02] MEDS: PANTOprazole 40 MG TAB PO SCH (08:16)
[2019-01-02] MEDS: ASPIRIN 81 MG ECTAB PO SCH (08:19)
[2019-01-02] MEDS: METOPROLOL SUCC 25MG EXT REL TAB PO SCH ×3 (08:19→20:14)
[2019-01-02] MEDS: FUROSEMIDE 40 MG TAB PO SCH ×2 (08:19→16:46)
[2019-01-02] MEDS: CYCLOBENZAPRINE HCL 5 MG TAB PO SCH ×3 (08:19→20:14)
[2019-01-02] MEDS ORDERED: LEVALBUTEROL HCL 0.63 MG/3 ML NEB NEB STA (10:41)
--- NOTE | 2019-01-02 10:53 | XRay Report ---
XR chest 1V portable HISTORY: shortness of breath, ff up CHF COMPARISON: Chest 12/31/2018. FINDINGS: No pneumothorax. Small left pleural effusion and left basilar densities persist. The right lung is essentially clear. The heart remains mildly enlarged. No evidence for pulmonary edema. IMPRESSION: No change in the small left pleural effusion and left basilar densities. Electronically signed by: Akash Santoyo M.D. 01/02/2019 10:52 AM
[2019-01-02] MEDS: LORazepam 1 MG TAB PO PRN ×2 (12:07→21:05)
[2019-01-02] MEDS: ACETAMINOPHEN 325 MG TAB PO PRN (12:07)
[2019-01-02 13:17] LABS: D Dimer 9500 ug/L FEU (0-500)
--- NOTE | 2019-01-02 14:51 | Ultrasound Report ---
BILATERAL LOWER EXTREMITY VENOUS DOPPLER HISTORY: Bilateral Leg swelling. COMPARISON STUDY: None. FINDINGS: The right common femoral, superficial femoral, popliteal, anterior tibial, and peroneal vei ns are patent. Broken flow within the posterior tibial vein which may represent partial thrombus. The left common femoral and left superficial femoral veins are patent. There is thrombus identified with in the left popliteal vein. The calf vessels were not well visualized. IMPRESSION: 1. Left popliteal vein thrombosis. 2. Probable partial thrombosis of the right posterior tibial vein. Electronically signed by: Akash Santoyo M.D. 01/02/2019 2:49 PM
[2019-01-02] MEDS ORDERED: PANTOprazole 40 MG TAB PO STA (16:01)
--- NOTE | 2019-01-02 17:38 | Hospitalist Progress Note ---
Date of Service January 02, 2019 Assessment & Plan (1) DVT (deep venous thrombosis): (+) BL Popliteal Vein DVTs VQ scan pending HD stable -- discussed with patient's daughter, Hx reviewed no Hx of bleeding -- will start Heparin drip add Protonix for GI Prophylaxis risk factor: poor mobilization secondary to illness (2) Non-ST elevated myocardial infarction: -troponins peaked at 0.847 -echocardiogram shows on this admission shows that There is global hypokineses with severe hypokinesis of apical septum and anterior inferior wall - s/p Heparin drip -continue aspirin daily, metoprolol succinate as 12.5 mg TID, nifedipine 30 mg daily Acute on Chronic systolic Heart failure -CXR: Cardiomegaly. Small left pleural effusion. Findings of congestive heart failure -echocardiogram with depressed ejection fraction of 30% to 35% - repeat CXR: no change in small BP pleural effusion - now on Lasix 40mg BID tolerating well fluid restriction monitor Na Valvular Heart disease: Moderate Mitral Regurgitation Moderate to Severe Tricuspid Regurgitation -medical management with diuresis as above Hyponatremia - multifactorial: CHF, low solute diet - Na 130 - Nephro on board monitor Na closely Hypokalemia - monitor K Hypomagnesemia -stable Chronic Kidney Disease stage IV - crea stable monitor Anemia -Hgb trended below 8 on 12/24/18 while on heparin drip and 1 unit PRBC was transfused - Hg stable so far monitor Hypothyroidism -continue home dose levothyroxine Anxiety -ativan prn -citalopram DVT prophylaxis. on heparin drip Full code Patient's daughter Ms. Soni Domínguez [phone]. Disposition patient declines Rehab/SNF anticipate d/c home with HH when medically stable Subjective ff up for hyponatremia, CHF seen resting in bedside chair states she has dyspnea, no chest pain, dizziness, palpitations, nausea saturating 92% on room air denies other symptoms Review of Systems Review of Systems: All systems reviewed & are unremarkable except as noted in HPI & below Physical Exam Physical Exam: General- oriented x 2, not in distress, speaks in sentences with no effort or accessory muscle use Eyes- anicteric Neck- no JVD Lungs- clear BS BL no rales/wheezes Heart- normal rate, regular rhythm; no murmurs Abdomen- normal bowel sounds, nondistended, soft, nontender Extremities- no pretibial edema, no calf tenderness Neuro- alert, oriented x 2; no gross focal neurologic deficits Skin- warm & dry Results & Data Vital Signs (Past 12 Hours) Vital Signs Temp Pulse Pulse Resp BP BP Pulse Ox 01/02/19 16:00 61 01/02/19 15:47 36.3 C L 62 17 124/44 L 100 01/02/19 12:00 61 01/02/19 11:52 36.6 C 67 19 132/45 L 99 01/02/19 10:54 85 18 97 01/02/19 10:52 95 01/02/19 08:00 61 01/02/19 07:52 36.4 C L 65 17 103/66 96 Laboratory Results Laboratory Results - last 24 hr 01/02/19 01/02/19 01/02/19 06:01 06:01 12:10 WBC 4.34 L RBC 2.97 L Hgb 9.9 L Hct 29.2 L MCV 98.3 MCH 33.3 MCHC 33.9 RDW Std Deviation 49.1 H RDW Coeff of Liss 13.9 Plt Count 165 MPV 10.3 Immature Gran % (Auto) 0.2 Neut % (Auto) 37.8 Lymph % (Auto) 48.2 [place] % (Auto) 10.1 Eos % (Auto) 3.5 Baso % (Auto) 0.2 Immature Gran # (Auto) 0.01 Neut # (Auto) 1.64 Lymph # (Auto) 2.09 [place] # (Auto) 0.44 Eos # (Auto) 0.15 Baso # (Auto) 0.01 D-Dimer 9500 H* Sodium 130 L Potassium 4.0 Chloride 85 L Carbon Dioxide 37 H Anion Gap 8.0 BUN 61 H Creatinine 2.01 H Est Cr Clr Drug Dosing 14.1 Est GFR ( Amer) 25.0 Est GFR (Non-Af Amer) 21.6 BUN/Creatinine Ratio 30.2 H Glucose 80 Calcium 8.7 Troponin I 01/02/19 12:10 WBC RBC Hgb Hct MCV MCH MCHC RDW Std Deviation RDW Coeff of Liss Plt Count MPV Immature Gran % (Auto) Neut % (Auto) Lymph % (Auto) [place] % (Auto) Eos % (Auto) Baso % (Auto) Immature Gran # (Auto) Neut # (Auto) Lymph # (Auto) [place] # (Auto) Eos # (Auto) Baso # (Auto) D-Dimer Sodium Potassium Chloride Carbon Dioxide Anion Gap BUN Creatinine Est Cr Clr Drug Dosing Est GFR ( Amer) Est GFR (Non-Af Amer) BUN/Creatinine Ratio Glucose Calcium Troponin I 0.081 H*
[2019-01-02] MEDS ORDERED: HEPARIN IV BOLUS 4,000 UNITS in SYRINGE 0 ML IV ONE (19:45)
[2019-01-02 20:38] LABS: INR 1.1 (0.9-1.1); Partial Thromboplastin Ratio 0.9; Partial Thromboplastin Time 25.4 Seconds (21.0-31.0); Prothrombin Time 10.9 Seconds (9.0-12.0)
[2019-01-02] MEDS: Heparin Adult STANDARD Wt-Based Dextrose 5% 25,000 units/500 mL IV SCH (21:05)
[2019-01-03 03:32] LABS: BUN Creatinine Ratio 30.1 (10-20); Calcium 8.4 mg/dl (8.5-10.1); Creatinine Clr Calc Pharmacy 13.4 ml/min; Est GFR (African American) 23.5; Est GFR (Non-African American) 20.3; Potassium 3.9 mmol/L (3.5-5.1)
[2019-01-03 05:41] LABS: Partial Thromboplastin Ratio > 5.1
[2019-01-03 05:44] LABS: Partial Thromboplastin Time > 139.0 Seconds (21.0-31.0)
[2019-01-03] MEDS: LEVOTHYROXINE SODIUM 88 MCG TABLET PO SCH (06:09)
[2019-01-03] MEDS: ISOSORBIDE DINITRATE 10 MG TAB PO SCH ×3 (06:09→16:50)
[2019-01-03 07:17] LABS: Partial Thromboplastin Ratio > 5.1
[2019-01-03] MEDS: ATORVASTATIN 10 MG TAB PO SCH (07:24)
[2019-01-03] MEDS: CITALOPRAM 20 MG TAB PO SCH (07:24)
[2019-01-03] MEDS: METOPROLOL SUCC 25MG EXT REL TAB PO SCH ×3 (07:24→20:15)
[2019-01-03] MEDS: DOCUSATE SODIUM 100 MG CAP PO SCH ×2 (07:24→20:16)
[2019-01-03] MEDS: ASPIRIN 81 MG ECTAB PO SCH (07:25)
[2019-01-03] MEDS: CYCLOBENZAPRINE HCL 5 MG TAB PO SCH ×3 (07:25→20:16)
[2019-01-03] MEDS: NIFEdipine EXTENDED REL 30 MG TABCR PO SCH (07:25)
[2019-01-03] MEDS: PANTOprazole 40 MG TAB PO SCH (07:25)
[2019-01-03] MEDS: MAGNESIUM OXIDE 400 MG TAB PO SCH ×2 (07:26→20:16)
[2019-01-03] MEDS: FUROSEMIDE 40 MG TAB PO SCH ×2 (07:26→16:50)
[2019-01-03 07:29] LABS: Partial Thromboplastin Time > 139.0 Seconds (21.0-31.0)
[2019-01-03 08:25] LABS: Partial Thromboplastin Time 81.4 Seconds (21.0-31.0)
[2019-01-03] MEDS ORDERED: PANTOprazole 40 MG TAB PO SCH (09:00)
--- NOTE | 2019-01-03 10:31 | Nuclear Medicine Report ---
Study: Perfusion CT exam HISTORY: Pain. Dyspnea. FINDINGS: Perfusion defects involving a significant component of the left hemithorax. This is technic ally indeterminant at the left base. Mild in homogeneity perfusion of the right lung with diminished perfusion posterior gastric angle. IMPRESSION: Bilateral perfusion defects suggesting a moderate to high probability of pulmonary embolu s. Electronically signed by: Rob Mike M.D. 01/03/2019 10:30 AM
--- NOTE | 2019-01-03 14:33 | Progress Note ---
DATE: 01/03/2019 NEPHROLOGY PROGRESS NOTE SUBJECTIVE: Overnight, now Diagnosed with DVt and ? PE on heparin drip now. C/o Chest pain and ? Sob. It is hard to obtain any meaningful history from the patient. OBJECTIVE: GENERAL: She is resting comfortably without any oxygen and does not appear to be in any respiratory distress at rest. VITAL SIGNS: Most recent blood pressure is 108,/46 pulse rate 78, temperature 36.4, 96% on 2 liters, 93% on room air. HEENT: Mucous membrane is moist. NECK: Supple. No jugular venous distention. CHEST: Bilateral decreased breath sounds, occasional crackles, very poor inspiratory effort and poor quality exam. CARDIOVASCULAR: S1 and S2, regular. Systolic murmur heard, 3/6. ABDOMEN: Soft, nontender. EXTREMITIES: Shows no edema. LABORATORY TESTS: Reviewed in detail and appears overall abnormal, but stable. Sodium this morning was 130, potassium 3.9, chloride 88, CO2 of 39, BUN 64, creatinine 2.12, hemoglobin 9.9, platelet count 165. She had a VQ scanning done which showed a moderately high probability of pulmonary embolus. Lower extremity Doppler did show DVT. ASSESSMENT AND PLAN: An 88-year-old female who has been in the hospital now for many days with multiple renal issues at this time. 1. Hyponatremia. I do not think we can get her sodium any higher than what it is now. The etiology is multifactorial and complicated interrelated. 2. Chronic kidney disease stage IV. At this time, her kidney function is about baseline. I do not really expect her to get a whole lot better from here. 3. New onset deep venous thrombosis/pulmonary embolism. She has been started on heparin at this time for the deep venous thrombosis and pulmonary embolism. Overall, prognosis of this elderly patient with so many medical problems is very poor. She will not be a dialysis candidate if such need arise. BRANDON
[2019-01-03 14:40] LABS: Partial Thromboplastin Ratio 3.4
[2019-01-03 14:48] LABS: Partial Thromboplastin Time 93.3 Seconds (21.0-31.0)
--- NOTE | 2019-01-03 17:44 | Hospitalist Progress Note ---
Date of Service January 03, 2019 Assessment & Plan (1) DVT (deep venous thrombosis): (+) BL Popliteal Vein DVTs VQ scan: Bilateral perfusion defects suggesting a moderate to high probability of pulmonary embolus. HD stable -- discussed with patient's daughter, Hx reviewed no Hx of bleeding --Started heparin drip 01/02/2019 Start Coumadin 3 mg p.o. daily monitor INR daily Patient will need to be admitted until INR therapeutic, cannot to Lovenox bridge secondary to CKD stage IV-V added Protonix for GI Prophylaxis risk factor: poor mobilization secondary to illness --Tolerating heparin well Monitor hemoglobin (2) Non-ST elevated myocardial infarction: -troponins peaked at 0.847 -echocardiogram shows on this admission shows that There is global hypokineses with severe hypokinesis of apical septum and anterior inferior wall - s/p Heparin drip -continue aspirin daily, metoprolol succinate as 12.5 mg TID, nifedipine 30 mg daily Acute on Chronic systolic Heart failure -CXR: Cardiomegaly. Small left pleural effusion. Findings of congestive heart failure -echocardiogram with depressed ejection fraction of 30% to 35% - repeat CXR: no change in small BP pleural effusion - now on Lasix 40mg BID tolerating well fluid restriction monitor Na Valvular Heart disease: Moderate Mitral Regurgitation Moderate to Severe Tricuspid Regurgitation -medical management with diuresis as above Hyponatremia - multifactorial: CHF, low solute diet - Na 130 - Nephro on board monitor Na closely Hypokalemia - monitor K Hypomagnesemia -stable Chronic Kidney Disease stage IV - crea stable monitor Anemia -Hgb trended below 8 on 12/24/18 while on heparin drip and 1 unit PRBC was transfused - Hg stable so far monitor Hypothyroidism -continue home dose levothyroxine Anxiety -ativan prn -citalopram DVT prophylaxis. on heparin drip Full code Patient's daughter Ms. Soni Domínguez [phone]. Disposition patient declines Rehab/SNF anticipate d/c home with HH when medically stable, INR therapeutic Subjective Follow-up for COPD exacerbation, hyponatremia, DVTs Seen sitting up in bed, comfortable Reports intermittent shortness of breath, denies chest pain No other new complaints No bleeding per director staffing Review of Systems Review of Systems: All systems reviewed & are unremarkable except as noted in HPI & below Physical Exam Physical Exam: General- oriented x 2, not in distress, speaks in sentences with no effort or accessory muscle use Eyes- anicteric Neck- no JVD Lungs-mild rales bilaterally, no wheezing bilaterally Heart- normal rate, regular rhythm; no murmurs Abdomen- normal bowel sounds, nondistended, soft, nontender Extremities- no pretibial edema, no calf tenderness Neuro- alert, oriented x 2; no gross focal neurologic deficits Skin- warm & dry Results & Data Vital Signs (Past 12 Hours) Vital Signs Temp Pulse Pulse Resp BP BP Pulse Ox 01/03/19 15:13 36.6 C 65 16 134/71 100 01/03/19 11:34 78 96 01/03/19 11:33 36.4 C L 112 H 18 108/46 L 90 01/03/19 06:47 36.5 C 53 L 16 108/48 L 98 Laboratory Results Laboratory Results - last 24 hr 01/02/19 01/03/19 01/03/19 20:13 03:00 03:00 PT 10.9 INR 1.1 APTT 25.4 Cancelled PTT Ratio 0.9 Cancelled Sodium 130 L Potassium 3.9 Chloride 88 L Carbon Dioxide 39 H Anion Gap 3.0 BUN 64 H Creatinine 2.12 H Est Cr Clr Drug Dosing 13.4 Est GFR ( Amer) 23.5 Est GFR (Non-Af Amer) 20.3 BUN/Creatinine Ratio 30.1 H Glucose 82 POC Glucose Calcium 8.4 L 01/03/19 01/03/19 01/03/19 04:28 06:42 07:37 PT INR APTT > 139.0 H* > 139.0 H* 81.4 H* PTT Ratio > 5.1 > 5.1 3.0 Sodium Potassium Chloride Carbon Dioxide Anion Gap BUN Creatinine Est Cr Clr Drug Dosing Est GFR ( Amer) Est GFR (Non-Af Amer) BUN/Creatinine Ratio Glucose POC Glucose Calcium 01/03/19 01/03/19 01/03/19 11:14 14:07 15:59 PT INR APTT 93.3 H* PTT Ratio 3.4 Sodium Potassium Chloride Carbon Dioxide Anion Gap BUN Creatinine Est Cr Clr Drug Dosing Est GFR ( Amer) Est GFR (Non-Af Amer) BUN/Creatinine Ratio Glucose POC Glucose 90 105 H Calcium
[2019-01-03] MEDS: WARFARIN SOD 3 MG TAB PO SCH (18:50)
[2019-01-03] MEDS: LORazepam 1 MG TAB PO PRN (19:31)
[2019-01-03 20:35] LABS: Partial Thromboplastin Ratio 2.2
[2019-01-03] MEDS: Heparin Adult STANDARD Wt-Based Dextrose 5% 25,000 units/500 mL IV SCH (22:57)
[2019-01-04] MEDS: LEVOTHYROXINE SODIUM 88 MCG TABLET PO SCH (05:45)
[2019-01-04 06:23] LABS: Hematocrit (blood only) 29.2 % (37-47); Hemoglobin 9.7 g/dL (12.0-16.0); Mean Corpuscular Hgb Conc 33.2 g/dL (32-36); Mean Platelet Volume 10.4 fL (7.4-10.4); Platelet Count 159 K/uL (130-400); RDW Coefficient of Variation 14.3 % (11.5-14.5); Red Blood Count 2.89 M/uL (4.2-5.4)
[2019-01-04 06:43] LABS: Partial Thromboplastin Ratio 2.3
[2019-01-04 06:56] LABS: BUN Creatinine Ratio 28.9 (10-20); Calcium 8.4 mg/dl (8.5-10.1); Creatinine Clr Calc Pharmacy 13.8 ml/min; Est GFR (African American) 24.3; Potassium 4.4 mmol/L (3.5-5.1)
[2019-01-04] MEDS: ISOSORBIDE DINITRATE 10 MG TAB PO SCH ×3 (07:50→16:31)
[2019-01-04] MEDS: CYCLOBENZAPRINE HCL 5 MG TAB PO SCH ×3 (09:25→19:39)
[2019-01-04] MEDS: MAGNESIUM OXIDE 400 MG TAB PO SCH ×2 (09:27→19:39)
[2019-01-04] MEDS: PANTOprazole 40 MG TAB PO SCH (09:27)
[2019-01-04] MEDS: NIFEdipine EXTENDED REL 30 MG TABCR PO SCH ×2 (09:27→09:42)
[2019-01-04] MEDS: METOPROLOL SUCC 25MG EXT REL TAB PO SCH ×3 (09:27→19:39)
[2019-01-04] MEDS: ATORVASTATIN 10 MG TAB PO SCH (09:28)
[2019-01-04] MEDS: DOCUSATE SODIUM 100 MG CAP PO SCH ×2 (09:28→19:39)
[2019-01-04] MEDS: ASPIRIN 81 MG ECTAB PO SCH (09:28)
[2019-01-04] MEDS: CITALOPRAM 20 MG TAB PO SCH (09:28)
[2019-01-04] MEDS: FUROSEMIDE 40 MG TAB PO SCH ×2 (09:28→16:31)
[2019-01-04] MEDS: Heparin Adult STANDARD Wt-Based Dextrose 5% 25,000 units/500 mL IV SCH (11:54)
[2019-01-04 12:08] LABS: INR 1.1 (0.9-1.1)
[2019-01-04] MEDS: ACETAMINOPHEN 325 MG TAB PO PRN ×2 (13:05→19:39)
[2019-01-04] MEDS: WARFARIN SOD 3 MG TAB PO SCH (16:30)
--- NOTE | 2019-01-04 18:20 | Hospitalist Progress Note ---
Date of Service January 04, 2019 Assessment & Plan (1) DVT (deep venous thrombosis): (+) BL Popliteal Vein DVTs VQ scan: Bilateral perfusion defects suggesting a moderate to high probability of pulmonary embolus. HD stable -- discussed with patient's daughter, Hx reviewed no Hx of bleeding --Started heparin drip 01/02/2019 Started Coumadin 3 mg p.o. daily monitor INR daily Patient will need to be admitted until INR therapeutic, cannot to Lovenox bridge secondary to CKD stage IV-V added Protonix for GI Prophylaxis risk factor: poor mobilization secondary to illness --Tolerating heparin well Monitor hemoglobin -- INR 1.1 continue heparin + coumadin (2) Non-ST elevated myocardial infarction: -troponins peaked at 0.847 -echocardiogram shows on this admission shows that There is global hypokineses with severe hypokinesis of apical septum and anterior inferior wall -continue aspirin daily, metoprolol succinate as 12.5 mg TID, nifedipine 30 mg daily Acute on Chronic systolic Heart failure -CXR: Cardiomegaly. Small left pleural effusion. Findings of congestive heart failure -echocardiogram with depressed ejection fraction of 30% to 35% - repeat CXR: no change in small BP pleural effusion - now on Lasix 40mg BID tolerating well fluid restriction monitor Na Valvular Heart disease: Moderate Mitral Regurgitation Moderate to Severe Tricuspid Regurgitation -medical management with diuresis as above Hyponatremia - multifactorial: CHF, low solute diet - Na 128 - Nephro on board monitor Na closely Hypokalemia - monitor K Hypomagnesemia -stable Chronic Kidney Disease stage IV - crea stable monitor Anemia -Hgb trended below 8 on 12/24/18 while on heparin drip and 1 unit PRBC was transfused - Hg stable so far monitor Hypothyroidism -continue home dose levothyroxine Anxiety -ativan prn -citalopram DVT prophylaxis. on heparin drip Full code Patient's daughter Ms. Soni Domínguez [phone]. Disposition may need to d/c to SNF when medically stable, INR therapeutic continue PT /OT eval Subjective Follow-up for COPD, CHF, PE and DVT Seen sitting up in bedside chair, more comfortable Denies shortness of breath, chest pain today No bleeding Denies leg pain No other symptoms Review of Systems Review of Systems: All systems reviewed & are unremarkable except as noted in HPI & below Physical Exam Physical Exam: General- oriented x 2, not in distress, speaks in sentences with no effort or accessory muscle use Eyes- anicteric Neck- no JVD Lungs- clear breath sounds bilaterally, no crackles or wheezing noted Heart- normal rate, regular rhythm; no murmurs Abdomen- normal bowel sounds, nondistended, soft, nontender Extremities- no pretibial edema, no calf tenderness Neuro- alert, oriented x 3; no gross focal neurologic deficits Skin- warm & dry Results & Data Vital Signs (Past 12 Hours) Vital Signs Temp Pulse Resp BP BP Pulse Ox 01/04/19 15:07 36.6 C 60 17 120/56 L 100 01/04/19 11:22 36.6 C 65 16 103/53 L 99 01/04/19 07:54 136/44 L 01/04/19 06:56 57 L 17 98/46 L 99 Laboratory Results Laboratory Results - last 24 hr 01/03/19 01/03/19 01/04/19 20:02 20:08 05:37 WBC RBC Hgb Hct MCV MCH MCHC RDW Std Deviation RDW Coeff of Liss Plt Count MPV PT INR APTT 60.0 H* PTT Ratio 2.2 Sodium 128 L Potassium 4.4 Chloride 86 L Carbon Dioxide 37 H Anion Gap 5.0 BUN 59 H Creatinine 2.06 H Est Cr Clr Drug Dosing 13.8 Est GFR ( Amer) 24.3 Est GFR (Non-Af Amer) 21.0 BUN/Creatinine Ratio 28.9 H Glucose 77 POC Glucose 118 H Calcium 8.4 L 01/04/19 01/04/19 01/04/19 05:37 05:37 05:37 WBC 4.80 RBC 2.89 L Hgb 9.7 L Hct 29.2 L MCV 101.0 H MCH 33.6 MCHC 33.2 RDW Std Deviation 52.0 H RDW Coeff of Liss 14.3 Plt Count 159 MPV 10.4 PT 11.0 INR 1.1 APTT 62.0 H* PTT Ratio 2.3 Sodium Potassium Chloride Carbon Dioxide Anion Gap BUN Creatinine Est Cr Clr Drug Dosing Est GFR ( Amer) Est GFR (Non-Af Amer) BUN/Creatinine Ratio Glucose POC Glucose Calcium 01/04/19 01/04/19 01/04/19 07:24 11:04 16:16 WBC RBC Hgb Hct MCV MCH MCHC RDW Std Deviation RDW Coeff of Liss Plt Count MPV PT INR APTT PTT Ratio Sodium Potassium Chloride Carbon Dioxide Anion Gap BUN Creatinine Est Cr Clr Drug Dosing Est GFR ( Amer) Est GFR (Non-Af Amer) BUN/Creatinine Ratio Glucose POC Glucose 97 92 97 Calcium
--- NOTE | 2019-01-04 19:44 | Nephrology Progress Note ---
Date of Service January 04, 2019 Assessment & Plan (1) Hyponatremia: Pt w/ chronic hyponatremia and on salt tabs as OP. complex physiologies driving hyponatremia >> low solute diet, new systolic HF, R heart failure with marked fluid overload; -cont FR 1.2L daily > she is not coming close to this in terms of intake; will look to liberalize once sodium levels stabilize -daily STANDING wts are very important for her care and much appreciated > 53.1 on 12/30 > 53.8 12/31 -encourage po intake > protein shakes do not count toward fluid limit and should not replace meal -<2 gm daily Na ordered -Continue lasix 40mg bid (2) CKD (chronic kidney disease), stage IV: CKD stage IV with baseline creatinine between 1.6-2; admitted w/ NSTEMI and new onset systolic HF after recent admission here for conservatively managed SBO >Creatinine had been stable at about 2 for several days. No indication for urgent dialysis. We will continue to monitor renal function. -daily bmp -Continue Lasix for volume management as above -Avoid nephrotoxins unless lifesaving. (3) CHF exacerbation: -<2 gm daily Na diet ordered -FR 1.2L/ day -Lasix as above >>DAILY STANDING weights very important to manage this pt -strict I/O (4) Non-ST elevated myocardial infarction: Continue medical management per cardiology and primary service (5) Anemia, chronic disease: on epo as OP -transferrin sat on 12/08 was 38% -monitor daily -We will continue Epogen 10,000units subcutaneous weekly-given 12/29. Will give on 01/05 Subjective Patient seen in f/u for CKD and hyponatremia. She feels about the same. No SOB or leg swelling. She is eating well. No vomiting or diarrhoea. Review of Systems Review of Systems: All systems reviewed & are unremarkable except as noted in HPI & below Physical Exam Physical Exam: General exam: Appears comfortable, no acute distress HEENT: Pupils are equal and reactive to light Neck: No JVD, neck is supple trachea is midline Respiratory system: Clear breath sounds bilaterally. Gastrointestinal: Abdomen is soft, non distended, non tender, bowel sounds are present CVS: Regular rate and rhythm. No murmurs, rubs or gallops Musculoskeletal: No joint or muscle tenderness Extremities: Non tender, no edema, peripheral pulses are present Neuro: Oriented, no tremors, no focal neurological deficits Skin: No rashes Results & Data Vital Signs (Past 12 Hours) Vital Signs Temp Pulse Pulse Resp BP BP Pulse Ox 01/04/19 19:08 36.4 C L 63 18 145/56 H 97 01/04/19 15:07 36.6 C 60 17 120/56 L 100 01/04/19 11:22 36.6 C 65 16 103/53 L 99 01/04/19 07:54 136/44 L Laboratory Results Laboratory Results - last 24 hr 01/03/19 01/03/19 01/04/19 20:02 20:08 05:37 WBC RBC Hgb Hct MCV MCH MCHC RDW Std Deviation RDW Coeff of Liss Plt Count MPV PT INR APTT 60.0 H* PTT Ratio 2.2 Sodium 128 L Potassium 4.4 Chloride 86 L Carbon Dioxide 37 H Anion Gap 5.0 BUN 59 H Creatinine 2.06 H Est Cr Clr Drug Dosing 13.8 Est GFR ( Amer) 24.3 Est GFR (Non-Af Amer) 21.0 BUN/Creatinine Ratio 28.9 H Glucose 77 POC Glucose 118 H Calcium 8.4 L 01/04/19 01/04/19 01/04/19 05:37 05:37 05:37 WBC 4.80 RBC 2.89 L Hgb 9.7 L Hct 29.2 L MCV 101.0 H MCH 33.6 MCHC 33.2 RDW Std Deviation 52.0 H RDW Coeff of Liss 14.3 Plt Count 159 MPV 10.4 PT 11.0 INR 1.1 APTT 62.0 H* PTT Ratio 2.3 Sodium Potassium Chloride Carbon Dioxide Anion Gap BUN Creatinine Est Cr Clr Drug Dosing Est GFR ( Amer) Est GFR (Non-Af Amer) BUN/Creatinine Ratio Glucose POC Glucose Calcium 01/04/19 01/04/19 01/04/19 07:24 11:04 16:16 WBC RBC Hgb Hct MCV MCH MCHC RDW Std Deviation RDW Coeff of Liss Plt Count MPV PT INR APTT PTT Ratio Sodium Potassium Chloride Carbon Dioxide Anion Gap BUN Creatinine Est Cr Clr Drug Dosing Est GFR ( Amer) Est GFR (Non-Af Amer) BUN/Creatinine Ratio Glucose POC Glucose 97 92 97 Calcium (1) CHF exacerbation Heart failure type: unspecified Qualified Code(s): I50.9 - Heart failure, unspecified
[2019-01-05] MEDS: LEVOTHYROXINE SODIUM 88 MCG TABLET PO SCH (05:59)
[2019-01-05 06:46] LABS: Partial Thromboplastin Ratio 2.8
[2019-01-05 06:49] LABS: Partial Thromboplastin Time 76.9 Seconds (21.0-31.0)
[2019-01-05 06:54] LABS: BUN Creatinine Ratio 28.6 (10-20); Calcium 9.3 mg/dl (8.5-10.1); Creatinine Clr Calc Pharmacy 13.8 ml/min; Est GFR (African American) 24.3; Potassium 4.4 mmol/L (3.5-5.1)
[2019-01-05] MEDS: NIFEdipine EXTENDED REL 30 MG TABCR PO SCH (08:06)
[2019-01-05] MEDS: ATORVASTATIN 10 MG TAB PO SCH (08:07)
[2019-01-05] MEDS: CITALOPRAM 20 MG TAB PO SCH (08:07)
[2019-01-05] MEDS: CYCLOBENZAPRINE HCL 5 MG TAB PO SCH ×3 (08:07→20:47)
[2019-01-05] MEDS: PANTOprazole 40 MG TAB PO SCH (08:07)
[2019-01-05] MEDS: MAGNESIUM OXIDE 400 MG TAB PO SCH ×2 (08:07→20:47)
[2019-01-05] MEDS: DOCUSATE SODIUM 100 MG CAP PO SCH ×2 (08:07→20:47)
[2019-01-05] MEDS: METOPROLOL SUCC 25MG EXT REL TAB PO SCH ×3 (08:08→20:48)
[2019-01-05] MEDS: ASPIRIN 81 MG ECTAB PO SCH (08:08)
[2019-01-05] MEDS: ISOSORBIDE DINITRATE 10 MG TAB PO SCH ×3 (08:09→17:21)
[2019-01-05] MEDS: FUROSEMIDE 40 MG TAB PO SCH ×2 (08:09→17:22)
[2019-01-05] MEDS: ACETAMINOPHEN 325 MG TAB PO PRN (09:17)
[2019-01-05] MEDS: LORazepam 1 MG TAB PO PRN (09:17)
--- NOTE | 2019-01-05 11:08 | Nephrology Progress Note ---
Date of Service January 05, 2019 Assessment & Plan (1) Hyponatremia: Pt w/ chronic hyponatremia and on salt tabs as OP. complex physiologies driving hyponatremia >> low solute diet, new systolic HF, R heart failure with marked fluid overload; -cont FR 1.2L daily > she is not coming close to this in terms of intake; will look to liberalize once sodium levels stabilize -daily STANDING wts are very important for her care and much appreciated > 53.1 on 12/30 > 53.8 12/31>54.8 01/05 -encourage po intake > protein shakes do not count toward fluid limit and should not replace meal -<2 gm daily Na ordered -Continue lasix 40mg po bid (2) CKD (chronic kidney disease), stage IV: CKD stage IV with baseline creatinine between 1.6-2; admitted w/ NSTEMI and new onset systolic HF after recent admission here for conservatively managed SBO >Creatinine had been stable at about 2 for several days. No indication for urgent dialysis. We will continue to monitor renal function. -daily bmp -Continue Lasix for volume management as above -Avoid nephrotoxins unless lifesaving. (3) CHF exacerbation: -<2 gm daily Na diet ordered -FR 1.2L/ day -Lasix as above >>DAILY STANDING weights very important to manage this pt -strict I/O (4) Non-ST elevated myocardial infarction: She is on metoprolol. Cardiology on board (5) Anemia, chronic disease: on epo as OP -transferrin sat on 12/08 was 38% -monitor daily -We will continue Epogen 10,000units subcutaneous weekly-given 12/29. Will give on 01/05 Subjective Patient seen in follow-up for CKD stage IV and hyponatremia. She denies shortness of breath or lower extremity swelling today. She is eating and drinking well. Sodium is better today at 131. Review of Systems Review of Systems: All systems reviewed & are unremarkable except as noted in HPI & below Physical Exam Physical Exam: General exam: Appears comfortable, no acute distress. Sitting up in chair HEENT: Pupils are equal and reactive to light Neck: No JVD, neck is supple trachea is midline Respiratory system: Clear breath sounds bilaterally. Gastrointestinal: Abdomen is soft, non distended, non tender, bowel sounds are present CVS: Regular rate and rhythm. No murmurs, rubs or gallops Musculoskeletal: No joint or muscle tenderness Extremities: Non tender, no edema, peripheral pulses are present Neuro: Oriented, no tremors, no focal neurological deficits Skin: No rashes Results & Data Vital Signs (Past 12 Hours) Vital Signs Temp Pulse Resp BP Pulse Ox 01/05/19 07:19 36.4 C L 65 16 148/62 H 100 01/05/19 03:21 36.6 C 56 L 17 139/61 99 01/05/19 00:11 36.6 C 61 16 144/49 H 100 Laboratory Results Laboratory Results - last 24 hr 01/04/19 01/04/19 01/04/19 05:37 11:04 16:16 PT 11.0 INR 1.1 APTT PTT Ratio Sodium Potassium Chloride Carbon Dioxide Anion Gap BUN Creatinine Est Cr Clr Drug Dosing Est GFR ( Amer) Est GFR (Non-Af Amer) BUN/Creatinine Ratio Glucose POC Glucose 92 97 Calcium 01/05/19 01/05/19 06:03 06:03 PT INR APTT 76.9 H* PTT Ratio 2.8 Sodium 131 L Potassium 4.4 Chloride 87 L Carbon Dioxide 36 H Anion Gap 8.0 BUN 59 H Creatinine 2.06 H Est Cr Clr Drug Dosing 13.8 Est GFR ( Amer) 24.3 Est GFR (Non-Af Amer) 21.0 BUN/Creatinine Ratio 28.6 H Glucose 80 POC Glucose Calcium 9.3 (1) CHF exacerbation Heart failure type: unspecified Qualified Code(s): I50.9 - Heart failure, unspecified
[2019-01-05 13:17] LABS: INR 1.2 (0.9-1.1); Partial Thromboplastin Ratio 2.1; Prothrombin Time 11.7 Seconds (9.0-12.0)
[2019-01-05 13:22] LABS: Partial Thromboplastin Time 57.4 Seconds (21.0-31.0)
[2019-01-05] MEDS: WARFARIN SOD 3 MG TAB PO SCH (17:23)
--- NOTE | 2019-01-05 17:55 | Hospitalist Progress Note ---
Date of Service January 05, 2019 Assessment & Plan (1) DVT (deep venous thrombosis): -Hospital admission for MSTEMI for which patient completed 48 hours of heparin IV -subsequently heparin IV was stopped and placed on SCDs as patient was anemic and considered to be fall risk -ultrasound lower extremities on 01/02/19: Left popliteal vein thrombosis. Probable partial thrombosis of the right posterior tibial vein -heparin drip was started on 01/02/19 and coumadin was started and patient also placed on protonics to prevent GI bleed risk while on systemic anticoagulation -01/03/19 VQ scan: Bilateral perfusion defects suggesting a moderate to high probability of pulmonary embolus. -given that patient was previously hospitalized prior to this admission, it is unclear whether deep vein thrombosis or possibly pulomonary embolism was present prior to this hospitalization -however the thromboembolism is being treated as an acute diagnosis given that they were found on this admission and the plan is treat with IV heparin and bridge to coumadin with goal INR between 2 to 3 -INR on 01/05/19 is subtherapeutic and will continue IV heparin and coumadin 3 mg daily for now (2) Non-ST elevated myocardial infarction: -troponins peaked at 0.847 -echocardiogram shows on this admission shows that There is global hypokineses with severe hypokinesis of apical septum and anterior inferior wall -continue aspirin daily, metoprolol succinate as 12.5 mg TID, nifedipine 30 mg daily Acute on Chronic systolic Heart failure -CXR: Cardiomegaly. Small left pleural effusion. Findings of congestive heart failure -echocardiogram with depressed ejection fraction of 30% to 35% - repeat CXR: no change in small BP pleural effusion - continue oral Lasix 40mg BID, on fluid restriction Valvular Heart disease: Moderate Mitral Regurgitation Moderate to Severe Tricuspid Regurgitation -medical management with diuresis as above Hyponatremia -chronic hyponatremia and on salt tabs as OP. complex physiologies driving hyponatremia >> low solute diet, heart failure with fluid overload, being on diuretics -will try to maintain serum sodium in upper 120s to low 130s Hypokalemia -resolved Hypomagnesemia -improved with repletion during this hospital stay, will re-check Chronic Kidney Disease stage IV -monitor renal function Anemia -Hgb trended below 8 on 12/24/18 when on heparin drip and 1 unit PRBC was transfused - Hg stable so far -weekly epoetin as per nephrology for now Hypothyroidism -continue home dose levothyroxine Anxiety -ativan prn -citalopram DVT prophylaxis. on heparin drip and coumadin Full code Patient's daughter Ms. Soni Domínguez [phone]. Subjective Patient continue to be on nasal cannula. Continues to be on heparin drip. Patient denies chest pain or leg pain. She has questions about what happens towards the end of the hospital stay but no physical complaints. Physical Exam Constitutional: + thin Eyes: PERRL, conjunctivae normal, anicteric sclerae EOM intact bilaterally ENMT: external ear and nose normal, oropharynx normal Neck: trachea midline, no thyromegaly normal visual inspection Respiratory: normal respiratory effort (diminished lung sounds at the lung bases bilaterally) Cardiovascular: RRR, no murmur, no edema Rate/Rhythm: regular rhythm and + bradycardic Gastrointestinal (Abdomen): normal bowel sounds, soft, nontender, no hepatosplenomegaly Musculoskeletal: Head/Neck/Chest: normocephalic and head atraumatic Neurologic: PERRL, EOMI, accommodation nl, no face palsy, no dysarthria Psychiatric: Orientation: alert and cooperative Eye Contact: good eye contact Genitourinary: + bladder abnormality (miller in place) Results & Data Vital Signs (Past 12 Hours) Vital Signs Temp Pulse Pulse Resp BP BP Pulse Ox 01/05/19 15:34 36.3 C L 59 L 17 114/61 100 01/05/19 11:24 36.6 C 69 17 117/46 L 99 01/05/19 07:19 36.4 C L 65 16 148/62 H 100
[2019-01-05] MEDS: Heparin Adult STANDARD Wt-Based Dextrose 5% 25,000 units/500 mL IV SCH (20:11)
[2019-01-06] MEDS: LEVOTHYROXINE SODIUM 88 MCG TABLET PO SCH (05:38)
[2019-01-06 06:06] LABS: Hematocrit (blood only) 31.3 % (37-47); Hemoglobin 10.3 g/dL (12.0-16.0); Mean Corpuscular Hgb Conc 32.9 g/dL (32-36); Mean Corpuscular Volume 101.6 fL (80-100); Mean Platelet Volume 10.3 fL (7.4-10.4); Platelet Count 182 K/uL (130-400); RDW Coefficient of Variation 14.6 % (11.5-14.5); RDW Standard Deviation 52.7 fL (36.4-46.3); Red Blood Count 3.08 M/uL (4.2-5.4); White Blood Count 5.34 K/uL (4.8-10.8)
[2019-01-06 06:24] LABS: INR 1.3 (0.9-1.1); Partial Thromboplastin Ratio 1.8
[2019-01-06 06:44] LABS: BUN Creatinine Ratio 30.7 (10-20); Calcium 8.9 mg/dl (8.5-10.1); Creatinine Clr Calc Pharmacy 15.4 ml/min; Est GFR (African American) 28.1; Est GFR (Non-African American) 24.2; Magnesium 3.1 mg/dl (1.8-2.4); Potassium 4.2 mmol/L (3.5-5.1)
[2019-01-06] MEDS: PANTOprazole 40 MG TAB PO SCH (07:57)
[2019-01-06] MEDS: METOPROLOL SUCC 25MG EXT REL TAB PO SCH ×3 (07:57→20:21)
[2019-01-06] MEDS: NIFEdipine EXTENDED REL 30 MG TABCR PO SCH (07:57)
[2019-01-06] MEDS: ISOSORBIDE DINITRATE 10 MG TAB PO SCH ×3 (07:58→17:13)
[2019-01-06] MEDS: FUROSEMIDE 40 MG TAB PO SCH ×2 (07:58→17:14)
[2019-01-06] MEDS: CITALOPRAM 20 MG TAB PO SCH (07:58)
[2019-01-06] MEDS: ATORVASTATIN 10 MG TAB PO SCH (07:59)
[2019-01-06] MEDS: MAGNESIUM OXIDE 400 MG TAB PO SCH ×3 (07:59→20:21)
[2019-01-06] MEDS: DOCUSATE SODIUM 100 MG CAP PO SCH ×2 (07:59→20:21)
[2019-01-06] MEDS: ASPIRIN 81 MG ECTAB PO SCH (07:59)
[2019-01-06] MEDS: CYCLOBENZAPRINE HCL 5 MG TAB PO SCH ×3 (07:59→20:21)
[2019-01-06] MEDS: LORazepam 1 MG TAB PO PRN (13:38)
--- NOTE | 2019-01-06 16:11 | Hospitalist Progress Note ---
Date of Service January 06, 2019 Assessment & Plan (1) DVT (deep venous thrombosis): -Hospital admission for NSTEMI for which patient completed 48 hours of heparin IV -subsequently heparin IV was stopped and placed on SCDs as patient was anemic and considered to be fall risk -ultrasound lower extremities on 01/02/19: Left popliteal vein thrombosis. Probable partial thrombosis of the right posterior tibial vein -heparin drip was started on 01/02/19 and coumadin was started and patient also placed on protonics to prevent GI bleed risk while on systemic anticoagulation -01/03/19 VQ scan: Bilateral perfusion defects suggesting a moderate to high probability of pulmonary embolus. -given that patient was previously hospitalized prior to this admission, it is unclear whether deep vein thrombosis or possibly pulomonary embolism was present prior to this hospitalization -however the thromboembolism is being treated as an acute diagnosis given that they were found on this admission and the plan is treat with IV heparin and bridge to coumadin with goal INR between 2 to 3 -INR on 01/05/19 is subtherapeutic and will continue IV heparin and coumadin 3 mg daily for now -INR on 01/06/19 is only 1.3 and will continue IV heparin and coumadin 3 mg daily (2) Non-ST elevated myocardial infarction: -troponins peaked at 0.847 -echocardiogram shows on this admission shows that There is global hypokineses with severe hypokinesis of apical septum and anterior inferior wall -continue aspirin daily, metoprolol succinate as 12.5 mg TID, nifedipine 30 mg daily Acute on Chronic systolic Heart failure -CXR: Cardiomegaly. Small left pleural effusion. Findings of congestive heart failure -echocardiogram with depressed ejection fraction of 30% to 35% - repeat CXR: no change in small BP pleural effusion - continue oral Lasix 40mg BID, on fluid restriction Urinary retention -has been on chronic miller -will try trial of void and if failing that, the patient is due for miller replacement as per patient's daughter Valvular Heart disease: Moderate Mitral Regurgitation Moderate to Severe Tricuspid Regurgitation -medical management with diuresis as above Hyponatremia -chronic hyponatremia and on salt tabs as OP. complex physiologies driving hyponatremia >> low solute diet, heart failure with fluid overload, being on diuretics -will try to maintain serum sodium in upper 120s to low 130s -currently is 132 Hypokalemia -resolved Hypomagnesemia -has resolved during this hospital stay Chronic Kidney Disease stage IV -monitor renal function Anemia -Hgb trended below 8 on 12/24/18 when on heparin drip and 1 unit PRBC was transfused - Hg stable so far -weekly epoetin as per nephrology for now Hypothyroidism -continue home dose levothyroxine Anxiety -ativan prn -citalopram DVT prophylaxis. on heparin drip and coumadin Full code Patient's daughter Ms. Soni Domínguez [phone]. Subjective Patient continues to have miller and heparin drip. patient denies acute pain of the chest or with breathing. Discussed hospital course with patient's daughter Soni [phone] at the bedside Physical Exam Constitutional: + thin Eyes: PERRL, conjunctivae normal, anicteric sclerae EOM intact bilaterally ENMT: external ear and nose normal, oropharynx normal Neck: trachea midline, no thyromegaly normal visual inspection Respiratory: normal respiratory effort (diminished lung sounds at the lung bases bilaterally) Cardiovascular: Rate/Rhythm: regular rate and + bradycardic Gastrointestinal (Abdomen): normal bowel sounds, soft, nontender, no hepatosplenomegaly Musculoskeletal: Head/Neck/Chest: normocephalic and head atraumatic Neurologic: PERRL, EOMI, accommodation nl, no face palsy, no dysarthria Psychiatric: Orientation: alert and cooperative Eye Contact: good eye contact Genitourinary: + bladder abnormality (miller in place) Results & Data Vital Signs (Past 12 Hours) Vital Signs Temp Pulse Pulse Pulse Resp BP BP 01/06/19 15:25 36.4 C L 61 20 147/52 H 01/06/19 13:41 65 131/47 L 01/06/19 11:24 36.4 C L 67 18 146/49 H 01/06/19 08:00 62 01/06/19 07:47 36.6 C 62 17 148/57 H Pulse Ox 01/06/19 15:25 94 01/06/19 13:41 01/06/19 11:24 93 01/06/19 08:00 01/06/19 07:47 96
[2019-01-06] MEDS: WARFARIN SOD 3 MG TAB PO SCH (17:13)
--- NOTE | 2019-01-06 21:17 | Nephrology Progress Note ---
Date of Service January 06, 2019 Assessment & Plan (1) Hyponatremia: Pt w/ chronic hyponatremia and on salt tabs as OP. complex physiologies driving hyponatremia >> low solute diet, new systolic HF, R heart failure with marked fluid overload; Na 132 today -cont FR 1.2L daily > she is not coming close to this in terms of intake; will look to liberalize once sodium levels stabilize -daily STANDING wts are very important for her care and much appreciated > 53.1 on 12/30 > 53.8 12/31>54.8 01/05 -encourage po intake > protein shakes do not count toward fluid limit and should not replace meal -<2 gm daily Na ordered -Continue lasix 40mg po bid (2) CKD (chronic kidney disease), stage IV: CKD stage IV with baseline creatinine between 1.6-2; admitted w/ NSTEMI and new onset systolic HF after recent admission here for conservatively managed SBO >Creatinine had been stable at about 2 for several days, 1.8 today. No indication for urgent dialysis. We will continue to monitor renal function. -daily bmp -Continue Lasix for volume management as above -Avoid nephrotoxins unless lifesaving. (3) CHF exacerbation: -<2 gm daily Na diet ordered -FR 1.2L/ day -Lasix as above >>DAILY STANDING weights very important to manage this pt -strict I/O (4) Non-ST elevated myocardial infarction: She is on metoprolol. Cardiology on board (5) Anemia, chronic disease: on epo as OP -transferrin sat on 12/08 was 38% -monitor daily -We will continue Epogen 10,000units subcutaneous weekly-given 12/29. -Hb 10.3 today Subjective Patient seen in the morning on rounds. She complains of mild SOB. She is worried about potential hospital bill due to overstaying. Her leg edema has subsided. She is also frustrated at the diagnosis of PE Review of Systems Review of Systems: All systems reviewed & are unremarkable except as noted in HPI & below Physical Exam Physical Exam: General exam: Appears comfortable, no acute distress. Sitting up in chair HEENT: Pupils are equal and reactive to light Neck: No JVD, neck is supple trachea is midline Respiratory system: Clear breath sounds bilaterally. Gastrointestinal: Abdomen is soft, non distended, non tender, bowel sounds are present CVS: Regular rate and rhythm. No murmurs, rubs or gallops Musculoskeletal: No joint or muscle tenderness Extremities: Non tender, no edema, peripheral pulses are present Neuro: Oriented, no tremors, no focal neurological deficits Skin: No rashes Results & Data Vital Signs (Past 12 Hours) Vital Signs Temp Pulse Pulse Resp BP BP Pulse Ox 01/06/19 19:13 36.5 C 60 17 131/47 L 100 01/06/19 15:25 36.4 C L 61 20 147/52 H 94 01/06/19 13:41 65 131/47 L 01/06/19 11:24 36.4 C L 67 18 146/49 H 93 Laboratory Results Laboratory Results - last 24 hr 01/06/19 01/06/19 01/06/19 05:19 05:19 05:19 WBC 5.34 RBC 3.08 L Hgb 10.3 L Hct 31.3 L MCV 101.6 H MCH 33.4 MCHC 32.9 RDW Std Deviation 52.7 H RDW Coeff of Liss 14.6 H Plt Count 182 MPV 10.3 PT 13.0 H INR 1.3 H APTT 48.0 H* PTT Ratio 1.8 Sodium 132 L Potassium 4.2 Chloride 89 L Carbon Dioxide 35 H Anion Gap 8.0 BUN 56 H Creatinine 1.83 H Est Cr Clr Drug Dosing 15.4 Est GFR ( Amer) 28.1 Est GFR (Non-Af Amer) 24.2 BUN/Creatinine Ratio 30.7 H Glucose 75 Calcium 8.9 Magnesium 3.1 H (1) CHF exacerbation Heart failure type: unspecified Qualified Code(s): I50.9 - Heart failure, unspecified
[2019-01-07 06:32] LABS: INR 1.7 (0.9-1.1); Partial Thromboplastin Ratio 1.8; Prothrombin Time 16.6 Seconds (9.0-12.0)
[2019-01-07] MEDS: ISOSORBIDE DINITRATE 10 MG TAB PO SCH ×3 (06:32→16:38)
[2019-01-07] MEDS: LEVOTHYROXINE SODIUM 88 MCG TABLET PO SCH (06:32)
[2019-01-07 06:47] LABS: BUN Creatinine Ratio 29.9 (10-20); Calcium 8.9 mg/dl (8.5-10.1); Creatinine Clr Calc Pharmacy 15.9 ml/min; Est GFR (African American) 29.2; Est GFR (Non-African American) 25.2; Magnesium 2.9 mg/dl (1.8-2.4); Potassium 4.2 mmol/L (3.5-5.1)
[2019-01-07] MEDS: Heparin Adult STANDARD Wt-Based Dextrose 5% 25,000 units/500 mL IV SCH ×2 (07:40→20:12)
[2019-01-07] MEDS: CITALOPRAM 20 MG TAB PO SCH (07:41)
[2019-01-07] MEDS: ATORVASTATIN 10 MG TAB PO SCH (07:41)
[2019-01-07] MEDS: METOPROLOL SUCC 25MG EXT REL TAB PO SCH ×3 (07:42→20:40)
[2019-01-07] MEDS: PANTOprazole 40 MG TAB PO SCH (07:43)
[2019-01-07] MEDS: NIFEdipine EXTENDED REL 30 MG TABCR PO SCH (07:43)
[2019-01-07] MEDS: DOCUSATE SODIUM 100 MG CAP PO SCH ×2 (07:44→20:40)
[2019-01-07] MEDS: CYCLOBENZAPRINE HCL 5 MG TAB PO SCH ×3 (07:44→20:40)
[2019-01-07] MEDS: MAGNESIUM OXIDE 400 MG TAB PO SCH (07:45)
[2019-01-07] MEDS: ASPIRIN 81 MG ECTAB PO SCH (07:45)
[2019-01-07] MEDS: FUROSEMIDE 40 MG TAB PO SCH ×2 (07:45→16:38)
--- NOTE | 2019-01-07 11:12 | Hospitalist Progress Note ---
Date of Service January 07, 2019 Assessment & Plan (1) DVT (deep venous thrombosis): -Hospital admission for NSTEMI for which patient completed 48 hours of heparin IV -subsequently heparin IV was stopped and placed on SCDs as patient was anemic and considered to be fall risk -ultrasound lower extremities on 01/02/19: Left popliteal vein thrombosis. Probable partial thrombosis of the right posterior tibial vein -heparin drip was started on 01/02/19 and coumadin was started and patient also placed on protonics to prevent GI bleed risk while on systemic anticoagulation -01/03/19 VQ scan: Bilateral perfusion defects suggesting a moderate to high probability of pulmonary embolus. -given that patient was previously hospitalized prior to this admission, it is unclear whether deep vein thrombosis or possibly pulomonary embolism was present prior to this hospitalization -however the thromboembolism is being treated as an acute diagnosis given that they were found on this admission and the plan is treat with IV heparin and bridge to coumadin with goal INR between 2 to 3 -INR on 01/05/19 is subtherapeutic and will continue IV heparin and coumadin 3 mg daily for now -INR on 01/06/19 is only 1.3 and will continue IV heparin and coumadin 3 mg daily -INR on 01/07/19 is 1.7 and will continue IV heparin and coumadin 3 mg daily (2) Non-ST elevated myocardial infarction: -troponins peaked at 0.847 -echocardiogram shows on this admission shows that There is global hypokineses with severe hypokinesis of apical septum and anterior inferior wall -continue aspirin daily, metoprolol succinate as 12.5 mg TID, nifedipine 30 mg daily Acute on Chronic systolic Heart failure -CXR: Cardiomegaly. Small left pleural effusion. Findings of congestive heart failure -echocardiogram with depressed ejection fraction of 30% to 35% - repeat CXR: no change in small BP pleural effusion - continue oral Lasix 40mg BID, on fluid restriction Urinary retention -has been on chronic miller -01/06/19: the patient is due for miller replacement as per patient's daughter -01/07/19: Patient had declined miller removal yesterday. Have explained to patient that being in hospital will allow safest way for trial of void and then if need be, a new miller can be placed. Patient very anxious about any trial of void because she is worried that she will dveelop severe kidney problems if she cannot urinate without miller. have spoken with patient to at least allow nurse to do new miller replacement to prevent risk of urinary tract infection Valvular Heart disease: Moderate Mitral Regurgitation Moderate to Severe Tricuspid Regurgitation -medical management with diuresis as above Hyponatremia -chronic hyponatremia and on salt tabs as OP. complex physiologies driving hyponatremia >> low solute diet, heart failure with fluid overload, being on diuretics -will try to maintain serum sodium in upper 120s to low 130s -currently is 129 Hypokalemia -resolved Hypomagnesemia -has resolved during this hospital stay Chronic Kidney Disease stage IV -monitor renal function Anemia -Hgb trended below 8 on 12/24/18 when on heparin drip and 1 unit PRBC was transfused - Hg stable so far -weekly epoetin as per nephrology for now Hypothyroidism -continue home dose levothyroxine Anxiety -ativan prn -citalopram DVT prophylaxis. on heparin drip and coumadin Full code Patient's daughter Ms. Soni Domínguez [phone]. Subjective Patient had declined miller removal yesterday. Have explained to patient that being in hospital will allow safest way for trial of void and then if need be, a new miller can be placed. Patient very anxious about any trial of void because she is worried that she will dveelop severe kidney problems if she cannot urinate without miller. have spoken with patient to at least allow nurse to do new miller replacement to prevent risk of urinary tract infection. Patient INR is 1.7 and continues to be on heparin drip. Patient does not have cardiac or breathing complaints. continue to be on nasal cannula Physical Exam Constitutional: + thin Eyes: PERRL, conjunctivae normal, anicteric sclerae EOM intact bilaterally ENMT: external ear and nose normal, oropharynx normal Neck: trachea midline, no thyromegaly normal visual inspection Respiratory: normal respiratory effort (diminished lung sounds at the lung bases bilaterally) Auscultation: + crackles Cardiovascular: Rate/Rhythm: regular rhythm and + bradycardic Gastrointestinal (Abdomen): normal bowel sounds, soft, nontender, no hepatosplenomegaly Musculoskeletal: Head/Neck/Chest: normocephalic and head atraumatic Neurologic: PERRL, EOMI, accommodation nl, no face palsy, no dysarthria Psychiatric: Orientation: alert and cooperative Eye Contact: good eye contact Mood: + anxious mood Genitourinary: + bladder abnormality (miller in place) Results & Data Vital Signs (Past 12 Hours) Vital Signs Temp Pulse Pulse Pulse Resp BP BP 01/07/19 08:09 36.3 C L 58 L 18 118/56 L 01/07/19 04:08 36.4 C L 58 L 17 134/48 L 01/07/19 00:00 58 L 01/06/19 23:24 36.4 C L 60 17 133/54 L Pulse Ox 01/07/19 08:09 100 01/07/19 04:08 100 01/07/19 00:00 01/06/19 23:24 100
[2019-01-07] MEDS: ACETAMINOPHEN 325 MG TAB PO PRN ×2 (12:10→20:46)
[2019-01-07] MEDS: WARFARIN SOD 3 MG TAB PO SCH (16:38)
[2019-01-07] MEDS: LORazepam 1 MG TAB PO PRN (20:46)
[2019-01-08] MEDS ORDERED: QUETIAPINE FUMARATE 25 MG TABLET PO STA (00:08)
[2019-01-08] MEDS ORDERED: OLANZapine 10 MG/2.1 ML SDV IM STA (00:17)
[2019-01-08] MEDS: LEVOTHYROXINE SODIUM 88 MCG TABLET PO SCH (06:17)
[2019-01-08] MEDS: CITALOPRAM 20 MG TAB PO SCH (08:01)
[2019-01-08] MEDS: DOCUSATE SODIUM 100 MG CAP PO SCH ×2 (08:01→20:58)
[2019-01-08] MEDS: ISOSORBIDE DINITRATE 10 MG TAB PO SCH ×3 (08:01→16:32)
[2019-01-08] MEDS: METOPROLOL SUCC 25MG EXT REL TAB PO SCH ×3 (08:02→20:58)
[2019-01-08] MEDS: ATORVASTATIN 10 MG TAB PO SCH (08:02)
[2019-01-08] MEDS: NIFEdipine EXTENDED REL 30 MG TABCR PO SCH (08:02)
[2019-01-08] MEDS: PANTOprazole 40 MG TAB PO SCH (08:02)
[2019-01-08] MEDS: FUROSEMIDE 40 MG TAB PO SCH ×2 (08:03→16:32)
[2019-01-08] MEDS: CYCLOBENZAPRINE HCL 5 MG TAB PO SCH ×3 (08:03→20:58)
[2019-01-08] MEDS: ASPIRIN 81 MG ECTAB PO SCH (08:03)
[2019-01-08 08:34] LABS: Hematocrit (blood only) 31.6 % (37-47); Hemoglobin 10.3 g/dL (12.0-16.0); Mean Corpuscular Hgb Conc 32.6 g/dL (32-36); Mean Corpuscular Volume 102.3 fL (80-100); Mean Platelet Volume 10.3 fL (7.4-10.4); Platelet Count 171 K/uL (130-400); RDW Coefficient of Variation 14.9 % (11.5-14.5); RDW Standard Deviation 53.7 fL (36.4-46.3); Red Blood Count 3.09 M/uL (4.2-5.4)
[2019-01-08 08:54] LABS: INR 2.2 (0.9-1.1); Partial Thromboplastin Ratio 2.5; Prothrombin Time 21.5 Seconds (9.0-12.0)
[2019-01-08] MEDS: EPOETIN ALFA 10,000 UNITS/ML VIAL SQ SCH (08:57)
--- NOTE | 2019-01-08 15:28 | Hospitalist Progress Note ---
Date of Service January 08, 2019 Assessment & Plan (1) DVT (deep venous thrombosis): -Hospital admission for NSTEMI for which patient completed 48 hours of heparin IV -subsequently heparin IV was stopped and placed on SCDs as patient was anemic and considered to be fall risk -ultrasound lower extremities on 01/02/19: Left popliteal vein thrombosis. Probable partial thrombosis of the right posterior tibial vein -heparin drip was started on 01/02/19 and coumadin was started and patient also placed on protonics to prevent GI bleed risk while on systemic anticoagulation -01/03/19 VQ scan: Bilateral perfusion defects suggesting a moderate to high probability of pulmonary embolus. -given that patient was previously hospitalized prior to this admission, it is unclear whether deep vein thrombosis or possibly pulomonary embolism was present prior to this hospitalization -however the thromboembolism is being treated as an acute diagnosis given that they were found on this admission and the plan was to treat with IV heparin and bridge to coumadin with goal INR between 2 to 3 -as of 01/08/19 INR is 2.2 which is first therapeutic level INR when on heparin and coumadin; IV heparin stopped. continue coumadin as 3 mg daily (2) Non-ST elevated myocardial infarction: -troponins peaked at 0.847 -echocardiogram shows on this admission shows that There is global hypokineses with severe hypokinesis of apical septum and anterior inferior wall -continue aspirin daily, metoprolol succinate as 12.5 mg TID, nifedipine 30 mg daily Acute on Chronic systolic Heart failure -CXR: Cardiomegaly. Small left pleural effusion. Findings of congestive heart failure -echocardiogram with depressed ejection fraction of 30% to 35% - repeat CXR: no change in small BP pleural effusion - continue oral Lasix 40mg BID, on fluid restriction Urinary retention -has been on chronic miller -01/06/19: the patient due for miller replacement as per patient's daughter -01/07/19: Patient had declined miller removal yesterday. Have explained to patient that being in hospital will allow safest way for trial of void and then if need be, a new miller can be placed. Patient very anxious about any trial of void because she is worried that she will develop severe kidney problems if she cannot urinate without miller. had spoken with patient to at least allow nurse to do new miller replacement to prevent risk of urinary tract infection. a new miller was exchanged on 01/07/19 Valvular Heart disease: Moderate Mitral Regurgitation Moderate to Severe Tricuspid Regurgitation -medical management with diuresis as above Hyponatremia -chronic hyponatremia and on salt tabs as Outpatient. complex physiologies driving hyponatremia - low solute diet, heart failure with fluid overload, being on diuretics -will try to maintain serum sodium in upper 120s to low 130s -currently is 129 as of 01/07/19 Hypokalemia -resolved Hypomagnesemia -has resolved during this hospital stay Chronic Kidney Disease stage IV -monitor renal function Anemia -Hgb trended below 8 on 12/24/18 when on heparin drip and 1 unit PRBC was transfused - Hg stable so far -weekly epoetin as per nephrology for now Hypothyroidism -continue home dose levothyroxine Anxiety -ativan prn -citalopram DVT prophylaxis. coumadin Full code Patient's daughter Ms. Soni Domínguez [phone] Disposition: will keep inpatient and check to see if INR continues to be therapeutic, patient also awaits approval and bed to [facility] Subjective Patient on room air. She is worried she is sleeping too much during the day. Patient's nurse reports that patient was agitated yesterday night and did not get good sleep. Patient's INR is 2.2. off IV heparin drip. Patient denies acute pain Physical Exam Constitutional: + thin Eyes: PERRL, conjunctivae normal, anicteric sclerae EOM intact bilaterally ENMT: external ear and nose normal, oropharynx normal Neck: trachea midline, no thyromegaly normal visual inspection Respiratory: normal respiratory effort (diminished lung sounds at the lung bases bilaterally) Cardiovascular: Rate/Rhythm: regular rate and regular rhythm Gastrointestinal (Abdomen): normal bowel sounds, soft, nontender, no hepatosplenomegaly Musculoskeletal: Head/Neck/Chest: normocephalic and head atraumatic Neurologic: PERRL, EOMI, accommodation nl, no face palsy, no dysarthria Psychiatric: Orientation: alert and cooperative Mood: + anxious mood Genitourinary: + bladder abnormality (miller in place) Results & Data Vital Signs (Past 12 Hours) Vital Signs Pulse Resp BP Pulse Ox 01/08/19 14:00 68 18 145/68 H 97
[2019-01-08] MEDS: WARFARIN SOD 3 MG TAB PO SCH (16:33)
[2019-01-08] MEDS: ACETAMINOPHEN 325 MG TAB PO PRN (16:36)
--- NOTE | 2019-01-08 17:29 | Nephrology Progress Note ---
Date of Service January 08, 2019 Assessment & Plan (1) Hyponatremia: Pt w/ chronic hyponatremia and on salt tabs as OP. complex physiologies driving hyponatremia >> low solute diet, new systolic HF, R heart failure with marked fluid overload; Na in the lower 130's -cont FR 1.2L daily -daily STANDING wts are very important for her care and much appreciated > 53.1 on 12/30 > 53.8 12/31>54.8 01/05 -encourage po intake > protein shakes do not count toward fluid limit and should not replace meal -<2 gm daily Na ordered -Continue lasix 40mg po bid (2) CKD (chronic kidney disease), stage IV: CKD stage IV with baseline creatinine between 1.6-2; admitted w/ NSTEMI and new onset systolic HF after recent admission here for conservatively managed SBO >Creatinine now at baseline. No indication for urgent dialysis. We will continue to monitor renal function. -daily bmp -Continue Lasix for volume management as above -Avoid nephrotoxins unless lifesaving. (3) CHF exacerbation: -<2 gm daily Na diet ordered -FR 1.2L/ day -Lasix as above >>DAILY STANDING weights very important to manage this pt -strict I/O (4) Non-ST elevated myocardial infarction: She is on metoprolol. Cardiology on board (5) Anemia, chronic disease: on epo as OP -transferrin sat on 12/08 was 38% -monitor daily -We will continue Epogen 10,000units subcutaneous weekly-given 12/29, 01/07. -Hb 10.3 today Subjective Patient seen in f/u for hyponatremia and CKD. She feels about the same. Denies SOB. Reports to be eating. No vomiting or diarrhoea. Review of Systems Review of Systems: All systems reviewed & are unremarkable except as noted in HPI & below Physical Exam Physical Exam: General exam: Appears comfortable, no acute distress HEENT: Pupils are equal and reactive to light Neck: No JVD, neck is supple trachea is midline Respiratory system: Clear breath sounds bilaterally. Gastrointestinal: Abdomen is soft, non distended, non tender, bowel sounds are present CVS: Regular rate and rhythm. No murmurs, rubs or gallops Musculoskeletal: No joint or muscle tenderness Extremities: Non tender, no edema, peripheral pulses are present Neuro: Oriented, no tremors, no focal neurological deficits Skin: No rashes Results & Data Vital Signs (Past 12 Hours) Vital Signs Pulse Resp BP Pulse Ox 01/08/19 14:00 68 18 145/68 H 97 Laboratory Results Laboratory Results - last 24 hr 01/08/19 01/08/19 07:49 07:49 WBC 4.90 RBC 3.09 L Hgb 10.3 L Hct 31.6 L MCV 102.3 H MCH 33.3 MCHC 32.6 RDW Std Deviation 53.7 H RDW Coeff of Liss 14.9 H Plt Count 171 MPV 10.3 PT 21.5 H INR 2.2 H APTT 67.0 H* PTT Ratio 2.5 (1) CHF exacerbation Heart failure type: unspecified Qualified Code(s): I50.9 - Heart failure, unspecified
[2019-01-09] MEDS: ACETAMINOPHEN 325 MG TAB PO PRN ×2 (01:50→09:37)
[2019-01-09] MEDS: LEVOTHYROXINE SODIUM 88 MCG TABLET PO SCH (05:53)
[2019-01-09] MEDS: ISOSORBIDE DINITRATE 10 MG TAB PO SCH ×3 (07:22→17:11)
[2019-01-09] MEDS: NIFEdipine EXTENDED REL 30 MG TABCR PO SCH (07:43)
[2019-01-09] MEDS: PANTOprazole 40 MG TAB PO SCH (07:43)
[2019-01-09] MEDS: METOPROLOL SUCC 25MG EXT REL TAB PO SCH ×3 (07:44→20:00)
[2019-01-09] MEDS: ATORVASTATIN 10 MG TAB PO SCH (07:45)
[2019-01-09] MEDS: CITALOPRAM 20 MG TAB PO SCH (07:45)
[2019-01-09] MEDS: FUROSEMIDE 40 MG TAB PO SCH ×2 (07:46→17:12)
[2019-01-09] MEDS: CYCLOBENZAPRINE HCL 5 MG TAB PO SCH ×3 (07:47→20:05)
[2019-01-09] MEDS: DOCUSATE SODIUM 100 MG CAP PO SCH ×2 (07:52→20:08)
[2019-01-09 08:39] LABS: INR 2.7 (0.9-1.1); Partial Thromboplastin Ratio 1.3; Partial Thromboplastin Time 35.4 Seconds (21.0-31.0); Prothrombin Time 25.9 Seconds (9.0-12.0)
[2019-01-09] MEDS: ASPIRIN 81 MG ECTAB PO SCH (09:37)
--- NOTE | 2019-01-09 11:44 | Hospitalist Progress Note ---
Date of Service January 09, 2019 Assessment & Plan (1) DVT (deep venous thrombosis): -Hospital admission for NSTEMI for which patient completed 48 hours of heparin IV -subsequently heparin IV was stopped and placed on SCDs as patient was anemic and considered to be fall risk -ultrasound lower extremities on 01/02/19: Left popliteal vein thrombosis. Probable partial thrombosis of the right posterior tibial vein -heparin drip was started on 01/02/19 and coumadin was started and patient also placed on protonics to prevent GI bleed risk while on systemic anticoagulation -01/03/19 VQ scan: Bilateral perfusion defects suggesting a moderate to high probability of pulmonary embolus. -given that patient was previously hospitalized prior to this admission, it is unclear whether deep vein thrombosis or possibly pulomonary embolism was present prior to this hospitalization -however the thromboembolism is being treated as an acute diagnosis given that they were found on this admission and the plan was to treat with IV heparin and bridge to coumadin with goal INR between 2 to 3 -as of 01/08/19 INR is 2.2 which is first therapeutic level INR when on heparin and coumadin; IV heparin stopped. continue coumadin as 3 mg daily -as of 01/09/19: INR is 2.7, will hold coumadin and recheck by 01/10/19 to see if INR becomes too elevated (2) Non-ST elevated myocardial infarction: -troponins peaked at 0.847 -echocardiogram shows on this admission shows that There is global hypokineses with severe hypokinesis of apical septum and anterior inferior wall -continue aspirin daily, metoprolol succinate as 12.5 mg TID, nifedipine 30 mg daily Acute on Chronic systolic Heart failure -CXR: Cardiomegaly. Small left pleural effusion. Findings of congestive heart failure -echocardiogram with depressed ejection fraction of 30% to 35% - repeat CXR: no change in small BP pleural effusion - continue oral Lasix 40mg BID -as of 01/09/19 will lift the fluid restriction from 1200 ml daily to 1500 ml daily, stop the salt restrictions Urinary retention -has been on chronic miller -01/06/19: the patient due for miller replacement as per patient's daughter -01/07/19: Patient had declined miller removal yesterday. Have explained to patient that being in hospital will allow safest way for trial of void and then if need be, a new miller can be placed. Patient very anxious about any trial of void because she is worried that she will develop severe kidney problems if she cannot urinate without miller. had spoken with patient to at least allow nurse to do new miller replacement to prevent risk of urinary tract infection. a new miller was exchanged on 01/07/19 Valvular Heart disease: Moderate Mitral Regurgitation Moderate to Severe Tricuspid Regurgitation -medical management with diuresis as above Hyponatremia -chronic hyponatremia and on salt tabs as Outpatient. complex physiologies driving hyponatremia - low solute diet, heart failure with fluid overload, being on diuretics -will try to maintain serum sodium in upper 120s to low 130s -currently is 129 as of 01/07/19 Hypokalemia -resolved Hypomagnesemia -has resolved during this hospital stay Chronic Kidney Disease stage IV -monitor renal function Anemia -Hgb trended below 8 on 12/24/18 when on heparin drip and 1 unit PRBC was transfused - Hg stable so far -weekly epoetin as per nephrology for now Hypothyroidism -continue home dose levothyroxine Anxiety -ativan prn -citalopram dry eyes -area around left eye with dried exudate -visine daily prn to left eye DVT prophylaxis. coumadin Full code Patient's daughter Ms. Soni Domínguez [phone] Disposition: INR is 2.7, will hold coumadin and recheck by 01/10/19 to see if INR becomes too elevated patient awaits approval and bed to [facility] Subjective Patient seen and examined at bedside. on room air. no acute distress. patient at her food. mild leg discomfort. last bowel movement was yesterday. no chest or abdomen pain. Physical Exam Constitutional: + thin Eyes: PERRL, conjunctivae normal, anicteric sclerae EOM intact bilaterally dried exudate near left eye ENMT: external ear and nose normal, oropharynx normal Neck: trachea midline, no thyromegaly normal visual inspection Respiratory: normal respiratory effort, lungs clear to auscultation normal respiratory effort (diminished lung sounds at the lung bases bilaterally) Cardiovascular: RRR, no murmur, no edema Rate/Rhythm: regular rate and regular rhythm Gastrointestinal (Abdomen): normal bowel sounds, soft, nontender, no h epatosplenomegaly Musculoskeletal: Head/Neck/Chest: normocephalic and head atraumatic Neurologic: PERRL, EOMI, accommodation nl, no face palsy, no dysarthria Psychiatric: Orientation: alert and cooperative Eye Contact: good eye contact Genitourinary: + bladder abnormality (miller in place) Results & Data Vital Signs (Past 12 Hours) Vital Signs Temp Pulse Pulse Resp BP Pulse Ox 01/09/19 11:35 36.7 C 66 18 160/63 H 96 01/09/19 07:12 36.8 C 65 18 122/65 95 01/08/19 23:59 36.7 C 67 18 132/70 100
[2019-01-09] MEDS ORDERED: NAPHAZOLIN/PHENIRAMIN OPH SOLN 75 DROPS/5 ML BTL OP PRN (12:07)
[2019-01-09] MEDS ORDERED: ERYTHROMYCIN OP OINT 1 GM PKT OP SCH (12:15)
[2019-01-09] MEDS: LORazepam 1 MG TAB PO PRN (15:50)
[2019-01-10] MEDS: LORazepam 1 MG TAB PO PRN ×2 (00:17→15:51)
[2019-01-10] MEDS: LEVOTHYROXINE SODIUM 88 MCG TABLET PO SCH (05:36)
[2019-01-10] MEDS: ISOSORBIDE DINITRATE 10 MG TAB PO SCH ×3 (06:32→17:58)
[2019-01-10 07:15] LABS: Hematocrit (blood only) 31.7 % (37-47); Hemoglobin 10.3 g/dL (12.0-16.0); Mean Corpuscular Hgb Conc 32.5 g/dL (32-36); Mean Corpuscular Volume 103.3 fL (80-100); Mean Platelet Volume 9.9 fL (7.4-10.4); Platelet Count 170 K/uL (130-400); RDW Coefficient of Variation 15.5 % (11.5-14.5); RDW Standard Deviation 57.4 fL (36.4-46.3); Red Blood Count 3.07 M/uL (4.2-5.4); White Blood Count 4.43 K/uL (4.8-10.8)
[2019-01-10 07:31] LABS: INR 2.3 (0.9-1.1); Prothrombin Time 22.4 Seconds (9.0-12.0)
[2019-01-10 07:54] LABS: BUN Creatinine Ratio 26.4 (10-20); Calcium 9.2 mg/dl (8.5-10.1); Creatinine Clr Calc Pharmacy 13.6 ml/min; Est GFR (African American) 24.3; Potassium 4.1 mmol/L (3.5-5.1)
[2019-01-10 07:57] LABS: Albumin Globulin Ratio 0.9 (0.9-2); Bilirubin,Total 0.4 mg/dl (0.2-1); Globulin 3.4 gm/dl (2.5-4.0); Total Protein 6.4 gm/dl (6.4-8.2)
[2019-01-10] MEDS: FUROSEMIDE 40 MG TAB PO SCH ×2 (08:52→17:58)
[2019-01-10] MEDS: METOPROLOL SUCC 25MG EXT REL TAB PO SCH ×3 (08:52→21:01)
[2019-01-10] MEDS: ATORVASTATIN 10 MG TAB PO SCH (08:52)
[2019-01-10] MEDS: CYCLOBENZAPRINE HCL 5 MG TAB PO SCH (08:52)
[2019-01-10] MEDS: ASPIRIN 81 MG ECTAB PO SCH (08:52)
[2019-01-10] MEDS: PANTOprazole 40 MG TAB PO SCH (08:53)
[2019-01-10] MEDS: NIFEdipine EXTENDED REL 30 MG TABCR PO SCH (08:53)
[2019-01-10] MEDS: CITALOPRAM 20 MG TAB PO SCH (08:54)
[2019-01-10] MEDS: ACETAMINOPHEN 325 MG TAB PO PRN ×2 (08:58→17:57)
[2019-01-10] MEDS: DOCUSATE SODIUM 100 MG CAP PO SCH ×2 (08:58→21:02)
--- NOTE | 2019-01-10 14:53 | Hospitalist Progress Note ---
Date of Service January 10, 2019 Assessment & Plan (1) DVT (deep venous thrombosis): -Hospital admission for NSTEMI for which patient completed 48 hours of heparin IV -subsequently heparin IV was stopped and placed on SCDs as patient was anemic and considered to be fall risk -ultrasound lower extremities on 01/02/19: Left popliteal vein thrombosis. Probable partial thrombosis of the right posterior tibial vein -heparin drip was started on 01/02/19 and coumadin was started and patient also placed on protonics to prevent GI bleed risk while on systemic anticoagulation -01/03/19 VQ scan: Bilateral perfusion defects suggesting a moderate to high probability of pulmonary embolus. -given that patient was previously hospitalized prior to this admission, it is unclear whether deep vein thrombosis or possibly pulomonary embolism was present prior to this hospitalization -however the thromboembolism is being treated as an acute diagnosis given that they were found on this admission and the plan was to treat with IV heparin and bridge to coumadin with goal INR between 2 to 3 -as of 01/08/19 INR is 2.2 which is first therapeutic level INR when on heparin and coumadin; IV heparin stopped. continue coumadin as 3 mg daily -as of 01/09/19: INR is 2.7, will hold coumadin and recheck by 01/10/19 to see if INR becomes too elevated -01/10/19 INR is 2.3, continue coumadin as 2.5 mg daily (2) Non-ST elevated myocardial infarction: -troponins peaked at 0.847 -echocardiogram shows on this admission shows that There is global hypokineses with severe hypokinesis of apical septum and anterior inferior wall -continue aspirin daily, metoprolol succinate as 12.5 mg TID, nifedipine 30 mg daily Acute on Chronic systolic Heart failure -CXR: Cardiomegaly. Small left pleural effusion. Findings of congestive heart failure -echocardiogram with depressed ejection fraction of 30% to 35% - repeat CXR: no change in small BP pleural effusion - continue oral Lasix 40mg BID -as of 01/09/19 lifted the fluid restriction from 1200 ml daily to 1500 ml daily, stop the salt restrictions because of chronic hyponatremia Urinary retention -has been on chronic miller -01/06/19: the patient due for miller replacement as per patient's daughter -01/07/19: Patient had declined miller removal yesterday. Have explained to patient that being in hospital will allow safest way for trial of void and then if need be, a new miller can be placed. Patient very anxious about any trial of void because she is worried that she will develop severe kidney problems if she cannot urinate without miller. had spoken with patient to at least allow nurse to do new miller replacement to prevent risk of urinary tract infection. a new miller was exchanged on 01/07/19 Valvular Heart disease: Moderate Mitral Regurgitation Moderate to Severe Tricuspid Regurgitation -medical management with diuresis as above Hyponatremia -chronic hyponatremia and on salt tabs as Outpatient. complex physiologies driving hyponatremia - low solute diet, heart failure with fluid overload, being on diuretics -will try to maintain serum sodium in upper 120s to low 130s -currently is 132 as of 01/10/19 Hypokalemia -resolved Hypomagnesemia -has resolved during this hospital stay Chronic Kidney Disease stage IV -monitor renal function Anemia -Hgb trended below 8 on 12/24/18 when on heparin drip and 1 unit PRBC was transfused - Hg stable so far -has been given epoetin by nephrology on this admission Hypothyroidism -continue home dose levothyroxine Anxiety -ativan prn -citalopram dry eyes -area around left eye with dried exudate -visine daily prn to left eye DVT prophylaxis. coumadin Full code Patient's daughter Ms. Soni Domínguez [phone] DVT ppx: on patient awaits approval and bed to [facility] Subjective Patient seen and examined at bedside. breathing on room air. no chest pain. no abdomen pain. left muscle low back pain that got better today. no distress. no vomiting. no fever Physical Exam Constitutional: + thin Eyes: PERRL, conjunctivae normal, anicteric sclerae EOM intact bilaterally ENMT: external ear and nose normal, oropharynx normal Neck: trachea midline, no thyromegaly normal visual inspection Respiratory: normal respiratory effort (diminished lung sounds at the lung bases bilaterally) Cardiovascular: Rate/Rhythm: regular rate and regular rhythm Gastrointestinal (Abdomen): normal bowel sounds, soft, nontender, no hepatosplenomegaly Musculoskeletal: Head/Neck/Chest: normocephalic and head atraumatic Neurologic: PERRL, EOMI, accommodation nl, no face palsy, no dysarthria Psychiatric: Orientation: alert and cooperative Eye Contact: good eye contact Mood: + anxious mood Genitourinary: + bladder abnormality (miller in place) Results & Data Vital Signs (Past 12 Hours) Vital Signs Temp Pulse Resp BP Pulse Ox 01/10/19 07:13 36.4 C L 59 L 18 119/63 98
[2019-01-10] MEDS ORDERED: WARFARIN SOD 2.5 MG TAB PO SCH (16:00)
--- NOTE | 2019-01-10 19:40 | Nephrology Progress Note ---
Date of Service January 10, 2019 Assessment & Plan (1) Hyponatremia: Pt w/ chronic hyponatremia and on salt tabs as OP. complex physiologies driving hyponatremia >> low solute diet, new systolic HF, R heart failure with marked fluid overload; Na at 132 on 01/10 -cont FR 1.2L daily -daily STANDING wts are very important for her care and much appreciated > 53.1 on 12/30 > 53.8 12/31>54.8 01/05 -encourage po intake > protein shakes do not count toward fluid limit and should not replace meal -<2 gm daily Na ordered -Continue lasix 40mg po bid (2) CKD (chronic kidney disease), stage IV: CKD stage IV with baseline creatinine between 1.6-2; admitted w/ NSTEMI and new onset systolic HF after recent admission here for conservatively managed SBO >Creatinine up to 2 today. No indication for urgent dialysis. We will continue to monitor renal function. -daily bmp -Continue Lasix for volume management as above -Avoid nephrotoxins unless lifesaving. (3) CHF exacerbation: -<2 gm daily Na diet ordered -FR 1.2L/ day -Lasix as above >>DAILY STANDING weights very important to manage this pt -strict I/O (4) Non-ST elevated myocardial infarction: She is on metoprolol. Cardiology on board (5) Anemia, chronic disease: on epo as OP -transferrin sat on 12/08 was 38% -monitor daily -We will continue Epogen 10,000units subcutaneous weekly-given 12/29, 01/07. Will give one dose on day of discharge if leaving this week -Hb 10.3 today Subjective Patient seen during morning rounds for CKD and hyponatremia. She feels better today. She is more awake. She ate all her breakfast. No diarrhoea Review of Systems Review of Systems: All systems reviewed & are unremarkable except as noted in HPI & below Physical Exam Physical Exam: General exam: Appears comfortable, no acute distress HEENT: Pupils are equal and reactive to light Neck: No JVD, neck is supple trachea is midline Respiratory system: Clear breath sounds bilaterally. Gastrointestinal: Abdomen is soft, non distended, non tender, bowel sounds are present CVS: Regular rate and rhythm. No murmurs, rubs or gallops Musculoskeletal: No joint or muscle tenderness Extremities: Non tender, no edema, peripheral pulses are present Neuro: Oriented, no tremors, no focal neurological deficits Skin: No rashes Results & Data Vital Signs (Past 12 Hours) Vital Signs Temp Pulse Resp BP Pulse Ox 01/10/19 15:49 36.6 C 72 20 132/64 98 Laboratory Results Laboratory Results - last 24 hr 01/10/19 01/10/19 01/10/19 07:04 07:04 07:04 WBC 4.43 L RBC 3.07 L Hgb 10.3 L Hct 31.7 L MCV 103.3 H MCH 33.6 MCHC 32.5 RDW Std Deviation 57.4 H RDW Coeff of Liss 15.5 H Plt Count 170 MPV 9.9 PT 22.4 H INR 2.3 H Sodium 132 L Potassium 4.1 Chloride 93 L Carbon Dioxide 34 H Anion Gap 5.0 BUN 54 H Creatinine 2.06 H Est Cr Clr Drug Dosing 13.6 Est GFR ( Amer) 24.3 Est GFR (Non-Af Amer) 21.0 BUN/Creatinine Ratio 26.4 H Glucose 78 Calcium 9.2 Total Bilirubin 0.4 AST 25 ALT 27 Alkaline Phosphatase 88 Total Protein 6.4 Albumin 3.0 L Globulin 3.4 Albumin/Globulin Ratio 0.9 (1) CHF exacerbation Heart failure type: unspecified Qualified Code(s): I50.9 - Heart failure, unspecified
[2019-01-11] MEDS: ACETAMINOPHEN 325 MG TAB PO PRN (01:19)
[2019-01-11] MEDS: LORazepam 1 MG TAB PO PRN (01:20)
[2019-01-11] MEDS: LEVOTHYROXINE SODIUM 88 MCG TABLET PO SCH (05:57)
[2019-01-11] MEDS: ISOSORBIDE DINITRATE 10 MG TAB PO SCH ×2 (05:57→12:00)
[2019-01-11] MEDS: ATORVASTATIN 10 MG TAB PO SCH (08:30)
[2019-01-11] MEDS: CITALOPRAM 20 MG TAB PO SCH (08:30)
[2019-01-11] MEDS: METOPROLOL SUCC 25MG EXT REL TAB PO SCH (08:31)
[2019-01-11] MEDS: PANTOprazole 40 MG TAB PO SCH (08:31)
[2019-01-11] MEDS: NIFEdipine EXTENDED REL 30 MG TABCR PO SCH (08:31)
[2019-01-11] MEDS: FUROSEMIDE 40 MG TAB PO SCH (08:32)
[2019-01-11] MEDS: ASPIRIN 81 MG ECTAB PO SCH (08:32)
[2019-01-11] MEDS: DOCUSATE SODIUM 100 MG CAP PO SCH (08:36)
[2019-01-11 08:42] LABS: INR 2.2 (0.9-1.1); Prothrombin Time 21.1 Seconds (9.0-12.0)
--- NOTE | 2019-01-11 12:32 | Hospitalist Progress Note ---
Date of Service January 11, 2019 Assessment & Plan (1) DVT (deep venous thrombosis): -Hospital admission for NSTEMI for which patient completed 48 hours of heparin IV -subsequently heparin IV was stopped and placed on SCDs as patient was anemic and considered to be fall risk -ultrasound lower extremities on 01/02/19: Left popliteal vein thrombosis. Probable partial thrombosis of the right posterior tibial vein -heparin drip was started on 01/02/19 and coumadin was started and patient also placed on protonics to prevent GI bleed risk while on systemic anticoagulation -01/03/19 VQ scan: Bilateral perfusion defects suggesting a moderate to high probability of pulmonary embolus. -given that patient was previously hospitalized prior to this admission, it is unclear whether deep vein thrombosis or possibly pulomonary embolism was present prior to this hospitalization -however the thromboembolism is being treated as an acute diagnosis given that they were found on this admission and the plan was to treat with IV heparin and bridge to coumadin with goal INR between 2 to 3 -as of 01/08/19 INR is 2.2 which is first therapeutic level INR when on heparin and coumadin; IV heparin stopped. continue coumadin as 3 mg daily -as of 01/09/19: INR is 2.7, will hold coumadin and recheck by 01/10/19 to see if INR becomes too elevated -01/10/19 INR is 2.3, continue coumadin as 2.5 mg daily -01/11/19 INR is 2.2 continue coumadin as 2.5 mg daily; Patient will need follow up with primary care doctor in 3 to 7 days; Patient will need repeat INR check in those times while on coumadin (2) Non-ST elevated myocardial infarction: -troponins peaked at 0.847 -echocardiogram shows on this admission shows that There is global hypokineses with severe hypokinesis of apical septum and anterior inferior wall -continue aspirin daily, metoprolol succinate as 12.5 mg TID, nifedipine 30 mg daily Acute on Chronic systolic Heart failure -CXR: Cardiomegaly. Small left pleural effusion. Findings of congestive heart failure -echocardiogram with depressed ejection fraction of 30% to 35% - repeat CXR: no change in small BP pleural effusion - continue oral Lasix 40mg BID -as of 01/09/19 lifted the fluid restriction from 1200 ml daily to 1500 ml daily - continue to keep salt as less than 2 grams as outpatient Urinary retention with chronic miller use -has been on chronic miller -01/06/19: the patient due for miller replacement as per patient's daughter -01/07/19: Patient had declined miller removal yesterday. Have explained to patient that being in hospital will allow safest way for trial of void and then if need be, a new miller can be placed. Patient very anxious about any trial of void because she is worried that she will develop severe kidney problems if she cannot urinate without miller. had spoken with patient to at least allow nurse to do new miller replacement to prevent risk of urinary tract infection. a new miller was exchanged on 01/07/19 Valvular Heart disease: Moderate Mitral Regurgitation Moderate to Severe Tricuspid Regurgitation -medical management with diuresis as above Hyponatremia -chronic hyponatremia and on salt tabs as Outpatient. complex physiologies driving hyponatremia - low solute diet, heart failure with fluid overload, being on diuretics -will try to maintain serum sodium in upper 120s to low 130s -currently is 132 as of 01/10/19 Hypokalemia -resolved Hypomagnesemia -has resolved during this hospital stay Chronic Kidney Disease stage IV -monitor renal function Anemia -Hgb trended below 8 on 12/24/18 when on heparin drip and 1 unit PRBC was transfused - Hg stable so far -has been given epoetin x doses by nephrology on this admission Hypothyroidism -continue home dose levothyroxine Anxiety -ativan prn -citalopram dry eyes -area around left eye with dried exudate -visine daily prn to left eye DVT prophylaxis. coumadin Full code Patient's daughter Ms. Soni Domínguez [phone] DVT ppx: on couamdin Discharge Diagnosis Non-ST elevated myocardial infarction, Acute on Chronic systolic Heart failure, Valvular Heart disease, Chronic Kidney Disease stage IV, Anemia, Hypomagnesemia, Hyponatremia, Anxiety, Hypothyroidism, deep vein thrombosis of Lower extremities/Pulmonary Embolism, Anticoagulated by anticoagulation therapy, urinary retention with chronic miller use Discharge to [facility] for physical rehabilitation with miller Patient will need follow up with primary care doctor in 3 to 7 days Patient will need repeat INR check in those times while on coumadin Patient will need to take other new discharge medications furosemide, isosorbide, metoprolol succinate as prescribed appointment line has been contacted to help make appoint for cardiology clinic in 2 weeks, will need to get confirmed appointment by patient or custodial [facility] Address: [address], [place], [place] [address] Other appointments 01/19/2019 3:30 PM [facility] 10[facility]40 AM Provider Lisa Rodriguez MD Department Nephrology, [facility] Call your Primary Care doctor if any of the following symptoms or problems start or get worse: * Shortness of breath or difficulty breathing * Wake up at night short of breath * Chest pain * Cough * Swelling of your hands, feet, or legs * More fatigued or tired with your normal activity * Palpitations - sudden fast heart beats WEIGHT * Weigh yourself every morning after using the bathroom. * Use the same scale. * Wear the same amount of clothing. * Write your weight down on a chart. * Call your Primary Care doctor if you gain more than 2-3 pounds in 1-2 days. MEDICATIONS * Use this discharge instruction sheet for medication instructions. * Take your medications at the time your doctor ordered. * Do not skip a dose of your medicines. * If you miss a dose of medicine, take it as soon as possible, but DO NOT DOUBLE A DOSE. * Read your medicine information when you get home. * Know all of the side effects of your medicine. If in doubt, ask your pharmacist * Call your Primary Care doctor's office if you have any side effects. * Be sure all of your doctors know what medicine and herbs you take (including cold, flu, and herbal medicine). Take the following with you to your follow-up doctor appointments: * Weight Chart * Medication List * List of questions Do not drink excessive alcohol, beer or wine. Subjective Patient ambulatory with walker with therapist while breathing on room air. no chest pain. no shortness of breath. no vomiting. good lung exam. no acute swelling of legs. no fever. Physical Exam Constitutional: + thin Eyes: PERRL, conjunctivae normal, anicteric sclerae EOM intact bilaterally ENMT: external ear and nose normal, oropharynx normal Neck: trachea midline, no thyromegaly normal visual inspection Respiratory: normal respiratory effort, lungs clear to auscultation Cardiovascular: RRR, no murmur, no edema Rate/Rhythm: regular rate and regular rhythm Gastrointestinal (Abdomen): normal bowel sounds, soft, nontender, no hepatosplenomegaly Musculoskeletal: Head/Neck/Chest: normocephalic and head atraumatic Neurologic: PERRL, EOMI, accommodation nl, no face palsy, no dysarthria Psychiatric: Orientation: alert and cooperative Eye Contact: good eye contact Mood: + anxious mood Genitourinary: + bladder abnormality (miller in place) Results & Data Vital Signs (Past 12 Hours) Vital Signs Temp Pulse Resp BP Pulse Ox 01/11/19 05:55 36.5 C 65 18 134/65 95
--- NOTE | 2019-01-11 12:42 | Discharge Summary ---
Date of Service January 11, 2019 Admission HPI Per Admitting Provider History obtained from patient, family, and records. Medical history significant for chronic distant heart failure (EF 50 to 65% TTE 2017), paroxysmal atrial flutter, hypertension, TAA as per records, hypothyroidism, COPD as per records, CRI (baseline creatinine 1.8), chronic anemia, (baseline hemoglobin 9), anxiety disorder. Recent confinement last week for SBO-resolved with conservative management. As per patient's daughter, patient noted intermittent shortness of breath more so on exertion upon arrival at home. No chest pain, no cough symptoms. Legs more swollen than usual. Patient noted to be 10 pounds heavier than usual on follow-up at PCPs office today. At the ER, patient given Lasix for CHF. Medical History as above Surgical History : Appendectomy, dental procedure, D&C, cholecystectomy, hysterectomy Family History : Heart disease, seizures, thyroid problems Personal/Social history : Non-smoker, no EtOH intake, retired [employer] Admission Exam Per Admitting Provider GENERAL: Anxious, slightly hard of hearing , no respiratory distress, frail SKIN: Pallor, warm HEENT: Pale palpebral conjunctivae, no ptosis, dry buccal mucosa, nasal cannula in place NECK : Supple, no tenderness CHEST : Decreased breath sounds, no tenderness HEART : RRR, systolic murmur ABDOMEN: Some distention, nontender EXTREMITIES : ang[place] LE swelling, no tenderness (R>L), no other conspicuous deformities noted NEUROLOGIC : Coherent, no facial asymmetry, mild hearing impairment, no other gross focality Principal Diagnosis Non-ST elevated myocardial infarction, Acute on Chronic systolic Heart failure, Valvular Heart disease, Chronic Kidney Disease stage IV, Anemia, Hypomagnesemia, Hyponatremia, Anxiety, Hypothyroidism, deep vein thrombosis of Lower extremities/Pulmonary Embolism, Anticoagulated by anticoagulation therapy, urinary retention with chronic miller use Discharge Exam Constitutional + thin Eyes PERRL, conjunctivae normal, anicteric sclerae EOM intact bilaterally ENMT external ear and nose normal, oropharynx normal Neck trachea midline, no thyromegaly normal visual inspection Respiratory normal respiratory effort, lungs clear to auscultation normal respiratory effort (diminished lung sounds at the lung bases bilaterally) Auscultation: + crackles Cardiovascular RRR, no murmur, no edema Rate/Rhythm: regular rate and regular rhythm Extremities: + edema (bilateral leg edema) Gastrointestinal (Abdomen) normal bowel sounds, soft, nontender, no hepatosplenomegaly Musculoskeletal Head/Neck/Chest: normocephalic and head atraumatic Neurologic PERRL, EOMI, accommodation nl, no face palsy, no dysarthria Psychiatric Orientation: alert and cooperative Eye Contact: good eye contact Mood: + anxious mood Genitourinary + bladder abnormality (miller in place) Discharge Data Allergies Allergy/AdvReac Type Severity Reaction Status Date / Time Penicillins Allergy Intermediate HIVES Verified 12/10/18 05:13 iron AdvReac Mild n&v, abd Verified 12/10/18 05:13 pain Venofer AdvReac Mild n&v, abd Verified 02/28/18 08:54 pain Consultations 12/21/18 19:41 ED Decision to Admit Stat 12/21/18 20:52 Consult Cardiology Routine 12/22/18 16:32 Consult Nephrology Routine Ordered Studies 01/02/19 13:25 US venous doppler [facility] Stat Hospital Course (1) DVT (deep venous thrombosis): -Hospital admission for NSTEMI for which patient completed 48 hours of heparin IV -subsequently heparin IV was stopped and placed on SCDs as patient was anemic and considered to be fall risk -ultrasound lower extremities on 01/02/19: Left popliteal vein thrombosis. Probable partial thrombosis of the right posterior tibial vein -heparin drip was started on 01/02/19 and coumadin was started and patient also placed on protonics to prevent GI bleed risk while on systemic anticoagulation -01/03/19 VQ scan: Bilateral perfusion defects suggesting a moderate to high probability of pulmonary embolus. -given that patient was previously hospitalized prior to this admission, it is unclear whether deep vein thrombosis or possibly pulomonary embolism was present prior to this hospitalization -however the thromboembolism is being treated as an acute diagnosis given that they were found on this admission and the plan was to treat with IV heparin and bridge to coumadin with goal INR between 2 to 3 -as of 01/08/19 INR is 2.2 which is first therapeutic level INR when on heparin and coumadin; IV heparin stopped. continue coumadin as 3 mg daily -as of 01/09/19: INR is 2.7, will hold coumadin and recheck by 01/10/19 to see if INR becomes too elevated -01/10/19 INR is 2.3, continue coumadin as 2.5 mg daily -01/11/19 INR is 2.2 continue coumadin as 2.5 mg daily; Patient will need follow up with primary care doctor in 3 to 7 days; Patient will need repeat INR check in those times while on coumadin (2) Non-ST elevated myocardial infarction: -troponins peaked at 0.847 -echocardiogram shows on this admission shows that There is global hypokineses with severe hypokinesis of apical septum and anterior inferior wall -continue aspirin daily, metoprolol succinate as 12.5 mg TID, nifedipine 30 mg daily Acute on Chronic systolic Heart failure -CXR: Cardiomegaly. Small left pleural effusion. Findings of congestive heart failure -echocardiogram with depressed ejection fraction of 30% to 35% - repeat CXR: no change in small BP pleural effusion - continue oral Lasix 40mg BID -as of 01/09/19 lifted the fluid restriction from 1200 ml daily to 1500 ml daily - continue to keep salt as less than 2 grams as outpatient Urinary retention with chronic miller use -has been on chronic miller -01/06/19: the patient due for milelr replacement as per patient's daughter -01/07/19: Patient had declined miller removal yesterday. Have explained to patient that being in hospital will allow safest way for trial of void and then if need be, a new miller can be placed. Patient very anxious about any trial of void because she is worried that she will develop severe kidney problems if she cannot urinate without miller. had spoken with patient to at least allow nurse to do new miller replacement to prevent risk of urinary tract infection. a new miller was exchanged on 01/07/19 Valvular Heart disease: Moderate Mitral Regurgitation Moderate to Severe Tricuspid Regurgitation -medical management with diuresis as above Hyponatremia -chronic hyponatremia and on salt tabs as Outpatient. complex physiologies driving hyponatremia - low solute diet, heart failure with fluid overload, being on diuretics -will try to maintain serum sodium in upper 120s to low 130s -currently is 132 as of 01/10/19 Hypokalemia -resolved Hypomagnesemia -has resolved during this hospital stay Chronic Kidney Disease stage IV -monitor renal function Anemia -Hgb trended below 8 on 12/24/18 when on heparin drip and 1 unit PRBC was transfused - Hg stable so far -has been given epoetin x doses by nephrology on this admission Hypothyroidism -continue home dose levothyroxine Anxiety -ativan prn -citalopram dry eyes -area around left eye with dried exudate -visine daily prn to left eye DVT prophylaxis. coumadin Full code Patient's daughter Ms. Soni Domínguez [phone] DVT ppx: on couamdin Discharge Diagnosis Non-ST elevated myocardial infarction, Acute on Chronic systolic Heart failure, Valvular Heart disease, Chronic Kidney Disease stage IV, Anemia, Hypomagnesemia, Hyponatremia, Anxiety, Hypothyroidism, deep vein thrombosis of Lower extremities/Pulmonary Embolism, Anticoagulated by anticoagulation therapy, urinary retention with chronic miller use Discharge to [facility] for physical rehabilitation with miller Patient will need follow up with primary care doctor in 3 to 7 days Patient will need repeat INR check in those times while on coumadin Patient will need to take other new discharge medications furosemide, isosorbi de, metoprolol succinate as prescribed appointment line has been contacted to help make appoint for cardiology clinic in 2 weeks, will need to get confirmed appointment by patient or group home [facility] Address: [address] [place] [address], [place] [address] Other appointments 01/19/2019 3:30 PM [facility] 10[facility]40 AM Provider Lisa Rodriguez MD Department Nephrology, [facility] Call your Primary Care doctor if any of the following symptoms or problems start or get worse: * Shortness of breath or difficulty breathing * Wake up at night short of breath * Chest pain * Cough * Swelling of your hands, feet, or legs * More fatigued or tired with your normal activity * Palpitations - sudden fast heart beats WEIGHT * Weigh yourself every morning after using the bathroom. * Use the same scale. * Wear the same amount of clothing. * Write your weight down on a chart. * Call your Primary Care doctor if you gain more than 2-3 pounds in 1-2 days. MEDICATIONS * Use this discharge instruction sheet for medication instructions. * Take your medications at the time your doctor ordered. * Do not skip a dose of your medicines. * If you miss a dose of medicine, take it as soon as possible, but DO NOT DOUBLE A DOSE. * Read your medicine information when you get home. * Know all of the side effects of your medicine. If in doubt, ask your pharmacist * Call your Primary Care doctor's office if you have any side effects. * Be sure all of your doctors know what medicine and herbs you take (including cold, flu, and herbal medicine). Take the following with you to your follow-up doctor appointments: * Weight Chart * Medication List * List of questions Do not drink excessive alcohol, beer or wine. Total Time Total Time Spent Total Time Spent (In Minutes): 40 minutes Total Time Includes: Examination of the Patient, Discharge Planning and Com munication With Other Providers Discharge Plan Discharge Items Patient Disposition: Transfer Nursing Home Fac Reason For Visit: CHF Discharge Diagnosis: Non-ST elevated myocardial infarction, Acute on Chronic systolic Heart failure, Valvular Heart disease, Chronic Kidney Disease stage IV, Anemia, Hypomagnesemia, Hyponatremia, Anxiety, Hypothyroidism, deep vein thrombosis of Lower extremities/Pulmonary Embolism, Anticoagulated by anticoagulation therapy, urinary retention with chronic miller use Condition: Good Discharge Goals: Improve disease control Activity: Resume your previous activity Non-emergency contact: Primary Care Provider Call non-emergency contact if: you have any medication questions Follow-up/Referrals: Yogesh Quevedo MD [Primary Care Provider] - Diet: Low Sodium (2gm) Fluids: 1500ml (6 cups) Addtl Provider Instructions: Discharge to [facility] for physical rehabilitation with miller Patient will need follow up with primary care doctor in 3 to 7 days Patient will need repeat INR check in those times while on coumadin Patient will need to take other new discharge medications furosemide, isosorbide, metoprolol succinate as prescribed appointment line has been contacted to help make appoint for cardiology clinic in 2 weeks, will need to get confirmed appointment by patient or group home [facility] Address: [address] [place] [address], [place] [address] Other appointments 01/19/2019 3:30 PM [facility] 10:40 AM Provider Lisa Rodriguez MD Department Nephrology, [facility] Call your Primary Care doctor if any of the following symptoms or problems start or get worse: * Shortness of breath or difficulty breathing * Wake up at night short of breath * Chest pain * Cough * Swelling of your hands, feet, or legs * More fatigued or tired with your normal activity * Palpitations - sudden fast heart beats WEIGHT * Weigh yourself every morning after using the bathroom. * Use the same scale. * Wear the same amount of clothing. * Write your weight down on a chart. * Call your Primary Care doctor if you gain more than 2-3 pounds in 1-2 days. MEDICATIONS * Use this discharge instruction sheet for medication instructions. * Take your medications at the time your doctor ordered. * Do not skip a dose of your medicines. * If you miss a dose of medicine, take it as soon as possible, but DO NOT DOUBLE A DOSE. * Read your medicine information when you get home. * Know all of the side effects of your medicine. If in doubt, ask your pharmacist * Call your Primary Care doctor's office if you have any side effects. * Be sure all of your doctors know what medicine and herbs you take (including cold, flu, and herbal medicine). Take the following with you to your follow-up doctor appointments: * Weight Chart * Medication List * List of questions Do not drink excessive alcohol, beer or wine. Prescriptions: New furosemide 40 mg Tablet 40 mg PO BID17 30 Days Qty: 30 RF: 0 isosorbide dinitrate 10 mg Tablet 10 mg PO DAILY@0700,1200,1700 30 Days Qty: 90 RF: 0 warfarin [Coumadin] 2.5 mg Tablet 2.5 mg PO DAILY@1600 30 Days Qty: 30 RF: 0 metoprolol succinate 25 mg Tablet Extended Release 24 Hr 12.5 mg PO TID 30 Days Qty: 45 RF: 0 Naphcon-A 0.025-0.3 % Drops 1 drp ophthalmic (eye) DAILY PRN (Reason: left eye irritation) 5 Days Qty: 0.5 RF: 0 Continued nifedipine 30 mg tablet extended release 24hr 30 mg PO DAILY RF: 0 citalopram 10 mg tablet 5 mg PO DAILY RF: 0 aspirin 81 mg Tablet,Delayed Release (Dr/Ec) 81 mg PO DAILY RF: 0 levothyroxine 88 mcg tablet 88 mcg PO DAILY RF: 0 lorazepam 0.5 mg tablet 1 mg PO Q8H PRN (Reason: Anxiety) RF: 0 pantoprazole 40 mg tablet,delayed release (DR/EC) 40 mg PO DAILY RF: 0 ranitidine HCl 150 mg tablet 150 mg PO QAM RF: 0 Procrit 10,000 unit/mL Solution 10,000 unit subcut Q14D RF: 0 epoetin lalita 10,000 unit/mL Solution 10,000 units subcut DIRECTED RF: 0 atorvastatin 10 mg Tablet 10 mg PO DAILY RF: 0 cholecalciferol (vitamin D3) 1,000 unit Capsule 1,000 unit PO DAILY RF: 0 docusate sodium 100 mg Capsule 100 mg PO BID RF: 0 magnesium oxide 400 mg magnesium Tablet 400 mg PO DAILY RF: 0 Nepro Carb Steady 0.08 gram-1.8 kcal/mL Liquid 1 can PO BID RF: 0 polyethylene glycol 3350 [Miralax] 17 gram/dose Powder 17 g PO DAILY PRN (Reason: Constipation) RF: 0 triamcinolone acetonide 0.1 % Cream 1 applic TOPICAL BID RF: 0 Shingrex 50 mcg INJ DIRECTED RF: 0 Discontinued sodium chloride 1 gram tablet 1 g PO DAILY RF: 0 bumetanide 1 mg tablet 0.5 mg PO QAM RF: 0 metoprolol tartrate 25 mg tablet 12.5 mg PO BID RF: 0 acetaminophen 650 mg Tablet Extended Release 650 mg PO Q8H PRN (Reason: pain/fever) RF: 0 Stand-Alone Forms: [facility] Discharge Orders: Discharge Order (Routine); Ordered 01/11/19 Ordered By: Ramez Fam Skilled Items Patient informed of condition?: Yes DNR: No Discharge Level of Care: Skilled Communicable Disease: No Discharge Prognosis: Stable Admission Data Admit Date/Time: 12/21/18 20:51 Attending Provider: Ramez Fam Admit Provider: Hao Altamirano Primary Care Provider: Yogesh Quevedo Other Providers: Ramez Fam ; Hao Altamirano ; Jefry Nolasco ; Josué Navarro ; Sheng Gordon ; Leon Sykes ; Yasir Hurst ; Rob Quiles ; Birgit Irizarry ; Bee Carlin ; Lisa Rodriguez Service: Medical
--- NOTE | 2019-01-11 15:07 | Nephrology Progress Note ---
Date of Service January 11, 2019 Assessment & Plan (1) Hyponatremia: Pt w/ chronic hyponatremia and on salt tabs as OP. complex physiologies driving hyponatremia >> low solute diet, new systolic HF, R heart failure with marked fluid overload; Na at 132 on 01/10 -cont FR 1.2L daily at rehab -daily STANDING wts are very important for her care and much appreciated > 53.1 on 12/30 > 53.8 12/31>54.8 01/05 -encourage po intake > protein shakes do not count toward fluid limit and should not replace meal -<2 gm daily Na ordered -Continue lasix 40mg po bid -She will need follow-up with nephrology in 2 to 3 weeks. She will need repeat BMP next week this can be sent to Dr. Rodriguez or PCP (2) CKD (chronic kidney disease), stage IV: CKD stage IV with baseline creatinine between 1.6-2; admitted w/ NSTEMI and new onset systolic HF after recent admission here for conservatively managed SBO >Creatinine at baseline. No indication for urgent dialysis. -BMP next week to rehab -Continue Lasix for volume management as above -Avoid nephrotoxins unless lifesaving. (3) CHF exacerbation: -<2 gm daily Na diet ordered -FR 1.2L/ day -Lasix as above >>DAILY STANDING weights very important to manage this pt -strict I/O (4) Non-ST elevated myocardial infarction: She is on metoprolol. Cardiology on board (5) Anemia, chronic disease: on epo as OP -transferrin sat on 12/08 was 38% -monitor daily -We will continue Epogen 10,000units subcutaneous weekly-given 12/29, 01/07. Continue Epogen 10,000 units sc weekly at rehab for target hemoglobin between 10-11 -Hb 10.3 today Subjective CKD 4 seen in follow-up for hyponatremia. She feels better denies any shortness of breath or lower extremity swelling. She is complaining of back pain. She is planned for discharge to [facility] Review of Systems Review of Systems: All systems reviewed & are unremarkable except as noted in HPI & below Physical Exam Physical Exam: General exam: Appears comfortable, no acute distress HEENT: Pupils are equal and reactive to light Neck: No JVD, neck is supple trachea is midline Respiratory system: Clear breath sounds bilaterally. Gastrointestinal: Abdomen is soft, non distended, non tender, bowel sounds are present CVS: Regular rate and rhythm. No murmurs, rubs or gallops Musculoskeletal: No joint or muscle tenderness Extremities: Non tender, no edema, peripheral pulses are present Neuro: Oriented, no tremors, no focal neurological deficits Skin: No rashes Results & Data Vital Signs (Past 12 Hours) Vital Signs Temp Pulse Pulse Resp BP BP Pulse Ox 01/11/19 13:43 36.5 C 69 71 20 122/63 133/51 L 99 01/11/19 13:10 71 20 122/63 99 01/11/19 05:55 36.5 C 65 18 134/65 95 Laboratory Results Laboratory Results - last 24 hr 01/11/19 08:00 PT 21.1 H INR 2.2 H (1) CHF exacerbation Heart failure type: unspecified Qualified Code(s): I50.9 - Heart failure, unspecified
== END 2019-01-11 14:30 | DRG 280 ==
LOC: ED 17:51 → SUATTDRO 20:51 → 2S 20:51 → 4W 01-07 14:40

== ENCOUNTER 2019-05-07 23:01 | Inpatient (IN) ==
[2019-05-07] MEDS ORDERED: LORazepam 0.5 MG/1 ML VIAL IV STA (23:52)
[2019-05-08 00:01] LABS: Basophils # (auto) 0.02 K/uL (0-0.2); Basophils % (auto) 0.4 %; Eosinophils # (auto) 0.14 K/uL (0-0.5); Eosinophils % (auto) 2.8 %; Hemoglobin 9.3 g/dL (12.0-16.0); Lymphocytes % (auto) 35.9 %; Mean Corpuscular Hgb Conc 33.2 g/dL (32-36); Mean Corpuscular Volume 105.3 fL (80-100); Mean Platelet Volume 10.2 fL (7.4-10.4); Monocytes # (auto) 0.45 K/uL (0.11-0.59); Neutrophils # (auto) 2.61 K/uL (1.4-6.5); Neutrophils % (auto) 51.9 %; Platelet Count 172 K/uL (130-400); RDW Coefficient of Variation 13.4 % (11.5-14.5); RDW Standard Deviation 50.8 fL (36.4-46.3); Red Blood Count 2.66 M/uL (4.2-5.4); White Blood Count 5.02 K/uL (4.8-10.8)
[2019-05-08 00:09] LABS: Alanine Aminotransferase 24 U/L (12-78); Albumin Level 3.7 gm/dl (3.4-5.0); Aspartate Aminotransferase 28 U/L (15-37); BUN Creatinine Ratio 22.1 (10-20); Blood Urea Nitrogen 65 mg/dl (7-18); Carbon Dioxide 32 mmol/L (21-32); Chloride 100 mmol/L (98-107); Est GFR (African American) 15.8; Est GFR (Non-African American) 13.6; Glucose 98 mg/dl (70-99); Lipase 204 U/L (73-393); Potassium 4.3 mmol/L (3.5-5.1); Sodium 137 mmol/L (136-145)
[2019-05-08 00:14] LABS: Alkaline Phosphatase 88 U/L (45-117); Bilirubin,Total 0.3 mg/dl (0.2-1); Globulin 3.7 gm/dl (2.5-4.0); Total Protein 7.4 gm/dl (6.4-8.2); Troponin I < 0.015 ng/ml (0-0.045)
[2019-05-08] MEDS ORDERED: SODIUM CHLORIDE 0.9% 500 ML IV ONE ×2 (00:35→05:02)
[2019-05-08 02:53] LABS: INR 2.5 (0.9-1.1); Partial Thromboplastin Ratio 1.2; Partial Thromboplastin Time 32.6 Seconds (21.0-31.0); Prothrombin Time 23.7 Seconds (9.0-12.0)
[2019-05-08 03:02] LABS: Magnesium 2.9 mg/dl (1.8-2.4); Thyroid Stimulating Hormone 0.128 uIu/ml (0.300-4.500)
[2019-05-08] MEDS: AMLODIPINE BESYLATE 5 MG TAB PO SCH (03:13)
[2019-05-08 03:14] LABS: T4 Free Thyroxine 1.55 ng/dl (0.8-1.6)
--- NOTE | 2019-05-08 03:17 | History & Physical Report ---
Date of Service May 08, 2019 Assessment & Plan (1) Chest pain: ? Secondary to uncontrolled BP Anxiety definitely contributory Rule out ACS chronic systolic heart failure (EF 30 to 35%, TTE 2019), patient euvolemic to dry history of valvular heart disease (moderate aortic/mitral/tricuspid regurgitation) 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, INR therapeutic ARF on CRI. Recent diarrheal illness hypothyroidism, euthyroid as of today's TSH chronic anemia secondary to CKD, hemoglobin at baseline past tobacco abuse chronic urinary retention w/ indwelling Villegas catheter OBS PCU Monitor BP, increase Amlodipine Trend troponin Cardio consult in a.m. RE chest pain Baseline UA, monitor creatinine response to cautious IV hydration, hold home diuretic until creatinine at baseline renal ultrasound, Nephrology consult if kidney function does not improve to baseline DVT prophylaxis. Coumadin INR goal between 2-3 if no cardiac testing contemplated Full code Patient's daughter requesting updates from providers. Ms. Soni Domínguez, contact #[phone]. History of Present Illness Chief Complaint: Chest pain Primary Care Provider: Yogesh Quevedo MD History obtained from patient, family, and records. Medical history significant for chronic systolic heart failure (EF 30 to 35%, TTE 2019), history of valvular heart disease (moderate aortic/mitral/tricuspid regurgitation, hypertension, anxiety, depression, GERD, hyperlipidemia, 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, CRI (baseline creatinine 2.4), hypothyroidism, chronic anemia (baseline hemoglobin 8-9), past tobacco abuse, chronic urinary retention w/ indwelling Villegas catheter. Recent confinement January 2019 for acute DVT, moderate to high probability PE on VQ scan, CHF. Patient discharged on Coumadin. Patient woke up from sleep with achy left-sided chest pain going to the shoulder with some shortness of breath. No cough symptoms. Right-sided thumping headache. Appetite not too good the last few days, transient diarrheal illness without belly pain as per patient. Some relief of symptoms with Ativan given at the ER. 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 Allergies Allergy/AdvReac Type Severity Reaction Status Date / Time Penicillins Allergy Intermediate HIVES Verified 05/08/19 00:06 iron AdvReac Mild n&v, abd Verified 05/08/19 00:06 pain Venofer AdvReac Mild n&v, abd Verified 02/28/18 08:54 pain Home Medications Home Medications Medication Instructions Recorded Confirmed Type levothyroxine 88 mcg PO QAM 08/16/18 05/08/19 History ranitidine HCl 150 mg PO BID 08/16/18 05/08/19 History atorvastatin 10 mg PO PM 12/10/18 05/08/19 History cholecalciferol (vitamin D3) 1,000 unit PO QAM 12/10/18 05/08/19 History docusate sodium 100 mg PO BID 12/10/18 05/08/19 History magnesium oxide 400 mg PO QAM 12/10/18 05/08/19 History acetaminophen 650 mg PO Q6H PRN MDD 2g/24hr 02/08/19 05/08/19 History aspirin 81 mg PO QAM 02/08/19 05/08/19 History furosemide 40 mg PO BID 02/08/19 05/08/19 History isosorbide dinitrate 10 mg PO TID 02/08/19 05/08/19 History pantoprazole [Protonix] 40 mg PO QAM 02/08/19 05/08/19 History warfarin [Coumadin] 3 mg PO HS 02/08/19 05/08/19 History escitalopram oxalate 10 mg PO QAM 02/13/19 05/08/19 History metoprolol succinate 12.5 mg PO TID 02/13/19 05/08/19 History buspirone 5 mg PO BID 03/31/19 05/08/19 History cetirizine 10 mg PO BID 03/31/19 05/08/19 History nitroglycerin 0.3 mg SUBLINGUAL UNKNOWN PRN 03/31/19 05/08/19 History triamcinolone acetonide 1 applic TOPICAL BID PRN 03/31/19 05/08/19 History amlodipine 2.5 mg PO DAILY 05/08/19 05/08/19 History Past Med/Surg History Medical History Hypothyroidism (Chronic) CKD (chronic kidney disease), stage IV (Chronic) HTN (hypertension) (Chronic) Anxiety (Chronic) HLD (hyperlipidemia) (Chronic) SIADH (syndrome of inappropriate ADH production) (Chronic) H/O echocardiogram (Chronic) "03/2015 - EF 60-65%, moderate to severe aortic regurgitation" GERD (gastroesophageal reflux disease) (Chronic) Anemia (Acute) Chest pain Closed head injury (Acute) Constipation (Acute) Dizziness Fall (Acute) FRANCES (generalized anxiety disorder) (Chronic) Major depressive disorder, recurrent, moderate (Chronic) Suprapubic pain (Acute) Symptoms involving urinary system (Acute) UTI (urinary tract infection) (Acute) Chronic indwelling Villegas catheter Surgical History Hx of appendectomy (Chronic) Hx of cholecystectomy (Chronic) Hx of dilation and curettage (Chronic) Status post total hip replacement, left (Chronic) Family History Other Hypertension Social History Preferred Language: [place]ian Communication Ability: Effective Behavioral Health Counselor Required: No Beliefs That Will Affect Care: None marital status: / Current Living Situation: Family Current Living Situation Comment: own home, dtr lives w/ her current occupational status: retired Feels Safe at Home: Yes Smoking Status: Never smoker Second Hand Exposure: No ; Hx Alcohol Use: No Hx Substance Use: Yes substance use type: prescription drug Substance Use Type Other:: lorazepam (prescribed) Review of Systems Review of Systems: As per HPI, all 10 systems reviewed, all other ROS negative Physical Exam Physical Exam: GENERAL: Slightly uncomfortable, anxious, slightly hard of hearing, no respiratory distress SKIN: Pallor, warm HEENT: Pale palpebral conjunctivae, no ptosis, dry buccal mucosa NECK : Some limitation in neck motion, no tenderness CHEST : CTA, no tenderness HEART : Bradycardic, systolic murmur ABDOMEN: Soft distention, nontender EXTREMITIES : Minimal LE swelling, no LE tenderness, no other conspicuous deformities noted NEUROLOGIC : Coherent, slightly hard of hearing, no facial asymmetry, no other gross focality Results & Data Vital Signs (Past 12 Hours) Vital Signs Temp Pulse Resp BP Pulse Ox 05/08/19 03:01 58 L 21 160/36 H 100 05/08/19 02:31 58 L 18 163/31 H 100 05/08/19 02:00 61 16 169/42 H 97 05/08/19 01:30 57 L 20 166/40 H 99 05/08/19 01:00 60 22 165/38 H 97 05/08/19 00:30 57 L 16 160/61 H 97 05/08/19 00:00 58 L 15 178/67 H 98 05/07/19 23:30 62 13 170/38 H 98 05/07/19 23:05 37.1 C 61 18 180/88 H 98 Laboratory Results Laboratory Results WBC 5.02 K/uL (4.8-10.8) 05/07/19 23:00 RBC 2.66 M/uL (4.2-5.4) L 05/07/19 23:00 Hgb 9.3 g/dL (12.0-16.0) L 05/07/19 23:00 Hct 28.0 % (37-47) L 05/07/19 23:00 MCV 105.3 fL (80-100) H 05/07/19 23:00 MCH 35.0 pg (25-34) H 05/07/19 23:00 MCHC 33.2 g/dL (32-36) 05/07/19 23:00 RDW Std Deviation 50.8 fL (36.4-46.3) H 05/07/19 23:00 RDW Coeff of Liss 13.4 % (11.5-14.5) 05/07/19 23:00 Plt Count 172 K/uL (130-400) 05/07/19 23:00 MPV 10.2 fL (7.4-10.4) 05/07/19 23:00 Immature Gran % (Auto) 0.0 % 05/07/19 23:00 Neut % (Auto) 51.9 % 05/07/19 23:00 Lymph % (Auto) 35.9 % 05/07/19 23:00 [place] % (Auto) 9.0 % 05/07/19 23:00 Eos % (Auto) 2.8 % 05/07/19 23:00 Baso % (Auto) 0.4 % 05/07/19 23:00 Immature Gran # (Auto) 0.00 K/uL (0.00-0.02) 05/07/19 23:00 Neut # (Auto) 2.61 K/uL (1.4-6.5) 05/07/19 23:00 Lymph # (Auto) 1.80 K/uL (1.2-3.4) 05/07/19 23:00 [place] # (Auto) 0.45 K/uL (0.11-0.59) 05/07/19 23:00 Eos # (Auto) 0.14 K/uL (0-0.5) 05/07/19 23:00 Baso # (Auto) 0.02 K/uL (0-0.2) 05/07/19 23:00 PT 23.7 Seconds (9.0-12.0) H 05/07/19 23:00 INR 2.5 (0.9-1.1) H 05/07/19 23:00 APTT 32.6 Seconds (21.0-31.0) H 05/07/19 23:00 PTT Ratio 1.2 05/07/19 23:00 Sodium 137 mmol/L (136-145) 05/07/19 23:00 Potassium 4.3 mmol/L (3.5-5.1) 05/07/19 23:00 Chloride 100 mmol/L (98-107) 05/07/19 23:00 Carbon Dioxide 32 mmol/L (21-32) 05/07/19 23:00 Anion Gap 6.0 (3-11) 05/07/19 23:00 BUN 65 mg/dl (7-18) H 05/07/19 23:00 Creatinine 2.94 mg/dl (0.6-1.2) H 05/07/19 23:00 Est Cr Clr Drug Dosing 9.0 ml/min 05/07/19 23:00 Est GFR ( Amer) 15.8 05/07/19 23:00 Est GFR (Non-Af Amer) 13.6 05/07/19 23:00 BUN/Creatinine Ratio 22.1 (10-20) H 05/07/19 23:00 Glucose 98 mg/dl (70-99) 05/07/19 23:00 Calcium 9.0 mg/dl (8.5-10.1) 05/07/19 23:00 Magnesium 2.9 mg/dl (1.8-2.4) H 05/07/19 23:00 Total Bilirubin 0.3 mg/dl (0.2-1) 05/07/19 23:00 AST 28 U/L (15-37) 05/07/19 23:00 ALT 24 U/L (12-78) 05/07/19 23:00 Alkaline Phosphatase 88 U/L (45-117) 05/07/19 23:00 Troponin I < 0.015 ng/ml (0-0.045) 05/07/19 23:00 Total Protein 7.4 gm/dl (6.4-8.2) 05/07/19 23:00 Albumin 3.7 gm/dl (3.4-5.0) 05/07/19 23:00 Globulin 3.7 gm/dl (2.5-4.0) 05/07/19 23:00 Albumin/Globulin Ratio 1.0 (0.9-2) 05/07/19 23:00 Lipase 204 U/L (73-393) 05/07/19 23:00 TSH 0.128 uIu/ml (0.300-4.500) L 05/07/19 23:00 Free T4 1.55 ng/dl (0.8-1.6) 05/07/19 23:00 Diagnostic Findings Chest x-ray as per my interpretation atelectasis, cardiomegaly EKG as per my interpretation : Rate 55, sinus bradycardia,1AVB, LVH, T wave inversion inferior leads, ST depression lateral leads, PVCs CT head initial read: Patient motion. No discrete intracranial hemorrhage. Global parenchymal volume loss with chronic microvascular ischemic changes.
[2019-05-08 03:55] LABS: Appearance Urine Cloudy (Clear); Bacteria Urine Automated 4+ (Negative); Bilirubin Urine Negative (Negative); Blood Urine Negative (Negative); Color Urine Yellow; Glucose Urine UA Negative (Negative); Ketones Urine Negative (Negative); Leukocyte Esterase Urine 2+ (Negative); Nitrite Urine Negative (Negative); Protein Urine Negative (Negative); RBC Urine Automated 0-4 /hpf (0-4); Urobilinogen Urine Negative (Negative); WBC Urine Automated >30 /hpf (0-5); pH Urine 7.5 (4.5-7.5)
[2019-05-08] MEDS ORDERED: HYDROmorphone INJ 0.5 MG/0.5 ML SYR IV PRN (05:02)
[2019-05-08] MEDS ORDERED: TRAMADOL HCL 50 MG TABLET PO PRN (05:02)
[2019-05-08] MEDS: LEVOTHYROXINE SODIUM 88 MCG TABLET PO SCH (05:43)
[2019-05-08] MEDS: ISOSORBIDE DINITRATE 10 MG TAB PO SCH ×3 (05:43→19:57)
[2019-05-08 06:01] LABS: Hematocrit (blood only) 26.6 % (37-47); Hemoglobin 8.8 g/dL (12.0-16.0); Mean Corpuscular Hemoglobin 34.5 pg (25-34); Mean Corpuscular Hgb Conc 33.1 g/dL (32-36); Mean Corpuscular Volume 104.3 fL (80-100); Mean Platelet Volume 10.2 fL (7.4-10.4); Platelet Count 150 K/uL (130-400); RDW Coefficient of Variation 13.5 % (11.5-14.5); RDW Standard Deviation 51.1 fL (36.4-46.3); Red Blood Count 2.55 M/uL (4.2-5.4); White Blood Count 4.24 K/uL (4.8-10.8)
[2019-05-08 06:08] LABS: INR 2.5 (0.9-1.1); Prothrombin Time 24.4 Seconds (9.0-12.0)
[2019-05-08 06:31] LABS: BUN Creatinine Ratio 22.4 (10-20); Calcium 8.6 mg/dl (8.5-10.1); Creatinine Clr Calc Pharmacy 9.1 ml/min; Est GFR (African American) 17.1; Est GFR (Non-African American) 14.8; Potassium 4.1 mmol/L (3.5-5.1)
[2019-05-08 06:42] LABS: Basophils # (auto) 0.02 K/uL (0-0.2); Basophils % (auto) 0.5 %; Eosinophils % (auto) 4.7 %; Immature Granulocytes # (auto) 0.01 K/uL (0.00-0.02); Immature Granulocytes % (auto) 0.2 %; Lymphocytes # (auto) 2.12 K/uL (1.2-3.4); Monocytes # (auto) 0.42 K/uL (0.11-0.59); Monocytes % (auto) 9.9 %; Neutrophils # (auto) 1.47 K/uL (1.4-6.5); Neutrophils % (auto) 34.7 %; Ovalocytes 1+
--- NOTE | 2019-05-08 08:01 | Emergency Department Note ---
Entered by Zahida Patel acting as a scribe for History of Present Illness General Chief complaint: Cardiac Assessment Stated complaint: CHEST DISCOMFORT Time Seen by Provider: 05/07/19 23:26 Source: patient Limitations: no limitations History of Present Illness Onset (ago): minute(s) (DESIGN DIRECTOR) Location: chest Pain Consistency: + now resolved Maximum Pain Intensity: 0 Current Pain Intensity: 0 Quality: + other ("aching") Associated symptoms: + denies other symptoms (abdominal pain); no shortness of breath Treatments prior to arrival: other (Aspirin) The patient is an 88 year old female who presents to the Emergency Room with complaints of chest pain that began DESIGN DIRECTOR. She reports that she woke up with left chest and left shoulder "aching," stating that the pain is now-resolved. The patient complains of intermittent "crashing" in her head that began "a while ago," stating that this occurs once a day. She denies any current pain, noting that the "crashing in her head" and the chest pain are now resolved. The patient denies any SOB and abdominal pain. Per the nursing staff, the patient was given Aspirin by EMS DESIGN DIRECTOR. She reports that she lives with her daughter. The patient notes a history of anxiety. Home Medications Home Medications Medication Instructions Recorded Confirmed Type levothyroxine 88 mcg PO QAM 08/16/18 05/08/19 History ranitidine HCl 150 mg PO BID 08/16/18 05/08/19 History atorvastatin 10 mg PO PM 12/10/18 05/08/19 History cholecalciferol (vitamin D3) 1,000 unit PO QAM 12/10/18 05/08/19 History docusate sodium 100 mg PO BID 12/10/18 05/08/19 History magnesium oxide 400 mg PO QAM 12/10/18 05/08/19 History acetaminophen 650 mg PO Q6H PRN MDD 2g/24hr 02/08/19 05/08/19 History aspirin 81 mg PO QAM 02/08/19 05/08/19 History furosemide 40 mg PO BID 02/08/19 05/08/19 History isosorbide dinitrate 10 mg PO TID 02/08/19 05/08/19 History pantoprazole [Protonix] 40 mg PO QAM 02/08/19 05/08/19 History warfarin [Coumadin] 3 mg PO HS 02/08/19 05/08/19 History escitalopram oxalate 10 mg PO QAM 02/13/19 05/08/19 History metoprolol succinate 12.5 mg PO TID 02/13/19 05/08/19 History buspirone 5 mg PO BID 03/31/19 05/08/19 History cetirizine 10 mg PO BID 03/31/19 05/08/19 History nitroglycerin 0.3 mg SUBLINGUAL UNKNOWN PRN 03/31/19 05/08/19 History triamcinolone acetonide 1 applic TOPICAL BID PRN 03/31/19 05/08/19 History amlodipine 2.5 mg PO DAILY 05/08/19 05/08/19 History lorazepam 0.5 mg PO HS PRN 05/08/19 05/08/19 History Allergies Allergy/AdvReac Type Severity Reaction Status Date / Time Penicillins Allergy Intermediate HIVES Verified 05/08/19 00:06 iron AdvReac Mild n&v, abd Verified 05/08/19 00:06 pain Venofer AdvReac Mild n&v, abd Verified 02/28/18 08:54 pain Past Med/Surg History Medical History Hypothyroidism (Chronic) CKD (chronic kidney disease), stage IV (Chronic) HTN (hypertension) (Chronic) Anxiety (Chronic) HLD (hyperlipidemia) (Chronic) SIADH (syndrome of inappropriate ADH production) (Chronic) H/O echocardiogram (Chronic) "03/2015 - EF 60-65%, moderate to severe aortic regurgitation" GERD (gastroesophageal reflux disease) (Chronic) Anemia (Acute) Chest pain Closed head injury (Acute) Constipation (Acute) Dizziness Fall (Acute) FRANCES (generalized anxiety disorder) (Chronic) Major depressive disorder, recurrent, moderate (Chronic) Suprapubic pain (Acute) Symptoms involving urinary system (Acute) UTI (urinary tract infection) (Acute) Chronic indwelling Villegas catheter Surgical History Hx of appendectomy (Chronic) Hx of cholecystectomy (Chronic) Hx of dilation and curettage (Chronic) Status post total hip replacement, left (Chronic) Family History Other Hypertension Social History Preferred Language: Filipino Communication Ability: Effective Measurement And Verification Engineer Required: No Beliefs That Will Affect Care: None marital status: / Current Living Situation: Family Current Living Situation Comment: own home, dtr lives w/ her current occupational status: retired Other Information That Helps Us Care for You: No Feels Safe at Home: Yes Safety Concerns: Feels Safe At This Time Smoking Status: Never smoker Do You Dip or Chew Tobacco: No ; Second Hand Exposure: No ; Tobacco Cessation Education Requested by Patient: No Hx Alcohol Use: No Hx Substance Use: No Review of Systems See HPI for pertinent positives & negatives. and A total of 10 systems reviewed and were otherwise negative Physical Exam Vital Signs Vital Signs - 24 hr 05/07/19 23:05 05/07/19 23:30 05/08/19 00:00 Temperature 37.1 C Temperature Source Oral Sepsis Recent Fever Within 48 Hours No Sepsis Action Taken by Nursing No Action Required Pulse Rate 61 62 58 L Pulse Rate from SpO2 Sensor 60 57 L Respiratory Rate 18 13 15 Blood Pressure 180/88 H 170/38 H 178/67 H Blood Pressure Mean 118 82 104 Blood Pressure Position Lying Pulse Oximetry 98 98 98 Oxygen Delivery Method Room Air 05/08/19 00:30 05/08/19 01:00 05/08/19 01:30 Temperature Temperature Source Sepsis Recent Fever Within 48 Hours Sepsis Action Taken by Nursing Pulse Rate 57 L 60 57 L Pulse Rate from SpO2 Sensor 56 L 57 L 54 L Respiratory Rate 16 22 20 Blood Pressure 160/61 H 165/38 H 166/40 H Blood Pressure Mean 94 80 82 Blood Pressure Position Pulse Oximetry 97 97 99 Oxygen Delivery Method 05/08/19 02:00 05/08/19 02:31 05/08/19 03:01 Temperature Temperature Source Sepsis Recent Fever Within 48 Hours Sepsis Action Taken by Nursing Pulse Rate 61 58 L 58 L Pulse Rate from SpO2 Sensor 58 L 58 L 58 L Respiratory Rate 16 18 21 Blood Pressure 169/42 H 163/31 H 160/36 H Blood Pressure Mean 84 75 77 Blood Pressure Position Pulse Oximetry 97 100 100 Oxygen Delivery Method 05/08/19 03:30 Temperature Temperature Source Sepsis Recent Fever Within 48 Hours Sepsis Action Taken by Nursing Pulse Rate 58 L Pulse Rate from SpO2 Sensor 55 L Respiratory Rate 22 Blood Pressure 172/39 H Blood Pressure Mean 83 Blood Pressure Position Pulse Oximetry 100 Oxygen Delivery Method Room Air HEENT: Head - normocephalic and atraumatic Pupils are equal, round, and reactive to light. Extraocular eye muscles are intact, and sclera are anicteric. Nose - moist nasal mucosa without discharge. Mouth - moist buccal mucosa. Oropharynx is nonerythematous and there is no tonsillar exudate or edema noted. Neck: Supple; no JVD, nuchal rigidity, cervical lymphadenopathy, or auscultated bruits. Heart: Bradycardic rate and normal rhythm. There is a normal S1 and S2 with no murmurs, clicks, or gallops appreciated. Lungs: Clear to auscultation bilaterally with no wheezes, rales, or rhonchi. Abdomen: Soft, completely nontender, nondistended, with good bowel sounds. There are no palpable pulsatile masses or hepatosplenomegaly. There is no guarding, rigidity, or rebound noted. Extremities: No evidence of cyanosis, clubbing, or edema. There are easily palpable peripheral pulses. Skin: warm and dry with good turgor and no rashes. Course 2346: The patient was evaluated in room A09. A complete history and physical exam was performed. Previous electronic medical records were reviewed. Laboratory studies were drawn as above. A twelve-lead EKG was obtained as described below. The patient will have a chest x-ray. She is quite anxious on exam. 2352: Ativan 0.5 mg in 1 ml IV 0035: Laboratory studies reveal some dehydration. NSS IV 999 mls/hr 0117: I reevaluated the patient. She was much more relaxed. Vital signs stable. No further episodes of chest pain. 0219: I spoke with Dr. Altamirano, [facility] hospitalist, about the patient's case. He will further evaluate the patient. 0250: The patient complained of more pain. Reevaluation(s) Reevaluation #1: [facility]. He will further evaluate the patient. Time: 02:19 Administered Medications Amlodipine Besylate (Norvasc) 5 mg PO DAILY [facility] Stop: 06/07/19 02:29 Last Admin: 05/09/19 08:35 Dose: 5 mg Documented by: [id number] Admin: 05/08/19 03:13 Dose: 5 mg Documented by: [id number] Aspirin (Aspirin Chew) 81 mg PO QAM [facility] Stop: 06/07/19 08:59 Last Admin: 05/09/19 08:34 Dose: 81 mg Documented by: [id number] Admin: 05/08/19 08:59 Dose: 81 mg Documented by: [id number] Atorvastatin Calcium (Lipitor) 10 mg PO PM [facility] Stop: 06/07/19 20:59 Last Admin: 05/08/19 19:57 Dose: 10 mg Documented by: [id number] Buspirone HCl (Buspar) 5 mg PO BID [facility] Stop: 06/07/19 08:59 Last Admin: 05/09/19 08:35 Dose: 5 mg Documented by: [id number] Admin: 05/08/19 19:56 Dose: 5 mg Documented by: [id number] Admin: 05/08/19 08:23 Dose: 5 mg Documented by: [id number] Cetirizine HCl (Zyrtec) 10 mg PO DAILY [facility] Stop: 06/07/19 08:59 Last Admin: 05/09/19 08:34 Dose: 10 mg Documented by: [id number] Admin: 05/08/19 08:23 Dose: 10 mg Documented by: [id number] Docusate Sodium (Colace) 100 mg PO BID [facility] Stop: 06/07/19 08:59 Last Admin: 05/09/19 08:34 Dose: 100 mg Documented by: [id number] Admin: 05/08/19 19:56 Dose: 100 mg Documented by: [id number] Admin: 05/08/19 08:23 Dose: 100 mg Documented by: [id number] Escitalopram Oxalate (Lexapro Tab) 10 mg PO QAM [facility] Stop: 06/07/19 08:59 Last Admin: 05/09/19 08:35 Dose: 10 mg Documented by: [id number] Admin: 05/08/19 08:23 Dose: 10 mg Documented by: [id number] Isosorbide Dinitrate (Isordil) 10 mg PO TID [facility] Stop: 06/07/19 04:14 Last Admin: 05/09/19 08:35 Dose: 10 mg Documented by: [id number] Admin: 05/08/19 19:57 Dose: 10 mg Documented by: [id number] Admin: 05/08/19 14:46 Dose: 10 mg Documented by: [id number] Admin: 05/08/19 05:43 Dose: 10 mg Documented by: [id number] Levothyroxine Sodium (Synthroid) 88 mcg PO DAILYBB [facility] Stop: 06/07/19 06:29 Last Admin: 05/09/19 05:55 Dose: 88 mcg Documented by: [id number] Admin: 05/08/19 05:43 Dose: 88 mcg Documented by: [id number] Lorazepam (Ativan) 0.5 mg PO HS [facility] Stop: 06/07/19 20:59 Last Admin: 05/08/19 20:03 Dose: 0.5 mg Documented by: [id number] Metoprolol Succinate (Toprol Xl) 12.5 mg PO TID [facility] Stop: 06/07/19 08:59 Last Admin: 05/09/19 08:36 Dose: Not Given Documented by: [id number] Admin: 05/08/19 19:57 Dose: 12.5 mg Documented by: [id number] Admin: 05/08/19 14:45 Dose: 12.5 mg Documented by: [id number] Admin: 05/08/19 08:23 Dose: 12.5 mg Documented by: [id number] Pantoprazole Sodium (Protonix) 40 mg PO QAM [facility] Stop: 06/07/19 08:59 Last Admin: 05/09/19 08:35 Dose: 40 mg Documented by: [id number] Admin: 05/08/19 08:23 Dose: 40 mg Documented by: [id number] Discontinued Medications Lorazepam (Ativan) 0.5 mg in 1 mls @ 1 mls/min IV NOW STA Stop: 05/07/19 23:53 Last Admin: 05/08/19 00:21 Dose: 1 mls/min Documented by: [id number] Sodium Chloride (Nss) 500 mls @ 999 mls/hr IV .Q31M ONE Stop: 05/08/19 01:05 Last Infusion: 05/08/19 01:50 Dose: 0 mls/hr Documented by: [id number] Admin: 05/08/19 00:55 Dose: 999 mls/hr Documented by: [id number] Sodium Chloride (Nss) 500 mls @ 50 mls/hr IV .Q10H ONE Stop: 05/08/19 15:01 Last Infusion: 05/08/19 16:47 Dose: 0 mls/hr Documented by: [id number] Admin: 05/08/19 05:26 Dose: 50 mls/hr Documented by: [id number] Warfarin Sodium (Coumadin) 3 mg PO ONE ONE Stop: 05/08/19 17:01 Last Admin: 05/08/19 17:04 Dose: 3 mg Documented by: [id number] Medical Decision Making Differential Diagnosis The differential diagnosis includes: STEMI, anxiety, ACS, and GERD. The patient describes these pains in her head but states that they have been worked up previously and this is not new. Medical Records Attestation: I reviewed the patient's medical records. Home Medications Current Medication List: was personally reviewed by me Laboratory Data Attestation: I reviewed the patient's lab results. Result diagrams: 05/08/19 05:47 05/09/19 05:39 Lab Results 05/07/19 05/07/19 05/07/19 Range/Units 23:00 23:00 23:00 WBC 5.02 (4.8-10.8) K/uL RBC 2.66 L (4.2-5.4) M/uL Hgb 9.3 L (12.0-16.0) g/dL Hct 28.0 L (37-47) % MCV 105.3 H (80-100) fL MCH 35.0 H (25-34) pg MCHC 33.2 (32-36) g/dL RDW Std Deviation 50.8 H (36.4-46.3) fL RDW Coeff of Liss 13.4 (11.5-14.5) % Plt Count 172 (130-400) K/uL MPV 10.2 (7.4-10.4) fL Immature Gran % (Auto) 0.0 % Neut % (Auto) 51.9 % Lymph % (Auto) 35.9 % [place] % (Auto) 9.0 % Eos % (Auto) 2.8 % Baso % (Auto) 0.4 % Immature Gran # (Auto) 0.00 (0.00-0.02) K/uL Neut # (Auto) 2.61 (1.4-6.5) K/uL Lymph # (Auto) 1.80 (1.2-3.4) K/uL [place] # (Auto) 0.45 (0.11-0.59) K/uL Eos # (Auto) 0.14 (0-0.5) K/uL Baso # (Auto) 0.02 (0-0.2) K/uL PT 23.7 H (9.0-12.0) Seconds INR 2.5 H (0.9-1.1) APTT 32.6 H (21.0-31.0) Seconds PTT Ratio 1.2 Sodium 137 (136-145) mmol/L Potassium 4.3 (3.5-5.1) mmol/L Chloride 100 (98-107) mmol/L Carbon Dioxide 32 (21-32) mmol/L Anion Gap 6.0 (3-11) BUN 65 H (7-18) mg/dl Creatinine 2.94 H (0.6-1.2) mg/dl Est Cr Clr Drug Dosing 9.0 ml/min Est GFR ( Amer) 15.8 Est GFR (Non-Af Amer) 13.6 BUN/Creatinine Ratio 22.1 H (10-20) Glucose 98 (70-99) mg/dl Calcium 9.0 (8.5-10.1) mg/dl Magnesium 2.9 H (1.8-2.4) mg/dl Total Bilirubin 0.3 (0.2-1) mg/dl AST 28 (15-37) U/L ALT 24 (12-78) U/L Alkaline Phosphatase 88 (45-117) U/L Troponin I < 0.015 (0-0.045) ng/ml Total Protein 7.4 (6.4-8.2) gm/dl Albumin 3.7 (3.4-5.0) gm/dl Globulin 3.7 (2.5-4.0) gm/dl Albumin/Globulin Ratio 1.0 (0.9-2) Lipase 204 (73-393) U/L TSH 0.128 L (0.300-4.500) uIu/ml Free T4 1.55 (0.8-1.6) ng/dl Total T3 (0.60-1.81) ng/ml Urine Color Urine Appearance (Clear) Urine pH (4.5-7.5) Ur Specific [place] (1.000-1.030) Urine Protein (Negative) Urine Glucose (UA) (Negative) Urine Ketones (Negative) Urine Blood (Negative) Urine Nitrite (Negative) Urine Bilirubin (Negative) Urine Urobilinogen (Negative) Ur Leukocyte Esterase (Negative) Urine WBC (Auto) (0-5) /hpf Urine RBC (Auto) (0-4) /hpf U Hyaline Cast (Auto) (0-5) /lpf U Epithel Cells (Auto) (0-5) /lpf Urine Bacteria (Auto) (Negative) 05/07/19 05/08/19 Range/Units 23:00 03:45 WBC (4.8-10.8) K/uL RBC (4.2-5.4) M/uL Hgb (12.0-16.0) g/dL Hct (37-47) % MCV (80-100) fL MCH (25-34) pg MCHC (32-36) g/dL RDW Std Deviation (36.4-46.3) fL RDW Coeff of Liss (11.5-14.5) % Plt Count (130-400) K/uL MPV (7.4-10.4) fL Immature Gran % (Auto) % Neut % (Auto) % Lymph % (Auto) % [place] % (Auto) % Eos % (Auto) % Baso % (Auto) % Immature Gran # (Auto) (0.00-0.02) K/uL Neut # (Auto) (1.4-6.5) K/uL Lymph # (Auto) (1.2-3.4) K/uL [place] # (Auto) (0.11-0.59) K/uL Eos # (Auto) (0-0.5) K/uL Baso # (Auto) (0-0.2) K/uL PT (9.0-12.0) Seconds INR (0.9-1.1) APTT (21.0-31.0) Seconds PTT Ratio Sodium (136-145) mmol/L Potassium (3.5-5.1) mmol/L Chloride (98-107) mmol/L Carbon Dioxide (21-32) mmol/L Anion Gap (3-11) BUN (7-18) mg/dl Creatinine (0.6-1.2) mg/dl Est Cr Clr Drug Dosing ml/min Est GFR ( Amer) Est GFR (Non-Af Amer) BUN/Creatinine Ratio (10-20) Glucose (70-99) mg/dl Calcium (8.5-10.1) mg/dl Magnesium (1.8-2.4) mg/dl Total Bilirubin (0.2-1) mg/dl AST (15-37) U/L ALT (12-78) U/L Alkaline Phosphatase (45-117) U/L Troponin I (0-0.045) ng/ml Total Protein (6.4-8.2) gm/dl Albumin (3.4-5.0) gm/dl Globulin (2.5-4.0) gm/dl Albumin/Globulin Ratio (0.9-2) Lipase (73-393) U/L TSH (0.300-4.500) uIu/ml Free T4 (0.8-1.6) ng/dl Total T3 0.81 (0.60-1.81) ng/ml Urine Color Yellow Urine Appearance Cloudy A (Clear) Urine pH 7.5 (4.5-7.5) Ur Specific [place] 1.010 (1.000-1.030) Urine Protein Negative (Negative) Urine Glucose (UA) Negative (Negative) Urine Ketones Negative (Negative) Urine Blood Negative (Negative) Urine Nitrite Negative (Negative) Urine Bilirubin Negative (Negative) Urine Urobilinogen Negative (Negative) Ur Leukocyte Esterase 2+ H (Negative) Urine WBC (Auto) >30 H (0-5) /hpf Urine RBC (Auto) 0-4 (0-4) /hpf U Hyaline Cast (Auto) 10-30 H (0-5) /lpf U Epithel Cells (Auto) 10-20 H (0-5) /lpf Urine Bacteria (Auto) 4+ H (Negative) Imaging Data Attestation: I personally reviewed and interpreted this imaging study as follows: My Impression: XRAY CHEST 1V: Normal, no pulmonary findings. Radiologist's Impression: Radiology results as stated below per my review and the radiologist's interpretation: CT HEAD: Impression: Examination is degraded by patient motion. No discrete intracranial hemorrhage identified on motion degraded examination. Global pa renchymal volume loss with chronic microvascular ischemic changes. No mess lesion or mass effect. Paranasal sinuses are clear. Radiologist: Sigifredo Mcdaniel MD Study ready at 03:27 and initial results transmitted at 04:03. ECG Data Attestation: I personally reviewed and interpreted this ECG as follows: Indication: chest pain Rate (beats per minute): 58 Rhythm: sinus bradycardia Findings: + other (first degree block) and + PVC; no acute ischemic change Comparison ECG Date: from (03/31/19) Change: no significant change Blood Pressure Blood Pressure Findings: Elevated blood pressure Blood Pressure Disposition: further management by hospitalist JOSE ALEJANDRO Barnes The patient is an 88 year old female who presents to the Emergency Room with complaints of chest pain that began DESIGN DIRECTOR. The patient developed left-sided chest discomfort that radiates into her left arm. She is quite anxious about the symptoms. She has a normal-appearing twelve-lead EKG and a negative troponin. The pain has subsided and her anxiety has improved somewhat. However, the patient is at risk for coronary artery disease and will require a rule out. The patient is also more anemic than usual and her creatinine has elevated. These will need to be further evaluated. She has started to receive IV crystalloid therapy in the emergency department for the possibility of dehydration. Impression & Plan Left-sided chest pain, Anemia, Renal insufficiency Discharge Plan Visit Data *Final* Discharge Date/Time: 05/08/19 04:37 Chief Complaint: Cardiac Assessment Stated Complaint: CHEST DISCOMFORT ED Provider: Darby Ward Discharge Problem: Left-sided chest pain, Anemia, Renal insufficiency Patient Disposition: Admitted As Inpatient Discharge Instructions Interventions: ED Discharge Assessment Last Done: 05/08/19 04:37 Discharge Problem: Anemia Qualifiers: Anemia type: unspecified type Qualified Code(s): D64.9 - Anemia, unspecified The scribe's documentation has been prepared under my direction and personally reviewed by me in its entirety. I confirm that the note above accurately reflects all work, treatment, procedures, and medical decision making performed by me.
[2019-05-08] MEDS: PANTOprazole 40 MG TAB PO SCH (08:23)
[2019-05-08] MEDS: METOPROLOL SUCC 25MG EXT REL TAB PO SCH ×3 (08:23→19:57)
[2019-05-08] MEDS: ESCITALOPRAM OXALATE 10 MG TAB PO SCH (08:23)
[2019-05-08] MEDS: CETIRIZINE HCL 10 MG TABLET PO SCH (08:23)
[2019-05-08] MEDS: DOCUSATE SODIUM 100 MG CAP PO SCH ×2 (08:23→19:56)
[2019-05-08] MEDS: ASPIRIN 81 MG CHEW PO SCH (08:59)
[2019-05-08] MEDS ORDERED: ASPIRIN CHEW 324 MG PO SCH (09:00)
--- NOTE | 2019-05-08 09:04 | Cardiology Consultation ---
Date of Consultation May 08, 2019 Assessment & Plan (1) Left-sided chest pain: (2) Ischemic cardiomyopathy: (3) Chronic systolic (congestive) heart failure: (4) Frequent PVCs: (5) Renal insufficiency: (6) Anemia: 88-year-old female admitted with an episode of atypical chest discomfort. No evidence of acute coronary syndrome - Cardiac enzymes are negative and ECG unchanged. Recommend repeat resting 2D transthoracic echocardiogram. INR is therapeutic. No indication for intravenous heparin at this time. Frequent premature ventricular complexes noted on telemetry, however, patient is asymptomatic. Elevated serum magnesium level noted on admission. Agree with holding magnesium supplementation in the setting of acute renal insufficiency. Encouraged oral hydration and continued gentle intravenous hydration. Repeat basic metabolic panel in a.m. for reassessment of electrolytes and renal function. Amlodipine titrated to 5 mg daily to improve blood pressure control. Consider titration of Toprol-XL to 25 mg twice daily or transition to carvedilol pending clinical course. Other cardiovascular medications will be continued as previously ordered. Thank you for allowing to participate in the care of your patient. I will continue to follow during hospitalization. History of Present Illness Reason for Consultation: Chest discomfort Requesting Physician: Dr. 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 Patient awoke from sleep last night and became concerned. After discussion with her daughter, EMS was summoned and she was brought to the emergency department. Cardiac enzymes are negative x2 sets. Patient states discomfort slowly improved in route to the hospital. Pain-free overnight. ECG demonstrates sinus rhythm with premature ventricular complexes, left ventricular hypertrophy with repolarization abnormality. Currently resting comfortably. Denies orthopnea, PND, or palpitations. Ambulates with use of a walker. No falls or injuries reported. Functional ca pacity is stable. Notes loose stools and recent diarrheal illness. Denies fever, chills, or sick contacts. Offers no other concerns/complaints at this time peer Allergies Allergy/AdvReac Type Severity Reaction Status Date / Time Penicillins Allergy Intermediate HIVES Verified 05/08/19 00:06 iron AdvReac Mild n&v, abd Verified 05/08/19 00:06 pain Venofer AdvReac Mild n&v, abd Verified 02/28/18 08:54 pain Home Medications Home Medications Medication Instructions Recorded Confirmed Type levothyroxine 88 mcg PO QAM 08/16/18 05/08/19 History ranitidine HCl 150 mg PO BID 08/16/18 05/08/19 History atorvastatin 10 mg PO PM 12/10/18 05/08/19 History cholecalciferol (vitamin D3) 1,000 unit PO QAM 12/10/18 05/08/19 History docusate sodium 100 mg PO BID 12/10/18 05/08/19 History magnesium oxide 400 mg PO QAM 12/10/18 05/08/19 History acetaminophen 650 mg PO Q6H PRN MDD 2g/24hr 02/08/19 05/08/19 History aspirin 81 mg PO QAM 02/08/19 05/08/19 History furosemide 40 mg PO BID 02/08/19 05/08/19 History isosorbide dinitrate 10 mg PO TID 02/08/19 05/08/19 History pantoprazole [Protonix] 40 mg PO QAM 02/08/19 05/08/19 History warfarin [Coumadin] 3 mg PO HS 02/08/19 05/08/19 History escitalopram oxalate 10 mg PO QAM 02/13/19 05/08/19 History metoprolol succinate 12.5 mg PO TID 02/13/19 05/08/19 History buspirone 5 mg PO BID 03/31/19 05/08/19 History cetirizine 10 mg PO BID 03/31/19 05/08/19 History nitroglycerin 0.3 mg SUBLINGUAL UNKNOWN PRN 03/31/19 05/08/19 History triamcinolone acetonide 1 applic TOPICAL BID PRN 03/31/19 05/08/19 History amlodipine 2.5 mg PO DAILY 05/08/19 05/08/19 History lorazepam 0.5 mg PO HS PRN 05/08/19 05/08/19 History Patient History Medical History Hypothyroidism (Chronic) CKD (chronic kidney disease), stage IV (Chronic) HTN (hypertension) (Chronic) Anxiety (Chronic) HLD (hyperlipidemia) (Chronic) SIADH (syndrome of inappropriate ADH production) (Chronic) H/O echocardiogram (Chronic) "03/2015 - EF 60-65%, moderate to severe aortic regurgitation" GERD (gastroesophageal reflux disease) (Chronic) Anemia (Acute) Chest pain Closed head injury (Acute) Constipation (Acute) Dizziness Fall (Acute) FRANCES (generalized anxiety disorder) (Chronic) Major depressive disorder, recurrent, moderate (Chronic) Suprapubic pain (Acute) Symptoms involving urinary system (Acute) UTI (urinary tract infection) (Acute) Chronic indwelling Villegas catheter Surgical History Hx of appendectomy (Chronic) Hx of cholecystectomy (Chronic) Hx of dilation and curettage (Chronic) Status post total hip replacement, left (Chronic) Family History Other Hypertension Social History Preferred Language: Slovenian Communication Ability: Effective Cut In Worker Required: No Beliefs That Will Affect Care: None marital status: / Current Living Situation: Family Current Living Situation Comment: own home, dtr lives w/ her current occupational status: retired Other Information That Helps Us Care for You: No Feels Safe at Home: Yes Safety Concerns: Feels Safe At This Time Smoking Status: Never smoker Do You Dip or Chew Tobacco: No ; Second Hand Exposure: No ; Tobacco Cessation Education Requested by Patient: No Hx Alcohol Use: No Hx Substance Use: No Review of Systems Review of Systems: All systems reviewed & are unremarkable except as noted in HPI & below Physical Exam Physical Exam: General: NAD, AAO x3, well nourished. HEENT: Normocephalic. Atraumatic. Conjunctiva pink, no scleral icterus. Neck: 3/4 right-sided carotid bruit, the carotid upstrokes are brisk. No JVD. No HJR Heart: Regular, with ectopy. normal S-1 and S-2 no S-3 or S-4 gallop. 2/6 low pitched, early peaking, sytstolic ejection murmur. PMI is not displaced. No RV heave. Lungs: Clear bilateral without rales , rhonchi, or wheeze. Abdomen: Normal bowel sounds. Soft. Nontender. No masses or organomegaly. No abdominal bruits. Extremities: No clubbing, cyanosis, or edema. Pulses: radial=2/4. Neuro: Cranial nerves grossly intact. No focal motor deficit. Results & Data Vital Signs (Past 12 Hours) Vital Signs Temp Pulse Pulse Resp BP BP Pulse Ox 05/08/19 07:10 36.5 C 62 18 170/61 H 96 05/08/19 05:31 36.3 C L 70 20 170/48 H 95 05/08/19 05:07 68 05/08/19 04:57 36.3 C L 70 16 176/48 H 95 05/08/19 04:30 60 19 171/46 H 98 05/08/19 03:30 58 L 22 172/39 H 100 05/08/19 03:01 58 L 21 160/36 H 100 05/08/19 02:31 58 L 18 163/31 H 100 05/08/19 02:00 61 16 169/42 H 97 05/08/19 01:30 57 L 20 166/40 H 99 05/08/19 01:00 60 22 165/38 H 97 05/08/19 00:30 57 L 16 160/61 H 97 05/08/19 00:00 58 L 15 178/67 H 98 05/07/19 23:30 62 13 170/38 H 98 05/07/19 23:05 37.1 C 61 18 180/88 H 98 Laboratory Results Laboratory Results - last 24 hr 05/07/19 05/07/19 05/07/19 23:00 23:00 23:00 WBC 5.02 RBC 2.66 L Hgb 9.3 L Hct 28.0 L MCV 105.3 H MCH 35.0 H MCHC 33.2 RDW Std Deviation 50.8 H RDW Coeff of Liss 13.4 Plt Count 172 MPV 10.2 Immature Gran % (Auto) 0.0 Neut % (Auto) 51.9 Lymph % (Auto) 35.9 [place] % (Auto) 9.0 Eos % (Auto) 2.8 Baso % (Auto) 0.4 Immature Gran # (Auto) 0.00 Neut # (Auto) 2.61 Lymph # (Auto) 1.80 [place] # (Auto) 0.45 Eos # (Auto) 0.14 Baso # (Auto) 0.02 Ovalocytes PT 23.7 H INR 2.5 H APTT 32.6 H PTT Ratio 1.2 Sodium 137 Potassium 4.3 Chloride 100 Carbon Dioxide 32 Anion Gap 6.0 BUN 65 H Creatinine 2.94 H Est Cr Clr Drug Dosing 9.0 Est GFR ( Amer) 15.8 Est GFR (Non-Af Amer) 13.6 BUN/Creatinine Ratio 22.1 H Glucose 98 Calcium 9.0 Magnesium 2.9 H Total Bilirubin 0.3 AST 28 ALT 24 Alkaline Phosphatase 88 Troponin I < 0.015 Total Protein 7.4 Albumin 3.7 Globulin 3.7 Albumin/Globulin Ratio 1.0 Triglycerides Cholesterol LDL Cholesterol, Calc VLDL Cholesterol, Calc HDL Cholesterol Cholesterol/HDL Ratio Lipase 204 TSH 0.128 L Free T4 1.55 Total T3 Urine Color Urine Appearance Urine pH Ur Specific [place] Urine Protein Urine Glucose (UA) Urine Ketones Urine Blood Urine Nitrite Urine Bilirubin Urine Urobilinogen Ur Leukocyte Esterase Urine WBC (Auto) Urine RBC (Auto) U Hyaline Cast (Auto) U Epithel Cells (Auto) Urine Bacteria (Auto) 05/07/19 05/08/19 05/08/19 23:00 03:45 05:47 WBC 4.24 L RBC 2.55 L Hgb 8.8 L Hct 26.6 L MCV 104.3 H MCH 34.5 H MCHC 33.1 RDW Std Deviation 51.1 H RDW Coeff of Liss 13.5 Plt Count 150 MPV 10.2 Immature Gran % (Auto) 0.2 Neut % (Auto) 34.7 Lymph % (Auto) 50.0 [place] % (Auto) 9.9 Eos % (Auto) 4.7 Baso % (Auto) 0.5 Immature Gran # (Auto) 0.01 Neut # (Auto) 1.47 Lymph # (Auto) 2.12 [place] # (Auto) 0.42 Eos # (Auto) 0.20 Baso # (Auto) 0.02 Ovalocytes 1+ PT INR APTT PTT Ratio Sodium Potassium Chloride Carbon Dioxide Anion Gap BUN Creatinine Est Cr Clr Drug Dosing Est GFR ( Amer) Est GFR (Non-Af Amer) BUN/Creatinine Ratio Glucose Calcium Magnesium Total Bilirubin AST ALT Alkaline Phosphatase Troponin I Total Protein Albumin Globulin Albumin/Globulin Ratio Triglycerides Cholesterol LDL Cholesterol, Calc VLDL Cholesterol, Calc HDL Cholesterol Cholesterol/HDL Ratio Lipase TSH Free T4 Total T3 0.81 Urine Color Yellow Urine Appearance Cloudy A Urine pH 7.5 Ur Specific [place] 1.010 Urine Protein Negative Urine Glucose (UA) Negative Urine Ketones Negative Urine Blood Negative Urine Nitrite Negative Urine Bilirubin Negative Urine Urobilinogen Negative Ur Leukocyte Esterase 2+ H Urine WBC (Auto) >30 H Urine RBC (Auto) 0-4 U Hyaline Cast (Auto) 10-30 H U Epithel Cells (Auto) 10-20 H Urine Bacteria (Auto) 4+ H 05/08/19 05/08/19 05/08/19 05:47 05:47 08:06 WBC RBC Hgb Hct MCV MCH MCHC RDW Std Deviation RDW Coeff of Liss Plt Count MPV Immature Gran % (Auto) Neut % (Auto) Lymph % (Auto) [place] % (Auto) Eos % (Auto) Baso % (Auto) Immature Gran # (Auto) Neut # (Auto) Lymph # (Auto) [place] # (Auto) Eos # (Auto) Baso # (Auto) Ovalocytes PT 24.4 H INR 2.5 H APTT PTT Ratio Sodium 138 Potassium 4.1 Chloride 102 Carbon Dioxide 31 Anion Gap 5.0 BUN 62 H Creatinine 2.75 H Est Cr Clr Drug Dosing 9.1 Est GFR ( Amer) 17.1 Est GFR (Non-Af Amer) 14.8 BUN/Creatinine Ratio 22.4 H Glucose 83 Calcium 8.6 Magnesium Total Bilirubin AST ALT Alkaline Phosphatase Troponin I < 0.015 Total Protein Albumin Globulin Albumin/Globulin Ratio Triglycerides 77 Cholesterol 117 LDL Cholesterol, Calc 48 VLDL Cholesterol, Calc 15 HDL Cholesterol 54 Cholesterol/HDL Ratio 2 Lipase TSH Free T4 Total T3 Urine Color Urine Appearance Urine pH Ur Specific [place] Urine Protein Urine Glucose (UA) Urine Ketones Urine Blood Urine Nitrite Urine Bilirubin Urine Urobilinogen Ur Leukocyte Esterase Urine WBC (Auto) Urine RBC (Auto) U Hyaline Cast (Auto) U Epithel Cells (Auto) Urine Bacteria (Auto) Diagnostic Findings ECG demonstrates sinus rhythm with PVCs, left ventricular hypertrophy with secondary repolarization abnormality. No change when compared to prior ECG. (1) Anemia Anemia type: unspecified type Qualified Code(s): D64.9 - Anemia, unspecified
--- NOTE | 2019-05-08 09:06 | CT Scan Report ---
CT SCAN OF THE BRAIN WITHOUT IV CONTRAST CLINICAL HISTORY: Headache. COMPARISON STUDY: CT of the brain dated 04/04/2019. TECHNIQUE: Unenhanced axial CT scan of the brain is performed from the vertex to the skull base. A do se lowering technique was utilized adhering to the principles of ALARA. The patient was scanned twice due to motion artifact. CT DOSE: 1074.96 mGy.cm FINDINGS: Brain parenchyma: There are age-related involutional changes noting mild subcortical and periventric ular microangiopathic change. There is no hemorrhage, mass effect, or evidence of acute territorial i schemia by CT criteria. Sánchez-white matter differentiation is preserved. No extra-axial fluid collecti on is seen. Ventricles, sulci, cisterns: Prominent secondary to involutional change. Intracranial vasculature: There is atherosclerotic calcification of the cavernous carotid and vertebr al arteries. Calvarium: Unremarkable. Sinuses and mastoids: Trace mucosal thickening is noted in the maxillary antra. The remaining visuali zed paranasal sinuses are clear. The mastoid air cells are well pneumatized. Orbits: The bony orbits are grossly intact. IMPRESSION: There is no hemorrhage, mass effect, or evidence of acute territorial ischemia by CT michealt javier noting a motion compromised examination. Electronically signed by: Oziel Johnson M.D. 05/08/2019 9:04 AM
--- NOTE | 2019-05-08 10:09 | XRay Report ---
SINGLE VIEW CHEST CLINICAL HISTORY: Atypical chest pain. FINDINGS: An AP, portable, upright chest radiograph is compared to study dated 04/04/2019. The examina tion is degraded by portable technique and patient rotation. The heart is mildly enlarged noting athe rosclerotic calcification of the thoracic aorta. Chronic interstitial thickening is similar to previo us. There are foci of bibasilar scarring/atelectasis. No airspace consolidation or large pleural effu nafisa is identified. No pneumothorax is seen. The skeletal structures are osteopenic. The bony thorax is grossly intact. Degenerative change and mild scoliosis are noted in the thoracic spine. IMPRESSION: No acute cardiopulmonary abnormality. Electronically signed by: Oziel Johnson M.D. 05/08/2019 10:07 AM
--- NOTE | 2019-05-08 16:20 | Hospitalist Progress Note ---
Date of Service May 08, 2019 Assessment & Plan (1) Chest pain: ACS ruled out possibly from uncontrolled HTN troponins negative x 3 echo pending INR therapeutic Acute Renal Failure on CKD 4 hold Lasix given gentle IV fluids- total of 1 L so far crea improved from 2.9 to 2.7, monitor chronic systolic heart failure (EF 30 to 35%, TTE 2019), patient euvolemic to dry hold Lasix given gentle IV fluids history of valvular heart disease (moderate aortic/mitral/tricuspid regurgitation) history probable PE/DVT -- on Coumadin, INR therapeutic hypothyroidism, euthyroid as of today's TSH chronic anemia secondary to CKD, hemoglobin at baseline past tobacco abuse chronic urinary retention w/ indwelling Villegas catheter no issues DVT prophylaxis. Coumadin Full code Disposition pending Subjective ff up for chest pain seen resting in bed, comfortable denies active chest pain, SOB, headache, dizziness no other symptoms Review of Systems Review of Systems: All systems reviewed & are unremarkable except as noted in HPI & below Physical Exam Physical Exam: General- oriented x 2, not in distress, speaks in sentences with no effort or accessory muscle use Head- atraumatic Eyes- PERRL, EOMI, anicteric ENT- oropharynx clear Neck- supple, no JVD, no adenopathy, no thyromegaly; carotids +2/2, no bruits appreciated Lungs- clear breath sounds bilaterally, no rales/wheezing Heart- normal rate, regular rhythm; no murmur, no gallop, no rub appreciated Abdomen- normal bowel sounds, nondistended, soft, nontender, no masses or hepatosplenomegaly Extremities- no pretibial edema, no calf tenderness; peripheral pulses intact Neuro- alert, oriented x 2; CN 2-12 grossly intact; motor 5/5 bilaterally;sensation 100% on all extremities; no other gross focal neurologic deficits Skin- warm & dry Results & Data Vital Signs (Past 12 Hours) Vital Signs Temp Pulse Pulse Resp BP BP Pulse Ox 05/08/19 15:46 36.5 C 54 L 115/58 L 98 05/08/19 12:12 36.7 C 72 18 161/67 H 97 05/08/19 10:09 98 05/08/19 08:00 61 05/08/19 07:10 36.5 C 62 18 170/61 H 96 05/08/19 05:31 36.3 C L 70 20 170/48 H 95 05/08/19 05:07 68 05/08/19 04:57 36.3 C L 70 16 176/48 H 95 05/08/19 04:30 60 19 171/46 H 98 Laboratory Results Laboratory Results - last 24 hr 05/07/19 05/07/19 05/07/19 23:00 23:00 23:00 WBC 5.02 RBC 2.66 L Hgb 9.3 L Hct 28.0 L MCV 105.3 H MCH 35.0 H MCHC 33.2 RDW Std Deviation 50.8 H RDW Coeff of Liss 13.4 Plt Count 172 MPV 10.2 Immature Gran % (Auto) 0.0 Neut % (Auto) 51.9 Lymph % (Auto) 35.9 [place] % (Auto) 9.0 Eos % (Auto) 2.8 Baso % (Auto) 0.4 Immature Gran # (Auto) 0.00 Neut # (Auto) 2.61 Lymph # (Auto) 1.80 [place] # (Auto) 0.45 Eos # (Auto) 0.14 Baso # (Auto) 0.02 Ovalocytes PT 23.7 H INR 2.5 H APTT 32.6 H PTT Ratio 1.2 Sodium 137 Potassium 4.3 Chloride 100 Carbon Dioxide 32 Anion Gap 6.0 BUN 65 H Creatinine 2.94 H Est Cr Clr Drug Dosing 9.0 Est GFR ( Amer) 15.8 Est GFR (Non-Af Amer) 13.6 BUN/Creatinine Ratio 22.1 H Glucose 98 Calcium 9.0 Magnesium 2.9 H Total Bilirubin 0.3 AST 28 ALT 24 Alkaline Phosphatase 88 Troponin I < 0.015 Total Protein 7.4 Albumin 3.7 Globulin 3.7 Albumin/Globulin Ratio 1.0 Triglycerides Cholesterol LDL Cholesterol, Calc VLDL Cholesterol, Calc HDL Cholesterol Cholesterol/HDL Ratio Lipase 204 TSH 0.128 L Free T4 1.55 Total T3 Urine Color Urine Appearance Urine pH Ur Specific [place] Urine Protein Urine Glucose (UA) Urine Ketones Urine Blood Urine Nitrite Urine Bilirubin Urine Urobilinogen Ur Leukocyte Esterase Urine WBC (Auto) Urine RBC (Auto) U Hyaline Cast (Auto) U Epithel Cells (Auto) Urine Bacteria (Auto) 05/07/19 05/08/19 05/08/19 23:00 03:45 05:47 WBC 4.24 L RBC 2.55 L Hgb 8.8 L Hct 26.6 L MCV 104.3 H MCH 34.5 H MCHC 33.1 RDW Std Deviation 51.1 H RDW Coeff of Liss 13.5 Plt Count 150 MPV 10.2 Immature Gran % (Auto) 0.2 Neut % (Auto) 34.7 Lymph % (Auto) 50.0 [place] % (Auto) 9.9 Eos % (Auto) 4.7 Baso % (Auto) 0.5 Immature Gran # (Auto) 0.01 Neut # (Auto) 1.47 Lymph # (Auto) 2.12 [place] # (Auto) 0.42 Eos # (Auto) 0.20 Baso # (Auto) 0.02 Ovalocytes 1+ PT INR APTT PTT Ratio Sodium Potassium Chloride Carbon Dioxide Anion Gap BUN Creatinine Est Cr Clr Drug Dosing Est GFR ( Amer) Est GFR (Non-Af Amer) BUN/Creatinine Ratio Glucose Calcium Magnesium Total Bilirubin AST ALT Alkaline Phosphatase Troponin I Total Protein Albumin Globulin Albumin/Globulin Ratio Triglycerides Cholesterol LDL Cholesterol, Calc VLDL Cholesterol, Calc HDL Cholesterol Cholesterol/HDL Ratio Lipase TSH Free T4 Total T3 0.81 Urine Color Yellow Urine Appearance Cloudy A Urine pH 7.5 Ur Specific [place] 1.010 Urine Protein Negative Urine Glucose (UA) Negative Urine Ketones Negative Urine Blood Negative Urine Nitrite Negative Urine Bilirubin Negative Urine Urobilinogen Negative Ur Leukocyte Esterase 2+ H Urine WBC (Auto) >30 H Urine RBC (Auto) 0-4 U Hyaline Cast (Auto) 10-30 H U Epithel Cells (Auto) 10-20 H Urine Bacteria (Auto) 4+ H 05/08/19 05/08/19 05/08/19 05:47 05:47 08:06 WBC RBC Hgb Hct MCV MCH MCHC RDW Std Deviation RDW Coeff of Liss Plt Count MPV Immature Gran % (Auto) Neut % (Auto) Lymph % (Auto) [place] % (Auto) Eos % (Auto) Baso % (Auto) Immature Gran # (Auto) Neut # (Auto) Lymph # (Auto) [place] # (Auto) Eos # (Auto) Baso # (Auto) Ovalocytes PT 24.4 H INR 2.5 H APTT PTT Ratio Sodium 138 Potassium 4.1 Chloride 102 Carbon Dioxide 31 Anion Gap 5.0 BUN 62 H Creatinine 2.75 H Est Cr Clr Drug Dosing 9.1 Est GFR ( Amer) 17.1 Est GFR (Non-Af Amer) 14.8 BUN/Creatinine Ratio 22.4 H Glucose 83 Calcium 8.6 Magnesium Total Bilirubin AST ALT Alkaline Phosphatase Troponin I < 0.015 Total Protein Albumin Globulin Albumin/Globulin Ratio Triglycerides 77 Cholesterol 117 LDL Cholesterol, Calc 48 VLDL Cholesterol, Calc 15 HDL Cholesterol 54 Cholesterol/HDL Ratio 2 Lipase TSH Free T4 Total T3 Urine Color Urine Appearance Urine pH Ur Specific [place] Urine Protein Urine Glucose (UA) Urine Ketones Urine Blood Urine Nitrite Urine Bilirubin Urine Urobilinogen Ur Leukocyte Esterase Urine WBC (Auto) Urine RBC (Auto) U Hyaline Cast (Auto) U Epithel Cells (Auto) Urine Bacteria (Auto) 05/08/19 14:17 WBC RBC Hgb Hct MCV MCH MCHC RDW Std Deviation RDW Coeff of Liss Plt Count MPV Immature Gran % (Auto) Neut % (Auto) Lymph % (Auto) [place] % (Auto) Eos % (Auto) Baso % (Auto) Immature Gran # (Auto) Neut # (Auto) Lymph # (Auto) [place] # (Auto) Eos # (Auto) Baso # (Auto) Ovalocytes PT INR APTT PTT Ratio Sodium Potassium Chloride Carbon Dioxide Anion Gap BUN Creatinine Est Cr Clr Drug Dosing Est GFR ( Amer) Est GFR (Non-Af Amer) BUN/Creatinine Ratio Glucose Calcium Magnesium Total Bilirubin AST ALT Alkaline Phosphatase Troponin I < 0.015 Total Protein Albumin Globulin Albumin/Globulin Ratio Triglycerides Cholesterol LDL Cholesterol, Calc VLDL Cholesterol, Calc HDL Cholesterol Cholesterol/HDL Ratio Lipase TSH Free T4 Total T3 Urine Color Urine Appearance Urine pH Ur Specific [place] Urine Protein Urine Glucose (UA) Urine Ketones Urine Blood Urine Nitrite Urine Bilirubin Urine Urobilinogen Ur Leukocyte Esterase Urine WBC (Auto) Urine RBC (Auto) U Hyaline Cast (Auto) U Epithel Cells (Auto) Urine Bacteria (Auto)
[2019-05-08] MEDS ORDERED: WARFARIN SOD 3 MG TAB PO ONE (17:00)
[2019-05-08] MEDS: ATORVASTATIN 10 MG TAB PO SCH (19:57)
[2019-05-08] MEDS: LORazepam 0.5 MG TAB PO SCH (20:03)
[2019-05-09] MEDS: LEVOTHYROXINE SODIUM 88 MCG TABLET PO SCH (05:55)
[2019-05-09 06:31] LABS: Prothrombin Time 28.1 Seconds (9.0-12.0)
[2019-05-09 06:44] LABS: BUN Creatinine Ratio 26.8 (10-20); Calcium 8.5 mg/dl (8.5-10.1); Creatinine Clr Calc Pharmacy 10.5 ml/min; Est GFR (African American) 19.5; Est GFR (Non-African American) 16.8; Potassium 4.7 mmol/L (3.5-5.1)
[2019-05-09] MEDS: ASPIRIN 81 MG CHEW PO SCH (08:34)
[2019-05-09] MEDS: DOCUSATE SODIUM 100 MG CAP PO SCH ×2 (08:34→20:44)
[2019-05-09] MEDS: CETIRIZINE HCL 10 MG TABLET PO SCH (08:34)
[2019-05-09] MEDS: ISOSORBIDE DINITRATE 10 MG TAB PO SCH ×3 (08:35→20:44)
[2019-05-09] MEDS: ESCITALOPRAM OXALATE 10 MG TAB PO SCH (08:35)
[2019-05-09] MEDS: AMLODIPINE BESYLATE 5 MG TAB PO SCH (08:35)
[2019-05-09] MEDS: PANTOprazole 40 MG TAB PO SCH (08:35)
[2019-05-09] MEDS: METOPROLOL SUCC 25MG EXT REL TAB PO SCH (08:36)
[2019-05-09] MEDS ORDERED: CETIRIZINE HCL 10 MG TABLET PO PRN (10:25)
--- NOTE | 2019-05-09 10:25 | Hospitalist Progress Note ---
Date of Service May 09, 2019 Assessment & Plan (1) Chest pain: ACS ruled out possibly from uncontrolled HTN troponins negative x 3 echo noted, no wall motion abnormalities INR therapeutic Amlodipine increased to 5 mg, metoprolol changed to carvedilol Acute Renal Failure on CKD 4 hold Lasix given gentle IV fluids- total of 1 L crea improved from 2.9 to 2.4 Holding diuretics for today, monitor renal function chronic systolic heart failure (EF 30 to 35%, TTE 2018), patient euvolemic to dry Holding diuretics today given gentle IV fluids Metoprolol changed to carvedilol history of valvular heart disease (moderate aortic/mitral/tricuspid regurgitation) history probable PE/DVT --INR 3.0 Hold Coumadin for today Check INR tomorrow hypothyroidism, euthyroid chronic anemia secondary to CKD, hemoglobin at baseline past tobacco abuse chronic urinary retention w/ indwelling Villegas catheter no issues DVT prophylaxis. INR 3.0 Full code Disposition pending PT/OT evaluation Subjective Follow-up for chest pain, hypertension Seen sleeping, irritable when being awakened Main complaint is left knee pruritus Denies recurrence of chest pain, shortness of breath, palpitations, dizziness Denies any other symptoms Review of Systems Review of Systems: All systems reviewed & are unremarkable except as noted in HPI & below Physical Exam Physical Exam: General- oriented x 2, not in distress, speaks in sentences with no effort or accessory muscle use Eyes- anicteric Neck- no JVD Lungs-clear breath sounds, no crackles or wheezing bilaterally Heart- normal rate, regular rhythm; no murmurs Abdomen- normal bowel sounds, nondistended, soft, nontender Extremities- no pretibial edema, no calf tenderness Left knee: Mild erythema, no edema, no warmth no tenderness Neuro- alert, oriented x 2; no gross focal neurologic deficits Skin- warm & dry Results & Data Vital Signs (Past 12 Hours) Vital Signs Temp Pulse Pulse Resp BP BP Pulse Ox 05/09/19 09:27 36.3 C L 56 L 18 165/53 H 99 05/09/19 08:28 36.3 C L 57 L 18 165/53 H 99 05/09/19 03:56 36.5 C 58 L 19 149/50 H 94 05/09/19 00:44 60 05/08/19 23:32 36.4 C L 61 18 160/56 H 96 Laboratory Results Laboratory Results - last 24 hr 05/09/19 05/09/19 05:39 05:39 PT 28.1 H INR 3.0 H Sodium 139 Potassium 4.7 Chloride 102 Carbon Dioxide 30 Anion Gap 7.0 BUN 66 H Creatinine 2.47 H Est Cr Clr Drug Dosing 10.5 Est GFR ( Amer) 19.5 Est GFR (Non-Af Amer) 16.8 BUN/Creatinine Ratio 26.8 H Glucose 80 Calcium 8.5
--- NOTE | 2019-05-09 11:28 | Cardiology Progress Note ---
Date of Service May 09, 2019 Assessment & Plan (1) Left-sided chest pain: (2) Ischemic cardiomyopathy: (3) Chronic systolic (congestive) heart failure: (4) Frequent PVCs: (5) Renal insufficiency: (6) Anemia: 88-year-old female admitted with transient episode of atypical chest discomfort. No recurrent discomfort since admission. No evidence of acute coronary syndrome - Cardiac enzymes are negative and ECG unchanged. Encouraged oral hydration and continued gentle intravenous hydration. Repeat basic metabolic panel in a.m. for reassessment of electrolytes and renal function. Transition metoprolol succinate to carvedilol 3.125 mg twice daily. Amlodipine titrated to 5 mg daily on admission due to uncontrolled hypertension. Other cardiovascular medications will be continued as previously ordered. Subjective Patient seen and examined at the bedside. Resting comfortably. No chest discomfort or unusual shortness of breath. Telemetry demonstrates sinus bradycardia with occasional premature ventricular complexes. Blood pressure remains elevated. No concerns reported by nursing staff. No new complaints at this time. Review of Systems Review of Systems: All systems reviewed & are unremarkable except as noted in HPI & below Physical Exam Physical Exam: General: NAD, AAO x3, well nourished. HEENT: Normocephalic. Atraumatic. Conjunctiva pink, no scleral icterus. Neck: 3/4 right-sided carotid bruit, the carotid upstrokes are brisk. No JVD. No HJR Heart: Regular, with ectopy. normal S-1 and S-2 no S-3 or S-4 gallop. 2/6 low pitched, early peaking, systolic ejection murmur. PMI is not displaced. No RV heave. Lungs: Clear bilateral without rales , rhonchi, or wheeze. Abdomen: Normal bowel sounds. Soft. Nontender. No masses or organomegaly. No abdominal bruits. Extremities: No clubbing, cyanosis, or edema. Pulses: radial=2/4. Neuro: Cranial nerves grossly intact. No focal motor deficit. Results & Data Vital Signs (Past 12 Hours) Vital Signs Temp Pulse Pulse Resp BP BP Pulse Ox 05/09/19 09:27 36.3 C L 56 L 18 165/53 H 99 05/09/19 08:28 36.3 C L 57 L 18 165/53 H 99 05/09/19 03:56 36.5 C 58 L 19 149/50 H 94 09/30/19 00:44 60 05/08/19 23:32 36.4 C L 61 18 160/56 H 96 Laboratory Results Laboratory Results - last 24 hr 05/08/19 05/09/19 05/09/19 14:17 05:39 05:39 PT 28.1 H INR 3.0 H Sodium 139 Potassium 4.7 Chloride 102 Carbon Dioxide 30 Anion Gap 7.0 BUN 66 H Creatinine 2.47 H Est Cr Clr Drug Dosing 10.5 Est GFR ( Amer) 19.5 Est GFR (Non-Af Amer) 16.8 BUN/Creatinine Ratio 26.8 H Glucose 80 Calcium 8.5 Troponin I < 0.015 (1) Anemia Anemia type: unspecified type Qualified Code(s): D64.9 - Anemia, unspecified
[2019-05-09] MEDS ORDERED: WARFARIN SOD 3 MG TAB PO SCH (16:00)
[2019-05-09] MEDS: ATORVASTATIN 10 MG TAB PO SCH (20:43)
[2019-05-09] MEDS: carvediloL 3.125 MG TAB PO SCH (20:43)
[2019-05-09] MEDS: LORazepam 0.5 MG TAB PO SCH (20:54)
--- NOTE | 2019-05-09 23:33 | Hospitalist Progress Note ---
Date of Service May 09, 2019 Subjective Made aware by RN of patient agitation starting in the afternoon. Patient yelling out and cannot stop scratching her skin. AP Delirium Multifactorial: Complicated UTI, no sepsis for now Home meds contributory (Bupropion, Ativan) Haldol as needed Follow urine cultures, IV cefepime Appropriate to hold nightly home Ativan for now; hold parameters for bupropion for sedation/confusion Results & Data Vital Signs (Past 12 Hours) Vital Signs Temp Pulse Pulse Resp BP Pulse Ox 05/09/19 18:51 36.6 C 64 16 111/61 97 05/09/19 16:00 51 L 05/09/19 15:12 36.5 C 59 L 17 105/42 L 96 05/09/19 11:35 36.4 C L 53 L 18 90/37 L 96
[2019-05-09] MEDS ORDERED: SODIUM CHLORIDE 0.9% 1000ML 1,000 ML IV ONE (23:35)
[2019-05-09] MEDS ORDERED: EMOLLIENT OINTMENT 1 GM EXT PRN (23:42)
[2019-05-10 00:32] LABS: BUN Creatinine Ratio 29.3 (10-20); Calcium 8.4 mg/dl (8.5-10.1); Est GFR (African American) 20.5; Est GFR (Non-African American) 17.7; Magnesium 2.9 mg/dl (1.8-2.4); Potassium 4.9 mmol/L (3.5-5.1)
[2019-05-10] MEDS: HALOPERIDOL LACTATE 5 MG/ML 1 ML VIAL IM PRN ×2 (00:46→09:10)
[2019-05-10] MEDS ORDERED: CEFEPIME 2,000 MG in SYRINGE 7.5 ML IV SCH (01:00)
[2019-05-10] MEDS ORDERED: POLYETHYLENE (MIRALAX) 17 GM PACK PO PRN (03:53)
[2019-05-10] MEDS: LEVOTHYROXINE SODIUM 88 MCG TABLET PO SCH (05:51)
[2019-05-10 06:36] LABS: INR 2.3 (0.9-1.1); Prothrombin Time 21.8 Seconds (9.0-12.0)
[2019-05-10 06:52] LABS: BUN Creatinine Ratio 31.6 (10-20); Calcium 8.9 mg/dl (8.5-10.1); Creatinine Clr Calc Pharmacy 11.9 ml/min; Est GFR (African American) 22.6; Est GFR (Non-African American) 19.5; Potassium 4.7 mmol/L (3.5-5.1)
[2019-05-10] MEDS: ISOSORBIDE DINITRATE 10 MG TAB PO SCH ×3 (08:04→20:01)
[2019-05-10] MEDS: PANTOprazole 40 MG TAB PO SCH (08:05)
[2019-05-10] MEDS: CETIRIZINE HCL 10 MG TABLET PO SCH (08:05)
[2019-05-10] MEDS: DOCUSATE SODIUM 100 MG CAP PO SCH ×2 (08:05→20:01)
[2019-05-10] MEDS: ASPIRIN 81 MG CHEW PO SCH (08:05)
[2019-05-10] MEDS: carvediloL 3.125 MG TAB PO SCH ×2 (08:05→20:01)
[2019-05-10] MEDS: ESCITALOPRAM OXALATE 10 MG TAB PO SCH (08:06)
[2019-05-10] MEDS ORDERED: [UNRECOGNIZED DRUG - OTHER] PRN (08:10)
[2019-05-10] MEDS: DOCUSATE SODIUM/SENNA 50/8.6MG TAB PO SCH (08:38)
[2019-05-10] MEDS ORDERED: CEFEPIME CONSULT ACTIVE PRN (09:00)
[2019-05-10] MEDS: ACETAMINOPHEN 325 MG TAB PO PRN (09:13)
--- NOTE | 2019-05-10 11:38 | Cardiology Progress Note ---
Date of Service May 10, 2019 Assessment & Plan (1) Left-sided chest pain: (2) Ischemic cardiomyopathy: (3) Chronic systolic (congestive) heart failure: (4) Frequent PVCs: (5) Renal insufficiency: (6) Delirium due to medical condition with behavioral disturbance: (7) Anemia: 88-year-old female admitted with transient episode of atypical chest discomfort. No recurrent discomfort since admission. No evidence of acute coronary syndrome - Cardiac enzymes are negative and ECG unchanged. Continue oral hydration and continued gentle intravenous hydration. Renal function improving. Repeat basic metabolic panel in a.m. for reassessment of electrolytes and renal function. Metoprolol succinate transitioned to carvedilol 3.125 mg twice daily. Labile blood pressure with transient hypotension noted this morning after sedation. Reduce amlodipine to 2.5mg daily (outpatient dose). Other cardiovascular medications will be continued as previously ordered. Physical Exam Physical Exam: General: NAD, AAO x3, well nourished. HEENT: Normocephalic. Atraumatic. Conjunctiva pink, no scleral icterus. Neck: 3/4 right-sided carotid bruit, the carotid upstrokes are brisk. No JVD. No HJR Heart: Regular, with ectopy. normal S-1 and S-2 no S-3 or S-4 gallop. 2/6 low pitched, early peaking, systolic ejection murmur. PMI is not displaced. No RV heave. Lungs: Clear bilateral without rales , rhonchi, or wheeze. Abdomen: Normal bowel sounds. Soft. Nontender. No masses or organomegaly. No abdominal bruits. Extremities: No clubbing, cyanosis, or edema. Pulses: radial=2/4. Neuro: Cranial nerves grossly intact. No focal motor deficit. Results & Data Vital Signs (Past 12 Hours) Vital Signs Temp Pulse Pulse Resp BP BP Pulse Ox 05/10/19 11:35 102/60 05/10/19 11:22 36.4 C L 59 L 14 77/38 L 95 05/10/19 07:26 36.7 C 61 18 148/54 H 96 05/10/19 04:06 36.5 C 66 16 112/64 94 05/10/19 00:00 64 05/09/19 23:55 36.5 C 63 18 101/47 L 95 (1) Anemia Anemia type: unspecified type Qualified Code(s): D64.9 - Anemia, unspecified
[2019-05-10] MEDS: AMLODIPINE BESYLATE 5 MG TAB PO SCH (11:50)
[2019-05-10] MEDS ORDERED: WARFARIN SOD 3 MG TAB PO SCH (16:00)
--- NOTE | 2019-05-10 17:09 | Hospitalist Progress Note ---
Date of Service May 10, 2019 Assessment & Plan (1) Chest pain: ACS ruled out possibly from uncontrolled HTN troponins negative x 3 echo noted, no wall motion abnormalities INR therapeutic Amlodipine increased to 5 mg, metoprolol changed to carvedilol Today, blood pressure in the lower side Transition back to her usual amlodipine 2.5 mg p.o. 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 Lasix on hold, gentle IV fluids given crea improved from 2.9 to 2.1, which is her baseline Holding diuretics for today, monitor renal function UTI, catheter associated Positive for stenotrophomonas Cefepime changed to ceftazidime day #1 Will need at least 7 days of treatment Blood cultures obtained, pending Monitor blood pressure chronic systolic heart failure (EF 30 to 35%, TTE 2018), patient euvolemic to dry Holding diuretics today given gentle IV fluids Metoprolol changed to carvedilol history of valvular heart disease (moderate aortic/mitral/tricuspid regurgitation) history probable PE/DVT --INR 2.3 Resume Coumadin today Check INR tomorrow hypothyroidism, euthyroid chronic anemia secondary to CKD, hemoglobin at baseline chronic urinary retention w/ indwelling Villegas catheter Management of UTI as noted above DVT prophylaxis. INR 2.3, on Coumadin Full code Disposition pending PT/OT evaluation Subjective Follow-up for episode of chest pain, uncontrolled hypertension Patient started on IV cefepime overnight for UTI As per staff nurse anesthetist, patient was having delirium again this morning, reporting pruritus Given Benadryl, Zyrtec, Haldol Seen resting in bed, sleeping, comfortable Blood pressure on the lower side No other signs or symptoms noted Review of Systems Review of Systems: All systems reviewed & are unremarkable except as noted in HPI & below Physical Exam Physical Exam: General-sleeping, not in distress, no accessory muscle use Eyes- anicteric Neck- no JVD Lungs- clear breath sounds bilaterally, no rales/wheezes Heart- normal rate, regular rhythm; no murmurs Abdomen- normal bowel sounds, nondistended, soft, nontender Extremities- no pretibial edema, no calf tenderness Neuro-sleeping Skin- warm & dry Results & Data Vital Signs (Past 12 Hours) Vital Signs Temp Pulse Resp BP BP Pulse Ox 05/10/19 15:24 36.4 C L 61 20 99/42 L 95 05/10/19 11:35 102/60 05/10/19 11:22 36.4 C L 59 L 14 77/38 L 95 05/10/19 07:26 36.7 C 61 18 148/54 H 96 Laboratory Results Laboratory Results - last 24 hr 05/10/19 05/10/19 05/10/19 00:03 05:49 05:49 PT 21.8 H INR 2.3 H Sodium 141 141 Potassium 4.9 4.7 Chloride 104 107 Carbon Dioxide 29 27 Anion Gap 8.0 7.0 BUN 69 H 69 H Creatinine 2.37 H 2.19 H Est Cr Clr Drug Dosing 11.0 11.9 Est GFR ( Amer) 20.5 22.6 Est GFR (Non-Af Amer) 17.7 19.5 BUN/Creatinine Ratio 29.3 H 31.6 H Glucose 82 77 Calcium 8.4 L 8.9 Magnesium 2.9 H
[2019-05-10] MEDS: ATORVASTATIN 10 MG TAB PO SCH (20:02)
[2019-05-11] MEDS: LEVOTHYROXINE SODIUM 88 MCG TABLET PO SCH (05:39)
[2019-05-11 06:15] LABS: INR 1.8 (0.9-1.1); Prothrombin Time 17.7 Seconds (9.0-12.0)
[2019-05-11 06:38] LABS: BUN Creatinine Ratio 31.2 (10-20); Creatinine Clr Calc Pharmacy 13.2 ml/min; Est GFR (African American) 25.2; Est GFR (Non-African American) 21.7; Potassium 4.6 mmol/L (3.5-5.1)
--- NOTE | 2019-05-11 08:09 | Hospitalist Progress Note ---
Date of Service May 11, 2019 Assessment & Plan (1) Chest pain: ACS ruled out possibly from uncontrolled HTN troponins negative x 3 echo noted, no wall motion abnormalities INR therapeutic Amlodipine increased to 5 mg, metoprolol changed to carvedilol During admission, blood pressure was noted to be on the lower side Transitioned back to her usual amlodipine 2.5 mg p.o. 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 Positive for stenotrophomonas, sensitive to ceftazidime, levofloxacin, Bactrim Cefepime changed to ceftazidime day #2 Will need at least 7 days of treatment Blood cultures obtained, no growth after 24 hours, continue to follow Possible Metabolic Encephalopathy secondary to UTI Was confused and having delirium yesterday Mental status much better today Continue to monitor chronic systolic heart failure (EF 30 to 35%, TTE 2019) Holding diuretics today given gentle IV fluids Metoprolol changed to carvedilol Euvolemic, continue to monitor history of valvular heart disease (moderate aortic/mitral/tricuspid regurgitation) history probable PE/DVT --INR 1.8 Usually on Coumadin 3 mg daily Increase to 5 mg today Check INR tomorrow heparin subcutaneous every 12 hours until INR therapeutic hypothyroidism, euthyroid chronic anemia secondary to CKD, hemoglobin at baseline chronic urinary retention w/ indwelling Villegas catheter Management of UTI as noted above DVT prophylaxis. INR 1.8, on Coumadin, on heparin SC Full code Disposition pending Lives with daughter at home PT/OT evaluation Subjective Follow-up for hypertension, chest pain, UTI Seen resting in bed, sleeping with easily awakened Keeps eyes mostly closed, irritable States she feels tired Denies shortness of breath, chest pain, abdominal pain, nausea Oriented x2 No other symptoms Review of Systems Review of Systems: All systems reviewed & are unremarkable except as noted in HPI & below Physical Exam Physical Exam: General- oriented x 2, not in distress, speaks in sentences with no effort or accessory muscle use Eyes- anicteric Neck- no JVD Lungs- clear breath sounds bilaterally, rales, no wheezing Heart- normal rate, regular rhythm; no murmurs Abdomen- normal bowel sounds, nondistended, soft, nontender Extremities- no pretibial edema, no calf tenderness Neuro- alert, oriented x 2; no gross focal neurologic deficits Skin- warm & dry Results & Data Vital Signs (Past 12 Hours) Vital Signs Temp Pulse Pulse Resp BP Pulse Ox 05/11/19 06:37 37 C 70 20 153/46 H 96 05/11/19 04:36 149/48 H 05/11/19 03:50 36.5 C 67 20 175/52 H 94 05/11/19 00:42 62 05/11/19 00:33 36.6 C 55 L 20 155/54 H 96 Laboratory Results Laboratory Results - last 24 hr 05/11/19 05/11/19 05:35 05:35 PT 17.7 H INR 1.8 H Sodium 142 Potassium 4.6 Chloride 109 H Carbon Dioxide 26 Anion Gap 7.0 BUN 62 H Creatinine 2.00 H Est Cr Clr Drug Dosing 13.2 Est GFR ( Amer) 25.2 Est GFR (Non-Af Amer) 21.7 BUN/Creatinine Ratio 31.2 H Glucose 77 Calcium 9.0
[2019-05-11] MEDS: ACETAMINOPHEN 325 MG TAB PO PRN (08:24)
[2019-05-11] MEDS: AMLODIPINE BESYLATE 5 MG TAB PO SCH (08:26)
[2019-05-11] MEDS: ISOSORBIDE DINITRATE 10 MG TAB PO SCH ×3 (08:26→20:00)
[2019-05-11] MEDS: ESCITALOPRAM OXALATE 10 MG TAB PO SCH (08:26)
[2019-05-11] MEDS: PANTOprazole 40 MG TAB PO SCH (08:26)
[2019-05-11] MEDS: DOCUSATE SODIUM/SENNA 50/8.6MG TAB PO SCH (08:26)
[2019-05-11] MEDS: DOCUSATE SODIUM 100 MG CAP PO SCH ×2 (08:26→19:59)
[2019-05-11] MEDS: carvediloL 3.125 MG TAB PO SCH ×2 (08:26→19:59)
[2019-05-11] MEDS: CETIRIZINE HCL 10 MG TABLET PO SCH (08:27)
[2019-05-11] MEDS: cefTAZidime 500 MG in DEXTROSE 5% 50 ML IV SCH (08:27)
[2019-05-11] MEDS: ASPIRIN 81 MG CHEW PO SCH (08:27)
[2019-05-11] MEDS ORDERED: cefTAZidime 500 MG in DEXTROSE 5% 50 ML IV SCH (09:00)
[2019-05-11] MEDS: WARFARIN SOD 5 MG TAB PO SCH (16:25)
[2019-05-11] MEDS: ATORVASTATIN 10 MG TAB PO SCH (20:00)
[2019-05-11] MEDS: HEPARIN SOD 5,000 UNIT/0.5 ML VIAL SQ SCH (20:30)
[2019-05-12] MEDS: LEVOTHYROXINE SODIUM 88 MCG TABLET PO SCH (06:07)
[2019-05-12 06:18] LABS: INR 2.1 (0.9-1.1); Prothrombin Time 20.2 Seconds (9.0-12.0)
[2019-05-12 06:29] LABS: BUN Creatinine Ratio 29.7 (10-20); Calcium 8.8 mg/dl (8.5-10.1); Creatinine Clr Calc Pharmacy 14.1 ml/min; Est GFR (African American) 27.5; Est GFR (Non-African American) 23.7; Potassium 4.9 mmol/L (3.5-5.1)
[2019-05-12] MEDS: cefTAZidime 500 MG in DEXTROSE 5% 50 ML IV SCH (08:43)
[2019-05-12] MEDS: carvediloL 3.125 MG TAB PO SCH ×2 (08:44→20:12)
[2019-05-12] MEDS: DOCUSATE SODIUM/SENNA 50/8.6MG TAB PO SCH (08:44)
[2019-05-12] MEDS: PANTOprazole 40 MG TAB PO SCH (08:44)
[2019-05-12] MEDS: ASPIRIN 81 MG CHEW PO SCH (08:44)
[2019-05-12] MEDS: AMLODIPINE BESYLATE 5 MG TAB PO SCH (08:44)
[2019-05-12] MEDS: ISOSORBIDE DINITRATE 10 MG TAB PO SCH ×3 (08:44→20:13)
[2019-05-12] MEDS: DOCUSATE SODIUM 100 MG CAP PO SCH ×2 (08:44→20:13)
[2019-05-12] MEDS: CETIRIZINE HCL 10 MG TABLET PO SCH (08:45)
[2019-05-12] MEDS: HEPARIN SOD 5,000 UNIT/0.5 ML VIAL SQ SCH ×2 (08:45→20:13)
[2019-05-12] MEDS: ESCITALOPRAM OXALATE 10 MG TAB PO SCH (08:45)
[2019-05-12] MEDS: ACETAMINOPHEN 325 MG TAB PO PRN ×2 (08:49→20:17)
--- NOTE | 2019-05-12 16:07 | Hospitalist Progress Note ---
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 Positive for stenotrophomonas, sensitive to ceftazidime, levofloxacin, Bactrim Antibiotic changed to ceftazidime day #3 Blood cultures obtained, no growth after 24 hours, continue to follow Possible Metabolic Encephalopathy secondary to UTI Mental status improved to baseline, caution for delirium, sundowning Continue to monitor chronic systolic heart failure (EF 30 to 35%, TTE 2019) Volume status remains stable Metoprolol changed to carvedilol Lisinopril resumed history of valvular heart disease (moderate aortic/mitral/tricuspid regur gitation) history probable PE/DVT --INR therapeutic: 2 Continue on on Coumadin hypothyroidism, euthyroid chronic anemia secondary to CKD, hemoglobin at baseline chronic urinary retention w/ indwelling Villegas catheter Management of UTI as noted above DVT prophylaxis. On Coumadin, INR therapeutic Disposition pending Lives with daughter at home PT/OT evaluation requested, social service consult for discharge planning Subjective pt complains of feeling anxious " i need something for my nerves " no overt agitation Physical Exam Constitutional: + thin; no acute distress Eyes: + anicteric sclerae ENMT: external ear and nose normal, oropharynx normal Neck: trachea midline, no thyromegaly Respiratory: normal respiratory effort; no respiratory distress and no labored breathing Cardiovascular: Rate/Rhythm: regular rate and regular rhythm Gastrointestinal (Abdomen): normal bowel sounds, soft, nontender, no hepatosplenomegaly Neurologic: PERRL, EOMI, accommodation nl, no face palsy, no dysarthria Psychiatric: Orientation: alert Affect: + anxious affect Results & Data Vital Signs (Past 12 Hours) Vital Signs Temp Pulse Resp BP BP Pulse Ox 05/12/19 15:32 36.7 C 75 20 167/51 H 96 05/12/19 11:20 36.8 C 78 16 180/55 H 97 05/12/19 07:30 36.9 C 87 16 187/61 H 97
[2019-05-12] MEDS: WARFARIN SOD 5 MG TAB PO SCH (16:41)
[2019-05-12] MEDS: ATORVASTATIN 10 MG TAB PO SCH (20:13)
[2019-05-12] MEDS ORDERED: TRIAMCINOLONE ACET 0.1% CR 15 GM TUBE TOP PRN (20:44)
[2019-05-12] MEDS ORDERED: NITROGLYCERIN 0.3 MG/1 TAB 100 TAB BTL SL PRN (20:44)
[2019-05-12] MEDS: LORazepam 0.5 MG TAB PO SCH (21:04)
[2019-05-12] MEDS: QUETIAPINE FUMARATE 25 MG TABLET PO PRN (21:57)
[2019-05-12] MEDS: FUROSEMIDE 40 MG TAB PO SCH (21:57)
[2019-05-13] MEDS: LEVOTHYROXINE SODIUM 88 MCG TABLET PO SCH (05:50)
[2019-05-13 07:04] LABS: INR 1.9 (0.9-1.1); Prothrombin Time 18.7 Seconds (9.0-12.0)
[2019-05-13 07:25] LABS: BUN Creatinine Ratio 33.2 (10-20); Calcium 9.4 mg/dl (8.5-10.1); Creatinine Clr Calc Pharmacy 15.1 ml/min; Est GFR (African American) 29.8; Est GFR (Non-African American) 25.7; Potassium 4.7 mmol/L (3.5-5.1)
[2019-05-13] MEDS: PANTOprazole 40 MG TAB PO SCH (07:55)
[2019-05-13] MEDS: ESCITALOPRAM OXALATE 10 MG TAB PO SCH (07:56)
[2019-05-13] MEDS: DOCUSATE SODIUM/SENNA 50/8.6MG TAB PO SCH (07:56)
[2019-05-13] MEDS: CETIRIZINE HCL 10 MG TABLET PO SCH (07:56)
[2019-05-13] MEDS: DOCUSATE SODIUM 100 MG CAP PO SCH ×2 (07:56→20:11)
[2019-05-13] MEDS: ISOSORBIDE DINITRATE 10 MG TAB PO SCH ×3 (07:57→20:10)
[2019-05-13] MEDS: FUROSEMIDE 40 MG TAB PO SCH ×2 (07:57→16:07)
[2019-05-13] MEDS: ASPIRIN 81 MG CHEW PO SCH (07:57)
[2019-05-13] MEDS: MAGNESIUM OXIDE 400 MG TAB PO SCH (07:58)
[2019-05-13] MEDS: CHOLECALCIFEROL 1,000 UNITS TAB PO SCH (07:58)
[2019-05-13] MEDS: AMLODIPINE BESYLATE 5 MG TAB PO SCH (07:58)
[2019-05-13] MEDS: carvediloL 3.125 MG TAB PO SCH ×2 (07:59→20:10)
[2019-05-13] MEDS: cefTAZidime 500 MG in DEXTROSE 5% 50 ML IV SCH (08:31)
[2019-05-13] MEDS: WARFARIN SOD 3 MG TAB PO SCH (15:31)
[2019-05-13] MEDS: QUETIAPINE FUMARATE 25 MG TABLET PO PRN (16:37)
--- NOTE | 2019-05-13 17:09 | Hospitalist Progress Note ---
Date of Service May 13, 2019 Assessment & Plan (1) Chest pain: Anxiety disorder Has been a chronic issue, symptom has worsened since hospital admission Continue have patient discharged home with her own surroundings when medically stable Daughter updated at bedside Agitation/delirium Did not had any episode of delirium since yesterday Resumed patient dose of Ativan,-reports of feeling anxious, mentions Ativan has helped her in the past Caution for owning PRN Seroquel for agitation Chest pain No further episode, patient remains symptomatic possibly from uncontrolled HTN troponins negative x 3 echo noted, no wall motion abnormalities INR therapeutic Blood pressure remains stable 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 Positive for stenotrophomonas, sensitive to ceftazidime, levofloxacin, Bactrim Antibiotic changed to ceftazidime day #4 Blood cultures obtained, no growth after 24 hours, Patient will need to 5 days of total treatment Possible Metabolic Encephalopathy secondary to UTI Mental status improved to baseline, caution for delirium, owning Continue to monitor chronic systolic heart failure (EF 30 to 35%, TTE 2019) Volume status remains stable Metoprolol changed to carvedilol Lisinopril resumed Lasix dose reduced to 40 mg daily history of valvular heart disease (moderate aortic/mitral/tricuspid regurgitation) history probable PE/DVT --INR therapeutic: 2 Continue on on Coumadin hypothyroidism, euthyroid chronic anemia secondary to CKD, hemoglobin at baseline chronic urinary retention w/ indwelling Villegas catheter Management of UTI as noted above DVT prophylaxis. On Coumadin, INR therapeutic Disposition Lives with daughter at home Plan to discharge home tomorrow if medically stable Subjective Patient's daughter present at bedside, Patient reports of feeling anxious, symptom gets worse especially in the afternoons, had a good night sleep yesterday Did not had any panic attack throughout the day Per patient's daughter, even at home patient develops intermittent anxiety episodes, Has been on Lexapro, on trazodone at night, also as needed Ativan has been helpful Patient wants to return home, willing for home health visiting nurse Referral made to [facility] Physical Exam Constitutional: + thin; no acute distress Eyes: + anicteric sclerae ENMT: external ear and nose normal, oropharynx normal Neck: trachea midline, no thyromegaly Respiratory: normal respiratory effort; no respiratory distress and no labored breathing Cardiovascular: Rate/Rhythm: regular rate and regular rhythm Gastrointestinal (Abdomen): normal bowel sounds, soft, nontender, no hepatosplenomegaly Neurologic: PERRL, EOMI, accommodation nl, no face palsy, no dysarthria Psychiatric: Orientation: alert Affect: + anxious affect Results & Data Vital Signs (Past 12 Hours) Vital Signs Temp Pulse Resp BP Pulse Ox 05/13/19 15:00 36.5 C 72 18 161/54 H 97 05/13/19 14:37 88 168/67 H 05/13/19 07:24 72 163/65 H 05/13/19 07:05 36.6 C 64 18 192/50 H 98
[2019-05-13] MEDS: ACETAMINOPHEN 325 MG TAB PO PRN (17:15)
[2019-05-13] MEDS: ATORVASTATIN 10 MG TAB PO SCH (20:10)
[2019-05-13] MEDS: LORazepam 0.5 MG TAB PO SCH (20:10)
[2019-05-14] MEDS: ACETAMINOPHEN 325 MG TAB PO PRN (00:40)
[2019-05-14] MEDS: QUETIAPINE FUMARATE 25 MG TABLET PO PRN ×2 (00:40→07:56)
[2019-05-14] MEDS: LEVOTHYROXINE SODIUM 88 MCG TABLET PO SCH (05:57)
[2019-05-14] MEDS: PANTOprazole 40 MG TAB PO SCH (07:54)
[2019-05-14] MEDS: ISOSORBIDE DINITRATE 10 MG TAB PO SCH ×2 (07:55→13:50)
[2019-05-14] MEDS: AMLODIPINE BESYLATE 5 MG TAB PO SCH (07:55)
[2019-05-14] MEDS: CHOLECALCIFEROL 1,000 UNITS TAB PO SCH (07:55)
[2019-05-14] MEDS: MAGNESIUM OXIDE 400 MG TAB PO SCH (07:56)
[2019-05-14] MEDS: ESCITALOPRAM OXALATE 10 MG TAB PO SCH (07:56)
[2019-05-14] MEDS: CETIRIZINE HCL 10 MG TABLET PO SCH (07:57)
[2019-05-14] MEDS: FUROSEMIDE 40 MG TAB PO SCH (07:57)
[2019-05-14] MEDS: carvediloL 3.125 MG TAB PO SCH (07:58)
[2019-05-14 08:03] LABS: INR 1.8 (0.9-1.1); Prothrombin Time 17.6 Seconds (9.0-12.0)
[2019-05-14] MEDS: ASPIRIN 81 MG CHEW PO SCH (08:08)
[2019-05-14] MEDS: DOCUSATE SODIUM/SENNA 50/8.6MG TAB PO SCH (08:08)
[2019-05-14] MEDS: DOCUSATE SODIUM 100 MG CAP PO SCH (08:08)
[2019-05-14] MEDS: cefTAZidime 500 MG in DEXTROSE 5% 50 ML IV SCH (08:26)
[2019-05-14 08:27] LABS: BUN Creatinine Ratio 36.4 (10-20); Calcium 8.9 mg/dl (8.5-10.1); Creatinine Clr Calc Pharmacy 13.1 ml/min; Est GFR (Non-African American) 21.6
--- NOTE | 2019-05-14 11:18 | Discharge Summary ---
Date of Service May 14, 2019 Admission HPI Per Admitting Provider History obtained from patient, family, and records. Medical history significant for chronic systolic heart failure (EF 30 to 35%, TTE 2018), history of valvular heart disease (moderate aortic/mitral/tricuspid regurgitation, hypertension, anxiety, depression, GERD, hyperlipidemia, 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, CRI (baseline creatinine 2.4), hypothyroidism, chronic anemia (baseline hemoglobin 8-9), past tobacco abuse, chronic urinary retention w/ indwelling Wall catheter. Recent confinement January 2019 for acute DVT, moderate to high probability PE on VQ scan, CHF. Patient discharged on Coumadin. Patient woke up from sleep with achy left-sided chest pain going to the shoulder with some shortness of breath. No cough symptoms. Right-sided thumping headache. Appetite not too good the last few days, transient diarrheal illness without belly pain as per patient. Some relief of symptoms with Ativan given at the ER. 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/CHRONIC SYSTOLIC HEART FAILURE/CKD STAGE IV/HISTORY OF DVT PE Discharge Exam Constitutional + thin; no acute distress Eyes + anicteric sclerae ENMT external ear and nose normal, oropharynx normal Neck trachea midline, no thyromegaly Respiratory normal respiratory effort; no respiratory distress and no labored breathing Cardiovascular Rate/Rhythm: regular rate and regular rhythm Gastrointestinal (Abdomen) normal bowel sounds, soft, nontender, no hepatosplenomegaly Neurologic PERRL, EOMI, accommodation nl, no face palsy, no dysarthria Psychiatric Orientation: alert Affect: + anxious affect Discharge Data Allergies Allergy/AdvReac Type Severity Reaction Status Date / Time Penicillins Allergy Intermediate HIVES Verified 05/08/19 00:06 iron AdvReac Mild n&v, abd Verified 05/08/19 00:06 pain Venofer AdvReac Mild n&v, abd Verified 02/28/18 08:54 pain Consultations 05/08/19 01:59 ED Decision to Admit Stat 05/08/19 05:02 Consult Cardiology Routine Ordered Studies 05/08/19 03:02 CT head/brain wo con Urgent Hospital Course (1) Chest pain: Anxiety disorder Has been a chronic issue, symptom has worsened since hospital admission Symptom has improved somewhat Stable to be discharged home today Expected anxiety episode should be improved once she returns back to her own surroundings Agitation/delirium Very calm and pleasant today, sitting up in chair conversing appropriately Happy to know that she will be discharged home Did not had any episode of delirium Resumed patient dose of Ativan,-reports of feeling anxious, mentions Ativan has helped her in the past Caution for sundowning PRN Seroquel for agitation Chest pain No further episode, patient remains symptomatic possibly from uncontrolled HTN troponins negative x 3 echo noted, no wall motion abnormalities INR therapeutic Blood pressure remains stable BP meds adjusted Acute Renal Failure on CKD 4 Lisinopril held on admission due to elevated creatinine, gentle IV fluids given Creatinine improved to 1.8, resume lisinopril Creatinine noted to be 2 today Will reduce patient's Lasix dose to 40 mg daily to prevent volume depletion, worsening of kidney problem Repeat blood work: BMP in 1 week Patient has referral to home health visiting nurse through [facility] UTI, catheter associated Present on Admission (POA) : Wall catheter associated UTI. Positive for stenotrophomonas, sensitive to ceftazidime, levofloxacin, Bactrim Antibiotic changed to ceftazidime day #5 Blood cultures obtained, no growth after 24 hours, Patient will need to 5 days of total treatment Possible Metabolic Encephalopathy secondary to UTI Mental status improved to baseline, caution for delirium, sundowning Continue to monitor chronic systolic heart failure (EF 30 to 35%, TTE 2019) Volume status remains stable Metoprolol changed to carvedilol Lisinopril resumed Lasix dose reduced to 40 mg daily history of valvular heart disease (moderate aortic/mitral/tricuspid regurgitation) history probable PE/DVT - Continue on on Coumadin hypothyroidism, euthyroid chronic anemia secondary to CKD, hemoglobin at baseline chronic urinary retention w/ indwelling Wall catheter Management of UTI as noted above DVT prophylaxis. 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 Quevedo: On 05/19/2019 at 10:45 AM Medication change: Lasix: Dose reduced to 40 mg daily (was on twice daily)-water pill New medication: Coreg 3.125 mg 1 tablet twice daily-for high blood pressure Stop taking METOPROLOL SUCCINATE Home health visiting nurse with [facility] Lab work: Basic metabolic panel: In 1 week Pending Studies at Discharge: No Stand-Alone Forms: My [facility] Medications and DC Order Prescriptions: New carvedilol 3.125 mg Tablet 3.125 mg PO BID 30 Days Qty: 60 RF: 3 Continued levothyroxine 88 mcg tablet 88 mcg PO QAM RF: 0 ranitidine HCl 150 mg tablet 150 mg PO BID RF: 0 isosorbide dinitrate 10 mg tablet 10 mg PO TID RF: 0 aspirin 81 mg Tablet,Chewable 81 mg PO QAM RF: 0 acetaminophen 325 mg Tablet 650 mg PO Q6H MDD 2g/24hr PRN (Reason: Pain) RF: 0 warfarin [Coumadin] 3 mg Tablet 3 mg PO HS RF: 0 Protonix [address] For Susp In Packet 40 mg PO QAM RF: 0 amlodipine 2.5 mg Tablet 2.5 mg PO DAILY RF: 0 lorazepam 0.5 mg Tablet 0.5 mg PO HS PRN (Reason: Anxiety) RF: 0 atorvastatin 10 mg Tablet 10 mg PO PM RF: 0 cholecalciferol (vitamin D3) 1,000 unit Capsule 1,000 unit PO QAM RF: 0 docusate sodium 100 mg Capsule 100 mg PO BID RF: 0 magnesium oxide 400 mg magnesium Tablet 400 mg PO QAM RF: 0 escitalopram oxalate 5 mg Tablet 10 mg PO QAM RF: 0 buspirone 5 mg tablet 5 mg PO BID RF: 0 cetirizine 10 mg Tablet 10 mg PO BID RF: 0 nitroglycerin 0.3 mg tablet, sublingual 0.3 mg sublingual UNKNOWN PRN (Reason: Chest Pain) RF: 0 triamcinolone acetonide 0.1 % cream 1 applic topical BID PRN (Reason: Rash) RF: 0 Changed furosemide 40 mg tablet 40 mg PO DAILY Qty: 0 RF: 0 Discontinued metoprolol succinate 25 mg Tablet Extended Release 24 Hr 12.5 mg PO TID RF: 0 Discharge Orders: Discharge Order (Routine); Ordered 05/14/19 Ordered By: Loreto Haywood Admission Data Admit Date/Time: 05/09/19 18:02 Attending Provider: Loreto Haywood Admit Provider: Hao Altamirano Primary Care Provider: Yogesh Quevedo Other Providers: Abimael Bonds ; Hao Altamirano ; Yasir Hurst ; [facility] Other Interventions: Discharge Summary Assessment (RN) Last Done: 05/14/19 10:31
[2019-05-14] MEDS: WARFARIN SOD 3 MG TAB PO SCH (15:50)
== END 2019-05-14 17:08 | disposition home health service (06) | DRG 698 ==
LOC: ED 23:01 → 2S 23:01 → SUATTDRO 05-09 18:02 → 2W 05-12 16:48

== ENCOUNTER 2019-09-20 11:08 | Inpatient (IN) ==
[2019-09-20 12:18] LABS: Basophils # (auto) 0.01 K/uL (0-0.2); Basophils % (auto) 0.1 %; Eosinophils # (auto) 0.13 K/uL (0-0.5); Eosinophils % (auto) 1.9 %; Hemoglobin 10.1 g/dL (12.0-16.0); Immature Granulocytes # (auto) 0.02 K/uL (0.00-0.02); Immature Granulocytes % (auto) 0.3 %; Lymphocytes # (auto) 1.36 K/uL (1.2-3.4); Lymphocytes % (auto) 20.2 %; Mean Corpuscular Hemoglobin 34.1 pg (25-34); Mean Corpuscular Hgb Conc 33.7 g/dL (32-36); Mean Corpuscular Volume 101.4 fL (80-100); Mean Platelet Volume 10.8 fL (7.4-10.4); Monocytes # (auto) 0.25 K/uL (0.11-0.59); Monocytes % (auto) 3.7 %; Neutrophils # (auto) 4.97 K/uL (1.4-6.5); Neutrophils % (auto) 73.8 %; Platelet Count 142 K/uL (130-400); RDW Coefficient of Variation 14.1 % (11.5-14.5); RDW Standard Deviation 51.7 fL (36.4-46.3); Red Blood Count 2.96 M/uL (4.2-5.4); White Blood Count 6.74 K/uL (4.8-10.8)
--- NOTE | 2019-09-20 12:23 | CT Scan Report ---
CT SCAN OF THE BRAIN WITHOUT IV CONTRAST CLINICAL HISTORY: Fall. Head injury. COMPARISON STUDY: CT of the brain dated 06/02/2019. TECHNIQUE: Unenhanced axial CT scan of the brain is performed from the vertex to the skull base. A do se lowering technique was utilized adhering to the principles of ALARA. CT DOSE: 1390.31 mGy.cm FINDINGS: Brain parenchyma: There are age-related involutional changes noting mild subcortical and periventric ular microangiopathic change. There is no hemorrhage, mass effect, or evidence of acute territorial i schemia by CT criteria. Sánchez-white matter differentiation is preserved. No extra-axial fluid collecti on is seen. Ventricles, sulci, cisterns: Prominent secondary to involutional change. Intracranial vasculature: There is atherosclerotic calcification of the cavernous carotid and vertebr al arteries. Calvarium: The skeletal structures are osteopenic. There is no depressed calvarial fracture. Sinuses and mastoids: The visualized paranasal sinuses are clear. The mastoid air cells are well pneu matized. Orbits: The bony orbits are grossly intact. IMPRESSION: There is no hemorrhage, mass effect, or evidence of acute territorial ischemia by CT michealt javier. ACT 112: Negative or not required by law. Electronically signed by: Oziel Johnson M.D. 09/20/2019 12:22 PM
--- NOTE | 2019-09-20 12:28 | CT Scan Report ---
CT SCAN OF THE CERVICAL SPINE CLINICAL HISTORY: Trauma. Fall. COMPARISON STUDY: CT of the cervical spine dated 06/02/2019. TECHNIQUE: CT scan of the cervical spine is performed from the skull base to the upper thoracic spine . Images are reviewed in the axial, sagittal, and coronal planes. IV contrast was not administered fo r this examination. A dose lowering technique was utilized adhering to the principles of ALARA. FINDINGS: Skeletal structures: The skeletal structures are osteopenic. There is no evidence of fracture or subl uxation involving the cervical spine. Vertebral body height is maintained. There is minimal anterolis thesis at C3-C4. Alignment is otherwise preserved. There is straightening of the cervical lordosis wi th reversal centered at C3-C4. Anterior osteophytes are seen throughout. There is partial bony fusion seen from C5-C7. The odontoid process and lateral masses are intact. The atlantoaxial articulation i s preserved noting productive degenerative change. The spinous processes appear intact. There is 6 mm of anterolisthesis at T2-T3. There is moderate to advanced multilevel cervical spondylosis. Uncovert ebral and facet arthropathy contribute to neural foraminal stenosis at most levels. Intervertebral discs: Advanced disc space narrowing is seen from C4-C5 through C6-C7. Moderate disc s pace narrowing is seen at C2-C3 and T2-T3. Central canal: Posterior disc osteophyte complexes at C4-C5, C5-C6, and C6-C7 likely contribute to mu ltilevel acquired compromise of the central canal. Soft tissues: The prevertebral and paraspinous soft tissues are within normal limits. Calvarium: The visualized calvarium at the skull base appears intact. Brain parenchyma: Partially visualized brain parenchyma the skull base is within normal limits. Sinuses and mastoids: The visualized paranasal sinuses are clear. The mastoid air cells are well pneu matized. Lung apices: A calcified granuloma is noted at the left apex. Upper lobe lung parenchyma is otherwise clear as visualized. IMPRESSION: 1. There is no evidence of fracture or subluxation involving the cervical spine. 2. Osteopenia and spondylotic change as above. ACT 112: Negative or not required by law. Electronically signed by: Oziel Johnson M.D. 09/20/2019 12:26 PM
[2019-09-20 12:38] LABS: Albumin Level 3.7 gm/dl (3.4-5.0); BUN Creatinine Ratio 21.9 (10-20); Creatinine Clr Calc Pharmacy 13.8 ml/min; Est GFR (African American) 24.9; Est GFR (Non-African American) 21.5; Potassium 4.3 mmol/L (3.5-5.1)
[2019-09-20 12:41] LABS: Albumin Globulin Ratio 0.9 (0.9-2); Bilirubin,Total 0.4 mg/dl (0.2-1); Total Protein 7.7 gm/dl (6.4-8.2)
--- NOTE | 2019-09-20 13:03 | XRay Report ---
XR shoulder LT min 2V routine HISTORY: 88 years-old Female fall eval for injury acute left shoulder pain status post fall COMPARISON: Chest radiograph 06/02/2019 TECHNIQUE: 2 views of the left shoulder FINDINGS: Demineralized appearance of the bones. Moderate AC joint with mild to moderate glenohumeral osteoarth ritis. There is no acute fracture, dislocation or opaque foreign body. Mild soft tissue swelling. Kalpana ged lung davis appear clear. Calcified plaque of the thoracic aorta. IMPRESSION: No acute fracture or dislocation. ACT 112: Negative or not required by law. The above report was generated using voice recognition software. It may contain grammatical, syntax o r spelling errors. Electronically signed by: Lefty Madrid M.D. 09/20/2019 1:02 PM
--- NOTE | 2019-09-20 13:05 | XRay Report ---
XR pelvis 1-2V routine CLINICAL HISTORY: Fall. Pain. COMPARISON: Pelvis radiograph April 04, 2019. CT of the abdomen and pelvis August 09, 2019. FINDINGS: No acute fracture within the pelvis or hips is identified. There is moderate to severe rig ht hip osteoarthritis. Left hip arthroplasty is intact although the distal aspect of the femoral comp onent was not imaged on this exam. IMPRESSION: 1. No acute fracture within the pelvis or hips. 2. 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 3. Status post total left hip arthroplasty. Unchanged postoperative appearance although distal aspect of the femoral component not imaged on this exam. ACT 112: Negative or not required by law. Electronically signed by: Hayder Barber M.D. 09/20/2019 1:03 PM
--- NOTE | 2019-09-20 13:08 | XRay Report ---
XR lumbar spine 2-3V HISTORY: 88 years-old Female fall eval for injury acute low back pain status post fall COMPARISON: CT abdomen and pelvis 08/09/2019 TECHNIQUE: 3 views of the lumbar spine FINDINGS: Demineralized appearance of the bones. Dextroscoliosis. No acute fracture or subluxation identified. Advanced multilevel disc space narrowing and facet arthrosis with spondylitic spurring. Calcified gary que of the abdominal aorta. Left hip total joint arthroplasty. Mild gaseous distention of the large b owel. Right hemidiaphragmatic elevation with cardiomegaly. There is equivocal irregularity of the ant erior cortex of the S3 segment seen only on the lateral view. IMPRESSION: 1. No acute fracture or subluxation of the lumbar spine. 2. Suggested cortical irregularity of the anterior cortex of the S3 vertebral body, equivocal for acu te fracture. ACT 112: Negative or not required by law. The above report was generated using voice recognition software. It may contain grammatical, syntax o r spelling errors. Electronically signed by: Lefty Madrid M.D. 09/20/2019 1:06 PM
[2019-09-20] MEDS ORDERED: ONDANSETRON INJ 2 MG/ML 2 ML VIAL IV STA (14:42)
[2019-09-20] MEDS ORDERED: MoRPHine SULFATE 2 MG/ML CARP IV STA (14:42)
--- NOTE | 2019-09-20 14:55 | History & Physical Report ---
Date of Service September 20, 2019 Assessment & Plan (1) Ambulatory dysfunction: (2) Fall: (3) Closed sacral fracture: This is an 88-year-old female with significant PMH of CAD, HTN, HLD, paroxysmal A. 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 Attending discussed case with ED provider in which there was questionable syncopal component to patients fall; however patient currently denies. States fall was unwitnessed. Denies presyncopal symptoms. In ED pt remained hemodynamically stable, but hypertensive BP 174/47. Imaging reveals concern for possible acute S3 fracture. Hip Xray reveals intact L VELMA and severe OADJD of R hip. H/H stable at 10.1 and 30.0, wbc 6.74k, bun 44 and cr 2.02. Received IV Zofran and morphine while in ED. admit to medical telemetry to monitor for cardiac arrhythmia given possible report of syncope Obtain CT scan of pelvis to confirm S3 fracture Consult orthopedic spine Consult PT and OT Pain control Bowel regimen to prevent constipation (4) CAD (coronary artery disease): Denies chest pain or shortness of breath Continue ASA, statin, Imdur, Coreg, warfarin Not on KAEL or arb likely in setting of renal disease (5) HTN (hypertension): Blood pressure elevated likely in setting of pain Continue amlodipine, Coreg, Imdur (6) PAF (paroxysmal atrial fibrillation): Rate and rhythm controlled on coreg Warfarin for anticoagulation INR 1.5 today, give 4.5mg x 1 today repeat INR in a.m. Home regimen (3mg MWF and 1.5mg all other days) (7) CHF (congestive heart failure): History of CHF, diastolic Last echocardiogram 04/2019 revealed EF 55 to 60%, aortic valve sclerosis On Lasix 40 mg Thursday, Continue Imdur (8) CKD (chronic kidney disease), stage IV: BUN/creatinine 44 and 2.02 today Baseline creatinine 1.8-2.0 Monitor BMP (9) HLD (hyperlipidemia): Continue statin (10) Anemia, chronic disease: H&H stable at 10.1 and 30.0 On Epogen every [address] Rodriguez (11) Hypothyroidism: Continue levothyroxine (12) Depression with anxiety: Continue Lexapro, as needed lorazepam Continue BuSpar (13) DVT prophylaxis: continue warfarin Home regimen 3 mg Thursday, 1.5 mg all other days INR 1.5 today, will give 4.5 mg this evening and repeat INR in a.m. Disposition. Admit to telemetry, case management consulted as she may require inpatient rehab given fall, ambulatory dysfunction and possible sacral fx Follow up: PCP Dr. Quevedo upon discharge Pt was seen and examined in collaboration with Dr. García, please see addendum History of Present Illness Chief Complaint: Fall prior to arrival Primary Care Provider: Yogesh Quevedo MD This is an 88-year-old female with significant PMH of CAD, HTN, HLD, paroxysmal A. 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 She lives at home with her daughter Soni. States she just finished eating breakfast/rice krispies when she went to walk over to put her bowl and plate a way. When she went to put bowl on stove to get her balance she lost balance and fell. She said she was trying to reach up when she went down. She usually ambulates with walker, but according to patient she was told her walker was on the other side of the room. She denies LOC or syncope and recalls all events. Denies recent illness, f/c/s, chest pain, sob, palpitations, n/v/d, melena, hematochezia. She has chronic indwelling miller, but patient is unsure why. She complains of b/l leg pain below the knee along with buttock pain. Appetite is stable her patient. She is unsure if she took her meds today and states daughter Soni is in charge of that. Attending discussed case with ED provider in which there was questionable syncopal component to patients fall; however patient currently denies. States fall was unwitnessed. Denies presyncopal symptoms. In ED pt remained hemodynamically stable, but hypertensive BP 174/47. Imaging reveals concern for possible acute S3 fracture. Hip Xray reveals intact L VELMA and severe OADJD of R hip. H/H stable at 10.1 and 30.0, wbc 6.74k, bun 44 and cr 2.02. Received IV Zofran and morphine while in ED. Allergies Allergy/AdvReac Type Severity Reaction Status Date / Time Penicillins Allergy Intermediate HIVES Verified 09/20/19 12:15 iron AdvReac Mild n&v, abd Verified 09/20/19 12:15 pain Venofer AdvReac Mild n&v, abd Verified 02/28/18 08:54 pain Home Medications Home Medications Medication Instructions Recorded Confirmed Type levothyroxine 88 mcg PO DAILYBB 08/16/18 09/20/19 History ranitidine HCl 150 mg PO BID 08/16/18 09/20/19 History atorvastatin 10 mg PO PM 12/10/18 09/20/19 History cholecalciferol (vitamin D3) 1,000 unit PO QAM 12/10/18 09/20/19 History docusate sodium 100 mg PO BID 12/10/18 09/20/19 History acetaminophen 650 mg PO Q6H PRN MDD 2g/24hr 02/08/19 09/20/19 History aspirin 81 mg PO QAM 02/08/19 09/20/19 History isosorbide dinitrate 10 mg PO TID 02/08/19 09/20/19 History buspirone 5 mg PO BID 03/31/19 09/20/19 History cetirizine 10 mg PO QAM PRN 03/31/19 09/20/19 History nitroglycerin 0.3 mg SUBLINGUAL DIRECTED PRN 03/31/19 09/20/19 History triamcinolone acetonide 1 applic TOPICAL BID PRN 03/31/19 09/20/19 History amlodipine 2.5 mg PO DAILY 05/08/19 09/20/19 History lorazepam 0.5 mg PO HS PRN 05/08/19 09/20/19 History epoetin lalita [Procrit] 10,000 unit SUBCUT .[id number] 06/02/19 09/20/19 History escitalopram oxalate [Lexapro] 20 mg PO DAILY 06/02/19 09/20/19 History hydroxyzine HCl 5 mg PO Q6H PRN 06/02/19 09/20/19 History nut.tx.imp.renal fxn,lac-reduc 1 ea PO BID 06/02/19 09/20/19 History [N[place]ro Carb Steady] polyethylene glycol 3350 [Miralax] 17 g PO DAILY PRN 06/02/19 09/20/19 History furosemide 40 mg PO MOWEFR 08/09/19 09/20/19 History carvedilol 3.125 mg PO BID 09/20/19 09/20/19 History pantoprazole 40 mg PO DAILYBB 09/20/19 09/20/19 History warfarin 1.5 mg PO SUTUTHSA 09/20/19 09/20/19 History warfarin 3 mg PO MOWEFR 09/20/19 09/20/19 History Past Med/Surg History Medical History Anemia (Acute) Anxiety (Chronic) Chronic indwelling Miller catheter CKD (chronic kidney disease), stage IV (Chronic) FRANCES (generalized anxiety disorder) (Chronic) GERD (gastroesophageal reflux disease) (Chronic) H/O echocardiogram (Chronic) "03/2015 - EF 60-65%, moderate to severe aortic regurgitation" HLD (hyperlipidemia) (Chronic) HTN (hypertension) (Chronic) Hypothyroidism (Chronic) Major depressive disorder, recurrent, 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) Surgical History Hx of appendectomy (Chronic) Hx of cholecystectomy (Chronic) Hx of dilation and curettage (Chronic) Status post total hip replacement, left (Chronic) Family History Other Hypertension Social History Preferred Language: Latvian Communication Ability: Effective 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: No Beliefs That Will Affect Care: None marital status: / Current Living Situation: Family Current Living Situation Comment: lives with daughter current occupational status: retired Other Information That Helps Us Care for You: No Feels Safe at Home: Yes Safety Concerns: Feels Safe At This Time Smoking Status: Never smoker Do You Dip or Chew Tobacco: No ; Second Hand Exposure: No ; Tobacco Cessation Education Requested by Patient: No Hx Alcohol Use: No Hx Substance Use: No Review of Systems Review of Systems: All systems reviewed & are unremarkable except as noted in HPI & below Physical Exam Physical Exam: Constitutional: Petite, thin, elderly, F, vitals as above, NAD, sitting up in bed, pleasant, conversing easily Head: Normocephalic, Atraumatic Eyes: PERRL, conjunctivae normal, anicteric sclerae ENMT: external ear and nose normal, oropharynx normal Neck: trachea midline, no thyromegaly normal visual inspection Respiratory: normal respiratory effort, lungs clear to auscultation, no wheeze, rales, rhonchi. Normal insp/exp effort, no accessory muscle use Cardiovascular: Regular rate and rhythm, normal s1/s2, no edema Vessels: no JVD or carotid bruit Chest: normal inspection of chest Abdomen: normal bowel sounds, soft, nontender, no hepatosplenomegaly Musculoskeletal: no cyanosis or clubbing, extremities motor strength 5/5 , pinpoint tenderness to sacral vertebral process Skin: no rashes, warm and dry normal turgor Neurologic: PERRL, EOMI, accommodation nl, no face palsy, no dysarthria CN's II-XI intact bilaterally and moves all extremities Psychiatric: A+Ox3 only, euthymic affect Lymphatic: no cervical or axillary lymphadenopathy : deferred Results & Data Vital Signs (Past 12 Hours) Vital Signs Temp Pulse Pulse Resp BP BP Pulse Ox 09/20/19 14:30 72 19 174/47 H 93 09/20/19 14:01 70 18 168/51 H 95 09/20/19 13:30 64 22 174/54 H 96 09/20/19 12:30 61 19 167/38 H 95 09/20/19 12:09 60 16 158/40 H 94 09/20/19 11:31 61 18 153/39 H 97 09/20/19 11:16 36.7 C 66 24 160/41 H 95 Laboratory Results Short CBC 09/20/19 09/20/19 09/20/19 Range/Units 12:04 12:04 12:04 WBC 6.74 (4.8-10.8) K/uL Hgb 10.1 L (12.0-16.0) g/dL Hct 30.0 L (37-47) % Plt Count 142 (130-400) K/uL Creatinine 2.02 H (0.6-1.2) mg/dl Troponin I 0.045 (0-0.045) ng/ml BMP 09/20/19 12:04 Sodium 140 Potassium 4.3 Chloride 111 H Carbon Dioxide 23 BUN 44 H Creatinine 2.02 H Glucose 80 Calcium 9.0 Cardiac Enzymes 09/20/19 Range/Units 12:04 Troponin I 0.045 (0-0.045) ng/ml Liver Function 09/20/19 Range/Units 12:04 Total Bilirubin 0.4 (0.2-1) mg/dl AST 47 H (15-37) U/L ALT 61 (12-78) U/L Alkaline Phosphatase 92 (45-117) U/L Albumin 3.7 (3.4-5.0) gm/dl Diagnostic Findings Cspine CT: IMPRESSION: 1. There is no evidence of fracture or subluxation involving the cervical spine. 2. Osteopenia and spondylotic change as above. Head CT: IMPRESSION: There is no hemorrhage, mass effect, or evidence of acute territorial ischemia by CT criteria. Lumbar Spine Xray: IMPRESSION: 1. No acute fracture or subluxation of the lumbar spine. 2. Suggested cortical irregularity of the anterior cortex of the S3 vertebral body, equivocal for acute fracture. Pelvis Xray: IMPRESSION: 1. No acute fracture within the pelvis or hips. 2. 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 3. Status post total left hip arthroplasty. Unchanged postoperative appearance although distal aspect of the femoral component not imaged on this exam. Shoulder Xray: FINDINGS: Demineralized appearance of the bones. Moderate AC joint with mild to moderate glenohumeral osteoarthritis. There is no acute fracture, dislocation or opaque foreign body. Mild soft tissue swelling. Imaged lung davis appear clear. Calcified plaque of the thoracic aorta. IMPRESSION: No acute fracture or dislocation. Medications Administered Discontinued Medications Morphine Sulfate (Morphine Sulfate) 2 mg IV NOW STA Stop: 09/20/19 14:43 Last Admin: 09/20/19 14:46 Dose: 2 mg Documented by: [id number] Ondansetron HCl (Zofran) 4 mg IV NOW STA Stop: 09/20/19 14:43 Last Admin: 09/20/19 14:46 Dose: 4 mg Documented by: [id number] ECG Rate (beats per minute): 63 Rhythm: normal sinus Findings: + 1st degree AV block Code Status & VTE Plan Code Status Full Code per discussion with Melodie South during previous hospitalization she was DNR; however will need to confirm with daughter VTE Prophylaxis Plan VTE Prophylaxis will be ordered: Yes Supervising Physician Co-Signing Physician Notes I performed a history and physical exam of the patient on 09/20/2019. I have discussed the patient's management with the advanced practitioner. Please refer to the PA-C's note for documented findings and plan of care. Elderly female presenting after what sounds like a mechanical fall. She does not think that she passed out. Lab work and imaging reviewed. Obtain CT to confirm if there is S3 fracture. PT/OT. Rest as above. (1) Closed sacral fracture Encounter type: initial encounter Zone of sacrum fracture: unspecified portion of sacrum Qualified Code(s): S32.10XA - Unspecified fracture of sacrum, initial encounter for closed fracture
--- NOTE | 2019-09-20 15:06 | Electrocardiogram Report ---
Test Reason : Blood Pressure : / mmHG Vent. Rate : 063 BPM Atrial Rate : 063 BPM P-R Int : 294 ms QRS Dur : 086 ms QT Int : 432 ms P-R-T Axes : 056 -05 073 degrees QTc Int : 442 ms Sinus rhythm with 1st degree A-V block with occasional Premature ventricular complexes and Premature atrial complexes Left ventricular hypertrophy with repolarization abnormality Cannot rule out Septal infarct , age undetermined Abnormal ECG When compared with ECG of 02-JUN-2019 07:35, Premature ventricular complexes are now Present Premature atrial complexes are now Present Nonspecific T wave abnormality no longer evident in Inferior leads Confirmed by Izaiah Vasquez ([id number]) on 09/20/2019 3:06:07 PM Referred By: REFERRED SELF Confirmed By:Izaiah Vasquez
[2019-09-20 15:10] LABS: INR 1.5 (0.9-1.1); Prothrombin Time 14.5 Seconds (9.0-12.0)
--- NOTE | 2019-09-20 16:54 | CT Scan Report ---
CT pelvis wo con HISTORY: 88 years-old Female Sacrum and coccyx, xray showing S3 fracture acute low back pain with po ssible sacral fracture COMPARISON: Lumbar spine radiographs of same day, CT abdomen and pelvis 08/09/2019 TECHNIQUE: Multiple axial CT images of the pelvis were obtained without the use of IV contrast. A dos e lowering technique was used consistent with the principals of ZANDRA. FINDINGS: Confirmation of the acute versus subacute fracture involving the anterior cortex of the S3 segment, n ew from 08/09/2019. This finding is best appreciated on the sagittal images. Advanced spondylitic spu rring and facet arthrosis of the imaged lower lumbar spine. Demineralized appearance of the bones méndez its evaluation for subtle acute nondisplaced fractures. No definite additional fracture identified. S evere right hip osteoarthritis. Left hip total joint arthroplasty without evidence of hardware compli cation. Mild presacral edema is likely reactive. Villegas catheter within a decompressed urinary bladder. Coloni c diverticulosis. Extensive calcified plaque of the abdominal aorta. Soft tissues are unremarkable. IMPRESSION: 1. Confirmation of the subtle acute versus subacute fracture involving the anterior cortex of the S3 segment, new from 08/09/2019. 2. Demineralized appearance of the bones with degenerative changes as above. No definite additional a cute fracture or subluxation identified. 3. Mild presacral edema may be reactive. ACT 112: Negative or not required by law. The above report was generated using voice recognition software. It may contain grammatical, syntax o r spelling errors. Electronically signed by: Lefty Madrid M.D. 09/20/2019 4:53 PM
[2019-09-20] MEDS ORDERED: POLYETHYLENE (MIRALAX) 17 GM PACK PO PRN (17:00)
[2019-09-20] MEDS ORDERED: LORazepam 0.5 MG TAB PO PRN (17:00)
[2019-09-20] MEDS ORDERED: MoRPHine SULFATE 2 MG/ML CARP IV PRN (17:00)
[2019-09-20] MEDS ORDERED: ACETAMINOPHEN W/CODEINE #3 1 TAB PO PRN (17:00)
--- NOTE | 2019-09-20 17:23 | Emergency Department Note ---
Entered by Maddi Andrew acting as a scribe for Leon Fry MD History of Present Illness General Chief complaint: Fall Stated complaint: fall/ head & knee pain Time Seen by Provider: 09/20/19 11:29 Source: patient History of Present Illness Onset (ago): minute(s) (prior to arrival) Location: head, neck, back and left (shoulder) Pain Consistency: + other (episode) Maximum Pain Intensity: 5 Quality: + other (fall) Exacerbated By: + movement Associated symptoms: + denies other symptoms (lightheadedness, palpitations) and + other (head pain, neck pain, back pain, left shoulder pain); no chest pain and no shortness of breath The patient is an 88 year old female who presents to the Emergency Room with complaints of an episode of a fall occurring prior to arrival. The patient states that this morning she was eating breakfast and got up to put her dish in the sink. She states that when she did, she suddenly fell backwards. She reports that she is unsure what happened as it happened so fast, but she doesnt think she tripped. She reports that she landed on her butt, but did hit her head. She notes that she is not sure if she lost consciousness or not. She states that since falling she has had head pain, neck pain, back pain, and left shoulder pain. She notes that she doesnt think she hit her shoulder, but it happened so fast she doesnt know. She notes that the pain in her neck and head are worse with movement. The patient denies lightheadedness, chest pain, palpitations, and shortness of breath. She states that she had no symptoms prior to the fall. Home Medications Home Medications Medication Instructions Recorded Confirmed Type levothyroxine 88 mcg PO DAILYBB 08/16/18 09/20/19 History ranitidine HCl 150 mg PO BID 08/16/18 09/20/19 History atorvastatin 10 mg PO PM 12/10/18 09/20/19 History cholecalciferol (vitamin D3) 1,000 unit PO QAM 12/10/18 09/20/19 History docusate sodium 100 mg PO BID 12/10/18 09/20/19 History acetaminophen 650 mg PO Q6H PRN MDD 2g/24hr 02/08/19 09/20/19 History aspirin 81 mg PO QAM 02/08/19 09/20/19 History isosorbide dinitrate 10 mg PO TID 02/08/19 09/20/19 History buspirone 5 mg PO BID 03/31/19 09/20/19 History cetirizine 10 mg PO QAM PRN 03/31/19 09/20/19 History nitroglycerin 0.3 mg SUBLINGUAL DIRECTED PRN 03/31/19 09/20/19 History triamcinolone acetonide 1 applic TOPICAL BID PRN 03/31/19 09/20/19 History amlodipine 2.5 mg PO DAILY 05/08/19 09/20/19 History lorazepam 0.5 mg PO HS PRN 05/08/19 09/20/19 History epoetin lalita [Procrit] 10,000 unit SUBCUT .[id number] 06/02/19 09/20/19 History escitalopram oxalate [Lexapro] 20 mg PO DAILY 06/02/19 09/20/19 History hydroxyzine HCl 5 mg PO Q6H PRN 06/02/19 09/20/19 History nut.tx.imp.renal fxn,lac-reduc 1 ea PO BID 06/02/19 09/20/19 History [Nepro Carb Steady] polyethylene glycol 3350 [Miralax] 17 g PO DAILY PRN 06/02/19 09/20/19 History furosemide 40 mg PO MOWEFR 08/09/19 09/20/19 History carvedilol 3.125 mg PO BID 09/20/19 09/20/19 History pantoprazole 40 mg PO DAILYBB 09/20/19 09/20/19 History warfarin 1.5 mg PO SUTUTHSA 09/20/19 09/20/19 History warfarin 3 mg PO MOWEFR 09/20/19 09/20/19 History Allergies Allergy/AdvReac Type Severity Reaction Status Date / Time Penicillins Allergy Intermediate HIVES Verified 09/20/19 12:15 iron AdvReac Mild n&v, abd Verified 09/20/19 12:15 pain Venofer AdvReac Mild n&v, abd Verified 02/28/18 08:54 pain Past Med/Surg History Medical History Anemia (Acute) Anxiety (Chronic) Chronic indwelling Villegas catheter CKD (chronic kidney disease), stage IV (Chronic) FRANCES (generalized anxiety disorder) (Chronic) GERD (gastroesophageal reflux disease) (Chronic) H/O echocardiogram (Chronic) "03/2015 - EF 60-65%, moderate to severe aortic regurgitation" HLD (hyperlipidemia) (Chronic) HTN (hypertension) (Chronic) Hypothyroidism (Chronic) Major depressive disorder, recurrent, 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) Surgical History Hx of appendectomy (Chronic) Hx of cholecystectomy (Chronic) Hx of dilation and curettage (Chronic) Status post total hip replacement, left (Chronic) Family History Other Hypertension Social History Preferred Language: Polish Communication Ability: Effective Inspector Barrel Required: No Beliefs That Will Affect Care: None marital status: / Current Living Situation: Family Current Living Situation Comment: lives with daughter current occupational status: retired Other Information That Helps Us Care for You: No Feels Safe at Home: Yes Safety Concerns: Feels Safe At This Time Smoking Status: Never smoker Do You Dip or Chew Tobacco: No ; Second Hand Exposure: No ; Tobacco Cessation Education Requested by Patient: No Hx Alcohol Use: No Hx Substance Use: No Review of Systems See HPI for pertinent positives & negatives. and A total of 10 systems reviewed and were otherwise negative Physical Exam Vital Signs Vital Signs - 24 hr 09/20/19 11:16 09/20/19 11:31 09/20/19 12:09 Temperature 36.7 C Temperature Source Oral Pulse Rate 66 61 Pulse Rate [Apical] 60 Pulse Rate from SpO2 Sensor 63 Pulse Rhythm Regular Pulse Strength Normal Respiratory Rate 24 18 16 Respiratory Effort / Characteristics Non-Labored Spontaneous Respiratory Depth Normal Respiratory Pattern Regular Blood Pressure 160/41 H 153/39 H Blood Pressure [Right Arm] 158/40 H Blood Pressure Mean 80 54 Blood Pressure Mean [Right Arm] 79 Pulse Oximetry 95 97 94 Oxygen Delivery Method Room Air Room Air Room Air Sepsis Recent Fever Within 48 Hours No Sepsis Action Taken by Nursing No Action Required 09/20/19 12:30 09/20/19 13:30 09/20/19 14:01 Temperature Temperature Source Pulse Rate 61 64 70 Pulse Rate [Apical] Pulse Rate from SpO2 Sensor 61 64 71 Pulse Rhythm Pulse Strength Respiratory Rate 19 22 18 Respiratory Effort / Characteristics Respiratory Depth Respiratory Pattern Blood Pressure 167/38 H 174/54 H 168/51 H Blood Pressure [Right Arm] Blood Pressure Mean 63 66 66 Blood Pressure Mean [Right Arm] Pulse Oximetry 95 96 95 Oxygen Delivery Method Room Air Room Air Room Air Sepsis Recent Fever Within 48 Hours Sepsis Action Taken by Nursing 09/20/19 14:30 Temperature Temperature Source Pulse Rate 72 Pulse Rate [Apical] Pulse Rate from SpO2 Sensor 68 Pulse Rhythm Pulse Strength Respiratory Rate 19 Respiratory Effort / Characteristics Respiratory Depth Respiratory Pattern Blood Pressure 174/47 H Blood Pressure [Right Arm] Blood Pressure Mean 71 Blood Pressure Mean [Right Arm] Pulse Oximetry 93 Oxygen Delivery Method Room Air Sepsis Recent Fever Within 48 Hours Sepsis Action Taken by Nursing Constitutional: Vital signs reviewed. Eyes: Pupils are equal round reactive to light. Conjunctiva are noninjected. ENT: Pharynx is clear without erythema or exudate. Mucous membranes are moist. Neck supple without meningeal signs. Respiratory: Clear to auscultation bilaterally. Breath sounds are equal bilaterally. Cardiovascular: Regular rate and rhythm. No rubs or gallops. GI: Soft, nondistended and nontender. Bowel sounds are present. Musculoskeletal: No peripheral edema. No midline tenderness to the cervical spine. No hip tenderness. Pain to the left knee with ROM, but no bony tenderness. Some left anterior shoulder tenderness. Integumentary: No cyanosis. Neurological: The patient is awake and alert. Cranial nerves II-XII are intact. Motor is 5 out of 5 all extremities. Sensation is intact to light touch all extremities. Normal speech. No pronator drift. Psychiatric: Normal affect. Course Course 1132: The patient was evaluated in room A11B. A complete history and physical exam was performed. 1320: I reevaluated the patient and she is tender over her sacrum. She says that after she fell, she was unable to walk. She is still not sure if she lost consciousness. I discussed the patient's test results and the treatment plan with her. She verbally agrees and understands. 1351: I discussed the patient's case with Dr. Laura [facility]. He will evaluate the patient for further management. 1442: Nursing staff informed me that the patient is asking for something for her pain. Administered Medications Discontinued Medications Morphine Sulfate (Morphine Sulfate) 2 mg IV NOW STA Stop: 09/20/19 14:43 Last Admin: 09/20/19 14:46 Dose: 2 mg Documented by: [id number] Ondansetron HCl (Zofran) 4 mg IV NOW STA Stop: 09/20/19 14:43 Last Admin: 09/20/19 14:46 Dose: 4 mg Documented by: [id number] Medical Decision Making Differential Diagnosis Differential diagnoses include ICH, concussion, contusion, skull fracture, anemia, pelvic fracture. Medical Records Attestation: I reviewed the patient's medical records. I did perform a limited focused review of portions of the patient's old chart on the electronic medical record. The patient was seen her August 09 after a fall. She had a workup here including blood work which showed anemia and elevated creatinine. She was diagnosed with back pain. Home Medications Current Medication List: was personally reviewed by me Laboratory Data Attestation: I reviewed the patient's lab results. Result diagrams: 09/20/19 12:04 09/20/19 12:04 Lab Results 09/20/19 09/20/19 09/20/19 Range/Units 12:04 12:04 12:04 WBC 6.74 (4.8-10.8) K/uL RBC 2.96 L (4.2-5.4) M/uL Hgb 10.1 L (12.0-16.0) g/dL Hct 30.0 L (37-47) % MCV 101.4 H (80-100) fL MCH 34.1 H (25-34) pg MCHC 33.7 (32-36) g/dL RDW Std Deviation 51.7 H (36.4-46.3) fL RDW Coeff of Liss 14.1 (11.5-14.5) % Plt Count 142 (130-400) K/uL MPV 10.8 H (7.4-10.4) fL Immature Gran % (Auto) 0.3 % Neut % (Auto) 73.8 % Lymph % (Auto) 20.2 % Ulster % (Auto) 3.7 % Eos % (Auto) 1.9 % Baso % (Auto) 0.1 % Immature Gran # (Auto) 0.02 (0.00-0.02) K/uL Neut # (Auto) 4.97 (1.4-6.5) K/uL Lymph # (Auto) 1.36 (1.2-3.4) K/uL Ulster # (Auto) 0.25 (0.11-0.59) K/uL Eos # (Auto) 0.13 (0-0.5) K/uL Baso # (Auto) 0.01 (0-0.2) K/uL PT (9.0-12.0) Seconds INR (0.9-1.1) Sodium 140 (136-145) mmol/L Potassium 4.3 (3.5-5.1) mmol/L Chloride 111 H (98-107) mmol/L Carbon Dioxide 23 (21-32) mmol/L Anion Gap 6.0 (3-11) BUN 44 H (7-18) mg/dl Creatinine 2.02 H (0.6-1.2) mg/dl Est Cr Clr Drug Dosing 13.8 ml/min Est GFR ( Amer) 24.9 Est GFR (Non-Af Amer) 21.5 BUN/Creatinine Ratio 21.9 H (10-20) Glucose 80 (70-99) mg/dl Calcium 9.0 (8.5-10.1) mg/dl Total Bilirubin 0.4 (0.2-1) mg/dl AST 47 H (15-37) U/L ALT 61 (12-78) U/L Alkaline Phosphatase 92 (45-117) U/L Troponin I 0.045 (0-0.045) ng/ml Total Protein 7.7 (6.4-8.2) gm/dl Albumin 3.7 (3.4-5.0) gm/dl Globulin 4.0 (2.5-4.0) gm/dl Albumin/Globulin Ratio 0.9 (0.9-2) 09/20/19 Range/Units 12:04 WBC (4.8-10.8) K/uL RBC (4.2-5.4) M/uL Hgb (12.0-16.0) g/dL Hct (37-47) % MCV (80-100) fL MCH (25-34) pg MCHC (32-36) g/dL RDW Std Deviation (36.4-46.3) fL RDW Coeff of Liss (11.5-14.5) % Plt Count (130-400) K/uL MPV (7.4-10.4) fL Immature Gran % (Auto) % Neut % (Auto) % Lymph % (Auto) % Ulster % (Auto) % Eos % (Auto) % Baso % (Auto) % Immature Gran # (Auto) (0.00-0.02) K/uL Neut # (Auto) (1.4-6.5) K/uL Lymph # (Auto) (1.2-3.4) K/uL Ulster # (Auto) (0.11-0.59) K/uL Eos # (Auto) (0-0.5) K/uL Baso # (Auto) (0-0.2) K/uL PT 14.5 H (9.0-12.0) Seconds INR 1.5 H (0.9-1.1) Sodium (136-145) mmol/L Potassium (3.5-5.1) mmol/L Chloride (98-107) mmol/L Carbon Dioxide (21-32) mmol/L Anion Gap (3-11) BUN (7-18) mg/dl Creatinine (0.6-1.2) mg/dl Est Cr Clr Drug Dosing ml/min Est GFR ( Amer) Est GFR (Non-Af Amer) BUN/Creatinine Ratio (10-20) Glucose (70-99) mg/dl Calcium (8.5-10.1) mg/dl Total Bilirubin (0.2-1) mg/dl AST (15-37) U/L ALT (12-78) U/L Alkaline Phosphatase (45-117) U/L Troponin I (0-0.045) ng/ml Total Protein (6.4-8.2) gm/dl Albumin (3.4-5.0) gm/dl Globulin (2.5-4.0) gm/dl Albumin/Globulin Ratio (0.9-2) Imaging Data Radiologist's Impression: Radiology results as stated below per my review and the radiologist's interpretation: XR shoulder LT min 2V routine HISTORY: 88 years-old Female fall eval for injury acute left shoulder pain status post fall COMPARISON: Chest radiograph 06/02/2019 TECHNIQUE: 2 views of the left shoulder FINDINGS: Demineralized appearance of the bones. Moderate AC joint with mild to moderate glenohumeral osteoarthritis. There is no acute fracture, dislocation or opaque foreign body. Mild soft tissue swelling. Imaged lung davis appear clear. Calcified plaque of the thoracic aorta. IMPRESSION: No acute fracture or dislocation. ACT 112: Negative or not required by law. The above report was generated using voice recognition software. It may contain grammatical, syntax or spelling errors. Electronically signed by: Lefty Madrid M.D. 09/20/2019 1:02 PM XR lumbar spine 2-3V HISTORY: 88 years-old Female fall eval for injury acute low back pain status post fall COMPARISON: CT abdomen and pelvis 08/09/2019 TECHNIQUE: 3 views of the lumbar spine FINDINGS: Demineralized appearance of the bones. Dextroscoliosis. No acute fracture or subluxation identified. Advanced multilevel disc space narrowing and facet arthrosis with spondylitic spurring. Calcified plaque of the abdominal aorta. Left hip total joint arthroplasty. Mild gaseous distention of the large bowel. Right hemidiaphragmatic elevation with cardiomegaly. There is equivocal irregularity of the anterior cortex of the S3 segment seen only on the lateral view. IMPRESSION: 1. No acute fracture or subluxation of the lumbar spine. 2. Suggested cortical irregularity of the anterior cortex of the S3 vertebral body, equivocal for acute fracture. ACT 112: Negative or not required by law. The above report was generated using voice recognition software. It may contain grammatical, syntax or spelling errors. Electronically signed by: Lefty Madrid M.D. 09/20/2019 1:06 PM XR pelvis 1-2V routine CLINICAL HISTORY: Fall. Pain. COMPARISON: Pelvis radiograph April 04, 2019. CT of the abdomen and pelvis August 09, 2019. FINDINGS: No acute fracture within the pelvis or hips is identified. There is moderate to severe right hip osteoarthritis. Left hip arthroplasty is intact although the distal aspect of the femoral component was not imaged on this exam. IMPRESSION: 1. No acute fracture within the pelvis or hips. 2. 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 3. Status post total left hip arthroplasty. Unchanged postoperative appearance although distal aspect of the femoral component not imaged on this exam. ACT 112: Negative or not required by law. Electronically signed by: Hayder Barber M.D. 09/20/2019 1:[address] SCAN OF THE BRAIN WITHOUT IV CONTRAST CLINICAL HISTORY: Fall. Head injury. COMPARISON STUDY: CT of the brain dated 06/02/2019. TECHNIQUE: Unenhanced axial CT scan of the brain is performed from the vertex to the skull base. A dose lowering technique was utilized adhering to the principles of ALARA. CT DOSE: 1390.31 mGy.cm FINDINGS: Brain parenchyma: There are age-related involutional changes noting mild subcortical and periventricular microangiopathic change. There is no hemorrhage, mass effect, or evidence of acute territorial ischemia by CT criteria. Sánchez- white matter differentiation is preserved. No extra-axial fluid collection is seen. Ventricles, sulci, cisterns: Prominent secondary to involutional change. Intracranial vasculature: There is atherosclerotic calcification of the cav ernous carotid and vertebral arteries. Calvarium: The skeletal structures are osteopenic. There is no depressed calvarial fracture. Sinuses and mastoids: The visualized paranasal sinuses are clear. The mastoid air cells are well pneumatized. Orbits: The bony orbits are grossly intact. IMPRESSION: There is no hemorrhage, mass effect, or evidence of acute territorial ischemia by CT criteria. ACT 112: Negative or not required by law. Electronically signed by: Oziel Johnson M.D. 09/20/2019 12:[address] SCAN OF THE CERVICAL SPINE CLINICAL HISTORY: Trauma. Fall. COMPARISON STUDY: CT of the cervical spine dated 06/02/2019. TECHNIQUE: CT scan of the cervical spine is performed from the skull base to the upper thoracic spine. Images are reviewed in the axial, sagittal, and coronal planes. IV contrast was not administered for this examination. A dose lowering technique was utilized adhering to the principles of ALARA. FINDINGS: Skeletal structures: The skeletal structures are osteopenic. There is no evidence of fracture or subluxation involving the cervical spine. Vertebral body height is maintained. There is minimal anterolisthesis at C3-C4. Alignment is otherwise preserved. There is straightening of the cervical lordosis with rev ersal centered at C3-C4. Anterior osteophytes are seen throughout. There is partial bony fusion seen from C5-C7. The odontoid process and lateral masses are intact. The atlantoaxial articulation is preserved noting productive degenerative change. The spinous processes appear intact. There is 6 mm of anterolisthesis at T2-T3. There is moderate to advanced multilevel cervical spondylosis. Uncovertebral and facet arthropathy contribute to neural foraminal stenosis at most levels. Intervertebral discs: Advanced disc space narrowing is seen from C4-C5 through C6-C7. Moderate disc space narrowing is seen at C2-C3 and T2-T3. Central canal: Posterior disc osteophyte complexes at C4-C5, C5-C6, and C6-C7 likely contribute to multilevel acquired compromise of the central canal. Soft tissues: The prevertebral and paraspinous soft tissues are within normal limits. Calvarium: The visualized calvarium at the skull base appears intact. Brain parenchyma: Partially visualized brain parenchyma the skull base is within normal limits. Sinuses and mastoids: The visualized paranasal sinuses are clear. The mastoid air cells are well pneumatized. Lung apices: A calcified granuloma is noted at the left apex. Upper lobe lung parenchyma is otherwise clear as visualized. IMPRESSION: 1. There is no evidence of fracture or subluxation involving the cervical spine. 2. Osteopenia and spondylotic change as above. ACT 112: Negative or not required by law. Electronically signed by: Oziel Johnson M.D. 09/20/2019 12:26 PM ECG Data Attestation: I personally reviewed and interpreted this ECG as follows: Indication: + back/shoulder pain Rate (beats per minute): 63 Rhythm: + sinus rhythm ECG Intervals/blocks: + First degree AV block ECG Findings: + PVCs and + Other (slight j point elevation in the anterior leads) Comparison ECG Date: from (06/02/2019) Change: no significant change Blood Pressure Blood Pressure Findings: Elevated blood pressure Blood Pressure Disposition: Referred to patients primary care provider Head Trauma GCS Score: 15 MDM Narrative I did evaluate the patient as noted above. The patient is presenting after falling today. She does not know how she fell. She stated it happened very suddenly and she had no prodromal symptoms. She does not know if she lost consciousness. She does complain of back pain and headache at this time. She is neurologically intact. She does have some tenderness to the sacrum. She has pain with range of motion of the left knee but she fell backwards onto her buttocks and did not injure her knee during the fall. IV access was established. The patient was placed on a continuous laboratory monitor. I did order and personally review the patient's 12-lead EKG as described above. Her twelve- lead EKG shows PVCs and a first-degree AV block. I did order and personally reviewed the images of the patient's x-rays as described above. There is no evidence of fracture or dislocation. I did order and review the patient's blood work as noted in the electronic medical record. She has chronic anemia with a hemoglobin of 10. Her creatinine is elevated consistent with her chronic kidney disease. Troponin is negative. I did order a CT of the head and cervical spine. I did review the images myself as well as the radiology report as described above. There is no evidence of acute intracranial abnormality or cervical fracture. I did discuss the test results with the patient. I did recommend hospitalization for further work-up. I did treat her with IV morphine and Zofran for pain. I did discuss case the hospitalist and onsite case manager. Impression & Plan Syncope, Anemia, Closed sacral fracture, CKD (chronic kidney disease), Ambulatory dysfunction, Acute head injury Discharge Plan Visit Data *Final* Discharge Date/Time: 09/20/19 16:04 Chief Complaint: Fall Stated Complaint: fall/ head & knee pain ED Provider: Leon Fry Discharge Problem: Syncope, Anemia, Closed sacral fracture, CKD (chronic kidney disease), Ambulatory dysfunction, Acute head injury Patient Disposition: Admitted As Inpatient Discharge Instructions Interventions: ED Discharge Assessment Last Done: 09/20/19 16:04 Discharge Problem: Syncope Qualifiers: Syncope type: unspecified Qualified Code(s): R55 - Syncope and collapse Anemia Qualifiers: Anemia type: unspecified type Qualified Code(s): D64.9 - Anemia, unspecified Closed sacral fracture Qualifiers: Encounter type: initial encounter Zone of sacrum fracture: unspecified portion of sacrum Qualified Code(s): S32.10XA - Unspecified fracture of sacrum, initial encounter for closed fracture CKD (chronic kidney disease) Qualifiers: Chronic kidney disease stage: unspecified stage Qualified Code(s): N18.9 - Chronic kidney disease, unspecified Acute head injury Qualifiers: Encounter type: initial encounter Qualified Code(s): S09.90XA - Unspecified injury of head, initial encounter The scribe's documentation has been prepared under my direction and personally reviewed by me in its entirety. I confirm that the note above accurately reflects all work, treatment, procedures, and medical decision making performed by me.
[2019-09-20] MEDS ORDERED: WARFARIN SOD 2.5 MG TAB PO ONE (17:30)
[2019-09-20] MEDS ORDERED: WARFARIN SOD 2 MG TAB PO ONE (17:30)
[2019-09-20] MEDS: ACETAMINOPHEN 325 MG TAB PO PRN (17:59)
[2019-09-20] MEDS: ISOSORBIDE DINITRATE 10 MG TAB PO SCH (18:00)
[2019-09-20] MEDS: DOCUSATE SODIUM 100 MG CAP PO SCH (20:59)
[2019-09-20] MEDS: carvediloL 3.125 MG TAB PO SCH (20:59)
[2019-09-20] MEDS: ATORVASTATIN 10 MG TAB PO SCH (21:00)
[2019-09-20] MEDS: NEPHROCAPS PO SCH (21:00)
[2019-09-21] MEDS: LEVOTHYROXINE SODIUM 88 MCG TABLET PO SCH (06:29)
[2019-09-21] MEDS: PANTOprazole 40 MG TAB PO SCH (06:29)
[2019-09-21] MEDS: ISOSORBIDE DINITRATE 10 MG TAB PO SCH ×3 (06:57→16:46)
[2019-09-21 07:11] LABS: Hematocrit (blood only) 28.5 % (37-47); Hemoglobin 9.3 g/dL (12.0-16.0); Mean Corpuscular Hemoglobin 34.2 pg (25-34); Mean Corpuscular Hgb Conc 32.6 g/dL (32-36); Mean Corpuscular Volume 104.8 fL (80-100); RDW Coefficient of Variation 14.6 % (11.5-14.5); RDW Standard Deviation 55.7 fL (36.4-46.3); Red Blood Count 2.72 M/uL (4.2-5.4); White Blood Count 6.22 K/uL (4.8-10.8)
[2019-09-21 07:20] LABS: INR 2.2 (0.9-1.1); Prothrombin Time 21.4 Seconds (9.0-12.0)
[2019-09-21 07:39] LABS: Basophils # (auto) 0.01 K/uL (0-0.2); Basophils % (auto) 0.2 %; Eosinophils # (auto) 0.27 K/uL (0-0.5); Eosinophils % (auto) 4.3 %; Immature Granulocytes # (auto) 0.01 K/uL (0.00-0.02); Immature Granulocytes % (auto) 0.2 %; Lymphocytes # (auto) 1.48 K/uL (1.2-3.4); Lymphocytes % (auto) 23.8 %; Mean Platelet Volume 11.4 fL (7.4-10.4); Monocytes # (auto) 0.27 K/uL (0.11-0.59); Monocytes % (auto) 4.3 %; Neutrophils # (auto) 4.18 K/uL (1.4-6.5); Neutrophils % (auto) 67.2 %; Platelet Count 99 K/uL (130-400); Platelet Estimate Decreased (Normal)
[2019-09-21 07:47] LABS: Albumin Level 3.2 gm/dl (3.4-5.0); BUN Creatinine Ratio 22.3 (10-20); Calcium 8.6 mg/dl (8.5-10.1); Creatinine Clr Calc Pharmacy 11.9 ml/min; Est GFR (African American) 20.8; Potassium 4.7 mmol/L (3.5-5.1)
[2019-09-21 07:49] LABS: Bilirubin,Total 0.5 mg/dl (0.2-1); Globulin 3.3 gm/dl (2.5-4.0); Total Protein 6.5 gm/dl (6.4-8.2)
[2019-09-21] MEDS: FAMOTIDINE 20 MG TAB PO SCH (09:19)
[2019-09-21] MEDS: ACETAMINOPHEN 325 MG TAB PO PRN (09:19)
[2019-09-21] MEDS: CHOLECALCIFEROL 1,000 UNITS 25 MCG TAB PO SCH (09:20)
[2019-09-21] MEDS: ASPIRIN 81 MG ECTAB PO SCH (09:20)
[2019-09-21] MEDS: AMLODIPINE BESYLATE 5 MG TAB PO SCH ×2 (09:20→09:29)
[2019-09-21] MEDS: FUROSEMIDE 40 MG TAB PO SCH ×2 (09:20→10:44)
[2019-09-21] MEDS: DOCUSATE SODIUM 100 MG CAP PO SCH ×2 (09:21→20:27)
[2019-09-21] MEDS: NEPHROCAPS PO SCH ×2 (09:21→20:30)
[2019-09-21] MEDS: carvediloL 3.125 MG TAB PO SCH ×3 (09:21→20:28)
[2019-09-21] MEDS: ESCITALOPRAM OXALATE 20 MG TAB PO SCH (09:22)
--- NOTE | 2019-09-21 09:58 | Hospitalist Progress Note ---
Date of Service September 21, 2019 Assessment & Plan (1) Ambulatory dysfunction: (2) Fall: (3) Closed sacral fracture: This is an 88-year-old female with significant PMH of CAD, HTN, HLD, paroxysmal A. 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 Attending discussed case with ED provider in which there was questionable syncopal component to patients fall; however patient currently denies. States fall was unwitnessed. Denies presyncopal symptoms. In ED pt remained hemodynamically stable, but hypertensive BP 174/47. Imaging reveals concern for possible acute S3 fracture. Hip Xray reveals intact L VELMA and severe OADJD of R hip. H/H stable at 10.1 and 30.0, wbc 6.74k, bun 44 and cr 2.02. Received IV Zofran and morphine while in ED. Hospital Day 2 remains on tele - NSR 50-60s CT pelvis confirms S3 fracture Ortho spine consulted - Dr. Booth, appreciate his input PT/OT consulted pain control bowel regimen (4) CAD (coronary artery disease): Denies chest pain or shortness of breath Continue ASA, statin, Imdur, Coreg, warfarin Not on KAEL or arb likely in setting of renal disease (5) HTN (hypertension): Blood pressure elevated likely in setting of pain Continue amlodipine, Coreg, Imdur (6) PAF (paroxysmal atrial fibrillation): Rate and rhythm controlled on coreg Warfarin for anticoagulation INR 2.2 today, resume home regimen repeat INR in a.m. Home regimen (3mg MWF and 1.5mg all other days) (7) CHF (congestive heart failure): History of CHF, diastolic Last echocardiogram 04/2019 revealed EF 55 to 60%, aortic valve sclerosis On Lasix 40 mg Thursday, Continue Imdur (8) CKD (chronic kidney disease), stage IV: acute on chronic CKD stage 4 BUN/creatinine 52 and 2.34 today Baseline creatinine 1.8-2.0 hold lasix, give cautious IVF 60cc/hr 1 L Monitor BMP (9) HLD (hyperlipidemia): Continue statin (10) Anemia, chronic disease: H&H stable at 9.3 and 28.5, was 10.1 on admission monitor On Epogen every [address] Rodriguez (11) Hypothyroidism: Continue levothyroxine (12) Depression with anxiety: Continue Lexapro, as needed lorazepam Continue BuSpar (13) DVT prophylaxis: continue warfarin Home regimen 3 mg Thursday, 1.5 mg all other days INR 2.2 today Disposition. Admit to telemetry, case management consulted as she may require inpatient rehab given fall, ambulatory dysfunction and possible sacral fx Follow up: PCP Dr. Quevedo upon discharge Pt was seen and examined in collaboration with Dr. Bonds, please see addendum Admission and Anticipated Discharge Date Admission Date: September 20, 2019 Supervising Physician Co-Signing Physician Notes Attending Addendum: care coordinated with REHANA Garcia please refer to her notes for full details, I agree with her notes patient seen and examined, records reviewed by myself as well on exam, patient seen resting in chair, not in distress next, States back pain is improving today Denies leg numbness, pain no other symptoms VS noted and reviewed oriented x 3, not in distress, speaks in sentences with no effort nor accessory muscle use normal rate, regular rhythm, no murmurs clear breath sounds bilaterally non distended, soft, nontender -No erythema, tenderness, warmth, hematoma no bipedal edema, erythema, warmth no neuro deficits WBC 6.2 Hg 9.3 Crea 2.34 ASSESSMENT AND PLAN S3 fracture Orthospine consulted, conservative management recommended at this point Continue pain control, PT OT, may need rehab or shelter facility History of CAD No cardiac symptoms continue medications Elevated creatinine, CKD stage IV Gentle IV fluids, monitor creatinine, hold Lasix Paroxysmal A. fib Continue Coumadin other diagnoses and plan of care as per REHANA Gracia's notes Abimael Bonds MD Subjective Patient seen and examined in room 284-2. Follow up Fall with S3 fracture. Pt is sitting up in bed. Denies any pain at this time, but hasn't been out of bed since admission. Denies f/c/s, chest pain, sob, n/v/d, abdominal pain. She thinks she moved her bowels. Is upset because she just wants to go home to her, "doggie." Appetite is okay states she ate rice krispies for breakfast. Review of Systems Review of Systems: All systems reviewed & are unremarkable except as noted in HPI & below Physical Exam Physical Exam: Gen: Thin, petite, elderly, F, NAD, A&O to basics only HEENT: Normocephalic, atraumatic, conjunctivae moist, sclerae anicteric, mucous membranes moist. Lung: Clear to Auscultation bilaterally, no wheezes/rales/rhonchi Heart: Regular rate, regular rhythm, no murmurs, rubs, or gallops Abdomen: Soft, NT, ND +BS x 4 Extremities: No edema Skin: Warm, no rash, negative turgor. : +miller in place with leg bag on L leg Results & Data ([facility]) Vital Signs (Past 12 Hours) Vital Signs Temp Pulse Pulse Resp BP Pulse Ox 09/21/19 08:27 53 L 09/21/19 08:22 36.6 C 69 18 123/44 L 91 09/21/19 07:53 36.6 C 69 18 123/44 L 91 09/21/19 04:45 59 L 09/21/19 03:14 36.7 C 62 19 129/41 L 91 09/20/19 22:54 36.9 C 65 19 101/47 L 90 Laboratory Results Short CBC 09/20/19 09/21/19 Range/Units 12:04 06:59 WBC 6.74 6.22 (4.8-10.8) K/uL Hgb 10.1 L 9.3 L (12.0-16.0) g/dL Hct 30.0 L 28.5 L (37-47) % Plt Count 142 99 L (130-400) K/uL BMP 09/20/19 09/21/19 12:04 06:59 Sodium 140 139 Potassium 4.3 4.7 Chloride 111 H 111 H Carbon Dioxide 23 24 BUN 44 H 52 H Creatinine 2.02 H 2.34 H D Glucose 80 82 Calcium 9.0 8.6 Cardiac Enzymes 09/20/19 Range/Units 12:04 Troponin I 0.045 (0-0.045) ng/ml Liver Function 09/20/19 09/21/19 Range/Units 12:04 06:59 Total Bilirubin 0.4 0.5 (0.2-1) mg/dl AST 47 H 31 (15-37) U/L ALT 61 49 (12-78) U/L Alkaline Phosphatase 92 73 (45-117) U/L Albumin 3.7 3.2 L (3.4-5.0) gm/dl Diagnostic Findings CT pelvis: IMPRESSION: 1. Confirmation of the subtle acute versus subacute fracture involving the anterior cortex of the S3 segment, new from 08/09/2019. 2. Demineralized appearance of the bones with degenerative changes as above. No definite additional acute fracture or subluxation identified. 3. Mild presacral edema may be reactive. Medications Administered Acetaminophen (Tylenol) 650 mg PO Q4H PRN PRN Reason: pain/fever Stop: 10/20/19 16:59 Last Admin: 09/21/19 09:19 Dose: 650 mg Documented by: [id number] Cosigned by: [id number] Admin: 09/20/19 17:59 Dose: 650 mg Documented by: [id number] Amlodipine Besylate (Norvasc) 2.5 mg PO DAILY [facility] Stop: 10/21/19 08:59 Last Admin: 09/21/19 09:29 Dose: Not Given Documented by: [id number] Aspirin (Ecotrin Ectab) 81 mg PO QAM [facility] Stop: 10/21/19 08:59 Last Admin: 09/21/19 09:20 Dose: 81 mg Documented by: [id number] Cosigned by: [id number] Atorvastatin Calcium (Lipitor) 10 mg PO PM [facility] Stop: 10/20/19 20:59 Last Admin: 09/20/19 21:00 Dose: 10 mg Documented by: [id number] Buspirone HCl (Buspar) 5 mg PO BID [facility] Stop: 10/20/19 20:59 Last Admin: 09/21/19 09:21 Dose: 5 mg Documented by: [id number] Cosigned by: [id number] Admin: 09/20/19 20:58 Dose: 5 mg Documented by: [id number] Carvedilol (Coreg) 3.125 mg PO BID [facility] Stop: 10/20/19 20:59 Last Admin: 09/21/19 09:29 Dose: Not Given Documented by: [id number] Admin: 09/20/19 20:59 Dose: 3.125 mg Documented by: [id number] Docusate Sodium (Colace) 100 mg PO BID [facility] Stop: 10/20/19 20:59 Last Admin: 09/21/19 09:21 Dose: 100 mg Documented by: [id number] Cosigned by: [id number] Admin: 09/20/19 20:59 Dose: 100 mg Documented by: [id number] Escitalopram Oxalate (Lexapro Tab) 20 mg PO DAILY [facility] Stop: 10/21/19 08:59 Last Admin: 09/21/19 09:22 Dose: 20 mg Documented by: [id number] Cosigned by: [id number] Famotidine (Pepcid) 20 mg PO DAILY [facility] Stop: 10/21/19 08:59 Last Admin: 09/21/19 09:19 Dose: 20 mg Documented by: [id number] Cosigned by: [id number] Isosorbide Dinitrate (Isordil) 10 mg PO 0700,1200,1700 [facility] Stop: 10/20/19 17:29 Last Admin: 09/21/19 06:57 Dose: 10 mg Documented by: [id number] Admin: 09/20/19 18:00 Dose: 10 mg Documented by: [id number] Levothyroxine Sodium (Synthroid) 88 mcg PO DAILYBB [facility] Stop: 10/21/19 06:29 Last Admin: 09/21/19 06:29 Dose: 88 mcg Documented by: [id number] Pantoprazole Sodium (Protonix) 40 mg PO DAILYBB [facility] Stop: 10/21/19 06:29 Last Admin: 09/21/19 06:29 Dose: 40 mg Documented by: [id number] Vitamin B Complex/Folic Acid (Nephrocaps) 1 cap PO BID [facility] Stop: 10/20/19 20:59 Last Admin: 09/21/19 09:21 Dose: 1 cap Documented by: [id number] Cosigned by: [id number] Admin: 09/20/19 21:00 Dose: 1 cap Documented by: [id number] Vitamin D (Vitamin D3) 1,000 units PO QAM [facility] Stop: 10/21/19 08:59 Last Admin: 09/21/19 09:20 Dose: 1,000 units Documented by: [id number] Cosigned by: [id number] Discontinued Medications Morphine Sulfate (Morphine Sulfate) 2 mg IV NOW STA Stop: 09/20/19 14:43 Last Admin: 09/20/19 14:46 Dose: 2 mg Documented by: [id number] Ondansetron HCl (Zofran) 4 mg IV NOW STA Stop: 09/20/19 14:43 Last Admin: 09/20/19 14:46 Dose: 4 mg Documented by: [id number] Warfarin Sodium (Coumadin) 2 mg PO ONE ONE Stop: 09/20/19 17:31 Last Admin: 09/20/19 17:59 Dose: 2 mg Documented by: [id number] Warfarin Sodium (Coumadin) 2.5 mg PO ONE ONE Stop: 09/20/19 17:31 Last Admin: 09/20/19 18:00 Dose: 2.5 mg Documented by: [id number] (1) Closed sacral fracture Encounter type: initial encounter Zone of sacrum fracture: unspecified portion of sacrum Qualified Code(s): S32.10XA - Unspecified fracture of sacrum, initial encounter for closed fracture
[2019-09-21] MEDS ORDERED: SODIUM CHLORIDE 0.9% 1000ML 1,000 ML IV SCH (10:15)
--- NOTE | 2019-09-21 10:44 | Orthopedic Consultation ---
Date of Consultation September 21, 2019 Assessment & Plan (1) Closed sacral fracture: This time she does have pain in the sacral region consistent with an acute fracture. This is a stable type fracture which really does not any direct treatment. She can weight-bear as tolerated I would recommend using a wheeled walker given her history of falls. She may work with physical therapy. Continue with pain control and GI DVT prophylaxis per medicine. If there are any questions or concerns please contact our service. History of Present Illness Attending Physician: Abimael Bonds MD History of Present Illness Patient is an 88-year-old female whom we are consulted for sacral fracture. Apparently yesterday she had been in her kitchen was going to put dishes into the sink. She rested a plate on her stove when she went to move forward towards that motion she fell backwards. She does not recall whether or not she struck her head. She complains of pain in the lower portion the back and tailbone region as well as the anterior thighs. She is not having any radicular complaints. She does state that she uses a walker but the walker was not with her at the time at least not in reach. She denies any other numbness, tingling, or paresthesias. Allergies Allergy/AdvReac Type Severity Reaction Status Date / Time Penicillins Allergy Intermediate HIVES Verified 09/20/19 12:15 iron AdvReac Mild n&v, abd Verified 09/20/19 12:15 pain Venofer AdvReac Mild n&v, abd Verified 02/28/18 08:54 pain Home Medications Home Medications Medication Instructions Recorded Confirmed Type levothyroxine 88 mcg PO DAILYBB 08/16/18 09/20/19 History ranitidine HCl 150 mg PO BID 08/16/18 09/20/19 History atorvastatin 10 mg PO PM 12/10/18 09/20/19 History cholecalciferol (vitamin D3) 1,000 unit PO QAM 12/10/18 09/20/19 History docusate sodium 100 mg PO BID 12/10/18 09/20/19 History acetaminophen 650 mg PO Q6H PRN MDD 2g/24hr 02/08/19 09/20/19 History aspirin 81 mg PO QAM 02/08/19 09/20/19 History isosorbide dinitrate 10 mg PO TID 02/08/19 09/20/19 History buspirone 5 mg PO BID 03/31/19 09/20/19 History cetirizine 10 mg PO QAM PRN 03/31/19 09/20/19 History nitroglycerin 0.3 mg SUBLINGUAL DIRECTED PRN 03/31/19 09/20/19 History triamcinolone acetonide 1 applic TOPICAL BID PRN 03/31/19 09/20/19 History amlodipine 2.5 mg PO DAILY 05/08/19 09/20/19 History lorazepam 0.5 mg PO HS PRN 05/08/19 09/20/19 History epoetin lalita [Procrit] 10,000 unit SUBCUT .[id number] 06/02/19 09/20/19 History escitalopram oxalate [Lexapro] 20 mg PO DAILY 06/02/19 09/20/19 History hydroxyzine HCl 5 mg PO Q6H PRN 06/02/19 09/20/19 History nut.tx.imp.renal fxn,lac-reduc 1 ea PO BID 06/02/19 09/20/19 History [Nepro Carb Steady] polyethylene glycol 3350 [Miralax] 17 g PO DAILY PRN 06/02/19 09/20/19 History furosemide 40 mg PO MOWEFR 08/09/19 09/20/19 History carvedilol 3.125 mg PO BID 09/20/19 09/20/19 History pantoprazole 40 mg PO DAILYBB 09/20/19 09/20/19 History warfarin 1.5 mg PO SUTUTHSA 09/20/19 09/20/19 History warfarin 3 mg PO MOWEFR 09/20/19 09/20/19 History Patient History Medical History Anemia (Acute) Anxiety (Chronic) Chronic indwelling Villegas catheter CKD (chronic kidney disease), stage IV (Chronic) FRANCES (generalized anxiety disorder) (Chronic) GERD (gastroesophageal reflux disease) (Chronic) H/O echocardiogram (Chronic) "03/2015 - EF 60-65%, moderate to severe aortic regurgitation" HLD (hyperlipidemia) (Chronic) HTN (hypertension) (Chronic) Hypothyroidism (Chronic) Major depressive disorder, recurrent, 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) Surgical History Hx of appendectomy (Chronic) Hx of cholecystectomy (Chronic) Hx of dilation and curettage (Chronic) Status post total hip replacement, left (Chronic) Family History Other Hypertension Social History Preferred Language: [place] Communication Ability: Effective 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 She has some hyperesthesias in both legs but no calf tenderness. Her abdomen soft nontender. She has mild tenderness in the lower portion of the lumbar spine and sacral region diffusely. Her strength is 5 out of 5 to detailed muscle testing both lower extremities. Her gait was not observed. Results & Data ([facility]) Vital Signs (Past 12 Hours) Vital Signs Temp Pulse Pulse Resp BP Pulse Ox 09/21/19 08:27 53 L 09/21/19 08:22 36.6 C 69 18 123/44 L 91 09/21/19 07:53 36.6 C 69 18 123/44 L 91 09/21/19 04:45 59 L 09/21/19 03:14 36.7 C 62 19 129/41 L 91 09/20/19 22:54 36.9 C 65 19 101/[address] scan of the abdomen pelvis was reviewed. There is a small anterior cortical buckle of the S3 vertebral body. There is no displacement or significant angulation. She has multilevel degenerative changes in the lower portion of the lumbar spine but no fractures. (1) Closed sacral fracture Encounter type: initial encounter Zone of sacrum fracture: unspecified portion of sacrum Qualified Code(s): S32.10XA - Unspecified fracture of sacrum, initial encounter for closed fracture
[2019-09-21] MEDS: LIDOCAINE 5% 1 PATCH TD SCH (12:47)
[2019-09-21] MEDS ORDERED: WARFARIN SOD 3 MG TAB PO SCH ×2 (16:00)
[2019-09-21] MEDS: ATORVASTATIN 10 MG TAB PO SCH (20:29)
[2019-09-22] MEDS: ISOSORBIDE DINITRATE 10 MG TAB PO SCH ×3 (05:46→16:38)
[2019-09-22] MEDS: LEVOTHYROXINE SODIUM 88 MCG TABLET PO SCH (05:46)
[2019-09-22] MEDS: PANTOprazole 40 MG TAB PO SCH (05:46)
[2019-09-22] MEDS: ASPIRIN 81 MG ECTAB PO SCH (07:48)
[2019-09-22] MEDS: LIDOCAINE 5% 1 PATCH TD SCH (07:48)
[2019-09-22] MEDS: FAMOTIDINE 20 MG TAB PO SCH (07:48)
[2019-09-22] MEDS: CHOLECALCIFEROL 1,000 UNITS 25 MCG TAB PO SCH (07:48)
[2019-09-22] MEDS: AMLODIPINE BESYLATE 5 MG TAB PO SCH (07:48)
[2019-09-22] MEDS: ESCITALOPRAM OXALATE 20 MG TAB PO SCH (07:48)
[2019-09-22] MEDS: carvediloL 3.125 MG TAB PO SCH ×2 (07:49→21:24)
[2019-09-22] MEDS: DOCUSATE SODIUM 100 MG CAP PO SCH ×2 (07:49→21:23)
[2019-09-22] MEDS: NEPHROCAPS PO SCH ×2 (07:49→21:25)
[2019-09-22 08:54] LABS: Prothrombin Time 38.2 Seconds (9.0-12.0)
[2019-09-22 08:56] LABS: INR 4.1 (0.9-1.1)
[2019-09-22 09:04] LABS: BUN Creatinine Ratio 26.2 (10-20); Calcium 8.6 mg/dl (8.5-10.1); Creatinine Clr Calc Pharmacy 13.2 ml/min; Est GFR (African American) 23.6; Est GFR (Non-African American) 20.4; Potassium 4.6 mmol/L (3.5-5.1)
--- NOTE | 2019-09-22 10:12 | Hospitalist Progress Note ---
Date of Service September 22, 2019 Assessment & Plan (1) Ambulatory dysfunction: (2) Fall: (3) Closed sacral fracture: This is an 88-year-old female with significant PMH of CAD, HTN, HLD, paroxysmal A. 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 Hospital Day 3 remains on tele - NSR 50-60s CT pelvis confirms S3 fracture Ortho spine consulted - Dr. Booth, appreciate his input -conservative management at this time PT/OT consulted recommendation is for skilled rehab pain control bowel regimen (4) Supratherapeutic INR: INR 4.1 today Hold warfarin No signs or symptoms of bleeding Repeat INR in a.m. (5) CAD (coronary artery disease): Denies chest pain or shortness of breath Continue ASA, statin, Imdur, Coreg, warfarin as outpt Not on KAEL or arb likely in setting of renal disease (6) HTN (hypertension): Blood pressure controlled 119/62 Continue amlodipine, Coreg, Imdur Lasix on hold (7) PAF (paroxysmal atrial fibrillation): Rate and rhythm controlled on coreg Warfarin for anticoagulation INR 4.1 today, hold warfarin repeat INR in a.m. Home regimen (3mg MWF and 1.5mg all other days) (8) CHF (congestive heart failure): History of CHF, diastolic Last echocardiogram 04/2019 revealed EF 55 to 60%, aortic valve sclerosis On Lasix 40 mg Thursday, -currently on hold given mild elevation renal function Continue Imdur (9) CKD (chronic kidney disease), stage IV: acute on chronic CKD stage 4 BUN/creatinine 55 and 2.11 today Baseline creatinine 1.8-2.0 continue to hold lasix, received 1L IVF yesterday Monitor BMP (10) HLD (hyperlipidemia): Continue statin (11) Anemia, chronic disease: H&H stable at 9.3 and 28.5, was 10.1 on admission monitor On Epogen every [address] Rodriguez (12) Hypothyroidism: Continue levothyroxine (13) Depression with anxiety: Continue Lexapro, as needed lorazepam Continue BuSpar (14) DVT prophylaxis: Hold warfarin Home regimen 3 mg Thursday, 1.5 mg all other days INR 4.1 today Disposition. Admit to telemetry, PT/OT recommending Rehab ([facility] has a bed available tomorrow), but pt declining. Will be re eval this afternoon when Daughter available. If continues to refuse would recommend remaining inpt given elevated INR and pt being fall risk if returning home Follow up: PCP Dr. Quevedo upon discharge Pt was seen and examined in collaboration with Dr. Bonds, please see addendum Admission and Anticipated Discharge Date Admission Date: September 21, 2019 Supervising Physician Co-Signing Physician Notes Attending Addendum: Delayed entry date of service as noted above care coordinated with REHANA Garcia. please refer to her notes for full details, I agree with her notes patient seen and examined, records reviewed by myself as well on exam, patient seen resting in bed, initially anxious because she is alone, reassured, patient was calmer reports moderate back pain, worse with movement, legs feel stiff no other symptoms VS noted and reviewed oriented x 3, not in distress, speaks in sentences with no effort nor accessory muscle use normal rate, regular rhythm, no murmurs clear breath sounds bilaterally non distended, soft, nontender no bipedal edema, erythema, warmth no neuro deficits WBC 6.2 Hg 9.3 Crea 2.1 INR 4.1 ASSESSMENT AND PLAN S3 Fracture continue pain management, PT/OT awaiting decision to transition to SNF Acute Kidney Injury on CKD 4 given IV NSS, Lasix on hold crea improved to 2.1 continue to monitor Elevated INR hold coumadin will need to change coumadin 3mg to twice a week other diagnoses and plan of care as per REHANA Bonds MD Subjective Patient seen and examined in room 284-2. Follow up Fall with S3 fracture. Pt is sitting up in bed eating breakfast. Complains of bilateral knee pain. Currently denies any sacral pain. Does not remember if she had therapy yesterday or if she has been out of bed. Denies f/c/s, chest pain, sob, n/v/d, abdominal pain. Offers no further acute complaints. Review of Systems Review of Systems: All systems reviewed & are unremarkable except as noted in HPI & below Physical Exam Physical Exam: Gen: Thin, petite, elderly, F, NAD, A&O to basics only HEENT: Normocephalic, atraumatic, conjunctivae moist, sclerae anicteric, mucous membranes moist. Lung: Clear to Auscultation bilaterally, no wheezes/rales/rhonchi Heart: Regular rate, regular rhythm, no murmurs, rubs, or gallops Abdomen: Soft, NT, ND +BS x 4 Extremities: No edema Skin: Warm, no rash, negative turgor. : +miller in place with leg bag on L leg Results & Data ([facility]) Vital Signs (Past 12 Hours) Vital Signs Temp Pulse Resp BP Pulse Ox 09/22/19 07:31 36.7 C 78 18 146/48 H 90 09/22/19 03:14 36.7 C 78 18 165/68 H 91 09/22/19 00:28 36.7 C 65 18 148/51 H 93 Laboratory Results BMP 09/22/19 08:24 Sodium 139 Potassium 4.6 Chloride 110 H Carbon Dioxide 23 BUN 55 H Creatinine 2.11 H Glucose 95 Calcium 8.6 Medications Administered Acetaminophen (Tylenol) 650 mg PO Q4H PRN PRN Reason: pain/fever Stop: 10/20/19 16:59 Last Admin: 09/21/19 09:19 Dose: 650 mg Documented by: [id number] Cosigned by: [id number] Admin: 09/20/19 17:59 Dose: 650 mg Documented by: [id number] Acetaminophen/Codeine Phosphate (Tylenol W/Codeine #3) 1 tab PO Q4H PRN PRN Reason: moderate pain Stop: 10/20/19 16:59 Last Admin: 09/22/19 09:48 Dose: 1 tab Documented by: [id number] Amlodipine Besylate (Norvasc) 2.5 mg PO DAILY [facility] Stop: 10/21/19 08:59 Last Admin: 09/22/19 07:48 Dose: 2.5 mg Documented by: [id number] Admin: 09/21/19 09:29 Dose: Not Given Documented by: [id number] Aspirin (Ecotrin Ectab) 81 mg PO QAM [facility] Stop: 10/21/19 08:59 Last Admin: 09/22/19 07:48 Dose: 81 mg Documented by: [id number] Admin: 09/21/19 09:20 Dose: 81 mg Documented by: [id number] Cosigned by: [id number] Atorvastatin Calcium (Lipitor) 10 mg PO PM [facility] Stop: 10/20/19 20:59 Last Admin: 09/21/19 20:29 Dose: 10 mg Documented by: [id number] Admin: 09/20/19 21:00 Dose: 10 mg Documented by: [id number] Buspirone HCl (Buspar) 5 mg PO BID [facility] Stop: 10/20/19 20:59 Last Admin: 09/22/19 07:48 Dose: 5 mg Documented by: [id number] Admin: 09/21/19 20:28 Dose: 5 mg Documented by: [id number] Admin: 09/21/19 09:21 Dose: 5 mg Documented by: [id number] Cosigned by: [id number] Admin: 09/20/19 20:58 Dose: 5 mg Documented by: [id number] Carvedilol (Coreg) 3.125 mg PO BID [facility] Stop: 10/20/19 20:59 Last Admin: 09/22/19 07:49 Dose: 3.125 mg Documented by: [id number] Admin: 09/21/19 20:28 Dose: Not Given Documented by: [id number] Admin: 09/21/19 09:29 Dose: Not Given Documented by: [id number] Admin: 09/20/19 20:59 Dose: 3.125 mg Documented by: [id number] Docusate Sodium (Colace) 100 mg PO BID [facility] Stop: 10/20/19 20:59 Last Admin: 09/22/19 07:49 Dose: 100 mg Documented by: [id number] Admin: 09/21/19 20:27 Dose: 100 mg Documented by: [id number] Admin: 09/21/19 09:21 Dose: 100 mg Documented by: [id number] Cosigned by: [id number] Admin: 09/20/19 20:59 Dose: 100 mg Documented by: [id number] Escitalopram Oxalate (Lexapro Tab) 20 mg PO DAILY [facility] Stop: 10/21/19 08:59 Last Admin: 09/22/19 07:48 Dose: 20 mg Documented by: [id number] Admin: 09/21/19 09:22 Dose: 20 mg Documented by: [id number] Cosigned by: [id number] Famotidine (Pepcid) 20 mg PO DAILY [facility] Stop: 10/21/19 08:59 Last Admin: 09/22/19 07:48 Dose: 20 mg Documented by: [id number] Admin: 09/21/19 09:19 Dose: 20 mg Documented by: [id number] Cosigned by: [id number] Furosemide (Lasix) 40 mg PO MoWeFr@0900 [facility] Stop: 10/21/19 08:59 Last Admin: 09/21/19 10:44 Dose: Not Given Documented by: [id number] Isosorbide Dinitrate (Isordil) 10 mg PO 0700,1200,1700 [facility] Stop: 10/20/19 17:29 Last Admin: 09/22/19 12:43 Dose: 10 mg Documented by: [id number] Admin: 09/22/19 05:46 Dose: 10 mg Documented by: [id number] Admin: 09/21/19 16:46 Dose: 10 mg Documented by: [id number] Admin: 09/21/19 12:47 Dose: 10 mg Documented by: [id number] Cosigned by: [id number] Admin: 09/21/19 06:57 Dose: 10 mg Documented by: [id number] Admin: 09/20/19 18:00 Dose: 10 mg Documented by: [id number] [facility]: 10/21/19 06:29 Last Admin: 09/22/19 05:46 Dose: 88 mcg Documented by: [id number] Admin: 09/21/19 06:29 Dose: 88 mcg Documented by: [id number] Lidocaine (Lidoderm 5%) 1 patch TD QAM [facility] Stop: 10/21/19 11:59 Last Admin: 09/22/19 07:48 Dose: 1 patch Documented by: [id number] Admin: 09/21/19 12:47 Dose: 1 patch Documented by: [id number] Cosigned by: [id number] Miscellaneous (Remove Lidoderm Patch) 1 ea N/A DAILY@2100 [facility] Stop: 10/21/19 20:59 Last Admin: 09/21/19 20:30 Dose: Not Given Documented by: [id number] Pantoprazole Sodium (Protonix) 40 mg PO DAILYBB [facility] Stop: 10/21/19 06:29 Last Admin: 09/22/19 05:46 Dose: 40 mg Documented by: [id number] Admin: 09/21/19 06:29 Dose: 40 mg Documented by: [id number] Vitamin B Complex/Folic Acid (Nephrocaps) 1 cap PO BID [facility] Stop: 10/20/19 20:59 Last Admin: 09/22/19 07:49 Dose: 1 cap Documented by: [id number] Admin: 09/21/19 20:30 Dose: 1 cap Documented by: [id number] Admin: 09/21/19 09:21 Dose: 1 cap Documented by: [id number] Cosigned by: [id number] Admin: 09/20/19 21:00 Dose: 1 cap Documented by: [id number] Vitamin D (Vitamin D3) 1,000 units PO QAM [facility] Stop: 10/21/19 08:59 Last Admin: 09/22/19 07:48 Dose: 1,000 units Documented by: [id number] Admin: 09/21/19 09:20 Dose: 1,000 units Documented by: [id number] Cosigned by: [id number] Discontinued Medications Sodium Chloride (Nss 1000ml) 1,000 mls @ 60 mls/hr IV .[id number] [facility] Stop: 09/22/19 02:54 Last Infusion: 09/22/19 03:27 Dose: 0 mls/hr Documented by: [id number] Admin: 09/21/19 10:15 Dose: 60 mls/hr Documented by: [id number] Morphine Sulfate (Morphine Sulfate) 2 mg IV NOW STA Stop: 09/20/19 14:43 Last Admin: 09/20/19 14:46 Dose: 2 mg Documented by: [id number] Ondansetron HCl (Zofran) 4 mg IV NOW STA Stop: 09/20/19 14:43 Last Admin: 09/20/19 14:46 Dose: 4 mg Documented by: [id number] Warfarin Sodium (Coumadin) 2 mg PO ONE ONE Stop: 09/20/19 17:31 Last Admin: 09/20/19 17:59 Dose: 2 mg Documented by: [id number] Warfarin Sodium (Coumadin) 2.5 mg PO ONE ONE Stop: 09/20/19 17:31 Last Admin: 09/20/19 18:00 Dose: 2.5 mg Documented by: [id number] Warfarin Sodium (Coumadin) 3 mg PO MoWeFr@1600 [facility] Stop: 10/21/19 15:59 Last Admin: 09/21/19 16:45 Dose: 3 mg Documented by: [id number] (1) Closed sacral fracture Encounter type: initial encounter Zone of sacrum fracture: unspecified portion of sacrum Qualified Code(s): S32.10XA - Unspecified fracture of sacrum, initial encounter for closed fracture
[2019-09-22] MEDS ORDERED: WARFARIN SOD 0.5 MG TAB PO SCH (16:00)
[2019-09-22] MEDS ORDERED: WARFARIN SOD 1 MG TAB PO SCH (16:00)
[2019-09-22] MEDS: ATORVASTATIN 10 MG TAB PO SCH (21:25)
[2019-09-23] MEDS: LEVOTHYROXINE SODIUM 88 MCG TABLET PO SCH (05:46)
[2019-09-23] MEDS: PANTOprazole 40 MG TAB PO SCH (05:47)
[2019-09-23] MEDS: ISOSORBIDE DINITRATE 10 MG TAB PO SCH ×3 (05:47→16:51)
[2019-09-23 07:22] LABS: INR 2.3 (0.9-1.1); Prothrombin Time 22.4 Seconds (9.0-12.0)
[2019-09-23] MEDS: LIDOCAINE 5% 1 PATCH TD SCH (07:41)
[2019-09-23] MEDS: FAMOTIDINE 20 MG TAB PO SCH (07:41)
[2019-09-23] MEDS: NEPHROCAPS PO SCH ×2 (07:42→21:38)
[2019-09-23] MEDS: ASPIRIN 81 MG ECTAB PO SCH (07:42)
[2019-09-23] MEDS: CHOLECALCIFEROL 1,000 UNITS 25 MCG TAB PO SCH (07:42)
[2019-09-23] MEDS: AMLODIPINE BESYLATE 5 MG TAB PO SCH (07:42)
[2019-09-23] MEDS: ESCITALOPRAM OXALATE 20 MG TAB PO SCH (07:42)
[2019-09-23] MEDS: carvediloL 3.125 MG TAB PO SCH ×2 (07:42→21:38)
[2019-09-23] MEDS: DOCUSATE SODIUM 100 MG CAP PO SCH ×2 (07:42→21:38)
[2019-09-23] MEDS ORDERED: WARFARIN SOD 3 MG TAB PO SCH (16:00)
--- NOTE | 2019-09-23 18:05 | Hospitalist Progress Note ---
Date of Service September 23, 2019 Assessment & Plan (1) Ambulatory dysfunction: (2) Fall: (3) Closed sacral fracture: This is an 88-year-old female with significant PMH of CAD, HTN, HLD, paroxysmal A. 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 Hospital Day 4 CT pelvis confirms S3 fracture Ortho spine consulted - Dr. Booth, appreciate his input -conservative management at this time PT/OT : skilled rehab continue pain management awaiting acceptance to SNF (4) Supratherapeutic INR: INR 2.3 continue warfarin Repeat INR in a.m. (5) CAD (coronary artery disease): No chest pain or shortness of breath Continue ASA, statin, Imdur, Coreg, warfarin (6) HTN (hypertension): stable overall Continue amlodipine, Coreg, Imdur Lasix on hold (7) PAF (paroxysmal atrial fibrillation): Rate and rhythm controlled on coreg Warfarin for anticoagulation Home regimen (3mg MWF and 1.5mg all other days) (8) CHF (congestive heart failure): History of CHF, diastolic Last echocardiogram 04/2019 revealed EF 55 to 60%, aortic valve sclerosis On Lasix 40 mg Thursday, -currently on hold given mild elevation renal function euvolemic Continue Imdur (9) CKD (chronic kidney disease), stage IV: Acute Kidney Injury acute on chronic CKD stage 4 BUN/creatinine 55 and 2.11 today Baseline creatinine 1.8-2.0 continue to hold lasix, received 1L IVF Monitor BMP (10) HLD (hyperlipidemia): Continue statin (11) Anemia, chronic disease: H&H stable at 9.3 and 28.5, was 10.1 on admission monitor On Epogen every [address] Rodriguez (12) Hypothyroidism: Continue levothyroxine (13) Depression with anxiety: Continue Lexapro, as needed lorazepam Continue BuSpar (14) DVT prophylaxis: continue coumadin awaiting acceptance to SNF Follow up: PCP Dr. Quevedo upon discharge Admission and Anticipated Discharge Date Admission Date: September 21, 2019 Subjective ff up for S3 fracture initially seen having lunch, comfortable, in good spirits re-evaluated in the evening sleeping, when awakened, patient is anxious reassured by me and also by TRAFFIC LAW ATTORNEY not expressing pain ROS difficult to obtain as patient confused has been confused since the evening no other symptoms Review of Systems Review of Systems: All systems reviewed & are unremarkable except as noted in HPI & below Physical Exam Physical Exam: General- oriented x 1, not in distress, speaks in sentences with no effort or accessory muscle use Eyes- anicteric Neck- no JVD Lungs- clear breath sounds bilaterally Heart- normal rate, regular rhythm; no murmurs Abdomen- normal bowel sounds, nondistended, soft, nontender Extremities- no pretibial edema, no calf tenderness Neuro- alert, oriented x 1; no gross focal neurologic deficits Skin- warm & dry Results & Data ([facility]) Vital Signs (Past 12 Hours) Vital Signs Temp Pulse Pulse Resp BP BP Pulse Ox 09/23/19 17:51 67 09/23/19 15:42 37.2 C 71 17 139/57 L 94 09/23/19 11:25 36.3 C L 75 18 109/56 L 94 09/23/19 10:40 84 09/23/19 07:20 37.3 C 78 18 136/52 L 91 Laboratory Results Laboratory Results - last 24 hr 09/23/19 06:28 PT 22.4 H INR 2.3 H (1) Closed sacral fracture Encounter type: initial encounter Zone of sacrum fracture: unspecified portion of sacrum Qualified Code(s): S32.10XA - Unspecified fracture of sacrum, initial encounter for closed fracture
[2019-09-23] MEDS ORDERED: LORazepam 0.5 MG TAB PO PRN (19:18)
[2019-09-23] MEDS ORDERED: HYDROmorphone INJ 0.5 MG/0.5 ML SYR IV STA (19:55)
[2019-09-23] MEDS: ATORVASTATIN 10 MG TAB PO SCH (21:38)
[2019-09-23] MEDS: ACETAMINOPHEN 1,000 MG/100 ML VIAL IV SCH (21:53)
[2019-09-24] MEDS ORDERED: LORATADINE 10 MG TAB PO ONE (03:28)
[2019-09-24] MEDS: ISOSORBIDE DINITRATE 10 MG TAB PO SCH ×3 (06:07→17:15)
[2019-09-24] MEDS: PANTOprazole 40 MG TAB PO SCH (06:08)
[2019-09-24] MEDS: LEVOTHYROXINE SODIUM 88 MCG TABLET PO SCH (06:08)
[2019-09-24 06:40] LABS: Basophils # (auto) 0.02 K/uL (0-0.2); Basophils % (auto) 0.5 %; Eosinophils # (auto) 0.29 K/uL (0-0.5); Eosinophils % (auto) 7.9 %; Hematocrit (blood only) 25.8 % (37-47); Hemoglobin 8.6 g/dL (12.0-16.0); Lymphocytes # (auto) 1.01 K/uL (1.2-3.4); Lymphocytes % (auto) 27.4 %; Mean Corpuscular Hemoglobin 33.7 pg (25-34); Mean Corpuscular Hgb Conc 33.3 g/dL (32-36); Mean Corpuscular Volume 101.2 fL (80-100); Mean Platelet Volume 10.7 fL (7.4-10.4); Monocytes # (auto) 0.33 K/uL (0.11-0.59); Monocytes % (auto) 8.9 %; Neutrophils # (auto) 2.04 K/uL (1.4-6.5); Neutrophils % (auto) 55.3 %; Platelet Count 103 K/uL (130-400); RDW Coefficient of Variation 14.4 % (11.5-14.5); RDW Standard Deviation 53.1 fL (36.4-46.3); Red Blood Count 2.55 M/uL (4.2-5.4); White Blood Count 3.69 K/uL (4.8-10.8)
[2019-09-24 06:52] LABS: INR 1.5 (0.9-1.1); Prothrombin Time 15.3 Seconds (9.0-12.0)
[2019-09-24 07:10] LABS: BUN Creatinine Ratio 36.9 (10-20); Calcium 8.5 mg/dl (8.5-10.1); Creatinine Clr Calc Pharmacy 15.9 ml/min; Est GFR (African American) 29.4; Est GFR (Non-African American) 25.4; Potassium 4.7 mmol/L (3.5-5.1)
[2019-09-24] MEDS: DOCUSATE SODIUM 100 MG CAP PO SCH ×2 (08:24→20:46)
[2019-09-24] MEDS: CHOLECALCIFEROL 1,000 UNITS 25 MCG TAB PO SCH (08:25)
[2019-09-24] MEDS: ASPIRIN 81 MG ECTAB PO SCH (08:25)
[2019-09-24] MEDS: NEPHROCAPS PO SCH ×2 (08:25→20:48)
[2019-09-24] MEDS: FAMOTIDINE 20 MG TAB PO SCH (08:25)
[2019-09-24] MEDS: carvediloL 3.125 MG TAB PO SCH ×2 (08:26→20:47)
[2019-09-24] MEDS: AMLODIPINE BESYLATE 5 MG TAB PO SCH (08:26)
[2019-09-24] MEDS: ESCITALOPRAM OXALATE 20 MG TAB PO SCH (08:26)
[2019-09-24] MEDS: ACETAMINOPHEN 1,000 MG/100 ML VIAL IV SCH ×2 (08:27→20:48)
[2019-09-24] MEDS: LIDOCAINE 5% 1 PATCH TD SCH (08:27)
[2019-09-24] MEDS: WARFARIN SOD 1 MG TAB PO SCH (17:14)
[2019-09-24] MEDS: WARFARIN SOD 0.5 MG TAB PO SCH (17:14)
--- NOTE | 2019-09-24 17:34 | Hospitalist Progress Note ---
Date of Service September 24, 2019 Assessment & Plan (1) Ambulatory dysfunction: (2) Fall: (3) Closed sacral fracture: This is an 88-year-old female with significant PMH of CAD, HTN, HLD, paroxysmal A. 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 CT pelvis confirms S3 fracture Ortho spine consulted - Dr. Booth, appreciate his input -conservative management at this time PT/OT : skilled rehab recommended continue pain management, patient developed generalized pruritus after Dilaudid dose ordered overnight, will DC Dilaudid Continue Tylenol with codeine as needed Ofirmev every 12 hours awaiting acceptance to SNF (4) Supratherapeutic INR: INR 1.5 We will give a total of 3 mg Coumadin today continue warfarin Repeat INR in a.m. (5) CAD (coronary artery disease): No chest pain or shortness of breath Continue ASA, statin, Imdur, Coreg, warfarin (6) HTN (hypertension): stable overall Continue amlodipine, Coreg, Imdur Lasix on hold (7) PAF (paroxysmal atrial fibrillation): Rate and rhythm controlled on coreg Warfarin for anticoagulation Home regimen (3mg MWF and 1.5mg all other days) (8) CHF (congestive heart failure): History of CHF, diastolic Last echocardiogram 04/2019 revealed EF 55 to 60%, aortic valve sclerosis On Lasix 40 mg Thursday, -currently on hold given mild elevation renal function euvolemic Continue Imdur (9) CKD (chronic kidney disease), stage IV: Acute Kidney Injury acute on chronic CKD stage 4 Baseline creatinine 1.8-2.0 continue to hold lasix, received 1L IVF crea 1.7 (10) HLD (hyperlipidemia): Continue statin (11) Anemia, chronic disease: Hemoglobin 8.6 monitor On Epogen every [address] Rodriguez (12) Hypothyroidism: Continue levothyroxine (13) Depression with anxiety: Continue Lexapro, as needed lorazepam Continue [facility] delirium --Discussed with executive staff assistant continue gentle reorientation avoid IV narcotics, benzodiazepenes (14) DVT prophylaxis: continue coumadin awaiting acceptance to SNF Follow up: PCP Dr. Quevedo upon discharge Admission and Anticipated Discharge Date Admission Date: September 21, 2019 Subjective Follow-up for S3 fracture Per executive staff assistant, patient still confused, anxious Improved with reassurance Seen with RN sitting at the bedside, patient was sleeping but easily awakened Mostly confused, anxious Reassured patient Allowed me to examine her Denies back pain today No shortness of breath, chest pain Review of systems difficult to determine due to current mental status Review of Systems Review of Systems: All systems reviewed & are unremarkable except as noted in HPI & below Physical Exam Physical Exam: General- oriented x 1, not in distress, speaks in sentences with no effort or accessory muscle use Eyes- anicteric Neck- no JVD Lungs- clear breath sounds bilaterally, no crackles Heart- normal rate, regular rhythm; no murmurs Abdomen- normal bowel sounds, nondistended, soft, nontender Extremities- no pretibial edema, no calf tenderness Neuro- alert, oriented x 1, confused, anxious; no gross focal neurologic deficits Skin- warm & dry Results & Data ([facility]) Vital Signs (Past 12 Hours) Vital Signs Temp Pulse Pulse Resp BP BP Pulse Ox 09/24/19 16:17 55 L 09/24/19 15:34 36.4 C L 58 L 16 119/48 L 96 09/24/19 12:00 36.5 C 60 18 102/62 97 09/24/19 08:00 36.4 C L 69 18 152/52 H 96 09/24/19 07:14 59 L 09/24/19 06:14 36.6 C 68 20 144/55 H 96 (1) Closed sacral fracture Encounter type: initial encounter Zone of sacrum fracture: unspecified portion of sacrum Qualified Code(s): S32.10XA - Unspecified fracture of sacrum, initial encounter for closed fracture
[2019-09-24] MEDS ORDERED: WARFARIN SOD 1 MG TAB PO STA (17:36)
[2019-09-24] MEDS ORDERED: DiphenhydrAMINE 2%/ZINC 0.1% CREAM 28GM TUBE EXT PRN (19:59)
[2019-09-24] MEDS: ATORVASTATIN 10 MG TAB PO SCH (20:47)
[2019-09-25] MEDS: NEPHROCAPS PO SCH ×2 (09:01→20:36)
[2019-09-25] MEDS: FAMOTIDINE 20 MG TAB PO SCH (09:01)
[2019-09-25] MEDS: DOCUSATE SODIUM 100 MG CAP PO SCH ×2 (09:01→20:35)
[2019-09-25] MEDS: AMLODIPINE BESYLATE 5 MG TAB PO SCH (09:01)
[2019-09-25] MEDS: carvediloL 3.125 MG TAB PO SCH ×2 (09:01→20:35)
[2019-09-25] MEDS: CHOLECALCIFEROL 1,000 UNITS 25 MCG TAB PO SCH (09:01)
[2019-09-25] MEDS: ESCITALOPRAM OXALATE 20 MG TAB PO SCH (09:01)
[2019-09-25] MEDS: ISOSORBIDE DINITRATE 10 MG TAB PO SCH ×3 (09:01→18:09)
[2019-09-25] MEDS: ASPIRIN 81 MG ECTAB PO SCH (09:01)
[2019-09-25] MEDS: LEVOTHYROXINE SODIUM 88 MCG TABLET PO SCH (09:02)
[2019-09-25] MEDS: LIDOCAINE 5% 1 PATCH TD SCH (09:02)
[2019-09-25] MEDS: PANTOprazole 40 MG TAB PO SCH (09:02)
[2019-09-25] MEDS: ACETAMINOPHEN 1,000 MG/100 ML VIAL IV SCH ×2 (09:02→20:36)
[2019-09-25 10:24] LABS: Hematocrit (blood only) 24.8 % (37-47); Hemoglobin 8.2 g/dL (12.0-16.0); Mean Corpuscular Hgb Conc 33.1 g/dL (32-36); Mean Corpuscular Volume 102.9 fL (80-100); RDW Coefficient of Variation 14.5 % (11.5-14.5); RDW Standard Deviation 54.7 fL (36.4-46.3); Red Blood Count 2.41 M/uL (4.2-5.4); White Blood Count 3.34 K/uL (4.8-10.8)
[2019-09-25 10:33] LABS: INR 1.5 (0.9-1.1); Prothrombin Time 15.1 Seconds (9.0-12.0)
[2019-09-25 10:51] LABS: BUN Creatinine Ratio 39.3 (10-20); Calcium 8.3 mg/dl (8.5-10.1); Creatinine Clr Calc Pharmacy 16.1 ml/min; Est GFR (Non-African American) 25.9; Potassium 4.8 mmol/L (3.5-5.1)
[2019-09-25 11:06] LABS: Basophils # (auto) 0.02 K/uL (0-0.2); Basophils % (auto) 0.6 %; Eosinophils # (auto) 0.17 K/uL (0-0.5); Eosinophils % (auto) 5.1 %; Lymphocytes # (auto) 0.91 K/uL (1.2-3.4); Lymphocytes % (auto) 27.2 %; Mean Platelet Volume 10.3 fL (7.4-10.4); Neutrophils # (auto) 1.84 K/uL (1.4-6.5); Neutrophils % (auto) 55.1 %; Platelet Count 98 K/uL (130-400); Platelet Estimate Decreased (Normal)
[2019-09-25] MEDS ORDERED: WARFARIN SOD 2 MG TAB PO STA (17:17)
--- NOTE | 2019-09-25 17:20 | Hospitalist Progress Note ---
Date of Service September 25, 2019 Assessment & Plan (1) Ambulatory dysfunction: (2) Fall: (3) Closed sacral fracture: This is an 88-year-old female with significant PMH of CAD, HTN, HLD, paroxysmal A. 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 CT pelvis confirms S3 fracture Ortho spine consulted - Dr. Booth, appreciate his input -conservative management at this time PT/OT : skilled rehab recommended pain well controlled, continue pain management Continue Tylenol with codeine as needed Ofirmev every 12 hours awaiting acceptance to SNF (4) Supratherapeutic INR: INR 1.5 again give additional coumadin today, 2mg continue warfarin Repeat INR in a.m. (5) CAD (coronary artery disease): No chest pain or shortness of breath Continue ASA, statin, Imdur, Coreg, warfarin (6) HTN (hypertension): Lisinopril added Continue amlodipine, Coreg, Imdur resume Lasix tomorrow (7) PAF (paroxysmal atrial fibrillation): Rate and rhythm controlled on coreg Warfarin for anticoagulation Home regimen (3mg MWF and 1.5mg all other days) (8) CHF (congestive heart failure): History of CHF, diastolic Last echocardiogram 04/2019 revealed EF 55 to 60%, aortic valve sclerosis On Lasix 40 mg Thursday, held for elevated crea euvolemic Continue Imdur -- resume Lasix tomorrow (9) CKD (chronic kidney disease), stage IV: Acute Kidney Injury acute on chronic CKD stage 4 Baseline creatinine 1.8-2.0 held Lasix, received 1L IVF crea 1.7 resume Lasix tomorrow (10) HLD (hyperlipidemia): Continue statin (11) Anemia, chronic disease: Hemoglobin 8.6 monitor On Epogen every [address] Rodriguez (12) Hypothyroidism: Continue levothyroxine (13) Depression with anxiety: Continue Lexapro, as needed lorazepam Continue BuSpar patient remains anxious, improved compared to yesterday Hospital delirium --Discussed with staff training and development manager continue gentle reorientation avoid IV narcotics, benzodiazepenes (14) DVT prophylaxis: continue coumadin awaiting acceptance to SNF Follow up: PCP Dr. Quevedo upon discharge Admission and Anticipated Discharge Date Admission Date: September 21, 2019 Subjective ff up for S3 fracture seen sitting up in bed, awake, alert more conversant than yesterday still has some confusion- anxious that she has "sores in her legs" patient reassured states back is "not too bad" no chest pain, dyspnea, headache, dizziness no other symptoms Review of Systems Review of Systems: All systems reviewed & are unremarkable except as noted in HPI & below Physical Exam Physical Exam: General- oriented x 1, not in distress, speaks in sentences with no effort or accessory muscle use Eyes- anicteric Neck- no JVD Lungs- clear BS BL Heart- normal rate, regular rhythm; no murmurs Abdomen- normal bowel sounds, nondistended, soft, nontender Extremities- no pretibial edema, no calf tenderness Neuro- alert, oriented x 1; no gross focal neurologic deficits Skin- warm & dry Results & Data ([facility]) Vital Signs (Past 12 Hours) Vital Signs Temp Pulse Pulse Resp BP Pulse Ox 09/25/19 15:27 66 09/25/19 15:06 36.9 C 64 21 131/44 L 94 09/25/19 11:30 36.3 C L 64 20 148/56 H 97 09/25/19 07:50 36.6 C 64 20 158/67 H 97 09/25/19 07:30 54 L Laboratory Results Laboratory Results - last 24 hr 09/25/19 09/25/19 09/25/19 10:10 10:10 10:10 WBC 3.34 L RBC 2.41 L Hgb 8.2 L Hct 24.8 L MCV 102.9 H MCH 34.0 MCHC 33.1 RDW Std Deviation 54.7 H RDW Coeff of Liss 14.5 Plt Count 98 L MPV 10.3 Immature Gran % (Auto) 0.0 Neut % (Auto) 55.1 Lymph % (Auto) 27.2 [place] % (Auto) 12.0 Eos % (Auto) 5.1 Baso % (Auto) 0.6 Immature Gran # (Auto) 0.00 Neut # (Auto) 1.84 Lymph # (Auto) 0.91 L [place] # (Auto) 0.40 Eos # (Auto) 0.17 Baso # (Auto) 0.02 Platelet Estimate Decreased L PT 15.1 H INR 1.5 H Sodium 140 Potassium 4.8 Chloride 111 H Carbon Dioxide 24 Anion Gap 5.0 BUN 68 H Creatinine 1.73 H Est Cr Clr Drug Dosing 16.1 Est GFR ( Amer) 30.0 Est GFR (Non-Af Amer) 25.9 BUN/Creatinine Ratio 39.3 H Glucose 97 Calcium 8.3 L (1) Closed sacral fracture Encounter type: initial encounter Zone of sacrum fracture: unspecified portion of sacrum Qualified Code(s): S32.10XA - Unspecified fracture of sacrum, initial encounter for closed fracture
[2019-09-25] MEDS: WARFARIN SOD 1 MG TAB PO SCH (18:09)
[2019-09-25] MEDS: WARFARIN SOD 0.5 MG TAB PO SCH (18:09)
[2019-09-25] MEDS: ATORVASTATIN 10 MG TAB PO SCH (20:35)
[2019-09-26] MEDS ORDERED: HydrALAZINE HCL 20 MG/ML VIAL IV ONE (02:41)
[2019-09-26] MEDS: ISOSORBIDE DINITRATE 10 MG TAB PO SCH ×2 (06:12→12:10)
[2019-09-26] MEDS: PANTOprazole 40 MG TAB PO SCH (06:12)
[2019-09-26] MEDS: LEVOTHYROXINE SODIUM 88 MCG TABLET PO SCH (06:12)
[2019-09-26 08:16] LABS: Basophils # (auto) 0.02 K/uL (0-0.2); Basophils % (auto) 0.5 %; Eosinophils # (auto) 0.16 K/uL (0-0.5); Hematocrit (blood only) 25.7 % (37-47); Hemoglobin 8.6 g/dL (12.0-16.0); Lymphocytes # (auto) 1.44 K/uL (1.2-3.4); Lymphocytes % (auto) 36.1 %; Mean Corpuscular Hemoglobin 34.4 pg (25-34); Mean Corpuscular Hgb Conc 33.5 g/dL (32-36); Mean Corpuscular Volume 102.8 fL (80-100); Mean Platelet Volume 10.2 fL (7.4-10.4); Monocytes % (auto) 7.5 %; Neutrophils # (auto) 2.07 K/uL (1.4-6.5); Neutrophils % (auto) 51.9 %; Platelet Count 108 K/uL (130-400); RDW Coefficient of Variation 14.4 % (11.5-14.5); RDW Standard Deviation 53.3 fL (36.4-46.3); White Blood Count 3.99 K/uL (4.8-10.8)
[2019-09-26 08:32] LABS: INR 1.6 (0.9-1.1); Prothrombin Time 16.2 Seconds (9.0-12.0)
[2019-09-26 08:39] LABS: BUN Creatinine Ratio 42.5 (10-20); Calcium 8.8 mg/dl (8.5-10.1); Creatinine Clr Calc Pharmacy 17.6 ml/min; Est GFR (African American) 33.3; Est GFR (Non-African American) 28.7; Potassium 5.4 mmol/L (3.5-5.1)
[2019-09-26] MEDS: CHOLECALCIFEROL 1,000 UNITS 25 MCG TAB PO SCH (08:55)
[2019-09-26] MEDS: NEPHROCAPS PO SCH (08:55)
[2019-09-26] MEDS: carvediloL 3.125 MG TAB PO SCH (08:55)
[2019-09-26] MEDS: DOCUSATE SODIUM 100 MG CAP PO SCH (08:55)
[2019-09-26] MEDS: FAMOTIDINE 20 MG TAB PO SCH (08:55)
[2019-09-26] MEDS: ASPIRIN 81 MG ECTAB PO SCH (08:55)
[2019-09-26] MEDS: AMLODIPINE BESYLATE 5 MG TAB PO SCH (08:56)
[2019-09-26] MEDS: ESCITALOPRAM OXALATE 20 MG TAB PO SCH (08:56)
[2019-09-26] MEDS: ACETAMINOPHEN 1,000 MG/100 ML VIAL IV SCH (08:56)
[2019-09-26] MEDS: LIDOCAINE 5% 1 PATCH TD SCH (08:57)
[2019-09-26] MEDS ORDERED: FUROSEMIDE 40 MG TAB PO SCH (09:00)
--- NOTE | 2019-09-26 15:03 | Hospitalist Progress Note ---
Date of Service September 26, 2019 Assessment & Plan (1) Ambulatory dysfunction: (2) Fall: (3) Closed sacral fracture: This is an 88-year-old female with significant PMH of CAD, HTN, HLD, paroxysmal A. 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 CT pelvis confirms S3 fracture Ortho spine consulted - Dr. Booth, appreciate his input -conservative management at this time PT/OT : skilled rehab recommended pain well controlled, continue pain management Continue Tylenol 650mg every 8 hours round the clock transition to [facility] today (4) Supratherapeutic INR: patient's INR initially supratherapeutic now has been subtherapeutic Usual Coumadin regimen: 1.5 mg p.o. Thursday, Thursday, , Thursday; 3 mg Wednesdays and Fridays INR 1.5 again today September 26, 2019 Give Coumadin 5 mg today September 26, 2019 Repeat INR in the morning Monitor INR daily and titrate Coumadin accordingly (5) CAD (coronary artery disease): No chest pain or shortness of breath Continue ASA, statin, Imdur, Coreg, warfarin (6) HTN (hypertension): Blood pressure elevated Increase amlodipine from 2.5 to 5 mg p.o. daily, continue Coreg, Imdur resume Lasix Monitor blood pressure closely (7) PAF (paroxysmal atrial fibrillation): Rate and rhythm controlled on coreg Warfarin for anticoagulation Home regimen (3mg MWF and 1.5mg all other days) Management of warfarin per noted above (8) CHF (congestive heart failure): History of CHF, diastolic Last echocardiogram 04/2019 revealed EF 55 to 60%, aortic valve sclerosis On Lasix 40 mg Thursday, earlier held for elevated crea euvolemic Continue Imdur Resume Lasix (9) CKD (chronic kidney disease), stage IV: Acute Kidney Injury acute on chronic CKD stage 4 Baseline creatinine 1.8-2.0 held Lasix, received 1L IVF crea 1.7 Resume Lasix, monitor BMP (10) HLD (hyperlipidemia): Continue statin (11) Anemia, chronic disease: Hemoglobin 8.6 monitor On Epogen every [address] Rodriguez (12) Hypothyroidism: Continue levothyroxine (13) Depression with anxiety: Continue Lexapro, as needed lorazepam Continue Elian Was extremely anxious during the weekend, improved now Monitor for delirium Hospital delirium --Discussed with support staff continue gentle reorientation avoid narcotics, benzodiazepenes (14) DVT prophylaxis: continue coumadin awaiting acceptance to SNF Follow up: Discharge to [facility] Follow-up with Dr. Quevedo 1 week after discharge from [facility] Admission and Anticipated Discharge Date Admission Date: September 21, 2019 Subjective Follow-up for S3 fracture Seen resting in bedside chair, sitting up, awake and alert, answers questions appropriately States that she feels fine overall Denies back pain or leg pain No shortness of breath, palpitations, dizziness, chest pain No other symptoms States she is ready for discharge today Review of Systems Review of Systems: All systems reviewed & are unremarkable except as noted in HPI & below Physical Exam Physical Exam: General- oriented x 2, not in distress, speaks in sentences with no effort or accessory muscle use Eyes- anicteric Neck- no JVD Lungs- clear breath sounds bilaterally Heart- normal rate, regular rhythm; no murmurs Abdomen- normal bowel sounds, nondistended, soft, nontender Extremities- no pretibial edema, no calf tenderness Neuro- alert, oriented x 2; no gross focal neurologic deficits Skin- warm & dry Results & Data ([facility]) Vital Signs (Past 12 Hours) Vital Signs Temp Pulse Pulse Resp BP BP Pulse Ox 09/26/19 14:19 36.5 C 69 16 153/51 H 96 09/26/19 11:25 36.5 C 69 16 153/51 H 96 09/26/19 07:34 36.6 C 70 16 156/51 H 94 09/26/19 07:09 67 09/26/19 03:47 36.8 C 66 18 171/74 H 93 Laboratory Results Laboratory Results - last 24 hr 09/26/19 09/26/19 09/26/19 08:06 08:06 08:06 WBC 3.99 L RBC 2.50 L Hgb 8.6 L Hct 25.7 L MCV 102.8 H MCH 34.4 H MCHC 33.5 RDW Std Deviation 53.3 H RDW Coeff of Liss 14.4 Plt Count 108 L MPV 10.2 Immature Gran % (Auto) 0.0 Neut % (Auto) 51.9 Lymph % (Auto) 36.1 [place] % (Auto) 7.5 Eos % (Auto) 4.0 Baso % (Auto) 0.5 Immature Gran # (Auto) 0.00 Neut # (Auto) 2.07 Lymph # (Auto) 1.44 [place] # (Auto) 0.30 Eos # (Auto) 0.16 Baso # (Auto) 0.02 PT 16.2 H INR 1.6 H Sodium 141 Potassium 5.4 H Chloride 113 H Carbon Dioxide 24 Anion Gap 4.0 BUN 68 H Creatinine 1.59 H Est Cr Clr Drug Dosing 17.6 Est GFR ( Amer) 33.3 Est GFR (Non-Af Amer) 28.7 BUN/Creatinine Ratio 42.5 H Glucose 81 Calcium 8.8 (1) Closed sacral fracture Encounter type: initial encounter Zone of sacrum fracture: unspecified portion of sacrum Qualified Code(s): S32.10XA - Unspecified fracture of sacrum, initial encounter for closed fracture
--- NOTE | 2019-09-26 15:21 | Discharge Summary ---
Date of Service September 26, 2019 Admission HPI Per Admitting Provider This is an 88-year-old female with significant PMH of CAD, HTN, HLD, paroxysmal A. 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 She lives at home with her daughter Soni. States she just finished eating breakfast/rice krispies when she went to walk over to put her bowl and plate a way. When she went to put bowl on stove to get her balance she lost balance and fell. She said she was trying to reach up when she went down. She usually ambulates with walker, but according to patient she was told her walker was on the other side of the room. She denies LOC or syncope and recalls all events. Denies recent illness, f/c/s, chest pain, sob, palpitations, n/v/d, melena, hematochezia. She has chronic indwelling miller, but patient is unsure why. She complains of b/l leg pain below the knee along with buttock pain. Appetite is stable her patient. She is unsure if she took her meds today and states daughter Soni is in charge of that. Attending discussed case with ED provider in which there was questionable syncopal component to patients fall; however patient currently denies. States fall was unwitnessed. Denies presyncopal symptoms. In ED pt remained hemodynamically stable, but hypertensive BP 174/47. Imaging reveals concern for possible acute S3 fracture. Hip Xray reveals intact L VELMA and severe OADJD of R hip. H/H stable at 10.1 and 30.0, wbc 6.74k, bun 44 and cr 2.02. Received IV Zofran and morphine while in ED. Admission Exam Per Admitting Provider Constitutional: Petite, thin, elderly, F, vitals as above, NAD, sitting up in bed, pleasant, conversing easily Head: Normocephalic, Atraumatic Eyes: PERRL, conjunctivae normal, anicteric sclerae ENMT: external ear and nose normal, oropharynx normal Neck: trachea midline, no thyromegaly normal visual inspection Respiratory: normal respiratory effort, lungs clear to auscultation, no wheeze, rales, rhonchi. Normal insp/exp effort, no accessory muscle use Cardiovascular: Regular rate and rhythm, normal s1/s2, no edema Vessels: no JVD or carotid bruit Chest: normal inspection of chest Abdomen: normal bowel sounds, soft, nontender, no hepatosplenomegaly Musculoskeletal: no cyanosis or clubbing, extremities motor strength 5/5 , pinpoint tenderness to sacral vertebral process Skin: no rashes, warm and dry normal turgor Neurologic: PERRL, EOMI, accommodation nl, no face palsy, no dysarthria CN's II-XI intact bilaterally and moves all extremities Psychiatric: A+Ox3 only, euthymic affect Lymphatic: no cervical or axillary lymphadenopathy : deferred Principal Diagnosis S3 fracture, status post fall Discharge Exam General- oriented x 2, not in distress, speaks in sentences with no effort or accessory muscle use Eyes- anicteric Neck- no JVD Lungs- clear breath sounds bilaterally Heart- normal rate, regular rhythm; no murmurs Abdomen- normal bowel sounds, nondistended, soft, nontender Extremities- no pretibial edema, no calf tenderness Neuro- alert, oriented x 2; no gross focal neurologic deficits Skin- warm & dry Discharge Data Allergies Allergy/AdvReac Type Severity Reaction Status Date / Time Penicillins Allergy Intermediate HIVES Verified 09/20/19 12:15 hydromorphone [From Dilaudid] AdvReac Intermediate pruritus Verified 09/24/19 17:30 iron AdvReac Mild n&v, abd Verified 09/20/19 12:15 pain Venofer AdvReac Mild n&v, abd Verified 02/28/18 08:54 pain Consultations 09/20/19 13:51 ED Decision to Admit Stat 09/20/19 17:00 Consult Case Management - Discharge Planning Routine Consult Orthopedic Surgery Routine Ordered Studies 09/20/19 11:38 CT cervical spine wo con Stat COMPARISON STUDY: CT of the cervical spine dated 06/02/2019. TECHNIQUE: CT scan of the cervical spine is performed from the skull base to the upper thoracic spine. Images are reviewed in the axial, sagittal, and coronal planes. IV contrast was not administered for this examination. A dose lowering technique was utilized adhering to the principles of ALARA. FINDINGS: Skeletal structures: The skeletal structures are osteopenic. There is no evidence of fracture or subluxation involving the cervical spine. Vertebral body height is maintained. There is minimal anterolisthesis at C3-C4. Alignment is otherwise preserved. There is straightening of the cervical lordosis with reversal centered at C3-C4. Anterior osteophytes are seen throughout. There is partial bony fusion seen from C5-C7. The odontoid process and lateral masses are intact. The atlantoaxial articulation is preserved noting productive degenerative change. The spinous processes appear intact. There is 6 mm of an terolisthesis at T2-T3. There is moderate to advanced multilevel cervical spondylosis. Uncovertebral and facet arthropathy contribute to neural foraminal stenosis at most levels. Intervertebral discs: Advanced disc space narrowing is seen from C4-C5 through C6-C7. Moderate disc space narrowing is seen at C2-C3 and T2-T3. Central canal: Posterior disc osteophyte complexes at C4-C5, C5-C6, and C6-C7 likely contribute to multilevel acquired compromise of the central canal. Soft tissues: The prevertebral and paraspinous soft tissues are within normal limits. Calvarium: The visualized calvarium at the skull base appears intact. Brain parenchyma: Partially visualized brain parenchyma the skull base is within normal limits. Sinuses and mastoids: The visualized paranasal sinuses are clear. The mastoid air cells are well pneumatized. Lung apices: A calcified granuloma is noted at the left apex. Upper lobe lung parenchyma is otherwise clear as visualized. IMPRESSION: 1. There is no evidence of fracture or subluxation involving the cervical spine. 2. Osteopenia and spondylotic change as above. CT head/brain wo con Stat COMPARISON STUDY: CT of the brain dated 06/02/2019. TECHNIQUE: Unenhanced axial CT scan of the brain is performed from the vertex to the skull base. A dose lowering technique was utilized adhering to the principles of ALARA. CT DOSE: 1390.31 mGy.cm FINDINGS: Brain parenchyma: There are age-related involutional changes noting mild subcortical and periventricular microangiopathic change. There is no hemorrhage, mass effect, or evidence of acute territorial ischemia by CT criteria. Sánchez- white matter differentiation is preserved. No extra-axial fluid collection is seen. Ventricles, sulci, cisterns: Prominent secondary to involutional change. Intracranial vasculature: There is atherosclerotic calcification of the cavernous carotid and vertebral arteries. Calvarium: The skeletal structures are osteopenic. There is no depressed calvarial fracture. Sinuses and mastoids: The visualized paranasal sinuses are clear. The mastoid air cells are well pneumatized. Orbits: The bony orbits are grossly intact. IMPRESSION: There is no hemorrhage, mass effect, or evidence of acute territorial ischemia by CT criteria. 09/20/19 14:34 CT pelvis wo con Urgent HISTORY: 88 years-old Female Sacrum and coccyx, xray showing S3 fracture acute low back pain with possible sacral fracture COMPARISON: Lumbar spine radiographs of same day, CT abdomen and pelvis 08/09/2019 TECHNIQUE: Multiple axial CT images of the pelvis were obtained without the use of IV contrast. A dose lowering technique was used consistent with the principals of ZANDRA. FINDINGS: Confirmation of the acute versus subacute fracture involving the anterior cortex of the S3 segment, new from 08/09/2019. This finding is best appreciated on the sagittal images. Advanced spondylitic spurring and facet arthrosis of the imaged lower lumbar spine. Demineralized appearance of the bones limits evaluation for subtle acute nondisplaced fractures. No definite additional fracture identified. Severe right hip osteoarthritis. Left hip total joint arthroplasty without evidence of hardware complication. Mild presacral edema is likely reactive. Miller catheter within a decompressed urinary bladder. Colonic diverticulosis. Extensive calcified plaque of the abdominal aorta. Soft tissues are unremarkable. IMPRESSION: 1. Confirmation of the subtle acute versus subacute fracture involving the anterior cortex of the S3 segment, new from 08/09/2019. 2. Demineralized appearance of the bones with degenerative changes as above. No definite additional acute fracture or subluxation identified. 3. Mild presacral edema may be reactive. Hospital Course (1) Ambulatory dysfunction: (2) Fall: (3) Closed sacral fracture: per admitting service notes: This is an 88-year-old female with significant PMH of CAD, HTN, HLD, paroxysmal A. 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 CT pelvis confirms S3 fracture Ortho spine consulted - Dr. Booth, appreciate his input -conservative management at this time PT/OT : skilled rehab recommended pain well controlled, continue pain management Continue Tylenol 650mg every 8 hours round the clock transition to [facility] today (4) Supratherapeutic INR: patient's INR initially supratherapeutic at 4.1 coumadin held, usual regimen resumed now has been subtherapeutic Usual Coumadin regimen: 1.5 mg p.o. Thursday, Thursday, , Thursday; 3 mg Wednesdays and Fridays INR 1.5 again today September 26, 2019 Give Coumadin 5 mg today September 26, 2019 Repeat INR in the morning Monitor INR daily and titrate Coumadin accordingly (5) CAD (coronary artery disease): No chest pain or shortness of breath Continue ASA, statin, Imdur, Coreg, warfarin (6) HTN (hypertension): Blood pressure elevated Increase amlodipine from 2.5 to 5 mg p.o. daily, continue Coreg, Imdur resume Lasix Monitor blood pressure closely (7) PAF (paroxysmal atrial fibrillation): Rate and rhythm controlled on coreg Warfarin for anticoagulation Home regimen (3mg MWF and 1.5mg all other days) Management of warfarin per noted above (8) CHF (congestive heart failure): History of CHF, diastolic Last echocardiogram 04/2019 revealed EF 55 to 60%, aortic valve sclerosis On Lasix 40 mg Thursday, earlier held for elevated crea euvolemic Continue Imdur Resume Lasix (9) CKD (chronic kidney disease), stage IV: Acute Kidney Injury acute on chronic CKD stage 4 Baseline creatinine 1.8-2.0 held Lasix, received 1L IVF crea 1.7 Resume Lasix, monitor BMP (10) HLD (hyperlipidemia): Continue statin (11) Anemia, chronic disease: Hemoglobin 8.6 monitor On Epogen every [address] Rodriguez (12) Hypothyroidism: Continue levothyroxine (13) Depression with anxiety: Continue Lexapro, as needed lorazepam Continue BuSpar Was extremely anxious during the weekend, improved now Monitor for delirium Hospital delirium --Discussed with hotel staff member continue gentle reorientation avoid narcotics, benzodiazepenes (14) DVT prophylaxis: continue coumadin awaiting acceptance to SNF Follow up: Discharge to [facility] Follow-up with Dr. Quevedo 1 week after discharge from [facility] Total Time Total Time Spent Total Time Spent (In Minutes): 50 minutes Discharge Plan Discharge Items Patient Disposition: Transfer Detention Fac Reason For Visit: FALL,S3 FX Discharge Diagnosis: Ambulatory Dysfunction Fall Sacral Fracture - S3 Elevated INR Acute on Chronic CKD Hypertension Atrial Fibrillation Condition on Discharge: Good Activity: Per Instructions section Activity Comment: WBAT with rolling walker Lifting: Wait until after follow-up appointment Exercise Comment: Follow PT and OT recommendation Weightbearing: Full weightbearing Non-emergency contact: Primary Care Provider and Hospitalist Call non-emergency contact if: you have any medication questions, your symptoms worsen, your pain is not controlled, your pain is worsening, your pain is unusual for you, your pain is concerning for you and you have a fever Follow-up/Referrals: Yogesh Quevedo MD [Primary Care Provider] - Diet: Heart Healthy and Low Sodium (2gm) Addtl Attending Provider Instructions: MEDICATION CHANGES: Added Tylenol 650 mg every 8 hours scheduled Amlodipine increased from 2.5 to 5 mg p.o. daily Coumadin 5 mg p.o. 1 dose ordered for INR 1.5 on September 26, 2019; check INR daily and titrate Coumadin accordingly Please refer to accompanying hospital discharge summary for further details. SUMMARY OF TEST RESULTS: CT scan of your pelvis reveals a fracture of one of your sacral bones, S3. Your lab work reveals elevated kidney function which improved with IV fluid. Your INR was elevated during admission; therefore your coumadin was held INR on day of discharge was 1.5. PENDING TEST RESULTS: Daily INR CBC, BMP in 2 to 3 days RECOMMENDATIONS FOR FOLLOW-UP: Take all medications as prescribed. Continue to participate in PT/OT. Your were seen by orthopedic spine surgeon who feels you can bear weight as tolerated with wheeled walker, no surgical intervention required. OTHER INSTRUCTIONS: Seek medical attention if you have: * temperature above 101 * chest pain or trouble breathing * abdominal pain, nausea, vomiting * diarrhea, dark stools or bloody stools * any unanswered questions or concerns Call 911 if symptoms are severe. Please take good care of yourself. Call if you have any questions or problems. You can reach a [facility] hospitalist on duty at [facility] 24 hours a day by calling [phone]. My pager number # is [phone]. Pending Studies at Discharge: No Stand-Alone Forms: My [facility], Smoking Cessation Skilled Items Patient informed of condition?: Yes DNR: No Discharge Level of Care: Skilled Communicable Disease: No Discharge Prognosis: Stable Lines: None Urinary Catheter: Yes Medications and DC Order Prescriptions: New acetaminophen [Mapap (acetaminophen)] 325 mg Tablet 650 mg PO Q8H Qty: 30 RF: 0 amlodipine [Norvasc] 5 mg Tablet 5 mg PO DAILY 30 Days Qty: 30 RF: 2 lidocaine 5 % Adhesive Patch,Medicated 1 patch transdermal QAM 7 Days Qty: 7 RF: 1 Continued levothyroxine 88 mcg tablet 88 mcg PO DAILYBB RF: 0 ranitidine HCl 150 mg tablet 150 mg PO BID RF: 0 isosorbide dinitrate 10 mg tablet 10 mg PO TID RF: 0 aspirin 81 mg Tablet,Chewable 81 mg PO QAM RF: 0 acetaminophen 325 mg Tablet 650 mg PO Q6H MDD 2g/24hr PRN (Reason: Pain) RF: 0 lorazepam 0.5 mg Tablet 0.5 mg PO HS PRN (Reason: Anxiety) RF: 0 warfarin 3 mg Tablet 1.5 mg PO SUTUTHSA RF: 0 pantoprazole 40 mg Tablet,Delayed Release (Dr/Ec) 40 mg PO DAILYBB RF: 0 carvedilol 3.125 mg tablet 3.125 mg PO BID RF: 0 warfarin 3 mg Tablet 3 mg PO MOWEFR Qty: 0 RF: 0 atorvastatin 10 mg Tablet 10 mg PO PM RF: 0 cholecalciferol (vitamin D3) 1,000 unit Capsule 1,000 unit PO QAM RF: 0 docusate sodium 100 mg Capsule 100 mg PO BID RF: 0 buspirone 5 mg tablet 5 mg PO BID RF: 0 cetirizine 10 mg Tablet 10 mg PO QAM PRN (Reason: Rash) RF: 0 nitroglycerin 0.3 mg tablet, sublingual 0.3 mg sublingual DIRECTED PRN (Reason: Chest Pain) RF: 0 triamcinolone acetonide 0.1 % cream 1 applic topical BID PRN (Reason: Rash) RF: 0 hydroxyzine HCl 10 mg/5 mL Solution 5 mg PO Q6H PRN (Reason: Itching) RF: 0 polyethylene glycol 3350 [Miralax] 17 gram/dose Powder 17 g PO DAILY PRN (Reason: Constipation) RF: 0 Procrit 10,000 unit/mL Solution 10,000 unit subcut .[id number] RF: 0 escitalopram oxalate [Lexapro] 20 mg Tablet 20 mg PO DAILY RF: 0 Nepro Carb Steady 0.08 gram-1.8 kcal/mL Liquid 1 ea PO BID RF: 0 furosemide 40 mg tablet 40 mg PO MOWEFR RF: 0 Discontinued amlodipine 2.5 mg Tablet 2.5 mg PO DAILY RF: 0 Discharge Orders: Discharge Order (Routine); Ordered 09/26/19 Ordered By: Abimael Bonds Admission Data Admit Date/Time: 09/21/19 17:07 Attending Provider: Abimael Bonds Admit Provider: Sana García Primary Care Provider: Yogesh Quevedo Other Providers: Sana García ; Ang Booth ; [facility] [place] Other Interventions: Discharge Summary Assessment (RN) Last Done: 09/26/19 14:19
[2019-09-26] MEDS ORDERED: WARFARIN SOD 5 MG TAB PO SCH (16:00)
== END 2019-09-26 16:21 | DRG 552 ==
LOC: ED 11:08 → 2N 11:08 → SUATTDRO 14:33 → 2N 16:04

== ENCOUNTER 2019-10-21 18:28 | Observation (INO) ==
[2019-10-21] MEDS ORDERED: DEXAMETHASONE **PF** INJ 10 MG/ML VIAL ONE (18:30)
--- NOTE | 2019-10-21 19:24 | Emergency Department Note ---
History of Present Illness General Chief complaint: Referred by Doctor Stated complaint: OTHER Time Seen by Provider: 10/21/19 18:37 History of Present Illness Provider complaint: Safety The patient is a pleasant 80-year-old woman with a past medical history of dementia with recent diagnosis of influenza completing course of Tamiflu who presents emergency department from her PCPs office after visiting them accompanied by her daughter who also at her own appointment for flulike symptoms found be hypoxic and referred to the emergency department. Patient was sent to the Emergency department because upon transfer of the patient's daughter via EMS there was concern that the patient was unable to go home given there was no caregiver there given her dementia and requirement of 24/7 care. A the patient's friend was on her way to pick the patient up however EMS was called to transfer the patient to the emergency department. [facility] was able to inquire in the meantime of options and confirm they are able to have a person stay with the patient carlos and shaggy were able to be except the patient tomorrow. Patient has no concerns at this time. The patient's daughter who I was also taking care of, reports that her mother's symptoms of the flu have been improving and there were no active medical concerns at this time. Home Medications Home Medications Medication Instructions Recorded Confirmed Type levothyroxine 88 mcg PO DAILYBB 08/16/18 10/21/19 History ranitidine HCl 150 mg PO BID 08/16/18 10/21/19 History atorvastatin 10 mg PO PM 12/10/18 10/21/19 History cholecalciferol (vitamin D3) 1,000 unit PO QAM 12/10/18 10/21/19 History docusate sodium 100 mg PO BID 12/10/18 10/21/19 History aspirin 81 mg PO QAM 02/08/19 10/21/19 History isosorbide dinitrate 10 mg PO TID 02/08/19 10/21/19 History buspirone 5 mg PO BID 03/31/19 10/21/19 History cetirizine 10 mg PO QAM PRN 03/31/19 10/21/19 History nitroglycerin 0.3 mg SUBLINGUAL DIRECTED PRN 03/31/19 10/21/19 History triamcinolone acetonide 1 applic TOPICAL BID PRN 03/31/19 10/21/19 History Nepro Carb Steady 1 ea PO BID 06/02/19 10/21/19 History Procrit 10,000 unit SUBCUT UD 06/02/19 10/21/19 History escitalopram oxalate [Lexapro] 20 mg PO DAILY 06/02/19 10/21/19 History hydroxyzine HCl 5 mg PO Q6H PRN 06/02/19 10/21/19 History polyethylene glycol 3350 [Miralax] 17 g PO DAILY PRN 06/02/19 10/21/19 History furosemide 40 mg PO MOWEFR 08/09/19 10/21/19 History carvedilol 3.125 mg PO BID 09/20/19 10/21/19 History pantoprazole 40 mg PO DAILYBB 09/20/19 10/21/19 History amlodipine [Norvasc] 5 mg PO DAILY 30 Days #30 tab 09/26/19 10/21/19 Rx lidocaine 1 patch TRANSDERMAL QAM 7 Days #7 09/26/19 10/21/19 Rx ea cephalexin [Keflex] 250 mg PO BID 10/21/19 10/21/19 History menthol [Biofreeze (menthol)] 1 applic TOPICAL BID PRN 10/21/19 10/21/19 History oseltamivir [Tamiflu] 30 mg PO DAILY 10/21/19 10/21/19 History warfarin [Coumadin] 2 mg PO DAILY 10/21/19 10/21/19 History Allergies Allergy/AdvReac Type Severity Reaction Status Date / Time Penicillins Allergy Intermediate HIVES Verified 10/21/19 22:50 hydromorphone [From Dilaudid] AdvReac Intermediate pruritus Verified 10/21/19 22:50 iron AdvReac Mild n&v, abd Verified 10/21/19 22:50 pain Venofer AdvReac Mild n&v, abd Verified 02/28/18 08:54 pain Past Med/Surg History Medical History Anemia (Acute) Anxiety (Chronic) Chronic indwelling Villegas catheter CKD (chronic kidney disease), stage IV (Chronic) FRANCES (generalized anxiety disorder) (Chronic) GERD (gastroesophageal reflux disease) (Chronic) H/O echocardiogram (Chronic) "03/2015 - EF 60-65%, moderate to severe aortic regurgitation" HLD (hyperlipidemia) (Chronic) HTN (hypertension) (Chronic) Hypothyroidism (Chronic) Major depressive disorder, recurrent, 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) Surgical History Hx of appendectomy (Chronic) Hx of cholecystectomy (Chronic) Hx of dilation and curettage (Chronic) Status post total hip replacement, left (Chronic) Family History Other Hypertension Social History Preferred Language: Macedonian Communication Ability: Effective 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 A total of ten systems were reviewed and were otherwise negative. Physical Exam Vital Signs Vital Signs - 24 hr 10/21/19 18:43 10/21/19 20:40 Temperature 36.8 C Temperature Source Oral Pulse Rate 55 L Pulse Rate [Right Finger] 52 L Respiratory Rate 18 22 Respiratory Depth Normal Blood Pressure 152/43 H Blood Pressure [Right Arm] 162/42 H Blood Pressure Mean 79 Blood Pressure Mean [Right Arm] 82 Blood Pressure Position Lying Pulse Oximetry 98 97 Oxygen Delivery Method Room Air Sepsis Recent Fever Within 48 Hours No Sepsis New/Unexplained Change in Mental Status No Sepsis Action Taken by Nursing No Action Required GENERAL: Awake, alert, mildy confused, relatively well-appearing, in no distress HENT: Normocephalic, atraumatic. Oropharynx with dry mucous membranes and otherwise unremarkable. EYES: Normal conjunctiva. Sclera non-icteric. NECK: Supple. No nuchal rigidity. FROM. No JVD. RESPIRATORY: Clear to auscultation. CARDIAC: Regular rate, normal rhythm. Extremities warm and well perfused. Pulses equal. ABDOMEN: Soft, non-distended. No tenderness to palpation. No rebound or guarding. No masses. RECTAL: Deferred. MUSCULOSKELETAL: Chest examination reveals no tenderness. The back is symmetrical on inspection without obvious abnormality. There is no CVA tenderness to palpation. No joint edema. LOWER EXTREMITIES: Calves are equal size bilaterally and non-tender. No edema. No discoloration. NEURO: Normal sensorium. No sensory or motor deficits noted. SKIN: No rash or jaundice noted. Course Administered Medications Miscellaneous (Remove Lidoderm Patch) 1 ea N/A DAILY@2100 [facility] Stop: 11/21/19 01:57 Last Admin: 10/22/19 03:15 Dose: Not Given Documented by: [id number] Discontinued Medications Amlodipine Besylate (Norvasc) 2.5 mg PO NOW STA Stop: 10/21/19 22:04 Last Admin: 10/21/19 23:04 Dose: 2.5 mg Documented by: [id number] Dexamethasone Sodium Phosphate (Decadron Pf) Confirm Administered Dose 10 mg .ROUTE .STK-MED ONE Stop: 10/21/19 18:31 Last Admin: 10/21/19 18:51 Dose: Not Given Documented by: [id number] Medical Decision Making Medical Records Attestation: I reviewed the patient's medical records. Home Medications Current Medication List: was personally reviewed by me Laboratory Data Result diagrams: 10/21/19 23:28 10/21/19 23:28 Lab Results 10/21/19 10/21/19 10/21/19 Range/Units 23:28 23:28 23:28 WBC 4.77 L (4.8-10.8) K/uL RBC 2.71 L (4.2-5.4) M/uL Hgb 9.0 L (12.0-16.0) g/dL Hct 27.6 L (37-47) % MCV 101.8 H (80-100) fL MCH 33.2 (25-34) pg MCHC 32.6 (32-36) g/dL RDW Std Deviation 54.0 H (36.4-46.3) fL RDW Coeff of Liss 14.5 (11.5-14.5) % Plt Count 145 (130-400) K/uL MPV 9.8 (7.4-10.4) fL Immature Gran % (Auto) 0.2 % Neut % (Auto) 38.7 % Lymph % (Auto) 47.4 % [place] % (Auto) 9.9 % Eos % (Auto) 3.4 % Baso % (Auto) 0.4 % Immature Gran # (Auto) 0.01 (0.00-0.02) K/uL Neut # (Auto) 1.85 (1.4-6.5) K/uL Lymph # (Auto) 2.26 (1.2-3.4) K/uL [place] # (Auto) 0.47 (0.11-0.59) K/uL Eos # (Auto) 0.16 (0-0.5) K/uL Baso # (Auto) 0.02 (0-0.2) K/uL PT 24.6 H (9.0-12.0) Seconds INR 2.4 H (0.9-1.1) APTT 38.7 H (21.0-31.0) Seconds PTT Ratio 1.4 Sodium 137 (136-145) mmol/L Potassium 4.0 (3.5-5.1) mmol/L Chloride 105 (98-107) mmol/L Carbon Dioxide 28 (21-32) mmol/L Anion Gap 5.0 (3-11) BUN 30 H (7-18) mg/dl Creatinine 1.64 H (0.6-1.2) mg/dl Est Cr Clr Drug Dosing 19.2 ml/min Est GFR ( Amer) 31.8 Est GFR (Non-Af Amer) 27.4 BUN/Creatinine Ratio 18.5 (10-20) Glucose 102 H (70-99) mg/dl Calcium 8.4 L (8.5-10.1) mg/dl Magnesium 1.8 (1.8-2.4) mg/dl Troponin I < 0.015 (0-0.045) ng/ml TSH 0.606 (0.300-4.500) uIu/ml MDM Narrative The patient is a pleasant 80-year-old woman with a past medical history of dementia with recent diagnosis of influenza completing course of Tamiflu who presents emergency department from her PCPs office after visiting them accompanied by her daughter who also at her own appointment for flulike symptoms found be hypoxic and referred to the emergency department. Patient was sent to [facility] department because upon transfer of the patient's daughter via EMS there was concern that the patient was unable to go home given there was no caregiver there given her dementia and requirement of 24/7 care. A the patient's friend was on her way to pick the patient up however EMS was called to transfer the patient to the emergency department. [facility] of aging was able to inquire in the meantime of options and confirm they are able to have a person stay with the patient jovonsunni and shaggy were able to be except the patient tomorrow. Patient has no concerns at this time. The patient's daughter who I was also taking care of reports that her mother's symptoms of the flu have been improving and there were no active medical concerns at this time. Despite treatment of the patient's daughter her symptoms did require admission. Observation was ultimately unable to find him to stay with her mother carlos but secured admission for tomorrow. Thus, given no safe discharge for this patient will proceed with admission. Case was discussed with Dr. Kirkpatrick, [facility], who evaluate the patient for admission. No acute medical concerns will defer any further medical evaluation to admitting team. Impression & Plan Behavior safety risk Discharge Plan Visit Data *Final* Discharge Date/Time: 10/22/19 01:31 Chief Complaint: Referred by Doctor Stated Complaint: OTHER ED Provider: Jay Hi Discharge Problem: Behavior safety risk Patient Disposition: Admitted As Inpatient Condition: Good Discharge Instructions Interventions: ED Discharge Assessment Last Done: 10/22/19 01:31
[2019-10-21] MEDS ORDERED: AMLODIPINE BESYLATE 5 MG TAB PO STA (22:03)
--- NOTE | 2019-10-21 22:16 | XRay Report ---
XR chest 1V portable CLINICAL HISTORY: Hypertensive urgency. Congestive failure. COMPARISON STUDY: 10/16/2019 FINDINGS: The heart is mildly enlarged. There is mild chronic interstitial thickening. There is no ac saman parenchymal consolidation. There is no overt failure. There are no pleural effusions.[ IMPRESSION: Mild cardiomegaly. No acute findings. ACT 112: Negative or not required by law. Electronically signed by: Mauro Sanchez M.D. 10/21/2019 10:15 PM
--- NOTE | 2019-10-21 22:51 | History & Physical Report ---
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 Coumadin INR goal between 2 and 3 Full code Patient's daughter requesting updates providers. Ms. Soni Domínguez, contact #[phone]. Text document was generated using [employer] voice recognition software. It may contain grammatical or spelling errors. Kindly contact undersigned for clarification of any documentation item in question. History of Present Illness Chief Complaint: My daughter is sick Primary Care Provider: Yogesh Quevedo MD History obtained from patient, family, and records. 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 Recent confinement September 2019 sacral fracture secondary to fall. Patient discharged to [facility] for rehab. Recently discharge from rehab to home last week with patient's daughter as primary caregiver. Patient seen at the ER last October 15 for cough symptoms and low blood pressure. Flu swab was positive. Patient completed Tamiflu course. Patient cough symptoms improved. Patient daughter not feeling well the last few days. Seen at PCPs office this afternoon. Patient's daughter sent to the ER for evaluation of hypoxemia. ER admission recommended for patient daughter. Case management unable to find caregiver/placement for patient while daughter confined. Patient denies chest pain, S OB, headache symptoms. 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, lives with daughter Allergies Allergy/AdvReac Type Severity Reaction Status Date / Time Penicillins Allergy Intermediate HIVES Verified 10/21/19 22:50 hydromorphone [From Dilaudid] AdvReac Intermediate pruritus Verified 10/21/19 22:50 iron AdvReac Mild n&v, abd Verified 10/21/19 22:50 pain Venofer AdvReac Mild n&v, abd Verified 02/28/18 08:54 pain Home Medications Home Medications Medication Instructions Recorded Confirmed Type levothyroxine 88 mcg PO DAILYBB 08/16/18 10/21/19 History ranitidine HCl 150 mg PO BID 08/16/18 10/21/19 History atorvastatin 10 mg PO PM 12/10/18 10/21/19 History cholecalciferol (vitamin D3) 1,000 unit PO QAM 12/10/18 10/21/19 History docusate sodium 100 mg PO BID 12/10/18 10/21/19 History aspirin 81 mg PO QAM 02/08/19 10/21/19 History isosorbide dinitrate 10 mg PO TID 02/08/19 10/21/19 History buspirone 5 mg PO BID 03/31/19 10/21/19 History cetirizine 10 mg PO QAM PRN 03/31/19 10/21/19 History nitroglycerin 0.3 mg SUBLINGUAL DIRECTED PRN 03/31/19 10/21/19 History triamcinolone acetonide 1 applic TOPICAL BID PRN 03/31/19 10/21/19 History Nepro Carb Steady 1 ea PO BID 06/02/19 10/21/19 History Procrit 10,000 unit SUBCUT UD 06/02/19 10/21/19 History escitalopram oxalate [Lexapro] 20 mg PO DAILY 06/02/19 10/21/19 History hydroxyzine HCl 5 mg PO Q6H PRN 06/02/19 10/21/19 History polyethylene glycol 3350 [Miralax] 17 g PO DAILY PRN 06/02/19 10/21/19 History furosemide 40 mg PO MOWEFR 08/09/19 10/21/19 History carvedilol 3.125 mg PO BID 09/20/19 10/21/19 History pantoprazole 40 mg PO DAILYBB 09/20/19 10/21/19 History amlodipine [Norvasc] 5 mg PO DAILY 30 Days #30 tab 09/26/19 10/21/19 Rx lidocaine 1 patch TRANSDERMAL QAM 7 Days #7 09/26/19 10/21/19 Rx ea cephalexin [Keflex] 250 mg PO BID 10/21/19 10/21/19 History menthol [Biofreeze (menthol)] 1 applic TOPICAL BID PRN 10/21/19 10/21/19 History oseltamivir [Tamiflu] 30 mg PO DAILY 10/21/19 10/21/19 History warfarin [Coumadin] 2 mg PO DAILY 10/21/19 10/21/19 History Past Med/Surg History Medical History Anemia (Acute) Anxiety (Chronic) Chronic indwelling Villegas catheter CKD (chronic kidney disease), stage IV (Chronic) FRANCES (generalized anxiety disorder) (Chronic) GERD (gastroesophageal reflux disease) (Chronic) H/O echocardiogram (Chronic) "03/2015 - EF 60-65%, moderate to severe aortic regurgitation" HLD (hyperlipidemia) (Chronic) HTN (hypertension) (Chronic) Hypothyroidism (Chronic) Major depressive disorder, recurrent, 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) Surgical History Hx of appendectomy (Chronic) Hx of cholecystectomy (Chronic) Hx of dilation and curettage (Chronic) Status post total hip replacement, left (Chronic) Family History Other Hypertension Social History Preferred Language: Thai Communication Ability: Effective Charge Coordinator Required: No Beliefs That Will Affect Care: None marital status: / Current Living Situation: Family Current Living Situation Comment: lives with daughter current occupational status: retired Other Information That Helps Us Care for You: No Feels Safe at Home: Yes Safety Concerns: Feels Safe At This Time Smoking Status: Never smoker Do You Dip or Chew Tobacco: No ; Second Hand Exposure: No ; Tobacco Cessation Education Requested by Patient: No Hx Alcohol Use: No Hx Substance Use: No Review of Systems Review of Systems: As per HPI, all 10 systems reviewed, all other ROS negative Physical Exam Physical Exam: GENERAL: Comfortable, covered in blankets, pleasant, no respiratory distress SKIN: Pallor , warm HEENT: Pale palpebral conjunctivae, no ptosis, dry buccal mucosa NECK : Supple, no tenderness CHEST : Decreased breath sounds , no tenderness HEART : Bradycardic, systolic murmur ABDOMEN: Soft, nontender EXTREMITIES : Minimal LE swelling no LE tenderness, no other conspicuous deformities noted NEUROLOGIC : Coherent, no facial asymmetry, mild hearing impairment, no other gross focality Results & Data Vital Signs (Past 12 Hours) Vital Signs Temp Pulse Pulse Resp BP BP Pulse Ox 10/21/19 20:40 52 L 22 162/42 H 97 10/21/19 18:43 36.8 C 55 L 18 152/43 H 98 Laboratory Results Laboratory Results WBC 4.77 K/uL (4.8-10.8) L 10/21/19 23:28 RBC 2.71 M/uL (4.2-5.4) L 10/21/19 23:28 Hgb 9.0 g/dL (12.0-16.0) L 10/21/19 23:28 Hct 27.6 % (37-47) L 10/21/19 23:28 MCV 101.8 fL (80-100) H 10/21/19 23:28 MCH 33.2 pg (25-34) 10/21/19 23:28 MCHC 32.6 g/dL (32-36) 10/21/19 23:28 RDW Std Deviation 54.0 fL (36.4-46.3) H 10/21/19 23:28 RDW Coeff of Liss 14.5 % (11.5-14.5) 10/21/19 23:28 Plt Count 145 K/uL (130-400) 10/21/19 23:28 MPV 9.8 fL (7.4-10.4) 10/21/19 23:28 Immature Gran % (Auto) 0.2 % 10/21/19 23:28 Neut % (Auto) 38.7 % 10/21/19 23:28 Lymph % (Auto) 47.4 % 10/21/19 23:28 [place] % (Auto) 9.9 % 03/13/20 23:28 Eos % (Auto) 3.4 % 10/21/19 23:28 Baso % (Auto) 0.4 % 10/21/19 23: Immature Gran # (Auto) 0.01 K/uL (0.00-0.02) 10/21/19 23: Neut # (Auto) 1.85 K/uL (1.4-6.5) 10/21/19: Lymph # (Auto) 2.26 K/uL (1.2-3.4) 10/21/19 23: [place] # (Auto) 0.47 K/uL (0.11-0.59) 10/21/19 23: Eos # (Auto) 0.16 K/uL (0-0.5) 10/21/19: Baso # (Auto) 0.02 K/uL (0-0.2) 10/21/19 23: PT 24.6 Seconds (9.0-12.0) H 10/21/19 23: INR 2.4 (0.9-1.1) H 10/21/19 23: APTT 38.7 Seconds (21.0-31.0) H 10/21/19 23: PTT Ratio 1.4 10/21/19 23: Sodium 137 mmol/L (136-145) 10/21/19: Potassium 4.0 mmol/L (3.5-5.1) 10/21/19 23: Chloride 105 mmol/L (98-107) 10/21/19: Carbon Dioxide 28 mmol/L (21-32) 10/21/19 23: Anion Gap 5.0 (3-11) 10/21/19 23: BUN 30 mg/dl (7-18) H 10/21/19 23: Creatinine 1.64 mg/dl (0.6-1.2) H 10/21/19: Est Cr Clr Drug Dosing 19.2 ml/min 10/21/19 23:28 Est GFR ( Amer) 31.8 10/21/19 23:28 Est GFR (Non-Af Amer) 27.4 10/21/19 23:28 BUN/Creatinine Ratio 18.5 (10-20) 10/21/19 23:28 Glucose 102 mg/dl (70-99) H 10/21/19 23: Calcium 8.4 mg/dl (8.5-10.1) L 10/21/19 23: Magnesium 1.8 mg/dl (1.8-2.4) 10/21/19 23: Troponin I < 0.015 ng/ml (0-0.045) 10/21/19 23: TSH 0.606 uIu/ml (0.300-4.500) 10/21/19 23:28 Diagnostic Findings Chest x-ray : Mild cardiomegaly. No acute findings. EKG pending
[2019-10-21 23:50] LABS: Basophils # (auto) 0.02 K/uL (0-0.2); Basophils % (auto) 0.4 %; Eosinophils # (auto) 0.16 K/uL (0-0.5); Eosinophils % (auto) 3.4 %; Hematocrit (blood only) 27.6 % (37-47); Immature Granulocytes # (auto) 0.01 K/uL (0.00-0.02); Immature Granulocytes % (auto) 0.2 %; Lymphocytes # (auto) 2.26 K/uL (1.2-3.4); Lymphocytes % (auto) 47.4 %; Mean Corpuscular Hemoglobin 33.2 pg (25-34); Mean Corpuscular Hgb Conc 32.6 g/dL (32-36); Mean Corpuscular Volume 101.8 fL (80-100); Mean Platelet Volume 9.8 fL (7.4-10.4); Monocytes # (auto) 0.47 K/uL (0.11-0.59); Monocytes % (auto) 9.9 %; Neutrophils # (auto) 1.85 K/uL (1.4-6.5); Neutrophils % (auto) 38.7 %; Platelet Count 145 K/uL (130-400); RDW Coefficient of Variation 14.5 % (11.5-14.5); Red Blood Count 2.71 M/uL (4.2-5.4); White Blood Count 4.77 K/uL (4.8-10.8)
[2019-10-22 00:05] LABS: INR 2.4 (0.9-1.1); Partial Thromboplastin Ratio 1.4; Partial Thromboplastin Time 38.7 Seconds (21.0-31.0); Prothrombin Time 24.6 Seconds (9.0-12.0)
[2019-10-22 00:09] LABS: BUN Creatinine Ratio 18.5 (10-20); Blood Urea Nitrogen 30 mg/dl (7-18); Calcium 8.4 mg/dl (8.5-10.1); Carbon Dioxide 28 mmol/L (21-32); Chloride 105 mmol/L (98-107); Creatinine Clr Calc Pharmacy 19.2 ml/min; Est GFR (African American) 31.8; Est GFR (Non-African American) 27.4; Glucose 102 mg/dl (70-99); Magnesium 1.8 mg/dl (1.8-2.4); Sodium 137 mmol/L (136-145)
[2019-10-22 00:19] LABS: Thyroid Stimulating Hormone 0.606 uIu/ml (0.300-4.500); Troponin I < 0.015 ng/ml (0-0.045)
[2019-10-22] MEDS ORDERED: ACETAMINOPHEN 325 MG TAB PO PRN (01:58)
[2019-10-22] MEDS ORDERED: PANTOprazole 40 MG TAB PO SCH (06:30)
[2019-10-22] MEDS ORDERED: LEVOTHYROXINE SODIUM 88 MCG TABLET PO SCH (06:30)
[2019-10-22 06:48] LABS: Basophils # (auto) 0.02 K/uL (0-0.2); Basophils % (auto) 0.4 %; Eosinophils # (auto) 0.12 K/uL (0-0.5); Eosinophils % (auto) 2.6 %; Hematocrit (blood only) 25.9 % (37-47); Hemoglobin 8.5 g/dL (12.0-16.0); Immature Granulocytes # (auto) 0.01 K/uL (0.00-0.02); Immature Granulocytes % (auto) 0.2 %; Lymphocytes # (auto) 1.94 K/uL (1.2-3.4); Lymphocytes % (auto) 42.5 %; Mean Corpuscular Hgb Conc 32.8 g/dL (32-36); Mean Corpuscular Volume 103.6 fL (80-100); Mean Platelet Volume 10.4 fL (7.4-10.4); Monocytes # (auto) 0.46 K/uL (0.11-0.59); Monocytes % (auto) 10.1 %; Neutrophils # (auto) 2.01 K/uL (1.4-6.5); Neutrophils % (auto) 44.2 %; Platelet Count 142 K/uL (130-400); RDW Coefficient of Variation 14.7 % (11.5-14.5); RDW Standard Deviation 55.6 fL (36.4-46.3); White Blood Count 4.56 K/uL (4.8-10.8)
[2019-10-22 06:57] LABS: INR 2.7 (0.9-1.1); Prothrombin Time 26.7 Seconds (9.0-12.0)
[2019-10-22 07:19] LABS: BUN Creatinine Ratio 19.5 (10-20); Calcium 8.2 mg/dl (8.5-10.1); Creatinine Clr Calc Pharmacy 16.5 ml/min; Est GFR (African American) 33.3; Est GFR (Non-African American) 28.7; Potassium 3.7 mmol/L (3.5-5.1)
[2019-10-22] MEDS ORDERED: LIDOCAINE 5% 1 PATCH TD SCH (09:00)
[2019-10-22] MEDS ORDERED: ESCITALOPRAM OXALATE 20 MG TAB PO SCH (09:00)
[2019-10-22] MEDS ORDERED: DOCUSATE SODIUM 100 MG CAP PO SCH (09:00)
[2019-10-22] MEDS ORDERED: carvediloL 3.125 MG TAB PO SCH (09:00)
[2019-10-22] MEDS ORDERED: ASPIRIN 81 MG ECTAB PO SCH (09:00)
[2019-10-22] MEDS ORDERED: NUT TX IMP RENAL FXN LAC REDUC PO SCH (09:00)
[2019-10-22] MEDS ORDERED: AMLODIPINE BESYLATE 5 MG TAB PO SCH (09:00)
[2019-10-22] MEDS ORDERED: FAMOTIDINE 10 MG TABLET PO SCH (09:00)
--- NOTE | 2019-10-22 09:17 | Hospitalist Progress Note ---
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 INR 2.7 check INR tomorrow, then regularly CRI, creatinine at baseline hypothyroidism, euthyroid chronic anemia, secondary to CKD, hemoglobin at baseline Recent flu status post Tamiflu Rx Functional disability Disposition d/c to [facility] ff up with PCP in [facility] Admission and Anticipated Discharge Date Admission Date: October 21, 2019 Subjective ff up for hypertension seen resting in bed, in good spirits, alert, oriented states she feels fine denies headache, dizziness, chest pain, dyspnea, palpitations no abdominal pain, nausea/vomiting no other symptoms Review of Systems Review of Systems: All systems reviewed & are unremarkable except as noted in HPI & below Physical Exam Physical Exam: General- oriented x 2, not in distress, speaks in sentences with no effort or accessory muscle use Eyes- anicteric Neck- no JVD Lungs- clear breath sounds bilaterally, no rales/wheezes Heart- normal rate, regular rhythm; no murmurs Abdomen- normal bowel sounds, nondistended, soft, nontender Extremities- no pretibial edema, no calf tenderness Neuro- alert, oriented x 2; no new gross focal neurologic deficits Skin- warm & dry Results & Data ([facility]) Vital Signs (Past 12 Hours) Vital Signs Temp Pulse Pulse Resp BP BP Pulse Ox 10/22/19 08:00 36.7 C 63 18 152/70 H 99 10/22/19 07:00 59 L 10/22/19 02:30 62 10/22/19 01:59 36.8 C 69 16 145/45 H 154/54 H 97 10/22/19 01:58 10/22/19 01:45 36.8 C 69 16 145/45 H 97 10/22/19 01:22 62 18 143/43 H 96 10/21/19 23:28 60 18 137/82 97 Pulse Ox 10/22/19 08:00 10/22/19 07:00 10/22/19 02:30 10/22/19 01:59 10/22/19 01:58 97 10/22/19 01:45 10/22/19 01:22 10/21/19 23:28 Laboratory Results Laboratory Results - last 24 hr 10/21/19 10/21/19 10/21/19 23:28 23:28 23:28 WBC 4.77 L RBC 2.71 L Hgb 9.0 L Hct 27.6 L MCV 101.8 H MCH 33.2 MCHC 32.6 RDW Std Deviation 54.0 H RDW Coeff of Liss 14.5 Plt Count 145 MPV 9.8 Immature Gran % (Auto) 0.2 Neut % (Auto) 38.7 Lymph % (Auto) 47.4 [place] % (Auto) 9.9 Eos % (Auto) 3.4 Baso % (Auto) 0.4 Immature Gran # (Auto) 0.01 Neut # (Auto) 1.85 Lymph # (Auto) 2.26 [place] # (Auto) 0.47 Eos # (Auto) 0.16 Baso # (Auto) 0.02 PT 24.6 H INR 2.4 H APTT 38.7 H PTT Ratio 1.4 Sodium 137 Potassium 4.0 Chloride 105 Carbon Dioxide 28 Anion Gap 5.0 BUN 30 H Creatinine 1.64 H Est Cr Clr Drug Dosing 19.2 Est GFR ( Amer) 31.8 Est GFR (Non-Af Amer) 27.4 BUN/Creatinine Ratio 18.5 Glucose 102 H Calcium 8.4 L Magnesium 1.8 Troponin I < 0.015 TSH 0.606 10/22/19 10/22/19 10/22/19 05:54 05:54 05:54 WBC 4.56 L RBC 2.50 L Hgb 8.5 L Hct 25.9 L MCV 103.6 H MCH 34.0 MCHC 32.8 RDW Std Deviation 55.6 H RDW Coeff of Liss 14.7 H Plt Count 142 MPV 10.4 Immature Gran % (Auto) 0.2 Neut % (Auto) 44.2 Lymph % (Auto) 42.5 [place] % (Auto) 10.1 Eos % (Auto) 2.6 Baso % (Auto) 0.4 Immature Gran # (Auto) 0.01 Neut # (Auto) 2.01 Lymph # (Auto) 1.94 [place] # (Auto) 0.46 Eos # (Auto) 0.12 Baso # (Auto) 0.02 PT 26.7 H INR 2.7 H APTT PTT Ratio Sodium 137 Potassium 3.7 Chloride 105 Carbon Dioxide 27 Anion Gap 5.0 BUN 31 H Creatinine 1.58 H Est Cr Clr Drug Dosing 16.5 Est GFR ( Amer) 33.3 Est GFR (Non-Af Amer) 28.7 BUN/Creatinine Ratio 19.5 Glucose 81 Calcium 8.2 L Magnesium Troponin I TSH
[2019-10-22] MEDS: ISOSORBIDE DINITRATE 10 MG TAB PO SCH ×2 (09:22→12:05)
--- NOTE | 2019-10-22 11:37 | Discharge Summary ---
Date of Service October 22, 2019 Admission HPI Per Admitting Provider History obtained from patient, family, and records. 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 Recent confinement September 2019 sacral fracture secondary to fall. Patient discharged to [facility] for rehab. Recently discharge from rehab to home last week with patient's daughter as primary caregiver. Patient seen at the ER last October 15 for cough symptoms and low blood pressure. Flu swab was positive. Patient completed Tamiflu course. Patient cough symptoms improved. Patient daughter not feeling well the last few days. Seen at PCPs office this afternoon. Patient's daughter sent to the ER for evaluation of hypoxemia. ER admission recommended for patient daughter. Case management unable to find caregiver/placement for patient while daughter confined. Patient denies chest pain, S OB, headache symptoms. 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, lives with daughter Admission Exam Per Admitting Provider GENERAL: Comfortable, covered in blankets, pleasant, no respiratory distress SKIN: Pallor , warm HEENT: Pale palpebral conjunctivae, no ptosis, dry buccal mucosa NECK : Supple, no tenderness CHEST : Decreased breath sounds , no tenderness HEART : Bradycardic, systolic murmur ABDOMEN: Soft, nontender EXTREMITIES : Minimal LE swelling no LE tenderness, no other conspicuous deformities noted NEUROLOGIC : Coherent, no facial asymmetry, mild hearing impairment, no other gross focality Principal Diagnosis HYPERTENSIVE URGENCY, RECENT INFLUENZA INFECTION Discharge Exam General- oriented x 2, not in distress, speaks in sentences with no effort or accessory muscle use Eyes- anicteric Neck- no JVD Lungs- clear breath sounds bilaterally, no rales/wheezes Heart- normal rate, regular rhythm; no murmurs Abdomen- normal bowel sounds, nondistended, soft, nontender Extremities- no pretibial edema, no calf tenderness Neuro- alert, oriented x 2; no new gross focal neurologic deficits Skin- warm & dry Discharge Data Allergies Allergy/AdvReac Type Severity Reaction Status Date / Time Penicillins Allergy Intermediate HIVES Verified 10/21/19 22:50 hydromorphone [From Dilaudid] AdvReac Intermediate pruritus Verified 10/21/19 22:50 iron AdvReac Mild n&v, abd Verified 10/21/19 22:50 pain Venofer AdvReac Mild n&v, abd Verified 02/28/18 08:54 pain Consultations 10/21/19 21:48 ED Decision to Admit Stat 10/22/19 01:58 Consult Case Management - Discharge Planning Routine Hospital Course (1) Asymptomatic hypertensive urgency: systolic bp up to 160s on admission in the AM, improved to 120 no medication changes continue usual BP medications monitor chronic systolic heart failure (EF 30 to 35%, TTE 2018) euvolemic continue diuretics history of valvular heart disease (moderate aortic/mitral/tricuspid regurg itation) hx CAD/PVD as per records no cardiac symptoms 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 INR 2.7 check INR tomorrow, then regularly CRI, creatinine at baseline hypothyroidism, euthyroid chronic anemia, secondary to CKD, hemoglobin at baseline Recent flu status post Tamiflu Rx complete 2 more days of Cephalexin Functional disability continue PT/OT Disposition d/c to [facility] ff up with PCP in [facility] Total Time Total Time Spent Total Time Spent (In Minutes): 50 minutes Discharge Plan Discharge Items Patient Disposition: Transfer Residential Fac Reason For Visit: HTN URGENCY Discharge Diagnosis: HYPERTENSIVE URGENCY, RESOLVED; RECENT INFLUENZA INFECTION Condition on Discharge: Good Activity: Resume your previous activity Activity Comment: ALWAYS WITH ASSISTANCE, ROLLING WALKER, FALL PRECAUTIONS, PT/OT Non-emergency contact: Primary Care Provider Call non-emergency contact if: you have any medication questions and you have a fever Follow-up/Referrals: Yogesh Quevedo MD [Primary Care Provider] - Diet: Heart Healthy Addtl Attending Provider Instructions: PLEASE ISOLATE, PATIENT RECENTLY TREATED FOR INFLUENZA. INR CHECK TOMORROW, THEN REGULARLY. DOSE COUMADIN ACCORDINGLY. MONITOR BP. PLEASE REFER TO ACCOMPANYING HOSPITAL DISCHARGE SUMMARY FOR FURTHER RECOMMENDATIONS. Pending Studies at Discharge: Yes Studies:: INR CHECK TOMORROW 10/23/2019, THEN REGULARLY Stand-Alone Forms: My [facility] Skilled Items Patient informed of condition?: Yes DNR: No Discharge Level of Care: Skilled Communicable Disease: Yes Discharge Prognosis: Stable Lines: None Urinary Catheter: No Medications and DC Order Prescriptions: New cephalexin [Keflex] 250 mg capsule 250 mg PO BID 2 Days Qty: 4 RF: 0 Continued levothyroxine 88 mcg tablet 88 mcg PO DAILYBB RF: 0 ranitidine HCl 150 mg tablet 150 mg PO BID RF: 0 isosorbide dinitrate 10 mg tablet 10 mg PO TID RF: 0 aspirin 81 mg Tablet,Chewable 81 mg PO QAM RF: 0 pantoprazole 40 mg Tablet,Delayed Release (Dr/Ec) 40 mg PO DAILYBB RF: 0 carvedilol 3.125 mg tablet 3.125 mg PO BID RF: 0 amlodipine [Norvasc] 5 mg Tablet 5 mg PO DAILY 30 Days Qty: 30 RF: 2 lidocaine 5 % Adhesive Patch,Medicated 1 patch transdermal QAM 7 Days Qty: 7 RF: 1 atorvastatin 10 mg Tablet 10 mg PO PM RF: 0 cholecalciferol (vitamin D3) 1,000 unit Capsule 1,000 unit PO QAM RF: 0 docusate sodium 100 mg Capsule 100 mg PO BID RF: 0 buspirone 5 mg tablet 5 mg PO BID RF: 0 cetirizine 10 mg Tablet 10 mg PO QAM PRN (Reason: Rash) RF: 0 nitroglycerin 0.3 mg tablet, sublingual 0.3 mg sublingual DIRECTED PRN (Reason: Chest Pain) RF: 0 triamcinolone acetonide 0.1 % cream 1 applic topical BID PRN (Reason: Rash) RF: 0 hydroxyzine HCl 10 mg/5 mL Solution 5 mg PO Q6H PRN (Reason: Itching) RF: 0 polyethylene glycol 3350 [Miralax] 17 gram/dose Powder 17 g PO DAILY PRN (Reason: Constipation) RF: 0 Procrit 10,000 unit/mL Solution 10,000 unit subcut UD RF: 0 escitalopram oxalate [Lexapro] 20 mg Tablet 20 mg PO DAILY RF: 0 Nepro Carb Steady 0.08 gram-1.8 kcal/mL Liquid 1 ea PO BID RF: 0 furosemide 40 mg tablet 40 mg PO MOWEFR RF: 0 warfarin [Coumadin] 2 mg tablet 2 mg PO DAILY RF: 0 Biofreeze (menthol) 4 % Gel 1 applic TOPICAL BID PRN (Reason: APPLY TO MUSCLE PAIN AREA) RF: 0 Discontinued oseltamivir [Tamiflu] 30 mg capsule 30 mg PO DAILY RF: 0 Discharge Orders: Discharge Order (Routine); Ordered 10/22/19 Ordered By: Abimael Bonds Admission Data Admit Date/Time: 10/21/19 22:56 Attending Provider: Abimael Bonds Admit Provider: Hao Altamirano Primary Care Provider: Yogesh Quevedo Other Providers: Hao Altamirano
[2019-10-22] MEDS ORDERED: ATORVASTATIN 10 MG TAB PO SCH (21:00)
[2019-10-24] MEDS ORDERED: FUROSEMIDE 40 MG TAB PO SCH (09:00)
== END 2019-10-22 14:40 ==
LOC: 2N 18:28 → ED 18:28 → SUATTDRO 22:56 → 2N 10-22 01:31